=== PATIENT | male | born 1970 | race Caucasian/White ===

== ENCOUNTER 2016-11-03 18:52 | Inpatient (IN) | payer OTHER ==
[~2016-11-03] VITALS: Ht 172.7 cm; Wt 135.0 kg
[~2016-11-03 18:52] MED LIST: ALLO300T2 PO; ASPEC81 PO; COLC0.6T54 PO; FRS/40 PO; INSU1.2I SC; LCTX PO; LEVA1.255 NEB; MAGN400T6 PO; METO50TA16 PO; NRN600 PO; NVLGI/PEN SC; NYST100010 TOP; OXYC-164 PO; POTA20TA13 PO; PRT/40 PO; RRIPRATNEB NEB; WARF-246 PO
[2016-11-03 20:11] LABS: URINE APPEARANCE CLOUDY (CLEAR); URINE BILIRUBIN NEG (NEG); URINE COLOR YELLOW; URINE EPITHELIAL CELL AUTO 20-30 /lpf (0-5); URINE NITRITE NEG (NEG); URINE SPECIFIC GRAVITY 1.009 (1.000-1.030); UROBILINOGEN NEG (NEG); ZZUR CULT IF INDIC CLEAN CATCH YES
[2016-11-03 20:14] LABS: BASO % 0.4 %; BASO ABS # 0.04 K/uL (0-0.2); COMPLETE YES; EOS % 1.6 %; HEMATOCRIT 48.1 % (42-52); IG% 0.3 %; LYMPH ABS # 1.22 K/uL (1.2-3.4); MEAN CELL VOLUME 92.7 fL (80-100); MEAN CORPUSCULAR HEMOGLOBIN 31.8 pg (25-34); MEAN CORPUSCULAR HGB CONC 34.3 g/dl (32-36); MEAN PLATELET VOLUME 9.7 fL (7.4-10.4); MONO % 4.5 %; NEUT % 82.2 %; PLATELET COUNT 176 K/uL (130-400); RED BLOOD COUNT 5.19 M/uL (4.7-6.1)
[2016-11-03 20:16] LABS: MANUAL MICROSCOPIC REQUIRED? NO; REVIEW REQ? NO
[2016-11-03] MEDS ORDERED: METO25TA56 PO (20:58)
[2016-11-03 21:02] LABS: INR 1.9 (0.9-1.1); PARTIAL THROMBOPLASTIN RATIO 1.5; PROTHROMBIN TIME (PATIENT) 21.1 SECONDS (9.0-12.0)
--- NOTE | 2016-11-03 21:35 | EMERGENCY ROOM VISIT NOTE ---
ED Visit Note First contact with patient: 19:05 Patient was seen by our PA/HEAD OF [employer]. I was involved in the patient's care and did evaluate the patient myself. I was involved in the care throughout the ER stay. The patient presents with hematuria. He is on anticoagulants. A workup for hematuria has been ordered, the results are pending. Abdominal and pelvis CT is pending. The patient does not seem in distress, he is not febrile. If the patient's workup is benign, he will need to follow with urology for further testing, possibly a cystoscopy. If his workup is positive, admission may be required.
--- NOTE | 2016-11-03 21:38 | DIAGNOSTIC IMAGING REPORT ---
ABDOMEN AND PELVIS CT WITHOUT CONTRAST CT DOSE: 1994.92 mGy.cm HISTORY: Hematuria, right flank pain TECHNIQUE: Multiaxial CT images of the abdomen and pelvis were performed without the use of intravenous and oral contrast according to the standard department stone protocol. COMPARISON STUDY: Abdomen and pelvis CT 01/19/2016. FINDINGS: Bibasilar densities likely represent atelectasis. This remains unchanged. Poststernotomy changes. Multiple nondilated small bowel loops adherent to be anterior abdominal wall. Evidence for prior multiple midline incisions. Scarlike density within the right groin. Left-sided sacral decubitus ulcer with a fluid tract abutting the left posterior sacrum. There suggestive of a small focal erosion within the left posterior sacrum suggestive of osteomyelitis. Hepatic steatosis. The gallbladder is decompressed. The spleen, adrenal glands, and pancreas are unremarkable. Bilateral nephrolithiasis, unchanged. Mild fullness within the right renal collecting system and proximal right ureter without maddy hydronephrosis. There are no ureteral calculi identified. Bladder wall thickening, unchanged. Subtotal colectomy with the left lower quadrant colostomy containing the residual sigmoid colon. There is also a right lower quadrant ileostomy with a small parastomal hernia. No definite bowel wall thickening or obstruction. However, there are suboptimal evaluation for bowel pathology due to the lack of intravenous and oral contrast. IMPRESSION: 1. Bilateral nephrolithiasis. Mild fullness within the right renal collecting system without maddy hydronephrosis. No ureteral calculi identified. 2. Postoperative changes as described above. No definite bowel wall thickening or obstruction. 3. Left-sided sacral decubitus ulcer with a small fluid tract abutting the left posterior sacrum. There appears to be focal erosion of the left posterior sacrum suggestive of osteomyelitis. 4. Additional findings as described above. Electronically signed by: Ronnie Abad M.D. 11/03/2016 9:36 PM Dictated Date/Time: 11/03/2016 9:27 PM
[2016-11-03 21:50] LABS: BUN/CREATININE RATIO 21.3 (10-20); CALCIUM 9.1 mg/dl (8.5-10.1); CKMB/CK RATIO 3.2 (0-3.0); CREATININE 1.2 mg/dl (0.60-1.40)
[2016-11-03] MEDS ORDERED: PIPERACILLIN/TAZOBACTAM 4.5 GM/100ML D5W IV STA (23:02)
[2016-11-03] MEDS ORDERED: SODIUM CHLORIDE 0.9% 1000ML 1,000 ML IV STA (23:56)
[2016-11-04] VITALS (7 sets, daily range): BP systolic 120–146; BP diastolic 74–97; PULSE 81–94; TEMP 36.7–36.8; O2SAT 93–96; Ht 172.7 cm; Wt 135.0 kg
[2016-11-04] MEDS ORDERED: NYSTATIN POWDER 15GM BTL EXT PRN (00:30)
[2016-11-04] MEDS ORDERED: MAGNESIUM HYDROXIDE SUSP 30 ML UDC PO PRN (00:45)
[2016-11-04] MEDS ORDERED: POLYETHYLENE (MIRALAX) 17 GM PACK PO PRN (00:45)
[2016-11-04] MEDS ORDERED: ALUMINUM/MAGNESIUM/SIMETH (MAALOX MAX) 30 ML UDC PO PRN (00:45)
[2016-11-04] MEDS ORDERED: ONDANSETRON INJ 2 MG/ML 2 ML VIAL IV PRN (00:45)
[2016-11-04] MEDS ORDERED: ACETAMINOPHEN 325 MG TAB PO PRN (00:45)
--- NOTE | 2016-11-04 00:50 | History and Physical ---
History & Physical Date & Time of Service: Nov 04, 2016 at 00:37 Chief Complaint: Blood In Urine Primary Care Physician: Demarcus Nicholson D.O. 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 Pt presents with a chief complaint of hematuria. He has not had fevers or rigors but states that when he develops UTIs he may quickly become septic and requires IV antibiotics. He has been life-flighted to [place] on [address] of the abdomen and pelvis was obtained in the ER possibly owing to his hematuria. This revealed B/L nephrolithiasis and mild renal fullness without evidence of obstruction. Additionally and incidentally there may be osteomyelitis associated with a sacral decub which clinically did not appear significant. The pt does not appear toxic but will be admitted for IV antibiotics pending culture results due to his histroy. 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 3) CVA - R weakness and paraplegia 4) Morbid obesity 5) Hep C 6) Gout 7) Severe pulmonary hypertension 8) PE 9) R sided CHF 10) DM 2 Surgical Problems: (1) H/O brain surgery Status: Resolved (2) Hx of CABG Status: Resolved (3) S/P cardiac cath Status: Chronic (4) S/P colostomy Status: Chronic 5) Mitral valve repair - 06/20/16 Family History Cancer Diabetes mellitus Gallbladder disease Heart disease Hypertension Kidney disease Lung disease Social History Smoking Status: Never Smoker Drug Use: other Marital Status: Housing status: lives with family Occupational Status: disabled Immunizations History of Influenza Vaccine: No History of Tetanus Vaccine?: Yes Tetanus Immunization Date: Jun 01, 2007 History of Pneumococcal: No History of Hepatitis B Vaccine: Unknown Multi-Drug Resistant Organisms History of MDRO: Yes Type of MDRO: MRSA Allergies Coded Allergies: No Known Allergies (Verified , 11/03/16) Home Medications Scheduled Allopurinol (Zyloprim), 300 MG PO DAILY Aspirin (Aspirin EC Low Dose), 81 MG PO QAM Colchicine (Colchicine), 0.6 MG PO DAILY Furosemide (Lasix), 40 MG PO DAILY Gabapentin (Gabapentin), 600 MG PO TID Insulin Aspart (Novolog Flexpen), 40 UNITS SC DAILY Insulin Glargine (Toujeo Solostar), 100 UNITS SC BID Ipratropium Florence (Ipratropium Florence), 0.5 MG NEB Q6HWA Lactobacillus Acidophilus (Lactinex), 1 TAB PO DAILY Magnesium Oxide (Mag-Ox), 400 MG PO DAILY Metoprolol Tartrate (Lopressor) (Lopressor), 25 MG PO DAILY Pantoprazole (Pantoprazole Sodium), 40 MG PO DAILY Potassium Chloride Microencaps (Potassium Chloride Er), 20 MEQ PO DAILY Warfarin Sodium (Warfarin Sodium), 5 MG PO DAILY Scheduled PRN Ipratropium [place] (Ipratropium Florence), 2.5 MG NEB Q2-4HRS PRN for SOB/ Wheezing Levalbuterol Hcl (Levalbuterol), 1.25 MG NEB Q6HWA PRN Levalbuterol Hcl (Levalbuterol), 1.25 MG NEB Q2-4HRS PRN for SOB/Wheezing Nystatin (Topical) (Nystop), 1 APPLN TOP BID PRN for Affected Skin Folds Oxycodone Hcl (Oxycodone Hcl), 10 MG PO 5XD PRN for Pain Review of Systems Constitutional: No chills, No fever, No sweats Eyes: No eye pain, No worsening of vision ENT: No hearing loss, No nasal symptoms, No unusual epistaxis Respiratory: No cough, No sputum, No wheezing Cardiovascular: No PND, No chest pain, No orthopnea Abdomen: No nausea, No pain, No vomiting Musculoskeletal: No joint pain, No muscle pain Genitourinary - Male: + dysuria, + hematuria, No urinary frequency, No urinary urgency Neurologic: + paralysis (chronic LE paralysis), No memory loss Psychiatric: No anhedonism, No depression symptoms Endocrine: No fatigue Hematologic / Lymphatic: + abnormal bleeding/bruising Integumentary: No rash Allergic / Immunologic: No environmental allergies Physical Exam Vital Signs Date Time Temp Pulse Resp B/P Pulse Ox O2 Delivery O2 Flow Rate FiO2 11/03/16 23:21 86 18 98/60 92 Room Air 11/03/16 21:13 87 18 119/70 93 Room Air 11/03/16 18:59 37.1 89 18 136/89 95 Room Air General Appearance: WD/WN, no apparent distress, + pertinent finding (Morbidly obese young make in no distress) Head: normocephalic, atraumatic Eyes: normal inspection, PERRL, EOMI ENT: normal ENT inspection, hearing grossly normal, TMs normal, pharynx normal Neck: supple, no adenopathy, thyroid normal Respiratory/Chest: chest non-tender, lungs clear Cardiovascular: regular rate, rhythm, no murmur, normal peripheral pulses Abdomen/GI: normal bowel sounds, non tender, soft Back: normal inspection, no CVA tenderness Extremities/Musculoskelatal: no calf tenderness, normal capillary refill, + pedal edema 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, oriented x 3, + pertinent finding ( Chronic R weakness and LE paralysis) Skin: normal color, warm/dry, no rash (Stage 1 decub ulcer - no cratering or excoriation - surface) Diagnostics Laboratory Results Results Past 24 Hours Test 11/03/16 19:45 Range/Units White Blood Count 11.10 4.8-10.8 K/uL Red Blood Count 5.19 4.7-6.1 M/uL Hemoglobin 16.5 14.0-18.0 g/dL Hematocrit 48.1 42-52 % Mean Corpuscular Volume 92.7 80-100 fL Mean Corpuscular Hemoglobin 31.8 25-34 pg Mean Corpuscular Hemoglobin Concent 34.3 32-36 g/dl Platelet Count 176 130-400 K/uL Mean Platelet Volume 9.7 7.4-10.4 fL Neutrophils (%) (Auto) 82.2 % Lymphocytes (%) (Auto) 11.0 % Monocytes (%) (Auto) 4.5 % Eosinophils (%) (Auto) 1.6 % Basophils (%) (Auto) 0.4 % Neutrophils # (Auto) 9.13 1.4-6.5 K/uL Lymphocytes # (Auto) 1.22 1.2-3.4 K/uL Monocytes # (Auto) 0.50 0.11-0.59 K/uL Eosinophils # (Auto) 0.18 0-0.5 K/uL Basophils # (Auto) 0.04 0-0.2 K/uL RDW Standard Deviation 55.2 36.4-46.3 fL RDW Coefficient of Variation 16.3 11.5-14.5 % Immature Granulocyte % (Auto) 0.3 % Immature Granulocyte # (Auto) 0.03 0.00-0.02 K/uL Prothrombin Time 21.1 9.0-12.0 SECONDS Prothromb Time International Ratio 1.9 0.9-1.1 Activated Partial Thromboplast Time 37.7 21.0-31.0 SECONDS Partial Thromboplastin Ratio 1.5 Urine Color YELLOW Urine Appearance CLOUDY CLEAR Urine pH 5.0 4.5-7.5 Urine Specific Economy 1.009 1.000-1.030 Urine Protein 2+ NEG Urine Glucose (UA) NEG NEG Urine Ketones NEG NEG Urine Occult Blood 3+ NEG Urine Nitrite NEG NEG Urine Bilirubin NEG NEG Urine Urobilinogen NEG NEG Urine Leukocyte Esterase MODERATE NEG Urine WBC (Auto) >30 0-5 /hpf Urine RBC (Auto) 10-30 0-4 /hpf Urine Hyaline Casts (Auto) 1-5 0-5 /lpf Urine Epithelial Cells (Auto) 20-30 0-5 /lpf Urine Bacteria (Auto) NEG NEG Sodium Level 138 136-145 mmol/L Potassium Level 4.0 3.5-5.1 mmol/L Chloride Level 104 98-107 mmol/L Carbon Dioxide Level 22 21-32 mmol/L Anion Gap 12.0 3-11 mmol/L Blood Urea Nitrogen 26 7-18 mg/dl Creatinine 1.20 0.60-1.40 mg/dl Est Creatinine Clear Calc Drug Dose 105.6 ml/min Estimated GFR () 84.7 Estimated GFR (Non- 73.1 BUN/Creatinine Ratio 21.3 10-20 Random Glucose 168 70-99 mg/dl Calcium Level 9.1 8.5-10.1 mg/dl Total Creatine Kinase 126 39-308 U/L Creatine Kinase MB 4.0 0.5-3.6 ng/ml Creatine Kinase MB Ratio 3.2 0-3.0 Microbiology Results 11/03/16 Urine Culture, Received Pending Diagnostic Radiology CT abdomen/pelvis 1. Bilateral nephrolithiasis. Mild fullness within the right renal collecting system without maddy hydronephrosis. No ureteral calculi identified. 2. Postoperative changes as described above. No definite bowel wall thickening or obstruction. 3. Left-sided sacral decubitus ulcer with a small fluid tract abutting the left posterior sacrum. There appears to be focal erosion of the left posterior sacrum suggestive of osteomyelitis. 4. Additional findings as described above. 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 Pt presents with a chief complaint of hematuria. He has not had fevers or rigors but states that when he develops UTIs he may quickly become septic and requires IV antibiotics. A CT of the abdomen and pelvis was obtained in the ER possibly owing to his hematuria. This revealed B/L nephrolithiasis and mild renal fullness without evidence of obstruction. Additionally and incidentally there may be osteomyelitis associated with a sacral decub which clinically did not appear significant. 1) UTI, hematuria - Will treat with Zosyn pending culture results - there is no evidence of obstruction however if his hematuria does not clear Urology should be consulted. We may need to hold COumadin although his INR is not particularly high. 2) Sacral decub - evidence of osteomyelitis on CT - surgery consulted - he does have a history of a decub which he states he developed in [place] during a prolonged admission. This is more likely chronic although it may need treatment regardless. 3) Chronic respiratory failure - cont 02, CPAP, breathing treatments as needed. 4) CHF - 2/2 pulmonary HTN - Cont diuretics 5) History of PE - INR therapeutic - cont Coumadin Full code - Coumadin anticoagulation Total time for this admit including review of labs, records, imaging, meds - discussion with pts and ER attending - 40 min Level of Care Med/Surg Resuscitation Status FULL RESUSCITATION VTE Prophylaxis Given or contraindicated: Warfarin (Coumadin)
--- NOTE | 2016-11-04 00:59 | EMERGENCY ROOM VISIT NOTE ---
History First contact with patient: 19:05 Chief Complaint: URINARY SYMPTOMS Stated Complaint: BLOOD IN URINE Nursing Triage Summary: Pt reports his urine was discolored and he went to urgent care. Told he had blood and WBCS in urine. Per familys urging pt came to ED for further testing. History of Present Illness The patient is a 46 year old male who presents to the Emergency Room via private vehicle with complaints of "blood in urine". The patient states that he was at the acute care in [place] as he had noticed blood in his urine today around 12:30 PM. He states that he did have testing done there but was informed that it would take some time to have the results therefore decided to come to the emergency department for more definitive management. He is on Coumadin. He states that the urine has been dark, with a lot of blood in it since that time. He feels that there've been also consult blood in the urine sample. He does state that he has had a lot of urinary tract infections in the past. He does have a history of endocarditis. He believes there is a small amount of pain overlying the right posterior kidney region. At this time he denies any penile pain, abdominal pain, chest pain, shortness of breath, fevers , chills, testicular pain, penile discharge. Review of Systems A complete 10-point Review of Systems was discussed with the patient, with pertinent positives and negatives listed in the History of Present Illness. All remaining Review of Systems questions can be considered negative unless otherwise specified. Past Medical/Surgical History Medical Problems: (1) Bilateral lower leg cellulitis (2) CHF (congestive heart failure) (3) Coagulopathy (4) Diabetic nephropathy (5) DM type 2 (diabetes mellitus, type 2) (6) E coli infection (7) Edema of right lower extremity (8) Endocarditis (9) Gout (10) Gout (11) Hematuria (12) Hepatitis C (13) Leg pain, bilateral (14) Nocturnal hypoxemia (15) Paraplegia (16) Pneumonia (17) Pneumonia (18) Pulmonary emboli (19) Shortness of breath (20) Stroke (21) Supratherapeutic INR (22) UTI (urinary tract infection) Surgical Problems: (1) H/O brain surgery (2) Hx of CABG (3) S/P cardiac cath (4) S/P colostomy Family History Cancer Diabetes mellitus Gallbladder disease Heart disease Hypertension Kidney disease Lung disease Social History Smoking Status: Never Smoker Alcohol Use: none Drug Use: other Marital Status: Housing Status: lives with family Occupation Status: disabled Current/Historical Medications Scheduled Allopurinol (Zyloprim), 300 MG PO DAILY Aspirin (Aspirin EC Low Dose), 81 MG PO QAM Colchicine (Colchicine), 0.6 MG PO DAILY Furosemide (Lasix), 40 MG PO DAILY Gabapentin (Gabapentin), 600 MG PO TID Insulin Aspart (Novolog Flexpen), 40 UNITS SC DAILY Insulin Glargine (Toujeo Solostar), 100 UNITS SC BID Ipratropium Warthen (Ipratropium Warthen), 0.5 MG NEB Q6HWA Lactobacillus Acidophilus (Lactinex), 1 TAB PO DAILY Magnesium Oxide (Mag-Ox), 400 MG PO DAILY Metoprolol Tartrate (Lopressor) (Lopressor), 25 MG PO DAILY Pantoprazole (Pantoprazole Sodium), 40 MG PO DAILY Potassium Chloride Microencaps (Potassium Chloride Er), 20 MEQ PO DAILY Warfarin Sodium (Warfarin Sodium), 5 MG PO DAILY Scheduled PRN Ipratropium [place]arthen (Ipratropium [place]), 2.5 MG NEB Q2-4HRS PRN for SOB/ Wheezing Levalbuterol Hcl (Levalbuterol), 1.25 MG NEB Q6HWA PRN Levalbuterol Hcl (Levalbuterol), 1.25 MG NEB Q2-4HRS PRN for SOB/Wheezing Nystatin (Topical) (Nystop), 1 APPLN TOP BID PRN for Affected Skin Folds Oxycodone Hcl (Oxycodone Hcl), 10 MG PO 5XD PRN for Pain Allergies Coded Allergies: No Known Allergies (Verified , 11/03/16) Physical Exam Vital Signs Date Time Temp Pulse Resp B/P Pulse Ox O2 Delivery O2 Flow Rate FiO2 11/03/16 23:21 86 18 98/60 92 Room Air 11/03/16 21:13 87 18 119/70 93 Room Air 11/03/16 18:59 37.1 89 18 136/89 95 Room Air Physical Exam VITAL SIGNS - Vital signs and nursing notes were reviewed. Patient is afebrile , normotensive, non-tachycardic and is saturating well on room air at 95%. GENERAL -46-year-old male appearing his stated age who is in no acute distress. Communicates well with provider and answers questions appropriately. SKIN - Without rashes. No petechial rashes. The buttocks region does reveal a left medial healing ulcer. There is slight erythema without evidence of drainage. HEAD - NC/AT. EYES - Sclera anicteric. Palpebral conjunctiva pink and moist with no injection noted. EARS - No deformities of external structures noted on gross examination bilaterally. NOSE - Midline and without cyanosis. No epistaxis or purulent drainage noted. MOUTH/OROPHARYNX - Without perioral cyanosis. LUNGS - Chest wall symmetric without accessory muscle use, intercostals retractions, or central cyanosis. Normal vesicular breath sounds CTA B/L. No wheezes, rales, or rhonchi appreciated. CARDIAC - RRR with S1/S2. No murmur, rubs, or gallops appreciated. ABDOMEN - Abdominal contour without pulsations or visible masses. BS normoactive all four quadrants. No tenderness, palpable masses, hepatosplenomegaly, or ascites noted. EXTREMITIES - No clubbing or peripheral cyanosis. No pretibial edema present. Medical Decision & Procedures ER Provider Diagnostic Interpretation: ABDOMEN AND PELVIS CT WITHOUT CONTRAST CT DOSE: 1994.92 mGy.cm HISTORY: Hematuria, right flank pain TECHNIQUE: Multiaxial CT images of the abdomen and pelvis were performed without the use of intravenous and oral contrast according to the standard department stone protocol. COMPARISON STUDY: Abdomen and pelvis CT 01/19/2016. FINDINGS: Bibasilar densities likely represent atelectasis. This remains unchanged. Poststernotomy changes. Multiple nondilated small bowel loops adherent to be anterior abdominal wall. Evidence for prior multiple midline incisions. Scarlike density within the right groin. Left-sided sacral decubitus ulcer with a fluid tract abutting the left posterior sacrum. There suggestive of a small focal erosion within the left posterior sacrum suggestive of osteomyelitis. Hepatic steatosis. The gallbladder is decompressed. The spleen, adrenal glands, and pancreas are unremarkable. Bilateral nephrolithiasis, unchanged. Mild fullness within the right renal collecting system and proximal right ureter without maddy hydronephrosis. There are no ureteral calculi identified. Bladder wall thickening, unchanged. Subtotal colectomy with the left lower quadrant colostomy containing the residual sigmoid colon. There is also a right lower quadrant ileostomy with a small parastomal hernia. No definite bowel wall thickening or obstruction. However, there are suboptimal evaluation for bowel pathology due to the lack of intravenous and oral contrast. IMPRESSION: 1. Bilateral nephrolithiasis. Mild fullness within the right renal collecting system without maddy hydronephrosis. No ureteral calculi identified. 2. Postoperative changes as described above. No definite bowel wall thickening or obstruction. 3. Left-sided sacral decubitus ulcer with a small fluid tract abutting the left posterior sacrum. There appears to be focal erosion of the left posterior sacrum suggestive of osteomyelitis. 4. Additional findings as described above. Electronically signed by: Ronnie Abad M.D. 11/03/2016 9:36 PM Dictated Date/Time: 11/03/2016 9:27 PM Laboratory Results 11/03/16 19:45 Red Blood Count 5.19, Mean Corpuscular Volume 92.7, Mean Corpuscular Hemoglobin 31.8, Mean Corpuscular Hemoglobin Concent 34.3, Mean Platelet Volume 9.7, Neutrophils (%) (Auto) 82.2, Lymphocytes (%) (Auto) 11.0, Monocytes (%) (Auto) 4.5, Eosinophils (%) (Auto) 1.6, Basophils (%) (Auto) 0.4, Neutrophils # (Auto) 9.13, Lymphocytes # (Auto) 1.22, Monocytes # (Auto) 0.50, Eosinophils # (Auto) 0.18, Basophils # (Auto) 0.04 11/03/16 19:45 Test 11/03/16 19:45 White Blood Count 11.10 K/uL (4.8-10.8) Red Blood Count 5.19 M/uL (4.7-6.1) Hemoglobin 16.5 g/dL (14.0-18.0) Hematocrit 48.1 % (42-52) Mean Corpuscular Volume 92.7 fL (80-100) Mean Corpuscular Hemoglobin 31.8 pg (25-34) Mean Corpuscular Hemoglobin Concent 34.3 g/dl (32-36) Platelet Count 176 K/uL (130-400) Mean Platelet Volume 9.7 fL (7.4-10.4) Neutrophils (%) (Auto) 82.2 % Lymphocytes (%) (Auto) 11.0 % Monocytes (%) (Auto) 4.5 % Eosinophils (%) (Auto) 1.6 % Basophils (%) (Auto) 0.4 % Neutrophils # (Auto) 9.13 K/uL (1.4-6.5) Lymphocytes # (Auto) 1.22 K/uL (1.2-3.4) Monocytes # (Auto) 0.50 K/uL (0.11-0.59) Eosinophils # (Auto) 0.18 K/uL (0-0.5) Basophils # (Auto) 0.04 K/uL (0-0.2) RDW Standard Deviation 55.2 fL (36.4-46.3) RDW Coefficient of Variation 16.3 % (11.5-14.5) Immature Granulocyte % (Auto) 0.3 % Immature Granulocyte # (Auto) 0.03 K/uL (0.00-0.02) Prothrombin Time 21.1 SECONDS (9.0-12.0) Prothromb Time International Ratio 1.9 (0.9-1.1) Activated Partial Thromboplast Time 37.7 SECONDS (21.0-31.0) Partial Thromboplastin Ratio 1.5 Urine Color YELLOW Urine Appearance CLOUDY (CLEAR) Urine pH 5.0 (4.5-7.5) Urine Specific [place] 1.009 (1.000-1.030) Urine Protein 2+ (NEG) Urine Glucose (UA) NEG (NEG) Urine Ketones NEG (NEG) Urine Occult Blood 3+ (NEG) Urine Nitrite NEG (NEG) Urine Bilirubin NEG (NEG) Urine Urobilinogen NEG (NEG) Urine Leukocyte Esterase MODERATE (NEG) Urine WBC (Auto) >30 /hpf (0-5) Urine RBC (Auto) 10-30 /hpf (0-4) Urine Hyaline Casts (Auto) 1-5 /lpf (0-5) Urine Epithelial Cells (Auto) 20-30 /lpf (0-5) Urine Bacteria (Auto) NEG (NEG) Anion Gap 12.0 mmol/L (3-11) Est Creatinine Clear Calc Drug Dose 105.6 ml/min Estimated GFR () 84.7 Estimated GFR (Non- 73.1 BUN/Creatinine Ratio 21.3 (10-20) Calcium Level 9.1 mg/dl (8.5-10.1) Total Creatine Kinase 126 U/L (39-308) Creatine Kinase MB 4.0 ng/ml (0.5-3.6) Creatine Kinase MB Ratio 3.2 (0-3.0) Medications Administered Medications (Trade) Dose Ordered Sig/Alvaro Route Start Time Stop Time Status Last Admin Dose Admin Piperacillin Sod/ Tazobactam Sod 4.5 gm 4.5 gm NOW STAT IV 11/03/16 23:02 11/03/16 23:08 DC 11/03/16 23:21 4.5 GM Sodium Chloride (Nss 1000ml) 1,000 ml @ 200 mls/hr Q5H STAT IV 11/03/16 23:56 11/04/16 04:55 11/04/16 00:25 200 MLS/HR Medical Decision Patient was seen and evaluated as above. After obtaining a thorough history and physical examination, IV access was initiated and the above workup was performed. The patient presents with painless hematuria, extensive history of UTI as well as being on Coumadin. Laboratory results reveal leukocytosis at 11.1, no significant anemia. INR is subtherapeutic at 1.9. PRP reveals elevated BUN at 26, random glucose at 168, and CK-MB elevated at 4.0. Patient denies chest pain. Urine does reveal 3+ occult blood, moderate leukocyte esterase, greater than 30 white blood cells, 10-20 red blood cells, with evidence of epithelial cells. Patient's abdomen and pelvis CT reveals Bilateral nephrolithiasis. Mild fullness within the right renal collecting system without maddy hydronephrosis. No ureteral calculi identified and Left- sided sacral decubitus ulcer with a small fluid tract abutting the left posterior sacrum. There appears to be focal erosion of the left posterior sacrum suggestive of osteomyelitis. The case was also discussed with my attending. Because of the potential osteomyelitis, concern for early pyelonephritis with urinary tract infection, subtherapeutic INR and painless hematuria given the patient's chronic comorbidities as well as past history of rapid progression to sepsis I do believe that inpatient admission is warranted. 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 He was provided with the option, but ultimately decided to stay for further evaluation and management. I do believe this is reasonable. He was given 4.5 grams of Zosyn for his suspected osteomyelitis from. Treatment, as well as potential kidney infection. I did discuss the case with the admitting team, specifically Dr. Perez, who personally evaluated the patient and agreed to admit the patient. Please refer further evaluation and management regarding his stay. I did elect to order 1 L of normal saline at 200 mL's per hour to help hydrate the patient. In the evaluation treatment this patient the following differential diagnoses were entertained: UTI, pyelonephritis, hemorrhagic cystitis, bladder mass, renal calculi, supratherapeutic INR, sepsis, decubitus ulcer, osteomyelitis, among others. Impression Primary Impression: Urinary tract infection Additional Impressions: Hematuria Subtherapeutic anticoagulation Decubitus skin ulcer osteomyelitis suggested on CT scan Departure Information Dispostion Admitted as an inpatient Condition FAIR Referrals Demarcus Nicholson D.O. (PCP) Patient Instructions My [facility] Problem Qualifiers
[2016-11-04] MEDS ORDERED: LEVALBUTEROL 1.25MG/0.5ML NEB INH PRN (01:30)
[2016-11-04] MEDS ORDERED: PIPERACILL/TAZOBAC CONSULT ACTIVE PRN (02:45)
[2016-11-04] MEDS ORDERED: NURSING VERBAL MED ORDER ONE (03:45)
[2016-11-04] MEDS: DAPTOmycin IV 550 MG in SODIUM CHLORIDE 0.9% 50ML 50 ML IV SCH (03:45)
[2016-11-04] MEDS ORDERED: WARFARIN SOD 5 MG TAB PO ONE (04:00)
[2016-11-04] MEDS ORDERED: INSULIN ASPART 100 UNITS/ML 3 ML PEN SC SCH (04:45)
[2016-11-04] MEDS ORDERED: PHARMACY GLYCEMIC MGMT CONSULT PRN (04:45)
--- NOTE | 2016-11-04 04:46 | Pharmacy Progress Note ---
Glycemic Control Intl Consult Date of Service Nov 04, 2016. Scope Glycemic Pharmacist consulted by Dr Whiting on 11/04/16 for glycemic control and to write orders per [facility] inpatient glycemic control protocol Objective Weight (Kilograms): 135.000 Accuchecks BSG (last 24hrs): Test 11/03/16 19:45 Random Glucose 168 mg/dl (70-99) Laboratory Data (last 24hrs) Test 11/03/16 19:45 Anion Gap 12.0 mmol/L BUN/Creatinine Ratio 21.3 Blood Urea Nitrogen 26 mg/dl Creatinine 1.20 mg/dl Potassium Level 4.0 mmol/L Sodium Level 138 mmol/L White Blood Count 11.10 K/uL Red Blood Count 5.19 M/uL Hemoglobin 16.5 g/dL Hematocrit 48.1 % Mean Corpuscular Volume 92.7 fL Mean Corpuscular Hemoglobin 31.8 pg Mean Corpuscular Hemoglobin Concent 34.3 g/dl Platelet Count 176 K/uL Mean Platelet Volume 9.7 fL Neutrophils (%) (Auto) 82.2 % Lymphocytes (%) (Auto) 11.0 % Monocytes (%) (Auto) 4.5 % Eosinophils (%) (Auto) 1.6 % Basophils (%) (Auto) 0.4 % Neutrophils # (Auto) 9.13 K/uL Lymphocytes # (Auto) 1.22 K/uL Monocytes # (Auto) 0.50 K/uL Eosinophils # (Auto) 0.18 K/uL Basophils # (Auto) 0.04 K/uL Recent Pertinent Medications Outpatient Anti-diabetic Regimen: * Toujeo (insulin glargine U-300) 100 units SQ BID * NovoLog (insulin aspart U-100) 40 units SQ with meals The patient is currently receiving: * Basal insulin: * Toujeo 100 units SQ BID (non-formulary) * Correctional Insulin: * NovoLog Correction per scale AC/HS - Goal Range: Low 120 mg/dL - High 160 mg/dL - Correction Factor: 40 mg/dL/unit * Prandial insulin: - Per carb ratio of 1 unit per -- grams CHO consumed Risk Factors for Insulin Resistance: * Infection: UTI/pyelonephritis, r/o osteomyelitis - current ABX include Zosyn and Cubicin * Diet: T2DM/AHA * Large doses of insulin as an outpatient Risk Factors for Insulin Sensitivity: Assessment & Plan ASSESSMENT: * ADA & AACE recommend a goal blood sugar range 140-180 mg/dl for the majority of critically ill & non-critically ill patients. However, more stringent targets may be selected in individual cases. Lower goal range will be utilzied for a non-elderly patient with infection (to aide wound healing). 11/04/16 * 46 y/o type II diabetic known to the glycemic service from prior admissions - the most recent in March 2016 * Large doses of basal/bolus insulins used as an outpatient (>300u/day) with unknown control (A1c >3 months old) * BSG on admission reasonable at 168mg/dL on PRP * Toujeo taken 11/03 (unsure what time) * Current inpatient regimen may not provide enough insulin for Mr. Grajeda * Tighten NovoLog parameters * Toujeo non-formulary * transition to Lantus while hospitalized * A1c - outdated * order with AM labs PLAN FOR INPATIENT GLYCEMIC CONTROL: * Discontinue Toujeo at this time * Begin Lantus SQ BID * if BSG is below 120mg/dL - give 50 units of Lantus * if BSG is 120mg/dL or above - give 75 units of Lantus - Lantus doses based on home dose of 300u/day as well as historical admission * Continue NovoLog SQ AC and HS * add Accu-check today at 0445 * Tighten correction factor to 7mg/dL/unit * ADD carb ratio of 1 unit per 3 g of CHO consumed - CF/CR based on prior admission data * Goal range 110-140mg/dL (per above) * A1c - ordered with AM labs * add to discharge instructions RECOMMENDATIONS FOR DISCHARGE: * awaiting disposition * Please note that the plan above was derived based on current level of insulin resistance and hospital stress. These recommendations are appropriate for inpatient admission only. Plan of care upon discharge will need to be reassessed to avoid potential outpatient hypo/hyperglycemia. Thank you.
[2016-11-04] MEDS: PIPERACILL/TAZOBAC IV 4.5 GM in DEXTROSE 5% 100ML 100 ML IV SCH ×3 (04:47→21:17)
[2016-11-04] MEDS ORDERED: PNEUMOCOCCAL POLYSACCHARIDES 25 MCG/0.5 ML VIAL/SYR IM. ONE (05:00)
[2016-11-04] MEDS ORDERED: PNEUMOCOCCAL ADMINISTRATION CHARGE ONE (05:00)
[2016-11-04] MEDS ORDERED: TNR25 PO (05:18)
[2016-11-04] MEDS: IPRATROPIUM BROMIDE NEB SOLN 0.02% 2.5 ML VIAL INH SCH ×3 (07:45→23:32)
[2016-11-04] MEDS ORDERED: INSULIN GLARGINE 100 UNIT SC SCH (08:00)
[2016-11-04] MEDS: GABAPENTIN 600 MG TAB PO SCH ×3 (08:38→21:24)
[2016-11-04] MEDS: MAGNESIUM OXIDE 400 MG TAB PO SCH (08:38)
[2016-11-04] MEDS: PANTOprazole SOD 40 MG TAB PO SCH (08:39)
[2016-11-04] MEDS: COLCHICINE 0.6 MG TAB PO SCH (08:39)
[2016-11-04] MEDS: POTASSIUM CHLORIDE 20 MEQ TABCR PO SCH (08:39)
[2016-11-04] MEDS: ALLOPURINOL 300 MG TAB PO SCH (08:39)
[2016-11-04] MEDS: FUROSEMIDE 40 MG TAB PO SCH (08:40)
[2016-11-04] MEDS: ASPIRIN 81 MG ECTAB PO SCH (08:40)
[2016-11-04] MEDS: INSULIN ASPART 100 UNITS/ML 3 ML PEN SC SCH ×4 (09:14→21:33)
[2016-11-04] MEDS: INSULIN GLARGINE SC SCH ×2 (09:15→21:32)
[2016-11-04] MEDS: OXYCODONE HCL IR 5 MG TAB (IMMEDIATE RELEASE) PO PRN ×2 (10:44→17:42)
--- NOTE | 2016-11-04 10:48 | Progress Note ---
Progress Note Date of Service Nov 04, 2016. Progress Note ID consult dictated #[id number] A/P: 1. Asymptomatic bacteruria 2. Sacral wound - chronic -no evidence of uti, can stop abx -follows with wound center in [place], he agreeable to follow with them post d/c -Would suggest outpt follow up with wound center to eval for further debridement , he would like to be d/c home -thank you
[2016-11-04 11:01] LABS: BASO % 0.5 %; BASO ABS # 0.03 K/uL (0-0.2); COMPLETE YES; EOS % 2.5 %; HEMATOCRIT 44.8 % (42-52); IG% 0.2 %; LYMPH % 10.4 %; LYMPH ABS # 0.66 K/uL (1.2-3.4); MEAN CELL VOLUME 90.7 fL (80-100); MEAN CORPUSCULAR HEMOGLOBIN 30.4 pg (25-34); MEAN CORPUSCULAR HGB CONC 33.5 g/dl (32-36); MEAN PLATELET VOLUME 9.8 fL (7.4-10.4); MONO % 5.2 %; NEUT % 81.2 %; PLATELET COUNT 174 K/uL (130-400); RED BLOOD COUNT 4.94 M/uL (4.7-6.1); WHITE BLOOD COUNT 6.37 K/uL (4.8-10.8)
--- NOTE | 2016-11-04 11:02 | Urology Consultation ---
History General Date of Service: Nov 04, 2016. Primary Care Physician: Demarcus Nicholson D.O. Pt seen a urologist before?: Yes (Last seen in 2013 at [facility]. Also seen by Dr. Starr and Dr. Jarrett in remote past. ) History of Present Illness 46 year old male admitted with hematuria. He has a complex medical history including paraplegia, endocarditis, MV replacement, brain abscess, CHF, PE, HTN, Urosepsis, sacral decubitus, obesity. He noted visible blood in his urine yesterday. Reports in the past he has needed life flighted to [facility] d/t urosepsis. He has been afebrile, VSS. Denies pain. Currently being treated with IV Zosyn. Urine culture is pending. UA shows moderate leuks, nitrite neg, note whites and reds however has > 20 epithelials as well. Yellow and clear. CT abd/pelvis images personally reviewed- note he has bilateral intrarenal stones L>R without obstruction. Small amount of bilateral renal fullness. No hydronephroureter appreciated. Also of note he has a sacral decubitus with possible osteomyelitis. Infectious disease has also been consulted. Reviewed many of his transferred records from [facility] in his [employer] chart- he had similar stones according to a CT report in 2013. Baseline pt has no bothersome urinary symptoms and he is able to void on his own. Reports his bladder scans have been 0 ml in the past. He has seen Dr.'s Starr and Luiza over 10 years ago. Never passed a stone or underwent stone surgery in the past. Feels he is able to empty well usually and denies any frequency, urgency, dysuria, hesitancy or incontinence. Imaging Imaging: CT Laboratory Last 24 Hours Test 11/03/16 19:45 11/04/16 04:44 11/04/16 04:54 11/04/16 07:43 White Blood Count 11.10 K/uL Red Blood Count 5.19 M/uL Hemoglobin 16.5 g/dL Hematocrit 48.1 % Mean Corpuscular Volume 92.7 fL Mean Corpuscular Hemoglobin 31.8 pg Mean Corpuscular Hemoglobin Concent 34.3 g/dl Platelet Count 176 K/uL Mean Platelet Volume 9.7 fL Neutrophils (%) (Auto) 82.2 % Lymphocytes (%) (Auto) 11.0 % Monocytes (%) (Auto) 4.5 % Eosinophils (%) (Auto) 1.6 % Basophils (%) (Auto) 0.4 % Neutrophils # (Auto) 9.13 K/uL Lymphocytes # (Auto) 1.22 K/uL Monocytes # (Auto) 0.50 K/uL Eosinophils # (Auto) 0.18 K/uL Basophils # (Auto) 0.04 K/uL RDW Standard Deviation 55.2 fL RDW Coefficient of Variation 16.3 % Immature Granulocyte % (Auto) 0.3 % Immature Granulocyte # (Auto) 0.03 K/uL Prothrombin Time 21.1 SECONDS Prothromb Time International Ratio 1.9 Activated Partial Thromboplast Time 37.7 SECONDS Partial Thromboplastin Ratio 1.5 Urine Color YELLOW Urine Appearance CLOUDY Urine pH 5.0 Urine Specific [place] 1.009 Urine Protein 2+ Urine Glucose (UA) NEG Urine Ketones NEG Urine Occult Blood 3+ Urine Nitrite NEG Urine Bilirubin NEG Urine Urobilinogen NEG Urine Leukocyte Esterase MODERATE Urine WBC (Auto) >30 /hpf Urine RBC (Auto) 10-30 /hpf Urine Hyaline Casts (Auto) 1-5 /lpf Urine Epithelial Cells (Auto) 20-30 /lpf Urine Bacteria (Auto) NEG Sodium Level 138 mmol/L Potassium Level 4.0 mmol/L Chloride Level 104 mmol/L Carbon Dioxide Level 22 mmol/L Anion Gap 12.0 mmol/L Blood Urea Nitrogen 26 mg/dl Creatinine 1.20 mg/dl Est Creatinine Clear Calc Drug Dose 105.6 ml/min Estimated GFR () 84.7 Estimated GFR (Non- 73.1 BUN/Creatinine Ratio 21.3 Random Glucose 168 mg/dl Calcium Level 9.1 mg/dl Total Creatine Kinase 126 U/L Creatine Kinase MB 4.0 ng/ml Creatine Kinase MB Ratio 3.2 Bedside Glucose 174 mg/dl 171 mg/dl Test 11/04/16 08:06 Current Inpatient Medications Medications (Trade) Dose Ordered Sig/Alvaro Route Start Time Stop Time Status Last Admin Dose Admin Allopurinol (Zyloprim Tab) 300 mg DAILY PO 11/04/16 08:00 12/04/16 08:59 11/04/16 08:39 300 MG Aspirin (Ecotrin Tab) 81 mg QAM PO 11/04/16 08:00 12/04/16 08:59 11/04/16 08:40 81 MG Colchicine (Colchicine Tab) 0.6 mg DAILY PO 11/04/16 08:00 12/04/16 08:59 11/04/16 08:39 0.6 MG Furosemide (Lasix Tab) 40 mg DAILY PO 11/04/16 08:00 12/04/16 08:59 11/04/16 08:40 40 MG Gabapentin (Neurontin Tab) 600 mg TID PO 11/04/16 08:00 12/04/16 08:59 11/04/16 08:38 600 MG Magnesium Oxide (Mag-Ox Tab) 400 mg DAILY PO 11/04/16 08:00 12/04/16 08:59 11/04/16 08:38 400 MG Atenolol (Tenormin Tab) 25 mg DAILY PO 11/04/16 08:00 12/04/16 08:59 11/04/16 08:38 25 MG Nystatin (Mycostatin Powder) 1 appln BID PRN EXT 11/04/16 00:30 12/04/16 00:29 Pantoprazole Sodium (Protonix Tab) 40 mg DAILY PO 11/04/16 08:00 12/04/16 08:59 11/04/16 08:39 40 MG Potassium Chloride (Klor-Con Tab) 20 meq DAILY PO 11/04/16 08:00 12/04/16 08:59 11/04/16 08:39 20 MEQ Warfarin Sodium (Coumadin Tab) 5 mg DAILY@1600 PO 11/04/16 16:00 12/04/16 07:59 Oxycodone HCl 10 mg 10 mg 5XDQ4H PRN PO 11/04/16 00:30 11/18/16 00:29 Piperacillin Sod/ Tazobactam Sod 4.5 gm/Dextrose 120 ml @ 30 mls/hr Q8H IV 11/04/16 04:00 11/14/16 03:59 11/04/16 04:47 30 MLS/HR Daptomycin/Sodium Chloride (Cubicin IV/Nss 50ml) 61 ml @ 100 mls/hr Q24H IV 11/04/16 03:30 11/14/16 00:59 11/04/16 03:45 100 MLS/HR Insulin Aspart (novoLOG ASPART) SLIDING SCALE G... ACHS SC 11/04/16 06:30 12/04/16 06:59 11/04/16 09:14 42 UNITS Acetaminophen (Tylenol Tab) 650 mg Q4H PRN PO 11/04/16 00:45 12/04/16 00:44 Al Hydrox/Mg Hydrox/Simethicone (Maalox Max Susp) 15 ml Q4H PRN PO 11/04/16 00:45 12/04/16 00:44 Magnesium Hydroxide (Milk Of Magnesia Susp) 30 ml Q6H PRN PO 11/04/16 00:45 12/04/16 00:44 Polyethylene (Miralax Powder Packet) 17 gm DAILY PRN PO 11/04/16 00:45 12/04/16 00:44 Ondansetron HCl (Zofran Inj) 4 mg Q6H PRN IV 11/04/16 00:45 12/04/16 00:44 Levalbuterol (Xopenex 1.25MG/ 0.5ML Neb) 1.25 mg Q4H PRN INH 11/04/16 01:30 12/04/16 01:29 Ipratropium Blount (Atrovent 0.02% 0.5MG/2.5ML Neb) 0.5 mg Q8R INH 11/04/16 08:00 12/04/16 07:59 11/04/16 07:45 0.5 MG Piperacillin Sod/ Tazobactam Sod (Consult) 1 ea UD PRN N/A 11/04/16 02:45 12/04/16 02:44 Miscellaneous Information (Consult Glycemic Management Pharmacy) 1 UD PRN N/A 11/04/16 04:45 12/04/16 04:44 Insulin Glargine (Lantus Vial) SEE PROTOCOL BID SC 11/04/16 08:00 12/04/16 07:59 11/04/16 09:15 75 UNIT Labs were reviewed and are within normal limits unless listed below. Labs are available in the chart and at [facility] Problem List Medical Problems: (1) Acute kidney injury Status: Acute (2) Bilateral pneumonia Status: Acute (3) Cellulitis Status: Acute (4) Cellulitis in diabetic foot Status: Acute (5) Cellulitis of both lower extremities Status: Acute (6) Chest pain Status: Acute (7) CHF (congestive heart failure) Status: Acute (8) Decubitus skin ulcer Status: Acute (9) Decubitus ulcer of right buttock Status: Acute (10) Diabetes Status: Acute (11) Drug (multiple) resistant infection Status: Acute (12) Elevated liver function tests Status: Acute (13) Failure of outpatient treatment Status: Acute (14) GI bleed Status: Acute (15) Hyperglycemia Status: Acute (16) Hyperglycemia Status: Acute (17) Hypomagnesemia Status: Acute (18) Hypoxia Status: Acute (19) Hypoxia Status: Acute (20) Left leg cellulitis Status: Acute (21) Localized swelling of both lower legs Status: Acute (22) Lower extremity edema Status: Acute (23) Peripheral edema Status: Acute (24) Precordial chest pain Status: Acute (25) Subtherapeutic anticoagulation Status: Acute (26) Subtherapeutic international normalized ratio (INR) Status: Acute (27) Subtherapeutic international normalized ratio (INR) Status: Acute (28) Transaminitis Status: Acute (29) Urinary tract infection Status: Acute (30) Urinary tract infection Status: Acute (31) UTI (urinary tract infection) Status: Acute (32) UTI (urinary tract infection) Status: Acute Past History congestive heart failure, CVA/TIA/stroke, drug addiction, heart disease ( endocarditis), hypertension, kidney stones, pulmonary embolism, other (sacral decubitus) Pt had a problem w anesthesia?: No Past Surgical History: other (MVR) Family History Cancer Diabetes mellitus Gallbladder disease Heart disease Hypertension Kidney disease Lung disease Social History Hx Tobacco Use In Past Year?: No Marital status: Housing status: lives with family Occupation status: disabled Immunizations History of Influenza Vaccine: No History of Tetanus Vaccine?: Yes Tetanus Immunization Date: Jun 01, 2007 History of Pneumococcal: No History of Hepatitis B Vaccine: Unknown History of MDRO Yes Type of MDRO: MRSA Allergies Coded Allergies: No Known Allergies (Verified , 11/03/16) Medications Home Medications: Home Meds and Scripts Medications Dose Route/Sig Max Daily Dose Days Date Category Dose Instructions Atenolol 25 Mg Tab 25 Mg PO DAILY 11/04/16 Reported Ipratropium Blount 0.5 Mg/2.5 Ml Nebu 2.5 Mg NEB Q2-4HRS PRN 04/15/16 Reported Ipratropium Blount 0.5 Mg/2.5 Ml Nebu 0.5 Mg NEB Q6HWA 04/15/16 Reported Levalbuterol (Levalbuterol Hcl) 1.25 Mg/0.5 Ml Neb 1.25 Mg NEB Q2-4HRS PRN 04/15/16 Reported Levalbuterol (Levalbuterol Hcl) 1.25 Mg/0.5 Ml Neb 1.25 Mg NEB Q6HWA PRN 04/15/16 Reported Mag-Ox (Magnesium Oxide) 400 Mg Tab 400 Mg PO DAILY 04/15/16 Reported Lactinex (Lactobacillus Acidophilus) Tab 1 Tab PO DAILY 04/15/16 Reported Toujeo Solostar (Insulin Glargine) 300 Unit/Ml Inj 100 Units SC BID 04/15/16 Reported Novolog Flexpen (Insulin Aspart) 100 Units/Ml Inj 40 Units SC DAILY 04/15/16 Reported before meals Aspirin EC Low Dose (Aspirin) 81 Mg Ectab 81 Mg PO QAM 04/15/16 Reported Potassium Chloride Er (Potassium Chloride Microencaps) 20 Meq Tab 20 Meq PO DAILY 04/15/16 Reported Zyloprim (Allopurinol) 300 Mg Tab 300 Mg PO DAILY 04/15/16 Reported Lasix (Furosemide) 40 Mg Tab 40 Mg PO DAILY 04/15/16 Reported Pantoprazole Sodium (Pantoprazole) 40 Mg Tab 40 Mg PO DAILY 04/15/16 Reported Oxycodone Hcl 10 Mg Tab 10 Mg PO 5XD PRN 04/15/16 Reported Colchicine 0.6 Mg Tab 0.6 Mg PO DAILY 04/15/16 Reported Gabapentin 600 Mg Tab 600 Mg PO TID 04/15/16 Reported Warfarin Sodium 5 Mg Tab 5 Mg PO DAILY 04/15/16 Reported MONDAY AND MONDAY TAKE 2.5MG. TAKE 5MG EVERY OTHER DAY OF THE WEEK Nystop (Nystatin (Topical)) 100,000 Unit/Gm Pow 1 Appln TOP BID PRN 03/15/16 Reported Inpatient Medications: Current Inpatient Medications Medications (Trade) Dose Ordered Sig/Alvaro Route Start Time Stop Time Status Last Admin Dose Admin Allopurinol (Zyloprim Tab) 300 mg DAILY PO 11/04/16 08:00 12/04/16 08:59 11/04/16 08:39 300 MG Aspirin (Ecotrin Tab) 81 mg QAM PO 11/04/16 08:00 12/04/16 08:59 11/04/16 08:40 81 MG Colchicine (Colchicine Tab) 0.6 mg DAILY PO 11/04/16 08:00 12/04/16 08:59 11/04/16 08:39 0.6 MG Furosemide (Lasix Tab) 40 mg DAILY PO 11/04/16 08:00 12/04/16 08:59 11/04/16 08:40 40 MG Gabapentin (Neurontin Tab) 600 mg TID PO 11/04/16 08:00 12/04/16 08:59 11/04/16 08:38 600 MG Magnesium Oxide (Mag-Ox Tab) 400 mg DAILY PO 11/04/16 08:00 12/04/16 08:59 11/04/16 08:38 400 MG Atenolol (Tenormin Tab) 25 mg DAILY PO 11/04/16 08:00 12/04/16 08:59 11/04/16 08:38 25 MG Nystatin (Mycostatin Powder) 1 appln BID PRN EXT 11/04/16 00:30 12/04/16 00:29 Pantoprazole Sodium (Protonix Tab) 40 mg DAILY PO 11/04/16 08:00 12/04/16 08:59 11/04/16 08:39 40 MG Potassium Chloride (Klor-Con Tab) 20 meq DAILY PO 11/04/16 08:00 12/04/16 08:59 11/04/16 08:39 20 MEQ Warfarin Sodium (Coumadin Tab) 5 mg DAILY@1600 PO 11/04/16 16:00 12/04/16 07:59 Oxycodone HCl 10 mg 10 mg 5XDQ4H PRN PO 11/04/16 00:30 11/18/16 00:29 Piperacillin Sod/ Tazobactam Sod 4.5 gm/Dextrose 120 ml @ 30 mls/hr Q8H IV 11/04/16 04:00 11/14/16 03:59 11/04/16 04:47 30 MLS/HR Daptomycin/Sodium Chloride (Cubicin IV/Nss 50ml) 61 ml @ 100 mls/hr Q24H IV 11/04/16 03:30 11/14/16 00:59 11/04/16 03:45 100 MLS/HR Insulin Aspart (novoLOG ASPART) SLIDING SCALE G... ACHS SC 11/04/16 06:30 12/04/16 06:59 11/04/16 09:14 42 UNITS Acetaminophen (Tylenol Tab) 650 mg Q4H PRN PO 11/04/16 00:45 12/04/16 00:44 Al Hydrox/Mg Hydrox/Simethicone (Maalox Max Susp) 15 ml Q4H PRN PO 11/04/16 00:45 12/04/16 00:44 Magnesium Hydroxide (Milk Of Magnesia Susp) 30 ml Q6H PRN PO 11/04/16 00:45 12/04/16 00:44 Polyethylene (Miralax Powder Packet) 17 gm DAILY PRN PO 11/04/16 00:45 12/04/16 00:44 Ondansetron HCl (Zofran Inj) 4 mg Q6H PRN IV 11/04/16 00:45 12/04/16 00:44 Levalbuterol (Xopenex 1.25MG/ 0.5ML Neb) 1.25 mg Q4H PRN INH 11/04/16 01:30 12/04/16 01:29 Ipratropium Blount (Atrovent 0.02% 0.5MG/2.5ML Neb) 0.5 mg Q8R INH 11/04/16 08:00 12/04/16 07:59 11/04/16 07:45 0.5 MG Piperacillin Sod/ Tazobactam Sod (Consult) 1 UD PRN N/A 11/04/16 02:45 12/04/16 02:44 Miscellaneous Information (Consult Glycemic Management Pharmacy) 1 UD PRN N/A 11/04/16 04:45 12/04/16 04:44 Insulin Glargine (Lantus Vial) SEE PROTOCOL BID SC 11/04/16 08:00 12/04/16 07:59 11/04/16 09:15 75 UNIT Review of Systems Review of Systems Constitutional: No chills, No fever Eyes: No blurred vision Neurological: + numbness/tingling (baseline in his BLE), No dizzy Gastrointestinal: No abdominal pain, No nausea Cardiovascular: No chest pain Respiratory: No shortness of breath Skin: No rash Male : + see HPI Physical Exam Vital Signs: Vital Signs Past 12 Hours Date Time Temp Pulse Resp B/P Pulse Ox O2 Delivery O2 Flow Rate FiO2 11/04/16 08:15 Room Air 11/04/16 07:45 81 16 94 Room Air 11/04/16 07:07 36.7 82 20 120/74 95 Room Air 11/04/16 02:34 36.8 84 20 141/90 94 Room Air 11/04/16 02:20 82 96 2.0 11/04/16 01:25 81 20 135/73 94 Room Air 11/03/16 23:21 86 18 98/60 92 Room Air Physical Exam: General Appearance: WD/WN, no apparent distress ENT: hearing grossly normal Respiratory/Chest: no respiratory distress, no accessory muscle use Gastrointestinal: Abdomen: normal abdomen Neurologic/Psychiatric: alert, normal mood/affect, oriented x 3, + abnormal gait (wheel chair bound/ paraplegia), + motor weakness, + sensory deficit Skin: normal color, warm/dry, no rash Assessment & Plan Assessment & Plan Imaging: CT Hematuria Hx of urosepsis and UTI. Unsure of cause- could be related to his stones. No hx of urinary retention. Urine culture pending. Currently treated with IV Zosyn and ID has been consulted. Also possible osteomyelitis. CT shows bilateral nonobstructing stones-. No ureteral or bladder stones. Some renal fullness, no hydro. Stones could be cause of his hematuria. Denies pain. No evidence on CT of recently passed stone. No perinephric stranding. He has most likely had these same stones since 2013 (noted on CT from transferred [facility] records) He is afebrile with stable vital signs therefore no surgical intervention needed at this time. Will plan for outpt follow up to discuss stone management. Will continue to monitor for urosepsis- develop fever, tachycardia, flank pain with + urine culture Thanks for the consult. Will continue to monitor along with primary service.
[2016-11-04 11:08] LABS: INR 1.7 (0.9-1.1); PROTHROMBIN TIME (PATIENT) 18.5 SECONDS (9.0-12.0)
[2016-11-04 11:34] LABS: BUN/CREATININE RATIO 18.7 (10-20); CALCIUM 8.9 mg/dl (8.5-10.1); CREATININE 1.3 mg/dl (0.60-1.40); MAGNESIUM 1.8 mg/dl (1.8-2.4); POTASSIUM 3.3 mmol/L (3.5-5.1)
--- NOTE | 2016-11-04 11:59 | INFECT. DISEASE CONSULTATION ---
DATE OF CONSULTATION: 11/04/2016 REQUESTING PHYSICIAN: Dr. Perez. HISTORY OF PRESENT ILLNESS: This is a 46-year-old gentleman who has underlying paraplegia from stroke, history of endocarditis and brain abscess secondary to IV drug abuse, who was admitted yesterday after he noticed hematuria at home. He has had no fevers or chills at home. He states this was an isolated episode of hematuria and he has not had any additional hematuria since admission to the hospital. He does have a history of urinary tract infection and has had multiple cultures here, all with contaminated specimen. He denies any dysuria, abdominal pain, frequency or urgency. He states he urinates without difficulty at home. He also has a history of sacral ulceration which he has had for many years. He did follow previously at a wound care clinic in [place] but has been discharged secondary to the wound healing. He did have a CAT scan here yesterday which showed some fluid and questionable sacral osteomyelitis. He states that the wound is closed, it is not bleeding or draining, and he has no pain in the area. He did not have any evidence of obstruction on CAT scan done yesterday. The patient was admitted for intravenous antibiotics. Infectious diseases was asked to see this patient in consultation for daptomycin use. He currently is without fevers or chills. He denies any cough, chest pain, nausea, vomiting, diarrhea or abdominal pain. He is eating well. He has no urinary complaints. All remaining review of systems are reviewed and are negative. 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 He has also been followed by urology here. PAST MEDICAL HISTORY: Significant for hypoxic respiratory failure requiring BiPAP, history of IV drug abuse resulting in endocarditis and brain abscess, CVA with right-sided weakness and paraplegia, morbid obesity, history of hepatitis C, gout, pulmonary hypertension, history of PE, CHF and type 2 diabetes. PAST SURGICAL HISTORY: Significant for brain surgery, CABG, cardiac catheterization, colostomy, and mitral valve repair in 2016. FAMILY HISTORY: Noncontributory. SOCIAL HISTORY: Negative for tobacco use or alcohol use. He is currently disabled secondary to above. He is and lives with his family. He denies any recent sick contacts. ALLERGIES: He has no known drug allergies. CURRENT MEDICATIONS: Include Coumadin, allopurinol, colchicine, Lasix, Neurontin, magnesium, atenolol, Protonix, potassium, Atrovent, Lantus insulin, Zosyn, dapto, Xopenex, Tylenol, Maalox, milk of magnesia, MiraLax, and Roxicodone. PHYSICAL EXAMINATION: VITAL SIGNS: He is afebrile and has been since admission to the hospital, pulse is 81, respiratory rate is 16, blood pressure is 120/74, oxygen saturation is 94% on room air. GENERAL: He is awake, alert and oriented x3. He is in no acute distress. HEENT: Mucous membranes are moist. Extraocular muscles are intact. HEART: Regular. LUNGS: Clear. ABDOMEN: Soft and nontender. There is no edema. SKIN: Without rash. LABORATORY STUDIES: CBC yesterday revealed a white blood cell count of 11.1, hemoglobin 16.5, platelets were 176. Chemistry panel in the ER revealed a sodium of 138, potassium 4.0, chloride 104, bicarbonate 22, BUN 26, creatinine 1.2, glucose was 168. Urinalysis had greater than 30 WBCs but no bacteria. Urine culture is pending. CAT scan of the abdomen and pelvis showed bilateral nephrolithiasis with some fullness in the right renal collecting system; however, there was no hydronephrosis or obstruction noted. Postoperative changes in the colon were noted. Left-sided sacral decubitus with some focal erosion suggesting osteomyelitis. ASSESSMENT AND PLAN: Asymptomatic bacteriuria. I do not see any evidence of a urinary tract infection. He did have significant white blood cells on urinalysis, but no bacteria were found. He is asymptomatic and afebrile. I would favor following off antibiotics. He states that his sacral wound is healed and he does have connections with the wound care center in [place]. My recommendation would be to continue outpatient followup with both home care which he states he is receiving and also wound care followup with his clinic in [place]. I did not see any indication for intravenous antibiotics at this time, but he should continue to follow with wound care clinic. If he is otherwise stable, he would be cleared for discharge from an infectious diseases standpoint. Thank you for this consultation. PRECIOUS
[2016-11-04 12:06] LABS: ESTIMATED AVERAGE GLUCOSE 140 mg/dl; HA1C FLAG Normal (Normal)
--- NOTE | 2016-11-04 12:17 | SURGICAL CONSULTATION ---
DATE OF CONSULTATION: 11/04/2016 DATE OF CONSULTATION: 11/04/2016. Seen in consultation at the request of Dr. Philip Perez for sacral decubiti. SUMMARY: This is a 46-year-old gentleman who has a complex medical history and all of this was reviewed in the chart, but in summary, the most significant thing was that approximately 4 years ago had a CVA and according to the patient, never was told what the etiology was found. He had developed a sacral decubiti, grade 4, that has been treated with a wound VAC and was treated until it was completely healed. The gentleman lives at home. He is able to weight bear. He has not had a routine physical therapy schedule except the most recent past at 2-3 times a week. The patient's right upper extremity is weak. His day is pretty much as one that he sits in a chair or resides in bed. PAST MEDICAL HISTORY: Quite significant for COPD, history of brain abscess and endocarditis, CVA, morbidly obese, hepatitis C, gout, severe pulmonary hypertension, PE, right-sided congestive failure, diabetes mellitus. MEDICATIONS: His home medicines were all reviewed including the Coumadin. PHYSICAL EXAMINATION: GENERAL: As I see him today Hema is resting comfortable. His BMI is 45. He is alert, coherent, speaks with a [place]uvian accent. He is originally from [place] and [facility] he was approximately 16. VITAL SIGNS: His last vitals showed a temperature of 36.7, pulse 82, respirations 20, blood pressure 120/74, O2 sats 95 on room air. Focus on my exam after helping him rotate to the right side was the sacral area which showed evidence of chronic ulcerations, but at this time there is no tenderness. There is no fluctuance. There is no draining sinuses and the patient is able to feel the area and has no pain. LABORATORY DATA: Showed a white count this morning of 6.37 without a left shift. His chemistries slightly elevated liver function tests and alkaline phosphatase. His albumin is 3.0. In summary, the CT scan that was done today I reviewed with the radiologist and compared to a year ago. There is no change. He certainly could have underlying osteo but very much unlikely since there is no draining sinuses and on clinical basis and as stated by the CT scan report not of any clinical significance. IMPRESSION: At this point, there is nothing surgical to be done. I discussed this with the patient. I would strongly encourage the patient to follow up on his routine physical therapy to the point that he may be able to stand and walk with some help and relieve pressure on sacral area. He stated in the past that he was able to take about 10 steps but for unknown reasons the physical therapy that he was recently getting was stopped for about a year. We will be glad to see the patient any time if any new issues develop. MAVISD
[2016-11-04] MEDS ORDERED: WARFARIN SOD 5 MG TAB PO SCH (16:00)
--- NOTE | 2016-11-04 21:30 | Progress Note ---
Progress Note Date of Service Nov 04, 2016. Progress Note Pt admitted after midnight. Pt seen and examined and chart reviewed extensively. He has a long and complex history. Pt had one episode on the day [employer] of gross hematuria with clots which has since resolved. UA here abnormal but with moderate amount of epis in it. CT with stones in kidneys but no obstruction in ureters. Urology saw and thought hematuria could be from stones, consider f/u with Urol as outpt. After ID saw him, we discussed the case and decided to keep him on IV abx overnight until Ur cx results back. I would consider gross hematuria to be a symptoms of UTI and would indeed treat UTI if Ur cs has significant growth. Due to his extensive history and previous episodes of UTI with severe sepsis, I favored a closer observation overnight rather than discharge to home today. Sacral decub is completely closed over and despite appearance of OM on CT, ID, Surgery, and I are all in agreement that this is not a likely source of infection as he is afebrile and not ill-appearing. Vitals reviewed Morbidly obese RRR no mgr CTAB no wcr Abd soft, NT, ileostomy in place with liquid light brown stool, large scar midline Ext 2+ edema legs bilat to thighs SKin: sacrum without any open wounds, has some mild purple discoloration of skin at site of previous wound 46 yo male with extensive history, here with gross hematuria, on coumadin. Likely from UTI vs stones. -follow Ur cx, continue ZOsyn and Dapto -if Ur cx no growth tomorrow, can dc home off abx -increased dose of coumadin to 5mg last night and 5mg tonight from usual home dose of 2.5mg 5x/week and 5mg 2days/week, follow INR -continue all other home meds -consult PT/OT for severe deconditioning and paraplegia, hemiparesis s/o CVA
[2016-11-05] MEDS: OXYCODONE HCL IR 5 MG TAB (IMMEDIATE RELEASE) PO PRN (02:01)
[2016-11-05] MEDS: DAPTOmycin IV 550 MG in SODIUM CHLORIDE 0.9% 50ML 50 ML IV SCH (03:33)
[2016-11-05] MEDS: PIPERACILL/TAZOBAC IV 4.5 GM in DEXTROSE 5% 100ML 100 ML IV SCH (03:51)
[2016-11-05 04:02] VITALS: PULSE 82; O2SAT 98
[2016-11-05 06:53] LABS: BASO % 0.4 %; BASO ABS # 0.03 K/uL (0-0.2); COMPLETE YES; EOS % 4.6 %; HEMATOCRIT 44.2 % (42-52); IG% 0.1 %; LYMPH % 22.8 %; LYMPH ABS # 1.65 K/uL (1.2-3.4); MEAN CELL VOLUME 92.9 fL (80-100); MEAN CORPUSCULAR HEMOGLOBIN 31.5 pg (25-34); MEAN CORPUSCULAR HGB CONC 33.9 g/dl (32-36); MEAN PLATELET VOLUME 9.7 fL (7.4-10.4); MONO % 5.9 %; NEUT % 66.2 %; PLATELET COUNT 159 K/uL (130-400); RED BLOOD COUNT 4.76 M/uL (4.7-6.1); WHITE BLOOD COUNT 7.23 K/uL (4.8-10.8)
[2016-11-05 07:03] LABS: INR 2.2 (0.9-1.1)
[2016-11-05 07:27] VITALS: BP 146/91; PULSE 76; TEMP 36.7; O2SAT 95
[2016-11-05 07:27] LABS: CALCIUM 8.6 mg/dl (8.5-10.1); CREATININE 1.5 mg/dl (0.60-1.40); POTASSIUM 3.4 mmol/L (3.5-5.1)
[2016-11-05] MEDS: IPRATROPIUM BROMIDE NEB SOLN 0.02% 2.5 ML VIAL INH SCH (08:00)
[2016-11-05] MEDS: ASPIRIN 81 MG ECTAB PO SCH (08:00)
[2016-11-05] MEDS: GABAPENTIN 600 MG TAB PO SCH (08:19)
[2016-11-05] MEDS: FUROSEMIDE 40 MG TAB PO SCH (08:20)
[2016-11-05] MEDS: COLCHICINE 0.6 MG TAB PO SCH (08:20)
[2016-11-05] MEDS: MAGNESIUM OXIDE 400 MG TAB PO SCH (08:20)
[2016-11-05] MEDS: PANTOprazole SOD 40 MG TAB PO SCH (08:20)
[2016-11-05] MEDS: POTASSIUM CHLORIDE 20 MEQ TABCR PO SCH (08:21)
[2016-11-05] MEDS: ALLOPURINOL 300 MG TAB PO SCH (08:21)
[2016-11-05] MEDS: INSULIN ASPART 100 UNITS/ML 3 ML PEN SC SCH (08:28)
[2016-11-05] MEDS: INSULIN GLARGINE SC SCH (08:29)
--- NOTE | 2016-11-05 10:33 | Discharge Instructions ---
Discharge Instructions Date of Service Nov 05, 2016. Admission Reason for Admission: Hematuria, Uti, Possible Osteomyelitis Discharge Discharge Diagnosis / Problem: Hematuria Discharge Goals Goal(s): Improve disease control, Diagnostic testing, Therapeutic intervention Activity Recommendations Activity Limitations: resume your previous activity Shower/Bathe: no limitations . Instructions / Follow-Up Instructions / Follow-Up You were admitted for hematuria (blood in the urine) and a urinary tract infection was ruled out. You were placed on antibiotics in case of an infection but these will be stopped now on discharge as your urine culture did not show an infection. You were found to have kidney stones on a CT scan and should follow up with Urology for this and the hematuria as an outpatient. Please schedule with Dr. Cadet within 2 weeks. Your kidney function was slightly decreased and you should have blood work repeated within 1 week to recheck this. A prescription has been given to you to take to the lab. The CT scan also showed possible osteomyelitis (bone infection) at the site of your previous sacral wound, however the wound is completely closed on the outside and both the Infectious Disease specialist and the General Surgeon that saw you did not feel you have an infection, and certainly do not need any surgical procedures or further antibiotics. Your INR (coumadin level) was 2.2 on the day of discharge. Continue your coumadin as you have had no further blood in the urine, and recheck your INR within 1 week. Please follow up with your PCP within 1 week for follow up from this hospitalization. Current Hospital Diet Patient's current hospital diet: AHA Diet (Heart Healthy), Diabetes Type 2 Diet Discharge Diet Recommended Diet: AHA Diet (Heart Healthy), Diabetes Type 2 Diet Procedures Procedures Performed: CT abdomen/pelvis Pending Studies Studies pending at discharge: no Laboratory Results Hemoglobin A1c Test 11/04/16 10:27 Range/Units Estimated Average Glucose 140 mg/dl Hemoglobin A1c 6.5 H 4.5-5.6 % Medical Emergencies . Who to Call and When: Medical Emergencies: If at any time you feel your situation is an emergency, please call 911 immediately. . Non-Emergent Contact Non-Emergency issues call your: Primary Care Provider Call Non-Emergent contact if: you have a fever, you have any medication questions or if you have return of your blood in the urine . . "Provider Documentation" section prepared by Aby Reed. VTE Core Measure Inpt VTE Proph given/why not?: Warfarin (Coumadin)
[2016-11-05 11:10] VITALS: BP 146/91; PULSE 76; TEMP 36.7; O2SAT 95
[2016-11-05] MEDS ORDERED: INSULIN GLARGINE SC SCH (20:00)
--- NOTE | 2016-11-05 20:24 | Discharge Summary ---
Discharge Summary Date of Service Nov 05, 2016. 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 pulmonary HTN History of DVT and subsequent PE ragman anticoagulation Morbid obesity Gout HTN GERD Asthma ANIBAL on BiPAP Chronic hepatitis C Elevated liver transaminases Immunizations: Have You Had Influenza Vaccine: No History of Tetanus Vaccine?: Yes Tetanus Immunization Date: Jun 01, 2007 History of Pneumococcal: No History of Hepatitis B Vaccine: Unknown Procedures: ABDOMEN AND PELVIS CT WITHOUT CONTRAST CT DOSE: 1994.92 mGy.cm HISTORY: Hematuria, right flank pain TECHNIQUE: Multiaxial CT images of the abdomen and pelvis were performed without the use of intravenous and oral contrast according to the standard department stone protocol. COMPARISON STUDY: Abdomen and pelvis CT 01/19/2016. FINDINGS: Bibasilar densities likely represent atelectasis. This remains unchanged. Poststernotomy changes. Multiple nondilated small bowel loops adherent to be anterior abdominal wall. Evidence for prior multiple midline incisions. Scarlike density within the right groin. Left-sided sacral decubitus ulcer with a fluid tract abutting the left posterior sacrum. There suggestive of a small focal erosion within the left posterior sacrum suggestive of osteomyelitis. Hepatic steatosis. The gallbladder is decompressed. The spleen, adrenal glands, and pancreas are unremarkable. Bilateral nephrolithiasis, unchanged. Mild fullness within the right renal collecting system and proximal right ureter without maddy hydronephrosis. There are no ureteral calculi identified. Bladder wall thickening, unchanged. Subtotal colectomy with the left lower quadrant colostomy containing the residual sigmoid colon. There is also a right lower quadrant ileostomy with a small parastomal hernia. No definite bowel wall thickening or obstruction. However, there are suboptimal evaluation for bowel pathology due to the lack of intravenous and oral contrast. IMPRESSION: 1. Bilateral nephrolithiasis. Mild fullness within the right renal collecting system without maddy hydronephrosis. No ureteral calculi identified. 2. Postoperative changes as described above. No definite bowel wall thickening or obstruction. 3. Left-sided sacral decubitus ulcer with a small fluid tract abutting the left posterior sacrum. There appears to be focal erosion of the left posterior sacrum suggestive of osteomyelitis. 4. Additional findings as described above. Consultations: Infectious Disease Urology General Surgery Medication Reconciliation Continued Medications: Allopurinol (Zyloprim) 300 Mg Tab 300 MG PO DAILY, TAB Aspirin (Aspirin EC Low Dose) 81 Mg Ectab 81 MG PO QAM Atenolol (Atenolol) 25 Mg Tab 25 MG PO DAILY Colchicine (Colchicine) 0.6 Mg Tab 0.6 MG PO DAILY Furosemide (Lasix) 40 Mg Tab 40 MG PO DAILY, TAB Gabapentin (Gabapentin) 600 Mg Tab 600 MG PO TID Insulin Aspart (Novolog Flexpen) 100 Units/Ml Inj 40 UNITS SC DAILY before meals Insulin Glargine (Toujeo Solostar) 300 Unit/Ml Inj 100 UNITS SC BID Ipratropium Woodford (Ipratropium Woodford) 0.5 Mg/2.5 Ml Nebu 0.5 MG NEB Q6HWA Ipratropium Woodford (Ipratropium Woodford) 0.5 Mg/2.5 Ml Nebu 2.5 MG NEB Q2-4HRS PRN for SOB/Wheezing Lactobacillus Acidophilus (Lactinex) Tab 1 TAB PO DAILY, TAB Levalbuterol Hcl (Levalbuterol) 1.25 Mg/0.5 Ml Neb 1.25 MG NEB Q6HWA PRN Levalbuterol Hcl (Levalbuterol) 1.25 Mg/0.5 Ml Neb 1.25 MG NEB Q2-4HRS PRN for SOB/Wheezing Magnesium Oxide (Mag-Ox) 400 Mg Tab 400 MG PO DAILY, TAB Nystatin (Topical) (Nystop) 100,000 Unit/Gm Pow 1 APPLN TOP BID PRN for Affected Skin Folds Oxycodone Hcl (Oxycodone Hcl) 10 Mg Tab 10 MG PO 5XD PRN for Pain Pantoprazole (Pantoprazole Sodium) 40 Mg Tab 40 MG PO DAILY Potassium Chloride Microencaps (Potassium Chloride Er) 20 Meq Tab 20 MEQ PO DAILY Warfarin Sodium (Warfarin Sodium) 5 Mg Tab 5 MG PO DAILY MONDAY AND MONDAY TAKE 2.5MG. TAKE 5MG EVERY OTHER DAY OF THE WEEK Referrals At Discharge Follow up Referrals: Infectious Disease - Within a Month with Jennifer. Saeed D.O. Physician Referral - Within 1 Week with Demarcus Nicholson D.O. Urologist Referral - Within 2 Weeks with Jeronimo Cadet M.D. Discharge Exam No more hematuria since admission. Afebrile, feeling well, no chest pain or abd pain, no SOB PHYSICAL EXAM: Vitals reviewed Morbidly obese RRR no mgr CTAB no wcr Abd soft, NT, ileostomy in place with liquid light brown stool, large scar midline Ext 2+ edema legs bilat to thighs SKin: sacrum without any open wounds, has some mild purple discoloration of skin at site of previous wound Review of Systems: Constitutional: No chills, No fever Eyes: No problem reported ENT: No problem reported Respiratory: No shortness of breath Cardiovascular: No chest pain Abdomen: No GI bleeding, No constipation, No diarrhea, No nausea, No pain, No vomiting Musculoskeletal: No problem reported Genitourinary - Male: No problem reported Neurologic: + paralysis, + weakness Psychiatric: No problem reported Endocrine: No problem reported Hematologic / Lymphatic: No problem reported Integumentary: No problem reported Hospital Course 46 y/o M w/complex medical history including paraplegia from a CVA, history of endocarditis and brain abscess due to IVDU, DM, chronic respiratory failure, R sided CHF due to severe pulmonary HTN, PE on Coumadin, morbid obesity. Pt presents with a chief complaint of hematuria. Pt had one episode on the day [employer] of gross hematuria with clots which has since resolved. UA here abnormal but with moderate amount of epis in it. He has not had fevers or rigors but states that when he develops UTIs he may quickly become septic and requires IV antibiotics. A CT of the abdomen and pelvis was obtained in the ER possibly owing to his hematuria. This revealed B/L nephrolithiasis and mild renal fullness without evidence of obstruction. Additionally and incidentally there may be osteomyelitis associated with a sacral decub which clinically did not appear significant. Urology saw him and thought hematuria could be from stones, consider f/u with Urol as outpt. After ID saw him, we discussed the case and decided to keep him on IV abx overnight until Ur cx results back. Due to his extensive history and previous episodes of UTI with severe sepsis, I favored a closer observation overnight. His urine culture grew out mixed organisms and so true infection ruled out. Sacral decub is completely closed over and despite appearance of OM on CT, ID, Surgery, and I are all in agreement that this is not a likely source of infection as he is afebrile and not ill-appearing. UTI, hematuria - treated with Zosyn and Dapto for 36 hrs until Urine culture negative -stop all antibiotics and discharge to home -f/u with Urology for gross hematuria, will need cystoscopy and possible treatment of his stones Chronic respiratory failure - cont 02, CPAP, breathing treatments as needed. No issues this admission CHF -secondary to pulmonary HTN - Cont diuretics, no issues, stable History of PE - INR therapeutic at time of discharge although was 1.7 the day after admission. He was not bridged due to the hematuria - cont Coumadin at usual home dose and check INR in 1 week Acute renal insufficiency-certified pediatric nurse practitioner bumped slightly up to 1.5 on day of discharge --repeat BMP in 1 week, f/u with PCP, not overly concerning Chronic Hep C with elevated LFTs -recommend referral to ID here locally for treatment Full code - Coumadin anticoagulation Dispo-to home Total Time Spent: Greater than 30 minutes This includes examination of the patient, discharge planning, medication reconciliation, and communication with other providers. Discharge Instructions Please refer to the electronic Patient Visit Report (Discharge Instructions) for additional information. Follow-Up PCP wthin 1 week ID for HCV tx in 1 month Urology in 2 weeks Additional Copies To Demarcus Nicholson D.O.; Jennifer. Saeed D.O.; Jeronimo Cadet M.D.
== END 2016-11-05 12:15 | disposition home or self-care (01) | DRG 696 ==
LOC: ENRESERVDT → ENRESERVTM → C.EDB 18:53 → C.4E 11-04 00:53
PROVIDERS: ADMIT Internal Medicine; ATTEND Family Medicine
DX: R31.0 Gross hematuria (principal); J96.10 Chronic respiratory failure, unspecified whether with hypoxia or hypercapnia; Z68.42 Body mass index [BMI] 45.0-49.9, adult; I69.351 Hemiplegia and hemiparesis following cerebral infarction affecting right dominant side; M46.28 Osteomyelitis of vertebra, sacral and sacrococcygeal region; N20.0 Calculus of kidney; I25.10 Atherosclerotic heart disease of native coronary artery without angina pectoris; E66.01 Morbid (severe) obesity due to excess calories; M10.9 Gout, unspecified; I10 Essential (primary) hypertension; K21.9 Gastro-esophageal reflux disease without esophagitis; J45.909 Unspecified asthma, uncomplicated; G47.33 Obstructive sleep apnea (adult) (pediatric); B18.2 Chronic viral hepatitis C; R74.0 Nonspecific elevation of levels of transaminase and lactic acid dehydrogenase [LDH]; L89.159 Pressure ulcer of sacral region, unspecified stage; I27.2 Other secondary pulmonary hypertension; I50.9 Heart failure, unspecified; Z86.718 Personal history of other venous thrombosis and embolism; N17.9 Acute kidney failure, unspecified; E11.9 Type 2 diabetes mellitus without complications; Z79.01 Long term (current) use of anticoagulants; N39.0 Urinary tract infection, site not specified; Z95.1 Presence of aortocoronary bypass graft; J44.9 Chronic obstructive pulmonary disease, unspecified; Z93.3 Colostomy status

== ENCOUNTER → 2016-11-24 | Outpatient (CLI) | payer OTHER ==
[~2016-11-24] MED LIST changes: -METO50TA16 PO; +PANT40TA2 PO; -PRT/40 PO; +TNR25 PO
[2016-11-24 13:17] LABS: BASO % 0.2 %; BASO ABS # 0.02 K/uL (0-0.2); COMPLETE YES; EOS % 2.2 %; HEMATOCRIT 47.2 % (42-52); IG% 0.3 %; LYMPH % 14.4 %; LYMPH ABS # 1.24 K/uL (1.2-3.4); MEAN CELL VOLUME 92.4 fL (80-100); MEAN CORPUSCULAR HEMOGLOBIN 32.1 pg (25-34); MEAN CORPUSCULAR HGB CONC 34.7 g/dl (32-36); MEAN PLATELET VOLUME 9.7 fL (7.4-10.4); MONO % 4.1 %; NEUT % 78.8 %; PLATELET COUNT 166 K/uL (130-400); RED BLOOD COUNT 5.11 M/uL (4.7-6.1); WHITE BLOOD COUNT 8.59 K/uL (4.8-10.8)
[2016-11-24 13:53] LABS: BENZODIAZEPINE, URINE NEG (NEG); COCAINE,URINE NEG (NEG); PHENCYCLIDINE, URINE NEG (NEG)
[2016-11-24 13:59] LABS: ALT/SGPT 243 U/L (12-78); BLOOD UREA NITROGEN 25 mg/dl (7-18); BUN/CREATININE RATIO 20.8 (10-20); CALCIUM 9.2 mg/dl (8.5-10.1); CARBON DIOXIDE 26 mmol/L (21-32); CHLORIDE 102 mmol/L (98-107); GLUCOSE 110 mg/dl (70-99); POTASSIUM 3.4 mmol/L (3.5-5.1); SODIUM 137 mmol/L (136-145)
[2016-11-24 14:01] LABS: ALB/GLOB RATIO 0.6 (0.9-2); ALKALINE PHOSPHATASE 277 U/L (45-117); AST/SGOT 162 U/L (15-37)
[2016-11-28 16:27] LABS: HEPATITIS C RNA TMA QUAL Detected
--- NOTE | 2016-11-29 12:01 | CODING QUERY MEDICAL NECESSITY ---
SUPPORTING DIAGNOSIS NEEDED Dr. Saeed, A supporting diagnosis is required for the test/procedure performed on this patient in order for us to be reimbursed by the patient's insurance. Please provide a supporting diagnosis for the following test/procedure listed below next to the test name along with your signature. *If there is no additional diagnosis for this patient that would support the following test/procedure please document that below next to the test/procedure. Test(s)/Procedure(s) that require a supporting diagnosis: * ([id number]) CONTROLLED SUB DIAGNOSIS: DATE OF SERVICE: 11/24/16 Provider Signature: Date: Thank you Leobardo Mckay [facility] Information Management Once completed, please kindly fax back to [phone] For questions please call [phone]
[2016-11-29 18:18] LABS: HEPATITIS C VIRAL RNA BY PCR 473000 IU/ML (<15); HEPATITIS C VIRAL RNA(LOG) PCR 5.67 LOG IU/ML (<1.18); LIVER FIBR APOLIPOPROTEIN A-1 121 mg/dL (94-176); LIVER FIBROS ALPHA-2-MACROGLOB 160 mg/dL (106-279); LIVER FIBROSIS GGT 220 U/L (3-95); NECROINFLAMMATION ACT GRADE A3; NECROINFLAMMATION ACT SCORE 0.83
== END | disposition home or self-care (01) ==
LOC: C.LAB1850 11:43
PROVIDERS: ATTEND Internal Medicine Infectious Disease
DX: B19.20 Unspecified viral hepatitis C without hepatic coma (principal)

== ENCOUNTER → 2017-01-06 | Outpatient (CLI) | payer OTHER ==
[2017-01-06 18:23] LABS: BASO % 0.4 %; BASO ABS # 0.04 K/uL (0-0.2); COMPLETE YES; EOS % 2.7 %; HEMATOCRIT 47.7 % (42-52); IG% 0.2 %; LYMPH % 19.3 %; LYMPH ABS # 1.78 K/uL (1.2-3.4); MEAN CELL VOLUME 94.1 fL (80-100); MEAN CORPUSCULAR HEMOGLOBIN 31.4 pg (25-34); MEAN CORPUSCULAR HGB CONC 33.3 g/dl (32-36); MEAN PLATELET VOLUME 9.5 fL (7.4-10.4); MONO % 4.9 %; NEUT % 72.5 %; PLATELET COUNT 184 K/uL (130-400); RED BLOOD COUNT 5.07 M/uL (4.7-6.1); WHITE BLOOD COUNT 9.22 K/uL (4.8-10.8)
[2017-01-06 20:52] LABS: ALT/SGPT 75 U/L (12-78); AST/SGOT 68 U/L (15-37); BLOOD UREA NITROGEN 26 mg/dl (7-18); BUN/CREATININE RATIO 18.4 (10-20); CALCIUM 9.1 mg/dl (8.5-10.1); CARBON DIOXIDE 25 mmol/L (21-32); CHLORIDE 106 mmol/L (98-107); GLUCOSE 91 mg/dl (70-99); POTASSIUM 3.6 mmol/L (3.5-5.1); SODIUM 142 mmol/L (136-145)
[2017-01-06 20:54] LABS: ALB/GLOB RATIO 0.6 (0.9-2); ALKALINE PHOSPHATASE 183 U/L (45-117)
[2017-01-09 10:08] LABS: HEPATITIS C VIRAL RNA BY PCR <15 NOT DETECTED IU/ML (<15); HEPATITIS C VIRAL RNA(LOG) PCR <1.18 NOT DETECTED LOG IU/ML (<1.18)
== END | disposition home or self-care (01) ==
LOC: C.LAB 17:34
PROVIDERS: ATTEND Internal Medicine Infectious Disease
DX: B19.20 Unspecified viral hepatitis C without hepatic coma (principal)

== ENCOUNTER → 2017-02-09 | Outpatient (CLI) | payer OTHER ==
[2017-02-09 17:47] LABS: BASO % 0.5 %; BASO ABS # 0.04 K/uL (0-0.2); COMPLETE YES; EOS % 3.3 %; HEMATOCRIT 45.7 % (42-52); IG% 0.2 %; LYMPH ABS # 1.68 K/uL (1.2-3.4); MEAN CELL VOLUME 95.8 fL (80-100); MEAN CORPUSCULAR HEMOGLOBIN 32.3 pg (25-34); MEAN CORPUSCULAR HGB CONC 33.7 g/dl (32-36); MEAN PLATELET VOLUME 9.7 fL (7.4-10.4); MONO % 4.8 %; NEUT % 72.2 %; PLATELET COUNT 176 K/uL (130-400); RED BLOOD COUNT 4.77 M/uL (4.7-6.1); WHITE BLOOD COUNT 8.82 K/uL (4.8-10.8)
[2017-02-09 18:14] LABS: ALB/GLOB RATIO 0.6 (0.9-2); ALKALINE PHOSPHATASE 191 U/L (45-117); ALT/SGPT 60 U/L (12-78); AST/SGOT 52 U/L (15-37); BLOOD UREA NITROGEN 21 mg/dl (7-18); BUN/CREATININE RATIO 13.1 (10-20); CALCIUM 9.1 mg/dl (8.5-10.1); CARBON DIOXIDE 24 mmol/L (21-32); CHLORIDE 108 mmol/L (98-107); GLUCOSE 135 mg/dl (70-99); POTASSIUM 3.7 mmol/L (3.5-5.1); SODIUM 140 mmol/L (136-145)
[2017-02-13 10:13] LABS: HEPATITIS C VIRAL RNA BY PCR <15 NOT DETECTED IU/ML (<15); HEPATITIS C VIRAL RNA(LOG) PCR <1.18 NOT DETECTED LOG IU/ML (<1.18)
== END | disposition home or self-care (01) ==
LOC: C.LABPBG 14:30
PROVIDERS: ATTEND Family Medicine
DX: B19.20 Unspecified viral hepatitis C without hepatic coma (principal)

== ENCOUNTER → 2017-07-28 | Outpatient (CLI) | payer OTHER ==
[2017-07-28 16:30] LABS: BASO % 0.5 %; BASO ABS # 0.04 K/uL (0-0.2); COMPLETE YES; EOS % 2.8 %; HEMATOCRIT 46.1 % (42-52); IG% 0.3 %; LYMPH % 13.4 %; LYMPH ABS # 1.17 K/uL (1.2-3.4); MEAN CORPUSCULAR HEMOGLOBIN 34.1 pg (25-34); MEAN CORPUSCULAR HGB CONC 34.1 g/dl (32-36); MEAN PLATELET VOLUME 9.8 fL (7.4-10.4); MONO % 4.6 %; NEUT % 78.4 %; PLATELET COUNT 169 K/uL (130-400); RED BLOOD COUNT 4.61 M/uL (4.7-6.1)
[2017-07-28 17:01] LABS: ALT/SGPT 82 U/L (12-78); AST/SGOT 95 U/L (15-37); BLOOD UREA NITROGEN 22 mg/dl (7-18); BUN/CREATININE RATIO 13.9 (10-20); CALCIUM 8.8 mg/dl (8.5-10.1); CARBON DIOXIDE 28 mmol/L (21-32); CHLORIDE 99 mmol/L (98-107); CREATININE 1.55 mg/dl (0.60-1.40); GLUCOSE 268 mg/dl (70-99); POTASSIUM 3.9 mmol/L (3.5-5.1); SODIUM 133 mmol/L (136-145)
[2017-07-28 17:04] LABS: ALB/GLOB RATIO 0.6 (0.9-2); ALKALINE PHOSPHATASE 217 U/L (45-117)
[2017-08-01 01:57] LABS: HEPATITIS C VIRAL RNA BY PCR <15 NOT DETECTED IU/ML (<15); HEPATITIS C VIRAL RNA(LOG) PCR <1.18 NOT DETECTED LOG IU/ML (<1.18)
== END | disposition home or self-care (01) ==
LOC: C.LAB 15:20
PROVIDERS: ATTEND Internal Medicine Infectious Disease
DX: B19.20 Unspecified viral hepatitis C without hepatic coma (principal)

== ENCOUNTER 2017-08-18 18:22 | Emergency (ER) | payer OTHER ==
[~2017-08-18] VITALS: Ht 172.7 cm; Wt 115.0 kg
[~2017-08-18 18:22] MED LIST changes: -ALLO300T2 PO; -ASPEC81 PO; -INSU1.2I SC; -NRN600 PO; -NVLGI/PEN SC; -NYST100010 TOP; -OXYC-164 PO; -PANT40TA2 PO; -POTA20TA13 PO; -TNR25 PO
[2017-08-18 18:23] VITALS: TEMP 37.3; Ht 172.7 cm; Wt 115.0 kg
[2017-08-18] MEDS ORDERED: ALLO300T2 PO (19:21)
[2017-08-18 19:24] LABS: BASO % 0.3 %; BASO ABS # 0.03 K/uL (0-0.2); EOS % 1.1 %; EOS ABS # 0.13 K/uL (0-0.5); HEMATOCRIT 44.5 % (42-52); HEMOGLOBIN 15.6 g/dL (14.0-18.0); IG# 0.04 K/uL (0.00-0.02); LYMPH % 9.9 %; LYMPH ABS # 1.13 K/uL (1.2-3.4); MEAN CELL VOLUME 98.9 fL (80-100); MEAN CORPUSCULAR HEMOGLOBIN 34.7 pg (25-34); MEAN CORPUSCULAR HGB CONC 35.1 g/dl (32-36); MEAN PLATELET VOLUME 9.6 fL (7.4-10.4); MONO ABS # 0.57 K/uL (0.11-0.59); NEUT % 83.3 %; NEUT ABS # 9.46 K/uL (1.4-6.5); PLATELET COUNT 174 K/uL (130-400); RED CELL DISTRIBUTION WIDTH CV 14.3 % (11.5-14.5); RED CELL DISTRIBUTION WIDTH SD 51.7 fL (36.4-46.3); WHITE BLOOD COUNT 11.36 K/uL (4.8-10.8)
[2017-08-18 19:42] LABS: CREATININE 1.71 mg/dl (0.60-1.40)
[2017-08-18 19:46] LABS: TOTAL PROTEIN 8.4 gm/dl (6.4-8.2)
[2017-08-18 20:13] LABS: INR 1.7 (0.9-1.1); PTT PATIENT 35.2 SECONDS (21.0-31.0)
--- NOTE | 2017-08-18 20:15 | DIAGNOSTIC IMAGING REPORT ---
ABD/PELVIS WITHOUT FOR STONE CT DOSE: 1850.48 mGy.cm HISTORY: Pain rlq pain TECHNIQUE: Multiaxial CT images of the abdomen and pelvis were performed without the use of intravenous and oral contrast according to the standard department stone protocol. A dose lowering technique was utilized adhering to the principles of ALARA. COMPARISON STUDY: 11/03/2016 FINDINGS: Chronic left and to a lesser extent right basilar atelectatic, chronic fibrotic change. Mild hepatomegaly with fatty infiltration. Mild splenomegaly. Partial fatty replacement of the pancreas. Left kidney demonstrates a partial staghorn calculus at its upper pole unchanged. Slight chronic fullness right renal pelvis and collecting system unchanged in the prior study. Nonobstructing calcification mid pole right kidney posteriorly. There are findings of a subtotal colectomy with a right sided ostomy. Operative bowel changes are similar. There are no obstructive characteristics. Chronic and postoperative presacral changes are stable. There is a chronic subcutaneous linear ulceration extending to the left lateral margin of the cecum unchanged in the prior study. It is not appear to be progression of erosive changes of the left posterior sacrum. This component of the study remain stable. IMPRESSION: 1. Chronic postoperative changes as discussed. 2. No evidence for bowel obstructive change. 3. Chronic fullness right renal pelvis and collecting system with several nonobstructing renal calcifications unchanged in the prior study. 4. Chronic left and to a lesser extent basilar fibrotic/atelectatic change. 5. Chronic linear soft tissue ulceration left posterior sacral region considered stable compared to the prior study. 6. Overall, stable exam with no acute process compared to the prior study. The above report was generated using voice recognition software. It may contain grammatical, syntax or spelling errors. Electronically signed by: Teddy Wen M.D. 08/18/2017 8:14 PM Dictated Date/Time: 08/18/2017 8:06 PM
[2017-08-18] MEDS ORDERED: CEFTRIAXONE SOD INJ 1 GM ADDVIAL IV STA (20:23)
[2017-08-18] MEDS ORDERED: CEPH500C PO (20:30)
--- NOTE | 2017-08-18 20:30 | EMERGENCY ROOM VISIT NOTE ---
History Report prepared by Jarocho: Angeles Montemayor Under the Supervision of: Dr. Steve Conner D.O. First contact with patient: 18:28 Chief Complaint: ABDOMINAL PAIN Stated Complaint: STOMACH PAIN,100.2 TEMP, CLOUDY URINE Nursing Triage Summary: pt to the ED with c/o cloudy urine and concern for uti pt has right sided abd pain near one of his scars pt is wheelchair bound History of Present Illness The patient is a 47 year old male who presents to the Emergency Room with complaints of worsening RLQ abdominal pain starting this morning. The pain worsens when he is jostled. He notes that riding over a bump with his wheelchair worsened his pain. The patient has also had cloudy urine and a fever of 100.2. His heart rate has been increased. He notes hearing loss in his left ear for a month now. He has a colostomy in place which is functioning normally. He has a history of endocarditis. He still has his appendix. Source of History: patient Onset: this morning Position: abdomen (RLQ) Quality: other (pain) Timing: worsening Modifying Factors (Worsening): other (being jostled) Associated Symptoms: + fevers, + urinary symptoms Note: Pt reports tachycardia. Review of Systems See HPI for pertinent positives & negatives. A total of 10 systems reviewed and were otherwise negative. Past Medical & Surgical Medical Problems: (1) Bilateral lower leg cellulitis (2) CHF (congestive heart failure) (3) Coagulopathy (4) Diabetic nephropathy (5) DM type 2 (diabetes mellitus, type 2) (6) E coli infection (7) Edema of right lower extremity (8) Endocarditis (9) Gout (10) Gout (11) Hematuria (12) Hepatitis C (13) Leg pain, bilateral (14) Nephrolithiasis (15) Nocturnal hypoxemia (16) Paraplegia (17) Pneumonia (18) Pneumonia (19) Pulmonary emboli (20) Shortness of breath (21) Stroke (22) Supratherapeutic INR (23) UTI (urinary tract infection) Surgical Problems: (1) H/O brain surgery (2) Hx of CABG (3) S/P cardiac cath (4) S/P colostomy Family History Cancer Diabetes mellitus Gallbladder disease Heart disease Hypertension Kidney disease Lung disease Social History Smoking Status: Former Smoker Alcohol Use: none Marital Status: Housing Status: lives with family Occupation Status: disabled Current/Historical Medications Scheduled Allopurinol (Zyloprim), 300 MG PO DAILY Aspirin (Aspirin EC Low Dose), 81 MG PO QAM Atenolol (Atenolol), 25 MG PO DAILY Cephalexin Monohydrate (Keflex), 500 MG PO QID Colchicine (Colchicine), 0.6 MG PO DAILY Furosemide (Furosemide), 40 MG PO DAILY Gabapentin (Gabapentin), 600 MG PO TID Insulin Aspart (Novolog Flexpen), 1 DOSE SC BID Insulin Glargine (Toujeo Solostar), 100 UNITS SC BID Magnesium Oxide (Mag-Ox), 400 MG PO DAILY Pantoprazole (Pantoprazole Sodium), 40 MG PO DAILY Potassium Chloride Microencaps (Potassium Chloride Er), 20 MEQ PO DAILY Warfarin Sodium (Warfarin Sodium), 2.5 MG PO 2XWK Warfarin Sodium (Warfarin Sodium), 5 MG PO 5XWK Scheduled PRN Miconazole Nitrate (Desenex Shake Powder), 1 APPLN TOP QID PRN for Affected Area (s) Nystatin (Topical) (Nystop), 1 APPLN TOP BID PRN for Affected Skin Folds Oxycodone Hcl (Oxycodone Hcl), 10 MG PO 5XD PRN for Pain Allergies Coded Allergies: No Known Allergies (Verified , 11/03/16) Physical Exam Vital Signs Date Time Temp Pulse Resp B/P (MAP) Pulse Ox O2 Delivery O2 Flow Rate FiO2 08/18/17 21:10 81 18 127/81 96 08/18/17 18:23 37.3 97 20 132/83 94 Room Air Physical Exam CONSTITUTIONAL/VITAL SIGNS: Reviewed / noted above. GENERAL: Non-toxic in appearance. INTEGUMENTARY: Warm, dry, and [place]. HEAD: Normocephalic. EYES: without scleral icterus or trauma. ENT/OROPHARYNX: clear and moist. LYMPHADENOPATHY/NECK: Is supple without lymphadenopathy or meningismus. RESPIRATORY: Lungs clear and equal. CARDIOVASCULAR: Regular rate and rhythm. GI/ABDOMEN: RLQ colostomy. There is tenderness to palpation above the colostomy site in the right lower abdomen. EXTREMITIES: Warm and well perfused. BACK: No CVA tenderness. NEUROLOGICAL: Chronic paraplegia. PSYCHIATRIC: normal affect. MUSCULOSKELETAL: Normally developed with good muscle tone. Medical Decision & Procedures ER Provider Diagnostic Interpretation: Radiology results as stated below per my review and radiologist interpretation: ABD/PELVIS WITHOUT FOR STONE CT DOSE: 1850.48 mGy.cm HISTORY: Pain rlq pain TECHNIQUE: Multiaxial CT images of the abdomen and pelvis were performed without the use of intravenous and oral contrast according to the standard department stone protocol. A dose lowering technique was utilized adhering to the principles of ALARA. COMPARISON STUDY: 11/03/2016 FINDINGS: Chronic left and to a lesser extent right basilar atelectatic, chronic fibrotic change. Mild hepatomegaly with fatty infiltration. Mild splenomegaly. Partial fatty replacement of the pancreas. Left kidney demonstrates a partial staghorn calculus at its upper pole unchanged. Slight chronic fullness right renal pelvis and collecting system unchanged in the prior study. Nonobstructing calcification mid pole right kidney posteriorly. There are findings of a subtotal colectomy with a right sided ostomy. Operative bowel changes are similar. There are no obstructive characteristics. Chronic and postoperative presacral changes are stable. There is a chronic subcutaneous linear ulceration extending to the left lateral margin of the cecum unchanged in the prior study. It is not appear to be progression of erosive changes of the left posterior sacrum. This component of the study remain stable. IMPRESSION: 1. Chronic postoperative changes as discussed. 2. No evidence for bowel obstructive change. 3. Chronic fullness right renal pelvis and collecting system with several nonobstructing renal calcifications unchanged in the prior study. 4. Chronic left and to a lesser extent basilar fibrotic/atelectatic change. 5. Chronic linear soft tissue ulceration left posterior sacral region considered stable compared to the prior study. 6. Overall, stable exam with no acute process compared to the prior study. The above report was generated using voice recognition software. It may contain grammatical, syntax or spelling errors. Electronically signed by: Teddy Wen M.D. 08/18/2017 8:14 PM Dictated Date/Time: 08/18/2017 8:06 PM Laboratory Results 08/18/17 19:14 Red Blood Count 4.50, Mean Corpuscular Volume 98.9, Mean Corpuscular Hemoglobin 34.7, Mean Corpuscular Hemoglobin Concent 35.1, Mean Platelet Volume 9.6, Neutrophils (%) (Auto) 83.3, Lymphocytes (%) (Auto) 9.9, Monocytes (%) (Auto) 5.0, Eosinophils (%) (Auto) 1.1, Basophils (%) (Auto) 0.3, Neutrophils # (Auto) 9.46, Lymphocytes # (Auto) 1.13, Monocytes # (Auto) 0.57, Eosinophils # (Auto) 0.13, Basophils # (Auto) 0.03 08/18/17 19:14 Test 08/18/17 19:14 08/18/17 19:16 08/18/17 19:45 White Blood Count 11.36 K/uL (4.8-10.8) Red Blood Count 4.50 M/uL (4.7-6.1) Hemoglobin 15.6 g/dL (14.0-18.0) Hematocrit 44.5 % (42-52) Mean Corpuscular Volume 98.9 fL (80-100) Mean Corpuscular Hemoglobin 34.7 pg (25-34) Mean Corpuscular Hemoglobin Concent 35.1 g/dl (32-36) Platelet Count 174 K/uL (130-400) Mean Platelet Volume 9.6 fL (7.4-10.4) Neutrophils (%) (Auto) 83.3 % Lymphocytes (%) (Auto) 9.9 % Monocytes (%) (Auto) 5.0 % Eosinophils (%) (Auto) 1.1 % Basophils (%) (Auto) 0.3 % Neutrophils # (Auto) 9.46 K/uL (1.4-6.5) Lymphocytes # (Auto) 1.13 K/uL (1.2-3.4) Monocytes # (Auto) 0.57 K/uL (0.11-0.59) Eosinophils # (Auto) 0.13 K/uL (0-0.5) Basophils # (Auto) 0.03 K/uL (0-0.2) RDW Standard Deviation 51.7 fL (36.4-46.3) RDW Coefficient of Variation 14.3 % (11.5-14.5) Immature Granulocyte % (Auto) 0.4 % Immature Granulocyte # (Auto) 0.04 K/uL (0.00-0.02) Anion Gap 10.0 mmol/L (3-11) Est Creatinine Clear Calc Drug Dose 67.2 ml/min Estimated GFR () 54.8 Estimated GFR (Non- 47.3 BUN/Creatinine Ratio 11.8 (10-20) Calcium Level 9.0 mg/dl (8.5-10.1) Total Bilirubin 1.3 mg/dl (0.2-1) Direct Bilirubin 0.3 mg/dl (0-0.2) Aspartate Amino Transf (AST/SGOT) 129 U/L (15-37) Alanine Aminotransferase (ALT/SGPT) 82 U/L (12-78) Alkaline Phosphatase 175 U/L (45-117) Total Protein 8.4 gm/dl (6.4-8.2) Albumin 3.0 gm/dl (3.4-5.0) Lipase 217 U/L (73-393) Beta-Hydroxybutyric Acid 1.66 mg/dL (0.2-2.81) Urine Color YELLOW Urine Appearance CLEAR (CLEAR) Urine pH 7.0 (4.5-7.5) Urine Specific [place] 1.015 (1.000-1.030) Urine Protein 2+ (NEG) Urine Glucose (UA) TRACE (NEG) Urine Ketones NEG (NEG) Urine Occult Blood 1+ (NEG) Urine Nitrite POS (NEG) Urine Bilirubin NEG (NEG) Urine Urobilinogen NEG (NEG) Urine Leukocyte Esterase SMALL (NEG) Urine WBC (Auto) 5-10 /hpf (0-5) Urine RBC (Auto) 0-4 /hpf (0-4) Urine Hyaline Casts (Auto) 1-5 /lpf (0-5) Urine Epithelial Cells (Auto) >30 /lpf (0-5) Urine Bacteria (Auto) 4+ (NEG) Urine Renal Epithelial Cells 0-5 /lpf (0-5) Prothrombin Time 17.5 SECONDS (9.0-12.0) Prothromb Time International Ratio 1.7 (0.9-1.1) Activated Partial Thromboplast Time 35.2 SECONDS (21.0-31.0) Partial Thromboplastin Ratio 1.4 Laboratory results as stated above per my review. Medications Administered Medications (Trade) Dose Ordered Sig/Alvaro Route Start Time Stop Time Status Last Admin Dose Admin Ceftriaxone Sodium (Rocephin Inj) 1 gm NOW STAT IV 08/18/17 20:23 08/18/17 20:26 DC 08/18/17 20:38 1 GM ED Course 1838: Previous medical records were reviewed. The patient was evaluated in room A3. A complete history and physical examination was performed. 2022: Rocephin Inj 1 gm IV. 2029: On reevaluation, the patient is resting comfortably. I discussed the results and findings with the patient. He verbalized agreement of the treatment plan. He was discharged home. Medical Decision Differential considered: pancreatitis, hepatitis, or acute cholecystitis, AAA, UTI, pyelonephritis, kidney stones, appendicitis, diverticulitis, shingles, bowel obstruction mesenteric ischemia, intussusception,hernia, testicular torsion. This is a 47-year-old male who presents to the ED with a chief complaint of right-sided abdominal pain and possibly urinary symptoms. The patient has chronic history of paraplegia related to stroke due to endocarditis from IV drug abuse in the past. He became paraplegic in 2013. The patient has a colostomy on the right side. He reported having a fever of 100.2 at 5 PM today. His right lower quadrant abdominal pain is been going on for about the past 20-24 hours. The patient's physical exam revealed some tenderness just above the colostomy on the right. Exam was otherwise unremarkable. He does have chronic paraplegia. CT scan of the abdomen and pelvis did not show any acute process. INR is 1.7. He is on Coumadin chronically. Creatinine is 1.7. Glucose was 336. Bilirubin, AST, ALT and alkaline phosphatase are elevated. These have been chronically elevated in the past. Lipase was negative. Urine suggest infection. The patient was treated with IV Rocephin. He was discharged on Keflex. Medication Reconcilliation Current Medication List: was personally reviewed by me Blood Pressure Screening Patient's blood pressure: Normal blood pressure Blood pressure disposition: Did not require urgent referral Impression Primary Impression: UTI (urinary tract infection) Scribe Attestation The scribe's documentation has been prepared under my direction and personally reviewed by me in its entirety. I confirm that the note above accurately reflects all work, treatment, procedures, and medical decision making performed by me. Departure Information Dispostion Home / Self-Care Prescriptions Cephalexin Monohydrate (Keflex) 500 Mg Cap 500 MG PO QID, #20 CAP Prov: Steve Conner D.O. 08/18/17 Referrals Demarcus Nicholson D.O. (PCP) Patient Instructions My [facility] Additional Instructions Keflex as prescribed for UTI. Follow-up with your doctor for further care and evaluation in 1-2 days. Return to the emergency department for worsening or new symptoms or any concerns. You have been examined and treated today on an emergency basis only. This is not a substitute for, or an effort to provide, complete comprehensive medical care. It is impossible to recognize and treat all injuries or illnesses in a single emergency department visit. It is therefore important that you follow up closely with your doctor. Call as soon as possible for an appointment.
[2017-08-18 21:10] VITALS: BP 127/81; PULSE 81; O2SAT 96
[2017-10-02] MEDS ORDERED: TNR25 PO (05:18)
[2017-10-02] MEDS ORDERED: NYST100010 TOP (18:21)
[2017-10-02] MEDS ORDERED: ASPI-320 PO (19:21)
[2018-02-04] MEDS ORDERED: CEPH-571 PO (08:09)
[2018-02-06] MEDS ORDERED: CIPR-255 PO (12:15)
== END 2017-08-18 21:24 | disposition home or self-care (01) ==
LOC: C.EDB 18:22 → C.EDA 21:24
DX: N39.0 Urinary tract infection, site not specified (principal); E11.21 Type 2 diabetes mellitus with diabetic nephropathy; M10.9 Gout, unspecified; I50.9 Heart failure, unspecified; I69.369 Other paralytic syndrome following cerebral infarction affecting unspecified side; G82.20 Paraplegia, unspecified; Z86.711 Personal history of pulmonary embolism; Z87.01 Personal history of pneumonia (recurrent); Z87.440 Personal history of urinary (tract) infections; Z87.891 Personal history of nicotine dependence; Z95.1 Presence of aortocoronary bypass graft; Z93.3 Colostomy status; Z98.890 Other specified postprocedural states; Z83.3 Family history of diabetes mellitus; Z82.49 Family history of ischemic heart disease and other diseases of the circulatory system; Z79.01 Long term (current) use of anticoagulants; Z79.2 Long term (current) use of antibiotics; Z79.4 Long term (current) use of insulin; Z79.899 Other long term (current) drug therapy

== ENCOUNTER 2017-10-02 19:03 | Emergency (ER) | payer OTHER ==
[~2017-10-02] VITALS: Ht 172.7 cm; Wt 146.8 kg
[~2017-10-02 19:03] MED LIST changes: +ALLO300T2 PO; +CEPH500C PO; -COLC0.6T54 PO; -FRS/40 PO; -LCTX PO; -LEVA1.255 NEB; -MAGN400T6 PO; +NYST100010 TOP; -RRIPRATNEB NEB; +TNR25 PO; -WARF-246 PO
[2017-10-02] MEDS ORDERED: NRN600 PO (19:18)
[2017-10-02] MEDS ORDERED: OXYC-164 PO (19:18)
[2017-10-02] MEDS ORDERED: PANT40TA2 PO (19:18)
[2017-10-02] MEDS ORDERED: ASPEC81 PO (19:21)
[2017-10-02] MEDS ORDERED: POTA20TA13 PO (19:21)
[2017-10-02] MEDS ORDERED: INSU1.2I SC (19:24)
[2017-10-02] MEDS ORDERED: NVLGI/PEN SC (19:24)
[2017-10-02] MEDS ORDERED: MCTP TOP (19:31)
[2017-10-02] MEDS ORDERED: LSX40 PO (19:31)
[2017-10-02] MEDS ORDERED: COLC1TAB25 PO (19:31)
[2017-10-02] MEDS ORDERED: MAGN400T5 PO (19:31)
[2017-10-02] MEDS ORDERED: WARF-246 PO ×2 (19:35)
[2017-10-02 19:39] VITALS: Ht 172.7 cm; Wt 146.8 kg
--- NOTE | 2017-10-02 20:09 | EMERGENCY ROOM VISIT NOTE ---
History Report prepared by Jarocho: Roque Arenas Under the Supervision of: Dr. Steve Pérez M.D. First contact with patient: 20:03 Chief Complaint: TESTICULAR PAIN Stated Complaint: PAIN IN RIGHT TESTICLE Nursing Triage Summary: pt c/o right testicular pain, began yesterday and worse tonight. olvin injury. History of Present Illness The patient is a 47 year old male who presents to the Emergency Room with complaints of worsening right testicle pain that started yesterday. He states that it worsened prior to arrival tonight. The patient notes no recent trauma to the testicle. The patient says that he has a colostomy, and his bowels have been coming out fine. Source of History: patient Onset: Yesterday Position: other (testicle - right) Symptom Intensity: getting bad prior to arrival tonight Quality: other (report no injury or trauma) Timing: worsening Note: No other associated symptoms noted. Review of Systems See HPI for pertinent positives & negatives. A total of 10 systems reviewed and were otherwise negative. Past Medical & Surgical Medical Problems: (1) Bilateral lower leg cellulitis (2) CHF (congestive heart failure) (3) Coagulopathy (4) Diabetic nephropathy (5) DM type 2 (diabetes mellitus, type 2) (6) E coli infection (7) Edema of right lower extremity (8) Endocarditis (9) Gout (10) Gout (11) Hematuria (12) Hepatitis C (13) Leg pain, bilateral (14) Nephrolithiasis (15) Nocturnal hypoxemia (16) Paraplegia (17) Pneumonia (18) Pneumonia (19) Pulmonary emboli (20) Shortness of breath (21) Stroke (22) Supratherapeutic INR (23) UTI (urinary tract infection) Surgical Problems: (1) H/O brain surgery (2) Hx of CABG (3) S/P cardiac cath (4) S/P colostomy Family History Cancer Diabetes mellitus Gallbladder disease Heart disease Hypertension Kidney disease Lung disease Social History Smoking Status: Never Smoker Alcohol Use: none Marital Status: Housing Status: lives with family Occupation Status: disabled Current/Historical Medications Scheduled Aspirin (Aspirin EC Low Dose), 81 MG PO QAM Atenolol (Atenolol), 25 MG PO DAILY Ciprofloxacin Hcl (Cipro), 1 TAB PO BID Colchicine (Colchicine), 0.6 MG PO DAILY Febuxostat (Uloric), 80 MG PO DAILY Furosemide (Furosemide), 40 MG PO DAILY Gabapentin (Gabapentin), 600 MG PO TID Insulin Aspart (Novolog Flexpen), 1 DOSE SC BID Insulin Glargine (Toujeo Solostar), 100 UNITS SC BID Magnesium Oxide (Mag-Ox), 400 MG PO DAILY Pantoprazole (Pantoprazole Sodium), 40 MG PO DAILY Potassium Chloride Microencaps (Potassium Chloride Er), 20 MEQ PO DAILY Warfarin Sodium (Warfarin Sodium), 2.5 MG PO 4XWK Warfarin Sodium (Warfarin Sodium), 5 MG PO 3XWK Scheduled PRN Miconazole Nitrate (Desenex Shake Powder), 1 APPLN TOP QID PRN for Affected Area (s) Nystatin (Topical) (Nystop), 1 APPLN TOP BID PRN for Affected Skin Folds Oxycodone Hcl (Oxycodone Hcl), 10 MG PO 5XD PRN for Pain Allergies Coded Allergies: No Known Allergies (Verified , 11/03/16) Physical Exam Vital Signs Date Time Temp Pulse Resp B/P (MAP) Pulse Ox O2 Delivery O2 Flow Rate FiO2 10/02/17 21:11 36.8 82 18 150/97 96 Room Air 10/02/17 19:39 36.6 82 18 135/86 96 Room Air Physical Exam GENERAL: Patient is a healthy-appearing well-nourished 47 year old male. HEAD: Normocephalic atraumatic EYES: Ocular movements intact pupils equal and react to light OROPHARYNX mucous membranes are moist no exudates present no erythema or edema present NECK: Supple no nuchal rigidity CHEST: Good equal expansion LUNGS: Clear and equal to auscultation CARDIAC: Normal S1 and S2 ABDOMEN: Soft nontender no guarding BACK: No CVA tenderness : Significantly tender right testicle, cremasteric reflexes in place. EXTREMITIES: No pain upon palpation normal muscle strength in all groups no clubbing cyanosis or edema NEURO: Patient is following commands and answering questions appropriately. Alert and oriented x3 Cranial Nerves 2-12 grossly intact Medical Decision & Procedures ER Provider Diagnostic Interpretation: US results as stated below per my review and radiologist interpretation: (TESTICULAR) SCROTUM-CONT CLINICAL HISTORY: 47 years-old Male with Pt c/o Rt testicular pain . Acute right-sided testicular pain COMPARISON STUDY: CT abdomen and pelvis 08/18/2017 TECHNIQUE: Real-time, grayscale, and color Doppler sonography of the testes and scrotum is performed. Images are reviewed in the transverse and longitudinal planes. FINDINGS: RIGHT HEMISCROTUM: The right testis measures 2.5 x 3.3 x 2.6 cm and the parenchyma appears unremarkable. No intratesticular mass is seen. Normal-appearing arterial inflow is present within the right testicle. There is mild heterogeneity and hypervascularity of the right epididymal tail. No varicocele or hydrocele is identified. LEFT HEMISCROTUM: The left testis measures 3.3 x 4.3 x 2.5 cm and the parenchyma appears unremarkable. No intratesticular mass is seen. Normal-appearing arterial inflow is present within the left testicle. The left epididymal head appears normal. No varicocele or hydrocele is identified. IMPRESSION: 1. Mild heterogeneity and hypervascularity of the right epididymal tail is suspicious for epididymitis. 2. The right testicle is slightly smaller than the left, of unknown clinical significance. No acute abnormality of the testicles identified. 3. No evidence of testicular torsion. The above report was generated using voice recognition software. It may contain grammatical, syntax or spelling errors. Electronically signed by: Will Conroy M.D. 10/02/2017 9:12 PM Dictated Date/Time: 10/02/2017 9:08 PM Laboratory Results Test 10/02/17 20:33 Urine Color YELLOW Urine Appearance CLOUDY (CLEAR) Urine pH 5.0 (4.5-7.5) Urine Specific [place] 1.012 (1.000-1.030) Urine Protein 2+ (NEG) Urine Glucose (UA) NEG (NEG) Urine Ketones NEG (NEG) Urine Occult Blood 1+ (NEG) Urine Nitrite NEG (NEG) Urine Bilirubin NEG (NEG) Urine Urobilinogen NEG (NEG) Urine Leukocyte Esterase LARGE (NEG) Urine WBC (Auto) >30 /hpf (0-5) Urine RBC (Auto) 5-10 /hpf (0-4) Urine Hyaline Casts (Auto) 0 /lpf (0-5) Urine Epithelial Cells (Auto) 20-30 /lpf (0-5) Urine Bacteria (Auto) NEG (NEG) Date/Time Source Procedure Growth Status 10/02/17 20:33 Urine , Clean Catch Urine Culture - Final GREATER THAN THREE TYPES OF ORGANISMS... Complete Labs reviewed by ED physician. Medications Administered Medications (Trade) Dose Ordered Sig/Alvaro Route Start Time Stop Time Status Last Admin Dose Admin Ibuprofen (Motrin Tab) 600 mg NOW STAT PO 10/02/17 20:22 10/02/17 20:23 DC 10/02/17 20:28 600 MG Oxycodone/ Acetaminophen (Percocet 5-325mg Tab) 2 tab NOW STAT PO 10/02/17 20:22 10/02/17 20:23 DC 10/02/17 20:28 2 TAB Azithromycin (Zithromax Tab) 1,000 mg NOW STAT PO 10/02/17 21:18 10/02/17 21:20 DC 10/02/17 21:35 1,000 MG Ceftriaxone Sodium (Rocephin Im) 250 mg NOW STAT IM 10/02/17 21:18 10/02/17 21:20 DC 10/02/17 21:36 250 MG Ciprofloxacin (Ciprofloxacin Tab) 500 mg NOW STAT PO 10/02/17 21:18 10/02/17 21:20 DC 10/02/17 21:36 500 MG ED Course 2005: Past medical records reviewed. The patient was evaluated in room C6. A complete history and physical examination was performed. 2021: Ordered Percocet 5-325mg Tab 2 tab PO, Motrin Tab 600 mg PO. 2117: Ordered Ciprofloxacin Tab 500 mg PO, Rocephin IM 250 mg IM, Zithromax Tab 1000 mg PO. 2120: Upon reexamination the patient is resting. I discussed results and treatment plan with the patient. He verbalizes agreement and understanding. The patient is ready for discharge. Medical Decision Differential diagnosis: Etiologies such as torsion, mass, infection, hernia, hydrocele, epididymitis, trauma, intra-abdominal process, as well as others were entertained. This is a 47-year-old male who presents emergency department complaining of right testicular pain. Patient was sent for an ultrasound of the testicle. This is concerning for epididymitis. He was also sent for a urinalysis. The patient was given ibuprofen for the pain. Repeat examination revealed improvement patient's symptoms. I recommended the patient follow-up with urology. He was started on Rocephin azithromycin and Cipro in the emergency department. He was told were tight fitting underwear. Patient was in agreement with the treatment plan. Medication Reconcilliation Current Medication List: was personally reviewed by me Blood Pressure Screening Patient's blood pressure: Elevated blood pressure Blood pressure disposition: Elevated BP felt to be situational Impression Primary Impression: Acute epididymitis Scribe Attestation The scribe's documentation has been prepared under my direction and personally reviewed by me in its entirety. I confirm that the note above accurately reflects all work, treatment, procedures, and medical decision making performed by me. Departure Information Dispostion Home / Self-Care Prescriptions Ciprofloxacin Hcl (CIPRO) 500 Mg Tab 1 TAB PO BID for 10 Days, #20 TAB Prov: Steve Pérez MD 10/02/17 Referrals Demarcus Nicholson D.O. (PCP) Patient Instructions Epididymitis Orchitis, Epididymitis Orchitis Tx, My [facility]
[2017-10-02] MEDS ORDERED: IBUPROFEN 600 MG TAB PO STA (20:22)
[2017-10-02] MEDS ORDERED: OXYCODONE/ACETAMINOPHEN 5-325 TAB PO STA (20:22)
[2017-10-02 21:11] VITALS: BP 150/97; PULSE 82; TEMP 36.8; O2SAT 96
--- NOTE | 2017-10-02 21:13 | DIAGNOSTIC IMAGING REPORT ---
(TESTICULAR) SCROTUM-CONT CLINICAL HISTORY: 47 years-old Male with Pt c/o Rt testicular pain . Acute right-sided testicular pain COMPARISON STUDY: CT abdomen and pelvis 08/18/2017 TECHNIQUE: Real-time, grayscale, and color Doppler sonography of the testes and scrotum is performed. Images are reviewed in the transverse and longitudinal planes. FINDINGS: RIGHT HEMISCROTUM: The right testis measures 2.5 x 3.3 x 2.6 cm and the parenchyma appears unremarkable. No intratesticular mass is seen. Normal-appearing arterial inflow is present within the right testicle. There is mild heterogeneity and hypervascularity of the right epididymal tail. No varicocele or hydrocele is identified. LEFT HEMISCROTUM: The left testis measures 3.3 x 4.3 x 2.5 cm and the parenchyma appears unremarkable. No intratesticular mass is seen. Normal-appearing arterial inflow is present within the left testicle. The left epididymal head appears normal. No varicocele or hydrocele is identified. IMPRESSION: 1. Mild heterogeneity and hypervascularity of the right epididymal tail is suspicious for epididymitis. 2. The right testicle is slightly smaller than the left, of unknown clinical significance. No acute abnormality of the testicles identified. 3. No evidence of testicular torsion. The above report was generated using voice recognition software. It may contain grammatical, syntax or spelling errors. Electronically signed by: Will Conroy M.D. 10/02/2017 9:12 PM Dictated Date/Time: 10/02/2017 9:08 PM
[2017-10-02] MEDS ORDERED: AZITHROMYCIN 250 MG TAB PO STA (21:18)
[2017-10-02] MEDS ORDERED: CIPROFLOXACIN 250 MG TAB PO STA (21:18)
[2017-10-02] MEDS ORDERED: CEFTRIAXONE SOD 350MG/ML 1 GM VIAL IM STA (21:18)
[2017-10-02] MEDS ORDERED: CIPR-255 PO (21:26)
[2017-10-02] MEDS ORDERED: FEBU80TA PO (21:42)
== END 2017-10-02 21:53 | disposition home or self-care (01) ==
LOC: C.EDB 19:04 → C.EDC 21:53
DX: N45.1 Epididymitis (principal); E11.21 Type 2 diabetes mellitus with diabetic nephropathy; G82.20 Paraplegia, unspecified; B19.20 Unspecified viral hepatitis C without hepatic coma; Z93.3 Colostomy status; Z79.82 Long term (current) use of aspirin; Z79.899 Other long term (current) drug therapy; Z79.4 Long term (current) use of insulin; Z98.890 Other specified postprocedural states; Z83.3 Family history of diabetes mellitus; Z82.49 Family history of ischemic heart disease and other diseases of the circulatory system

== ENCOUNTER → 2017-10-18 | Outpatient (CLI) | payer OTHER ==
[~2017-10-18] MED LIST changes: -ALLO300T2 PO; +ASPEC81 PO; -CEPH500C PO; +CIPR-255 PO; +COLC1TAB25 PO; +FEBU80TA PO; +INSU1.2I SC; +LSX40 PO; +MAGN400T5 PO; +MCTP TOP; +NRN600 PO; +NVLGI/PEN SC; +OXYC-164 PO; +PANT40TA2 PO; +POTA20TA13 PO; +WARF-246 PO
--- NOTE | 2017-10-18 13:13 | DIAGNOSTIC IMAGING REPORT ---
KUB HISTORY: Follow-up study in a patient with nephrolithiasis. NEPHROLITHIASIS COMPARISON: None. FINDINGS: The bowel gas pattern is non-obstructive. There is no organomegaly. Renal shadows are partially obscured by bowel gas. Bilateral nephrolithiasis is better seen on comparison CT. Calculus of the superior pole left kidney is again seen, 7 mm. No ureteral calculi identified. Right-sided colostomy. Sternotomy wires are seen. No pneumoperitoneum or pneumatosis. No fracture. Degenerative changes of the bilateral hips. IMPRESSION: 1. 7 mm calculus of the superior pole left kidney redemonstrated. Additional previously noted bilateral nephrolithiasis are not visualized on this study. No ureteral calculi identified. 2. Nonobstructive bowel gas pattern. Electronically signed by: Will Conroy M.D. 10/18/2017 1:11 PM Dictated Date/Time: 10/18/2017 1:00 PM
== END | disposition home or self-care (01) ==
LOC: C.RAD 12:27
PROVIDERS: ATTEND Urology
DX: N20.0 Calculus of kidney (principal)

== ENCOUNTER → 2017-12-08 | Outpatient (CLI) | payer OTHER ==
[~2017-12-08] MED LIST changes: -ASPEC81 PO; +ASPI-320 PO
[2017-12-08 13:05] LABS: BASO % 0.4 %; BASO ABS # 0.03 K/uL (0-0.2); EOS % 2.3 %; EOS ABS # 0.16 K/uL (0-0.5); HEMATOCRIT 46.4 % (42-52); HEMOGLOBIN 15.8 g/dL (14.0-18.0); IG# 0.02 K/uL (0.00-0.02); LYMPH % 17.5 %; MEAN CELL VOLUME 96.5 fL (80-100); MEAN CORPUSCULAR HEMOGLOBIN 32.8 pg (25-34); MEAN CORPUSCULAR HGB CONC 34.1 g/dl (32-36); MEAN PLATELET VOLUME 9.8 fL (7.4-10.4); MONO % 4.1 %; MONO ABS # 0.28 K/uL (0.11-0.59); NEUT % 75.4 %; NEUT ABS # 5.17 K/uL (1.4-6.5); PLATELET COUNT 178 K/uL (130-400); RED CELL DISTRIBUTION WIDTH CV 14.8 % (11.5-14.5); RED CELL DISTRIBUTION WIDTH SD 52.5 fL (36.4-46.3); WHITE BLOOD COUNT 6.86 K/uL (4.8-10.8)
[2017-12-08 14:00] LABS: ALBUMIN 3.1 gm/dl (3.4-5.0); ALT/SGPT 78 U/L (12-78); AST/SGOT 75 U/L (15-37); BLOOD UREA NITROGEN 26 mg/dl (7-18); CALCIUM 9.2 mg/dl (8.5-10.1); CARBON DIOXIDE 27 mmol/L (21-32); CREATININE 1.66 mg/dl (0.60-1.40); GLUCOSE 238 mg/dl (70-99); POTASSIUM 3.3 mmol/L (3.5-5.1); SODIUM 133 mmol/L (136-145)
[2017-12-08 14:09] LABS: ALKALINE PHOSPHATASE 180 U/L (45-117); CHOLESTEROL 180 mg/dl (0-200); TOTAL PROTEIN 8.2 gm/dl (6.4-8.2)
== END | disposition home or self-care (01) ==
LOC: C.LABPBG 10:34
PROVIDERS: ATTEND Internal Medicine Interventional Cardiology
DX: I50.9 Heart failure, unspecified (principal)

== ENCOUNTER 2018-03-23 21:22 | Inpatient (IN) | payer OTHER ==
[~2018-03-23] VITALS: Ht 172.7 cm; Wt 136.0 kg
[2018-03-23] MEDS ORDERED: SODIUM CHLORIDE 0.9% 1000ML 1,000 ML IV STA (21:42)
--- NOTE | 2018-03-23 21:56 | EMERGENCY ROOM VISIT NOTE ---
History Report prepared by Jarocho: Rickey Li Under the Supervision of: Dr. Fish Goodwin D.O. First contact with patient: 21:37 Chief Complaint: GI ASSESSMENT Stated Complaint: GI BLEED History of Present Illness The patient is a 47 year old male who presents to the Emergency Room with blood draining in his colostomy bag that he first noticed about 2 hours ago. He has changed the bag once already and it was full of blood at that time. The bag has been filling with blood constantly. The patent denies any abdominal pain. He notes that he had a bowel resection secondary to a history of Hirschsprung's Disease. He is on Coumadin and his INR level was 1.9 on his last check. Source of History: patient Onset: 2 hours ago Position: abdomen (RLQ Ostomy Bag) Quality: other (GI Bleed) Timing: constant Associated Symptoms: No abdominal pain Review of Systems See HPI for pertinent positives & negatives. A total of 10 systems reviewed and were otherwise negative. Past Medical & Surgical Medical Problems: (1) Bilateral lower leg cellulitis (2) CHF (congestive heart failure) (3) Coagulopathy (4) Diabetic nephropathy (5) DM type 2 (diabetes mellitus, type 2) (6) E coli infection (7) Edema of right lower extremity (8) Endocarditis (9) Gout (10) Gout (11) Hematuria (12) Hepatitis C (13) Leg pain, bilateral (14) Nephrolithiasis (15) Nocturnal hypoxemia (16) Paraplegia (17) Pneumonia (18) Pneumonia (19) Pulmonary emboli (20) Severe sepsis (21) Shortness of breath (22) Stroke (23) Supratherapeutic INR (24) UTI (urinary tract infection) Surgical Problems: (1) H/O brain surgery (2) Hx of CABG (3) S/P cardiac cath (4) S/P colostomy Family History Cancer Diabetes mellitus Gallbladder disease Heart disease Hypertension Kidney disease Lung disease Social History Smoking Status: Former Smoker Alcohol Use: none Drug Use: none Marital Status: Housing Status: lives with family Occupation Status: disabled Current/Historical Medications Scheduled Aspirin (Aspirin EC Low Dose), 81 MG PO QAM Atenolol (Atenolol), 25 MG PO DAILY Ciprofloxacin Hcl (Cipro), 1 TAB PO BID Colchicine (Colchicine), 0.6 MG PO DAILY Febuxostat (Uloric), 80 MG PO DAILY Furosemide (Furosemide), 40 MG PO DAILY Gabapentin (Gabapentin), 600 MG PO TID Insulin Aspart (Novolog Flexpen), 1 DOSE SC QID Insulin Glargine (Toujeo Solostar), 120 UNITS SC BID Magnesium Oxide (Mag-Ox), 400 MG PO DAILY Pantoprazole (Pantoprazole Sodium), 40 MG PO DAILY Potassium Chloride Microencaps (Potassium Chloride Er), 20 MEQ PO DAILY Warfarin Sodium (Warfarin Sodium), 2.5 MG PO 4XWK Warfarin Sodium (Warfarin Sodium), 5 MG PO 3XWK Scheduled PRN Miconazole Nitrate (Desenex Shake Powder), 1 APPLN TOP QID PRN for Affected Area (s) Nystatin (Topical) (Nystop), 1 APPLN TOP BID PRN for Affected Skin Folds Oxycodone Hcl (Oxycodone Hcl), 10 MG PO 5XD PRN for Pain Allergies Coded Allergies: No Known Allergies (Verified , 11/03/16) Physical Exam Vital Signs Date Time Temp Pulse Resp B/P (MAP) Pulse Ox O2 Delivery O2 Flow Rate FiO2 03/23/18 23:27 97 18 133/86 93 Room Air 03/23/18 22:06 98 18 133/85 94 Room Air 03/23/18 21:35 91 03/23/18 21:23 36.8 94 18 138/89 94 Room Air Physical Exam GENERAL: Patient is awake, alert, and in no acute distress. Patient is resting comfortably and showing no signs of anxiety EYES: The conjunctivae are clear. The pupils are round and reactive. EARS, NOSE, MOUTH AND THROAT: The nose is without any evidence of any deformity. Mucous membranes are moist. Tongue is midline NECK: The neck is nontender and supple. RESPIRATORY: Normal respiratory effort is noted. There is no evidence of wheezing rhonchi or rales to auscultation. CARDIOVASCULAR: Regular rate and rhythm noted. There no murmurs rubs or gallops normal S1 normal S2 GASTROINTESTINAL: The abdomen is mildly distended, but soft. Bowel sounds are present in all quadrants. Abdomen is nontender. There is an ostomy present in the right side of the abdomen. Dark blood is noted in the ostomy bag. No clots were noted at this time. MUSCULOSKELETAL/EXTREMITIES: There is no evidence of gross deformity. Full range of motion is noted in the hips and shoulders. SKIN: There is no obvious evidence of any rash. There is pedal edema noted bilaterally, with venous changes bilaterally. There are no petechiae, pallor or cyanosis noted. NEUROLOGIC: Patient is awake alert and oriented x3. Medical Decision & Procedures ER Provider Diagnostic Interpretation: Radiology results as stated below per my review and radiologist interpretation: CHEST ONE VIEW PORTABLE CLINICAL HISTORY: EVALUATE ALTERED MENTAL STATUS/WEAKNESS dyspnea COMPARISON STUDY: 02/04/2018 FINDINGS: No acute process. Prior median sternotomy. Chronic interstitial prominence left base. IMPRESSION: No acute process. The above report was generated using voice recognition software. It may contain grammatical, syntax or spelling errors. Electronically signed by: Teddy Wen M.D. 03/23/2018 10:07 PM Dictated Date/Time: 03/23/2018 10:07 PM Laboratory Results 03/23/18 21:15 Red Blood Count 4.24, Mean Corpuscular Volume 99.8, Mean Corpuscular Hemoglobin 33.5, Mean Corpuscular Hemoglobin Concent 33.6, Mean Platelet Volume 10.3, Neutrophils (%) (Auto) 78.5, Lymphocytes (%) (Auto) 14.1, Monocytes (%) (Auto) 4.6, Eosinophils (%) (Auto) 2.2, Basophils (%) (Auto) 0.4, Neutrophils # (Auto) 6.51, Lymphocytes # (Auto) 1.17, Monocytes # (Auto) 0.38, Eosinophils # (Auto) 0.18, Basophils # (Auto) 0.03 03/23/18 21:15 Test 03/23/18 21:15 03/23/18 22:08 03/23/18 23:49 White Blood Count 8.29 K/uL (4.8-10.8) Red Blood Count 4.24 M/uL (4.7-6.1) Hemoglobin 14.2 g/dL (14.0-18.0) Hematocrit 42.3 % (42-52) Mean Corpuscular Volume 99.8 fL (80-100) Mean Corpuscular Hemoglobin 33.5 pg (25-34) Mean Corpuscular Hemoglobin Concent 33.6 g/dl (32-36) Platelet Count 184 K/uL (130-400) Mean Platelet Volume 10.3 fL (7.4-10.4) Neutrophils (%) (Auto) 78.5 % Lymphocytes (%) (Auto) 14.1 % Monocytes (%) (Auto) 4.6 % Eosinophils (%) (Auto) 2.2 % Basophils (%) (Auto) 0.4 % Neutrophils # (Auto) 6.51 K/uL (1.4-6.5) Lymphocytes # (Auto) 1.17 K/uL (1.2-3.4) Monocytes # (Auto) 0.38 K/uL (0.11-0.59) Eosinophils # (Auto) 0.18 K/uL (0-0.5) Basophils # (Auto) 0.03 K/uL (0-0.2) RDW Standard Deviation 54.0 fL (36.4-46.3) RDW Coefficient of Variation 15.0 % (11.5-14.5) Immature Granulocyte % (Auto) 0.2 % Immature Granulocyte # (Auto) 0.02 K/uL (0.00-0.02) Anion Gap 11.0 mmol/L (3-11) Estimated GFR () 56.4 Estimated GFR (Non- 48.7 BUN/Creatinine Ratio 14.5 (10-20) Calcium Level 8.7 mg/dl (8.5-10.1) Magnesium Level 1.8 mg/dl (1.8-2.4) Total Bilirubin 0.8 mg/dl (0.2-1) Direct Bilirubin 0.3 mg/dl (0-0.2) Aspartate Amino Transf (AST/SGOT) 109 U/L (15-37) Alanine Aminotransferase (ALT/SGPT) 85 U/L (12-78) Alkaline Phosphatase 236 U/L (45-117) Troponin I < 0.015 ng/ml (0-0.045) Total Protein 8.3 gm/dl (6.4-8.2) Albumin 2.9 gm/dl (3.4-5.0) Beta-Hydroxybutyric Acid 1.84 mg/dL (0.2-2.81) Thyroid Stimulating Hormone (TSH) 1.590 uIu/ml (0.300-4.500) Urine Color YELLOW Urine Appearance CLOUDY (CLEAR) Urine pH 5.5 (4.5-7.5) Urine Specific [place] 1.018 (1.000-1.030) Urine Protein 3+ (NEG) Urine Glucose (UA) 1+ (NEG) Urine Ketones NEG (NEG) Urine Occult Blood 1+ (NEG) Urine Nitrite NEG (NEG) Urine Bilirubin NEG (NEG) Urine Urobilinogen NEG (NEG) Urine Leukocyte Esterase MODERATE (NEG) Urine WBC (Auto) >30 /hpf (0-5) Urine RBC (Auto) 0-4 /hpf (0-4) Urine Hyaline Casts (Auto) 0 /lpf (0-5) Urine Epithelial Cells (Auto) 20-30 /lpf (0-5) Urine Bacteria (Auto) 1+ (NEG) Urine Crystals TALC (NONE PRSENT) Urine Yeast (Auto) BUDDING (NONE PRSENT) Prothrombin Time 19.4 SECONDS (9.0-12.0) Prothromb Time International Ratio 1.9 (0.9-1.1) Activated Partial Thromboplast Time 35.2 SECONDS (21.0-31.0) Partial Thromboplastin Ratio 1.4 Laboratory results per my review. Medications Administered Medications (Trade) Dose Ordered Sig/Alvaro Route Start Time Stop Time Status Last Admin Dose Admin Sodium Chloride 1,000 ml @ 999 mls/hr Q1H1M STAT IV 03/23/18 21:42 03/23/18 22:42 DC 03/23/18 22:06 999 MLS/HR ECG Per My Interpretation Indication: other (GI Bleed) Rate (beats per minute): 97 Findings: no acute ischemic change, no ectopy, other (No THEO, no PVCs) ED Course 2136: The patient was evaluated in room B2. A complete history and physical examination were performed. 2141: Ordered Sodium Chloride 1000 mL @ 999 mL/hr IV. 2351: I discussed the case with Dr. Chris Cabrera [facility] Hospitalist. He will evaluate the patient for further treatment. Medical Decision Prior records/ancillary studies reviewed. Triage Nursing notes reviewed. Differential diagnosis: Etiologies such as diverticulosis, AVM, coagulopathy, colitis, inflammatory bowel disease, malignancy, Sarah-Smith tear, esophagitis, peptic ulcer disease , variceal bleed, gastritis, epistaxis, fissure, hemorrhoids, as well as others were entertained. The patient is a 47-year-old male who presented to the emergency permit for an evaluation of GI bleeding. The patient has a history of colostomy secondary to surgery for Hirschsprung's at a very young age. He also has a history of stroke as well as venous thromboembolic disease. For this reason the patient is currently taking Coumadin. The bleeding was initially significant with clots however this is slow down and appears to be dark blood at this time. I discussed patient's laboratory and radiographic studies with him. Given the fact that he does take Coumadin and he has had previous bowel surgery I discussed his case with the on-call [facility] hospitalist group. They have agreed to evaluate the patient in the emergency department for further management and disposition. Medication Reconcilliation Current Medication List: was personally reviewed by me Blood Pressure Screening Patient's blood pressure: Normal blood pressure Consults Time Called: [phone] Consulting Physician: Dr. Chris VIZCAINO Hospitalist Returned Call: [phone] I discussed the case with Dr. Chris VIZCAINO [facility]. He will evaluate the patient for further treatment. Impression Primary Impression: GI bleed Additional Impression: Anticoagulated on Coumadin Scribe Attestation The scribe's documentation has been prepared under my direction and personally reviewed by me in its entirety. I confirm that the note above accurately reflects all work, treatment, procedures, and medical decision making performed by me. Departure Information Dispostion Being Evaluated By Hospitalist Referrals Demarcus Nicholson D.O. (PCP) Patient Instructions My [facility] Health Problem Qualifiers Primary Impression: GI bleed GI bleed type/associated pathology: unspecified gastrointestinal hemorrhage type Qualified Codes: K92.2 - Gastrointestinal hemorrhage, unspecified
--- NOTE | 2018-03-23 22:09 | DIAGNOSTIC IMAGING REPORT ---
CHEST ONE VIEW PORTABLE CLINICAL HISTORY: EVALUATE ALTERED MENTAL STATUS/WEAKNESS dyspnea COMPARISON STUDY: 02/04/2018 FINDINGS: No acute process. Prior median sternotomy. Chronic interstitial prominence left base. IMPRESSION: No acute process. The above report was generated using voice recognition software. It may contain grammatical, syntax or spelling errors. Electronically signed by: Teddy Wen M.D. 03/23/2018 10:07 PM Dictated Date/Time: 03/23/2018 10:07 PM
[2018-03-23 22:52] LABS: BASO % 0.4 %; BASO ABS # 0.03 K/uL (0-0.2); EOS % 2.2 %; EOS ABS # 0.18 K/uL (0-0.5); HEMATOCRIT 42.3 % (42-52); HEMOGLOBIN 14.2 g/dL (14.0-18.0); IG# 0.02 K/uL (0.00-0.02); LYMPH % 14.1 %; LYMPH ABS # 1.17 K/uL (1.2-3.4); MEAN CELL VOLUME 99.8 fL (80-100); MEAN CORPUSCULAR HEMOGLOBIN 33.5 pg (25-34); MEAN CORPUSCULAR HGB CONC 33.6 g/dl (32-36); MEAN PLATELET VOLUME 10.3 fL (7.4-10.4); MONO % 4.6 %; MONO ABS # 0.38 K/uL (0.11-0.59); NEUT % 78.5 %; NEUT ABS # 6.51 K/uL (1.4-6.5); PLATELET COUNT 184 K/uL (130-400); WHITE BLOOD COUNT 8.29 K/uL (4.8-10.8)
[2018-03-23 23:14] LABS: ALBUMIN 2.9 gm/dl (3.4-5.0); ALKALINE PHOSPHATASE 236 U/L (45-117); ALT/SGPT 85 U/L (12-78); BLOOD UREA NITROGEN 24 mg/dl (7-18); CALCIUM 8.7 mg/dl (8.5-10.1); CARBON DIOXIDE 26 mmol/L (21-32); CREATININE 1.67 mg/dl (0.60-1.40); GLUCOSE 325 mg/dl (70-99); SODIUM 136 mmol/L (136-145); TOTAL PROTEIN 8.3 gm/dl (6.4-8.2)
[2018-03-23 23:53] LABS: AST/SGOT 109 U/L (15-37); POTASSIUM 4.4 mmol/L (3.5-5.1)
[2018-03-24 00:22] LABS: INR 1.9 (0.9-1.1); PTT PATIENT 35.2 SECONDS (21.0-31.0)
[2018-03-24] MEDS ORDERED: OXYC-90 PO (01:22)
[2018-03-24] MEDS ORDERED: OXYCODONE HCL IR 5 MG TAB (IMMEDIATE RELEASE) PO PRN (01:30)
[2018-03-24] MEDS ORDERED: ZOLPIDEM TARTRATE 5 MG TAB PO PRN (01:30)
[2018-03-24] MEDS ORDERED: MAGNESIUM HYDROXIDE SUSP 30 ML UDC PO PRN (01:30)
[2018-03-24] MEDS ORDERED: POLYETHYLENE (MIRALAX) 17 GM PACK PO PRN (01:30)
[2018-03-24] MEDS ORDERED: ONDANSETRON INJ 2 MG/ML 2 ML VIAL IV PRN (01:30)
[2018-03-24] MEDS ORDERED: ACETAMINOPHEN 325 MG TAB PO PRN (01:30)
[2018-03-24] MEDS ORDERED: ALUMINUM/MAGNESIUM/SIMETH (MAALOX MAX) 30 ML UDC PO PRN (01:30)
--- NOTE | 2018-03-24 02:22 | History and Physical ---
History & Physical Date & Time of Service: Mar 24, 2018 at 01:39 Chief Complaint: Gi Bleed Primary Care Physician: Demarcus Nicholson D.O. History of Present Illness Source: patient, hospital records, other 47 y/o M with complex medical history including endocarditis, mitral valve repair, diastolic CHF, pulmonary HTN, DM II, CAD, PE on Coumadin, CVA with residual R weakness, Hirschsprung's disease leading to colostomy placement. The pt presents due to gross blood in his colostomy bag. He denies abdominal pain, nausea, vomiting or fevers. 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 He perforated the anterior leaflet of his mitral valve in 2015 and required additional repair - the valve was not replaced 4) CAD - during mitral repair surgery he had a cath and then an LAD bypass 5) Intraoperative CVA 2003 leading to R hemiplegia 6) DVT/PE 7) Hirschsprung's disease 8) HTN 9) DM II 10) Morbid obesity 11) Hep C - cured with Harvoni Surgical Problems: 1) LAD CABG 2) Cath with stents to RCA and LAD 3) Colostomy 2013 4) Mitral valve repair x 2 - 2003, 2015 Family History Cancer Diabetes mellitus Gallbladder disease Heart disease Hypertension Kidney disease Lung disease Social History History of IVDU - not for several years - rare ETOH - does not smoke Smoking Status: Never Smoker Drug Use: none Marital Status: Housing status: lives with family Occupational Status: disabled Immunizations History of Influenza Vaccine: No History of Tetanus Vaccine?: Yes Tetanus Immunization Date: Jun 01, 2007 History of Pneumococcal: No History of Hepatitis B Vaccine: Unknown Allergies Coded Allergies: No Known Allergies (Verified , 11/03/16) Home Medications Scheduled Atenolol (Atenolol), 25 MG PO DAILY Colchicine (Colchicine), 0.6 MG PO DAILY Febuxostat (Uloric), 80 MG PO DAILY Furosemide (Furosemide), 40 MG PO DAILY Gabapentin (Gabapentin), 600 MG PO TID Insulin Aspart (Novolog Flexpen), 1 DOSE SC QID Insulin Glargine (Toujeo Solostar), 120 UNITS SC BID Magnesium Oxide (Mag-Ox), 400 MG PO DAILY Pantoprazole (Pantoprazole Sodium), 40 MG PO DAILY Potassium Chloride Microencaps (Potassium Chloride Er), 20 MEQ PO DAILY Warfarin Sodium (Warfarin Sodium), 2.5 MG PO 4XWK Warfarin Sodium (Warfarin Sodium), 5 MG PO 3XWK Scheduled PRN Miconazole Nitrate (Desenex Shake Powder), 1 APPLN TOP QID PRN for Affected Area (s) Nystatin (Topical) (Nystop), 1 APPLN TOP BID PRN for Affected Skin Folds Oxycodone Hcl (Oxycodone Hcl), 10 MG PO 5XD PRN for Pain Oxycodone Ir (Roxicodone Ir), 15 MG PO 5XD PRN for Pain Review of Systems Constitutional: No fever, No chills, No sweats Eyes: No worsening of vision, No eye pain ENT: No hearing loss, No unusual epistaxis Respiratory: No cough, No sputum, No wheezing Cardiovascular: No chest pain, No orthopnea, No PND Abdomen: + GI bleeding, No pain, No nausea, No vomiting Musculoskeletal: No joint pain Genitourinary - Male: No hematuria, No dysuria Neurologic: + problem reported (chronic R weakness), No memory loss, No paralysis, No weakness, No vertigo Hematologic / Lymphatic: + abnormal bleeding/bruising Integumentary: No rash Allergic / Immunologic: No environmental allergies Physical Exam Vital Signs Date Time Temp Pulse Resp B/P (MAP) Pulse Ox O2 Delivery O2 Flow Rate FiO2 03/24/18 01:13 96 18 141/90 96 Room Air 03/24/18 01:06 97 03/23/18 23:27 97 18 133/86 93 Room Air 03/23/18 22:06 98 18 133/85 94 Room Air 03/23/18 21:35 91 03/23/18 21:23 36.8 94 18 138/89 94 Room Air General Appearance: WD/WN, no apparent distress Head: normocephalic Eyes: normal inspection ENT: normal ENT inspection, pharynx normal Neck: supple, no JVD Respiratory/Chest: chest non-tender, lungs clear, normal breath sounds Cardiovascular: regular rate, rhythm, no edema, no gallop Abdomen/GI: + pertinent finding (The abdomen is soft - there is gross blood in the colosotomy bag) Back: normal inspection, no CVA tenderness Extremities/Musculoskelatal: normal inspection, no calf tenderness, + pedal edema Neurologic/Psych: billet worker II-XII nml as tested, no motor/sensory deficits, alert, oriented x 3 Skin: normal color, warm/dry Diagnostics Laboratory Results Results Past 24 Hours Test 03/23/18 21:15 03/23/18 22:08 03/23/18 23:49 Range/Units White Blood Count 8.29 4.8-10.8 K/uL Red Blood Count 4.24 4.7-6.1 M/uL Hemoglobin 14.2 14.0-18.0 g/dL Hematocrit 42.3 42-52 % Mean Corpuscular Volume 99.8 80-100 fL Mean Corpuscular Hemoglobin 33.5 25-34 pg Mean Corpuscular Hemoglobin Concent 33.6 32-36 g/dl Platelet Count 184 130-400 K/uL Mean Platelet Volume 10.3 7.4-10.4 fL Neutrophils (%) (Auto) 78.5 % Lymphocytes (%) (Auto) 14.1 % Monocytes (%) (Auto) 4.6 % Eosinophils (%) (Auto) 2.2 % Basophils (%) (Auto) 0.4 % Neutrophils # (Auto) 6.51 1.4-6.5 K/uL Lymphocytes # (Auto) 1.17 1.2-3.4 K/uL Monocytes # (Auto) 0.38 0.11-0.59 K/uL Eosinophils # (Auto) 0.18 0-0.5 K/uL Basophils # (Auto) 0.03 0-0.2 K/uL RDW Standard Deviation 54.0 36.4-46.3 fL RDW Coefficient of Variation 15.0 11.5-14.5 % Immature Granulocyte % (Auto) 0.2 % Immature Granulocyte # (Auto) 0.02 0.00-0.02 K/uL Sodium Level 136 136-145 mmol/L Potassium Level 4.4 3.5-5.1 mmol/L Chloride Level 99 98-107 mmol/L Carbon Dioxide Level 26 21-32 mmol/L Anion Gap 11.0 3-11 mmol/L Blood Urea Nitrogen 24 7-18 mg/dl Creatinine 1.67 0.60-1.40 mg/dl Estimated GFR () 56.4 Estimated GFR (Non- 48.7 BUN/Creatinine Ratio 14.5 10-20 Random Glucose 325 70-99 mg/dl Calcium Level 8.7 8.5-10.1 mg/dl Magnesium Level 1.8 1.8-2.4 mg/dl Total Bilirubin 0.8 0.2-1 mg/dl Direct Bilirubin 0.3 0-0.2 mg/dl Aspartate Amino Transf (AST/SGOT) 109 15-37 U/L Alanine Aminotransferase (ALT/SGPT) 85 12-78 U/L Alkaline Phosphatase 236 45-117 U/L Troponin I < 0.015 0-0.045 ng/ml Total Protein 8.3 6.4-8.2 gm/dl Albumin 2.9 3.4-5.0 gm/dl Beta-Hydroxybutyric Acid 1.84 0.2-2.81 mg/dL Thyroid Stimulating Hormone (TSH) 1.590 0.300-4.500 uIu/ml Urine Color YELLOW Urine Appearance CLOUDY CLEAR Urine pH 5.5 4.5-7.5 Urine Specific [place] 1.018 1.000-1.030 Urine Protein 3+ NEG Urine Glucose (UA) 1+ NEG Urine Ketones NEG NEG Urine Occult Blood 1+ NEG Urine Nitrite NEG NEG Urine Bilirubin NEG NEG Urine Urobilinogen NEG NEG Urine Leukocyte Esterase MODERATE NEG Urine WBC (Auto) >30 0-5 /hpf Urine RBC (Auto) 0-4 0-4 /hpf Urine Hyaline Casts (Auto) 0 0-5 /lpf Urine Epithelial Cells (Auto) 20-30 0-5 /lpf Urine Bacteria (Auto) 1+ NEG Urine Crystals TALC NONE PRSENT Urine Yeast (Auto) BUDDING NONE PRSENT Prothrombin Time 19.4 9.0-12.0 SECONDS Prothromb Time International Ratio 1.9 0.9-1.1 Activated Partial Thromboplast Time 35.2 21.0-31.0 SECONDS Partial Thromboplastin Ratio 1.4 Microbiology Results 03/24/18 Urine Culture, Katja Batch Pending Impression Assessment and Plan 47 y/o M with complex medical history including endocarditis, mitral valve repair, diastolic CHF, pulmonary HTN, DM II, CAD, PE on Coumadin, CVA with residual R weakness, Hirschsprung's disease leading to colostomy placement. The pt presents due to gross blood in his colostomy bag. He denies abdominal pain, nausea, vomiting or fevers. 1) GI bleed - there is gross blood in the colostomy bag, although the bleeding appears to have slowed. The pt will be monitored overnight with serial hemoglobins. A GI consult is requested. His Coumadin and ASA have been held. Protonix was provided as there is a possibility of an upper origin in light of his colostomy 2) CHF - difficult to assess volume status due to habitus - we will continue Lasix and Atenolol as he is placed on a clear diet 3) DM II - placed on a SS - Lantus provided at 50% of home dose 4) History of PE - will need to resume Coumadin at earliest possible time 5) CAD - no evidence of ACS - resume ASA when possible - cont B armen - presumably he is statin-intolerant Full code - Heparin prophylaxis Total time for this admit including review of extensive records, labs, meds - discussion with pt and ER attending - 40 min Resuscitation Status VTE Prophylaxis Will order VTE Prophylaxis: Yes
[2018-03-24 03:00] VITALS: BP 135/86; PULSE 88; TEMP 36.7; O2SAT 90; Ht 172.7 cm; Wt 136.0 kg
[2018-03-24] MEDS ORDERED: GLUCOSE 10 TABS/TUBE PO PRN (03:30)
[2018-03-24] MEDS ORDERED: GLUCOSE 40% GEL 15 GM TUBE PO PRN (03:30)
[2018-03-24] MEDS ORDERED: GLUCAGON FOR INJ 1 MG VIAL IM PRN (03:30)
[2018-03-24] MEDS ORDERED: CARBOHYDRATES FOR HYPOGLYCEMIA PO PRN (03:30)
[2018-03-24] MEDS ORDERED: DEXTROSE 50% 50 ML SYR IV PRN (03:30)
[2018-03-24] MEDS ORDERED: CEFTRIAXONE SOD INJ 1 GM in DEXTROSE 5% ADD-VANTAGE 50ML 50 ML IV SCH (04:00)
[2018-03-24] MEDS ORDERED: INSULIN ASPART 100 UNITS/ML 3 ML PEN SC SCH ×4 (06:00→12:00)
[2018-03-24 06:22] VITALS: O2SAT 95
[2018-03-24 07:35] VITALS: BP 120/82; PULSE 101; TEMP 36.6; O2SAT 95
[2018-03-24] MEDS ORDERED: NURSING VERBAL MED ORDER ONE (08:00)
--- NOTE | 2018-03-24 08:43 | Gastrointestinal Consultation ---
Gastrointestinal Consultation Date of Consultation: Mar 24, 2018 Attending Physician: Milagros Banks DO Consulting Physician: Dr. 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 He presented to the ER last evening with complaints of blood in his ostomy bag. He tells me that he has not had anything like this since 2016 when he presented with the same symptoms. EGD and scope through the ostomy were normal and the bleeding at that time resolved on own and was thought to be from stomal irritation. He has not had any change in his ostomy output. He notes that the stool itself coming out of his stoma has not had any blood in it. It seems to be oozing from around the stoma. He denies any abdominal pain, nausea or vomiting. His only complaint this AM is hunger. INR on admission 1.9. Hgb is 12.6 this AM (down from 14). BUN and creatinine are at baseline. Past Medical/Surgical History Medical Problems: (1) Abdominal pain Status: Acute (2) Acute epididymitis Status: Acute (3) Acute kidney injury Status: Acute (4) [id number] kidney injury Status: Acute (5) Anticoagulated on Coumadin Status: Acute (6) Anticoagulated on Coumadin Status: Acute (7) Bilateral pneumonia Status: Acute (8) Cellulitis Status: Acute (9) Cellulitis in diabetic foot Status: Acute (10) Cellulitis of both lower extremities Status: Acute (11) Chest pain Status: Acute (12) CHF (congestive heart failure) Status: Acute (13) Decubitus skin ulcer Status: Acute (14) Decubitus ulcer of right buttock Status: Acute (15) Diabetes Status: Acute (16) Drug (multiple) resistant infection Status: Acute (17) Elevated LFTs Status: Acute (18) Elevated liver function tests Status: Acute (19) Failure of outpatient treatment Status: Acute (20) GI bleed Status: Acute (21) GI bleed Status: Acute (22) Hyperglycemia Status: Acute (23) Hyperglycemia Status: Acute (24) Hypomagnesemia Status: Acute (25) Hypoxia Status: Acute (26) Hypoxia Status: Acute (27) Left leg cellulitis Status: Acute (28) Localized swelling of both lower legs Status: Acute (29) Lower extremity edema Status: Acute (30) Obesity Status: Acute (31) Peripheral edema Status: Acute (32) Precordial chest pain Status: Acute (33) Subtherapeutic anticoagulation Status: Acute (34) Subtherapeutic international normalized ratio (INR) Status: Acute (35) Subtherapeutic international normalized ratio (INR) Status: Acute (36) Transaminitis Status: Acute (37) Urinary tract infection Status: Acute (38) Urinary tract infection Status: Acute (39) UTI (urinary tract infection) Status: Acute (40) UTI (urinary tract infection) Status: Acute Past Medical History: as noted in HPI Past Surgical History: as noted in HPI Family History Cancer Diabetes mellitus Gallbladder disease Heart disease Hypertension Kidney disease Lung disease non-contributory Social History Smoking Status: Former Smoker Alcohol Use: none Drug Use: none Marital Status: Housing Status: lives with family Occupation Status: disabled Allergies Coded Allergies: No Known Allergies (Verified , 11/03/16) Current Medications Home Meds and Scripts Medications Dose Route/Sig Max Daily Dose Days Date Category Dose Instructions Roxicodone Ir (Oxycodone HCl) 5 Mg Tab 15 Mg PO 5XD PRN 03/24/18 Reported Uloric (Febuxostat) 80 Mg Tab 80 Mg PO DAILY 10/02/17 Reported Warfarin Sodium 5 Mg Tab 5 Mg PO 3XWK 08/18/17 Reported TAKE 5 MG EVERY MONDAY,MONDAY AND MONDAY OR OTHERWISE DIRECTED TO TAKE BY ANTICOAGULATION CLINIC/MD Warfarin Sodium 5 Mg Tab 2.5 Mg PO 4XWK 08/18/17 Reported TAKE HALF A TABLET (2.5 MG) EVERY MONDAY,MONDAY, MONDAY AND MONDAY OR OTHERWISE DIRECTED TO TAKE BY ANTICOAGULATION CLINIC/MD Furosemide 40 Mg Tab 40 Mg PO DAILY 08/18/17 Reported Colchicine 0.6 Mg Tab 0.6 Mg PO DAILY 08/18/17 Reported Desenex Shake Powder (Miconazole Nitrate) 43 Appln/43 Gm Powd 1 Appln TOP QID PRN 08/18/17 Reported Mag-Ox (Magnesium Oxide) 400 Mg Tab 400 Mg PO DAILY 08/18/17 Reported Atenolol 25 Mg Tab 25 Mg PO DAILY 11/04/16 Reported Toujeo Solostar (Insulin Glargine) 300 Unit/Ml Inj 120 Units SC BID 04/15/16 Reported Novolog Flexpen (Insulin Aspart) 100 Units/Ml Inj 1 Dose SC QID 04/15/16 Reported DOSE DIRECTED BY SLIDING SCALE Potassium Chloride Er (Potassium Chloride Microencaps) 20 Meq Tab 20 Meq PO DAILY 04/15/16 Reported Pantoprazole Sodium (Pantoprazole) 40 Mg Tab 40 Mg PO DAILY 04/15/16 Reported Oxycodone Hcl 10 Mg Tab 10 Mg PO 5XD PRN 04/15/16 Reported Gabapentin 600 Mg Tab 600 Mg PO TID 04/15/16 Reported Nystop (Nystatin (Topical)) 100,000 Unit/Gm Pow 1 Appln TOP BID PRN 03/15/16 Reported Review of Systems 12 systems reviewed and negative except as noted in HPI Physical Exam Date Time Temp Pulse Resp B/P (MAP) Pulse Ox O2 Delivery O2 Flow Rate FiO2 03/24/18 07:35 36.6 101 16 120/82 (95) 95 Room Air 03/24/18 06:22 95 Room Air 03/24/18 03:00 36.7 88 16 135/86 (102) 90 Room Air 03/24/18 03:00 90 Room Air 03/24/18 03:00 36.7 88 16 135/86 90 Room Air 03/24/18 02:43 96 18 127/86 93 03/24/18 01:13 96 18 141/90 96 Room Air 03/24/18 01:06 97 03/23/18 23:27 97 18 133/86 93 Room Air 03/23/18 22:06 98 18 133/85 94 Room Air 03/23/18 21:35 91 03/23/18 21:23 36.8 94 18 138/89 94 Room Air General Appearance: WD/WN, no apparent distress Eyes: normal inspection, PERRL, EOMI ENT: normal ENT inspection, hearing grossly normal, pharynx normal Neck: supple, no JVD Respiratory/Chest: chest non-tender, no respiratory distress, + decreased breath sounds Cardiovascular: regular rate, rhythm, + systolic murmur Abdomen: normal bowel sounds, non tender, soft, + pertinent finding (ostomy site with orange/brown stool (no blood) coming out of the stoma, oozing appears to be from around the stoma and not from within the intestine itself) Extremities: normal range of motion, non-tender, + pedal edema Neurologic/Psych: edi developer II-XII nml as tested, + pertinent finding (right sided weakness) Skin: normal color, no jaundice, + pertinent finding (see note in abd exam regarding ostomy and stoma) Laboratory Results Last 24 Hours Test 03/23/18 21:15 03/23/18 22:08 03/23/18 23:49 03/24/18 03:58 White Blood Count 8.29 K/uL Red Blood Count 4.24 M/uL Hemoglobin 14.2 g/dL 13.1 g/dL Hematocrit 42.3 % Mean Corpuscular Volume 99.8 fL Mean Corpuscular Hemoglobin 33.5 pg Mean Corpuscular Hemoglobin Concent 33.6 g/dl Platelet Count 184 K/uL Mean Platelet Volume 10.3 fL Neutrophils (%) (Auto) 78.5 % Lymphocytes (%) (Auto) 14.1 % Monocytes (%) (Auto) 4.6 % Eosinophils (%) (Auto) 2.2 % Basophils (%) (Auto) 0.4 % Neutrophils # (Auto) 6.51 K/uL Lymphocytes # (Auto) 1.17 K/uL Monocytes # (Auto) 0.38 K/uL Eosinophils # (Auto) 0.18 K/uL Basophils # (Auto) 0.03 K/uL RDW Standard Deviation 54.0 fL RDW Coefficient of Variation 15.0 % Immature Granulocyte % (Auto) 0.2 % Immature Granulocyte # (Auto) 0.02 K/uL Sodium Level 136 mmol/L Potassium Level 4.4 mmol/L Chloride Level 99 mmol/L Carbon Dioxide Level 26 mmol/L Anion Gap 11.0 mmol/L Blood Urea Nitrogen 24 mg/dl Creatinine 1.67 mg/dl Estimated GFR () 56.4 Estimated GFR (Non- 48.7 BUN/Creatinine Ratio 14.5 Random Glucose 325 mg/dl Calcium Level 8.7 mg/dl Magnesium Level 1.8 mg/dl Total Bilirubin 0.8 mg/dl Direct Bilirubin 0.3 mg/dl Aspartate Amino Transf (AST/SGOT) 109 U/L Alanine Aminotransferase (ALT/SGPT) 85 U/L Alkaline Phosphatase 236 U/L Troponin I < 0.015 ng/ml Total Protein 8.3 gm/dl Albumin 2.9 gm/dl Beta-Hydroxybutyric Acid 1.84 mg/dL Thyroid Stimulating Hormone (TSH) 1.590 uIu/ml Urine Color YELLOW Urine Appearance CLOUDY Urine pH 5.5 Urine Specific [place] 1.018 Urine Protein 3+ Urine Glucose (UA) 1+ Urine Ketones NEG Urine Occult Blood 1+ Urine Nitrite NEG Urine Bilirubin NEG Urine Urobilinogen NEG Urine Leukocyte Esterase MODERATE Urine WBC (Auto) >30 /hpf Urine RBC (Auto) 0-4 /hpf Urine Hyaline Casts (Auto) 0 /lpf Urine Epithelial Cells (Auto) 20-30 /lpf Urine Bacteria (Auto) 1+ Urine Crystals TALC Urine Yeast (Auto) BUDDING Prothrombin Time 19.4 SECONDS Prothromb Time International Ratio 1.9 Activated Partial Thromboplast Time 35.2 SECONDS Partial Thromboplastin Ratio 1.4 Test 03/24/18 06:18 03/24/18 07:57 03/24/18 08:09 Bedside Glucose 244 mg/dl 276 mg/dl Hemoglobin 12.6 g/dL Impression Patient is a 47 year old male with multiple medical problems on chronic ASA and Coumadin and a history of Hirschprung's s/p colectomy now with oozing of blood around the stoma. the stool coming out the intestine itself is orange/brown and not bloody. Plan - Would ask surgery to look at the actual stoma. ?if there is a vessel that needs to be cauterized (?silver nitrate,etc) - I do not think a scope through the ostomy is necessary.
[2018-03-24] MEDS ORDERED: PANTOprazole SOD 40 MG TAB PO SCH (09:00)
[2018-03-24] MEDS ORDERED: FUROSEMIDE 40 MG TAB PO SCH (09:00)
[2018-03-24] MEDS ORDERED: INSULIN GLARGINE SC SCH ×2 (09:00→21:00)
[2018-03-24] MEDS ORDERED: MAGNESIUM OXIDE 400 MG TAB PO SCH (09:00)
[2018-03-24] MEDS ORDERED: GABAPENTIN 600 MG TAB PO SCH (09:00)
[2018-03-24] MEDS ORDERED: POTASSIUM CHLORIDE 20 MEQ TABCR PO SCH (09:00)
[2018-03-24] MEDS ORDERED: PANTOprazole INJ 40 MG in SYRINGE 0 ML IV SCH (09:00)
[2018-03-24] MEDS ORDERED: COLCHICINE 0.6 MG TAB PO SCH (09:00)
[2018-03-24] MEDS ORDERED: FEBUXOSTAT 40 MG TAB PO SCH (09:00)
[2018-03-24] MEDS ORDERED: SILVER NITR/POTASSIUM NITRATE APPLICATOR ONE (11:17)
--- NOTE | 2018-03-24 12:01 | Medical Consult ---
Consultation Date of Consultation: Mar 24, 2018. Attending Physician: Philip Perez M.D. Reason for Consultation: Blood in ostomy bag x 1 day History of Present Illness Mr. Grajeda is a 47-year-old male with multiple medical problems- history of Hirschsprung's s/p colectomy (2-14), on chronic anticoagulation due to history of blood clots in lower extremities (per patient)- presents to [facility] ED for evaluation of 1 day history of blood draining into ostomy bag. States that he had something like this happen back in 2016- no intervention was required, bleeding stopped on its own. Patient states that output has not changed- no blood noticed in actual stool. INR on admission 1.9 Most recent Hgb 12.6 Past Medical/Surgical History Medical Problems: (1) Abdominal pain Status: Acute (2) Acute epididymitis Status: Acute (3) Acute kidney injury Status: Acute (4) [id number] kidney injury Status: Acute (5) Anticoagulated on Coumadin Status: Acute (6) Anticoagulated on Coumadin Status: Acute (7) Bilateral pneumonia Status: Acute (8) Cellulitis Status: Acute (9) Cellulitis in diabetic foot Status: Acute (10) Cellulitis of both lower extremities Status: Acute (11) Chest pain Status: Acute (12) CHF (congestive heart failure) Status: Acute (13) Decubitus skin ulcer Status: Acute (14) Decubitus ulcer of right buttock Status: Acute (15) Diabetes Status: Acute (16) Drug (multiple) resistant infection Status: Acute (17) Elevated LFTs Status: Acute (18) Elevated liver function tests Status: Acute (19) Failure of outpatient treatment Status: Acute (20) GI bleed Status: Acute (21) GI bleed Status: Acute (22) Hyperglycemia Status: Acute (23) Hyperglycemia Status: Acute (24) Hypomagnesemia Status: Acute (25) Hypoxia Status: Acute (26) Hypoxia Status: Acute (27) Left leg cellulitis Status: Acute (28) Localized swelling of both lower legs Status: Acute (29) Lower extremity edema Status: Acute (30) Obesity Status: Acute (31) Peripheral edema Status: Acute (32) Precordial chest pain Status: Acute (33) Subtherapeutic anticoagulation Status: Acute (34) Subtherapeutic international normalized ratio (INR) Status: Acute (35) Subtherapeutic international normalized ratio (INR) Status: Acute (36) Transaminitis Status: Acute (37) Urinary tract infection Status: Acute (38) Urinary tract infection Status: Acute (39) UTI (urinary tract infection) Status: Acute (40) UTI (urinary tract infection) Status: Acute Family History Cancer Diabetes mellitus Gallbladder disease Heart disease Hypertension Kidney disease Lung disease Social History Smoking Status: Former Smoker Drug Use: none Marital Status: Housing Status: lives with family Occupation Status: disabled Allergies Coded Allergies: No Known Allergies (Verified , 11/03/16) Current Inpatient Medications Current Inpatient Medications Medications (Trade) Dose Ordered Sig/Alvaro Route Start Time Stop Time Status Last Admin Dose Admin Atenolol (Tenormin Tab) 25 mg DAILY PO 03/24/18 09:00 04/23/18 08:59 03/24/18 09:16 25 MG Colchicine (Colchicine Tab) 0.6 mg DAILY PO 03/24/18 09:00 04/23/18 08:59 03/24/18 09:13 0.6 MG Furosemide (Lasix Tab) 40 mg DAILY PO 03/24/18 09:00 04/23/18 08:59 03/24/18 09:14 40 MG Gabapentin (Neurontin Tab) 600 mg TID PO 03/24/18 09:00 04/23/18 08:59 03/24/18 09:15 600 MG Magnesium Oxide (Mag-Ox Tab) 400 mg DAILY PO 03/24/18 09:00 04/23/18 08:59 03/24/18 09:15 400 MG Potassium Chloride (Klor-Con Tab) 20 meq DAILY PO 03/24/18 09:00 04/23/18 08:59 03/24/18 09:14 20 MEQ Febuxostat (Uloric) 80 mg DAILY PO 03/24/18 09:00 04/23/18 08:59 03/24/18 09:16 80 MG Insulin Glargine (Lantus Vial) 60 units BID SC 03/24/18 21:00 04/23/18 20:59 Oxycodone HCl (Roxicodone Immediate Rel Tab) 10 mg [id number] PRN PO 03/24/18 01:30 04/07/18 01:29 Ceftriaxone Sodium 1 gm/ Dextrose 50 ml @ 100 mls/hr Q24H IV 03/24/18 04:00 03/29/18 03:59 03/24/18 04:11 100 MLS/HR Acetaminophen (Tylenol Tab) 650 mg Q4H PRN PO 03/24/18 01:30 04/23/18 01:29 Al Hydrox/Mg Hydrox/Simethicone (Maalox Max Susp) 15 ml Q4H PRN PO 03/24/18 01:30 04/23/18 01:29 Magnesium Hydroxide (Milk Of Magnesia Susp) 30 ml Q6H PRN PO 03/24/18 01:30 04/23/18 01:29 Polyethylene (Miralax Powder Packet) 17 gm DAILY PRN PO 03/24/18 01:30 04/23/18 01:29 Zolpidem Tartrate (Ambien Tab) 5 mg HSZ PRN PO 03/24/18 01:30 04/23/18 01:29 Ondansetron HCl (Zofran Inj) 4 mg Q6H PRN IV 03/24/18 01:30 04/23/18 01:29 Pantoprazole Sodium 40 mg/ Syringe 10 ml @ 5 mls/min DAILY@09,21 IV 03/24/18 09:00 04/23/18 08:59 03/24/18 09:47 5 MLS/MIN Glucose (Glucose 40% Gel) 15-30 GRAMS 15 GRAMS... UD PRN PO 03/24/18 03:30 04/23/18 03:29 Glucose (Glucose Chew Tab) 4-8 Tablets 4 Tabl... UD PRN PO 03/24/18 03:30 04/23/18 03:29 Dextrose (Dextrose 50% 50ML Syringe) 25-50ML 25ML FOR ... UD PRN IV 03/24/18 03:30 04/23/18 03:29 Glucagon (Glucagon Inj) 1 mg UD PRN IM 03/24/18 03:30 04/23/18 03:29 Carbohydrates (Carbohydrates For Hypoglycemia) 15-30 GRAMS 15 grams if BSG 54-69... UD PRN PO 03/24/18 03:30 04/23/18 03:29 Insulin Aspart (novoLOG ASPART) SLIDING SCALE G... ACHS SC 03/24/18 12:00 04/23/18 11:59 Review of Systems Abdomen: No pain, No nausea, No vomiting Physical Exam Date Time Temp Pulse Resp B/P (MAP) Pulse Ox O2 Delivery O2 Flow Rate FiO2 03/24/18 07:35 36.6 101 16 120/82 (95) 95 Room Air 03/24/18 07:30 Room Air 03/24/18 06:22 95 Room Air 03/24/18 03:00 36.7 88 16 135/86 (102) 90 Room Air 03/24/18 03:00 90 Room Air 03/24/18 03:00 36.7 88 16 135/86 90 Room Air 03/24/18 02:43 96 18 127/86 93 03/24/18 01:13 96 18 141/90 96 Room Air 03/24/18 01:06 97 03/23/18 23:27 97 18 133/86 93 Room Air 03/23/18 22:06 98 18 133/85 94 Room Air 03/23/18 21:35 91 03/23/18 21:23 36.8 94 18 138/89 94 Room Air General Appearance: WD/WN, no apparent distress Abdomen/GI: non tender, soft, + pertinent finding (ostomy- output, stoma functioning- no blood in actual output- bloody drainage noted in bag. ) Laboratory Results Last 24 Hours Test 03/23/18 21:15 03/23/18 22:08 03/23/18 23:49 03/24/18 03:58 White Blood Count 8.29 K/uL Red Blood Count 4.24 M/uL Hemoglobin 14.2 g/dL 13.1 g/dL Hematocrit 42.3 % Mean Corpuscular Volume 99.8 fL Mean Corpuscular Hemoglobin 33.5 pg Mean Corpuscular Hemoglobin Concent 33.6 g/dl Platelet Count 184 K/uL Mean Platelet Volume 10.3 fL Neutrophils (%) (Auto) 78.5 % Lymphocytes (%) (Auto) 14.1 % Monocytes (%) (Auto) 4.6 % Eosinophils (%) (Auto) 2.2 % Basophils (%) (Auto) 0.4 % Neutrophils # (Auto) 6.51 K/uL Lymphocytes # (Auto) 1.17 K/uL Monocytes # (Auto) 0.38 K/uL Eosinophils # (Auto) 0.18 K/uL Basophils # (Auto) 0.03 K/uL RDW Standard Deviation 54.0 fL RDW Coefficient of Variation 15.0 % Immature Granulocyte % (Auto) 0.2 % Immature Granulocyte # (Auto) 0.02 K/uL Sodium Level 136 mmol/L Potassium Level 4.4 mmol/L Chloride Level 99 mmol/L Carbon Dioxide Level 26 mmol/L Anion Gap 11.0 mmol/L Blood Urea Nitrogen 24 mg/dl Creatinine 1.67 mg/dl Estimated GFR () 56.4 Estimated GFR (Non- 48.7 BUN/Creatinine Ratio 14.5 Random Glucose 325 mg/dl Calcium Level 8.7 mg/dl Magnesium Level 1.8 mg/dl Total Bilirubin 0.8 mg/dl Direct Bilirubin 0.3 mg/dl Aspartate Amino Transf (AST/SGOT) 109 U/L Alanine Aminotransferase (ALT/SGPT) 85 U/L Alkaline Phosphatase 236 U/L Troponin I < 0.015 ng/ml Total Protein 8.3 gm/dl Albumin 2.9 gm/dl Beta-Hydroxybutyric Acid 1.84 mg/dL Thyroid Stimulating Hormone (TSH) 1.590 uIu/ml Urine Color YELLOW Urine Appearance CLOUDY Urine pH 5.5 Urine Specific [place] 1.018 Urine Protein 3+ Urine Glucose (UA) 1+ Urine Ketones NEG Urine Occult Blood 1+ Urine Nitrite NEG Urine Bilirubin NEG Urine Urobilinogen NEG Urine Leukocyte Esterase MODERATE Urine WBC (Auto) >30 /hpf Urine RBC (Auto) 0-4 /hpf Urine Hyaline Casts (Auto) 0 /lpf Urine Epithelial Cells (Auto) 20-30 /lpf Urine Bacteria (Auto) 1+ Urine Crystals TALC Urine Yeast (Auto) BUDDING Prothrombin Time 19.4 SECONDS Prothromb Time International Ratio 1.9 Activated Partial Thromboplast Time 35.2 SECONDS Partial Thromboplastin Ratio 1.4 Test 03/24/18 06:18 03/24/18 07:57 03/24/18 08:09 Bedside Glucose 244 mg/dl 276 mg/dl Hemoglobin 12.6 g/dL Assessment & Plan Patient seen and examined with Dr. Morales. Appliance removed and further inspection reveals no blood in stool- no evidence of bleeding vessel to cauterize at this time. Recommend that patient remain in hospital for observation. No surgical intervention required. Silver nitrate left in room in case it is needed. Dr. Morales personally spoke with Dr. Goncalves.
--- NOTE | 2018-04-01 23:07 | Discharge Summary ---
Discharge Summary Date of Service Mar 24, 2018. 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 I explained to the patient that this is dangerous as he is actively bleeding. And I explained to him that his labs are true as he has not been receiving IV fluids which woud hemodilute his bloodwork. Patient understands the risk and is able to repeat the risks and explain in his own words what could hapen if he leaves against medical advice. Patient reports that he will be back after the wedding. I explained to him that he shouldn't be driving. This was all explained to patient in front of his nurse. Patient was not in acute distress when he signed out against medical advice. I spent more than 30 minutes on this discharge as I tried to convince patient to stay in the hospital.
== END 2018-03-24 13:00 | disposition left against medical advice (07) | DRG 378 ==
LOC: EDBD 21:22 → C.EDB 21:24 → C.MSN 03-24 01:34 → ENRESERV 03-24 02:06
PROVIDERS: ADMIT Internal Medicine; ATTEND Internal Medicine
DX: K92.2 Gastrointestinal hemorrhage, unspecified (principal); I50.30 Unspecified diastolic (congestive) heart failure; Z68.42 Body mass index [BMI] 45.0-49.9, adult; Q43.1 Hirschsprung's disease; E11.21 Type 2 diabetes mellitus with diabetic nephropathy; M10.9 Gout, unspecified; Z86.19 Personal history of other infectious and parasitic diseases; Z83.3 Family history of diabetes mellitus; Z82.49 Family history of ischemic heart disease and other diseases of the circulatory system; Z93.3 Colostomy status; Z87.891 Personal history of nicotine dependence; Z79.4 Long term (current) use of insulin; Z79.01 Long term (current) use of anticoagulants; I25.10 Atherosclerotic heart disease of native coronary artery without angina pectoris; Z86.718 Personal history of other venous thrombosis and embolism; Z86.711 Personal history of pulmonary embolism; I11.0 Hypertensive heart disease with heart failure; E66.01 Morbid (severe) obesity due to excess calories; Z79.82 Long term (current) use of aspirin

== ENCOUNTER 2018-03-25 00:27 | Inpatient (IN) | payer OTHER ==
[~2018-03-25] VITALS: Ht 172.7 cm; Wt 160.3 kg
[2018-03-25] VITALS (22 sets, daily range): BP systolic 107–136; BP diastolic 65–88; PULSE 77–100; TEMP 36.6–37; O2SAT 93–99; Ht 172.7 cm; Wt 160.3 kg
[~2018-03-25 00:27] MED LIST changes: +OXYC-90 PO
--- NOTE | 2018-03-25 01:07 | EMERGENCY ROOM VISIT NOTE ---
History Report prepared by Jarocho: Roque Garcia Under the Supervision of: Dr. Fish Goodwin D.O. First contact with patient: 00:43 Chief Complaint: GI ASSESSMENT Stated Complaint: ABDOMINAL BLEED COLOSTOMY 3 BAG IN 3 HRS History of Present Illness The patient is a 47 year old male who presents to the Emergency Room with complaints of blood in his colostomy bag. Nursing staff reports that his ostomy bag filled with blood twice in the past hour. The family states that earlier tonight they saw a mass in his ostomy bag, and after that, the bleeding became worse. The patient denies shortness of breath or abdominal pain. He states that he was admitted the previous day and stayed until 1 AM. He states that he did not get blood work done, and notes he saw a GI surgeon. Source of History: patient, family, nursing staff Onset: today Position: other (ostomy bag) Symptom Intensity: filled twice with blood in the past hour Quality: other (blood in ostomy bag) Associated Symptoms: No SOB, No abdominal pain Review of Systems See HPI for pertinent positives & negatives. A total of 10 systems reviewed and were otherwise negative. Past Medical & Surgical Medical Problems: (1) Bilateral lower leg cellulitis (2) Bleeding from colostomy (3) Bleeding from colostomy (4) CHF (congestive heart failure) (5) Coagulopathy (6) Diabetic nephropathy (7) DM type 2 (diabetes mellitus, type 2) (8) E coli infection (9) Edema of right lower extremity (10) Endocarditis (11) Gout (12) Gout (13) Hematuria (14) Hepatitis C (15) Leg pain, bilateral (16) Nephrolithiasis (17) Nocturnal hypoxemia (18) Paraplegia (19) Pneumonia (20) Pneumonia (21) Pulmonary emboli (22) Severe sepsis (23) Shortness of breath (24) Stroke (25) Supratherapeutic INR (26) UTI (urinary tract infection) Surgical Problems: (1) H/O brain surgery (2) Hx of CABG (3) S/P cardiac cath (4) S/P colostomy Family History Cancer Diabetes mellitus Gallbladder disease Heart disease Hypertension Kidney disease Lung disease Social History Smoking Status: Former Smoker Alcohol Use: none Drug Use: none Marital Status: Housing Status: lives with family Occupation Status: disabled Current/Historical Medications Scheduled Atenolol (Atenolol), 25 MG PO DAILY Colchicine (Colchicine), 0.6 MG PO DAILY Febuxostat (Uloric), 80 MG PO DAILY Furosemide (Furosemide), 40 MG PO DAILY Gabapentin (Gabapentin), 600 MG PO TID Insulin Aspart (Novolog Flexpen), 1 DOSE SC QID Insulin Glargine (Toujeo Solostar), 120 UNITS SC BID Magnesium Oxide (Mag-Ox), 400 MG PO DAILY Pantoprazole (Pantoprazole Sodium), 40 MG PO DAILY Potassium Chloride Microencaps (Potassium Chloride Er), 20 MEQ PO DAILY Warfarin Sodium (Warfarin Sodium), 2.5 MG PO 4XWK Warfarin Sodium (Warfarin Sodium), 5 MG PO 3XWK Scheduled PRN Miconazole Nitrate (Desenex Shake Powder), 1 APPLN TOP QID PRN for Affected Area (s) Nystatin (Topical) (Nystop), 1 APPLN TOP BID PRN for Affected Skin Folds Oxycodone Hcl (Oxycodone Hcl), 10 MG PO 5XD PRN for Pain Oxycodone Ir (Roxicodone Ir), 15 MG PO 5XD PRN for Pain Allergies Coded Allergies: No Known Allergies (Verified , 11/03/16) Physical Exam Vital Signs Date Time Temp Pulse Resp B/P (MAP) Pulse Ox O2 Delivery O2 Flow Rate FiO2 03/25/18 03:35 98 20 97/65 97 Room Air 03/25/18 02:37 104 18 96 Room Air 03/25/18 02:34 115/74 03/25/18 02:32 104 18 03/25/18 02:31 125/79 03/25/18 02:27 103 17 03/25/18 02:26 132/86 03/25/18 02:22 103 15 03/25/18 02:21 119/76 03/25/18 02:17 102 21 03/25/18 02:16 122/76 03/25/18 02:12 102 17 122/66 03/25/18 02:07 102 23 03/25/18 02:06 122/78 03/25/18 02:02 100 20 03/25/18 02:01 119/73 03/25/18 01:57 101 16 03/25/18 01:56 119/75 03/25/18 01:52 99 20 03/25/18 01:51 116/73 03/25/18 01:47 99 22 111/86 03/25/18 01:42 100 23 03/25/18 01:41 110/64 03/25/18 01:37 102 111/71 97 03/25/18 01:32 101 20 95 03/25/18 01:31 84/66 03/25/18 01:27 101 17 96 Room Air 03/25/18 01:26 83/55 03/25/18 01:23 100/61 03/25/18 01:22 101 13 03/25/18 01:21 97/60 03/25/18 01:20 90/53 03/25/18 01:17 99 18 81/62 03/25/18 01:12 103 25 03/25/18 01:07 104 03/25/18 01:02 105 03/25/18 00:58 104 03/25/18 00:57 104 21 03/25/18 00:54 144/95 03/25/18 00:29 36.9 105 18 127/83 98 Room Air Physical Exam GENERAL: Patient is awake, alert, and somewhat anxious appearing. EYES: The conjunctivae are clear. The pupils are round and reactive. EARS, NOSE, MOUTH AND THROAT: The nose is without any evidence of any deformity. Mucous membranes are moist. Tongue is midline NECK: The neck is nontender and supple. RESPIRATORY: Normal respiratory effort is noted. There is no evidence of wheezing or rhonchi to auscultation. Diminished breath sounds and rales at both bases. CARDIOVASCULAR: Tachycardic rate and regular rhythm noted. No definite murmurs rubs or gallops normal S1 normal S2 GASTROINTESTINAL: The abdomen is markedly distended. Bowel sounds are present in all quadrants. Abdomen is nontender. Ostomy in right abdomen with fresh blood noted. MUSCULOSKELETAL/EXTREMITIES: There is no evidence of gross deformity. Full range of motion is noted in the hips and shoulders. SKIN: There is no obvious evidence of any rash. There are no petechiae, pallor or cyanosis noted. Bilateral lower extremity edema and venous stasis changes noted. NEUROLOGIC: Patient is awake alert and oriented x3. Medical Decision & Procedures Laboratory Results 03/25/18 01:12 Red Blood Count 3.52, Mean Corpuscular Volume 99.4, Mean Corpuscular Hemoglobin 33.5, Mean Corpuscular Hemoglobin Concent 33.7, Mean Platelet Volume 9.7, Neutrophils (%) (Auto) 74.5, Lymphocytes (%) (Auto) 17.8, Monocytes (%) (Auto) 4.8, Eosinophils (%) (Auto) 2.2, Basophils (%) (Auto) 0.3, Neutrophils # (Auto) 6.81, Lymphocytes # (Auto) 1.63, Monocytes # (Auto) 0.44, Eosinophils # (Auto) 0.20, Basophils # (Auto) 0.03 03/25/18 01:12 Test 03/25/18 01:12 White Blood Count 9.15 K/uL (4.8-10.8) Red Blood Count 3.52 M/uL (4.7-6.1) Hemoglobin 11.8 g/dL (14.0-18.0) Hematocrit 35.0 % (42-52) Mean Corpuscular Volume 99.4 fL (80-100) Mean Corpuscular Hemoglobin 33.5 pg (25-34) Mean Corpuscular Hemoglobin Concent 33.7 g/dl (32-36) Platelet Count 184 K/uL (130-400) Mean Platelet Volume 9.7 fL (7.4-10.4) Neutrophils (%) (Auto) 74.5 % Lymphocytes (%) (Auto) 17.8 % Monocytes (%) (Auto) 4.8 % Eosinophils (%) (Auto) 2.2 % Basophils (%) (Auto) 0.3 % Neutrophils # (Auto) 6.81 K/uL (1.4-6.5) Lymphocytes # (Auto) 1.63 K/uL (1.2-3.4) Monocytes # (Auto) 0.44 K/uL (0.11-0.59) Eosinophils # (Auto) 0.20 K/uL (0-0.5) Basophils # (Auto) 0.03 K/uL (0-0.2) RDW Standard Deviation 53.1 fL (36.4-46.3) RDW Coefficient of Variation 14.9 % (11.5-14.5) Immature Granulocyte % (Auto) 0.4 % Immature Granulocyte # (Auto) 0.04 K/uL (0.00-0.02) Prothrombin Time 22.2 SECONDS (9.0-12.0) Prothromb Time International Ratio 2.1 (0.9-1.1) Activated Partial Thromboplast Time 33.5 SECONDS (21.0-31.0) Partial Thromboplastin Ratio 1.3 Anion Gap 8.0 mmol/L (3-11) Estimated GFR () 49.5 Estimated GFR (Non- 42.7 BUN/Creatinine Ratio 12.8 (10-20) Calcium Level 8.5 mg/dl (8.5-10.1) Magnesium Level 1.8 mg/dl (1.8-2.4) Total Bilirubin 0.8 mg/dl (0.2-1) Direct Bilirubin mg/dl (0-0.2) Aspartate Amino Transf (AST/SGOT) 113 U/L (15-37) Alanine Aminotransferase (ALT/SGPT) 78 U/L (12-78) Alkaline Phosphatase 166 U/L (45-117) Total Protein 7.5 gm/dl (6.4-8.2) Albumin 2.8 gm/dl (3.4-5.0) Beta-Hydroxybutyric Acid mg/dL (0.2-2.81) Chemistry Specimen Hemolysis Laboratory results per my review. Medications Administered Medications (Trade) Dose Ordered Sig/Alvaro Route Start Time Stop Time Status Last Admin Dose Admin Miscellaneous Information (Nursing Verbal Med Order) 1 ea ONE ONCE N/A 03/25/18 02:15 03/25/18 02:16 DC 03/25/18 01:30 1 EA ED Course 0051: The patient was evaluated in room B7. A complete history and physical examination were performed. 0150: I talked to Dr. Perez - [facility] Hospitalist. He states he will later evaluate the patient. 0245: I spoke to Dr. Perez. He will reevaluate the patient for hospitalization. Medical Decision Differential diagnosis: Etiologies such as diverticulosis, AVM, coagulopathy, colitis, inflammatory bowel disease, malignancy, Sarah-Smith tear, esophagitis, peptic ulcer disease , variceal bleed, gastritis, epistaxis, fissure, hemorrhoids, as well as others were entertained. Nursing notes reviewed. The patient is a 47-year-old male who presented to the emergency department for an evaluation of bleeding in his ostomy. The patient has a history of colon resection when he was young but also takes blood thinners because of cardiac and central nervous system problems. The patient was seen by myself yesterday and admitted to the hospital for GI bleeding but he signed out AGAINST MEDICAL ADVICE earlier today. I discussed patient's laboratory studies with him. He was typed and screened and blood was ordered but the patient ultimately had improvement of his blood pressure with a small fluid bolus. I discussed this case with the on-call [facility] hospitalist. They have agreed to evaluate the patient in the [facility] department for further management and disposition. Medication Reconcilliation Current Medication List: was personally reviewed by me Blood Pressure Screening Patient's blood pressure: Normal blood pressure Blood pressure disposition: Did not require urgent referral Consults Time Called: 0148 Consulting Physician: Dr. Chris Cabrera [facility] Hospitalist Returned Call: [address] Chris Cabrera [facility]. He states he will later evaluate the patient. Additional Consults: Time Called: 0243 Consulted Physician: Dr. Chris Cabrera [facility] Hospitalist Returned Call: 0245 Additional Comments: I spoke to Dr. Perez. He will reevaluate the patient for hospitalization. Impression Primary Impression: GI bleeding Additional Impressions: Anemia Hypotension Scribe Attestation The scribe's documentation has been prepared under my direction and personally reviewed by me in its entirety. I confirm that the note above accurately reflects all work, treatment, procedures, and medical decision making performed by me. Departure Information Dispostion Being Evaluated By Hospitalist Referrals Demarcus Nicholson D.O. (PCP) Patient Instructions [facility] Problem Qualifiers Primary Impression: GI bleeding GI bleed type/associated pathology: unspecified gastrointestinal hemorrhage type Qualified Codes: K92.2 - Gastrointestinal hemorrhage, unspecified Additional Impressions: Anemia Anemia type: unspecified type Qualified Codes: D64.9 - Anemia, unspecified Hypotension Hypotension type: unspecified hypotension type Qualified Codes: I95.9 - Hypotension, unspecified
[2018-03-25 01:28] LABS: BASO % 0.3 %; BASO ABS # 0.03 K/uL (0-0.2); EOS % 2.2 %; HEMOGLOBIN 11.8 g/dL (14.0-18.0); IG# 0.04 K/uL (0.00-0.02); LYMPH % 17.8 %; LYMPH ABS # 1.63 K/uL (1.2-3.4); MEAN CELL VOLUME 99.4 fL (80-100); MEAN CORPUSCULAR HEMOGLOBIN 33.5 pg (25-34); MEAN CORPUSCULAR HGB CONC 33.7 g/dl (32-36); MEAN PLATELET VOLUME 9.7 fL (7.4-10.4); MONO % 4.8 %; MONO ABS # 0.44 K/uL (0.11-0.59); NEUT % 74.5 %; NEUT ABS # 6.81 K/uL (1.4-6.5); PLATELET COUNT 184 K/uL (130-400); RED CELL DISTRIBUTION WIDTH CV 14.9 % (11.5-14.5); RED CELL DISTRIBUTION WIDTH SD 53.1 fL (36.4-46.3); WHITE BLOOD COUNT 9.15 K/uL (4.8-10.8)
[2018-03-25 02:06] LABS: ALBUMIN 2.8 gm/dl (3.4-5.0); ALKALINE PHOSPHATASE 166 U/L (45-117); ALT/SGPT 78 U/L (12-78); AST/SGOT 113 U/L (15-37); BLOOD UREA NITROGEN 24 mg/dl (7-18); CALCIUM 8.5 mg/dl (8.5-10.1); CARBON DIOXIDE 26 mmol/L (21-32); CREATININE 1.86 mg/dl (0.60-1.40); GLUCOSE 365 mg/dl (70-99); POTASSIUM 4.1 mmol/L (3.5-5.1); SODIUM 131 mmol/L (136-145); TOTAL PROTEIN 7.5 gm/dl (6.4-8.2)
[2018-03-25 02:07] LABS: INR 2.1 (0.9-1.1); PTT PATIENT 33.5 SECONDS (21.0-31.0)
[2018-03-25] MEDS ORDERED: NURSING VERBAL MED ORDER ONE (02:15)
[2018-03-25] MEDS ORDERED: OXYCODONE HCL IR 5 MG TAB (IMMEDIATE RELEASE) PO PRN (03:45)
--- NOTE | 2018-03-25 03:47 | History and Physical ---
History & Physical Date & Time of Service: Mar 25, 2018 at 03:41 Chief Complaint: Abdominal Bleed Colostomy 3 Bag In 3 Hrs Primary Care Physician: Demarcus Nicholson D.O. History of Present Illness Source: patient, hospital records, other 47 y/o M with complex medical history including endocarditis, mitral valve repair, diastolic CHF, pulmonary HTN, DM II, CAD, PE on Coumadin, CVA with residual R weakness, Hirschsprung's disease leading to colostomy placement. The pt presented one day prior due to gross blood in his colostomy bag. He was evaluated AM by the GI service who determined that the source of the bleed was parastomal and that there was no blood coming from the intestine. It was recommended that he be evaluated by surgery for this, however, he signed out against medical advice. He returns this evening with additional bleeding. He exhibited pallor and mild hypotension on arrival to the ER, although he responded well to a fluid bolus. Initial INR is 2.1. An Hb is 11.8 down from 14.3 the prior day. 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 6) DVT/PE 7) Hirschsprung's disease 8) HTN 9) DM II 10) Morbid obesity 11) Hep C - cured with Harvoni Surgical Problems: 1) LAD CABG 2) Cath with stents to RCA and LAD 3) Colostomy 2013 4) Mitral valve repair x 2 - 2003, 2015 Family History Cancer Diabetes mellitus Gallbladder disease Heart disease Hypertension Kidney disease Lung disease Social History Does not smoke - rarely drinks - distant history of IVDU Smoking Status: Former Smoker Drug Use: none Marital Status: Housing status: lives with family Occupational Status: disabled Immunizations History of Influenza Vaccine: No History of Tetanus Vaccine?: Yes Tetanus Immunization Date: Jun 01, 2007 History of Pneumococcal: No History of Hepatitis B Vaccine: Unknown Allergies Coded Allergies: No Known Allergies (Verified , 11/03/16) Home Medications Scheduled Atenolol (Atenolol), 25 MG PO DAILY Colchicine (Colchicine), 0.6 MG PO DAILY Febuxostat (Uloric), 80 MG PO DAILY Furosemide (Furosemide), 40 MG PO DAILY Gabapentin (Gabapentin), 600 MG PO TID Insulin Aspart (Novolog Flexpen), 1 DOSE SC QID Insulin Glargine (Toujeo Solostar), 120 UNITS SC BID Magnesium Oxide (Mag-Ox), 400 MG PO DAILY Pantoprazole (Pantoprazole Sodium), 40 MG PO DAILY Potassium Chloride Microencaps (Potassium Chloride Er), 20 MEQ PO DAILY Warfarin Sodium (Warfarin Sodium), 2.5 MG PO 4XWK Warfarin Sodium (Warfarin Sodium), 5 MG PO 3XWK Scheduled PRN Miconazole Nitrate (Desenex Shake Powder), 1 APPLN TOP QID PRN for Affected Area (s) Nystatin (Topical) (Nystop), 1 APPLN TOP BID PRN for Affected Skin Folds Oxycodone Hcl (Oxycodone Hcl), 10 MG PO 5XD PRN for Pain Oxycodone Ir (Roxicodone Ir), 15 MG PO 5XD PRN for Pain Review of Systems Constitutional: + weakness, No fever, No chills, No sweats Eyes: No worsening of vision ENT: No hearing loss, No unusual epistaxis, No nasal symptoms Respiratory: No cough, No sputum, No wheezing Cardiovascular: No chest pain, No orthopnea, No PND Abdomen: + problem reported (Blood in colostomy bag), No pain, No nausea, No vomiting Musculoskeletal: No joint pain Genitourinary - Male: No hematuria, No dysuria, No urinary frequency Neurologic: + weakness, No memory loss Psychiatric: No depression symptoms Endocrine: No fatigue Hematologic / Lymphatic: + abnormal bleeding/bruising Integumentary: No rash Allergic / Immunologic: No environmental allergies Physical Exam Vital Signs Date Time Temp Pulse Resp B/P (MAP) Pulse Ox O2 Delivery O2 Flow Rate FiO2 03/25/18 03:35 98 20 97/65 97 Room Air 03/25/18 02:37 104 18 96 Room Air 03/25/18 02:34 115/74 03/25/18 02:32 104 18 03/25/18 02:31 125/79 03/25/18 02:27 103 17 03/25/18 02:26 132/86 03/25/18 02:22 103 15 03/25/18 02:21 119/76 8 02:17 102 21 8 02:16 122/76 8 02:12 102 17 122/66 03/25/18 02:07 102 23 03/25/18 02:06 122/78 03/25/18 02:02 100 20 03/25/18 02:01 119/73 8 01:57 101 16 03/25/18 01:56 119/75 03/25/18 01:52 99 20 03/25/18 01:51 116/73 03/25/18 01:47 99 22 111/86 03/25/18 01:42 100 23 03/25/18 01:41 110/64 03/25/18 01:37 102 111/71 97 03/25/18 01:32 101 20 95 03/25/18 01:31 84/66 03/25/18 01:27 101 17 96 Room Air 03/25/18 01:26 83/55 03/25/18 01:23 100/61 03/25/18 01:22 101 13 03/25/18 01:21 97/60 03/25/18 01:20 90/53 03/25/18 01:17 99 18 81/62 03/25/18 01:12 103 25 03/25/18 01:07 104 03/25/18 01:02 105 03/25/18 00:58 104 03/25/18 00:57 104 21 03/25/18 00:54 144/95 03/25/18 00:29 36.9 105 18 127/83 98 Room Air General Appearance: WD/WN, no apparent distress Head: normocephalic Eyes: normal inspection ENT: normal ENT inspection, pharynx normal Neck: supple, no adenopathy Respiratory/Chest: chest non-tender, lungs clear, normal breath sounds Cardiovascular: regular rate, rhythm, no edema, no gallop, + systolic murmur Abdomen/GI: normal bowel sounds, non tender, soft, + pertinent finding (Blood in colostomy bag) Back: normal inspection, no CVA tenderness Extremities/Musculoskelatal: + pedal edema Neurologic/Psych: wall attendant II-XII nml as tested, no motor/sensory deficits, alert, oriented x 3 Skin: + pallor, + pertinent finding (Erthema of lower extremities ) Diagnostics Laboratory Results Results Past 24 Hours Test 03/25/18 01:12 Range/Units White Blood Count 9.15 4.8-10.8 K/uL Red Blood Count 3.52 4.7-6.1 M/uL Hemoglobin 11.8 14.0-18.0 g/dL Hematocrit 35.0 42-52 % Mean Corpuscular Volume 99.4 80-100 fL Mean Corpuscular Hemoglobin 33.5 25-34 pg Mean Corpuscular Hemoglobin Concent 33.7 32-36 g/dl Platelet Count 184 130-400 K/uL Mean Platelet Volume 9.7 7.4-10.4 fL Neutrophils (%) (Auto) 74.5 % Lymphocytes (%) (Auto) 17.8 % Monocytes (%) (Auto) 4.8 % Eosinophils (%) (Auto) 2.2 % Basophils (%) (Auto) 0.3 % Neutrophils # (Auto) 6.81 1.4-6.5 K/uL Lymphocytes # (Auto) 1.63 1.2-3.4 K/uL Monocytes # (Auto) 0.44 0.11-0.59 K/uL Eosinophils # (Auto) 0.20 0-0.5 K/uL Basophils # (Auto) 0.03 0-0.2 K/uL RDW Standard Deviation 53.1 36.4-46.3 fL RDW Coefficient of Variation 14.9 11.5-14.5 % Immature Granulocyte % (Auto) 0.4 % Immature Granulocyte # (Auto) 0.04 0.00-0.02 K/uL Prothrombin Time 22.2 9.0-12.0 SECONDS Prothromb Time International Ratio 2.1 0.9-1.1 Activated Partial Thromboplast Time 33.5 21.0-31.0 SECONDS Partial Thromboplastin Ratio 1.3 Sodium Level 131 136-145 mmol/L Potassium Level 4.1 3.5-5.1 mmol/L Chloride Level 97 98-107 mmol/L Carbon Dioxide Level 26 21-32 mmol/L Anion Gap 8.0 3-11 mmol/L Blood Urea Nitrogen 24 7-18 mg/dl Creatinine 1.86 0.60-1.40 mg/dl Estimated GFR () 49.5 Estimated GFR (Non- 42.7 BUN/Creatinine Ratio 12.8 10-20 Random Glucose 365 70-99 mg/dl Calcium Level 8.5 8.5-10.1 mg/dl Magnesium Level 1.8 1.8-2.4 mg/dl Total Bilirubin 0.8 0.2-1 mg/dl Direct Bilirubin 0-0.2 mg/dl Aspartate Amino Transf (AST/SGOT) 113 15-37 U/L Alanine Aminotransferase (ALT/SGPT) 78 12-78 U/L Alkaline Phosphatase 166 45-117 U/L Total Protein 7.5 6.4-8.2 gm/dl Albumin 2.8 3.4-5.0 gm/dl Beta-Hydroxybutyric Acid 0.2-2.81 mg/dL Chemistry Specimen Hemolysis Impression Assessment and Plan 47 y/o M with complex medical history including endocarditis, mitral valve repair, diastolic CHF, pulmonary HTN, DM II, CAD, PE on Coumadin, CVA with residual R weakness, Hirschsprung's disease leading to colostomy placement. The pt presented one day prior due to gross blood in his colostomy bag. He was evaluated AM by the GI service who determined that the source of the bleed was parastomal and that there was no blood coming from the intestine. It was recommended that he be evaluated by surgery for this, however, he signed out against medical advice. He returns this evening with additional bleeding. He exhibited pallor and mild hypotension on arrival to the ER, although he responded well to a fluid bolus. Initial INR is 2.1. An Hb is 11.8 down from 14.3 the prior day. 1) Parastomal bleeding - surgery is consulted. He will be transfused 2 units due to hypotension and ongoing blood loss. Coumadin and ASA are held. 2) CHF - difficult to assess volume status due to habitus - we will continue Lasix and Atenolol as he is placed on a clear diet 3) DM II - placed on a SS - Lantus provided at 50% of home dose 4) History of PE - will need to resume Coumadin at earliest possible time 5) CAD - no evidence of ACS - resume ASA when possible - cont B armen - presumably he is statin-intolerant 6) UA one day prior was (+) - he was started on Ceftriaxone which we will continue Full code - SCDs Total time for this admit including review of labs, meds imaging, records - discussion with pt and ER attending 35 min Resuscitation Status VTE Prophylaxis Will order VTE Prophylaxis: Yes
[2018-03-25] MEDS ORDERED: GLUCAGON FOR INJ 1 MG VIAL IM PRN (04:00)
[2018-03-25] MEDS ORDERED: CARBOHYDRATES FOR HYPOGLYCEMIA PO PRN (04:00)
[2018-03-25] MEDS ORDERED: GLUCOSE 40% GEL 15 GM TUBE PO PRN (04:00)
[2018-03-25] MEDS ORDERED: DEXTROSE 50% 50 ML SYR IV PRN (04:00)
[2018-03-25] MEDS ORDERED: ONDANSETRON INJ 2 MG/ML 2 ML VIAL IV PRN (04:00)
[2018-03-25] MEDS ORDERED: MAGNESIUM HYDROXIDE SUSP 30 ML UDC PO PRN (04:00)
[2018-03-25] MEDS ORDERED: ALUMINUM/MAGNESIUM/SIMETH (MAALOX MAX) 30 ML UDC PO PRN (04:00)
[2018-03-25] MEDS ORDERED: GLUCOSE 10 TABS/TUBE PO PRN (04:00)
[2018-03-25] MEDS ORDERED: IV FLUIDS COMPLETED PRN (04:15)
[2018-03-25] MEDS ORDERED: PHYTONADIONE INJ 5 MG in SODIUM CHLORIDE 0.9% 50ML 50 ML IV ONE (05:15)
--- NOTE | 2018-03-25 05:52 | Surgery Consultation ---
Consultation Date of Consultation: Mar 25, 2018. Attending Physician: Philip Watson M.D. Reason for Consultation: Blood in colostomy bag History of Present Illness Mr. Grajeda is a 47-year-old male with multiple medical problems- history of Hirschsprung's s/p colectomy (2-14), on chronic anticoagulation due to history of blood clots in lower extremities (per patient)- presented to the ED last night due to blood draining into ostomy bag. He was seen by GI and Dr. Morales at this time - bleeding seemed to have stopped on its own and it was felt that bleeding was more than likely parastomal in nature at this time. 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 Reports since he left there was not much output into his bag until approximately [id number] while he was at the wedding where he noticed his bag was full of blood. He emptied it and says it filled up with blood again within 30 minutes after. Denies abdominal pain, nausea, vomiting. He returned to the ED and was found to be hypotensive however he responded well to fluid bolus. He was typed and crossed at this time and is in the process of being transfused with PRBC and FFP. At this time his vitals are stable except for his HR fluctuating around 98-104. Reports he has not taken his coumadin since Monday. H&H 11.8 and 35 in ED tonight INR 2.1 Past Medical/Surgical History Medical Problems: (1) Abdominal pain Status: Acute (2) Acute epididymitis Status: Acute (3) Acute kidney injury Status: Acute (4) [id number] kidney injury Status: Acute (5) Anemia Status: Acute (6) Anticoagulated on Coumadin Status: Acute (7) Anticoagulated on Coumadin Status: Acute (8) Bilateral pneumonia Status: Acute (9) Cellulitis Status: Acute (10) Cellulitis in diabetic foot Status: Acute (11) Cellulitis of both lower extremities Status: Acute (12) Chest pain Status: Acute (13) CHF (congestive heart failure) Status: Acute (14) Decubitus skin ulcer Status: Acute (15) Decubitus ulcer of right buttock Status: Acute (16) Diabetes Status: Acute (17) Drug (multiple) resistant infection Status: Acute (18) Elevated LFTs Status: Acute (19) Elevated liver function tests Status: Acute (20) Failure of outpatient treatment Status: Acute (21) GI bleed Status: Acute (22) GI bleed Status: Acute (23) GI bleeding Status: Acute (24) Hyperglycemia Status: Acute (25) Hyperglycemia Status: Acute (26) Hypomagnesemia Status: Acute (27) Hypotension Status: Acute (28) Hypoxia Status: Acute (29) Hypoxia Status: Acute (30) Left leg cellulitis Status: Acute (31) Localized swelling of both lower legs Status: Acute (32) Lower extremity edema Status: Acute (33) Obesity Status: Acute (34) Peripheral edema Status: Acute (35) Precordial chest pain Status: Acute (36) Subtherapeutic anticoagulation Status: Acute (37) Subtherapeutic international normalized ratio (INR) Status: Acute (38) Subtherapeutic international normalized ratio (INR) Status: Acute (39) Transaminitis Status: Acute (40) Urinary tract infection Status: Acute (41) Urinary tract infection Status: Acute (42) UTI (urinary tract infection) Status: Acute (43) UTI (urinary tract infection) Status: Acute Family History Cancer Diabetes mellitus Gallbladder disease Heart disease Hypertension Kidney disease Lung disease Social History Smoking Status: Former Smoker Drug Use: none Marital Status: Housing Status: lives with family Occupation Status: disabled Allergies Coded Allergies: No Known Allergies (Verified , 11/03/16) Home Medications Scheduled Atenolol (Atenolol), 25 MG PO DAILY Colchicine (Colchicine), 0.6 MG PO DAILY Febuxostat (Uloric), 80 MG PO DAILY Furosemide (Furosemide), 40 MG PO DAILY Gabapentin (Gabapentin), 600 MG PO TID Insulin Aspart (Novolog Flexpen), 1 DOSE SC QID Insulin Glargine (Toujeo Solostar), 120 UNITS SC BID Magnesium Oxide (Mag-Ox), 400 MG PO DAILY Pantoprazole (Pantoprazole Sodium), 40 MG PO DAILY Potassium Chloride Microencaps (Potassium Chloride Er), 20 MEQ PO DAILY Warfarin Sodium (Warfarin Sodium), 2.5 MG PO 4XWK Warfarin Sodium (Warfarin Sodium), 5 MG PO 3XWK Scheduled PRN Miconazole Nitrate (Desenex Shake Powder), 1 APPLN TOP QID PRN for Affected Area (s) Nystatin (Topical) (Nystop), 1 APPLN TOP BID PRN for Affected Skin Folds Oxycodone Hcl (Oxycodone Hcl), 10 MG PO 5XD PRN for Pain Oxycodone Ir (Roxicodone Ir), 15 MG PO 5XD PRN for Pain Current Inpatient Medications Current Inpatient Medications Medications (Trade) Dose Ordered Sig/Alvaro Route Start Time Stop Time Status Last Admin Dose Admin Atenolol (Tenormin Tab) 25 mg DAILY PO 03/25/18 09:00 04/24/18 08:59 Colchicine (Colchicine Tab) 0.6 mg DAILY PO 03/25/18 09:00 04/24/18 08:59 Furosemide (Lasix Tab) 40 mg DAILY PO 03/25/18 09:00 04/24/18 08:59 Gabapentin (Neurontin Tab) 600 mg TID PO 03/25/18 09:00 04/24/18 08:59 Magnesium Oxide (Mag-Ox Tab) 400 mg DAILY PO 03/25/18 09:00 04/24/18 08:59 Oxycodone HCl (Roxicodone Immediate Rel Tab) 15 mg Q8H PRN PO 03/25/18 03:45 04/08/18 03:44 Pantoprazole Sodium (Protonix Tab) 40 mg DAILY PO 03/25/18 09:00 04/24/18 08:59 Potassium Chloride (Klor-Con Tab) 20 meq DAILY PO 03/25/18 09:00 04/24/18 08:59 Febuxostat (Uloric) 80 mg DAILY PO 03/25/18 09:00 04/24/18 08:59 Insulin Glargine (Lantus Vial) 60 units BID SC 03/25/18 21:00 04/24/18 20:59 Insulin Aspart (novoLOG ASPART) SLIDING SCALE G... ACHS SC 03/25/18 07:00 04/24/18 06:59 Glucose (Glucose 40% Gel) 15-30 GRAMS 15 GRAMS... UD PRN PO 03/25/18 04:00 04/24/18 03:59 Glucose (Glucose Chew Tab) 4-8 Tablets 4 Tabl... UD PRN PO 03/25/18 04:00 04/24/18 03:59 Dextrose (Dextrose 50% 50ML Syringe) 25-50ML 25ML FOR ... UD PRN IV 03/25/18 04:00 04/24/18 03:59 Glucagon (Glucagon Inj) 1 mg UD PRN IM 03/25/18 04:00 04/24/18 03:59 Carbohydrates (Carbohydrates For Hypoglycemia) 15-30 GRAMS 15 grams if BSG 54-69... UD PRN PO 03/25/18 04:00 04/24/18 03:59 Al Hydrox/Mg Hydrox/Simethicone (Maalox Max Susp) 15 ml Q4H PRN PO 03/25/18 04:00 04/24/18 03:59 Magnesium Hydroxide (Milk Of Magnesia Susp) 30 ml Q12H PRN PO 03/25/18 04:00 04/24/18 03:59 Ondansetron HCl (Zofran Inj) 4 mg Q6H PRN IV 03/25/18 04:00 04/24/18 03:59 Phytonadione 5 mg/ Sodium Chloride 50.5 ml @ 101 mls/hr ONE ONCE IV 03/25/18 05:15 03/25/18 05:44 Miscellaneous (Iv Fluids Completed) 1 ea PRN PRN N/A 03/25/18 04:15 03/25/19 04:14 Review of Systems Constitutional: No fever, No chills Respiratory: No shortness of breath Cardiovascular: No chest pain Genitourinary - Male: No hematuria, No dysuria Integumentary: No new/changing skin lesions, No color change Physical Exam Date Time Temp Pulse Resp B/P (MAP) Pulse Ox O2 Delivery O2 Flow Rate FiO2 03/25/18 04:30 36.7 98 18 122/76 98 03/25/18 04:15 36.7 99 20 126/82 97 03/25/18 03:35 98 20 97/65 97 Room Air 03/25/18 02:37 104 18 96 Room Air 03/25/18 02:34 115/74 03/25/18 02:32 104 18 03/25/18 02:31 125/79 03/25/18 02:27 103 17 03/25/18 02:26 132/86 03/25/18 02:22 103 15 03/25/18 02:21 119/76 03/25/18 02:17 102 21 03/25/18 02:16 122/76 03/25/18 02:12 102 17 122/66 03/25/18 02:07 102 23 03/25/18 02:06 122/78 03/25/18 02:02 100 20 03/25/18 02:01 119/73 03/25/18 01:57 101 16 03/25/18 01:56 119/75 03/25/18 01:52 99 20 03/25/18 01:51 116/73 03/25/18 01:47 99 22 111/86 03/25/18 01:42 100 23 03/25/18 01:41 110/64 03/25/18 01:37 102 111/71 97 03/25/18 01:32 101 20 95 03/25/18 01:31 84/66 03/25/18 01:27 101 17 96 Room Air 03/25/18 01:26 83/55 03/25/18 01:23 100/61 03/25/18 01:22 101 13 03/25/18 01:21 97/60 03/25/18 01:20 90/53 03/25/18 01:17 99 18 81/62 03/25/18 01:12 103 25 03/25/18 01:07 104 03/25/18 01:02 105 03/25/18 00:58 104 03/25/18 00:57 104 21 03/25/18 00:54 144/95 03/25/18 00:29 36.9 105 18 127/83 98 Room Air General Appearance: no apparent distress, + obese Head: normocephalic, atraumatic ENT: hearing grossly normal Respiratory/Chest: no respiratory distress Abdomen/GI: non tender, soft, no organomegaly, no pulsatile mass, + pertinent finding (colostomy present with some dark brown fluid in bag, small amount of loose stool in bag adjacent to stoma, no active bleeding from stoma appreciated at this time) Neurologic/Psych: alert, normal mood/affect, oriented x 3 Skin: normal color, warm/dry Laboratory Results Last 24 Hours Test 03/25/18 01:12 White Blood Count 9.15 K/uL Red Blood Count 3.52 M/uL Hemoglobin 11.8 g/dL Hematocrit 35.0 % Mean Corpuscular Volume 99.4 fL Mean Corpuscular Hemoglobin 33.5 pg Mean Corpuscular Hemoglobin Concent 33.7 g/dl Platelet Count 184 K/uL Mean Platelet Volume 9.7 fL Neutrophils (%) (Auto) 74.5 % Lymphocytes (%) (Auto) 17.8 % Monocytes (%) (Auto) 4.8 % Eosinophils (%) (Auto) 2.2 % Basophils (%) (Auto) 0.3 % Neutrophils # (Auto) 6.81 K/uL Lymphocytes # (Auto) 1.63 K/uL Monocytes # (Auto) 0.44 K/uL Eosinophils # (Auto) 0.20 K/uL Basophils # (Auto) 0.03 K/uL RDW Standard Deviation 53.1 fL RDW Coefficient of Variation 14.9 % Immature Granulocyte % (Auto) 0.4 % Immature Granulocyte # (Auto) 0.04 K/uL Prothrombin Time 22.2 SECONDS Prothromb Time International Ratio 2.1 Activated Partial Thromboplast Time 33.5 SECONDS Partial Thromboplastin Ratio 1.3 Sodium Level 131 mmol/L Potassium Level 4.1 mmol/L Chloride Level 97 mmol/L Carbon Dioxide Level 26 mmol/L Anion Gap 8.0 mmol/L Blood Urea Nitrogen 24 mg/dl Creatinine 1.86 mg/dl Estimated GFR () 49.5 Estimated GFR (Non- 42.7 BUN/Creatinine Ratio 12.8 Random Glucose 365 mg/dl Calcium Level 8.5 mg/dl Magnesium Level 1.8 mg/dl Total Bilirubin 0.8 mg/dl Direct Bilirubin mg/dl Aspartate Amino Transf (AST/SGOT) 113 U/L Alanine Aminotransferase (ALT/SGPT) 78 U/L Alkaline Phosphatase 166 U/L Total Protein 7.5 gm/dl Albumin 2.8 gm/dl Beta-Hydroxybutyric Acid mg/dL Chemistry Specimen Hemolysis Assessment & Plan Bleeding into colostomy bag Findings discussed with Dr. watson and Dr. Morales. Abdomen soft, non-distended, non-tender. afebrile. INR 2.1. Pulse 96, remaining vitals stable at this time. No active bleeding appreciated from stoma at this time. Recommend tertiary center at this time for further evaluation, possible angiogram to determine source of bleed and further intervention. Would keep NPO for now and continue to hold Coumadin. Please contact with questions or concerns.
[2018-03-25] MEDS: MAGNESIUM OXIDE 400 MG TAB PO SCH (07:42)
[2018-03-25] MEDS: FUROSEMIDE 40 MG TAB PO SCH (07:42)
[2018-03-25] MEDS: POTASSIUM CHLORIDE 20 MEQ TABCR PO SCH (07:42)
[2018-03-25] MEDS: COLCHICINE 0.6 MG TAB PO SCH (07:43)
[2018-03-25] MEDS: FEBUXOSTAT 40 MG TAB PO SCH (07:43)
[2018-03-25] MEDS: GABAPENTIN 600 MG TAB PO SCH ×3 (07:43→20:52)
[2018-03-25] MEDS: PANTOprazole SOD 40 MG TAB PO SCH (07:44)
[2018-03-25] MEDS: INSULIN ASPART 100 UNITS/ML 3 ML PEN SC SCH ×4 (07:48→20:51)
--- NOTE | 2018-03-25 10:24 | Progress Note ---
Progress Note Date of Service Mar 25, 2018. Progress Note Patient is receiving FFP. Will monitor his hemoglobin. Patient received one unit of PRBC. D/W gastro team, plan is to monitor his hemoglobin. Currently hemoglobin is above 10. Will hold off second unit of PRBC. If hemoglobin continues to decrease may consider a formal GI consult. I examined patient, patient did not appear to be in distress. Patient is not tachypnic. Heart: RRR, L S1 S2, Lung: clear; Abd: soft, ostomy shows dark fluid Spent over 40 minutes on management of case, through multiple visits and discussing case with consultants.
[2018-03-25 16:08] LABS: HEMATOCRIT 30.4 % (42-52); HEMOGLOBIN 10.1 g/dL (14.0-18.0)
[2018-03-25 19:49] LABS: HEMOGLOBIN 9.6 g/dL (14.0-18.0)
[2018-03-25 20:45] LABS: INR 1.4 (0.9-1.1)
[2018-03-25] MEDS: INSULIN GLARGINE SC SCH (22:10)
[2018-03-26] VITALS (16 sets, daily range): BP systolic 97–140; BP diastolic 66–91; PULSE 87–109; TEMP 36.6–37; O2SAT 92–98
[2018-03-26 01:59] LABS: HEMATOCRIT 27.3 % (42-52); HEMOGLOBIN 9.2 g/dL (14.0-18.0)
[2018-03-26] MEDS: PANTOprazole SOD 40 MG TAB PO SCH (08:18)
[2018-03-26] MEDS: COLCHICINE 0.6 MG TAB PO SCH (08:18)
[2018-03-26] MEDS: GABAPENTIN 600 MG TAB PO SCH ×3 (08:18→21:19)
[2018-03-26] MEDS: FUROSEMIDE 40 MG TAB PO SCH (08:19)
[2018-03-26] MEDS: POTASSIUM CHLORIDE 20 MEQ TABCR PO SCH (08:19)
[2018-03-26] MEDS: FEBUXOSTAT 40 MG TAB PO SCH (08:19)
[2018-03-26] MEDS: MAGNESIUM OXIDE 400 MG TAB PO SCH (08:23)
[2018-03-26] MEDS: INSULIN ASPART 100 UNITS/ML 3 ML PEN SC SCH ×4 (08:31→21:24)
[2018-03-26] MEDS: INSULIN GLARGINE SC SCH ×2 (08:31→21:23)
[2018-03-26 09:24] LABS: MEAN CELL VOLUME 95.7 fL (80-100); MEAN CORPUSCULAR HEMOGLOBIN 31.9 pg (25-34); MEAN CORPUSCULAR HGB CONC 33.3 g/dl (32-36); MEAN PLATELET VOLUME 9.6 fL (7.4-10.4); PLATELET COUNT 153 K/uL (130-400); RED CELL DISTRIBUTION WIDTH CV 17.3 % (11.5-14.5); RED CELL DISTRIBUTION WIDTH SD 60.5 fL (36.4-46.3); WHITE BLOOD COUNT 7.99 K/uL (4.8-10.8)
[2018-03-26 09:56] LABS: CALCIUM 7.8 mg/dl (8.5-10.1); CREATININE 1.4 mg/dl (0.60-1.40); POTASSIUM 3.8 mmol/L (3.5-5.1)
--- NOTE | 2018-03-26 10:35 | Gastrointestinal Consultation ---
Gastrointestinal Consultation Date of Consultation: Mar 26, 2018 Attending Physician: Dr. Goncalves Consulting Physician: Archana Ayoub PA-C Reason for Consultation: GI bleeding History of Present Illness Patient is a 47 year old male with a history of Hirschsprung's disease s/p colostomy in 2013, endocarditis, mitral valve repair, diastoic CHF, pulmonary HTN, DM2, CAD, PE on Coumadin, CVA with residual R weakness, Hepatitis C & recurrent PE & DVT for which he is on chronic anticoagulation. He was evaluated over the weekend by Ramy CALDWELL and the source of the bleed was determined to be parastomal. He was asked to have a surgery eval, but he signed out AMA. He returned to the hospital with additional bleeding. He reports to me that his colostomy bag was just changed an hour prior to my visit. There appears to be bleeding around the stoma. His Hemoglobin was 14.3 several days ago and now is 9.0. He denies abdominal pain, nausea, fever, or chills. His Coumadin is presently held. Surgery has evaluated and recommended evaluation at a tertiary center. Past Medical/Surgical History Medical Problems: (1) Abdominal pain Status: Acute (2) Acute epididymitis Status: Acute (3) Acute kidney injury Status: Acute (4) [id number] kidney injury Status: Acute (5) Anemia Status: Acute (6) Anticoagulated on Coumadin Status: Acute (7) Anticoagulated on Coumadin Status: Acute (8) Bilateral pneumonia Status: Acute (9) Cellulitis Status: Acute (10) Cellulitis in diabetic foot Status: Acute (11) Cellulitis of both lower extremities Status: Acute (12) Chest pain Status: Acute (13) CHF (congestive heart failure) Status: Acute (14) Decubitus skin ulcer Status: Acute (15) Decubitus ulcer of right buttock Status: Acute (16) Diabetes Status: Acute (17) Drug (multiple) resistant infection Status: Acute (18) Elevated LFTs Status: Acute (19) Elevated liver function tests Status: Acute (20) Failure of outpatient treatment Status: Acute (21) GI bleed Status: Acute (22) GI bleed Status: Acute (23) GI bleeding Status: Acute (24) Hyperglycemia Status: Acute (25) Hyperglycemia Status: Acute (26) Hypomagnesemia Status: Acute (27) Hypotension Status: Acute (28) Hypoxia Status: Acute (29) Hypoxia Status: Acute (30) Left leg cellulitis Status: Acute (31) Localized swelling of both lower legs Status: Acute (32) Lower extremity edema Status: Acute (33) Obesity Status: Acute (34) Peripheral edema Status: Acute (35) Precordial chest pain Status: Acute (36) Subtherapeutic anticoagulation Status: Acute (37) Subtherapeutic international normalized ratio (INR) Status: Acute (38) Subtherapeutic international normalized ratio (INR) Status: Acute (39) Transaminitis Status: Acute (40) Urinary tract infection Status: Acute (41) Urinary tract infection Status: Acute (42) UTI (urinary tract infection) Status: Acute (43) UTI (urinary tract infection) Status: Acute Past Medical History: Diastolic CHF, Pulmonary HTN, MV repair, CAD, CVA, DVT/PE, hep C, Hirschsprung's , HTN, DM2, morbid obesity Past Surgical History: LAD CABG Cath with stents to RCA & LAD Colostomy 2014 Mitral valve repair x 2, 2003, 2015 Family History Cancer Diabetes mellitus Gallbladder disease Heart disease Hypertension Kidney disease Lung disease Social History Smoking Status: Former Smoker Alcohol Use: none Drug Use: none Marital Status: Housing Status: lives with family Occupation Status: disabled Allergies Coded Allergies: No Known Allergies (Verified , 11/03/16) Current Medications Home Meds and Scripts Medications Dose Route/Sig Max Daily Dose Days Date Category Dose Instructions Roxicodone Ir (Oxycodone HCl) 5 Mg Tab 15 Mg PO 5XD PRN 03/24/18 Reported Uloric (Febuxostat) 80 Mg Tab 80 Mg PO DAILY 10/02/17 Reported Warfarin Sodium 5 Mg Tab 5 Mg PO 3XWK 08/18/17 Reported TAKE 5 MG EVERY MONDAY,MONDAY AND MONDAY OR OTHERWISE DIRECTED TO TAKE BY ANTICOAGULATION CLINIC/MD Warfarin Sodium 5 Mg Tab 2.5 Mg PO 4XWK 08/18/17 Reported TAKE HALF A TABLET (2.5 MG) EVERY MONDAY,MONDAY, MONDAY AND MONDAY OR OTHERWISE DIRECTED TO TAKE BY ANTICOAGULATION CLINIC/MD Furosemide 40 Mg Tab 40 Mg PO DAILY 08/18/17 Reported Colchicine 0.6 Mg Tab 0.6 Mg PO DAILY 08/18/17 Reported Desenex Shake Powder (Miconazole Nitrate) 43 Appln/43 Gm Powd 1 Appln TOP QID PRN 08/18/17 Reported Mag-Ox (Magnesium Oxide) 400 Mg Tab 400 Mg PO DAILY 08/18/17 Reported Atenolol 25 Mg Tab 25 Mg PO DAILY 11/04/16 Reported Toujeo Solostar (Insulin Glargine) 300 Unit/Ml Inj 120 Units SC BID 04/15/16 Reported Novolog Flexpen (Insulin Aspart) 100 Units/Ml Inj 1 Dose SC QID 04/15/16 Reported DOSE DIRECTED BY SLIDING SCALE Potassium Chloride Er (Potassium Chloride Microencaps) 20 Meq Tab 20 Meq PO DAILY 04/15/16 Reported Pantoprazole Sodium (Pantoprazole) 40 Mg Tab 40 Mg PO DAILY 04/15/16 Reported Oxycodone Hcl 10 Mg Tab 10 Mg PO 5XD PRN 04/15/16 Reported Gabapentin 600 Mg Tab 600 Mg PO TID 04/15/16 Reported Nystop (Nystatin (Topical)) 100,000 Unit/Gm Pow 1 Appln TOP BID PRN 03/15/16 Reported Review of Systems Constitutional: No fever, No chills, No weakness Eyes: No problem reported ENT: No problem reported Respiratory: No cough, No shortness of breath Cardiac: No chest pain Abdomen: + GI bleeding, No pain, No nausea, No vomiting Musculoskeletal: No joint pain Neuro: + weakness Psych: No problem reported Heme: + abnormal bleeding/bruising Endo: No fatigue Skin: No problem reported Physical Exam Date Time Temp Pulse Resp B/P (MAP) Pulse Ox O2 Delivery O2 Flow Rate FiO2 03/26/18 08:20 Room Air 03/26/18 06:21 36.7 104 18 121/78 97 03/26/18 06:01 36.7 102 16 140/91 98 03/26/18 05:53 36.6 104 16 132/91 97 03/26/18 05:42 36.6 109 18 132/88 98 03/26/18 05:26 36.7 109 18 123/70 98 03/26/18 03:47 36.8 94 18 120/77 (91) 97 Room Air 03/25/18 23:33 36.7 89 20 123/82 (96) 98 Room Air 03/25/18 20:00 36.8 88 18 123/65 (84) 94 Room Air 03/25/18 20:00 Room Air 03/25/18 15:34 36.6 90 20 111/68 (82) 97 Room Air 03/25/18 10:34 36.6 85 16 107/72 (84) 93 Room Air 03/25/18 10:25 87 120/83 (95) 97 Room Air General Appearance: WD/WN, no apparent distress Eyes: normal inspection, PERRL ENT: hearing grossly normal Respiratory/Chest: lungs clear (though evaluated limited due to body habitus) Cardiovascular: regular rate, rhythm (auscultation difficult due to body habitus) Abdomen: non tender, soft (difficult to auscultate due to body habitus) Extremities: normal range of motion Neurologic/Psych: alert, oriented x 3 Skin: normal color Laboratory Results Last 24 Hours Test 03/25/18 11:07 03/25/18 12:00 03/25/18 15:50 03/25/18 16:25 Bedside Glucose 212 mg/dl 256 mg/dl Hemoglobin 10.5 g/dL 10.1 g/dL Hematocrit 30.4 % Test 03/25/18 19:32 03/25/18 20:09 03/25/18 20:20 03/26/18 01:44 Hemoglobin 9.6 g/dL 9.2 g/dL Hematocrit 29.0 % 27.3 % Bedside Glucose 296 mg/dl Prothrombin Time 14.4 SECONDS Prothromb Time International Ratio 1.4 Test 03/26/18 07:10 03/26/18 09:17 Bedside Glucose 172 mg/dl White Blood Count 7.99 K/uL Red Blood Count 2.82 M/uL Hemoglobin 9.0 g/dL Hematocrit 27.0 % Mean Corpuscular Volume 95.7 fL Mean Corpuscular Hemoglobin 31.9 pg Mean Corpuscular Hemoglobin Concent 33.3 g/dl RDW Standard Deviation 60.5 fL RDW Coefficient of Variation 17.3 % Platelet Count 153 K/uL Mean Platelet Volume 9.6 fL Sodium Level 133 mmol/L Potassium Level 3.8 mmol/L Chloride Level 99 mmol/L Carbon Dioxide Level 28 mmol/L Anion Gap 6.0 mmol/L Blood Urea Nitrogen 20 mg/dl Creatinine 1.40 mg/dl Est Creatinine Clear Calc Drug Dose 99.1 ml/min Estimated GFR () 69.8 Estimated GFR (Non- 60.3 BUN/Creatinine Ratio 14.0 Random Glucose 278 mg/dl Calcium Level 7.8 mg/dl Impression Patient is a 47 year old male with Hirschsprung's Disease s/p colostomy in 2013. He presents to the hospital with blood in his ostomy bag. His H/H is 9.0/ 27.0. Plan Patient has been evaluated by surgery at this time. They have recommended transfer to a tertiary center for further evaluation. Due to his extensive medical comorbidities, I would agree with this recommendation. In the interim, would continue to monitor H/H and monitor for further bleeding. Would consider transfusing if he continues to bleed, however would use caution given his history of CHF. Would recommend Protonix 40 mg BID. Thank you for allowing us to participate in the care of this patient. If you should have any further questions or concerns, do not hesitate to contact us. Agree with REYNOLD Yung as above Abd: Soft, NT, Obese, Ostomy with liquid stool Transfer [place] [facility] [place] Continue supportive care
--- NOTE | 2018-03-26 10:50 | Surgery Progress Note ---
Surgery Progress Note Date of Service Mar 26, 2018. Subjective Patient feeling ok- sitting up in bed, eating. States that he feels fine, no dizziness or lightheadedness. Objective Vital Signs: Date Time Temp Pulse Resp B/P (MAP) Pulse Ox O2 Delivery O2 Flow Rate FiO2 03/26/18 08:20 Room Air 03/26/18 06:21 36.7 104 18 121/78 97 03/26/18 06:01 36.7 102 16 140/91 98 03/26/18 05:53 36.6 104 16 132/91 97 03/26/18 05:42 36.6 109 18 132/88 98 03/26/18 05:26 36.7 109 18 123/70 98 03/26/18 03:47 36.8 94 18 120/77 (91) 97 Room Air 03/25/18 23:33 36.7 89 20 123/82 (96) 98 Room Air 03/25/18 20:00 36.8 88 18 123/65 (84) 94 Room Air 03/25/18 20:00 Room Air 03/25/18 15:34 36.6 90 20 111/68 (82) 97 Room Air Abdomen: non tender, soft, + pertinent finding (continues to have bleeding into colostomy bag. ) Laboratory Results: Results Past 24 Hours Test 03/25/18 11:07 03/25/18 12:00 03/25/18 15:50 03/25/18 16:25 Range/Units Bedside Glucose 212 256 70-99 mg/dl Hemoglobin 10.5 10.1 14.0-18.0 g/dL Hematocrit 30.4 42-52 % Test 03/25/18 19:32 03/25/18 20:09 03/25/18 20:20 03/26/18 01:44 Range/Units Hemoglobin 9.6 9.2 14.0-18.0 g/dL Hematocrit 29.0 27.3 42-52 % Bedside Glucose 296 70-99 mg/dl Prothrombin Time 14.4 9.0-12.0 SECONDS Prothromb Time International Ratio 1.4 0.9-1.1 Test 03/26/18 07:10 03/26/18 09:17 Range/Units Bedside Glucose 172 70-99 mg/dl White Blood Count 7.99 4.8-10.8 K/uL Red Blood Count 2.82 4.7-6.1 M/uL Hemoglobin 9.0 14.0-18.0 g/dL Hematocrit 27.0 42-52 % Mean Corpuscular Volume 95.7 80-100 fL Mean Corpuscular Hemoglobin 31.9 25-34 pg Mean Corpuscular Hemoglobin Concent 33.3 32-36 g/dl RDW Standard Deviation 60.5 36.4-46.3 fL RDW Coefficient of Variation 17.3 11.5-14.5 % Platelet Count 153 130-400 K/uL Mean Platelet Volume 9.6 7.4-10.4 fL Sodium Level 133 136-145 mmol/L Potassium Level 3.8 3.5-5.1 mmol/L Chloride Level 99 98-107 mmol/L Carbon Dioxide Level 28 21-32 mmol/L Anion Gap 6.0 3-11 mmol/L Blood Urea Nitrogen 20 7-18 mg/dl Creatinine 1.40 0.60-1.40 mg/dl Est Creatinine Clear Calc Drug Dose 99.1 ml/min Estimated GFR () 69.8 Estimated GFR (Non- 60.3 BUN/Creatinine Ratio 14.0 10-20 Random Glucose 278 70-99 mg/dl Calcium Level 7.8 8.5-10.1 mg/dl Assessment & Plan Patient seen and examined this AM. Hgb 9.0 this AM. Patient continues to have bleeding into colostomy bag. Transfusion. With patient's multiple health issues and current bleeding into colostomy, General Surgery recommends that patient be transferred to tertiary facility for further evaluation and possible intervention. General Surgery will sign off at this time. Please call with any questions or concerns.
[2018-03-26 16:10] LABS: HEMATOCRIT 26.4 % (42-52); HEMOGLOBIN 8.6 g/dL (14.0-18.0)
[2018-03-26] MEDS ORDERED: PANTOprazole SOD 40 MG TAB PO SCH (21:00)
--- NOTE | 2018-04-01 23:14 | Discharge Summary ---
Discharge Summary Date of Service Mar 26, 2018. Discharge Summary Admission Date: Mar 25, 2018 at 23:33 Discharge Date: Mar 26, 2018 Discharge Disposition: Acute care facility Principal Diagnosis: Bleeding from ostomy Immunizations: Have You Had Influenza Vaccine: No History of Tetanus Vaccine?: Yes Tetanus Immunization Date: Jun 01, 2007 History of Pneumococcal: No History of Hepatitis B Vaccine: Unknown Discharge Exam Review of systems Constitutional: + weakness, No fever, No chills, No sweats Eyes: No worsening of vision ENT: No hearing loss, No unusual epistaxis, No nasal symptoms Respiratory: No cough, No sputum, No wheezing Cardiovascular: No chest pain, No orthopnea, No PND Abdomen: + problem reported (Blood in colostomy bag), No pain, No nausea, No vomiting Musculoskeletal: No joint pain Genitourinary - Male: No hematuria, No dysuria, No urinary frequency Neurologic: + weakness, No memory loss Psychiatric: No depression symptoms Endocrine: No fatigue Hematologic / Lymphatic: + abnormal bleeding/bruising Integumentary: No rash Allergic / Immunologic: No environmental allergies Physical Exam General Appearance: WD/WN, no apparent distress Head: normocephalic Eyes: normal inspection ENT: normal ENT inspection, pharynx normal Neck: supple, no adenopathy Respiratory/Chest: chest non-tender, lungs clear, normal breath sounds Cardiovascular: regular rate, rhythm, no edema, no gallop, + systolic murmur Abdomen/GI: normal bowel sounds, non tender, soft, + pertinent finding (Blood in colostomy bag) Back: normal inspection, no CVA tenderness Extremities/Musculoskelatal: + pedal edema Neurologic/Psych: marketing representative II-XII nml as tested, no motor/sensory deficits, alert, oriented x 3 Skin: + pallor, + pertinent finding (Erthema of lower extremities ) Hospital Course 47 y/o M with complex medical history including endocarditis, mitral valve repair, diastolic CHF, pulmonary HTN, DM II, CAD, PE on Coumadin, CVA with residual R weakness, Hirschsprung's disease leading to colostomy placement. The pt presented one day prior due to gross blood in his colostomy bag. He was evaluated AM by the GI service who determined that the source of the bleed was parastomal and that there was no blood coming from the intestine. It was recommended that he be evaluated by surgery for this, however, he signed out against medical advice. He returns this evening with additional bleeding. He exhibited pallor and mild hypotension on arrival to the ER, although he responded well to a fluid bolus. Initial INR is 2.1. An Hb is 11.8 down from 14.3 the prior day. 1) Parastomal bleeding - surgery/GI consulted. - Recommended tertiary center. -this was discussed over phone and patient was accepted TO [facility] -Patient received 2 units of PRBC during hospital stay.. -ASA and coumadin were held. . 2) CHF - difficult to assess volume status due to habitus - we will continue Lasix and Atenolol as he is placed on a clear diet 3) DM II - placed on a SS - Lantus provided at 50% of home dose 4) History of PE - will need to resume Coumadin at earliest possible time 5) CAD - no evidence of ACS - resume ASA when possible - cont B armen - presumably he is statin-intolerant 6) UA one day prior was (+) - he was started on Ceftriaxone which we will continue Full code - SCDs Total Time Spent: Greater than 30 minutes This includes examination of the patient, discharge planning, medication reconciliation, and communication with other providers. Discharge Instructions Please refer to the electronic Patient Visit Report (Discharge Instructions) for additional information. Follow-Up Transfer to tertiary center Please refer to paper chart for discharge transfer meds. Additional Copies To Demarcus Nicholson D.O.
== END 2018-03-26 22:00 | disposition short-term general hospital (02) | DRG 394 ==
LOC: C.EDB 00:29 → C.2T 03:56 → ENRESERV 04:14 → OBSVTOIN 23:33
PROVIDERS: ADMIT Internal Medicine; ATTEND Internal Medicine Sports Medicine
DX: K94.01 Colostomy hemorrhage (principal); I50.30 Unspecified diastolic (congestive) heart failure; Q43.1 Hirschsprung's disease; I69.351 Hemiplegia and hemiparesis following cerebral infarction affecting right dominant side; E11.21 Type 2 diabetes mellitus with diabetic nephropathy; M10.9 Gout, unspecified; Z95.1 Presence of aortocoronary bypass graft; Z87.891 Personal history of nicotine dependence; Z79.4 Long term (current) use of insulin; Z79.01 Long term (current) use of anticoagulants; D64.9 Anemia, unspecified; I27.20 Pulmonary hypertension, unspecified; I11.0 Hypertensive heart disease with heart failure; I25.10 Atherosclerotic heart disease of native coronary artery without angina pectoris; Z86.718 Personal history of other venous thrombosis and embolism; Z86.711 Personal history of pulmonary embolism; E66.01 Morbid (severe) obesity due to excess calories; Z86.19 Personal history of other infectious and parasitic diseases; Z83.3 Family history of diabetes mellitus; Z82.49 Family history of ischemic heart disease and other diseases of the circulatory system

== ENCOUNTER 2018-08-18 13:54 | Inpatient (IN) ==
[2018-08-18 15:06] LABS: Basophils # (auto) 0.03 K/uL (0-0.2); Basophils % (auto) 0.4 %; Eosinophils # (auto) 0.18 K/uL (0-0.5); Eosinophils % (auto) 2.4 %; Hematocrit (blood only) 47.1 % (42-52); Hemoglobin 15.5 g/dL (14.0-18.0); Immature Granulocytes # (auto) 0.01 K/uL (0.00-0.02); Immature Granulocytes % (auto) 0.1 %; Lymphocytes # (auto) 1.22 K/uL (1.2-3.4); Lymphocytes % (auto) 16.5 %; Mean Corpuscular Hgb Conc 32.9 g/dL (32-36); Mean Corpuscular Volume 95.7 fL (80-100); Mean Platelet Volume 10.2 fL (7.4-10.4); Monocytes # (auto) 0.34 K/uL (0.11-0.59); Monocytes % (auto) 4.6 %; Platelet Count 156 K/uL (130-400); RDW Coefficient of Variation 17.1 % (11.5-14.5); RDW Standard Deviation 59.2 fL (36.4-46.3); Red Blood Count 4.92 M/uL (4.7-6.1); White Blood Count 7.38 K/uL (4.8-10.8)
[2018-08-18 15:22] LABS: Albumin Level 3.1 gm/dl (3.4-5.0); BUN Creatinine Ratio 14.3 (10-20); Est GFR (African American) 59.5; Est GFR (Non-African American) 51.3; Potassium 4.2 mmol/L (3.5-5.1)
[2018-08-18 15:25] LABS: Albumin Globulin Ratio 0.6 (0.9-2); Globulin 5.6 gm/dl (2.5-4.0); Total Protein 8.7 gm/dl (6.4-8.2)
--- NOTE | 2018-08-18 15:37 | Emergency Department Note ---
History of Present Illness General Chief complaint: Referred by Doctor Stated complaint: BACTERIAL INFECTION AT ILEOSTOMY BAG, ABX IV NEEDE Source: patient Mode of arrival: ambulatory Limitations: no limitations History of Present Illness Maximum Pain Intensity: 5 This patient is a 48-year-old male who presents to the emergency department complaining of an infection on his abdomen. The patient reports that when he had his ileostomy several years ago, he also developed a wound on the left side of his abdomen. He reports that for the last 1 month, it has been leaking some fluid. For the past 10 days, there has been increased drainage from the area. He saw his primary care provider about 1 week ago and they performed a culture. They called him with the results today and told him that he would need IV antibiotics and he should go to the ER. He denies any pain in the area or fevers. He has no other complaints at this time. 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 Home Medications Home Medications Medication Instructions Recorded Confirmed Type atenolol 25 mg PO DAILY 08/18/18 08/18/18 History colchicine 0.6 mg PO DAILY 08/18/18 08/18/18 History febuxostat 80 mg PO DAILY 08/18/18 08/18/18 History furosemide 40 mg PO DAILY 08/18/18 08/18/18 History gabapentin 600 mg PO TID 08/18/18 08/18/18 History insulin asp prt-insulin aspart 115 unit SUBCUT TID 08/18/18 08/18/18 History [Novolog Mix 70-30FlexPen U-100] insulin glargine 136 unit SUBCUT BID 08/18/18 08/18/18 History magnesium oxide 400 mg PO DAILY 08/18/18 08/18/18 History miconazole nitrate 1 applic TOPICAL QID 08/18/18 08/18/18 History nystatin [Nystop] 1 applic TOPICAL BID PRN 08/18/18 08/18/18 History oxycodone 30 mg PO TID 08/18/18 08/18/18 History pantoprazole 40 mg PO DAILY 08/18/18 08/18/18 History potassium chloride 20 meq PO DAILY 08/18/18 08/18/18 History warfarin 2.5 mg PO 4XWK 08/18/18 08/18/18 History warfarin 5 mg PO 3XWK 08/18/18 08/18/18 History Allergies Allergy/AdvReac Type Severity Reaction Status Date / Time No Known Allergies Allergy Verified 08/18/18 14:27 Past Med/Surg History Medical History DM type 2 (diabetes mellitus, type 2) (Chronic) Hepatitis C (Chronic) Diabetic nephropathy (Chronic) Paraplegia (Chronic) Brain abscess CAD (coronary atherosclerotic disease) Cerebrovascular accident (CVA) Diastolic congestive heart failure Endocarditis Hirschsprung's disease History of intravenous drug abuse Pulmonary embolism Pulmonary hypertension Surgical History Hx of CABG (Resolved) S/P cardiac cath (Chronic) S/P colostomy (Chronic) H/O mitral valve repair Family History Other Family history non-contributory Social History Current Living Situation: Parent Other Information That Helps Us Care for You: No Feels Safe at Home: Yes Safety Concerns: Feels Safe At This Time Hx Alcohol Use: No Hx Substance Use: Yes substance use type: former substance user Preferred Language: Citizen Of [place] Communication Ability: Effective Loan Review Analyst Required: No Review of Systems A total of 10 systems reviewed and were otherwise negative Physical Exam Vital Signs Vital Signs - 24 hr 08/18/18 13:58 08/18/18 15:56 08/18/18 18:00 Temperature 36.9 C Temperature Source Oral Sepsis Recent Fever Within 48 Hours No Sepsis Action Taken by Nursing No Action Required Pulse Rate 94 H Pulse Rate [Radial] 80 80 Pulse Rhythm [Radial] Regular Regular Respiratory Rate 18 20 20 Respiratory Effort / Characteristics Non-Labored Non-Labored Respiratory Depth Normal Normal Normal Respiratory Pattern Blood Pressure 144/77 H Blood Pressure [Left Arm] 109/68 132/71 Blood Pressure Mean 99 Blood Pressure Mean [Left Arm] 81 91 Blood Pressure Position Sitting Blood Pressure Position [Left Arm] Pulse Oximetry 95 94 92 Oxygen Delivery Method Room Air Room Air Room Air 08/18/18 19:12 08/18/18 20:13 Temperature 37.4 C Temperature Source Oral Sepsis Recent Fever Within 48 Hours Sepsis Action Taken by Nursing Pulse Rate 82 Pulse Rate [Radial] 80 Pulse Rhythm [Radial] Respiratory Rate 20 16 Respiratory Effort / Characteristics Non-Labored Spontaneous Respiratory Depth Normal Respiratory Pattern Regular Blood Pressure 117/59 L Blood Pressure [Left Arm] 134/83 Blood Pressure Mean Blood Pressure Mean [Left Arm] 100 Blood Pressure Position Blood Pressure Position [Left Arm] Sitting Pulse Oximetry 93 95 Oxygen Delivery Method Room Air Room Air VITALS: Vitals are noted on the nurse's note and reviewed by myself. Vital signs stable. GENERAL: This is a 48-year-old male, in no acute distress, nondiaphoretic, well- developed well-nourished. SKIN: There is a chronic appearing wound to the left lower abdomen measuring approximately 2 cm in diameter with foul-smelling drainage present. EARS: External auditory canals clear, tympanic membranes pearly young without erythema or effusion bilaterally. EYES: Pupils equal round and reactive to light and accommodation. MOUTH: Mucous membranes moist. HEART: Regular rate and rhythm without murmurs gallops or rubs. LUNGS: Clear to auscultation bilaterally without wheezes, rales or rhonchi. ABDOMEN: Positive bowel sounds x 4. Soft, nontender to palpation. NEURO: Patient was alert and oriented to person place and time. Course Consultations Consultation #1: Dr. Castano [facility] hospitalist Medical Decision Making Differential Diagnosis Differential diagnosis includes wound infection, cellulitis, sepsis, among others. Medical Records Attestation: I reviewed the patient's medical records. Home Medications Current Medication List: was personally reviewed by me Laboratory Data Attestation: I reviewed the patient's lab results. Result diagrams: 08/18/18 14:42 08/18/18 14:42 Lab Results 08/18/18 08/18/18 08/18/18 Range/Units 14:42 14:42 21:47 WBC 7.38 (4.8-10.8) K/uL RBC 4.92 (4.7-6.1) M/uL Hgb 15.5 (14.0-18.0) g/dL Hct 47.1 (42-52) % MCV 95.7 (80-100) fL MCH 31.5 (25-34) pg MCHC 32.9 (32-36) g/dL RDW Std Deviation 59.2 H (36.4-46.3) fL RDW Coeff of Lorenzo 17.1 H (11.5-14.5) % Plt Count 156 (130-400) K/uL MPV 10.2 (7.4-10.4) fL Immature Gran % (Auto) 0.1 % Neut % (Auto) 76.0 % Lymph % (Auto) 16.5 % [place] % (Auto) 4.6 % Eos % (Auto) 2.4 % Baso % (Auto) 0.4 % Immature Gran # (Auto) 0.01 (0.00-0.02) K/uL Neut # (Auto) 5.60 (1.4-6.5) K/uL Lymph # (Auto) 1.22 (1.2-3.4) K/uL [place] # (Auto) 0.34 (0.11-0.59) K/uL Eos # (Auto) 0.18 (0-0.5) K/uL Baso # (Auto) 0.03 (0-0.2) K/uL Sodium 137 (136-145) mmol/L Potassium 4.2 (3.5-5.1) mmol/L Chloride 100 (98-107) mmol/L Carbon Dioxide 29 (21-32) mmol/L Anion Gap 8.0 (3-11) BUN 23 H (7-18) mg/dl Creatinine 1.59 H (0.6-1.4) mg/dl Est Cr Clr Drug Dosing 82.0 ml/min Est GFR ( Amer) 59.5 Est GFR (Non-Af Amer) 51.3 BUN/Creatinine Ratio 14.3 (10-20) Glucose 193 H (70-99) mg/dl POC Glucose 195 H (70-99) Calcium 9.0 (8.5-10.1) mg/dl Total Bilirubin 1.0 (0.1-1) mg/dl AST 81 H (15-37) U/L ALT 79 H (12-78) U/L Alkaline Phosphatase 134 H (45-117) U/L Total Protein 8.7 H (6.4-8.2) gm/dl Albumin 3.1 L (3.4-5.0) gm/dl Globulin 5.6 H (2.5-4.0) gm/dl Albumin/Globulin Ratio 0.6 L (0.9-2) Blood Pressure Blood Pressure Findings: Normal blood pressure Blood Pressure Disposition: did not require urgent referral MDM Narrative The patient is a 48-year-old male who presents today complaining of a wound infection. Patient has had drainage from an abdominal wound/fistula worsening over the past 10 days. He presents stating that he has a bacteria resistant to antibiotics. He is well-appearing and certainly does not appear to be septic. Labs revealed no leukocytosis, anemia or concerning electrolyte abnormalities. Creatinine is elevated at baseline for the patient. It was able to obtain the culture results from [facility]. This shows that the patient grew out E. coli and Morganella, both resistant to all oral antibiotics and sensitive only to amikacin, cefoxitin, gentamicin and tobramycin. The patient will need to be treated with IV antibiotics. The [facility] hospitalist was consulted and will evaluate the patient for admission/observation. The patient was independently evaluated by Dr. Pérez, who agreed with my assessment and treatment plan. Impression & Plan Wound infection Discharge Plan Visit Data *Final* Discharge Date/Time: 08/18/18 19:12 Chief Complaint: Referred by Doctor Stated Complaint: BACTERIAL INFECTION AT ILEOSTOMY BAG, ABX IV NEEDE ED Provider: Steve Pérez ED Midlevel Provider: Serena Pedroza Discharge Problem: Wound infection Patient Disposition: Admitted As Inpatient Condition: Good Discharge Instructions Interventions: ED Discharge Assessment Last Done: 08/18/18 19:12
--- NOTE | 2018-08-18 17:47 | History & Physical Report ---
Date of Service August 18, 2018 Assessment & Plan (1) Abdominal infection: - Pt had a previous ostomy site in the LLQ and reports this is chronically open; reports drainage x 1 month that is purulent and this has increased over the past 10 days; Cx at his PCP reveals MDR E. coli and Morganella morganii that is susceptible to Amikacin, Cefoxitin, Gentamycin, and Tobramycin - he denies fever/chills or erythema at site - He notes his caregiver cleans this area with hydrogen peroxide and there is some granulation tissue at the inferior border of this previous ostomy site - CT Abd/Pelvis with oral contrast to assess for fistulous tracts as well as maybe any signs of tissue edema however no overt findings to suggest cellulitis - Cefoxitin 1 g IV Q8H - Consult ID - appreciate recommendations Disposition: Patient is a former IVDU and denies active use. Will likely need PICC line for Abx use and home set-up. 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 Discussed that the likelihood of getting all this arranged by then would be unlikely due to the weekend and the holiday. He reports he will need to leave Monday but would come back after to finish treatment Present on Admission?: Yes (2) Hirschsprung's disease: - H/O Subtotal Colectomy with current RLQ ostomy - reports no complications at this time - H/O GI bleed resulting in transfer to [facility] earlier in the year - denies any complications with bleeding at this time and currently back on Warfarin therapy - Hgb stable and will monitor Present on Admission?: Yes (3) DM type 2 (diabetes mellitus, type 2): - He reports he takes Lantus 136 units BID and Novolog 115 mg TID with meals and reports good control - Given the reduction in food intake in the hospital and the inability to truly confirm this dose will conservatively approach this and monitor and adjust as needed - Lantus 40 units SC BID and SSI Present on Admission?: Yes (4) CKD (chronic kidney disease) stage 3, GFR 30-59 ml/min: - Baseline appears to be around 1.4-1.8 and will monitor closely Present on Admission?: Yes (5) Chronic diastolic (congestive) heart failure: - H/O CAD S/P CABG; Pulmonary HTN; R Sided Failure - Does not appear to be in an acute exacerbation at this time and will monitor - Lasix 40 mg daily; Atenolol 25 mg daily Present on Admission?: Yes (6) Pulmonary emboli: - H/O DVT/PE on chronic AC - Continue Coumadin and monitor INR and adjust as necessary Present on Admission?: Yes (7) Transaminitis: - Chronic elevations with H/O Hep C treated with Harvoni in the past Present on Admission?: Yes (8) Cerebrovascular accident (CVA): H/O CVA with paraplegia and R hemiparesis noted - not on antiplatelet therapy Present on Admission?: Yes (9) Endocarditis: - 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 Present on Admission?: No History of Present Illness Chief Complaint: Abdominal Drainage Primary Care Provider: Demarcus Nicholson DO Mr. Grajeda is a 48 y/o male with PMHx of Hirschsprungs Disease S/P RLQ Colostomy , DVT/PE on Coumadin, Pulmonary HTN, CAD, Diastolic CHF, Endocarditis S/P MV Repair, Brain Abscess S/P Resection, H/O Previous IVDU, CVA with R Residual Deficits, CKD Stage III, chronic transaminitis, and Hep C (Cured) who presents to the ED as a referral due to MDR abdominal infection. Patient reports feeling well overall. He reports he has had a previous ostomy in his LLQ which was since removed. He has noted drainage from this site for approx. 1 month. However , over the past 10 days this drainage has increased. Reports it is purulent in nature. He denies pain or significant erythema at this site. He saw his PCP approx. 1 week ago and got the results of his culture. He is growing MDR E. coli and Morganella morganii that is only sensitive to Amikacin, Cefoxitin, Gentamicin, and Tobramycin. He reports he has his caregivers cleaning this site but states they use hydrogen peroxide and does not follow with a food safety field specialist or was given directions by a provider for cleaning this site. There is an oblong shaped area inferior to ostomy site that is beefy red granulation tissue and he is not sure how long that has been there due to body habitus and his caregiver manages this for him. He reports feeling his normal self overall. No fever/chills or erythema of the skin. Allergies Allergy/AdvReac Type Severity Reaction Status Date / Time No Known Allergies Allergy Verified 08/18/18 14:27 Home Medications Home Medications Medication Instructions Recorded Confirmed Type atenolol 25 mg PO DAILY 08/18/18 08/18/18 History colchicine 0.6 mg PO DAILY 08/18/18 08/18/18 History febuxostat 80 mg PO DAILY 08/18/18 08/18/18 History furosemide 40 mg PO DAILY 08/18/18 08/18/18 History gabapentin 600 mg PO TID 08/18/18 08/18/18 History insulin asp prt-insulin aspart 115 unit SUBCUT TID 08/18/18 08/18/18 History [Novolog Mix 70-30FlexPen U-100] insulin glargine 136 unit SUBCUT BID 08/18/18 08/18/18 History magnesium oxide 400 mg PO DAILY 08/18/18 08/18/18 History miconazole nitrate 1 applic TOPICAL QID 08/18/18 08/18/18 History nystatin [Nystop] 1 applic TOPICAL BID PRN 08/18/18 08/18/18 History oxycodone 30 mg PO TID 08/18/18 08/18/18 History pantoprazole 40 mg PO DAILY 08/18/18 08/18/18 History potassium chloride 20 meq PO DAILY 08/18/18 08/18/18 History warfarin 2.5 mg PO 4XWK 08/18/18 08/18/18 History warfarin 5 mg PO 3XWK 08/18/18 08/18/18 History Past Med/Surg History Medical History DM type 2 (diabetes mellitus, type 2) (Chronic) Hepatitis C (Chronic) Diabetic nephropathy (Chronic) Paraplegia (Chronic) Brain abscess CAD (coronary atherosclerotic disease) Cerebrovascular accident (CVA) Diastolic congestive heart failure Endocarditis Hirschsprung's disease History of intravenous drug abuse Pulmonary embolism Pulmonary hypertension Surgical History Hx of CABG (Resolved) S/P cardiac cath (Chronic) S/P colostomy (Chronic) H/O mitral valve repair Family History Other Family history non-contributory Social History Current Living Situation: Parent Other Information That Helps Us Care for You: No Feels Safe at Home: Yes Safety Concerns: Feels Safe At This Time Hx Alcohol Use: No Hx Substance Use: Yes substance use type: former substance user Preferred Language: Hungarian Communication Ability: Effective Fundraising Officer Required: No Review of Systems Constitutional: no fever, no chills and no body aches Eyes: no worsening vision Ear, Nose, Mouth, Throat: no sore throat and no dysphagia Respiratory: no cough and no dyspnea Cardiovascular: no chest pain and no palpitations Gastrointestinal: no abdominal pain, no nausea, no vomiting, no constipation, no diarrhea/loose stools, no blood in stools and no melena Genitourinary (Male): no dysuria Integumentary: + lesions (drainage at site of previous ostomy) Neurologic: + paralysis Physical Exam 2 Vital Signs (Past 24 Hours): Last Vital Signs Temp 36.9 C 08/18/18 13:58 Pulse 80 08/18/18 15:56 Resp 20 08/18/18 15:56 BP 109/68 08/18/18 15:56 Pulse Ox 94 08/18/18 15:56 Constitutional: well developed, well nourished and + obese Eyes: + anicteric sclerae Neck: trachea midline Respiratory: normal respiratory effort, lungs clear to auscultation Cardiovascular: Rate/Rhythm: regular rate and regular rhythm Gastrointestinal (Abdomen): Inspection/Auscultation: normal bowel sounds Percussion/Palpation: abdomen soft; abdomen nontender presence of RLQ ostomy with brown stool present; LLQ site of previous ostomy with purulent drainage and oblong shaped area of granulation tissue that is beefy red Musculoskeletal: Head/Neck/Chest: normocephalic, head atraumatic and neck supple Skin: no rashes, warm and dry (other than mentioned in abdominal section) Neurologic: + focal motor deficit (chronic R residual weakness deficits; paraplegia) Speech / Cognition: + abnormal speech (chronic due to previous CVA/brain abscess) Psychiatric: A+Ox3, euthymic affect Code Status & VTE Plan Code Status FULL RESUSCITATION VTE Prophylaxis Plan VTE Prophylaxis will be ordered: Yes Supervising Physician Co-Signing Physician Notes PA Physician Supervision Note: I interviewed and examined the patient. Discussed with Mony FLAHERTY and agree with findings and plan as documented in the note. Any exceptions or clarifications are listed here: None Patient was independently seen and examined the emergency department. His biggest complaint was a draining mucous fistulous tract on his left lower abdomen. This was cultured as an outpatient by his primary care provider showing ESBL E. coli and Morganella. These both organisms are only sensitive to intravenous antibiotics. The patient however is not had any significant systemic illness. Patient has noted increased drainage from the site. He has had no chest pain pressure shortness of breath nausea vomiting change in bowel habits change in urinary habits. Vital signs are noted his heart is regular his lungs are clear his abdomen is obese bowel sounds are heard there is a 2-3 cm open area which was like a mucous fistula with some clear to yellow drainage and some beefy granulation tissue in it. Patient states he has been cleaning this twice a day with peroxide. Concern for a intracutaneous fistula with multidrug-resistant organisms. The patient be placed on cefoxitin based on sensitivities from an outside hospital and infectious disease consultation be undertaken Documented By: Jesse Castano
[2018-08-18] MEDS ORDERED: ALUMINUM/MAGNESIUM SUSP 30 ML UDC PO PRN (19:49)
[2018-08-18] MEDS ORDERED: POLYETHYLENE (MIRALAX) 17 GM PACK PO PRN (19:49)
[2018-08-18] MEDS ORDERED: CARBOHYDRATES FOR HYPOGLYCEMIA PO PRN (19:49)
[2018-08-18] MEDS ORDERED: MAGNESIUM HYDROXIDE SUSP 30 ML UDC PO PRN (19:49)
[2018-08-18] MEDS ORDERED: ACETAMINOPHEN 325 MG TAB PO PRN (19:49)
[2018-08-18] MEDS ORDERED: DEXTROSE 50% 50 ML SYRINGE IV PRN (19:49)
[2018-08-18] MEDS ORDERED: GLUCAGON FOR INJ 1 MG VIAL SQ PRN (19:49)
[2018-08-18] MEDS ORDERED: GLUCOSE 40% GEL 15 GM TUBE PO PRN (19:49)
[2018-08-18] MEDS ORDERED: ONDANSETRON INJ 2 MG/ML 2 ML VIAL IV PRN (19:49)
[2018-08-18] MEDS ORDERED: NYSTATIN POWDER 15GM BTL EXT PRN (19:49)
[2018-08-18] MEDS ORDERED: GLUCOSE 10 TABS/TUBE PO PRN (19:49)
[2018-08-18] MEDS ORDERED: OXYCODONE HCL IR 30 MG TAB (IMMEDIATE RELEASE) PO SCH (21:00)
[2018-08-18] MEDS: MICONAZOLE NITRATE POWDER 43 GM TOP SCH (21:49)
[2018-08-18] MEDS: GABAPENTIN 600 MG TAB PO SCH (21:49)
[2018-08-18] MEDS: INSULIN ASPART 100 UNITS/ML 3 ML PEN SC SCH (21:52)
[2018-08-18] MEDS: INSULIN GLARGINE SOLOSTAR 100 UNITS/ML 3 ML PEN SC SCH (21:52)
[2018-08-19] MEDS: [UNRECOGNIZED DRUG - OTHER] SCH ×2 (00:34→08:34)
--- NOTE | 2018-08-19 06:59 | Infectious Disease Consult ---
Date of Consultation August 19, 2018 Assessment & Plan (1) Wound infection: can continue IV abx for now, upon d/c can change to omnicef 300mg po bid x 14 days local wound care. History of Present Illness Attending Physician: Jesse Castano MD pt admitted from pcp office with infected abd wound - per h&p cultures grew E. coli and Morganella, sensitive to cefoxitin, placed on IV cefoxitin - tolerating well. Anxious for d/c due to work. denies pain, no f/c. no n/v/d/abd pain. no cp, sob, cough. wound and blood cultures pending, had ct abd overnight , results pending. wbc nml. no draiange from wound on my exam. no surroudning warmth or erythema. Allergies Allergy/AdvReac Type Severity Reaction Status Date / Time No Known Allergies Allergy Verified 08/18/18 14:27 Home Medications Home Medications Medication Instructions Recorded Confirmed Type atenolol 25 mg PO DAILY 08/18/18 08/18/18 History colchicine 0.6 mg PO DAILY 08/18/18 08/18/18 History febuxostat 80 mg PO DAILY 08/18/18 08/18/18 History furosemide 40 mg PO DAILY 08/18/18 08/18/18 History gabapentin 600 mg PO TID 08/18/18 08/18/18 History insulin asp prt-insulin aspart 115 unit SUBCUT TID 08/18/18 08/18/18 History [Novolog Mix 70-30FlexPen U-100] insulin glargine 136 unit SUBCUT BID 08/18/18 08/18/18 History magnesium oxide 400 mg PO DAILY 08/18/18 08/18/18 History miconazole nitrate 1 applic TOPICAL QID 08/18/18 08/18/18 History nystatin [Nystop] 1 applic TOPICAL BID PRN 08/18/18 08/18/18 History oxycodone 30 mg PO TID 08/18/18 08/18/18 History pantoprazole 40 mg PO DAILY 08/18/18 08/18/18 History potassium chloride 20 meq PO DAILY 08/18/18 08/18/18 History warfarin 2.5 mg PO 4XWK 08/18/18 08/18/18 History warfarin 5 mg PO 3XWK 08/18/18 08/18/18 History Patient History Medical History DM type 2 (diabetes mellitus, type 2) (Chronic) Hepatitis C (Chronic) Diabetic nephropathy (Chronic) Paraplegia (Chronic) Brain abscess CAD (coronary atherosclerotic disease) Cerebrovascular accident (CVA) Diastolic congestive heart failure Endocarditis Hirschsprung's disease History of intravenous drug abuse Pulmonary embolism Pulmonary hypertension Surgical History Hx of CABG (Resolved) S/P cardiac cath (Chronic) S/P colostomy (Chronic) H/O mitral valve repair Family History Other Family history non-contributory Social History Current Living Situation: Parent Other Information That Helps Us Care for You: No Feels Safe at Home: Yes Safety Concerns: Feels Safe At This Time Hx Alcohol Use: No Hx Substance Use: Yes substance use type: former substance user Preferred Language: Icelandic Communication Ability: Effective Passenger Brakeman Required: No Review of Systems all remaining ros reviewed and are negative Physical Exam 2 Vital Signs (Past 24 Hours): Last Vital Signs Temp 36.6 C 08/19/18 00:00 Pulse 72 08/19/18 00:00 Resp 18 08/19/18 00:00 BP 104/67 08/19/18 00:00 Pulse Ox 92 08/19/18 00:00 Constitutional: WD/WN, vitals as above Eyes: PERRL, conjunctivae normal, anicteric sclerae ENMT: external ear and nose normal, oropharynx normal Neck: normal visual inspection Respiratory: normal respiratory effort, lungs clear to auscultation Cardiovascular: RRR, no murmur, no edema Gastrointestinal (Abdomen): normal bowel sounds, soft, nontender, no hepatosplenomegaly Musculoskeletal: Head/Neck/Chest: normocephalic and head atraumatic Skin: no rashes, warm and dry llq open wound, unable to express purulent drainage, no bleeding, no warmth, erythema, edema, tenderness Psychiatric: A+Ox3, euthymic affect
--- NOTE | 2018-08-19 07:22 | CT Scan Report ---
ABDOMEN AND PELVIS CT WITH ORAL CONTRAST CT DOSE: 2200.51 mGy.cm HISTORY: Acute generalized abdominal pain . History of prior subtotal colectomy with right lower quad rant ileostomy and left lower quadrant colostomy. fistula tract? - abdominal infection TECHNIQUE: Multiaxial CT images of the abdomen and pelvis were performed following the use of oral co ntrast. A dose lowering technique was utilized adhering to the principles of ALARA. COMPARISON STUDY: CT abdomen and pelvis 02/04/2018. FINDINGS: trace left pleural effusion. Subpleural left greater than right bibasilar opacities appear unchanged suggesting scarring/atelectasis. No pneumatosis or pneumoperitoneum identified. Imaged inferior cardi ac chambers are unremarkable. Prior median sternotomy. Hepatomegaly with hepatic steatosis. Liver otherwise appears unremarkable. Contracted gallbladder. Mi ld splenomegaly. Mild generalized pancreatic atrophy. Adrenal glands are unremarkable. Mild nonspecific bilateral perinephric stranding. There are proximally 2 nonobstructing renal calculi on the right measuring up to 4 mm. 2 nonobstructing calculi are seen on the left measuring up to 1.3 cm. No ureteral calculi. There is unchanged mild dilation noted about the right ureter. Mild wall th ickening with partial distention of the urinary bladder. Aorta and IVC are unremarkable. Mildly enlar ged right femoral lymph node, 1.1 cm, unchanged and likely reactive. No small bowel obstruction. Postoperative changes from prior subtotal colectomy with right lower quad rant ileostomy and left lower quadrant colostomy. Small parastomal hernia about the left lower quadra nt abdomen with a nonobstructed contrast opacified loop of small bowel partially extending into the h ernia. No bowel wall thickening, ascites or mesenteric inflammatory changes. Diastases recti. Bones a ppear intact. Multilevel posterior disc osteophyte complex formation throughout the lumbar spine. Deg enerative changes of the hips with heterotopic ossifications noted about the bilateral femoral acetab ular joints. Mild dextroscoliosis of the lumbar spine. IMPRESSION: 1. No acute intra-abdominal or intrapelvic abnormality identified. 2. Bilateral nephrolithiasis without renal calculi identified. Chronic mild dilation of the right ure ter without obstructing calculus or lesion identified. 3. Hepatosplenomegaly with hepatic steatosis. 4. Prior subtotal colectomy with right lower quadrant ileostomy. No bowel obstruction. 5. Additional findings as above. Electronically signed by: Will Conroy M.D. 08/19/2018 7:21 AM
[2018-08-19 07:34] LABS: Hematocrit (blood only) 46.4 % (42-52); Hemoglobin 15.1 g/dL (14.0-18.0); Mean Corpuscular Hgb Conc 32.5 g/dL (32-36); Mean Corpuscular Volume 96.3 fL (80-100); Mean Platelet Volume 9.8 fL (7.4-10.4); Platelet Count 136 K/uL (130-400); RDW Coefficient of Variation 17.1 % (11.5-14.5); RDW Standard Deviation 60.1 fL (36.4-46.3); Red Blood Count 4.82 M/uL (4.7-6.1); White Blood Count 6.92 K/uL (4.8-10.8)
[2018-08-19 07:39] LABS: Prothrombin Time 19.4 Seconds (9.0-12.0)
[2018-08-19 08:14] LABS: Albumin Level 2.8 gm/dl (3.4-5.0); BUN Creatinine Ratio 15.6 (10-20); Calcium 9.1 mg/dl (8.5-10.1); Creatinine Clr Calc Pharmacy 86.9 ml/min; Est GFR (African American) 63.8; Potassium 3.4 mmol/L (3.5-5.1)
[2018-08-19 08:18] LABS: Albumin Globulin Ratio 0.5 (0.9-2); Bilirubin,Total 1.1 mg/dl (0.1-1); Globulin 5.3 gm/dl (2.5-4.0); Total Protein 8.1 gm/dl (6.4-8.2)
[2018-08-19] MEDS: GABAPENTIN 600 MG TAB PO SCH ×2 (08:38→13:31)
[2018-08-19] MEDS: MICONAZOLE NITRATE POWDER 43 GM TOP SCH ×2 (08:39→12:26)
[2018-08-19] MEDS: OXYCODONE HCL IR 5 MG TAB (IMMEDIATE RELEASE) PO SCH ×2 (08:45→14:13)
[2018-08-19] MEDS: INSULIN GLARGINE SOLOSTAR 100 UNITS/ML 3 ML PEN SC SCH (08:49)
[2018-08-19] MEDS: INSULIN ASPART 100 UNITS/ML 3 ML PEN SC SCH ×2 (08:53→12:24)
[2018-08-19] MEDS ORDERED: MAGNESIUM OXIDE 400 MG TAB PO SCH (09:00)
[2018-08-19] MEDS ORDERED: COLCHICINE 0.6 MG TAB PO SCH (09:00)
[2018-08-19] MEDS ORDERED: POTASSIUM CHLORIDE 20 MEQ TABCR PO SCH (09:00)
[2018-08-19] MEDS ORDERED: FUROSEMIDE 40 MG TAB PO SCH (09:00)
[2018-08-19] MEDS ORDERED: ATENOLOL 25 MG TABLET PO SCH (09:00)
[2018-08-19] MEDS ORDERED: PANTOprazole 40 MG TAB PO SCH (09:00)
--- NOTE | 2018-08-19 15:58 | Discharge Summary ---
Date of Service August 19, 2018 Admission HPI Per Admitting Provider Mr. Grajeda is a 48 y/o male with PMHx of Hirschsprungs Disease S/P RLQ Colostomy , DVT/PE on Coumadin, Pulmonary HTN, CAD, Diastolic CHF, Endocarditis S/P MV Repair, Brain Abscess S/P Resection, H/O Previous IVDU, CVA with R Residual Deficits, CKD Stage III, chronic transaminitis, and Hep C (Cured) who presents to the ED as a referral due to MDR abdominal infection. Patient reports feeling well overall. He reports he has had a previous ostomy in his LLQ which was since removed. He has noted drainage from this site for approx. 1 month. However , over the past 10 days this drainage has increased. Reports it is purulent in nature. He denies pain or significant erythema at this site. He saw his PCP approx. 1 week ago and got the results of his culture. He is growing MDR E. coli and Morganella morganii that is only sensitive to Amikacin, Cefoxitin, Gentamicin, and Tobramycin. He reports he has his caregivers cleaning this site but states they use hydrogen peroxide and does not follow with a allergy and immunology specialist or was given directions by a provider for cleaning this site. There is an oblong shaped area inferior to ostomy site that is beefy red granulation tissue and he is not sure how long that has been there due to body habitus and his caregiver manages this for him. He reports feeling his normal self overall. No fever/chills or erythema of the skin. Principal Diagnosis Abdominal Wound Drainage/Infection Discharge Exam Constitutional well developed, well nourished and + obese Eyes + anicteric sclerae Neck trachea midline Respiratory normal respiratory effort, lungs clear to auscultation Cardiovascular Rate/Rhythm: regular rate and regular rhythm Gastrointestinal (Abdomen) Inspection/Auscultation: normal bowel sounds Percussion/Palpation: abdomen soft; abdomen nontender No evidence of draining at LLQ old ostomy site with red granulated tissue inferior to ostomy site Musculoskeletal Head/Neck/Chest: normocephalic, head atraumatic and neck supple Skin no rashes, warm and dry (other than mentioned in abdominal section) Neurologic + focal motor deficit (chronic R residual weakness deficits; paraplegia) Speech / Cognition: + abnormal speech (chronic due to previous CVA/brain abscess ) Psychiatric A+Ox3, euthymic affect Discharge Data Allergies Allergy/AdvReac Type Severity Reaction Status Date / Time No Known Allergies Allergy Verified 08/18/18 14:27 Consultations 08/18/18 19:49 Consult Infectious Diseases Routine Ordered Studies ABDOMEN AND PELVIS CT WITH ORAL CONTRAST FINDINGS: trace left pleural effusion. Subpleural left greater than right bibasilar opacities appear unchanged suggesting scarring/atelectasis. No pneumatosis or pneumoperitoneum identified. Imaged inferior cardiac chambers are unremarkable. Prior median sternotomy. Hepatomegaly with hepatic steatosis. Liver otherwise appears unremarkable. Contracted gallbladder. Mild splenomegaly. Mild generalized pancreatic atrophy. Adrenal glands are unremarkable. Mild nonspecific bilateral perinephric stranding. There are proximally 2 nonobstructing renal calculi on the right measuring up to 4 mm. 2 nonobstructing calculi are seen on the left measuring up to 1.3 cm. No ureteral calculi. There is unchanged mild dilation noted about the right ureter. Mild wall thickening with partial distention of the urinary bladder. Aorta and IVC are unremarkable. Mildly enlarged right femoral lymph node, 1.1 cm, unchanged and likely reactive. No small bowel obstruction. Postoperative changes from prior subtotal colectomy with right lower quadrant ileostomy and left lower quadrant colostomy. Small parastomal hernia about the left lower quadrant abdomen with a nonobstructed contrast opacified loop of small bowel partially extending into the hernia. No bowel wall thickening, ascites or mesenteric inflammatory changes. Diastases recti. Bones appear intact. Multilevel posterior disc osteophyte complex formation throughout the lumbar spine. Degenerative changes of the hips with heterotopic ossifications noted about the bilateral femoral acetabular joints. Mild dextroscoliosis of the lumbar spine. IMPRESSION: 1. No acute intra-abdominal or intrapelvic abnormality identified. 2. Bilateral nephrolithiasis without renal calculi identified. Chronic mild dilation of the right ureter without obstructing calculus or lesion identified. 3. Hepatosplenomegaly with hepatic steatosis. 4. Prior subtotal colectomy with right lower quadrant ileostomy. No bowel obstruction. 5. Additional findings as above Hospital Course (1) Abdominal infection: - Pt had a previous ostomy site in the LLQ as a child and reports this is chronically open and has small amounts of drainage "for years"; reports increasing drainage x 1 month that is purulent and this has increased even further over the past 10 days; Cx at his PCP reveals MDR E. coli and Morganella morganii that is susceptible to Amikacin, Cefoxitin, Gentamycin, and Tobramycin - he denies fever/chills, pain, or erythema at site - He notes his caregiver cleans this area with hydrogen peroxide and there is some granulation tissue at the inferior border of this previous ostomy site - advised to not use peroxide and to just cleanse gently with warm water and a mild soap (if needed) - may use absorbant dressing intermittently as well - CT Abd/Pelvis with oral contrast to assess for any obvious fistulous tract which could not be seen - patient reports he had enemas instilled to assess for connection with this LLQ area but the enema did not leak through - this could still easily be a fistula as the CT does support a small hernia with contrast filled bowel which may have limited view of a tract - however this may need further evaluated by he GI doctors/or Gen Surg referral likely at a tertiary care facility given the extent of his GI history - Initially treated with Cefoxitin and consulted Infectious Disease who recommends Omnicef 300 mg BID x 14 days for localized infection as he does not exhibit systemic findings currently (2) Hirschsprung's disease: - H/O Subtotal Colectomy with current RLQ ostomy - reports no complications at this time - H/O GI bleed resulting in transfer to [facility] earlier in the year - denies any complications with bleeding at this time and currently back on Warfarin therapy - Hgb stable (3) DM type 2 (diabetes mellitus, type 2): - He reports he takes Lantus 136 units BID and Novolog 115 mg TID with meals and reports good control - Will continue his home dosing - did reduce cover inhospital due to limited caloric intake with meals supplied to prevent hypoglycemia given these significant doses (4) CKD (chronic kidney disease) stage 3, GFR 30-59 ml/min: - Baseline appears to be around 1.4-1.8 - stable (5) Chronic diastolic (congestive) heart failure: - H/O CAD S/P CABG; Pulmonary HTN; R Sided Failure - Does not appear to be in an acute exacerbation at this time - Lasix 40 mg daily; Atenolol 25 mg daily (6) Pulmonary emboli: - H/O DVT/PE on chronic AC - Continue Coumadin - current INR 2.0 (7) Transaminitis: - Chronic elevations with H/O Hep C treated with Harvoni in the past (8) Cerebrovascular accident (CVA): H/O CVA with paraplegia and R hemiparesis noted - not on antiplatelet therapy (9) Endocarditis: - 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 Total Time Total Time Spent Total Time Spent (In Minutes): Greater than 30 minutes Discharge Plan Discharge Items Patient Disposition: Home - Self-Care Reason For Visit: ABDOMINAL INFECTION Discharge Diagnosis: Abdominal Infection Condition: Good Discharge Goals: Decrease discomfort, Improve disease control and Prevent disease Activity: Resume your previous activity Non-emergency contact: Primary Care Provider Call non-emergency contact if: you have any medication questions, your symptoms worsen and you have a fever Diet: Carb Consistent or DM2 Addtl Provider Instructions: Abdominal Infection: - This area in the left lower part of your abdomen is growing an organism called e. coli and morganella morganii that is only sensitive to certain antibiotics. - We did a CAT scan to see if this area is some how connected to your bowel as these bacteria can be in the GI tract. We did not see the contrast moving from outside the bowel towards this area. However there is a small hernia around this area that had contrast in it so maybe this prevented us from seeing this area completely. As well, I know you had testing down by inserting an enema to check this area for connection and it wasn't found. You may need to talk with your GI doctors or maybe have a referral to a surgeon to further evaluate this area. - For now, the infectious disease doctors are recommending to use Cefdinir 300 mg twice a day for a total of 14 days -- You had antibiotics this morning so you will just need to take one pill of the Cefdinir tonight on 08/19 then resume this twice a day on 08/20 until you complete all of the antibiotics - Recommend to stop using hydrogen peroxide on this area as this is actually not recommended to use on wounds, even though people have used this for years. Hydrogen peroxide can actually worsen skin irritation - Recommend to just cleanse gently with warm water and may use some mild soap ( recommend things like Dove that is gentle and unscented). You may use an absorbant dressing to absorb some of the drainage but can leave this area open to air as you want. Diabetes: - Continue your insulin regimen as previously prescribed by your doctor. We did not make any adjustments to this History of Blood Clots: - Continue your warfarin/coumadin as previously prescribed. Your INR (Coumadin) level is 2 and recommend to continue to have this checked as you normally do Prescriptions: New cefdinir 300 mg capsule 300 mg PO BID Qty: 27 RF: 0 Continue furosemide 40 mg Tablet 40 mg PO DAILY RF: 0 gabapentin 600 mg Tablet 600 mg PO TID RF: 0 insulin glargine 100 unit/mL Solution 136 unit SUBCUT BID RF: 0 miconazole nitrate 2 % Powder 1 applic TOPICAL QID RF: 0 atenolol 25 mg Tablet 25 mg PO DAILY RF: 0 pantoprazole 40 mg Tablet,Delayed Release (Dr/Ec) 40 mg PO DAILY RF: 0 warfarin 5 mg Tablet 2.5 mg PO 4XWK RF: 0 warfarin 5 mg Tablet 5 mg PO 3XWK RF: 0 oxycodone 30 mg Tablet 30 mg PO TID RF: 0 nystatin [Nystop] 100,000 unit/gram Powder 1 applic TOPICAL BID PRN (Reason: Itching) RF: 0 colchicine 0.6 mg Tablet 0.6 mg PO DAILY RF: 0 insulin asp prt-insulin aspart [Novolog Mix 70-30FlexPen U-100] 100 unit/mL ( 70-30) Insulin Pen 115 unit SUBCUT TID RF: 0 febuxostat 80 mg Tablet 80 mg PO DAILY RF: 0 magnesium oxide 400 mg Capsule 400 mg PO DAILY RF: 0 potassium chloride 20 mEq Tablet Extended Release 20 meq PO DAILY RF: 0 Visit Report Forms: My [facility] Stand-Alone Forms: [facility] Discharge Orders: Discharge Order (Routine); Ordered 08/19/18 Ordered By: Mony Ventura Admission Data Admit Date/Time: 08/18/18 17:41 Attending Provider: Adeel Molina Admit Provider: Jesse Castano Primary Care Provider: Demarcus Nicholson Other Providers: Deirdre Saeed Service: Medical Other Interventions: Discharge Summary Assessment (RN) Last Done: 08/19/18 13:23 Pending Studies at Discharge: Yes DC Date/Time DO NOT enter until pt leaves facility: 08/19/18 15:54
[2018-08-19] MEDS ORDERED: WARFARIN SOD 5 MG TAB PO SCH (16:00)
[2018-08-20] MEDS ORDERED: WARFARIN SOD 2.5 MG TAB PO SCH (16:00)
== END 2018-08-19 15:54 | disposition home or self-care (01) | DRG 863 ==
LOC: ED 13:54 → 4E 17:41 → SUATTDRO 17:41 → 4E 19:12

== ENCOUNTER 2018-12-18 02:12 | Inpatient (IN) ==
--- OUTSIDE RECORDS SUMMARY | 2018-12-18 02:16 | External Medical Summary | Continuity of Care Document ---
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) Valvular stenosis (424.90) (I38) Gram positive bacterial infection (041.89) (A49.9) Hepatitis C (070.70) (B19.20) Arthritis (716.90) (M19.90) Gross hematuria (599.71) (R31.0) H/O blood clots (V12.51) (Z86.718) Type 2 diabetes mellitus, uncontrolled (250.02) (E11.65) Congestive heart failure (428.0) (I50.9) Epididymitis (604.90) (N45.1) Heart trouble (429.9) (I51.9) Elevated pulse rate (785.0) (R00.0) Arteriosclerosis of coronary artery (414.00) (I25.10) Benign essential hypertension (401.1) (I10) Hyperlipidemia (272.4) (E78.5) Morbid obesity (278.01) (E66.01) H/O aortic root repair (V15.1) (Z98.890) H/O mitral valve repair (V15.1) (Z98.890) Urinary tract infection (599.0) (N39.0) Nephrolithiasis (592.0) (N20.0) Allergies and Adverse Reactions No Known Drug Allergies (Allergy) Medications Gabapentin 600 MG Oral Tablet; TAKE 1 TABLET 3 TIMES DAILY. Refills: 0 Toujeo SoloStar 300 UNIT/ML Subcutaneous Solution Pen-injector; INJECT 90 UNIT Twice daily Refills: 0 Colcrys 0.6 MG Oral Tablet; TAKE 1 TABLET DAILY DIRECTED. Refills: 0 Klor-Con M20 20 MEQ Oral Tablet Extended Release; TAKE 1 TAB LET DAILY. Refills: 0 Multiple Vitamin TABS; TAKE 1 TABLET DAILY. Refills: 0 Lasix 40 MG Oral Tablet; TAKE 1 TABLET DAILY. Refills: 0 Atenolol 25 MG Oral Tablet; TAKE 1 TABLET DAILY. Refills: 0 Magnesium Oxide 420 MG TABS; TAKE 1 TABLET DAILY. Refills: 0 Ascorbic Acid 500 MG Oral Tablet; TAKE 1 TABLET DAILY. Refills: 0 NovoLOG 100 UNIT/ML Subcutaneous Solution; INJECT SUBCUTANEO USLY DIRECTED. Refills: 0 oxyCODONE HCl - 15 MG Oral Tablet; TAKE 1 TO 2 TABLETS EVERY 6 HOURS NEEDED FOR PAIN. Refills: 0 Warfarin Sodium 5 MG Oral Tablet; TAKE DIRECTED. Refills: 0 Procedures X-ray 1 view Abdomen (KUB) Date: 18-Oct-2018 History of CABG Status: Completed History of Partial Colectomy Status: Com pleted History of Mitral Valve Replacement Stat us: Completed History of Knee Surgery Status: Complete d Immunizations Immunizations not documented Family History Father Family history of cardiac disorder (V17.49) (Z82.49) Status: Active Family history of diabetes mellitus (V18.0) (Z83.3) Status: Active Family history of prostate cancer (V16.42) (Z80.42) Status: Active Mother Family history of skin cancer (V16.8) (Z80.8) Status: Active Family history of hypertension (V17.49) (Z82.49) Status: Act omero Social History - Smoking Status Never smoker Plan of Treatment Planned Encounters Appointment; Jeronimo Cadet M.D. Start: 18-Apr-2019 14:00 Request Planned Observations Planned Goals not documented Results No Known Results Results not documented Vital Signs 09-Oct-2018 16:44 other 1.36 Comments: CREATININE other 1143 Comments: B12 commen t Encounters Appointment; Jeronimo Cadet M.D. 18-Oct-2018 14:00 Encounter Diagnosis: Problem not documented Appointment; Deirdre Saeed DO 18-Sep-2018 11:30 Encounter Diagnosis: Problem not documented Appointment; Xiomara Tanner PA-C 25-Apr-2018 16:00 Encounter Diagnosis: Problem not documented Appointment; Jeronimo Cadet M.D. 12-Apr-2018 14:00 Encounter Diagnosis: Problem not documented Appointment; Jeronimo Moore M.D. 05-Dec-2017 14:00 Encounter Diagnosis: Problem not documented Appointment; Echo/Stress, Echo/Stress 05-Dec-2017 13:00 Encounter Diagnosis: Problem not documented Appointment; Jeronimo Cadet M.D. 18-Oct-2017 14:10 Encounter Diagnosis: Problem not documented Appointment; Jeronimo Moore M.D. 22-May-2017 12:30 Encounter Diagnosis: Problem not documented Appointment; Jeronimo Cadet M.D. 09-Jan-2017 11:30 Encounter Diagnosis: Problem not documented Appointment; Urology, Room 7 09-Jan-2017 11:20 Encounter Diagnosis: Problem not documented Appointment; Jeronimo Cadet M.D. 18-Apr-2019 14:00 Encounter Diagnosis: Problem not documented
[2018-12-18] MEDS ORDERED: SODIUM CHLORIDE 0.9% 1000ML 1,000 ML IV SCH (02:45)
[2018-12-18 03:02] LABS: Basophils # (auto) 0.03 K/uL (0-0.2); Basophils % (auto) 0.2 %; Eosinophils # (auto) 0.06 K/uL (0-0.5); Eosinophils % (auto) 0.4 %; Hematocrit (blood only) 45.6 % (42-52); Hemoglobin 16.6 g/dL (14.0-18.0); Immature Granulocytes # (auto) 0.06 K/uL (0.00-0.02); Immature Granulocytes % (auto) 0.4 %; Lymphocytes # (auto) 0.59 K/uL (1.2-3.4); Lymphocytes % (auto) 3.5 %; Mean Corpuscular Hgb Conc 36.4 g/dL (32-36); Mean Corpuscular Volume 100.2 fL (80-100); Mean Platelet Volume 9.7 fL (7.4-10.4); Monocytes # (auto) 0.59 K/uL (0.11-0.59); Monocytes % (auto) 3.5 %; Neutrophils # (auto) 15.77 K/uL (1.4-6.5); Platelet Count 155 K/uL (130-400); RDW Coefficient of Variation 14.8 % (11.5-14.5); RDW Standard Deviation 53.6 fL (36.4-46.3); Red Blood Count 4.55 M/uL (4.7-6.1)
[2018-12-18] MEDS ORDERED: PIPERACILL/TAZOBAC CONSULT ACTIVE PRN ×2 (03:08→06:20)
[2018-12-18] MEDS ORDERED: VANCOMYCIN HCL 2,750 MG in SODIUM CHLORIDE 0.9% 500 ML IV ONE (03:08)
[2018-12-18] MEDS ORDERED: VANCOMYCIN CONSULT ACTIVE PRN ×2 (03:08→06:20)
[2018-12-18] MEDS ORDERED: PIPERACILLIN/TAZOBACTAM 4.5 GM/120 ML BAG IV ONE (03:08)
[2018-12-18] MEDS ORDERED: SODIUM CHLORIDE 0.9% 1000ML 1,000 ML IV ONE (03:08)
[2018-12-18 03:12] LABS: INR 3.3 (0.9-1.1); Partial Thromboplastin Ratio 1.6; Partial Thromboplastin Time 42.5 Seconds (21.0-31.0); Prothrombin Time 31.1 Seconds (9.0-12.0)
[2018-12-18 03:22] LABS: Appearance Urine Slightly Cloudy (Clear); Bilirubin Urine Negative (Negative); Blood Urine 2+ (Negative); Color Urine Yellow; Glucose Urine UA Negative (Negative); Ketones Urine Trace (Negative); Leukocyte Esterase Urine 1+ (Negative); Nitrite Urine Negative (Negative); Protein Urine 3+ (Negative); Urobilinogen Urine Negative (Negative)
[2018-12-18 03:24] LABS: Alanine Aminotransferase 95 U/L (12-78); Aspartate Aminotransferase 104 U/L (15-37); BUN Creatinine Ratio 13.7 (10-20); Blood Urea Nitrogen 22 mg/dl (7-18); Calcium 9.7 mg/dl (8.5-10.1); Carbon Dioxide 31 mmol/L (21-32); Chloride 101 mmol/L (98-107); Creatinine Clr Calc Pharmacy 84.2 ml/min; Est GFR (African American) 57.7; Est GFR (Non-African American) 49.8; Glucose 164 mg/dl (70-99); Magnesium 1.7 mg/dl (1.8-2.4); Potassium 3.8 mmol/L (3.5-5.1); Sodium 136 mmol/L (136-145)
[2018-12-18 03:29] LABS: Amorphous Sediment Urine Present (None Prsent); Bacteria Urine Negative (Negative); WBC Urine >30 /hpf (0-5)
[2018-12-18 03:29] LABS: Albumin Globulin Ratio 0.5 (0.9-2); Alkaline Phosphatase 188 U/L (45-117); Bilirubin,Total 1.6 mg/dl (0.2-1); Globulin 5.7 gm/dl (2.5-4.0); NT Pro B Type Natriuretic Pept 208 pg/ml (0-450); Total Protein 8.7 gm/dl (6.4-8.2); Troponin I < 0.015 ng/ml (0-0.045)
--- NOTE | 2018-12-18 04:34 | History & Physical Report ---
Date of Service December 18, 2018 Assessment & Plan (1) Cerebrovascular accident (CVA): (2) Transaminitis: (3) CKD (chronic kidney disease) stage 3, GFR 30-59 ml/min: (4) Chronic diastolic (congestive) heart failure: (5) Hirschsprung's disease: (6) DM type 2 (diabetes mellitus, type 2): (7) UTI (urinary tract infection): (8) S/P colostomy: (9) Supratherapeutic INR: (10) Hx of CABG: (11) Bilateral lower leg cellulitis: 48y/o M with complex medical history including endocarditis, mitral valve repair, diastolic CHF, pulmonary HTN, DM II, CAD, PE on Coumadin, CVA with residual R weakness, Hirschsprung's disease leading to colostomy placement, paraplegia, and Hep C presented with concern of fever, chills, elevated HR and hypoxia tonight. Found to have worsening erythema of bilateral lower extremities concerning for sepsis in the setting of cellulitis in the ED and possible UTI. Sepsis in the setting of bilateral LE cellulitis vs. UTI -febrile to 38.9, tachycardic to 110s, hypertensive -WBC 17.1, lactate elevated to 2.8 -Procal 1.3 with normal CXR -BCx2 pending -UA positive and UCx pending -Received 2L IVF NS in the ED, vanc and zosyn x1 -Continued vanc and zosyn -IVFs 125cc/hr -Cooling blanket for hyperthermia JUAREZ in the setting of CKD -BUN/Cr 22/1.6 - Baseline Cr around 1.4 -Received 2L NS bolus and on IVFs NS at 125cc/hr -Continue to monitor BMP Acute worsening of existing LFT abnormalities in the setting of Hep C -TB 1.6, AST 104, ALT 95, alk phos 188 -Ammonia 34 -Continue home lactulose Hx of DVT/PE -Supratherapeutic INR 3.3 -Hold warfarin today -Resume when INR in therapeutic range Diastolic CHF/CAD/Pulm HTN/Hx of endocaritis with MV repair -ECHO 2016: EF 60-65% -Due to body habitus difficult to assess volume status -Continue home atenolol and lasix DM II -Started on SSI -Continue home lantus Neuropathy/chronic pain -Continue home gabapentin and oxycodone Hx of Gout -Continue home Uloric and colchicine Hypomagnesemia -Mag 1.7 -Repleted with 1g Mag DVT prop: len Guerrero held as INR supratherapeutic - resume when improves Code: Full Dispo: PCU (12) Paraplegia: (13) Gout: (14) Diabetic nephropathy: (15) Hepatitis C: (16) Pulmonary emboli: History of Present Illness Chief Complaint: Fever and chills Primary Care Provider: Demarcus Nicholson, DO 48y/o M with complex medical history including endocarditis, mitral valve repair, diastolic CHF, pulmonary HTN, DM II, CAD, PE on Coumadin, CVA with residual R weakness, Hirschsprung's disease leading to colostomy placement, paraplegia, and Hep C presented with concern of fever, chills, elevated HR and hypoxia tonight. Reports this evening around 9pm starting shivering and developed a fever of 103.5. HR was 138 and he was hypoxic to 88% so he came here. Initially had some sob which has now resolved. Pt has chronic diarrhea as on lactulose. For the past 3 months he reports increased urinary freq, hesitancy and end stream dysuria. Denies any headache, dizziness, cp, abdominal pain, n/v, constipation, hematuria. Found to have worsening erythema of bilateral lower extremities concerning for sepsis in the setting of cellulitis in the ED. Pt febrile to 38.9, tachycardic to 110s. Lactate elevated to 2.8. WBC 17.1. Procal 1.3 with normal CXR. BCx2 pending. Labs also concerning for JUAREZ in the setting of CKD and acute worsening of existing LFT abnormalities in the setting of Hep C. INR elevated to 3.3. UA positive. UCx pending. 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 He perforated the anterior leaflet of his mitral valve in 2015 and required additional repair - the valve was not replaced 4) CAD - during mitral repair surgery he had a cath and then an LAD bypass 5) Intraoperative CVA 2003 leading to R hemiplegia 6) DVT/PE 7) Hirschsprung's disease 8) HTN 9) DM II 10) Morbid obesity 11) Hep C - cured with Harvoni 12)Paraplegia Surgical Hx: 1) LAD CABG 2) Cath with stents to RCA and LAD 3) Colostomy 2013 4) Mitral valve repair x 2 - 2003, 2015 Allergies Allergy/AdvReac Type Severity Reaction Status Date / Time No Known Allergies Allergy Verified 10/08/18 14:47 Home Medications Home Medications Medication Instructions Recorded Confirmed Type atenolol 25 mg PO DAILY 08/18/18 12/18/18 History colchicine 0.6 mg PO DAILY 08/18/18 12/18/18 History furosemide 40 mg PO DAILY 08/18/18 12/18/18 History gabapentin 600 mg PO TID 08/18/18 12/18/18 History magnesium oxide 400 mg PO DAILY 08/18/18 12/18/18 History oxycodone 30 mg PO TID 08/18/18 12/18/18 History pantoprazole 40 mg PO DAILY 08/18/18 12/18/18 History potassium chloride 20 meq PO DAILY 08/18/18 12/18/18 History ferrous sulfate 325 mg PO BID 09/12/18 12/18/18 History insulin aspart U-100 [Novolog 120 units SUBCUT QAM 09/12/18 12/18/18 History Flexpen U-100 Insulin] insulin glargine U-300 conc 138 units SUBCUT BID 09/12/18 12/18/18 History [Toujeo SoloStar U-300 Insulin] insulin aspart U-100 [Novolog 122 unit SUBCUT QDL 10/08/18 12/18/18 History Flexpen U-100 Insulin] insulin aspart U-100 [Novolog 124 unit SUBCUT QPM 10/08/18 12/18/18 History Flexpen U-100 Insulin] insulin aspart U-100 [Novolog 1 sliding scale dose SUBCUT UD 10/08/18 12/18/18 History U-100 Insulin aspart] clotrimazole 1 applic TOPICAL BID 12/18/18 12/18/18 History clotrimazole-betamethasone 1 applic TOPICAL BID 12/18/18 12/18/18 History febuxostat [Uloric] 80 mg PO DAILY 12/18/18 12/18/18 History ketoconazole 1 applic TOPICAL BID 12/18/18 12/18/18 History lactulose 30 ml PO BID 12/18/18 12/18/18 History warfarin 5 mg PO DAILY 12/18/18 12/18/18 History Past Med/Surg History Medical History DM type 2 (diabetes mellitus, type 2) (Chronic) Hepatitis C (Chronic) Diabetic nephropathy (Chronic) Paraplegia (Chronic) Brain abscess CAD (coronary atherosclerotic disease) Cerebrovascular accident (CVA) Diastolic congestive heart failure Endocarditis Hirschsprung's disease History of intravenous drug abuse Pulmonary embolism Pulmonary hypertension Surgical History Hx of CABG (Resolved) S/P cardiac cath (Chronic) S/P colostomy (Chronic) H/O mitral valve repair Family History Other Family history non-contributory Social History Preferred Language: Macedonian Communication Ability: Effective 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 Beliefs That Will Affect Care: None marital status: Current Living Situation: Parent Other Information That Helps Us Care for You: No Feels Safe at Home: Yes Safety Concerns: Feels Safe At This Time Smoking Status: Former smoker Do You Dip or Chew Tobacco: No Smoking End Date: 2001 Second Hand Exposure: No Tobacco Cessation Education Requested by Patient: No Hx Alcohol Use: No Hx Substance Use: Yes substance use type: former substance user Review of Systems Review of Systems: As per HPI Physical Exam Physical Exam: General: Pt appears flushed, obese Neuro: Alert and oriented x 4 CV: RRR, no m/r/g PULM: CTAB, equal breath sounds bilaterally ABDOMEN: +BS, obese abdomen, non-tender to palpation in all quadrants, colostomy bag with moderate formed drainage, multiple surgical scars noted LE: bilateral LE edema, bright red erythema and warmth extending to knees, no TTP Results & Data Vital Signs (Past 12 Hours) Vital Signs Temp Pulse Resp BP Pulse Ox 12/18/18 03:00 117 H 12 129/50 L 97 12/18/18 02:31 38.4 C H 128 H 24 137/74 88 L Laboratory Results Abnormal lab results 12/18/18 12/18/18 12/18/18 Range/Units 02:38 02:38 02:38 WBC 17.10 H (4.8-10.8) K/uL RBC 4.55 L (4.7-6.1) M/uL MCV 100.2 H (80-100) fL MCH 36.5 H (25-34) pg MCHC 36.4 H (32-36) g/dL RDW Std Deviation 53.6 H (36.4-46.3) fL RDW Coeff of Lorenzo 14.8 H (11.5-14.5) % Immature Gran # (Auto) 0.06 H (0.00-0.02) K/uL Neut # (Auto) 15.77 H (1.4-6.5) K/uL Lymph # (Auto) 0.59 L (1.2-3.4) K/uL PT (9.0-12.0) Seconds INR (0.9-1.1) APTT (21.0-31.0) Seconds BUN 22 H (7-18) mg/dl Creatinine 1.63 H (0.6-1.4) mg/dl Glucose 164 H (70-99) mg/dl Lactate (0.4-2.0) mmol/L Magnesium 1.7 L (1.8-2.4) mg/dl Total Bilirubin 1.6 H (0.2-1) mg/dl AST 104 H (15-37) U/L ALT 95 H (12-78) U/L Alkaline Phosphatase 188 H (45-117) U/L Ammonia 34.0 H (11-32) umol/L Total Protein 8.7 H (6.4-8.2) gm/dl Albumin 3.0 L (3.4-5.0) gm/dl Globulin 5.7 H (2.5-4.0) gm/dl Albumin/Globulin Ratio 0.5 L (0.9-2) Procalcitonin (0-0.5) ng/ml Urine Protein (Negative) Urine Ketones (Negative) Urine Blood (Negative) Ur Leukocyte Esterase (Negative) Urine RBC (0-4) /hpf Urine WBC (0-5) /hpf Ur Epithelial Cells (0-5) /lpf Amorphous Sediment (None Prsent) Urine Yeast (None Prsent) 12/18/18 12/18/18 12/18/18 Range/Units 02:38 02:38 02:54 WBC (4.8-10.8) K/uL RBC (4.7-6.1) M/uL MCV (80-100) fL MCH (25-34) pg MCHC (32-36) g/dL RDW Std Deviation (36.4-46.3) fL RDW Coeff of Lorenzo (11.5-14.5) % Immature Gran # (Auto) (0.00-0.02) K/uL Neut # (Auto) (1.4-6.5) K/uL Lymph # (Auto) (1.2-3.4) K/uL PT 31.1 H (9.0-12.0) Seconds INR 3.3 H (0.9-1.1) APTT 42.5 H (21.0-31.0) Seconds BUN (7-18) mg/dl Creatinine (0.6-1.4) mg/dl Glucose (70-99) mg/dl Lactate 2.8 H* (0.4-2.0) mmol/L Magnesium (1.8-2.4) mg/dl Total Bilirubin (0.2-1) mg/dl AST (15-37) U/L ALT (12-78) U/L Alkaline Phosphatase (45-117) U/L Ammonia (11-32) umol/L Total Protein (6.4-8.2) gm/dl Albumin (3.4-5.0) gm/dl Globulin (2.5-4.0) gm/dl Albumin/Globulin Ratio (0.9-2) Procalcitonin 1.32 H (0-0.5) ng/ml Urine Protein (Negative) Urine Ketones (Negative) Urine Blood (Negative) Ur Leukocyte Esterase (Negative) Urine RBC (0-4) /hpf Urine WBC (0-5) /hpf Ur Epithelial Cells (0-5) /lpf Amorphous Sediment (None Prsent) Urine Yeast (None Prsent) 12/18/18 Range/Units 02:54 WBC (4.8-10.8) K/uL RBC (4.7-6.1) M/uL MCV (80-100) fL MCH (25-34) pg MCHC (32-36) g/dL RDW Std Deviation (36.4-46.3) fL RDW Coeff of Lorenzo (11.5-14.5) % Immature Gran # (Auto) (0.00-0.02) K/uL Neut # (Auto) (1.4-6.5) K/uL Lymph # (Auto) (1.2-3.4) K/uL PT (9.0-12.0) Seconds INR (0.9-1.1) APTT (21.0-31.0) Seconds BUN (7-18) mg/dl Creatinine (0.6-1.4) mg/dl Glucose (70-99) mg/dl Lactate (0.4-2.0) mmol/L Magnesium (1.8-2.4) mg/dl Total Bilirubin (0.2-1) mg/dl AST (15-37) U/L ALT (12-78) U/L Alkaline Phosphatase (45-117) U/L Ammonia (11-32) umol/L Total Protein (6.4-8.2) gm/dl Albumin (3.4-5.0) gm/dl Globulin (2.5-4.0) gm/dl Albumin/Globulin Ratio (0.9-2) Procalcitonin (0-0.5) ng/ml Urine Protein 3+ H (Negative) Urine Ketones Trace H (Negative) Urine Blood 2+ H (Negative) Ur Leukocyte Esterase 1+ H (Negative) Urine RBC 5-10 H (0-4) /hpf Urine WBC >30 H (0-5) /hpf Ur Epithelial Cells 10-20 H (0-5) /lpf Amorphous Sediment Present H (None Prsent) Urine Yeast Budding w/ Hyphae H (None Prsent) Code Status & VTE Plan Code Status Full VTE Prophylaxis Plan VTE Prophylaxis will be ordered: Yes Supervising Physician Co-Signing Physician Notes Attending addendum: I have physically seen this patient, have supervised the medical residents activities, and agree with the H&P unless as otherwise noted. Assessment and Plan: Bilateral lower extremity cellulitis/sepsis- Empiric vancomycin IV and Zosyn IV. Follow blood cultures. Suspect the patient will need a prolonged course of antibiotics, not uncommonly 7 to 10 days of IV treatment. Consult infectious disease. Patient has been seen by Dr. Saeed in the past. Consult wound care. Order comfort care mattress. Follow serial CBC with differential, BMP and magnesium level. NSS 125 mL's per hour. Remainder of orders and notations as noted. Resident Activity Tracking Resident Involvement: Resident Care Provided Care Provided: Adult Hospital Medicine
[2018-12-18] MEDS ORDERED: VANCOMYCIN HCL 1,000 MG in SODIUM CHLORIDE 0.9% 250 ML IV SCH (06:20)
[2018-12-18] MEDS ORDERED: ACETAMINOPHEN 325 MG TAB PO PRN (06:20)
--- NOTE | 2018-12-18 06:48 | XRay Report ---
XR chest 1V portable HISTORY: 48 years-old Male Sob. Fever. Acute shortness breath with fever COMPARISON: Chest radiograph 10/27/2018 TECHNIQUE: Portable AP view the chest FINDINGS: Cardiac silhouette is enlarged, unchanged. The patient is slightly rotated to the right. Prior median sternotomy. Mild pulmonary vascular congestion without pneumothorax, pleural effusion or focal airsp symone consolidation. Minimal left basilar opacities appear unchanged suggestive of probable atelectasis . Bones of the chest appear grossly intact. IMPRESSION: 1. Cardiomegaly with mild pulmonary vascular congestion. 2. Minimal left infrahilar and left basilar opacities redemonstrated suggestive of probable atelectas is. The above report was generated using voice recognition software. It may contain grammatical, syntax o r spelling errors. Electronically signed by: Will Conroy M.D. 12/18/2018 6:46 AM
[2018-12-18] MEDS ORDERED: MAGNESIUM SULFATE / D5W 1 GM/100 ML BAG IV ONE (07:00)
[2018-12-18] MEDS: INSULIN ASPART 100 UNITS/ML 3 ML PEN SC SCH ×4 (08:06→21:18)
[2018-12-18] MEDS: LACTULOSE SYRUP 30 GM/45 ML UDP PO SCH ×2 (08:09→21:10)
[2018-12-18] MEDS: FEBUXOSTAT 40 MG TABLET PO SCH (08:10)
[2018-12-18] MEDS: ATENOLOL 25 MG TABLET PO SCH (08:10)
[2018-12-18] MEDS: GABAPENTIN 600 MG TAB PO SCH ×3 (08:10→21:11)
[2018-12-18] MEDS: MAGNESIUM OXIDE 400 MG TAB PO SCH (08:10)
[2018-12-18] MEDS: FERROUS SULFATE 325 MG TAB PO SCH ×2 (08:10→21:11)
[2018-12-18] MEDS: PANTOprazole 40 MG TAB PO SCH (08:10)
[2018-12-18] MEDS: COLCHICINE 0.6 MG TAB PO SCH (08:11)
[2018-12-18] MEDS: POTASSIUM CHLORIDE 20 MEQ TABCR PO SCH (08:11)
[2018-12-18] MEDS: KETOCONAZOLE 2% CR 15 GM TUBE EXT SCH ×2 (08:16→21:11)
[2018-12-18] MEDS: CLOTRIMAZOLE/BETAMETHASONE CR 15 GM TUBE EXT SCH ×2 (08:17→21:19)
[2018-12-18] MEDS: CLOTRIMAZOLE 1% CR 15 GM TUBE TOP SCH ×2 (08:19→21:11)
[2018-12-18] MEDS: SODIUM CHLORIDE 0.9% 1000ML 1,000 ML IV SCH ×2 (08:19→17:07)
--- NOTE | 2018-12-18 08:58 | Pharmacy Report ---
Pharmacy Abx Dose Short Note - Date of Service December 18, 2018 - Assessment & Plan Assessment * 48 year old M admitted for sepsis, bilateral lower ext cellulitis, possible UTI * Patient has a h/o IVDA, endocarditis, CVA, brain abscess, paraplegia, hep C and diastolic HF * He does have multiple risk factors for drug resistant organism (abx use in last 90 days, recent hospitalization, DM, hepatitis) * e has had morganella and e coli cultured from abd wound in the past, it is also reported he has a h/o MRSA and MDR proteus mirabilis. * Baseline SCr 1.4-1.5; current SCr mildly elevated 1.63 Plan Vancomycin * Pharmacy has dosed vanco for this patient in the past, however last time we obtained levels was 02/2016. Upon review of that admission, it appears that this patient's vancomycin dosing was excessive based upon population p'kinetic estimates likely due to his body habitus. A Vancomycin dose of 1900mg IV Q 10 hrs that admission led to a trough level in the mid-30's and renal fxn may have been slightly better that admission. * Load: 2750mg (~18mg/kg) IV x 1 given in the ED * Maint dose: 1500mg (~9.5mg/kg) IV Q 12 hrs (based upon previous admission data) * Goal trough level for sepsis : 15 to 20 mcg/mL; may reduce goal to 10-20mcg/mL once stabilized and source of infxn SSTI * Trough level ordered for: 12/19/18; with the 3rd maint dose (drawn somewhat early to ensure we are not exceeding our targets) Zosyn * eCrCl > 20cc/min; BMI 52.4; 4.5gm IV Q 8 hrs indicated Pharmacy will continue to follow and will adjust dose/frequency as necessary. Thank you.
[2018-12-18] MEDS ORDERED: INSULIN GLARGINE 100 UNIT/ML VIAL SQ SCH ×3 (09:00→21:00)
[2018-12-18] MEDS ORDERED: FUROSEMIDE 40 MG TAB PO SCH (09:00)
[2018-12-18] MEDS: PIPERACILLIN/TAZOBACTAM 4.5 GM in DEXTROSE 5% 100 ML IV SCH ×2 (09:25→17:07)
[2018-12-18] MEDS: OXYCODONE HCL IR 30 MG TAB (IMMEDIATE RELEASE) PO SCH ×3 (10:32→21:10)
--- NOTE | 2018-12-18 10:44 | Infectious Disease Consult ---
Date of Consultation December 18, 2018 Assessment & Plan (1) Sepsis: 48-year-old male with complicated medical history with diabetes, heart failure, chronic kidney disease, now presents with sepsis with bilateral lower extremity cellulitis. Current treatment with vancomycin and Zosyn appropriate pending further culture results. Length of IV antibiotics will be determined by culture results and clinical response. Will follow. (2) Bilateral lower leg cellulitis: History of Present Illness Reason for Consultation: Cellulitis Attending Physician: Adeel Molina DO History of Present Illness 48-year-old male with complicated medical history including coronary artery disease, type 2 diabetes mellitus, stage III chronic kidney disease, prior CVA with right-sided hemiparesis, hepatitis C, mitral valve repair, endocarditis, who came to the emergency department with 1 day history of fever of 103.6 associated with chills along with increasing redness and swelling of both lower extremities. He was found to have evidence of sepsis with cellulitis, and has been started empirically on vancomycin and Zosyn. Cultures are all pending. Allergies Allergy/AdvReac Type Severity Reaction Status Date / Time No Known Allergies Allergy Verified 10/08/18 14:47 Home Medications Home Medications Medication Instructions Recorded Confirmed Type atenolol 25 mg PO DAILY 08/18/18 12/18/18 History colchicine 0.6 mg PO DAILY 08/18/18 12/18/18 History furosemide 40 mg PO DAILY 08/18/18 12/18/18 History gabapentin 600 mg PO TID 08/18/18 12/18/18 History magnesium oxide 400 mg PO DAILY 08/18/18 12/18/18 History oxycodone 30 mg PO TID 08/18/18 12/18/18 History pantoprazole 40 mg PO DAILY 08/18/18 12/18/18 History potassium chloride 20 meq PO DAILY 08/18/18 12/18/18 History ferrous sulfate 325 mg PO BID 09/12/18 12/18/18 History insulin aspart U-100 [Novolog 120 units SUBCUT QAM 09/12/18 12/18/18 History Flexpen U-100 Insulin] insulin glargine U-300 conc 138 units SUBCUT BID 09/12/18 12/18/18 History [Toujeo SoloStar U-300 Insulin] insulin aspart U-100 [Novolog 122 unit SUBCUT QDL 10/08/18 12/18/18 History Flexpen U-100 Insulin] insulin aspart U-100 [Novolog 124 unit SUBCUT QPM 10/08/18 12/18/18 History Flexpen U-100 Insulin] insulin aspart U-100 [Novolog 1 sliding scale dose SUBCUT UD 10/08/18 12/18/18 History U-100 Insulin aspart] clotrimazole 1 applic TOPICAL BID 12/18/18 12/18/18 History clotrimazole-betamethasone 1 applic TOPICAL BID 12/18/18 12/18/18 History febuxostat [Uloric] 80 mg PO DAILY 12/18/18 12/18/18 History ketoconazole 1 applic TOPICAL BID 12/18/18 12/18/18 History lactulose 30 ml PO BID 12/18/18 12/18/18 History warfarin 5 mg PO DAILY 12/18/18 12/18/18 History Patient History Medical History DM type 2 (diabetes mellitus, type 2) (Chronic) Hepatitis C (Chronic) Diabetic nephropathy (Chronic) Paraplegia (Chronic) Brain abscess CAD (coronary atherosclerotic disease) Cerebrovascular accident (CVA) Diastolic congestive heart failure Endocarditis Hirschsprung's disease History of intravenous drug abuse Pulmonary embolism Pulmonary hypertension Surgical History Hx of CABG (Resolved) S/P cardiac cath (Chronic) S/P colostomy (Chronic) H/O mitral valve repair Family History Other Family history non-contributory Social History Preferred Language: Czech Communication Ability: Effective 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 Beliefs That Will Affect Care: None marital status: Current Living Situation: Parent Other Information That Helps Us Care for You: No Feels Safe at Home: Yes Safety Concerns: Feels Safe At This Time Smoking Status: Former smoker Do You Dip or Chew Tobacco: No Smoking End Date: 2001 Second Hand Exposure: No Tobacco Cessation Education Requested by Patient: No Hx Alcohol Use: No Hx Substance Use: Yes substance use type: former substance user Review of Systems Review of Systems: All systems reviewed & are unremarkable except as noted in HPI & below Physical Exam Constitutional: WD/WN, vitals as above + obese and comfortable; no acute distress Eyes: PERRL, conjunctivae normal, anicteric sclerae ENMT: external ear and nose normal, oropharynx normal Neck: trachea midline, no thyromegaly neck nontender Respiratory: normal respiratory effort, lungs clear to auscultation normal percussion; does not use accessory muscles Cardiovascular: Rate/Rhythm: regular rate and regular rhythm Heart Sounds: normal S1 and normal S2; no gallop, no murmur and no cardiac rub Vessels: normal peripheral pulses; no JVD Gastrointestinal (Abdomen): normal bowel sounds, soft, nontender, no hepatosplenomegaly Musculoskeletal: Head/Neck/Chest: normocephalic, head atraumatic and neck supple Spine: thoracic spine normal to inspection and lumbar spine normal to inspection; no cervical spinal tenderness Skin: normal turgor and + erythema (Both lower extremities below knees); no rashes Neurologic: moves all extremities and awake Psychiatric: A+Ox3, euthymic affect Orientation: cooperative Lymphatic: no cervical or axillary lymphadenopathy no inguinal lymphadenopathy Results & Data Vital Signs (Past 12 Hours) Vital Signs Temp Pulse Pulse Pulse Resp BP BP 12/18/18 07:06 37.7 C H 107 H 27 H 12/18/18 06:46 38.6 C H 115 H 26 H 137/89 12/18/18 04:53 38.9 C H 12/18/18 04:30 115 H 25 H 146/95 H 12/18/18 04:00 117 H 29 H 138/70 12/18/18 03:30 122 H 31 H 129/76 12/18/18 03:00 117 H 12 129/50 L 12/18/18 02:31 38.4 C H 128 H 24 137/74 BP Pulse Ox 12/18/18 07:06 140/74 97 12/18/18 06:46 12/18/18 04:53 12/18/18 04:30 97 12/18/18 04:00 96 12/18/18 03:30 94 12/18/18 03:00 97 12/18/18 02:31 88 L Laboratory Results Short CBC 12/18/18 Range/Units 02:38 WBC 17.10 H (4.8-10.8) K/uL Hgb 16.6 (14.0-18.0) g/dL Hct 45.6 (42-52) % Plt Count 155 (130-400) K/uL BMP 12/18/18 02:38 Sodium 136 Potassium 3.8 Chloride 101 Carbon Dioxide 31 BUN 22 H Creatinine 1.63 H Glucose 164 H Calcium 9.7 Cardiac Enzymes 12/18/18 Range/Units 02:38 Troponin I < 0.015 (0-0.045) ng/ml Liver Function 12/18/18 Range/Units 02:38 Total Bilirubin 1.6 H (0.2-1) mg/dl AST 104 H (15-37) U/L ALT 95 H (12-78) U/L Alkaline Phosphatase 188 H (45-117) U/L Albumin 3.0 L (3.4-5.0) gm/dl Urine 12/18/18 Range/Units 02:54 Urine Color Yellow Urine Appearance Slightly Cloudy (Clear) Urine pH 6.0 (4.5-7.5) Ur Specific [place] 1.020 (1.000-1.030) Urine Protein 3+ H (Negative) Urine Glucose (UA) Negative (Negative) cc: ~ XR chest 1V portable HISTORY: 48 years-old Male Sob. Fever. Acute shortness breath with fever COMPARISON: Chest radiograph 10/27/2018 TECHNIQUE: Portable AP view the chest FINDINGS: Cardiac silhouette is enlarged, unchanged. The patient is slightly rotated to the right. Prior median sternotomy. Mild pulmonary vascular congestion without pneumothorax, pleural effusion or focal airspace consolidation. Minimal left basilar opacities appear unchanged suggestive of probable atelectasis. Bones of the chest appear grossly intact. IMPRESSION: 1. Cardiomegaly with mild pulmonary vascular congestion. 2. Minimal left infrahilar and left basilar opacities redemonstrated suggestive of probable atelectasis. The above report was generated using voice recognition software. It may contain grammatical, syntax or spelling errors. Electronically signed by: Will Conroy M.D. 12/18/2018 6:46 AM
[2018-12-18] MEDS ORDERED: VANCOMYCIN HCL 1,750 MG in SODIUM CHLORIDE 0.9% 500 ML IV SCH (14:00)
[2018-12-18] MEDS: VANCOMYCIN HCL 1,500 MG in SODIUM CHLORIDE 0.9% 500 ML IV SCH (14:28)
[2018-12-18 14:52] LABS: Basophils # (auto) 0.01 K/uL (0-0.2); Basophils % (auto) 0.1 %; Eosinophils # (auto) 0.01 K/uL (0-0.5); Eosinophils % (auto) 0.1 %; Hematocrit (blood only) 45.8 % (42-52); Hemoglobin 15.5 g/dL (14.0-18.0); Immature Granulocytes # (auto) 0.03 K/uL (0.00-0.02); Immature Granulocytes % (auto) 0.3 %; Lymphocytes # (auto) 0.69 K/uL (1.2-3.4); Lymphocytes % (auto) 5.8 %; Mean Corpuscular Hgb Conc 33.8 g/dL (32-36); Mean Corpuscular Volume 102.2 fL (80-100); Mean Platelet Volume 9.5 fL (7.4-10.4); Monocytes % (auto) 3.4 %; Neutrophils # (auto) 10.78 K/uL (1.4-6.5); Neutrophils % (auto) 90.3 %; Platelet Count 123 K/uL (130-400); RDW Coefficient of Variation 15.2 % (11.5-14.5); RDW Standard Deviation 56.8 fL (36.4-46.3); Red Blood Count 4.48 M/uL (4.7-6.1); White Blood Count 11.92 K/uL (4.8-10.8)
[2018-12-18 15:32] LABS: Albumin Globulin Ratio 0.5 (0.9-2); Albumin Level 2.6 gm/dl (3.4-5.0); BUN Creatinine Ratio 12.6 (10-20); Bilirubin,Total 2.9 mg/dl (0.2-1); Calcium 8.9 mg/dl (8.5-10.1); Creatinine Clr Calc Pharmacy 73.9 ml/min; Est GFR (African American) 50.2; Est GFR (Non-African American) 43.3; Globulin 5.1 gm/dl (2.5-4.0); Total Protein 7.7 gm/dl (6.4-8.2)
[2018-12-18 15:33] LABS: Potassium 4.4 mmol/L (3.5-5.1)
[2018-12-18] MEDS: INSULIN GLARGINE 100 UNIT/ML VIAL SQ SCH (21:13)
[2018-12-19] MEDS: PIPERACILLIN/TAZOBACTAM 4.5 GM in DEXTROSE 5% 100 ML IV SCH ×3 (01:31→17:16)
[2018-12-19] MEDS: SODIUM CHLORIDE 0.9% 1000ML 1,000 ML IV SCH ×4 (01:31→21:15)
[2018-12-19] MEDS: VANCOMYCIN HCL 1,500 MG in SODIUM CHLORIDE 0.9% 500 ML IV SCH (01:31)
--- NOTE | 2018-12-19 01:41 | Emergency Department Note ---
History of Present Illness General Chief complaint: Illness Stated complaint: FEVER/NAUSEA/CHILLS Time Seen by Provider: 12/18/18 02:24 History of Present Illness Maximum Pain Intensity: 5 This is a 48-year-old male presenting to the emergency department for evaluation of fever and chills over the past 1 to 2 days. Patient has an extensive and complex past medical history including heart disease, kidney disease, hepatitis C, diabetes, colostomy placement, CABG, and sepsis. The patient was feeling unwell this evening and used his at home pulse ox at home, which revealed an elevated pulse rate and oxygen saturation of 88%. The patient checked his temperature and states it was 103 F. The patient now presents to the emergency department via ambulance for evaluation. He does feel slightly short of breath. He has not taken anything [id number] for his symptoms. He rates his discomfort a 5/10. Home Medications Home Medications Medication Instructions Recorded Confirmed Type atenolol 25 mg PO DAILY 08/18/18 12/18/18 History colchicine 0.6 mg PO DAILY 08/18/18 12/18/18 History furosemide 40 mg PO DAILY 08/18/18 12/18/18 History gabapentin 600 mg PO TID 08/18/18 12/18/18 History magnesium oxide 400 mg PO DAILY 08/18/18 12/18/18 History oxycodone 30 mg PO TID 08/18/18 12/18/18 History pantoprazole 40 mg PO DAILY 08/18/18 12/18/18 History potassium chloride 20 meq PO DAILY 08/18/18 12/18/18 History ferrous sulfate 325 mg PO BID 09/12/18 12/18/18 History insulin aspart U-100 [Novolog 120 units SUBCUT QAM 09/12/18 12/18/18 History Flexpen U-100 Insulin] insulin glargine U-300 conc 138 units SUBCUT BID 09/12/18 12/18/18 History [Toujeo SoloStar U-300 Insulin] insulin aspart U-100 [Novolog 122 unit SUBCUT QDL 10/08/18 12/18/18 History Flexpen U-100 Insulin] insulin aspart U-100 [Novolog 124 unit SUBCUT QPM 10/08/18 12/18/18 History Flexpen U-100 Insulin] insulin aspart U-100 [Novolog 1 sliding scale dose SUBCUT UD 10/08/18 12/18/18 History U-100 Insulin aspart] clotrimazole 1 applic TOPICAL BID 12/18/18 12/18/18 History clotrimazole-betamethasone 1 applic TOPICAL BID 12/18/18 12/18/18 History febuxostat [Uloric] 80 mg PO DAILY 12/18/18 12/18/18 History ketoconazole 1 applic TOPICAL BID 12/18/18 12/18/18 History lactulose 30 ml PO BID 12/18/18 12/18/18 History warfarin 5 mg PO DAILY 12/18/18 12/18/18 History Allergies Allergy/AdvReac Type Severity Reaction Status Date / Time No Known Allergies Allergy Verified 10/08/18 14:47 Past Med/Surg History Medical History DM type 2 (diabetes mellitus, type 2) (Chronic) Hepatitis C (Chronic) Diabetic nephropathy (Chronic) Paraplegia (Chronic) Brain abscess CAD (coronary atherosclerotic disease) Cerebrovascular accident (CVA) Diastolic congestive heart failure Endocarditis Hirschsprung's disease History of intravenous drug abuse Pulmonary embolism Pulmonary hypertension Surgical History Hx of CABG (Resolved) S/P cardiac cath (Chronic) S/P colostomy (Chronic) H/O mitral valve repair Family History Other Family history non-contributory Social History Preferred Language: [place] Communication Ability: Effective Technician Telecommunication Systems Required: No Beliefs That Will Affect Care: None marital status: Current Living Situation: Parent Other Information That Helps Us Care for You: No Feels Safe at Home: Yes Safety Concerns: Feels Safe At This Time Smoking Status: Former smoker Do You Dip or Chew Tobacco: No Smoking End Date: 2001 Second Hand Exposure: No Tobacco Cessation Education Requested by Patient: No Hx Alcohol Use: No Hx Substance Use: Yes substance use type: former substance user Review of Systems A total of 10 systems reviewed and were otherwise negative Physical Exam Vital Signs Vital Signs - 24 hr 12/18/18 02:31 12/18/18 03:00 12/18/18 03:30 Temperature 38.4 C H Temperature Source Oral Sepsis Recent Fever Within 48 Hours Yes Sepsis New/Unexplained Change in Mental Status No Sepsis Action Taken by Nursing Adv Provider Notified Pulse Rate 128 H 117 H 122 H Pulse Rate [Left Apical] Pulse Rate [Left Finger] Pulse Rate from SpO2 Sensor 117 H 122 H Pulse Rhythm Regular Pulse Rhythm [Left Apical] Pulse Strength Normal Pulse Strength [Left Apical] Respiratory Rate 24 12 31 H Respiratory Effort / Characteristics Non-Labored Respiratory Depth Normal Respiratory Pattern Regular Blood Pressure 137/74 129/50 L 129/76 Blood Pressure [Left Arm] Blood Pressure [Right Arm] Blood Pressure Mean 95 76 93 Blood Pressure Mean [Left Arm] Blood Pressure Mean [Right Arm] Blood Pressure Position Lying Blood Pressure Position [Right Arm] Pulse Oximetry 88 L 97 94 Oxygen Delivery Method Room Air Nasal Cannula Oxygen Flow Rate 2 Fraction of Inspired Oxygen 12/18/18 04:00 12/18/18 04:30 12/18/18 04:53 Temperature 38.9 C H Temperature Source Oral Sepsis Recent Fever Within 48 Hours Sepsis New/Unexplained Change in Mental Status Sepsis Action Taken by Nursing Pulse Rate 117 H 115 H Pulse Rate [Left Apical] Pulse Rate [Left Finger] Pulse Rate from SpO2 Sensor 117 H 115 H Pulse Rhythm Pulse Rhythm [Left Apical] Pulse Strength Pulse Strength [Left Apical] Respiratory Rate 29 H 25 H Respiratory Effort / Characteristics Respiratory Depth Respiratory Pattern Blood Pressure 138/70 146/95 H Blood Pressure [Left Arm] Blood Pressure [Right Arm] Blood Pressure Mean 92 112 Blood Pressure Mean [Left Arm] Blood Pressure Mean [Right Arm] Blood Pressure Position Blood Pressure Position [Right Arm] Pulse Oximetry 96 97 Oxygen Delivery Method Nasal Cannula Nasal Cannula Oxygen Flow Rate 2 2 Fraction of Inspired Oxygen 12/18/18 06:00 12/18/18 06:46 12/18/18 07:06 Temperature 38.6 C H 37.7 C H Temperature Source Rectal Oral Sepsis Recent Fever Within 48 Hours Sepsis New/Unexplained Change in Mental Status Sepsis Action Taken by Nursing Pulse Rate Pulse Rate [Left Apical] 115 H Pulse Rate [Left Finger] 107 H Pulse Rate from SpO2 Sensor Pulse Rhythm Pulse Rhythm [Left Apical] Regular Pulse Strength Pulse Strength [Left Apical] Normal Respiratory Rate 26 H 27 H Respiratory Effort / Characteristics Labored Spontaneous SOB on Exertion Respiratory Depth Normal Normal Respiratory Pattern Regular Regular Tachypnea Blood Pressure Blood Pressure [Left Arm] 137/89 Blood Pressure [Right Arm] 140/74 Blood Pressure Mean Blood Pressure Mean [Left Arm] 105 Blood Pressure Mean [Right Arm] 96 Blood Pressure Position Blood Pressure Position [Right Arm] Lying Pulse Oximetry 97 Oxygen Delivery Method Nasal Cannula Nasal Cannula Oxygen Flow Rate 2 2 Fraction of Inspired Oxygen 12/18/18 08:00 12/18/18 11:47 12/18/18 16:19 Temperature 37.1 C 37.7 C H Temperature Source Oral Oral Sepsis Recent Fever Within 48 Hours Sepsis New/Unexplained Change in Mental Status Sepsis Action Taken by Nursing Pulse Rate Pulse Rate [Left Apical] Pulse Rate [Left Finger] 88 83 Pulse Rate from SpO2 Sensor Pulse Rhythm Pulse Rhythm [Left Apical] Pulse Strength Pulse Strength [Left Apical] Respiratory Rate 22 18 Respiratory Effort / Characteristics Non-Labored Spontaneous Respiratory Depth Normal Respiratory Pattern Blood Pressure Blood Pressure [Left Arm] Blood Pressure [Right Arm] 142/73 H 158/90 H Blood Pressure Mean Blood Pressure Mean [Left Arm] Blood Pressure Mean [Right Arm] 96 112 Blood Pressure Position Blood Pressure Position [Right Arm] Lying Lying Pulse Oximetry 97 94 Oxygen Delivery Method Nasal Cannula Nasal Cannula Room Air Oxygen Flow Rate 2 1 Fraction of Inspired Oxygen 12/18/18 19:15 12/19/18 00:13 12/19/18 00:33 Temperature 37.1 C 37.8 C H Temperature Source Oral Oral Sepsis Recent Fever Within 48 Hours Sepsis New/Unexplained Change in Mental Status Sepsis Action Taken by Nursing Pulse Rate 82 Pulse Rate [Left Apical] Pulse Rate [Left Finger] 84 94 H Pulse Rate from SpO2 Sensor Pulse Rhythm Pulse Rhythm [Left Apical] Pulse Strength Pulse Strength [Left Apical] Respiratory Rate 19 22 18 Respiratory Effort / Characteristics Non-Labored Respiratory Depth Normal Normal Respiratory Pattern Blood Pressure Blood Pressure [Left Arm] Blood Pressure [Right Arm] 173/103 H 118/67 Blood Pressure Mean Blood Pressure Mean [Left Arm] Blood Pressure Mean [Right Arm] 126 84 Blood Pressure Position Blood Pressure Position [Right Arm] Semi-fowlers Lying Pulse Oximetry 94 93 96 Oxygen Delivery Method Room Air Room Air Oxygen Flow Rate Fraction of Inspired Oxygen 21 VITALS: Vitals are noted on the nurse's note and reviewed by myself. Vital signs with fever and tachycardia GENERAL: Chronically ill-appearing male who is cooperative with examination HEART: Regular rate and rhythm without murmurs gallops or rubs. LUNGS: Clear to auscultation bilaterally without wheezes, rales or rhonchi. No retractions or accessory muscle use. ABDOMEN: Positive normal bowel sounds x 4. Soft, nontender, without masses or organomegaly. There is an open wound appreciated on the left lower abdomen that appears chronic and slowly healing. No drainage from this area. Colostomy bag in place. Multiple old scars noted. MUSCULOSKELETAL: Bilateral lower extremity erythema is noted concern for bilateral cellulitis. NEURO: Patient was alert and oriented to person place and time. SKIN: The skin was without rashes, erythema, edema, or bruising. Course Administered Medications Atenolol (Tenormin) 25 mg PO DAILY CLAUDIA Stop: 01/17/19 08:59 Last Admin: 12/18/18 08:10 Dose: 25 mg Documented by: [id number] Betamethasone/Clotrimazole (Lotrisone 1/0.5%) 1 appln EXT BID CLAUDIA Stop: 01/17/19 08:59 Last Admin: 12/18/18 21:19 Dose: 1 appln Documented by: [id number] Admin: 12/18/18 08:17 Dose: 1 appln Documented by: [id number] Clotrimazole (Lotrimin 1%) 1 appln TOP BID CLAUDIA Stop: 01/17/19 08:59 Last Admin: 12/18/18 21:11 Dose: 1 appln Documented by: [id number] Admin: 12/18/18 08:19 Dose: 1 appln Documented by: [id number] Colchicine (Colcrys) 0.6 mg PO DAILY CLAUDIA Stop: 01/17/19 08:59 Last Admin: 12/18/18 08:11 Dose: 0.6 mg Documented by: [id number] Febuxostat (Uloric) 80 mg PO DAILY CLAUDIA Stop: 01/17/19 08:59 Last Admin: 12/18/18 08:10 Dose: 80 mg Documented by: [id number] Ferrous Sulfate (Feosol) 325 mg PO BID CLAUDIA Stop: 01/17/19 08:59 Last Admin: 12/18/18 21:11 Dose: 325 mg Documented by: [id number] Admin: 12/18/18 08:10 Dose: 325 mg Documented by: [id number] Furosemide (Lasix) 40 mg PO DAILY CLAUDIA Stop: 01/17/19 08:59 Last Admin: 12/18/18 08:09 Dose: 40 mg Documented by: [id number] Gabapentin (Neurontin) 600 mg PO TID CLAUDIA Stop: 01/17/19 08:59 Last Admin: 12/18/18 21:11 Dose: 600 mg Documented by: [id number] Admin: 12/18/18 14:28 Dose: 600 mg Documented by: [id number] Admin: 12/18/18 08:10 Dose: 600 mg Documented by: [id number] Sodium Chloride (Nss 1000ml) 1,000 mls @ 125 mls/hr IV .Q8H CLAUDIA Stop: 01/17/19 06:19 Last Admin: 12/19/18 01:31 Dose: 125 mls/hr Documented by: [id number] Infusion: 12/19/18 01:07 Dose: 125 mls/hr Documented by: [id number] Admin: 12/18/18 17:07 Dose: 125 mls/hr Documented by: [id number] Infusion: 12/18/18 16:19 Dose: 125 mls/hr Documented by: [id number] Admin: 12/18/18 08:19 Dose: 125 mls/hr Documented by: [id number] Piperacillin Sod/Tazobactam (Sod 4.5 gm/ Dextrose) 120 mls @ 30 mls/hr IV Q8H CLAUDIA; Protocol Stop: 12/28/18 09:59 Last Admin: 12/19/18 01:31 Dose: 30 mls/hr Documented by: [id number] Infusion: 12/18/18 21:07 Dose: 30 mls/hr Documented by: [id number] Admin: 12/18/18 17:07 Dose: 30 mls/hr Documented by: [id number] Infusion: 12/18/18 13:25 Dose: 0 mls/hr Documented by: [id number] Admin: 12/18/18 09:25 Dose: 30 mls/hr Documented by: [id number] Vancomycin HCl 1,500 mg/ (Sodium Chloride) 530 mls @ 200 mls/hr IV Q12H CLAUDIA Stop: 12/28/18 13:59 Last Admin: 12/19/18 01:31 Dose: 200 mls/hr Documented by: [id number] Infusion: 12/18/18 17:08 Dose: 0 mls/hr Documented by: [id number] Admin: 12/18/18 14:28 Dose: 200 mls/hr Documented by: [id number] Insulin Aspart (Novolog Flexpen) 0 units SC ACHS CLAUDIA Stop: 01/17/19 07:29 Last Admin: 12/18/18 21:18 Dose: 5 units Documented by: [id number] Cosigned by: [id number] Admin: 12/18/18 17:03 Dose: 3 units Documented by: [id number] Cosigned by: [id number] Admin: 12/18/18 12:29 Dose: 4 units Documented by: [id number] Cosigned by: [id number] Admin: 12/18/18 08:06 Dose: 7 units Documented by: [id number] Cosigned by: [id number] Insulin Glargine (Lantus) 138 units SQ BID CLAUDIA Stop: 01/17/19 20:59 Last Admin: 12/18/18 21:13 Dose: 138 units Documented by: [id number] Cosigned by: [id number] Ketoconazole (Nizoral 2%) 1 appln EXT BID CLAUDIA Stop: 12/28/18 08:59 Last Admin: 12/18/18 21:11 Dose: 1 appln Documented by: [id number] Admin: 12/18/18 08:16 Dose: 1 appln Documented by: [id number] Lactulose (Chronulac) 30 gm PO BID CLAUDIA Stop: 01/17/19 08:59 Last Admin: 12/18/18 21:10 Dose: 30 gm Documented by: [id number] Admin: 12/18/18 08:09 Dose: 30 gm Documented by: [id number] Magnesium Oxide (Mag-Ox) 400 mg PO DAILY CLAUDIA Stop: 01/17/19 08:59 Last Admin: 12/18/18 08:10 Dose: 400 mg Documented by: [id number] Oxycodone HCl (Roxicodone Immediate Rel) 30 mg PO TID CLAUDIA Stop: 01/01/19 08:59 Last Admin: 12/18/18 21:10 Dose: 30 mg Documented by: [id number] Admin: 12/18/18 14:32 Dose: 30 mg Documented by: [id number] Admin: 12/18/18 10:32 Dose: Not Given Documented by: [id number] Pantoprazole Sodium (Protonix) 40 mg PO DAILY CLAUDIA Stop: 01/17/19 08:59 Last Admin: 12/18/18 08:10 Dose: 40 mg Documented by: [id number] Potassium Chloride (Klor-Con M20) 20 meq PO DAILY CLAUDIA Stop: 01/17/19 08:59 Last Admin: 12/18/18 08:11 Dose: 20 meq Documented by: [id number] Discontinued Medications Sodium Chloride (Nss 1000ml) 1,000 mls @ 999 mls/hr IV .Q1H1M CLAUDIA Stop: 12/18/18 03:45 Last Infusion: 12/18/18 04:50 Dose: 0 mls/hr Documented by: [id number] Admin: 12/18/18 03:29 Dose: 999 mls/hr Documented by: [id number] Piperacillin Sod/Tazobactam Sod (Zosyn) 4.5 gm in 120 mls @ 240 mls/hr IV NOW ONE Stop: 12/18/18 03:37 Last Infusion: 12/18/18 03:58 Dose: 0 mls/hr Documented by: [id number] Admin: 12/18/18 03:28 Dose: 240 mls/hr Documented by: [id number] Sodium Chloride (Nss 1000ml) 1,000 mls @ 999 mls/hr IV .Q1H1M ONE Stop: 12/18/18 04:08 Last Infusion: 12/18/18 04:50 Dose: 0 mls/hr Documented by: [id number] Admin: 12/18/18 03:28 Dose: 999 mls/hr Documented by: [id number] Vancomycin HCl 2,750 mg/ (Sodium Chloride) 555 mls @ 200 mls/hr IV NOW ONE Stop: 12/18/18 05:54 Last Infusion: 12/18/18 07:00 Dose: 0 mls/hr Documented by: [id number] Admin: 12/18/18 03:43 Dose: 200 mls/hr Documented by: [id number] Magnesium Sulfate/Dextrose (Magnesium Sulfate / D5w) 1 gm in 100 mls @ 100 mls/hr IV ONE ONE Stop: 12/18/18 07:59 Last Infusion: 12/18/18 09:05 Dose: 0 mls/hr Documented by: [id number] Admin: 12/18/18 08:04 Dose: 100 mls/hr Documented by: [id number] Insulin Glargine (Lantus) 110 units SQ TODAY@0900 [facility] Stop: 12/18/18 09:01 Last Admin: 12/18/18 09:26 Dose: 110 units Documented by: [id number] Cosigned by: [id number] Medical Decision Making Differential Diagnosis Differential diagnosis: Etiologies such as viral syndrome, otitis, pharyngitis, pneumonia, influenza, meningitis, urinary tract infection, septic arthritis, soft tissue infectious process, intra-abdominal process, sepsis, bacteremia, as well as others were entertained. Laboratory Data Result diagrams: 12/18/18 14:31 12/18/18 14:31 Lab Results 12/18/18 12/18/18 12/18/18 Range/Units 02:38 02:38 02:38 WBC 17.10 H (4.8-10.8) K/uL RBC 4.55 L (4.7-6.1) M/uL Hgb 16.6 (14.0-18.0) g/dL Hct 45.6 (42-52) % MCV 100.2 H (80-100) fL MCH 36.5 H (25-34) pg MCHC 36.4 H (32-36) g/dL RDW Std Deviation 53.6 H (36.4-46.3) fL RDW Coeff of Lorenzo 14.8 H (11.5-14.5) % Plt Count 155 (130-400) K/uL MPV 9.7 (7.4-10.4) fL Immature Gran % (Auto) 0.4 % Neut % (Auto) 92.0 % Lymph % (Auto) 3.5 % Angelina % (Auto) 3.5 % Eos % (Auto) 0.4 % Baso % (Auto) 0.2 % Immature Gran # (Auto) 0.06 H (0.00-0.02) K/uL Neut # (Auto) 15.77 H (1.4-6.5) K/uL Lymph # (Auto) 0.59 L (1.2-3.4) K/uL Angelina # (Auto) 0.59 (0.11-0.59) K/uL Eos # (Auto) 0.06 (0-0.5) K/uL Baso # (Auto) 0.03 (0-0.2) K/uL PT (9.0-12.0) Seconds INR (0.9-1.1) APTT (21.0-31.0) Seconds PTT Ratio Sodium 136 (136-145) mmol/L Potassium 3.8 (3.5-5.1) mmol/L Chloride 101 (98-107) mmol/L Carbon Dioxide 31 (21-32) mmol/L Anion Gap 4.0 (3-11) BUN 22 H (7-18) mg/dl Creatinine 1.63 H (0.6-1.4) mg/dl Est Cr Clr Drug Dosing 84.2 ml/min Est GFR ( Amer) 57.7 Est GFR (Non-Af Amer) 49.8 BUN/Creatinine Ratio 13.7 (10-20) Glucose 164 H (70-99) mg/dl POC Glucose (70-99) Lactate (0.4-2.0) mmol/L Calcium 9.7 (8.5-10.1) mg/dl Magnesium 1.7 L (1.8-2.4) mg/dl Total Bilirubin 1.6 H (0.2-1) mg/dl AST 104 H (15-37) U/L ALT 95 H (12-78) U/L Alkaline Phosphatase 188 H (45-117) U/L Ammonia 34.0 H (11-32) umol/L Troponin I < 0.015 (0-0.045) ng/ml NT-Pro-B Natriuret Pep 208 (0-450) pg/ml Total Protein 8.7 H (6.4-8.2) gm/dl Albumin 3.0 L (3.4-5.0) gm/dl Globulin 5.7 H (2.5-4.0) gm/dl Albumin/Globulin Ratio 0.5 L (0.9-2) Procalcitonin (0-0.5) ng/ml Urine Color Urine Appearance (Clear) Urine pH (4.5-7.5) Ur Specific Mounds (1.000-1.030) Urine Protein (Negative) Urine Glucose (UA) (Negative) Urine Ketones (Negative) Urine Blood (Negative) Urine Nitrite (Negative) Urine Bilirubin (Negative) Urine Urobilinogen (Negative) Ur Leukocyte Esterase (Negative) Urine RBC (0-4) /hpf Urine WBC (0-5) /hpf Ur Epithelial Cells (0-5) /lpf Amorphous Sediment (None Prsent) Urine Bacteria (Negative) Urine Yeast (None Prsent) Influenza Type A Ag (Neg) Influenza Type B Ag (Neg) 12/18/18 12/18/18 12/18/18 Range/Units 02:38 02:38 02:54 WBC (4.8-10.8) K/uL RBC (4.7-6.1) M/uL Hgb (14.0-18.0) g/dL Hct (42-52) % MCV (80-100) fL MCH (25-34) pg MCHC (32-36) g/dL RDW Std Deviation (36.4-46.3) fL RDW Coeff of Lorenzo (11.5-14.5) % Plt Count (130-400) K/uL MPV (7.4-10.4) fL Immature Gran % (Auto) % Neut % (Auto) % Lymph % (Auto) % Angelina % (Auto) % Eos % (Auto) % Baso % (Auto) % Immature Gran # (Auto) (0.00-0.02) K/uL Neut # (Auto) (1.4-6.5) K/uL Lymph # (Auto) (1.2-3.4) K/uL Angelina # (Auto) (0.11-0.59) K/uL Eos # (Auto) (0-0.5) K/uL Baso # (Auto) (0-0.2) K/uL PT 31.1 H (9.0-12.0) Seconds INR 3.3 H (0.9-1.1) APTT 42.5 H (21.0-31.0) Seconds PTT Ratio 1.6 Sodium (136-145) mmol/L Potassium (3.5-5.1) mmol/L Chloride (98-107) mmol/L Carbon Dioxide (21-32) mmol/L Anion Gap (3-11) BUN (7-18) mg/dl Creatinine (0.6-1.4) mg/dl Est Cr Clr Drug Dosing ml/min Est GFR ( Amer) Est GFR (Non-Af Amer) BUN/Creatinine Ratio (10-20) Glucose (70-99) mg/dl POC Glucose (70-99) Lactate 2.8 H* (0.4-2.0) mmol/L Calcium (8.5-10.1) mg/dl Magnesium (1.8-2.4) mg/dl Total Bilirubin (0.2-1) mg/dl AST (15-37) U/L ALT (12-78) U/L Alkaline Phosphatase (45-117) U/L Ammonia (11-32) umol/L Troponin I (0-0.045) ng/ml NT-Pro-B Natriuret Pep (0-450) pg/ml Total Protein (6.4-8.2) gm/dl Albumin (3.4-5.0) gm/dl Globulin (2.5-4.0) gm/dl Albumin/Globulin Ratio (0.9-2) Procalcitonin 1.32 H (0-0.5) ng/ml Urine Color Urine Appearance (Clear) Urine pH (4.5-7.5) Ur Specific Mounds (1.000-1.030) Urine Protein (Negative) Urine Glucose (UA) (Negative) Urine Ketones (Negative) Urine Blood (Negative) Urine Nitrite (Negative) Urine Bilirubin (Negative) Urine Urobilinogen (Negative) Ur Leukocyte Esterase (Negative) Urine RBC (0-4) /hpf Urine WBC (0-5) /hpf Ur Epithelial Cells (0-5) /lpf Amorphous Sediment (None Prsent) Urine Bacteria (Negative) Urine Yeast (None Prsent) Influenza Type A Ag (Neg) Influenza Type B Ag (Neg) 12/18/18 12/18/18 12/18/18 Range/Units 02:54 02:54 07:36 WBC (4.8-10.8) K/uL RBC (4.7-6.1) M/uL Hgb (14.0-18.0) g/dL Hct (42-52) % MCV (80-100) fL MCH (25-34) pg MCHC (32-36) g/dL RDW Std Deviation (36.4-46.3) fL RDW Coeff of Lorenzo (11.5-14.5) % Plt Count (130-400) K/uL MPV (7.4-10.4) fL Immature Gran % (Auto) % Neut % (Auto) % Lymph % (Auto) % Angelina % (Auto) % Eos % (Auto) % Baso % (Auto) % Immature Gran # (Auto) (0.00-0.02) K/uL Neut # (Auto) (1.4-6.5) K/uL Lymph # (Auto) (1.2-3.4) K/uL Angelina # (Auto) (0.11-0.59) K/uL Eos # (Auto) (0-0.5) K/uL Baso # (Auto) (0-0.2) K/uL PT (9.0-12.0) Seconds INR (0.9-1.1) APTT (21.0-31.0) Seconds PTT Ratio Sodium (136-145) mmol/L Potassium (3.5-5.1) mmol/L Chloride (98-107) mmol/L Carbon Dioxide (21-32) mmol/L Anion Gap (3-11) BUN (7-18) mg/dl Creatinine (0.6-1.4) mg/dl Est Cr Clr Drug Dosing ml/min Est GFR ( Amer) Est GFR (Non-Af Amer) BUN/Creatinine Ratio (10-20) Glucose (70-99) mg/dl POC Glucose 152 H (70-99) Lactate (0.4-2.0) mmol/L Calcium (8.5-10.1) mg/dl Magnesium (1.8-2.4) mg/dl Total Bilirubin (0.2-1) mg/dl AST (15-37) U/L ALT (12-78) U/L Alkaline Phosphatase (45-117) U/L Ammonia (11-32) umol/L Troponin I (0-0.045) ng/ml NT-Pro-B Natriuret Pep (0-450) pg/ml Total Protein (6.4-8.2) gm/dl Albumin (3.4-5.0) gm/dl Globulin (2.5-4.0) gm/dl Albumin/Globulin Ratio (0.9-2) Procalcitonin (0-0.5) ng/ml Urine Color Yellow Urine Appearance Slightly Cloudy (Clear) Urine pH 6.0 (4.5-7.5) Ur Specific [place] 1.020 (1.000-1.030) Urine Protein 3+ H (Negative) Urine Glucose (UA) Negative (Negative) Urine Ketones Trace H (Negative) Urine Blood 2+ H (Negative) Urine Nitrite Negative (Negative) Urine Bilirubin Negative (Negative) Urine Urobilinogen Negative (Negative) Ur Leukocyte Esterase 1+ H (Negative) Urine RBC 5-10 H (0-4) /hpf Urine WBC >30 H (0-5) /hpf Ur Epithelial Cells 10-20 H (0-5) /lpf Amorphous Sediment Present H (None Prsent) Urine Bacteria Negative (Negative) Urine Yeast Budding w/ Hyphae H (None Prsent) Influenza Type A Ag Neg for Influ A (Neg) Influenza Type B Ag Neg for Influ B (Neg) 12/18/18 12/18/18 12/18/18 Range/Units 11:15 14:31 14:31 WBC 11.92 H (4.8-10.8) K/uL RBC 4.48 L (4.7-6.1) M/uL Hgb 15.5 (14.0-18.0) g/dL Hct 45.8 (42-52) % MCV 102.2 H (80-100) fL MCH 34.6 H (25-34) pg MCHC 33.8 (32-36) g/dL RDW Std Deviation 56.8 H (36.4-46.3) fL RDW Coeff of Lorenzo 15.2 H (11.5-14.5) % Plt Count 123 L (130-400) K/uL MPV 9.5 (7.4-10.4) fL Immature Gran % (Auto) 0.3 % Neut % (Auto) 90.3 % Lymph % (Auto) 5.8 % Angelina % (Auto) 3.4 % Eos % (Auto) 0.1 % Baso % (Auto) 0.1 % Immature Gran # (Auto) 0.03 H (0.00-0.02) K/uL Neut # (Auto) 10.78 H (1.4-6.5) K/uL Lymph # (Auto) 0.69 L (1.2-3.4) K/uL Angelina # (Auto) 0.40 (0.11-0.59) K/uL Eos # (Auto) 0.01 (0-0.5) K/uL Baso # (Auto) 0.01 (0-0.2) K/uL PT (9.0-12.0) Seconds INR (0.9-1.1) APTT (21.0-31.0) Seconds PTT Ratio Sodium 136 (136-145) mmol/L Potassium 4.4 D (3.5-5.1) mmol/L Chloride 102 (98-107) mmol/L Carbon Dioxide 29 (21-32) mmol/L Anion Gap 5.0 (3-11) BUN 23 H (7-18) mg/dl Creatinine 1.83 H (0.6-1.4) mg/dl Est Cr Clr Drug Dosing 73.9 ml/min Est GFR ( Amer) 50.2 Est GFR (Non-Af Amer) 43.3 BUN/Creatinine Ratio 12.6 (10-20) Glucose 249 H (70-99) mg/dl POC Glucose 229 H (70-99) Lactate (0.4-2.0) mmol/L Calcium 8.9 (8.5-10.1) mg/dl Magnesium 2.0 (1.8-2.4) mg/dl Total Bilirubin 2.9 H D (0.2-1) mg/dl AST 87 H (15-37) U/L ALT 80 H (12-78) U/L Alkaline Phosphatase 145 H (45-117) U/L Ammonia (11-32) umol/L Troponin I (0-0.045) ng/ml NT-Pro-B Natriuret Pep (0-450) pg/ml Total Protein 7.7 (6.4-8.2) gm/dl Albumin 2.6 L (3.4-5.0) gm/dl Globulin 5.1 H (2.5-4.0) gm/dl Albumin/Globulin Ratio 0.5 L (0.9-2) Procalcitonin (0-0.5) ng/ml Urine Color Urine Appearance (Clear) Urine pH (4.5-7.5) Ur Specific [place] (1.000-1.030) Urine Protein (Negative) Urine Glucose (UA) (Negative) Urine Ketones (Negative) Urine Blood (Negative) Urine Nitrite (Negative) Urine Bilirubin (Negative) Urine Urobilinogen (Negative) Ur Leukocyte Esterase (Negative) Urine RBC (0-4) /hpf Urine WBC (0-5) /hpf Ur Epithelial Cells (0-5) /lpf Amorphous Sediment (None Prsent) Urine Bacteria (Negative) Urine Yeast (None Prsent) Influenza Type A Ag (Neg) Influenza Type B Ag (Neg) 12/18/18 12/18/18 12/18/18 Range/Units 14:31 16:17 20:39 WBC (4.8-10.8) K/uL RBC (4.7-6.1) M/uL Hgb (14.0-18.0) g/dL Hct (42-52) % MCV (80-100) fL MCH (25-34) pg MCHC (32-36) g/dL RDW Std Deviation (36.4-46.3) fL RDW Coeff of Lorenzo (11.5-14.5) % Plt Count (130-400) K/uL MPV (7.4-10.4) fL Immature Gran % (Auto) % Neut % (Auto) % Lymph % (Auto) % Angelina % (Auto) % Eos % (Auto) % Baso % (Auto) % Immature Gran # (Auto) (0.00-0.02) K/uL Neut # (Auto) (1.4-6.5) K/uL Lymph # (Auto) (1.2-3.4) K/uL Angelina # (Auto) (0.11-0.59) K/uL Eos # (Auto) (0-0.5) K/uL Baso # (Auto) (0-0.2) K/uL PT (9.0-12.0) Seconds INR (0.9-1.1) APTT (21.0-31.0) Seconds PTT Ratio Sodium (136-145) mmol/L Potassium (3.5-5.1) mmol/L Chloride (98-107) mmol/L Carbon Dioxide (21-32) mmol/L Anion Gap (3-11) BUN (7-18) mg/dl Creatinine (0.6-1.4) mg/dl Est Cr Clr Drug Dosing ml/min Est GFR ( Amer) Est GFR (Non-Af Amer) BUN/Creatinine Ratio (10-20) Glucose (70-99) mg/dl POC Glucose 212 H 207 H (70-99) Lactate 2.1 H* (0.4-2.0) mmol/L Calcium (8.5-10.1) mg/dl Magnesium (1.8-2.4) mg/dl Total Bilirubin (0.2-1) mg/dl AST (15-37) U/L ALT (12-78) U/L Alkaline Phosphatase (45-117) U/L Ammonia (11-32) umol/L Troponin I (0-0.045) ng/ml NT-Pro-B Natriuret Pep (0-450) pg/ml Total Protein (6.4-8.2) gm/dl Albumin (3.4-5.0) gm/dl Globulin (2.5-4.0) gm/dl Albumin/Globulin Ratio (0.9-2) Procalcitonin (0-0.5) ng/ml Urine Color Urine Appearance (Clear) Urine pH (4.5-7.5) Ur Specific [place] (1.000-1.030) Urine Protein (Negative) Urine Glucose (UA) (Negative) Urine Ketones (Negative) Urine Blood (Negative) Urine Nitrite (Negative) Urine Bilirubin (Negative) Urine Urobilinogen (Negative) Ur Leukocyte Esterase (Negative) Urine RBC (0-4) /hpf Urine WBC (0-5) /hpf Ur Epithelial Cells (0-5) /lpf Amorphous Sediment (None Prsent) Urine Bacteria (Negative) Urine Yeast (None Prsent) Influenza Type A Ag (Neg) Influenza Type B Ag (Neg) Imaging Data Radiologist's Impression: XR chest 1V portable HISTORY: 48 years-old Male Sob. Fever. Acute shortness breath with fever COMPARISON: Chest radiograph 10/27/2018 TECHNIQUE: Portable AP view the chest FINDINGS: Cardiac silhouette is enlarged, unchanged. The patient is slightly rotated to the right. Prior median sternotomy. Mild pulmonary vascular congestion without pneumothorax, pleural effusion or focal airspace consolidation. Minimal left basilar opacities appear unchanged suggestive of probable atelectasis. Bones of the chest appear grossly intact. IMPRESSION: 1. Cardiomegaly with mild pulmonary vascular congestion. 2. Minimal left infrahilar and left basilar opacities redemonstrated suggestive of probable atelectasis. MDM Narrative Physical exam and history were performed. Nursing notes, EMR, and Medication List were personally reviewed. Patient appears to have an extensive past medical history with acute onset fever, tachycardia, and shortness of breath. On examination the patient appears chronically ill but is pleasant. IV access was established and labs were obtained. Chest x-ray performed. Blood cultures were gathered. The case was discussed with my attending physician who remained closely involved in care and decision-making. The patient's blood work is as above and was reviewed. He does have an elevated white blood cell count of 17,000. His lactic acid is 2.8. X-ray was reviewed by myself and radiology showing no acute process. Velazquez catheter was placed, and urine may suggest infection. Overall the patient does not appear well for discharge home. He appears to be septic, however the exact source is unknown at this time. This certainly could be related to a cellulitis of his legs or possible UTI. The patient was started on vancomycin and Zosyn. The case was discussed with the on-call hospitalist. Please see their dictation for further patient course, plan, and disposition. The chart was completed utilizing [employer] Speech Voice Recognition Software. Grammatical errors, random word insertions, pronoun errors, and incomplete sentences are an occasional consequence of this system due to software limitations, ambient noise, and hardware issues. Any formal questions or concerns about the content, text, or information contained within the body of this dictation should be directly addressed to the provider for clarification. . Impression & Plan Sepsis Discharge Plan Visit Data *Final* Discharge Date/Time: 12/18/18 06:06 Chief Complaint: Illness Stated Complaint: FEVER/NAUSEA/CHILLS ED Provider: Demarcus Razo ED Midlevel Provider: Jason Manuel Discharge Problem: Sepsis Patient Disposition: Admitted As Inpatient Condition: Fair Discharge Instructions Interventions: ED Discharge Assessment Last Done: 12/18/18 06:06
[2018-12-19 06:22] LABS: Basophils # (auto) 0.03 K/uL (0-0.2); Basophils % (auto) 0.4 %; Eosinophils # (auto) 0.07 K/uL (0-0.5); Hematocrit (blood only) 40.7 % (42-52); Hemoglobin 14.5 g/dL (14.0-18.0); Immature Granulocytes # (auto) 0.02 K/uL (0.00-0.02); Immature Granulocytes % (auto) 0.3 %; Lymphocytes # (auto) 1.13 K/uL (1.2-3.4); Mean Corpuscular Hgb Conc 35.6 g/dL (32-36); Mean Platelet Volume 9.1 fL (7.4-10.4); Monocytes # (auto) 0.46 K/uL (0.11-0.59); Monocytes % (auto) 6.5 %; Neutrophils # (auto) 5.37 K/uL (1.4-6.5); Neutrophils % (auto) 75.8 %; Platelet Count 113 K/uL (130-400); RDW Coefficient of Variation 15.3 % (11.5-14.5); RDW Standard Deviation 55.7 fL (36.4-46.3); Red Blood Count 4.07 M/uL (4.7-6.1); White Blood Count 7.08 K/uL (4.8-10.8)
[2018-12-19 06:30] LABS: INR 2.6 (0.9-1.1); Prothrombin Time 24.8 Seconds (9.0-12.0)
[2018-12-19 07:01] LABS: Albumin Globulin Ratio 0.5 (0.9-2); Albumin Level 2.2 gm/dl (3.4-5.0); BUN Creatinine Ratio 12.9 (10-20); Bilirubin,Total 1.8 mg/dl (0.2-1); Calcium 8.2 mg/dl (8.5-10.1); Creatinine Clr Calc Pharmacy 67.8 ml/min; Est GFR (African American) 45.1; Est GFR (Non-African American) 38.9; Globulin 4.5 gm/dl (2.5-4.0); Potassium 3.5 mmol/L (3.5-5.1); Total Protein 6.7 gm/dl (6.4-8.2)
[2018-12-19] MEDS: INSULIN ASPART 100 UNITS/ML 3 ML PEN SC SCH ×4 (08:11→21:16)
[2018-12-19] MEDS: LACTULOSE SYRUP 30 GM/45 ML UDP PO SCH ×2 (08:12→21:14)
[2018-12-19] MEDS: POTASSIUM CHLORIDE 20 MEQ TABCR PO SCH (08:13)
[2018-12-19] MEDS: FEBUXOSTAT 40 MG TABLET PO SCH (08:13)
[2018-12-19] MEDS: GABAPENTIN 600 MG TAB PO SCH ×3 (08:13→21:15)
[2018-12-19] MEDS: COLCHICINE 0.6 MG TAB PO SCH (08:13)
[2018-12-19] MEDS: ATENOLOL 25 MG TABLET PO SCH (08:14)
[2018-12-19] MEDS: KETOCONAZOLE 2% CR 15 GM TUBE EXT SCH ×2 (08:14→21:13)
[2018-12-19] MEDS: PANTOprazole 40 MG TAB PO SCH (08:14)
[2018-12-19] MEDS: MAGNESIUM OXIDE 400 MG TAB PO SCH (08:14)
[2018-12-19] MEDS: FERROUS SULFATE 325 MG TAB PO SCH ×2 (08:14→21:14)
[2018-12-19] MEDS: CLOTRIMAZOLE/BETAMETHASONE CR 15 GM TUBE EXT SCH ×2 (08:15→21:13)
[2018-12-19] MEDS: INSULIN GLARGINE 100 UNIT/ML VIAL SQ SCH ×2 (08:15→21:15)
[2018-12-19] MEDS: OXYCODONE HCL IR 30 MG TAB (IMMEDIATE RELEASE) PO SCH ×3 (08:19→21:12)
[2018-12-19] MEDS: CLOTRIMAZOLE 1% CR 15 GM TUBE TOP SCH ×2 (08:20→21:13)
[2018-12-19] MEDS ORDERED: PHYTONADIONE 5 MG in SODIUM CHLORIDE 0.9% 50 ML IV ONE (12:10)
[2018-12-19] MEDS ORDERED: VANCOMYCIN TROUGH ONE (13:30)
--- NOTE | 2018-12-19 13:54 | Surgery Consultation ---
Date of Consultation December 19, 2018 Assessment & Plan (1) Surgically created abdominal mucous fistula: Appears superficial and is now hemostatic. Can continue coumadin. If re- bleeds could try suturing the area. Please call prn. History of Present Illness Attending Physician: Adeel Molina DO History of Present Illness 48 y/o male with Hirschsprung's disease and colostomy in 2013, diabetes, anticoagulated for h/o PE/CVA admitted yesterday for bilat LE cellulitis/sepsis. He had some bleeding from his mucus fistula today, INR was 2.6 and he was given vit K. The apparent bleeding area was treated with silver nitrate. He has occasional bleeding from this area at home if it rubs on his clothes or scabs over. [place] [facility] [place] including colonoscopy and capsule x2. Has not had any recent bleeding from colostomy. INR is checked every 4-6 weeks. Allergies Allergy/AdvReac Type Severity Reaction Status Date / Time No Known Allergies Allergy Verified 10/08/18 14:47 Home Medications Home Medications Medication Instructions Recorded Confirmed Type atenolol 25 mg PO DAILY 08/18/18 12/18/18 History colchicine 0.6 mg PO DAILY 08/18/18 12/18/18 History furosemide 40 mg PO DAILY 08/18/18 12/18/18 History gabapentin 600 mg PO TID 08/18/18 12/18/18 History magnesium oxide 400 mg PO DAILY 08/18/18 12/18/18 History oxycodone 30 mg PO TID 08/18/18 12/18/18 History pantoprazole 40 mg PO DAILY 08/18/18 12/18/18 History potassium chloride 20 meq PO DAILY 08/18/18 12/18/18 History ferrous sulfate 325 mg PO BID 09/12/18 12/18/18 History insulin aspart U-100 [Novolog 120 units SUBCUT QAM 09/12/18 12/18/18 History Flexpen U-100 Insulin] insulin glargine U-300 conc 138 units SUBCUT BID 09/12/18 12/18/18 History [Toujeo SoloStar U-300 Insulin] insulin aspart U-100 [Novolog 122 unit SUBCUT QDL 10/08/18 12/18/18 History Flexpen U-100 Insulin] insulin aspart U-100 [Novolog 124 unit SUBCUT QPM 10/08/18 12/18/18 History Flexpen U-100 Insulin] insulin aspart U-100 [Novolog 1 sliding scale dose SUBCUT UD 10/08/18 12/18/18 History U-100 Insulin aspart] clotrimazole 1 applic TOPICAL BID 12/18/18 12/18/18 History clotrimazole-betamethasone 1 applic TOPICAL BID 12/18/18 12/18/18 History febuxostat [Uloric] 80 mg PO DAILY 12/18/18 12/18/18 History ketoconazole 1 applic TOPICAL BID 12/18/18 12/18/18 History lactulose 30 ml PO BID 12/18/18 12/18/18 History warfarin 5 mg PO DAILY 12/18/18 12/18/18 History Patient History Medical History DM type 2 (diabetes mellitus, type 2) (Chronic) Hepatitis C (Chronic) Diabetic nephropathy (Chronic) Paraplegia (Chronic) Brain abscess CAD (coronary atherosclerotic disease) Cerebrovascular accident (CVA) Diastolic congestive heart failure Endocarditis Hirschsprung's disease History of intravenous drug abuse Pulmonary embolism Pulmonary hypertension Surgical History Hx of CABG (Resolved) S/P cardiac cath (Chronic) S/P colostomy (Chronic) H/O mitral valve repair Family History Other Family history non-contributory Social History Preferred Language: Austrian Communication Ability: Effective 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 Beliefs That Will Affect Care: None marital status: Current Living Situation: Parent Other Information That Helps Us Care for You: No Feels Safe at Home: Yes Safety Concerns: Feels Safe At This Time Smoking Status: Former smoker Do You Dip or Chew Tobacco: No Smoking End Date: 2001 Second Hand Exposure: No Tobacco Cessation Education Requested by Patient: No Hx Alcohol Use: No Hx Substance Use: Yes substance use type: former substance user Review of Systems Gastrointestinal: no change in bowel habits, no blood in stools and no melena Physical Exam Constitutional: no acute distress Gastrointestinal (Abdomen): Percussion/Palpation: abdomen soft; abdomen nontender mucus fistula treated with silver nitrate from 2-5 o'clock, no active bleeding Skin: bilat LE cellulitis Results & Data Vital Signs (Past 12 Hours) Vital Signs Temp Pulse Resp BP Pulse Ox 12/19/18 11:03 36.8 C 76 18 112/69 91 12/19/18 07:18 37.0 C 75 21 108/58 L 92 12/19/18 04:00 37.0 C 74 24 97/60 L 93
--- NOTE | 2018-12-19 14:12 | Surgery Consultation ---
Date of Consultation December 19, 2018 Assessment & Plan (1) Bleeding from wound: We will monitor the wound for bleeding if it were to persist we would usually suture ligate the site. Have discussed this with the patient. History of Present Illness Attending Physician: Adeel Molina DO History of Present Illness Asked to see patient for bleeding mucous fistula on the left side of his abdomen. By the time I assisted German Forman was able to see the patient, wound care nurses had used silver nitrate to alleviate the bleeding. The patient does have a history of pulmonary emboli and stroke and is on Coumadin. Allergies Allergy/AdvReac Type Severity Reaction Status Date / Time No Known Allergies Allergy Verified 10/08/18 14:47 Home Medications Home Medications Medication Instructions Recorded Confirmed Type atenolol 25 mg PO DAILY 08/18/18 12/18/18 History colchicine 0.6 mg PO DAILY 08/18/18 12/18/18 History furosemide 40 mg PO DAILY 08/18/18 12/18/18 History gabapentin 600 mg PO TID 08/18/18 12/18/18 History magnesium oxide 400 mg PO DAILY 08/18/18 12/18/18 History oxycodone 30 mg PO TID 08/18/18 12/18/18 History pantoprazole 40 mg PO DAILY 08/18/18 12/18/18 History potassium chloride 20 meq PO DAILY 08/18/18 12/18/18 History ferrous sulfate 325 mg PO BID 09/12/18 12/18/18 History insulin aspart U-100 [Novolog 120 units SUBCUT QAM 09/12/18 12/18/18 History Flexpen U-100 Insulin] insulin glargine U-300 conc 138 units SUBCUT BID 09/12/18 12/18/18 History [Toujeo SoloStar U-300 Insulin] insulin aspart U-100 [Novolog 122 unit SUBCUT QDL 10/08/18 12/18/18 History Flexpen U-100 Insulin] insulin aspart U-100 [Novolog 124 unit SUBCUT QPM 10/08/18 12/18/18 History Flexpen U-100 Insulin] insulin aspart U-100 [Novolog 1 sliding scale dose SUBCUT UD 10/08/18 12/18/18 History U-100 Insulin aspart] clotrimazole 1 applic TOPICAL BID 12/18/18 12/18/18 History clotrimazole-betamethasone 1 applic TOPICAL BID 12/18/18 12/18/18 History febuxostat [Uloric] 80 mg PO DAILY 12/18/18 12/18/18 History ketoconazole 1 applic TOPICAL BID 12/18/18 12/18/18 History lactulose 30 ml PO BID 12/18/18 12/18/18 History warfarin 5 mg PO DAILY 12/18/18 12/18/18 History Patient History Medical History DM type 2 (diabetes mellitus, type 2) (Chronic) Hepatitis C (Chronic) Diabetic nephropathy (Chronic) Paraplegia (Chronic) Brain abscess CAD (coronary atherosclerotic disease) Cerebrovascular accident (CVA) Diastolic congestive heart failure Endocarditis Hirschsprung's disease History of intravenous drug abuse Pulmonary embolism Pulmonary hypertension Surgical History Hx of CABG (Resolved) S/P cardiac cath (Chronic) S/P colostomy (Chronic) H/O mitral valve repair Family History Other Family history non-contributory Social History Preferred Language: Estonian Communication Ability: Effective 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 Examination of his left abdominal mucous fistula shows the site of silver nitrate application with no bleeding. He is otherwise awake and alert stable. Results & Data Vital Signs (Past 12 Hours) Vital Signs Temp Pulse Resp BP Pulse Ox 12/19/18 11:03 36.8 C 76 18 112/69 91 12/19/18 07:18 37.0 C 75 21 108/58 L 92 12/19/18 04:00 37.0 C 74 24 97/60 L 93
--- NOTE | 2018-12-19 15:11 | Pharmacy Report ---
Pharmacy Abx Dose Short Note - Date of Service December 19, 2018 - Assessment & Plan Assessment * 48 year old M admitted for sepsis, bilateral lower ext cellulitis, possible UTI * Patient has a h/o IVDA, endocarditis, CVA, brain abscess, paraplegia, hep C and diastolic HF * He does have multiple risk factors for drug resistant organism (abx use in last 90 days, recent hospitalization, DM, hepatitis) * h/o morganella and e coli cultured from abd wound in the past, it is also reported he has a h/o MRSA and MDR proteus mirabilis. * Baseline SCr 1.4-1.5; SCr climbing (SCr 1.63 -->2.0) and U.O. decreasing (< 0.5mL/kg/hr) Plan Vancomycin * Vancomycin 1500mg (~9.5mg/kg) IV Q 12 hrs initiated yesterday following loading dose in the ER * Trough measured this afternoon after only 2 maint doses * Trough supratherapeutic at 26.5mcg/mL. Level was drawn at the appropriate time and prior doses hung according to schedule. This level will likely continue to rise w/ repeat dosing as we have not yet achieved steady-state. * My current estimates of half-life are ~18+ hours. Given changing renal fxn will refrain for ordering a new maint dose. Rather will check random level w/ AM labs to confirm level is dropping at the appropriate rate for Q 18 hr dosing regimen. I estimate level to be ~13 at [id number]. Will redose at that time if level 15-20. Zosyn * continue 4.5gm ext-infusion Q 8 hrs for time being, BMI > 35, eCrCl may or may not be > 20cc/min Pharmacy will continue to follow and will adjust dose/frequency as necessary. Thank you.
--- NOTE | 2018-12-19 16:11 | Hospitalist Progress Note ---
Date of Service December 19, 2018 Assessment & Plan (1) Sepsis: initially with fever and leukocytosis improved with Vanco and Zosyn and IV fluids sepsis resolved no organ failure, no shock (2) Bilateral lower leg cellulitis: marked improvement in the past 24 hours skin was warm and hot yesterday, it is cool to touch today less redness continue current regimen, ID following (3) Bleeding from wound: significant bleeding earlier today will reverse INR for now general surgery will follow, if it continues to bleed will throw in sutures (4) CKD (chronic kidney disease) stage 3, GFR 30-59 ml/min: Cr up to 2.0, over past few weeks it has been rising slowly will repeat tomorrow making adequate urine (5) Supratherapeutic INR: was > 3 on admission, down to 2.6 today will reverse with Vitamin K due to bleeding (6) Transaminitis: improvement in the first 24 hours likely due to acute illness, has h/o hepatitis C will repeat tomorrow (7) Cerebrovascular accident (CVA): permanent weakness on right side cannot ambulate, uses wheelchair (8) Chronic diastolic (congestive) heart failure: patient is euvolemic, no signs of exacerbation (9) Hirschsprung's disease: (10) DM type 2 (diabetes mellitus, type 2): (11) Diabetic nephropathy: Subjective patient feeling better today as far as cellulitis no warmth, no fever or chills, eating better reviewed labs, WBC down to normal Cr did rise slightly to 2.0 called to room by RN, had a lot of bleeding from mucous fistula site he said that he bleeds periodically at home, can soak sheets with blood there was significant oozing from the site, could not see where bleeding was coming from on visual inspection had RN pack wound consulted general surgery for their recommendation, possible suturing INR 2.6, will reverse with Vit K Review of Systems Review of Systems: All systems reviewed & are unremarkable except as noted in HPI & below Constitutional: no fever, no chills, no sweats, no fatigue and no weakness Respiratory: no cough and no dyspnea Cardiovascular: no chest pain, no dyspnea and no palpitations Integumentary: + wounds (left lower quadrant fistula site with bleeding) Physical Exam Constitutional: WD/WN, vitals as above + obese Eyes: PERRL, conjunctivae normal, anicteric sclerae ENMT: external ear and nose normal, oropharynx normal Neck: trachea midline, no thyromegaly Respiratory: normal respiratory effort, lungs clear to auscultation Cardiovascular: RRR, no murmur, no edema Gastrointestinal (Abdomen): normal bowel sounds, soft, nontender, no hepatosplenomegaly Musculoskeletal: Head/Neck/Chest: normocephalic and head atraumatic Extremities: + abnormal strength (right leg and right arm weakness from prior stroke); no cyanosis, no clubbing and no petechiae Gait: + abnormal gait (cannot ambulate) Skin: + rash (bilateral lower leg erythema improved, cool to touch) and + wound (left mucous fistula site, has bleeding, dark blood) Neurologic: patellar DTR's 2+ bilat, sensation intact and PERRL, EOMI, accommodation nl, no face palsy, no dysarthria Psychiatric: A+Ox3, euthymic affect Lymphatic: no cervical or axillary lymphadenopathy Results & Data Vital Signs (Past 12 Hours) Vital Signs Temp Pulse Resp BP Pulse Ox 12/19/18 15:33 36.8 C 75 22 133/66 92 12/19/18 11:03 36.8 C 76 18 112/69 91 12/19/18 07:18 37.0 C 75 21 108/58 L 92 Laboratory Results Laboratory Results - last 24 hr 12/18/18 12/18/18 12/19/18 16:17 20:39 06:09 WBC 7.08 RBC 4.07 L Hgb 14.5 Hct 40.7 L MCV 100.0 MCH 35.6 H MCHC 35.6 RDW Std Deviation 55.7 H RDW Coeff of Lorenzo 15.3 H Plt Count 113 L MPV 9.1 Immature Gran % (Auto) 0.3 Neut % (Auto) 75.8 Lymph % (Auto) 16.0 [place] % (Auto) 6.5 Eos % (Auto) 1.0 Baso % (Auto) 0.4 Immature Gran # (Auto) 0.02 Neut # (Auto) 5.37 Lymph # (Auto) 1.13 L [place] # (Auto) 0.46 Eos # (Auto) 0.07 Baso # (Auto) 0.03 PT INR Sodium Potassium Chloride Carbon Dioxide Anion Gap BUN Creatinine Est Cr Clr Drug Dosing Est GFR ( Amer) Est GFR (Non-Af Amer) BUN/Creatinine Ratio Glucose POC Glucose 212 H 207 H Calcium Total Bilirubin AST ALT Alkaline Phosphatase Total Protein Albumin Globulin Albumin/Globulin Ratio Vancomycin Trough 12/19/18 12/19/18 12/19/18 06:09 06:09 07:19 WBC RBC Hgb Hct MCV MCH MCHC RDW Std Deviation RDW Coeff of Lorenzo Plt Count MPV Immature Gran % (Auto) Neut % (Auto) Lymph % (Auto) [place] % (Auto) Eos % (Auto) Baso % (Auto) Immature Gran # (Auto) Neut # (Auto) Lymph # (Auto) [place] # (Auto) Eos # (Auto) Baso # (Auto) PT 24.8 H INR 2.6 H Sodium 137 Potassium 3.5 D Chloride 105 Carbon Dioxide 26 Anion Gap 6.0 BUN 26 H Creatinine 2.00 H Est Cr Clr Drug Dosing 67.8 Est GFR ( Amer) 45.1 Est GFR (Non-Af Amer) 38.9 BUN/Creatinine Ratio 12.9 Glucose 103 H POC Glucose 106 H Calcium 8.2 L Total Bilirubin 1.8 H AST 70 H ALT 64 Alkaline Phosphatase 107 Total Protein 6.7 Albumin 2.2 L Globulin 4.5 H Albumin/Globulin Ratio 0.5 L Vancomycin Trough 12/19/18 12/19/18 11:01 13:44 WBC RBC Hgb Hct MCV MCH MCHC RDW Std Deviation RDW Coeff of Lorenzo Plt Count MPV Immature Gran % (Auto) Neut % (Auto) Lymph % (Auto) [place] % (Auto) Eos % (Auto) Baso % (Auto) Immature Gran # (Auto) Neut # (Auto) Lymph # (Auto) [place] # (Auto) Eos # (Auto) Baso # (Auto) PT INR Sodium Potassium Chloride Carbon Dioxide Anion Gap BUN Creatinine Est Cr Clr Drug Dosing Est GFR ( Amer) Est GFR (Non-Af Amer) BUN/Creatinine Ratio Glucose POC Glucose 151 H Calcium Total Bilirubin AST ALT Alkaline Phosphatase Total Protein Albumin Globulin Albumin/Globulin Ratio Vancomycin Trough 26.5 Medications Administered Current Inpatient Medications Acetaminophen (Tylenol) 650 mg PO Q4H PRN PRN Reason: Pain or Fever Stop: 01/17/19 06:19 Atenolol (Tenormin) 25 mg PO DAILY CLAUDIA Stop: 01/17/19 08:59 Last Admin: 12/19/18 08:14 Dose: 25 mg Documented by: Betamethasone/Clotrimazole (Lotrisone 1/0.5%) 1 appln EXT BID CLAUDIA Stop: 01/17/19 08:59 Last Admin: 12/19/18 08:15 Dose: 1 appln Documented by: Clotrimazole (Lotrimin 1%) 1 appln TOP BID CLAUDIA Stop: 01/17/19 08:59 Last Admin: 12/19/18 08:20 Dose: 1 appln Documented by: Colchicine (Colcrys) 0.6 mg PO DAILY CLAUDIA Stop: 01/17/19 08:59 Last Admin: 12/19/18 08:13 Dose: 0.6 mg Documented by: Febuxostat (Uloric) 80 mg PO DAILY CLAUDIA Stop: 01/17/19 08:59 Last Admin: 12/19/18 08:13 Dose: 80 mg Documented by: Ferrous Sulfate (Feosol) 325 mg PO BID CLAUDIA Stop: 01/17/19 08:59 Last Admin: 12/19/18 08:14 Dose: 325 mg Documented by: Furosemide (Lasix) 40 mg PO DAILY CLAUDIA Stop: 01/17/19 08:59 Last Admin: 12/18/18 08:09 Dose: 40 mg Documented by: Gabapentin (Neurontin) 600 mg PO TID CLAUDIA Stop: 01/17/19 08:59 Last Admin: 12/19/18 14:55 Dose: 600 mg Documented by: Sodium Chloride (Nss 1000ml) 1,000 mls @ 125 mls/hr IV .Q8H [facility] Stop: 01/17/19 06:19 Last Admin: 12/19/18 14:57 Dose: 125 mls/hr Documented by: Piperacillin Sod/Tazobactam (Sod 4.5 gm/ Dextrose) 120 mls @ 30 mls/hr IV Q8H [facility]; Protocol Stop: 12/28/18 09:59 Last Admin: 12/19/18 12:28 Dose: 28 mls/hr Documented by: Insulin Aspart (Novolog Flexpen) 0 units SC ACHS CLAUDIA Stop: 01/17/19 07:29 Last Admin: 12/19/18 12:43 Dose: 9 units Documented by: Insulin Glargine (Lantus) 138 units SQ BID [facility] Stop: 01/17/19 20:59 Last Admin: 12/19/18 08:15 Dose: 138 units Documented by: Ketoconazole (Nizoral 2%) 1 appln EXT BID CLAUDIA Stop: 12/28/18 08:59 Last Admin: 12/19/18 08:14 Dose: 1 appln Documented by: Lactulose (Chronulac) 30 gm PO BID CLAUDIA Stop: 01/17/19 08:59 Last Admin: 12/19/18 08:12 Dose: 30 gm Documented by: Magnesium Oxide (Mag-Ox) 400 mg PO DAILY CLAUDIA Stop: 01/17/19 08:59 Last Admin: 12/19/18 08:14 Dose: 400 mg Documented by: Miscellaneous Information (Consult) 1 ea N/A UD PRN PRN Reason: Consult Stop: 01/17/19 06:19 Miscellaneous Information (Consult) 1 ea N/A UD PRN PRN Reason: Consult Stop: 01/17/19 06:19 Oxycodone HCl (Roxicodone Immediate Rel) 30 mg PO TID CLAUDIA Stop: 01/01/19 08:59 Last Admin: 12/19/18 14:56 Dose: 30 mg Documented by: Pantoprazole Sodium (Protonix) 40 mg PO DAILY CLAUDIA Stop: 01/17/19 08:59 Last Admin: 12/19/18 08:14 Dose: 40 mg Documented by: Potassium Chloride (Klor-Con M20) 20 meq PO DAILY CLAUDIA Stop: 01/17/19 08:59 Last Admin: 12/19/18 08:13 Dose: 20 meq Documented by:
[2018-12-20] MEDS: PIPERACILLIN/TAZOBACTAM 4.5 GM in DEXTROSE 5% 100 ML IV SCH ×3 (02:38→17:51)
[2018-12-20] MEDS: SODIUM CHLORIDE 0.9% 1000ML 1,000 ML IV SCH (05:28)
[2018-12-20 07:51] LABS: Basophils # (auto) 0.05 K/uL (0-0.2); Basophils % (auto) 0.7 %; Eosinophils # (auto) 0.36 K/uL (0-0.5); Eosinophils % (auto) 4.9 %; Hematocrit (blood only) 42.1 % (42-52); Hemoglobin 14.6 g/dL (14.0-18.0); Immature Granulocytes # (auto) 0.03 K/uL (0.00-0.02); Immature Granulocytes % (auto) 0.4 %; Lymphocytes # (auto) 1.42 K/uL (1.2-3.4); Lymphocytes % (auto) 19.5 %; Mean Corpuscular Hgb Conc 34.7 g/dL (32-36); Mean Corpuscular Volume 101.4 fL (80-100); Mean Platelet Volume 9.5 fL (7.4-10.4); Monocytes % (auto) 6.9 %; Neutrophils # (auto) 4.93 K/uL (1.4-6.5); Neutrophils % (auto) 67.6 %; Platelet Count 132 K/uL (130-400); RDW Coefficient of Variation 15.5 % (11.5-14.5); RDW Standard Deviation 58.2 fL (36.4-46.3); Red Blood Count 4.15 M/uL (4.7-6.1); White Blood Count 7.29 K/uL (4.8-10.8)
[2018-12-20 08:02] LABS: INR 1.6 (0.9-1.1); Prothrombin Time 15.5 Seconds (9.0-12.0)
[2018-12-20 08:24] LABS: Albumin Level 2.6 gm/dl (3.4-5.0); BUN Creatinine Ratio 10.9 (10-20); Calcium 8.5 mg/dl (8.5-10.1); Creatinine Clr Calc Pharmacy 52.9 ml/min; Est GFR (African American) 33.1; Est GFR (Non-African American) 28.6
[2018-12-20 08:27] LABS: Bilirubin,Total 2.1 mg/dl (0.2-1)
[2018-12-20 08:28] LABS: Total Protein 7.5 gm/dl (6.4-8.2)
[2018-12-20] MEDS: INSULIN ASPART 100 UNITS/ML 3 ML PEN SC SCH ×4 (08:40→20:57)
[2018-12-20] MEDS: GABAPENTIN 600 MG TAB PO SCH ×3 (08:41→20:56)
[2018-12-20] MEDS: FERROUS SULFATE 325 MG TAB PO SCH ×2 (08:41→20:58)
[2018-12-20] MEDS: ATENOLOL 25 MG TABLET PO SCH (08:41)
[2018-12-20] MEDS: PANTOprazole 40 MG TAB PO SCH (08:41)
[2018-12-20] MEDS: LACTULOSE SYRUP 30 GM/45 ML UDP PO SCH ×2 (08:41→20:52)
[2018-12-20] MEDS: MAGNESIUM OXIDE 400 MG TAB PO SCH (08:42)
[2018-12-20] MEDS: KETOCONAZOLE 2% CR 15 GM TUBE EXT SCH (08:42)
[2018-12-20] MEDS: CLOTRIMAZOLE 1% CR 15 GM TUBE TOP SCH ×2 (08:42→20:58)
[2018-12-20] MEDS: COLCHICINE 0.6 MG TAB PO SCH (08:43)
[2018-12-20] MEDS: FEBUXOSTAT 40 MG TABLET PO SCH (08:43)
[2018-12-20] MEDS: POTASSIUM CHLORIDE 20 MEQ TABCR PO SCH (08:43)
[2018-12-20] MEDS: INSULIN GLARGINE 100 UNIT/ML VIAL SQ SCH ×2 (08:43→21:28)
[2018-12-20] MEDS: CLOTRIMAZOLE/BETAMETHASONE CR 15 GM TUBE EXT SCH ×2 (08:44→20:58)
[2018-12-20] MEDS: OXYCODONE HCL IR 30 MG TAB (IMMEDIATE RELEASE) PO SCH ×2 (08:46→15:42)
--- NOTE | 2018-12-20 11:06 | Pharmacy Report ---
Pharmacy Abx Dose Short Note - Date of Service December 20, 2018 - Assessment & Plan Assessment * 48 year old M admitted for sepsis, bilateral lower ext cellulitis, possible UTI * Patient has a h/o IVDA, endocarditis, CVA, brain abscess, paraplegia, hep C and diastolic HF * He does have multiple risk factors for drug resistant organism (abx use in last 90 days, recent hospitalization, DM, hepatitis) * h/o morganella and e coli cultured from abd wound in the past, it is also reported he has a h/o MRSA and MDR proteus mirabilis. * BLCX's no growth thus far, Urine cx growing Grp B Strep * Currently afebrile and VSS; cellulitis improving per provider's assessment * Baseline SCr 1.4-1.5; SCr continues to climb (SCr 1.63 -->2.0-->2.58); U.O. 2450mL yesterday, and thus far 0.33mL/kg/hr today Plan Vancomycin * Vancomycin was placed on hold yesterday when trough returned at 26.5 following two maint doses of 1500mg (~9.5mg/kg) Q 12 hrs * Random vancomycin level this AM = 18.1 * Level is therapeutic, and redosing may be performed today * Goal trough for SSTI: 10-20mcg/mL now that sepsis resolved * Given the rise in SCr over the last 48 hrs, will not prescribe a set maint dose, rather will give single doses and check random levels to guide redosing * 1500mg IV x 1 will be given this afternoon. Will recheck level w/ AM labs the subsequent day (12/22) as I anticipate a redosing frequency of 36+ hrs Zosyn * 4.5gm IV Q 8 hrs ext-infusion is reasonable to continue at this time, truly difficult to determine accurate eCrCl however risks vs benefits favor continuing more aggressive dose given body habitus and infxn w/ systemic symptoms Pharmacy will continue to follow and will adjust dose/frequency as necessary. Thank you.
--- NOTE | 2018-12-20 11:29 | Nephrology Consultation ---
Date of Consultation December 20, 2018 Assessment & Plan (1) Acute kidney injury: Hema admitted to the hospital with wound infection sepsis. Has baseline stage III CKD, baseline creatinine 1.5-1.7. Developed acute kidney injury over last 2 days, creatinine increased from 1.6 on admission to 2.6 this morning. Has proteinuria and hematuria. Chronic kidney disease most likely secondary to microvascular disease. Acute kidney injury in the setting of sepsis and hypertension, most likely prer enal versus ATN. Volume status is difficult to assess considering patient's body habitus, has significant lower extremity edema. Was on IV fluids before which is currently discontinued and blood pressure has been stable over without any hypotensive episode overnight. Cannot exclude possibility for postrenal obstruction with history of bilateral nephrolithiasis however seems to be less likely, has Velazquez catheter with some urine in Velazquez bag. Can't exclude possibility for glomerular diseases include proteinuria and hematuria and prior history of hepatitis and IV drug abuse. --as blood pressure has been stable, monitor renal function closely, hopefully renal function will stabilize and start to improve, considering patient's body habitus renal ultrasound would not be helpful anyway. --If function continues to worsen rapidly, may need further workup including serology --decrease gabapentin to 200 mg t.i.d. and may need to decrease his foot that to Maximum 300 mg daily if renal function continues to worsen -- monitor renal function and urine output closely --avoid nephrotoxic medications --would hold diuretics for now --monitor Vanco trough level Will follow Thank you for allowing me to participate in your patient's care. It was a pleasure to see Hema (2) CKD (chronic kidney disease) stage 3, GFR 30-59 ml/min: (3) Sepsis: (4) Wound infection: (5) Nephrolithiasis: History of Present Illness Reason for Consultation: Acute kidney injury with history of chronic kidney disease. Attending Physician: Adeel Molina DO History of Present Illness Hema Grajeda is a 48-year-old gentlemen with complex past medical history including stage 3 chronic kidney disease, coronary artery disease s/p CABG, h/o hepatitis-C admitted to the hospital with sepsis. Nephrology consult was requested to manage acute kidney injury. Electronic medical records including labs and imaging reviewed during patient's visit Hema presented to the hospital with 3 days history of overall not feeling well, fever and bleeding from abdominal wall wound. Admitted with sepsis possibly secondary to lower extremity cellulitis and fungal UTI. Has complex past medical history including history of CABG at young age, hep atitis C with history of IV drug abuse before. Has morbid obesity. History of colon resection status post colostomy. prior history of DVT and PE, on warfarin. Has history of hypertension, gout, on atenolol. Has DM on insulin. Has stage 3 chronic kidney disease, baseline creatinine has been 1.5-1.7. On admission creatinine was 1.6 which rapidly worsened to 2.6 the over last 2 days. Urinalysis positive for proteinuria and hematuria. Prior imaging in August with CT abdomen pelvis showed bilateral nonobstructing renal calculi. He has been non oliguric. Electrolyte remain acceptable. He was significantly hypotensive yesterday, systolic blood pressure was in 90s repeatedly however blood pressure improved today and patient received IV normal saline which now stopped. Has not been taking NSAID. Was not on LANEY-inhibitor/ARB. Has been on Lasix 40 mg p.o. daily. Allergies Allergy/AdvReac Type Severity Reaction Status Date / Time No Known Allergies Allergy Verified 10/08/18 14:47 Home Medications Home Medications Medication Instructions Recorded Confirmed Type atenolol 25 mg PO DAILY 08/18/18 12/18/18 History colchicine 0.6 mg PO DAILY 08/18/18 12/18/18 History furosemide 40 mg PO DAILY 08/18/18 12/18/18 History gabapentin 600 mg PO TID 08/18/18 12/18/18 History magnesium oxide 400 mg PO DAILY 08/18/18 12/18/18 History oxycodone 30 mg PO TID 08/18/18 12/18/18 History pantoprazole 40 mg PO DAILY 08/18/18 12/18/18 History potassium chloride 20 meq PO DAILY 08/18/18 12/18/18 History ferrous sulfate 325 mg PO BID 09/12/18 12/18/18 History insulin aspart U-100 [Novolog 120 units SUBCUT QAM 09/12/18 12/18/18 History Flexpen U-100 Insulin] insulin glargine U-300 conc 138 units SUBCUT BID 09/12/18 12/18/18 History [Toujeo SoloStar U-300 Insulin] insulin aspart U-100 [Novolog 122 unit SUBCUT QDL 10/08/18 12/18/18 History Flexpen U-100 Insulin] insulin aspart U-100 [Novolog 124 unit SUBCUT QPM 10/08/18 12/18/18 History Flexpen U-100 Insulin] insulin aspart U-100 [Novolog 1 sliding scale dose SUBCUT UD 10/08/18 12/18/18 History U-100 Insulin aspart] clotrimazole 1 applic TOPICAL BID 12/18/18 12/18/18 History clotrimazole-betamethasone 1 applic TOPICAL BID 12/18/18 12/18/18 History febuxostat [Uloric] 80 mg PO DAILY 12/18/18 12/18/18 History ketoconazole 1 applic TOPICAL BID 12/18/18 12/18/18 History lactulose 30 ml PO BID 12/18/18 12/18/18 History warfarin 5 mg PO DAILY 12/18/18 12/18/18 History Patient History Medical History DM type 2 (diabetes mellitus, type 2) (Chronic) Hepatitis C (Chronic) Diabetic nephropathy (Chronic) Paraplegia (Chronic) Brain abscess CAD (coronary atherosclerotic disease) Cerebrovascular accident (CVA) Diastolic congestive heart failure Endocarditis Hirschsprung's disease History of intravenous drug abuse Pulmonary embolism Pulmonary hypertension Surgical History Hx of CABG (Resolved) S/P cardiac cath (Chronic) S/P colostomy (Chronic) H/O mitral valve repair Family History Other Family history non-contributory Social History Preferred Language: Qatari Communication Ability: Effective [employer]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 Beliefs That Will Affect Care: None marital status: Current Living Situation: Parent Other Information That Helps Us Care for You: No Feels Safe at Home: Yes Safety Concerns: Feels Safe At This Time Smoking Status: Former smoker Do You Dip or Chew Tobacco: No Smoking End Date: 2001 Second Hand Exposure: No Tobacco Cessation Education Requested by Patient: No Hx Alcohol Use: No Hx Substance Use: Yes substance use type: former substance user Physical Exam Physical Exam: GENERAL: Middle-aged male, awake and alert, answers question appropriately however reports feeling disoriented since this morning. Morbidly obese. HEENT: Atraumatic, normocephalic. NECK: Supple, no JVD, no carotid bruit appreciated. ENT: No sinus tenderness MOUTH and THROAT: Moist oral mucosa, RESPIRATORY: Normal breathing efforts, clear to auscultation bilaterally, no wheezes or rales. CARDIOVASCULAR: S1, S2 normal, rate rhythm regular. ABDOMEN: Soft, positive bowel sound. Has colostomy, open wound with bleeding in the left lower quadrant MUSCULOSKELETAL: New. Normal range of motion. SKIN: No skin rash EXTREMITY: Bilateral 1 to 2+ lower extremity edema, HIS EPI Emend tenderness NEURO: No gross focal neurological deficit, speech fluent. PSYCHIATRY: Normal mood and judgment Results & Data Vital Signs (Past 12 Hours) Vital Signs Temp Pulse Pulse Resp BP Pulse Ox 12/20/18 08:17 36.7 C 78 16 136/78 96 12/20/18 03:14 37.0 C 78 19 138/85 90 12/20/18 00:01 78 12/19/18 23:27 36.6 C 80 19 117/72 92
[2018-12-20 11:49] LABS: Basophils # (auto) 0.03 K/uL (0-0.2); Basophils % (auto) 0.4 %; Eosinophils # (auto) 0.17 K/uL (0-0.5); Eosinophils % (auto) 2.2 %; Hematocrit (blood only) 42.5 % (42-52); Hemoglobin 14.6 g/dL (14.0-18.0); Immature Granulocytes # (auto) 0.03 K/uL (0.00-0.02); Immature Granulocytes % (auto) 0.4 %; Lymphocytes # (auto) 0.95 K/uL (1.2-3.4); Lymphocytes % (auto) 12.1 %; Mean Corpuscular Volume 101.4 fL (80-100); Mean Platelet Volume 9.5 fL (7.4-10.4); Monocytes # (auto) 0.41 K/uL (0.11-0.59); Monocytes % (auto) 5.2 %; Neutrophils # (auto) 6.24 K/uL (1.4-6.5); Neutrophils % (auto) 79.7 %; Platelet Count 120 K/uL (130-400); RDW Coefficient of Variation 15.5 % (11.5-14.5); Red Blood Count 4.19 M/uL (4.7-6.1); White Blood Count 7.83 K/uL (4.8-10.8)
[2018-12-20 11:57] LABS: Mean Corpuscular Hgb Conc 34.4 g/dL (32-36)
[2018-12-20 12:11] LABS: Alanine Aminotransferase 78 U/L (12-78); Albumin Level 2.6 gm/dl (3.4-5.0); Aspartate Aminotransferase 104 U/L (15-37); BUN Creatinine Ratio 11.7 (10-20); Blood Urea Nitrogen 31 mg/dl (7-18); Calcium 8.5 mg/dl (8.5-10.1); Carbon Dioxide 24 mmol/L (21-32); Chloride 108 mmol/L (98-107); Creatinine Clr Calc Pharmacy 50.7 ml/min; Est GFR (African American) 31.5; Est GFR (Non-African American) 27.2; Glucose 107 mg/dl (70-99); Potassium 4.5 mmol/L (3.5-5.1); Sodium 138 mmol/L (136-145)
[2018-12-20 12:16] LABS: Albumin Globulin Ratio 0.5 (0.9-2); Alkaline Phosphatase 115 U/L (45-117); Bilirubin,Total 2.3 mg/dl (0.2-1); Globulin 5.1 gm/dl (2.5-4.0); Total Protein 7.7 gm/dl (6.4-8.2); Troponin I < 0.015 ng/ml (0-0.045)
[2018-12-20 13:08] LABS: HCO3 ABG 25 mmol/L (19-24); Oxygen Saturation ABG 85.9 % (90-95); PCO2 ABG 56 mmHg (35-46); PO2 ABG 51 mm/Hg (80-95); pH ABG 7.27 (7.35-7.45)
[2018-12-20 13:17] LABS: Allen Test Pos (Pos)
--- NOTE | 2018-12-20 13:42 | Hospitalist Progress Note ---
Date of Service December 20, 2018 Assessment & Plan (1) Sepsis: initially with fever and leukocytosis improved with Vanco and Zosyn and IV fluids sepsis resolved no organ failure, no shock (2) Acute kidney injury: Cr up to 2.69 later in the morning hold nephrotoxins fluids stopped as he had been on 125cc/hr since admission and Cr increasing gave Lasix 60mg IV x 1 due to hypoxia and pulmonary edema repeat BMP in the morning nephrology consulted (3) Bilateral lower leg cellulitis: marked improvement in the past 48 hours skin was red and hot on admission, it is cool to touch now, less red continue current regimen of Zosyn and Vanco, ID following anticipate PO antibiotics tomorrow (4) Bleeding from wound: bleeding started on 12/19 and then subsided INR reversed more bleeding today asked RN to page general surgery as they could possibly place some sutures in the wound (5) CKD (chronic kidney disease) stage 3, GFR 30-59 ml/min: Cr up to 2.6 today, now with JUAREZ, see above will repeat tomorrow making adequate urine (6) Supratherapeutic INR: was > 3 on admission, down to 1.6 today after Vitamin K (7) Transaminitis: improvement in the first 24 hours likely due to acute illness, has h/o hepatitis C resolved (8) Cerebrovascular accident (CVA): permanent weakness on right side cannot ambulate, uses wheelchair (9) Hypoventilation: RR < 10 at times and developed hypoxia ABG showed both hypoxia and hypercapnia reversed with Narcan 0.4mg IV, patient woke up, RR back into 16-22 ranger (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: takes Oxycodone 30mg TID likely his levels built up due to JUAREZ and less urine output hold Oxycodone reversed with Narcan with success may require further doses of Narcan (11) Chronic diastolic (congestive) heart failure: mild acute heart failure, due to volume overload with fluids at 125cc/hr and JUAREZ making less urine CXR on 12/20 with pulmonary edema and patient with hypoxia gave Lasix 60mg IV x 1 dose, follow for response (12) Hirschsprung's disease: (13) DM type 2 (diabetes mellitus, type 2): (14) Diabetic nephropathy: Subjective patient more lethargic and confused today having a difficult time eating and difficult time dialing his phone he said he slept okay with his BIPAP normally he says he feels energized in the morning but has more lethargy checked stat labs, CBC unremarkable, BMP shows Cr up to 2.69, ammonia only 37 lactic acid 0.8, troponin < 0.015 ABG showed respiratory acidosis with pH 7.27 and pCO2 56, hypoxic with paO2 51 EKG with normal sinus rhythm, no ischemic changes CXR showed pulmonary edema ordered dose of Narcan 0.4mg IV, patient became more alert and no longer needed the BIPAP this was hypoventilation due to the Oxycodone, reversed with the Narcan Review of Systems Review of Systems: All systems reviewed & are unremarkable except as noted in HPI & below Constitutional: + fatigue, + weakness and + daytime sleepiness; no fever, no chills, no sweats, no body aches and no malaise Respiratory: no cough and no dyspnea Cardiovascular: no chest pain, no chest pain at rest, no palpitations, no syncope and no edema Gastrointestinal: no abdominal pain, no nausea, no vomiting, no constipation and no diarrhea/loose stools Integumentary: + wounds (more bleedin in the afternoon) Neurologic: + confusion Physical Exam Constitutional: WD/WN, vitals as above + obese and + lethargic; no acute distress Eyes: PERRL, conjunctivae normal, anicteric sclerae ENMT: external ear and nose normal, oropharynx normal Neck: trachea midline, no thyromegaly Respiratory: normal respiratory effort, lungs clear to auscultation (slow RR, reversed with Narcan) Cardiovascular: RRR, no murmur, no edema Gastrointestinal (Abdomen): normal bowel sounds, soft, nontender, no hepatosplenomegaly Musculoskeletal: Head/Neck/Chest: normocephalic and head atraumatic Extremities: + abnormal strength (right leg and right arm weakness from prior stroke); no cyanosis, no clubbing and no petechiae Gait: + abnormal gait (cannot ambulate) Skin: + rash (bilateral lower leg erythema improved, cool to touch) and + wound (left mucous fistula site, has bleeding, dark blood) Neurologic: patellar DTR's 2+ bilat, sensation intact and PERRL, EOMI, accommodation nl, no face palsy, no dysarthria Psychiatric: A+Ox3, euthymic affect Lymphatic: no cervical or axillary lymphadenopathy Results & Data Vital Signs (Past 12 Hours) Vital Signs Temp Pulse Pulse Resp BP Pulse Ox 12/20/18 13:21 92 H 12 91 12/20/18 12:48 36.3 C L 80 17 129/82 90 12/20/18 08:17 36.7 C 78 16 136/78 96 12/20/18 03:14 37.0 C 78 19 138/85 90 Laboratory Results Laboratory Results - last 24 hr 12/19/18 12/19/18 12/19/18 13:44 16:27 21:11 WBC RBC Hgb Hct MCV MCH MCHC RDW Std Deviation RDW Coeff of Lorenzo Plt Count MPV Immature Gran % (Auto) Neut % (Auto) Lymph % (Auto) Rawlins % (Auto) Eos % (Auto) Baso % (Auto) Immature Gran # (Auto) Neut # (Auto) Lymph # (Auto) Rawlins # (Auto) Eos # (Auto) Baso # (Auto) PT INR ABG pH ABG pCO2 ABG pO2 ABG HCO3 ABG O2 Saturation ABG Base Excess Kota Test Barometric Pressure Oxygen Given Sodium Potassium Chloride Carbon Dioxide Anion Gap BUN Creatinine Est Cr Clr Drug Dosing Est GFR ( Amer) Est GFR (Non-Af Amer) BUN/Creatinine Ratio Glucose POC Glucose 214 H 252 H Lactate Calcium Total Bilirubin Direct Bilirubin AST ALT Alkaline Phosphatase Ammonia Troponin I Total Protein Albumin Globulin Albumin/Globulin Ratio Vancomycin Trough 26.5 Random Vancomycin 12/20/18 12/20/18 12/20/18 07:05 07:05 07:05 WBC 7.29 RBC 4.15 L Hgb 14.6 Hct 42.1 MCV 101.4 H MCH 35.2 H MCHC 34.7 RDW Std Deviation 58.2 H RDW Coeff of Lorenzo 15.5 H Plt Count 132 MPV 9.5 Immature Gran % (Auto) 0.4 Neut % (Auto) 67.6 Lymph % (Auto) 19.5 Rawlins % (Auto) 6.9 Eos % (Auto) 4.9 Baso % (Auto) 0.7 Immature Gran # (Auto) 0.03 H Neut # (Auto) 4.93 Lymph # (Auto) 1.42 Rawlins # (Auto) 0.50 Eos # (Auto) 0.36 Baso # (Auto) 0.05 PT 15.5 H INR 1.6 H ABG pH ABG pCO2 ABG pO2 ABG HCO3 ABG O2 Saturation ABG Base Excess Kota Test Barometric Pressure Oxygen Given Sodium 138 Potassium 4.0 Chloride 106 Carbon Dioxide 26 Anion Gap 6.0 BUN 28 H Creatinine 2.58 H D Est Cr Clr Drug Dosing 52.9 Est GFR ( Amer) 33.1 Est GFR (Non-Af Amer) 28.6 BUN/Creatinine Ratio 10.9 Glucose 115 H POC Glucose Lactate Calcium 8.5 Total Bilirubin 2.1 H Direct Bilirubin 1.0 H AST 88 H ALT 72 Alkaline Phosphatase 124 H Ammonia Troponin I Total Protein 7.5 Albumin 2.6 L Globulin Albumin/Globulin Ratio Vancomycin Trough Random Vancomycin 12/20/18 12/20/18 12/20/18 07:05 07:17 11:09 WBC RBC Hgb Hct MCV MCH MCHC RDW Std Deviation RDW Coeff of Lorenzo Plt Count MPV Immature Gran % (Auto) Neut % (Auto) Lymph % (Auto) Raw[place]ins % (Auto) Eos % (Auto) Baso % (Auto) Immature Gran # (Auto) Neut # (Auto) Lymph # (Auto) Raw[place]ins # (Auto) Eos # (Auto) Baso # (Auto) PT INR ABG pH ABG pCO2 ABG pO2 ABG HCO3 ABG O2 Saturation ABG Base Excess Kota Test Barometric Pressure Oxygen Given Sodium Potassium Chloride Carbon Dioxide Anion Gap BUN Creatinine Est Cr Clr Drug Dosing Est GFR ( Amer) Est GFR (Non-Af Amer) BUN/Creatinine Ratio Glucose POC Glucose 116 H 96 Lactate Calcium Total Bilirubin Direct Bilirubin AST ALT Alkaline Phosphatase Ammonia Troponin I Total Protein Albumin Globulin Albumin/Globulin Ratio Vancomycin Trough Random Vancomycin 18.1 12/20/18 12/20/18 12/20/18 11:39 11:39 11:39 WBC 7.83 RBC 4.19 L Hgb 14.6 Hct 42.5 MCV 101.4 H MCH 34.8 H MCHC 34.4 RDW Std Deviation 57.0 H RDW Coeff of Lorenzo 15.5 H Plt Count 120 L MPV 9.5 Immature Gran % (Auto) 0.4 Neut % (Auto) 79.7 Lymph % (Auto) 12.1 Rawlins % (Auto) 5.2 Eos % (Auto) 2.2 Baso % (Auto) 0.4 Immature Gran # (Auto) 0.03 H Neut # (Auto) 6.24 Lymph # (Auto) 0.95 L Rawlins # (Auto) 0.41 Eos # (Auto) 0.17 Baso # (Auto) 0.03 PT INR ABG pH ABG pCO2 ABG pO2 ABG HCO3 ABG O2 Saturation ABG Base Excess Kota Test Barometric Pressure Oxygen Given Sodium 138 Potassium 4.5 Chloride 108 H Carbon Dioxide 24 Anion Gap 6.0 BUN 31 H Creatinine 2.69 H Est Cr Clr Drug Dosing 50.7 Est GFR ( Amer) 31.5 Est GFR (Non-Af Amer) 27.2 BUN/Creatinine Ratio 11.7 Glucose 107 H POC Glucose Lactate Calcium 8.5 Total Bilirubin 2.3 H Direct Bilirubin AST 104 H ALT 78 Alkaline Phosphatase 115 Ammonia 37.0 H Troponin I < 0.015 Total Protein 7.7 Albumin 2.6 L Globulin 5.1 H Albumin/Globulin Ratio 0.5 L Vancomycin Trough Random Vancomycin 12/20/18 12/20/18 11:39 12:50 WBC RBC Hgb Hct MCV MCH MCHC RDW Std Deviation RDW Coeff of Lorenzo Plt Count MPV Immature Gran % (Auto) Neut % (Auto) Lymph % (Auto) Rawlins % (Auto) Eos % (Auto) Baso % (Auto) Immature Gran # (Auto) Neut # (Auto) Lymph # (Auto) Raw[place]ins # (Auto) Eos # (Auto) Baso # (Auto) PT INR ABG pH 7.27 L ABG pCO2 56 H ABG pO2 51 L ABG HCO3 25 H ABG O2 Saturation 85.9 L ABG Base Excess -2.8 Kota Test Pos Barometric Pressure 734.8 Oxygen Given BI-PAP Sodium Potassium Chloride Carbon Dioxide Anion Gap BUN Creatinine Est Cr Clr Drug Dosing Est GFR ( Amer) Est GFR (Non-Af Amer) BUN/Creatinine Ratio Glucose POC Glucose Lactate 0.8 Calcium Total Bilirubin Direct Bilirubin AST ALT Alkaline Phosphatase Ammonia Troponin I Total Protein Albumin Globulin Albumin/Globulin Ratio Vancomycin Trough Random Vancomycin Diagnostic Findings EKG: normal sinus rhythm, no ischemic changes CXR: pulmonary edema Medications Administered Current Inpatient Medications Acetaminophen (Tylenol) 650 mg PO Q4H PRN PRN Reason: Pain or Fever Stop: 01/17/19 06:19 Atenolol (Tenormin) 25 mg PO DAILY CLAUDIA Stop: 01/17/19 08:59 Last Admin: 12/20/18 08:41 Dose: 25 mg Documented by: Betamethasone/Clotrimazole (Lotrisone 1/0.5%) 1 appln EXT BID CLAUDIA Stop: 01/17/19 08:59 Last Admin: 12/20/18 08:44 Dose: 1 appln Documented by: Clotrimazole (Lotrimin 1%) 1 appln TOP BID CLAUDIA Stop: 01/17/19 08:59 Last Admin: 12/20/18 08:42 Dose: 1 appln Documented by: Colchicine (Colcrys) 0.6 mg PO DAILY CLAUDIA Stop: 01/17/19 08:59 Last Admin: 12/20/18 08:43 Dose: 0.6 mg Documented by: Febuxostat (Uloric) 80 mg PO DAILY CLAUDIA Stop: 01/17/19 08:59 Last Admin: 12/20/18 08:43 Dose: 80 mg Documented by: Ferrous Sulfate (Feosol) 325 mg PO BID CLAUDIA Stop: 01/17/19 08:59 Last Admin: 12/20/18 08:41 Dose: 325 mg Documented by: Furosemide (Lasix) 40 mg PO DAILY CLAUDIA Stop: 01/17/19 08:59 Last Admin: 12/18/18 08:09 Dose: 40 mg Documented by: Gabapentin (Neurontin) 600 mg PO TID [facility] Stop: 01/17/19 08:59 Last Admin: 12/20/18 08:41 Dose: 600 mg Documented by: Piperacillin Sod/Tazobactam (Sod 4.5 gm/ Dextrose) 120 mls @ 30 mls/hr IV Q8H [facility]; Protocol Stop: 12/28/18 09:59 Last Admin: 12/20/18 12:32 Dose: 28 mls/hr Documented by: Vancomycin HCl 1,500 mg/ (Sodium Chloride) 530 mls @ 200 mls/hr IV TODAY@1400 [facility] Stop: 12/20/18 16:38 Insulin Aspart (Novolog Flexpen) 0 units SC ACHS CLAUDIA Stop: 01/17/19 07:29 Last Admin: 12/20/18 12:33 Dose: Not Given Documented by: Insulin Glargine (Lantus) 138 units SQ BID [facility] Stop: 01/17/19 20:59 Last Admin: 12/20/18 08:43 Dose: 138 units Documented by: Ketoconazole (Nizoral 2%) 1 appln EXT BID CLAUDIA Stop: 12/28/18 08:59 Last Admin: 12/20/18 08:42 Dose: 1 appln Documented by: Lactulose (Chronulac) 30 gm PO BID CLAUDIA Stop: 01/17/19 08:59 Last Admin: 12/20/18 08:41 Dose: 30 gm Documented by: Magnesium Oxide (Mag-Ox) 400 mg PO DAILY CLAUDIA Stop: 01/17/19 08:59 Last Admin: 12/20/18 08:42 Dose: 400 mg Documented by: Miscellaneous Information (Consult) 1 ea N/A UD PRN PRN Reason: Consult Stop: 01/17/19 06:19 Miscellaneous Information (Consult) 1 ea N/A UD PRN PRN Reason: Consult Stop: 01/17/19 06:19 Oxycodone HCl (Roxicodone Immediate Rel) 30 mg PO TID CLAUDIA Stop: 01/01/19 08:59 Last Admin: 12/20/18 08:46 Dose: 30 mg Documented by: Pantoprazole Sodium (Protonix) 40 mg PO DAILY CLAUDIA Stop: 01/17/19 08:59 Last Admin: 12/20/18 08:41 Dose: 40 mg Documented by: Potassium Chloride (Klor-Con M20) 20 meq PO DAILY CLAUDIA Stop: 01/17/19 08:59 Last Admin: 12/20/18 08:43 Dose: 20 meq Documented by:
--- NOTE | 2018-12-20 13:55 | XRay Report ---
SINGLE VIEW CHEST CLINICAL HISTORY: Hypoxia. FINDINGS: An AP, portable, upright chest radiograph is compared to study dated 12/18/2018. The examina tion is degraded by portable technique and patient rotation. The heart is enlarged and there is athe rosclerotic calcification of the thoracic ureter. There is pulmonary vascular congestion. Bibasilar a irspace opacities are noted. No large pleural effusion or pneumothorax is seen. The skeletal structur es appear osteopenic. The bony thorax is grossly intact. IMPRESSION: 1. Cardiomegaly with pulmonary vascular congestion. 2. Bibasilar airspace opacities likely represent atelectasis. Clinical correlation will be required. 3. No large pleural effusion is identified. Electronically signed by: Paul Zamarripa M.D. 12/20/2018 1:53 PM
[2018-12-20] MEDS ORDERED: VANCOMYCIN HCL 1,500 MG in SODIUM CHLORIDE 0.9% 500 ML IV SCH (14:00)
[2018-12-20] MEDS ORDERED: NALOXONE HCL 0.4 MG/1 ML VIAL/CARP IV STA (14:10)
[2018-12-20] MEDS ORDERED: FUROSEMIDE 60 MG in SYRINGE 0 ML IV ONE (14:15)
--- NOTE | 2018-12-20 14:22 | Infectious Disease Progress Nt ---
Date of Service December 20, 2018 Assessment & Plan (1) Sepsis: 48-year-old male with complicated medical history with diabetes, heart failure, chronic kidney disease, now presents with sepsis with bilateral lower extremity cellulitis. Current treatment with vancomycin and Zosyn appropriate pending further culture results. Length of IV antibiotics will be determined by culture results and clinical response. Will follow. (2) Bilateral lower leg cellulitis: Subjective Patient seen in follow-up for bilateral lower extremity cellulitis. Provement on vancomycin and Zosyn. Having bleeding from mucous fistula with elevated INR. Surgery following. No fever. Review of Systems Review of Systems: All systems reviewed & are unremarkable except as noted in HPI & below Physical Exam Constitutional: WD/WN, vitals as above + obese and comfortable; no acute distress Eyes: PERRL, conjunctivae normal, anicteric sclerae ENMT: external ear and nose normal, oropharynx normal Neck: trachea midline, no thyromegaly neck nontender Respiratory: normal respiratory effort, lungs clear to auscultation normal percussion; does not use accessory muscles Cardiovascular: Rate/Rhythm: regular rate and regular rhythm Heart Sounds: normal S1 and normal S2; no gallop, no murmur and no cardiac rub Vessels: normal peripheral pulses; no JVD Gastrointestinal (Abdomen): normal bowel sounds, soft, nontender, no hepatosplenomegaly Musculoskeletal: Head/Neck/Chest: normocephalic, head atraumatic and neck supple Spine: thoracic spine normal to inspection and lumbar spine normal to inspection; no cervical spinal tenderness Skin: normal turgor and + erythema (Both lower extremities below knees); no rashes Neurologic: moves all extremities and awake Psychiatric: A+Ox3, euthymic affect Orientation: cooperative Lymphatic: no cervical or axillary lymphadenopathy no inguinal lymphadenopathy Results & Data Vital Signs (Past 12 Hours) Vital Signs Temp Pulse Pulse Resp BP Pulse Ox 12/20/18 13:21 92 H 12 91 12/20/18 12:48 36.3 C L 80 17 129/82 90 12/20/18 08:17 36.7 C 78 16 136/78 96 12/20/18 03:14 37.0 C 78 19 138/85 90 Laboratory Results Short CBC 12/20/18 12/20/18 Range/Units 07:05 11:39 WBC 7.29 7.83 (4.8-10.8) K/uL Hgb 14.6 14.6 (14.0-18.0) g/dL Hct 42.1 42.5 (42-52) % Plt Count 132 120 L (130-400) K/uL BMP 12/20/18 12/20/18 07:05 11:39 Sodium 138 138 Potassium 4.0 4.5 Chloride 106 108 H Carbon Dioxide 26 24 BUN 28 H 31 H Creatinine 2.58 H D 2.69 H Glucose 115 H 107 H Calcium 8.5 8.5 Cardiac Enzymes 12/20/18 Range/Units 11:39 Troponin I < 0.015 (0-0.045) ng/ml Liver Function 12/20/18 12/20/18 Range/Units 07:05 11:39 Total Bilirubin 2.1 H 2.3 H (0.2-1) mg/dl Direct Bilirubin 1.0 H (0-0.2) mg/dl AST 88 H 104 H (15-37) U/L ALT 72 78 (12-78) U/L Alkaline Phosphatase 124 H 115 (45-117) U/L Albumin 2.6 L 2.6 L (3.4-5.0) gm/dl Diagnostic Findings Microbiology 12/18/18 02:54 Urine,Clean Catch Urine Culture - Final Group B Beta Strep 12/18/18 02:54 Blood Blood Culture - Preliminary No growth to date. 12/18/18 02:38 Blood Blood Culture - Preliminary No growth to date.
[2018-12-20] MEDS ORDERED: SILVER NITR/POTASSIUM NITRATE APPLICATOR ONE (17:18)
[2018-12-21] MEDS: KETOCONAZOLE 2% CR 15 GM TUBE EXT SCH ×3 (00:08→21:30)
[2018-12-21] MEDS: PIPERACILLIN/TAZOBACTAM 4.5 GM in DEXTROSE 5% 100 ML IV SCH ×2 (02:52→10:26)
[2018-12-21 06:07] LABS: INR 1.4 (0.9-1.1); Prothrombin Time 14.3 Seconds (9.0-12.0)
[2018-12-21 06:29] LABS: Albumin Level 2.3 gm/dl (3.4-5.0); BUN Creatinine Ratio 11.5 (10-20); Calcium 8.5 mg/dl (8.5-10.1); Creatinine Clr Calc Pharmacy 51.2 ml/min; Est GFR (African American) 32.1; Est GFR (Non-African American) 27.7; Phosphorus 4.5 mg/dl (2.5-4.9); Potassium 3.9 mmol/L (3.5-5.1)
--- NOTE | 2018-12-21 07:40 | Nephrology Progress Note ---
Date of Service December 21, 2018 Assessment & Plan (1) Acute kidney injury: Hema admitted to the hospital with wound infection sepsis. Has baseline stage III CKD, baseline creatinine 1.5-1.7. Developed acute kidney injury over last 2 days, creatinine increased from 1.6 on admission to 2.6 this morning. Has proteinuria and hematuria. Chronic kidney disease most likely secondary to microvascular disease. Acute kidney injury in the setting of sepsis and hypertension, most likely prerenal versus ATN. Volume status is difficult to assess considering patient's body habitus, has significant lower extremity edema. Was on IV fluids before which is currently discontinued and blood pressure has been stable over without any hypotensive episode overnight. Cannot exclude possibility for postrenal obstruction with history of bilateral nephrolithiasis however seems to be less likely, has Velazquez catheter with some urine in Velazquez bag. Can't exclude possibility for glomerular diseases include proteinuria and hematuria and prior history of hepatitis and IV drug abuse. Renal function stable, no improvement, great UO, net negative >1 L --monitor renal function urine output, if continues to have significant urine output and risk for volume depletion would consider IV fluid. Continue to hold diuretics for now -- monitor renal function and urine output closely --avoid nephrotoxic medications --would hold diuretics for now --monitor Vanco trough level Will follow Thank you for allowing me to participate in your patient's care. It was a pleasure to see Hema (2) CKD (chronic kidney disease) stage 3, GFR 30-59 ml/min: (3) Sepsis: (4) Wound infection: (5) Nephrolithiasis: Subjective Justice was seen examined in his room this morning. Overall clinically stable. Blood pressure well controlled. Has been having significant urine output without to being on diuretics, negative almost 3 liters. Renal function relatively stable without much improvement. Electrolyte Physical Exam Constitutional: + morbidly obese and cooperative; not in distress and not lethargic Respiratory: normal respiratory effort, lungs clear to auscultation Cardiovascular: Rate/Rhythm: regular rate and regular rhythm Heart Sounds: normal S1 and normal S2 Neurologic: patellar DTR's 2+ bilat, sensation intact Psychiatric: A+Ox3, euthymic affect Results & Data Vital Signs (Past 12 Hours) Vital Signs Temp Pulse Pulse Resp BP Pulse Ox 12/21/18 07:09 36.5 C 71 18 135/76 95 12/21/18 06:02 81 05/03/19 04:00 36.8 C 75 20 131/80 93 12/21/18 00:00 37.5 C 78 19 111/85 93 12/20/18 21:38 98 H 12 97 12/20/18 20:00 36.9 C 74 12 126/85 98
[2018-12-21] MEDS: INSULIN ASPART 100 UNITS/ML 3 ML PEN SC SCH ×4 (07:58→21:22)
[2018-12-21] MEDS: INSULIN GLARGINE 100 UNIT/ML VIAL SQ SCH ×2 (10:19→21:25)
[2018-12-21] MEDS: LACTULOSE SYRUP 30 GM/45 ML UDP PO SCH ×2 (10:35→21:15)
[2018-12-21] MEDS: COLCHICINE 0.6 MG TAB PO SCH (10:36)
[2018-12-21] MEDS: FEBUXOSTAT 40 MG TABLET PO SCH (10:37)
[2018-12-21] MEDS: PANTOprazole 40 MG TAB PO SCH (10:38)
[2018-12-21] MEDS: ATENOLOL 25 MG TABLET PO SCH (10:38)
[2018-12-21] MEDS: GABAPENTIN 600 MG TAB PO SCH ×2 (10:38→13:09)
[2018-12-21] MEDS: MAGNESIUM OXIDE 400 MG TAB PO SCH (10:39)
[2018-12-21] MEDS: FERROUS SULFATE 325 MG TAB PO SCH ×2 (10:39→21:14)
[2018-12-21] MEDS: POTASSIUM CHLORIDE 20 MEQ TABCR PO SCH (10:39)
[2018-12-21] MEDS: CLOTRIMAZOLE/BETAMETHASONE CR 15 GM TUBE EXT SCH ×2 (10:44→21:30)
[2018-12-21] MEDS: CLOTRIMAZOLE 1% CR 15 GM TUBE TOP SCH ×3 (10:44→23:55)
[2018-12-21] MEDS ORDERED: GLUCOSE 40% GEL 15 GM TUBE PO PRN (14:00)
[2018-12-21] MEDS ORDERED: CARBOHYDRATES FOR HYPOGLYCEMIA PO PRN (14:00)
[2018-12-21] MEDS ORDERED: GLUCOSE 10 TABS/TUBE PO PRN (14:00)
[2018-12-21] MEDS ORDERED: DEXTROSE 50% 50 ML SYRINGE IV PRN (14:00)
[2018-12-21] MEDS ORDERED: GLUCAGON FOR INJ 1 MG VIAL IM PRN (14:00)
[2018-12-21 15:12] LABS: BUN Creatinine Ratio 11.5 (10-20); Calcium 8.6 mg/dl (8.5-10.1); Creatinine Clr Calc Pharmacy 53.6 ml/min; Est GFR (African American) 33.9; Est GFR (Non-African American) 29.3; Potassium 4.6 mmol/L (3.5-5.1)
--- NOTE | 2018-12-21 15:23 | Hospitalist Progress Note ---
Date of Service December 21, 2018 Assessment & Plan (1) Sepsis: initially with fever and leukocytosis improved with Vanco and Zosyn and IV fluids sepsis resolved no organ failure, no shock change abx to Doxycycline and Keflex x 10 more days transfer to medical floor (2) Acute kidney injury: Cr trending down slightly to 2.5 this afternoon hold nephrotoxins fluids stopped as he had been on 125cc/hr since admission and Cr increasing no further diuretics planned, received Lasix 60mg IV x 1 on 12/20 for pulmonary edema repeat BMP in the morning nephrology consulted (3) Bilateral lower leg cellulitis: marked improvement in the first 48 hours skin was red and hot on admission, it is cool to touch now, redness gone change to Doxy and Keflex x 10 more days (4) Bleeding from wound: bleeding started on 12/19 and then subsided INR reversed, 1.3 today small bleeding today no intervention planned at this time Hb stable, bleeding not significant (5) CKD (chronic kidney disease) stage 3, GFR 30-59 ml/min: Cr down to 2.5 today, JUAREZ slightly improving will repeat tomorrow making adequate urine (6) Supratherapeutic INR: was > 3 on admission, down to 1.3 today after Vitamin K (7) Transaminitis: improvement in the first 24 hours likely due to acute illness, has h/o hepatitis C resolved (8) Cerebrovascular accident (CVA): permanent weakness on right side cannot ambulate, uses wheelchair (9) Hypoventilation: RR < 10 at times and developed hypoxia on 12/20 ABG showed both hypoxia and hypercapnia reversed with Narcan 0.4mg IV, patient woke up, RR back into 16-22 range holding Oxycodone, breathing stable, alert (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: takes Oxycodone 30mg TID likely his levels built up due to JUAREZ and less urine output hold Oxycodone for now reversed with Narcan with success alert today (11) Chronic diastolic (congestive) heart failure: mild acute heart failure on 12/20, due to volume overload with fluids at 125cc/hr and JUAREZ CXR on 12/20 with pulmonary edema and patient with hypoxia acute component resolved with Lasix 60mg IV, no further doses needed (12) Hirschsprung's disease: (13) DM type 2 (diabetes mellitus, type 2): sugars running on the low side for now cut Lantus dose in half to 70 units BID Novolog SS (14) Diabetic nephropathy: Subjective patient much more alert today, completely off the narcotics pain is controlled eating well, breathing stable had another episode of bleeding from his mucous fistula, resolved with pressure reviewed labs, Cr down to 2.6 and then down a little further in the afternoon to 2.[address] Belcher, appreciate her recommendations discussed with Dr. Brennan, will switch to Doxycycline and Keflex for the cellulitis, 10 more days will transfer to medical floor, discussed with patient that he is not stable for discharge due to renal function Review of Systems Review of Systems: All systems reviewed & are unremarkable except as noted in HPI & below Constitutional: + fatigue and + weakness; no fever, no chills and no sweats Respiratory: no cough and no dyspnea Cardiovascular: no chest pain Gastrointestinal: + problem reported (bleeding from wound) Physical Exam Constitutional: WD/WN, vitals as above + obese; no acute distress Eyes: PERRL, conjunctivae normal, anicteric sclerae ENMT: external ear and nose normal, oropharynx normal Neck: trachea midline, no thyromegaly Respiratory: normal respiratory effort, lungs clear to auscultation (slow RR, reversed with Narcan) Cardiovascular: RRR, no murmur, no edema Gastrointestinal (Abdomen): normal bowel sounds, soft, nontender, no hepatosplenomegaly Musculoskeletal: Head/Neck/Chest: normocephalic and head atraumatic Extremities: + abnormal strength (right leg and right arm weakness from prior stroke); no cyanosis, no clubbing and no petechiae Gait: + abnormal gait (cannot ambulate) Skin: + rash (bilateral lower leg erythema improved, cool to touch) and + wound (left mucous fistula site, has bleeding, dark blood) Neurologic: patellar DTR's 2+ bilat, sensation intact and PERRL, EOMI, accommodation nl, no face palsy, no dysarthria Psychiatric: A+Ox3, euthymic affect Lymphatic: no cervical or axillary lymphadenopathy Results & Data Vital Signs (Past 12 Hours) Vital Signs Temp Pulse Pulse Resp BP Pulse Ox 12/21/18 12:56 36.6 C 73 20 144/75 H 92 12/21/18 08:00 70 05/03/19 07:09 36.5 C 71 18 135/76 95 12/21/18 06:02 81 12/21/18 04:00 36.8 C 75 20 131/80 93 Laboratory Results Laboratory Results - last 24 hr 12/20/18 12/20/18 12/21/18 16:33 20:21 02:02 PT INR Sodium Potassium Chloride Carbon Dioxide Anion Gap BUN Creatinine Est Cr Clr Drug Dosing Est GFR ( Amer) Est GFR (Non-Af Amer) BUN/Creatinine Ratio Glucose POC Glucose 105 H 73 162 H Calcium Phosphorus Albumin 12/21/18 12/21/18 12/21/18 05:31 05:31 07:31 PT 14.3 H INR 1.4 H Sodium 139 Potassium 3.9 Chloride 108 H Carbon Dioxide 27 Anion Gap 4.0 BUN 31 H Creatinine 2.65 H Est Cr Clr Drug Dosing 51.2 Est GFR ( Amer) 32.1 Est GFR (Non-Af Amer) 27.7 BUN/Creatinine Ratio 11.5 Glucose 108 H POC Glucose 89 Calcium 8.5 Phosphorus 4.5 Albumin 2.3 L 12/21/18 12/21/18 11:22 14:22 PT INR Sodium 138 Potassium 4.6 D Chloride 106 Carbon Dioxide 22 Anion Gap 10.0 BUN 29 H Creatinine 2.53 H Est Cr Clr Drug Dosing 53.6 Est GFR ( Amer) 33.9 Est GFR (Non-Af Amer) 29.3 BUN/Creatinine Ratio 11.5 Glucose 223 H POC Glucose 208 H Calcium 8.6 Phosphorus Albumin Medications Administered Current Inpatient Medications Acetaminophen (Tylenol) 650 mg PO Q4H PRN PRN Reason: Pain or Fever Stop: 01/17/19 06:19 Atenolol (Tenormin) 25 mg PO DAILY [facility] Stop: 01/17/19 08:59 Last Admin: 12/21/18 10:38 Dose: 25 mg Documented by: Betamethasone/Clotrimazole (Lotrisone 1/0.5%) 1 appln EXT BID [facility] Stop: 01/17/19 08:59 Last Admin: 12/21/18 10:44 Dose: Not Given Documented by: Cephalexin HCl (Keflex) 500 mg PO BID [facility]; Protocol Stop: 12/31/18 20:59 Clotrimazole (Lotrimin 1%) 1 appln TOP BID [facility] Stop: 01/17/19 08:59 Last Admin: 12/21/18 10:46 Dose: Not Given Documented by: Colchicine (Colcrys) 0.6 mg PO DAILY [facility] Stop: 01/17/19 08:59 Last Admin: 12/21/18 10:36 Dose: 0.6 mg Documented by: Dextrose (Dextrose 50%) 25 - 50 ml IV UD PRN; Protocol PRN Reason: Hypoglycemia Protocol Stop: 01/20/19 13:59 Doxycycline Hyclate (Vibramycin) 100 mg PO BID@0600,1800 [facility] Stop: 12/31/18 17:59 Febuxostat (Uloric) 80 mg PO DAILY [facility] Stop: 01/17/19 08:59 Last Admin: 12/21/18 10:37 Dose: 80 mg Documented by: Ferrous Sulfate (Feosol) 325 mg PO BID [facility] Stop: 01/17/19 08:59 Last Admin: 12/21/18 10:39 Dose: 325 mg Documented by: Gabapentin (Neurontin) 600 mg PO TID [facility] Stop: 01/17/19 08:59 Last Admin: 12/21/18 13:09 Dose: Not Given Documented by: Glucagon (Glucagen) 1 mg IM UD PRN; Protocol PRN Reason: Hypoglycemia Protocol Stop: 01/20/19 13:59 Glucose (Glucose 40%) 15 - 30 gm PO UD PRN; Protocol PRN Reason: Hypoglycemia Protocol Stop: 01/20/19 13:59 Glucose (Dex4 Glucose) 4 - 8 tabs PO UD PRN; Protocol PRN Reason: Hypoglycemia Protocol Stop: 01/20/19 13:59 Insulin Aspart (Novolog Flexpen) 0 units SC ACHS [facility] Stop: 01/17/19 07:29 Last Admin: 12/21/18 12:08 Dose: 8 units Documented by: Insulin Glargine (Lantus) 70 units SQ BID [facility] Stop: 01/20/19 20:59 Ketoconazole (Nizoral 2%) 1 appln EXT BID [facility] Stop: 12/28/18 08:59 Last Admin: 12/21/18 10:42 Dose: Not Given Documented by: Lactulose (Chronulac) 30 gm PO BID [facility] Stop: 01/17/19 08:59 Last Admin: 12/21/18 10:35 Dose: 30 gm Documented by: Magnesium Oxide (Mag-Ox) 400 mg PO DAILY [facility] Stop: 01/17/19 08:59 Last Admin: 12/21/18 10:39 Dose: 400 mg Documented by: Miscellaneous (Carbohydrates For Hypoglycemia) 15 - 30 gm PO UD PRN PRN Reason: Hypoglycemia Treatment Stop: 01/20/19 13:59 Pantoprazole Sodium (Protonix) 40 mg PO DAILY [facility] Stop: 01/17/19 08:59 Last Admin: 12/21/18 10:38 Dose: 40 mg Documented by: Potassium Chloride (Klor-Con M20) 20 meq PO DAILY [facility] Stop: 01/17/19 08:59 Last Admin: 12/21/18 10:39 Dose: 20 meq Documented by:
--- NOTE | 2018-12-21 15:45 | Infectious Disease Progress Nt ---
Date of Service December 21, 2018 Assessment & Plan (1) Sepsis: 48-year-old male with complicated medical history with diabetes, heart failure, chronic kidney disease, with sepsis with bilateral lower extremity cellulitis. Has responded well to IV antibiotics, to transition to oral antibiotics today with doxycycline and cephalexin. (2) Bilateral lower leg cellulitis: Subjective Patient seen in follow-up for lower extremity cellulitis. Continues to improve, offers no new complaints today. Remains afebrile. Review of Systems Review of Systems: All systems reviewed & are unremarkable except as noted in HPI & below Physical Exam Constitutional: WD/WN, vitals as above + obese and comfortable; no acute distress Eyes: PERRL, conjunctivae normal, anicteric sclerae ENMT: external ear and nose normal, oropharynx normal Neck: trachea midline, no thyromegaly neck nontender Respiratory: normal respiratory effort, lungs clear to auscultation normal percussion; does not use accessory muscles Cardiovascular: Rate/Rhythm: regular rate and regular rhythm Heart Sounds: normal S1 and normal S2; no gallop, no murmur and no cardiac rub Vessels: normal peripheral pulses; no JVD Gastrointestinal (Abdomen): normal bowel sounds, soft, nontender, no hepatosplenomegaly Musculoskeletal: Head/Neck/Chest: normocephalic, head atraumatic and neck supple Spine: thoracic spine normal to inspection and lumbar spine normal to inspection; no cervical spinal tenderness Skin: normal turgor and + erythema (Both lower extremities below knees); no rashes Neurologic: moves all extremities and awake Psychiatric: A+Ox3, euthymic affect Orientation: cooperative Lymphatic: no cervical or axillary lymphadenopathy no inguinal lymphadenopathy Results & Data Vital Signs (Past 12 Hours) Vital Signs Temp Pulse Pulse Resp BP Pulse Ox 12/21/18 15:33 36.6 C 72 20 135/77 90 12/21/18 12:56 36.6 C 73 20 144/75 H 92 12/21/18 08:00 70 12/21/18 07:09 36.5 C 71 18 135/76 95 12/21/18 06:02 81 12/21/18 04:00 36.8 C 75 20 131/80 93 Laboratory Results [facility] 12/21/18 12/21/18 05:31 14:22 Sodium 139 138 Potassium 3.9 4.6 D Chloride 108 H 106 Carbon Dioxide 27 22 BUN 31 H 29 H Creatinine 2.65 H 2.53 H Glucose 108 H 223 H Calcium 8.5 8.6 Liver Function 12/21/18 Range/Units 05:31 Albumin 2.3 L (3.4-5.0) gm/dl Diagnostic Findings Microbiology 12/18/18 02:54 Urine,Clean Catch Urine Culture - Final Group B Beta Strep 12/18/18 02:54 Blood Blood Culture - Preliminary No growth to date. 12/18/18 02:38 Blood Blood Culture - Preliminary No growth to date.
[2018-12-21] MEDS: DOXYCYCLINE HYCLATE 100 MG CAP PO SCH (18:31)
[2018-12-21] MEDS ORDERED: cephALEXin 250 MG CAP PO SCH (21:00)
[2018-12-21] MEDS: cephALEXin 500 MG CAP PO SCH (21:16)
[2018-12-22] MEDS: CLOTRIMAZOLE 1% CR 15 GM TUBE TOP SCH ×2 (04:00→08:45)
[2018-12-22 06:06] LABS: Basophils # (auto) 0.04 K/uL (0-0.2); Basophils % (auto) 0.7 %; Eosinophils # (auto) 0.22 K/uL (0-0.5); Eosinophils % (auto) 3.9 %; Hematocrit (blood only) 41.6 % (42-52); Hemoglobin 14.8 g/dL (14.0-18.0); Immature Granulocytes # (auto) 0.03 K/uL (0.00-0.02); Immature Granulocytes % (auto) 0.5 %; Lymphocytes # (auto) 1.33 K/uL (1.2-3.4); Lymphocytes % (auto) 23.6 %; Mean Corpuscular Hgb Conc 35.6 g/dL (32-36); Mean Corpuscular Volume 100.7 fL (80-100); Mean Platelet Volume 9.4 fL (7.4-10.4); Monocytes # (auto) 0.27 K/uL (0.11-0.59); Monocytes % (auto) 4.8 %; Neutrophils # (auto) 3.74 K/uL (1.4-6.5); Neutrophils % (auto) 66.5 %; Platelet Count 138 K/uL (130-400); RDW Coefficient of Variation 14.7 % (11.5-14.5); RDW Standard Deviation 53.7 fL (36.4-46.3); Red Blood Count 4.13 M/uL (4.7-6.1); White Blood Count 5.63 K/uL (4.8-10.8)
[2018-12-22 06:42] LABS: Albumin Level 2.4 gm/dl (3.4-5.0); BUN Creatinine Ratio 12.4 (10-20); Calcium 8.7 mg/dl (8.5-10.1); Creatinine Clr Calc Pharmacy 62.8 ml/min; Est GFR (Non-African American) 35.4; Potassium 3.7 mmol/L (3.5-5.1)
[2018-12-22] MEDS: DOXYCYCLINE HYCLATE 100 MG CAP PO SCH (06:51)
[2018-12-22] MEDS: GABAPENTIN 600 MG TAB PO SCH (07:01)
[2018-12-22] MEDS: PANTOprazole 40 MG TAB PO SCH (08:41)
[2018-12-22] MEDS: GABAPENTIN 300 MG CAP PO SCH ×2 (08:41→12:32)
[2018-12-22] MEDS: FERROUS SULFATE 325 MG TAB PO SCH (08:42)
[2018-12-22] MEDS: LACTULOSE SYRUP 30 GM/45 ML UDP PO SCH (08:42)
[2018-12-22] MEDS: POTASSIUM CHLORIDE 20 MEQ TABCR PO SCH (08:42)
[2018-12-22] MEDS: COLCHICINE 0.6 MG TAB PO SCH (08:43)
[2018-12-22] MEDS: ATENOLOL 25 MG TABLET PO SCH (08:43)
[2018-12-22] MEDS: MAGNESIUM OXIDE 400 MG TAB PO SCH (08:44)
[2018-12-22] MEDS: cephALEXin 500 MG CAP PO SCH (08:44)
[2018-12-22] MEDS: FEBUXOSTAT 40 MG TABLET PO SCH (08:44)
[2018-12-22] MEDS: KETOCONAZOLE 2% CR 15 GM TUBE EXT SCH (08:45)
[2018-12-22] MEDS: CLOTRIMAZOLE/BETAMETHASONE CR 15 GM TUBE EXT SCH (08:45)
[2018-12-22] MEDS: INSULIN GLARGINE 100 UNIT/ML VIAL SQ SCH (08:46)
[2018-12-22] MEDS: INSULIN ASPART 100 UNITS/ML 3 ML PEN SC SCH ×2 (08:53→12:33)
[2018-12-22] MEDS ORDERED: ONDANSETRON INJ 2 MG/ML 2 ML VIAL IV PRN (09:58)
--- NOTE | 2018-12-22 12:11 | Nephrology Progress Note ---
Date of Service December 22, 2018 Assessment & Plan (1) Acute kidney injury: Hema admitted to the hospital with wound infection sepsis. Has baseline stage III CKD, baseline creatinine 1.5-1.7. Developed acute kidney injury over last 2 days, creatinine increased from 1.6 on admission to 2.6 this morning. Has proteinuria and hematuria. Chronic kidney disease most likely secondary to microvascular disease. Acute kidney injury in the setting of sepsis and hypertension, most likely prerenal versus ATN. Volume status is difficult to assess considering patient's body habitus, has significant lower extremity edema. Was on IV fluids before which is currently discontinued and blood pressure has been stable over without any hypotensive episode overnight. Cannot exclude possibility for postrenal obstruction with history of bilateral nephrolithiasis however seems to be less likely, has Velazquez catheter with some urine in Velazquez bag. Can't exclude possibility for glomerular diseases include proteinuria and hematuria and prior history of hepatitis and IV drug abuse. Renal function stable, creatinine slightly improved although not at baseline. great UO, net negative >1 L --okay to be discharged with close outpatient monitoring, suggest lab early next week and then weekly until kidney function back to baseline --avoid nephrotoxic medications Will follow (2) CKD (chronic kidney disease) stage 3, GFR 30-59 ml/min: (3) Sepsis: (4) Wound infection: (5) Nephrolithiasis: Subjective Hema Was seen examined in his room this morning. Overall he is feeling better. Blood pressure well controlled. Renal function slightly improved and stable. Electrolyte acceptable. Remain non-oliguric. Physical Exam Constitutional: + morbidly obese and cooperative; not in distress and not lethargic Respiratory: normal respiratory effort, lungs clear to auscultation Cardiovascular: Rate/Rhythm: regular rate and regular rhythm Heart Sounds: normal S1 and normal S2 Neurologic: patellar DTR's 2+ bilat, sensation intact Psychiatric: A+Ox3, euthymic affect Results & Data Vital Signs (Past 12 Hours) Vital Signs Temp Pulse Resp BP BP Pulse Ox 12/22/18 08:40 68 130/73 12/22/18 07:36 36.3 C L 68 16 145/78 H 97
[2018-12-22 12:24] VITALS: BP 156/83; PULSE 74; TEMP 97.7; O2SAT 92
--- NOTE | 2018-12-22 16:21 | Discharge Summary ---
Date of Service December 22, 2018 Admission HPI Per Admitting Provider 48y/o M with complex medical history including endocarditis, mitral valve repair, diastolic CHF, pulmonary HTN, DM II, CAD, PE on Coumadin, CVA with residual R weakness, Hirschsprung's disease leading to colostomy placement, paraplegia, and Hep C presented with concern of fever, chills, elevated HR and hypoxia tonight. Reports this evening around 9pm starting shivering and developed a fever of 103.5. HR was 138 and he was hypoxic to 88% so he came here. Initially had some sob which has now resolved. Pt has chronic diarrhea as on lactulose. For the past 3 months he reports increased urinary freq, hesitancy and end stream dysuria. Denies any headache, dizziness, cp, abdominal pain, n/v, constipation, hematuria. Found to have worsening erythema of bilateral lower extremities concerning for sepsis in the setting of cellulitis in the ED. Pt febrile to 38.9, tachycardic to 110s. Lactate elevated to 2.8. WBC 17.1. Procal 1.3 with normal CXR. BCx2 pending. Labs also concerning for JUAREZ in the setting of CKD and acute worsening of existing LFT abnormalities in the setting of Hep C. INR elevated to 3.3. UA positive. UCx pending. 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 6) DVT/PE 7) Hirschsprung's disease 8) HTN 9) DM II 10) Morbid obesity 11) Hep C - cured with Harvoni 12)Paraplegia Surgical Hx: 1) LAD CABG 2) Cath with stents to RCA and LAD 3) Colostomy 2013 4) Mitral valve repair x 2 - 2003, 2016 Admission Exam Per Admitting Provider General: Pt appears flushed, obese Neuro: Alert and oriented x 4 CV: RRR, no m/r/g PULM: CTAB, equal breath sounds bilaterally ABDOMEN: +BS, obese abdomen, non-tender to palpation in all quadrants, colostomy bag with moderate formed drainage, multiple surgical scars noted LE: bilateral LE edema, bright red erythema and warmth extending to knees, no TTP Principal Diagnosis Sepsis due to bilateral lower extremity cellulitis Discharge Exam Constitutional WD/WN, vitals as above + obese; no acute distress Eyes PERRL, conjunctivae normal, anicteric sclerae ENMT external ear and nose normal, oropharynx normal Neck trachea midline, no thyromegaly Respiratory normal respiratory effort, lungs clear to auscultation Cardiovascular RRR, no murmur, no edema Gastrointestinal (Abdomen) normal bowel sounds, soft, nontender, no hepatosplenomegaly Musculoskeletal Head/Neck/Chest: normocephalic and head atraumatic Extremities: + abnormal strength (right leg and right arm weakness from prior stroke); no cyanosis, no clubbing and no petechiae Gait: + abnormal gait (cannot ambulate) Skin + rash (bilateral lower leg erythema improved, cool to touch) and + wound (left mucous fistula site, has bleeding, dark blood) Neurologic patellar DTR's 2+ bilat, sensation intact and PERRL, EOMI, accommodation nl, no face palsy, no dysarthria Psychiatric A+Ox3, euthymic affect Lymphatic no cervical or axillary lymphadenopathy Discharge Data Allergies Allergy/AdvReac Type Severity Reaction Status Date / Time No Known Allergies Allergy Verified 10/08/18 14:47 Consultations 12/18/18 03:39 ED Decision to Admit Stat 12/18/18 06:20 Consult Case Management - Discharge Planning Routine Consult Infectious Diseases Routine 12/19/18 12:07 Consult General Surgery Routine 12/20/18 11:05 Consult Nephrology Routine Hospital Course (1) Sepsis: initially with fever and leukocytosis improved with Vanco and Zosyn and IV fluids sepsis resolved no organ failure, no shock change abx to Doxycycline and Keflex x 10 more days follow up with PCP (2) Acute kidney injury: Cr trending down slightly to 2.1 morning of discharge hold nephrotoxins fluids stopped as he had been on 125cc/hr since admission and Cr increasing no further diuretics planned, received Lasix 60mg IV x 1 on 12/[address] Belcher requests outpatient BMP early this week, results to PCP expect Cr to continue to improve making adequate urine (3) Bilateral lower leg cellulitis: marked improvement in the first 48 hours skin was red and hot on admission, it is cool to touch now, redness gone change to Doxy and Keflex x 10 more days (4) Bleeding from wound: bleeding started on 12/19 and then subsided INR reversed, 1.3 on 12/21 small bleeding on 12/21 no intervention planned at this time Hb stable per patient, this happens from time to time at home recommend that if it continues to be a problem he could be referred to surgery or GI as outpatient (5) CKD (chronic kidney disease) stage 3, GFR 30-59 ml/min: Cr down to 2.5 today, JUAREZ slightly improving will repeat tomorrow making adequate urine (6) Supratherapeutic INR: was > 3 on admission, down to 1.3 after Vitamin K will resume Coumadin on discharge (7) Transaminitis: improvement in the first 24 hours likely due to acute illness, has h/o hepatitis C resolved (8) Cerebrovascular accident (CVA): permanent weakness on right side cannot ambulate, uses wheelchair (9) Hypoventilation: RR < 10 at times and developed hypoxia on 12/20 ABG showed both hypoxia and hypercapnia reversed with Narcan 0.4mg IV, patient woke up, RR back into 16-22 range holding Oxycodone, breathing stable, alert (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: takes Oxycodone 30mg TID likely his levels built up due to JUAREZ and less urine output hold Oxycodone for now reversed with Narcan with success alert today (11) Chronic diastolic (congestive) heart failure: mild acute heart failure on 12/20, due to volume overload with fluids at 125cc/hr and JUAREZ CXR on 12/20 with pulmonary edema and patient with hypoxia acute component resolved with Lasix 60mg IV, no further doses needed (12) Hirschsprung's disease: (13) DM type 2 (diabetes mellitus, type 2): sugars running on the low side for now cut Lantus dose in half to 70 units BID Novolog SS (14) Diabetic nephropathy: Total Time Total Time Spent Total Time Spent (In Minutes): 40 minutes Total Time Includes: Examination of the Patient, Discharge Planning and Medication Reconciliation Discharge Plan Discharge Items Patient Disposition: Home - Home Health Services Reason For Visit: FEVER/CHILLS, CELLULITIS Discharge Diagnosis: Sepsis due to cellulitis Acute kidney injury, improving Condition: Fair Discharge Goals: Improve disease control and Improve function Activity: Resume your previous activity Non-emergency contact: Primary Care Provider Call non-emergency contact if: you have any medication questions Follow-up/Referrals: Demarcus Nicholson DO [Primary Care Provider] - Diet: Carb Consistent or DM2 and Heart Healthy Other Ambulatory Orders: Basic Metabolic Panel (Routine) Timeframe: 2 Days Location: Determined by Patient Ordered By: Adeel Garber Provider Instructions: Medications: - DOXYCYCLINE: 100mg twice a day - KEFLEX: 500mg twice a day - GABAPENTIN: dose reduced to 300mg three times a day, continue to discuss with PCP about titrating down dose - OXYCODONE: stopped for two days, no pain, will lower dose to 10mg, take only as needed every 8 hours - LASIX: this has been on hold for several days due to acute renal impairment, continue to hold this weekend, resume on Monday (12/24) in the morning Bilateral lower leg cellulitis rapidly improved with Vancomycin and Zosyn IV, no fever, WBC normal legs now cool to touch and no redness Dr. Brennan, infectious disease, recommends 10 more days of treatment with Doxycycline and Keflex, take until completed follow up with family doctor next week Acute kidney injury on Chronic kidney disease stage III your baseline kidney function is always a little high due to long standing diabetes, Cr is normally 1.5-1.8 range your Cr dominick as high as 2.6 while here, likely due to infection and some antibiotics improving over the past three days, down to 2.1 today, making adequate urine and electrolytes stable continue to hold Lasix today and tomorrow, can resume on Sunday 12/24 please get lab work on Monday with results to your family doctor and Dr. Belcher Bleeding from left sided mucous fistula several episodes of bleeding but your hemoglobin has remained stable held Coumadin for two days, can resume today on discharge would recommend a referral to geology teacher or surgeon as outpatient from your PCP to see if something can be done to stop bleeding Prescriptions: New cephalexin 500 mg Capsule 500 mg PO BID 10 Days Qty: 20 RF: 0 doxycycline hyclate 100 mg Capsule 100 mg PO BID@0600,1800 10 Days Qty: 20 RF: 0 gabapentin 300 mg Capsule 300 mg PO TID 30 Days Qty: 90 RF: 0 oxycodone 10 mg tablet 10 mg PO Q8H PRN (Reason: pain) Qty: 30 RF: 0 Continued furosemide 40 mg Tablet 40 mg PO DAILY RF: 0 atenolol 25 mg Tablet 25 mg PO DAILY RF: 0 pantoprazole 40 mg Tablet,Delayed Release (Dr/Ec) 40 mg PO DAILY RF: 0 colchicine 0.6 mg Tablet 0.6 mg PO DAILY RF: 0 magnesium oxide 400 mg Capsule 400 mg PO DAILY RF: 0 potassium chloride 20 mEq Tablet Extended Release 20 meq PO DAILY RF: 0 ferrous sulfate 325 mg (65 mg iron) tablet 325 mg PO BID RF: 0 insulin aspart U-100 100 unit/mL insulin pen 120 units subcut QAM RF: 0 insulin glargine U-300 conc 300 unit/mL (1.5 mL) insulin pen 138 units subcut BID RF: 0 Novolog U-100 Insulin aspart 100 unit/mL Solution 1 sliding scale dose SUBCUT UD RF: 0 Novolog Flexpen U-100 Insulin 100 unit/mL Insulin Pen 122 unit SUBCUT QDL RF: 0 Novolog Flexpen U-100 Insulin 100 unit/mL Insulin Pen 124 unit SUBCUT QPM RF: 0 clotrimazole 1 % cream 1 applic topical BID RF: 0 lactulose 10 gram/15 mL solution 30 ml PO BID RF: 0 Uloric 80 mg tablet 80 mg PO DAILY RF: 0 clotrimazole-betamethasone 1-0.05 % cream 1 applic topical BID RF: 0 ketoconazole 2 % cream 1 applic topical BID RF: 0 warfarin 5 mg tablet 5 mg PO DAILY RF: 0 Discontinued gabapentin 600 mg Tablet 600 mg PO TID RF: 0 oxycodone 30 mg Tablet 30 mg PO TID RF: 0 Stand-Alone Forms: [facility] Discharge Orders: Discharge Order (Routine); Ordered 12/22/18 Ordered By: Adeel Molina Admission Data Admit Date/Time: 12/18/18 05:07 Attending Provider: Adeel Molina Admit Provider: Brant Jack Primary Care Provider: Demarcus Nicholson Other Providers: Brant Jack ; Serge Brennan ; Roque Carey ; Elizabeth Belcher Service: Medical Other Interventions: Discharge Summary Assessment (RN) Last Done: 12/22/18 12:28 DC Date/Time DO NOT enter until pt leaves facility: 12/22/18 14:05
== END 2018-12-22 14:05 | disposition home or self-care (01) | DRG 871 ==
LOC: ED 02:12 → 2E 05:07 → SUATTDRO 05:07 → 2E 06:06 → 4E 12-21 12:51

== ENCOUNTER 2020-05-01 14:51 | Inpatient (IN) ==
--- NOTE | 2020-05-01 16:53 | XRay Report ---
XR chest 1V portable CLINICAL HISTORY: SEPSIS COMPARISON STUDY: Chest radiograph February 08, 2019. FINDINGS: There are median sternotomy wires. Mild cardiomegaly is unchanged. There is no evidence for pulmonary edema. There is mild elevation of the left hemidiaphragm. Minimal left basilar opacity is noted. No pneumothorax or pleural effusion is noted. IMPRESSION: 1. Mild elevation of the left hemidiaphragm. Minimal left basilar opacity which favors atelectasis. 2. Mild cardiomegaly without evidence for pulmonary edema. ACT 112: Negative or not required by law. Electronically signed by: Jaime Arias M.D. 05/01/2020 4:52 PM
[2020-05-01 17:45] LABS: Basophils # (auto) 0.03 K/uL (0-0.2); Basophils % (auto) 0.2 %; Eosinophils # (auto) 0.34 K/uL (0-0.5); Hematocrit (blood only) 44.3 % (42-52); Hemoglobin 14.7 g/dL (14.0-18.0); Immature Granulocytes # (auto) 0.05 K/uL (0.00-0.02); Immature Granulocytes % (auto) 0.3 %; Lymphocytes # (auto) 1.63 K/uL (1.2-3.4); Lymphocytes % (auto) 9.5 %; Mean Corpuscular Hemoglobin 32.2 pg (25-34); Mean Corpuscular Hgb Conc 33.2 g/dL (32-36); Mean Corpuscular Volume 96.9 fL (80-100); Monocytes % (auto) 3.5 %; Neutrophils # (auto) 14.58 K/uL (1.4-6.5); Neutrophils % (auto) 84.5 %; Platelet Count 236 K/uL (130-400); RDW Coefficient of Variation 16.7 % (11.5-14.5); RDW Standard Deviation 59.1 fL (36.4-46.3); Red Blood Count 4.57 M/uL (4.7-6.1); White Blood Count 17.23 K/uL (4.8-10.8)
[2020-05-01 18:01] LABS: Appearance Urine Clear (Clear); Bacteria Urine Automated Negative (Negative); Bilirubin Urine Negative (Negative); Blood Urine Negative (Negative); Color Urine Yellow; Epithelial Cell Urine Auto >30 /lpf (0-5); Glucose Urine UA Negative (Negative); Ketones Urine Negative (Negative); Leukocyte Esterase Urine 1+ (Negative); Nitrite Urine Negative (Negative); Protein Urine Trace (Negative); RBC Urine Automated 0-4 /hpf (0-4); Specific Gravity Urine 1.014 (1.000-1.030); Urobilinogen Urine Negative (Negative)
[2020-05-01 18:18] LABS: Albumin Globulin Ratio 0.6 (0.9-2); BUN Creatinine Ratio 24.1 (10-20); Bilirubin,Total 0.8 mg/dl (0.2-1); Calcium 8.6 mg/dl (8.5-10.1); Creatinine Clr Calc Pharmacy 67.6 ml/min; Est GFR (African American) 54.8; Est GFR (Non-African American) 47.3; Globulin 5.2 gm/dl (2.5-4.0); Total Protein 8.2 gm/dl (6.4-8.2)
--- NOTE | 2020-05-01 18:25 | CT Scan Report ---
CT OF THE ABDOMEN AND PELVIS WITHOUT CONTRAST CLINICAL HISTORY: Abdominal pain. COMPARISON STUDY: CT of the abdomen and pelvis August 07, 2019. KUB August 08, 2019. TECHNIQUE: Axial images of the abdomen and pelvis were obtained without IV contrast. Images were revi ewed in the axial, sagittal, and coronal planes. Automated exposure control was utilized for the inez dy. A dose lowering technique was utilized adhering to the principles of ALARA. FINDINGS: A trace left pleural effusion with left pleural thickening and subpleural opacities similar to prior exam. This may be chronic. Mild splenomegaly is unchanged. Evaluation of the abdomen and pe lvis is suboptimal on this unenhanced examination. The liver, adrenal glands and pancreas are unremar kable. Note is made of a 4 mm right renal calculus. Several left renal calculi are noted, including a 1.3 cm calculus within the upper pole. There are no ureteral calculi. There is no hydronephrosis. No te is made of mild bladder wall thickening. This may be chronic. Subtotal colectomy is noted with rig ht lower quadrant ostomy. There is no evidence for a bowel obstruction. 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 No lymphadenopathy is present. There is no ascites. A 1.1 cm lesi on within the midpole the left kidney measures above water attenuation. This is suboptimally assessed on this unenhanced examination. No suspicious osseous lesions are noted. No bowel wall thickening is identified on this unenhanced examination. There is no biliary or pancreatic ductal dilatation. The gallbladder is contracted. IMPRESSION: 1. Bilateral nephrolithiasis. No ureteral calculi or hydronephrosis. Mild bladder wall thickening whi ch can be correlated with urinalysis. 2. Status post subtotal colectomy with right lower quadrant ileostomy and parastomal hernia. No bowel obstruction. 3. 1.1 cm left renal lesion. This could reflect a hyperdense cyst or small solid renal lesion. Noneme rgent renal ultrasound is recommended. ACT 112: Negative or not required by law. Electronically signed by: Jaime Arias M.D. 05/01/2020 6:23 PM
[2020-05-01] MEDS ORDERED: cefTRIAXone SODIUM 1,000 MG/50 ML BAG IV STA (18:42)
--- NOTE | 2020-05-01 20:03 | History & Physical Report ---
Date of Service May 01, 2020 Assessment & Plan (1) Acute UTI: 49yo C male with history of paraplegia presenting with dysuria, 2-3 days of feeling ill with nausea/vomiting/chills and fatigue. Patient with prior history of ESBL UTI. Presently afebrile, BP slightly low at 93/63, non-toxic in appearance. He does have and elevated WBC count at 17.23 with neutrophil predominance. -Admit to medical floor -Follow cultures -Ertapenem for empiric coverage -Tylenol as needed for pain/fever Present on Admission?: Yes (2) Coronary artery disease: Chronic. Stable. Patient with multiple stents in the past, s/p CABG x 1V LAD. Patient had severe mitral regurgitation in setting of mitral valve leaflet perforation and had mitral valve repair in 2016. -Continue Atenolol 25mg po qAM. Consider switching to a more cardio-selective BB -Continue Lisinopril 2.5mg po daily -Patient currently not on a statin or ASA at this time Present on Admission?: Yes (3) History of CVA (cerebrovascular accident): Patient suffered a CVA in setting of cardiac surgery in 2013, ?due to septic emboli in setting of infectious endocarditis. Patient paraplegic -Air mattress requested Present on Admission?: Yes (4) HTN (hypertension): Blood pressure adequate at present -Continue Tenormin, Lisinopril -Continue to monitor -Hold medications for SBP < 90 Present on Admission?: Yes (5) CKD (chronic kidney disease) stage 3, GFR 30-59 ml/min: BUN and Cr near baseline -Avoid nephrotoxic agents -Renal dosing where needed -Monitor BUN, Cr, electrolytes Present on Admission?: Yes (6) DM type 2 (diabetes mellitus, type 2): Blood sugar 105. -Check Hgb AIC with AM labs -Continue home medication, Lantus 50u BID with ISS -Continue Neurontin 300mg po BID Present on Admission?: Yes (7) Gout: Chronic. No acute flare at this time -Continue Allopurinol 300 mg po daily Present on Admission?: Yes (8) Chronic pain of right lower extremity: Patient with trauma to RLE, currently in boot -Oxycodone 15mg po TID - patient is written for 30mg po TID but states that he typically splits his pills in half (9) DVT (deep venous thrombosis): Remote history -Continue Coumadin -Monitor INR F/E/N - NSS at 80mL/hr x 2 liters, monitor electrolytes and replete as needed, AHA/CC diet as tolerated Ppx - Coumadin as above for h/o DVT Code - Full per discussion with patient Dispo - Admit to medical floor History of Present Illness Chief Complaint: dysuria Primary Care Provider: Demarcus Nicholson DO Hema Grajeda is a 49yo C male with history of paraplegia, CAD, CKD, DM, CHF presenting with dysuria. Patient recently completed a course of antibiotics for UTI, he believes it was Ciprofloxacin. He has been feeling ill, nausea with vomiting x 1 episode, fatigue, chills and poor appetite for the last 2-3 days. He has also been experiencing dysuria. Patient banged his right foot on the door recently - is currently in a walking boot. Reports some discomfort. No additional complaints at this time. Has history of ESBL UTI with Proteus. Denies fever, flank pain, chest pain, SOB, cough, diarrhea. No Covid-19 concerns. ER Course: Ceftriaxone Allergies Allergy/AdvReac Type Severity Reaction Status Date / Time No Known Drug Allergies Allergy Unknown Verified 05/01/20 19:48 Home Medications Home Medications Medication Instructions Recorded Confirmed Type atenolol 25 mg PO QAM 08/18/18 05/01/20 History insulin aspart U-100 [Novolog 0 unit SUBCUT TIDM 10/08/18 05/01/20 History Flexpen U-100 Insulin] Toujeo SoloStar U-300 Insulin 50 unit SUBCUT BID 01/14/19 05/01/20 History gabapentin 300 mg PO AMPM 01/14/19 05/01/20 History ascorbic acid (vitamin C) [Vitamin 500 mg PO DAILY 02/08/19 05/01/20 History C] Desenex 1 applic TOPICAL BID 05/27/19 05/01/20 History famotidine [Pepcid] 40 mg PO DAILY 05/27/19 05/01/20 History warfarin [Coumadin] 2.5 mg PO DAILY #0 tab 08/09/19 05/01/20 Rx allopurinol 300 mg tablet 300 mg PO DAILY 01/23/20 05/01/20 History cholecalciferol (vitamin D3) 25 25 mcg PO DAILY 01/23/20 05/01/20 History mcg (1,000 unit) capsule clotrimazole-betamethasone 1 applic TOPICAL BID 05/01/20 05/01/20 History lisinopril 2.5 mg PO DAILY 05/01/20 05/01/20 History oxycodone [Roxicodone] 30 mg PO TID 05/01/20 05/01/20 History Past Med/Surg History Medical History Abdominal infection Acute dehydration Acute kidney injury Acute UTI JUAREZ (acute kidney injury) Bilateral lower leg cellulitis Bleeding from colostomy Bleeding from wound Brain abscess CAD (coronary atherosclerotic disease) Cerebrovascular accident (CVA) Cerebrovascular accident (CVA) CKD (chronic kidney disease) stage 3, GFR 30-59 ml/min Coagulopathy Diabetic nephropathy Diastolic congestive heart failure DM type 2 (diabetes mellitus, type 2) E coli infection Edema of right lower extremity Elevated INR Endocarditis Endocarditis Gout Hematuria Hepatitis C Hirschsprung's disease Hirschsprung's disease History of CVA (cerebrovascular accident) History of intravenous drug abuse Hypoventilation Leg pain, bilateral Narcotic poisoning Nephrolithiasis Nocturnal hypoxemia Paraplegia Pneumonia Pulmonary emboli Pulmonary embolism Pulmonary hypertension Sepsis Severe sepsis Shortness of breath Stroke Supratherapeutic INR Transaminitis UTI (urinary tract infection) Wound infection Surgical History H/O mitral valve repair Hx of CABG S/P cardiac cath S/P colostomy Surgically created abdominal mucous fistula Family History Father Cardiac disorder Hypertension Prostate cancer Diabetes Mother Hypertension Skin cancer Other Family history non-contributory Social History Smoking Status: Never smoker Second Hand Exposure: No; Hx Alcohol Use: No Hx Substance Use: Yes Preferred Language: Slovenian Communication Ability: Effective 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 Beliefs That Will Affect Care: None marital status: Current Living Situation: Parent Feels Safe at Home: Yes Review of Systems Review of Systems: All systems reviewed & are unremarkable except as noted in HPI & below Physical Exam Physical Exam: General: patient resting comfortably, NAD, non-toxic in appearance, AA&O x 4 Skin: warm, dry, no rashes HEENT: NC/AT, PERRL, EOMI, anicteric sclera, conjunctiva without injection, external ear normal to inspection and nontender, nares patent, moist mucus membranes, dentition intact, no oropharyngeal lesions, neck supple, trachea midline, no LAD, no thyromegaly, no JVD Heart: +S1/S2, regular, no m/r/g Lungs: equal air entry bilaterally, no rales/rhonchi/wheezes Abd: +BS, soft, NT/ND, no masses/organomegaly/ascites, colostomy bag RLQ with normal output, stoma pink/healthy appearing, mucus fistula present LLQ, no drainage Ext: warm, 2+ pulses in UE/LE bilaterally, no clubbing/cyanosis or edema, RLE in walking boot Neuro:paraplegic in wheelchair, AA&O, speech clear Results & Data Results & Data ([facility]) Vital Signs (Past 12 Hours) Vital Signs Temp Pulse Pulse Resp BP BP Pulse Ox 05/01/20 17:39 70 18 100/58 L 100 05/01/20 14:54 36.7 C 71 18 116/85 100 Laboratory Results Lab Results 05/01/20 05/01/20 05/01/20 Range/Units 17:34 17:34 17:34 WBC 17.23 H (4.8-10.8) K/uL RBC 4.57 L (4.7-6.1) M/uL Hgb 14.7 (14.0-18.0) g/dL Hct 44.3 (42-52) % MCV 96.9 (80-100) fL MCH 32.2 (25-34) pg MCHC 33.2 (32-36) g/dL RDW Std Deviation 59.1 H (36.4-46.3) fL RDW Coeff of Lorenzo 16.7 H (11.5-14.5) % Plt Count 236 (130-400) K/uL MPV 10.0 (7.4-10.4) fL Immature Gran % (Auto) 0.3 % Neut % (Auto) 84.5 % Lymph % (Auto) 9.5 % [place] % (Auto) 3.5 % Eos % (Auto) 2.0 % Baso % (Auto) 0.2 % Neut # (Auto) 14.58 H (1.4-6.5) K/uL Lymph # (Auto) 1.63 (1.2-3.4) K/uL [place] # (Auto) 0.60 H (0.11-0.59) K/uL Eos # (Auto) 0.34 (0-0.5) K/uL Baso # (Auto) 0.03 (0-0.2) K/uL Immature Gran # (Auto) 0.05 H (0.00-0.02) K/uL PT Cancelled INR Cancelled APTT Cancelled PTT Ratio Cancelled Sodium 136 (136-145) mmol/L Potassium (3.5-5.1) mmol/L Chloride 107 (98-107) mmol/L Carbon Dioxide 22 (21-32) mmol/L Anion Gap 7.0 (3-11) BUN 41 H (7-18) mg/dl Creatinine 1.69 H (0.6-1.4) mg/dl Est Cr Clr Drug Dosing 67.6 ml/min Est GFR ( Amer) 54.8 Est GFR (Non-Af Amer) 47.3 BUN/Creatinine Ratio 24.1 H (10-20) Glucose 105 H (70-99) mg/dl Lactate Calcium 8.6 (8.5-10.1) mg/dl Magnesium (1.8-2.4) mg/dl Total Bilirubin 0.8 (0.2-1) mg/dl AST (15-37) U/L ALT 24 (12-78) U/L Alkaline Phosphatase 185 H (45-117) U/L Total Protein 8.2 (6.4-8.2) gm/dl Albumin 3.0 L (3.4-5.0) gm/dl Globulin 5.2 H (2.5-4.0) gm/dl Albumin/Globulin Ratio 0.6 L (0.9-2) Lipase 153 (73-393) U/L Specimen Hemolysis Urine Color Urine Appearance (Clear) Urine pH (4.5-7.5) Ur Specific [place] (1.000-1.030) Urine Protein (Negative) Urine Glucose (UA) (Negative) Urine Ketones (Negative) Urine Blood (Negative) Urine Nitrite (Negative) Urine Bilirubin (Negative) Urine Urobilinogen (Negative) Ur Leukocyte Esterase (Negative) Urine WBC (Auto) (0-5) /hpf Urine RBC (Auto) (0-4) /hpf U Hyaline Cast (Auto) (0-5) /lpf U Epithel Cells (Auto) (0-5) /lpf Urine Bacteria (Auto) (Negative) 05/01/20 05/01/20 05/01/20 Range/Units 17:34 17:34 22:34 WBC (4.8-10.8) K/uL RBC (4.7-6.1) M/uL Hgb (14.0-18.0) g/dL Hct (42-52) % MCV (80-100) fL MCH (25-34) pg MCHC (32-36) g/dL RDW Std Deviation (36.4-46.3) fL RDW Coeff of Lorenzo (11.5-14.5) % Plt Count (130-400) K/uL MPV (7.4-10.4) fL Immature Gran % (Auto) % Neut % (Auto) % Lymph % (Auto) % [place] % (Auto) % Eos % (Auto) % Baso % (Auto) % Neut # (Auto) (1.4-6.5) K/uL Lymph # (Auto) (1.2-3.4) K/uL [place] # (Auto) (0.11-0.59) K/uL Eos # (Auto) (0-0.5) K/uL Baso # (Auto) (0-0.2) K/uL Immature Gran # (Auto) (0.00-0.02) K/uL PT INR APTT PTT Ratio Sodium (136-145) mmol/L Potassium (3.5-5.1) mmol/L Chloride (98-107) mmol/L Carbon Dioxide (21-32) mmol/L Anion Gap (3-11) BUN (7-18) mg/dl Creatinine (0.6-1.4) mg/dl Est Cr Clr Drug Dosing ml/min Est GFR ( Amer) Est GFR (Non-Af Amer) BUN/Creatinine Ratio (10-20) Glucose (70-99) mg/dl Lactate Cancelled 0.9 Calcium (8.5-10.1) mg/dl Magnesium (1.8-2.4) mg/dl Total Bilirubin (0.2-1) mg/dl AST (15-37) U/L ALT (12-78) U/L Alkaline Phosphatase (45-117) U/L Total Protein (6.4-8.2) gm/dl Albumin (3.4-5.0) gm/dl Globulin (2.5-4.0) gm/dl Albumin/Globulin Ratio (0.9-2) Lipase (73-393) U/L Specimen Hemolysis Urine Color Yellow Urine Appearance Clear (Clear) Urine pH 5.0 (4.5-7.5) Ur Specific [place] 1.014 (1.000-1.030) Urine Protein Trace H (Negative) Urine Glucose (UA) Negative (Negative) Urine Ketones Negative (Negative) Urine Blood Negative (Negative) Urine Nitrite Negative (Negative) Urine Bilirubin Negative (Negative) Urine Urobilinogen Negative (Negative) Ur Leukocyte Esterase 1+ H (Negative) Urine WBC (Auto) 10-30 H (0-5) /hpf Urine RBC (Auto) 0-4 (0-4) /hpf U Hyaline Cast (Auto) 1-5 (0-5) /lpf U Epithel Cells (Auto) >30 H (0-5) /lpf Urine Bacteria (Auto) Negative (Negative) 05/01/20 05/01/20 Range/Units 22:34 22:34 WBC (4.8-10.8) K/uL RBC (4.7-6.1) M/uL Hgb (14.0-18.0) g/dL Hct (42-52) % MCV (80-100) fL MCH (25-34) pg MCHC (32-36) g/dL RDW Std Deviation (36.4-46.3) fL RDW Coeff of Lorenzo (11.5-14.5) % Plt Count (130-400) K/uL MPV (7.4-10.4) fL Immature Gran % (Auto) % Neut % (Auto) % Lymph % (Auto) % [place] % (Auto) % Eos % (Auto) % Baso % (Auto) % Neut # (Auto) (1.4-6.5) K/uL Lymph # (Auto) (1.2-3.4) K/uL [place] # (Auto) (0.11-0.59) K/uL Eos # (Auto) (0-0.5) K/uL Baso # (Auto) (0-0.2) K/uL Immature Gran # (Auto) (0.00-0.02) K/uL PT 13.5 H INR 1.3 H APTT 34.2 H PTT Ratio 1.2 Sodium (136-145) mmol/L Potassium 4.5 (3.5-5.1) mmol/L Chloride (98-107) mmol/L Carbon Dioxide (21-32) mmol/L Anion Gap (3-11) BUN (7-18) mg/dl Creatinine (0.6-1.4) mg/dl Est Cr Clr Drug Dosing ml/min Est GFR ( Amer) Est GFR (Non-Af Amer) BUN/Creatinine Ratio (10-20) Glucose (70-99) mg/dl Lactate Calcium (8.5-10.1) mg/dl Magnesium 1.8 (1.8-2.4) mg/dl Total Bilirubin (0.2-1) mg/dl AST 21 (15-37) U/L ALT (12-78) U/L Alkaline Phosphatase (45-117) U/L Total Protein (6.4-8.2) gm/dl Albumin (3.4-5.0) gm/dl Globulin (2.5-4.0) gm/dl Albumin/Globulin Ratio (0.9-2) Lipase (73-393) U/L Specimen Hemolysis Urine Color Urine Appearance (Clear) Urine pH (4.5-7.5) Ur Specific [place] (1.000-1.030) Urine Protein (Negative) Urine Glucose (UA) (Negative) Urine Ketones (Negative) Urine Blood (Negative) Urine Nitrite (Negative) Urine Bilirubin (Negative) Urine Urobilinogen (Negative) Ur Leukocyte Esterase (Negative) Urine WBC (Auto) (0-5) /hpf Urine RBC (Auto) (0-4) /hpf U Hyaline Cast (Auto) (0-5) /lpf U Epithel Cells (Auto) (0-5) /lpf Urine Bacteria (Auto) (Negative) Diagnostic Findings XR chest 1V portable CLINICAL HISTORY: SEPSIS COMPARISON STUDY: Chest radiograph February 08, 2019. FINDINGS: There are median sternotomy wires. Mild cardiomegaly is unchanged. There is no evidence for pulmonary edema. There is mild elevation of the left hemidiaphragm. Minimal left basilar opacity is noted. No pneumothorax or pleural effusion is noted. IMPRESSION: 1. Mild elevation of the left hemidiaphragm. Minimal left basilar opacity which favors atelectasis. 2. Mild cardiomegaly without evidence for pulmonary edema. ACT 112: Negative or not required by law. Electronically signed by: Jaime Arias M.D. 05/01/2020 4:52 PM Dictated: 05/01/201650 Transcribed: 05/01/201650 CT OF THE ABDOMEN AND PELVIS WITHOUT CONTRAST CLINICAL HISTORY: Abdominal pain. COMPARISON STUDY: CT of the abdomen and pelvis August 07, 2019. KUB August 08, 2019. TECHNIQUE: Axial images of the abdomen and pelvis were obtained without IV contrast. Images were reviewed in the axial, sagittal, and coronal planes. Automated exposure control was utilized for the study. A dose lowering technique was utilized adhering to the principles of ALARA. FINDINGS: A trace left pleural effusion with left pleural thickening and subpleural opacities similar to prior exam. This may be chronic. Mild splenomegaly is unchanged. Evaluation of the abdomen and pelvis is suboptimal on this unenhanced examination. The liver, adrenal glands and pancreas are unremarkable. Note is made of a 4 mm right renal calculus. Several left renal calculi are noted, including a 1.3 cm calculus within the upper pole. There are no ureteral calculi. There is no hydronephrosis. Note is made of mild bladder wall thickening. This may be chronic. Subtotal colectomy is noted with right lower quadrant ostomy. There is no evidence for a bowel obstruction. 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 No lymphadenopathy is present. There is no ascites. A 1.1 cm lesion within the midpole the left kidney measures above water attenuation. This is suboptimally assessed on this unenhanced examination. No suspicious osseous lesions are noted. No bowel wall thickening is identified on this unenhanced examination. There is no biliary or pancreatic ductal dilatation. The gallbladder is contracted. IMPRESSION: 1. Bilateral nephrolithiasis. No ureteral calculi or hydronephrosis. Mild bladder wall thickening which can be correlated with urinalysis. 2. Status post subtotal colectomy with right lower quadrant ileostomy and parastomal hernia. No bowel obstruction. 3. 1.1 cm left renal lesion. This could reflect a hyperdense cyst or small solid renal lesion. Nonemergent renal ultrasound is recommended. ACT 112: Negative or not required by law. Electronically signed by: Jaime Arias M.D. 05/01/2020 6:23 PM Dictated: 05/01/201810 Transcribed: 05/01/201815 ECG Additional Comments: SR at 72 with first degree AV block, GF=590, DVJ=661, DYx=901, no acute ischemic changes Code Status & VTE Plan Code Status FULL VTE Prophylaxis Plan VTE Prophylaxis will be ordered: Yes PG Care Time/CCT Total # of Minutes Spent Total Time Spent with Patient: Total time spent is greater than 50% in coordination of care (as documented) at patient's floor/unit and/or counseling patient: Coding Level of Care Code 15726 Initial Inpt Care Lvl 3 Diagnoses Acute UTI N39.0 Coronary artery disease I25.10 Coronary Disease-Associated Artery/Lesion type: [place] artery [place] vs. 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
[2020-05-01] MEDS ORDERED: MoRPHine SULFATE 4 MG/ML 1 ML CARP\\VIAL IV STA (20:55)
[2020-05-01] MEDS ORDERED: MoRPHine SULFATE 2 MG/ML CARP ONE (20:57)
[2020-05-01] MEDS ORDERED: oxyCODONE HCL IR 5 MG TAB (IMMEDIATE RELEASE) ONE (21:09)
[2020-05-01 22:53] LABS: INR 1.3 (0.9-1.1); Partial Thromboplastin Ratio 1.2; Partial Thromboplastin Time 34.2 Seconds (21.0-31.0); Prothrombin Time 13.5 Seconds (9.0-12.0)
[2020-05-01 22:59] LABS: Magnesium 1.8 mg/dl (1.8-2.4); Potassium 4.5 mmol/L (3.5-5.1)
[2020-05-01] MEDS ORDERED: ACETAMINOPHEN 325 MG TAB PO PRN (23:16)
[2020-05-01] MEDS ORDERED: GLUCAGON FOR INJ 1 MG VIAL SQ PRN (23:16)
[2020-05-01] MEDS ORDERED: GLUCOSE 10 TABS/TUBE PO PRN (23:16)
[2020-05-01] MEDS ORDERED: DEXTROSE 50% 50 ML SYRINGE IV PRN (23:16)
[2020-05-01] MEDS ORDERED: GLUCOSE 40% GEL 15 GM TUBE PO PRN (23:16)
[2020-05-01] MEDS ORDERED: CARBOHYDRATES FOR HYPOGLYCEMIA PO PRN (23:16)
[2020-05-01] MEDS ORDERED: ONDANSETRON INJ 2 MG/ML 2 ML VIAL IV PRN (23:16)
--- NOTE | 2020-05-01 23:20 | Emergency Department Note ---
History of Present Illness General Chief complaint: Nausea Stated complaint: NAUSEA,VOMITING Time Seen by Provider: 05/01/20 16:21 History of Present Illness Provider complaint: Nausea vomiting Onset (ago): day(s) 2 Location: abdomen Severity: moderate Maximum Pain Intensity: 6 Relieved By: + none Exacerbated By: + none Associated symptoms: + malaise and + nausea/vomiting; no chest pain, no cough, no fever/chills, no headaches, no rash and no shortness of breath 49-year-old male presents emergency department for nausea vomiting. He reports feeling nauseous for last 2 days. He reports vomiting over the last 2 days. She denies any hematemesis, coffee-ground emesis, or bilious vomiting. Patient is a paraplegic. He states he is able to urinate on his own. He does not self cath. Patient states he was recently treated for UTI with Cipro. He states he is still having dysuria. Home Medications Home Medications Medication Instructions Recorded Confirmed Type atenolol 25 mg PO QAM 08/18/18 05/01/20 History insulin aspart U-100 [Novolog 0 unit SUBCUT TIDM 10/08/18 05/01/20 History Flexpen U-100 Insulin] Toujeo SoloStar U-300 Insulin 50 unit SUBCUT BID 01/14/19 05/01/20 History gabapentin 300 mg PO AMPM 01/14/19 05/01/20 History ascorbic acid (vitamin C) [Vitamin 500 mg PO DAILY 02/08/19 05/01/20 History C] Desenex 1 applic TOPICAL BID 05/27/19 05/01/20 History famotidine [Pepcid] 40 mg PO DAILY 05/27/19 05/01/20 History warfarin [Coumadin] 2.5 mg PO DAILY #0 tab 08/09/19 05/01/20 Rx allopurinol 300 mg tablet 300 mg PO DAILY 01/23/20 05/01/20 History cholecalciferol (vitamin D3) 25 25 mcg PO DAILY 01/23/20 05/01/20 History mcg (1,000 unit) capsule clotrimazole-betamethasone 1 applic TOPICAL BID 05/01/20 05/01/20 History lisinopril 2.5 mg PO DAILY 05/01/20 05/01/20 History oxycodone [Roxicodone] 30 mg PO TID 05/01/20 05/01/20 History Allergies Allergy/AdvReac Type Severity Reaction Status Date / Time No Known Drug Allergies Allergy Unknown Verified 05/01/20 19:48 Past Med/Surg History Medical History Abdominal infection Acute dehydration Acute kidney injury Acute UTI JUAREZ (acute kidney injury) Bilateral lower leg cellulitis Bleeding from colostomy Bleeding from wound Brain abscess CAD (coronary atherosclerotic disease) Cerebrovascular accident (CVA) Cerebrovascular accident (CVA) CKD (chronic kidney disease) stage 3, GFR 30-59 ml/min Coagulopathy Diabetic nephropathy Diastolic congestive heart failure DM type 2 (diabetes mellitus, type 2) E coli infection Edema of right lower extremity Elevated INR Endocarditis Endocarditis Gout Hematuria Hepatitis C Hirschsprung's disease Hirschsprung's disease History of CVA (cerebrovascular accident) History of intravenous drug abuse Hypoventilation Leg pain, bilateral Narcotic poisoning Nephrolithiasis Nocturnal hypoxemia Paraplegia Pneumonia Pulmonary emboli Pulmonary embolism Pulmonary hypertension Sepsis Severe sepsis Shortness of breath Stroke Supratherapeutic INR Transaminitis UTI (urinary tract infection) Wound infection Surgical History H/O mitral valve repair Hx of CABG S/P cardiac cath S/P colostomy Surgically created abdominal mucous fistula Family History Father Cardiac disorder Hypertension Prostate cancer Diabetes Mother Hypertension Skin cancer Other Family history non-contributory Social History Smoking Status: Never smoker Second Hand Exposure: No; Hx Alcohol Use: No Hx Substance Use: Yes Preferred Language: Armenian Communication Ability: Effective 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 Beliefs That Will Affect Care: None marital status: Current Living Situation: Parent Feels Safe at Home: Yes Review of Systems A total of 10 systems reviewed and were otherwise negative Physical Exam Vital Signs Vital Signs - 24 hr 05/01/20 14:54 05/01/20 17:39 05/01/20 19:00 Temperature 36.7 C Temperature Source Oral Pulse Rate 71 70 Pulse Rate [Left Finger] 70 Respiratory Rate 18 18 14 Respiratory Effort / Characteristics Non-Labored Respiratory Depth Normal Blood Pressure 116/85 122/69 Blood Pressure [Left Arm] 100/58 L Blood Pressure Mean 95 81 Blood Pressure Mean [Left Arm] 72 Pulse Oximetry 100 100 Oxygen Delivery Method Room Air Room Air Sepsis Recent Fever Within 48 Hours No Sepsis New/Unexplained Change in Mental Status No Sepsis Action Taken by Nursing No Action Required 05/01/20 20:00 Temperature Temperature Source Pulse Rate 72 Pulse Rate [Left Finger] Respiratory Rate 21 Respiratory Effort / Characteristics Respiratory Depth Blood Pressure 110/82 Blood Pressure [Left Arm] Blood Pressure Mean 90 Blood Pressure Mean [Left Arm] Pulse Oximetry 95 Oxygen Delivery Method Room Air Sepsis Recent Fever Within 48 Hours Sepsis New/Unexplained Change in Mental Status Sepsis Action Taken by Nursing Physical Exam GENERAL: Patient is paraplegic in wheelchair. HENT: Exam performed. - Head: Normocephalic and atraumatic. - Right Ear: External ear normal. No mastoid tenderness. - Left Ear: External ear normal. No mastoid tenderness. - Mouth/Throat: The oropharynx is clear and moist. No trismus in the jaw. No dental abscesses or uvula swelling. No oropharyngeal exudate or tonsillar abscesses. EYES: Conjunctivae and EOM are normal. Pupils are equal, round, and reactive to light. Right eye exhibits no discharge. Left eye exhibits no discharge. No scleral icterus. NECK: Normal range of motion. Neck supple. No JVD present. No spinous process tenderness present. No carotid bruit present. No rigidity. No tracheal deviation and normal range of motion present. No Brudzinski's sign and no Kernig's sign noted. CV: Normal rate, regular rhythm, normal heart sounds and intact distal pulses. There is no peripheral edema. Palpable radial pulses bue. PULM/CHEST: Effort normal and breath sounds normal. No respiratory distress. No stridor. He has no wheezes. He has no rales. - Chest Wall: He exhibits no tenderness. ABD: The abdomen is soft. Ostomy bag present. Bowel sounds are normal. He has no distension. No mass is present. There is tenderness to palpation of the suprapubic area. There is no rebound, no guarding, no Nichols's sign and no tenderness at McBurney's point. Rovsig negative. PSYCH: He has a normal mood and affect. Behavior is normal. Judgment and thought content normal. Course Course 1621: The patient was evaluated in room C9. A complete history and physical exam was performed. 1843: Vital signs stable. Labs show leukocytosis of 17. Creatinine is at baseline. Lactic acid is within normal limits. Urinalysis does appear infected. CT of the abdomen shows cystitis. Patient failed outpatient treatment with Cipro. Patient will be admitted for IV antibiotics. Discussed the case with Dr. Goncalves [facility] hospitalist who agreed to evaluate the patient. Administered Medications Discontinued Medications Ceftriaxone Sodium (Rocephin) 1,000 mg in 50 mls @ 100 mls/hr IV NOW STA Stop: 05/01/20 19:11 Last Infusion: 05/01/20 21:45 Dose: 0 mls/hr Documented by: [id number] Admin: 05/01/20 21:12 Dose: 100 mls/hr Documented by: [id number] Morphine Sulfate (Morphine Sulfate 4 Mg/Ml 1 Ml Carp\Vial) 2 mg IV NOW STA Stop: 05/01/20 20:56 Last Admin: 05/01/20 21:15 Dose: Not Given Documented by: [id number] Morphine Sulfate (Morphine Sulfate 2 Mg/Ml Carp) Confirm Administered Dose 2 mg .ROUTE .STK-MED ONE Stop: 05/01/20 20:58 Last Admin: 05/01/20 21:15 Dose: Not Given Documented by: [id number] Oxycodone HCl (Oxycodone Hcl Ir 5 Mg Tab (Immediate Release)) Confirm Administered Dose 15 mg .ROUTE .STK-MED ONE Stop: 05/01/20 21:10 Last Admin: 05/01/20 21:11 Dose: 15 mg Documented by: [id number] Medical Decision Making Laboratory Data Result diagrams: 05/01/20 17:34 05/01/20 22:34 Lab Results 05/01/20 05/01/20 05/01/20 Range/Units 17:34 17:34 17:34 WBC 17.23 H (4.8-10.8) K/uL RBC 4.57 L (4.7-6.1) M/uL Hgb 14.7 (14.0-18.0) g/dL Hct 44.3 (42-52) % MCV 96.9 (80-100) fL MCH 32.2 (25-34) pg MCHC 33.2 (32-36) g/dL RDW Std Deviation 59.1 H (36.4-46.3) fL RDW Coeff of Lorenzo 16.7 H (11.5-14.5) % Plt Count 236 (130-400) K/uL MPV 10.0 (7.4-10.4) fL Immature Gran % (Auto) 0.3 % Neut % (Auto) 84.5 % Lymph % (Auto) 9.5 % Prow[place] % (Auto) 3.5 % Eos % (Auto) 2.0 % Baso % (Auto) 0.2 % Neut # (Auto) 14.58 H (1.4-6.5) K/uL Lymph # (Auto) 1.63 (1.2-3.4) K/uL [place] # (Auto) 0.60 H (0.11-0.59) K/uL Eos # (Auto) 0.34 (0-0.5) K/uL Baso # (Auto) 0.03 (0-0.2) K/uL Immature Gran # (Auto) 0.05 H (0.00-0.02) K/uL PT Cancelled INR Cancelled APTT Cancelled PTT Ratio Cancelled Sodium 136 (136-145) mmol/L Potassium (3.5-5.1) mmol/L Chloride 107 (98-107) mmol/L Carbon Dioxide 22 (21-32) mmol/L Anion Gap 7.0 (3-11) BUN 41 H (7-18) mg/dl Creatinine 1.69 H (0.6-1.4) mg/dl Est Cr Clr Drug Dosing 67.6 ml/min Est GFR ( Amer) 54.8 Est GFR (Non-Af Amer) 47.3 BUN/Creatinine Ratio 24.1 H (10-20) Glucose 105 H (70-99) mg/dl Lactate Calcium 8.6 (8.5-10.1) mg/dl Magnesium (1.8-2.4) mg/dl Total Bilirubin 0.8 (0.2-1) mg/dl AST (15-37) U/L ALT 24 (12-78) U/L Alkaline Phosphatase 185 H (45-117) U/L Total Protein 8.2 (6.4-8.2) gm/dl Albumin 3.0 L (3.4-5.0) gm/dl Globulin 5.2 H (2.5-4.0) gm/dl Albumin/Globulin Ratio 0.6 L (0.9-2) Lipase 153 (73-393) U/L Urine Color Urine Appearance (Clear) Urine pH (4.5-7.5) Ur Specific Florence (1.000-1.030) Urine Protein (Negative) Urine Glucose (UA) (Negative) Urine Ketones (Negative) Urine Blood (Negative) Urine Nitrite (Negative) Urine Bilirubin (Negative) Urine Urobilinogen (Negative) Ur Leukocyte Esterase (Negative) Urine WBC (Auto) (0-5) /hpf Urine RBC (Auto) (0-4) /hpf U Hyaline Cast (Auto) (0-5) /lpf U Epithel Cells (Auto) (0-5) /lpf Urine Bacteria (Auto) (Negative) 05/01/20 05/01/20 Range/Units 17:34 17:34 WBC (4.8-10.8) K/uL RBC (4.7-6.1) M/uL Hgb (14.0-18.0) g/dL Hct (42-52) % MCV (80-100) fL MCH (25-34) pg MCHC (32-36) g/dL RDW Std Deviation (36.4-46.3) fL RDW Coeff of Lorenzo (11.5-14.5) % Plt Count (130-400) K/uL MPV (7.4-10.4) fL Immature Gran % (Auto) % Neut % (Auto) % Lymph % (Auto) % Prow[place] % (Auto) % Eos % (Auto) % Baso % (Auto) % Neut # (Auto) (1.4-6.5) K/uL Lymph # (Auto) (1.2-3.4) K/uL P[place] # (Auto) (0.11-0.59) K/uL Eos # (Auto) (0-0.5) K/uL Baso # (Auto) (0-0.2) K/uL Immature Gran # (Auto) (0.00-0.02) K/uL PT INR APTT PTT Ratio Sodium (136-145) mmol/L Potassium (3.5-5.1) mmol/L Chloride (98-107) mmol/L Carbon Dioxide (21-32) mmol/L Anion Gap (3-11) BUN (7-18) mg/dl Creatinine (0.6-1.4) mg/dl Est Cr Clr Drug Dosing ml/min Est GFR ( Amer) Est GFR (Non-Af Amer) BUN/Creatinine Ratio (10-20) Glucose (70-99) mg/dl Lactate Cancelled Calcium (8.5-10.1) mg/dl Magnesium (1.8-2.4) mg/dl Total Bilirubin (0.2-1) mg/dl AST (15-37) U/L ALT (12-78) U/L Alkaline Phosphatase (45-117) U/L Total Protein (6.4-8.2) gm/dl Albumin (3.4-5.0) gm/dl Globulin (2.5-4.0) gm/dl Albumin/Globulin Ratio (0.9-2) Lipase (73-393) U/L Urine Color Yellow Urine Appearance Clear (Clear) Urine pH 5.0 (4.5-7.5) Ur Specific Florence 1.014 (1.000-1.030) Urine Protein Trace H (Negative) Urine Glucose (UA) Negative (Negative) Urine Ketones Negative (Negative) Urine Blood Negative (Negative) Urine Nitrite Negative (Negative) Urine Bilirubin Negative (Negative) Urine Urobilinogen Negative (Negative) Ur Leukocyte Esterase 1+ H (Negative) Urine WBC (Auto) 10-30 H (0-5) /hpf Urine RBC (Auto) 0-4 (0-4) /hpf U Hyaline Cast (Auto) 1-5 (0-5) /lpf U Epithel Cells (Auto) >30 H (0-5) /lpf Urine Bacteria (Auto) Negative (Negative) Imaging Data Radiologist's Impression: XR chest 1V portable CLINICAL HISTORY: SEPSIS COMPARISON STUDY: Chest radiograph February 08, 2019. FINDINGS: There are median sternotomy wires. Mild cardiomegaly is unchanged. There is no evidence for pulmonary edema. There is mild elevation of the left hemidiaphragm. Minimal left basilar opacity is noted. No pneumothorax or pleural effusion is noted. IMPRESSION: 1. Mild elevation of the left hemidiaphragm. Minimal left basilar opacity which favors atelectasis. 2. Mild cardiomegaly without evidence for pulmonary edema. ACT 112: Negative or not required by law. Electronically signed by: Jaime Arias M.D. 05/01/2020 4:52 PM Dictated: 05/01/20 1651 Transcribed: 05/01/201650 CT OF THE ABDOMEN AND PELVIS WITHOUT CONTRAST CLINICAL HISTORY: Abdominal pain. COMPARISON STUDY: CT of the abdomen and pelvis August 07, 2019. KUB August 08, 2019. TECHNIQUE: Axial images of the abdomen and pelvis were obtained without IV contrast. Images were reviewed in the axial, sagittal, and coronal planes. Au tomated exposure control was utilized for the study. A dose lowering technique was utilized adhering to the principles of ALARA. FINDINGS: A trace left pleural effusion with left pleural thickening and subpleural opacities similar to prior exam. This may be chronic. Mild splenomegaly is unchanged. Evaluation of the abdomen and pelvis is suboptimal on this unenhanced examination. The liver, adrenal glands and pancreas are unremarkable. Note is made of a 4 mm right renal calculus. Several left renal calculi are noted, including a 1.3 cm calculus within the upper pole. There are no ureteral calculi. There is no hydronephrosis. Note is made of mild bladder wall thickening. This may be chronic. Subtotal colectomy is noted with right lower quadrant ostomy. There is no evidence for a bowel obstruction. 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 No lymphadenopathy is present. There is no ascites. A 1.1 cm lesion within the midpole the left kidney measures above water attenuation. This is suboptimally assessed on this unenhanced examination. No suspicious osseous lesions are noted. No bowel wall thickening is identified on this unenhanced examination. There is no biliary or pancreatic ductal dilatation. The gallbladder is contracted. IMPRESSION: 1. Bilateral nephrolithiasis. No ureteral calculi or hydronephrosis. Mild bladder wall thickening which can be correlated with urinalysis. 2. Status post subtotal colectomy with right lower quadrant ileostomy and parastomal hernia. No bowel obstruction. 3. 1.1 cm left renal lesion. This could reflect a hyperdense cyst or small solid renal lesion. Nonemergent renal ultrasound is recommended. ACT 112: Negative or not required by law. Electronically signed by: Jaime Arias M.D. 05/01/2020 6:23 PM Dictated: 05/01/201810 Transcribed: 05/01/201815 ECG Data Indication: + abdominal pain Rate (beats per minute): 72 ECG Intervals/blocks: + First degree AV block, + Normal QRS and + Normal QT-c ECG ST segments: + Normal ST segments MDM Narrative Vital signs stable. Labs show leukocytosis of 17. Creatinine is at baseline. Lactic acid is within normal limits. Urinalysis does appear infected. CT of the abdomen shows cystitis. Patient failed outpatient treatment with Cipro. Patient will be admitted for IV antibiotics. Discussed the case with Dr. Goncalves [facility] hospitalist who agreed to evaluate the patient. Impression & Plan Acute UTI Discharge Plan Visit Data Chief Complaint: Nausea Stated Complaint: NAUSEA,VOMITING ED Provider: Cristopher Howell Discharge Problem: Acute UTI Patient Disposition: Being Evaluated by Hospitalist Discharge Instructions Interventions: ED Discharge Assessment Last Done: 05/01/20 22:22
[2020-05-02] MEDS ORDERED: INSULIN GLARGINE SOLOSTAR 100 UNITS/ML 3 ML PEN SQ ONE (00:15)
[2020-05-02] MEDS: CLOTRIMAZOLE/BETAMETHASONE CR 15 GM TUBE EXT SCH ×3 (00:55→22:07)
[2020-05-02] MEDS: MICONAZOLE NITRATE POWDER 43 GM TOP SCH ×3 (00:55→22:07)
[2020-05-02] MEDS: GABAPENTIN 300 MG CAP PO SCH ×3 (00:55→22:07)
[2020-05-02] MEDS: SODIUM CHLORIDE 0.9% 1000ML 1,000 ML IV SCH ×2 (00:56→18:21)
[2020-05-02] MEDS: ERTAPENEM SODIUM 1,000 MG in SODIUM CHLORIDE 0.9% 50 ML IV SCH ×2 (00:56→23:41)
[2020-05-02] MEDS: INSULIN ASPART 100 UNITS/ML 3 ML PEN SC SCH ×5 (01:31→22:09)
[2020-05-02] MEDS: oxyCODONE HCL IR 5 MG TAB (IMMEDIATE RELEASE) PO SCH ×4 (01:45→22:15)
[2020-05-02 07:17] LABS: Basophils # (auto) 0.03 K/uL (0-0.2); Basophils % (auto) 0.2 %; Eosinophils % (auto) 2.3 %; Immature Granulocytes # (auto) 0.03 K/uL (0.00-0.02); Immature Granulocytes % (auto) 0.2 %; Lymphocytes # (auto) 1.65 K/uL (1.2-3.4); Lymphocytes % (auto) 12.9 %; Mean Corpuscular Hemoglobin 31.8 pg (25-34); Mean Corpuscular Hgb Conc 32.6 g/dL (32-36); Mean Corpuscular Volume 97.7 fL (80-100); Mean Platelet Volume 9.8 fL (7.4-10.4); Monocytes # (auto) 0.37 K/uL (0.11-0.59); Monocytes % (auto) 2.9 %; Neutrophils # (auto) 10.46 K/uL (1.4-6.5); Neutrophils % (auto) 81.5 %; Platelet Count 185 K/uL (130-400); RDW Coefficient of Variation 16.4 % (11.5-14.5); RDW Standard Deviation 58.8 fL (36.4-46.3); White Blood Count 12.84 K/uL (4.8-10.8)
[2020-05-02 07:26] LABS: INR 1.3 (0.9-1.1)
[2020-05-02 07:43] LABS: BUN Creatinine Ratio 23.8 (10-20); Calcium 9.4 mg/dl (8.5-10.1); Creatinine Clr Calc Pharmacy 80.1 ml/min; Est GFR (African American) 67.1; Est GFR (Non-African American) 57.9; Potassium 4.3 mmol/L (3.5-5.1)
[2020-05-02 09:12] LABS: Estimated Average Glucose 140 mg/dl; Hemoglobin A1C 6.5 % (4.5-5.6)
[2020-05-02] MEDS: INSULIN GLARGINE SOLOSTAR 100 UNITS/ML 3 ML PEN SQ SCH ×2 (09:26→22:08)
--- NOTE | 2020-05-02 09:29 | Hospitalist Progress Note ---
Date of Service May 02, 2020 Assessment & Plan (1) Acute UTI: 49yo C male with history of paraplegia presenting with dysuria, 2-3 days of feeling ill with nausea/vomiting/chills and fatigue. Patient with prior history of ESBL UTI. Presently afebrile, BP slightly low at 93/63, non-toxic in appearance. He had a white blood count of 17.3 on admission to the emergency department with a neutrophil predominance. Cultures were obtained and he was started on ertapenem for empiric coverage and admitted to the general medical floors. His white blood cell trended down to 12.8 overnight, he reported feeling better. Cultures are pending plan to narrow antibiotics pending sensitivities. -Ertapenem for empiric coverage -Narrow pending speciation and sensitivities -Tylenol as needed for pain/fever (2) Coronary artery disease: Chronic. Stable. Patient with multiple stents in the past, s/p CABG x 1V LAD. 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 -Continue Atenolol 25mg po qAM. will defer to outpatient PCP for assembler caterpillar spider to consider selecting to more cardioselective beta-armen -Continue Lisinopril 2.5mg po daily -PCP to consider risks versus benefits of statin therapy (3) History of CVA (cerebrovascular accident): Patient suffered a CVA in setting of cardiac surgery in 2013, ?due to septic emboli in setting of infectious endocarditis. Patient paraplegic -Air mattress requested (4) HTN (hypertension): Blood pressure adequate at present -Continue Tenormin, Lisinopril -Continue to monitor -Hold medications for SBP < 90 (5) CKD (chronic kidney disease) stage 3, GFR 30-59 ml/min: BUN and Cr near baseline -Avoid nephrotoxic agents -Renal dosing where needed -Monitor BUN, Cr, electrolytes (6) DM type 2 (diabetes mellitus, type 2): Blood sugar 105. -A1c 6.5 -Continue home medication, Lantus 50u BID with ISS -Continue Neurontin 300mg po BID (7) Gout: Chronic. No acute flare at this time -Continue Allopurinol 300 mg po daily (8) Chronic pain of right lower extremity: Patient with trauma to RLE, currently in boot -Oxycodone 15mg po TID - patient is written for 30mg po TID but states that he typically splits his pills in half (9) DVT (deep venous thrombosis): Remote history, INR subtherapeutic on admission,1.3. Patient reports recent history of noncompliance with his medication, will transition to therapeutic Lovenox to bridge and provide his usual Coumadin doseuntil INR normalizes. -Warfarin 2.5 mg daily at 4:00 Lovenox 30 mg daily F/E/N - NSS at 80mL/hr x 2 liters, monitor electrolytes and replete as needed, AHA/CC diet as tolerated Ppx - Coumadin as above for h/o DVT Code - Full per discussion with patient Dispo - Admit to medical floor Admission and Anticipated Discharge Date Admission Date: May 01, 2020 Subjective Patient lying in bed in no acute distress. Patient reports no acute events overnight, his only complaint is related to the bed reporting that it is uncomfortable. Patient relate a history to me that it was similar to that and history and physical with no significant exceptions. Patient was confused how UTI could cause him to feel so sick. I explained to him that the significant UTI can affect the entire body. Patient also reports not taking his Coumadin properly, has missed a few doses over the past few days otherwise patient is tolerating his diet, voiding, output in ostomy, did not sleep well. Acute concerns related to hospital course otherwise all questions answered. Review of Systems Review of Systems: All systems reviewed & are unremarkable except as noted in HPI & below Physical Exam Physical Exam: General: In no acute distress, lying in bed HEENT: Normocephalic atraumatic Neck: Normal to visual inspection Cardiac: Palpated pulses bilaterally, symmetric, did not appreciate any signific ant rhythm or rate abnormalities Respiratory: Symmetric chest expansion bilaterally nonlabored breathing GI: Soft, nontender, nondistended, ostomy in place MSK: Paraplegic Skin: Cool, dry, intact Neuro: Alert and oriented Psych: Calm and cooperative Results & Data Results & Data ([facility]) Vital Signs (Past 12 Hours) Vital Signs Temp Pulse Pulse Resp BP BP Pulse Ox 05/02/20 08:09 36.5 C 70 16 129/68 92 05/01/20 22:53 36.7 C 70 20 93/63 L 92 05/01/20 22:00 75 12 124/79 95 09/11/20 21:30 75 20 132/93 Laboratory Results 05/02/20 05/02/20 05/02/20 Range/Units 08:24 06:44 06:44 WBC (4.8-10.8) K/uL RBC (4.7-6.1) M/uL Hgb (14.0-18.0) g/dL Hct (42-52) % MCV (80-100) fL MCH (25-34) pg MCHC (32-36) g/dL RDW Std Deviation (36.4-46.3) fL RDW Coeff of Lorenzo (11.5-14.5) % Plt Count (130-400) K/uL MPV (7.4-10.4) fL Immature Gran % (Auto) % Neut % (Auto) % Lymph % (Auto) % [place] % (Auto) % Eos % (Auto) % Baso % (Auto) % Neut # (Auto) (1.4-6.5) K/uL Lymph # (Auto) (1.2-3.4) K/uL [place] # (Auto) (0.11-0.59) K/uL Eos # (Auto) (0-0.5) K/uL Baso # (Auto) (0-0.2) K/uL Immature Gran # (Auto) (0.00-0.02) K/uL PT INR APTT PTT Ratio Sodium 138 (136-145) mmol/L Potassium 4.3 (3.5-5.1) mmol/L Chloride 111 H (98-107) mmol/L Carbon Dioxide 21 (21-32) mmol/L Anion Gap 7.0 (3-11) BUN 34 H (7-18) mg/dl Creatinine 1.43 H (0.6-1.4) mg/dl Est Cr Clr Drug Dosing 80.1 ml/min Est GFR ( Amer) 67.1 Est GFR (Non-Af Amer) 57.9 BUN/Creatinine Ratio 23.8 H (10-20) Glucose 109 H (70-99) mg/dl POC Glucose 98 (70-99) mg/dl Estimat Average Glucose 140 mg/dl Hemoglobin A1c 6.5 H (4.5-5.6) % Lactate Calcium 9.4 (8.5-10.1) mg/dl Magnesium (1.8-2.4) mg/dl Total Bilirubin (0.2-1) mg/dl AST (15-37) U/L ALT (12-78) U/L Alkaline Phosphatase (45-117) U/L Total Protein (6.4-8.2) gm/dl Albumin (3.4-5.0) gm/dl Globulin (2.5-4.0) gm/dl Albumin/Globulin Ratio (0.9-2) Lipase (73-393) U/L Specimen Hemolysis Urine Color Urine Appearance (Clear) Urine pH (4.5-7.5) Ur Specific [place] (1.000-1.030) Urine Protein (Negative) Urine Glucose (UA) (Negative) Urine Ketones (Negative) Urine Blood (Negative) Urine Nitrite (Negative) Urine Bilirubin (Negative) Urine Urobilinogen (Negative) Ur Leukocyte Esterase (Negative) Urine WBC (Auto) (0-5) /hpf Urine RBC (Auto) (0-4) /hpf U Hyaline Cast (Auto) (0-5) /lpf U Epithel Cells (Auto) (0-5) /lpf Urine Bacteria (Auto) (Negative) 05/02/20 05/02/20 05/02/20 Range/Units 06:44 06:44 00:48 WBC 12.84 H (4.8-10.8) K/uL RBC 4.40 L (4.7-6.1) M/uL Hgb 14.0 (14.0-18.0) g/dL Hct 43.0 (42-52) % MCV 97.7 (80-100) fL MCH 31.8 (25-34) pg MCHC 32.6 (32-36) g/dL RDW Std Deviation 58.8 H (36.4-46.3) fL RDW Coeff of Lorenzo 16.4 H (11.5-14.5) % Plt Count 185 (130-400) K/uL MPV 9.8 (7.4-10.4) fL Immature Gran % (Auto) 0.2 % Neut % (Auto) 81.5 % Lymph % (Auto) 12.9 % [place] % (Auto) 2.9 % Eos % (Auto) 2.3 % Baso % (Auto) 0.2 % Neut # (Auto) 10.46 H (1.4-6.5) K/uL Lymph # (Auto) 1.65 (1.2-3.4) K/uL [place] # (Auto) 0.37 (0.11-0.59) K/uL Eos # (Auto) 0.30 (0-0.5) K/uL Baso # (Auto) 0.03 (0-0.2) K/uL Immature Gran # (Auto) 0.03 H (0.00-0.02) K/uL PT 14.0 H INR 1.3 H APTT PTT Ratio Sodium (136-145) mmol/L Potassium (3.5-5.1) mmol/L Chloride (98-107) mmol/L Carbon Dioxide (21-32) mmol/L Anion Gap (3-11) BUN (7-18) mg/dl Creatinine (0.6-1.4) mg/dl Est Cr Clr Drug Dosing ml/min Est GFR ( Amer) Est GFR (Non-Af Amer) BUN/Creatinine Ratio (10-20) Glucose (70-99) mg/dl POC Glucose 86 (70-99) mg/dl Estimat Average Glucose mg/dl Hemoglobin A1c (4.5-5.6) % Lactate Calcium (8.5-10.1) mg/dl Magnesium (1.8-2.4) mg/dl Total Bilirubin (0.2-1) mg/dl AST (15-37) U/L ALT (12-78) U/L Alkaline Phosphatase (45-117) U/L Total Protein (6.4-8.2) gm/dl Albumin (3.4-5.0) gm/dl Globulin (2.5-4.0) gm/dl Albumin/Globulin Ratio (0.9-2) Lipase (73-393) U/L Specimen Hemolysis Urine Color Urine Appearance (Clear) Urine pH (4.5-7.5) Ur Specific [place] (1.000-1.030) Urine Protein (Negative) Urine Glucose (UA) (Negative) Urine Ketones (Negative) Urine Blood (Negative) Urine Nitrite (Negative) Urine Bilirubin (Negative) Urine Urobilinogen (Negative) Ur Leukocyte Esterase (Negative) Urine WBC (Auto) (0-5) /hpf Urine RBC (Auto) (0-4) /hpf U Hyaline Cast (Auto) (0-5) /lpf U Epithel Cells (Auto) (0-5) /lpf Urine Bacteria (Auto) (Negative) 05/01/20 05/01/20 05/01/20 Range/Units 22:34 22:34 22:34 WBC (4.8-10.8) K/uL RBC (4.7-6.1) M/uL Hgb (14.0-18.0) g/dL Hct (42-52) % MCV (80-100) fL MCH (25-34) pg MCHC (32-36) g/dL RDW Std Deviation (36.4-46.3) fL RDW Coeff of Lorenzo (11.5-14.5) % Plt Count (130-400) K/uL MPV (7.4-10.4) fL Immature Gran % (Auto) % Neut % (Auto) % Lymph % (Auto) % [place] % (Auto) % Eos % (Auto) % Baso % (Auto) % Neut # (Auto) (1.4-6.5) K/uL Lymph # (Auto) (1.2-3.4) K/uL [place] # (Auto) (0.11-0.59) K/uL Eos # (Auto) (0-0.5) K/uL Baso # (Auto) (0-0.2) K/uL Immature Gran # (Auto) (0.00-0.02) K/uL PT 13.5 H INR 1.3 H APTT 34.2 H PTT Ratio 1.2 Sodium (136-145) mmol/L Potassium 4.5 (3.5-5.1) mmol/L Chloride (98-107) mmol/L Carbon Dioxide (21-32) mmol/L Anion Gap (3-11) BUN (7-18) mg/dl Creatinine (0.6-1.4) mg/dl Est Cr Clr Drug Dosing ml/min Est GFR ( Amer) Est GFR (Non-Af Amer) BUN/Creatinine Ratio (10-20) Glucose (70-99) mg/dl POC Glucose (70-99) mg/dl Estimat Average Glucose mg/dl Hemoglobin A1c (4.5-5.6) % Lactate 0.9 Calcium (8.5-10.1) mg/dl Magnesium 1.8 (1.8-2.4) mg/dl Total Bilirubin (0.2-1) mg/dl AST 21 (15-37) U/L ALT (12-78) U/L Alkaline Phosphatase (45-117) U/L Total Protein (6.4-8.2) gm/dl Albumin (3.4-5.0) gm/dl Globulin (2.5-4.0) gm/dl Albumin/Globulin Ratio (0.9-2) Lipase (73-393) U/L Specimen Hemolysis Urine Color Urine Appearance (Clear) Urine pH (4.5-7.5) Ur Specific [place] (1.000-1.030) Urine Protein (Negative) Urine Glucose (UA) (Negative) Urine Ketones (Negative) Urine Blood (Negative) Urine Nitrite (Negative) Urine Bilirubin (Negative) Urine Urobilinogen (Negative) Ur Leukocyte Esterase (Negative) Urine WBC (Auto) (0-5) /hpf Urine RBC (Auto) (0-4) /hpf U Hyaline Cast (Auto) (0-5) /lpf U Epithel Cells (Auto) (0-5) /lpf Urine Bacteria (Auto) (Negative) 05/01/20 05/01/20 05/01/20 Range/Units 17:34 17:34 17:34 WBC (4.8-10.8) K/uL RBC (4.7-6.1) M/uL Hgb (14.0-18.0) g/dL Hct (42-52) % MCV (80-100) fL MCH (25-34) pg MCHC (32-36) g/dL RDW Std Deviation (36.4-46.3) fL RDW Coeff of Lorenzo (11.5-14.5) % Plt Count (130-400) K/uL MPV (7.4-10.4) fL Immature Gran % (Auto) % Neut % (Auto) % Lymph % (Auto) % [place] % (Auto) % Eos % (Auto) % Baso % (Auto) % Neut # (Auto) (1.4-6.5) K/uL Lymph # (Auto) (1.2-3.4) K/uL [place] # (Auto) (0.11-0.59) K/uL Eos # (Auto) (0-0.5) K/uL Baso # (Auto) (0-0.2) K/uL Immature Gran # (Auto) (0.00-0.02) K/uL PT INR APTT PTT Ratio Sodium 136 (136-145) mmol/L Potassium (3.5-5.1) mmol/L Chloride 107 (98-107) mmol/L Carbon Dioxide 22 (21-32) mmol/L Anion Gap 7.0 (3-11) BUN 41 H (7-18) mg/dl Creatinine 1.69 H (0.6-1.4) mg/dl Est Cr Clr Drug Dosing 67.6 ml/min Est GFR ( Amer) 54.8 Est GFR (Non-Af Amer) 47.3 BUN/Creatinine Ratio 24.1 H (10-20) Glucose 105 H (70-99) mg/dl POC Glucose (70-99) mg/dl Estimat Average Glucose mg/dl Hemoglobin A1c (4.5-5.6) % Lactate Cancelled Calcium 8.6 (8.5-10.1) mg/dl Magnesium (1.8-2.4) mg/dl Total Bilirubin 0.8 (0.2-1) mg/dl AST (15-37) U/L ALT 24 (12-78) U/L Alkaline Phosphatase 185 H (45-117) U/L Total Protein 8.2 (6.4-8.2) gm/dl Albumin 3.0 L (3.4-5.0) gm/dl Globulin 5.2 H (2.5-4.0) gm/dl Albumin/Globulin Ratio 0.6 L (0.9-2) Lipase 153 (73-393) U/L Specimen Hemolysis Urine Color Yellow Urine Appearance Clear (Clear) Urine pH 5.0 (4.5-7.5) Ur Specific [place] 1.014 (1.000-1.030) Urine Protein Trace H (Negative) Urine Glucose (UA) Negative (Negative) Urine Ketones Negative (Negative) Urine Blood Negative (Negative) Urine Nitrite Negative (Negative) Urine Bilirubin Negative (Negative) Urine Urobilinogen Negative (Negative) Ur Leukocyte Esterase 1+ H (Negative) Urine WBC (Auto) 10-30 H (0-5) /hpf Urine RBC (Auto) 0-4 (0-4) /hpf U Hyaline Cast (Auto) 1-5 (0-5) /lpf U Epithel Cells (Auto) >30 H (0-5) /lpf Urine Bacteria (Auto) Negative (Negative) 05/01/20 05/01/20 Range/Units 17:34 17:34 WBC 17.23 H (4.8-10.8) K/uL RBC 4.57 L (4.7-6.1) M/uL Hgb 14.7 (14.0-18.0) g/dL Hct 44.3 (42-52) % MCV 96.9 (80-100) fL MCH 32.2 (25-34) pg MCHC 33.2 (32-36) g/dL RDW Std Deviation 59.1 H (36.4-46.3) fL RDW Coeff of Lorenzo 16.7 H (11.5-14.5) % Plt Count 236 (130-400) K/uL MPV 10.0 (7.4-10.4) fL Immature Gran % (Auto) 0.3 % Neut % (Auto) 84.5 % Lymph % (Auto) 9.5 % [place] % (Auto) 3.5 % Eos % (Auto) 2.0 % Baso % (Auto) 0.2 % Neut # (Auto) 14.58 H (1.4-6.5) K/uL Lymph # (Auto) 1.63 (1.2-3.4) K/uL [place] # (Auto) 0.60 H (0.11-0.59) K/uL Eos # (Auto) 0.34 (0-0.5) K/uL Baso # (Auto) 0.03 (0-0.2) K/uL Immature Gran # (Auto) 0.05 H (0.00-0.02) K/uL PT Cancelled INR Cancelled APTT Cancelled PTT Ratio Cancelled Sodium (136-145) mmol/L Potassium (3.5-5.1) mmol/L Chloride (98-107) mmol/L Carbon Dioxide (21-32) mmol/L Anion Gap (3-11) BUN (7-18) mg/dl Creatinine (0.6-1.4) mg/dl Est Cr Clr Drug Dosing ml/min Est GFR ( Amer) Est GFR (Non-Af Amer) BUN/Creatinine Ratio (10-20) Glucose (70-99) mg/dl POC Glucose (70-99) mg/dl Estimat Average Glucose mg/dl Hemoglobin A1c (4.5-5.6) % Lactate Calcium (8.5-10.1) mg/dl Magnesium (1.8-2.4) mg/dl Total Bilirubin (0.2-1) mg/dl AST (15-37) U/L ALT (12-78) U/L Alkaline Phosphatase (45-117) U/L Total Protein (6.4-8.2) gm/dl Albumin (3.4-5.0) gm/dl Globulin (2.5-4.0) gm/dl Albumin/Globulin Ratio (0.9-2) Lipase (73-393) U/L Specimen Hemolysis Urine Color Urine Appearance (Clear) Urine pH (4.5-7.5) Ur Specific [place] (1.000-1.030) Urine Protein (Negative) Urine Glucose (UA) (Negative) Urine Ketones (Negative) Urine Blood (Negative) Urine Nitrite (Negative) Urine Bilirubin (Negative) Urine Urobilinogen (Negative) Ur Leukocyte Esterase (Negative) Urine WBC (Auto) (0-5) /hpf Urine RBC (Auto) (0-4) /hpf U Hyaline Cast (Auto) (0-5) /lpf U Epithel Cells (Auto) (0-5) /lpf Urine Bacteria (Auto) (Negative) Medications Administered Current Inpatient Medications Acetaminophen (Acetaminophen 325 Mg Tab) 650 mg PO Q4H PRN PRN Reason: pain/fever Stop: 05/31/20 23:15 Allopurinol (Allopurinol 300 Mg Tab) 300 mg PO DAILY CLAUDIA Stop: 06/01/20 08:59 Ascorbic Acid (Ascorbic Acid 500 Mg Tab) 500 mg PO DAILY CLAUDIA Stop: 06/01/20 08:59 Atenolol (Atenolol 25 Mg Tablet) 25 mg PO QAM CLAUDIA Stop: 06/01/20 08:59 Betamethasone/Clotrimazole (Clotrimazole/Betamethasone Cr 15 Gm Tube) 1 appln EXT BID CLAUDIA Stop: 05/31/20 23:15 Last Admin: 05/02/20 00:55 Dose: 1 appln Documented by: Dextrose (Dextrose 50% 50 Ml Syringe) 25 - 50 ml IV UD PRN; Protocol PRN Reason: Hypoglycemia Protocol Stop: 05/31/20 23:15 Famotidine (Famotidine 40 Mg Tablet) 40 mg PO DAILY CLAUDIA Stop: 06/01/20 08:59 Gabapentin (Gabapentin 300 Mg Cap) 300 mg PO BID CLAUDIA Stop: 05/31/20 23:15 Last Admin: 05/02/20 00:55 Dose: 300 mg Documented by: Glucagon (Glucagon For Inj 1 Mg Vial) 1 mg SQ UD PRN; Protocol PRN Reason: Hypoglycemia Protocol Stop: 05/31/20 23:15 Glucose (Glucose 10 Tabs/Tube) 4 - 8 tabs PO UD PRN; Protocol PRN Reason: Hypoglycemia Protocol Stop: 05/31/20 23:15 Glucose (Glucose 40% Gel 15 Gm Tube) 15 - 30 gm PO UD PRN; Protocol PRN Reason: Hypoglycemia Protocol Stop: 05/31/20 23:15 Ertapenem 1,000 mg/ Sodium (Chloride) 60 mls @ 100 mls/hr IV Q24H CLAUDIA Stop: 05/12/20 00:00 Last Infusion: 05/02/20 04:56 Dose: Infused Documented by: Sodium Chloride (Nss 1000ml) 1,000 mls @ 80 mls/hr IV .[id number] CLAUDIA Stop: 05/03/20 00:15 Last Admin: 05/02/20 00:56 Dose: 80 mls/hr Documented by: Insulin Aspart (Insulin Aspart 100 Units/Ml 3 Ml Pen) 0 units SC ACHS CLAUDIA Stop: 06/01/20 00:00 Last Admin: 05/02/20 01:31 Dose: Not Given Documented by: Insulin Glargine (Insulin Glargine Solostar 100 Units/Ml 3 Ml Pen) 50 units SQ BID CLAUDIA Stop: 06/01/20 08:59 Lisinopril (Lisinopril 2.5 Mg Tab) 2.5 mg PO DAILY CLAUDIA Stop: 06/01/20 08:59 Miconazole Nitrate (Miconazole Nitrate Powder 43 Gm) 1 appln TOP BID CLAUDIA Stop: 05/31/20 23:15 Last Admin: 05/02/20 00:55 Dose: 1 appln Documented by: Miscellaneous (Carbohydrates For Hypoglycemia ) 15 - 30 gm PO UD PRN PRN Reason: Hypoglycemia Protocol Stop: 05/31/20 23:15 Ondansetron HCl (Ondansetron Inj 2 Mg/Ml 2 Ml Vial) 4 mg IV Q6H PRN PRN Reason: Nausea Stop: 05/31/20 23:15 Oxycodone HCl (Oxycodone Hcl Ir 5 Mg Tab (Immediate Release)) 15 mg PO TID CLAUDIA Stop: 05/15/20 23:15 Last Admin: 05/02/20 01:45 Dose: Not Given Documented by: Warfarin Sodium (Warfarin Sod 2.5 Mg Tab) 2.5 mg PO DAILY@1600 [facility] Stop: 06/01/20 15:59 Resident Activity Tracking Resident Involvement: Resident Care Provided Care Provided: Adult [facility] (1) Gout Chronicity: unspecified Gout etiology: unspecified cause Gout site: unspecified site Qualified Code(s): M10.9 - Gout, unspecified (2) DM type 2 (diabetes mellitus, type 2) Diabetes mellitus complication status: with other specified complication Diabetes mellitus snf insulin use: with snf use Qualified Code(s): E11.69 - Type 2 diabetes mellitus with other specified complication; Z79.4 - longterm (current) use of insulin (3) Coronary artery disease Associated angina: without angina Coronary Disease-Associated Artery/Lesion type: [place] artery [place] vs. transplanted heart: [place] heart Qualified Code(s): I25.10 - Atherosclerotic heart disease of [place] coronary artery without angina pectoris (4) HTN (hypertension) Hypertension type: essential hypertension Qualified Code(s): I10 - Essential (primary) hypertension
[2020-05-02] MEDS: FAMOTIDINE 40 MG TABLET PO SCH (09:32)
[2020-05-02] MEDS: ATENOLOL 25 MG TABLET PO SCH (09:33)
[2020-05-02] MEDS: ASCORBIC ACID 500 MG TAB PO SCH (09:33)
[2020-05-02] MEDS: allopurinoL 300 MG TAB PO SCH (09:33)
[2020-05-02] MEDS: lisinopril 2.5 MG TAB PO SCH (09:33)
--- NOTE | 2020-05-02 09:39 | Electrocardiogram Report ---
Test Reason : Blood Pressure : / mmHG Vent. Rate : 072 BPM Atrial Rate : 072 BPM P-R Int : 212 ms QRS Dur : 100 ms QT Int : 404 ms P-R-T Axes : 006 027 045 degrees QTc Int : 442 ms Sinus rhythm with 1st degree A-V block Otherwise normal ECG When compared with ECG of 08-FEB-2019 22:31, No significant change was found Confirmed by Andrey Mckeon ([id number]) on 05/02/2020 9:38:53 AM Referred By: Demarcus Nicholson Confirmed By:Andrey Mckeon
[2020-05-02] MEDS ORDERED: POTASSIUM PHOS 3 MMOL/1 ML INFUSION IV SCH (10:00)
[2020-05-02] MEDS ORDERED: POTASSIUM PHOSPHATE 21 MMOL in SODIUM CHLORIDE 0.9% 500 ML IV ONE (10:30)
[2020-05-02] MEDS: ENOXAPARIN INJ 30 MG/0.3 ML SYR SQ SCH ×2 (12:18→22:07)
[2020-05-02] MEDS: WARFARIN SOD 2.5 MG TAB PO SCH (18:19)
[2020-05-03 06:13] LABS: Basophils # (auto) 0.03 K/uL (0-0.2); Basophils % (auto) 0.3 %; Eosinophils # (auto) 0.28 K/uL (0-0.5); Eosinophils % (auto) 2.4 %; Hematocrit (blood only) 40.7 % (42-52); Hemoglobin 12.9 g/dL (14.0-18.0); Immature Granulocytes # (auto) 0.01 K/uL (0.00-0.02); Immature Granulocytes % (auto) 0.1 %; Lymphocytes # (auto) 1.98 K/uL (1.2-3.4); Lymphocytes % (auto) 16.9 %; Mean Corpuscular Hemoglobin 31.2 pg (25-34); Mean Corpuscular Hgb Conc 31.7 g/dL (32-36); Mean Corpuscular Volume 98.5 fL (80-100); Monocytes # (auto) 0.72 K/uL (0.11-0.59); Monocytes % (auto) 6.1 %; Neutrophils % (auto) 74.2 %; Platelet Count 196 K/uL (130-400); RDW Coefficient of Variation 16.3 % (11.5-14.5); RDW Standard Deviation 58.7 fL (36.4-46.3); Red Blood Count 4.13 M/uL (4.7-6.1); White Blood Count 11.72 K/uL (4.8-10.8)
[2020-05-03 06:23] LABS: INR 1.4 (0.9-1.1); Prothrombin Time 14.6 Seconds (9.0-12.0)
[2020-05-03 06:33] LABS: BUN Creatinine Ratio 20.5 (10-20); Calcium 9.7 mg/dl (8.5-10.1); Creatinine Clr Calc Pharmacy 86.1 ml/min; Est GFR (African American) 73.3; Est GFR (Non-African American) 63.2; Potassium 3.9 mmol/L (3.5-5.1)
[2020-05-03] MEDS: GABAPENTIN 300 MG CAP PO SCH ×2 (09:26→21:35)
[2020-05-03] MEDS: FAMOTIDINE 40 MG TABLET PO SCH (09:26)
[2020-05-03] MEDS: allopurinoL 300 MG TAB PO SCH (09:26)
[2020-05-03] MEDS: lisinopril 2.5 MG TAB PO SCH (09:26)
[2020-05-03] MEDS: ASCORBIC ACID 500 MG TAB PO SCH (09:26)
[2020-05-03] MEDS: ENOXAPARIN INJ 30 MG/0.3 ML SYR SQ SCH ×2 (09:26→21:37)
[2020-05-03] MEDS: ATENOLOL 25 MG TABLET PO SCH (09:26)
[2020-05-03] MEDS: INSULIN GLARGINE SOLOSTAR 100 UNITS/ML 3 ML PEN SQ SCH ×2 (09:27→21:54)
[2020-05-03] MEDS: MICONAZOLE NITRATE POWDER 43 GM TOP SCH ×2 (09:27→21:36)
[2020-05-03] MEDS: CLOTRIMAZOLE/BETAMETHASONE CR 15 GM TUBE EXT SCH ×2 (09:27→21:35)
[2020-05-03] MEDS: INSULIN ASPART 100 UNITS/ML 3 ML PEN SC SCH ×4 (09:31→21:57)
[2020-05-03] MEDS: oxyCODONE HCL IR 5 MG TAB (IMMEDIATE RELEASE) PO SCH ×3 (09:42→21:45)
[2020-05-03] MEDS ORDERED: PHARMACY GLYCEMIC MGMT CONSULT PRN (10:03)
--- NOTE | 2020-05-03 10:13 | Pharmacy Report ---
Pharmacy Glycemic Short Note 2 - Date of Service May 03, 2020 - Glycemic Short BSG Results (Last 24 hours): 05/02/20 05/02/20 05/02/20 12:07 16:54 20:32 Glucose POC Glucose 137 H 142 H 165 H 05/03/20 05/03/20 05:50 08:20 Glucose 67 L POC Glucose 94 OUTPATIENT ANTIDIABETIC REGIMEN: * A1c = 6.5% (05/02/20) * Toujeo 50 units BID * Aspart TID with meals per scale ASSESSMENT: * Hema is a 49 yo T2DM with excellent outpatient glycemic control on basal + bolus insulin * Adequate glycemic control over the past 24 hours. Provider indicated that patient is not eating reliably. He had an episode of emesis last evening. * Fasting BSG of 94 mg/dL is at goal. I will change Lantus to dose per scale (40-50 units) so that patient received smaller dose if BSGs start to trend downward. * I will slightly tighten Novolog CF/CR since BSG trends up throughout the day. PLAN FOR INPATIENT GLYCEMIC CONTROL: * Basal insulin * Lantus 40-50 units SQ BID (40 units for BSG < 120 mg/dL) * Bolus insulin * NovoLog per scale ACHS or Q6hrs while NPO * Goal Range: Low 100 mg/dL - High 140 mg/dL * Correction Factor: 15 mg/dL/unit * Nutritional / Prandial insulin per carb ratio of 1 unit per 6 grams CHO consumed PLAN FOR DISCHARGE: * A1c of 6.5% indicates excellent control * Can likely continue home regimen on discharge
--- NOTE | 2020-05-03 11:46 | Hospitalist Progress Note ---
Date of Service May 03, 2020 Assessment & Plan (1) Acute UTI: 49yo C male with history of paraplegia presenting with dysuria, 2-3 days of feeling ill with nausea/vomiting/chills and fatigue. Patient with prior history of ESBL UTI. Presently afebrile, BP slightly low at 93/63, non-toxic in appearance. He had a white blood count of 17.3 on admission to the emergency department with a neutrophil predominance. Cultures were obtained and he was started on ertapenem for empiric coverage and admitted to the general medical floors. His white blood cell trended down to 12.8 overnight, he reported feeling better. Cultures are pending plan to narrow antibiotics pending sensitivities. -Ertapenem for empiric coverage -Narrow pending speciation and sensitivities -Blood cultures negative urine cultures demonstrate pinpoint growth currently being reincubated. -Tylenol as needed for pain/fever -Patient is grossly asymptomatic (2) Coronary artery disease: Chronic. Stable. Patient with multiple stents in the past, s/p CABG x 1V LAD. Patient had severe mitral regurgitation in setting of mitral valve leaflet perforation and had mitral valve repair in 2016. -Continue Atenolol 25mg po qAM. 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 Patient paraplegic -Air mattress requested regular mattress and doing well. (4) HTN (hypertension): Blood pressure adequate at present -Continue Tenormin, Lisinopril -Continue to monitor -Hold medications for SBP < 90 (5) CKD (chronic kidney disease) stage 3, GFR 30-59 ml/min: BUN and Cr near baseline -Avoid nephrotoxic agents -Renal dosing where needed -Monitor BUN, Cr, electrolytes (6) DM type 2 (diabetes mellitus, type 2): Blood sugar 105. -A1c 6.5 -Continue home medication, Lantus 50u BID with ISS -Continue Neurontin 300mg po BID (7) Gout: Chronic. No acute flare at this time -Continue Allopurinol 300 mg po daily (8) Chronic pain of right lower extremity: Patient with trauma to RLE, currently in boot -Oxycodone 15mg po TID - patient is written for 30mg po TID but states that he typically splits his pills in half (9) DVT (deep venous thrombosis): Remote history, INR subtherapeutic on admission,1.3. Patient reports recent history of noncompliance with his medication, will transition to therapeutic Lovenox to bridge and provide his usual Coumadin doseuntil INR normalizes. -Warfarin 2.5 mg daily at 4:00 Lovenox 30 mg daily -INR:1.3->1.3->1.4 -trending in the correct direction, F/E/N - NSS at 80mL/hr x 2 liters, monitor electrolytes and replete as needed, AHA/CC diet as tolerated Ppx - Coumadin as above for h/o DVT Code - Full per discussion with patient Dispo -pending speciation, and appropriate antibiotic selection and INR normalization. Admission and Anticipated Discharge Date Admission Date: May 01, 2020 Subjective Patient lying in bed this morning in no acute distress, reported sleeping well overnight, reported doing better after the change his diet. Patient denies fevers, chills, nausea, vomiting, other constitutional symptoms. Patient reports that he is feeling significantly better than when he presented. I explained to the patient that his symptoms are likely a result of the urinary tract infection and given his history of resistant ESBL, it is imperative that we obtain speciation and culture of his urine. Urine culture this morning demonstrated pinpoint growth and is currently being reincubated. results pending. Otherwise patient is producing output via his ostomy, voiding, rhianna ating his diet, slept well overnight. Acute concerns are related to discharge, all questions were answered. Review of Systems Review of Systems: All systems reviewed & are unremarkable except as noted in HPI & below Physical Exam Physical Exam: General: In no acute distress, lying in bed HEENT: Normocephalic atraumatic Neck: Normal to visual inspection Cardiac: Palpated pulses bilaterally, symmetric, did not appreciate any significant rhythm or rate abnormalities Respiratory: Symmetric chest expansion bilaterally nonlabored breathing GI: Soft, nontender, nondistended, ostomy in place MSK: Paraplegic Skin: Cool, dry, intact Neuro: Alert and oriented Psych: Calm and cooperative Results & Data Results & Data ([facility]) Vital Signs (Past 12 Hours) Vital Signs Temp Pulse Resp BP Pulse Ox 05/03/20 07:08 36.6 C 63 18 102/69 96 05/02/20 23:57 37.0 C 80 16 101/65 95 Resident Activity Tracking Resident Involvement: Resident Care Provided Care Provided: Adult [facility] Medicine (1) Gout Chronicity: unspecified Gout etiology: unspecified cause Gout site: [facility] ecified site Qualified Code(s): M10.9 - Gout, unspecified (2) DM type 2 (diabetes mellitus, type 2) Diabetes mellitus complication status: with other specified complication Diabetes mellitus fpc insulin use: with fpc use Qualified Code(s): E11.69 - Type 2 diabetes mellitus with other specified complication; Z79.4 - USP (current) use of insulin (3) Coronary artery disease Associated angina: without angina Coronary Disease-Associated Artery/Lesion type: [place] artery [place] vs. transplanted heart: [place] heart Qualified Code(s): I25.10 - Atherosclerotic heart disease of [place] coronary artery without angina pectoris (4) HTN (hypertension) Hypertension type: essential hypertension Qualified Code(s): I10 - Essential (primary) hypertension
[2020-05-03] MEDS: WARFARIN SOD 2.5 MG TAB PO SCH (15:43)
[2020-05-03] MEDS: ERTAPENEM SODIUM 1,000 MG in SODIUM CHLORIDE 0.9% 50 ML IV SCH (23:13)
[2020-05-04 06:13] LABS: Basophils # (auto) 0.02 K/uL (0-0.2); Basophils % (auto) 0.2 %; Eosinophils % (auto) 2.6 %; Hematocrit (blood only) 41.7 % (42-52); Hemoglobin 13.3 g/dL (14.0-18.0); Immature Granulocytes # (auto) 0.03 K/uL (0.00-0.02); Immature Granulocytes % (auto) 0.3 %; Lymphocytes # (auto) 1.76 K/uL (1.2-3.4); Lymphocytes % (auto) 15.5 %; Mean Corpuscular Hemoglobin 31.4 pg (25-34); Mean Corpuscular Hgb Conc 31.9 g/dL (32-36); Mean Corpuscular Volume 98.6 fL (80-100); Mean Platelet Volume 10.1 fL (7.4-10.4); Monocytes # (auto) 0.46 K/uL (0.11-0.59); Neutrophils # (auto) 8.81 K/uL (1.4-6.5); Neutrophils % (auto) 77.4 %; Platelet Count 195 K/uL (130-400); RDW Coefficient of Variation 16.1 % (11.5-14.5); RDW Standard Deviation 58.4 fL (36.4-46.3); Red Blood Count 4.23 M/uL (4.7-6.1); White Blood Count 11.38 K/uL (4.8-10.8)
[2020-05-04 06:26] LABS: INR 1.4 (0.9-1.1); Prothrombin Time 14.5 Seconds (9.0-12.0)
[2020-05-04 06:53] LABS: BUN Creatinine Ratio 21.6 (10-20); Calcium 8.8 mg/dl (8.5-10.1); Creatinine Clr Calc Pharmacy 80.7 ml/min; Est GFR (African American) 67.7; Est GFR (Non-African American) 58.4; Potassium 4.6 mmol/L (3.5-5.1)
[2020-05-04] MEDS: MICONAZOLE NITRATE POWDER 43 GM TOP SCH (09:02)
[2020-05-04] MEDS: ASCORBIC ACID 500 MG TAB PO SCH (09:03)
[2020-05-04] MEDS: allopurinoL 300 MG TAB PO SCH (09:03)
[2020-05-04] MEDS: FAMOTIDINE 40 MG TABLET PO SCH (09:03)
[2020-05-04] MEDS: GABAPENTIN 300 MG CAP PO SCH (09:04)
[2020-05-04] MEDS: CLOTRIMAZOLE/BETAMETHASONE CR 15 GM TUBE EXT SCH (09:05)
[2020-05-04] MEDS: ATENOLOL 25 MG TABLET PO SCH (09:06)
[2020-05-04] MEDS: lisinopril 2.5 MG TAB PO SCH (09:06)
[2020-05-04] MEDS: oxyCODONE HCL IR 5 MG TAB (IMMEDIATE RELEASE) PO SCH ×2 (09:08→13:49)
[2020-05-04] MEDS: INSULIN ASPART 100 UNITS/ML 3 ML PEN SC SCH ×2 (09:11→12:47)
[2020-05-04] MEDS: INSULIN GLARGINE SOLOSTAR 100 UNITS/ML 3 ML PEN SQ SCH (09:12)
[2020-05-04] MEDS: ENOXAPARIN INJ 30 MG/0.3 ML SYR SQ SCH (09:17)
--- NOTE | 2020-05-04 10:15 | Pharmacy Report ---
Pharmacy Glycemic Short Note 2 - Date of Service May 04, 2020 - Glycemic Short BSG Results (Last 24 hours): 05/03/20 05/03/20 05/03/20 12:03 17:15 20:50 Glucose POC Glucose 119 H 131 H 168 H 05/04/20 05/04/20 05:15 08:06 Glucose 101 H POC Glucose 93 OUTPATIENT ANTIDIABETIC REGIMEN: * A1c = 6.5% (05/02/20) * Toujeo 50 units BID * Aspart TID with meals per scale ASSESSMENT: 05/04 * Patient received total of 112 units of insulin yesterday, of which 100 were basal insulin * Fasting BSG 93 mg/dL - per scale he will receive 40 units this AM which is ~10% decrease in basal. Plan to utilize scale for HS Lantus in case BSGs remain on lower end of range * Continue same CF/CR 05/03 * Hema is a 49 yo T2DM with excellent outpatient glycemic control on basal + bolus insulin * Adequate glycemic control over the past 24 hours. Provider indicated that patient is not eating reliably. He had an episode of emesis last evening. * Fasting BSG of 94 mg/dL is at goal. I will change Lantus to dose per scale (40-50 units) so that patient received smaller dose if BSGs start to trend downward. * I will slightly tighten Novolog CF/CR since BSG trends up throughout the day. PLAN FOR INPATIENT GLYCEMIC CONTROL: * Basal insulin * Lantus 40-50 units SQ BID (40 units for BSG < 160 mg/dL) * Bolus insulin * NovoLog per scale ACHS or Q6hrs while NPO * Goal Range: Low 100 mg/dL - High 140 mg/dL * Correction Factor: 15 mg/dL/unit * Nutritional / Prandial insulin per carb ratio of 1 unit per 6 grams CHO consumed PLAN FOR DISCHARGE: * A1c of 6.5% indicates excellent control * Can likely continue home regimen on discharge
--- NOTE | 2020-05-04 10:25 | Hospitalist Progress Note ---
Date of Service May 04, 2020 Assessment & Plan Admission and Anticipated Discharge Date Admission Date: May 01, 2020 Subjective Doing well today, he was anxious to go home today if possible. He was not having any urinary symptoms this morning and felt improved from one day prior. Review of Systems Review of Systems: Constitutional: denies fever, admits chills Cardiac: denies chest pain, palpitations GI: denies N/V Pulm: denies cough, shortness of breath : Denies frequency, urgency, paini Physical Exam Constitutional: well developed and well nourished; no acute distress Results & Data Results & Data ([facility]) Vital Signs (Past 12 Hours) Vital Signs Temp Pulse Pulse Resp BP Pulse Ox 05/04/20 09:05 69 124/80 05/04/20 07:17 36.6 C 62 20 118/74 97 05/03/20 23:06 36.9 C 72 14 105/63 95 CBC Results Results Complete Blood Count Results: RBC 4.23 M/uL (4.7-6.1) L 05/04/20 WBC 11.38 K/uL (4.8-10.8) H 05/04/20 Hgb 13.3 g/dL (14.0-18.0) L 05/04/20 Hct 41.7 % (42-52) L 05/04/20 Plt Count 195 K/uL (130-400) 05/04/20 Chemistry ([facility]) Results [facility] Results: Sodium 137 mmol/L (136-145) 05/04/20 Potassium 4.6 mmol/L (3.5-5.1) 05/04/20 Chloride 107 mmol/L (98-107) 05/04/20 BUN 31 mg/dl (7-18) H 05/04/20 Creatinine 1.42 mg/dl (0.6-1.4) H 05/04/20 Glucose 101 mg/dl (70-99) H 05/04/20
--- NOTE | 2020-05-04 19:40 | Discharge Summary ---
Date of Service May 04, 2020 Admission HPI Per Admitting Provider Hema Grajeda is a 49yo C male with history of paraplegia, CAD, CKD, DM, CHF presenting with dysuria. Patient recently completed a course of antibiotics for UTI, he believes it was Ciprofloxacin. He has been feeling ill, nausea with vomiting x 1 episode, fatigue, chills and poor appetite for the last 2-3 days. He has also been experiencing dysuria. Patient banged his right foot on the door recently - is currently in a walking boot. Reports some discomfort. No additional complaints at this time. Has history of ESBL UTI with Proteus. Denies fever, flank pain, chest pain, SOB, cough, diarrhea. No Covid-19 concerns. ER Course: Ceftriaxone Principal Diagnosis complicated UTI Discharge Exam gen aaox3 pleasant nad heent nc at mmm breathing unlabored no accessory msucles good effort skin no rashes no pallor or icterus. Discharge Data Allergies Allergy/AdvReac Type Severity Reaction Status Date / Time No Known Drug Allergies Allergy Unknown Verified 05/01/20 19:48 Consultations 05/01/20 18:43 ED Decision to Admit Stat Ordered Studies 05/01/20 16:27 CT abd pelvis wo con Stat Hospital Course (1) Acute UTI: 49yo C male with history of paraplegia presenting with dysuria, 2-3 days of feeling ill with nausea/vomiting/chills and fatigue. Patient with prior history of ESBL UTI. -was on empiric ertapenem - culture just grew skin tosin - but suspect either skin tosin became dominant and outgrew pathogenic bug, or prehospital abx may have sterilized culture. got better nicely on ertapenem, prior cultures showed sensitivity to all cephalosporins - therefore will dc home on cefdinir to complete 7 days of abx treatment (2) Coronary artery disease: Chronic. Stable. Patient with multiple stents in the past, s/p CABG x 1V LAD. Patient had severe mitral regurgitation in setting of mitral valve leaflet perforation and had mitral valve repair in 2016. -Continue Atenolol 25mg po qAM. Consider switching to a more cardio-selective BB as outpt -Continue Lisinopril 2.5mg po daily -Patient currently not on a statin or ASA at this time - again will defer to outpt in this regard (3) History of CVA (cerebrovascular accident): Patient suffered a CVA in setting of cardiac surgery in 2013, ?due to septic emboli in setting of infectious endocarditis. Patient paraplegic (4) HTN (hypertension): Blood pressure adequate at present -Continue Tenormin, Lisinopril -outpt f/u (5) CKD (chronic kidney disease) stage 3, GFR 30-59 ml/min: BUN and Cr near baseline -Avoid nephrotoxic agents (6) DM type 2 (diabetes mellitus, type 2): A1c 6.5% (7) Gout: Chronic. No acute flare at this time -Continue Allopurinol 300 mg po daily (8) Chronic pain of right lower extremity: Patient with trauma to RLE, currently in boot -Oxycodone 15mg po TID - patient is written for 30mg po TID but states that he typically splits his pills in half (9) DVT (deep venous thrombosis): Remote history -Continue Coumadin -INR low - but with remote hx does not need ongoing bridging just close f/u and titration of coumadin back to therapeutic INR (10) Family history of prostate cancer: dad at around age 60. pt inquires about screening for himself. 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 Total Time Total Time Spent Total Time Spent (In Minutes): <30 Discharge Plan Discharge Items Patient Disposition: Home - Self-Care Reason For Visit: DYSURIA Discharge Diagnosis: UTI Activity: Per Instructions section Non-emergency contact: Primary Care Provider Call non-emergency contact if: you have a fever Follow-up/Referrals: Demarcus Nicholson DO [Primary Care Provider] - Diet: Carb Consistent or DM2 Addtl Attending Provider Instructions: Urinary tract infection (UTI) You have a history of UTI's and you came in with pain with urination consistent with this. You were given antibiotics prior to coming in to the hospital from your primary doctor. You were given an IV antibiotic initially when you came into the hospital. Your urine cultures did not grow anything, likely since you were on an antibiotic prior to coming to the hospital. We have prior urine culture results that we used to choose your antibiotics to go home with. You will have a total of 7 days of antibiotics total. You will have 4 days when you go home of antibiotics starting tomorrow 05/05. You should follow up with your primary doctor this week to discuss your hospitalization. If you develop fevers, chills, and/or nausea then call or come in to get evaluated. Prostate cancer screening As we discussed you should have a discussion with your primary doctor on the risks and benefits of screening for prostate cancer given your family history of prostate cancer in your father. You can make a decision with your primary doctor and from there you could potentially have a blood test or referral to urology. Warfarin You were noted to have a low INR which will need to be followed up with your primary doctor on this also. Pending Studies at Discharge: Yes Studies:: blood cultures Stand-Alone Forms: My [facility], Smoking Cessation Medications and DC Order Prescriptions: New cefdinir 300 mg capsule 300 mg PO BID 4 Days Qty: 8 RF: 0 Continued allopurinol 300 mg tablet 300 mg PO DAILY RF: 0 cholecalciferol (vitamin D3) 25 mcg (1,000 unit) capsule 25 mcg PO DAILY RF: 0 atenolol 25 mg Tablet 25 mg PO QAM RF: 0 Toujeo SoloStar U-300 Insulin 300 unit/mL (1.5 mL) insulin pen 50 unit subcut BID RF: 0 gabapentin 300 mg capsule 300 mg PO AMPM RF: 0 ascorbic acid (vitamin C) [Vitamin C] 1,000 mg Tablet 500 mg PO DAILY RF: 0 Desenex 2 % powder 1 applic topical BID RF: 0 famotidine [Pepcid] 40 mg tablet 40 mg PO DAILY RF: 0 warfarin [Coumadin] 2.5 mg Tablet 2.5 mg PO DAILY Qty: 0 RF: 0 insulin aspart U-100 [Novolog Flexpen U-100 Insulin] 100 unit/mL Insulin Pen 0 unit SUBCUT TIDM RF: 0 clotrimazole-betamethasone 1-0.05 % cream 1 applic TOPICAL BID RF: 0 oxycodone [Roxicodone] 30 mg tablet 30 mg PO TID RF: 0 lisinopril 2.5 mg tablet 2.5 mg PO DAILY RF: 0 Discharge Orders: Discharge Order (Routine); Ordered 05/04/20 Ordered By: Santi Flynn/Other Patient Handouts: Managing Type 2 Diabetes Admission Data Admit Date/Time: 05/01/20 20:02 Attending Provider: Junior Hilario Admit Provider: Mey Smith Primary Care Provider: Demarcus Nicholson Other Providers: Dk Goncalves Christophe R Other Interventions: Discharge Summary Assessment (RN) Last Done: 05/04/20 15:06 Coding Level of Care Code D/C Day Management <30 mins Diagnoses Acute UTI N39.0 Coronary artery disease I25.10 Coronary Disease-Associated Artery/Lesion type: [place] artery [place] vs. transplanted heart: [place] heart Associated angina: without angina History of CVA (cerebrovascular accident) Z86.73 HTN (hypertension) I10 Hypertension type: essential hypertension CKD (chronic kidney disease) stage 3, GFR 30-59 ml/min N18.3 DM type 2 (diabetes mellitus, type 2) E11.69; Z79.4 Diabetes mellitus alf insulin use: with internet security specialist use Diabetes mellitus complication status: with other specified complication Gout M10.9 Gout site: unspecified site Gout etiology: unspecified cause Chronicity: unspecified Chronic pain of right lower extremity M79.604; G89.29 DVT (deep venous thrombosis) I82.409 Family history of prostate cancer Z80.42
== END 2020-05-04 15:33 | disposition home or self-care (01) | DRG 690 ==
LOC: ED 14:51 → SUATTDRO 20:02 → 3W 20:02

== ENCOUNTER 2021-01-27 12:08 | Inpatient (IN) ==
--- NOTE | 2021-01-27 13:01 | Emergency Department Note ---
History of Present Illness General Chief complaint: Lethargic Time Seen by Provider: 01/27/21 12:43 Source: patient and family Limitations: altered mental status History of Present Illness Provider complaint: Confused Onset (ago): day(s) 2 Location: head Severity: moderate Pain Consistency: + constant Quality: + other (Confusion) Relieved By: + none Associated symptoms: + confusion and + fever/chills; no chest pain, no headaches, no nausea/vomiting and no shortness of breath This is a 50-year-old male who comes in by ambulance for evaluation of change in mental status. I did obtain history initially from the patient and his father but the patient is confused. I did obtain additional history from Lucía who is his caregiver. She states that he has not had good blood pressures about 2 days ago. He was down to 76/40. She told him to call his doctor but he never called him. Yesterday his blood pressure was normal and this morning was at his ba seline at 105. This morning and he noticed that he seemed very confused. He had a little bit of confusion last night at 5 PM but much more noticeable this morning. He also had a temperature of 100.1 and recently has not been eating very much. He does have a history of UTIs. She did note that his urine looked darker recently. He has not had any known falls out of his wheelchair. He has not vomited. The patient denies having any headache, chest pain, shortness of breath, abdominal pain, vomiting or diarrhea. He has not had any cough or cold symptoms. Home Medications Medication Instructions Recorded Confirmed Type atenolol 25 mg PO QAM 08/18/18 01/27/21 History insulin aspart U-100 [Novolog 0 unit SUBCUT TIDM 10/08/18 01/27/21 History Flexpen U-100 Insulin] Toujeo SoloStar U-300 Insulin 0 unit SUBCUT BID 01/14/19 01/27/21 History gabapentin 300 mg PO BID 01/14/19 01/27/21 History famotidine [Pepcid] 40 mg PO DAILY 05/27/19 01/27/21 History allopurinol 300 mg tablet 300 mg PO DAILY 01/23/20 01/27/21 History cholecalciferol (vitamin D3) 25 25 mcg PO DAILY 01/23/20 01/27/21 History mcg (1,000 unit) capsule clotrimazole-betamethasone 1 applic TOPICAL BID 05/01/20 01/27/21 History oxycodone [Roxicodone] 15 - 30 mg PO TID PRN 05/01/20 01/27/21 History warfarin [Coumadin] 0 mg PO UD 07/26/20 01/27/21 History lisinopril 5 mg PO DAILY 10/11/20 01/27/21 History Allergies Allergy/AdvReac Type Severity Reaction Status Date / Time No Known Drug Allergies Allergy Unknown Verified 01/27/21 15:14 Past Med/Surg History Medical History (Updated 01/27/21 @ 19:29 by Jesse Yeung MD) Abdominal infection Acute dehydration Acute kidney injury Acute UTI JUAREZ (acute kidney injury) Arteriosclerosis of coronary artery Arthritis Benign essential hypertension Bilateral lower leg cellulitis Bleeding from colostomy Bleeding from wound Brain abscess CAD (coronary atherosclerotic disease) Cerebrovascular accident (CVA) Cirrhosis CKD (chronic kidney disease) stage 3, GFR 30-59 ml/min Coagulopathy Diabetic nephropathy Diastolic congestive heart failure DM type 2 (diabetes mellitus, type 2) E coli infection Edema of right lower extremity Elevated INR Elevated pulse rate Endocarditis Epididymitis Gout Gram positive bacterial infection H/O blood clots Heart trouble Hematuria Hematuria, gross Hepatitis C Hirschsprung's disease History of CVA (cerebrovascular accident) History of intravenous drug abuse Hyperlipidemia Hypoventilation Leg pain, bilateral Morbid obesity Narcotic poisoning Nephrolithiasis Nephrolithiasis, uric acid Nocturnal hypoxemia Paraplegia Pneumonia Pulmonary emboli Pulmonary hypertension Sepsis Severe sepsis Shortness of breath Sleep apnea, organic Stroke Supratherapeutic INR Transaminitis Type 2 diabetes mellitus, uncontrolled UTI (urinary tract infection) Valvular stenosis Wound infection Surgical History H/O aortic root repair H/O mitral valve repair Hx of CABG S/P cardiac cath S/P colostomy Surgically created abdominal mucous fistula Family History Father Cardiac disorder Hypertension Prostate cancer Diabetes Mother Hypertension Skin cancer Other Family history non-contributory Social History Smoking Status: Former smoker Tobacco Type: Cigarettes Second Hand Exposure: No; Hx Alcohol Use: No Hx Substance Use: No Preferred Language: Irish Communication Ability: Effective Product Merchandiser Required: No Beliefs That Will Affect Care: None marital status: Current Living Situation: Parent Current Living Situation Comment: home with parents and 18/hr /day caregivers current occupational status: unemployed 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 and A total of 10 systems reviewed and were otherwise negative Physical Exam Vital Signs Vital Signs - 24 hr 01/27/21 12:13 01/27/21 12:16 01/27/21 12:19 Temperature 36.3 C L Temperature Source Oral Pulse Rate 90 90 90 Pulse Rate [Apical] Pulse Rate from SpO2 Sensor 90 Respiratory Rate 18 14 17 Respiratory Effort / Characteristics Respiratory Depth Blood Pressure 113/42 L 113/42 L Blood Pressure [Left Arm] Blood Pressure Mean 65 65 Blood Pressure Mean [Left Arm] Pulse Oximetry 99 96 Oxygen Delivery Method Room Air Sepsis Recent Fever Within 48 Hours No Sepsis New/Unexplained Change in Mental Status No Sepsis Action Taken by Nursing No Action Required 01/27/21 12:20 01/27/21 12:30 01/27/21 12:40 Temperature Temperature Source Pulse Rate 90 90 Pulse Rate [Apical] Pulse Rate from SpO2 Sensor 93 H 89 Respiratory Rate 18 20 23 Respiratory Effort / Characteristics Respiratory Depth Blood Pressure Blood Pressure [Left Arm] Blood Pressure Mean Blood Pressure Mean [Left Arm] Pulse Oximetry 97 99 Oxygen Delivery Method Sepsis Recent Fever Within 48 Hours Sepsis New/Unexplained Change in Mental Status Sepsis Action Taken by Nursing 01/27/21 12:50 01/27/21 13:00 01/27/21 13:01 Temperature Temperature Source Pulse Rate Pulse Rate [Apical] Pulse Rate from SpO2 Sensor Respiratory Rate 23 18 21 Respiratory Effort / Characteristics Respiratory Depth Blood Pressure 64/43 L Blood Pressure [Left Arm] Blood Pressure Mean 50 Blood Pressure Mean [Left Arm] Pulse Oximetry Oxygen Delivery Method Sepsis Recent Fever Within 48 Hours Sepsis New/Unexplained Change in Mental Status Sepsis Action Taken by Nursing 01/27/21 13:04 01/27/21 13:10 01/27/21 13:20 Temperature Temperature Source Pulse Rate Pulse Rate [Apical] Pulse Rate from SpO2 Sensor 86 Respiratory Rate 24 21 18 Respiratory Effort / Characteristics Respiratory Depth Blood Pressure 82/66 L Blood Pressure [Left Arm] Blood Pressure Mean 71 Blood Pressure Mean [Left Arm] Pulse Oximetry 100 Oxygen Delivery Method Sepsis Recent Fever Within 48 Hours Sepsis New/Unexplained Change in Mental Status Sepsis Action Taken by Nursing 01/27/21 13:25 01/27/21 13:27 01/27/21 13:30 Temperature Temperature Source Pulse Rate 86 86 Pulse Rate [Apical] 85 Pulse Rate from SpO2 Sensor 85 Respiratory Rate 23 18 19 Respiratory Effort / Characteristics Non-Labored Respiratory Depth Normal Blood Pressure 103/61 Blood Pressure [Left Arm] 103/61 Blood Pressure Mean 75 Blood Pressure Mean [Left Arm] 75 Pulse Oximetry 86 L Oxygen Delivery Method Sepsis Recent Fever Within 48 Hours Sepsis New/Unexplained Change in Mental Status Sepsis Action Taken by Nursing 01/27/21 13:40 01/27/21 13:50 01/27/21 13:52 Temperature Temperature Source Pulse Rate 86 85 86 Pulse Rate [Apical] Pulse Rate from SpO2 Sensor Respiratory Rate 19 20 17 Respiratory Effort / Characteristics Respiratory Depth Blood Pressure 110/73 Blood Pressure [Left Arm] Blood Pressure Mean 85 Blood Pressure Mean [Left Arm] Pulse Oximetry Oxygen Delivery Method Sepsis Recent Fever Within 48 Hours Sepsis New/Unexplained Change in Mental Status Sepsis Action Taken by Nursing 01/27/21 14:00 01/27/21 14:01 01/27/21 14:10 Temperature Temperature Source Pulse Rate 78 88 85 Pulse Rate [Apical] Pulse Rate from SpO2 Sensor 88 Respiratory Rate 17 20 16 Respiratory Effort / Characteristics Respiratory Depth Blood Pressure 104/70 Blood Pressure [Left Arm] Blood Pressure Mean 81 Blood Pressure Mean [Left Arm] Pulse Oximetry 99 Oxygen Delivery Method Sepsis Recent Fever Within 48 Hours Sepsis New/Unexplained Change in Mental Status Sepsis Action Taken by Nursing 01/27/21 14:20 01/27/21 14:25 01/27/21 14:30 Temperature Temperature Source Pulse Rate 84 85 Pulse Rate [Apical] 86 Pulse Rate from SpO2 Sensor Respiratory Rate 14 18 15 Respiratory Effort / Characteristics Respiratory Depth Blood Pressure 125/63 Blood Pressure [Left Arm] 125/63 Blood Pressure Mean 83 Blood Pressure Mean [Left Arm] 83 Pulse Oximetry 95 Oxygen Delivery Method Sepsis Recent Fever Within 48 Hours Sepsis New/Unexplained Change in Mental Status Sepsis Action Taken by Nursing 01/27/21 14:31 01/27/21 14:40 01/27/21 14:50 Temperature Temperature Source Pulse Rate 84 84 84 Pulse Rate [Apical] Pulse Rate from SpO2 Sensor Respiratory Rate 15 18 17 Respiratory Effort / Characteristics Respiratory Depth Blood Pressure Blood Pressure [Left Arm] Blood Pressure Mean Blood Pressure Mean [Left Arm] Pulse Oximetry Oxygen Delivery Method Sepsis Recent Fever Within 48 Hours Sepsis New/Unexplained Change in Mental Status Sepsis Action Taken by Nursing 01/27/21 15:00 01/27/21 15:07 01/27/21 15:10 Temperature Temperature Source Pulse Rate 85 86 83 Pulse Rate [Apical] Pulse Rate from SpO2 Sensor 86 85 Respiratory Rate 16 18 22 Respiratory Effort / Characteristics Respiratory Depth Blood Pressure 130/74 Blood Pressure [Left Arm] Blood Pressure Mean 92 Blood Pressure Mean [Left Arm] Pulse Oximetry 95 97 100 Oxygen Delivery Method Room Air Sepsis Recent Fever Within 48 Hours Sepsis New/Unexplained Change in Mental Status Sepsis Action Taken by Nursing 01/27/21 15:15 01/27/21 15:20 01/27/21 15:30 Temperature Temperature Source Pulse Rate 91 H 91 H 90 Pulse Rate [Apical] Pulse Rate from SpO2 Sensor 92 H 91 H Respiratory Rate 25 H 17 20 Respiratory Effort / Characteristics Respiratory Depth Blood Pressure 100/65 Blood Pressure [Left Arm] Blood Pressure Mean 76 Blood Pressure Mean [Left Arm] Pulse Oximetry 100 100 74 L Oxygen Delivery Method Sepsis Recent Fever Within 48 Hours Sepsis New/Unexplained Change in Mental Status Sepsis Action Taken by Nursing 01/27/21 15:34 01/27/21 15:40 01/27/21 15:50 Temperature Temperature Source Pulse Rate 93 H 94 H 94 H Pulse Rate [Apical] Pulse Rate from SpO2 Sensor 93 H 94 H 92 H Respiratory Rate 14 19 19 Respiratory Effort / Characteristics Respiratory Depth Blood Pressure 128/72 Blood Pressure [Left Arm] Blood Pressure Mean 90 Blood Pressure Mean [Left Arm] Pulse Oximetry 100 94 93 Oxygen Delivery Method Sepsis Recent Fever Within 48 Hours Sepsis New/Unexplained Change in Mental Status Sepsis Action Taken by Nursing Constitutional: Vital signs reviewed. Eyes: Pupils are equal round reactive to light. Conjunctiva are noninjected. ENT: Pharynx is clear without erythema or exudate. Mucous membranes are dry. Neck supple without meningeal signs. Respiratory: Clear to auscultation bilaterally. Breath sounds are equal bilaterally. Cardiovascular: Regular rate and rhythm. No rubs or gallops. GI: Soft, nondistended and nontender. Bowel sounds are present. Colostomy right lower abdomen. Musculoskeletal: No peripheral edema. No lower extremity tenderness. Integumentary: No cyanosis. or jaundice. Neurologic: The patient is awake and alert. He is oriented x2 and has very tangential speech. Cranial nerves II-XII are intact. Motor is 5 out of 5 in the left upper extremity. He has 4-5 strength in the right arm. He has 2 out of 5 strength in the lower extremities. Sensation is intact to light touch all extremities. Sometimes difficult to understand speech but this may be to his Mari brogue. Right pronator drift. Psychiatric: Normal affect. Course Administered Medications Sodium Bicarbonate 75 meq/ (Sodium Chloride) 1,075 mls @ 100 mls/hr IV .[id number] CLAUDIA Stop: 02/26/21 15:14 Last Admin: 01/27/21 15:37 Dose: 100 mls/hr Documented by: [id number] Insulin Human Regular 250 (units/ Sodium Chloride) 250 mls @ 4.6 mls/hr IV .Q24H CLAUDIA; Protocol Stop: 02/26/21 17:14 Last Admin: 01/27/21 18:39 Dose: 4.6 units/hr, 4.6 mls/hr Documented by: [id number] Cosigned by: [id number] Vancomycin HCl 2,250 mg/ (Sodium Chloride) 545 mls @ 200 mls/hr IV NOW ONE Stop: 01/27/21 19:57 Last Admin: 01/27/21 18:10 Dose: 200 mls/hr Documented by: [id number] Cefepime HCl 2,000 mg/ Syringe 20 mls @ 5 mls/min IV DAILY@1800 CLAUDIA; Protocol Stop: 01/29/21 17:59 Last Admin: 01/27/21 18:21 Dose: 5 mls/min Documented by: [id number] Discontinued Medications Albuterol (Albuterol 0.083% Nebu Soln 3 Ml Vial) 2.5 mg NEB NOW STA Stop: 01/27/21 14:53 Last Admin: 01/27/21 15:04 Dose: 2.5 mg Documented by: [id number] Dextrose (Dextrose 50% 50 Ml Syringe) 50 ml IV NOW STA Stop: 01/27/21 14:53 Last Admin: 01/27/21 15:03 Dose: 50 ml Documented by: [id number] Calcium Gluconate () 1,000 mg in 60 mls @ 240 mls/hr IV NOW STA Stop: 01/27/21 15:06 Last Infusion: 01/27/21 16:04 Dose: 240 mls/hr Documented by: [id number] Admin: 01/27/21 15:04 Dose: 240 mls/hr Documented by: [id number] Insulin Human Regular (Novolin-R Insulin Per Unit Charge) 10 units IV NOW STA Stop: 01/27/21 14:53 Last Admin: 01/27/21 15:04 Dose: 10 units Documented by: [id number] Cosigned by: [id number] Insulin Human Regular (Novolin-R Bolus From Bag) 4.5 units IV NOW STA Stop: 01/27/21 18:27 Last Admin: 01/27/21 18:39 Dose: 4.5 units Documented by: [id number] Cosigned by: [id number] Miscellaneous (Stat Iv) 1 ea N/A NOW STA Stop: 01/27/21 15:05 Last Admin: 01/27/21 15:38 Dose: 1 ea Documented by: [id number] Sodium Bicarbonate (Sodium Bicarb 8.4% Inj 50 Meq/50 Ml Syr) 50 meq IV NOW STA Stop: 01/27/21 14:53 Last Admin: 01/27/21 15:04 Dose: 50 meq Documented by: [id number] Critical Care Time Critical Care Time: Yes Total Critical Care Time: 50 I have personally spent approximately 50 minutes of critical care time in the direct management of this patient. This includes bedside care, interpretation of diagnostic studies, and testing, discussion with consultants, patient, and family members, and other required patient management activities. These minutes are in excess of all separately billable procedures. Medical Decision Making Differential Diagnosis Sepsis, encephalopathy, UTI, pneumonia, intracranial hemorrhage, CVA Medical Records Attestation: I reviewed the patient's medical records. I did perform a limited focused review of portions of the patient's old chart on the electronic medical record. The patient was seen here in October for abdominal pain and was found to have a small bowel obstruction and acute kidney injury. He was transferred to [facility]. Home Medications Current Medication List: was personally reviewed by me Laboratory Data Attestation: I reviewed the patient's lab results. Result diagrams: 01/27/21 13:44 01/27/21 13:44 Lab Results 01/27/21 01/27/21 01/27/21 Range/Units 13:44 13:44 13:44 WBC 17.37 H (4.8-10.8) K/uL RBC 5.08 (4.7-6.1) M/uL Hgb 14.7 (14.0-18.0) g/dL Hct 45.1 (42-52) % MCV 88.8 (80-100) fL MCH 28.9 (25-34) pg MCHC 32.6 (32-36) g/dL RDW Std Deviation 53.9 H (36.4-46.3) fL RDW Coeff of Lorenzo 16.5 H (11.5-14.5) % Plt Count 239 (130-400) K/uL MPV 9.7 (7.4-10.4) fL Immature Gran % (Auto) 0.7 % Neut % (Auto) 86.4 % Lymph % (Auto) 8.0 % [place] % (Auto) 4.0 % Eos % (Auto) 0.7 % Baso % (Auto) 0.2 % Neut # (Auto) 15.02 H (1.4-6.5) K/uL Lymph # (Auto) 1.39 (1.2-3.4) K/uL [place] # (Auto) 0.69 H (0.11-0.59) K/uL Eos # (Auto) 0.12 (0-0.5) K/uL Baso # (Auto) 0.03 (0-0.2) K/uL Immature Gran # (Auto) 0.12 H (0.00-0.02) K/uL PT 36.4 H (9.0-12.0) Seconds INR 4.0 H (0.9-1.1) APTT 59.8 H* (21.0-31.0) Seconds PTT Ratio 2.3 Sodium 131 L (136-145) mmol/L Potassium 7.9 H* (3.5-5.1) mmol/L Chloride 110 H (98-107) mmol/L Carbon Dioxide 8 L* (21-32) mmol/L Anion Gap 12.0 H (3-11) BUN 146 H (7-18) mg/dl Creatinine 5.95 H* (0.6-1.4) mg/dl Est Cr Clr Drug Dosing 19.9 ml/min Est GFR ( Amer) 11.9 ml/min Est GFR (Non-Af Amer) 10.3 ml/min BUN/Creatinine Ratio 24.6 H (10-20) Glucose 152 H (70-99) mg/dl POC Glucose (70-99) mg/dl Lactate (0.4-2.0) mmol/L Calcium 8.8 (8.5-10.1) mg/dl Magnesium 2.6 H (1.8-2.4) mg/dl Total Bilirubin 0.3 (0.2-1) mg/dl AST 12 L (15-37) U/L ALT 22 (12-78) U/L Alkaline Phosphatase 200 H (45-117) U/L Ammonia (11-32) umol/L Total Protein 9.1 H (6.4-8.2) gm/dl Albumin 3.4 (3.4-5.0) gm/dl Globulin 5.7 H (2.5-4.0) gm/dl Albumin/Globulin Ratio 0.6 L (0.9-2) Urine Color Urine Appearance (Clear) Urine pH (4.5-7.5) Ur Specific [place] (1.000-1.030) Urine Protein (Negative) Urine Glucose (UA) (Negative) Urine Ketones (Negative) Urine Blood (Negative) Urine Nitrite (Negative) Urine Bilirubin (Negative) Urine Urobilinogen (Negative) Ur Leukocyte Esterase (Negative) Urine WBC (Auto) (0-5) /hpf Urine RBC (Auto) (0-4) /hpf U Hyaline Cast (Auto) (0-5) /lpf U Epithel Cells (Auto) (0-5) /lpf Urine Bacteria (Auto) (Negative) Urine Yeast COVID-19 Eval Order SARS-CoV-2 (PCR) (Negative) 01/27/21 01/27/21 01/27/21 Range/Units 13:44 13:44 13:50 WBC (4.8-10.8) K/uL RBC (4.7-6.1) M/uL Hgb (14.0-18.0) g/dL Hct (42-52) % MCV (80-100) fL MCH (25-34) pg MCHC (32-36) g/dL RDW Std Deviation (36.4-46.3) fL RDW Coeff of Lorenzo (11.5-14.5) % Plt Count (130-400) K/uL MPV (7.4-10.4) fL Immature Gran % (Auto) % Neut % (Auto) % Lymph % (Auto) % [place] % (Auto) % Eos % (Auto) % Baso % (Auto) % Neut # (Auto) (1.4-6.5) K/uL Lymph # (Auto) (1.2-3.4) K/uL [place] # (Auto) (0.11-0.59) K/uL Eos # (Auto) (0-0.5) K/uL Baso # (Auto) (0-0.2) K/uL Immature Gran # (Auto) (0.00-0.02) K/uL PT (9.0-12.0) Seconds INR (0.9-1.1) APTT (21.0-31.0) Seconds PTT Ratio Sodium (136-145) mmol/L Potassium (3.5-5.1) mmol/L Chloride (98-107) mmol/L Carbon Dioxide (21-32) mmol/L Anion Gap (3-11) BUN (7-18) mg/dl Creatinine (0.6-1.4) mg/dl Est Cr Clr Drug Dosing ml/min Est GFR ( Amer) ml/min Est GFR (Non-Af Amer) ml/min BUN/Creatinine Ratio (10-20) Glucose (70-99) mg/dl POC Glucose (70-99) mg/dl Lactate 1.0 (0.4-2.0) mmol/L Calcium (8.5-10.1) mg/dl Magnesium (1.8-2.4) mg/dl Total Bilirubin (0.2-1) mg/dl AST (15-37) U/L ALT (12-78) U/L Alkaline Phosphatase (45-117) U/L Ammonia 15.5 (11-32) umol/L Total Protein (6.4-8.2) gm/dl Albumin (3.4-5.0) gm/dl Globulin (2.5-4.0) gm/dl Albumin/Globulin Ratio (0.9-2) Urine Color Urine Appearance (Clear) Urine pH (4.5-7.5) Ur Specific [place] (1.000-1.030) Urine Protein (Negative) Urine Glucose (UA) (Negative) Urine Ketones (Negative) Urine Blood (Negative) Urine Nitrite (Negative) Urine Bilirubin (Negative) Urine Urobilinogen (Negative) Ur Leukocyte Esterase (Negative) Urine WBC (Auto) (0-5) /hpf Urine RBC (Auto) (0-4) /hpf U Hyaline Cast (Auto) (0-5) /lpf U Epithel Cells (Auto) (0-5) /lpf Urine Bacteria (Auto) (Negative) Urine Yeast COVID-19 Eval Order Covid19 at [facility] SARS-CoV-2 (PCR) (Negative) 01/27/21 01/27/21 01/27/21 Range/Units 13:50 15:33 15:44 WBC (4.8-10.8) K/uL RBC (4.7-6.1) M/uL Hgb (14.0-18.0) g/dL Hct (42-52) % MCV (80-100) fL MCH (25-34) pg MCHC (32-36) g/dL RDW Std Deviation (36.4-46.3) fL RDW Coeff of Lorenzo (11.5-14.5) % Plt Count (130-400) K/uL MPV (7.4-10.4) fL Immature Gran % (Auto) % Neut % (Auto) % Lymph % (Auto) % [place] % (Auto) % Eos % (Auto) % Baso % (Auto) % Neut # (Auto) (1.4-6.5) K/uL Lymph # (Auto) (1.2-3.4) K/uL [place] # (Auto) (0.11-0.59) K/uL Eos # (Auto) (0-0.5) K/uL Baso # (Auto) (0-0.2) K/uL Immature Gran # (Auto) (0.00-0.02) K/uL PT (9.0-12.0) Seconds INR (0.9-1.1) APTT (21.0-31.0) Seconds PTT Ratio Sodium (136-145) mmol/L Potassium (3.5-5.1) mmol/L Chloride (98-107) mmol/L Carbon Dioxide (21-32) mmol/L Anion Gap (3-11) BUN (7-18) mg/dl Creatinine (0.6-1.4) mg/dl Est Cr Clr Drug Dosing ml/min Est GFR ( Amer) ml/min Est GFR (Non-Af Amer) ml/min BUN/Creatinine Ratio (10-20) Glucose (70-99) mg/dl POC Glucose 239 H (70-99) mg/dl Lactate (0.4-2.0) mmol/L Calcium (8.5-10.1) mg/dl Magnesium (1.8-2.4) mg/dl Total Bilirubin (0.2-1) mg/dl AST (15-37) U/L ALT (12-78) U/L Alkaline Phosphatase (45-117) U/L Ammonia (11-32) umol/L Total Protein (6.4-8.2) gm/dl Albumin (3.4-5.0) gm/dl Globulin (2.5-4.0) gm/dl Albumin/Globulin Ratio (0.9-2) Urine Color Yellow Urine Appearance Cloudy A (Clear) Urine pH 5.0 (4.5-7.5) Ur Specific [place] 1.015 (1.000-1.030) Urine Protein 2+ H (Negative) Urine Glucose (UA) Negative (Negative) Urine Ketones Trace H (Negative) Urine Blood 2+ H (Negative) Urine Nitrite Negative (Negative) Urine Bilirubin Negative (Negative) Urine Urobilinogen Negative (Negative) Ur Leukocyte Esterase 2+ H (Negative) Urine WBC (Auto) >30 H (0-5) /hpf Urine RBC (Auto) 0-4 (0-4) /hpf U Hyaline Cast (Auto) 1-5 (0-5) /lpf U Epithel Cells (Auto) 5-10 H (0-5) /lpf Urine Bacteria (Auto) 1+ H (Negative) Urine Yeast Not Reportable COVID-19 Eval Order SARS-CoV-2 (PCR) NEGATIVE (Negative) Imaging Data Radiologist's Impression: Chest X-Ray 01/27/21 12:54 XR chest 1V portable CLINICAL HISTORY: SEPSIS COMPARISON STUDY: 11/01/2020 FINDINGS: The heart is mildly enlarged. There are postsurgical changes of a midline sternotomy. There is no failure. There is no focal pulmonary consolidation. There are no pleural effusions. There is stable mild elevation left hemidiaphragm.[ IMPRESSION: Stable findings. No active disease in the chest. ACT 112: Negative or not required by law. Electronically signed by: Reggie Moreno M.D. 01/27/2021 1:[address] 01/27/21 12:54 CT head/brain wo con CLINICAL HISTORY: 50 years-old Male with AMS eval for bleed. Acutely altered mental status TECHNIQUE: Multiple axial CT images of the head were obtained without contrast. A dose lowering technique was utilized adhering to the principles of ALARA. CT DOSE: 998.18 mGy.cm COMPARISON: Head CT 02/08/2019 FINDINGS: No acute intracranial hemorrhage, midline shift, intracranial mass, hydrocephalus, territorial ischemia or abnormal extra-axial collection. Encephalomalacia secondary to chronic infarct of the left parietal lobe redemonstrated. Large area of encephalomalacia involving the right cerebellar, superior and middle cerebellar peduncles with calvarial defect of the occiput is unchanged. The study is motion degraded. The calvarium is intact. Developmental incomplete bony fusion involves the posterior arch of C1. Mastoid air cells are clear. Partially imaged polypoid mucosal thickening of the right maxillary sinus. IMPRESSION: 1. Motion degraded exam. No acute intracranial abnormality. 2. Chronic findings as above. ACT 112: Negative or not required by law. The above report was generated using voice recognition software. It may contain grammatical, syntax or spelling errors. Electronically signed by: Reilly Conroy M.D. 01/27/2021 5:20 PM ECG Data Attestation: I personally reviewed and interpreted this ECG as follows: Indication: + altered mental status Rate (beats per minute): 86 Rhythm: + normal sinus ECG Intervals/blocks: + First degree AV block and + Normal QRS ECG Findings: no PVCs MDM Narrative I did evaluate the patient as noted above. The patient is presenting with change in mental status today with a low-grade temperature and decreased p.o. intake. 2 days ago he had a low blood pressure but it is back to its baseline today. On exam he is fairly confused and only oriented to person and place.I did obtain history from the patient as well as his father and his collections analyst and over the telephone. IV access was established. I did place an order for continuous cardiac monitoring. The monitor showed normal sinus rhythm at a rate of 87 bpm. I did order and personally review the patient's 12-lead EKG as described above. He has no evidence of acute ischemia. He does not have peaked T waves or widening of the QRS. I did order and personally reviewed the images of the patient's chest x-ray as described above. There is no evidence of pneumonia. I did order a urine analysis. He does appear to have evidence of UTI as well as yeast in his urine.I did order and review the patient's blood work as noted in the electronic medical record. His white blood cell count is elevated at 17.3. Hemoglobin and platelet count are within normal limits. His INR is elevated at 4. He is on Coumadin for history of DVT. He denies PE or artificial heart valve. Electrolytes show significant derangement including a potassium of 7.9 and a CO2 of 8. His creatinine is elevated at 5.95. I did immediately treat the patient with IV bicarbonate and started bicarbonate drip. He was also given IV insulin and dextrose and IV calcium. He was given an albuterol nebulizer as well. I did speak to Dr. Perez of nephrology who will arrange for the patient to get immediate hemodialysis. I did speak to Dr. Pedraza who will place the dialysis catheter and accepted him to the ICU. He did not wish for me to reverse the patient's INR. I did order a CT of the head. I did review the images myself as well as the radiology report as described above. I did discuss case with the hospitalist and case specialist. I did discuss his test results with the patient and his father. He was transferred to the ICU in critical condition for emergent dialysis. Impression & Plan JUAREZ (acute kidney injury), Sepsis, Acute UTI, Acute hyperkalemia, Acute alteration in mental status, Supratherapeutic INR Discharge Plan Visit Data Chief Complaint: Lethargic ED Provider: Jesse Yeung Discharge Problem: JUAREZ (acute kidney injury), Sepsis, Acute UTI, Acute hyperkalemia, Acute alteration in mental status, Supratherapeutic INR Patient Disposition: Admitted As Inpatient Discharge Instructions Interventions: ED Discharge Assessment Last Done: 01/27/21 16:05
--- NOTE | 2021-01-27 13:29 | XRay Report ---
XR chest 1V portable CLINICAL HISTORY: SEPSIS COMPARISON STUDY: 11/01/2020 FINDINGS: The heart is mildly enlarged. There are postsurgical changes of a midline sternotomy. There is no failure. There is no focal pulmonary consolidation. There are no pleural effusions. There is s table mild elevation left hemidiaphragm.[ IMPRESSION: Stable findings. No active disease in the chest. ACT 112: Negative or not required by law. Electronically signed by: Reggie Moreno M.D. 01/27/2021 1:27 PM
[2021-01-27 13:57] LABS: Basophils # (auto) 0.03 K/uL (0-0.2); Basophils % (auto) 0.2 %; Eosinophils # (auto) 0.12 K/uL (0-0.5); Eosinophils % (auto) 0.7 %; Hematocrit (blood only) 45.1 % (42-52); Hemoglobin 14.7 g/dL (14.0-18.0); Immature Granulocytes # (auto) 0.12 K/uL (0.00-0.02); Immature Granulocytes % (auto) 0.7 %; Lymphocytes # (auto) 1.39 K/uL (1.2-3.4); Mean Corpuscular Hemoglobin 28.9 pg (25-34); Mean Corpuscular Hgb Conc 32.6 g/dL (32-36); Mean Corpuscular Volume 88.8 fL (80-100); Mean Platelet Volume 9.7 fL (7.4-10.4); Monocytes # (auto) 0.69 K/uL (0.11-0.59); Neutrophils # (auto) 15.02 K/uL (1.4-6.5); Neutrophils % (auto) 86.4 %; Platelet Count 239 K/uL (130-400); RDW Coefficient of Variation 16.5 % (11.5-14.5); RDW Standard Deviation 53.9 fL (36.4-46.3); Red Blood Count 5.08 M/uL (4.7-6.1); White Blood Count 17.37 K/uL (4.8-10.8)
[2021-01-27 14:31] LABS: Albumin Globulin Ratio 0.6 (0.9-2); Albumin Level 3.4 gm/dl (3.4-5.0); BUN Creatinine Ratio 24.6 (10-20); Bilirubin,Total 0.3 mg/dl (0.2-1); Calcium 8.8 mg/dl (8.5-10.1); Creatinine Clr Calc Pharmacy 19.9 ml/min; Est GFR (African American) 11.9 ml/min; Est GFR (Non-African American) 10.3 ml/min; Globulin 5.7 gm/dl (2.5-4.0); Magnesium 2.6 mg/dl (1.8-2.4); Potassium 7.9 mmol/L (3.5-5.1); Total Protein 9.1 gm/dl (6.4-8.2)
[2021-01-27 14:32] LABS: Partial Thromboplastin Ratio 2.3; Prothrombin Time 36.4 Seconds (9.0-12.0)
[2021-01-27 14:50] LABS: Partial Thromboplastin Time 59.8 Seconds (21.0-31.0)
[2021-01-27] MEDS ORDERED: NovoLIN-R INSULIN PER UNIT CHARGE IV STA (14:52)
[2021-01-27] MEDS ORDERED: SODIUM BICARB 8.4% INJ 50 MEQ/50 ML SYR IV STA (14:52)
[2021-01-27] MEDS ORDERED: DEXTROSE 50% 50 ML SYRINGE IV STA (14:52)
[2021-01-27] MEDS ORDERED: ALBUTEROL 0.083% NEBU SOLN 3 ML VIAL NEB STA (14:52)
[2021-01-27] MEDS ORDERED: CALCIUM GLUCONATE 1,000 MG/60 ML BAG IV STA (14:52)
[2021-01-27] MEDS ORDERED: STAT IV STA (15:04)
[2021-01-27] MEDS ORDERED: SODIUM BICARBONATE 8.4% 75 MEQ in SODIUM CHLORIDE 0.45 % 1,000 ML IV SCH (15:15)
--- NOTE | 2021-01-27 15:27 | Critical Care Consultation ---
Date of Consultation January 27, 2021 Assessment & Plan (1) Sepsis: Reason Critically Ill: 50-year-old male with hyperkalemia and sepsis PLAN: Neuro: Acute encephalopathy: Waxing and waning -CT scan of head pending Resp: Probable obstructive sleep apnea History tracheostomy -Continue pulse oximetry CV: History endocarditis Hypotension -Responded to fluid administration in the emergency department Fluids/Renal: Acute kidney injury Hyperkalemia -Hemodialysis catheter placed ID: Sepsis unclear source at this time -Blood cultures ordered, urine culture ordered -Vancomycin and Zosyn GI/Nutrition: LFTs within normal limits alkaline phosphatase mildly elevated at 200 history of being previously elevated Hyperlipidemia -Ammonia within normal limits Heme: Leukocytosis Systemic anticoagulation secondary to venous thromboembolism -Supratherapeutic INR DVT prophylaxis: Chemical prophylaxis contraindicated mechanical prophylaxis contraindicated given elevated INR Endocrine: ICU hyperglycemia protocol Empiric insulin drip while awaiting dialysis Vascular access: Peripheral IV, hemodialysis catheter with central venous access Code Status: Full code Disposition: ICU (2) Surgically created abdominal mucous fistula: (3) Acute kidney injury: (4) Elevated INR: (5) Supratherapeutic INR: Supervising Physician Co-Signing Physician Notes I have personally spent 50 minutes of critical care time in the direct management of this patient. This is a life/limb threatening event. This includes time spent evaluating patient, direct bedside care, chart review, placing orders, interpretation of diagnostic studies, discussion with consultants, patient, and/or family members regarding treatment decisions, as well as other required patient management activities. This time is exclusive of all separately billable procedures, and teaching time and separate from and in addition to any other critical care service time. History of Present Illness Reason for Consultation: Hyperkalemia Requesting Physician: Jesse Yeung Attending Physician: Yadiel Rodriguez History of Present Illness Patient is a 50-year-old male who has a past medical history for 6 paraplegia status post CVA, coronary artery disease, morbid obesity, bowel resection, chronic kidney disease who presented with confusion and change in his mental status. Per report from the ED provider that patient had a temp greater than 100 F and was found to have an acute kidney injury with significant hyperkalemia necessitating emergent dialysis. He was transferred to the I see you urgently for placement of a hemodialysis catheter (temporary) and he is also noted to be on systemic anticoagulation has a supratherapeutic INR. Allergies Allergy/AdvReac Type Severity Reaction Status Date / Time No Known Drug Allergies Allergy Unknown Verified 01/27/21 15:14 Home Medications Medication Instructions Recorded Confirmed Type atenolol 25 mg PO QAM 08/18/18 01/27/21 History insulin aspart U-100 [Novolog 0 unit SUBCUT TIDM 10/08/18 01/27/21 History Flexpen U-100 Insulin] Toujeo SoloStar U-300 Insulin 0 unit SUBCUT BID 01/14/19 01/27/21 History gabapentin 300 mg PO BID 01/14/19 01/27/21 History famotidine [Pepcid] 40 mg PO DAILY 05/27/19 01/27/21 History allopurinol 300 mg tablet 300 mg PO DAILY 01/23/20 01/27/21 History cholecalciferol (vitamin D3) 25 25 mcg PO DAILY 01/23/20 01/27/21 History mcg (1,000 unit) capsule clotrimazole-betamethasone 1 applic TOPICAL BID 05/01/20 01/27/21 History oxycodone [Roxicodone] 15 - 30 mg PO TID PRN 05/01/20 01/27/21 History warfarin [Coumadin] 0 mg PO UD 07/26/20 01/27/21 History lisinopril 5 mg PO DAILY 10/11/20 01/27/21 History Patient History Medical History Abdominal infection Acute dehydration Acute kidney injury Acute UTI JUAREZ (acute kidney injury) Arteriosclerosis of coronary artery Arthritis Benign essential hypertension Bilateral lower leg cellulitis Bleeding from colostomy Bleeding from wound Brain abscess CAD (coronary atherosclerotic disease) Cerebrovascular accident (CVA) Cirrhosis CKD (chronic kidney disease) stage 3, GFR 30-59 ml/min Coagulopathy Diabetic nephropathy Diastolic congestive heart failure DM type 2 (diabetes mellitus, type 2) E coli infection Edema of right lower extremity Elevated INR Elevated pulse rate Endocarditis Epididymitis Gout Gram positive bacterial infection H/O blood clots Heart trouble Hematuria Hematuria, gross Hepatitis C Hirschsprung's disease History of CVA (cerebrovascular accident) History of intravenous drug abuse Hyperlipidemia Hypoventilation Leg pain, bilateral Morbid obesity Narcotic poisoning Nephrolithiasis Nephrolithiasis, uric acid Nocturnal hypoxemia Paraplegia Pneumonia Pulmonary emboli Pulmonary hypertension Sepsis Severe sepsis Shortness of breath Sleep apnea, organic Stroke Supratherapeutic INR Transaminitis Type 2 diabetes mellitus, uncontrolled UTI (urinary tract infection) Valvular stenosis Wound infection Surgical History H/O aortic root repair H/O mitral valve repair Hx of CABG S/P cardiac cath S/P colostomy Surgically created abdominal mucous fistula Family History Father Cardiac disorder Hypertension Prostate cancer Diabetes Mother Hypertension Skin cancer Other Family history non-contributory Social History Smoking Status: Former smoker Tobacco Type: Cigarettes Second Hand Exposure: No; Hx Alcohol Use: No Hx Substance Use: No Preferred Language: Lebanese Communication Ability: Effective Medicaid Collection Specialist Required: No Beliefs That Will Affect Care: None marital status: Current Living Situation: Parent and Other Current Living Situation Comment: home with parents and 18/hr /day caregivers current occupational status: unemployed 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 Falls asleep rather easily. Skin: Warm, dry, Head: Atraumatic Ears, nose, mouth and throat: airway patent Cardiovascular: Normal peripheral perfusion Respiratory: no respiratory distress Gastrointestinal: Non distended, recent surgical scar with still healing area that had been packed with gauze Musculoskeletal: Contractures of right upper extremity Results & Data Results & Data ([facility]) Vital Signs (Past 12 Hours) Vital Signs Temp Pulse Pulse Resp BP BP Pulse Ox 01/27/21 15:00 95 01/27/21 14:25 86 18 125/63 95 01/27/21 13:27 85 18 103/61 01/27/21 12:16 36.3 C L 90 14 113/42 L 96 Laboratory Results 01/27/21 01/27/21 01/27/21 Range/Units 16:25 15:54 15:44 WBC (4.8-10.8) K/uL RBC (4.7-6.1) M/uL Hgb (14.0-18.0) g/dL Hct (42-52) % MCV (80-100) fL MCH (25-34) pg MCHC (32-36) g/dL RDW Std Deviation (36.4-46.3) fL RDW Coeff of Lorenzo (11.5-14.5) % Plt Count (130-400) K/uL MPV (7.4-10.4) fL Immature Gran % (Auto) % Neut % (Auto) % Lymph % (Auto) % [place] % (Auto) % Eos % (Auto) % Baso % (Auto) % Neut # (Auto) (1.4-6.5) K/uL Lymph # (Auto) (1.2-3.4) K/uL [place] # (Auto) (0.11-0.59) K/uL Eos # (Auto) (0-0.5) K/uL Baso # (Auto) (0-0.2) K/uL Immature Gran # (Auto) (0.00-0.02) K/uL PT (9.0-12.0) Seconds INR (0.9-1.1) APTT (21.0-31.0) Seconds PTT Ratio Sodium (136-145) mmol/L Potassium (3.5-5.1) mmol/L Chloride (98-107) mmol/L Carbon Dioxide (21-32) mmol/L Anion Gap (3-11) BUN (7-18) mg/dl Creatinine (0.6-1.4) mg/dl Est Cr Clr Drug Dosing ml/min Est GFR ( Amer) ml/min Est GFR (Non-Af Amer) ml/min BUN/Creatinine Ratio (10-20) Glucose (70-99) mg/dl POC Glucose 225 H 239 H (70-99) mg/dl Lactate (0.4-2.0) mmol/L Calcium (8.5-10.1) mg/dl Magnesium (1.8-2.4) mg/dl Total Bilirubin (0.2-1) mg/dl AST (15-37) U/L ALT (12-78) U/L Alkaline Phosphatase (45-117) U/L Ammonia (11-32) umol/L Total Protein (6.4-8.2) gm/dl Albumin (3.4-5.0) gm/dl Globulin (2.5-4.0) gm/dl Albumin/Globulin Ratio (0.9-2) Urine Color Urine Appearance (Clear) Urine pH (4.5-7.5) Ur Specific [place] (1.000-1.030) Urine Protein (Negative) Urine Glucose (UA) (Negative) Urine Ketones (Negative) Urine Blood (Negative) Urine Nitrite (Negative) Urine Bilirubin (Negative) Urine Urobilinogen (Negative) Ur Leukocyte Esterase (Negative) Urine WBC (Auto) (0-5) /hpf Urine RBC (Auto) (0-4) /hpf U Hyaline Cast (Auto) (0-5) /lpf U Epithel Cells (Auto) (0-5) /lpf Urine Bacteria (Auto) (Negative) Urine Yeast COVID-19 Eval Order SARS-CoV-2 (PCR) (Negative) Blood Type Pending Antibody Screen Pending 01/27/21 01/27/21 01/27/21 Range/Units 15:33 13:50 13:50 WBC (4.8-10.8) K/uL RBC (4.7-6.1) M/uL Hgb (14.0-18.0) g/dL Hct (42-52) % MCV (80-100) fL MCH (25-34) pg MCHC (32-36) g/dL RDW Std Deviation (36.4-46.3) fL RDW Coeff of Lorenzo (11.5-14.5) % Plt Count (130-400) K/uL MPV (7.4-10.4) fL Immature Gran % (Auto) % Neut % (Auto) % Lymph % (Auto) % [place] % (Auto) % Eos % (Auto) % Baso % (Auto) % Neut # (Auto) (1.4-6.5) K/uL Lymph # (Auto) (1.2-3.4) K/uL [place] # (Auto) (0.11-0.59) K/uL Eos # (Auto) (0-0.5) K/uL Baso # (Auto) (0-0.2) K/uL Immature Gran # (Auto) (0.00-0.02) K/uL PT (9.0-12.0) Seconds INR (0.9-1.1) APTT (21.0-31.0) Seconds PTT Ratio Sodium (136-145) mmol/L Potassium (3.5-5.1) mmol/L Chloride (98-107) mmol/L Carbon Dioxide (21-32) mmol/L Anion Gap (3-11) BUN (7-18) mg/dl Creatinine (0.6-1.4) mg/dl Est Cr Clr Drug Dosing ml/min Est GFR ( Amer) ml/min Est GFR (Non-Af Amer) ml/min BUN/Creatinine Ratio (10-20) Glucose (70-99) mg/dl POC Glucose (70-99) mg/dl Lactate (0.4-2.0) mmol/L Calcium (8.5-10.1) mg/dl Magnesium (1.8-2.4) mg/dl Total Bilirubin (0.2-1) mg/dl AST (15-37) U/L ALT (12-78) U/L Alkaline Phosphatase (45-117) U/L Ammonia (11-32) umol/L Total Protein (6.4-8.2) gm/dl Albumin (3.4-5.0) gm/dl Globulin (2.5-4.0) gm/dl Albumin/Globulin Ratio (0.9-2) Urine Color Yellow Urine Appearance Cloudy A (Clear) Urine pH 5.0 (4.5-7.5) Ur Specific [place] 1.015 (1.000-1.030) Urine Protein 2+ H (Negative) Urine Glucose (UA) Negative (Negative) Urine Ketones Trace H (Negative) Urine Blood 2+ H (Negative) Urine Nitrite Negative (Negative) Urine Bilirubin Negative (Negative) Urine Urobilinogen Negative (Negative) Ur Leukocyte Esterase 2+ H (Negative) Urine WBC (Auto) >30 H (0-5) /hpf Urine RBC (Auto) 0-4 (0-4) /hpf U Hyaline Cast (Auto) 1-5 (0-5) /lpf U Epithel Cells (Auto) 5-10 H (0-5) /lpf Urine Bacteria (Auto) 1+ H (Negative) Urine Yeast Not Reportable COVID-19 Eval Order Covid19 at [facility] SARS-CoV-2 (PCR) NEGATIVE (Negative) Blood Type Antibody Screen 01/27/21 01/27/21 01/27/21 Range/Units 13:44 13:44 13:44 WBC (4.8-10.8) K/uL RBC (4.7-6.1) M/uL Hgb (14.0-18.0) g/dL Hct (42-52) % MCV (80-100) fL MCH (25-34) pg MCHC (32-36) g/dL RDW Std Deviation (36.4-46.3) fL RDW Coeff of Lorenzo (11.5-14.5) % Plt Count (130-400) K/uL MPV (7.4-10.4) fL Immature Gran % (Auto) % Neut % (Auto) % Lymph % (Auto) % [place] % (Auto) % Eos % (Auto) % Baso % (Auto) % Neut # (Auto) (1.4-6.5) K/uL Lymph # (Auto) (1.2-3.4) K/uL [place] # (Auto) (0.11-0.59) K/uL Eos # (Auto) (0-0.5) K/uL Baso # (Auto) (0-0.2) K/uL Immature Gran # (Auto) (0.00-0.02) K/uL PT (9.0-12.0) Seconds INR (0.9-1.1) APTT (21.0-31.0) Seconds PTT Ratio Sodium 131 L (136-145) mmol/L Potassium 7.9 H* (3.5-5.1) mmol/L Chloride 110 H (98-107) mmol/L Carbon Dioxide 8 L* (21-32) mmol/L Anion Gap 12.0 H (3-11) BUN 146 H (7-18) mg/dl Creatinine 5.95 H* (0.6-1.4) mg/dl Est Cr Clr Drug Dosing 19.9 ml/min Est GFR ( Amer) 11.9 ml/min Est GFR (Non-Af Amer) 10.3 ml/min BUN/Creatinine Ratio 24.6 H (10-20) Glucose 152 H (70-99) mg/dl POC Glucose (70-99) mg/dl Lactate 1.0 (0.4-2.0) mmol/L Calcium 8.8 (8.5-10.1) mg/dl Magnesium 2.6 H (1.8-2.4) mg/dl Total Bilirubin 0.3 (0.2-1) mg/dl AST 12 L (15-37) U/L ALT 22 (12-78) U/L Alkaline Phosphatase 200 H (45-117) U/L Ammonia 15.5 (11-32) umol/L Total Protein 9.1 H (6.4-8.2) gm/dl Albumin 3.4 (3.4-5.0) gm/dl Globulin 5.7 H (2.5-4.0) gm/dl Albumin/Globulin Ratio 0.6 L (0.9-2) Urine Color Urine Appearance (Clear) Urine pH (4.5-7.5) Ur Specific [place] (1.000-1.030) Urine Protein (Negative) Urine Glucose (UA) (Negative) Urine Ketones (Negative) Urine Blood (Negative) Urine Nitrite (Negative) Urine Bilirubin (Negative) Urine Urobilinogen (Negative) Ur Leukocyte Esterase (Negative) Urine WBC (Auto) (0-5) /hpf Urine RBC (Auto) (0-4) /hpf U Hyaline Cast (Auto) (0-5) /lpf U Epithel Cells (Auto) (0-5) /lpf Urine Bacteria (Auto) (Negative) Urine Yeast COVID-19 Eval Order SARS-CoV-2 (PCR) (Negative) Blood Type Antibody Screen 01/27/21 01/27/21 Range/Units 13:44 13:44 WBC 17.37 H (4.8-10.8) K/uL RBC 5.08 (4.7-6.1) M/uL Hgb 14.7 (14.0-18.0) g/dL Hct 45.1 (42-52) % MCV 88.8 (80-100) fL MCH 28.9 (25-34) pg MCHC 32.6 (32-36) g/dL RDW Std Deviation 53.9 H (36.4-46.3) fL RDW Coeff of Lorenzo 16.5 H (11.5-14.5) % Plt Count 239 (130-400) K/uL MPV 9.7 (7.4-10.4) fL Immature Gran % (Auto) 0.7 % Neut % (Auto) 86.4 % Lymph % (Auto) 8.0 % [place] % (Auto) 4.0 % Eos % (Auto) 0.7 % Baso % (Auto) 0.2 % Neut # (Auto) 15.02 H (1.4-6.5) K/uL Lymph # (Auto) 1.39 (1.2-3.4) K/uL [place] # (Auto) 0.69 H (0.11-0.59) K/uL Eos # (Auto) 0.12 (0-0.5) K/uL Baso # (Auto) 0.03 (0-0.2) K/uL Immature Gran # (Auto) 0.12 H (0.00-0.02) K/uL PT 36.4 H (9.0-12.0) Seconds INR 4.0 H (0.9-1.1) APTT 59.8 H* (21.0-31.0) Seconds PTT Ratio 2.3 Sodium (136-145) mmol/L Potassium (3.5-5.1) mmol/L Chloride (98-107) mmol/L Carbon Dioxide (21-32) mmol/L Anion Gap (3-11) BUN (7-18) mg/dl Creatinine (0.6-1.4) mg/dl Est Cr Clr Drug Dosing ml/min Est GFR ( Amer) ml/min Est GFR (Non-Af Amer) ml/min BUN/Creatinine Ratio (10-20) Glucose (70-99) mg/dl POC Glucose (70-99) mg/dl Lactate (0.4-2.0) mmol/L Calcium (8.5-10.1) mg/dl Magnesium (1.8-2.4) mg/dl Total Bilirubin (0.2-1) mg/dl AST (15-37) U/L ALT (12-78) U/L Alkaline Phosphatase (45-117) U/L Ammonia (11-32) umol/L Total Protein (6.4-8.2) gm/dl Albumin (3.4-5.0) gm/dl Globulin (2.5-4.0) gm/dl Albumin/Globulin Ratio (0.9-2) Urine Color Urine Appearance (Clear) Urine pH (4.5-7.5) Ur Specific [place] (1.000-1.030) Urine Protein (Negative) Urine Glucose (UA) (Negative) Urine Ketones (Negative) Urine Blood (Negative) Urine Nitrite (Negative) Urine Bilirubin (Negative) Urine Urobilinogen (Negative) Ur Leukocyte Esterase (Negative) Urine WBC (Auto) (0-5) /hpf Urine RBC (Auto) (0-4) /hpf U Hyaline Cast (Auto) (0-5) /lpf U Epithel Cells (Auto) (0-5) /lpf Urine Bacteria (Auto) (Negative) Urine Yeast COVID-19 Eval Order SARS-CoV-2 (PCR) (Negative) Blood Type Antibody Screen Coding Level of Care Code Critical Care 1st 30-74 mins Diagnoses Sepsis A41.9; R65.20; N17.9 Sepsis type: sepsis due to unspecified organism Sepsis acute organ dysfunction status: with acute organ dysfunction Severe sepsis acute organ dysfunction type: acute renal failure Acute renal failure type: unspecified Severe sepsis shock status: without septic shock Surgically created abdominal mucous fistula Z93.4 Acute kidney injury N17.9 Elevated INR R79.1 Supratherapeutic INR R79.1 (1) Sepsis Sepsis type: sepsis due to unspecified organism Sepsis acute organ dysfunction status: with acute organ dysfunction Severe sepsis acute organ dysfunction type: acute renal failure Acute renal failure type: unspecified Severe sepsis shock status: without septic shock Qualified Code(s): A41.9 - Sepsis, unspecified organism; R65.20 - Severe sepsis without septic shock; N17.9 - Acute kidney failure, unspecified
[2021-01-27 15:55] LABS: Appearance Urine Cloudy (Clear); Bacteria Urine Automated 1+ (Negative); Bilirubin Urine Negative (Negative); Blood Urine 2+ (Negative); Color Urine Yellow; Glucose Urine UA Negative (Negative); Ketones Urine Trace (Negative); Leukocyte Esterase Urine 2+ (Negative); Nitrite Urine Negative (Negative); Protein Urine 2+ (Negative); RBC Urine Automated 0-4 /hpf (0-4); Specific Gravity Urine 1.015 (1.000-1.030); Urobilinogen Urine Negative (Negative); WBC Urine Automated >30 /hpf (0-5)
--- NOTE | 2021-01-27 16:01 | Procedure Note ---
Procedure Note Date of Service January 27, 2021 Procedure date: Noted above Procedure: Temporary hemodialysis catheter Pre-procedure indication: Hyperkalemia need for hemodialysis Post-procedure Diagnosis: same as above Prior to Procedure: Informed Consent: The risks, benefits, indications, potential complications, and alternatives were verbally explained to the patient and informed consent obtained. Attending Staff: Christiano Arias DO Resident/APC: Not applicable Skin Prep: Chlorhexidine Anesthesia: 4 mL 1% lidocaine without epinephrine The identity of the patient was confirmed and a bedside time out was performed. Description of Procedure: After sterile prep and sterile drape utilizing standard sterile technique the superficial skin of the right internal jugular area was anesthetized. The target vessel was identified and entered with an 18- gauge needle. Dark venous blood return was noted. A guidewire was inserted through the needle and into the vessel. The needle was withdrawn and a skin jairo was made. A tissue dilator was advanced via Seldinger technique and removed. A double lumen catheter was inserted via Seldinger technique and the guidewire removed. All ports carlos and flushed easily. A Biopatch was placed, and the catheter was secured via nylon suture. A sterile dressing was then applied. Complications: None Estimated blood loss: Trace Patient tolerated the procedure well. Procedure Date: Noted Above Procedure: Procedural Ultrasound Indication: Central venous access Attending: Christiano Arias DO Resident/Physician Kicking Machine Operator: Not applicable Artery visualized: Yes Vein visualized: Yes Compressible Vein: Yes Vein patent: Yes Guidewire or Short Catheter seen in vein prior to dilation: Yes Line confirmed in Vein with ultrasound: Yes Lung Sliding on side of attempt (if applicable): NA If no lung sliding or not obtained has CXR been ordered: Yes Impression: Successful central venous access placement Images obtained are saved for permanent record Coding CPT Codes Tubes, Drains, and Vasc Access - Tubes, Drains, and Vasc Access: [id number] Insertion of cannula for hemodialysis ([id number]) Tubes, Drains, and Vasc Access - Tubes, Drains, and Vasc Access: [id number] Insertion Of Non-tunneled Catheter Age 7 Yrs> ([id number]) [facility] Procedure Codes (Charges) Tubes, Drains, and Vasc Access Procedure 1: Tubes, Drains, and Vasc Access: [id number] Insertion of cannula for hemodialysis Procedure 2: Tubes, Drains, and Vasc Access: [id number] Insertion Of Non-tunneled Catheter Age 7 Yrs>
--- NOTE | 2021-01-27 16:34 | Nephrology Consultation ---
Date of Consultation January 27, 2021 Assessment & Plan (1) Acute kidney injury: * Stop Lisinopril and Gabapentin * Agree w/ IV NaHCO3 gtt and medical management of hyperkalemia as provide by ED physician * Orders for HD have been placed in EMR. I have called HD RN and reviewed plan of care with her. Will plan for 3 hrs, 2K 2.5 Ca, HCO3 34, no UF * Velazquez catheter, will order urinalysis w/ microscopy * Will order renal US * Repeat CBC, PRP in am (2) CKD (chronic kidney disease) stage 3, GFR 30-59 ml/min: * Baseline Cr 1.3 History of Present Illness Reason for Consultation: JUAREZ/hyperkalemia Attending Physician: Dave Rodriguez, DO History of Present Illness Mr. Grajeda is a 50 year white male who is seen at the request of Dr. Yeung to provide emergency HD. Medical records in the EMR were reviewed and plan of care was discussed w/ ICU team. Mr. Grajeda is unable to provide any medical history. Details of his history have been obtained from the EMR and are as follows: stage III CKD. Baseline Cr 1.3 09/10. Mr. Grajeda lives in [place], [place] near [place]. His primary sand plant attendant has been Dr. Aggarwal of [facility]. Mr. Grajeda's CKD has been attributed to DKD. His medical history is also significant for kidney stones, AODM, HTN, IV drug use, hepatitis C+ cured w/ Harvoni, CVA w/ R hemiparesis, gout, obesity, ANIBAL. He has been on Lisinopril, Gabapentin and Warfarin as an outpatient. Mr. Grajeda was last hospitalized 11/08 due to SBO w/ JUAREZ. He required transfer to [facility] at that time. [facility] ED visit note today indicates that Mr. Grajeda was brought in by EMR for evaluation of weakness and mental status changes. Family reported that he has suffered from low BP and was found this morning to be confused. ED evaluation revealed WBC 17, Hgb 14, K 7.9, HCO3 8, Cr 5.9, INR 4.0. ECG revealed 1st degree AVB but no peaked T-waves or QRS widening. Medical management of hyperkalemia was initiated in ED (Ca, insulin, dextrose). Mr. Grajeda will be admitted to the ICU for correction of INR, insertion of temporary dialysis catheter and emergency dialysis. Allergies Allergy/AdvReac Type Severity Reaction Status Date / Time No Known Drug Allergies Allergy Unknown Verified 01/27/21 15:14 Home Medications Medication Instructions Recorded Confirmed Type atenolol 25 mg PO QAM 08/18/18 01/27/21 History insulin aspart U-100 [Novolog 0 unit SUBCUT TIDM 10/08/18 01/27/21 History Flexpen U-100 Insulin] Toujeo SoloStar U-300 Insulin 0 unit SUBCUT BID 01/14/19 01/27/21 History gabapentin 300 mg PO BID 01/14/19 01/27/21 History famotidine [Pepcid] 40 mg PO DAILY 05/27/19 01/27/21 History allopurinol 300 mg tablet 300 mg PO DAILY 01/23/20 01/27/21 History cholecalciferol (vitamin D3) 25 25 mcg PO DAILY 01/23/20 01/27/21 History mcg (1,000 unit) capsule clotrimazole-betamethasone 1 applic TOPICAL BID 05/01/20 01/27/21 History oxycodone [Roxicodone] 15 - 30 mg PO TID PRN 05/01/20 01/27/21 History warfarin [Coumadin] 0 mg PO UD 07/26/20 01/27/21 History lisinopril 5 mg PO DAILY 10/11/20 01/27/21 History Patient History Medical History Abdominal infection Acute dehydration Acute kidney injury Acute UTI JUAREZ (acute kidney injury) Arteriosclerosis of coronary artery Arthritis Benign essential hypertension Bilateral lower leg cellulitis Bleeding from colostomy Bleeding from wound Brain abscess CAD (coronary atherosclerotic disease) Cerebrovascular accident (CVA) Cirrhosis CKD (chronic kidney disease) stage 3, GFR 30-59 ml/min Coagulopathy Diabetic nephropathy Diastolic congestive heart failure DM type 2 (diabetes mellitus, type 2) E coli infection Edema of right lower extremity Elevated INR Elevated pulse rate Endocarditis Epididymitis Gout Gram positive bacterial infection H/O blood clots Heart trouble Hematuria Hematuria, gross Hepatitis C Hirschsprung's disease History of CVA (cerebrovascular accident) History of intravenous drug abuse Hyperlipidemia Hypoventilation Leg pain, bilateral Morbid obesity Narcotic poisoning Nephrolithiasis Nephrolithiasis, uric acid Nocturnal hypoxemia Paraplegia Pneumonia Pulmonary emboli Pulmonary hypertension Sepsis Severe sepsis Shortness of breath Sleep apnea, organic Stroke Supratherapeutic INR Transaminitis Type 2 diabetes mellitus, uncontrolled UTI (urinary tract infection) Valvular stenosis Wound infection Surgical History H/O aortic root repair H/O mitral valve repair Hx of CABG S/P cardiac cath S/P colostomy Surgically created abdominal mucous fistula Family History Father Cardiac disorder Hypertension Prostate cancer Diabetes Mother Hypertension Skin cancer Other Family history non-contributory Social History Smoking Status: Former smoker Tobacco Type: Cigarettes Second Hand Exposure: No; Hx Alcohol Use: No Hx Substance Use: No Preferred Language: Korean Communication Ability: Effective Tobacco Wrapping Machine Tender Required: No Beliefs That Will Affect Care: None marital status: Current Living Situation: Parent and Other Current Living Situation Comment: home with parents and 18/hr /day caregivers current occupational status: unemployed 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 Feels Safe at Home: Yes Assistive Devices: Mechanical Lift Review of Systems Review of Systems: Unobtainable due to reduced consciousness Physical Exam Constitutional: + ill appearing Eyes: PERRL, conjunctivae normal, anicteric sclerae ENMT: external ear and nose normal, oropharynx normal Neck: trachea midline, no thyromegaly Respiratory: normal respiratory effort, lungs clear to auscultation Cardiovascular: Rate/Rhythm: regular rate and regular rhythm Extremities: + edema (trace LE edema) Gastrointestinal (Abdomen): normal bowel sounds, soft, nontender, no hepatosplenomegaly Musculoskeletal: Extremities: no cyanosis Skin: no rashes, warm and dry Neurologic: awake; not confused Results & Data ([facility]) Vital Signs (Past 12 Hours) Vital Signs Temp Pulse Pulse Resp BP BP Pulse Ox 01/27/21 15:50 94 H 19 93 01/27/21 15:40 94 H 19 94 01/27/21 15:34 93 H 14 128/72 100 01/27/21 15:30 90 20 74 L 01/27/21 15:20 91 H 17 100 01/27/21 15:15 91 H 25 H 100/65 100 01/27/21 15:10 83 22 100 01/27/21 15:07 86 18 130/74 97 01/27/21 15:00 85 16 95 01/27/21 14:50 84 17 01/27/21 14:40 84 18 01/27/21 14:31 84 15 01/27/21 14:30 85 15 125/63 01/27/21 14:25 86 18 125/63 95 01/27/21 14:20 84 14 01/27/21 14:10 85 16 01/27/21 14:01 88 20 104/70 99 01/27/21 14:00 78 17 01/27/21 13:52 86 17 110/73 01/27/21 13:50 85 20 01/27/21 13:40 86 19 01/27/21 13:30 86 19 86 L 01/27/21 13:27 85 18 103/61 01/27/21 13:25 86 23 103/61 01/27/21 13:20 18 100 01/27/21 13:10 21 01/27/21 13:04 24 82/66 L 01/27/21 13:01 21 64/43 L 01/27/21 13:00 18 01/27/21 12:50 23 01/27/21 12:40 23 99 01/27/21 12:30 90 20 97 01/27/21 12:20 90 18 01/27/21 12:19 90 17 01/27/21 12:16 36.3 C L 90 14 113/42 L 96 01/27/21 12:13 90 18 113/42 L 99 Laboratory Results - last 24 hr 01/27/21 01/27/21 01/27/21 13:44 13:44 13:44 WBC 17.37 H RBC 5.08 Hgb 14.7 Hct 45.1 MCV 88.8 MCH 28.9 MCHC 32.6 RDW Std Deviation 53.9 H RDW Coeff of Lorenzo 16.5 H Plt Count 239 MPV 9.7 Immature Gran % (Auto) 0.7 Neut % (Auto) 86.4 Lymph % (Auto) 8.0 [place] % (Auto) 4.0 Eos % (Auto) 0.7 Baso % (Auto) 0.2 Neut # (Auto) 15.02 H Lymph # (Auto) 1.39 [place] # (Auto) 0.69 H Eos # (Auto) 0.12 Baso # (Auto) 0.03 Immature Gran # (Auto) 0.12 H PT 36.4 H INR 4.0 H APTT 59.8 H* PTT Ratio 2.3 Sodium 131 L Potassium 7.9 H* Chloride 110 H Carbon Dioxide 8 L* Anion Gap 12.0 H BUN 146 H Creatinine 5.95 H* Est Cr Clr Drug Dosing 19.9 Est GFR ( Amer) 11.9 Est GFR (Non-Af Amer) 10.3 BUN/Creatinine Ratio 24.6 H Glucose 152 H POC Glucose Lactate Calcium 8.8 Magnesium 2.6 H Total Bilirubin 0.3 AST 12 L ALT 22 Alkaline Phosphatase 200 H Ammonia Total Protein 9.1 H Albumin 3.4 Globulin 5.7 H Albumin/Globulin Ratio 0.6 L Urine Color Urine Appearance Urine pH Ur Specific [place] Urine Protein Urine Glucose (UA) Urine Ketones Urine Blood Urine Nitrite Urine Bilirubin Urine Urobilinogen Ur Leukocyte Esterase Urine WBC (Auto) Urine RBC (Auto) U Hyaline Cast (Auto) U Epithel Cells (Auto) Urine Bacteria (Auto) Urine Yeast COVID-19 Eval Order SARS-CoV-2 (PCR) Blood Type Antibody Screen 01/27/21 01/27/21 01/27/21 13:44 13:44 13:50 WBC RBC Hgb Hct MCV MCH MCHC RDW Std Deviation RDW Coeff of Lorenzo Plt Count MPV Immature Gran % (Auto) Neut % (Auto) Lymph % (Auto) [place] % (Auto) Eos % (Auto) Baso % (Auto) Neut # (Auto) Lymph # (Auto) [place] # (Auto) Eos # (Auto) Baso # (Auto) Immature Gran # (Auto) PT INR APTT PTT Ratio Sodium Potassium Chloride Carbon Dioxide Anion Gap BUN Creatinine Est Cr Clr Drug Dosing Est GFR ( Amer) Est GFR (Non-Af Amer) BUN/Creatinine Ratio Glucose POC Glucose Lactate 1.0 Calcium Magnesium Total Bilirubin AST ALT Alkaline Phosphatase Ammonia 15.5 Total Protein Albumin Globulin Albumin/Globulin Ratio Urine Color Urine Appearance Urine pH Ur Specific [place] Urine Protein Urine Glucose (UA) Urine Ketones Urine Blood Urine Nitrite Urine Bilirubin Urine Urobilinogen Ur Leukocyte Esterase Urine WBC (Auto) Urine RBC (Auto) U Hyaline Cast (Auto) U Epithel Cells (Auto) Urine Bacteria (Auto) Urine Yeast COVID-19 Eval Order Covid19 at [facility] SARS-CoV-2 (PCR) Blood Type Antibody Screen 01/27/21 01/27/21 01/27/21 13:50 15:33 15:44 WBC RBC Hgb Hct MCV MCH MCHC RDW Std Deviation RDW Coeff of Lorenzo Plt Count MPV Immature Gran % (Auto) Neut % (Auto) Lymph % (Auto) [place] % (Auto) Eos % (Auto) Baso % (Auto) Neut # (Auto) Lymph # (Auto) [place] # (Auto) Eos # (Auto) Baso # (Auto) Immature Gran # (Auto) PT INR APTT PTT Ratio Sodium Potassium Chloride Carbon Dioxide Anion Gap BUN Creatinine Est Cr Clr Drug Dosing Est GFR ( Amer) Est GFR (Non-Af Amer) BUN/Creatinine Ratio Glucose POC Glucose 239 H Lactate Calcium Magnesium Total Bilirubin AST ALT Alkaline Phosphatase Ammonia Total Protein Albumin Globulin Albumin/Globulin Ratio Urine Color Yellow Urine Appearance Cloudy A Urine pH 5.0 Ur Specific [place] 1.015 Urine Protein 2+ H Urine Glucose (UA) Negative Urine Ketones Trace H Urine Blood 2+ H Urine Nitrite Negative Urine Bilirubin Negative Urine Urobilinogen Negative Ur Leukocyte Esterase 2+ H Urine WBC (Auto) >30 H Urine RBC (Auto) 0-4 U Hyaline Cast (Auto) 1-5 U Epithel Cells (Auto) 5-10 H Urine Bacteria (Auto) 1+ H Urine Yeast Not Reportable COVID-19 Eval Order SARS-CoV-2 (PCR) NEGATIVE Blood Type Antibody Screen 01/27/21 01/27/21 15:54 16:25 WBC RBC Hgb Hct MCV MCH MCHC RDW Std Deviation RDW Coeff of Lorenzo Plt Count MPV Immature Gran % (Auto) Neut % (Auto) Lymph % (Auto) [place] % (Auto) Eos % (Auto) Baso % (Auto) Neut # (Auto) Lymph # (Auto) [place] # (Auto) Eos # (Auto) Baso # (Auto) Immature Gran # (Auto) PT INR APTT PTT Ratio Sodium Potassium Chloride Carbon Dioxide Anion Gap BUN Creatinine Est Cr Clr Drug Dosing Est GFR ( Amer) Est GFR (Non-Af Amer) BUN/Creatinine Ratio Glucose POC Glucose 225 H Lactate Calcium Magnesium Total Bilirubin AST ALT Alkaline Phosphatase Ammonia Total Protein Albumin Globulin Albumin/Globulin Ratio Urine Color Urine Appearance Urine pH Ur Specific [place] Urine Protein Urine Glucose (UA) Urine Ketones Urine Blood Urine Nitrite Urine Bilirubin Urine Urobilinogen Ur Leukocyte Esterase Urine WBC (Auto) Urine RBC (Auto) U Hyaline Cast (Auto) U Epithel Cells (Auto) Urine Bacteria (Auto) Urine Yeast COVID-19 Eval Order SARS-CoV-2 (PCR) Blood Type Pending Antibody Screen Pending PG Care Time/CCT Total # of Minutes Spent Total Time Spent with Patient: Total time spent is greater than 50% in coordination of care (as documented) at patient's floor/unit and/or counseling patient: Coding Level of Care Code 06679 Inpt Consult Level 5 Diagnoses Acute kidney injury N17.9 CKD (chronic kidney disease) stage 3, GFR 30-59 ml/min N18.3
--- NOTE | 2021-01-27 16:50 | History & Physical Report ---
Date of Service January 27, 2021 Assessment & Plan (1) Sepsis: Patient to be admitted to the ICU Consideration to urinary tract infection, patient has had a history of this in the past Await blood, urine cultures Empiric antibiotics with Vanco and Zosyn ordered by shop assistant (2) JUAREZ (acute kidney injury): Patient does have chronic renal sufficiency with acute component, creatinine is now 5.9 Patient also has dangerously elevated potassium at 9.5 Nephrology is aware of the patient and the plan for emergent hemodialysis tonight Bicarb drip ordered by shop assistant (3) Supratherapeutic INR: Patient is on Coumadin, sepsis and dehydration may also be playing a role in coagulopathy with INR 4 Will defer to shop assistant, continue to monitor. No anemia or evidence of active bleeding at this time No further chemical DVT prophylaxis necessary in this patient (4) DM type 2 (diabetes mellitus, type 2): Hyperglycemic, and insulin drip ordered by shop assistant Admission and Anticipated Discharge Date Admission Date: January 27, 2021 History of Present Illness Chief Complaint: Change in mental status Primary Care Provider: Demarcus Nicholson DO This is a 50-year-old male with complicated past medical history including paraplegia status post CVA, coronary artery disease, morbid obesity, recent bowel resection, CKD that presents with confusion and change in mental status. Patient is a somewhat limited historian, father is at bedside who is able to provide some history. Patient is apparently been having some lung problems over the past few days. He was having some intermittent hypotension with blood pressures as low as 76/40. This apparently was self-limited and improved. Patient is also having some low- grade temps to 100.1 and diminished appetite. He did not contact his physician until earlier today when he became much more confused. Patient was brought to the emergency room and was found to be in significant JUAREZ. He was also found to be very hyperkalemic. In addition, the patient is on Coumadin and was found to have significantly supratherapeutic INR. Patient is now to be admitted to the ICU with a consult to critical care. Nephrology is aware of his severe renal dysfunction and there are plans for emergent hemodialysis this evening. Allergies Allergy/AdvReac Type Severity Reaction Status Date / Time No Known Drug Allergies Allergy Unknown Verified 01/27/21 15:14 Home Medications Medication Instructions Recorded Confirmed Type atenolol 25 mg PO QAM 08/18/18 01/27/21 History insulin aspart U-100 [Novolog 0 unit SUBCUT TIDM 10/08/18 01/27/21 History Flexpen U-100 Insulin] Toubrie SoloStar U-300 Insulin 0 unit SUBCUT BID 01/14/19 01/27/21 History gabapentin 300 mg PO BID 01/14/19 01/27/21 History famotidine [Pepcid] 40 mg PO DAILY 05/27/19 01/27/21 History allopurinol 300 mg tablet 300 mg PO DAILY 01/23/20 01/27/21 History cholecalciferol (vitamin D3) 25 25 mcg PO DAILY 01/23/20 01/27/21 History mcg (1,000 unit) capsule clotrimazole-betamethasone 1 applic TOPICAL BID 05/01/20 01/27/21 History oxycodone [Roxicodone] 15 - 30 mg PO TID PRN 05/01/20 01/27/21 History warfarin [Coumadin] 0 mg PO UD 07/26/20 01/27/21 History lisinopril 5 mg PO DAILY 10/11/20 01/27/21 History Past Med/Surg History Medical History (Updated 01/27/21 @ 18:42 by Dave Rodriguez DO) Abdominal infection Acute dehydration Acute kidney injury Acute UTI JUAREZ (acute kidney injury) Arteriosclerosis of coronary artery Arthritis Benign essential hypertension Bilateral lower leg cellulitis Bleeding from colostomy Bleeding from wound Brain abscess CAD (coronary atherosclerotic disease) Cerebrovascular accident (CVA) Cirrhosis CKD (chronic kidney disease) stage 3, GFR 30-59 ml/min Coagulopathy Diabetic nephropathy Diastolic congestive heart failure DM type 2 (diabetes mellitus, type 2) E coli infection Edema of right lower extremity Elevated INR Elevated pulse rate Endocarditis Epididymitis Gout Gram positive bacterial infection H/O blood clots Heart trouble Hematuria Hematuria, gross Hepatitis C Hirschsprung's disease History of CVA (cerebrovascular accident) History of intravenous drug abuse Hyperlipidemia Hypoventilation Leg pain, bilateral Morbid obesity Narcotic poisoning Nephrolithiasis Nephrolithiasis, uric acid Nocturnal hypoxemia Paraplegia Pneumonia Pulmonary emboli Pulmonary hypertension Sepsis Severe sepsis Shortness of breath Sleep apnea, organic Stroke Supratherapeutic INR Transaminitis Type 2 diabetes mellitus, uncontrolled UTI (urinary tract infection) Valvular stenosis Wound infection Surgical History H/O aortic root repair H/O mitral valve repair Hx of CABG S/P cardiac cath S/P colostomy Surgically created abdominal mucous fistula Family History Father Cardiac disorder Hypertension Prostate cancer Diabetes Mother Hypertension Skin cancer Other Family history non-contributory Social History Smoking Status: Former smoker Tobacco Type: Cigarettes Second Hand Exposure: No; Hx Alcohol Use: No Hx Substance Use: No Preferred Language: Iranian Communication Ability: Effective Leather Grader Required: No Beliefs That Will Affect Care: None marital status: Current Living Situation: Parent Current Living Situation Comment: home with parents and 18/hr /day caregivers current occupational status: unemployed 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 Feels Safe at Home: Yes Safety Concerns: Feels Safe At This Time Assistive Devices: CPAP Review of Systems Review of Systems: Unobtainable due to cognitive status Physical Exam Constitutional: + morbidly obese and comfortable; no acute distress Neck: trachea midline, no thyromegaly Respiratory: normal respiratory effort Auscultation: + diminished lung sounds (Very limited secondary to body habitus); no crackles, no rales, no rhonchi and no wheezes Cardiovascular: Rate/Rhythm: regular rate and regular rhythm Heart Sounds: normal S1 and normal S2; no murmur Gastrointestinal (Abdomen): Inspection/Auscultation: abdomen normal to inspection Percussion/Palpation: abdomen soft; abdomen nontender, no guarding, abdomen not rigid and no hepatosplenomegaly Skin: no rashes, warm and dry Psychiatric: Awake, answer some questions appropriately but is somewhat confused Results & Data Results & Data ([facility]) Vital Signs (Past 12 Hours) Vital Signs Temp Pulse Pulse Resp BP BP Pulse Ox 01/27/21 15:50 94 H 19 93 01/27/21 15:40 94 H 19 94 01/27/21 15:34 93 H 14 128/72 100 01/27/21 15:30 90 20 74 L 01/27/21 15:20 91 H 17 100 01/27/21 15:15 91 H 25 H 100/65 100 01/27/21 15:10 83 22 100 01/27/21 15:07 86 18 130/74 97 01/27/21 15:00 85 16 95 01/27/21 14:50 84 17 01/27/21 14:40 84 18 01/27/21 14:31 84 15 01/27/21 14:30 85 15 125/63 01/27/21 14:25 86 18 125/63 95 01/27/21 14:20 84 14 01/27/21 14:10 85 16 01/27/21 14:01 88 20 104/70 99 01/27/21 14:00 78 17 01/27/21 13:52 86 17 110/73 01/27/21 13:50 85 20 01/27/21 13:40 86 19 01/27/21 13:30 86 19 86 L 01/27/21 13:27 85 18 103/61 01/27/21 13:25 86 23 103/61 01/27/21 13:20 18 100 01/27/21 13:10 21 01/27/21 13:04 24 82/66 L 01/27/21 13:01 21 64/43 L 01/27/21 13:00 18 01/27/21 12:50 23 01/27/21 12:40 23 99 01/27/21 12:30 90 20 97 01/27/21 12:20 90 18 01/27/21 12:19 90 17 01/27/21 12:16 36.3 C L 90 14 113/42 L 96 01/27/21 12:13 90 18 113/42 L 99 Code Status & VTE Plan VTE Prophylaxis Plan VTE Prophylaxis will be ordered: Yes PG Care Time/CCT Total # of Minutes Spent Total Time Spent with Patient: Total time spent is greater than 50% in coordination of care (as documented) at patient's floor/unit and/or counseling patient: Coding Level of Care Code 63252 Initial Inpt Care Lvl 3 Diagnoses Sepsis A41.9 JUAREZ (acute kidney injury) N17.9 Supratherapeutic INR R79.1 DM type 2 (diabetes mellitus, type 2) E11.69; Z79.4 Diabetes mellitus [facility] insulin use: with computer builder use Diabetes mellitus complication status: with other specified complication (1) DM type 2 (diabetes mellitus, type 2) Diabetes mellitus computer builder insulin use: with [facility] use Diabetes mellitus complication status: with other specified complication Qualified Code(s): E11.69 - Type 2 diabetes mellitus with other specified complication; Z79.4 - pharmacy helper (current) use of insulin
[2021-01-27] MEDS ORDERED: GLUCAGON FOR INJ 1 MG VIAL SQ PRN (16:51)
[2021-01-27] MEDS ORDERED: CARBOHYDRATES FOR HYPOGLYCEMIA PO PRN (16:51)
[2021-01-27] MEDS ORDERED: ICU PROTOCOL FOR HYPERGLYCEMIA PRN (16:51)
[2021-01-27] MEDS ORDERED: DEXTROSE 50% 50 ML SYRINGE IV PRN (16:51)
[2021-01-27] MEDS ORDERED: GLUCOSE 10 TABS/TUBE PO PRN (16:51)
[2021-01-27] MEDS ORDERED: GLUCOSE 40% GEL 15 GM TUBE PO PRN (16:51)
[2021-01-27] MEDS ORDERED: PHARMACY GLYCEMIC MGMT CONSULT PRN (16:58)
[2021-01-27] MEDS ORDERED: SEVERE STRESS LEVEL SCH (17:11)
[2021-01-27] MEDS ORDERED: INSULIN PROTOCOL GOAL RANGE SCH (17:11)
[2021-01-27] MEDS ORDERED: VANCOMYCIN CONSULT ACTIVE PRN ×2 (17:14)
[2021-01-27] MEDS ORDERED: VANCOMYCIN HCL 2,250 MG in SODIUM CHLORIDE 0.9% 500 ML IV ONE (17:14)
[2021-01-27] MEDS ORDERED: PIPERACILL/TAZOBAC CONSULT ACTIVE PRN (17:14)
[2021-01-27] MEDS ORDERED: INSULIN ASPART 100 UNITS/ML 3 ML PEN SC SCH ×2 (17:15→21:00)
[2021-01-27] MEDS ORDERED: PIPERACILLIN/TAZOBACTAM 4.5 GM in DEXTROSE 5% 100 ML IV SCH (17:15)
[2021-01-27] MEDS ORDERED: INSULIN REGULAR 250 UNITS in SODIUM CHLORIDE 0.9% 247.5 ML IV SCH (17:15)
--- NOTE | 2021-01-27 17:21 | XRay Report ---
XR chest 1V portable HISTORY: Evaluate central line placement. COMPARISON: Chest 01/27/2021. FINDINGS: There are low lung volumes. No pneumothorax. No pleural effusions. The heart remains mildly enlarged. There are poststernotomy changes. No new focal lung consolidations to suggest pneumonia. S light prominence of interstitial markings which may be technical. No evidence for pulmonary edema. Th ere is a right jugular central venous catheter. This terminates at the level of the clavicular head a nd could be within the right brachiocephalic vein. This does not extend to the SVC. IMPRESSION: There is a right jugular central venous catheter. This terminates at the level of the clavicular head and could be within the right brachiocephalic vein. This does not extend to the SVC. No pneumothorax . ACT 112: Negative or not required by law. Electronically signed by: Ronnie Abad M.D. 01/27/2021 5:20 PM
--- NOTE | 2021-01-27 17:21 | CT Scan Report ---
CT head/brain wo con CLINICAL HISTORY: 50 years-old Male with AMS eval for bleed. Acutely altered mental status TECHNIQUE: Multiple axial CT images of the head were obtained without contrast. A dose lowering tech nique was utilized adhering to the principles of ALARA. CT DOSE: 998.18 mGy.cm COMPARISON: Head CT 02/08/2019 FINDINGS: No acute intracranial hemorrhage, midline shift, intracranial mass, hydrocephalus, territorial ischem ia or abnormal extra-axial collection. Encephalomalacia secondary to chronic infarct of the left piyush etal lobe redemonstrated. Large area of encephalomalacia involving the right cerebellar, superior and middle cerebellar peduncles with calvarial defect of the occiput is unchanged. The study is motion d egraded. The calvarium is intact. Developmental incomplete bony fusion involves the posterior arch of C1. Mast oid air cells are clear. Partially imaged polypoid mucosal thickening of the right maxillary sinus. IMPRESSION: 1. Motion degraded exam. No acute intracranial abnormality. 2. Chronic findings as above. ACT 112: Negative or not required by law. The above report was generated using voice recognition software. It may contain grammatical, syntax o r spelling errors. Electronically signed by: Reilly Conroy M.D. 01/27/2021 5:20 PM
[2021-01-27 17:47] LABS: Appearance Urine Cloudy (Clear); Bacteria Urine Automated Negative (Negative); Bilirubin Urine Negative (Negative); Blood Urine 2+ (Negative); Color Urine Yellow; Epithelial Cell Urine Auto 20-30 /lpf (0-5); Glucose Urine UA Negative (Negative); Ketones Urine Negative (Negative); Leukocyte Esterase Urine 3+ (Negative); Nitrite Urine Negative (Negative); Protein Urine 1+ (Negative); RBC Urine Automated 0-4 /hpf (0-4); Specific Gravity Urine 1.015 (1.000-1.030); Urobilinogen Urine Negative (Negative); WBC Urine Automated >30 /hpf (0-5)
[2021-01-27] MEDS ORDERED: CEFEPIME CONSULT ACTIVE PRN (17:59)
[2021-01-27] MEDS ORDERED: CEFEPIME 2,000 MG in SYRINGE 0 ML IV SCH (18:00)
[2021-01-27] MEDS ORDERED: NovoLIN-R BOLUS FROM BAG IV STA (18:26)
--- NOTE | 2021-01-27 18:27 | Ultrasound Report ---
US renal/blad retro comp HISTORY: 50 years-old Male JUAREZ acute kidney injury COMPARISON: CT abdomen and pelvis 11/01/2020 TECHNIQUE: Multiple real-time sonographic images of the kidneys and urinary bladder were obtained ass essing grayscale appearance and color flow FINDINGS: Limited study secondary to patient body habitus. The right kidney measures 11.2 x 6.2 x 7.0 cm. Mild hydronephrosis. 6 mm calculus of the upper pole r ight kidney. Cortical medullary differentiation is preserved. No suspicious right-sided renal mass le sions. Left kidney measures 10.7 x 5.5 x 7.7 cm demonstrates mild hydronephrosis. The previously noted large calculus of the superior pole left kidney is not definitively seen. Decompressed urinary bladder with Velazquez catheter. IMPRESSION: 1. Mild bilateral hydronephrosis. 2. Right nephrolithiasis. 3. Decompressed urinary bladder with Velazquez catheter. ACT 112: Negative or not required by law. The above report was generated using voice recognition software. It may contain grammatical, syntax o r spelling errors. Electronically signed by: Reilly Conroy M.D. 01/27/2021 6:25 PM
[2021-01-27] MEDS ORDERED: DEXTROSE 10% 1,000 ML IV SCH (18:30)
[2021-01-27 19:24] LABS: Hepatitis B Surface Ab Quant < 3.10 mIU/mL (>or=10mIU/mL Immune); Hepatitis B Surface Antibody Non-Immune
[2021-01-27] MEDS ORDERED: NOREPINEPHRINE/D5W 8 MG/508 ML IV ONE (19:39)
[2021-01-27] MEDS ORDERED: STAT IV Infusion **Titration per Protocol STA (19:39)
[2021-01-27] MEDS ORDERED: INSULIN GLARGINE SOLOSTAR 100 UNITS/ML 3 ML PEN SC SCH (21:00)
[2021-01-27] MEDS: NOREPINEPHRINE/D5W 8 MG/508 ML BAG IV SCH (21:35)
[2021-01-27] MEDS: CLOTRIMAZOLE/BETAMETHASONE CR 15 GM TUBE EXT SCH (21:39)
[2021-01-27] MEDS: INSULIN ASPART 100 UNITS/ML 3 ML PEN SC SCH (21:44)
[2021-01-27] MEDS: INSULIN GLARGINE SOLOSTAR 100 UNITS/ML 3 ML PEN SC SCH (21:46)
[2021-01-27 23:51] LABS: BUN Creatinine Ratio 28.1 (10-20); Calcium 8.5 mg/dl (8.5-10.1); Creatinine Clr Calc Pharmacy 27.5 ml/min; Est GFR (African American) 18.2 ml/min; Est GFR (Non-African American) 15.7 ml/min; Potassium 5.1 mmol/L (3.5-5.1)
[2021-01-28] MEDS ORDERED: STAT IV STA (00:55)
[2021-01-28] MEDS: INSULIN ASPART 100 UNITS/ML 3 ML PEN SC SCH ×6 (01:16→20:30)
[2021-01-28] MEDS: SODIUM BICARBONATE 8.4% 75 MEQ in SODIUM CHLORIDE 0.45 % 1,000 ML IV SCH ×2 (01:22→11:38)
[2021-01-28 05:19] LABS: Basophils # (auto) 0.02 K/uL (0-0.2); Basophils % (auto) 0.2 %; Eosinophils # (auto) 0.47 K/uL (0-0.5); Hemoglobin 12.7 g/dL (14.0-18.0); Immature Granulocytes # (auto) 0.04 K/uL (0.00-0.02); Immature Granulocytes % (auto) 0.3 %; Lymphocytes # (auto) 1.02 K/uL (1.2-3.4); Lymphocytes % (auto) 8.6 %; Mean Corpuscular Hemoglobin 28.3 pg (25-34); Mean Corpuscular Hgb Conc 32.6 g/dL (32-36); Mean Corpuscular Volume 87.1 fL (80-100); Mean Platelet Volume 9.7 fL (7.4-10.4); Monocytes # (auto) 0.53 K/uL (0.11-0.59); Monocytes % (auto) 4.5 %; Neutrophils # (auto) 9.72 K/uL (1.4-6.5); Neutrophils % (auto) 82.4 %; Platelet Count 175 K/uL (130-400); RDW Coefficient of Variation 16.6 % (11.5-14.5); RDW Standard Deviation 52.7 fL (36.4-46.3); Red Blood Count 4.48 M/uL (4.7-6.1)
[2021-01-28 05:40] LABS: INR 4.9 (0.9-1.1); Partial Thromboplastin Ratio 2.5; Prothrombin Time 43.4 Seconds (9.0-12.0)
[2021-01-28 05:50] LABS: Partial Thromboplastin Time 64.9 Seconds (21.0-31.0)
[2021-01-28 05:58] LABS: Albumin Level 2.9 gm/dl (3.4-5.0); BUN Creatinine Ratio 25.8 (10-20); Bilirubin Direct 0.1 mg/dl (0-0.2); Calcium 8.1 mg/dl (8.5-10.1); Creatinine Clr Calc Pharmacy 28.3 ml/min; Est GFR (African American) 18.9 ml/min; Est GFR (Non-African American) 16.3 ml/min; Magnesium 2.3 mg/dl (1.8-2.4); Potassium 5.2 mmol/L (3.5-5.1)
[2021-01-28 06:00] LABS: Bilirubin,Total 0.5 mg/dl (0.2-1); Phosphorus 6.5 mg/dl (2.5-4.9); Total Protein 7.9 gm/dl (6.4-8.2)
[2021-01-28 07:14] LABS: Estimated Average Glucose 186 mg/dl; Hemoglobin A1C 8.1 % (4.5-5.6)
[2021-01-28] MEDS: INSULIN GLARGINE SOLOSTAR 100 UNITS/ML 3 ML PEN SC SCH ×2 (08:58→20:31)
[2021-01-28] MEDS: CLOTRIMAZOLE/BETAMETHASONE CR 15 GM TUBE EXT SCH ×2 (08:58→20:32)
[2021-01-28] MEDS ORDERED: FAMOTIDINE 40 MG TABLET PO SCH (09:00)
[2021-01-28] MEDS ORDERED: SODIUM CHLORIDE 0.9% 1000ML 1,000 ML IV PRN (09:10)
--- NOTE | 2021-01-28 09:14 | Critical Care Progress Note ---
Date of Service January 28, 2021 Assessment & Plan (1) Sepsis: Reason Critically Ill: 50-year-old male with hyperkalemia and sepsis PLAN: Neuro: Acute encephalopathy: Improving -CT scan of head reviewed Resp: Probable obstructive sleep apnea History tracheostomy -Continue pulse oximetry CV: History endocarditis Hypotension -Responded to fluid administration in the emergency department Fluids/Renal: Acute kidney injury: Improved Hyperkalemia: Improved -Hemodialysis catheter placed -Anticipate second round of dialysis today ID: Sepsis unclear source at this time -Blood cultures ordered, urine culture ordered -Vancomycin and Zosyn GI/Nutrition: LFTs within normal limits alkaline phosphatase mildly elevated at 200 history of being previously elevated Hyperlipidemia -Ammonia within normal limits Heme: Leukocytosis Systemic anticoagulation secondary to venous thromboembolism -Supratherapeutic INR -2.5 mill milligrams oral vitamin K DVT prophylaxis: Chemical prophylaxis contraindicated mechanical prophylaxis contraindicated given elevated INR Endocrine: ICU hyperglycemia protocol -Insulin drip had been discontinued after dialysis Vascular access: Peripheral IV, hemodialysis catheter with central venous access Code Status: Full code Disposition: ICU (2) Surgically created abdominal mucous fistula: (3) Acute kidney injury: (4) Supratherapeutic INR: Admission and Anticipated Discharge Date Admission Date: January 27, 2021 Supervising Physician Co-Signing Physician Notes Patient was discussed on multidisciplinary rounds I have personally spent 35 minutes of critical care time in the direct man agement of this patient. This is a life/limb threatening event. This includes time spent evaluating patient, direct bedside care, chart review, placing orders, interpretation of diagnostic studies, discussion with consultants, patient, and/or family members regarding treatment decisions, as well as other required patient management activities. This time is exclusive of all separately billable procedures, and teaching time and separate from and in addition to any other critical care service time. Subjective Tolerated dialysis overnight Physical Exam Physical Exam: General: Alert, nontoxic. Skin: Warm, dry, Head: Atraumatic Ears, nose, mouth and throat: airway patent Cardiovascular: Normal peripheral perfusion Respiratory: no respiratory distress Gastrointestinal: Non distended, recent surgical scar with still healing area that had been packed with gauze Musculoskeletal: Contractures of right upper extremity Results & Data Results & Data ([facility]) Vital Signs (Past 12 Hours) Vital Signs Temp Pulse Pulse Resp BP BP Pulse Ox 01/28/21 06:31 85 16 81/41 L 97 01/28/21 06:01 82 22 104/49 L 98 01/28/21 05:31 82 18 91/59 L 97 01/28/21 05:01 82 17 100/57 L 96 01/28/21 04:00 88 23 122/92 94 01/28/21 03:01 82 22 96/64 L 01/28/21 02:01 89 19 95/62 L 95 01/28/21 01:31 87 18 115/74 97 01/28/21 01:00 88 17 105/61 97 01/28/21 00:31 81 21 86/68 L 96 01/28/21 00:15 90 01/28/21 00:01 94 H 20 118/65 97 01/28/21 00:00 90 01/27/21 23:31 90 21 116/76 97 01/27/21 22:56 84 17 119/73 98 01/27/21 22:46 37.2 C 81 83 17 127/65 142/76 H 99 01/27/21 22:31 83 20 107/78 96 01/27/21 22:15 89 24 112/93 99 01/27/21 22:00 83 119/68 01/27/21 21:56 90 25 H 142/75 H 99 01/27/21 21:46 80 19 116/78 99 01/27/21 21:45 83 129/69 01/27/21 21:30 79 137/76 01/27/21 21:26 81 20 137/76 99 01/27/21 21:15 80 17 120/71 97 Laboratory Results 01/28/21 01/28/21 01/28/21 Range/Units 08:55 05:38 04:46 WBC (4.8-10.8) K/uL RBC (4.7-6.1) M/uL Hgb (14.0-18.0) g/dL Hct (42-52) % MCV (80-100) fL MCH (25-34) pg MCHC (32-36) g/dL RDW Std Deviation (36.4-46.3) fL RDW Coeff of Lorenzo (11.5-14.5) % Plt Count (130-400) K/uL MPV (7.4-10.4) fL Immature Gran % (Auto) % Neut % (Auto) % Lymph % (Auto) % [place] % (Auto) % Eos % (Auto) % Baso % (Auto) % Neut # (Auto) (1.4-6.5) K/uL Lymph # (Auto) (1.2-3.4) K/uL [place] # (Auto) (0.11-0.59) K/uL Eos # (Auto) (0-0.5) K/uL Baso # (Auto) (0-0.2) K/uL Immature Gran # (Auto) (0.00-0.02) K/uL PT (9.0-12.0) Seconds INR (0.9-1.1) APTT (21.0-31.0) Seconds PTT Ratio Sodium (136-145) mmol/L Potassium (3.5-5.1) mmol/L Chloride (98-107) mmol/L Carbon Dioxide (21-32) mmol/L Anion Gap (3-11) BUN (7-18) mg/dl Creatinine (0.6-1.4) mg/dl Est Cr Clr Drug Dosing ml/min Est GFR ( Amer) ml/min Est GFR (Non-Af Amer) ml/min BUN/Creatinine Ratio (10-20) Glucose (70-99) mg/dl POC Glucose 136 H 142 H (70-99) mg/dl Estimat Average Glucose mg/dl Hemoglobin A1c (4.5-5.6) % Lactate (0.4-2.0) mmol/L Calcium (8.5-10.1) mg/dl Phosphorus (2.5-4.9) mg/dl Magnesium (1.8-2.4) mg/dl Total Bilirubin (0.2-1) mg/dl Direct Bilirubin (0-0.2) mg/dl AST (15-37) U/L ALT (12-78) U/L Alkaline Phosphatase (45-117) U/L Ammonia (11-32) umol/L Total Protein (6.4-8.2) gm/dl Albumin (3.4-5.0) gm/dl Globulin (2.5-4.0) gm/dl Albumin/Globulin Ratio (0.9-2) Urine Color Urine Appearance (Clear) Urine pH (4.5-7.5) Ur Specific [place] (1.000-1.030) Urine Protein (Negative) Urine Glucose (UA) (Negative) Urine Ketones (Negative) Urine Blood (Negative) Urine Nitrite (Negative) Urine Bilirubin (Negative) Urine Urobilinogen (Negative) Ur Leukocyte Esterase (Negative) Urine WBC (Auto) (0-5) /hpf Urine RBC (Auto) (0-4) /hpf U Hyaline Cast (Auto) (0-5) /lpf U Epithel Cells (Auto) (0-5) /lpf Urine Bacteria (Auto) (Negative) Urine Yeast Nasal Screen MRSA (PCR) (Negative) Random Vancomycin 22.0 mcg/ml COVID-19 Eval Order SARS-CoV-2 (PCR) (Negative) Hep Bs Antigen (Neg) Hep Bs Antibody Hep Bs Antibody, Quant (>or=10mIU/mL Immune) mIU/mL Blood Type Antibody Screen Antibody Identification Antibody ID Comment 01/28/21 01/28/21 01/28/21 Range/Units 04:46 04:46 04:46 WBC (4.8-10.8) K/uL RBC (4.7-6.1) M/uL Hgb (14.0-18.0) g/dL Hct (42-52) % MCV (80-100) fL MCH (25-34) pg MCHC (32-36) g/dL RDW Std Deviation (36.4-46.3) fL RDW Coeff of Lorenzo (11.5-14.5) % Plt Count (130-400) K/uL MPV (7.4-10.4) fL Immature Gran % (Auto) % Neut % (Auto) % Lymph % (Auto) % [place] % (Auto) % Eos % (Auto) % Baso % (Auto) % Neut # (Auto) (1.4-6.5) K/uL Lymph # (Auto) (1.2-3.4) K/uL [place] # (Auto) (0.11-0.59) K/uL Eos # (Auto) (0-0.5) K/uL Baso # (Auto) (0-0.2) K/uL Immature Gran # (Auto) (0.00-0.02) K/uL PT 43.4 H (9.0-12.0) Seconds INR 4.9 H (0.9-1.1) APTT 64.9 H* (21.0-31.0) Seconds PTT Ratio 2.5 Sodium 138 (136-145) mmol/L Potassium 5.2 H (3.5-5.1) mmol/L Chloride 114 H (98-107) mmol/L Carbon Dioxide 16 L (21-32) mmol/L Anion Gap 8.0 (3-11) BUN 105 H (7-18) mg/dl Creatinine 4.06 H (0.6-1.4) mg/dl Est Cr Clr Drug Dosing 28.3 ml/min Est GFR ( Amer) 18.9 ml/min Est GFR (Non-Af Amer) 16.3 ml/min BUN/Creatinine Ratio 25.8 H (10-20) Glucose 153 H (70-99) mg/dl POC Glucose (70-99) mg/dl Estimat Average Glucose 186 mg/dl Hemoglobin A1c 8.1 H (4.5-5.6) % Lactate (0.4-2.0) mmol/L Calcium 8.1 L (8.5-10.1) mg/dl Phosphorus 6.5 H (2.5-4.9) mg/dl Magnesium 2.3 (1.8-2.4) mg/dl Total Bilirubin 0.5 (0.2-1) mg/dl Direct Bilirubin 0.1 (0-0.2) mg/dl AST 12 L (15-37) U/L ALT 16 (12-78) U/L Alkaline Phosphatase 157 H (45-117) U/L Ammonia (11-32) umol/L Total Protein 7.9 (6.4-8.2) gm/dl Albumin 2.9 L (3.4-5.0) gm/dl Globulin (2.5-4.0) gm/dl Albumin/Globulin Ratio (0.9-2) Urine Color Urine Appearance (Clear) Urine pH (4.5-7.5) Ur Specific [place] (1.000-1.030) Urine Protein (Negative) Urine Glucose (UA) (Negative) Urine Ketones (Negative) Urine Blood (Negative) Urine Nitrite (Negative) Urine Bilirubin (Negative) Urine Urobilinogen (Negative) Ur Leukocyte Esterase (Negative) Urine WBC (Auto) (0-5) /hpf Urine RBC (Auto) (0-4) /hpf U Hyaline Cast (Auto) (0-5) /lpf U Epithel Cells (Auto) (0-5) /lpf Urine Bacteria (Auto) (Negative) Urine Yeast Nasal Screen MRSA (PCR) (Negative) Random Vancomycin mcg/ml COVID-19 Eval Order SARS-CoV-2 (PCR) (Negative) Hep Bs Antigen (Neg) Hep Bs Antibody Hep Bs Antibody, Quant (>or=10mIU/mL Immune) mIU/mL Blood Type Antibody Screen Antibody Identification Antibody ID Comment 01/28/21 01/28/21 01/27/21 Range/Units 04:46 01:13 23:11 WBC 11.80 H (4.8-10.8) K/uL RBC 4.48 L (4.7-6.1) M/uL Hgb 12.7 L (14.0-18.0) g/dL Hct 39.0 L (42-52) % MCV 87.1 (80-100) fL MCH 28.3 (25-34) pg MCHC 32.6 (32-36) g/dL RDW Std Deviation 52.7 H (36.4-46.3) fL RDW Coeff of Lorenzo 16.6 H (11.5-14.5) % Plt Count 175 (130-400) K/uL MPV 9.7 (7.4-10.4) fL Immature Gran % (Auto) 0.3 % Neut % (Auto) 82.4 % Lymph % (Auto) 8.6 % [place] % (Auto) 4.5 % Eos % (Auto) 4.0 % Baso % (Auto) 0.2 % Neut # (Auto) 9.72 H (1.4-6.5) K/uL Lymph # (Auto) 1.02 L (1.2-3.4) K/uL [place] # (Auto) 0.53 (0.11-0.59) K/uL Eos # (Auto) 0.47 (0-0.5) K/uL Baso # (Auto) 0.02 (0-0.2) K/uL Immature Gran # (Auto) 0.04 H (0.00-0.02) K/uL PT (9.0-12.0) Seconds INR (0.9-1.1) APTT (21.0-31.0) Seconds PTT Ratio Sodium 136 (136-145) mmol/L Potassium 5.1 D (3.5-5.1) mmol/L Chloride 111 H (98-107) mmol/L Carbon Dioxide 13 L (21-32) mmol/L Anion Gap 12.0 H (3-11) BUN 118 H (7-18) mg/dl Creatinine 4.18 H D (0.6-1.4) mg/dl Est Cr Clr Drug Dosing 27.5 ml/min Est GFR ( Amer) 18.2 ml/min Est GFR (Non-Af Amer) 15.7 ml/min BUN/Creatinine Ratio 28.1 H (10-20) Glucose 153 H (70-99) mg/dl POC Glucose 157 H (70-99) mg/dl Estimat Average Glucose mg/dl Hemoglobin A1c (4.5-5.6) % Lactate (0.4-2.0) mmol/L Calcium 8.5 (8.5-10.1) mg/dl Phosphorus (2.5-4.9) mg/dl Magnesium (1.8-2.4) mg/dl Total Bilirubin (0.2-1) mg/dl Direct Bilirubin (0-0.2) mg/dl AST (15-37) U/L ALT (12-78) U/L Alkaline Phosphatase (45-117) U/L Ammonia (11-32) umol/L Total Protein (6.4-8.2) gm/dl Albumin (3.4-5.0) gm/dl Globulin (2.5-4.0) gm/dl Albumin/Globulin Ratio (0.9-2) Urine Color Urine Appearance (Clear) Urine pH (4.5-7.5) Ur Specific [place] (1.000-1.030) Urine Protein (Negative) Urine Glucose (UA) (Negative) Urine Ketones (Negative) Urine Blood (Negative) Urine Nitrite (Negative) Urine Bilirubin (Negative) Urine Urobilinogen (Negative) Ur Leukocyte Esterase (Negative) Urine WBC (Auto) (0-5) /hpf Urine RBC (Auto) (0-4) /hpf U Hyaline Cast (Auto) (0-5) /lpf U Epithel Cells (Auto) (0-5) /lpf Urine Bacteria (Auto) (Negative) Urine Yeast Nasal Screen MRSA (PCR) (Negative) Random Vancomycin mcg/ml COVID-19 Eval Order SARS-CoV-2 (PCR) (Negative) Hep Bs Antigen (Neg) Hep Bs Antibody Hep Bs Antibody, Quant (>or=10mIU/mL Immune) mIU/mL Blood Type Antibody Screen Antibody Identification Antibody ID Comment 01/27/21 01/27/21 01/27/21 Range/Units 21:41 18:12 17:30 WBC (4.8-10.8) K/uL RBC (4.7-6.1) M/uL Hgb (14.0-18.0) g/dL Hct (42-52) % MCV (80-100) fL MCH (25-34) pg MCHC (32-36) g/dL RDW Std Deviation (36.4-46.3) fL RDW Coeff of Lorenzo (11.5-14.5) % Plt Count (130-400) K/uL MPV (7.4-10.4) fL Immature Gran % (Auto) % Neut % (Auto) % Lymph % (Auto) % [place] % (Auto) % Eos % (Auto) % Baso % (Auto) % Neut # (Auto) (1.4-6.5) K/uL Lymph # (Auto) (1.2-3.4) K/uL [place] # (Auto) (0.11-0.59) K/uL Eos # (Auto) (0-0.5) K/uL Baso # (Auto) (0-0.2) K/uL Immature Gran # (Auto) (0.00-0.02) K/uL PT (9.0-12.0) Seconds INR (0.9-1.1) APTT (21.0-31.0) Seconds PTT Ratio Sodium (136-145) mmol/L Potassium (3.5-5.1) mmol/L Chloride (98-107) mmol/L Carbon Dioxide (21-32) mmol/L Anion Gap (3-11) BUN (7-18) mg/dl Creatinine (0.6-1.4) mg/dl Est Cr Clr Drug Dosing ml/min Est GFR ( Amer) ml/min Est GFR (Non-Af Amer) ml/min BUN/Creatinine Ratio (10-20) Glucose (70-99) mg/dl POC Glucose 140 H 163 H (70-99) mg/dl Estimat Average Glucose mg/dl Hemoglobin A1c (4.5-5.6) % Lactate (0.4-2.0) mmol/L Calcium (8.5-10.1) mg/dl Phosphorus (2.5-4.9) mg/dl Magnesium (1.8-2.4) mg/dl Total Bilirubin (0.2-1) mg/dl Direct Bilirubin (0-0.2) mg/dl AST (15-37) U/L ALT (12-78) U/L Alkaline Phosphatase (45-117) U/L Ammonia (11-32) umol/L Total Protein (6.4-8.2) gm/dl Albumin (3.4-5.0) gm/dl Globulin (2.5-4.0) gm/dl Albumin/Globulin Ratio (0.9-2) Urine Color Yellow Urine Appearance Cloudy A (Clear) Urine pH 5.0 (4.5-7.5) Ur Specific [place] 1.015 (1.000-1.030) Urine Protein 1+ H (Negative) Urine Glucose (UA) Negative (Negative) Urine Ketones Negative (Negative) Urine Blood 2+ H (Negative) Urine Nitrite Negative (Negative) Urine Bilirubin Negative (Negative) Urine Urobilinogen Negative (Negative) Ur Leukocyte Esterase 3+ H (Negative) Urine WBC (Auto) >30 H (0-5) /hpf Urine RBC (Auto) 0-4 (0-4) /hpf U Hyaline Cast (Auto) 1-5 (0-5) /lpf U Epithel Cells (Auto) 20-30 H (0-5) /lpf Urine Bacteria (Auto) Negative (Negative) Urine Yeast Budding A Nasal Screen MRSA (PCR) (Negative) Random Vancomycin mcg/ml COVID-19 Eval Order SARS-CoV-2 (PCR) (Negative) Hep Bs Antigen (Neg) Hep Bs Antibody Hep Bs Antibody, Quant (>or=10mIU/mL Immune) mIU/mL Blood Type Antibody Screen Antibody Identification Antibody ID Comment 01/27/21 01/27/21 01/27/21 Range/Units 17:30 16:25 15:54 WBC (4.8-10.8) K/uL RBC (4.7-6.1) M/uL Hgb (14.0-18.0) g/dL Hct (42-52) % MCV (80-100) fL MCH (25-34) pg MCHC (32-36) g/dL RDW Std Deviation (36.4-46.3) fL RDW Coeff of Lorenzo (11.5-14.5) % Plt Count (130-400) K/uL MPV (7.4-10.4) fL Immature Gran % (Auto) % Neut % (Auto) % Lymph % (Auto) % [place] % (Auto) % Eos % (Auto) % Baso % (Auto) % Neut # (Auto) (1.4-6.5) K/uL Lymph # (Auto) (1.2-3.4) K/uL [place] # (Auto) (0.11-0.59) K/uL Eos # (Auto) (0-0.5) K/uL Baso # (Auto) (0-0.2) K/uL Immature Gran # (Auto) (0.00-0.02) K/uL PT (9.0-12.0) Seconds INR (0.9-1.1) APTT (21.0-31.0) Seconds PTT Ratio Sodium (136-145) mmol/L Potassium (3.5-5.1) mmol/L Chloride (98-107) mmol/L Carbon Dioxide (21-32) mmol/L Anion Gap (3-11) BUN (7-18) mg/dl Creatinine (0.6-1.4) mg/dl Est Cr Clr Drug Dosing ml/min Est GFR ( Amer) ml/min Est GFR (Non-Af Amer) ml/min BUN/Creatinine Ratio (10-20) Glucose (70-99) mg/dl POC Glucose 225 H (70-99) mg/dl Estimat Average Glucose mg/dl Hemoglobin A1c (4.5-5.6) % Lactate (0.4-2.0) mmol/L Calcium (8.5-10.1) mg/dl Phosphorus (2.5-4.9) mg/dl Magnesium (1.8-2.4) mg/dl Total Bilirubin (0.2-1) mg/dl Direct Bilirubin (0-0.2) mg/dl AST (15-37) U/L ALT (12-78) U/L Alkaline Phosphatase (45-117) U/L Ammonia (11-32) umol/L Total Protein (6.4-8.2) gm/dl Albumin (3.4-5.0) gm/dl Globulin (2.5-4.0) gm/dl Albumin/Globulin Ratio (0.9-2) Urine Color Urine Appearance (Clear) Urine pH (4.5-7.5) Ur Specific [place] (1.000-1.030) Urine Protein (Negative) Urine Glucose (UA) (Negative) Urine Ketones (Negative) Urine Blood (Negative) Urine Nitrite (Negative) Urine Bilirubin (Negative) Urine Urobilinogen (Negative) Ur Leukocyte Esterase (Negative) Urine WBC (Auto) (0-5) /hpf Urine RBC (Auto) (0-4) /hpf U Hyaline Cast (Auto) (0-5) /lpf U Epithel Cells (Auto) (0-5) /lpf Urine Bacteria (Auto) (Negative) Urine Yeast Nasal Screen MRSA (PCR) Negative (Negative) Random Vancomycin mcg/ml COVID-19 Eval Order SARS-CoV-2 (PCR) (Negative) Hep Bs Antigen (Neg) Hep Bs Antibody Hep Bs Antibody, Quant (>or=10mIU/mL Immune) mIU/mL Blood Type O Positive Antibody Screen POSITIVE A Antibody Identification Anti-E Antibody ID Comment Pending 01/27/21 01/27/21 01/27/21 Range/Units 15:44 15:33 13:50 WBC (4.8-10.8) K/uL RBC (4.7-6.1) M/uL Hgb (14.0-18.0) g/dL Hct (42-52) % MCV (80-100) fL MCH (25-34) pg MCHC (32-36) g/dL RDW Std Deviation (36.4-46.3) fL RDW Coeff of Lorenzo (11.5-14.5) % Plt Count (130-400) K/uL MPV (7.4-10.4) fL Immature Gran % (Auto) % Neut % (Auto) % Lymph % (Auto) % [place] % (Auto) % Eos % (Auto) % Baso % (Auto) % Neut # (Auto) (1.4-6.5) K/uL Lymph # (Auto) (1.2-3.4) K/uL [place] # (Auto) (0.11-0.59) K/uL Eos # (Auto) (0-0.5) K/uL Baso # (Auto) (0-0.2) K/uL Immature Gran # (Auto) (0.00-0.02) K/uL PT (9.0-12.0) Seconds INR (0.9-1.1) APTT (21.0-31.0) Seconds PTT Ratio Sodium (136-145) mmol/L Potassium (3.5-5.1) mmol/L Chloride (98-107) mmol/L Carbon Dioxide (21-32) mmol/L Anion Gap (3-11) BUN (7-18) mg/dl Creatinine (0.6-1.4) mg/dl Est Cr Clr Drug Dosing ml/min Est GFR ( Amer) ml/min Est GFR (Non-Af Amer) ml/min BUN/Creatinine Ratio (10-20) Glucose (70-99) mg/dl POC Glucose 239 H (70-99) mg/dl Estimat Average Glucose mg/dl Hemoglobin A1c (4.5-5.6) % Lactate (0.4-2.0) mmol/L Calcium (8.5-10.1) mg/dl Phosphorus (2.5-4.9) mg/dl Magnesium (1.8-2.4) mg/dl Total Bilirubin (0.2-1) mg/dl Direct Bilirubin (0-0.2) mg/dl AST (15-37) U/L ALT (12-78) U/L Alkaline Phosphatase (45-117) U/L Ammonia (11-32) umol/L Total Protein (6.4-8.2) gm/dl Albumin (3.4-5.0) gm/dl Globulin (2.5-4.0) gm/dl Albumin/Globulin Ratio (0.9-2) Urine Color Yellow Urine Appearance Cloudy A (Clear) Urine pH 5.0 (4.5-7.5) Ur Specific [place] 1.015 (1.000-1.030) Urine Protein 2+ H (Negative) Urine Glucose (UA) Negative (Negative) Urine Ketones Trace H (Negative) Urine Blood 2+ H (Negative) Urine Nitrite Negative (Negative) Urine Bilirubin Negative (Negative) Urine Urobilinogen Negative (Negative) Ur Leukocyte Esterase 2+ H (Negative) Urine WBC (Auto) >30 H (0-5) /hpf Urine RBC (Auto) 0-4 (0-4) /hpf U Hyaline Cast (Auto) 1-5 (0-5) /lpf U Epithel Cells (Auto) 5-10 H (0-5) /lpf Urine Bacteria (Auto) 1+ H (Negative) Urine Yeast Not Reportable Nasal Screen MRSA (PCR) (Negative) Random Vancomycin mcg/ml COVID-19 Eval Order SARS-CoV-2 (PCR) NEGATIVE (Negative) Hep Bs Antigen (Neg) Hep Bs Antibody Hep Bs Antibody, Quant (>or=10mIU/mL Immune) mIU/mL Blood Type Antibody Screen Antibody Identification Antibody ID Comment 01/27/21 01/27/21 01/27/21 Range/Units 13:50 13:47 13:47 WBC (4.8-10.8) K/uL RBC (4.7-6.1) M/uL Hgb (14.0-18.0) g/dL Hct (42-52) % MCV (80-100) fL MCH (25-34) pg MCHC (32-36) g/dL RDW Std Deviation (36.4-46.3) fL RDW Coeff of [place] (11.5-14.5) % Plt Count (130-400) K/uL MPV (7.4-10.4) fL Immature Gran % (Auto) % Neut % (Auto) % Lymph % (Auto) % [place] % (Auto) % Eos % (Auto) % Baso % (Auto) % Neut # (Auto) (1.4-6.5) K/uL Lymph # (Auto) (1.2-3.4) K/uL [place] # (Auto) (0.11-0.59) K/uL Eos # (Auto) (0-0.5) K/uL Baso # (Auto) (0-0.2) K/uL Immature Gran # (Auto) (0.00-0.02) K/uL PT (9.0-12.0) Seconds INR (0.9-1.1) APTT (21.0-31.0) Seconds PTT Ratio Sodium (136-145) mmol/L Potassium (3.5-5.1) mmol/L Chloride (98-107) mmol/L Carbon Dioxide (21-32) mmol/L Anion Gap (3-11) BUN (7-18) mg/dl Creatinine (0.6-1.4) mg/dl Est Cr Clr Drug Dosing ml/min Est GFR ( Amer) ml/min Est GFR (Non-Af Amer) ml/min BUN/Creatinine Ratio (10-20) Glucose (70-99) mg/dl POC Glucose (70-99) mg/dl Estimat Average Glucose mg/dl Hemoglobin A1c (4.5-5.6) % Lactate (0.4-2.0) mmol/L Calcium (8.5-10.1) mg/dl Phosphorus (2.5-4.9) mg/dl Magnesium (1.8-2.4) mg/dl Total Bilirubin (0.2-1) mg/dl Direct Bilirubin (0-0.2) mg/dl AST (15-37) U/L ALT (12-78) U/L Alkaline Phosphatase (45-117) U/L Ammonia (11-32) umol/L Total Protein (6.4-8.2) gm/dl Albumin (3.4-5.0) gm/dl Globulin (2.5-4.0) gm/dl Albumin/Globulin Ratio (0.9-2) Urine Color Urine Appearance (Clear) Urine pH (4.5-7.5) Ur Specific [place] (1.000-1.030) Urine Protein (Negative) Urine Glucose (UA) (Negative) Urine Ketones (Negative) Urine Blood (Negative) Urine Nitrite (Negative) Urine Bilirubin (Negative) Urine Urobilinogen (Negative) Ur Leukocyte Esterase (Negative) Urine WBC (Auto) (0-5) /hpf Urine RBC (Auto) (0-4) /hpf U Hyaline Cast (Auto) (0-5) /lpf U Epithel Cells (Auto) (0-5) /lpf Urine Bacteria (Auto) (Negative) Urine Yeast Nasal Screen MRSA (PCR) (Negative) Random Vancomycin mcg/ml COVID-19 Eval Order Covid19 at [facility] SARS-CoV-2 (PCR) (Negative) Hep Bs Antigen Neg Pending (Neg) Hep Bs Antibody Hep Bs Antibody, Quant (>or=10mIU/mL Immune) mIU/mL Blood Type Antibody Screen Antibody Identification Antibody ID Comment 01/27/21 01/27/21 01/27/21 Range/Units 13:47 13:44 13:44 WBC (4.8-10.8) K/uL RBC (4.7-6.1) M/uL Hgb (14.0-18.0) g/dL Hct (42-52) % MCV (80-100) fL MCH (25-34) pg MCHC (32-36) g/dL RDW Std Deviation (36.4-46.3) fL RDW Coeff of Lorenzo (11.5-14.5) % Plt Count (130-400) K/uL MPV (7.4-10.4) fL Immature Gran % (Auto) % Neut % (Auto) % Lymph % (Auto) % [place] % (Auto) % Eos % (Auto) % Baso % (Auto) % Neut # (Auto) (1.4-6.5) K/uL Lymph # (Auto) (1.2-3.4) K/uL [place] # (Auto) (0.11-0.59) K/uL Eos # (Auto) (0-0.5) K/uL Baso # (Auto) (0-0.2) K/uL Immature Gran # (Auto) (0.00-0.02) K/uL PT (9.0-12.0) Seconds INR (0.9-1.1) APTT (21.0-31.0) Seconds PTT Ratio Sodium (136-145) mmol/L Potassium (3.5-5.1) mmol/L Chloride (98-107) mmol/L Carbon Dioxide (21-32) mmol/L Anion Gap (3-11) BUN (7-18) mg/dl Creatinine (0.6-1.4) mg/dl Est Cr Clr Drug Dosing ml/min Est GFR ( Amer) ml/min Est GFR (Non-Af Amer) ml/min BUN/Creatinine Ratio (10-20) Glucose (70-99) mg/dl POC Glucose (70-99) mg/dl Estimat Average Glucose mg/dl Hemoglobin A1c (4.5-5.6) % Lactate 1.0 (0.4-2.0) mmol/L Calcium (8.5-10.1) mg/dl Phosphorus (2.5-4.9) mg/dl Magnesium (1.8-2.4) mg/dl Total Bilirubin (0.2-1) mg/dl Direct Bilirubin (0-0.2) mg/dl AST (15-37) U/L ALT (12-78) U/L Alkaline Phosphatase (45-117) U/L Ammonia 15.5 (11-32) umol/L Total Protein (6.4-8.2) gm/dl Albumin (3.4-5.0) gm/dl Globulin (2.5-4.0) gm/dl Albumin/Globulin Ratio (0.9-2) Urine Color Urine Appearance (Clear) Urine pH (4.5-7.5) Ur Specific [place] (1.000-1.030) Urine Protein (Negative) Urine Glucose (UA) (Negative) Urine Ketones (Negative) Urine Blood (Negative) Urine Nitrite (Negative) Urine Bilirubin (Negative) Urine Urobilinogen (Negative) Ur Leukocyte Esterase (Negative) Urine WBC (Auto) (0-5) /hpf Urine RBC (Auto) (0-4) /hpf U Hyaline Cast (Auto) (0-5) /lpf U Epithel Cells (Auto) (0-5) /lpf Urine Bacteria (Auto) (Negative) Urine Yeast Nasal Screen MRSA (PCR) (Negative) Random Vancomycin mcg/ml COVID-19 Eval Order SARS-CoV-2 (PCR) (Negative) Hep Bs Antigen (Neg) Hep Bs Antibody Non-Immune Hep Bs Antibody, Quant < 3.10 L (>or=10mIU/mL Immune) mIU/mL Blood Type Antibody Screen Antibody Identification Antibody ID Comment 01/27/21 01/27/21 01/27/21 Range/Units 13:44 13:44 13:44 WBC 17.37 H (4.8-10.8) K/uL RBC 5.08 (4.7-6.1) M/uL Hgb 14.7 (14.0-18.0) g/dL Hct 45.1 (42-52) % MCV 88.8 (80-100) fL MCH 28.9 (25-34) pg MCHC 32.6 (32-36) g/dL RDW Std Deviation 53.9 H (36.4-46.3) fL RDW Coeff of Lorenzo 16.5 H (11.5-14.5) % Plt Count 239 (130-400) K/uL MPV 9.7 (7.4-10.4) fL Immature Gran % (Auto) 0.7 % Neut % (Auto) 86.4 % Lymph % (Auto) 8.0 % [place] % (Auto) 4.0 % Eos % (Auto) 0.7 % Baso % (Auto) 0.2 % Neut # (Auto) 15.02 H (1.4-6.5) K/uL Lymph # (Auto) 1.39 (1.2-3.4) K/uL [place] # (Auto) 0.69 H (0.11-0.59) K/uL Eos # (Auto) 0.12 (0-0.5) K/uL Baso # (Auto) 0.03 (0-0.2) K/uL Immature Gran # (Auto) 0.12 H (0.00-0.02) K/uL PT 36.4 H (9.0-12.0) Seconds INR 4.0 H (0.9-1.1) APTT 59.8 H* (21.0-31.0) Seconds PTT Ratio 2.3 Sodium 131 L (136-145) mmol/L Potassium 7.9 H* (3.5-5.1) mmol/L Chloride 110 H (98-107) mmol/L Carbon Dioxide 8 L* (21-32) mmol/L Anion Gap 12.0 H (3-11) BUN 146 H (7-18) mg/dl Creatinine 5.95 H* (0.6-1.4) mg/dl Est Cr Clr Drug Dosing 19.9 ml/min Est GFR ( Amer) 11.9 ml/min Est GFR (Non-Af Amer) 10.3 ml/min BUN/Creatinine Ratio 24.6 H (10-20) Glucose 152 H (70-99) mg/dl POC Glucose (70-99) mg/dl Estimat Average Glucose mg/dl Hemoglobin A1c (4.5-5.6) % Lactate (0.4-2.0) mmol/L Calcium 8.8 (8.5-10.1) mg/dl Phosphorus (2.5-4.9) mg/dl Magnesium 2.6 H (1.8-2.4) mg/dl Total Bilirubin 0.3 (0.2-1) mg/dl Direct Bilirubin (0-0.2) mg/dl AST 12 L (15-37) U/L ALT 22 (12-78) U/L Alkaline Phosphatase 200 H (45-117) U/L Ammonia (11-32) umol/L Total Protein 9.1 H (6.4-8.2) gm/dl Albumin 3.4 (3.4-5.0) gm/dl Globulin 5.7 H (2.5-4.0) gm/dl Albumin/Globulin Ratio 0.6 L (0.9-2) Urine Color Urine Appearance (Clear) Urine pH (4.5-7.5) Ur Specific [place] (1.000-1.030) Urine Protein (Negative) Urine Glucose (UA) (Negative) Urine Ketones (Negative) Urine Blood (Negative) Urine Nitrite (Negative) Urine Bilirubin (Negative) Urine Urobilinogen (Negative) Ur Leukocyte Esterase (Negative) Urine WBC (Auto) (0-5) /hpf Urine RBC (Auto) (0-4) /hpf U Hyaline Cast (Auto) (0-5) /lpf U Epithel Cells (Auto) (0-5) /lpf Urine Bacteria (Auto) (Negative) Urine Yeast Nasal Screen MRSA (PCR) (Negative) Random Vancomycin mcg/ml COVID-19 Eval Order SARS-CoV-2 (PCR) (Negative) Hep Bs Antigen (Neg) Hep Bs Antibody Hep Bs Antibody, Quant (>or=10mIU/mL Immune) mIU/mL Blood Type Antibody Screen Antibody Identification Antibody ID Comment Coding Level of Care Code Critical Care 1st 30-74 mins Diagnoses Sepsis A41.9; R65.20; N17.9 Acute renal failure type: unspecified Sepsis acute organ dysfunction status: with acute organ dysfunction Sepsis type: sepsis due to unspecified organism Severe sepsis acute organ dysfunction type: acute renal failure Severe sepsis shock status: without septic shock Surgically created abdominal mucous fistula Z93.4 Acute kidney injury N17.9 Supratherapeutic INR R79.1 (1) Sepsis Acute renal failure type: unspecified Sepsis acute organ dysfunction status: with acute organ dysfunction Sepsis type: sepsis due to unspecified organism Severe sepsis acute organ dysfunction type: acute renal failure Severe sepsis shock status: without septic shock Qualified Code(s): A41.9 - Sepsis, unspecified organism; R65.20 - Severe sepsis without septic shock; N17.9 - Acute kidney failure, unspecified
--- NOTE | 2021-01-28 09:26 | Nephrology Progress Note ---
Date of Service January 28, 2021 Assessment & Plan (1) Acute kidney injury: * Lisinopril and Gabapentin have been stopped * Stop NaHCO3 gtt following HD this afternoon * Orders for HD have been placed in EMR. I have called HD RN and reviewed plan of care with her. Will plan for 4 hrs, 2K 2.5 Ca, HCO3 36, no UF * Urinalysis negative for casts * Blood and urine cultures are pending. Patient is on empiric Cefepime therapy * Asymptomatic funguria. Await urine culture results. Repeat urine microscopy in am to see if this has cleared following Velazquez placement * Renal US reveals mild bilateral hydronephrosis. Suspect KEY. May need Tamsulosin once BP stabilizes. Will ask Urology to assess for KEY * Repeat CBC, PRP in am (2) CKD (chronic kidney disease) stage 3, GFR 30-59 ml/min: * Baseline Cr 1.3 Admission and Anticipated Discharge Date Admission Date: January 27, 2021 Subjective Mr. Grajeda was seen & examined in the ICU this morning. He was dialyzed yesterday with no UF. Post dialysis he required Levophed support for a brief period of time. Mr. Grajeda awakens to voice. He is oriented to self/place and month. He denies fever, angina, dyspnea. Velazquez catheter remains in place draining clear yellow urine. Review of Systems Constitutional: no fever Eyes: no problem reported Ear, Nose, Mouth, Throat: no problem reported Respiratory: no dyspnea Cardiovascular: no chest pain Gastrointestinal: no abdominal pain, no nausea and no diarrhea/loose stools Integumentary: no rash Neurologic: no confusion Physical Exam Constitutional: not in distress Eyes: PERRL, conjunctivae normal, anicteric sclerae ENMT: external ear and nose normal, oropharynx normal Neck: trachea midline, no thyromegaly Respiratory: normal respiratory effort, lungs clear to auscultation Cardiovascular: Rate/Rhythm: regular rate and regular rhythm Extremities: + edema (trace LE edema) Gastrointestinal (Abdomen): normal bowel sounds, soft, nontender, no hepatosplenomegaly Musculoskeletal: Extremities: no cyanosis Skin: no rashes, warm and dry Neurologic: awake; not confused Results & Data ([facility]) Vital Signs (Past 12 Hours) Vital Signs Temp Pulse Pulse Resp BP BP Pulse Ox 01/28/21 06:31 85 16 81/41 L 97 01/28/21 06:01 82 22 104/49 L 98 01/28/21 05:31 82 18 91/59 L 97 01/28/21 05:01 82 17 100/57 L 96 01/28/21 04:00 88 23 122/92 94 01/28/21 03:01 82 22 96/64 L 01/28/21 02:01 89 19 95/62 L 95 01/28/21 01:31 87 18 115/74 97 01/28/21 01:00 88 17 105/61 97 01/28/21 00:31 81 21 86/68 L 96 01/28/21 00:15 90 01/28/21 00:01 94 H 20 118/65 97 01/28/21 00:00 90 01/27/21 23:31 90 21 116/76 97 01/27/21 22:56 84 17 119/73 98 01/27/21 22:46 37.2 C 81 83 17 127/65 142/76 H 99 01/27/21 22:31 83 20 107/78 96 01/27/21 22:15 89 24 112/93 99 01/27/21 22:00 83 119/68 01/27/21 21:56 90 25 H 142/75 H 99 01/27/21 21:46 80 19 116/78 99 01/27/21 21:45 83 129/69 01/27/21 21:30 79 137/76 01/27/21 21:26 81 20 137/76 99 Laboratory Tests 01/27/21 01/27/21 01/28/21 13:44 17:30 04:46 WBC 11.80 H Hgb 12.7 L Hct 39.0 L Plt Count 175 Sodium Potassium Chloride Carbon Dioxide BUN Creatinine Glucose Calcium Phosphorus Magnesium AST ALT Alkaline Phosphatase Ammonia 15.5 Urine Color Yellow Urine Appearance Cloudy A Urine pH 5.0 Ur Specific [place] 1.015 Urine Protein 1+ H Urine Glucose (UA) Negative Urine Blood 2+ H Urine Nitrite Negative Ur Leukocyte Esterase 3+ H Urine RBC (Auto) 0-4 Urine Bacteria (Auto) Negative Urine Yeast Budding A 01/28/21 04:46 WBC Hgb Hct Plt Count Sodium 138 Potassium 5.2 H Chloride 114 H Carbon Dioxide 16 L BUN 105 H Creatinine 4.06 H Glucose 153 H Calcium 8.1 L Phosphorus 6.5 H Magnesium 2.3 AST 12 L ALT 16 Alkaline Phosphatase 157 H Ammonia Urine Color Urine Appearance Urine pH Ur Specific [place] Urine Protein Urine Glucose (UA) Urine Blood Urine Nitrite Ur Leukocyte Esterase Urine RBC (Auto) Urine Bacteria (Auto) Urine Yeast PG Care Time/CCT Total # of Minutes Spent Total Time Spent with Patient: Total time spent is greater than 50% in coordination of care (as documented) at patient's floor/unit and/or counseling patient: Coding Level of Care Code 62178 Subseq Hosp Care Lvl 3 Diagnoses Acute kidney injury N17.9 CKD (chronic kidney disease) stage 3, GFR 30-59 ml/min N18.3
[2021-01-28] MEDS ORDERED: PHYTONADIONE 5 MG TAB PO ONE (10:00)
[2021-01-28] MEDS: CHOLECALCIFEROL 1,000 UNITS 25 MCG TAB PO SCH (10:29)
--- NOTE | 2021-01-28 10:30 | Pharmacy Report ---
Pharmacy Abx Dose Short Note - Date of Service January 28, 2021 - Assessment & Plan Assessment 50 year old M with PMH including paraplegia, CVA, CAD, obesity, bowel resection, chronic kidney disease admitted with change in mental status/confusion. Febrile with acute kidney injury and significant hyperkalemia. Patient underwent emergent dialysis. Started on empiric antibiotics Vancomycin and zosyn. Zosyn was switched to cefepime to avoid further kidney injury. Leukocytosis improving today. Plan for another HD session today. Blood and urine cultures pending. Patient does have remote history of ESBL proteus, antibiotics may need adjusted if worsening. Plan Vancomycin * Patient received 2250 mg Loading Dose yesterday, * Random level this morning 22 mcg/mL, estimate level will be ~15 after 4 hours of HD today * Will redose with 1000 mg x 1 today and get random level in AM to assist with further dosing (uncertain if patient will need dialysis again tomorrow) * Goal trough level 15-20 mcg/mL Pharmacy will continue to follow and will adjust dose/frequency as necessary. Thank you.
--- NOTE | 2021-01-28 10:53 | Urology Consultation ---
Date of Consultation January 28, 2021 Assessment & Plan (1) Bilateral hydronephrosis: (2) JUAREZ (acute kidney injury): 50 year-old male patient, with multiple comorbidities, admitted with presumed sepsis and JUAREZ. -Patient with history of urinary retention and JUAREZ occurring after recent colon surgery. -Plan of care reviewed with Dr. Mejia. -Patient afebrile. -Labs reviewed - white count and creatinine elevated. Undergoing inpatient hemodialysis. -Urine and blood cultures pending. -Imaging reviewed - BRAYDEN notable for right-sided nephrolithiasis and mild bilateral hydronephrosis. -Recommend maintaining pike catheter to allow bladder rest and decompression. -Continue with supportive care and antibiotic therapy. -No acute intervention indicated at this time. -Will continue to monitor while inpatient. History of Present Illness Reason for Consultation: Hydronephrosis Attending Physician: Sanjiv Sykes MD History of Present Illness 50-year-old male, with complicated past medical history including paraplegia status post CVA, history of urinary retention with UTIs, coronary artery disease, morbid obesity, recent bowel resection, and CKD that presented to the emergency room yesterday with changes in mental status. At home, he was noted to be hypotensive with low grade fevers. In the ER, he was found to be in significant JUAREZ, hyperkalemic, and also with supratherapeutic INR. Pike catheter was placed in the emergency room. Urology consulted for bilateral hydronephrosis. He is known to [facility], follows routinely with Dr. Cadet. Chart review: Afebrile. Wbc 11.80 (previously 17.37) Hgb 12.7 Creatinine today 4.06 (5.95 on admission) Urinalysis on admission +3 leukocytes, >30 wbc, 0-4 rbc, +1 bacteria, second u/a positive for yeast. Urine culture pending. Blood cultures pending. Patient currently on IV Cefepime and IV Vancomycin. Imaging - renal ultrasound IMPRESSION: 1. Mild bilateral hydronephrosis. 2. Right nephrolithiasis. 3. Decompressed urinary bladder with Pike catheter. Patient examined at bedside. He is very drowsy, however responds to verbal st imuli. He is alert to person, able to recall year of 2020. States he is in [place]. Prior to admission, he denies any dysuria or hematuria. Denies symptoms of retention prior to admission. Pike catheter intact and patent. He is tolerating pike well. He denies fevers or chills. Denies nausea or vomiting. Denies abdominal or flank pain. Being followed by nephrology, undergoing dialysis. Denies additional urologic concerns today. Allergies Allergy/AdvReac Type Severity Reaction Status Date / Time No Known Drug Allergies Allergy Unknown Verified 01/27/21 15:14 Home Medications Medication Instructions Recorded Confirmed Type atenolol 25 mg PO QAM 08/18/18 01/27/21 History insulin aspart U-100 [Novolog 0 unit SUBCUT TIDM 10/08/18 01/27/21 History Flexpen U-100 Insulin] Toujeo SoloStar U-300 Insulin 0 unit SUBCUT BID 01/14/19 01/27/21 History gabapentin 300 mg PO BID 01/14/19 01/27/21 History famotidine [Pepcid] 40 mg PO DAILY 05/27/19 01/27/21 History allopurinol 300 mg tablet 300 mg PO DAILY 01/23/20 01/27/21 History cholecalciferol (vitamin D3) 25 25 mcg PO DAILY 01/23/20 01/27/21 History mcg (1,000 unit) capsule clotrimazole-betamethasone 1 applic TOPICAL BID 05/01/20 01/27/21 History oxycodone [Roxicodone] 15 - 30 mg PO TID PRN 05/01/20 01/27/21 History warfarin [Coumadin] 0 mg PO UD 07/26/20 01/27/21 History lisinopril 5 mg PO DAILY 10/11/20 01/27/21 History Patient History Medical History Abdominal infection Acute dehydration Acute kidney injury Acute UTI JUAREZ (acute kidney injury) Arteriosclerosis of coronary artery Arthritis Benign essential hypertension Bilateral lower leg cellulitis Bleeding from colostomy Bleeding from wound Brain abscess CAD (coronary atherosclerotic disease) Cerebrovascular accident (CVA) Cirrhosis CKD (chronic kidney disease) stage 3, GFR 30-59 ml/min Coagulopathy Diabetic nephropathy Diastolic congestive heart failure DM type 2 (diabetes mellitus, type 2) E coli infection Edema of right lower extremity Elevated INR Elevated pulse rate Endocarditis Epididymitis Gout Gram positive bacterial infection H/O blood clots Heart trouble Hematuria Hematuria, gross Hepatitis C Hirschsprung's disease History of CVA (cerebrovascular accident) History of intravenous drug abuse Hyperlipidemia Hypoventilation Leg pain, bilateral Morbid obesity Narcotic poisoning Nephrolithiasis Nephrolithiasis, uric acid Nocturnal hypoxemia Paraplegia Pneumonia Pulmonary emboli Pulmonary hypertension Sepsis Severe sepsis Shortness of breath Sleep apnea, organic Stroke Supratherapeutic INR Transaminitis Type 2 diabetes mellitus, uncontrolled UTI (urinary tract infection) Valvular stenosis Wound infection Surgical History H/O aortic root repair H/O mitral valve repair Hx of CABG S/P cardiac cath S/P colostomy Surgically created abdominal mucous fistula Family History Father Cardiac disorder Hypertension Prostate cancer Diabetes Mother Hypertension Skin cancer Other Family history non-contributory Social History Smoking Status: Former smoker Tobacco Type: Cigarettes Second Hand Exposure: No; Hx Alcohol Use: No Hx Substance Use: No Preferred Language: French Communication Ability: Impaired Knuckler Required: No Beliefs That Will Affect Care: None marital status: Current Living Situation: Parent Current Living Situation Comment: home with parents and 18/hr /day caregivers current occupational status: unemployed 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 Feels Safe at Home: Yes Safety Concerns: Feels Safe At This Time Assistive Devices: Wheelchair Review of Systems Constitutional: as per Subjective / HPI; no fever and no chills Eyes: no problem reported Ear, Nose, Mouth, Throat: no problem reported Respiratory: no cough and no dyspnea Cardiovascular: no problem reported Gastrointestinal: as per Subjective / HPI Genitourinary: + as per Subjective / HPI Musculoskeletal: as per Subjective / HPI Neurologic: as per Subjective / HPI Psychiatric: as per Subjective / HPI Endocrine: + fatigue Physical Exam Constitutional: well developed; no acute distress Drowsy and chronically ill appearing. ENMT: Ears: no external ear abnormality Nose: no external nose abnormality Neck: normal visual inspection and trachea midline Respiratory: normal respiratory effort; no respiratory distress, no cough and no audible wheezes Cardiovascular: Extremities: + edema (Trace pitting edema to b/l lower extremities ); no calf tenderness Gastrointestinal (Abdomen): Inspection/Auscultation: abdomen normal to inspection; abdomen not distended Percussion/Palpation: abdomen soft; abdomen nontender and no guarding Ostomy to RLQ intact and functioning. Skin: No visible rashes, lesions, or wounds noted. Psychiatric: Orientation: oriented to place, oriented to time and cooperative Appears drowsy, responds to verbal stimuli. Alert to person, time, and knows he is in [place]. Genitourinary: no CVA tenderness Pike catheter intact and patent draining clear yellow urine. Results & Data ([facility]) Vital Signs (Past 12 Hours) Vital Signs Temp Pulse Resp BP Pulse Ox 01/28/21 10:31 87 19 95/59 L 98 01/28/21 10:02 77 13 80/42 L 97 01/28/21 09:37 80 16 70/49 L 96 01/28/21 09:00 77 15 87/52 L 98 01/28/21 08:45 82 16 102/59 L 97 01/28/21 08:31 86 15 74/48 L 97 01/28/21 08:01 78 14 99/52 L 99 01/28/21 08:00 36.6 C 01/28/21 07:30 79 15 91/49 L 98 01/28/21 07:03 83 15 78/40 L 96 01/28/21 07:01 79 17 74/30 L 95 01/28/21 06:31 85 16 81/41 L 97 01/28/21 06:01 82 22 104/49 L 98 01/28/21 05:31 82 18 91/59 L 97 01/28/21 05:01 82 17 100/57 L 96 01/28/21 04:00 88 23 122/92 94 01/28/21 03:01 82 22 96/64 L 01/28/21 02:01 89 19 95/62 L 95 01/28/21 01:31 87 18 115/74 97 01/28/21 01:00 88 17 105/61 97 01/28/21 00:31 81 21 86/68 L 96 01/28/21 00:15 90 01/28/21 00:01 94 H 20 118/65 97 01/28/21 00:00 90 01/27/21 23:31 90 21 116/76 97 01/27/21 22:56 84 17 119/73 98 PG Care Time/CCT Total # of Minutes Spent Total Time Spent with Patient: Total time spent is greater than 50% in coordination of care (as documented) at patient's floor/unit and/or counseling patient: Coding Level of Care Code 09441 Inpt Consult Level 4 Diagnoses Bilateral hydronephrosis N13.30 JUAREZ (acute kidney injury) N17.9
[2021-01-28] MEDS: ATENOLOL 25 MG TABLET PO SCH (10:54)
--- NOTE | 2021-01-28 11:44 | Hospitalist Progress Note ---
Date of Service January 28, 2021 Assessment & Plan (1) Sepsis: Septic shock - required Levophed intially and during dialysis today Suspected source UTI - appreciate urology evaluation and no intervention required at this time Await blood, urine cultures Empiric antibiotics with Vanco and Cefepime ordered by prototype fabricator (2) JUAREZ (acute kidney injury): Patient does have chronic renal sufficiency with acute component, creatinine is now 5.9 Potassium 7.9 on admission down to 5.2 this morning Appreciate nephrology/ICU management of dialysis and Bicarb drip (3) Supratherapeutic INR: Patient is on Coumadin, sepsis and dehydration may also be playing a role in coagulopathy with INR 4 -> 4.9 Will defer to prototype fabricator, continue to monitor. No anemia or evidence of active bleeding at this time No further chemical DVT prophylaxis necessary in this patient (4) DM type 2 (diabetes mellitus, type 2): Hyperglycemic, and insulin drip ordered by prototype fabricator HbA1C 8.1 shows uncontrolled at home Admission and Anticipated Discharge Date Admission Date: January 27, 2021 Subjective Awake and alert. Undergoing dialysis. He reports colostomy is working at the current time. He reports no urinary symptoms. No fevers or chills. Review of Systems Review of Systems: All systems reviewed & are unremarkable except as noted in HPI & below Physical Exam Constitutional: + morbidly obese and comfortable; no acute distress Neck: trachea midline, no thyromegaly Respiratory: normal respiratory effort Auscultation: + diminished lung sounds (Very limited secondary to body habitus); no crackles, no rales, no rhonchi and no wheezes Cardiovascular: Rate/Rhythm: regular rate and regular rhythm Heart Sounds: normal S1 and normal S2; no murmur Gastrointestinal (Abdomen): Percussion/Palpation: abdomen soft; abdomen nontender, no guarding, abdomen not rigid and no hepatosplenomegaly Colostomy bag with brown stool present. Skin: no rashes, warm and dry (No areas of cellulitis seen) Mild breakdown of skin of anterior laparotomy scar with no surrounding cellulitis. Neurologic: moves all extremities and awake; not confused Psychiatric: A+Ox3, euthymic affect Results & Data Results & Data ([facility]) Vital Signs (Past 12 Hours) Vital Signs Temp Pulse Resp BP Pulse Ox 01/28/21 10:31 87 19 95/59 L 98 01/28/21 10:02 77 13 80/42 L 97 01/28/21 09:37 80 16 70/49 L 96 01/28/21 09:00 77 15 87/52 L 98 01/28/21 08:45 82 16 102/59 L 97 01/28/21 08:31 86 15 74/48 L 97 01/28/21 08:01 78 14 99/52 L 99 01/28/21 08:00 36.6 C 01/28/21 07:30 79 15 91/49 L 98 01/28/21 07:03 83 15 78/40 L 96 01/28/21 07:01 79 17 74/30 L 95 01/28/21 06:31 85 16 81/41 L 97 01/28/21 06:01 82 22 104/49 L 98 01/28/21 05:31 82 18 91/59 L 97 01/28/21 05:01 82 17 100/57 L 96 01/28/21 04:00 88 23 122/92 94 01/28/21 03:01 82 22 96/64 L 01/28/21 02:01 89 19 95/62 L 95 01/28/21 01:31 87 18 115/74 97 01/28/21 01:00 88 17 105/61 97 01/28/21 00:31 81 21 86/68 L 96 01/28/21 00:15 90 01/28/21 00:01 94 H 20 118/65 97 01/28/21 00:00 90 PG Care Time/CCT Total # of Minutes Spent Total Time Spent with Patient: Total time spent is greater than 50% in coordination of care (as documented) at patient's floor/unit and/or counseling patient: Coding Level of Care Code 63042 Subseq Hosp Care Lvl 3 Diagnoses Sepsis A41.9 JUAREZ (acute kidney injury) N17.9 Supratherapeutic INR R79.1 DM type 2 (diabetes mellitus, type 2) E11.69; Z79.4 Diabetes mellitus complication status: with other specified complication Diabetes mellitus shelter insulin use: with intermediate teacher use (1) DM type 2 (diabetes mellitus, type 2) Diabetes mellitus complication status: with other specified complication Diabetes mellitus intermediate teacher insulin use: with shelter use Qualified Code(s): E11.69 - Type 2 diabetes mellitus with other specified complication; Z79.4 - [facility] (current) use of insulin
[2021-01-28] MEDS: NOREPINEPHRINE/D5W 8 MG/508 ML BAG IV SCH (12:33)
--- NOTE | 2021-01-28 13:37 | Pharmacy Report ---
Pharmacy Glycemic Short Note 2 - Date of Service January 28, 2021 - Glycemic Short BSG Results (Last 24 hours): 01/27/21 01/27/21 01/27/21 13:44 15:44 16:25 Glucose 152 H POC Glucose 239 H 225 H 01/27/21 01/27/21 01/27/21 18:12 21:41 23:11 Glucose 153 H POC Glucose 163 H 140 H 01/28/21 01/28/21 01/28/21 01:13 04:46 05:38 Glucose 153 H POC Glucose 157 H 142 H 01/28/21 01/28/21 08:55 11:36 Glucose POC Glucose 136 H 127 H OUTPATIENT ANTIDIABETIC REGIMEN: * Toujeo + Novolog; patient unable to report dosing at this time, Per [facility] list Toujeo 50 units BID (reported as taking 120 BID) and Novolog 120 units TID prior to meals- unable to verify * A1c 8.1% 01/28/21- patient with emergent dialysis yesterday ASSESSMENT: * Mr. Grajeda is a 50 yo male with PMH including paraplegia, CVA, CAD, obesity, bowel resection, CKD admitted with mental status change/confusion found to have an acute kidney injury and underwent emergent dialysis. * Patient briefly on insulin infusion for hyperkalemia prior to HD, BSG was aslo elevated at that time at 225 mg/dL. Insulin infusion was discontinued with start of dialysis and patient was transitioned to basal/bolus regimen. Patient is currently NPO and will also be receiving dialysis today. Lantus will be dosed per scale with ~30-60% reduction from 50 units. Patient had required 50 units BID on previous administrations. * Novolog will aslo be dosed similar to previous admission, correction factor weight based stress fo 3 and carb ratio weight based stress of 2 for now. Reassess with BSG trend and new diet orders PLAN FOR INPATIENT GLYCEMIC CONTROL: * Hold outpatient oral diabetes medications * Basal insulin * Lantus 20/35 units SQ BID * Bolus insulin * NovoLog per scale ACHS or Q6hrs while NPO * Goal Range: Low 110 mg/dL - High 140 mg/dL * Correction Factor: 15 mg/dL/unit * Nutritional / Prandial insulin per carb ratio of 1 unit per 6 grams CHO consumed
[2021-01-28 15:08] LABS: Appearance Urine Turbid (Clear); Bilirubin Urine Negative (Negative); Blood Urine 3+ (Negative); Color Urine Yellow; Glucose Urine UA Negative (Negative); Ketones Urine Negative (Negative); Leukocyte Esterase Urine 3+ (Negative); Nitrite Urine Negative (Negative); Protein Urine 2+ (Negative); Specific Gravity Urine 1.014 (1.000-1.030); Urobilinogen Urine Negative (Negative); WBC Urine Automated >30 /hpf (0-5)
[2021-01-28 15:34] LABS: Bacteria Urine Automated 1+ (Negative)
[2021-01-28] MEDS ORDERED: VANCOMYCIN HCL 1,000 MG in SODIUM CHLORIDE 0.9% 250 ML IV ONE (16:00)
[2021-01-28] MEDS ORDERED: CEFEPIME 1,000 MG in SYRINGE 0 ML IV SCH (18:00)
[2021-01-29] MEDS: INSULIN ASPART 100 UNITS/ML 3 ML PEN SC SCH ×6 (00:19→21:51)
[2021-01-29 05:46] LABS: Basophils # (auto) 0.03 K/uL (0-0.2); Basophils % (auto) 0.3 %; Eosinophils # (auto) 0.41 K/uL (0-0.5); Eosinophils % (auto) 4.6 %; Hematocrit (blood only) 37.1 % (42-52); Hemoglobin 12.3 g/dL (14.0-18.0); Immature Granulocytes # (auto) 0.03 K/uL (0.00-0.02); Immature Granulocytes % (auto) 0.3 %; Lymphocytes # (auto) 0.79 K/uL (1.2-3.4); Lymphocytes % (auto) 8.9 %; Mean Corpuscular Hemoglobin 28.9 pg (25-34); Mean Corpuscular Hgb Conc 33.2 g/dL (32-36); Mean Corpuscular Volume 87.1 fL (80-100); Mean Platelet Volume 10.1 fL (7.4-10.4); Monocytes # (auto) 0.55 K/uL (0.11-0.59); Monocytes % (auto) 6.2 %; Neutrophils # (auto) 7.11 K/uL (1.4-6.5); Neutrophils % (auto) 79.7 %; Platelet Count 136 K/uL (130-400); RDW Coefficient of Variation 16.2 % (11.5-14.5); RDW Standard Deviation 51.8 fL (36.4-46.3); Red Blood Count 4.26 M/uL (4.7-6.1); White Blood Count 8.92 K/uL (4.8-10.8)
[2021-01-29 06:09] LABS: INR 2.7 (0.9-1.1); Partial Thromboplastin Ratio 1.9; Prothrombin Time 25.4 Seconds (9.0-12.0)
--- NOTE | 2021-01-29 06:10 | Electrocardiogram Report ---
Test Reason : Blood Pressure : / mmHG Vent. Rate : 086 BPM Atrial Rate : 086 BPM P-R Int : 298 ms QRS Dur : 092 ms QT Int : 370 ms P-R-T Axes : 049 026 071 degrees QTc Int : 442 ms Poor data quality, interpretation may be adversely affected Sinus rhythm with 1st degree A-V block Otherwise normal ECG When compared with ECG of 01-NOV-2020 15:40, No significant change was found Confirmed by Hugo Hanson ([id number]) on 01/29/2021 6:10:09 AM Referred By: REFERRED SELF Confirmed By:Hugo Hanson
[2021-01-29 06:40] LABS: Partial Thromboplastin Time 49.8 Seconds (21.0-31.0)
[2021-01-29 06:48] LABS: Calcium 8.3 mg/dl (8.5-10.1); Creatinine Clr Calc Pharmacy 53.7 ml/min; Est GFR (African American) 39.6 ml/min; Est GFR (Non-African American) 34.2 ml/min; Magnesium 2.2 mg/dl (1.8-2.4); Phosphorus 4.5 mg/dl (2.5-4.9); Potassium 3.9 mmol/L (3.5-5.1)
[2021-01-29] MEDS: NOREPINEPHRINE/D5W 8 MG/508 ML BAG IV SCH (09:21)
--- NOTE | 2021-01-29 09:24 | Urology Progress Note ---
Date of Service January 29, 2021 Assessment & Plan (1) Bilateral hydronephrosis: (2) JUAREZ (acute kidney injury): 50 year-old male patient, with multiple comorbidities, admitted with presumed sepsis and JUAREZ. -Urology consulted for mild bilateral hydronephrosis. -Patient afebrile. -Labs reviewed - white count and creatinine improving. Undergoing inpatient hemodialysis. -Preliminary blood cultures negative after 24 hours. -Urine culture with pinpoint growth, re-incubating, await final. -Imaging reviewed - BRAYDEN notable for right-sided nephrolithiasis and mild bilateral hydronephrosis. -Recommend maintaining pike catheter to allow bladder rest and decompression. -Recommend repeat BRAYDEN in 1-2 weeks to assess for resolution of hydronephrosis. -Continue with supportive care and antibiotic therapy. -No acute intervention indicated at this time. -Will arrange outpatient follow-up with urology service for continued care. Thank you for allowing us to participate in the acute care of Mr. Grajeda. Please reconsult us with additional questions, concerns or changes in patient status. Admission and Anticipated Discharge Date Admission Date: January 27, 2021 Subjective Patient examined at bedside, he is more alert and awake today. Currently denies flank or abdominal pain. Tolerating pike catheter, patent and draining clear yellow urine. Denies dysuria or hematuria. Denies fevers or chills. Reports he is thirsty, remains NPO. Did undergo hemodialysis yesterday. Chart review: Afebrile Wbc 8.92 Hgb 12.3 Creatinine 2.20 (previously 4.06) Preliminary blood cultures no growth after 24 hours. Preliminary urine culture with pin-point growth, re-incubating. Patient currently on IV Cefepime. Denies additional urologic concerns today. Review of Systems Constitutional: as per Subjective / HPI; no fever and no chills Gastrointestinal: as per Subjective / HPI; no nausea and no vomiting Genitourinary: + as per Subjective / HPI Physical Exam Constitutional: well developed, well nourished and comfortable; no acute distress Respiratory: normal respiratory effort and able to speak in complete sentences; no respiratory distress and no audible wheezes Cardiovascular: Extremities: + edema (Trace pitting edema to bilateral lower extremities) Gastrointestinal (Abdomen): Inspection/Auscultation: abdomen normal to inspection; abdomen not distended Percussion/Palpation: abdomen soft; abdomen nontender and no guarding Colostomy to RLQ intact. Psychiatric: Orientation: alert, oriented to person, oriented to place and cooperative Affect: euthymic affect Genitourinary: no CVA tenderness Pike catheter intact, draining clear yellow urine. Results & Data ([facility]) Vital Signs (Past 12 Hours) Vital Signs Temp Pulse Resp BP Pulse Ox 01/29/21 06:00 85 14 109/65 96 01/29/21 05:01 86 15 91/51 L 93 01/29/21 04:01 36.8 C 75 16 93/57 L 95 01/29/21 03:31 88 16 98/53 L 91 01/29/21 02:30 93 H 16 112/64 93 01/29/21 02:00 97 H 15 90/52 L 94 01/29/21 01:01 91 H 16 94/56 L 96 01/29/21 00:30 37.3 C 81 17 106/73 91 01/28/21 23:30 88 15 83/57 L 96 01/28/21 23:01 86 15 82/62 L 97 01/28/21 22:00 82 15 110/63 99 PG Care Time/CCT Total # of Minutes Spent Total Time Spent with Patient: Total time spent is greater than 50% in coordination of care (as documented) at patient's floor/unit and/or counseling patient: Coding Level of Care Code 61849 Subseq Hosp Care Lvl 2 Diagnoses Bilateral hydronephrosis N13.30 JUAREZ (acute kidney injury) N17.9
--- NOTE | 2021-01-29 10:05 | Nephrology Progress Note ---
Date of Service January 29, 2021 Assessment & Plan (1) Acute kidney injury: * Renal US revealed mild bilateral hydronephrosis. Suspect KEY. Creatinine trending down following HD. Patient was dialyzed 01/26, 01/27, and 01/28. He has a pike catheter in place and remains nonoliguric. * Lisinopril and Gabapentin have been stopped * Blood and urine cultures are NGTD. Consider stopping Cefepime * Asymptomatic funguria. Will change pike catheter * No acute indication for HD this morning. Repeat CBC, PRP in am, monitor UO (2) CKD (chronic kidney disease) stage 3, GFR 30-59 ml/min: * Baseline Cr 1.3 Admission and Anticipated Discharge Date Admission Date: January 27, 2021 Subjective Mr. Grajeda was seen & examined in the ICU this morning. He was dialyzed yesterday with no UF. He is oriented to self/place and month this morning. He denies fever, angina, dyspnea. Pike catheter remains in place draining clear yellow urine. Review of Systems Constitutional: no fever Eyes: no problem reported Ear, Nose, Mouth, Throat: no problem reported Respiratory: no dyspnea Cardiovascular: no chest pain Gastrointestinal: no abdominal pain, no nausea and no diarrhea/loose stools Integumentary: no rash Neurologic: no confusion Physical Exam Constitutional: not in distress Eyes: PERRL, conjunctivae normal, anicteric sclerae ENMT: external ear and nose normal, oropharynx normal Neck: trachea midline, no thyromegaly Respiratory: normal respiratory effort, lungs clear to auscultation Cardiovascular: Rate/Rhythm: regular rate and regular rhythm Extremities: + edema (trace LE edema) Gastrointestinal (Abdomen): normal bowel sounds, soft, nontender, no hepatosplenomegaly Musculoskeletal: Extremities: no cyanosis Skin: no rashes, warm and dry Neurologic: awake; not confused Results & Data ([facility]) Vital Signs (Past 12 Hours) Vital Signs Temp Pulse Resp BP Pulse Ox 01/29/21 06:00 85 14 109/65 96 01/29/21 05:01 86 15 91/51 L 93 01/29/21 04:01 36.8 C 75 16 93/57 L 95 01/29/21 03:31 88 16 98/53 L 91 01/29/21 02:30 93 H 16 112/64 93 01/29/21 02:00 97 H 15 90/52 L 94 01/29/21 01:01 91 H 16 94/56 L 96 01/29/21 00:30 37.3 C 81 17 106/73 91 01/28/21 23:30 88 15 83/57 L 96 01/28/21 23:01 86 15 82/62 L 97 01/28/21 22:00 82 15 110/63 99 Laboratory Tests 01/27/21 01/28/21 01/29/21 13:44 04:46 05:21 WBC 8.92 Hgb 12.3 L Hct 37.1 L Plt Count 136 Sodium Potassium Chloride Carbon Dioxide BUN Creatinine Calcium Phosphorus Magnesium Ammonia 15.5 Albumin 2.9 L 01/29/21 05:21 WBC Hgb Hct Plt Count Sodium 140 Potassium 3.9 D Chloride 112 H Carbon Dioxide 21 BUN 68 H Creatinine 2.20 H D Calcium 8.3 L Phosphorus 4.5 D Magnesium 2.2 Ammonia Albumin PG Care Time/CCT Total # of Minutes Spent Total Time Spent with Patient: Total time spent is greater than 50% in coordination of care (as documented) at patient's floor/unit and/or counseling patient: Coding Level of Care Code 99268 Subseq Hosp Care Lvl 3 Diagnoses Acute kidney injury N17.9 CKD (chronic kidney disease) stage 3, GFR 30-59 ml/min N18.3
--- NOTE | 2021-01-29 10:36 | Hospitalist Progress Note ---
Date of Service January 29, 2021 Assessment & Plan (1) JUAREZ (acute kidney injury): Secondary to bladder outlet obstruction with mild bilateral hydronephrosis. Patient dialyzed 01/27 and 01/28. No plans for dialysis today. Lisinopril and gabapentin discontinued. Appreciate nephrology and urology management - Repeat Renal US in 1-2 weeks to assess for resolution of hydronephrosis. (2) Sepsis: Sepsis ruled out with negative blood and urine cultures. Discontinued vancomycin and cefepime. (3) Supratherapeutic INR: INR 2.7 (4) DM type 2 (diabetes mellitus, type 2): HbA1C 8.1 shows uncontrolled at home Appreciate pharmacy glycemic control. (5) Coronary artery disease: Chronic. Stable. Patient with multiple stents in the past, s/p CABG x 1V LAD. 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 -Holding atenolol and lisinopril due to JUAREZ and hypotension -Unknown why patient is not on statin. (6) Gout: Chronic. No acute flap. Holding allopurinol while in JUAREZ. (7) HTN (hypertension): Blood pressure adequate at present. Off Levophed, atenolol and lisinopril. (8) History of CVA (cerebrovascular accident): Patient suffered a CVA in setting of cardiac surgery in 2013, ?due to septic emboli in setting of infectious endocarditis. Patient paraplegic. (9) DVT prophylaxis: History of DVT. Continue warfarin 2.5 mg p.o. daily. INR daily. (10) Paraplegia: Admission and Anticipated Discharge Date Admission Date: January 27, 2021 Subjective Patient alert and orientated. Velazquez cath in place. No nausea, vomiting, abdominal pain, chest pain, shortness of breath. Colostomy working. Patient previously on tamsulosin but stopped this as he felt to increase his incontinence. Velazquez catheter placed for urine retention after bowel surgery with JUAREZ but subsequently passed voiding trial. Review of Systems Review of Systems: All systems reviewed & are unremarkable except as noted in HPI & below Physical Exam Constitutional: + morbidly obese and comfortable; no acute distress Eyes: + anicteric sclerae; normal pupil size Respiratory: normal respiratory effort Auscultation: + diminished lung sounds (throughout); no crackles, no rales, no rhonchi and no wheezes Cardiovascular: Rate/Rhythm: regular rate and regular rhythm Heart Sounds: normal S1 and normal S2; no murmur Extremities: normal capillary refill and + pedal edema; no calf tenderness Gastrointestinal (Abdomen): Inspection/Auscultation: normal bowel sounds; + abdomen abnormal to inspection (obese) Percussion/Palpation: abdomen soft; abdomen nontender, no guarding and abdomen not rigid Colostomy present with brown stool Skin: no rashes, warm and dry (No areas of cellulitis seen) Neurologic: awake; not confused Psychiatric: A+Ox3, euthymic affect Results & Data Results & Data ([facility]) Vital Signs (Past 12 Hours) Vital Signs Temp Pulse Resp BP Pulse Ox 01/29/21 06:00 85 14 109/65 96 01/29/21 05:01 86 15 91/51 L 93 01/29/21 04:01 36.8 C 75 16 93/57 L 95 01/29/21 03:31 88 16 98/53 L 91 01/29/21 02:30 93 H 16 112/64 93 01/29/21 02:00 97 H 15 90/52 L 94 01/29/21 01:01 91 H 16 94/56 L 96 01/29/21 00:30 37.3 C 81 17 106/73 91 01/28/21 23:30 88 15 83/57 L 96 01/28/21 23:01 86 15 82/62 L 97 PG Care Time/CCT Total # of Minutes Spent Total Time Spent with Patient: Total time spent is greater than 50% in coordination of care (as documented) at patient's floor/unit and/or counseling patient: Coding Level of Care Code 62197 Subseq Hosp Care Lvl 2 Diagnoses JUAREZ (acute kidney injury) N17.9 Sepsis A41.9 Supratherapeutic INR R79.1 DM type 2 (diabetes mellitus, type 2) E11.69; Z79.4 Diabetes mellitus complication status: with other specified complication Diabetes mellitus vermin exterminator insulin use: with vermin exterminator use Coronary artery disease I25.10 Coronary Disease-Associated Artery/Lesion type: [place] artery [place] vs. transplanted heart: [place] heart Associated angina: without angina Gout M10.9 Gout site: unspecified site Gout etiology: unspecified cause Chronicity: unspecified HTN (hypertension) I10 Hypertension type: essential hypertension History of CVA (cerebrovascular accident) Z86.73 DVT prophylaxis Z29.9 Paraplegia G82.20 (1) DM type 2 (diabetes mellitus, type 2) Diabetes mellitus complication status: with other specified complication Diabetes mellitus vermin exterminator insulin use: with nursing home use Qualified Code(s): E11.69 - Type 2 diabetes mellitus with other specified complication; Z79.4 - [facility] (current) use of insulin (2) Coronary artery disease Coronary Disease-Associated Artery/Lesion type: [place] artery [place] vs. transplanted heart: [place] heart Associated angina: without angina Qualified Code(s): I25.10 - Atherosclerotic heart disease of [place] coronary artery without angina pectoris (3) Gout Gout site: unspecified site Gout etiology: unspecified cause Chronicity: unspecified Qualified Code(s): M10.9 - Gout, unspecified (4) HTN (hypertension) Hypertension type: essential hypertension Qualified Code(s): I10 - Essential (primary) hypertension
--- NOTE | 2021-01-29 11:36 | Critical Care Progress Note ---
Date of Service January 29, 2021 Assessment & Plan (1) Sepsis: Reason Critically Ill: 50-year-old male with hyperkalemia and sepsis PLAN: Neuro: Acute encephalopathy: Improving -CT scan of head reviewed Resp: Probable obstructive sleep apnea History tracheostomy -Continue pulse oximetry CV: History endocarditis Hypotension -Responded to fluid administration in the emergency department Fluids/Renal: Acute kidney injury: Improved Hyperkalemia: Improved -Hemodialysis catheter placed -Anticipate second round of dialysis today ID: Sepsis unclear source at this time -Blood cultures ordered, urine culture ordered -Vancomycin and Zosyn GI/Nutrition: LFTs within normal limits alkaline phosphatase mildly elevated at 200 history of being previously elevated Hyperlipidemia -Ammonia within normal limits Heme: Leukocytosis Systemic anticoagulation secondary to venous thromboembolism -Supratherapeutic INR -2.5 mill milligrams oral vitamin K DVT prophylaxis: Chemical prophylaxis contraindicated mechanical prophylaxis contraindicated given elevated INR Endocrine: ICU hyperglycemia protocol -Insulin drip had been discontinued after dialysis Vascular access: Peripheral IV, hemodialysis catheter with central venous access Code Status: Full code Disposition: ICU (2) Surgically created abdominal mucous fistula: (3) Acute kidney injury: (4) Supratherapeutic INR: Admission and Anticipated Discharge Date Admission Date: January 27, 2021 Supervising Physician Co-Signing Physician Notes Patient was discussed on multidisciplinary rounds I have personally spent 35 minutes of critical care time in the direct man agement of this patient. This is a life/limb threatening event. This includes time spent evaluating patient, direct bedside care, chart review, placing orders, interpretation of diagnostic studies, discussion with consultants, patient, and/or family members regarding treatment decisions, as well as other required patient management activities. This time is exclusive of all separately billable procedures, and teaching time and separate from and in addition to any other critical care service time. Physical Exam Physical Exam: General: Alert, nontoxic. Skin: Warm, dry, Head: Atraumatic Ears, nose, mouth and throat: airway patent Cardiovascular: Normal peripheral perfusion Respiratory: no respiratory distress Gastrointestinal: Non distended, recent surgical scar with still healing area that had been packed with gauze Musculoskeletal: Contractures of right upper extremity Results & Data Results & Data ([facility]) Vital Signs (Past 12 Hours) Vital Signs Temp Pulse Resp BP Pulse Ox 01/29/21 06:00 85 14 109/65 96 01/29/21 05:01 86 15 91/51 L 93 01/29/21 04:01 36.8 C 75 16 93/57 L 95 01/29/21 03:31 88 16 98/53 L 91 01/29/21 02:30 93 H 16 112/64 93 01/29/21 02:00 97 H 15 90/52 L 94 01/29/21 01:01 91 H 16 94/56 L 96 01/29/21 00:30 37.3 C 81 17 106/73 91 Coding Diagnoses Sepsis A41.9; R65.20; N17.9 Sepsis type: sepsis due to unspecified organism Sepsis acute organ dysfunction status: with acute organ dysfunction Severe sepsis acute organ dysfunction type: acute renal failure Acute renal failure type: unspecified Severe sepsis shock status: without septic shock Surgically created abdominal mucous fistula Z93.4 Acute kidney injury N17.9 Supratherapeutic INR R79.1 (1) Sepsis Sepsis type: sepsis due to unspecified organism Sepsis acute organ dysfunction status: with acute organ dysfunction Severe sepsis acute organ dysfunction type: acute renal failure Acute renal failure type: unspecified Severe sepsis shock status: without septic shock Qualified Code(s): A41.9 - Sepsis, unspecified organism; R65.20 - Severe sepsis without septic shock; N17.9 - Acute kidney failure, unspecified
--- NOTE | 2021-01-29 11:57 | Pharmacy Report ---
Pharmacy Glycemic Short Note 2 - Date of Service January 29, 2021 - Glycemic Short BSG Results (Last 24 hours): 01/28/21 01/28/21 01/29/21 16:33 20:26 00:14 Glucose POC Glucose 108 H 104 H 148 H 01/29/21 01/29/21 01/29/21 03:37 05:21 08:52 Glucose 92 POC Glucose 101 H 70 01/29/21 01/29/21 08:53 11:38 Glucose POC Glucose 77 79 OUTPATIENT ANTIDIABETIC REGIMEN: * Toujeo + Novolog; patient unable to report dosing at this time, Per [employer] list Toujeo 50 units BID (reported as taking 120 BID) and Novolog 120 units TID prior to meals- unable to verify * A1c 8.1% 01/28/21- patient with emergent dialysis yesterday ASSESSMENT: 01/29 * BSGs trended down over the course of the day yesterday * 42 units SQ administered over the last 24 hrs while NPO * Fasting BSG 70's this AM - will hold AM dose of basal, will begin scaled dosing of insulin this evening. Suspect basal needs will increase greatly with improved diet based upon prior admit data. * Diet has been advanced at this time * ABX will d/c this afternoon, discussed with Hospitalist * Norepi titrated off. Patient to be downgraded from ICU level of care 01/28 * Mr. Grajeda is a 50 yo male with PMH including paraplegia, CVA, CAD, obesity, bowel resection, CKD admitted with mental status change/confusion found to have an acute kidney injury and underwent emergent dialysis. * Patient briefly on insulin infusion for hyperkalemia prior to HD, BSG was aslo elevated at that time at 225 mg/dL. Insulin infusion was discontinued with start of dialysis and patient was transitioned to basal/bolus regimen. Patient is currently NPO and will also be receiving dialysis today. Lantus will be dosed per scale with ~30-60% reduction from 50 units. Patient had required 50 units BID on previous administrations. * Novolog will aslo be dosed similar to previous admission, correction factor weight based stress fo 3 and carb ratio weight based stress of 2 for now. Reassess with BSG trend and new diet orders PLAN FOR INPATIENT GLYCEMIC CONTROL: * Basal insulin * Lantus: hold AM dose today, resume BID dosing this evening. 0 units if BSG less than 110, 20 units if BSG 110-200, 30 units if BSG above 200 * Bolus insulin * NovoLog per scale ACHS or Q6hrs while NPO * Goal Range: Low 110 mg/dL - High 140 mg/dL * Correction Factor: 15 mg/dL/unit * Nutritional / Prandial insulin per carb ratio of 1 unit per 6 grams CHO consumed
[2021-01-29] MEDS: ATENOLOL 25 MG TABLET PO SCH (12:21)
[2021-01-29] MEDS: CHOLECALCIFEROL 1,000 UNITS 25 MCG TAB PO SCH (12:24)
[2021-01-29] MEDS: FAMOTIDINE 20 MG TAB PO SCH (12:40)
[2021-01-29] MEDS: CLOTRIMAZOLE/BETAMETHASONE CR 15 GM TUBE EXT SCH ×2 (12:45→21:52)
[2021-01-29 16:58] LABS: Appearance Urine Turbid (Clear); Bacteria Urine Automated Negative (Negative); Bilirubin Urine Negative (Negative); Blood Urine 3+ (Negative); Color Urine Yellow; Glucose Urine UA Negative (Negative); Ketones Urine Trace (Negative); Leukocyte Esterase Urine 3+ (Negative); Nitrite Urine Negative (Negative); Protein Urine 1+ (Negative); Specific Gravity Urine 1.014 (1.000-1.030); Urobilinogen Urine Negative (Negative); WBC Urine Automated >30 /hpf (0-5)
[2021-01-29] MEDS ORDERED: WARFARIN SOD 2.5 MG TAB PO SCH (19:20)
[2021-01-29] MEDS: INSULIN GLARGINE SOLOSTAR 100 UNITS/ML 3 ML PEN SC SCH (21:53)
[2021-01-30] MEDS: INSULIN ASPART 100 UNITS/ML 3 ML PEN SC SCH ×5 (04:48→17:05)
[2021-01-30 06:35] LABS: Basophils # (auto) 0.04 K/uL (0-0.2); Basophils % (auto) 0.4 %; Eosinophils # (auto) 0.39 K/uL (0-0.5); Eosinophils % (auto) 3.9 %; Hematocrit (blood only) 36.5 % (42-52); Immature Granulocytes # (auto) 0.02 K/uL (0.00-0.02); Immature Granulocytes % (auto) 0.2 %; Lymphocytes # (auto) 1.18 K/uL (1.2-3.4); Lymphocytes % (auto) 11.9 %; Mean Corpuscular Hemoglobin 28.7 pg (25-34); Mean Corpuscular Hgb Conc 32.9 g/dL (32-36); Mean Corpuscular Volume 87.3 fL (80-100); Mean Platelet Volume 9.4 fL (7.4-10.4); Monocytes # (auto) 0.66 K/uL (0.11-0.59); Monocytes % (auto) 6.6 %; Neutrophils # (auto) 7.64 K/uL (1.4-6.5); Platelet Count 133 K/uL (130-400); RDW Coefficient of Variation 16.1 % (11.5-14.5); RDW Standard Deviation 51.5 fL (36.4-46.3); Red Blood Count 4.18 M/uL (4.7-6.1); White Blood Count 9.93 K/uL (4.8-10.8)
[2021-01-30 06:53] LABS: INR 2.1 (0.9-1.1); Partial Thromboplastin Ratio 1.6; Partial Thromboplastin Time 42.6 Seconds (21.0-31.0); Prothrombin Time 20.3 Seconds (9.0-12.0)
[2021-01-30 07:02] LABS: BUN Creatinine Ratio 32.1 (10-20); Calcium 8.8 mg/dl (8.5-10.1); Creatinine Clr Calc Pharmacy 67.6 ml/min; Est GFR (African American) 52.2 ml/min; Magnesium 1.9 mg/dl (1.8-2.4); Potassium 3.9 mmol/L (3.5-5.1)
[2021-01-30 07:11] LABS: Phosphorus 3.6 mg/dl (2.5-4.9)
[2021-01-30] MEDS: FAMOTIDINE 20 MG TAB PO SCH (08:31)
[2021-01-30] MEDS: CHOLECALCIFEROL 1,000 UNITS 25 MCG TAB PO SCH (08:31)
[2021-01-30] MEDS: INSULIN GLARGINE SOLOSTAR 100 UNITS/ML 3 ML PEN SC SCH (08:33)
[2021-01-30] MEDS: CLOTRIMAZOLE/BETAMETHASONE CR 15 GM TUBE EXT SCH (08:34)
[2021-01-30] MEDS ORDERED: allopurinoL 300 MG TAB PO SCH (10:30)
[2021-01-30] MEDS ORDERED: TAMSULOSIN HCL 0.4 MG CAP PO SCH (10:30)
[2021-01-30] MEDS ORDERED: ATENOLOL 25 MG TABLET PO SCH (10:30)
--- NOTE | 2021-01-30 10:37 | Nephrology Progress Note ---
Date of Service January 30, 2021 Assessment & Plan (1) JUAREZ (acute kidney injury): 50-year-old male with PHM of stage 3a CKD, b/l cr 1.3 2/2 DM, paraplegia status post CVA, CAD,morbid obesity, bowel resection admitted with acute mental status changes, confusion, AK I and hyperkalemia with potassium 7.9 this is eating emergent dialysis via temporary dialysis catheter. Last dialysis was on 01/28/2021. Renal function has been improving creatinine down to 1.8 off of dialysis for 2 days, has been having decent urine output. Has Pike catheter in place as recommendation from Urology for bilateral hydronephrosis probably secondary to bladder outlet obstruction. Overall feeling better. --no need for HD anymore, renal function improving, will remove dialysis catheter. --Keep pike in as per urology. --continue to monitor renal function while in patient Will follow (2) Acute hyperkalemia: (3) Bilateral hydronephrosis: (4) HTN (hypertension): (5) Chronic kidney disease, stage 3a: Admission and Anticipated Discharge Date Admission Date: January 27, 2021 Jefferson Garrido was seen and evaluated in his room this morning. Spoke with his father over telephone and gave of date. Overall he has been feeling better, denies shortness of breath or chest pain. Has been having decent urine output. Renal function continues to improve creatinine down to 1.8. Volume status acceptable, blood pressure mildly elevated. Review of Systems Review of Systems: All systems reviewed & are unremarkable except as noted in Subjective Physical Exam Constitutional: + morbidly obese; no acute distress Respiratory: normal respiratory effort, lungs clear to auscultation Cardiovascular: RRR, no murmur, no edema Neurologic: + focal motor deficit and awake; not confused Paraplegic Psychiatric: A+Ox3, euthymic affect Results & Data ([facility]) Vital Signs (Past 12 Hours) Vital Signs Temp Pulse Pulse Resp BP Pulse Ox 01/30/21 07:16 36.6 C 90 22 159/89 H 96 01/30/21 04:49 36.8 C 86 18 141/83 H 94 01/30/21 00:00 94 H 01/29/21 23:13 36.9 C 93 H 18 142/90 H 96 PG Care Time/CCT Total # of Minutes Spent Total Time Spent with Patient: Total time spent is greater than 50% in coordination of care (as documented) at patient's floor/unit and/or counseling patient: Coding Level of Care Code 94040 Subseq Hosp Care Lvl 3 Diagnoses JUAREZ (acute kidney injury) N17.9 Acute hyperkalemia E87.5 Bilateral hydronephrosis N13.30 HTN (hypertension) I10 Hypertension type: essential hypertension Chronic kidney disease, stage 3a N18.31 (1) HTN (hypertension) Hypertension type: essential hypertension Qualified Code(s): I10 - Essential (primary) hypertension
--- NOTE | 2021-01-30 11:35 | Pharmacy Report ---
Pharmacy Glycemic Short Note 2 - Date of Service January 30, 2021 - Glycemic Short BSG Results (Last 24 hours): 01/29/21 01/29/21 01/29/21 11:38 16:22 20:09 Glucose POC Glucose 79 146 H 179 H 01/30/21 01/30/21 01/30/21 00:10 06:21 07:17 Glucose 111 H POC Glucose 129 H 108 H 01/30/21 11:26 Glucose POC Glucose 141 H OUTPATIENT ANTIDIABETIC REGIMEN: * Toujeo + Novolog; patient unable to report dosing at this time, Per [employer] list Toujeo 50 units BID (reported as taking 120 BID) and Novolog 120 units TID prior to meals- unable to verify * A1c 8.1% 01/28/21- patient with emergent dialysis yesterday ASSESSMENT: 01/30 * Pt has received 26 units of insulin over the past 24hrs * 20 units of basal with Lantus * 6 units of bolus with NovoLog * BSGs [phone] mg/dl * NPO yesterday therefore bolus insulin dosing was low * AM basal insulin held yesterday morning for below goal range BSG and NPO status. Concern for rebound hyperglycemia this afternoon with basal deficiency. Likely basal needs ~ 30 units/day 01/29 * BSGs trended down over the course of the day yesterday * 42 units SQ administered over the last 24 hrs while NPO * Fasting BSG 70's this AM - will hold AM dose of basal, will begin scaled dosing of insulin this evening. Suspect basal needs will increase greatly with improved diet based upon prior admit data. * Diet has been advanced at this time * ABX will d/c this afternoon, discussed with Hospitalist * Norepi titrated off. Patient to be downgraded from ICU level of care 01/28 * Mr. Grajeda is a 50 yo male with PMH including paraplegia, CVA, CAD, obesity, bowel resection, CKD admitted with mental status change/confusion found to have an acute kidney injury and underwent emergent dialysis. * Patient briefly on insulin infusion for hyperkalemia prior to HD, BSG was aslo elevated at that time at 225 mg/dL. Insulin infusion was discontinued with start of dialysis and patient was transitioned to basal/bolus regimen. Patient is currently NPO and will also be receiving dialysis today. Lantus will be dosed per scale with ~30-60% reduction from 50 units. Patient had required 50 units BID on previous administrations. * Novolog will aslo be dosed similar to previous admission, correction factor weight based stress fo 3 and carb ratio weight based stress of 2 for now. Reassess with BSG trend and new diet orders PLAN FOR INPATIENT GLYCEMIC CONTROL: * Basal insulin * Lantus: 15 units SQ BID * Bolus insulin * NovoLog per scale ACHS or Q6hrs while NPO * Goal Range: Low 110 mg/dL - High 140 mg/dL * Correction Factor: 15 mg/dL/unit * Nutritional / Prandial insulin per carb ratio of 1 unit per 6 grams CHO consumed
[2021-01-30] MEDS ORDERED: WARFARIN SOD 0.5 MG TAB PO SCH (16:00)
[2021-01-30] MEDS ORDERED: WARFARIN SOD 1 MG TAB PO SCH ×2 (16:00→21:00)
--- NOTE | 2021-01-30 16:48 | Discharge Summary ---
Date of Service January 30, 2021 Admission HPI Per Admitting Provider This is a 50-year-old male with complicated past medical history including paraplegia status post CVA, coronary artery disease, morbid obesity, recent bowel resection, CKD that presents with confusion and change in mental status. Patient is a somewhat limited historian, father is at bedside who is able to provide some history. Patient is apparently been having some lung problems over the past few days. He was having some intermittent hypotension with blood pressures as low as 76/40. This apparently was self-limited and improved. Patient is also having some low- grade temps to 100.1 and diminished appetite. He did not contact his physician until earlier today when he became much more confused. Patient was brought to the emergency room and was found to be in significant JUAREZ. He was also found to be very hyperkalemic. In addition, the patient is on Coumadin and was found to have significantly supratherapeutic INR. Patient is now to be admitted to the ICU with a consult to critical care. Nephrology is aware of his severe renal dysfunction and there are plans for emergent hemodialysis this evening. Admission Exam Per Admitting Provider Constitutional: + morbidly obese and comfortable; no acute distress Neck: trachea midline, no thyromegaly Respiratory: normal respiratory effort Auscultation: + diminished lung sounds (Very limited secondary to body habitus); no crackles, no rales, no rhonchi and no wheezes Cardiovascular: Rate/Rhythm: regular rate and regular rhythm Heart Sounds: normal S1 and normal S2; no murmur Gastrointestinal (Abdomen): Inspection/Auscultation: abdomen normal to inspection Percussion/Palpation: abdomen soft; abdomen nontender, no guarding, abdomen not rigid and no hepatosplenomegaly Skin: no rashes, warm and dry Psychiatric: Awake, answer some questions appropriately but is somewhat confused Principal Diagnosis Acute kidney injury Bladder outlet obstruction Discharge Exam Constitutional + morbidly obese and comfortable; no acute distress Eyes + anicteric sclerae; normal pupil size Neck trachea midline, no thyromegaly Respiratory normal respiratory effort Auscultation: + diminished lung sounds (throughout); no crackles, no rales, no rhonchi and no wheezes Cardiovascular Rate/Rhythm: regular rate and regular rhythm Heart Sounds: normal S1 and normal S2; no murmur Extremities: normal capillary refill and + pedal edema; no calf tenderness Gastrointestinal (Abdomen) Inspection/Auscultation: normal bowel sounds; + abdomen abnormal to inspection (obese) Percussion/Palpation: abdomen soft; abdomen nontender, no guarding and abdomen not rigid Skin no rashes, warm and dry (No areas of cellulitis seen) Neurologic awake; not confused Psychiatric A+Ox3, euthymic affect Discharge Data Allergies Allergy/AdvReac Type Severity Reaction Status Date / Time No Known Drug Allergies Allergy Unknown Verified 01/27/21 15:14 Consultations 01/27/21 16:23 ED Decision to Admit Stat 01/27/21 16:51 Consult Neurology Routine 01/28/21 09:09 Consult Urology Routine Ordered Studies 01/27/21 12:54 CT head/brain wo con Stat IMPRESSION: 1. Motion degraded exam. No acute intracranial abnormality. 2. Chronic findings as above. 01/27/21 15:35 US point of care ultrasound Routine 01/27/21 16:48 US renal/blad retro comp Routine IMPRESSION: 1. Mild bilateral hydronephrosis. 2. Right nephrolithiasis. 3. Decompressed urinary bladder with Pike catheter. Hospital Course (1) JUAREZ (acute kidney injury): Hema Grajeda is a 50 year old male admitted to [facility] from January 26-2020 due to hypotension and urinary retention. Initial concern for sepsis however urine and blood cultures came back negative at 48 hours. He was diagnosed with acute kidney failure with Cr 5.95 from 3.47 with hyperkalemia requiring emergent hemodialysis. He required vasopressors due to hypotension (suspect somewhat due to his atenolol in the setting of JUAREZ) therefore was initially admitted to the ICU. Acute kidney injury secondary to bladder outlet obstruction causing urine retention treated with pike catheter insertion. Tamsulosin started to help with eventual trial without catheter. He will follow up with urology in clinic - appointment to be arranged. Repeat renal ultrasound has been ordered. Given current renal function recommend discontinuation of lisinopril until follow up with his bung sewer in 1-2 weeks. Atenolol switched for carvedilol as more cardio-selective and less effected by renal clearance and less likely to cause hypotension if this was to occur again. INR elevated at 4.0 on admission. INR 2.1 on discharge. Recommend he continues 1mg PO daily until further advice from his PCP. T2DM - No changes were made to his insulin regimen however during his hospitalization he has only required 26-34 units/day. Compared to his outptient regimen > 100 units therefore recommend continually trying to help with diet optimization. (2) Supratherapeutic INR: (3) DM type 2 (diabetes mellitus, type 2): (4) Coronary artery disease: (5) Gout: (6) HTN (hypertension): (7) History of CVA (cerebrovascular accident): (8) DVT prophylaxis: (9) Paraplegia: Total Time Total Time Spent Total Time Spent (In Minutes): 40 Total Time Includes: Examination of the Patient, Discharge Planning and Medication Reconciliation Discharge Plan Discharge Items Patient Disposition: Home - Self-Care Reason For Visit: ALOC Discharge Diagnosis: Acute kidney injury Bladder outlet obstruction Activity: Resume your previous activity Non-emergency contact: Primary Care Provider Call non-emergency contact if: you have any medication questions and your symptoms worsen Follow-up/Referrals: Monserrat Lewis CRNP [Nurse Practitioner] - (1-2 weeks follow up with renal US) Demarcus Nicholson DO [Primary Care Provider] - Diet: Carb Consistent or DM2 and Low Potassium (2gm) Ambulatory Orders: Basic Metabolic Panel (Routine) Timeframe: 20210203 Location: Determined by Patient Ordered By: Sanjiv LYONS renal/blad retro comp (Routine) Timeframe: 1 Week Location: Determined by Patient Ordered By: Sanjiv Sykes Add Attending Provider Instructions: You were admitted to [facility] from January 26-2020 due to lo w blood pressure and urinary retention. You were diagnosed with acute kidney injury requiring dialysis due to high potassium levels. Urine retention suspected secondary to bladder outlet obstruction and was treated with pike catheter insertion. Tamsulosin started to help with eventual discontinuation of the pike catheter. Please continue with pike catheter until follow up with urology. No infection was found on blood or urine cultures. Given current renal function recommend discontinuation of lisinopril until follow up with your bung sewer in 1-2 weeks. We will switch your atenolol to a similar medication called carvedilol which is more cardio-selective and less renally excreted. Please call your bung sewer on Monday for a follow up appointment. INR 2.1 on discharge. Please continue with warfarin 1mg PO daily given INR was elevated on admission. Please follow up with your outpatient anticoagulation clinic regarding this. Diabetes - Please continue your usual insulin outpatient regimen. HbA1C 8.1 suggests possibly you are not taking enough insulin but would recommend you follow up with your primary care physician regarding adjusting your insulin dosing. Insulin requirement as inpatient has consisted of a total of 26-34 units insulin a day. Pending Studies at Discharge: No Stand-Alone Forms: My [facility], Smoking Cessation Medications and DC Order Prescriptions: New warfarin [Jantoven] 1 mg Tablet 1 mg PO HS Qty: 30 RF: 0 tamsulosin 0.4 mg Capsule 0.4 mg PO QAM Qty: 30 RF: 0 carvedilol 3.125 mg tablet 3.125 mg PO BID Qty: 60 RF: 0 Continued allopurinol 300 mg tablet 300 mg PO DAILY RF: 0 cholecalciferol (vitamin D3) 25 mcg (1,000 unit) capsule 25 mcg PO DAILY RF: 0 Toujeo SoloStar U-300 Insulin 300 unit/mL (1.5 mL) insulin pen 0 unit subcut BID RF: 0 gabapentin 300 mg capsule 300 mg PO BID RF: 0 famotidine [Pepcid] 40 mg tablet 40 mg PO DAILY RF: 0 insulin aspart U-100 [Novolog Flexpen U-100 Insulin] 100 unit/mL Insulin Pen 0 unit SUBCUT TIDM RF: 0 clotrimazole-betamethasone 1-0.05 % cream 1 applic TOPICAL BID RF: 0 oxycodone [Roxicodone] 30 mg tablet 15 - 30 mg PO TID PRN (Reason: Pain) RF: 0 Discontinued atenolol 25 mg Tablet 25 mg PO QAM RF: 0 warfarin [Coumadin] 2.5 mg Tablet 0 mg PO UD RF: 0 lisinopril 5 mg tablet 5 mg PO DAILY RF: 0 Discharge Orders: Discharge Order (Routine); Ordered 01/30/21 Ordered By: Sanjiv Flynn/Other Patient Handouts: Managing Type 2 Diabetes, A1C Admission Data Admit Date/Time: 01/27/21 15:59 Attending Provider: Sanjiv Sykes Admit Provider: Josh Arias Primary Care Provider: Demarcus Nicholson Other Providers: Dave Rodriguez ; Juan Enamorado ; Judd Alonso ; Gurvinder Jackson ; Elias Cadet ; Arielle Carey ; Juan Mejia ; Xiomara Schroeder ; Monserrat Leiws ; Deirdre Ramirez ; Jesse Fan ; Deborah Tsang ; Ramandeep Ramirez Other Interventions: Discharge Summary Assessment (RN) Last Done: 01/30/21 18:04 Coding Level of Care Code D/C Day Management >30 mins Diagnoses JUAREZ (acute kidney injury) N17.9 Supratherapeutic INR R79.1 DM type 2 (diabetes mellitus, type 2) E11.69; Z79.4 Diabetes mellitus complication status: with other specified complication Diabetes mellitus lobsterman insulin use: with lobsterman use Coronary artery disease I25.10 Associated angina: without angina Coronary Disease-Associated Artery/Lesion type: [place] artery [place] vs. transplanted heart: [place] heart Gout M10.9 Chronicity: unspecified Gout etiology: unspecified cause Gout site: unspecified site HTN (hypertension) I10 Hypertension type: essential hypertension History of CVA (cerebrovascular accident) Z86.73 DVT prophylaxis Z29.9 Paraplegia G82.20
[2021-01-30] MEDS ORDERED: INSULIN GLARGINE SOLOSTAR 100 UNITS/ML 3 ML PEN SC SCH (21:00)
== END 2021-01-30 19:30 | disposition home or self-care (01) | DRG 683 ==
LOC: ED 12:08 → SUATTDRO 15:59 → 1E 16:05 → 2E 01-29 14:46

== ENCOUNTER 2022-04-20 12:13 | Inpatient (IN) ==
--- NOTE | 2022-04-20 14:05 | Emergency Department Note ---
Impression & Plan Bilateral cellulitis of lower leg, Supratherapeutic INR, Acute UTI, Weakness ED Provider Note NAME: AV LIVINGSTON AGE: 51 SEX: M : 1970 ARRIVES VIA: Ambulance INFORMANT: [Patient][, ] ED PROVIDER(S): [Leonardo Vela MD] Chief Complaint: Worsening weakness HPI: Patient presents due to concern for worsening weakness which is been ongoing for approximately 4 once but he does believe that it is progressively worse in nature. The patient denies any recent falls or trauma. The patient has been a paraplegic for 10 years. Patient states that he typically was using a urinal but was so weak that he was unable to do so and had a catheter placed recently. Patient denies any chest pains or shortness of breath. The patient has had occasional nonproductive cough. No smoking history the patient denies any known sick contacts or recent travel. Patient states that he is so weak that he has difficulty just with holding things in his hands in order to feed himself or give himself anything to drink. Patient does live on his own and does use a power chair. Patient denies any headache or neck pain. Patient states that he does not have any sensory deficits but he does not have any movement of his bilateral lower extremities ROS: See HPI for pertinent positives and negatives. A total of 10 systems were reviewed and otherwise negative. Past medical history: See below Surgical history: See below Social history: See below Physical Exam: GENERAL: NAD, [wearing a mask,] non-toxic. EYE EXAM: Normal conjunctiva. PERRL, no anisocoria and EOM's grossly intact w/o pain. NECK: Supple, no nuchal rigidity, no adenopathy, non-tender. No signs of meningismus. FROM of the neck with good chin to chest and neck extension. No stridor. LUNGS: Clear to auscultation. Normal chest wall mechanics. HEART: NSR, no MRG. ABDOMEN: Abdomen soft, non-tender, normo-active bowel sounds, no masses, no rebound or guarding. BACK: No CVA TTP. SKIN: No rashes and no bruising. UPPER EXTREMITIES: Upper extremities are grossly normal. LOWER EXTREMITIES: Bilateral blanching redness over to the bilateral lower extremities with associated small whitish pustules. NEURO EXAM: A&O x3, cranial nerves II-XII grossly intact, normal speech, moves all 4 extremities. Differential diagnoses: Cellulitis, abscess, MRSA infection, DVT, necrotizing fasciitis, dermatitis, drug eruption, allergic reaction, as well as other patho logies. Course: Patient was seen and evaluated the bedside. Full history physical exam was performed. EKG interpreted by me Normal sinus rhythm, rate of 86, normal intervals, normal axis, no ST e levations. No significant change for comparison completed February 24, 2022. Imaging Studies: See Below Cardiac monitoring: An order was placed for continuous cardiac monitoring. The monitor shows a rate of 92 with sinus rhythm. MDM: Patient did present due to concern for weakness. Blood work was obtained and the patient was given IV fluids and Rocephin. Patient was also given doxycycline. Patient's blood counts show a normal white count H&H and platelet count. The patient's kidney function does show a creatinine 1.5. This is slightly higher from comparison of 1.3. The patient did have an elevated INR at 4.3 and is supratherapeutic. Mild hypomagnesemia noted. Urinalysis does show concern for possible infection as he does have bacteria leukocytes and whites. Patient has had prior pansensitive Klebsiella. Given the patient's weakness paraplegia UTI and concomitant bilateral lower extremity cellulitis I did speak the on-call hospitalist Dr. Avendano and the patient was admitted to the medicine service. Past Med/Surg History Medical History Celiac disease Chronic kidney disease, stage 3a follows with [facility] Coronary artery disease CABG x 1 2012-VG to LAD, multiple stents, follows with [facility] Diastolic congestive heart failure EF 55-59% Difficult airway for intubation 01/18/22 Patient unable to be intubated with Glidescope 4 - good view but unable to pass ETT, Igel #5 easily placed and worked well DM type 2 (diabetes mellitus, type 2) IDDM GI bleed 2018 requiring 3 blood transfusions, transferred to [facility] with work-up not revealing clear cause per records Gout Hepatitis C TREATED Hirschsprung's disease History of blood transfusion 2018 in setting of GI bleed History of COVID-19 05/2021- no symptoms- no hospitalization History of CVA (cerebrovascular accident) 2012-admitted [facility] History of endocarditis TREATED AT [facility]-2012 History of intravenous drug abuse Hyperlipidemia Morbid obesity Paraplegia Pulmonary emboli 05/2010-unknown cause- admitted and treated at [facility] Pulmonary hypertension Sleep apnea, organic NO DEVICE AT THIS TIME, HIS MACHINE WAS INVOLVED IN RECALL Surgical History H/O aortic root repair 05/2016- [facility] H/O mitral valve repair UNSURE-EITHER [facility] OR [facility] Hx of CABG 2012 [facility]- DUE TO ENDOCARDITIS, single vessel per records S/P brain surgery 2013- [facility] S/P cardiac cath S/P colostomy FOLLOWS W/ [facility] Family History Father Cardiac disorder Hypertension Prostate cancer Diabetes Coronary heart disease COPD (chronic obstructive pulmonary disease) Pacemaker Mother Hypertension Skin cancer Dementia Social History Smoking Status: Former smoker Tobacco Type: Cigarettes Second Hand Exposure: No; Do You Dip or Chew Tobacco: No; Tobacco Cessation Education Requested by Patient: No Hx Alcohol Use: No Hx Substance Use: Yes Last Used Substance: Hours (ago) Last Used Substance Other:: LAST NIGHT Preferred Language: Vincentian Communication Ability: Effective Care Trainer Required: No Beliefs That Will Affect Care: None marital status: Current Living Situation: Parent Current Living Situation Comment: PT HAS CAREGIVER AND LIVES W/ PARENTS ([place]) current occupational status: employed 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 How many Children do You have: 2 Other Information That Helps Us Care for You: No Feels Safe at Home: Yes Safety Concerns: Feels Safe At This Time Assistive Devices: Denture - Upper, Lift Chair and Wheelchair Allergies Allergies Allergy/AdvReac Type Severity Reaction Status Date / Time sulfamethoxazole AdvReac Unknown "Levels Verified 02/17/22 00:49 [From Bactrim] were up"-per [facility] trimethoprim [From Bactrim] AdvReac Unknown "Levels Verified 02/17/22 00:49 were up"-per [facility] Home Meds Home Medications Medication Instructions Recorded Confirmed insulin aspart U-100 100 unit/mL 0 unit subcut TIDM per sliding 10/08/18 02/24/22 (3 mL) subcutaneous pen (Novolog scale Flexpen U-100 Insulin aspart) gabapentin 300 mg capsule See Rx Instructions .Route .COMPLEX 01/14/19 02/24/22 famotidine 40 mg tablet (Pepcid) 40 mg PO QAM 05/27/19 02/24/22 allopurinol 300 mg tablet 300 mg PO QAM 01/23/20 02/24/22 cholecalciferol (vitamin D3) 25 25 mcg PO DAILY 01/23/20 02/24/22 mcg (1,000 unit) capsule insulin glargine U-300 conc 300 50 unit subcut BID 08/10/21 02/24/22 unit/mL (1.5 mL) subcutaneous pen (Toujeo SoloStar U-300 Insulin) warfarin 2.5 mg tablet 2.5 mg PO DAILY 08/13/21 02/24/22 finerenone 10 mg tablet (Kerendia) 10 mg PO DAILY 12/29/21 02/24/22 amoxicillin 875 mg-potassium 1 tab PO BID 02/24/22 02/24/22 clavulanate 125 mg tablet clotrimazole-betamethasone 1 1 applic topical BID PRN affected 02/24/22 02/24/22 %-0.05 % topical cream area nystatin 100,000 unit/gram topical 1 applic topical BID 02/24/22 02/24/22 powder oxycodone 30 mg tablet 30 mg PO TID 02/24/22 02/24/22 Previous Rx's Medication Instructions Recorded carvedilol 6.25 mg tablet 6.25 mg PO BID #60 tabs 09/30/21 cyclobenzaprine 10 mg tablet 10 mg PO BID PRN muscle spasm #20 02/17/22 tabs ciprofloxacin HCl 500 mg tablet 500 mg PO BID #10 tabs 04/02/22 (Cipro) Results & Data (ED) Vital Signs Vital Signs - 24 hr 04/20/22 12:35 04/20/22 15:21 04/20/22 14:21 Temperature 37.1 C Temperature Source Oral Pulse Rate 94 H 87 Pulse Rhythm Regular Regular Pulse Strength Normal Respiratory Rate 20 21 Respiratory Effort / Characteristics Non-Labored Spontaneous Non-Labored Respiratory Depth Normal Respiratory Pattern Regular Blood Pressure 153/82 H Blood Pressure Mean 105 Pulse Oximetry 95 96 96 Oxygen Delivery Method Room Air Room Air Room Air Sepsis Recent Fever Within 48 Hours No Sepsis New/Unexplained Change in Mental Status N/A Sepsis Action Taken by Nursing No Action Required 04/20/22 16:00 04/20/22 16:30 04/20/22 17:00 Temperature Temperature Source Pulse Rate Pulse Rhythm Pulse Strength Respiratory Rate Respiratory Effort / Characteristics Non-Labored Spontaneous Non-Labored Spontaneous Non-Labored Spontaneous Respiratory Depth Respiratory Pattern Blood Pressure Blood Pressure Mean Pulse Oximetry 93 96 97 Oxygen Delivery Method Room Air Room Air Sepsis Recent Fever Within 48 Hours Sepsis New/Unexplained Change in Mental Status Sepsis Action Taken by Longterm Medications Current Medication List: was personally reviewed by me Laboratory Data Attestation: I reviewed the patient's lab results. Result diagrams: 04/20/22 15:08 04/20/22 15:08 Lab Results 04/20/22 04/20/22 04/20/22 Range/Units 15:08 15:08 15:08 WBC 8.88 (4.8-10.8) K/ul RBC 4.96 (4.63-6.08) M/uL Hgb 14.6 (14.0-18.0) g/dl Hct 45.3 (40.1-51.0) % MCV 91.3 (80.0-100.0) fL MCH 29.4 (25.0-34.0) pg MCHC 32.2 (32.0-36.0) g/dL RDW Std Deviation 54.0 H (36.4-46.3) fL RDW Coeff of Lorenzo 16.2 H (11.5-14.5) % Plt Count 177 (130-400) K/uL MPV 9.9 (9.4-12.4) fL Immature Gran % (Auto) 1.2 % Neut % (Auto) 84.3 % Lymph % (Auto) 9.7 % Crawford % (Auto) 3.4 % Eos % (Auto) 1.1 % Baso % (Auto) 0.3 % Neut # (Auto) 7.48 H (1.4-6.5) K/uL Lymph # (Auto) 0.86 L (1.2-3.4) K/uL Crawford # (Auto) 0.30 (0.24-0.82) K/uL Eos # (Auto) 0.10 (0-0.50) K/uL Baso # (Auto) 0.03 (0-0.2) K/uL Immature Gran # (Auto) 0.11 H (0.00-0.02) K/uL PT 42.3 H (9.0-12.0) Seconds INR 4.3 H (0.9-1.1) APTT 54.2 H* (21.0-31.0) Seconds PTT Ratio 2.0 Sodium 135 L (136-145) mmol/L Potassium 3.9 (3.5-5.1) mmol/L Chloride 104 (98-107) mmol/L Carbon Dioxide 25 (21-32) mmol/L Anion Gap 6 (3-11) BUN 38 H (6-23) mg/dl Creatinine 1.56 H (0.6-1.4) mg/dl Est Cr Clr Drug Dosing 80.1 ml/min Est GFR ( Amer) 59.6 ml/min Est GFR (Non-Af Amer) 51.4 ml/min BUN/Creatinine Ratio 24.4 H (10-20) Glucose 228 H (70-99(Fasting)) mg/dl Calcium 8.9 (8.5-10.1) mg/dl Magnesium 1.6 L (1.7-2.4) mg/dl Total Bilirubin 1.0 (0.2-1.0) mg/dl AST 15 (13-39) U/L ALT 26 (7-52) U/L Alkaline Phosphatase 170 H (34-104) U/L Troponin I High Sens 8.2 (0-20) pg/ml Total Protein 6.3 (6.0-8.3) gm/dl Albumin 2.8 L (3.4-5.0) gm/dl Globulin 3.5 (2.5-4.0) gm/dl Albumin/Globulin Ratio 0.8 L (0.9-2) Procalcitonin (0-0.5) ng/ml 04/20/22 Range/Units 15:08 WBC (4.8-10.8) K/ul RBC (4.63-6.08) M/uL Hgb (14.0-18.0) g/dl Hct (40.1-51.0) % MCV (80.0-100.0) fL MCH (25.0-34.0) pg MCHC (32.0-36.0) g/dL RDW Std Deviation (36.4-46.3) fL RDW Coeff of Lorenzo (11.5-14.5) % Plt Count (130-400) K/uL MPV (9.4-12.4) fL Immature Gran % (Auto) % Neut % (Auto) % Lymph % (Auto) % Crawford % (Auto) % Eos % (Auto) % Baso % (Auto) % Neut # (Auto) (1.4-6.5) K/uL Lymph # (Auto) (1.2-3.4) K/uL Crawford # (Auto) (0.24-0.82) K/uL Eos # (Auto) (0-0.50) K/uL Baso # (Auto) (0-0.2) K/uL Immature Gran # (Auto) (0.00-0.02) K/uL PT (9.0-12.0) Seconds INR (0.9-1.1) APTT (21.0-31.0) Seconds PTT Ratio Sodium (136-145) mmol/L Potassium (3.5-5.1) mmol/L Chloride (98-107) mmol/L Carbon Dioxide (21-32) mmol/L Anion Gap (3-11) BUN (6-23) mg/dl Creatinine (0.6-1.4) mg/dl Est Cr Clr Drug Dosing ml/min Est GFR ( Amer) ml/min Est GFR (Non-Af Amer) ml/min BUN/Creatinine Ratio (10-20) Glucose (70-99(Fasting)) mg/dl Calcium (8.5-10.1) mg/dl Magnesium (1.7-2.4) mg/dl Total Bilirubin (0.2-1.0) mg/dl AST (13-39) U/L ALT (7-52) U/L Alkaline Phosphatase (34-104) U/L Troponin I High Sens (0-20) pg/ml Total Protein (6.0-8.3) gm/dl Albumin (3.4-5.0) gm/dl Globulin (2.5-4.0) gm/dl Albumin/Globulin Ratio (0.9-2) Procalcitonin 0.25 (0-0.5) ng/ml Administered Medications Carvedilol (Carvedilol 6.25 Mg Tab) 6.25 mg PO BID CLAUDIA Stop: 05/20/22 20:59 Last Admin: 04/20/22 20:52 Dose: 6.25 mg Documented By: NENITA Gabapentin (Gabapentin 300 Mg Cap) 300 mg PO HS CLAUDIA Stop: 05/20/22 20:59 Last Admin: 04/20/22 20:52 Dose: 300 mg Documented By: NMS Vancomycin HCl 2,750 mg/ (Sodium Chloride) 555 mls @ 180 mls/hr IV ONE ONE Stop: 04/20/22 22:34 Last Admin: 04/20/22 20:38 Dose: 180 mls/hr Documented By: NENITA Insulin Aspart (Insulin Aspart Per Unit) 0 units SC ACHS CLAUDIA Stop: 05/20/22 20:59 Last Admin: 04/20/22 20:48 Dose: 13 units Documented By: NENITA Co-signed By: CHRIS Insulin Glargine (Lantus Per Unit Charge) 40 units SQ [facility] Stop: 04/20/22 23:59 Last Admin: 04/20/22 20:50 Dose: 40 units Documented By: NENITA Co-signed By: CHRIS Nystatin (Nystatin Powder 15gm Btl) 1 appln EXT TID [facility] Stop: 05/20/22 20:59 Last Admin: 04/20/22 20:53 Dose: 1 appln Documented By: NENITA Oxycodone HCl (Oxycodone Hcl Ir 30 Mg Tab (Immediate Release)) 30 mg PO TID CLAUDIA Stop: 05/04/22 20:59 Last Admin: 04/20/22 21:03 Dose: 30 mg Documented By: NENITA Discontinued Medications Doxycycline Hyclate (Doxycycline Hyclate 100 Mg Cap) 100 mg PO NOW STA Stop: 04/20/22 14:31 Last Admin: 04/20/22 15:20 Dose: 100 mg Documented By: JOY Sodium Chloride (Nss 1000ml) 1,000 mls @ 999 mls/hr IV .Q1H1M CLAUDIA Stop: 04/20/22 15:30 Last Infusion: 04/20/22 17:32 Dose: 0 mls/hr Documented By: Admin: 04/20/22 15:21 Dose: 999 mls/hr Documented By: JOY Ceftriaxone Sodium (Rocephin) 2,000 mg in 70 mls @ 140 mls/hr IV NOW STA Stop: 04/20/22 14:50 Last Infusion: 04/20/22 16:12 Dose: 0 mls/hr Documented By: Admin: 04/20/22 15:20 Dose: 140 mls/hr Documented By: JOY Magnesium Sulfate/Dextrose (Magnesium Sulfate / D5w) 1 gm in 100 mls @ 100 mls/hr IV Q1H CLAUDIA Stop: 04/20/22 20:05 Last Admin: 04/20/22 20:50 Dose: 100 mls/hr Documented By: Infusion: 04/20/22 20:49 Dose: 100 mls/hr Documented By: Admin: 04/20/22 19:49 Dose: 100 mls/hr Documented By: NENITA Imaging Data Radiologist's Impression: Chest X-Ray 04/20/22 14:21 XR chest 1V portable CLINICAL HISTORY: SEPSIS TECHNIQUE: Single frontal radiograph of the chest was obtained. Comparison: Comparison is made to chest radiograph 02/17/2022 FINDINGS: Median sternotomy wires are unchanged. Cardiomegaly is noted. Exam is limited by underpenetration. There is an ill-defined faint airspace opacity in the left lower lung. No evidence of pleural effusion or pneumothorax. IMPRESSION: Left lower lung appearing airspace opacity may represent overlying soft tissue versus atelectasis, pneumonia, and/or aspiration. ACT 112: Negative or not required by law. Electronically signed by: Adeel Guthrie M.D. 04/20/2022 2:42 PM Discharge Plan Visit Data Chief Complaint: Pain (Generalized) ED Provider: Leonardo Vela Discharge Problem: Bilateral cellulitis of lower leg, Supratherapeutic INR, Acute UTI, Weakness Patient Disposition: Admitted As Inpatient Discharge Instructions Interventions: ED Discharge Assessment Last Done: 04/20/22 17:47
[2022-04-20] MEDS ORDERED: cefTRIAXone SODIUM 2,000 MG/70 ML BAG IV STA (14:21)
[2022-04-20] MEDS ORDERED: DOXYCYCLINE HYCLATE 100 MG CAP PO STA (14:30)
[2022-04-20] MEDS ORDERED: SODIUM CHLORIDE 0.9% 1000ML 1,000 ML IV SCH (14:30)
--- NOTE | 2022-04-20 14:43 | XRay Report ---
XR chest 1V portable CLINICAL HISTORY: SEPSIS TECHNIQUE: Single frontal radiograph of the chest was obtained. Comparison: Comparison is made to chest radiograph 02/17/2022 FINDINGS: Median sternotomy wires are unchanged. Cardiomegaly is noted. Exam is limited by underpenetration. Th ere is an ill-defined faint airspace opacity in the left lower lung. No evidence of pleural effusion or pneumothorax. IMPRESSION: Left lower lung appearing airspace opacity may represent overlying soft tissue versus atelectasis, pn eumonia, and/or aspiration. ACT 112: Negative or not required by law. Electronically signed by: Adeel Guthrie M.D. 04/20/2022 2:42 PM
[2022-04-20 15:30] LABS: Basophils # (auto) 0.03 K/uL (0-0.2); Basophils % (auto) 0.3 %; Eosinophils % (auto) 1.1 %; Hematocrit (blood only) 45.3 % (40.1-51.0); Hemoglobin 14.6 g/dl (14.0-18.0); Immature Granulocytes # (auto) 0.11 K/uL (0.00-0.02); Immature Granulocytes % (auto) 1.2 %; Lymphocytes # (auto) 0.86 K/uL (1.2-3.4); Lymphocytes % (auto) 9.7 %; Mean Corpuscular Hemoglobin 29.4 pg (25.0-34.0); Mean Corpuscular Hgb Conc 32.2 g/dL (32.0-36.0); Mean Corpuscular Volume 91.3 fL (80.0-100.0); Mean Platelet Volume 9.9 fL (9.4-12.4); Monocytes % (auto) 3.4 %; Neutrophils # (auto) 7.48 K/uL (1.4-6.5); Neutrophils % (auto) 84.3 %; Platelet Count 177 K/uL (130-400); RDW Coefficient of Variation 16.2 % (11.5-14.5); Red Blood Count 4.96 M/uL (4.63-6.08); White Blood Count 8.88 K/ul (4.8-10.8)
[2022-04-20 15:49] LABS: Appearance Urine Turbid (Clear); Bacteria Urine Automated 4+ (Negative); Bilirubin Urine Negative (Negative); Blood Urine 3+ (Negative); Color Urine Yellow; Epithelial Cell Urine Auto >30 /lpf (0-5); Glucose Urine UA Negative (Negative); Ketones Urine Negative (Negative); Leukocyte Esterase Urine 3+ (Negative); Nitrite Urine Negative (Negative); Specific Gravity Urine 1.015 (1.000-1.030); Urobilinogen Urine Negative (Negative); WBC Urine Automated >30 /hpf (0-5)
[2022-04-20 15:50] LABS: Protein Urine 3+ (Negative)
[2022-04-20 15:53] LABS: Albumin Globulin Ratio 0.8 (0.9-2); Albumin Level 2.8 gm/dl (3.4-5.0); BUN Creatinine Ratio 24.4 (10-20); Calcium 8.9 mg/dl (8.5-10.1); Creatinine Clr Calc Pharmacy 80.1 ml/min; Est GFR (African American) 59.6 ml/min; Est GFR (Non-African American) 51.4 ml/min; Globulin 3.5 gm/dl (2.5-4.0); Magnesium 1.6 mg/dl (1.7-2.4); Potassium 3.9 mmol/L (3.5-5.1); Total Protein 6.3 gm/dl (6.0-8.3)
[2022-04-20 15:55] LABS: Troponin I High Sensitivity 8.2 pg/ml (0-20)
[2022-04-20 15:59] LABS: INR 4.3 (0.9-1.1); Prothrombin Time 42.3 Seconds (9.0-12.0)
[2022-04-20 16:01] LABS: RBC Urine Automated >30 /hpf (0-4)
[2022-04-20 16:23] LABS: Partial Thromboplastin Time 54.2 Seconds (21.0-31.0)
--- NOTE | 2022-04-20 17:11 | History & Physical Report ---
Date of Service April 20, 2022 Assessment & Plan (1) Bilateral arm weakness: Plan: Progressive, distal more so than proximal muscles, left hand > right hand. Seen by neurology in [place] recently. EMG study (no report available) with C5 disease?? MRI head/neck were planned. Given his progressive symptoms will obtain MRI brain and MRI cervical spine w/ and w/o contrast here. Records show he was placed on vitamin B12 shots rcently, - thus, B12 deficiency could contribute but unlikely to be the primary culprit. Check TSH and FT4. (2) Epididymitis: Plan: Recent diagnosis earlier this month. s/p cipro x 14+ days since the diagnosis. Clinically improved. WBC count has normalized. u/a dirty today, however. Urine culture pending. Rocephin/vanco for now. Does have yeast on microscopy - has had edith glabrata in the past - defer on antifungals until final culture is back, however. (3) Bilateral cellulitis of lower leg: Plan: Rocephin/vancomycin IV. Serial exams. (4) Acute UTI: Plan: Catheter-associated UTI. Had pike placed early February, then replaced late March. Follow culture. Rocephin/vanco as above for now. (5) Supratherapeutic INR: Plan: Likely due to recent cipro usage. Hold coumadin. INR in am. (6) Celiac disease: Plan: Recent diagnosis by his PCP. Via antibody testing?? Place on gluten free diet. (7) Morbid obesity: Plan: BMI 46 (8) CAD (coronary atherosclerotic disease): Plan: No ischemic symptoms at this time. Continue coreg 6.25mg BID. Not on a statin agent or aspirin. (9) HTN (hypertension): Plan: Controlled. Cont coreg. (10) Calcium nephrolithiasis: Plan: CT abd/pelvis (see HPI) at [facility] within the last week. Is scheduled for intervention of his stones later in April. (11) Sleep apnea, organic: Plan: Does not use any device. (12) H/O mitral valve repair: Plan: noted (13) H/O aortic root repair: Plan: noted (14) History of CVA (cerebrovascular accident): Plan: noted with resulting paraplegia? (15) Hirschsprung's disease: Plan: s/p subtotal colectomy with ileostomy formation. (16) Pulmonary emboli: Plan: history of. INR >4 - hold coumadin, INR am. (17) DM type 2 (diabetes mellitus, type 2): Plan: a1c 8.1% in 2020. repeat tomorrow. cont lantus BID. cont novolog - correction 12, carb ratio 1:4. (18) Paraplegia: Plan: acquired, 2nd to stroke (19) Hypomagnesemia: Plan: replete IV repeat mag level am (20) Chronic pain syndrome: Plan: on oxycodone 30mg TID History of Present Illness Chief Complaint: b/l hand/arm weakness, L>R; recent epididymitis Primary Care Provider: Demarcus Nicholson DO Mr Grajeda is a complicated 51yo male with history of acquired paraplegia, prior endocarditis, chronic coumadin use, h/o PE, T2DM, morbid obesity, CAD, CVA, CKD stage 3, kidney stones, recurrent UTIs, h/o mitral valve repair, h/o aortic root repair, Hirschsprung's disease s/p ileostomy creation, and prior Hepatitis C. Over this summer he has had difficulties with a left-sided kidney stone, b/l epididymitis, and urinary retention requiring pike catheter placement on 02/18/22 (and replacement on 04/15/22). In addition he has had 3-4 months of progressive bilateral upper extremity weakness, L>R, especially of the left hand. He is right handed, but has favored his left hand in use of his powerchair, driving a car, and other ADLs. It is now difficult to feed himself, use his powerchair, etc. He saw his primary neurologist, Dr Andrey Zaragoza, in [place] earlier this month. EMGs were obtained and, to his knowledge, may have shown C5 disease? He is scheduled to have MRI brain and MRI cervical spine in April due to the progressive upper extremity weakness. He also mentions his PCP has done considerable blood work and other tests this summer to determine if there are other conditions present contributing to the b/l arm/hand weakness. He was told by his PCP that he had celiac disease (new diagnosis for him) and was told to start a gluten-free diet. He has followed such for about 2 months. When asked what brought him to the hospital today he clearly stated it was out of concern for his worsening b/l upper extremity weakness. With respect to the recent diagnosis of epididymitis and UTI - seen initially at [facility] in early March. Prescribed cipro x 10 days on 04/01/22. Culture results not available. Then seen in our ER on 04/02/22 due to scrotal pain on the left side. Diagnosed with b/l epididymitis. Told to continue the cipro. His scrotal/testicular pain improved with cipro and on 04/12/22 his PCP reordered an additional 14 day course of cipro. The scrotal swelling is "much better" per the patient. On 04/12/22 he was placed on a course of prednisone 20mg BID for his upper body weakness. He states his BSGs were very high with such and it did not provide any improvement in his weakness thus he stopped the prednisone after a few days. Finally, on 04/13/22, he was seen in the [facility] clinic in [place] for his left-sided kidney stone. CT a/p was obtained during that visit showing - CT ABD/PELVIS WO IV/ORAL CONTRAST 02/10/2019 9:44 AM FINDINGS: Tubes, catheters and devices: Pike catheter appears to be in place but the balloon appears to be inflated the in the urethra. Small amount of gas in the bladder likely associated with presence of Pkie catheter. Lungs: There is left basilar consolidation. Pleural spaces: Trace pleural effusions seen, left greater than right. Liver: Normal. No mass. Gallbladder and bile ducts: Multiple calcified gallstones are present. Pancreas: Normal. No ductal dilation. Spleen: Normal. No splenomegaly. Adrenal glands: Normal. No mass. Kidneys and ureters: Left renal nonobstructing calculus is similar to previous in size. New calculus in the lower pole of left kidney measures approximately 6 mm. Pinpoint right renal calculi are nonobstructive. No definite ureteral calculi identified. Interval development of exophytic lesion posterolaterally off the left kidney, measuring 1.8 cm in diameter. It is not definitively characterized but appears to be solid. Stomach and bowel: There is a right anterior abdominal ostomy site. Appendix: No evidence of appendicitis. Intraperitoneal space: Unremarkable. No free air. No significant fluid collection. Vasculature: Unremarkable. No abdominal aortic aneurysm. Lymph nodes: Unremarkable. No enlarged lymph nodes. Urinary bladder: There is moderate bladder wall thickening consistent with incom plete distension, chronic outflow obstruction, or cystitis. Reproductive: Unremarkable as visualized. Bones/joints: There are moderate degenerative changes present. Soft tissues: There appears to be a bowel containing periumbilical hernia. IMPRESSION: 1. New exophytic lesion, which appear appears to be solid, extending of the left kidney. Primary neoplasm such as are renal cell carcinoma not excluded. Recommend follow-up with dedicated CT IV study with renal protocol versus ultrasound if patient cannot tolerate IV contrast. 2. Bilateral renal calculi are nonobstructive 3. Pike catheter balloon appears to be dilated in the urethra. Small amount of gas in the bladder likely secondary Pike catheter . 4. There appears to be a bowel containing periumbilical hernia. (again, on 04/15, he came back to our ER to have his pike removed and have a new pike placed - since the exchange he has had no issues) Allergies Allergy/AdvReac Type Severity Reaction Status Date / Time sulfamethoxazole AdvReac Unknown "Levels Verified 02/17/22 00:49 [From Bactrim] were up"-[facility] trimethoprim [From Bactrim] AdvReac Unknown "Levels Verified 02/17/22 00:49 were up[facility] Medication Instructions Recorded Confirmed Type insulin aspart U-100 100 unit/mL 0 unit subcut TIDM per sliding 10/08/18 02/24/22 History (3 mL) subcutaneous pen (Novolog scale Flexpen U-100 Insulin aspart) gabapentin 300 mg capsule See Rx Instructions .Route .COMPLEX 01/14/19 02/24/22 History famotidine 40 mg tablet (Pepcid) 40 mg PO QAM 05/27/19 02/24/22 History allopurinol 300 mg tablet 300 mg PO QAM 01/23/20 02/24/22 History cholecalciferol (vitamin D3) 25 25 mcg PO DAILY 01/23/20 02/24/22 History mcg (1,000 unit) capsule insulin glargine U-300 conc 300 50 unit subcut BID 08/10/21 02/24/22 History unit/mL (1.5 mL) subcutaneous pen (Toujeo SoloStar U-300 Insulin) warfarin 2.5 mg tablet 2.5 mg PO DAILY 08/13/21 02/24/22 History carvedilol 6.25 mg tablet 6.25 mg PO BID #60 tabs 09/30/21 02/24/22 Rx finerenone 10 mg tablet (Kerendia) 10 mg PO DAILY 12/29/21 02/24/22 History cyclobenzaprine 10 mg tablet 10 mg PO BID PRN muscle spasm #20 02/17/22 02/24/22 Rx tabs amoxicillin 875 mg-potassium 1 tab PO BID 02/24/22 02/24/22 History clavulanate 125 mg tablet clotrimazole-betamethasone 1 1 applic topical BID PRN affected 02/24/22 02/24/22 History %-0.05 % topical cream area nystatin 100,000 unit/gram topical 1 applic topical BID 02/24/22 02/24/22 History powder oxycodone 30 mg tablet 30 mg PO TID 02/24/22 02/24/22 History ciprofloxacin HCl 500 mg tablet 500 mg PO BID #10 tabs 04/02/22 Rx (Cipro) Past Med/Surg History Medical History (Updated 04/20/22 @ 22:15 by Sanjiv Avendano) Celiac disease Chronic kidney disease, stage 3a follows with [facility] Coronary artery disease CABG x 1 2012-VG to LAD, multiple stents, follows with [facility] Diastolic congestive heart failure EF 55-59% Difficult airway for intubation 01/18/22 Patient unable to be intubated with Glidescope 4 - good view but unable to pass ETT, Igel #5 easily placed and worked well DM type 2 (diabetes mellitus, type 2) IDDM GI bleed 2018 requiring 3 blood transfusions, transferred to [facility] with work-up not revealing clear cause per records Gout Hepatitis C TREATED Hirschsprung's disease History of blood transfusion 2018 in setting of GI bleed History of COVID-19 05/2021- no symptoms- no hospitalization History of CVA (cerebrovascular accident) 2012-admitted [facility] History of endocarditis TREATED AT [facility] PRESBY-2012 History of intravenous drug abuse Hyperlipidemia Morbid obesity Paraplegia Pulmonary emboli 05/2010-unknown cause- admitted and treated at [facility] Pulmonary hypertension Sleep apnea, organic NO DEVICE AT THIS TIME, HIS MACHINE WAS INVOLVED IN RECALL Surgical History H/O aortic root repair 05/2016- [facility] Hx of CABG 2012 [facility] PRES- DUE TO ENDOCARDITIS, single vessel per records S/P brain surgery 2013- [facility] S/P cardiac cath S/P colostomy FOLLOWS W/ [facility] Family History (Updated 04/20/22 @ 21:49 by Sanjiv Avendano) Father Cardiac disorder Hypertension Prostate cancer Diabetes Coronary heart disease COPD (chronic obstructive pulmonary disease) Pacemaker Mother Hypertension Skin cancer Dementia Social History (Updated 04/20/22 @ 21:50 by Sanjiv Avendano) Smoking Status: Former smoker Tobacco Type: Cigarettes Second Hand Exposure: No; Do You Dip or Chew Tobacco: No; Tobacco Cessation Education Requested by Patient: No Hx Alcohol Use: No Hx Substance Use: Yes Last Used Substance: Hours (ago) Last Used Substance Other:: LAST NIGHT Preferred Language: Lao Communication Ability: Effective Shim Plug Cutter Required: No Beliefs That Will Affect Care: None marital status: Current Living Situation: Parent Current Living Situation Comment: PT HAS CAREGIVER AND LIVES W/ PARENTS ([place]) current occupational status: employed 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 How many Children do You have: 2 Other Information That Helps Us Care for You: No Feels Safe at Home: Yes Safety Concerns: Feels Safe At This Time Assistive Devices: Denture - Upper, Lift Chair and Wheelchair Review of Systems Review of Systems: gen - no fevers or chills; eating well eyes - no visual changes HENT - no dysphagia, no runny nose/congestion neck - chronic pain, getting worse over time CV - no chest pain pulm - no cough or dyspnea GI - mild fullness but no pain; ileostomy with brown stool and normal output - testicular pain/swelling L>R but improved from 2 weeks ago musculo - swelling of legs - worse in comparison to earlier this summer psych - no anxiety skin - redness of legs endo - diabetes has been under good control (<200 except for recent prednisone use) neuro - no headache Physical Exam Physical Exam: gen - morbidly obese, NAD, awake/alert eyes - PERRL HENT - MMM, no lesions neck - mild tenderness to palpation over c-spine, no JVD, no masses heart - RRR, s1 s2, 1/6 CATARINA LSB lungs - decreased BS b/l bases; no wheezes or rales abd - distended, BS+, multiple scars present, Dexcom device present abd wall; ileostomy with brown stool right lower abdomen, NT ext - 3+ edema b/l, pulses 2+ b/l neuro - brisk reflexes upper extremities b/l, ankle clonus b/l, paraplegia; contractures of b/l hands; handgrip on right 4-5/5, left 3-4/5; biceps 4-5/5 b/l; triceps 4-5/5; shoulder abduction 4-5/5 b/l skin - erythema of b/l shins - warm redness present; occasional papules/pustules on shins; intertrigo lower abdomen (candidal) psych - a/o x 3 - left testicle swollen and tender; erythema of scrotum; right testicle mildly swollen Results & Data Results & Data ([facility]) Vital Signs (Past 12 Hours) Vital Signs Temp Pulse Resp BP Pulse Ox O2 Del Method 04/20/22 17:00 97 Room Air 04/20/22 16:30 96 04/20/22 16:00 93 Room Air 04/20/22 14:21 87 21 96 Room Air 04/20/22 15:21 96 Room Air 04/20/22 12:35 37.1 C 94 H 20 153/82 H 95 Room Air Laboratory Results Laboratory Results - last 24 hr 04/20/22 04/20/22 04/20/22 15:08 15:08 15:08 WBC 8.88 RBC 4.96 Hgb 14.6 Hct 45.3 MCV 91.3 MCH 29.4 MCHC 32.2 RDW Std Deviation 54.0 H RDW Coeff of Lorenzo 16.2 H Plt Count 177 MPV 9.9 Immature Gran % (Auto) 1.2 Neut % (Auto) 84.3 Lymph % (Auto) 9.7 [place] % (Auto) 3.4 Eos % (Auto) 1.1 Baso % (Auto) 0.3 Neut # (Auto) 7.48 H Lymph # (Auto) 0.86 L [place] # (Auto) 0.30 Eos # (Auto) 0.10 Baso # (Auto) 0.03 Immature Gran # (Auto) 0.11 H PT 42.3 H INR 4.3 H APTT 54.2 H* PTT Ratio 2.0 Sodium 135 L Potassium 3.9 Chloride 104 Carbon Dioxide 25 Anion Gap 6 BUN 38 H Creatinine 1.56 H Est Cr Clr Drug Dosing 80.1 Est GFR ( Amer) 59.6 Est GFR (Non-Af Amer) 51.4 BUN/Creatinine Ratio 24.4 H Glucose 228 H POC Glucose Lactate Calcium 8.9 Magnesium 1.6 L Total Bilirubin 1.0 AST 15 ALT 26 Alkaline Phosphatase 170 H Troponin I High Sens 8.2 Total Protein 6.3 Albumin 2.8 L Globulin 3.5 Albumin/Globulin Ratio 0.8 L Procalcitonin Urine Color Urine Appearance Urine pH Ur Specific Granger Urine Protein Urine Glucose (UA) Urine Ketones Urine Blood Urine Nitrite Urine Bilirubin Urine Urobilinogen Ur Leukocyte Esterase Urine WBC (Auto) Urine RBC (Auto) U Hyaline Cast (Auto) U Epithel Cells (Auto) Urine Bacteria (Auto) Ur Renal Epithelial Cell Urine Yeast SARS-CoV-2, RNA, NAAT 04/20/22 04/20/22 04/20/22 15:08 19:16 19:35 WBC RBC Hgb Hct MCV MCH MCHC RDW Std Deviation RDW Coeff of Lorenzo Plt Count MPV Immature Gran % (Auto) Neut % (Auto) Lymph % (Auto) [place] % (Auto) Eos % (Auto) Baso % (Auto) Neut # (Auto) Lymph # (Auto) [place] # (Auto) Eos # (Auto) Baso # (Auto) Immature Gran # (Auto) PT INR APTT PTT Ratio Sodium Potassium Chloride Carbon Dioxide Anion Gap BUN Creatinine Est Cr Clr Drug Dosing Est GFR ( Amer) Est GFR (Non-Af Amer) BUN/Creatinine Ratio Glucose POC Glucose 227 H Lactate 0.9 Calcium Magnesium Total Bilirubin AST ALT Alkaline Phosphatase Troponin I High Sens Total Protein Albumin Globulin Albumin/Globulin Ratio Procalcitonin 0.25 Urine Color Urine Appearance Urine pH Ur Specific Granger Urine Protein Urine Glucose (UA) Urine Ketones Urine Blood Urine Nitrite Urine Bilirubin Urine Urobilinogen Ur Leukocyte Esterase Urine WBC (Auto) Urine RBC (Auto) U Hyaline Cast (Auto) U Epithel Cells (Auto) Urine Bacteria (Auto) Ur Renal Epithelial Cell Urine Yeast SARS-CoV-2, RNA, NAAT 04/20/22 04/20/22 Unknown Unknown WBC RBC Hgb Hct MCV MCH MCHC RDW Std Deviation RDW Coeff of Lorenzo Plt Count MPV Immature Gran % (Auto) Neut % (Auto) Lymph % (Auto) [place] % (Auto) Eos % (Auto) Baso % (Auto) Neut # (Auto) Lymph # (Auto) [place] # (Auto) Eos # (Auto) Baso # (Auto) Immature Gran # (Auto) PT INR APTT PTT Ratio Sodium Potassium Chloride Carbon Dioxide Anion Gap BUN Creatinine Est Cr Clr Drug Dosing Est GFR ( Amer) Est GFR (Non-Af Amer) BUN/Creatinine Ratio Glucose POC Glucose Lactate Calcium Magnesium Total Bilirubin AST ALT Alkaline Phosphatase Troponin I High Sens Total Protein Albumin Globulin Albumin/Globulin Ratio Procalcitonin Urine Color Yellow Urine Appearance Turbid A Urine pH 8.0 H Ur Specific Granger 1.015 Urine Protein 3+ H Urine Glucose (UA) Negative Urine Ketones Negative Urine Blood 3+ H Urine Nitrite Negative Urine Bilirubin Negative Urine Urobilinogen Negative Ur Leukocyte Esterase 3+ H Urine WBC (Auto) >30 H Urine RBC (Auto) >30 H U Hyaline Cast (Auto) 1-5 U Epithel Cells (Auto) >30 H Urine Bacteria (Auto) 4+ H Ur Renal Epithelial Cell Not Reportable Urine Yeast Present A SARS-CoV-2, RNA, NAAT NEGATIVE Diagnostic Findings Chest X-Ray 04/20/22 14:21 XR chest 1V portable CLINICAL HISTORY: SEPSIS TECHNIQUE: Single frontal radiograph of the chest was obtained. Comparison: Comparison is made to chest radiograph 02/17/2022 FINDINGS: Median sternotomy wires are unchanged. Cardiomegaly is noted. Exam is limited by underpenetration. There is an ill-defined faint airspace opacity in the left lower lung. No evidence of pleural effusion or pneumothorax. IMPRESSION: Left lower lung appearing airspace opacity may represent overlying soft tissue versus atelectasis, pneumonia, and/or aspiration. ACT 112: Negative or not required by law. Electronically signed by: Adeel Guthrie M.D. 04/20/2022 2:42 PM EKG - my reading - NSR, artifact, NS ST changes inferior leads, anterior leads Code Status & VTE Plan Code Status full code PG Care Time/CCT Total # of Minutes Spent Total Time Spent with Patient: Total time spent is greater than 50% in coordination of care (as documented) at patient's floor/unit and/or counseling patient: Coding Level of Care Code 80291 Initial Inpt Care Lvl 3 Diagnoses Bilateral arm weakness R29.898 Epididymitis N45.1 Bilateral cellulitis of lower leg L03.116; L03.115 Acute UTI N39.0 Supratherapeutic INR R79.1 Celiac disease K90.0 Morbid obesity E66.01 CAD (coronary atherosclerotic disease) I25.10 HTN (hypertension) I10 Hypertension type: essential hypertension Calcium nephrolithiasis N20.0 Sleep apnea, organic G47.30 H/O mitral valve repair Z98.890 H/O aortic root repair Z98.890 History of CVA (cerebrovascular accident) Z86.73 Hirschsprung's disease Q43.1 Pulmonary emboli I26.99 DM type 2 (diabetes mellitus, type 2) E11.69; Z79.4 Diabetes mellitus assisted insulin use: with local intermodal 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
[2022-04-20] MEDS ORDERED: ACETAMINOPHEN 325 MG TAB PO PRN (18:57)
[2022-04-20] MEDS ORDERED: ONDANSETRON INJ 2 MG/ML 2 ML VIAL IV PRN (18:57)
[2022-04-20] MEDS ORDERED: VANCOMYCIN CONSULT ACTIVE PRN (18:57)
[2022-04-20] MEDS ORDERED: VANCOMYCIN HCL 2,750 MG in SODIUM CHLORIDE 0.9% 500 ML IV ONE (19:30)
[2022-04-20] MEDS ORDERED: DEXTROSE 50% 50 ML SYRINGE IV PRN (19:45)
[2022-04-20] MEDS ORDERED: GLUCOSE 40% GEL 15 GM TUBE PO PRN (19:45)
[2022-04-20] MEDS ORDERED: GLUCAGON FOR INJ 1 MG VIAL IM PRN (19:45)
[2022-04-20] MEDS ORDERED: GLUCOSE 10 TAB/TUBE PO PRN (19:45)
[2022-04-20] MEDS ORDERED: CARBOHYDRATES FOR HYPOGLYCEMIA PO PRN (19:45)
[2022-04-20] MEDS: MAGNESIUM SULFATE / D5W 1 GM/100 ML BAG IV SCH ×2 (19:49→20:50)
--- NOTE | 2022-04-20 20:20 | Pharmacy Report ---
Pharmacy [facility] Short Note - Date of Service April 20, 2022 - Assessment & Plan Assessment 51 year old M started on vancomycin and ceftriaxone for b/l LE cellulitis. PMHx significant for paraplegia, prior endocarditis, T2DM, morbid obesity, CKD III, hx recurrent UTIs. Plan Vancomycin: * Patient received loading dose of vancomycin 2750 mg x 1 (~20 mg/kg/dose) * Patient with paraplegia, therefore adjusted CrCl likely closer to ~64 mg/dL, estimated t1/2~12 hours * Plan to order a random vancomycin level tomorrow morning to better assess clearance before ordering ongoing doses * Estimated level tomorrow AM still >15 mcg/ml Pharmacy will continue to follow and will adjust dose/frequency as necessary. Thank you.
[2022-04-20] MEDS: INSULIN ASPART PER UNIT SC SCH (20:48)
[2022-04-20] MEDS: carvediloL 6.25 MG TAB PO SCH (20:52)
[2022-04-20] MEDS: GABAPENTIN 300 MG CAP PO SCH (20:52)
[2022-04-20] MEDS: NYSTATIN POWDER 15GM BTL EXT SCH (20:53)
[2022-04-20] MEDS ORDERED: LANTUS PER UNIT CHARGE SQ SCH (21:00)
[2022-04-20] MEDS: oxyCODONE HCL IR 30 MG TAB (IMMEDIATE RELEASE) PO SCH (21:03)
[2022-04-21] MEDS ORDERED: GADOBUTROL 65ML VIAL IV ONE (01:03)
[2022-04-21 04:54] LABS: A calco-baum cmplx NotReported Not Detected (NotDetected); Bact fragilis Not Reported Not Detected (NotDetected); C auris Not Reported Not Detected (NotDetected); CTX-M Resistant Gene Not Detected (NotDetected); Calbicans Not Reported Not Detected (NotDetected); Candida glabrata Not Reported Not Detected (NotDetected); Candida krusei Not Reported Not Detected (NotDetected); Cneoformans/gatti Not Reported Not Detected (NotDetected); Cparapsilosis Not Reported Not Detected (NotDetected); Ctropicalis Not Reported Not Detected (NotDetected); E cloacae compx Not Reported Not Detected (NotDetected); Efaecalis Not Reported Not Detected (NotDetected); Efaecium Not Reported Not Detected (NotDetected); Enterobacterales DETECTED (NotDetected); Enterobacterales Not Reported DETECTED (NotDetected); Escherichia coli Not Reported DETECTED (NotDetected); H influenzae Not Reported Not Detected (NotDetected); IMP Resistant Gene Not Detected (NotDetected); K aerogenes Not Reported Not Detected (NotDetected); KPC Resistant Gene Not Detected (NotDetected); Koxytoca Not Reported Not Detected (NotDetected); Kpneumoniae grp Not Reported Not Detected (NotDetected); Lmonocyt Not Reported Not Detected (NotDetected); N meningitidis Not Reported Not Detected (NotDetected); NDM Resistant Gene Not Detected (NotDetected); OXA 48 Like Resistant Gene Not Detected (NotDetected); P aeruginosa Not Reported Not Detected (NotDetected); Proteus spp Not Reported Not Detected (NotDetected); Salmonella spp Not Reported Not Detected (NotDetected); Smarcescens Not Reported Not Detected (NotDetected); Staph lugdunensis Not Reported Not Detected (NotDetected); Staph spp. Not Reported Not Detected (NotDetected); Staphaureus Not Reported Not Detected (NotDetected); Staphepi Not Reported Not Detected (NotDetected); Stenmaltophilia Not Reported Not Detected (NotDetected); Strep agal(GrpB) Not Reported Not Detected (NotDetected); Strep pneum Not Reported Not Detected (NotDetected); Strep pyog (GrpA) Not Reported Not Detected (NotDetected); Strep spp Not Reported Not Detected (NotDetected); VIM Resistant Gene Not Detected (NotDetected); mcr-1 Colistin Resistant Gene Not Detected (NotDetected)
--- NOTE | 2022-04-21 05:50 | Electrocardiogram Report ---
Test Reason : Blood Pressure : / mmHG Vent. Rate : 086 BPM Atrial Rate : 086 BPM P-R Int : 186 ms QRS Dur : 084 ms QT Int : 376 ms P-R-T Axes : 012 021 015 degrees QTc Int : 449 ms Poor data quality, interpretation may be adversely affected Normal sinus rhythm Nonspecific T wave abnormality Abnormal ECG When compared with ECG of 24-FEB-2022 17:16, No significant change was found Confirmed by Hugo Hanson ([id number]) on 04/21/2022 5:49:59 AM Referred By: REFERRED SELF Confirmed By:Hugo Hanson
--- NOTE | 2022-04-21 07:17 | Magnetic Resonance Report ---
MRI OF THE BRAIN COMBO CLINICAL HISTORY: Progressive bilateral upper extremity weakness. COMPARISON STUDY: CT of the brain dated 02/24/2022. TECHNIQUE: MRI of the brain was performed utilizing various T1 and T2-weighted sequences in the axial , sagittal, and coronal planes. Contrast-enhanced sequences were acquired following the administratio n of 13 cc of Gadavist. FINDINGS: Brain parenchyma: Involutional change is advanced for age. Right cerebellar encephalomalacia is uncha nged and consistent with a remote insult. There are also small foci of encephalomalacia involving the high posterior parietal lobe cortex bilaterally, left greater than right. There is extensive T2 sign al abnormality seen throughout the subcortical and periventricular white matter. There is no hemorrha ge or mass effect. There is no restricted diffusion to suggest acute ischemia. No enhancing mass lesi on is identified on the postcontrast images. Leahy-white matter differentiation is preserved. No extra -axial fluid collection is seen. The cerebellar tonsils are normal in configuration. Ventricles, sulci, and cisterns: Prominent secondary to involutional change. Pituitary and sella: Partially empty sella is incidentally noted. Intracranial vasculature: Normal flow voids are maintained at the skull base. Orbits: The bony orbits are grossly intact. Orbital contents are normal in appearance. Sinuses and mastoids: There are trace mastoid effusions. The paranasal sinuses are clear. Calvarium: There is a right occipital rachelle hole. Calvarial marrow signal intensity is heterogeneous. Cervical cord: Partially visualized cervical spinal cord is normal in morphology and signal intensity . IMPRESSION: 1. No acute intracranial abnormality is identified. 2. Chronic and postsurgical changes as above. Correlate with the patient's neurological history. ACT 112: Negative or not required by law. Electronically signed by: Paul Zamarripa M.D. 04/21/2022 7:15 AM
[2022-04-21] MEDS: INSULIN ASPART PER UNIT SC SCH ×4 (08:01→20:29)
[2022-04-21] MEDS: allopurinoL 300 MG TAB PO SCH (08:02)
[2022-04-21] MEDS: FAMOTIDINE 40 MG TABLET PO SCH (08:03)
[2022-04-21] MEDS: carvediloL 6.25 MG TAB PO SCH ×2 (08:03→20:27)
[2022-04-21] MEDS: CHOLECALCIFEROL 1,000 UNITS 25 MCG TAB PO SCH (08:03)
[2022-04-21] MEDS: LANTUS PER UNIT CHARGE SQ SCH ×2 (08:04→20:38)
[2022-04-21] MEDS: GABAPENTIN 300 MG CAP PO SCH ×2 (08:04→20:27)
[2022-04-21] MEDS: NYSTATIN POWDER 15GM BTL EXT SCH ×3 (08:04→20:28)
[2022-04-21] MEDS: cefTRIAXone SODIUM 2,000 MG in DEXTROSE 5% 50 ML IV SCH (08:14)
[2022-04-21] MEDS: oxyCODONE HCL IR 30 MG TAB (IMMEDIATE RELEASE) PO SCH ×3 (08:31→21:46)
--- NOTE | 2022-04-21 09:37 | Pharmacy Report ---
Pharmacy PK ABX Note - Date of Service April 21, 2022 - Assessment and Plan Assessment 51 year old M receiving vancomycin and ceftriaxone for treatment of b/l LE cellulitis, possible CAUTI, and gram negative bacteremia. PMHx significant for paraplegia, prior endocarditis, T2DM, morbid obesity, CKD III, hx recurrent UTIs. Pertinent microbiologic data includes: GNB in 2/4 BC (BCID2 indicates E.coli, no resistance genes identified) and GNB in urine Plan Vancomycin * Patient received a one time dose of Vanc 2750 mg IV 04/20 @ 2029 * Random level obtained 04/21/22 resulted as [] mcg/mL. This is predicted to achieve target AUC/JULIO of 400-600 mg/L.hr * Predicted AUC at steady state: [] mg/L.hr * [Continue] [Change] to [] mg IV every [] hours * Repeat [trough] [random] level ordered for: []/[]/[] OR Will repeat level in the next 48-72 hours if therapy is continued and/or change in patient clinical status Pharmacy will continue to follow and will adjust dose/frequency as necessary. Thank you. Pharmacy has transitioned to AUC monitoring for vancomycin. AUC/JULIO is the preferred PK/PD target and is associated with decreased risk of nephrotoxicity compared to traditional trough targets.
--- NOTE | 2022-04-21 11:37 | Magnetic Resonance Report ---
CLINICAL HISTORY: progressive b/l upper ext weakness TECHNIQUE: MRI of the cervical spine is performed utilizing various T1 and T2 sequences in the axial and sagittal planes. IV contrast was administered for this examination. Comparison: Comparison is made to CT cervical spine 02/24/2022 FINDINGS: The alignment is anatomical. Disks are normal in height and signal. C2-C3: Unremarkable. C3-C4: There is mild bilateral neural foraminal stenosis due to a broad base posterior disc bulge. C4-C5: Large posterior disc bulge is seen with severe canal stenosis, measuring 3 mm in AP diameter. There is moderate bilateral neuroforaminal stenosis at this level. C5-C6: There is a broad-based posterior disc bulge with moderate canal stenosis, AP diameter 7 mm. Fa cet arthropathy results in mild right and severe left neural foraminal stenosis. C6-C7: There is a broad-based posterior disc bulge with moderate canal stenosis, AP diameter 7 mm. Th ere is moderate right and severe left neural foraminal stenosis. C7-T1: Unremarkable. The spinal ligaments are intact, without evidence of disruption or abnormal signal intensity. T2 hype rintensity is noted in the spinal cord most prominent at the level of C4-C5. There is no evidence of an extradural, intradural, extramedullary or intramedullary lesion. Visualized soft tissues are lexie l. Visualized brain parenchyma is normal. IMPRESSION: Multilevel degenerative changes with up to severe canal stenosis with AP diameter of 3 mm, with assoc iated cord edema. No acute cortical infarct is seen. There is up to moderate right and severe left ne ural foraminal stenosis. ACT 112: Negative or not required by law. Electronically signed by: Adeel Guthrie M.D. 04/21/2022 11:36 AM
[2022-04-21] MEDS: LINEZOLID 600 MG/300 ML BAG IV SCH (12:33)
[2022-04-21 12:40] LABS: Hematocrit (blood only) 43.2 % (40.1-51.0); Hemoglobin 13.7 g/dl (14.0-18.0); Mean Corpuscular Hemoglobin 29.1 pg (25.0-34.0); Mean Corpuscular Hgb Conc 31.7 g/dL (32.0-36.0); Mean Corpuscular Volume 91.9 fL (80.0-100.0); Mean Platelet Volume 9.3 fL (9.4-12.4); Platelet Count 152 K/uL (130-400); RDW Standard Deviation 53.9 fL (36.4-46.3); White Blood Count 6.71 K/ul (4.8-10.8)
[2022-04-21 12:43] LABS: Base Excess VBG -1.8 mEq/L; HCO3 VBG 26 mmol/L; Oxygen Saturation VBG 76.9 %; PCO2 VBG 55 mmHg (38-50); PO2 VBG 43 mmHg; pH VBG 7.28 (7.36-7.41)
[2022-04-21 12:56] LABS: BUN Creatinine Ratio 23.8 (10-20); Calcium 8.4 mg/dl (8.5-10.1); Creatinine Clr Calc Pharmacy 122.5 ml/min; Est GFR (African American) 100.8 ml/min; Est GFR (Non-African American) 86.9 ml/min; Magnesium 1.6 mg/dl (1.7-2.4); Potassium 3.6 mmol/L (3.5-5.1)
[2022-04-21 12:59] LABS: Prothrombin Time 39.6 Seconds (9.0-12.0)
--- NOTE | 2022-04-21 21:42 | Hospitalist Progress Note ---
Date of Service April 21, 2022 Assessment & Plan (1) Bilateral arm weakness: Plan: 2nd to severe cervical spine stenosis - culprit likely C4-C5 disease with large herniation present there with cord edema. Accounts for recent EMG showing C5 disease on left. This explains the arm issues. Ideally he would have can surgery for this but with bacteremia, ongoing UTIs, ongoing epididymitis, kidney stone, etc we simply can't operate. [id number] will have Dr Garcia see in consult to go over options. He likely will need tertiary care for this issue - very high risk surgical candidate. (2) Cervical spinal stenosis: Plan: see above discussion (3) Bacteremia: Plan: 2nd GNR - E coli await sensitivities source - urine; could be skin but less likely cont rocephin repeat blood cultures in am kidney stone likely infect as well (4) Epididymitis: Plan: Recent diagnosis earlier this month. s/p cipro x 14+ days since the diagnosis. Had clinically improved and wbc normalized but clearly he did not resolve the issue with +blood cultures and +urine cx again. Cont rocephin. Changing vanco to zyvox to cover cellulitis of legs. No funguria at this time fortunately (has had c glabrata in the past). (5) Bilateral cellulitis of lower leg: Plan: Improving Cont Rocephin Change vancomycin IV to zyvox. (6) Acute UTI: Plan: Catheter-associated UTI. 2nd to GNR. Had pike placed early February, then replaced late March. Follow culture. Rocephin for now. Kidney stone is likely acting as the nidus for recurrent UTIs. (7) Supratherapeutic INR: Plan: Likely due to recent cipro usage. Cont to Hold coumadin. INR in am. (8) Celiac disease: Plan: Recent diagnosis by his PCP. Via antibody testing?? Place on gluten free diet. (9) Morbid obesity: Plan: BMI 46 (10) CAD (coronary atherosclerotic disease): Plan: No ischemic symptoms at this time. Continue coreg 6.25mg BID. Not on a statin agent or aspirin. (11) HTN (hypertension): Plan: Controlled. Cont coreg. (12) Calcium nephrolithiasis: Plan: CT abd/pelvis (see HPI) at [facility] within the last week. Is scheduled for intervention of his stones later in April. now with UTI again. (13) Sleep apnea, organic: Plan: Does not use any device. Having mild resp acidosis - counseled patient he must use BIPAP at HS for this problem. (14) H/O mitral valve repair: Plan: noted (15) H/O aortic root repair: Plan: noted (16) History of CVA (cerebrovascular accident): Plan: noted see MRI brain from this admission (shows his old CVAs) with resulting paraplegia (17) Hirschsprung's disease: Plan: s/p subtotal colectomy with ileostomy formation. (18) Pulmonary emboli: Plan: history of. INR >4 - hold coumadin, INR am. (19) DM type 2 (diabetes mellitus, type 2): Plan: a1c 8.1% in 2020. cont lantus BID. cont novolog - correction 12, carb ratio 1:4. (20) Paraplegia: Plan: acquired, 2nd to stroke (21) Hypomagnesemia: Plan: repleted repeat mag level am (22) Chronic pain syndrome: Plan: on oxycodone 30mg TID has been on narcotics for several years in light of ANIBAL and resp acidosis he must use BIPAP to this will be ongoing issue (23) Acute respiratory acidosis: Plan: BIPAP as above Plan updated pt's brother Mamadou ([phone]) this evening extensive update given Admission and Anticipated Discharge Date Admission Date: April 20, 2022 Subjective patient drowsy today VBG checked - resp acidosis - BIPAP ordered; only wore for a few minutes then pulled mask off used to be on BIPAP at home - unit got recalled, never got a new unit patient anxious about everything going on but we talked about his c-spine MRI and he is somewhat relieved now that we know that the neck is the cause of b/l arm weakness eating ok drinking ok has chronic neck pain but unchanged arm weakness b/l unchanged reports he has had a "band" like discomfort across his lower abdomen recently Review of Systems Review of Systems: gen - no fevers pulm - no dyspnea GI - see HPI psych - anxious neuro - no headache Physical Exam Physical Exam: gen - morbidly obese, NAD, awake/alert; heavy Hines accent and slightly slurry (probably due to high CO2 level) HENT - MMM, no lesions neck - no JVD heart - RRR, s1 s2, 1/6 [place] LSB lungs - decreased BS b/l bases; no wheezes or rales abd - distended, BS+, multiple scars present,ileostomy with brown stool right lower abdomen, NT ext - 3+ edema b/l, pulses 2+ b/l skin - erythema of b/l shins - improved today; occasional papules/pustules on shins; intertrigo lower abdomen (candidal) psych - a/o x 3 but groggy Results & Data Results & Data ([facility]) Vital Signs (Past 12 Hours) Vital Signs Temp Pulse Pulse Resp BP Pulse Ox O2 Del Method 04/21/22 20:40 36.7 C 87 22 163/93 H 94 Room Air 04/21/22 16:00 74 04/21/22 15:39 36.4 C L 74 18 124/82 94 Room Air 04/21/22 13:44 78 17 97 04/21/22 12:16 87 04/21/22 12:16 Room Air 04/21/22 11:04 36.7 C 83 18 124/80 94 Room Air FiO2 04/21/22 20:40 04/21/22 16:00 04/21/22 15:39 04/21/22 13:44 21 04/21/22 12:16 04/21/22 12:16 04/21/22 11:04 Laboratory Results Laboratory Results - last 24 hr 04/20/22 04/21/22 04/21/22 15:08 07:23 11:26 WBC RBC Hgb Hct MCV MCH MCHC RDW Std Deviation RDW Coeff of Lorenzo Plt Count MPV PT INR VBG pH VBG pCO2 VBG pO2 VBG HCO3 VBG O2 Saturation VBG Base Excess Sodium Potassium Chloride Carbon Dioxide Anion Gap BUN Creatinine Est Cr Clr Drug Dosing Est GFR ( Amer) Est GFR (Non-Af Amer) BUN/Creatinine Ratio Glucose POC Glucose 116 H 113 H Calcium Magnesium Ammonia TSH Enterobacterales (PCR) DETECTED A E. coli (PCR) DETECTED A mcr-1 Colistin Res Gene PCR Not Detected blaIMP Car res Gene PCR Not Detected KPC-Carbap Res Gene PCR Not Detected blaNDM Car Res Gene PCR Not Detected OXA-48 Carbapenem Resis Gene (PCR) Not Detected blaVIM Car Res Gene PCR Not Detected CTX-M Gene Resistance (PCR) Not Detected Bld Cult ID Panel PCR See PCR Comment 04/21/22 04/21/22 04/21/22 12:06 12:06 12:06 WBC 6.71 RBC 4.70 Hgb 13.7 L Hct 43.2 MCV 91.9 MCH 29.1 MCHC 31.7 L RDW Std Deviation 53.9 H RDW Coeff of Lorenzo 16.0 H Plt Count 152 MPV 9.3 L PT 39.6 H INR 4.0 H VBG pH VBG pCO2 VBG pO2 VBG HCO3 VBG O2 Saturation VBG Base Excess Sodium 136 Potassium 3.6 Chloride 106 Carbon Dioxide 25 Anion Gap 5 BUN 24 H Creatinine 1.01 D Est Cr Clr Drug Dosing 122.5 Est GFR ( Amer) 100.8 Est GFR (Non-Af Amer) 86.9 BUN/Creatinine Ratio 23.8 H Glucose 123 H POC Glucose Calcium 8.4 L Magnesium 1.6 L Ammonia TSH Enterobacterales (PCR) E. coli (PCR) mcr-1 Colistin Res Gene PCR blaIMP Car res Gene PCR KPC-Carbap Res Gene PCR blaNDM Car Res Gene PCR OXA-48 Carbapenem Resis Gene (PCR) blaVIM Car Res Gene PCR CTX-M Gene Resistance (PCR) Bld Cult ID Panel PCR 04/21/22 04/21/22 04/21/22 12:06 12:31 12:31 WBC RBC Hgb Hct MCV MCH MCHC RDW Std Deviation RDW Coeff of Lorenzo Plt Count MPV PT INR VBG pH 7.28 L VBG pCO2 55 H VBG pO2 43 VBG HCO3 26 VBG O2 Saturation 76.9 VBG Base Excess -1.8 Sodium Potassium Chloride Carbon Dioxide Anion Gap BUN Creatinine Est Cr Clr Drug Dosing Est GFR ( Amer) Est GFR (Non-Af Amer) BUN/Creatinine Ratio Glucose POC Glucose Calcium Magnesium Ammonia 29.0 TSH 1.827 Enterobacterales (PCR) E. coli (PCR) mcr-1 Colistin Res Gene PCR blaIMP Car res Gene PCR KPC-Carbap Res Gene PCR blaNDM Car Res Gene PCR OXA-48 Carbapenem Resis Gene (PCR) blaVIM Car Res Gene PCR CTX-M Gene Resistance (PCR) Bld Cult ID Panel PCR 04/21/22 04/21/22 16:01 20:19 WBC RBC Hgb Hct MCV MCH MCHC RDW Std Deviation RDW Coeff of Lorenzo Plt Count MPV PT INR VBG pH VBG pCO2 VBG pO2 VBG HCO3 VBG O2 Saturation VBG Base Excess Sodium Potassium Chloride Carbon Dioxide Anion Gap BUN Creatinine Est Cr Clr Drug Dosing Est GFR ( Amer) Est GFR (Non-Af Amer) BUN/Creatinine Ratio Glucose POC Glucose 145 H 171 H Calcium Magnesium Ammonia TSH Enterobacterales (PCR) E. coli (PCR) mcr-1 Colistin Res Gene PCR blaIMP Car res Gene PCR KPC-Carbap Res Gene PCR blaNDM Car Res Gene PCR OXA-48 Carbapenem Resis Gene (PCR) blaVIM Car Res Gene PCR CTX-M Gene Resistance (PCR) Bld Cult ID Panel PCR Diagnostic Findings blood cx's - GNR urine cx - GNR PG Care Time/CCT Total # of Minutes Spent Total Time Spent with Patient: Total time spent is greater than 50% in coordination of care (as documented) at patient's floor/unit and/or counseling patient: Coding Level of Care Code 00921 Subseq Hosp Care Lvl 3 Diagnoses Bilateral arm weakness R29.898 Cervical spinal stenosis M48.02 Bacteremia R78.81 Epididymitis N45.1 Bilateral cellulitis of lower leg L03.116; L03.115 Acute UTI N39.0 Supratherapeutic INR R79.1 Celiac disease K90.0 Morbid obesity E66.01 CAD (coronary atherosclerotic disease) I25.10 HTN (hypertension) I10 Hypertension type: essential hypertension Calcium nephrolithiasis N20.0 Sleep apnea, organic G47.30 H/O mitral valve repair Z98.890 H/O aortic root repair Z98.890 History of CVA (cerebrovascular accident) Z86.73 Hirschsprung's disease Q43.1 Pulmonary emboli I26.99 DM type 2 (diabetes mellitus, type 2) E11.69; Z79.4 Diabetes mellitus complication status: with other specified complication Diabetes mellitus medical terminologist insulin use: with medical terminologist use Paraplegia G82.20 Hypomagnesemia E83.42 Chronic pain syndrome G89.4 Acute respiratory acidosis E87.2 (1) DM type 2 (diabetes mellitus, type 2) Diabetes mellitus complication status: with other specified complication Diabetes mellitus [facility] insulin use: with [facility] use Qualified Code(s): E11.69 - Type 2 diabetes mellitus with other specified complication; 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
[2022-04-22] MEDS: LINEZOLID 600 MG/300 ML BAG IV SCH ×3 (00:54→23:45)
[2022-04-22 07:19] LABS: INR 3.8 (0.9-1.1); Prothrombin Time 38.1 Seconds (9.0-12.0)
[2022-04-22 07:21] LABS: BUN Creatinine Ratio 17.9 (10-20); Calcium 8.4 mg/dl (8.5-10.1); Creatinine Clr Calc Pharmacy 116.2 ml/min; Magnesium 1.4 mg/dl (1.7-2.4); Potassium 3.4 mmol/L (3.5-5.1)
[2022-04-22] MEDS: cefTRIAXone SODIUM 2,000 MG in DEXTROSE 5% 50 ML IV SCH (08:35)
[2022-04-22] MEDS: NYSTATIN POWDER 15GM BTL EXT SCH ×3 (08:37→22:31)
[2022-04-22] MEDS: LANTUS PER UNIT CHARGE SQ SCH ×2 (08:41→20:50)
[2022-04-22] MEDS: INSULIN ASPART PER UNIT SC SCH ×4 (08:41→20:49)
[2022-04-22] MEDS: GABAPENTIN 300 MG CAP PO SCH ×2 (09:37→20:32)
[2022-04-22] MEDS: carvediloL 6.25 MG TAB PO SCH ×2 (09:37→20:32)
[2022-04-22] MEDS: CHOLECALCIFEROL 1,000 UNITS 25 MCG TAB PO SCH (09:37)
[2022-04-22] MEDS: oxyCODONE HCL IR 30 MG TAB (IMMEDIATE RELEASE) PO SCH ×3 (09:37→20:33)
[2022-04-22] MEDS: allopurinoL 300 MG TAB PO SCH (09:37)
[2022-04-22] MEDS: FAMOTIDINE 40 MG TABLET PO SCH (09:37)
[2022-04-22] MEDS ORDERED: POTASSIUM CHLORIDE CRTAB 20 MEQ TABCR PO STA (09:52)
[2022-04-22] MEDS: MAGNESIUM SULFATE / D5W 1 GM/100 ML BAG IV SCH ×3 (10:12→14:01)
--- NOTE | 2022-04-22 10:27 | Orthopedic Consultation ---
Date of Consultation April 22, 2022 Assessment & Plan (1) Myelopathy concurrent with and due to spinal stenosis of cervical region: Assessment strenuous pulposis C4-C5 with severe spinal stenosis and myelopathy. Plan at this time at length discussion today with the patient reviewing his cervical spine MRI results. I am recommending that he undergo an urgent cervical decompression once he is cleared of his bacteremia. He understands agrees. He understands results will most likely require a tertiary care center in light of his multiple multiple health issues. History of Present Illness Reason for Consultation: Left arm weakness Attending Physician: Sanjiv Avendano History of Present Illness This is a 51-year-old male with significant medical history. His concern most recently is increased weakness to the left upper extremity particularly his hand. He has a history of embolic stroke with significant deficit involving the right upper extremity. He is up paraplegic as well. But with the current disuse of his left upper extremity is no longer able to manipulate his wheelchair or vehicle. He describes significant numbness in the hand but no radicular pain. Allergies Allergy/AdvReac Type Severity Reaction Status Date / Time sulfamethoxazole AdvReac Unknown "Levels Verified 02/17/22 00:49 [From Bactrim] were up"-per [facility] trimethoprim [From Bactrim] AdvReac Unknown "Levels Verified 02/17/22 00:49 were up"-per [facility] Home Medications Medication Instructions Recorded Confirmed Type insulin aspart U-100 100 unit/mL 0 unit subcut TIDM per sliding 10/08/18 02/24/22 History (3 mL) subcutaneous pen (Novolog scale Flexpen U-100 Insulin aspart) gabapentin 300 mg capsule See Rx Instructions .Route .COMPLEX 01/14/19 02/24/22 History famotidine 40 mg tablet (Pepcid) 40 mg PO QAM 05/27/19 02/24/22 History allopurinol 300 mg tablet 300 mg PO QAM 01/23/20 02/24/22 History cholecalciferol (vitamin D3) 25 25 mcg PO DAILY 01/23/20 02/24/22 History mcg (1,000 unit) capsule insulin glargine U-300 conc 300 50 unit subcut BID 08/10/21 02/24/22 History unit/mL (1.5 mL) subcutaneous pen (Toujeo SoloStar U-300 Insulin) warfarin 2.5 mg tablet 2.5 mg PO DAILY 08/13/21 02/24/22 History carvedilol 6.25 mg tablet 6.25 mg PO BID #60 tabs 09/30/21 02/24/22 Rx finerenone 10 mg tablet (Kerendia) 10 mg PO DAILY 12/29/21 02/24/22 History cyclobenzaprine 10 mg tablet 10 mg PO BID PRN muscle spasm #20 02/17/22 02/24/22 Rx tabs amoxicillin 875 mg-potassium 1 tab PO BID 02/24/22 02/24/22 History clavulanate 125 mg tablet clotrimazole-betamethasone 1 1 applic topical BID PRN affected 02/24/22 02/24/22 History %-0.05 % topical cream area nystatin 100,000 unit/gram topical 1 applic topical BID 02/24/22 02/24/22 History powder oxycodone 30 mg tablet 30 mg PO TID 02/24/22 02/24/22 History ciprofloxacin HCl 500 mg tablet 500 mg PO BID #10 tabs 04/02/22 Rx (Cipro) Patient History Medical History Celiac disease Chronic kidney disease, stage 3a follows with [facility] Coronary artery disease CABG x 1 2012-VG to LAD, multiple stents, follows with [facility] Diastolic congestive heart failure EF 55-59% Difficult airway for intubation 01/18/22 Patient unable to be intubated with Glidescope 4 - good view but unable to pass ETT, Igel #5 easily placed and worked well DM type 2 (diabetes mellitus, type 2) IDDM GI bleed 2018 requiring 3 blood transfusions, transferred to [facility] with work-up not revealing clear cause per records Gout Hepatitis C TREATED Hirschsprung's disease History of blood transfusion 2018 in setting of GI bleed History of COVID-19 05/2021- no symptoms- no hospitalization History of CVA (cerebrovascular accident) 2012-admitted [facility] History of endocarditis TREATED AT [facility] PRES[facility]-2012 History of intravenous drug abuse Hyperlipidemia Morbid obesity Paraplegia Pulmonary emboli 05/2010-unknown cause- admitted and treated at [facility] Pulmonary hypertension Sleep apnea, organic NO DEVICE AT THIS TIME, HIS MACHINE WAS INVOLVED IN RECALL Surgical History H/O aortic root repair 05/2016- [facility] H/O mitral valve repair UNSURE-[facility] Hx of CABG 2012 [facility] PRES- DUE TO ENDOCARDITIS, single vessel per records S/P brain surgery 2013- [facility] S/P cardiac cath S/P colostomy FOLLOWS W/ [facility] Family History Father Cardiac disorder Hypertension Prostate cancer Diabetes Coronary heart disease COPD (chronic obstructive pulmonary disease) Pacemaker Mother Hypertension Skin cancer Dementia Social History Smoking Status: Former smoker Tobacco Type: Cigarettes Second Hand Exposure: No; Do You Dip or Chew Tobacco: No; Tobacco Cessation Education Requested by Patient: No Hx Alcohol Use: No Hx Substance Use: Yes Last Used Substance: Hours (ago) Last Used Substance Other:: LAST NIGHT Preferred Language: Montserratian Communication Ability: Effective Tapper Hand Required: No Beliefs That Will Affect Care: None marital status: Current Living Situation: Parent Current Living Situation Comment: PT HAS CAREGIVER AND LIVES W/ PARENTS ([place]) current occupational status: employed 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 He has no intrinsic function. Sensory is diminished. He has a markedly positive Kalpesh sign. Results & Data ([facility]) Vital Signs (Past 12 Hours) Vital Signs Temp Pulse Pulse Resp BP BP Pulse Ox 04/22/22 08:44 80 04/22/22 07:34 37.0 C 73 18 130/82 95 04/22/22 04:03 36.5 C 82 17 126/80 94 04/21/22 23:59 88 04/21/22 23:19 36.7 C 88 12 151/87 H 92 04/21/22 22:41 O2 Del Method 04/22/22 08:44 04/22/22 07:34 Room Air 04/22/22 04:03 Room Air 04/21/22 23:59 04/21/22 23:19 Room Air 04/21/22 22:41 Room Air
--- NOTE | 2022-04-22 19:59 | Hospitalist Progress Note ---
Date of Service April 22, 2022 Assessment & Plan (1) Bilateral arm weakness: Plan: 2nd to severe cervical spine stenosis - culprit likely C4-C5 disease with large herniation present there with cord edema. Accounts for recent EMG showing C5 disease on left. Ideally he would have can surgery for this but with bacteremia, ongoing UTIs, ongoing epididymitis, kidney stone, etc we simply can't operate. Appreciate Dr Garcia's consultation - he agrees urgent surgery at a tertiary care center would be ideal given the progressive weakness & myelopathy. Needs tertiary care for this issue - very high risk surgical candidate, h/o difficult intubation, etc. (2) Cervical spinal stenosis: Plan: see above discussion (3) Bacteremia: Plan: 2nd E coli source - urine cont rocephin repeat blood cultures sent and are pending kidney stone likely infected as well (4) Epididymitis: Plan: Recent diagnosis earlier this month. s/p cipro x 14+ days since the diagnosis. Had clinically improved and wbc normalized but clearly he did not resolve the issue with +blood cultures and +urine cx again. the e.coli is resistant to cipro hence why he did not sterilize the urinary tract. Cont rocephin. No funguria at this time fortunately (has had c glabrata in the past). (5) Bilateral cellulitis of lower leg: Plan: Improving Cont Rocephin Cont zyvox. (6) Acute UTI: Plan: Catheter-associated UTI. 2nd to e.coli. Had pike placed early February, then replaced late March. Cont Rocephin. Kidney stone is likely acting as the nidus for recurrent UTIs. This was scheduled to be intervened on late in April by Dr An, Urology, at [facility] - but ideally intervention is much sooner given the ongoing infection & now bacteremia. (7) Supratherapeutic INR: Plan: Likely due to recent cipro usage. Cont to Hold coumadin. INR still >3. INR in am. (8) Celiac disease: Plan: Recent diagnosis by his PCP. Via antibody testing?? Cont gluten free diet. (9) Morbid obesity: Plan: BMI 45-50 (10) CAD (coronary atherosclerotic disease): Plan: No ischemic symptoms at this time. Continue coreg 6.25mg BID. Not on a statin agent or aspirin. (11) HTN (hypertension): Plan: Controlled. Cont coreg. (12) Calcium nephrolithiasis: Plan: CT abd/pelvis (see HPI) at [facility] within the last week. Large left sided stone. Is scheduled for intervention of his stones later in April. now with UTI again. earlier intervention on the stone needed - likely to keep having more UTI. (13) Sleep apnea, organic: Plan: Does not use any device. Having mild resp acidosis - counseled patient he must use BIPAP at HS for this problem. he promises to use the BIPAP tonight. (14) H/O mitral valve repair: Plan: noted (15) H/O aortic root repair: Plan: noted (16) History of CVA (cerebrovascular accident): Plan: noted see MRI brain from this admission (shows his old CVAs) with resulting paraplegia (17) Hirschsprung's disease: Plan: s/p subtotal colectomy with ileostomy formation. no issues with ostomy (18) Pulmonary emboli: Plan: history of. INR >3 - hold coumadin, INR am. (19) DM type 2 (diabetes mellitus, type 2): Plan: a1c 8.1% in 2020. cont lantus BID. cont novolog - correction 12, carb ratio 1:4. (20) Paraplegia: Plan: acquired, 2nd to stroke (21) Hypomagnesemia: Plan: repleted but still low give additional mag sulfate IV today repeat mag level am (22) Chronic pain syndrome: Plan: on oxycodone 30mg TID has been on narcotics for several years in light of ANIBAL and resp acidosis he must use BIPAP to this will be ongoing issue (23) Acute respiratory acidosis: Plan: BIPAP as above Plan updated pt's brother Mamadou ([phone]) this evening as well as yesterday evening extensive update given in light of refractory/recurrent UTI and now bacteremia ALONG WITH severe C4-C5 spinal stenosis causing myelopathy and progressive arm/hand weakness he really needs transfer to [facility] for urgent intervention of stones, sterilization of his urine and blood, and then intervention of his cervical spine he depends on his left hand for nearly all ADLS and loss of this would lead to quadriplegia (was driving up until a few months ago, fed himself independently, etc) will call [facility] first thing in am Admission and Anticipated Discharge Date Admission Date: April 20, 2022 Subjective no new issues overnight eating ok - needing assistance to feed due to b/l arm and hand weakness did not use the BIPAP overnight but promises to use it tonight Dr Garcia saw in consult - agrees that C4-C5 has severe stenosis - needs urgent decompression but cannot due so due bacteremia etc tertiary care referral for surgery advised tele overnight wnl Review of Systems Review of Systems: gen - no fevers or chills cv - no pain pulm - no cough, no dyspnea GI - no vomiting - pike draining clear yellow urine neuro - weakness of arms/hands about the same Physical Exam Physical Exam: gen - morbidly obese, NAD, awake/alert; heavy [place] accent and slightly slurry speech but unchanged from prior exam HENT - MMM, no lesions neck - no JVD heart - RRR, s1 s2, 1/6 [place] LSB lungs - decreased BS b/l bases; no wheezes or rales abd - distended but unchanged; BS+, multiple scars present, ileostomy with brown stool right lower abdomen, NT ext - 2-3+ edema b/l, pulses 2+ b/l skin - erythema of b/l shins - again improved today; occasional papules/pustules on shins; intertrigo lower abdomen (candidal) unchanged - left testicular and epididymis swollen but not as erythematous on the scrotum, less swelling than previous psych - a/o x 3 today Results & Data Results & Data ([facility]) Vital Signs (Past 12 Hours) Vital Signs Temp Pulse Pulse Resp BP Pulse Ox O2 Del Method 04/22/22 19:00 36.9 C 92 H 16 143/84 H 90 Room Air 04/22/22 16:30 81 04/22/22 15:40 36.6 C 79 20 144/82 H 93 04/22/22 12:52 36.7 C 82 21 142/76 H 93 04/22/22 08:44 80 Laboratory Results Laboratory Results - last 24 hr 04/21/22 04/22/22 04/22/22 20:19 06:09 06:09 PT 38.1 H INR 3.8 H Sodium 133 L Potassium 3.4 L Chloride 103 Carbon Dioxide 25 Anion Gap 5 BUN 19 Creatinine 1.06 Est Cr Clr Drug Dosing 116.2 Est GFR ( Amer) 95.0 Est GFR (Non-Af Amer) 82.0 BUN/Creatinine Ratio 17.9 Glucose 135 H POC Glucose 171 H Calcium 8.4 L Magnesium 1.4 L 04/22/22 04/22/22 04/22/22 07:24 11:13 16:11 PT INR Sodium Potassium Chloride Carbon Dioxide Anion Gap BUN Creatinine Est Cr Clr Drug Dosing Est GFR ( Amer) Est GFR (Non-Af Amer) BUN/Creatinine Ratio Glucose POC Glucose 118 H 110 H 148 H Calcium Magnesium Diagnostic Findings blood cx's - e.coli, sens to rocephin/ertapenem urine cx - e.coli, sens to rocephin/ertapenem PG Care Time/CCT Total # of Minutes Spent Total Time Spent with Patient: Total time spent is greater than 50% in coordination of care (as documented) at patient's floor/unit and/or counseling patient: Coding Level of Care Code 73078 Subseq Hosp Care Lvl 3 Diagnoses Bilateral arm weakness R29.898 Cervical spinal stenosis M48.02 Bacteremia R78.81 Epididymitis N45.1 Bilateral cellulitis of lower leg L03.116; L03.115 Acute UTI N39.0 Supratherapeutic INR R79.1 Celiac disease K90.0 Morbid obesity E66.01 CAD (coronary atherosclerotic disease) I25.10 HTN (hypertension) I10 Hypertension type: essential hypertension Calcium nephrolithiasis N20.0 Sleep apnea, organic G47.30 H/O mitral valve repair Z98.890 H/O aortic root repair Z98.890 History of CVA (cerebrovascular accident) Z86.73 Hirschsprung's disease Q43.1 Pulmonary emboli I26.99 DM type 2 (diabetes mellitus, type 2) E11.69; Z79.4 Diabetes mellitus complication status: with other specified complication Diabetes mellitus intermediate designer insulin use: with alf use Paraplegia G82.20 Hypomagnesemia E83.42 Chronic pain syndrome G89.4 Acute respiratory acidosis E87.2 (1) DM type 2 (diabetes mellitus, type 2) Diabetes mellitus complication status: with other specified complication Diabetes mellitus intermediate designer insulin use: with alf use Qualified Code(s): E11.69 - Type 2 diabetes mellitus with other specified complication; Z79.4 - nursing home (current) use of insulin (2) HTN (hypertension) Hypertension type: essential hypertension Qualified Code(s): I10 - Essential (primary) hypertension
[2022-04-23 07:37] LABS: BUN Creatinine Ratio 13.1 (10-20); Calcium 8.4 mg/dl (8.5-10.1); Creatinine Clr Calc Pharmacy 116.6 ml/min; Est GFR (Non-African American) 81.1 ml/min; Magnesium 1.6 mg/dl (1.7-2.4); Potassium 3.5 mmol/L (3.5-5.1)
[2022-04-23 07:54] LABS: INR 2.6 (0.9-1.1); Prothrombin Time 26.5 Seconds (9.0-12.0)
[2022-04-23] MEDS: FAMOTIDINE 40 MG TABLET PO SCH (08:27)
[2022-04-23] MEDS: GABAPENTIN 300 MG CAP PO SCH ×2 (08:27→22:22)
[2022-04-23] MEDS: allopurinoL 300 MG TAB PO SCH (08:28)
[2022-04-23] MEDS: CHOLECALCIFEROL 1,000 UNITS 25 MCG TAB PO SCH (08:28)
[2022-04-23] MEDS: NYSTATIN POWDER 15GM BTL EXT SCH ×3 (08:28→22:23)
[2022-04-23] MEDS: carvediloL 6.25 MG TAB PO SCH ×2 (08:28→22:23)
[2022-04-23] MEDS: INSULIN ASPART PER UNIT SC SCH ×4 (08:42→20:21)
[2022-04-23] MEDS: cefTRIAXone SODIUM 2,000 MG in DEXTROSE 5% 50 ML IV SCH (08:42)
[2022-04-23] MEDS: LANTUS PER UNIT CHARGE SQ SCH ×2 (08:42→20:21)
[2022-04-23] MEDS: oxyCODONE HCL IR 30 MG TAB (IMMEDIATE RELEASE) PO SCH ×4 (08:45→22:22)
[2022-04-23] MEDS: ERTAPENEM SODIUM 1,000 MG in SYRINGE 0 ML IV SCH (09:55)
[2022-04-23] MEDS: LINEZOLID 600 MG/300 ML BAG IV SCH (12:20)
--- NOTE | 2022-04-23 20:15 | Hospitalist Progress Note ---
Date of Service April 23, 2022 Assessment & Plan (1) Bacteremia: Plan: 2nd E coli source - urine improved change rocephin to once-daily IV ertapenem today as urine culture also grew ESBL Klebsiella (in addition to e.coli) the IV ertapenem will easily cover the e.coli repeat blood cultures from 04/22 thus far negative left-sided kidney stone likely infected and acting as a nidus for ongoing recurrent UTIs (2) Catheter-associated urinary tract infection: Plan: 2nd to e.coli AND ESBL klebsiella Had pike placed early February, then replaced late March. stop rocephin change to IV ertapenem - it will cover both pathogens Kidney stone is likely acting as the nidus for recurrent UTIs. This was scheduled to be intervened on late in April by Dr An, Urology, at [facility] - but ideally intervention is much sooner given the ongoing infection & now bacteremia. I called [facility] today and patient was accepted in transfer -- won't be for a few days, however. (3) Bilateral arm weakness: Plan: 2nd to severe cervical spine stenosis - culprit likely C4-C5 disease with large herniation present there with cord edema. Accounts for recent EMG showing C5 disease on left. Ideally he would have can surgery for this but with bacteremia, ongoing UTIs, ongoing epididymitis, kidney stone, etc we simply can't operate right now. Appreciate Dr Garcia's consultation - he agrees urgent surgery at a tertiary care center would be ideal given the progressive weakness & myelopathy. Needs tertiary care for this issue - very high risk surgical candidate, h/o difficult intubation, etc. Called and spoke with [facility] today - accepted in transfer - MRI brain & c-spine pushed via PACS to [facility]. (4) Cervical spinal stenosis: Plan: see above discussion consider adding 3rd dose of gabapentin mid-afternoon in addition to AM and PM doses (5) Epididymitis: Plan: Recent diagnosis earlier this month. s/p cipro x 14+ days since the diagnosis. Had clinically improved and wbc normalized but clearly he did not resolve the issue with +blood cultures and +urine cx again. the e.coli is resistant to cipro hence why he did not sterilize the urinary tract. Change rocephin to ertapenem IV as above No funguria at this time fortunately (has had c glabrata in the past). (6) Bilateral cellulitis of lower leg: Plan: Improving Previously on IV vanco --> now IV zyvox Day #4 of IV therapy for cellulitis Could potentially change to PO zyvox tomorrow for 3 more days (Plan 7 days in total) Ertapenem as above for urine/blood will also provider gram neg coverage if cellulitis is gram neg in etiology (7) Supratherapeutic INR: Plan: Likely due to recent cipro usage. Cont to Hold coumadin. Would not resume coumadin since we are aiming for transfer to [facility] and he will need surgery for stone and/or c-spine. Once INR is <2 would start heparin drip in jone of coumadin. (8) Celiac disease: Plan: Recent diagnosis by his PCP. Via antibody testing?? Cont gluten free diet. (9) Morbid obesity: Plan: BMI 45-50 (10) CAD (coronary atherosclerotic disease): Plan: No ischemic symptoms at this time. Continue coreg 6.25mg BID. Not on a statin agent or aspirin. (11) HTN (hypertension): Plan: Controlled. Cont coreg. (12) Calcium nephrolithiasis: Plan: CT abd/pelvis (see HPI) at [facility] within the last week. Large left sided stone. Is scheduled for intervention of his stones later in April. now with UTI again. earlier intervention on the stone needed - likely to keep having more UTI. see above discussions. (13) Sleep apnea, organic: Plan: Does not use any device at home. Having mild resp acidosis - counseled patient he must use BIPAP at HS for this problem. He is being more compliant now with BIPAP over last few days. (14) H/O mitral valve repair: Plan: noted (15) H/O aortic root repair: Plan: noted (16) History of CVA (cerebrovascular accident): Plan: noted see MRI brain from this admission (shows his old CVAs) with resulting paraplegia (17) Hirschsprung's disease: Plan: s/p subtotal colectomy with ileostomy formation. no issues with ostomy (18) Pulmonary emboli: Plan: history of. holding coumadin. once INR is <2 start heparin drip. (19) DM type 2 (diabetes mellitus, type 2): Plan: a1c 8.1% in 2020. cont lantus BID. cont novolog - correction 12, carb ratio 1:4. controlled. (20) Paraplegia: Plan: acquired, 2nd to stroke now with b/l arm weakness 2nd c-spine spinal stenosis as above (21) Hypomagnesemia: Plan: repleted but still low give additional mag sulfate IV today repeat mag level am (22) Chronic pain syndrome: Plan: on oxycodone 30mg TID has been on narcotics for several years in light of ANIBAL and resp acidosis he must use BIPAP to this will be ongoing issue (23) Acute respiratory acidosis: Plan: BIPAP Plan updated pt's brother Mamadou ([phone]) several times this week left message for his brother on voicemail this evening in light of refractory/recurrent UTI and now bacteremia ALONG WITH severe C4-C5 spinal stenosis causing myelopathy and progressive arm/hand weakness he needs transfer to [facility] for urgent intervention of stones, sterilization of his urine and blood, and then intervention of his cervical spine he depends on his left hand for nearly all ADLS and loss of this would lead to quadriplegia (was driving up until a few months ago, fed himself independently, etc) patient accepted at [facility] today no bed for minimum 2-3 days AND needs insurance auth social work made aware - they have requested expedited insurance approval with his [facility] insurance patient aware total time today with complex care coordination 65 minutes including about 30 minutes of phone calls with [facility] Admission and Anticipated Discharge Date Admission Date: April 20, 2022 Subjective no new complaints or issues he DID use BIPAP overnight for ANIBAL I called and spoke with Dr Andrey Paz, oncall triage officer at [facility], to request transfer of Mr Grajeda for intervention on his L kidney stone (was scheduled to have operation on this as outpatient at [facility] in late April) as well as ortho/neurosurg consultation for his severe C4-C5 spinal stenosis w/ myelopathy Dr Paz accepted Mr Grajeda in transfer several hours later I received a call back from [facility] no beds for at least 2-3 days further, he will need insurance auth as he has [facility] insurance during rounds I discussed all of the above with Mr Grajeda late in the day I also left a message for his brother, Mamadou, with an update re: the potential transfer in a few days Mr Grajeda today complained of ongoing neck pain and b/l arm pain, much worse on left arm; pain in left arm travels down most of the arm weakness in arms is unchanged no dyspnea ostomy output about baseline eating with assistance Review of Systems Review of Systems: gen - no fevers cv - no pain pulm - no cough GI - no vomiting Physical Exam Physical Exam: gen - morbidly obese, NAD, awake/alert; heavy [place] accent; looks good today HENT - MMM, no lesions neck - no JVD heart - RRR, s1 s2, 1/6 [place] LSB lungs - decreased BS b/l bases; no wheezes or rales abd - distended (baseline); BS+, multiple scars present, ileostomy with brown stool right lower abdomen, NT ext - 2-3+ edema b/l, pulses 2+ b/l skin - erythema of b/l shins - again improved today; occasional papules/pustules on shins; no warmth to touch of either garcias despite mild erythema; intertrigo lower abdomen improved psych - a/o x 3 Results & Data Results & Data ([facility]) Vital Signs (Past 12 Hours) Vital Signs Temp Pulse Resp BP Pulse Ox O2 Del Method 04/23/22 19:00 36.7 C 90 20 123/85 96 Room Air 04/23/22 15:10 36.4 C L 83 21 131/84 93 04/23/22 11:10 36.7 C 80 20 124/83 96 Room Air Laboratory Results Laboratory Results - last 24 hr 04/23/22 04/23/22 04/23/22 06:27 06:27 06:59 PT 26.5 H INR 2.6 H Sodium 136 Potassium 3.5 Chloride 103 Carbon Dioxide 29 Anion Gap 4 BUN 14 Creatinine 1.07 Est Cr Clr Drug Dosing 116.6 Est GFR ( Amer) 94.0 Est GFR (Non-Af Amer) 81.1 BUN/Creatinine Ratio 13.1 Glucose 100 H POC Glucose 99 Calcium 8.4 L Magnesium 1.6 L 04/23/22 04/23/22 04/23/22 11:09 16:16 20:04 PT INR Sodium Potassium Chloride Carbon Dioxide Anion Gap BUN Creatinine Est Cr Clr Drug Dosing Est GFR ( Amer) Est GFR (Non-Af Amer) BUN/Creatinine Ratio Glucose POC Glucose 148 H 124 H 117 H Calcium Magnesium PG Care Time/CCT Total # of Minutes Spent Total Time Spent with Patient: Total time spent is greater than 50% in coordination of care (as documented) at patient's floor/unit and/or counseling patient: Prolonged Care Time Prolonged Care Time: Yes Total Prolonged Care Time: 65 Coding Level of Care Code 83987 Subseq Hosp Care Lvl 3 (25 - SIGNIFICANT, SEPARATELY IDENTIFIABLE ) Diagnoses Bacteremia R78.81 Catheter-associated urinary tract infection T83.511A; N39.0 Bilateral arm weakness R29.898 Cervical spinal stenosis M48.02 Epididymitis N45.1 Bilateral cellulitis of lower leg L03.116; L03.115 Supratherapeutic INR R79.1 Celiac disease K90.0 Morbid obesity E66.01 CAD (coronary atherosclerotic disease) I25.10 HTN (hypertension) I10 Hypertension type: essential hypertension Calcium nephrolithiasis N20.0 Sleep apnea, organic G47.30 H/O mitral valve repair Z98.890 H/O aortic root repair Z98.890 History of CVA (cerebrovascular accident) Z86.73 Hirschsprung's disease Q43.1 Pulmonary emboli I26.99 DM type 2 (diabetes mellitus, type 2) E11.69; Z79.4 Diabetes mellitus complication status: with other specified complication Diabetes mellitus snf insulin use: with snf use Paraplegia G82.20 Hypomagnesemia E83.42 Chronic pain syndrome G89.4 Acute respiratory acidosis E87.2 Additional Codes Prolonged Care Time - Prolonged Care Time: Yes ([id number]) Time Spent (min) 65 (1) DM type 2 (diabetes mellitus, type 2) Diabetes mellitus complication status: with other specified complication Diabetes mellitus snf insulin use: with snf use Qualified Code(s): E11.69 - Type 2 diabetes mellitus with other specified complication; Z79.4 - sergeant of corrections (current) use of insulin (2) HTN (hypertension) Hypertension type: essential hypertension Qualified Code(s): I10 - Essential (primary) hypertension
[2022-04-24] MEDS: LINEZOLID 600 MG/300 ML BAG IV SCH (01:25)
[2022-04-24 06:36] LABS: INR 2.2 (0.9-1.1); Prothrombin Time 22.4 Seconds (9.0-12.0)
[2022-04-24 06:48] LABS: BUN Creatinine Ratio 11.4 (10-20); Calcium 8.5 mg/dl (8.5-10.1); Creatinine Clr Calc Pharmacy 109.1 ml/min; Est GFR (Non-African American) 75.1 ml/min; Magnesium 1.4 mg/dl (1.7-2.4); Potassium 3.6 mmol/L (3.5-5.1)
[2022-04-24] MEDS: LANTUS PER UNIT CHARGE SQ SCH ×2 (07:53→21:08)
[2022-04-24] MEDS: INSULIN ASPART PER UNIT SC SCH ×4 (07:53→21:07)
[2022-04-24] MEDS: GABAPENTIN 300 MG CAP PO SCH ×3 (07:56→22:17)
[2022-04-24] MEDS: allopurinoL 300 MG TAB PO SCH (07:56)
[2022-04-24] MEDS: LINEZOLID 600 MG TAB PO SCH ×2 (07:56→22:17)
[2022-04-24] MEDS: carvediloL 6.25 MG TAB PO SCH ×2 (07:57→22:16)
[2022-04-24] MEDS: NYSTATIN POWDER 15GM BTL EXT SCH ×3 (07:57→22:17)
[2022-04-24] MEDS: FAMOTIDINE 40 MG TABLET PO SCH (07:57)
[2022-04-24] MEDS: CHOLECALCIFEROL 1,000 UNITS 25 MCG TAB PO SCH (07:57)
[2022-04-24] MEDS: ERTAPENEM SODIUM 1,000 MG in SYRINGE 0 ML IV SCH (08:42)
[2022-04-24] MEDS: oxyCODONE HCL IR 30 MG TAB (IMMEDIATE RELEASE) PO SCH ×3 (08:42→22:17)
[2022-04-24] MEDS: MAGNESIUM SULFATE / D5W 1 GM/100 ML BAG IV SCH ×3 (08:43→12:21)
[2022-04-24] MEDS: aMILoride HCL 5 MG TAB PO SCH (09:10)
--- NOTE | 2022-04-24 20:59 | Hospitalist Progress Note ---
Date of Service April 24, 2022 Assessment & Plan (1) Bacteremia: Plan: 2nd E coli source - urine improved/resolving repeat blood cx's 04/22 negative initially treated with IV rocephin - first dose was 04/20/22 changed rocephin to once-daily IV ertapenem 04/23/22 (urine culture also grew ESBL Klebsiella in addition to e.coli) left-sided kidney stone likely infected and acting as a nidus for ongoing recurrent UTIs will need 14 days of Rx from date of first negative culture (04/22/22) (2) Catheter-associated urinary tract infection: Plan: 2nd to e.coli AND ESBL klebsiella Had pike placed early February, then replaced late March. initial Rx - rocephin; changed to IV ertapenem 04/23/22 Kidney stone is likely acting as the nidus for recurrent UTIs. Kidney stone was scheduled to be intervened on late in April by Dr An, Urology, at [facility] - but ideally intervention is much sooner given the ongoing infection & now bacteremia. (3) Bilateral arm weakness: Plan: 2nd to severe cervical spine stenosis - culprit likely C4-C5 disease with large herniation present there with cord edema. Accounts for recent EMG showing C5 disease on left. Ideally he would have can surgery for this but with bacteremia, ongoing UTIs, ongoing epididymitis, kidney stone, etc we simply can't operate right now. Appreciate Dr Garcia's consultation - he agrees urgent surgery at a tertiary care center would be ideal given the progressive weakness & myelopathy. Needs tertiary care for this issue - very high risk surgical candidate, h/o difficult intubation, etc. Called and spoke with [facility] 04/23/22 - accepted in transfer - MRI brain & c-spine pushed via PACS to [facility]. No bed available for [facility] until 04/26 or later. Patient also needs insurance auth to approve transfer. (4) Cervical spinal stenosis: Plan: see above discussion he is having severe radicular pain of the left arm currently receiving gabapentin BID will add mid-afternoon dose of 300mg @ 1400 (5) Epididymitis: Plan: Recent diagnosis earlier this month. s/p cipro x 14+ days since the diagnosis. Had clinically improved and wbc normalized but clearly he did not resolve the issue with +blood cultures and +urine cx again. the e.coli is resistant to cipro hence why he did not sterilize the urinary tract. Changed rocephin to ertapenem IV on 04/23/22 as urine culture grew both e.coli and ESBL klebsiella. No funguria at this time fortunately (has had c glabrata in the past). (6) Bilateral cellulitis of lower leg: Plan: Improving/resolving Previously on IV vanco --> now IV zyvox Changed to PO zyvox today which is day #5 of therapy for cellulitis Plan 7 days in total Ertapenem as above for urine/blood will also provide gram neg coverage if cellul itis is gram neg in etiology (7) Supratherapeutic INR: Plan: Likely due to recent cipro usage. INR today 2.2. Cont to Hold coumadin. Would not resume coumadin since we are aiming for transfer to [facility] and he will need surgery for stone and/or c-spine. Once INR is <2 would start heparin drip in jone of coumadin. (8) Celiac disease: Plan: Recent diagnosis by his PCP. Via antibody testing?? Cont gluten free diet. (9) Morbid obesity: Plan: BMI 45-50 (10) CAD (coronary atherosclerotic disease): Plan: No ischemic symptoms at this time. Continue coreg 6.25mg BID. Not on a statin agent or aspirin. (11) HTN (hypertension): Plan: Controlled. Cont coreg. (12) Calcium nephrolithiasis: Plan: CT abd/pelvis (see HPI) at [facility] within the last week. Large left sided stone. Is scheduled for intervention of his stones later in April. now with UTI again. earlier intervention on the stone needed - likely to keep having more UTI. see above discussions. (13) Sleep apnea, organic: Plan: Does not use any device at home. Having mild resp acidosis - counseled patient he must use BIPAP at HS for this problem. He is being more compliant now with BIPAP over last few days. (14) H/O mitral valve repair: Plan: noted (15) H/O aortic root repair: Plan: noted (16) History of CVA (cerebrovascular accident): Plan: noted see MRI brain from this admission (shows his old CVAs) with resulting paraplegia (17) Hirschsprung's disease: Plan: s/p subtotal colectomy with ileostomy formation. no issues with ostomy (18) Pulmonary emboli: Plan: history of. holding coumadin. once INR is <2 start heparin drip. (19) DM type 2 (diabetes mellitus, type 2): Plan: a1c 8.1% in 2020. controlled at this time. cont lantus BID. cont novolog - correction 12, carb ratio 1:4. (20) Paraplegia: Plan: acquired, 2nd to stroke now with b/l arm weakness 2nd c-spine spinal stenosis as above (21) Hypomagnesemia: Plan: continues to be low; refractory to replacement give additional mag sulfate IV today repeat mag level am will add amiloride 5mg daily to help prevent renal wasting (22) Chronic pain syndrome: Plan: on oxycodone 30mg TID has been on narcotics for several years in light of ANIBAL and resp acidosis he must use BIPAP on nightly basis (23) Acute respiratory acidosis: Plan: acute/chronic resp acidosis HS BIPAP BIPAP for naps as well Plan updated pt's brother Mamadou ([phone]) several times this week left message for his brother on voicemail yesterday evening in light of refractory/recurrent UTI and now bacteremia ALONG WITH severe C4-C5 spinal stenosis causing myelopathy and progressive arm/hand weakness he needs transfer to [facility] for urgent intervention of stones, sterilization of his urine and blood, and then intervention of his cervical spine he depends on his left hand for nearly all ADLS and loss of this would lead to quadriplegia (was driving up until a few months ago, fed himself independently, etc) patient accepted at [facility] 04/23/22 no bed for minimum 2-3 days AND needs insurance auth social work made aware - they have requested expedited insurance approval with his [facility] insurance Admission and Anticipated Discharge Date Admission Date: April 20, 2022 Subjective patient without any new complaints left arm is painful from the shoulder down to the hand; right arm also painful but mild relative to the left side denies dyspnea denies cough appetite only fair today he used BIPAP through the night last night but continues to feel tired tele overnight wnl Review of Systems Review of Systems: gen - fatigue, but no fever; appetite fair/poor today cv - no chest pain pulm - no dyspnea; no cough GI - no vomiting but has had some mild nausea today Physical Exam Physical Exam: gen - morbidly obese, NAD, tired-appearing but answers all questions; slurry speech/heavy [place] accent (baseline) HENT - MMM, no lesions neck - no JVD heart - RRR, s1 s2, 1/6 [place] LSB lungs - decreased BS b/l bases; no wheezes or rales abd - distended (baseline); BS+, multiple scars present, ileostomy with brown stool and air - right lower abdomen, NT ext - 2+ edema b/l, pulses 2+ b/l skin - erythema of b/l shins - mild only; warmth resolved; occasional papules/pustules on left garcias psych - a/o x 3 Results & Data Results & Data ([facility]) Vital Signs (Past 12 Hours) Vital Signs Temp Pulse Pulse Resp BP Pulse Ox O2 Del Method 04/24/22 19:29 36.9 C 91 H 18 151/80 H 95 04/24/22 16:25 87 04/24/22 15:18 36.8 C 88 16 141/92 H 93 Room Air 04/24/22 11:10 36.9 C 85 20 150/83 H 95 Room Air 04/24/22 09:31 93 H 04/24/22 09:31 Room Air, BiPAP Laboratory Results Laboratory Results - last 24 hr 04/24/22 04/24/22 04/24/22 06:00 06:00 06:57 PT 22.4 H INR 2.2 H Sodium 136 Potassium 3.6 Chloride 102 Carbon Dioxide 28 Anion Gap 6 BUN 13 Creatinine 1.14 Est Cr Clr Drug Dosing 109.1 Est GFR ( Amer) 87.0 Est GFR (Non-Af Amer) 75.1 BUN/Creatinine Ratio 11.4 Glucose 172 H POC Glucose 179 H Calcium 8.5 Magnesium 1.4 L 04/24/22 04/24/22 04/24/22 11:09 16:07 20:18 PT INR Sodium Potassium Chloride Carbon Dioxide Anion Gap BUN Creatinine Est Cr Clr Drug Dosing Est GFR ( Amer) Est GFR (Non-Af Amer) BUN/Creatinine Ratio Glucose POC Glucose 170 H 103 H 111 H Calcium Magnesium PG Care Time/CCT Total # of Minutes Spent Total Time Spent with Patient: Total time spent is greater than 50% in coordination of care (as documented) at patient's floor/unit and/or counseling patient: Coding Level of Care Code 30626 Subseq Hosp Care Lvl 3 Diagnoses Bacteremia R78.81 Catheter-associated urinary tract infection T83.511A; N39.0 Bilateral arm weakness R29.898 Cervical spinal stenosis M48.02 Epididymitis N45.1 Bilateral cellulitis of lower leg L03.116; L03.115 Supratherapeutic INR R79.1 Celiac disease K90.0 Morbid obesity E66.01 CAD (coronary atherosclerotic disease) I25.10 HTN (hypertension) I10 Hypertension type: essential hypertension Calcium nephrolithiasis N20.0 Sleep apnea, organic G47.30 H/O mitral valve repair Z98.890 H/O aortic root repair Z98.890 History of CVA (cerebrovascular accident) Z86.73 Hirschsprung's disease Q43.1 Pulmonary emboli I26.99 DM type 2 (diabetes mellitus, type 2) E11.69; Z79.4 Diabetes mellitus complication status: with other specified complication Diabetes mellitus long chain quiller tender insulin use: with long chain quiller tender use Paraplegia G82.20 Hypomagnesemia E83.42 Chronic pain syndrome G89.4 Acute respiratory acidosis E87.2 (1) DM type 2 (diabetes mellitus, type 2) Diabetes mellitus complication status: with other specified complication Diabetes mellitus longterm insulin use: with long chain quiller tender use Qualified Code(s): E11.69 - Type 2 diabetes mellitus with other specified complication; Z79.4 - group home (current) use of insulin (2) HTN (hypertension) Hypertension type: essential hypertension Qualified Code(s): I10 - Essential (primary) hypertension
[2022-04-24 21:12] LABS: Base Excess VBG 2.8 mEq/L; HCO3 VBG 31 mmol/L; Oxygen Saturation VBG < 60.0 %; PCO2 VBG 63 mmHg (38-50); PO2 VBG 29 mmHg
[2022-04-25 07:04] LABS: Base Excess VBG 3.2 mEq/L; Basophils # (auto) 0.03 K/uL (0-0.2); Basophils % (auto) 0.4 %; Eosinophils # (auto) 0.14 K/uL (0-0.50); Eosinophils % (auto) 1.8 %; HCO3 VBG 31 mmol/L; Hematocrit (blood only) 43.2 % (40.1-51.0); Hemoglobin 13.6 g/dl (14.0-18.0); Immature Granulocytes # (auto) 0.05 K/uL (0.00-0.02); Immature Granulocytes % (auto) 0.6 %; Lymphocytes # (auto) 1.28 K/uL (1.2-3.4); Lymphocytes % (auto) 16.1 %; Mean Corpuscular Hgb Conc 31.5 g/dL (32.0-36.0); Mean Corpuscular Volume 92.1 fL (80.0-100.0); Mean Platelet Volume 9.5 fL (9.4-12.4); Monocytes # (auto) 0.55 K/uL (0.24-0.82); Monocytes % (auto) 6.9 %; Neutrophils % (auto) 74.2 %; Oxygen Saturation VBG < 60.0 %; PCO2 VBG 60 mmHg (38-50); PO2 VBG 32 mmHg; Platelet Count 172 K/uL (130-400); RDW Standard Deviation 53.2 fL (36.4-46.3); Red Blood Count 4.69 M/uL (4.63-6.08); White Blood Count 7.95 K/ul (4.8-10.8); pH VBG 7.32 (7.36-7.41)
[2022-04-25 07:25] LABS: INR 1.8 (0.9-1.1); Prothrombin Time 18.5 Seconds (9.0-12.0)
[2022-04-25 07:28] LABS: BUN Creatinine Ratio 10.9 (10-20); Calcium 8.8 mg/dl (8.5-10.1); Creatinine Clr Calc Pharmacy 104.3 ml/min; Est GFR (African American) 82.6 ml/min; Est GFR (Non-African American) 71.3 ml/min; Magnesium 1.7 mg/dl (1.7-2.4); Potassium 3.9 mmol/L (3.5-5.1)
[2022-04-25] MEDS: INSULIN ASPART PER UNIT SC SCH ×4 (08:21→20:32)
[2022-04-25] MEDS: aMILoride HCL 5 MG TAB PO SCH (08:49)
[2022-04-25] MEDS: ERTAPENEM SODIUM 1,000 MG in SYRINGE 0 ML IV SCH (08:49)
[2022-04-25] MEDS: GABAPENTIN 300 MG CAP PO SCH ×3 (08:49→20:00)
[2022-04-25] MEDS: LINEZOLID 600 MG TAB PO SCH ×2 (08:49→19:59)
[2022-04-25] MEDS: FAMOTIDINE 40 MG TABLET PO SCH (08:49)
[2022-04-25] MEDS: allopurinoL 300 MG TAB PO SCH (08:49)
[2022-04-25] MEDS: CHOLECALCIFEROL 1,000 UNITS 25 MCG TAB PO SCH (08:49)
[2022-04-25] MEDS: NYSTATIN POWDER 15GM BTL EXT SCH ×4 (08:50→20:00)
[2022-04-25] MEDS: oxyCODONE HCL IR 30 MG TAB (IMMEDIATE RELEASE) PO SCH (08:57)
[2022-04-25] MEDS: LANTUS PER UNIT CHARGE SQ SCH ×2 (09:15→20:33)
[2022-04-25] MEDS: HEPARIN SODIUM/DEXTROSE 25,000 UNITS/500 ML BAG IV SCH ×2 (10:03→23:50)
[2022-04-25] MEDS: carvediloL 6.25 MG TAB PO SCH ×2 (10:03→19:59)
[2022-04-25] MEDS: Heparin IV Adult Wt-Based Standard *NO* Bolus Protocol IV SCH (10:05)
[2022-04-25] MEDS: oxyCODONE HCL IR 5 MG TAB (IMMEDIATE RELEASE) PO PRN (13:25)
[2022-04-25 17:40] LABS: Partial Thromboplastin Ratio 2.1
[2022-04-25 17:54] LABS: Partial Thromboplastin Time 57.4 Seconds (21.0-31.0)
--- NOTE | 2022-04-25 21:08 | Hospitalist Progress Note ---
Date of Service April 25, 2022 Assessment & Plan (1) Bacteremia: Plan: 2nd E coli source - UTI, left-sided kidney stone improved/resolving repeat blood cx's 04/22/22 negative initially treated with IV rocephin - first dose was 04/20/22 changed rocephin to once-daily IV ertapenem 04/23/22 as urine culture also grew ESBL Klebsiella in addition to e.coli left-sided kidney stone likely infected and acting as a nidus for ongoing recurrent UTIs will need 14 days of Rx from date of first negative culture (04/22/22) (2) Catheter-associated urinary tract infection: Plan: 2nd to e.coli AND ESBL klebsiella Had pike placed early February, then replaced 04/15/22 in the [facility] ER. Likely should change the pike again in the near-future. initial Rx - rocephin; changed to IV ertapenem 04/23/22. Kidney stone is likely acting as the nidus for recurrent UTIs. Kidney stone was scheduled to be intervened on late in April by Dr An, Urology, at [facility] - but ideally intervention is much sooner given the ongoing infection & now bacteremia. (3) Bilateral arm weakness: Plan: 2nd to severe cervical spine stenosis - culprit likely C4-C5 disease with large herniation present there with cord edema. Accounts for recent EMG showing C5 disease on left (EMG ordered by his primary neurologist, Dr Andrey Zaragoza, out of [place]). Ideally he would have can surgery for this but with bacteremia, ongoing UTIs, ongoing epididymitis, kidney stone, etc we simply can't operate right now. Appreciate Dr Garcia's consultation - he agrees urgent surgery at a tertiary care center would be ideal given the progressive weakness & myelopathy. Needs tertiary care for this issue - very high risk surgical candidate, h/o difficult intubation, etc. Called and spoke with [facility] 04/23/22 - accepted in transfer - MRI brain & c-spine pushed via PACS to [facility]. No bed available for [facility] until 04/26 or later. Patient also needs insurance auth to approve transfer. (4) Cervical spinal stenosis: Plan: see above discussion regarding need for cervical spine surgery he is having severe radicular pain of the left arm gabapentin increased to TID dosing on 04/24/22 (5) Epididymitis: Plan: Recent diagnosis in March. s/p cipro x 14+ days in March. Had clinically improved with less scrotal swelling and improved leukocytosis but never fully resolved the issue likely due to resistant pathogens as seen on urine culture this admission. Changed rocephin to ertapenem IV on 04/23/22 as urine culture grew both e.coli and ESBL klebsiella. No funguria at this time fortunately (has had c glabrata in the past). His scrotal erythema & swelling are MUCH improved since time of admission. His testicular swelling on the left is also improved. (6) Bilateral cellulitis of lower leg: Plan: Nearly resolved. Previously on IV vanco --> then IV zyvox --> now PO zyvox. Day #6 of therapy. Can stop the zyvox after his doses on 04/26/22. (7) Supratherapeutic INR: Plan: Likely due to recent cipro usage. Resolved. Coumadin on hold since admission. INR today 1.8. Plan - since we are awaiting transfer to [place] for anticipated intervention of his L sided kidney stone and cervical spine surgery will continue to Hold coumadin. start heparin drip in jone of coumadin today as INR is now <2. (8) Celiac disease: Plan: Recent diagnosis by his PCP. Via antibody testing?? Cont gluten free diet. (9) Morbid obesity: Plan: BMI 45-50 (10) CAD (coronary atherosclerotic disease): Plan: No ischemic symptoms at this time. Continue coreg 6.25mg BID. Not on a statin agent or aspirin chronically. (11) HTN (hypertension): Plan: Controlled. Cont coreg. (12) Calcium nephrolithiasis: Plan: CT abd/pelvis done at [facility] in late March during an outpatient urology visit. CT was done in preparation for surgery for a Large left sided kidney stone scheduled for late April in [place]. Dr Cadet had initiated the referral to [facility] earlier this summer as Dr Cadet had attempted stone treatment without success. The stone is felt to be the reason for his recurrent UTIs. Neurogenic bladder as a result of his c-spine myelopathy could also be contributing to his recurrent UTIs. earlier intervention on the stone needed - likely to keep having more UTI if stone is left alone. see above discussions. (13) Sleep apnea, organic: Plan: Does not use any device at home - his prior BIPAP machine was recalled but he never got a replacement unit. Sleep study was done years ago in [place]. Continues to have mild resp acidosis despite compliance with BIPAP during this hospitalization. Respiratory aware - they are increasing his pressures on the BIPAP. Repeat a VBG tomorrow am. Plan is for BIPAP 16/5 moving forward. Patient counseled that his use of PO oxycodone makes him sleepy and the need for BIPAP compliance is especially important. 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 no issues with ostomy. (18) Pulmonary emboli: Plan: history of. holding coumadin. INR today is <2 thus starting heparin drip. (19) DM type 2 (diabetes mellitus, type 2): Plan: a1c 8.1% in 2020. controlled at this time. cont lantus BID. cont novolog - correction 12, carb ratio 1:4. (20) Paraplegia: Plan: acquired, 2nd to strokes in the past now with b/l arm weakness 2nd c-spine spinal stenosis as above (21) Hypomagnesemia: Plan: improved s/p IV replacement and implementation of 5mg of daily amiloride level wnl today (22) Chronic pain syndrome: Plan: previously on oxycodone 30mg TID has been on narcotics for several years per PDMP in light of ANIBAL and resp acidosis he must use BIPAP on nightly basis oxy dose decreased to 15mg TID PRN (30mg dose is very sedating for him despite long-term use of this dose based on records) (23) Acute respiratory acidosis: Plan: acute/chronic resp acidosis HS BIPAP BIPAP for naps as well pressures increased to 16/5 repeat VBG am Plan updated pt's brother Mamadou ([phone]) several times this week left message for his brother on voicemail 04/24 as well updated pt's father at bedside today in light of refractory/recurrent UTI and now bacteremia ALONG WITH severe C4-C5 spinal stenosis causing myelopathy and progressive arm/hand weakness he needs transfer to [facility] for urgent intervention of kidney stones, sterilization of his urine and blood, and then intervention of his cervical spine he depends on his left hand for nearly all ADLS and loss of this would lead to quadriplegia (was driving up until a few months ago, fed himself independently, etc) patient accepted at [facility] 04/23/22 but awaiting transfer ---> no bed for minimum 2- 3 days AND needs insurance auth social work made aware - they have requested expedited insurance approval with his [facility] insurance Admission and Anticipated Discharge Date Admission Date: April 20, 2022 Subjective faithfully used BIPAP overnight VBG last pm and this am still with ongoing mild resp acidosis I spoke with respiratory and we will increase the settings on his BIPAP patient very awake/alert today - the most he has been since hospital admission his father was at bedside Hema's only complaint is that of ongoing left arm pain extending from shoulder to hand denies headache denies dyspnea denies pains in other locations tele overnight wnl Review of Systems Review of Systems: gen - no fevers; energy today is best it has been in several days cv - no chest pains pulm - minimal cough; no dyspnea GI - no further nausea Physical Exam Physical Exam: gen - morbidly obese, NAD, very awake/alert today HENT - MMM, no lesions neck - no JVD heart - RRR, s1 s2, 1/6 [place]AR[place] LSB lungs - decreased BS b/l bases; no wheezes or rales abd - distended (baseline); BS+, multiple scars present, ileostomy with brown stool right lower abdomen, NT ext - 2+ edema b/l, pulses 2+ b/l - left testicular swelling MUCH better; scrotal erythema & edema IMPROVED skin - cellulitis b/l legs much improved; likely 75+% resolved; mild erythema present but no warmth psych - a/o x 3 Results & Data Results & Data ([facility]) Vital Signs (Past 12 Hours) Vital Signs Temp Pulse Pulse Resp BP Pulse Ox O2 Del Method 04/25/22 19:07 36.8 C 94 H 20 139/86 93 Room Air 04/25/22 16:16 92 H 04/25/22 15:02 36.9 C 91 H 20 142/86 H 92 Room Air 04/25/22 13:48 90 13 94 04/25/22 11:30 36.6 C 88 18 135/80 93 Room Air 04/25/22 10:12 87 04/25/22 10:12 Room Air FiO2 04/25/22 19:07 04/25/22 16:16 04/25/22 15:02 04/25/22 13:48 21 04/25/22 11:30 04/25/22 10:12 04/25/22 10:12 Laboratory Results Laboratory Results - last 24 hr 04/24/22 04/25/22 04/25/22 21:02 06:43 06:43 WBC RBC Hgb Hct MCV MCH MCHC RDW Std Deviation RDW Coeff of Lorenzo Plt Count MPV Immature Gran % (Auto) Neut % (Auto) Lymph % (Auto) Mitchell % (Auto) Eos % (Auto) Baso % (Auto) Neut # (Auto) Lymph # (Auto) Mitchell # (Auto) Eos # (Auto) Baso # (Auto) Immature Gran # (Auto) PT 18.5 H INR 1.8 H APTT PTT Ratio VBG pH 7.30 L 7.32 L VBG pCO2 63 H 60 H VBG pO2 29 32 VBG HCO3 31 31 VBG O2 Saturation < 60.0 < 60.0 VBG Base Excess 2.8 3.2 Sodium Potassium Chloride Carbon Dioxide Anion Gap BUN Creatinine Est Cr Clr Drug Dosing Est GFR ( Amer) Est GFR (Non-Af Amer) BUN/Creatinine Ratio Glucose POC Glucose Calcium Magnesium 04/25/22 04/25/22 04/25/22 06:43 06:43 07:27 WBC 7.95 RBC 4.69 Hgb 13.6 L Hct 43.2 MCV 92.1 MCH 29.0 MCHC 31.5 L RDW Std Deviation 53.2 H RDW Coeff of Lorenzo 16.0 H Plt Count 172 MPV 9.5 Immature Gran % (Auto) 0.6 Neut % (Auto) 74.2 Lymph % (Auto) 16.1 Mitchell % (Auto) 6.9 Eos % (Auto) 1.8 Baso % (Auto) 0.4 Neut # (Auto) 5.90 Lymph # (Auto) 1.28 Mitchell # (Auto) 0.55 Eos # (Auto) 0.14 Baso # (Auto) 0.03 Immature Gran # (Auto) 0.05 H PT INR APTT PTT Ratio VBG pH VBG pCO2 VBG pO2 VBG HCO3 VBG O2 Saturation VBG Base Excess Sodium 134 L Potassium 3.9 Chloride 101 Carbon Dioxide 28 Anion Gap 5 BUN 13 Creatinine 1.19 Est Cr Clr Drug Dosing 104.3 Est GFR ( Amer) 82.6 Est GFR (Non-Af Amer) 71.3 BUN/Creatinine Ratio 10.9 Glucose 120 H POC Glucose 110 H Calcium 8.8 Magnesium 1.7 04/25/22 04/25/22 04/25/22 11:29 16:12 16:50 WBC RBC Hgb Hct MCV MCH MCHC RDW Std Deviation RDW Coeff of Lorenzo Plt Count MPV Immature Gran % (Auto) Neut % (Auto) Lymph % (Auto) Mitchell % (Auto) Eos % (Auto) Baso % (Auto) Neut # (Auto) Lymph # (Auto) Mitchell # (Auto) Eos # (Auto) Baso # (Auto) Immature Gran # (Auto) PT INR APTT 57.4 H* PTT Ratio 2.1 VBG pH VBG pCO2 VBG pO2 VBG HCO3 VBG O2 Saturation VBG Base Excess Sodium Potassium Chloride Carbon Dioxide Anion Gap BUN Creatinine Est Cr Clr Drug Dosing Est GFR ( Amer) Est GFR (Non-Af Amer) BUN/Creatinine Ratio Glucose POC Glucose 130 H 201 H Calcium Magnesium 04/25/22 20:03 WBC RBC Hgb Hct MCV MCH MCHC RDW Std Deviation RDW Coeff of Lorenzo Plt Count MPV Immature Gran % (Auto) Neut % (Auto) Lymph % (Auto) Mitchell % (Auto) Eos % (Auto) Baso % (Auto) Neut # (Auto) Lymph # (Auto) Mitchell # (Auto) Eos # (Auto) Baso # (Auto) Immature Gran # (Auto) PT INR APTT PTT Ratio VBG pH VBG pCO2 VBG pO2 VBG HCO3 VBG O2 Saturation VBG Base Excess Sodium Potassium Chloride Carbon Dioxide Anion Gap BUN Creatinine Est Cr Clr Drug Dosing Est GFR ( Amer) Est GFR (Non-Af Amer) BUN/Creatinine Ratio Glucose POC Glucose 127 H Calcium Magnesium Diagnostic Findings blood cultures (repeat) negative to date PG Care Time/CCT Total # of Minutes Spent Total Time Spent with Patient: Total time spent is greater than 50% in coordination of care (as documented) at patient's floor/unit and/or counseling patient: Coding Level of Care Code 90740 Subseq Hosp Care Lvl 3 Diagnoses Bacteremia R78.81 Catheter-associated urinary tract infection T83.511A; N39.0 Bilateral arm weakness R29.898 Cervical spinal stenosis M48.02 Epididymitis N45.1 Bilateral cellulitis of lower leg L03.116; L03.115 Supratherapeutic INR R79.1 Celiac disease K90.0 Morbid obesity E66.01 CAD (coronary atherosclerotic disease) I25.10 HTN (hypertension) I10 Hypertension type: essential hypertension Calcium nephrolithiasis N20.0 Sleep apnea, organic G47.30 H/O mitral valve repair Z98.890 H/O aortic root repair Z98.890 History of CVA (cerebrovascular accident) Z86.73 Hirschsprung's disease Q43.1 Pulmonary emboli I26.99 DM type 2 (diabetes mellitus, type 2) E11.69; Z79.4 Diabetes mellitus complication status: with other specified complication Diabetes mellitus termite control service representative insulin use: with fpc use Paraplegia G82.20 Hypomagnesemia E83.42 Chronic pain syndrome G89.4 Acute respiratory acidosis E87.2 (1) DM type 2 (diabetes mellitus, type 2) Diabetes mellitus complication status: with other specified complication Diabetes mellitus termite control service representative insulin use: with termite control service representative use Qualified Code(s): E11.69 - Type 2 diabetes mellitus with other specified complication; Z79.4 - terminologist (current) use of insulin (2) HTN (hypertension) Hypertension type: essential hypertension Qualified Code(s): I10 - Essential (primary) hypertension
[2022-04-26] MEDS: oxyCODONE HCL IR 5 MG TAB (IMMEDIATE RELEASE) PO PRN (06:37)
[2022-04-26 07:32] LABS: Base Excess VBG 2.8 mEq/L; HCO3 VBG 29 mmol/L; Oxygen Saturation VBG 72.8 %; PCO2 VBG 52 mmHg (38-50); PO2 VBG 37 mmHg; pH VBG 7.36 (7.36-7.41)
[2022-04-26 07:59] LABS: BUN Creatinine Ratio 13.4 (10-20); Calcium 8.3 mg/dl (8.5-10.1); Creatinine Clr Calc Pharmacy 110.9 ml/min; Est GFR (African American) 88.9 ml/min; Est GFR (Non-African American) 76.7 ml/min; Potassium 4.1 mmol/L (3.5-5.1)
[2022-04-26] MEDS: INSULIN ASPART PER UNIT SC SCH ×4 (08:04→20:52)
[2022-04-26] MEDS: LANTUS PER UNIT CHARGE SQ SCH ×2 (08:05→20:52)
[2022-04-26] MEDS: GABAPENTIN 300 MG CAP PO SCH ×3 (08:08→21:23)
[2022-04-26] MEDS: FAMOTIDINE 40 MG TABLET PO SCH (08:09)
[2022-04-26] MEDS: CHOLECALCIFEROL 1,000 UNITS 25 MCG TAB PO SCH (08:09)
[2022-04-26] MEDS: carvediloL 6.25 MG TAB PO SCH ×2 (08:09→21:23)
[2022-04-26] MEDS: NYSTATIN POWDER 15GM BTL EXT SCH ×3 (08:09→21:24)
[2022-04-26] MEDS: aMILoride HCL 5 MG TAB PO SCH (08:09)
[2022-04-26] MEDS: LINEZOLID 600 MG TAB PO SCH ×2 (08:09→21:23)
[2022-04-26] MEDS: allopurinoL 300 MG TAB PO SCH (08:09)
[2022-04-26 09:08] LABS: Partial Thromboplastin Ratio 2.6
[2022-04-26 09:12] LABS: Partial Thromboplastin Time 72.7 Seconds (21.0-31.0)
[2022-04-26] MEDS: ERTAPENEM SODIUM 1,000 MG in SYRINGE 0 ML IV SCH (09:14)
[2022-04-26] MEDS: HEPARIN SODIUM/DEXTROSE 25,000 UNITS/500 ML BAG IV SCH (13:09)
--- NOTE | 2022-04-26 14:38 | Discharge Summary ---
Date of Service April 26, 2022 Admission HPI Per Admitting Provider Mr Grajeda is a complicated 51yo male with history of acquired paraplegia, prior endocarditis, chronic coumadin use, h/o PE, T2DM, morbid obesity, CAD, CVA, CKD stage 3, kidney stones, recurrent UTIs, h/o mitral valve repair, h/o aortic root repair, Hirschsprung's disease s/p ileostomy creation, and prior Hepatitis C. Over this summer he has had difficulties with a left-sided kidney stone, b/l epididymitis, and urinary retention requiring pike catheter placement on 02/18/22 (and replacement on 04/15/22). In addition he has had 3-4 months of progressive bilateral upper extremity weakness, L>R, especially of the left hand. He is right handed, but has favored his left hand in use of his powerchair, driving a car, and other ADLs. It is now difficult to feed himself, use his powerchair, etc. He saw his primary neurologist, Dr Andrey Zaragoza, in [place] earlier this month. EMGs were obtained and, to his knowledge, may have shown C5 disease? He is scheduled to have MRI brain and MRI cervical spine in April due to the progressive upper extremity weakness. He also mentions his PCP has done considerable blood work and other tests this summer to determine if there are other conditions present contributing to the b/l arm/hand weakness. He was told by his PCP that he had celiac disease (new diagnosis for him) and was told to start a gluten-free diet. He has followed such for about 2 months. When asked what brought him to the hospital today he clearly stated it was out of concern for his worsening b/l upper extremity weakness. With respect to the recent diagnosis of epididymitis and UTI - seen initially at [facility] in early March. Prescribed cipro x 10 days on 04/01/22. Culture results not available. Then seen in our ER on 04/02/22 due to scrotal pain on the left side. Diagnosed with b/l epididymitis. Told to continue the cipro. His scrotal/testicular pain improved with cipro and on 04/12/22 his PCP reordered an additional 14 day course of cipro. The scrotal swelling is "much better" per the patient. On 04/12/22 he was placed on a course of prednisone 20mg BID for his upper body weakness. He states his BSGs were very high with such and it did not provide any impro vement in his weakness thus he stopped the prednisone after a few days. Finally, on 04/13/22, he was seen in the [facility] clinic in [place] for his left-sided kidney stone. CT a/p was obtained during that visit showing - CT ABD/PELVIS WO IV/ORAL CONTRAST 02/10/2019 9:44 AM FINDINGS: Tubes, catheters and devices: Pike catheter appears to be in place but the balloon appears to be inflated the in the urethra. Small amount of gas in the bladder likely associated with presence of Pike catheter. Lungs: There is left basilar consolidation. Pleural spaces: Trace pleural effusions seen, left greater than right. Liver: Normal. No mass. Gallbladder and bile ducts: Multiple calcified gallstones are present. Pancreas: Normal. No ductal dilation. Spleen: Normal. No splenomegaly. Adrenal glands: Normal. No mass. Kidneys and ureters: Left renal nonobstructing calculus is similar to previous in size. New calculus in the lower pole of left kidney measures approximately 6 mm. Pinpoint right renal calculi are nonobstructive. No definite ureteral calculi identified. Interval development of exophytic lesion posterolaterally off the left kidney, measuring 1.8 cm in diameter. It is not definitively characterized but appears to be solid. Stomach and bowel: There is a right anterior abdominal ostomy site. Appendix: No evidence of appendicitis. Intraperitoneal space: Unremarkable. No free air. No significant fluid collection. Vasculature: Unremarkable. No abdominal aortic aneurysm. Lymph nodes: Unremarkable. No enlarged lymph nodes. Urinary bladder: There is moderate bladder wall thickening consistent with incomplete distension, chronic outflow obstruction, or cystitis. Reproductive: Unremarkable as visualized. Bones/joints: There are moderate degenerative changes present. Soft tissues: There appears to be a bowel containing periumbilical hernia. IMPRESSION: 1. New exophytic lesion, which appear appears to be solid, extending of the left kidney. Primary neoplasm such as are renal cell carcinoma not excluded. Recommend follow-up with dedicated CT IV study with renal protocol versus ultrasound if patient cannot tolerate IV contrast. 2. Bilateral renal calculi are nonobstructive 3. Pike catheter balloon appears to be dilated in the urethra. Small amount of gas in the bladder likely secondary Pike catheter . 4. There appears to be a bowel containing periumbilical hernia. (again, on 04/15, he came back to our ER to have his pike removed and have a new pike placed - since the exchange he has had no issues) Principal Diagnosis E. 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 Discharge Exam gen - morbidly obese, NAD, very awake/alert today HENT - MMM, no lesions neck - no JVD heart - RRR, s1 s2, 1/6 CATARINA LSB lungs - decreased BS b/l bases; no wheezes or rales abd - distended (baseline); BS+, multiple scars present, ileostomy with brown stool right lower abdomen, NT ext - 2+ edema b/l, pulses 2+ b/l skin - cellulitis b/l legs much improved; likely 75+% resolved; mild erythema present but no warmth psych - a/o x 3 Discharge Data Allergies Allergy/AdvReac Type Severity Reaction Status Date / Time sulfamethoxazole AdvReac Unknown "Levels Verified 02/17/22 00:49 [From Bactrim] were up"-per [facility] trimethoprim [From Bactrim] AdvReac Unknown "Levels Verified 02/17/22 00:49 were up"-per [facility] Consultations 04/20/22 17:08 ED Decision to Admit Stat Ordered Studies 04/20/22 18:18 MR brain wo/w con Routine MR cervical spine wo/w con Routine Hospital Course (1) Bacteremia: 2nd E coli source - UTI, left-sided kidney stone improved/resolving repeat blood cx's 04/22/22 negative initially treated with IV rocephin - first dose was 04/20/22 changed rocephin to once-daily IV ertapenem 04/23/22 as urine culture also grew ESBL Klebsiella in addition to e.coli left-sided kidney stone likely infected and acting as a nidus for ongoing recurrent UTIs will need 14 days of Rx from date of first negative culture (04/22/22) (2) Catheter-associated urinary tract infection: 2nd to e.coli AND ESBL klebsiella Had pike placed early February, then replaced 04/15/22 in the [facility] ER. Likely should change the pike again in the near-future. initial Rx - rocephin; changed to IV ertapenem 04/23/22. Kidney stone is likely acting as the nidus for recurrent UTIs. Kidney stone was scheduled to be intervened on late in April by Dr An, Urology, at [facility] - but ideally intervention is much sooner given the ongoing infection & now bacteremia. (3) Bilateral arm weakness: 2nd to severe cervical spine stenosis - culprit likely C4-C5 disease with large herniation present there with cord edema. Accounts for recent EMG showing C5 disease on left (EMG ordered by his primary neurologist, Dr Andrey Zaragoza, out of [place]). Ideally he would have can surgery for this but with bacteremia, ongoing UTIs, ongoing epididymitis, kidney stone, etc we simply can't operate right now. Appreciate Dr Garcia's consultation - he agrees urgent surgery at a tertiary care center would be ideal given the progressive weakness & myelopathy. Needs tertiary care for this issue - very high risk surgical candidate, h/o difficult intubation, etc. Called and spoke with [facility] 04/23/22 - accepted in transfer - MRI brain & c-spine pushed via PACS to [facility]. (4) Cervical spinal stenosis: see above discussion regarding need for cervical spine surgery he is having severe radicular pain of the left arm gabapentin increased to TID dosing on 04/24/22 (5) Epididymitis: Recent diagnosis in March. s/p cipro x 14+ days in March. Had clinically improved with less scrotal swelling and improved leukocytosis but never fully resolved the issue likely due to resistant pathogens as seen on urine culture this admission. Changed rocephin to ertapenem IV on 04/23/22 as urine culture grew both e.coli and ESBL klebsiella. No funguria at this time fortunately (has had c glabrata in the past). His scrotal erythema & swelling are MUCH improved since time of admission. His testicular swelling on the left is also improved. (6) Bilateral cellulitis of lower leg: Nearly resolved. Previously on IV vanco --> then IV zyvox --> now PO zyvox. Day #7 of therapy. Can consider stopping the zyvox after his doses on 04/26/22. (7) Supratherapeutic INR: Likely due to recent cipro usage. Resolved. Coumadin on hold since admission. INRdown to 1.8 on 04/25 and was started on heparin gtt for bridging Plan - since we are awaiting transfer to [place] for anticipated intervention of his L sided kidney stone and cervical spine surgery will continue to Hold coumadin. (8) Celiac disease: Recent diagnosis by his PCP. Via antibody testing?? Cont gluten free diet. (9) Morbid obesity: BMI 45-50 (10) CAD (coronary atherosclerotic disease): No ischemic symptoms at this time. Continue coreg 6.25mg BID. Not on a statin agent or aspirin chronically. (11) HTN (hypertension): Controlled. Cont coreg. (12) Calcium nephrolithiasis: CT abd/pelvis done at [facility] in late March during an outpatient urology visit. CT was done in preparation for surgery for a Large left sided kidney stone scheduled for late April in [place]. Dr Cadet had initiated the referral to [facility] earlier this summer as Dr Cadet had attempted stone treatment without success. The stone is felt to be the reason for his recurrent UTIs. Neurogenic bladder as a result of his c-spine myelopathy could also be contributing to his recurrent UTIs. earlier intervention on the stone needed - likely to keep having more UTI if stone is left alone. see above discussions. (13) Sleep apnea, organic: Does not use any device at home - his prior BIPAP machine was recalled but he never got a replacement unit. Sleep study was done years ago in [place]. Continues to have mild resp acidosis despite compliance with BIPAP during this hospitalization. Respiratory aware - they are increasing his pressures on the BIPA and repeat VBG on day of discharge much improved, less CO retention. Plan is for BIPAP 03/01 moving forward. Patient counseled that his use of PO oxycodone makes him sleepy and the need for BIPAP compliance is especially important. 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 no issues with ostomy. (18) Pulmonary emboli: history of. holding coumadin. - heparin drip. (19) DM type 2 (diabetes mellitus, type 2): a1c 8.1% in 2020. controlled at this time. cont lantus BID. cont novolog - correction 12, carb ratio 1:4. (20) Paraplegia: acquired, 2nd to strokes in the past now with b/l arm weakness 2nd c-spine spinal stenosis as above (21) Hypomagnesemia: improved s/p IV replacement and implementation of 5mg of daily amiloride at home is on finerenone and this can be continued (22) Chronic pain syndrome: previously on oxycodone 30mg TID has been on narcotics for several years per PDMP in light of ANIBAL and resp acidosis he must use BIPAP on nightly basis oxy dose decreased to 15mg TID PRN (30mg dose is very sedating for him despite long-term use of this dose based on records) (23) Acute respiratory acidosis: acute/chronic resp acidosis HS BIPAP BIPAP for naps as well pressures increased to 16/5 Plan updated pt's brother Mamadou ([phone]) several times this week in light of refractory/recurrent UTI and now bacteremia ALONG WITH severe C4-C5 spinal stenosis causing myelopathy and progressive arm/hand weakness he needs transfer to [facility] for urgent intervention of kidney stones, sterilization of his urine and blood, and then intervention of his cervical spine he depends on his left hand for nearly all ADLS and loss of this would lead to quadriplegia (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 coli bacteremia, Severe cervical spine stenosis,myelomalacia Condition on Discharge: Serious Activity: As commented below Lifting: None Exercise/Sports: Rest today Non-emergency contact: Primary Care Provider and Surgeon Call non-emergency contact if: you have any medication questions and your symptoms worsen Follow-up/Referrals: Demarcus Nicholson DO [Primary Care Provider] - Diet: Nothing by Mouth Addtl Attending Provider Instructions: Transferred to [facility] Pending Studies at Discharge: Yes Studies:: Final repeat Blood cultures-no growth to date Stand-Alone Forms: My [facility] Skilled Items Patient informed of condition?: Yes DNR: No Discharge Level of Care: Other Communicable Disease: No Discharge Prognosis: Stable Lines: Peripheral IV Urinary Catheter: Yes Medications and DC Order Prescriptions: New ertapenem 1 gram recon soln 1 g IV DAILY Qty: 14 0RF gabapentin 300 mg Capsule 300 mg PO DAILY@14 Qty: 30 0RF Continued allopurinol 300 mg tablet 300 mg PO QAM cholecalciferol (vitamin D3) 25 mcg (1,000 unit) capsule 25 mcg PO DAILY carvedilol 6.25 mg tablet 6.25 mg PO BID Qty: 60 6RF Rx Instructions: must administer with a meal/food Kerendia 10 mg tablet 10 mg PO DAILY gabapentin 300 mg capsule See Rx Instructions .ROUTE .COMPLEX Rx Instructions: take 2 capsules in the morning and 1 in the evening Toujeo SoloStar U-300 Insulin 300 unit/mL (1.5 mL) insulin pen 50 unit subcut BID famotidine [Pepcid] 40 mg tablet 40 mg PO QAM insulin aspart U-100 [Novolog Flexpen U-100 Insulin] 100 unit/mL Insulin Pen 0 unit SUBCUT TIDM warfarin 2.5 mg tablet 2.5 mg PO DAILY Rx Instructions: may adjust clotrimazole-betamethasone 1-0.05 % cream 1 applic TOPICAL BID PRN (Reason: affected area) nystatin 100,000 unit/gram powder 1 applic TOPICAL BID Changed oxycodone 30 mg tablet 15 mg PO TID Qty: 20 0RF Discontinued cyclobenzaprine 10 mg tablet 10 mg PO BID PRN (Reason: muscle spasm) Qty: 20 0RF amoxicillin-pot clavulanate 875-125 mg tablet 1 tab PO BID Rx Instructions: ordered 02/23/22 take for 7 days ciprofloxacin HCl [Cipro] 500 mg tablet 500 mg PO BID Qty: 10 0RF Discharge Orders: Discharge Order (Routine); Ordered 04/26/22 Ordered By: Aby Reed Admission Data Admit Date/Time: 04/20/22 17:14 Attending Provider: Aby Reed Admit Provider: Sanjiv Avendano Primary Care Provider: Demarcus Nicholson Other Providers: Sanjiv Avendano Coding Level of Care Code D/C DAY MANAGEMENT >30 MINS Diagnoses Bacteremia R78.81 Catheter-associated urinary tract infection T83.511A; N39.0 Bilateral arm weakness R29.898 Cervical spinal stenosis M48.02 Epididymitis N45.1 Bilateral cellulitis of lower leg L03.116; L03.115 Supratherapeutic INR R79.1 Celiac disease K90.0 Morbid obesity E66.01 CAD (coronary atherosclerotic disease) I25.10 HTN (hypertension) I10 Hypertension type: essential hypertension Calcium nephrolithiasis N20.0 Sleep apnea, organic G47.30 H/O mitral valve repair Z98.890 H/O aortic root repair Z98.890 History of CVA (cerebrovascular accident) Z86.73 Hirschsprung's disease Q43.1 Pulmonary emboli I26.99 DM type 2 (diabetes mellitus, type 2) E11.69; Z79.4 Diabetes mellitus shelter insulin use: with shelter use Diabetes mellitus complication status: with other specified complication Paraplegia G82.20 Hypomagnesemia E83.42 Chronic pain syndrome G89.4 Acute respiratory acidosis E87.2
[2022-04-26 16:36] LABS: Partial Thromboplastin Time 56.1 Seconds (21.0-31.0)
[2022-04-27] MEDS: HEPARIN SODIUM/DEXTROSE 25,000 UNITS/500 ML BAG IV SCH ×2 (04:32→19:42)
[2022-04-27 07:57] LABS: Partial Thromboplastin Ratio 1.9
[2022-04-27] MEDS: carvediloL 6.25 MG TAB PO SCH ×2 (09:02→20:02)
[2022-04-27] MEDS: NYSTATIN POWDER 15GM BTL EXT SCH ×3 (09:02→20:02)
[2022-04-27] MEDS: ERTAPENEM SODIUM 1,000 MG in SYRINGE 0 ML IV SCH (09:04)
[2022-04-27] MEDS: LANTUS PER UNIT CHARGE SQ SCH ×2 (09:15→21:16)
[2022-04-27] MEDS: INSULIN ASPART PER UNIT SC SCH ×4 (09:15→21:15)
[2022-04-27] MEDS: aMILoride HCL 5 MG TAB PO SCH (10:18)
[2022-04-27] MEDS: GABAPENTIN 300 MG CAP PO SCH ×3 (10:18→20:03)
[2022-04-27] MEDS: allopurinoL 300 MG TAB PO SCH (10:18)
[2022-04-27] MEDS: FAMOTIDINE 40 MG TABLET PO SCH (10:18)
[2022-04-27] MEDS: CHOLECALCIFEROL 1,000 UNITS 25 MCG TAB PO SCH (10:18)
[2022-04-27] MEDS: oxyCODONE HCL IR 5 MG TAB (IMMEDIATE RELEASE) PO PRN ×2 (10:52→20:08)
--- NOTE | 2022-04-27 12:24 | Hospitalist Progress Note ---
Date of Service Late entry for DOS April 26, 2022 Assessment & Plan (1) Bacteremia: Plan: 2nd E coli source - UTI, left-sided kidney stone improved/resolving repeat blood cx's 04/22/22 negative initially treated with IV rocephin - first dose was 04/20/22 changed rocephin to once-daily IV ertapenem 04/23/22 as urine culture also grew ESBL Klebsiella in addition to e.coli left-sided kidney stone likely infected and acting as a nidus for ongoing recurrent UTIs will need 14 days of Rx from date of first negative culture (04/22/22) (2) Catheter-associated urinary tract infection: Plan: 2nd to e.coli AND ESBL klebsiella Had pike placed early February, then replaced 04/15/22 in the [facility] ER. Likely should change the pike again in the near-future. initial Rx - rocephin; changed to IV ertapenem 04/23/22. Kidney stone is likely acting as the nidus for recurrent UTIs. Kidney stone was scheduled to be intervened on late in April by Dr An, Urology, at [facility] - but ideally intervention is much sooner given the ongoing infection & now bacteremia. (3) Bilateral arm weakness: Plan: 2nd to severe cervical spine stenosis - culprit likely C4-C5 disease with large herniation present there with cord edema. Accounts for recent EMG showing C5 disease on left (EMG ordered by his primary neurologist, Dr Andrey Zaragoza, out of [place]). Ideally he would have can surgery for this but with bacteremia, ongoing UTIs, ongoing epididymitis, kidney stone, etc we simply can't operate right now. Appreciate Dr Garcia's consultation - he agrees urgent surgery at a tertiary care center would be ideal given the progressive weakness & myelopathy. Needs tertiary care for this issue - very high risk surgical candidate, h/o difficult intubation, etc. Called and spoke with [facility] 04/23/22 - accepted in transfer - MRI brain & c-spine pushed via PACS to [facility]. (4) Cervical spinal stenosis: Plan: see above discussion regarding need for cervical spine surgery he is having severe radicular pain of the left arm gabapentin increased to TID dosing on 04/24/22 (5) Epididymitis: Plan: Recent diagnosis in March. s/p cipro x 14+ days in March. Had clinically improved with less scrotal swelling and improved leukocytosis but never fully resolved the issue likely due to resistant pathogens as seen on urine culture this admission. Changed rocephin to ertapenem IV on 04/23/22 as urine culture grew both e.coli and ESBL klebsiella. No funguria at this time fortunately (has had c glabrata in the past). His scrotal erythema & swelling are MUCH improved since time of admission. His testicular swelling on the left is also improved. (6) Bilateral cellulitis of lower leg: Plan: Nearly resolved. Previously on IV vanco --> then IV zyvox --> now PO zyvox. Day #7 of therapy. Can consider stopping the zyvox after his doses on 04/26/22. (7) Supratherapeutic INR: Plan: Likely due to recent cipro usage. Resolved. Coumadin on hold since admission. INRdown to 1.8 on 04/25 and was started on heparin gtt for bridging Plan - since we are awaiting transfer to [place] for anticipated intervention of his L sided kidney stone and cervical spine surgery will continue to Hold coumadin. (8) Celiac disease: Plan: Recent diagnosis by his PCP. Via antibody testing?? Cont gluten free diet. (9) Morbid obesity: Plan: BMI 45-50 (10) CAD (coronary atherosclerotic disease): Plan: No ischemic symptoms at this time. Continue coreg 6.25mg BID. Not on a statin agent or aspirin chronically. (11) HTN (hypertension): Plan: Controlled. Cont coreg. (12) Calcium nephrolithiasis: Plan: CT abd/pelvis done at [facility] in late March during an outpatient urology visit. CT was done in preparation for surgery for a Large left sided kidney stone scheduled for late April in [place]. Dr Cadet had initiated the referral to [facility] earlier this summer as Dr Cadet had attempted stone treatment without success. The stone is felt to be the reason for his recurrent UTIs. Neurogenic bladder as a result of his c-spine myelopathy could also be contributing to his recurrent UTIs. earlier intervention on the stone needed - likely to keep having more UTI if stone is left alone. see above discussions. (13) Sleep apnea, organic: Plan: Does not use any device at home - his prior BIPAP machine was recalled but he never got a replacement unit. Sleep study was done years ago in [place]. Continues to have mild resp acidosis despite compliance with BIPAP during this hospitalization. Respiratory aware - they are increasing his pressures on the BIPA and repeat VBG on day of discharge much improved, less CO retention. Plan is for BIPAP 16/5 moving forward. Patient counseled that his use of PO oxycodone makes him sleepy and the need for BIPAP compliance is especially important. 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 no issues with ostomy. (18) Pulmonary emboli: Plan: history of. holding coumadin. - heparin drip. (19) DM type 2 (diabetes mellitus, type 2): Plan: a1c 8.1% in 2020. controlled at this time. cont lantus BID. cont novolog - correction 12, carb ratio 1:4. (20) Paraplegia: Plan: acquired, 2nd to strokes in the past now with b/l arm weakness 2nd c-spine spinal stenosis as above (21) Hypomagnesemia: Plan: improved s/p IV replacement and implementation of 5mg of daily amiloride at home is on finerenone and this can be continued (22) Chronic pain syndrome: Plan: previously on oxycodone 30mg TID has been on narcotics for several years per PDMP in light of ANIBAL and resp acidosis he must use BIPAP on nightly basis oxy dose decreased to 15mg TID PRN (30mg dose is very sedating for him despite long-term use of this dose based on records) (23) Acute respiratory acidosis: Plan: acute/chronic resp acidosis HS BIPAP BIPAP for naps as well pressures increased to 16/5 Plan updated pt's brother Mamadou ([phone]) several times this week in light of refractory/recurrent UTI and now bacteremia ALONG WITH severe C4-C5 spinal stenosis causing myelopathy and progressive arm/hand weakness he needs transfer to [facility] for urgent intervention of kidney stones, sterilization of his urine and blood, and then intervention of his cervical spine he depends on his left hand for nearly all ADLS and loss of this would lead to quadriplegia (was driving up until a few months ago, fed himself independently, etc) patient accepted at [facility] Admission and Anticipated Discharge Date Admission Date: April 20, 2022 Subjective Pt feeling fine except LUE pain. Using BiPAP and tolerating. Review of Systems Review of Systems: All systems reviewed & are unremarkable except as noted in HPI & below Physical Exam Physical Exam: gen - morbidly obese, NAD, very awake/alert HENT - MMM, no lesions neck - no JVD heart - RRR, s1 s2, 1/6 CATARINA LSB lungs - decreased BS b/l bases; no wheezes or rales abd - distended (baseline); BS+, multiple scars present, ileostomy with brown stool right lower abdomen, NT ext - 2+ edema b/l, pulses 2+ b/l skin - cellulitis b/l legs much improved; likely 75+% resolved; mild erythema present but no warmth psych - a/o x 3 Results & Data Results & Data ([facility]) Vital Signs (Past 12 Hours) Vital Signs Temp Pulse Pulse Resp BP Pulse Ox O2 Del Method 04/27/22 11:16 36.8 C 90 18 152/83 H 90 04/27/22 08:00 88 04/27/22 08:00 Room Air 04/27/22 08:18 36.6 C 86 18 116/73 92 04/27/22 07:30 36.7 C 96 H 18 107/63 97 04/27/22 03:30 90 18 91 04/27/22 03:20 37.2 C 87 18 112/74 95 BiPAP FiO2 04/27/22 11:16 04/27/22 08:00 04/27/22 08:00 04/27/22 08:18 04/27/22 07:30 04/27/22 03:30 21 04/27/22 03:20 PG Care Time/CCT Total # of Minutes Spent Total Time Spent with Patient: Total time spent is greater than 50% in coordination of care (as documented) at patient's floor/unit and/or counseling patient: Coding Level of Care Code 06298 Subseq Hosp Care Lvl 2 Diagnoses Bacteremia R78.81 Catheter-associated urinary tract infection T83.511A; N39.0 Bilateral arm weakness R29.898 Cervical spinal stenosis M48.02 Epididymitis N45.1 Bilateral cellulitis of lower leg L03.116; L03.115 Supratherapeutic INR R79.1 Celiac disease K90.0 Morbid obesity E66.01 CAD (coronary atherosclerotic disease) I25.10 HTN (hypertension) I10 Hypertension type: essential hypertension Calcium nephrolithiasis N20.0 Sleep apnea, organic G47.30 H/O mitral valve repair Z98.890 H/O aortic root repair Z98.890 History of CVA (cerebrovascular accident) Z86.73 Hirschsprung's disease Q43.1 Pulmonary emboli I26.99 DM type 2 (diabetes mellitus, type 2) E11.69; Z79.4 Diabetes mellitus terminal gauger insulin use: with terminal gauger use Diabetes mellitus complication status: with other specified complication Paraplegia G82.20 Hypomagnesemia E83.42 Chronic pain syndrome G89.4 Acute respiratory acidosis E87.2 (1) HTN (hypertension) Hypertension type: essential hypertension Qualified Code(s): I10 - Essential (primary) hypertension (2) DM type 2 (diabetes mellitus, type 2) Diabetes mellitus terminal gauger insulin use: with terminal gauger use Diabetes mellitus complication status: with other specified complication Qualified Code(s): E11.69 - Type 2 diabetes mellitus with other specified complication; Z79.4 - terminal gauger (current) use of insulin
--- NOTE | 2022-04-27 12:31 | Hospitalist Progress Note ---
Date of Service April 27, 2022 Assessment & Plan (1) Bacteremia: Plan: 2nd E coli source - UTI, left-sided kidney stone improved/resolving repeat blood cx's 04/22/22 negative initially treated with IV rocephin - first dose was 04/20/22 changed rocephin to once-daily IV ertapenem 04/23/22 as urine culture also grew ESBL Klebsiella in addition to e.coli left-sided kidney stone likely infected and acting as a nidus for ongoing recurrent UTIs will plan to keep on IV ertapenem until time of his now outpatient stone treatment at [facility] on 05/18/22 Needs home IV abx as no longer being transferred to [facility] (2) Catheter-associated urinary tract infection: Plan: 2nd to e.coli AND ESBL klebsiella Had pike placed early February, then replaced 04/15/22 in the [facility] ER. Likely should change the pike again in the near-future. initial Rx - rocephin; changed to IV ertapenem 04/23/22. Kidney stone is likely acting as the nidus for recurrent UTIs. Kidney stone was scheduled to be intervened on late in April by Dr An, Urology, at [facility] - but ideally intervention is much sooner given the ongoing infection & now bacteremia. However, after discussions with [facility] again on 04/27 with triage officer Sr. Cunha who discussed case with Urology and SPine SUrgery--> plan now is patient does NOT need transfer and can keep his regularly scheduled appointments with Urology in Apr (3) Bilateral arm weakness: Plan: 2nd to severe cervical spine stenosis - culprit likely C4-C5 disease with large herniation present there with cord edema. Accounts for recent EMG showing C5 disease on left (EMG ordered by his primary neurologist, Dr Andrey Zaragoza, out of [place]). Ideally he would have can surgery for this but with bacteremia, ongoing UTIs, ongoing epididymitis, kidney stone, etc we simply can't operate right now. Appreciate Dr Garcia's consultation - he agrees urgent surgery at a tertiary care center would be ideal given the progressive weakness & myelopathy. Needs tertiary care for this issue - very high risk surgical candidate, h/o difficult intubation, etc. Called and spoke with [facility] 04[place] - accepted in transfer initially - MRI brain & c-spine pushed via PACS to [facility]. Now after review of images, SPine SUrgeon Dr. Feldman now no 04/27 says patient can have expedited outpatient surgery and will see pt in office 05/02 at 1410 (4) Cervical spinal stenosis: Plan: see above discussion regarding need for cervical spine surgery he is having severe radicular pain of the left arm gabapentin increased to TID dosing on 04/24/22 (5) Epididymitis: Plan: Recent diagnosis in March. s/p cipro x 14+ days in March. Had clinically improved with less scrotal swelling and improved leukocytosis but never fully resolved the issue likely due to resistant pathogens as seen on urine culture this admission. Changed rocephin to ertapenem IV on 04/23/22 as urine culture grew both e.coli and ESBL klebsiella. No funguria at this time fortunately (has had c glabrata in the past). His scrotal erythema & swelling are MUCH improved since time of admission. His testicular swelling on the left is also improved. (6) Bilateral cellulitis of lower leg: Plan: Nearly resolved. Previously on IV vanco --> then IV zyvox -->then PO zyvox. completed 7 days of therapy. (7) Supratherapeutic INR: Plan: Likely due to recent cipro usage. Resolved. Coumadin on hold since admission. INR down to 1.8 on 04/25 and was started on heparin gtt for bridging Now that he won't be having surgery in near future, can restart coumadin (8) Celiac disease: Plan: Recent diagnosis by his PCP. Via antibody testing?? Cont gluten free diet. (9) Morbid obesity: Plan: BMI 45-50 (10) CAD (coronary atherosclerotic disease): Plan: No ischemic symptoms at this time. Continue coreg 6.25mg BID. Not on a statin agent or aspirin chronically. (11) HTN (hypertension): Plan: Controlled. Cont coreg. (12) Calcium nephrolithiasis: Plan: [place] abd[place]pelvis [place] [facility] [place] late March during an outpatient urology visit. CT was done in preparation for surgery for a Large left sided kidney stone scheduled for late April in [place]. Dr Cadet had initiated the referral to [facility] earlier this summer as Dr Cadet had attempted stone treatment without success. The stone is felt to be the reason for his recurrent UTIs. Neurogenic bladder as a result of his c-spine myelopathy could also be contributing to his recurrent UTIs. -intervention on the stone needed - likely to keep having more UTI if stone is left alone. see above discussions.Plan to keep abx on through time of Urology procedure- needs percutaneous stone extraction (13) Sleep apnea, organic: Plan: Does not use any device at home - his prior BIPAP machine was recalled but he never got a replacement unit. Sleep study was done years ago in [place]. Continues to have mild resp acidosis despite compliance with BIPAP during this hospitalization. Respiratory aware - they are increasing his pressures on the BIPA and repeat VBG on day of discharge much improved, less CO retention. Plan is for BIPAP 16/5 moving forward.Order given to CM to arrange for home use Patient counseled that his use of PO oxycodone makes him sleepy and the need for BIPAP compliance is especially important. 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 no issues with ostomy. (18) Pulmonary emboli: Plan: history of. holding coumadin but restarting today - heparin drip. to continue until therapeutic and can bridge with Lovenox at home after discharge (19) DM type 2 (diabetes mellitus, type 2): Plan: a1c 8.1% in 2020. controlled at this time. cont lantus BID. cont novolog - correction 12, carb ratio 1:4. (20) Paraplegia: Plan: acquired, 2nd to strokes in the past now with b/l arm weakness 2nd c-spine spinal stenosis as above (21) Hypomagnesemia: Plan: improved s/p IV replacement and implementation of 5mg of daily amiloride at home is on finerenone and this can be continued (22) Chronic pain syndrome: Plan: previously on oxycodone 30mg TID has been on narcotics for several years per PDMP in light of ANIBAL and resp acidosis he must use BIPAP on nightly basis oxy dose decreased to 15mg TID PRN (30mg dose is very sedating for him despite long-term use of this dose based on records) (23) Acute respiratory acidosis: Plan: acute/chronic resp acidosis HS BIPAP BIPAP for naps as well pressures increased to 16/5 Plan pt's brother Mamadou ([phone]) No longer accepted at [facility], plan now for home IV abx and close outpt f/u with [facility] and [facility] Admission and Anticipated Discharge Date Admission Date: April 20, 2022 Subjective Pt feeling fine except LUE pain. Using BiPAP and tolerating. Moving bowels. Disappointed [facility] has now rejected him and wants him to do everything outpatient Tele with NSR normal rates Review of Systems Review of Systems: All systems reviewed & are unremarkable except as noted in HPI & below Physical Exam Physical Exam: gen - morbidly obese, NAD, very awake/alert HENT - MMM, no lesions neck - no JVD heart - RRR, s1 s2, 1/6 CATARINA LSB lungs - decreased BS b/l bases; no wheezes or rales abd - distended (baseline); BS+, multiple scars present, ileostomy with brown stool right lower abdomen, NT ext - 2+ edema b/l, pulses 2+ b/l skin - cellulitis b/l legs much improved; likely 75+% resolved; mild erythema present but no warmth psych - a/o x 3 Results & Data Results & Data ([facility]) Vital Signs (Past 12 Hours) Vital Signs Temp Pulse Pulse Resp BP Pulse Ox O2 Del Method 04/27/22 11:16 36.8 C 90 18 152/83 H 90 04/27/22 08:00 88 04/27/22 08:00 Room Air 04/27/22 08:18 36.6 C 86 18 116/73 92 04/27/22 07:30 36.7 C 96 H 18 107/63 97 04/27/22 03:30 90 18 91 04/27/22 03:20 37.2 C 87 18 112/74 95 BiPAP FiO2 04/27/22 11:16 04/27/22 08:00 04/27/22 08:00 04/27/22 08:18 04/27/22 07:30 04/27/22 03:30 21 04/27/22 03:20 PG Care Time/CCT Total # of Minutes Spent Total Time Spent with Patient: Total time spent is greater than 50% in coordination of care (as documented) at patient's floor/unit and/or counseling patient: Coding Level of Care Code 06693 Subseq Hosp Care Lvl 3 Diagnoses Bacteremia R78.81 Catheter-associated urinary tract infection T83.511A; N39.0 Bilateral arm weakness R29.898 Cervical spinal stenosis M48.02 Epididymitis N45.1 Bilateral cellulitis of lower leg L03.116; L03.115 Supratherapeutic INR R79.1 Celiac disease K90.0 Morbid obesity E66.01 CAD (coronary atherosclerotic disease) I25.10 HTN (hypertension) I10 Hypertension type: essential hypertension Calcium nephrolithiasis N20.0 Sleep apnea, organic G47.30 H/O mitral valve repair Z98.890 H/O aortic root repair Z98.890 History of CVA (cerebrovascular accident) Z86.73 Hirschsprung's disease Q43.1 Pulmonary emboli I26.99 DM type 2 (diabetes mellitus, type 2) E11.69; Z79.4 Diabetes mellitus mcc insulin use: with emt intermediate use Diabetes mellitus complication status: with other specified complication Paraplegia G82.20 Hypomagnesemia E83.42 Chronic pain syndrome G89.4 Acute respiratory acidosis E87.2 (1) HTN (hypertension) Hypertension type: essential hypertension Qualified Code(s): I10 - Essential (primary) hypertension (2) DM type 2 (diabetes mellitus, type 2) Diabetes mellitus mcc insulin use: with emt intermediate use Diabetes mellitus complication status: with other specified complication Qualified Code(s): E11.69 - Type 2 diabetes mellitus with other specified complication; Z79.4 - emt intermediate (current) use of insulin
[2022-04-27] MEDS ORDERED: WARFARIN SOD 2.5 MG TAB PO SCH (16:00)
[2022-04-28 07:20] LABS: Basophils # (auto) 0.04 K/uL (0-0.2); Basophils % (auto) 0.5 %; Eosinophils # (auto) 0.16 K/uL (0-0.50); Hematocrit (blood only) 37.7 % (40.1-51.0); Hemoglobin 12.2 g/dl (14.0-18.0); Immature Granulocytes # (auto) 0.06 K/uL (0.00-0.02); Immature Granulocytes % (auto) 0.8 %; Lymphocytes # (auto) 1.41 K/uL (1.2-3.4); Lymphocytes % (auto) 17.8 %; Mean Corpuscular Hemoglobin 29.8 pg (25.0-34.0); Mean Corpuscular Hgb Conc 32.4 g/dL (32.0-36.0); Mean Corpuscular Volume 92.2 fL (80.0-100.0); Mean Platelet Volume 8.6 fL (9.4-12.4); Monocytes # (auto) 0.31 K/uL (0.24-0.82); Monocytes % (auto) 3.9 %; Neutrophils # (auto) 5.92 K/uL (1.4-6.5); Platelet Count 144 K/uL (130-400); RDW Standard Deviation 52.5 fL (36.4-46.3); Red Blood Count 4.09 M/uL (4.63-6.08)
[2022-04-28] MEDS: CHOLECALCIFEROL 1,000 UNITS 25 MCG TAB PO SCH (07:38)
[2022-04-28] MEDS: allopurinoL 300 MG TAB PO SCH (07:38)
[2022-04-28] MEDS: FAMOTIDINE 40 MG TABLET PO SCH (07:38)
[2022-04-28] MEDS: aMILoride HCL 5 MG TAB PO SCH (07:38)
[2022-04-28] MEDS: GABAPENTIN 300 MG CAP PO SCH (07:38)
[2022-04-28] MEDS: carvediloL 6.25 MG TAB PO SCH (07:38)
[2022-04-28] MEDS: LANTUS PER UNIT CHARGE SQ SCH (07:38)
[2022-04-28] MEDS: NYSTATIN POWDER 15GM BTL EXT SCH (07:39)
[2022-04-28] MEDS: INSULIN ASPART PER UNIT SC SCH (07:44)
[2022-04-28] MEDS: ERTAPENEM SODIUM 1,000 MG in SYRINGE 0 ML IV SCH (07:44)
[2022-04-28 07:54] LABS: BUN Creatinine Ratio 14.3 (10-20); Calcium 8.5 mg/dl (8.5-10.1); Creatinine Clr Calc Pharmacy 109.7 ml/min; Est GFR (African American) 88.9 ml/min; Est GFR (Non-African American) 76.7 ml/min; Potassium 4.1 mmol/L (3.5-5.1)
--- NOTE | 2022-04-28 07:56 | Discharge Summary ---
Date of Service April 28, 2022 Admission HPI Per Admitting Provider Mr Grajeda is a complicated 51yo male with history of acquired paraplegia, prior endocarditis, chronic coumadin use, h/o PE, T2DM, morbid obesity, CAD, CVA, CKD stage 3, kidney stones, recurrent UTIs, h/o mitral valve repair, h/o aortic root repair, Hirschsprung's disease s/p ileostomy creation, and prior Hepatitis C. Over this summer he has had difficulties with a left-sided kidney stone, b/l epididymitis, and urinary retention requiring pike catheter placement on 02/18/22 (and replacement on 04/15/22). In addition he has had 3-4 months of progressive bilateral upper extremity weakness, L>R, especially of the left hand. He is right handed, but has favored his left hand in use of his powerchair, driving a car, and other ADLs. It is now difficult to feed himself, use his powerchair, etc. He saw his primary neurologist, Dr Andrey Zaragoza, in [place] earlier this month. EMGs were obtained and, to his knowledge, may have shown C5 disease? He is scheduled to have MRI brain and MRI cervical spine in April due to the progressive upper extremity weakness. He also mentions his PCP has done considerable blood work and other tests this summer to determine if there are other conditions present contributing to the b/l arm/hand weakness. He was told by his PCP that he had celiac disease (new diagnosis for him) and was told to start a gluten-free diet. He has followed such for about 2 months. When asked what brought him to the hospital today he clearly stated it was out of concern for his worsening b/l upper extremity weakness. With respect to the recent diagnosis of epididymitis and UTI - seen initially at [facility] in early March. Prescribed cipro x 10 days on 04/01/22. Culture results not available. Then seen in our ER on 04/02/22 due to scrotal pain on the left side. Diagnosed with b/l epididymitis. Told to continue the cipro. His scrotal/testicular pain improved with cipro and on 04/12/22 his PCP reordered an additional 14 day course of cipro. The scrotal swelling is "much better" per the patient. On 04/12/22 he was placed on a course of prednisone 20mg BID for his upper body weakness. He states his BSGs were very high with such and it did not provide any impro vement in his weakness thus he stopped the prednisone after a few days. Finally, on 04/13/22, he was seen in the [facility] clinic in [place] for his left-sided kidney stone. CT a/p was obtained during that visit showing - CT ABD/PELVIS WO IV/ORAL CONTRAST 02/10/2019 9:44 AM FINDINGS: Tubes, catheters and devices: Pike catheter appears to be in place but the balloon appears to be inflated the in the urethra. Small amount of gas in the bladder likely associated with presence of Pike catheter. Lungs: There is left basilar consolidation. Pleural spaces: Trace pleural effusions seen, left greater than right. Liver: Normal. No mass. Gallbladder and bile ducts: Multiple calcified gallstones are present. Pancreas: Normal. No ductal dilation. Spleen: Normal. No splenomegaly. Adrenal glands: Normal. No mass. Kidneys and ureters: Left renal nonobstructing calculus is similar to previous in size. New calculus in the lower pole of left kidney measures approximately 6 mm. Pinpoint right renal calculi are nonobstructive. No definite ureteral calculi identified. Interval development of exophytic lesion posterolaterally off the left kidney, measuring 1.8 cm in diameter. It is not definitively characterized but appears to be solid. Stomach and bowel: There is a right anterior abdominal ostomy site. Appendix: No evidence of appendicitis. Intraperitoneal space: Unremarkable. No free air. No significant fluid collection. Vasculature: Unremarkable. No abdominal aortic aneurysm. Lymph nodes: Unremarkable. No enlarged lymph nodes. Urinary bladder: There is moderate bladder wall thickening consistent with incomplete distension, chronic outflow obstruction, or cystitis. Reproductive: Unremarkable as visualized. Bones/joints: There are moderate degenerative changes present. Soft tissues: There appears to be a bowel containing periumbilical hernia. IMPRESSION: 1. New exophytic lesion, which appear appears to be solid, extending of the left kidney. Primary neoplasm such as are renal cell carcinoma not excluded. Recommend follow-up with dedicated CT IV study with renal protocol versus ultrasound if patient cannot tolerate IV contrast. 2. Bilateral renal calculi are nonobstructive 3. Pike catheter balloon appears to be dilated in the urethra. Small amount of gas in the bladder likely secondary Pike catheter . 4. There appears to be a bowel containing periumbilical hernia. (again, on 04/15, he came back to our ER to have his pike removed and have a new pike placed - since the exchange he has had no issues) Principal Diagnosis Catheter-associated UTI, E. coli bacteremia, Cervical spine stenosis with myelopathy Discharge Exam gen - morbidly obese, NAD, very awake/alert HENT - MMM, anicteric sclerae heart - RRR, s1 s2, 1/6 CATARINA LSB lungs - decreased BS b/l bases; no wheezes or rales abd - distended (baseline); BS+, multiple scars present, ileostomy with brown stool right lower abdomen, NT ext - 2+ edema b/l skin - cellulitis b/l legs much improved psych - a/o x 3 Discharge Data Allergies Allergy/AdvReac Type Severity Reaction Status Date / Time sulfamethoxazole AdvReac Unknown "Levels Verified 02/17/22 00:49 [From Bactrim] were up"-per [facility] trimethoprim [From Bactrim] AdvReac Unknown "Levels Verified 02/17/22 00:49 were up"-per [facility] Consultations 04/20/22 17:08 ED Decision to Admit Stat Ordered Studies 04/20/22 18:18 MR brain wo/w con Routine MR cervical spine wo/w con Routine Hospital Course (1) Bacteremia: 2nd E coli source - UTI, left-sided kidney stone resolved repeat blood cx's 04/22/22 negative initially treated with IV rocephin - first dose was 04/20/22 changed rocephin to once-daily IV ertapenem 04/23/22 as urine culture also grew ESBL Klebsiella in addition to e.coli left-sided kidney stone likely infected and acting as a nidus for ongoing recurrent UTIs will plan to keep on IV ertapenem until time of his now outpatient stone treatment at [facility] on 05/18/22 Needs home IV abx as no longer being transferred to [facility] Has US-guided PIV left arm placed 04/21/22 (2) Catheter-associated urinary tract infection: 2nd to e.coli AND ESBL klebsiella Had pike placed early February, then replaced 04/15/22 in the [facility] ER. Likely should change the pike again in the [id number] do this with home health initial Rx - rocephin; changed to IV ertapenem 04/23/22. Kidney stone is likely acting as the nidus for recurrent UTIs. Kidney stone was scheduled to be intervened on late in April by Dr An, Urology, at [facility] - but ideally intervention is much sooner given the ongoing infection & now bacteremia. However, after discussions with [facility] again on 04/27 with triage officer Sr. Cunha who discussed case with Urology and SPine SUrgery--> plan now is patient does NOT need transfer and can keep his regularly scheduled appointments with Urology in Apr (3) Bilateral arm weakness: 2nd to severe cervical spine stenosis - culprit likely C4-C5 disease with large herniation present there with cord edema. Accounts for recent EMG showing C5 disease on left (EMG ordered by his primary neurologist, Dr Andrey Zaragoza, out of [place]). Ideally he would have can surgery for this but with bacteremia, ongoing UTIs, ongoing epididymitis, kidney stone, etc we simply can't operate right now. Appreciate Dr Garcia's consultation - he agrees urgent surgery at a tertiary care center would be ideal given the progressive weakness & myelopathy. Needs tertiary care for this issue - very high risk surgical candidate, h/o diff icult intubation, etc. Called and spoke with [facility] 04/23/22 - accepted in transfer initially - MRI brain & c-spine pushed via PACS to [facility]. Now after review of images, SPine SUrgeon Dr. Feldman now no 04/27 says patient can have expedited outpatient surgery and will see pt in office 05/02 at 1410 (4) Cervical spinal stenosis: see above discussion regarding need for cervical spine surgery he is having severe radicular pain of the left arm gabapentin increased to TID dosing on 04/24/22 (5) Epididymitis: Recent diagnosis in March. s/p cipro x 14+ days in March. Had clinically improved with less scrotal swelling and improved leukocytosis but never fully resolved the issue likely due to resistant pathogens as seen on u rine culture this admission. Changed rocephin to ertapenem IV on 04/23/22 as urine culture grew both e.coli and ESBL klebsiella. No funguria at this time fortunately (has had c glabrata in the past). His scrotal erythema & swelling are MUCH improved since time of admission. His testicular swelling on the left is also improved. (6) Bilateral cellulitis of lower leg: resolved. Previously on IV vanco --> then IV zyvox -->then PO zyvox. completed 7 days of therapy (7) Supratherapeutic INR: Likely due to recent cipro usage. Resolved. Coumadin was on hold since admission. INR down to 1.8 on 04/25 and was started on heparin gtt for bridging Now that he won't be having surgery in near future, restarted coumadin 04/27 continue coumadin at usual doses, check INR at home in 3 days. He will see Urology for preop on 05/10 and they can advise on when to HOLD coumadin again (8) Celiac disease: Recent diagnosis by his PCP. Via antibody testing?? Cont gluten free diet. (9) Morbid obesity: BMI 45-50 (10) CAD (coronary atherosclerotic disease): No ischemic symptoms at this time. Continue coreg 6.25mg BID. Not on a statin agent or aspirin chronically. (11) HTN (hypertension): Controlled. Cont coreg. (12) Calcium nephrolithiasis: CT abd/pelvis done at [facility] in late March during an outpatient urology visit. CT was done in preparation for surgery for a Large left sided kidney stone scheduled for late April in [place]. Dr Cadet had initiated the referral to [facility] earlier this summer as Dr Cadet had attempted stone treatment without success. The stone is felt to be the reason for his recurrent UTIs. Neurogenic bladder as a result of his c-spine myelopathy could also be contributing to his recurrent UTIs. -intervention on the stone needed - likely to keep having more UTI if stone is left alone. see above discussions.Plan to keep abx on through time of Urology procedure- needs percutaneous stone extraction (13) Sleep apnea, organic: Does not use any device at home - his prior BIPAP machine was recalled but he never got a replacement unit. Sleep study was done years ago in [place]. Continued to have mild resp acidosis despite compliance with BIPAP during this hospitalization. Plan is for BIPAP 03/01 moving forward except his [facility] does not have any machines available when the patient and I called together on the phone. So unfortunately, he will continue to not have BiPAP at home Patient counseled that his use of PO oxycodone makes him sleepy-recommended going down to 15mg tid prn but he is concerned about doing this dose at home due to severe pain in neck and left shoulder. 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 no issues with ostomy. (18) Pulmonary emboli: history of. continue coumadin (19) DM type 2 (diabetes mellitus, type 2): a1c 8.1% in 2020. controlled at this time. continue home insulin dosing (20) Paraplegia: acquired, 2nd to strokes in the past now with b/l arm weakness 2nd c-spine spinal stenosis as above (21) Hypomagnesemia: improved s/p IV replacement and implementation of 5mg of daily amiloride at home is on finerenone and this can be continued (22) Chronic pain syndrome: previously on oxycodone 30mg TID has been on narcotics for several years per PDMP oxy dose decreased to 15mg TID PRN (30mg dose is very sedating for him despite long-term use of this dose based on records) but as above, he is resistant to using the lower dose at home-encouraged to use 15mg dose and only taking 30mg when really needed (23) Acute respiratory acidosis: acute/chronic resp acidosis improved on BiPAP but as above, no BiPAP needed Plan Dispo-dc to home with home health and IV abx No longer accepted at [facility], plan now for home IV abx and close outpt f/u with [facility] Spine SUrgery and Urology Home Health Attestation I certify that this patient is under my care and that I, or a physicians personal assistant working with me, had a face to-face encounter that meets the home health [id number] encounter requirements with this patient. The encounter with the patient was in whole, or in part, for the following medical condition, which is the primary reason for home health care (list medical condition): UTI I certify that, based on my findings, the following services are medically necessary home health services: My clinical findings support the need for the above services because: Skilled Nsg Assessment Skilled Nsg Instruction New Medications S/S to Report to Provider Weekly Labs Further, I certify that my clinical findings support that this patient is homebound (i.e. absences from home require considerable and taxing effort and are for medical reasons or druze services or infrequently or of short duration when for other reasons) because: Chair Bound; Requires Transfer Assist Supportive Aid - Wheelchair Transportation Assistance/Unable to Leave Home Unassisted Certification for Home Health Services: Based on the above findings, I certify that this patient is confined to the home and needs intermittent jail care, physical therapy and/or speech therapy or continues to need occupational therapy. The patient is under my care, and I have initiated the establishment of the plan of care. This patient will be followed by a physician who will periodically review the plan of care. Total Time Total Time Spent Total Time Spent (In Minutes): 45 min Discharge Plan Discharge Items Patient Disposition: Home - Home Health Services Reason For Visit: CATHETER-ASSOCIATED UTI Discharge Diagnosis: E. coli bacteremia and catheter-associated UTI, Severe cervical spine stenosis,myelopathy Condition on Discharge: Fair Activity: As commented below Lifting: None Bathing: No limitations Exercise/Sports: Rest today Non-emergency contact: Primary Care Provider, Surgeon and Statue Maker Call non-emergency contact if: you have any medication questions, your symptoms worsen, your pain is not controlled and your pain is worsening Follow-up/Referrals: Demarcus Nicholson DO [Primary Care Provider] - (Follow up within 1-2 weeks) Diet: Carb Consistent or DM2 and Gluten Free Addtl Attending Provider Instructions: You were admitted with an infection in your urine that spread to your blood stream. This is likely due to the large kidney stone you have (bacteria stick to it). You should remain on your IV antibiotics through the time you have the kidney stone operated on to prevent recurrent infection. Please keep your appointments with Urology as planned. You were also found to have severe cervical spine stenosis with impingement on your cervical spine. This is causing your weakness in the upper arms. You need surgery for this and an appointment has been made for you through [employer] [facility] for 05/02/22 with the Surgeon. Your gabapentin dose was increased to add an extra dose at 2:00 PM each day. This will also help with your pain. Please continue on your coumadin until the Surgeon tells you to stop it and have your INR checked in 3 days. Your coumadin was held for many days and restarted on 04/27. You need to get a BiPAP from [facility] as soon as possible. Unfortunately, you did not qualify for this based on your current blood carbon dioxide here. Please discuss this with your PCP about getting a formal sleep study. It is suggested that you take a lower dose of oxycodone to prevent you from getting too drowsy without BiPAP support. Addtl Syruper Provider Instructions: Your appointments are with: Dr. Feldman of Spine Surgery at [facility] on 05/02/22 at 2:10 PM Internal Medicine for preoperative medical clearance on 05/10/22 at 3:10 PM Urology PA at [facility] on 05/10/22 at 4:00 PM Urology Surgery at [facility] on 05/18/22-time TBD Pending Studies at Discharge: No Stand-Alone Forms: My [facility] [employer], Smoking Cessation Medications and DC Order Prescriptions: New ertapenem 1 gram recon soln 1 g IV DAILY Qty: 14 0RF gabapentin 300 mg Capsule 300 mg PO DAILY@14 Qty: 30 0RF Continued allopurinol 300 mg tablet 300 mg PO QAM cholecalciferol (vitamin D3) 25 mcg (1,000 unit) capsule 25 mcg PO DAILY carvedilol 6.25 mg tablet 6.25 mg PO BID Qty: 60 6RF Rx Instructions: must administer with a meal/food Kerendia 10 mg tablet 10 mg PO DAILY gabapentin 300 mg capsule See Rx Instructions .ROUTE .COMPLEX Rx Instructions: take 2 capsules in the morning and 1 in the evening Toujeo SoloStar U-300 Insulin 300 unit/mL (1.5 mL) insulin pen 50 unit subcut BID famotidine [Pepcid] 40 mg tablet 40 mg PO QAM insulin aspart U-100 [Novolog Flexpen U-100 Insulin] 100 unit/mL Insulin Pen 0 unit SUBCUT TIDM warfarin 2.5 mg tablet 2.5 mg PO DAILY Rx Instructions: may adjust clotrimazole-betamethasone 1-0.05 % cream 1 applic TOPICAL BID PRN (Reason: affected area) nystatin 100,000 unit/gram powder 1 applic TOPICAL BID Changed oxycodone 30 mg tablet 15 - 30 mg PO TID PRN (Reason: pain) Qty: 20 0RF Discontinued cyclobenzaprine 10 mg tablet 10 mg PO BID PRN (Reason: muscle spasm) Qty: 20 0RF amoxicillin-pot clavulanate 875-125 mg tablet 1 tab PO BID Rx Instructions: ordered 02/23/22 take for 7 days ciprofloxacin HCl [Cipro] 500 mg tablet 500 mg PO BID Qty: 10 0RF Discharge Orders: Discharge Order (Routine); Ordered 04/28/22 Ordered By: Aby Reed Admission Data Admit Date/Time: 04/20/22 17:14 Attending Provider: Aby Reed Admit Provider: Sanjiv Avendano Primary Care Provider: Demarcus Nicholson Other Providers: Sanjiv Avendano Coding Level of Care Code D/C DAY MANAGEMENT >30 MINS Diagnoses Bacteremia R78.81 Catheter-associated urinary tract infection T83.511A; N39.0 Bilateral arm weakness R29.898 Cervical spinal stenosis M48.02 Epididymitis N45.1 Bilateral cellulitis of lower leg L03.116; L03.115 Supratherapeutic INR R79.1 Celiac disease K90.0 Morbid obesity E66.01 CAD (coronary atherosclerotic disease) I25.10 HTN (hypertension) I10 Hypertension type: essential hypertension Calcium nephrolithiasis N20.0 Sleep apnea, organic G47.30 H/O mitral valve repair Z98.890 H/O aortic root repair Z98.890 History of CVA (cerebrovascular accident) Z86.73 Hirschsprung's disease Q43.1 Pulmonary emboli I26.99 DM type 2 (diabetes mellitus, type 2) E11.69; Z79.4 Diabetes mellitus group home insulin use: with group home use Diabetes mellitus complication status: with other specified complication Paraplegia G82.20 Hypomagnesemia E83.42 Chronic pain syndrome G89.4 Acute respiratory acidosis E87.2
[2022-04-28 08:02] LABS: INR 1.3 (0.9-1.1); Partial Thromboplastin Ratio 2.4; Prothrombin Time 13.5 Seconds (9.0-12.0)
[2022-04-28 08:22] LABS: Partial Thromboplastin Time 65.3 Seconds (21.0-31.0)
== END 2022-04-28 09:53 | disposition home health service (06) | DRG 699 ==
LOC: ED 12:13 → SUATTDRO 17:14 → 2S 17:14

== ENCOUNTER 2022-05-20 16:37 | Inpatient (IN) ==
[2022-05-20] MEDS ORDERED: dexAMETHasone**PF** 10 MG/ML VIAL IV ONE (16:52)
[2022-05-20] MEDS ORDERED: SODIUM CHLORIDE 0.9% 500 ML IV SCH (17:00)
--- NOTE | 2022-05-20 17:18 | Emergency Department Note ---
Impression & Plan Cervical radiculopathy, Cervical spinal stenosis ED Provider Note NAME: AV LIVINGSTON AGE: 52 SEX: M : 1970 ARRIVES VIA: Ambulance INFORMANT: Patient, ED PROVIDER(S): Fish Goodwin DO CHIEF COMPLAINT: Weakness HPI: The patient is a 52-year-old male who has a history of myopathy. The patient is a chronic indwelling Velazquez. He also has a history of a CVA in the past. He normally requires care at home. He has multiple caregivers and lives with his parents. The patient started having worsening weakness in his upper extremities. He had a work-up for this over the course of March and was found to have cervical spine canal stenosis which was moderate to severe. He was felt to be a good candidate for surgical management. He has been unable to obtain surgical management because of his insurance. He started having worsening symptoms over the last few days. He called 911 and was brought to the emergency department for further evaluation. There is been no fever. He is being treated for urinary tract infection with IV antibiotic. He denies having any recent trauma. He states mostly he notices weakness in his upper extremities. He normally has no good strength in his lower extremities. ROS: See above HPI for pertinent positives & negatives. A total of 10 systems reviewed and were otherwise negative. PAST MEDICAL HISTORY: See Below PAST SURGICAL HISTORY: See Below FAMILY HISTORY: See Below SOCIAL HISTORY: See Below HOME MEDICATIONS: See Below ALLERGIES: See Below VITALS: See Below PHYSICAL EXAMINATION: GENERAL: Patient is awake alert in no acute distress patient is resting comfortably and showing no signs of anxiety EYES: The conjunctivae are clear. The pupils are round and reactive. The EARS, NOSE, MOUTH AND THROAT: The nose is without any evidence of any deformity. NECK: The neck is nontender and supple. RESPIRATORY: Normal respiratory effort is noted there is no evidence of wheezing rhonchi or rales CARDIOVASCULAR: Regular rate and rhythm noted there no murmurs rubs or gallops normal S1 normal S2. GASTROINTESTINAL: The abdomen is soft. Abdomen is nontender. MUSCULOSKELETAL/EXTREMITIES: There is no evidence of gross deformity full range of motion is noted in the hips and shoulders. SKIN: Skin is warm and dry. Pedal edema was noted bilaterally. NEUROLOGIC: Patient is awake alert and oriented x3. The patient is unable to raise either leg off the bed. 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 MEDICAL DECISION MAKING: The patient is a 52-year-old male who presented to the emergency department for an evaluation of weakness. The patient has a history of cervical spinal stenos is and canal stenosis. He was treated with IV steroids in the emergency department. I discussed the patient's laboratory and radiographic studies with him. He does have a chronic indwelling Velazquez. Urinalysis likely represents chronic infection. Will await culture prior to starting patient on any antibiotics. The patient was feeling somewhat improved on reevaluation. I discussed his case with the on-call [facility] hospitalist. Triage Nursing notes reviewed. Prior medical records reviewed Vital Signs: reviewed and remarkable for no significant abnormalities Differential diagnosis: Infection, dehydration, metabolic abnormality, hypo/hyperglycemia, electrolyte disturbance, anemia, hypoxia, cardiac sources, intracerebral event, toxicologic, neurologic, as well as other pathologies. ER treatment provided: See below Diagnostics interpreted by me: ECG: EKG was obtained in the emergency department. My interpretation is normal sinus rhythm at 87 bpm. First-degree AV block was noted. There is no ectopy. There is no acute ST segment abnormalities noted. This was compared to a tracing from April 20, 2022. No changes were noted. Cardiac Monitoring: An order was placed for continuous cardiac monitoring. The monitor shows a rate of 80 bpm with sinus rhythm. Laboratory studies: As stated above and show below. Imaging studies: See below Consultation(s): I discussed this case with Dr. Jack [facility]. Past Med/Surg History Medical History (Updated 05/20/22 @ 20:39 by Fish Goodwin DO) Celiac disease Chronic indwelling Velazquez catheter Chronic kidney disease, stage 3a follows with [facility] Coronary artery disease CABG x 1 2012-VG to LAD, multiple stents, follows with [facility] cardio Diastolic congestive heart failure EF 55-59% Difficult airway for intubation 01/18/22 Patient unable to be intubated with Glidescope 4 - good view but darci ble to pass ETT, Igel #5 easily placed and worked well DM type 2 (diabetes mellitus, type 2) IDDM GI bleed 2018 requiring 3 blood transfusions, transferred to [facility] with work-up not revealing clear cause per records Gout Hepatitis C TREATED Hirschsprung's disease History of blood transfusion 2018 in setting of GI bleed History of COVID-19 05/2021- no symptoms- no hospitalization History of CVA (cerebrovascular accident) 2012-admitted [facility] History of endocarditis TREATED AT [facility]-2012 History of GI bleed History of intravenous drug abuse Hx of pulmonary embolus Hyperlipidemia Morbid obesity Paraplegia Pulmonary emboli 05/2010-unknown cause- admitted and treated at [facility] Pulmonary hypertension Sleep apnea, organic NO DEVICE AT THIS TIME, HIS MACHINE WAS INVOLVED IN RECALL Surgical History H/O aortic root repair 05/2016- [facility] H/O mitral valve repair UNSURE-[facility]ER [facility] OR [facility] Hx of CABG 2012 [facility]- DUE TO ENDOCARDITIS, single vessel per records S/P brain surgery 2013- [facility] S/P cardiac cath S/P colostomy FOLLOWS W/ [facility] Family History Father Cardiac disorder Hypertension Prostate cancer Diabetes Coronary heart disease COPD (chronic obstructive pulmonary disease) Pacemaker Mother Hypertension Skin cancer Dementia Social History Smoking Status: Never smoker Tobacco Type: Cigarettes Second Hand Exposure: No; Hx Alcohol Use: No Hx Substance Use: Yes Last Used Substance: Hours (ago) Last Used Substance Other:: LAST NIGHT Preferred Language: Vincentian Communication Ability: Effective Clinical Laboratory Medical Director Required: No Beliefs That Will Affect Care: None marital status: Current Living Situation: Parent Current Living Situation Comment: PT HAS CAREGIVER AND LIVES W/ PARENTS ([place]) current occupational status: employed 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 How many Children do You have: 2 Feels Safe at Home: Yes Assistive Devices: Hospital Bed, Mechanical Lift and Wheelchair Allergies Allergies Allergy/AdvReac Type Severity Reaction Status Date / Time sulfamethoxazole AdvReac Unknown "Levels Verified 02/17/22 00:49 [From Bactrim] were up"-per [facility] trimethoprim [From Bactrim] AdvReac Unknown "Levels Verified 02/17/22 00:49 were up"-per [facility] Home Meds Home Medications Medication Instructions Recorded Confirmed insulin aspart U-100 100 unit/mL 0 unit subcut TIDM per sliding 10/08/18 02/24/22 (3 mL) subcutaneous pen (Novolog scale Flexpen U-100 Insulin aspart) gabapentin 300 mg capsule See Rx Instructions .Route .COMPLEX 01/14/19 02/24/22 famotidine 40 mg tablet (Pepcid) 40 mg PO QAM 05/27/19 02/24/22 allopurinol 300 mg tablet 300 mg PO QAM 01/23/20 02/24/22 cholecalciferol (vitamin D3) 25 25 mcg PO DAILY 01/23/20 02/24/22 mcg (1,000 unit) capsule insulin glargine U-300 conc 300 50 unit subcut BID 08/10/21 02/24/22 unit/mL (1.5 mL) subcutaneous pen (Toujeo SoloStar U-300 Insulin) warfarin 2.5 mg tablet 2.5 mg PO DAILY 08/13/21 02/24/22 finerenone 10 mg tablet (Kerendia) 10 mg PO DAILY 12/29/21 02/24/22 clotrimazole-betamethasone 1 1 applic topical BID PRN affected 02/24/22 02/24/22 %-0.05 % topical cream area nystatin 100,000 unit/gram topical 1 applic topical BID 02/24/22 02/24/22 powder Previous Rx's Medication Instructions Recorded carvedilol 6.25 mg tablet 6.25 mg PO BID #60 tabs 09/30/21 ertapenem 1 gram solution for 1 g IV DAILY #14 ea 04/26/22 injection gabapentin 300 mg capsule 300 mg PO DAILY@14 #30 caps 04/26/22 oxycodone 30 mg tablet 15 - 30 mg PO TID PRN pain #20 tabs 04/28/22 Results & Data (ED) Vital Signs Vital Signs - 24 hr 05/20/22 17:01 05/20/22 17:01 05/20/22 16:58 Temperature 36.9 C Temperature Source Oral Pulse Rate 88 Pulse Rate [Apical] Pulse Rhythm Regular Pulse Rhythm [Apical] Pulse Strength Normal Pulse Strength [Apical] Respiratory Rate 16 Respiratory Effort / Characteristics Non-Labored Respiratory Depth Normal Respiratory Pattern Regular Blood Pressure 124/87 Blood Pressure [Right Arm] Blood Pressure Mean 99 Blood Pressure Mean [Right Arm] Blood Pressure Position Sitting Blood Pressure Position [Right Arm] Pulse Oximetry 99 99 Oxygen Delivery Method Room Air Room Air Room Air Sepsis Recent Fever Within 48 Hours No Sepsis New/Unexplained Change in Mental Status No Sepsis Action Taken by Nursing No Action Required 05/20/22 16:58 05/20/22 18:58 Temperature 36.9 C Temperature Source Oral Pulse Rate Pulse Rate [Apical] 87 88 Pulse Rhythm Pulse Rhythm [Apical] Regular Regular Pulse Strength Pulse Strength [Apical] Normal Normal Respiratory Rate 16 20 Respiratory Effort / Characteristics Non-Labored Non-Labored Respiratory Depth Normal Normal Respiratory Pattern Regular Regular Blood Pressure Blood Pressure [Right Arm] 124/87 132/75 Blood Pressure Mean Blood Pressure Mean [Right Arm] 99 94 Blood Pressure Position Blood Pressure Position [Right Arm] Sitting Sitting Pulse Oximetry 99 98 Oxygen Delivery Method Room Air Room Air Sepsis Recent Fever Within 48 Hours Sepsis New/Unexplained Change in Mental Status Sepsis Action Taken by Retirement Medications Current Medication List: was personally reviewed by me Laboratory Data Attestation: I reviewed the patient's lab results. Result diagrams: 05/20/22 17:16 05/20/22 17:16 Lab Results 05/20/22 05/20/22 05/20/22 Range/Units 17:01 17:06 17:16 WBC (4.8-10.8) K/ul RBC (4.63-6.08) M/uL Hgb (14.0-18.0) g/dl Hct (40.1-51.0) % MCV (80.0-100.0) fL MCH (25.0-34.0) pg MCHC (32.0-36.0) g/dL RDW Std Deviation (36.4-46.3) fL RDW Coeff of Lorenzo (11.5-14.5) % Plt Count (130-400) K/uL MPV (9.4-12.4) fL Immature Gran % (Auto) % Neut % (Auto) % Lymph % (Auto) % [place] % (Auto) % Eos % (Auto) % Baso % (Auto) % Neut # (Auto) (1.4-6.5) K/uL Lymph # (Auto) (1.2-3.4) K/uL [place] # (Auto) (0.24-0.82) K/uL Eos # (Auto) (0-0.50) K/uL Baso # (Auto) (0-0.2) K/uL Immature Gran # (Auto) (0.00-0.02) K/uL PT 10.9 (9.0-12.0) Seconds INR 1.0 (0.9-1.1) APTT 39.5 H (21.0-31.0) Seconds PTT Ratio 1.4 Sodium (136-145) mmol/L Potassium (3.5-5.1) mmol/L Chloride (98-107) mmol/L Carbon Dioxide (21-32) mmol/L Anion Gap (3-11) BUN (6-23) mg/dl Creatinine (0.6-1.4) mg/dl Est Cr Clr Drug Dosing ml/min Est GFR ( Amer) ml/min Est GFR (Non-Af Amer) ml/min BUN/Creatinine Ratio (10-20) Glucose (70-99(Fasting)) mg/dl Calcium (8.5-10.1) mg/dl Magnesium (1.7-2.4) mg/dl Total Bilirubin (0.2-1.0) mg/dl AST (13-39) U/L ALT (7-52) U/L Alkaline Phosphatase (34-104) U/L Total Creatine Kinase (30-223) U/L Troponin I High Sens (0-20) pg/ml Total Protein (6.0-8.3) gm/dl Albumin (3.4-5.0) gm/dl Globulin (2.5-4.0) gm/dl Albumin/Globulin Ratio (0.9-2) TSH (0.300-4.500) uIu/ml Urine Color Yellow Urine Appearance Turbid A (Clear) Urine pH 5.5 (4.5-7.5) Ur Specific [place] 1.015 (1.000-1.030) Urine Protein 3+ H (Negative) Urine Glucose (UA) Negative (Negative) Urine Ketones Negative (Negative) Urine Blood 3+ H (Negative) Urine Nitrite Negative (Negative) Urine Bilirubin Negative (Negative) Urine Urobilinogen Negative (Negative) Ur Leukocyte Esterase 3+ H (Negative) Urine WBC (Auto) >30 H (0-5) /hpf Urine RBC (Auto) >30 H (0-4) /hpf U Hyaline Cast (Auto) 0 (0-5) /lpf U Epithel Cells (Auto) >30 H (0-5) /lpf Urine Bacteria (Auto) Negative (Negative) Urine Yeast Budding w/ Hyphae A (None Prsent) SARS-CoV-2, RNA, NAAT NEGATIVE (NEGATIVE) 05/20/22 05/20/22 05/20/22 Range/Units 17:16 17:16 17:16 WBC 10.13 (4.8-10.8) K/ul RBC 3.83 L (4.63-6.08) M/uL Hgb 12.0 L (14.0-18.0) g/dl Hct 36.8 L (40.1-51.0) % MCV 96.1 (80.0-100.0) fL MCH 31.3 (25.0-34.0) pg MCHC 32.6 (32.0-36.0) g/dL RDW Std Deviation 62.2 H (36.4-46.3) fL RDW Coeff of Lorenzo 17.7 H (11.5-14.5) % Plt Count 165 (130-400) K/uL MPV 10.1 (9.4-12.4) fL Immature Gran % (Auto) 0.9 % Neut % (Auto) 79.1 % Lymph % (Auto) 13.3 % [place] % (Auto) 4.0 % Eos % (Auto) 2.2 % Baso % (Auto) 0.5 % Neut # (Auto) 8.01 H (1.4-6.5) K/uL Lymph # (Auto) 1.35 (1.2-3.4) K/uL [place] # (Auto) 0.41 (0.24-0.82) K/uL Eos # (Auto) 0.22 (0-0.50) K/uL Baso # (Auto) 0.05 (0-0.2) K/uL Immature Gran # (Auto) 0.09 H (0.00-0.02) K/uL PT (9.0-12.0) Seconds INR (0.9-1.1) APTT (21.0-31.0) Seconds PTT Ratio Sodium 132 L (136-145) mmol/L Potassium 4.4 (3.5-5.1) mmol/L Chloride 103 (98-107) mmol/L Carbon Dioxide 23 (21-32) mmol/L Anion Gap 6 (3-11) BUN 18 (6-23) mg/dl Creatinine 1.24 (0.6-1.4) mg/dl Est Cr Clr Drug Dosing 100.2 ml/min Est GFR ( Amer) 78.1 ml/min Est GFR (Non-Af Amer) 67.4 ml/min BUN/Creatinine Ratio 14.5 (10-20) Glucose 275 H (70-99(Fasting)) mg/dl Calcium 8.5 (8.5-10.1) mg/dl Magnesium 1.4 L (1.7-2.4) mg/dl Total Bilirubin 0.7 (0.2-1.0) mg/dl AST 15 (13-39) U/L ALT 10 (7-52) U/L Alkaline Phosphatase 118 H (34-104) U/L Total Creatine Kinase 33 (30-223) U/L Troponin I High Sens 6.1 (0-20) pg/ml Total Protein 7.3 (6.0-8.3) gm/dl Albumin 3.0 L (3.4-5.0) gm/dl Globulin 4.3 H (2.5-4.0) gm/dl Albumin/Globulin Ratio 0.7 L (0.9-2) TSH 1.405 (0.300-4.500) uIu/ml Urine Color Urine Appearance (Clear) Urine pH (4.5-7.5) Ur Specific [place] (1.000-1.030) Urine Protein (Negative) Urine Glucose (UA) (Negative) Urine Ketones (Negative) Urine Blood (Negative) Urine Nitrite (Negative) Urine Bilirubin (Negative) Urine Urobilinogen (Negative) Ur Leukocyte Esterase (Negative) Urine WBC (Auto) (0-5) /hpf Urine RBC (Auto) (0-4) /hpf U Hyaline Cast (Auto) (0-5) /lpf U Epithel Cells (Auto) (0-5) /lpf Urine Bacteria (Auto) (Negative) Urine Yeast (None Prsent) SARS-CoV-2, RNA, NAAT (NEGATIVE) Administered Medications Discontinued Medications Dexamethasone Sodium Phosphate (DexamethasonePf 10 Mg/Ml Vial) 10 mg IV NOW ONE Stop: 05/20/22 16:53 Last Admin: 05/20/22 17:49 Dose: 10 mg Documented By: AMY Sodium Chloride (Nss) 500 mls @ 999 mls/hr IV .Q31M CLAUDIA Stop: 05/20/22 17:30 Last Infusion: 05/20/22 18:08 Dose: 0 mls/hr Documented By: RSTala Admin: 05/20/22 17:26 Dose: 999 mls/hr Documented By: RSTala Sodium Chloride (Nss 1000ml) 1,000 mls @ 999 mls/hr IV .Q1H1M ONE Stop: 05/20/22 20:03 Last Infusion: 05/20/22 20:42 Dose: 0 mls/hr Documented By: RSTala Admin: 05/20/22 19:44 Dose: 999 mls/hr Documented By: RSTala Imaging Data Radiologist's Impression: Chest X-Ray 05/20/22 16:53 XR chest 1V portable CLINICAL HISTORY: weakness TECHNIQUE: Single frontal radiograph of the chest was obtained. Comparison: Comparison is made to chest radiograph 04/20/2022 FINDINGS: Median sternotomy wires are unchanged. Cardiomegaly is noted. There is elevation of the left hemidiaphragm with associated atelectasis. No evidence of pleural effusion or pneumothorax. IMPRESSION: Left atelectasis without evidence of airspace opacity. ACT 112: Negative or not required by law. Electronically signed by: Adeel Guthrie M.D. 05/20/2022 5:14 PM Discharge Plan Visit Data Chief Complaint: Weakness Stated Complaint: WEAKNESS ED Provider: Fish Goodwin Discharge Problem: Cervical radiculopathy, Cervical spinal stenosis Patient Disposition: Being Evaluated by Hospitalist Forms Stand Alone Forms: My [facility] Prescriptions Prescriptions: No Action allopurinol 300 mg tablet 300 mg PO QAM cholecalciferol (vitamin D3) 25 mcg (1,000 unit) capsule 25 mcg PO DAILY carvedilol 6.25 mg tablet 6.25 mg PO BID Qty: 60 6RF Rx Instructions: must administer with a meal/food Kerendia 10 mg tablet 10 mg PO DAILY gabapentin 300 mg capsule See Rx Instructions .ROUTE .COMPLEX Rx Instructions: take 2 capsules in the morning and 1 in the evening Toubrie SoloStar U-300 Insulin 300 unit/mL (1.5 mL) insulin pen 50 unit subcut BID famotidine [Pepcid] 40 mg tablet 40 mg PO QAM insulin aspart U-100 [Novolog Flexpen U-100 Insulin] 100 unit/mL Insulin Pen 0 unit SUBCUT TIDM warfarin 2.5 mg tablet 2.5 mg PO DAILY Rx Instructions: may adjust clotrimazole-betamethasone 1-0.05 % cream 1 applic TOPICAL BID PRN (Reason: affected area) nystatin 100,000 unit/gram powder 1 applic TOPICAL BID ertapenem 1 gram recon soln 1 g IV DAILY Qty: 14 0RF gabapentin 300 mg Capsule 300 mg PO DAILY@14 Qty: 30 0RF oxycodone 30 mg tablet 15 - 30 mg PO TID PRN (Reason: pain) Qty: 20 0RF Referrals Referrals: Demarcus Nicholson DO [Primary Care Provider] -
[2022-05-20 17:46] LABS: Basophils # (auto) 0.05 K/uL (0-0.2); Basophils % (auto) 0.5 %; Eosinophils # (auto) 0.22 K/uL (0-0.50); Eosinophils % (auto) 2.2 %; Hematocrit (blood only) 36.8 % (40.1-51.0); Immature Granulocytes # (auto) 0.09 K/uL (0.00-0.02); Immature Granulocytes % (auto) 0.9 %; Lymphocytes # (auto) 1.35 K/uL (1.2-3.4); Lymphocytes % (auto) 13.3 %; Mean Corpuscular Hemoglobin 31.3 pg (25.0-34.0); Mean Corpuscular Hgb Conc 32.6 g/dL (32.0-36.0); Mean Corpuscular Volume 96.1 fL (80.0-100.0); Mean Platelet Volume 10.1 fL (9.4-12.4); Monocytes # (auto) 0.41 K/uL (0.24-0.82); Neutrophils # (auto) 8.01 K/uL (1.4-6.5); Neutrophils % (auto) 79.1 %; Platelet Count 165 K/uL (130-400); RDW Coefficient of Variation 17.7 % (11.5-14.5); RDW Standard Deviation 62.2 fL (36.4-46.3); Red Blood Count 3.83 M/uL (4.63-6.08); White Blood Count 10.13 K/ul (4.8-10.8)
[2022-05-20 18:09] LABS: Albumin Globulin Ratio 0.7 (0.9-2); BUN Creatinine Ratio 14.5 (10-20); Bilirubin,Total 0.7 mg/dl (0.2-1.0); Calcium 8.5 mg/dl (8.5-10.1); Creatinine Clr Calc Pharmacy 100.2 ml/min; Est GFR (African American) 78.1 ml/min; Est GFR (Non-African American) 67.4 ml/min; Globulin 4.3 gm/dl (2.5-4.0); Magnesium 1.4 mg/dl (1.7-2.4); Potassium 4.4 mmol/L (3.5-5.1); Total Protein 7.3 gm/dl (6.0-8.3)
[2022-05-20 18:12] LABS: Partial Thromboplastin Ratio 1.4; Partial Thromboplastin Time 39.5 Seconds (21.0-31.0); Prothrombin Time 10.9 Seconds (9.0-12.0)
[2022-05-20 18:14] LABS: Troponin I High Sensitivity 6.1 pg/ml (0-20)
[2022-05-20 18:15] LABS: Appearance Urine Turbid (Clear); Bacteria Urine Automated Negative (Negative); Bilirubin Urine Negative (Negative); Blood Urine 3+ (Negative); Color Urine Yellow; Epithelial Cell Urine Auto >30 /lpf (0-5); Glucose Urine UA Negative (Negative); Ketones Urine Negative (Negative); Leukocyte Esterase Urine 3+ (Negative); Nitrite Urine Negative (Negative); Protein Urine 3+ (Negative); Specific Gravity Urine 1.015 (1.000-1.030); Urobilinogen Urine Negative (Negative); WBC Urine Automated >30 /hpf (0-5); pH Urine 5.5 (4.5-7.5)
[2022-05-20 18:57] LABS: RBC Urine Automated >30 /hpf (0-4)
[2022-05-20 18:59] LABS: Cast Urine Automated 0 /lpf (0-5)
[2022-05-20] MEDS ORDERED: SODIUM CHLORIDE 0.9% 1000ML 1,000 ML IV ONE (19:03)
--- NOTE | 2022-05-20 20:23 | History & Physical Report ---
Date of Service May 20, 2022 Assessment & Plan (1) Myelopathy concurrent with and due to spinal stenosis of cervical region: Plan: 52 year old male w/ PMHx of myelopathy, chronic pike, hx of CVA, and moderate- severe cervical spinal stenosis, and impacted kidney stone who presents with worsening bilateral upper extremity weakness (worse on left) for several weeks (original onset December 2021), no recent trauma. - subacute, pain appears to be new from last admission - per 04/22/22 ortho spine consult note, urgent surgical intervention after resolution of bacteremia at the time was recommended. During the 04/20/22-04/28/22 [facility] admission, [facility] had accepted transfer, but subsequent plans changed to expedited outpatient surgery eval and surgery at [facility]. Patient was evaluated but could not proceed due to insurance change. His new insurance starts 05/21/22 - s/p IV Decadron. Will continue IV Decadron - repeat MRI c spine. pending result, will reassess if transfer to tertiary center. will also order MRI of lumbar spine to elucidate lower extremity paraplegia given inconsistencies in patient history (see below) - 04/20/22 brain MRI w/o acute changes - order cervical collar to limit neck extension - consult Dr. Garcia (ortho spine) 04/22/22 MRI cervical spine The alignment is anatomical. Disks are normal in height and signal. C2-C3: Unremarkable. C3-C4: There is mild bilateral neural foraminal stenosis due to a broad base posterior disc bulge. C4-C5: Large posterior disc bulge is seen with severe canal stenosis, measuring 3 mm in AP diameter. There is moderate bilateral neuroforaminal stenosis at this level. C5-C6: There is a broad-based posterior disc bulge with moderate canal stenosis, AP diameter 7 mm. Facet arthropathy results in mild right and severe left neural foraminal stenosis. C6-C7: There is a broad-based posterior disc bulge with moderate canal stenosis, AP diameter 7 mm. There is moderate right and severe left neural foraminal stenosis. C7-T1: Unremarkable. The spinal ligaments are intact, without evidence of disruption or abnormal signal intensity. T2 hyperintensity is noted in the spinal cord most prominent at the level of C4-C5. There is no evidence of an extradural, intradural, extramedullary or intramedullary lesion. Visualized soft tissues are normal. Visualized brain parenchyma is normal. IMPRESSION: Multilevel degenerative changes with up to severe canal stenosis with AP diameter of 3 mm, with associated cord edema. No acute cortical infarct is seen. There is up to moderate right and severe left neural foraminal stenosis. (2) Paraplegia: Plan: - per chart hx. patient (poor historian) paints slightly different picture. states resideual RLE after stroke in 2012 and LLE weakness followed. States no bowel issues and pike is new since 02/2022 secondary to severe upper extremity weakness and inability to use wheelchair and commode (3) Chronic indwelling Pike catheter: Plan: - see above. will need to further explore whether the relatively new need for this (several months) is related to spinal stenosis issues - treated for esbl ecoli UTI and resultant bacteremia at last admission w/ ertapenem. per patient, transitioned to PO antibiotics and still taking. will be discontinuing abx at this time. - per previous admission dc summary, had considered addressing likely impacted kidney stone in inpatient setting because possibly contributing to recurrent UTIs - per patient, being worked up by urology as outpatient and missed recent appointment. pending dispo plans (e.g. transfer) consider urology consult and obtaining imaging records from [facility] (4) CKD (chronic kidney disease) stage 3, GFR 30-59 ml/min: Plan: - at / slightly better than baseline. follow bmp (5) Type 2 diabetes mellitus, uncontrolled: Plan: - check A1c in AM - pharmacy glycemic consult. SSI + Lantus (6) Narcotic dependence: Plan: - chart hx has chronic pain syndrome - per PDMP, 135 MME/day (oxycodone 30mg TID) for past 1.5 year+. will be providing reduced dose oxycodone 10mg q8h prn for severe 7-10 pain. recommend outpatient re-examining of regimen. per patient, the severe arm pain was only in past 2 weeks. - in past, patient reportedly was told not to take tylenol because of his liver. removed scheduled tylenol order (7) Diastolic congestive heart failure: Plan: - noted. use IV fluids cautiously (8) History of CVA (cerebrovascular accident): Plan: -noted (9) Hx of CABG: Plan: - CAD hx noted (10) Hx of pulmonary embolus: Plan: - continue therapeutic anticoagulation. on warfarin normally, but is temporarily on therapeutic Lovenox (started in outpatient setting) in anticipation of spinal surgery (11) History of GI bleed: Plan: - noted. on therapeutic anticoagulation. avoid nsaids (12) Sleep apnea, organic: Plan: - qhs bipap (13) S/P ileostomy: Plan: - routine care Plan FEN/GI: DM2 low Na gluten free diet. No IV fluids anticoag: therapeutic Lovenox 1mg/kg BID code: full dispo: med tele. neurovasc checks History of Present Illness Chief Complaint: bilateral upper extremity weakness Primary Care Provider: Demarcus Nicholson DO 52 year old male w/ PMHx of myelopathy, chronic pike, hx of CVA (2012), and moderate-severe cervical spinal stenosis, and impacted kidney stone who presents with worsening bilateral upper extremity weakness (worse on left) for several weeks (original onset December 2021), no recent trauma. He was admitted to [facility] 04/20/22-04/28/22 for these symptoms and bacteremia secondary to UTI. The initial plan was inpatient transfer to [facility] for spine surgery, but this plan was alter revised to outpatient with expedited scheduling. The current presentation of symptoms involves worsened weakness and notably worsened pain (/10->6-10/10). Patient does describe the pain as radiclar this visit. He has paresthesias at his hands. 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 He has difficulty eating with spoon and turning in bed. Has frequent home aides. + left neck pain. no headache, blurry vision, or fever. Denies urinary symptoms. Chronic pike x ~2 months; states is because of upper extremity weakness. Uses marijuana. Hx of IVDU (oxycodone injection). Has been on Lovenox 135 BID since 05/07/22 because was scheduled for outpatient spine surgery with [facility]; appointment cancelled because was in process of switching insurance (starts tomorrow). Patient is still taking oral antibiotics for UTI; states he was switched to this after finishing the course of Ertapenem (discharged w/ outpatient infusion of this at last admission). ED course: IV dexamethasone 10mg x1. wbc 10.13. Hb 12.2, stable from 04/28/22. Baseline 13s+. INR 1.0. Na 132, ~chronic. Cr 1.24, baseline. bsg 275. Mg 1.4. alk phos 118. UA w/ 3+ blood, 3+ LE, >30 wbc, rbc. epithelial cells, yeast. Allergies Allergy/AdvReac Type Severity Reaction Status Date / Time sulfamethoxazole AdvReac Unknown "Levels Verified 02/17/22 00:49 [From Bactrim] were up"-per [facility] trimethoprim [From Bactrim] AdvReac Unknown "Levels Verified 02/17/22 00:49 were up"-per [facility] Home Medications Medication Instructions Recorded Confirmed Type insulin aspart U-100 100 unit/mL 0 unit subcut TIDM per sliding 10/08/18 02/24/22 History (3 mL) subcutaneous pen (Novolog scale Flexpen U-100 Insulin aspart) gabapentin 300 mg capsule See Rx Instructions .Route .COMPLEX 01/14/19 02/24/22 History famotidine 40 mg tablet (Pepcid) 40 mg PO QAM 05/27/19 02/24/22 History allopurinol 300 mg tablet 300 mg PO QAM 01/23/20 02/24/22 History cholecalciferol (vitamin D3) 25 25 mcg PO DAILY 01/23/20 02/24/22 History mcg (1,000 unit) capsule insulin glargine U-300 conc 300 50 unit subcut BID 08/10/21 02/24/22 History unit/mL (1.5 mL) subcutaneous pen (Toujeo SoloStar U-300 Insulin) warfarin 2.5 mg tablet 2.5 mg PO DAILY 08/13/21 02/24/22 History carvedilol 6.25 mg tablet 6.25 mg PO BID #60 tabs 09/30/21 02/24/22 Rx finerenone 10 mg tablet (Kerendia) 10 mg PO DAILY 12/29/21 02/24/22 History clotrimazole-betamethasone 1 1 applic topical BID PRN affected 02/24/22 02/24/22 History %-0.05 % topical cream area nystatin 100,000 unit/gram topical 1 applic topical BID 02/24/22 02/24/22 History powder ertapenem 1 gram solution for 1 g IV DAILY #14 ea 04/26/22 Rx injection gabapentin 300 mg capsule 300 mg PO DAILY@14 #30 caps 04/26/22 Rx oxycodone 30 mg tablet 15 - 30 mg PO TID PRN pain #20 tabs 04/28/22 02/24/22 Rx Past Med/Surg History Medical History (Updated 05/21/22 @ 02:57 by Adaam Fisher MD) Celiac disease Chronic indwelling Pike catheter Chronic kidney disease, stage 3a follows with [facility] Coronary artery disease CABG x 1 2012-VG to LAD, multiple stents, follows with [facility] Diastolic congestive heart failure EF 55-59% Difficult airway for intubation 01/18/22 Patient unable to be intubated with Glidescope 4 - good view but unable to pass ETT, Igel #5 easily placed and worked well DM type 2 (diabetes mellitus, type 2) IDDM GI bleed 2018 requiring 3 blood transfusions, transferred to [facility] with work-up not revealing clear cause per records Gout Hepatitis C TREATED Hirschsprung's disease History of blood transfusion 2018 in setting of GI bleed History of COVID-19 05/2021- no symptoms- no hospitalization History of CVA (cerebrovascular accident) 2012-admitted [facility] History of endocarditis TREATED AT [facility]-2012 History of GI bleed History of intravenous drug abuse Hx of pulmonary embolus Hyperlipidemia Morbid obesity Paraplegia Pulmonary emboli 05/2010-unknown cause- admitted and treated at [facility] Pulmonary hypertension Sleep apnea, organic NO DEVICE AT THIS TIME, HIS MACHINE WAS INVOLVED IN RECALL Surgical History (Updated 05/21/22 @ 05:03 by Adama Fisher MD) H/O aortic root repair 05/2016- [facility] H/O mitral valve repair UNSURE-EITHER [facility] OR [facility] Hx of CABG 2012 [facility]- DUE TO ENDOCARDITIS, single vessel per records S/P brain surgery 2013- [facility] S/P cardiac cath S/P colostomy FOLLOWS W/ [facility] S/P ileostomy Family History Father Cardiac disorder Hypertension Prostate cancer Diabetes Coronary heart disease COPD (chronic obstructive pulmonary disease) Pacemaker Mother Hypertension Skin cancer Dementia Social History Smoking Status: Never smoker Tobacco Type: Cigarettes Second Hand Exposure: No; Hx Alcohol Use: No Hx Substance Use: Yes Preferred Language: Arabic Communication Ability: Effective 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 Beliefs That Will Affect Care: None marital status: Single Current Living Situation: Parent Current Living Situation Comment: Lives with parents and has caregivers to come and help with ADLs current occupational status: employed 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 NAD. Cooperative. HEENT: Atraumatic, normocephalic. EOMI Pulm: CTAB anteriorly, laterally and posterior upper. posterior lower deferred. slightly diminished diffusely. -wheezes, -rales, -rhonchi. No respiratory distress. Cardiac: RRR, -mrg. Radial pulses intact and symmetrical. Abdominal: Nontender, nondistended, soft. Neuro: neg spurlings sensation decreased past elbow compared to upper arms. symmetric bilaterally 4/5 BUE strength. 3/5 bilat toll line mechanic strength 1/5 BLE strength Msk: mild ttp left trapezius muscle area Results & Data Results & Data ([facility]) Vital Signs (Past 12 Hours) Vital Signs Temp Pulse Pulse Resp BP BP Pulse Ox 05/20/22 16:58 36.9 C 87 16 124/87 99 05/20/22 16:58 05/20/22 17:01 99 05/20/22 17:01 36.9 C 88 16 124/87 99 O2 Del Method 05/20/22 16:58 Room Air 05/20/22 16:58 Room Air 05/20/22 17:01 Room Air 05/20/22 17:01 Room Air Laboratory Results Cardiac Enzymes 05/20/22 Range/Units 17:16 AST 15 (13-39) U/L Troponin I High Sens 6.1 (0-20) pg/ml Coagulation 05/20/22 Range/Units 17:16 PT 10.9 (9.0-12.0) Seconds APTT 39.5 H (21.0-31.0) Seconds CBC 05/20/22 Range/Units 17:16 WBC 10.13 (4.8-10.8) K/ul RBC 3.83 L (4.63-6.08) M/uL Hgb 12.0 L (14.0-18.0) g/dl Hct 36.8 L (40.1-51.0) % Plt Count 165 (130-400) K/uL Neut # (Auto) 8.01 H (1.4-6.5) K/uL Lymph # (Auto) 1.35 (1.2-3.4) K/uL [place] # (Auto) 0.41 (0.24-0.82) K/uL Eos # (Auto) 0.22 (0-0.50) K/uL Baso # (Auto) 0.05 (0-0.2) K/uL Comprehensive Metabolic Panel 05/20/22 Range/Units 17:16 Sodium 132 L (136-145) mmol/L Potassium 4.4 (3.5-5.1) mmol/L Chloride 103 (98-107) mmol/L Carbon Dioxide 23 (21-32) mmol/L BUN 18 (6-23) mg/dl Creatinine 1.24 (0.6-1.4) mg/dl Glucose 275 H (70-99(Fasting)) mg/dl Calcium 8.5 (8.5-10.1) mg/dl AST 15 (13-39) U/L ALT 10 (7-52) U/L Alkaline Phosphatase 118 H (34-104) U/L Total Protein 7.3 (6.0-8.3) gm/dl Albumin 3.0 L (3.4-5.0) gm/dl Intake and Output 05/20/22 05/20/22 05/20/22 06:59 14:59 22:59 Intake Total 500 / 500 Balance 500 / 500 Intake: IV 500 / 500 Sodium Chloride 0.9% 500 ml @ 500 / 500 999 mls/hr IV .Q31M [facility] Rx#: [id number] Other: Weight 146 kg Weight Measurement Method Built in [facility] Patient Weight 05/21/22 06:59 Weight 146 kg Diagnostic Findings Chest X-Ray 05/20/22 16:53 XR chest 1V portable CLINICAL HISTORY: weakness TECHNIQUE: Single frontal radiograph of the chest was obtained. Comparison: Comparison is made to chest radiograph 04/20/2022 FINDINGS: Median sternotomy wires are unchanged. Cardiomegaly is noted. There is elevation of the left hemidiaphragm with associated atelectasis. No evidence of pleural effusion or pneumothorax. IMPRESSION: Left atelectasis without evidence of airspace opacity. ACT 112: Negative or not required by law. Electronically signed by: Adeel Guthrie M.D. 05/20/2022 5:14 PM ECG Additional Comments: sinus 87 w/ 1st deg AV block. Nonspecific st-t changes. Normal axis. Slightly prolonged qtc 462. Code Status & VTE Plan Code Status full VTE Prophylaxis Plan VTE Prophylaxis will be ordered: Yes Supervising Physician Co-Signing Physician Notes Attending addendum: I have physically seen this patient, have supervised the medical residents activities, and agree with the H&P unless as otherwise noted. Assessment and Plan: Cervical spine stenosis with myelopathy- Status post dexamethasone 10 mg IV from the ED Continue dexamethasone 4 mg IV every 8 hours Consult orthopedic spine surgery Dr. Garcia Chronic pain syndrome- Narcotic dependence Outpatient on oxycodone 30 mg p.o. 3 times daily Paraplegia/chronic indwelling Pike catheter/ESBL E. coli UTI history Question of impacted kidney stone contributing to recurrences Followed by urology as outpatient From urine culture and sensitivity Consider urology consult Diabetes mellitus- Placed on Accu-Cheks before meals and at bedtime with NovoLog coverage per scale Continue Lantus Check hemoglobin A1c Follow sugars closely while on IV steroids Remaining orders and notations as noted Resident Activity Tracking Resident Involvement: Resident Care Provided Care Provided: Adult Hospital Medicine
[2022-05-20] MEDS ORDERED: ENOXAPARIN 150 MG/ML SYR SC STA (22:28)
[2022-05-21] MEDS ORDERED: PHARMACY GLYCEMIC MGMT CONSULT PRN (01:02)
[2022-05-21] MEDS ORDERED: ONDANSETRON INJ 2 MG/ML 2 ML VIAL IV PRN (01:12)
[2022-05-21] MEDS ORDERED: GLUCOSE 40% GEL 15 GM TUBE PO PRN (01:45)
[2022-05-21] MEDS ORDERED: LANTUS PER UNIT CHARGE SQ ONE ×4 (01:45→21:00)
[2022-05-21] MEDS ORDERED: GLUCOSE 10 TAB/TUBE PO PRN (01:45)
[2022-05-21] MEDS ORDERED: CARBOHYDRATES FOR HYPOGLYCEMIA PO PRN (01:45)
[2022-05-21] MEDS ORDERED: GLUCAGON FOR INJ 1 MG VIAL SQ PRN (01:45)
[2022-05-21] MEDS ORDERED: DEXTROSE 50% 50 ML SYRINGE IV PRN (01:45)
[2022-05-21] MEDS: INSULIN ASPART PER UNIT SC SCH ×5 (01:58→22:40)
[2022-05-21] MEDS ORDERED: ACETAMINOPHEN 500 MG TAB PO SCH (03:00)
[2022-05-21] MEDS: oxyCODONE HCL IR 5 MG TAB (IMMEDIATE RELEASE) PO PRN ×2 (03:16→18:44)
[2022-05-21] MEDS: ENOXAPARIN 150 MG/ML SYR SC SCH ×2 (03:27→17:03)
[2022-05-21] MEDS: MAGNESIUM SULFATE / D5W 1 GM/100 ML BAG IV SCH ×3 (06:34→10:13)
--- NOTE | 2022-05-21 07:13 | Electrocardiogram Report ---
Test Reason : Blood Pressure : / mmHG Vent. Rate : 087 BPM Atrial Rate : 087 BPM P-R Int : 216 ms QRS Dur : 086 ms QT Int : 384 ms P-R-T Axes : 006 025 041 degrees QTc Int : 462 ms Sinus rhythm with 1st degree A-V block Nonspecific T wave abnormality Prolonged QT Abnormal ECG When compared with ECG of 20-APR-2022 15:27, LA interval has increased Nonspecific T wave abnormality no longer evident in Inferior leads Confirmed by Jeronimo Kovacs ([id number]) on 05/21/2022 7:13:31 AM Referred By: REFERRED SELF Confirmed By:Bryan Kovacs
[2022-05-21 07:31] LABS: Hematocrit (blood only) 35.4 % (40.1-51.0); Hemoglobin 11.9 g/dl (14.0-18.0); Mean Corpuscular Hemoglobin 31.3 pg (25.0-34.0); Mean Corpuscular Hgb Conc 33.6 g/dL (32.0-36.0); Mean Corpuscular Volume 93.2 fL (80.0-100.0); Mean Platelet Volume 10.1 fL (9.4-12.4); Platelet Count 155 K/uL (130-400); RDW Coefficient of Variation 16.7 % (11.5-14.5); RDW Standard Deviation 57.1 fL (36.4-46.3); White Blood Count 11.42 K/ul (4.8-10.8)
[2022-05-21 07:43] LABS: Estimated Average Glucose 174 mg/dl; Hemoglobin A1C 7.7 % (4.5-5.6)
[2022-05-21 07:52] LABS: Basophils # (auto) 0.02 K/uL (0-0.2); Basophils % (auto) 0.2 %; Immature Granulocytes # (auto) 0.16 K/uL (0.00-0.02); Immature Granulocytes % (auto) 1.4 %; Lymphocytes # (auto) 0.71 K/uL (1.2-3.4); Lymphocytes % (auto) 6.2 %; Monocytes # (auto) 0.09 K/uL (0.24-0.82); Monocytes % (auto) 0.8 %; Neutrophils # (auto) 10.44 K/uL (1.4-6.5); Neutrophils % (auto) 91.4 %
[2022-05-21 08:55] LABS: Albumin Globulin Ratio 0.7 (0.9-2); Albumin Level 2.7 gm/dl (3.4-5.0); BUN Creatinine Ratio 16.7 (10-20); Bilirubin,Total 0.8 mg/dl (0.2-1.0); Calcium 8.4 mg/dl (8.5-10.1); Creatinine Clr Calc Pharmacy 105.7 ml/min; Est GFR (African American) 86.4 ml/min; Est GFR (Non-African American) 74.6 ml/min; Total Protein 6.7 gm/dl (6.0-8.3)
[2022-05-21] MEDS: dexAMETHasone 4 MG in SYRINGE 0 ML IV SCH ×2 (09:14→14:28)
[2022-05-21] MEDS ORDERED: INSULIN HUMAN REGULAR IV BOLUS 5 UNITS in SYRINGE 0 ML IV ONE (09:15)
[2022-05-21] MEDS ORDERED: INSULIN REGULAR 250 UNITS in SODIUM CHLORIDE 0.9% 247.5 ML IV SCH (09:15)
--- NOTE | 2022-05-21 16:38 | Hospitalist Progress Note ---
Date of Service May 21, 2022 Assessment & Plan (1) Myelopathy concurrent with and due to spinal stenosis of cervical region: Plan: 52 year old male w/ PMHx of myelopathy, chronic pike, hx of CVA, and moderate- severe cervical spinal stenosis, and impacted kidney stone who presents with worsening bilateral upper extremity weakness (worse on left) for several weeks (original onset December 2021), no recent trauma. - subacute, pain appears to be new from last admission - per 04/22/22 ortho spine consult note, urgent surgical intervention after resolution of bacteremia at the time was recommended. During the 04/20/22-04/28/22 [facility] admission, [facility] [place] had accepted transfer, but subsequent plans changed to expedited outpatient surgery eval and surgery at [facility]. Patient was evaluated but could not proceed due to insurance change. His new insurance starts 05/21/22 - s/p IV Decadron. Will continue IV Decadron - repeat MRI c spine. pending result, will reassess if transfer to tertiary center. will also order MRI of lumbar spine to elucidate lower extremity pa raplegia given inconsistencies in patient history (see below) - 04/20/22 brain MRI w/o acute changes - order cervical collar to limit neck extension - consult Dr. Garcia (ortho spine) * Attempted transfer to [facility]. However, they requested new cervical spine MRIs. Radiology currently impeded by patient's poor glucose control. Will attempt to coordinate transfer once MRI images are obtained, likely tomorrow. 04/22/22 MRI cervical spine The alignment is anatomical. Disks are normal in height and signal. C2-C3: Unremarkable. C3-C4: There is mild bilateral neural foraminal stenosis due to a broad base posterior disc bulge. C4-C5: Large posterior disc bulge is seen with severe canal stenosis, measuring 3 mm in AP diameter. There is moderate bilateral neuroforaminal stenosis at this level. C5-C6: There is a broad-based posterior disc bulge with moderate canal stenosis, AP diameter 7 mm. Facet arthropathy results in mild right and severe left neural foraminal stenosis. C6-C7: There is a broad-based posterior disc bulge with moderate canal stenosis, AP diameter 7 mm. There is moderate right and severe left neural foraminal stenosis. C7-T1: Unremarkable. The spinal ligaments are intact, without evidence of disruption or abnormal signal intensity. T2 hyperintensity is noted in the spinal cord most prominent at the level of C4-C5. There is no evidence of an extradural, intradural, e xtramedullary or intramedullary lesion. Visualized soft tissues are normal. Visualized brain parenchyma is normal. IMPRESSION: Multilevel degenerative changes with up to severe canal stenosis with AP diameter of 3 mm, with associated cord edema. No acute cortical infarct is seen. There is up to moderate right and severe left neural foraminal stenosis. (2) Paraplegia: Plan: - per chart hx. patient (poor historian) paints slightly different picture. states resideual RLE after stroke in 2012 and LLE weakness followed. States no bowel issues and pike is new since 02/2022 secondary to severe upper extremity weakness and inability to use wheelchair and commode (3) Chronic indwelling Pike catheter: Plan: - see above. will need to further explore whether the relatively new need for this (several months) is related to spinal stenosis issues - treated for esbl ecoli UTI and resultant bacteremia at last admission w/ ertapenem. per patient, transitioned to PO antibiotics and still taking. will be discontinuing abx at this time. - per previous admission dc summary, had considered addressing likely impacted kidney stone in inpatient setting because possibly contributing to recurrent UTIs - per patient, being worked up by urology as outpatient and missed recent appointment. pending dispo plans (e.g. transfer) consider urology consult and obtaining imaging records from [facility] (4) CKD (chronic kidney disease) stage 3, GFR 30-59 ml/min: Plan: - at / slightly better than baseline. follow bmp (5) Type 2 diabetes mellitus, uncontrolled: Plan: - check A1c in AM - pharmacy glycemic consult. SSI + Lantus -Started on insulin drip due to [id number]-363 despite SSI, Lantus. Recheck in the morning. (6) Narcotic dependence: Plan: - chart hx has chronic pain syndrome - per PDMP, 135 MME/day (oxycodone 30mg TID) for past 1.5 year+. will be providing reduced dose oxycodone 10mg q8h prn for severe 7-10 pain. recommend outpatient re-examining of regimen. per patient, the severe arm pain was only in past 2 weeks. - in past, patient reportedly was told not to take tylenol because of his liver. removed scheduled tylenol order (7) Diastolic congestive heart failure: Plan: - noted. use IV fluids cautiously (8) History of CVA (cerebrovascular accident): Plan: -noted (9) Hx of CABG: Plan: - CAD hx noted (10) Hx of pulmonary embolus: Plan: - continue therapeutic anticoagulation. on warfarin normally, but is temporarily on therapeutic Lovenox (started in outpatient setting) in anticipation of spinal surgery (11) History of GI bleed: Plan: - noted. on therapeutic anticoagulation. avoid nsaids (12) Sleep apnea, organic: Plan: - qhs bipap (13) S/P ileostomy: Plan: - routine care Plan FEN/GI: DM2 low Na gluten free diet. No IV fluids anticoag: therapeutic Lovenox 1mg/kg BID code: full dispo: [employer]. neurovasc checks Admission and Anticipated Discharge Date Admission Date: May 20, 2022 Supervising Physician Co-Signing Physician Notes I personally examined the patient and verified all schwab points of history and exam, discussed case, and agree with decision making with Dr Moffett Feeling about the same. Discussed plans to try to transfer to [facility] if we canhe is greatly appreciative of thisand would like to proceed in that direction as quickly as can be facilitated. Worried about losing control and motor of his left hand, given that that is really all he has left. Vitals noted, in general he is awake and alert pleasant no distress. HEENT normocephalic atraumatic mucous membranes moist. Breathing unlabored no accessory muscle use good effort. Skin shows no rashes no pallor or icterus. Able to move left hand Weakness, paralysistrying to facilitate transfer to [facility] last admission it appeared the plan would be to do decompressive spinal surgery as soon as the infection cleared, as an outpatient unfortunately insurance/bureaucratic issues precluded this from having been done already. Patient notes he now has a [facility] insurance card. Resident physician discussed with [facility] with goal of transfer, they preferred an updated MRI first which has been ordered/is pending completion. Continue to follow closely, work on transfer as soon as can be facilitated. Subjective Patient awake and alert upon arrival this morning. He corroborated admission HPI, reporting worsened book illustrator strength in both hands. Per nursing, he had to be fed breakfast as he was unable to maneuver cutlery. He also reports bilateral garcias pain. Review of Systems Review of Systems: All systems reviewed & are unremarkable except as noted in HPI & below Physical Exam Physical Exam: General: Morbidly obese man who appears older than stated age who is alert, interactive, and in mild distress. Neck: Supple. No lymphadenopathy. Normal ROM. CV: Regular rate and rhythm. Normal S1 and S2. No murmurs gallops or rubs. Respiratory: Normal respiratory effort. Lungs clear to auscultation bilaterally. Abdomen: Soft, protuberant abdomen. No bruits heard on auscultation. No tenderness to deep palpation. Extremities: Bilateral LE weakness at the hand, wrist, and elbow joints. Clear focal weakness at the aforementioned joints on the left. Unable to book illustrator with left hand. No focal sensory deficits appreciated. Neuro: Alert and oriented x3. Skin: Clean, dry, and intact. Some erythema noted at the distal LE bilaterally, just proximal to the ankles. Results & Data Results & Data ([facility]) Vital Signs (Past 12 Hours) Vital Signs Temp Pulse Pulse Pulse Resp BP Pulse Ox 05/21/22 14:27 97 H 05/21/22 15:08 36.9 C 94 H 16 122/71 95 05/21/22 06:07 82 05/21/22 11:50 05/21/22 10:55 36.7 C 88 16 138/66 91 05/21/22 08:25 36.6 C 72 16 142/64 H 94 05/21/22 05:53 36.5 C 85 20 125/72 96 O2 Del Method 05/21/22 14:27 05/21/22 15:08 Room Air 05/21/22 06:07 05/21/22 11:50 Room Air, CPAP 05/21/22 10:55 Room Air 05/21/22 08:25 Room Air 05/21/22 05:53 Room Air Resident Activity Tracking Resident Involvement: Resident Care Provided Care Provided: Adult Hospital Medicine
--- NOTE | 2022-05-21 17:50 | Billing Data ---
Date of Service May 21, 2022 Coding Level of Care Code 91036 Subseq Hosp Care Lvl 3
--- NOTE | 2022-05-21 19:12 | Billing Data ---
Date of Service May 21, 2022 Coding Level of Care Code 01988 Initial Inpt Care Lvl 3
[2022-05-21] MEDS: INSULIN REGULAR 250 UNITS in SODIUM CHLORIDE 0.9% 247.5 ML IV SCH (21:08)
--- NOTE | 2022-05-21 21:53 | XRay Report ---
SINGLE VIEW CHEST CLINICAL HISTORY: PICC placement. FINDINGS: An AP, portable, upright chest radiograph is compared to study dated 05/20/2022. The examina tion is degraded by portable technique, large body habitus, and patient rotation. A left PICC line h as been placed. The tip of the catheter projects over the left innominate vein in the midline. The he art is enlarged and there is atherosclerotic calcification of the thoracic aorta. There is mild pulmo nary vascular congestion. There are increasing bibasilar airspace opacities. Small pleural effusions are suspected. No pneumothorax is seen. The skeletal structures appear osteopenic. The bony thorax is grossly intact. IMPRESSION: 1. A left PICC line has been placed as above. 2. Cardiomegaly with mild pulmonary vascular congestion. 3. There are increasing bibasilar airspace opacities. Clinical correlation will be required. 4. Suspect small pleural effusion. Electronically signed by: Paul Zamarripa M.D. 05/21/2022 9:51 PM
[2022-05-22] MEDS ORDERED: oxyCODONE HCL IR 30 MG TAB (IMMEDIATE RELEASE) PO ONE (02:37)
[2022-05-22] MEDS: ENOXAPARIN 150 MG/ML SYR SC SCH ×2 (05:49→17:07)
[2022-05-22] MEDS ORDERED: STAT IV Infusion **Titration per Protocol STA (07:12)
[2022-05-22 07:13] LABS: Albumin Globulin Ratio 0.7 (0.9-2); Albumin Level 2.9 gm/dl (3.4-5.0); BUN Creatinine Ratio 18.5 (10-20); Bilirubin,Total 0.5 mg/dl (0.2-1.0); Calcium 8.6 mg/dl (8.5-10.1); Creatinine Clr Calc Pharmacy 111.1 ml/min; Est GFR (African American) 92.3 ml/min; Est GFR (Non-African American) 79.6 ml/min; Magnesium 1.7 mg/dl (1.7-2.4); Potassium 3.7 mmol/L (3.5-5.1); Total Protein 6.9 gm/dl (6.0-8.3)
[2022-05-22] MEDS ORDERED: LANTUS PER UNIT CHARGE SQ ONE ×2 (08:45→21:00)
[2022-05-22] MEDS ORDERED: dexAMETHasone 4 MG in SYRINGE 0 ML IV ONE (08:45)
[2022-05-22] MEDS: INSULIN ASPART PER UNIT SC SCH ×4 (08:58→21:37)
[2022-05-22] MEDS ORDERED: GADOBUTROL 65ML VIAL IV ONE ×2 (12:49→23:49)
[2022-05-22] MEDS: INSULIN REGULAR 250 UNITS in SODIUM CHLORIDE 0.9% 247.5 ML IV SCH (13:25)
--- NOTE | 2022-05-22 14:46 | Pharmacy Report ---
Pharmacy Glycemic Short Note 2 - Date of Service May 22, 2022 - Glycemic Short BSG Results (Last 24 hours): 05/21/22 05/21/22 05/21/22 14:40 15:45 15:50 Glucose POC Glucose 412 H* 416 H* 401 H* 05/21/22 05/21/22 05/21/22 16:33 16:34 17:39 Glucose POC Glucose 398 H* 391 H* 368 H* 05/21/22 05/21/22 05/21/22 18:37 19:47 20:44 Glucose POC Glucose 348 H* 349 H* 298 H 05/21/22 05/21/22 05/22/22 22:30 23:48 00:50 Glucose POC Glucose 294 H 255 H 237 H 05/22/22 05/22/22 05/22/22 01:45 02:44 03:33 Glucose POC Glucose 251 H 245 H 199 H 05/22/22 05/22/22 05/22/22 04:28 05:39 06:31 Glucose 199 H POC Glucose 185 H 172 H 05/22/22 05/22/22 05/22/22 08:21 10:23 13:24 Glucose POC Glucose 156 H 173 H 113 H 05/22/22 14:28 Glucose POC Glucose 120 H OUTPATIENT ANTIDIABETIC REGIMEN: * Toujeo 50 units SC BID * Novolog SC TIDM * HbA1c 7.7% on 05/21/22 ASSESSMENT: * 52 yo M admitted with myelopathy concurrent with and due to spinal stenosis of cervical region. Steroids initiated and severe hyperglycemia noted 10/ AM. Insulin drip was initiated at that time for hyperglycemia. * However, despite titrating up to over 40 units/hr of insulin over the course of the day yesterday, BSG's remained >300 mg/dL. Dexamethasone was held. Insulin drip was re-made, a separate IV site was utilized and drip was resumed at 10 units/hr with the new bag last night. Drip rates have since stayed elevated but much more stable at rates no longer exceeding 14 units/hr, and BSG's have come down nicely and are now in goal range. Dexamethasone resumed this AM at prior dose of 4 mg IV q8h. Anion gap and CO2 have remained in normal range. * Unlikely to be able to titrate off insulin drip while on steroids, unless needs decrease. Hesitant to increase Lantus too much in case steroids are stopped, as previous admissions indicate that basal needs off of steroids are significantly less than outpatient reported regimen. Will provide a maximum of 160 units of Lantus per day for now. * Will fix CHO ratio at tight amount, as insulin drip calculator will not go below 5 g CHO/unit PLAN FOR INPATIENT GLYCEMIC CONTROL: * Continue insulin drip, currently running at 11.5 units/hr. Goal 140-180 mg/dL * Basal insulin * Lantus 80 units SQ x1 then 20-80 units tonight, depending on drip rate * Bolus insulin * Nutritional / Prandial insulin per carb ratio of 1 unit per 2.5 grams CHO consumed
--- NOTE | 2022-05-22 17:03 | Magnetic Resonance Report ---
MR cervical spine wo/w con HISTORY: 52 years-old Male severe stenosis. worsened symptoms, acute neck pain without reported trau ma. COMPARISON: MRI 04/21/2022, CT cervical spine 11/21/2021. TECHNIQUE: Multiplanar multisequence MRI of the cervical spine was obtained both with and without the use of 13.6 cc Gadavist. FINDINGS: Motion degraded exam. No abnormal enhancement identified. Straightening of the normal cervical lordos is. No acute fracture, subluxation, endplate erosion, destructive bone lesion, significant bone marro w or soft tissue edema. Normal signal of the brainstem, and imaged thoracic spinal cord. Mild edema o f the central cervical spinal cord at the level of C4-C5 redemonstrated. Asymmetric atrophy of the ri ght cerebellar hemisphere again noted. Multilevel degenerative changes as described below. C2-C3: Moderate intervertebral disc space narrowing with posterior disc osteophyte complex and mild t o moderate facet arthrosis. Unchanged mild bilateral neural foraminal stenosis. The central canal is patent. C3-C4: Mild intervertebral disc space narrowing with minimal uncovertebral hypertrophy and mild facet arthrosis. No central canal stenosis. Moderate right with mild to moderate left neural foraminal baljit rowing, unchanged. C4-C5: Moderate intervertebral disc space narrowing with uncovertebral hypertrophy and mild to modera te facet arthrosis. There is a large central/left paracentral disc extrusion which measures 1.4 x 0.5 cm in transverse and AP dimension and 1.4 cm in craniocaudal dimension. Again, this causes severe ce ntral canal stenosis with AP dimension of the thecal sac measuring 3 mm. Severe left with moderate to severe right neural foraminal narrowing is unchanged. C5-C6: Severe intervertebral disc space narrowing with degenerative partial bony fusion and uncoverte bral hypertrophy with mild to moderate facet arthrosis. AP dimension of the thecal sac measures appro ximately 7.5 mm. There is mild central canal stenosis. Severe left with mild to moderate right neural foraminal narrowing is unchanged. C6-C7: Moderate intervertebral disc space narrowing with uncovertebral hypertrophy and small circumfe rential disc osteophyte complex with mild to moderate facet arthrosis. Mild central canal stenosis, A P dimension of the thecal sac measuring 7.6 mm. Unchanged severe bilateral neural foraminal narrowing . C7-T1: Mild intervertebral disc space narrowing with tiny posterior disc osteophyte complex and moder ate facet arthrosis. No central canal or neural foraminal narrowing. IMPRESSION: 1. Motion degraded exam. Findings appear unchanged from the study obtained 04/21/2022. Mild myelomalaci a of the central cervical spinal cord at the level of C4-C5 appears unchanged. 2. Large disc extrusion at C4-C5 causes severe central canal stenosis. 3. Discogenic degeneration with facet arthrosis and intervertebral disc space narrowing as above resu lting in multilevel neural foraminal stenosis. 4. Mild central canal narrowing at C5-C6 and C6-C7. 5. No abnormal enhancement. ACT 112: Negative or not required by law. The above report was generated using voice recognition software. It may contain grammatical, syntax o r spelling errors. Dictated: 05/22/2022 1:24 PM Transcribed: 05/22/2022 2:00 PM Jocy [id number] [email or web address] Electronically signed by: Reilly Conroy M.D. 05/22/2022 5:01 PM
[2022-05-22] MEDS: oxyCODONE HCL IR 30 MG TAB (IMMEDIATE RELEASE) PO PRN (18:27)
--- NOTE | 2022-05-22 19:11 | Hospitalist Progress Note ---
Date of Service May 22, 2022 Assessment & Plan (1) Myelopathy concurrent with and due to spinal stenosis of cervical region: Plan: 52 year old male w/ PMHx of myelopathy, chronic pike, hx of CVA, and moderate- severe cervical spinal stenosis, and impacted kidney stone who presents with worsening bilateral upper extremity weakness (worse on left) for several weeks (original onset December 2021), no recent trauma. - subacute, pain appears to be new from last admission - per 04/22/22 ortho spine consult note, urgent surgical intervention after resolution of bacteremia at the time was recommended. During the 04/20/22-04/28/22 [facility] admission, [facility] [place] had accepted transfer, but subsequent plans changed to expedited outpatient surgery eval and surgery at [facility]. Patient was evaluated but could not proceed due to insurance change. His new insurance starts 05/21/22 - s/p IV Decadron. Will continue IV Decadron - repeat MRI c spine. pending result, will reassess if transfer to tertiary center. will also order MRI of lumbar spine to elucidate lower extremity par aplegia given inconsistencies in patient history (see below) - 04/20/22 brain MRI w/o acute changes - order cervical collar to limit neck extension - consult Dr. Garcia (ortho spine) 04/22/22 MRI cervical spine The alignment is anatomical. Disks are normal in height and signal. C2-C3: Unremarkable. C3-C4: There is mild bilateral neural foraminal stenosis due to a broad base posterior disc bulge. C4-C5: Large posterior disc bulge is seen with severe canal stenosis, measuring 3 mm in AP diameter. There is moderate bilateral neuroforaminal stenosis at this level. C5-C6: There is a broad-based posterior disc bulge with moderate canal stenosis, AP diameter 7 mm. Facet arthropathy results in mild right and severe left neural foraminal stenosis. C6-C7: There is a broad-based posterior disc bulge with moderate canal stenosis, AP diameter 7 mm. There is moderate right and severe left neural foraminal stenosis. C7-T1: Unremarkable. The spinal ligaments are intact, without evidence of disruption or abnormal signal intensity. T2 hyperintensity is noted in the spinal cord most prominent at the level of C4-C5. There is no evidence of an extradural, intradural, extramedullary or intramedullary lesion. Visualized soft tissues are normal. Visualized brain parenchyma is normal. IMPRESSION: Multilevel degenerative changes with up to severe canal stenosis with AP diameter of 3 mm, with associated cord edema. No acute cortical infarct is seen. There is up to moderate right and severe left neural foraminal stenosis. Today repeat MRI obtainedfilms sent to [facility], radiology locally read as severe disease, but fortunately unchanged from prior. Awaiting call from [facility] anticipate need to transfer for decompressive surgery. (2) Paraplegia: Plan: - per chart hx. patient (poor historian) paints slightly different picture. states resideual RLE after stroke in 2012 and LLE weakness followed. States no bowel issues and pike is new since 02/2022 secondary to severe upper extremity weakness and inability to use wheelchair and commode (3) Chronic indwelling Pike catheter: Plan: - see above. will need to further explore whether the relatively new need for this (several months) is related to spinal stenosis issues - treated for esbl ecoli UTI and resultant bacteremia at last admission w/ ertapenem. per patient, transitioned to PO antibiotics and still taking. will be discontinuing abx at this time. - per previous admission dc summary, had considered addressing likely impacted kidney stone in inpatient setting because possibly contributing to recurrent UTIs - per patient, being worked up by urology as outpatient and missed recent appoi ntment. pending dispo plans (e.g. transfer) consider urology consult and obtaining imaging records from [facility] (4) CKD (chronic kidney disease) stage 3, GFR 30-59 ml/min: Plan: - at / slightly better than baseline. follow bmp (5) Type 2 diabetes mellitus, uncontrolled: Plan: - Glucoses somewhat erratic due to steroids input appreciated - pharmacy glycemic consult. SSI + Lantus (6) Narcotic dependence: Plan: - chart hx has chronic pain syndrome - per PDMP, 135 MME/day (oxycodone 30mg TID) for past 1.5 year+. will be providing reduced dose oxycodone 10mg q8h prn for severe 7-10 pain. recommend outpatient re-examining of regimen. per patient, the severe arm pain was only in past 2 weeks. - in past, patient reportedly was told not to take tylenol because of his liver. (7) Diastolic congestive heart failure: Plan: - noted. use IV fluids cautiously (8) History of CVA (cerebrovascular accident): Plan: -noted (9) Hx of CABG: Plan: - CAD hx noted (10) Hx of pulmonary embolus: Plan: - continue therapeutic anticoagulation. on warfarin normally, but is temporarily on therapeutic Lovenox (started in outpatient setting) in anticipation of spinal surgery (11) History of GI bleed: Plan: - noted. on therapeutic anticoagulation. avoid nsaids (12) Sleep apnea, organic: Plan: - qhs bipap (13) S/P ileostomy: Plan: - routine care Plan anticipate transfer to [facility] for surgery once they accept. Admission and Anticipated Discharge Date Admission Date: May 20, 2022 Subjective Resident physician has obtained MRI and sent films to [facility], discussed with spine surgical team on-call, who apparently also discussed with the patient's actual spine surgeon. Reportedly they are reviewing films and we are waiting for them to get back to us. Patient and his brother appreciate efforts to get him from here to [place]. Arm weakness about the same from yesterday. Review of Systems Review of Systems: All systems reviewed & are unremarkable except as noted in HPI & below Physical Exam Physical Exam: In general he is awake and alert pleasant no distress. HEENT normocephalic atraumatic mucous membranes moist. Breathing unlabored no accessory muscle use good effort. Skin shows no rashes no pallor or icterus. Diffuse motor weakness with left arm and hand being really his only major focus of control left. Results & Data Results & Data ([facility]) Vital Signs (Past 12 Hours) Vital Signs Temp Pulse Pulse Resp BP Pulse Ox O2 Del Method 05/22/22 15:47 98.4 F 82 20 155/87 H 95 Room Air 05/22/22 15:21 83 05/22/22 10:10 Room Air 05/22/22 07:44 97.5 F L 74 20 132/71 95 Room Air 05/22/22 07:12 76 PG Care Time/CCT Total # of Minutes Spent Total Time Spent with Patient: Total time spent is greater than 50% in coordination of care (as documented) at patient's floor/unit and/or counseling patient: Coding Level of Care Code 13956 Subseq Hosp Care Lvl 3 Diagnoses Myelopathy concurrent with and due to spinal stenosis of cervical region M48.02; G99.2 Paraplegia G82.20 Chronic indwelling Pike catheter Z97.8 CKD (chronic kidney disease) stage 3, GFR 30-59 ml/min N18.3 Type 2 diabetes mellitus, uncontrolled E11.65 Narcotic dependence F11.20 Diastolic congestive heart failure I50.30 History of CVA (cerebrovascular accident) Z86.73 Hx of CABG Z95.1 Hx of pulmonary embolus Z86.711 History of GI bleed Z87.19 Sleep apnea, organic G47.30 S/P ileostomy Z93.2
[2022-05-22] MEDS: dexAMETHasone 4 MG in SYRINGE 0 ML IV SCH (21:25)
[2022-05-23] MEDS: ENOXAPARIN 150 MG/ML SYR SC SCH ×2 (05:38→17:28)
[2022-05-23] MEDS: dexAMETHasone 4 MG in SYRINGE 0 ML IV SCH ×3 (06:08→21:37)
--- NOTE | 2022-05-23 06:59 | Magnetic Resonance Report ---
MRI OF THE LUMBAR SPINE WITH AND WITHOUT CONTRAST CLINICAL HISTORY: r/o stenosis. subacute urinary retention. paraplegia. COMPARISON STUDY: CT of the abdomen and pelvis February 17, 2022. TECHNIQUE: Utilizing a 1.5 Irais magnet and dedicated coil, multiplanar, multiecho imaging of the kevin mbar spine was performed before and after uneventful IV administration of 13.5 mL of Gadavist. FINDINGS: For purposes of numbering on this exam, the L5-S1 disc space is assigned to axial image 23 of 25. Ali gnment of the lumbar spine is anatomic. Vertebral body heights are maintained. There is no marrow nellie ma or marrow replacement. There are multiple small Schmorl's nodes. Note is made of a hemangioma with in the L4 vertebral body. There is also made of muscular atrophy and chronic deformity of the sacrum, as shown on prior CT of the abdomen and pelvis. No intracanalicular mass or fluid collection. Conus terminates at the upper L1 level. Paravertebral soft tissues are unremarkable. There is no abnormal e nhancement within the canal. L1-2: The central canal and neural foramen are patent. There is mild facet arthrosis. L2-3: There is a tiny left paracentral annular tear. There is moderate facet arthrosis. There is mild ligamentous hypertrophy. Central canal and neural foramen are patent. L3-4: Mild disc space narrowing is noted with facet arthrosis and ligamentous hypertrophy. There is n o significant central canal stenosis. There is no neural foraminal stenosis. L4-5: There is mild disc space narrowing with central disc protrusion. There is facet arthrosis with ligamentous hypertrophy. There is no narrowing of the central canal. There is no significant neural f oraminal stenosis. L5-S1: Moderate facet arthrosis is noted. There is a central annular tear. Central canal and neural f oramen are patent. IMPRESSION: 1. No acute process within the lumbar spine by MRI. 2. Mild multilevel degenerative disc disease and facet arthrosis. No severe central canal stenosis. M ild central canal stenosis at L4-L5. 3. No significant neural foraminal stenosis. ACT 112: Negative or not required by law. Electronically signed by: Jaime Arias M.D. 05/23/2022 6:56 AM
[2022-05-23 07:04] LABS: Albumin Globulin Ratio 0.8 (0.9-2); Albumin Level 2.9 gm/dl (3.4-5.0); BUN Creatinine Ratio 18.5 (10-20); Bilirubin,Total 0.4 mg/dl (0.2-1.0); Calcium 8.4 mg/dl (8.5-10.1); Creatinine Clr Calc Pharmacy 101.4 ml/min; Est GFR (African American) 82.1 ml/min; Est GFR (Non-African American) 70.8 ml/min; Globulin 3.8 gm/dl (2.5-4.0); Potassium 3.8 mmol/L (3.5-5.1); Total Protein 6.7 gm/dl (6.0-8.3)
[2022-05-23] MEDS: INSULIN ASPART PER UNIT SC SCH ×5 (07:38→21:51)
[2022-05-23] MEDS: INSULIN REGULAR 250 UNITS in SODIUM CHLORIDE 0.9% 247.5 ML IV SCH (07:39)
[2022-05-23] MEDS ORDERED: LANTUS PER UNIT CHARGE SQ ONE (09:00)
--- NOTE | 2022-05-23 09:06 | Orthopedic Consultation ---
Date of Consultation May 23, 2022 Assessment & Plan (1) Myelopathy concurrent with and due to spinal stenosis of cervical region: Cervical discrimination with myeloradiculopathy. Plan at this time a lengthy discussion with this patient regarding his clinical risk presentation and treatment plan. He has surgery arranged at [facility]. This would be the preferred location in light of his health history. Patient stands agrees. Transfer is being arranged. History of Present Illness Reason for Consultation: Cervical disc herniation with myelopathy Attending Physician: Fish Jiménez, DO History of Present Illness This a very pleasant 52-year-old male known to me from his last visit to the hospital. He is noting worsening function of the upper extremities. Allergies Allergy/AdvReac Type Severity Reaction Status Date / Time sulfamethoxazole AdvReac Unknown "Levels Verified 02/17/22 00:49 [From Bactrim] were up"-per [facility] trimethoprim [From Bactrim] AdvReac Unknown "Levels Verified 02/17/22 00:49 were up"-per [facility] Home Medications Medication Instructions Recorded Confirmed Type insulin aspart U-100 100 unit/mL 0 unit subcut TIDM per sliding 10/08/18 02/24/22 History (3 mL) subcutaneous pen (Novolog scale Flexpen U-100 Insulin aspart) gabapentin 300 mg capsule See Rx Instructions .Route .COMPLEX 01/14/19 02/24/22 History famotidine 40 mg tablet (Pepcid) 40 mg PO QAM 05/27/19 02/24/22 History allopurinol 300 mg tablet 300 mg PO QAM 01/23/20 02/24/22 History cholecalciferol (vitamin D3) 25 25 mcg PO DAILY 01/23/20 02/24/22 History mcg (1,000 unit) capsule insulin glargine U-300 conc 300 50 unit subcut BID 08/10/21 02/24/22 History unit/mL (1.5 mL) subcutaneous pen (Toujeo SoloStar U-300 Insulin) warfarin 2.5 mg tablet 2.5 mg PO DAILY 08/13/21 02/24/22 History carvedilol 6.25 mg tablet 6.25 mg PO BID #60 tabs 09/30/21 02/24/22 Rx finerenone 10 mg tablet (Kerendia) 10 mg PO DAILY 12/29/21 02/24/22 History clotrimazole-betamethasone 1 1 applic topical BID PRN affected 02/24/22 02/24/22 History %-0.05 % topical cream area nystatin 100,000 unit/gram topical 1 applic topical BID 02/24/22 02/24/22 History powder ertapenem 1 gram solution for 1 g IV DAILY #14 ea 04/26/22 Rx injection gabapentin 300 mg capsule 300 mg PO DAILY@14 #30 caps 04/26/22 Rx oxycodone 30 mg tablet 15 - 30 mg PO TID PRN pain #20 tabs 04/28/22 02/24/22 Rx Patient History Medical History (Updated 05/23/22 @ 00:05 by Mikal Guerrero) Celiac disease Chronic indwelling Velazquez catheter Chronic kidney disease, stage 3a follows with [facility] Coronary artery disease CABG x 1 2012-VG to LAD, multiple stents, follows with [facility] Diastolic congestive heart failure EF 55-59% Difficult airway for intubation 01/18/22 Patient unable to be intubated with Glidescope 4 - good view but unable to pass ETT, Igel #5 easily placed and worked well DM type 2 (diabetes mellitus, type 2) IDDM GI bleed 2018 requiring 3 blood transfusions, transferred to [facility] with work-up not revealing clear cause per records Gout Hepatitis C TREATED Hirschsprung's disease History of blood transfusion 2018 in setting of GI bleed History of COVID-19 05/2021- no symptoms- no hospitalization History of CVA (cerebrovascular accident) 2012-admitted [facility] History of endocarditis TREATED AT [facility]-2012 History of GI bleed History of intravenous drug abuse Hx of pulmonary embolus Hyperlipidemia Morbid obesity Paraplegia Pulmonary emboli 05/2010-unknown cause- admitted and treated at [facility] Pulmonary hypertension Sleep apnea, organic NO DEVICE AT THIS TIME, HIS MACHINE WAS INVOLVED IN RECALL Surgical History (Updated 05/21/22 @ 05:03 by Adama Fisher MD) H/O aortic root repair 05/2016- [facility] H/O [facility] Hx of CABG 2012 [facility]- DUE TO ENDOCARDITIS, single vessel per records S/P brain surgery 2013- [facility] S/P cardiac cath S/P colostomy FOLLOWS W/ [facility] S/P ileostomy Family History Father Cardiac disorder Hypertension Prostate cancer Diabetes Coronary heart disease COPD (chronic obstructive pulmonary disease) Pacemaker Mother Hypertension Skin cancer Dementia Social History Smoking Status: Never smoker Tobacco Type: Cigarettes Second Hand Exposure: No; Hx Alcohol Use: No Hx Substance Use: Yes Preferred Language: Canadian Communication Ability: Effective 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: No Beliefs That Will Affect Care: None marital status: Single Current Living Situation: Parent Current Living Situation Comment: Lives with parents and has caregivers to come and help with ADLs current occupational status: employed 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 How many Children do You have: 2 Other Information That Helps Us Care for You: No Feels Safe at Home: Yes Safety Concerns: Feels Safe At This Time Assistive Devices: Hospital Bed, Mechanical Lift and Wheelchair Results & Data ([facility]) Vital Signs (Past 12 Hours) Vital Signs Temp Pulse Pulse Resp BP Pulse Ox O2 Del Method 05/23/22 07:33 36.9 C 58 L 18 160/82 H 99 Room Air 05/23/22 06:57 70 05/23/22 03:01 36.5 C 72 18 122/79 95 BiPAP 05/23/22 01:57 78 18 96 05/23/22 02:07 Room Air 05/22/22 22:35 95 H 05/22/22 23:09 36.7 C 92 H 18 142/77 H 95 Room Air O2 Flow Rate FiO2 05/23/22 07:33 05/23/22 06:57 05/23/22 03:01 05/23/22 01:57 0 21 05/23/22 02:07 05/22/22 22:35 05/22/22 23:09
--- NOTE | 2022-05-23 13:45 | Pharmacy Report ---
Pharmacy Glycemic Short Note 2 - Date of Service May 23, 2022 - Glycemic Short BSG Results (Last 24 hours): 05/22/22 05/22/22 05/22/22 14:28 15:28 16:28 Glucose POC Glucose 120 H 126 H 155 H 05/22/22 05/22/22 05/22/22 18:29 19:27 21:32 Glucose POC Glucose 136 H 141 H 138 H 05/22/22 05/23/22 05/23/22 22:32 00:35 01:46 Glucose POC Glucose 146 H 194 H 218 H 05/23/22 05/23/22 05/23/22 03:32 04:31 05:37 Glucose POC Glucose 174 H 156 H 144 H 05/23/22 05/23/22 05/23/22 06:15 07:27 11:39 Glucose 162 H POC Glucose 140 H 201 H OUTPATIENT ANTIDIABETIC REGIMEN: * Toujeo 50 units SC BID * Novolog SC TIDM * HbA1c 7.7% on 05/21/22 ASSESSMENT: * Patient continued on insulin infusion yesterday with rates of 7.4-14.4 units/hr. * This morning, fasting was 140 mg/dL with a drip rate of 8.9 units/hr. * Patient had received 140 units of basal yesterday plus 30 units of bolus for mealtime coverage. * Stop insulin infusion and continue Lantus 70 units daily. * Extremely tight Novolog coverage since patient continues on dexamethasone 4 mg IV q8. BACKGROUND * 52 yo M admitted with myelopathy concurrent with and due to spinal stenosis of cervical region. Steroids initiated and severe hyperglycemia noted 10 AM. Insulin drip was initiated at that time for hyperglycemia. * However, despite titrating up to over 40 units/hr of insulin over the course of the day yesterday, BSG's remained >300 mg/dL. Dexamethasone was held. Insulin drip was re-made, a separate IV site was utilized and drip was resumed at 10 units/hr with the new bag last night. Drip rates have since stayed elevated but much more stable at rates no longer exceeding 14 units/hr, and BSG's have come down nicely and are now in goal range. Dexamethasone resumed this AM at prior dose of 4 mg IV q8h. Anion gap and CO2 have remained in normal range. * Unlikely to be able to titrate off insulin drip while on steroids, unless needs decrease. Hesitant to increase Lantus too much in case steroids are stopped, as previous admissions indicate that basal needs off of steroids are significantly less than outpatient reported regimen. Will provide a maximum of 160 units of Lantus per day for now. * Will fix CHO ratio at tight amount, as insulin drip calculator will not go below 5 g CHO/unit PLAN FOR INPATIENT GLYCEMIC CONTROL: * Basal insulin * Lantus 70 units SQ BID * Bolus insulin * NovoLog per scale ACHS or Q6hrs while NPO * Goal Range: Low 110 mg/dL - High 140 mg/dL * Correction Factor: 6 mg/dL/unit * Nutritional / Prandial insulin per carb ratio of 1 unit per 1.5 grams CHO consumed
--- NOTE | 2022-05-23 18:06 | Hospitalist Progress Note ---
Date of Service May 23, 2022 Assessment & Plan (1) Myelopathy concurrent with and due to spinal stenosis of cervical region: Plan: 52 year old male w/ PMHx of myelopathy, chronic pike, hx of CVA, and moderate- severe cervical spinal stenosis, and impacted kidney stone who presents with worsening bilateral upper extremity weakness (worse on left) for several weeks (original onset December 2021), no recent trauma. - subacute, pain appears to be new from last admission - per 04/22/22 ortho spine consult note, urgent surgical intervention after resolution of bacteremia at the time was recommended. During the 04/20/22-04/28/22 [facility] admission, [facility] had accepted transfer, but subsequent plans changed to expedited outpatient surgery eval and surgery at [facility]. Patient was evaluated but could not proceed due to insurance change. His new insurance starts 05/21/22 - s/p IV Decadron. Will continue IV Decadron - repeat MRI c spine. pending result, will reassess if transfer to tertiary center. will also order MRI of lumbar spine to elucidate lower extremity pa raplegia given inconsistencies in patient history (see below) - 04/20/22 brain MRI w/o acute changes - order cervical collar to limit neck extension - consult Dr. Garcia (ortho spine) * Recommended transfer to [facility]. Obtained new MRI C-spine, L-spine at request of on-call spine surgeon showing no acute changes. However, given patient's acutely worse course, recommended transfer in the event patient's course acutely decompensates. Awaiting to hear from [facility] regarding bed placement. 04/22/22 MRI cervical spine The alignment is anatomical. Disks are normal in height and signal. C2-C3: Unremarkable. C3-C4: There is mild bilateral neural foraminal stenosis due to a broad base posterior disc bulge. C4-C5: Large posterior disc bulge is seen with severe canal stenosis, measuring 3 mm in AP diameter. There is moderate bilateral neuroforaminal stenosis at this level. C5-C6: There is a broad-based posterior disc bulge with moderate canal stenosis, AP diameter 7 mm. Facet arthropathy results in mild right and severe left neural foraminal stenosis. C6-C7: There is a broad-based posterior disc bulge with moderate canal stenosis, AP diameter 7 mm. There is moderate right and severe left neural foraminal stenosis. C7-T1: Unremarkable. The spinal ligaments are intact, without evidence of disruption or abnormal signal intensity. T2 hyperintensity is noted in the spinal cord most prominent at the level of C4-C5. There is no evidence of an extradural, intradural, extramedullary or intramedullary lesion. Visualized soft tissues are normal. Visualized brain parenchyma is normal. IMPRESSION: Multilevel degenerative changes with up to severe canal stenosis with AP diameter of 3 mm, with associated cord edema. No acute cortical infarct is seen. There is up to moderate right and severe left neural foraminal stenosis. (2) Paraplegia: Plan: - per chart hx. patient (poor historian) paints slightly different picture. states resideual RLE after stroke in 2012 and LLE weakness followed. States no bowel issues and pike is new since 02/2022 secondary to severe upper extremity weakness and inability to use wheelchair and commode (3) Chronic indwelling Pike catheter: Plan: - see above. will need to further explore whether the relatively new need for this (several months) is related to spinal stenosis issues - treated for esbl ecoli UTI and resultant bacteremia at last admission w/ ertapenem. per patient, transitioned to PO antibiotics and still taking. will be discontinuing abx at this time. - per previous admission dc summary, had considered addressing likely impacted kidney stone in inpatient setting because possibly contributing to recurrent UTIs - per patient, being worked up by urology as outpatient and missed recent appointment. pending dispo plans (e.g. transfer) consider urology consult and obtaining imaging records from [facility] (4) CKD (chronic kidney disease) stage 3, GFR 30-59 ml/min: Plan: - at / slightly better than baseline. follow bmp (5) Type 2 diabetes mellitus, uncontrolled: Plan: - check A1c in AM - pharmacy glycemic consult. SSI + Lantus -Started on insulin drip due to BSG-363 despite SSI, Lantus. Recheck in the morning. (6) Narcotic dependence: Plan: - chart hx has chronic pain syndrome - per PDMP, 135 MME/day (oxycodone 30mg TID) for past 1.5 year+. will be providing reduced dose oxycodone 10mg q8h prn for severe 7-10 pain. recommend outpatient re-examining of regimen. per patient, the severe arm pain was only in past 2 weeks. - in past, patient reportedly was told not to take tylenol because of his liver. removed scheduled tylenol order (7) Diastolic congestive heart failure: Plan: - noted. use IV fluids cautiously (8) History of CVA (cerebrovascular accident): Plan: -noted (9) Hx of CABG: Plan: - CAD hx noted (10) Hx of pulmonary embolus: Plan: - continue therapeutic anticoagulation. on warfarin normally, but is temporarily on therapeutic Lovenox (started in outpatient setting) in anticipation of spinal surgery (11) History of GI bleed: Plan: - noted. on therapeutic anticoagulation. avoid nsaids (12) Sleep apnea, organic: Plan: - qhs bipap (13) S/P ileostomy: Plan: - routine care Plan FEN/GI: DM2 low Na gluten free diet. No IV fluids anticoag: therapeutic Lovenox 1mg/kg BID code: full dispo: Rouxbe. neurovasc checks Admission and Anticipated Discharge Date Admission Date: May 20, 2022 Supervising Physician Co-Signing Physician Notes I have physically seen this patient, have supervised the medical residents activities, and agree with Dr. Moffett's note. Pt is currently stable in terms of pain management and has no constipation or acute abdominal findings. Await transfer to [facility] for Surgical management of C4/C5 disc bulge. Unchanged neuro exam at this time. Subjective No acute events overnight. Patient's glucose remains well controlled. Drip discontinued. Now on SQ insulin with tighter control, as dexamethasone has been restarted. Patient continues to report diminished bilateral timber deadener strength, L >R, bilateral wrist weakness. Tolerating diet well. Review of Systems Review of Systems: All systems reviewed & are unremarkable except as noted in HPI & below Physical Exam Physical Exam: General: Morbidly obese man who appears older than stated age who is alert, interactive, and in mild distress. Neck: Supple. No lymphadenopathy. Normal ROM. CV: Regular rate and rhythm. Normal S1 and S2. No murmurs gallops or rubs. Respiratory: Normal respiratory effort. Lungs clear to auscultation bilaterally. Abdomen: Soft, protuberant abdomen. No bruits heard on auscultation. No tenderness to deep palpation. Extremities: Bilateral LE weakness at the hand, wrist, and elbow joints. Clear focal weakness on the left, despite bilateral weakness of the upper extremities. Mild tenderness to palpation of UE. Otherwise, no focal sensory deficits appreciated. Neuro: Alert and oriented x3. Skin: Clean, dry, and intact. Some erythema noted at the distal LE bilaterally, proximal to the ankles. Results & Data Results & Data ([facility]) Vital Signs (Past 12 Hours) Vital Signs Temp Pulse Pulse Resp BP Pulse Ox O2 Del Method 05/23/22 17:09 36.8 C 89 18 152/90 H 94 Room Air 05/23/22 17:00 89 05/23/22 11:34 36.6 C 78 19 134/75 97 Room Air 05/23/22 08:40 Room Air 05/23/22 07:33 36.9 C 58 L 18 160/82 H 99 Room Air 05/23/22 06:57 70 Resident Activity Tracking Resident Involvement: Resident Care Provided Care Provided: Adult Hospital Medicine
[2022-05-23] MEDS ORDERED: LANTUS PER UNIT CHARGE SQ SCH (21:00)
[2022-05-23] MEDS: oxyCODONE HCL IR 30 MG TAB (IMMEDIATE RELEASE) PO PRN (21:35)
[2022-05-23] MEDS: GABAPENTIN 300 MG CAP PO SCH (21:38)
[2022-05-24] MEDS: INSULIN ASPART PER UNIT SC SCH ×6 (01:11→21:40)
[2022-05-24] MEDS: ENOXAPARIN 150 MG/ML SYR SC SCH ×2 (05:07→17:01)
[2022-05-24] MEDS: dexAMETHasone 4 MG in SYRINGE 0 ML IV SCH ×3 (05:08→21:39)
[2022-05-24 08:38] LABS: Hematocrit (blood only) 39.8 % (40.1-51.0); Hemoglobin 13.3 g/dl (14.0-18.0); Mean Corpuscular Hemoglobin 30.9 pg (25.0-34.0); Mean Corpuscular Hgb Conc 33.4 g/dL (32.0-36.0); Mean Corpuscular Volume 92.6 fL (80.0-100.0); Mean Platelet Volume 9.3 fL (9.4-12.4); Platelet Count 181 K/uL (130-400); RDW Coefficient of Variation 16.6 % (11.5-14.5); RDW Standard Deviation 55.8 fL (36.4-46.3); White Blood Count 12.38 K/ul (4.8-10.8)
[2022-05-24] MEDS: oxyCODONE HCL IR 30 MG TAB (IMMEDIATE RELEASE) PO PRN ×2 (08:39→17:59)
[2022-05-24] MEDS: GABAPENTIN 600 MG TAB PO SCH (08:41)
[2022-05-24] MEDS: LANTUS PER UNIT CHARGE SQ SCH ×2 (08:43→21:40)
[2022-05-24] MEDS: MICONAZOLE NITRATE POWDER 43 GM EXT PRN (08:43)
[2022-05-24 10:37] LABS: Albumin Level 3.1 gm/dl (3.4-5.0); BUN Creatinine Ratio 25.5 (10-20); Bilirubin,Total 0.5 mg/dl (0.2-1.0); Calcium 8.5 mg/dl (8.5-10.1); Creatinine Clr Calc Pharmacy 115.8 ml/min; Est GFR (African American) 98.9 ml/min; Est GFR (Non-African American) 85.3 ml/min; Globulin 3.2 gm/dl (2.5-4.0); Total Protein 6.3 gm/dl (6.0-8.3)
--- NOTE | 2022-05-24 13:46 | Pharmacy Report ---
Pharmacy Glycemic Short Note 2 - Date of Service May 24, 2022 - Glycemic Short BSG Results (Last 24 hours): 05/23/22 05/23/22 05/24/22 16:36 20:21 01:06 Glucose POC Glucose 263 H 294 H 219 H 05/24/22 05/24/22 05/24/22 04:13 07:25 08:15 Glucose 189 H POC Glucose 168 H 169 H 05/24/22 05/24/22 09:59 11:48 Glucose POC Glucose 253 H 206 H OUTPATIENT ANTIDIABETIC REGIMEN: * Toujeo 50 units SC BID * Novolog SC TIDM * HbA1c 7.7% on 05/21/22 ASSESSMENT: * Patient's BSGs yesterday were 098-106-145-294 mg/dL and overnight were 219-168 mg/dL. Fasting today is 169 mg/dL. * Patient received 120 units of basal and 121 units of bolus (total of 241 units of insulin). He received 19 units overnight. * Increase basal to Lantus 80 units BID. * Tighten Novolog as blood sugars trend upwards throughout the day. 05/23/22 * Patient continued on insulin infusion yesterday with rates of 7.4-14.4 units/hr. * This morning, fasting was 140 mg/dL with a drip rate of 8.9 units/hr. * Patient had received 140 units of basal yesterday plus 30 units of bolus for mealtime coverage. * Stop insulin infusion and continue Lantus 70 units daily. * Extremely tight Novolog coverage since patient continues on dexamethasone 4 mg IV q8. BACKGROUND * 52 yo M admitted with myelopathy concurrent with and due to spinal stenosis of cervical region. Steroids initiated and severe hyperglycemia noted 10 AM. Insulin drip was initiated at that time for hyperglycemia. * However, despite titrating up to over 40 units/hr of insulin over the course of the day yesterday, BSG's remained >300 mg/dL. Dexamethasone was held. Insulin drip was re-made, a separate IV site was utilized and drip was resumed at 10 units/hr with the new bag last night. Drip rates have since stayed elevated but much more stable at rates no longer exceeding 14 units/hr, and BSG's have come down nicely and are now in goal range. Dexamethasone resumed this AM at prior dose of 4 mg IV q8h. Anion gap and CO2 have remained in normal range. * Unlikely to be able to titrate off insulin drip while on steroids, unless needs decrease. Hesitant to increase Lantus too much in case steroids are stopped, as previous admissions indicate that basal needs off of steroids are significantly less than outpatient reported regimen. Will provide a maximum of 160 units of Lantus per day for now. * Will fix CHO ratio at tight amount, as insulin drip calculator will not go below 5 g CHO/unit PLAN FOR INPATIENT GLYCEMIC CONTROL: * Basal insulin * Lantus 80 units SQ BID * Bolus insulin * NovoLog per scale ACHS or Q6hrs while NPO * Goal Range: Low 110 mg/dL - High 140 mg/dL * Correction Factor: 5 mg/dL/unit * Nutritional / Prandial insulin per carb ratio of 1 unit per 1 grams CHO co nsumed
--- NOTE | 2022-05-24 18:53 | Hospitalist Progress Note ---
Date of Service May 24, 2022 Assessment & Plan (1) Myelopathy concurrent with and due to spinal stenosis of cervical region: Plan: 52 year old male w/ PMHx of myelopathy, chronic Pike, hx of CVA, and moderate- severe cervical spinal stenosis, and impacted kidney stone who presents with worsening bilateral upper extremity weakness (worse on left) for several weeks (original onset December 2021), no recent trauma. - subacute, pain appears to be new from last admission - per 04/22/22 ortho spine consult note, urgent surgical intervention after resolution of bacteremia at the time was recommended. During the 04/20/22-04/28/22 [facility] admission, [facility] had accepted transfer, but subsequent plans changed to expedited outpatient surgery evaluation and surgery at [facility]. Patient was evaluated but could not proceed due to insurance change. His new insurance starts 05/21/22 - s/p IV Decadron. Will continue IV Decadron - repeat MRI c spine. pending result, will reassess if transfer to tertiary center. will also order MRI of lumbar spine to elucidate lower extremity paraplegia given inconsistencies in patient history (see below) - 04/20/22 brain MRI w/o acute changes - order cervical collar to limit neck extension - consult Dr. Garcia (ortho spine) * Recommended transfer to [facility]. Obtained new MRI C-spine, L-spine at request of on-call spine surgeon showing no acute changes. However, given patient's acutely worse course, recommended transfer in the event patient's course acutely decompensates. Awaiting to hear from [facility] regarding bed placement. * [facility] spine surgeon plans to schedule him on an outpatient basis. Patient aware, wants to go home as he apparently has aides at home. Will confirm with case management tomorrow before initiating discharge process. Patient unable to care for himself at home without assistance. 04/22/22 MRI cervical spine The alignment is anatomical. Disks are normal in height and signal. C2-C3: Unremarkable. C3-C4: There is mild bilateral neural foraminal stenosis due to a broad base posterior disc bulge. C4-C5: Large posterior disc bulge is seen with severe canal stenosis, measuring 3 mm in AP diameter. There is moderate bilateral neuroforaminal stenosis at this level. C5-C6: There is a broad-based posterior disc bulge with moderate canal stenosis, AP diameter 7 mm. Facet arthropathy results in mild right and severe left neural foraminal stenosis. C6-C7: There is a broad-based posterior disc bulge with moderate canal stenosis, AP diameter 7 mm. There is moderate right and severe left neural foraminal stenosis. C7-T1: Unremarkable. The spinal ligaments are intact, without evidence of disruption or abnormal signal intensity. T2 hyperintensity is noted in the spinal cord most prominent at the level of C4-C5. There is no evidence of an extradural, intradural, extramedullary or intramedullary lesion. Visualized soft tissues are normal. Visualized brain parenchyma is normal. IMPRESSION: Multilevel degenerative changes with up to severe canal stenosis with AP diameter of 3 mm, with associated cord edema. No acute cortical infarct is seen. There is up to moderate right and severe left neural foraminal stenosis. (2) Paraplegia: Plan: - per chart hx. patient (poor historian) paints slightly different picture. states resideual RLE after stroke in 2012 and LLE weakness followed. States no bowel issues and pike is new since 02/2022 secondary to severe upper extremity weakness and inability to use wheelchair and commode (3) Chronic indwelling Pike catheter: Plan: - see above. will need to further explore whether the relatively new need for this (several months) is related to spinal stenosis issues - treated for esbl ecoli UTI and resultant bacteremia at last admission w/ ertapenem. per patient, transitioned to PO antibiotics and still taking. will be discontinuing abx at this time. - per previous admission dc summary, had considered addressing likely impacted kidney stone in inpatient setting because possibly contributing to recurrent UTIs - per patient, being worked up by urology as outpatient and missed recent appointment. pending dispo plans (e.g. transfer) consider urology consult and [facility] (4) CKD (chronic kidney disease) stage 3, GFR 30-59 ml/min: Plan: - at / slightly better than baseline. follow bmp (5) Type 2 diabetes mellitus, uncontrolled: Plan: - check A1c in AM - pharmacy glycemic consult. SSI + Lantus -Started on insulin drip due to BSG-363 despite SSI, Lantus. Recheck in the morning. (6) Narcotic dependence: Plan: - chart hx has chronic pain syndrome - per PDMP, 135 MME/day (oxycodone 30mg TID) for past 1.5 year+. will be providing reduced dose oxycodone 10mg q8h prn for severe 7-10 pain. recommend outpatient re-examining of regimen. per patient, the severe arm pain was only in past 2 weeks. - in past, patient reportedly was told not to take tylenol because of his liver. removed scheduled tylenol order (7) Diastolic congestive heart failure: Plan: - noted. use IV fluids cautiously (8) History of CVA (cerebrovascular accident): Plan: -noted (9) Hx of CABG: Plan: - CAD hx noted (10) Hx of pulmonary embolus: Plan: - continue therapeutic anticoagulation. on warfarin normally, but is temporarily on therapeutic Lovenox (started in outpatient setting) in anticipation of spinal surgery (11) History of GI bleed: Plan: - noted. on therapeutic anticoagulation. avoid nsaids (12) Sleep apnea, organic: Plan: - qhs bipap (13) S/P ileostomy: Plan: - routine care Plan FEN/GI: DM2 low Na gluten free diet. No IV fluids anticoag: therapeutic Lovenox 1mg/kg BID code: full dispo: [email or web address]. neurovasc checks Admission and Anticipated Discharge Date Admission Date: May 20, 2022 Supervising Physician Co-Signing Physician Notes I saw patient and performed an exam as well as discussed care with Dr. Moffett. At this time, [facility] would like to have patient receive the surgery in the outpatient setting. Thus, we are working on an appropriate discharge plan for him. We will need to appropriately transition him off of prednisone and keep control of his blood sugars. He does have aides at home and this will need to be confirmed with social work as well as his family to ensure that he has appropriate care for activities of daily living such as feeding given his myopathy and appropriate care in terms of checking his blood sugars Subjective Patient is awake, watching television on arrival. He has no acute complaints. Patient had a conversation with his spine surgeon at [facility] Dr. Feldman, who informed him that he would be scheduling his procedure on outpatient basis. As the patient is unable to feed himself or complete his ADLs independently at this time, he understands that he might have to stay here until his procedure. However, he would like to go home because he has aides at home that can help him. This was previously established. Plan to speak to case management regarding living situation. Review of Systems Review of Systems: All systems reviewed & are unremarkable except as noted in HPI & below Physical Exam Physical Exam: General: Morbidly obese man who is otherwise alert, interactive, and in mild distress. Neck: Supple. No lymphadenopathy. Normal ROM. CV: Regular rate and rhythm. Normal S1 and S2. No murmurs gallops or rubs. Respiratory: Normal respiratory effort. Lungs clear to auscultation bilaterally. Abdomen: Soft, protuberant abdomen. No bruits heard on auscultation. No tenderness to deep palpation. Extremities: Bilateral LE weakness at the hand, wrist, and elbow joints. Clear focal weakness on the left, despite bilateral weakness of the upper extremities. Mild tenderness to palpation of UE. Otherwise, no focal sensory deficits appreciated. Neuro: Alert and oriented x3. Skin: Clean, dry, and intact. Some erythema noted at the distal LE bilaterally, proximal to the ankles. Results & Data Results & Data ([facility]) Vital Signs (Past 12 Hours) Vital Signs Temp Pulse Pulse Resp BP Pulse Ox O2 Del Method 05/24/22 15:00 94 H 05/24/22 14:55 36.9 C 94 H 18 145/84 H 94 Room Air 05/24/22 07:50 Room Air 05/24/22 11:13 36.8 C 86 18 161/89 H 92 Room Air 05/24/22 07:48 36.5 C 66 18 141/78 H 97 Room Air 05/24/22 07:36 71 Resident Activity Tracking Resident Involvement: Resident Care Provided Care Provided: Adult Hospital Medicine
[2022-05-24] MEDS: GABAPENTIN 300 MG CAP PO SCH (21:39)
[2022-05-25] MEDS ORDERED: MELATONIN 3 MG TAB PO ONE (00:06)
[2022-05-25] MEDS ORDERED: ACETAMINOPHEN 500 MG TAB PO ONE (00:06)
[2022-05-25] MEDS: ENOXAPARIN 150 MG/ML SYR SC SCH (05:01)
[2022-05-25] MEDS: dexAMETHasone 4 MG in SYRINGE 0 ML IV SCH ×2 (05:01→13:44)
[2022-05-25] MEDS: oxyCODONE HCL IR 30 MG TAB (IMMEDIATE RELEASE) PO PRN (08:46)
[2022-05-25] MEDS: INSULIN ASPART PER UNIT SC SCH ×2 (08:46→12:07)
[2022-05-25] MEDS: GABAPENTIN 600 MG TAB PO SCH (08:46)
[2022-05-25] MEDS: MICONAZOLE NITRATE POWDER 43 GM EXT PRN (08:46)
[2022-05-25] MEDS ORDERED: LANTUS PER UNIT CHARGE SQ SCH (09:00)
--- NOTE | 2022-05-25 13:37 | Pharmacy Report ---
Pharmacy Glycemic Short Note 2 - Date of Service May 25, 2022 - Glycemic Short BSG Results (Last 24 hours): 05/24/22 05/24/22 05/25/22 16:37 20:15 07:53 POC Glucose 178 H 212 H 213 H 05/25/22 11:46 POC Glucose 217 H OUTPATIENT ANTIDIABETIC REGIMEN: * Toujeo 50 units SC BID * Novolog SC TIDM * HbA1c 7.7% on 05/21/22 ASSESSMENT: * Patient's BSGs yesterday were [phone] mg/dL and fasting today was 213 mg/dL. * Patient received 330 units of insulin (160 units of basal and 170 units of bolus). This represents a 20% increase compared to 05/23. * Fasting is trending upwards so increase to 90 units BID (10% increase). * BSGs trend up throughout the day so tighten CR. * Per discussion with resident, dexamethasone should be continued for 7 days. 05/24/22 * Patient's BSGs yesterday were [phone] mg/dL and overnight were 219-168 mg/dL. Fasting today is 169 mg/dL. * Patient received 120 units of basal and 121 units of bolus (total of 241 units of insulin). He received 19 units overnight. * Increase basal to Lantus 80 units BID. * Tighten Novolog as blood sugars trend upwards throughout the day. 05/23/22 * Patient continued on insulin infusion yesterday with rates of 7.4-14.4 u nits/hr. * This morning, fasting was 140 mg/dL with a drip rate of 8.9 units/hr. * Patient had received 140 units of basal yesterday plus 30 units of bolus for mealtime coverage. * Stop insulin infusion and continue Lantus 70 units daily. * Extremely tight Novolog coverage since patient continues on dexamethasone 4 mg IV q8. BACKGROUND * 52 yo M admitted with myelopathy concurrent with and due to spinal stenosis of cervical region. Steroids initiated and severe hyperglycemia noted 10/1 AM. Insulin drip was initiated at that time for hyperglycemia. * However, despite titrating up to over 40 units/hr of insulin over the course of the day yesterday, BSG's remained >300 mg/dL. Dexamethasone was held. Insulin drip was re-made, a separate IV site was utilized and drip was resumed at 10 units/hr with the new bag last night. Drip rates have since stayed elevated but much more stable at rates no longer exceeding 14 units/hr, and BSG's have come down nicely and are now in goal range. Dexamethasone resumed this AM at prior dose of 4 mg IV q8h. Anion gap and CO2 have remained in normal range. * Unlikely to be able to titrate off insulin drip while on steroids, unless needs decrease. Hesitant to increase Lantus too much in case steroids are stopped, as previous admissions indicate that basal needs off of steroids are significantly less than outpatient reported regimen. Will provide a maximum of 160 units of Lantus per day for now. * Will fix CHO ratio at tight amount, as insulin drip calculator will not go below 5 g CHO/unit PLAN FOR INPATIENT GLYCEMIC CONTROL: * Basal insulin * Lantus 90 units SQ BID * Bolus insulin * NovoLog per scale ACHS or Q6hrs while NPO * Goal Range: Low 110 mg/dL - High 140 mg/dL * Correction Factor: 5 mg/dL/unit * Nutritional / Prandial insulin per carb ratio of 1 unit per 0.75 grams CHO consumed
--- NOTE | 2022-05-25 20:30 | Discharge Summary ---
Date of Service May 25, 2022 Admission HPI Per Admitting Provider 52 year old male w/ PMHx of myelopathy, chronic pike, hx of CVA (2012), and moderate-severe cervical spinal stenosis, and impacted kidney stone who presents with worsening bilateral upper extremity weakness (worse on left) for several weeks (original onset December 2021), no recent trauma. He was admitted to [facility] 04/20/22-04/28/22 for these symptoms and bacteremia secondary to UTI. The initial plan was inpatient transfer to [facility] for spine surgery, but this plan was alter revised to outpatient with expedited scheduling. The current presentation of symptoms involves worsened weakness and notably worsened pain (4/ 0->6-10/10). Patient does describe the pain as radiclar this visit. He has paresthesias at his hands. 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 He has difficulty eating with spoon and turning in bed. Has frequent home aides. + left neck pain. no headache, blurry vision, or fever. Denies urinary symptoms. Chronic pike x ~2 months; states is because of upper extremity weakness. Uses marijuana. Hx of IVDU (oxycodone injection). Has been on Lovenox 135 BID since 05/07/22 because was scheduled for outpatient spine surgery with [facility]; appointment cancelled because was in process of switching insurance (starts tomorrow). Patient is still taking oral antibiotics for UTI; states he was switched to this after finishing the course of Ertapenem (discharged w/ outpatient infusion of this at last admission). ED course: IV dexamethasone 10mg x1. wbc 10.13. Hb 12.2, stable from 04/28/22. Baseline 13s+. INR 1.0. Na 132, ~chronic. Cr 1.24, baseline. bsg 275. Mg 1.4. alk phos 118. UA w/ 3+ blood, 3+ LE, >30 wbc, rbc. epithelial cells, yeast. Principal Diagnosis Severe myelopathy concurrent with and due to severe spinal stenosis Discharge Data Allergies Allergy/AdvReac Type Severity Reaction Status Date / Time sulfamethoxazole AdvReac Unknown "Levels Verified 02/17/22 00:49 [From Bactrim] were up"-per [facility] trimethoprim [From Bactrim] AdvReac Unknown "Levels Verified 02/17/22 00:49 were up"-per [facility] Consultations 05/20/22 20:37 ED Decision to Admit Stat 05/20/22 22:27 Consult Orthopedic Surgery Routine Ordered Studies 05/22/22 06:00 MR cervical spine wo/w con Routine MR lumbar spine wo/w con Routine Hospital Course (1) Myelopathy concurrent with and due to spinal stenosis of cervical region: 52 year old male w/ PMHx of myelopathy, chronic Pike, hx of CVA, and moderate- severe cervical spinal stenosis, and impacted kidney stone who presents with worsening bilateral upper extremity weakness (worse on left) for several weeks (original onset December 2021), no recent trauma. - subacute, pain appears to be new from last admission - per 04/22/22 ortho spine consult note, urgent surgical intervention after resolution of bacteremia at the time was recommended. During the 04/20/22-04/28/22 [facility] admission, [facility] had accepted transfer, but subsequent plans changed to expedited outpatient surgery evaluation and surgery at [facility]. Patient was evaluated but could not proceed due to insurance change. His new insurance starts 05/21/22 - s/p IV Decadron. Will continue IV Decadron - repeat MRI c spine. pending result, will reassess if transfer to tertiary center. will also order MRI of lumbar spine to elucidate lower extremity paraplegia given inconsistencies in patient history (see below) - 04/20/22 brain MRI w/o acute changes - order cervical collar to limit neck extension - consult Dr. Garcia (ortho spine) * Recommended transfer to [facility]. Obtained new MRI C-spine, L-spine at request of on-call spine surgeon showing no acute changes. However, given patient's acutely worse course, recommended transfer in the event patient's course acutely decompensates. Awaiting to hear from [facility] regarding bed placement. * [facility] spine surgeon plans to schedule him on an outpatient basis. Patient aware, wants to go home as he apparently has aides at home. Will confirm with case management tomorrow before initiating discharge process. Patient unable to care for himself at home without assistance. * Initiated discharge after confirming that patient has adequate support at home via home health aides. Patient is to be scheduled for spinal decompression surgery on an outpatient basis at [facility]. 04/22/22 MRI cervical spine The alignment is anatomical. Disks are normal in height and signal. C2-C3: Unremarkable. C3-C4: There is mild bilateral neural foraminal stenosis due to a broad base po sterior disc bulge. C4-C5: Large posterior disc bulge is seen with severe canal stenosis, measuring 3 mm in AP diameter. There is moderate bilateral neuroforaminal stenosis at this level. C5-C6: There is a broad-based posterior disc bulge with moderate canal stenosis, AP diameter 7 mm. Facet arthropathy results in mild right and severe left neural foraminal stenosis. C6-C7: There is a broad-based posterior disc bulge with moderate canal stenosis, AP diameter 7 mm. There is moderate right and severe left neural foraminal stenosis. C7-T1: Unremarkable. The spinal ligaments are intact, without evidence of disruption or abnormal signal intensity. T2 hyperintensity is noted in the spinal cord most prominent at the level of C4-C5. There is no evidence of an extradural, intradural, extramedullary or intramedullary lesion. Visualized soft tissues are normal. Visualized brain parenchyma is normal. IMPRESSION: Multilevel degenerative changes with up to severe canal stenosis with AP diameter of 3 mm, with associated cord edema. No acute cortical infarct is seen. There is up to moderate right and severe left neural foraminal stenosis. (2) Paraplegia: - per chart hx. patient (poor historian) paints slightly different picture. states resideual RLE after stroke in 2012 and LLE weakness followed. States no bowel issues and pike is new since 02/2022 secondary to severe upper extremity weakness and inability to use wheelchair and commode (3) Chronic indwelling Pike catheter: - see above. will need to further explore whether the relatively new need for this (several months) is related to spinal stenosis issues - treated for esbl ecoli UTI and resultant bacteremia at last admission w/ ertapenem. per patient, transitioned to PO antibiotics and still taking. will be discontinuing abx at this time. - per previous admission dc summary, had considered addressing likely impacted kidney stone in inpatient setting because possibly contributing to recurrent UTIs - per patient, being worked up by urology as outpatient and missed recent appointment. pending dispo plans (e.g. transfer) consider urology consult and obtaining imaging records from [facility] (4) CKD (chronic kidney disease) stage 3, GFR 30-59 ml/min: - at / slightly better than baseline. follow bmp (5) Type 2 diabetes mellitus, uncontrolled: - check A1c in AM - pharmacy glycemic consult. SSI + Lantus -Started on insulin drip due to [id number] despite SSI, Lantus. Recheck in the morning. (6) Narcotic dependence: - chart hx has chronic pain syndrome - per PDMP, 135 MME/day (oxycodone 30mg TID) for past 1.5 year+. will be providing reduced dose oxycodone 10mg q8h prn for severe 7-10 pain. recommend outpatient re-examining of regimen. per patient, the severe arm pain was only in past 2 weeks. - in past, patient reportedly was told not to take tylenol because of his liver. removed scheduled tylenol order (7) Diastolic congestive heart failure: - noted. use IV fluids cautiously (8) History of CVA (cerebrovascular accident): -noted (9) Hx of CABG: - CAD hx noted (10) Hx of pulmonary embolus: - continue therapeutic anticoagulation. on warfarin normally, but is temporarily on therapeutic Lovenox (started in outpatient setting) in anticipation of spinal surgery (11) History of GI bleed: - noted. on therapeutic anticoagulation. avoid nsaids (12) Sleep apnea, organic: - qhs bipap (13) S/P ileostomy: - routine care Plan FEN/GI: DM2 low Na gluten free diet. No IV fluids anticoag: therapeutic Lovenox 1mg/kg BID code: full dispo: Tinychat. neurovasc checks Total Time Total Time Spent Total Time Spent (In Minutes): 60 Discharge Plan Discharge Items Patient Disposition: Home - Home Health Services Reason For Visit: WORSENING UPPER EXTREMITY WEAKNESS AND PAIN Discharge Diagnosis: Severe cervical spinal stenosis Activity: Per Instructions section Non-emergency contact: Primary Care Provider and Surgeon Call non-emergency contact if: you have any medication questions, your symptoms worsen and your pain is worsening Follow-up/Referrals: Demarcus Nicholson DO [Primary Care Provider] - Diet: Regular Addtl Attending Provider Instructions: You were admitted to the hospital for worsening pain and weakness of your arms and hands. You were treated with IV steroids. While you were here, you were found to have a higher normal blood glucose, so we adjusted your insulin until it was back in normal range. We contacted your spine surgeon in [place] and he decided to schedule you for surgery on an outpatient basis. Therefore, we feel that you are ready to be safely discharged home. A discharge summary will be sent to your primary care physician to ensure continuity of care. Please bring this discharge summary with you to your next office appointment so that your provider can review it at that time. Follow-up appointments: * Make a follow-up appointment with your PCP within the next week. It is very important that you follow up with them shortly after discharge from the hospital. * Keep all your follow-up appointments as already scheduled. If you cannot make an appointment, notify your provider. Medications: Your medication list has been reviewed and reconciled upon discharge to ensure accuracy and continuity of care. An updated list of all your medications is included with your hospital discharge paperwork. Please review this list closely, and make note of any changes. * We are stopping your warfarin. Please do not continue to take at home unless otherwise instructed by your primary care physician. * For anticoagulation, we are sending you a medication called Lovenox to your pharmacy. Take Lovenox 1 mL twice daily via syringe. Take your medications as instructed; do not skip a dose of your medicines. Make sure all of your doctors know every medicine you are taking (including [id number] medicines, vitamins, and supplements). Call your primary care provider before taking any new medicines (including jetp-[id number] medicines, vitamins, and supplements), because some of these may interact with your current medications, or may make your symptoms worse. Tell your primary care provider if you cannot afford your medications. CONTACT YOUR PRIMARY CARE PROVIDER if you experience any of the following: * Sudden, worsening pain or weakness in your arms and/or hands. * Difficulty following your treatment plan, or difficulty taking medications CALL 911 OR GO TO THE EMERGENCY DEPARTMENT if you experience any of the following: * Sudden, severe abdominal pain or nausea/vomiting * Severe chest pain, or chest pain that radiates (moves) to your jaw or arm * Sudden, severe shortness of breath or difficulty breathing Thank you for allowing us to participate in your care. Pending Studies at Discharge: No Stand-Alone Forms: My [facility] LayerGloss, Smoking Cessation Medications and DC Order Prescriptions: New enoxaparin [Lovenox] 150 mg/mL Syringe 141 mg SC Q12@0600,1800 28 Days Qty: 60 0RF Continued allopurinol 300 mg tablet 300 mg PO QAM cholecalciferol (vitamin D3) 25 mcg (1,000 unit) capsule 25 mcg PO DAILY carvedilol 6.25 mg tablet 6.25 mg PO BID Qty: 60 6RF Rx Instructions: must administer with a meal/food Kerendia 10 mg tablet 10 mg PO DAILY gabapentin 300 mg capsule See Rx Instructions .ROUTE .COMPLEX Rx Instructions: take 2 capsules in the morning and 1 in the evening Toujeo SoloStar U-300 Insulin 300 unit/mL (1.5 mL) insulin pen 50 unit subcut BID famotidine [Pepcid] 40 mg tablet 40 mg PO QAM insulin aspart U-100 [Novolog Flexpen U-100 Insulin] 100 unit/mL Insulin Pen 0 unit SUBCUT TIDM clotrimazole-betamethasone 1-0.05 % cream 1 applic TOPICAL BID PRN (Reason: affected area) nystatin 100,000 unit/gram powder 1 applic TOPICAL BID ertapenem 1 gram recon soln 1 g IV DAILY Qty: 14 0RF gabapentin 300 mg Capsule 300 mg PO DAILY@14 Qty: 30 0RF oxycodone 30 mg tablet 15 - 30 mg PO TID PRN (Reason: pain) Qty: 20 0RF Discontinued warfarin 2.5 mg tablet 2.5 mg PO DAILY Rx Instructions: may adjust Discharge Orders: Discharge Order (Routine); Ordered 05/25/22 Ordered By: Greg Flynn/Other Patient Handouts: Managing Type 2 Diabetes, Low Back Leg Pain Causes, Back Basics: A Healthy Spine Admission Data Admit Date/Time: 05/20/22 22:27 Attending Provider: Fish Jiménez Admit Provider: Adama Fisher Primary Care Provider: Demarcus Nicholson Other Providers: Devyn Garcia ; Brant Jack Other Interventions: Discharge Summary Assessment (RN) Last Done: 05/25/22 15:28 Supervising Physician Co-Signing Physician Notes I saw patient and performed an exam as well as discussed care with Dr. Moffett. At this time, Ramy would like to have patient receive the surgery in the outpatient setting. Patient has been discharged home today where he has home health aides that can help him with activities of daily living and also help him keep track of his blood sugars. He will not be discharged with any corticosteroids but to continue with his current pain regimen. All patient's questions were satisfactorily answered. Time spent counseling patient, interviewing patient, performing physical examination, and communicating all aspects of care as well as doing chart review was 35 minutes. Resident Activity Tracking Resident Involvement: Resident Care Provided Care Provided: Adult Hospital Medicine
== END 2022-05-25 16:20 | disposition home health service (06) | DRG 552 ==
LOC: ED 16:37 → SUATTDRO 22:27 → 2W 22:27
DX: Z87.442 Personal history of urinary calculi; I69.341 Monoplegia of lower limb following cerebral infarction affecting right dominant side; Z79.01 Long term (current) use of anticoagulants; E11.22 Type 2 diabetes mellitus with diabetic chronic kidney disease; R53.1 Weakness; Z93.2 Ileostomy status; M48.02 Spinal stenosis, cervical region; E78.5 Hyperlipidemia, unspecified; G95.9 Disease of spinal cord, unspecified; F11.20 Opioid dependence, uncomplicated; G89.4 Chronic pain syndrome; Z95.1 Presence of aortocoronary bypass graft; N18.30 Chronic kidney disease, stage 3 unspecified; Z88.2 Allergy status to sulfonamides; I50.30 Unspecified diastolic (congestive) heart failure; M54.12 Radiculopathy, cervical region; Z79.4 Long term (current) use of insulin

== ENCOUNTER 2022-09-24 02:04 | Inpatient (IN) ==
[2022-09-24 03:28] LABS: Basophils # (auto) 0.06 K/uL (0-0.2); Basophils % (auto) 0.4 %; Eosinophils # (auto) 0.21 K/uL (0-0.50); Eosinophils % (auto) 1.3 %; Hematocrit (blood only) 39.2 % (42.0-52.0); Hemoglobin 12.7 g/dl (14.0-18.0); Immature Granulocytes % (auto) 0.6 %; Lymphocytes # (auto) 1.37 K/uL (1.2-3.4); Lymphocytes % (auto) 8.5 %; Mean Corpuscular Hemoglobin 29.1 pg (25.0-34.0); Mean Corpuscular Hgb Conc 32.4 g/dL (32.0-36.0); Mean Corpuscular Volume 89.7 fL (80.0-100.0); Mean Platelet Volume 8.9 fL (9.4-12.4); Monocytes # (auto) 0.54 K/uL (0.11-0.59); Monocytes % (auto) 3.3 %; Neutrophils # (auto) 13.91 K/uL (1.40-6.50); Neutrophils % (auto) 85.9 %; Platelet Count 264 K/uL (130-400); RDW Coefficient of Variation 16.5 % (11.5-14.5); RDW Standard Deviation 53.8 fL (36.4-46.3); Red Blood Count 4.37 M/uL (4.70-6.10); White Blood Count 16.19 K/ul (4.8-10.8)
[2022-09-24 03:42] LABS: Appearance Urine Turbid (Clear); Bacteria Urine Automated Negative (Negative); Bilirubin Urine Negative (Negative); Blood Urine 2+ (Negative); Color Urine Yellow; Epithelial Cell Urine Auto >30 /lpf (0-5); Glucose Urine UA Negative (Negative); Ketones Urine Negative (Negative); Leukocyte Esterase Urine 2+ (Negative); Nitrite Urine Negative (Negative); Protein Urine 4+ (Negative); Specific Gravity Urine 1.018 (1.000-1.030); Urobilinogen Urine Negative (Negative); WBC Urine Automated >30 /hpf (0-5); pH Urine 5.5 (4.5-7.5)
[2022-09-24 03:49] LABS: Albumin Globulin Ratio 0.8 (0.9-2); Albumin Level 3.3 gm/dl (3.4-5.0); BUN Creatinine Ratio 23.8 (10-20); Bilirubin,Total 0.6 mg/dl (0.2-1.0); Calcium 9.8 mg/dl (8.5-10.1); Creatinine Clr Calc Pharmacy 72.7 ml/min; Est GFR (African American) 57.4 ml/min; Est GFR (Non-African American) 49.5 ml/min; Globulin 4.4 gm/dl (2.5-4.0); Potassium 4.3 mmol/L (3.5-5.1); Total Protein 7.7 gm/dl (6.0-8.3)
[2022-09-24] MEDS ORDERED: SODIUM CHLORIDE 0.9% 1000ML 1,000 ML IV ONE (03:52)
[2022-09-24 04:23] LABS: Cast Urine Automated 0 /lpf (0-5)
[2022-09-24] MEDS ORDERED: OPTIRAY 350 100ml IV ONE (04:44)
[2022-09-24] MEDS ORDERED: VANCOMYCIN HCL 2,500 MG in SODIUM CHLORIDE 0.9% 500 ML IV ONE (06:37)
[2022-09-24] MEDS ORDERED: VANCOMYCIN CONSULT ACTIVE PRN (06:37)
[2022-09-24] MEDS ORDERED: PIPERACILLIN/TAZOBACTAM 3.375 GM in DEXTROSE 5% 100 ML/100 ML BAG IV STA (06:37)
--- NOTE | 2022-09-24 07:38 | Emergency Department Note ---
History of Present Illness General Chief complaint: Testicular Pain Stated complaint: L TESTICAL PAIN Time Seen by Provider: 09/24/22 02:25 Source: patient Mode of arrival: ambulatory Limitations: no limitations History of Present Illness Maximum Pain Intensity: 9 This patient is a 52-year-old male with past medical history of CVA and paraplegia, type 2 diabetes, and recurrent epididymitis/orchitis who presents to the emergency department for evaluation of scrotal swelling. Patient states that this started a few weeks ago, he was initially started on ciprofloxacin by his PCP. He was seen by urology at [facility] in [place] 4 days ago for a ureteral stent removal and was evaluated for this scrotal swelling at that time. They stopped the ciprofloxacin and did a culture and then changed him to Omnicef. He states that the swelling and redness has been getting worse and he has pain in the scrotum rated 9/10. He has not noticed any fevers. Home Medications Medication Instructions Recorded Confirmed Type insulin aspart U-100 100 unit/mL 0 sliding scale dose subcut TIDM 10/08/18 09/24/22 History (3 mL) subcutaneous pen (Novolog per sliding scale FlexPen U-100 Insulin aspart) famotidine 40 mg tablet (Pepcid) 40 mg PO QAM 05/27/19 09/24/22 History allopurinol 300 mg tablet 300 mg PO QAM 01/23/20 09/24/22 History insulin glargine U-300 conc 300 50 unit subcut BID 08/10/21 09/24/22 History unit/mL (1.5 mL) subcutaneous pen (Toujeo SoloStar U-300 Insulin) carvedilol 6.25 mg tablet 6.25 mg PO BID #60 tabs 09/30/21 09/24/22 Rx finerenone 10 mg tablet (Kerendia) 10 mg PO DAILY 12/29/21 09/24/22 History clotrimazole-betamethasone 1 1 applic topical BID PRN affected 02/24/22 09/24/22 History %-0.05 % topical cream area oxycodone 30 mg tablet 15 - 30 mg PO TID PRN pain #20 tabs 04/28/22 09/24/22 Rx ascorbic acid (vitamin C) 500 mg 500 mg PO DAILY 09/24/22 09/24/22 History tablet (Vitamin C) cefdinir 300 mg capsule 300 mg PO BID 09/24/22 09/24/22 History cholecalciferol (vitamin D3) 125 125 mcg PO DAILY 09/24/22 09/24/22 History mcg (5,000 unit) tablet (Vitamin D3) gabapentin 300 mg capsule 300 mg PO BID 09/24/22 09/24/22 History warfarin 2.5 mg tablet See Rx Instructions .Route .COMPLEX 09/24/22 09/24/22 History Allergies Allergy/AdvReac Type Severity Reaction Status Date / Time sulfamethoxazole AdvReac Unknown "Levels Verified 09/24/22 02:35 [From Bactrim] were up"-per [facility] trimethoprim [From Bactrim] AdvReac Unknown "Levels Verified 09/24/22 02:35 were up"-per [facility] Past Med/Surg History Medical History (Updated 09/25/22 @ 23:02 by Serena Pedroza PA-C) Celiac disease Chronic indwelling Velazquez catheter Chronic kidney disease, stage 3a follows with [facility] Coronary artery disease CABG x 1 2012-VG to LAD, multiple stents, follows with [facility] Diastolic congestive heart failure EF 55-59% Difficult airway for intubation 01/18/22 Patient unable to be intubated with Glidescope 4 - good view but unable to pass ETT, Igel #5 easily placed and worked well DM type 2 (diabetes mellitus, type 2) IDDM GI bleed 2018 requiring 3 blood transfusions, transferred to [facility] with work-up not revealing clear cause per records Gout Hepatitis C TREATED Hirschsprung's disease History of blood transfusion 2018 in setting of GI bleed History of COVID-19 05/2021- no symptoms- no hospitalization History of CVA (cerebrovascular accident) 2012-admitted [facility] History of endocarditis TREATED AT [facility]-2012 History of GI bleed History of intravenous drug abuse Hx of pulmonary embolus Hyperlipidemia Morbid obesity Paraplegia Pulmonary emboli 05/2010-unknown cause- admitted and treated at [facility] Pulmonary hypertension Sleep apnea, organic NO DEVICE AT THIS TIME, HIS MACHINE WAS INVOLVED IN RECALL Surgical History (Updated 09/24/22 @ 08:59 by Sanjiv Avendano) H/O aortic root repair 05/2016- [facility] H/O cervical spine surgery for severe stenosis w/ myelopathy; 05/2022 - [facility] H/O mitral valve repair [facility]NS[facility] Hx of CABG 2012 [facility]- DUE TO ENDOCARDITIS, single vessel per records S/P brain surgery 2013- [facility] S/P cardiac cath S/P colostomy FOLLOWS W/ [facility] S/P ileostomy S/P ureteral stent placement 08/2022 - [facility] Family History Father Cardiac disorder Hypertension Prostate cancer Diabetes Coronary heart disease COPD (chronic obstructive pulmonary disease) Pacemaker Mother Hypertension Skin cancer Dementia Social History (Updated 09/24/22 @ 09:00 by Sanjiv Avendano) Smoking Status: Never smoker Tobacco Type: Cigarettes Second Hand Exposure: No; Hx Alcohol Use: No Hx Substance Use: Yes Preferred Language: Lithuanian Communication Ability: Effective Orientation And Mobility Instructor Required: No Beliefs That Will Affect Care: None marital status: Single Current Living Situation: Parent Current Living Situation Comment: Lives with parents and has caregivers to come and help with ADLs current occupational status: employed 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 How many Children do You have: 2 Feels Safe at Home: Yes Assistive Devices: CPAP and Wheelchair Review of Systems A total of 10 systems reviewed and were otherwise negative Physical Exam Vital Signs Vital Signs - 24 hr 09/24/22 02:12 09/24/22 04:43 09/24/22 06:00 Temperature 37.4 C Temperature Source Temporal Artery Scan Pulse Rate 90 Pulse Rate [Finger] 81 81 Pulse Rhythm [Finger] Regular Pulse Strength [Finger] Normal Respiratory Rate 18 20 20 Respiratory Effort / Characteristics Non-Labored Spontaneous Non-Labored Respiratory Depth Normal Normal Respiratory Pattern Regular Blood Pressure 157/79 H Blood Pressure [Right Arm] 160/67 H 154/65 H Blood Pressure Mean 105 Blood Pressure Mean [Right Arm] 98 94 Blood Pressure Position Sitting Pulse Oximetry 94 95 97 Oxygen Delivery Method Room Air Room Air Room Air Sepsis Recent Fever Within 48 Hours No Sepsis New/Unexplained Change in Mental Status N/A Sepsis Action Taken by Nursing No Action Required VITALS: Vitals are noted on the nurse's note and reviewed by myself. GENERAL: This is a 52-year-old male, in no acute distress, sitting up in his wheelchair. MOUTH: Mucous membranes moist. HEART: Regular rate and rhythm without murmurs gallops or rubs. LUNGS: Clear to auscultation bilaterally without wheezes, rales or rhonchi. ABDOMEN: Positive bowel sounds x 4. Soft, nontender to palpation. : Buried penis. Bilateral scrotum are significantly edematous and indurated with areas of fluctuance. NEURO: Patient was alert and oriented to person place and time. Course Consultations Consultation #1: Dr. Manda Cabrera [facility] urology Dr. Holman felt that the patient could be treated at our facility and did not need to be transferred. Consultation #2: Oscar Philippe PA-C, urology Patient was evaluated by Oscar, who recommended admission to medicine. Urology will consult. Consultation #3: Dr. Avendano [facility] hospitalist Administered Medications Allopurinol (Allopurinol 300 Mg Tab) 300 mg PO QAM [facility] Stop: 10/24/22 11:20 Last Admin: 09/25/22 08:56 Dose: 300 mg Documented By: Admin: 09/24/22 12:32 Dose: 300 mg Documented By: IDRIS Ascorbic Acid (Ascorbic Acid 500 Mg Tab) 500 mg PO DAILY CLAUDIA Stop: 10/24/22 11:20 Last Admin: 09/25/22 08:58 Dose: 500 mg Documented By: Admin: 09/24/22 12:32 Dose: 500 mg Documented By: IDRIS Carvedilol (Carvedilol 6.25 Mg Tab) 6.25 mg PO BID CLAUDIA Stop: 10/24/22 11:20 Last Admin: 09/25/22 20:10 Dose: 6.25 mg Documented By: Admin: 09/25/22 08:56 Dose: 6.25 mg Documented By: Admin: 09/24/22 20:08 Dose: 6.25 mg Documented By: Admin: 09/24/22 12:33 Dose: 6.25 mg Documented By: IDRIS Famotidine (Famotidine 40 Mg Tablet) 40 mg PO QAM CLAUDIA Stop: 10/24/22 11:20 Last Admin: 09/25/22 08:57 Dose: 40 mg Documented By: Admin: 09/24/22 12:33 Dose: 40 mg Documented By: IDRIS Gabapentin (Gabapentin 300 Mg Cap) 300 mg PO BID [facility] Stop: 10/24/22 11:20 Last Admin: 09/25/22 20:10 Dose: 300 mg Documented By: Admin: 09/25/22 08:56 Dose: 300 mg Documented By: Admin: 09/24/22 20:08 Dose: 300 mg Documented By: Admin: 09/24/22 12:32 Dose: 300 mg Documented By: IDRIS Hydromorphone HCl (Hydromorphone Inj 0.5 Mg/0.5 Ml Syr) 0.5 mg IV Q6H PRN PRN Reason: Pain Stop: 10/08/22 11:20 Last Admin: 09/25/22 08:52 Dose: 0.5 mg Documented By: IDRIS Caspofungin 50 mg/ Sodium (Chloride) 260 mls @ 260 mls/hr IV DAILY CLAUDIA; Protocol Stop: 10/05/22 08:59 Last Infusion: 09/25/22 11:53 Dose: 0 mls/hr Documented By: Admin: 09/25/22 10:52 Dose: 260 mls/hr Documented By: IDRIS Sodium Chloride (Nss 1000ml) 1,000 mls @ 100 mls/hr IV .Q10H CLAUDIA Stop: 10/24/22 11:20 Last Admin: 09/25/22 16:35 Dose: 100 mls/hr Documented By: Infusion: 09/25/22 16:30 Dose: 100 mls/hr Documented By: Admin: 09/25/22 06:30 Dose: 100 mls/hr Documented By: Infusion: 09/25/22 06:30 Dose: 100 mls/hr Documented By: Admin: 09/24/22 21:51 Dose: 100 mls/hr Documented By: Infusion: 09/24/22 21:49 Dose: 100 mls/hr Documented By: Admin: 09/24/22 11:49 Dose: 100 mls/hr Documented By: IDRIS Piperacillin Sod/Tazobactam (Sod 4.5 gm/ Dextrose) 120 mls @ 30 mls/hr IV Q8H CLAUDIA; Protocol Stop: 10/04/22 13:59 Last Admin: 09/25/22 22:14 Dose: 30 mls/hr Documented By: Infusion: 09/25/22 17:54 Dose: 0 mls/hr Documented By: Admin: 09/25/22 13:51 Dose: 30 mls/hr Documented By: Infusion: 09/25/22 09:57 Dose: 0 mls/hr Documented By: Admin: 09/25/22 05:45 Dose: 30 mls/hr Documented By: Infusion: 09/25/22 01:52 Dose: 0 mls/hr Documented By: Admin: 09/24/22 21:51 Dose: 30 mls/hr Documented By: Infusion: 09/24/22 18:42 Dose: 0 mls/hr Documented By: Admin: 09/24/22 14:15 Dose: 30 mls/hr Documented By: IDRIS Daptomycin 550 mg/ Syringe 11 mls @ 5.5 mls/min IV Q24H CLAUDIA; Protocol Stop: 10/01/22 15:59 Last Admin: 09/25/22 16:35 Dose: 5.5 mls/min Documented By: Admin: 09/24/22 17:40 Dose: 5.5 mls/min Documented By: IDRIS Insulin Aspart (Insulin Aspart Per Unit) 0 units SC ACHS CLAUDIA Stop: 10/24/22 11:29 Last Admin: 09/25/22 20:22 Dose: 4 units Documented By: CIELO Co-signed By: VISHNU Admin: 09/25/22 17:46 Dose: 10 units Documented By: IDRIS Co-signed By: CIELO(2) Admin: 09/25/22 12:32 Dose: 9 units Documented By: IDRIS Co-signed By: CIELO(2) Admin: 09/25/22 09:01 Dose: 11 units Documented By: IDRIS Co-signed By: NOHEMI Admin: 09/24/22 20:12 Dose: 9 units Documented By: CIELO Co-signed By: ANKUR Admin: 09/24/22 17:34 Dose: 10 units Documented By: IDRIS Co-signed By: ALEXIS Admin: 09/24/22 12:42 Dose: 6 units Documented By: IDRIS Co-signed By: TARIQ Insulin Glargine (Lantus Per Unit Charge) 60 units SQ BID CLAUDIA; Protocol Stop: 10/25/22 08:59 Last Admin: 09/25/22 20:22 Dose: 60 units Documented By: CIELO Co-signed By: VISHNU Admin: 09/25/22 09:02 Dose: 60 units Documented By: IDRIS Co-signed By: NOHEMI Lactobacillus Acidophilus (Advanced Probiotic 1250 Mg Capsule) 2 cap PO DAILY CLAUDIA Stop: 10/24/22 11:20 Last Admin: 09/25/22 08:56 Dose: 2 cap Documented By: Admin: 09/24/22 12:33 Dose: 2 cap Documented By: IDRIS Ondansetron HCl (Ondansetron Inj 2 Mg/Ml 2 Ml Vial) 4 mg IV Q6H PRN PRN Reason: Nausea Stop: 10/24/22 11:20 Last Admin: 09/25/22 08:52 Dose: 4 mg Documented By: IDRIS Oxycodone HCl (Oxycodone Hcl Ir 5 Mg Tab (Immediate Release)) 15 mg PO Q6H PRN PRN Reason: Pain Stop: 10/08/22 18:59 Last Admin: 09/25/22 05:45 Dose: 15 mg Documented By: Admin: 09/24/22 20:07 Dose: 15 mg Documented By: CIELO Vitamin D (Cholecalciferol 5,000 Units 125 Mcg Tab) 5,000 units PO DAILY CLAUDIA Stop: 10/24/22 11:20 Last Admin: 09/25/22 08:58 Dose: 5,000 units Documented By: Admin: 09/24/22 12:32 Dose: 5,000 units Documented By: IDRIS Discontinued Medications Bupivacaine HCl (Bupivacaine 0.5 % 5 Mg/1 Ml Mpf 30ml Vial) Confirm Administered Dose 30 ml .ROUTE .STK-MED ONE Stop: 09/24/22 08:53 Last Admin: 09/24/22 10:03 Dose: 20 ml Documented By: [id number] Sodium Chloride (Nss 1000ml) 1,000 mls @ 999 mls/hr IV .Q1H1M ONE Stop: 09/24/22 04:52 Last Infusion: 09/24/22 05:37 Dose: 0 mls/hr Documented By: Admin: 09/24/22 04:34 Dose: 999 mls/hr Documented By: BRODY Vancomycin HCl 2,500 mg/ (Sodium Chloride) 550 mls @ 200 mls/hr IV NOW ONE Stop: 09/24/22 09:21 Last Admin: 09/24/22 08:39 Dose: 200 mls/hr Documented By: JOB Piperacillin Sod/Tazobactam (Sod 3.375 gm/ Dextrose) 100 ml in 115 mls @ 230 mls/hr IV NOW STA Stop: 09/24/22 07:06 Last Infusion: 09/24/22 08:38 Dose: 0 mls/hr Documented By: Admin: 09/24/22 07:44 Dose: 230 mls/hr Documented By: JOB Caspofungin 70 mg/ Sodium (Chloride) 260 mls @ 260 mls/hr IV TODAY@0800 ONE Stop: 09/24/22 08:59 Last Infusion: 09/24/22 13:18 Dose: 0 mls/hr Documented By: Admin: 09/24/22 11:49 Dose: 260 mls/hr Documented By: IDRIS Insulin Glargine (Lantus Per Unit Charge) 50 units SQ BID [facility]; Protocol Stop: 10/24/22 20:59 Last Admin: 09/24/22 20:12 Dose: 50 units Documented By: CIELO Co-signed By: ANKUR Insulin Glargine (Lantus Per Unit Charge) 40 units SQ ONE ONE Stop: 09/24/22 11:46 Last Admin: 09/24/22 12:35 Dose: 40 units Documented By: IDRIS Co-signed By: TARIQ Ioversol (Optiray 350 100ml) 85 ml IV ONCE ONE Stop: 09/24/22 04:45 Last Admin: 09/24/22 04:45 Dose: 85 ml Documented By: OLIVIA Medical Decision Making Differential Diagnosis Differential diagnosis includes abscess, cellulitis, Kaylie's gangrene, epididymitis, orchitis, among others. Home Medications Current Medication List: was personally reviewed by me Laboratory Data Attestation: I reviewed the patient's lab results. 09/24/22 03:15 09/24/22 03:15 Lab Results 09/24/22 09/24/22 09/24/22 Range/Units 03:15 03:15 03:15 WBC 16.19 H (4.8-10.8) K/ul RBC 4.37 L (4.70-6.10) M/uL Hgb 12.7 L (14.0-18.0) g/dl Hct 39.2 L (42.0-52.0) % MCV 89.7 (80.0-100.0) fL MCH 29.1 (25.0-34.0) pg MCHC 32.4 (32.0-36.0) g/dL RDW Std Deviation 53.8 H (36.4-46.3) fL RDW Coeff of Lorenzo 16.5 H (11.5-14.5) % Plt Count 264 (130-400) K/uL MPV 8.9 L (9.4-12.4) fL Immature Gran % (Auto) 0.6 % Neut % (Auto) 85.9 % Lymph % (Auto) 8.5 % [place] % (Auto) 3.3 % Eos % (Auto) 1.3 % Baso % (Auto) 0.4 % Neut # (Auto) 13.91 H (1.40-6.50) K/uL Lymph # (Auto) 1.37 (1.2-3.4) K/uL [place] # (Auto) 0.54 (0.11-0.59) K/uL Eos # (Auto) 0.21 (0-0.50) K/uL Baso # (Auto) 0.06 (0-0.2) K/uL Immature Gran # (Auto) 0.10 (0.01-0.20) K/uL PT (9.0-12.0) Seconds INR (0.9-1.1) Sodium 135 L (136-145) mmol/L Potassium 4.3 (3.5-5.1) mmol/L Chloride 106 (98-107) mmol/L Carbon Dioxide 22 (21-32) mmol/L Anion Gap 7 (3-11) BUN 38 H (6-23) mg/dl Creatinine 1.60 H (0.6-1.4) mg/dl Est Cr Clr Drug Dosing 72.7 ml/min Est GFR ( Amer) 57.4 ml/min Est GFR (Non-Af Amer) 49.5 ml/min BUN/Creatinine Ratio 23.8 H (10-20) Glucose 137 H (70-99(Fasting)) mg/dl Lactate 1.3 (0.4-2.0) mmol/L Calcium 9.8 (8.5-10.1) mg/dl Magnesium (1.7-2.4) mg/dl Total Bilirubin 0.6 (0.2-1.0) mg/dl AST 10 L (13-39) U/L ALT 9 (7-52) U/L Alkaline Phosphatase 130 H (34-104) U/L Total Protein 7.7 (6.0-8.3) gm/dl Albumin 3.3 L (3.4-5.0) gm/dl Globulin 4.4 H (2.5-4.0) gm/dl Albumin/Globulin Ratio 0.8 L (0.9-2) Urine Color Urine Appearance (Clear) Urine pH (4.5-7.5) Ur Specific Buf[place] (1.000-1.030) Urine Protein (Negative) Urine Glucose (UA) (Negative) Urine Ketones (Negative) Urine Blood (Negative) Urine Nitrite (Negative) Urine Bilirubin (Negative) Urine Urobilinogen (Negative) Ur Leukocyte Esterase (Negative) Urine WBC (Auto) (0-5) /hpf Urine RBC (Auto) (0-4) /hpf U Hyaline Cast (Auto) (0-5) /lpf U Epithel Cells (Auto) (0-5) /lpf Urine Bacteria (Auto) (Negative) Urine Yeast (None Prsent) SARS-CoV-2, RNA, NAAT (NEGATIVE) 09/24/22 09/24/22 09/24/22 Range/Units 03:15 03:15 03:25 WBC (4.8-10.8) K/ul RBC (4.70-6.10) M/uL Hgb (14.0-18.0) g/dl Hct (42.0-52.0) % MCV (80.0-100.0) fL MCH (25.0-34.0) pg MCHC (32.0-36.0) g/dL RDW Std Deviation (36.4-46.3) fL RDW Coeff of Lorenzo (11.5-14.5) % Plt Count (130-400) K/uL MPV (9.4-12.4) fL Immature Gran % (Auto) % Neut % (Auto) % Lymph % (Auto) % [place] % (Auto) % Eos % (Auto) % Baso % (Auto) % Neut # (Auto) (1.40-6.50) K/uL Lymph # (Auto) (1.2-3.4) K/uL [place] # (Auto) (0.11-0.59) K/uL Eos # (Auto) (0-0.50) K/uL Baso # (Auto) (0-0.2) K/uL Immature Gran # (Auto) (0.01-0.20) K/uL PT 33.5 H (9.0-12.0) Seconds INR 3.4 H (0.9-1.1) Sodium (136-145) mmol/L Potassium (3.5-5.1) mmol/L Chloride (98-107) mmol/L Carbon Dioxide (21-32) mmol/L Anion Gap (3-11) BUN (6-23) mg/dl Creatinine (0.6-1.4) mg/dl Est Cr Clr Drug Dosing ml/min Est GFR ( Amer) ml/min Est GFR (Non-Af Amer) ml/min BUN/Creatinine Ratio (10-20) Glucose (70-99(Fasting)) mg/dl Lactate (0.4-2.0) mmol/L Calcium (8.5-10.1) mg/dl Magnesium 1.7 (1.7-2.4) mg/dl Total Bilirubin (0.2-1.0) mg/dl AST (13-39) U/L ALT (7-52) U/L Alkaline Phosphatase (34-104) U/L Total Protein (6.0-8.3) gm/dl Albumin (3.4-5.0) gm/dl Globulin (2.5-4.0) gm/dl Albumin/Globulin Ratio (0.9-2) Urine Color Yellow Urine Appearance Turbid A (Clear) Urine pH 5.5 (4.5-7.5) Ur Specific [place] 1.018 (1.000-1.030) Urine Protein 4+ H (Negative) Urine Glucose (UA) Negative (Negative) Urine Ketones Negative (Negative) Urine Blood 2+ H (Negative) Urine Nitrite Negative (Negative) Urine Bilirubin Negative (Negative) Urine Urobilinogen Negative (Negative) Ur Leukocyte Esterase 2+ H (Negative) Urine WBC (Auto) >30 H (0-5) /hpf Urine RBC (Auto) 5-10 H (0-4) /hpf U Hyaline Cast (Auto) 0 (0-5) /lpf U Epithel Cells (Auto) >30 H (0-5) /lpf Urine Bacteria (Auto) Negative (Negative) Urine Yeast Budding A (None Prsent) SARS-CoV-2, RNA, NAAT (NEGATIVE) 09/24/22 Range/Units 07:49 WBC (4.8-10.8) K/ul RBC (4.70-6.10) M/uL Hgb (14.0-18.0) g/dl Hct (42.0-52.0) % MCV (80.0-100.0) fL MCH (25.0-34.0) pg MCHC (32.0-36.0) g/dL RDW Std Deviation (36.4-46.3) fL RDW Coeff of Lorenzo (11.5-14.5) % Plt Count (130-400) K/uL MPV (9.4-12.4) fL Immature Gran % (Auto) % Neut % (Auto) % Lymph % (Auto) % [place] % (Auto) % Eos % (Auto) % Baso % (Auto) % Neut # (Auto) (1.40-6.50) K/uL Lymph # (Auto) (1.2-3.4) K/uL [place] # (Auto) (0.11-0.59) K/uL Eos # (Auto) (0-0.50) K/uL Baso # (Auto) (0-0.2) K/uL Immature Gran # (Auto) (0.01-0.20) K/uL PT (9.0-12.0) Seconds INR (0.9-1.1) Sodium (136-145) mmol/L Potassium (3.5-5.1) mmol/L Chloride (98-107) mmol/L Carbon Dioxide (21-32) mmol/L Anion Gap (3-11) BUN (6-23) mg/dl Creatinine (0.6-1.4) mg/dl Est Cr Clr Drug Dosing ml/min Est GFR ( Amer) ml/min Est GFR (Non-Af Amer) ml/min BUN/Creatinine Ratio (10-20) Glucose (70-99(Fasting)) mg/dl Lactate (0.4-2.0) mmol/L Calcium (8.5-10.1) mg/dl Magnesium (1.7-2.4) mg/dl Total Bilirubin (0.2-1.0) mg/dl AST (13-39) U/L ALT (7-52) U/L Alkaline Phosphatase (34-104) U/L Total Protein (6.0-8.3) gm/dl Albumin (3.4-5.0) gm/dl Globulin (2.5-4.0) gm/dl Albumin/Globulin Ratio (0.9-2) Urine Color Urine Appearance (Clear) Urine pH (4.5-7.5) Ur Specific [place] (1.000-1.030) Urine Protein (Negative) Urine Glucose (UA) (Negative) Urine Ketones (Negative) Urine Blood (Negative) Urine Nitrite (Negative) Urine Bilirubin (Negative) Urine Urobilinogen (Negative) Ur Leukocyte Esterase (Negative) Urine WBC (Auto) (0-5) /hpf Urine RBC (Auto) (0-4) /hpf U Hyaline Cast (Auto) (0-5) /lpf U Epithel Cells (Auto) (0-5) /lpf Urine Bacteria (Auto) (Negative) Urine Yeast (None Prsent) SARS-CoV-2, RNA, NAAT NEGATIVE (NEGATIVE) Imaging Data Attestation: I personally reviewed and interpreted this imaging study as follows: Radiologist's Impression: Pelvis CT 09/24/22 02:46 CT pelvis w/IV con only HISTORY: 52 years-old Male scrotal swelling, redness acute pain and swelling of the scrotum COMPARISON: Scrotal ultrasound of same day, CT abdomen and pelvis 02/17/2021 TECHNIQUE: Multiple axial CT images of the pelvis were obtained following the intravenous administration of 85 mL Optiray. A dose lowering technique was used consistent with the principals of KELLI. FINDINGS: Nonobstructing calculus of the left kidney measure up to 4 mm. No ureteral calculi or hydronephrosis. Decompressed urinary bladder with wall thickening. Subtotal colectomy with right lower quadrant ileostomy. Small bowel and fat f illed parastomal hernia. Diastases recti with an additional small bowel containing ventral midline hernia on image 44 series 3. Soft tissue thickening with calcifications within the presacral/perirectal tissues again noted with decreased amount of soft tissue gas. Borderline enlarged inguinal chain lymph nodes measure up to 11 mm are likely reactive. Multilocular scrotal abscess measures up to approximately 6.4 cm. Possible associated intratesticular abscesses. Atrophy of the proximal thigh mu sculature with extensive atherosclerosis. No acute fracture or suspicious bone lesion. Degenerative changes of the pelvis and lumbar spine. IMPRESSION: 1. Multiloculated scrotal fluid collection suggestive of an abscess measuring up to 6.4 cm with possible intratesticular abscesses. Correlation with same-day scrotal ultrasound recommended. 2. Subtotal colectomy with right lower quadrant ileostomy. 3. Bowel containing parastomal and midline ventral abdominal wall hernias without obstruction. 4. Left nephrolithiasis. 5. Additional findings as above. ACT 112: Negative or not required by law. The above report was generated using voice recognition software. It may contain grammatical, syntax or spelling errors. Electronically signed by: Reilly Conroy M.D. 09/24/2022 9:16 AM Scrotum Ultrasound 09/24/22 06:33 US scrotum/testicle CLINICAL HISTORY: 52 years-old Male with scrotal abscess. Acute pain and swelling of the scrotum COMPARISON STUDY: CT of same day TECHNIQUE: Real-time, grayscale, and color Doppler sonography of the testes and scrotum is performed. Images are reviewed in the transverse and longitudinal planes. FINDINGS: RIGHT HEMISCROTUM: The right testis measures 4.1 x 2.5 x 3.4 cm. Heterogeneous irregular area of decreased echogenicity is noted either within or adjacent to the inferior right testicle measuring 2.1 x 2.1 x 2.2 cm with color flow. Normal-appearing arterial inflow is present within the right testicle. The right epididymal head appears normal. No varicocele or hydrocele is identified. LEFT HEMISCROTUM: The left testis measures 3.7 x 2.7 x 3.5 cm heterogeneous irregular decreased echogenicity is noted either within or adjacent to the inferior left testicle measuring 1.6 x 1.6 x 1.8 cm with color flow. Normal- appearing arterial inflow is present within the left testicle. The left epididymal head appears normal. No varicocele or hydrocele is identified. There is extensive subcutaneous edema with multiloculated complex fluid collection of the scrotum measuring up to approximately 6.4 x 5.0 x 3.3 cm demonstrating peripheral color flow. IMPRESSION: 1. Extensive scrotal wall edema with complex multiloculated scrotal fluid collection measuring up to 6.4 cm suggestive of abscess. 2. Heterogeneous foci either within or adjacent to the inferior testicles may also be on an infectious basis. One month follow-up testicular ultrasound recommended to exclude the less likely possibility of testicular malignancy. ACT 112: Negative or not required by law. The above report was generated using voice recognition software. It may contain grammatical, syntax or spelling errors. Electronically signed by: Reilly Conroy M.D. 09/24/2022 8:01 AM MDM Narrative This patient is a 52-year-old male who presents to the emergency department for evaluation of scrotal pain and swelling. Outside [facility] records were reviewe d - patient had a recent urology visit and this note states he has chronic/recurrent orchitis. Due to his worsening symptoms, the above workup was performed. Labs were reviewed and showed a leukocytosis of 16,000. CT was performed and showed a scrotal abscess with possible intratesticular abscess as well. Ultrasound was ordered. Patient given Zosyn and Vancomycin. Urology was consulted and will consult on the patient, [facility] Impression & Plan Abscess of scrotum Discharge Plan Visit Data Chief Complaint: Testicular Pain Stated Complaint: L TESTICAL PAIN ED Provider: Rhonda Leigh ED Midlevel Provider: Serena Pedroza Discharge Problem: Abscess of scrotum Patient Disposition: Admitted As Inpatient Discharge Instructions Interventions: ED Discharge Assessment Last Done: 09/24/22 08:48
--- NOTE | 2022-09-24 07:50 | History & Physical Report ---
Date of Service September 24, 2022 Assessment & Plan (1) Scrotal abscess: Plan: Appreciate [facility] consultation and assistance. To the OR with Dr Richardson for I/D. Was given zosyn with vancomycin in ER to cover the abscess as well as urinary tract. Continue these. Will add caspofungin as patient has prior h/o edith glabrata UTIs. Follow blood and urine cultures. IVF, pain control, scrotal support. (2) Catheter-associated urinary tract infection: Plan: Urine suggestive of UTI. Just had pike catheter earlier this week s/p cystoscopy with ureteral stent retrieval. Catheter then removed as outpatient this past Monday. Zosyn, vancomycin, and caspofungin while awaiting cultures. Narrow when able. Mr Grajeda was able to bring up his [facility] Patient Portal and earlier this w hopi following his cystoscopy he had an e.coli UTI - sensitivities not available. Await repeat culture here. (3) JUAREZ (acute kidney injury): Plan: 2nd to #1, #2. NS hydration; repeat BMP am. (4) Type 2 diabetes mellitus, uncontrolled: Plan: Toujeo will be converted to lantus. Novolog supplemental scale - correction factor 15, carb ratio 1:5. Adjust as needed. Repeat HbA1C in am. (5) Celiac disease: Plan: past history of such gluten-free diet (6) Diastolic congestive heart failure: Plan: history of such he is not on standing diuretics at home he appears volume contracted at this time - thus, continue IV fluids (7) Hirschsprung's disease: Plan: s/p subtotal colectomy with ileostomy creation (8) Pulmonary emboli: Plan: history of such; on chronic coumadin therapy. INR >3 today; hold coumadin. repeat INR am. 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 (10) Benign essential hypertension: Plan: cont coreg BID (11) Coronary artery disease: Plan: cont coreg uncertain why he is not on asa or statin therapy no ischemic symptoms at this time (12) History of stroke: Plan: continue chronic coumadin (13) Morbid obesity: Plan: BMI 42 (14) History of endocarditis: Plan: noted s/p mitral valve repair s/p aortic root repair follow blood cultures while here (15) S/P ileostomy: Plan: no issues at this time (16) Chronic pain syndrome: Plan: continue oxycodone prn PDMP shows every 30 day refills on oxycodone 30mg tablets Plan care d/w Dr Richardson History of Present Illness Chief Complaint: scrotal pain & swelling Primary Care Provider: Demarcus Nicholson, DO 52yo male - well known to the hospitalist service - with h/o Hirschsprung's disease with chronic ileostomy, T2DM, CAD s/p CABG and stents, past h/o Hepatitis C, acquired paraplegia, ANIBAL, chronic diastolic CHF, pulmonary emboli / DVT on chronic coumadin, CVA, HTN, endocarditis, recurrent UTIs, past h/o IV drug abuse, and cervical spine stenosis s/p c-spine surgery at [facility] in May 2018. Patient recently underwent surgery at [facility] about 2 weeks ago for left-sided kidney stones with ureteral stent placement. He went back to [facility] this past Monday, 09/19, for stent retrieval. Urine cx was sent from that visit and grew e.coli, sensitivities unknown, but he was called in a prescription for cefdinir on 09/21 for such. He states the scrotum was swollen on Monday at his [facility] visit but not to the degree it is now. Over the last few days the scrotal swelling has worsened and now it is very painful to touch. He has had no fevers, chills, or lack of appetite. He was sent home on Monday with a pike catheter, but it was removed on Thursday 09/21 by his home health nurse. He has been able to spontaneously void without difficulty and denies dysuria and denies foul-smelling urine. BSGs over the last few days have been very high with some readings 400+. He gave himself 80 units of novolog at home last pm for meal coverage and still his BSGs have been running high. In addition to the above, he reports he has a kidney cyst and is scheduled to have biopsy of such later this month in [place]. Dr Bernardo Richardson from [facility] saw patient in consult and will take Mr Grajeda to the OR today for I/D of the scrotal abscess that was confirmed on scrotal u/s. Patient reports compliance with his BIPAP and his son can bring it to the hospital for use here. Allergies Allergy/AdvReac Type Severity Reaction Status Date / Time sulfamethoxazole AdvReac Unknown "Levels Verified 09/24/22 02:35 [From Bactrim] were up"-per [facility] trimethoprim [From Bactrim] AdvReac Unknown "Levels Verified 09/24/22 02:35 were up"-per [facility] Home Medications Medication Instructions Recorded Confirmed Type insulin aspart U-100 100 unit/mL 0 sliding scale dose subcut TIDM 10/08/18 09/24/22 History (3 mL) subcutaneous pen (Novolog per sliding scale FlexPen U-100 Insulin aspart) famotidine 40 mg tablet (Pepcid) 40 mg PO QAM 05/27/19 09/24/22 History allopurinol 300 mg tablet 300 mg PO QAM 01/23/20 09/24/22 History insulin glargine U-300 conc 300 50 unit subcut BID 08/10/21 09/24/22 History unit/mL (1.5 mL) subcutaneous pen (Toujeo SoloStar U-300 Insulin) carvedilol 6.25 mg tablet 6.25 mg PO BID #60 tabs 09/30/21 09/24/22 Rx finerenone 10 mg tablet (Kerendia) 10 mg PO DAILY 12/29/21 09/24/22 History clotrimazole-betamethasone 1 1 applic topical BID PRN affected 02/24/22 09/24/22 History %-0.05 % topical cream area oxycodone 30 mg tablet 15 - 30 mg PO TID PRN pain #20 tabs 04/28/22 09/24/22 Rx ascorbic acid (vitamin C) 500 mg 500 mg PO DAILY 09/24/22 09/24/22 History tablet (Vitamin C) cefdinir 300 mg capsule 300 mg PO BID 09/24/22 09/24/22 History cholecalciferol (vitamin D3) 125 125 mcg PO DAILY 09/24/22 09/24/22 History mcg (5,000 unit) tablet (Vitamin D3) gabapentin 300 mg capsule 300 mg PO BID 09/24/22 09/24/22 History warfarin 2.5 mg tablet See Rx Instructions .Route .COMPLEX 09/24/22 09/24/22 History Past Med/Surg History Medical History (Updated 09/25/22 @ 01:09 by Sanjiv Avendano) Celiac disease Chronic indwelling Pike catheter Chronic kidney disease, stage 3a follows with [facility] Coronary artery disease CABG x 1 2012-VG to LAD, multiple stents, follows with [facility] Diastolic congestive heart failure EF 55-59% Difficult airway for intubation 01/18/22 Patient unable to be intubated with Glidescope 4 - good view but unable to pass ETT, Igel #5 easily placed and worked well DM type 2 (diabetes mellitus, type 2) IDDM GI bleed 2018 requiring 3 blood transfusions, transferred to [facility] with work-up not revealing clear cause per records Gout Hepatitis C TREATED Hirschsprung's disease History of blood transfusion 2018 in setting of GI bleed History of COVID-19 05/2021- no symptoms- no hospitalization History of CVA (cerebrovascular accident) 2012-admitted [facility] History of endocarditis TREATED AT [facility]-2012 History of GI bleed History of intravenous drug abuse Hx of pulmonary embolus Hyperlipidemia Morbid obesity Paraplegia Pulmonary emboli 05/2010-unknown cause- admitted and treated at [facility] Pulmonary hypertension Sleep apnea, organic NO DEVICE AT THIS TIME, HIS MACHINE WAS INVOLVED IN RECALL Surgical History (Updated 09/24/22 @ 08:59 by Sanjiv Avendano) H/O aortic root repair 05/2016- [facility] H/O cervical spine surgery for severe stenosis w/ myelopathy; 05/2022 - [facility] H/O mitral valve repair UNSURE-EITHER [facility] OR [facility] Hx of CABG 2012 [facility] PRES- DUE TO ENDOCARDITIS, single vessel per records S/P brain surgery 2013- [facility] S/P cardiac cath S/P colostomy FOLLOWS W/ [facility] S/P ileostomy S/P ureteral stent placement 08/2022 - [facility] Family History Father Cardiac disorder Hypertension Prostate cancer Diabetes Coronary heart disease COPD (chronic obstructive pulmonary disease) Pacemaker Mother Hypertension Skin cancer Dementia Social History (Updated 09/24/22 @ 09:00 by Sanjiv Avendano) Smoking Status: Never smoker Tobacco Type: Cigarettes Second Hand Exposure: No; Hx Alcohol Use: No Hx Substance Use: Yes Preferred Language: Tristanian Communication Ability: Effective 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 Required: No Beliefs That Will Affect Care: None marital status: Single Current Living Situation: Parent Current Living Situation Comment: Lives with parents and has caregivers to come and help with ADLs current occupational status: employed 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 How many Children do You have: 2 Feels Safe at Home: Yes Assistive Devices: CPAP and Wheelchair Review of Systems Review of Systems: gen - no fevers; appetite wnl eyes - no visual changes HENT - no sore throat, runny nose, or congestion CV - no chest pain pulm - no cough, no dyspnea GI - no nausea or emesis; ostomy with normal stool output; no blood per ostomy - severe scrotal pain & swelling, worse on left; mild dysuria since pike catheter removal musculo - denies joint pains; b/l arm weakness improved since his neck surgery earlier this fall skin - erythema scrotum; decubitus ulcer buttock region/perineal region? neuro - paraplegia; no headaches endo - uncontrolled blood sugars, 400-500 range at times this week Physical Exam Physical Exam: gen - obese, NAD, nontoxic eyes - PERRL HENT - b/l TMs not seen well due to cerumen; MMM; no lesions neck - no JVD heart - RRR, s1 s2, no murmur lungs - CTA b/l abd - distended but nontender, BS+, ostomy with liquid stool in bag - severe scrotal swelling L>R, erythema, tenderness extremities - <1+ edema b/l, pulses 2+ b/l neuro - paraplegia of legs, strength near-normal upper extremities skin - no generalized rash psych - a/o x 3 Results & Data Results & Data ([facility]) Vital Signs (Past 12 Hours) Vital Signs Temp Pulse Pulse Resp BP BP Pulse Ox 09/24/22 06:00 81 20 154/65 H 97 09/24/22 04:43 81 20 160/67 H 95 09/24/22 02:12 37.4 C 90 18 157/79 H 94 O2 Del Method 09/24/22 06:00 Room Air 09/24/22 04:43 Room Air 09/24/22 02:12 Room Air Laboratory Results Laboratory Results - last 24 hr 09/24/22 09/24/22 09/24/22 03:15 03:15 03:15 WBC 16.19 H RBC 4.37 L Hgb 12.7 L Hct 39.2 L MCV 89.7 MCH 29.1 MCHC 32.4 RDW Std Deviation 53.8 H RDW Coeff of Lorenzo 16.5 H Plt Count 264 MPV 8.9 L Immature Gran % (Auto) 0.6 Neut % (Auto) 85.9 Lymph % (Auto) 8.5 [place] % (Auto) 3.3 Eos % (Auto) 1.3 Baso % (Auto) 0.4 Neut # (Auto) 13.91 H Lymph # (Auto) 1.37 [place] # (Auto) 0.54 Eos # (Auto) 0.21 Baso # (Auto) 0.06 Immature Gran # (Auto) 0.10 PT INR Sodium 135 L Potassium 4.3 Chloride 106 Carbon Dioxide 22 Anion Gap 7 BUN 38 H Creatinine 1.60 H Est Cr Clr Drug Dosing 72.7 Est GFR ( Amer) 57.4 Est GFR (Non-Af Amer) 49.5 BUN/Creatinine Ratio 23.8 H Glucose 137 H POC Glucose Lactate 1.3 Calcium 9.8 Magnesium Total Bilirubin 0.6 AST 10 L ALT 9 Alkaline Phosphatase 130 H Total Protein 7.7 Albumin 3.3 L Globulin 4.4 H Albumin/Globulin Ratio 0.8 L Urine Color Urine Appearance Urine pH Ur Specific [place] Urine Protein Urine Glucose (UA) Urine Ketones Urine Blood Urine Nitrite Urine Bilirubin Urine Urobilinogen Ur Leukocyte Esterase Urine WBC (Auto) Urine RBC (Auto) U Hyaline Cast (Auto) U Epithel Cells (Auto) Urine Bacteria (Auto) Urine Yeast SARS-CoV-2, RNA, NAAT 09/24/22 09/24/22 09/24/22 03:15 03:15 03:25 WBC RBC Hgb Hct MCV MCH MCHC RDW Std Deviation RDW Coeff of Lorenzo Plt Count MPV Immature Gran % (Auto) Neut % (Auto) Lymph % (Auto) [place] % (Auto) Eos % (Auto) Baso % (Auto) Neut # (Auto) Lymph # (Auto) [place] # (Auto) Eos # (Auto) Baso # (Auto) Immature Gran # (Auto) PT 33.5 H INR 3.4 H Sodium Potassium Chloride Carbon Dioxide Anion Gap BUN Creatinine Est Cr Clr Drug Dosing Est GFR ( Amer) Est GFR (Non-Af Amer) BUN/Creatinine Ratio Glucose POC Glucose Lactate Calcium Magnesium 1.7 Total Bilirubin AST ALT Alkaline Phosphatase Total Protein Albumin Globulin Albumin/Globulin Ratio Urine Color Yellow Urine Appearance Turbid A Urine pH 5.5 Ur Specific [place] 1.018 Urine Protein 4+ H Urine Glucose (UA) Negative Urine Ketones Negative Urine Blood 2+ H Urine Nitrite Negative Urine Bilirubin Negative Urine Urobilinogen Negative Ur Leukocyte Esterase 2+ H Urine WBC (Auto) >30 H Urine RBC (Auto) 5-10 H U Hyaline Cast (Auto) 0 U Epithel Cells (Auto) >30 H Urine Bacteria (Auto) Negative Urine Yeast Budding A SARS-CoV-2, RNA, NAAT 09/24/22 09/24/22 09/24/22 07:49 10:50 11:21 WBC RBC Hgb Hct MCV MCH MCHC RDW Std Deviation RDW Coeff of Lorenzo Plt Count MPV Immature Gran % (Auto) Neut % (Auto) Lymph % (Auto) [place] % (Auto) Eos % (Auto) Baso % (Auto) Neut # (Auto) Lymph # (Auto) [place] # (Auto) Eos # (Auto) Baso # (Auto) Immature Gran # (Auto) PT INR Sodium Potassium Chloride Carbon Dioxide Anion Gap BUN Creatinine Est Cr Clr Drug Dosing Est GFR ( Amer) Est GFR (Non-Af Amer) BUN/Creatinine Ratio Glucose POC Glucose 217 H 238 H Lactate Calcium Magnesium Total Bilirubin AST ALT Alkaline Phosphatase Total Protein Albumin Globulin Albumin/Globulin Ratio Urine Color Urine Appearance Urine pH Ur Specific [place] Urine Protein Urine Glucose (UA) Urine Ketones Urine Blood Urine Nitrite Urine Bilirubin Urine Urobilinogen Ur Leukocyte Esterase Urine WBC (Auto) Urine RBC (Auto) U Hyaline Cast (Auto) U Epithel Cells (Auto) Urine Bacteria (Auto) Urine Yeast SARS-CoV-2, RNA, NAAT NEGATIVE 09/24/22 09/24/22 16:19 20:00 WBC RBC Hgb Hct MCV MCH MCHC RDW Std Deviation RDW Coeff of Lorenzo Plt Count MPV Immature Gran % (Auto) Neut % (Auto) Lymph % (Auto) [place] % (Auto) Eos % (Auto) Baso % (Auto) Neut # (Auto) Lymph # (Auto) [place] # (Auto) Eos # (Auto) Baso # (Auto) Immature Gran # (Auto) PT INR Sodium Potassium Chloride Carbon Dioxide Anion Gap BUN Creatinine Est Cr Clr Drug Dosing Est GFR ( Amer) Est GFR (Non-Af Amer) BUN/Creatinine Ratio Glucose POC Glucose 188 H 291 H Lactate Calcium Magnesium Total Bilirubin AST ALT Alkaline Phosphatase Total Protein Albumin Globulin Albumin/Globulin Ratio Urine Color Urine Appearance Urine pH Ur Specific [place] Urine Protein Urine Glucose (UA) Urine Ketones Urine Blood Urine Nitrite Urine Bilirubin Urine Urobilinogen Ur Leukocyte Esterase Urine WBC (Auto) Urine RBC (Auto) U Hyaline Cast (Auto) U Epithel Cells (Auto) Urine Bacteria (Auto) Urine Yeast SARS-CoV-2, RNA, NAAT Diagnostic Findings Pelvis CT 09/24/22 02:46 CT pelvis w/IV con only HISTORY: 52 years-old Male scrotal swelling, redness acute pain and swelling of the scrotum COMPARISON: Scrotal ultrasound of same day, CT abdomen and pelvis 02/17/2021 TECHNIQUE: Multiple axial CT images of the pelvis were obtained following the intravenous administration of 85 mL Optiray. A dose lowering technique was used consistent with the principals of KELLI. FINDINGS: Nonobstructing calculus of the left kidney measure up to 4 mm. No ureteral calculi or hydronephrosis. Decompressed urinary bladder with wall thickening. Subtotal colectomy with right lower quadrant ileostomy. Small bowel and fat filled parastomal hernia. Diastases recti with an additional small bowel containing ventral midline hernia on image 44 series 3. Soft tissue thickening with calcifications within the presacral/perirectal tissues again noted with decreased amount of soft tissue gas. Borderline enlarged inguinal chain lymph nodes measure up to 11 mm are likely reactive. Multilocular scrotal abscess measures up to approximately 6.4 cm. Possible associated intratesticular abscesses. Atrophy of the proximal thigh musculature with extensive atherosclerosis. No acute fracture or suspicious bone lesion. Degenerative changes of the pelvis and lumbar spine. IMPRESSION: 1. Multiloculated scrotal fluid collection suggestive of an abscess measuring up to 6.4 cm with possible intratesticular abscesses. Correlation with same-day scrotal ultrasound recommended. 2. Subtotal colectomy with right lower quadrant ileostomy. 3. Bowel containing parastomal and midline ventral abdominal wall hernias without obstruction. 4. Left nephrolithiasis. 5. Additional findings as above. ACT 112: Negative or not required by law. The above report was generated using voice recognition software. It may contain grammatical, syntax or spelling errors. Electronically signed by: Reilly Conroy M.D. 09/24/2022 9:16 AM Scrotum Ultrasound 09/24/22 06:33 US scrotum/testicle CLINICAL HISTORY: 52 years-old Male with scrotal abscess. Acute pain and swelling of the scrotum COMPARISON STUDY: CT of same day TECHNIQUE: Real-time, grayscale, and color Doppler sonography of the testes and scrotum is performed. Images are reviewed in the transverse and longitudinal planes. FINDINGS: RIGHT HEMISCROTUM: The right testis measures 4.1 x 2.5 x 3.4 cm. Heterogeneous irregular area of decreased echogenicity is noted either within or adjacent to the inferior right testicle measuring 2.1 x 2.1 x 2.2 cm with color flow. Normal-appearing arterial inflow is present within the right testicle. The right epididymal head appears normal. No varicocele or hydrocele is identified. LEFT HEMISCROTUM: The left testis measures 3.7 x 2.7 x 3.5 cm heterogeneous irregular decreased echogenicity is noted either within or adjacent to the inferior left testicle measuring 1.6 x 1.6 x 1.8 cm with color flow. Normal- appearing arterial inflow is present within the left testicle. The left epididymal head appears normal. No varicocele or hydrocele is identified. There is extensive subcutaneous edema with multiloculated complex fluid collection of the scrotum measuring up to approximately 6.4 x 5.0 x 3.3 cm demonstrating peripheral color flow. IMPRESSION: 1. Extensive scrotal wall edema with complex multiloculated scrotal fluid collection measuring up to 6.4 cm suggestive of abscess. 2. Heterogeneous foci either within or adjacent to the inferior testicles may also be on an infectious basis. One month follow-up testicular ultrasound recommended to exclude the less likely possibility of testicular malignancy. ACT 112: Negative or not required by law. The above report was generated using voice recognition software. It may contain grammatical, syntax or spelling errors. Electronically signed by: Reilly Conroy M.D. 09/24/2022 8:01 AM Code Status & VTE Plan Code Status full code PG Care Time/CCT Total # of Minutes Spent Total Time Spent with Patient: Total time spent is greater than 50% in coordination of care (as documented) at patient's floor/unit and/or counseling patient: Coding Level of Care Code 30583 INT INP/OBS CARE MIN Diagnoses Scrotal abscess N49.2 Catheter-associated urinary tract infection T83.511A; N39.0 JUAREZ (acute kidney injury) N17.9 Type 2 diabetes mellitus, uncontrolled E11.65 Celiac disease K90.0 Diastolic congestive heart failure I50.30 Hirschsprung's disease Q43.1 Pulmonary emboli I26.99 Paraplegia G82.20 Benign essential hypertension I10 Coronary artery disease I25.10 Associated angina: without angina Coronary Disease-Associated Artery/Lesion type: [place] artery [place] vs. transplanted heart: [place] heart History of stroke Z86.73 Morbid obesity E66.01 History of endocarditis Z86.79 S/P ileostomy Z93.2 Chronic pain syndrome G89.4 (1) Coronary artery disease Associated angina: without angina Coronary Disease-Associated Artery/Lesion type: [place] artery [place] vs. transplanted heart: [place] heart Qualified Code(s): I25.10 - Atherosclerotic heart disease of [place] coronary artery without angina pectoris
--- NOTE | 2022-09-24 07:52 | Urology Consultation ---
Date of Consultation September 24, 2022 Assessment & Plan (1) Scrotal abscess: I discussed with the treating emergency room clinician. They are having the patient admitted on the hospitalist service. We recommend proceeding as follows: Placed the patient on broad-spectrum antibiotics. They have thus far in itiated Zosyn and vancomycin. Blood and urine cultures have been obtained. These culture results to be followed and antibiotics can be tailored based on results. Recommended hydration measures with IV fluids be employed Follow serial labs The patient is noted to be diabetic and recommend obtaining tight glucose control to promote healing Follow-up on results of scrotal ultrasound I suspect the patient will require incision and drainage of his scrotal abscess. Dr. Richardson, urology attending will see and evaluate the patient and determine the best approach to perform this procedure. As noted in the HPI the patient has recently had oral intake in the form of a bag of potato chips which would preclude him going to the operating room immediately. Dr. Richardson will determine if a bedside incision and drainage can be accomplished. Supervising Physician Co-Signing Physician Notes Discussed patient with MICHELL. Agree with plan. Physical exam reveals fluctuant area on anterior scrotal surface. Patient needs incision and drainage. Patient ate his own bag chips several hours ago and is not safe from an anesthetic perspective so we will do this in the OR for positioning and equipment purposes under local anesthesia. Risks and benefits discussed. Consent obtained. History of Present Illness Reason for Consultation: Scrotal abscess History of Present Illness This is a 52-year-old male who presented to [facility] emergency department secondary to scrotal pain. The patient notes that this pain started a few weeks ago and he was initially started on ciprofloxacin by his primary care physician. Patient says that he does have established care with [facility] urology in [place], [place]. He says that he was seeing his urologist earlier this week approximately 4 days ago to address a ureteral stent that was in place. He alerted his urologist of this problem and a urine culture was obtained and patient's ciprofloxacin was discontinued and he was pl aced on Omnicef. Despite having his antibiotics changed patient notes that he has been having worsening erythema and pain of his scrotum. He denies any fevers, shakes, or chills. He denies any abdominal pain. He denies any nausea or vomiting. He denies any dysuria or inability to urinate. He does report that he has had epididymitis/orchitis in the past. The patient notes that he ate a bag of potato chips approximately 1/2-hour ago. Since arrival to the emergency department the patient has had labs and imaging which I independent reviewed. A CBC revealed white blood cell count was 16.1. Hemoglobin and hematocrit are 12.7 and 39.2. Platelet count was normal. Chemistry profile showed sodium was 135 with a normal potassium. His BUN and creatinine are 30 and 1.6. (Review of records show that this level of creatinine is elevated from his baseline which usually runs from 1.0-1.2) a urinalysis was performed that was negative for nitrites but positive for leukocyte Estrace. There is also greater than 30 white blood cells per high- power field. Budding yeast was noted and there is no bacteria on the study. The patient has had a CT scan of his pelvis that showed patient had a multiloculated abscess of the left scrotum which measured approximately 5.3 x 4.5 x 6.4 cm. There is noted to be a possible intratesticular abscess on the right side with some scrotal wall thickening. A scrotal ultrasound was ordered and is pending. At the time of my interview the patient was resting comfortably in bed he was in no distress. Allergies Allergy/AdvReac Type Severity Reaction Status Date / Time sulfamethoxazole AdvReac Unknown "Levels Verified 09/24/22 02:35 [From Bactrim] were up"-[facility] trimethoprim [From Bactrim] AdvReac Unknown "Levels Verified 09/24/22 02:35 were up"-per [facility] Home Medications Medication Instructions Recorded Confirmed Type insulin aspart U-100 100 unit/mL 0 sliding scale dose subcut TIDM 10/08/18 09/24/22 History (3 mL) subcutaneous pen (Novolog per sliding scale FlexPen U-100 Insulin aspart) famotidine 40 mg tablet (Pepcid) 40 mg PO QAM 05/27/19 09/24/22 History allopurinol 300 mg tablet 300 mg PO QAM 01/23/20 09/24/22 History insulin glargine U-300 conc 300 50 unit subcut BID 08/10/21 09/24/22 History unit/mL (1.5 mL) subcutaneous pen (Toujeo SoloStar U-300 Insulin) carvedilol 6.25 mg tablet 6.25 mg PO BID #60 tabs 09/30/21 09/24/22 Rx finerenone 10 mg tablet (Kerendia) 10 mg PO DAILY 12/29/21 09/24/22 History clotrimazole-betamethasone 1 1 applic topical BID PRN affected 02/24/22 09/24/22 History %-0.05 % topical cream area oxycodone 30 mg tablet 15 - 30 mg PO TID PRN pain #20 tabs 04/28/22 09/24/22 Rx ascorbic acid (vitamin C) 500 mg 500 mg PO DAILY 09/24/22 09/24/22 History tablet (Vitamin C) cefdinir 300 mg capsule 300 mg PO BID 09/24/22 09/24/22 History cholecalciferol (vitamin D3) 125 125 mcg PO DAILY 09/24/22 09/24/22 History mcg (5,000 unit) tablet (Vitamin D3) gabapentin 300 mg capsule 300 mg PO BID 09/24/22 09/24/22 History warfarin 2.5 mg tablet See Rx Instructions .Route .COMPLEX 09/24/22 09/24/22 History Patient History Medical History (Updated 09/24/22 @ 09:03 by Sanjiv Avenadno) Celiac disease Chronic indwelling Velazquez catheter Chronic kidney disease, stage 3a follows with [facility] Coronary artery disease CABG x 1 2012-VG to LAD, multiple stents, follows with [facility] Diastolic congestive heart failure EF 55-59% Difficult airway for intubation 01/18/22 Patient unable to be intubated with Glidescope 4 - good view but unable to pass ETT, Igel #5 easily placed and worked well DM type 2 (diabetes mellitus, type 2) IDDM GI bleed 2018 requiring 3 blood transfusions, transferred to [facility] with work-up not revealing clear cause per records Gout Hepatitis C TREATED Hirschsprung's disease History of blood transfusion 2018 in setting of GI bleed History of COVID-19 05/2021- no symptoms- no hospitalization History of CVA (cerebrovascular accident) 2012-admitted [facility] History of endocarditis TREATED AT [facility] PRESBY-2012 History of GI bleed History of intravenous drug abuse Hx of pulmonary embolus Hyperlipidemia Morbid obesity Paraplegia Pulmonary emboli 05/2010-unknown cause- admitted and treated at [facility] Pulmonary hypertension Sleep apnea, organic NO DEVICE AT THIS TIME, HIS MACHINE WAS INVOLVED IN RECALL Surgical History (Updated 09/24/22 @ 08:59 by Sanjiv Avendano) H/O aortic root repair 05/2016- [facility] H/O cervical spine surgery for severe stenosis w/ myelopathy; 05/2022 - [facility] H/O mitral valve repair UNSURE-EITHER [facility] OR [facility] Hx of CABG [address] [facility] PRES- DUE TO ENDOCARDITIS, single vessel per records S/P brain surgery 2013- [facility] S/P cardiac cath S/P colostomy FOLLOWS W/ [facility] S/P ileostomy S/P ureteral stent placement 08/2022 - [facility] Family History Father Cardiac disorder Hypertension Prostate cancer Diabetes Coronary heart disease COPD (chronic obstructive pulmonary disease) Pacemaker Mother Hypertension Skin cancer Dementia Social History (Updated 09/24/22 @ 09:00 by Sanjiv Avendano) Tobacco Type: Cigarettes Second Hand Exposure: No; Hx Alcohol Use: No Hx Substance Use: Yes Preferred Language: Citizen Of [place] Communication Ability: Effective Audit Practice Intern Required: No Beliefs That Will Affect Care: None marital status: Single Current Living Situation: Parent Current Living Situation Comment: Lives with parents and has caregivers to come and help with ADLs current occupational status: employed 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 How many Children do You have: 2 Feels Safe at Home: Yes Assistive Devices: Hospital Bed, Mechanical Lift and Wheelchair Review of Systems Constitutional: no fever and no chills Eyes: no eye pain Ear, Nose, Mouth, Throat: no ear pain Respiratory: no cough and no dyspnea Cardiovascular: no chest pain Gastrointestinal: no abdominal pain, no nausea and no vomiting Genitourinary: + as per Subjective / HPI Musculoskeletal: no back pain Integumentary: no rash Neurologic: no localized weakness Physical Exam Constitutional: WD/WN, vitals as above Eyes: no conjunctival abnormality ENMT: Ears: no hearing impairment Mouth: no oropharynx abnormality Neck: trachea midline Respiratory: normal respiratory effort; no respiratory distress and no labored breathing Gastrointestinal (Abdomen): Abdomen is soft, nonrigid, nondistended. The patient did have a ostomy noted on the right side of his abdomen. There is no pain with palpation. Musculoskeletal: No calf tenderness Skin: no rashes Neurologic: moves all extremities Psychiatric: A+Ox3, euthymic affect Genitourinary: The patient's genitals were examined. In the perineum there were no areas of erythema, eschar, crepitus, or drainage. The patient's scrotum is erythematous with the left being worse than the right. The left hemiscrotum appears to be more fluctuant than the right. There is a small abrasion on the left scrotum but there is no purulent drainage noted. The area is tender to palpation. Results & Data ([facility]) Vital Signs (Past 12 Hours) Vital Signs Temp Pulse Pulse Resp BP BP Pulse Ox 09/24/22 06:00 81 20 154/65 H 97 09/24/22 04:43 81 20 160/67 H 95 09/24/22 02:12 37.4 C 90 18 157/79 H 94 O2 Del Method 09/24/22 06:00 Room Air 09/24/22 04:43 Room Air 09/24/22 02:12 Room Air PG Care Time/CCT Total # of Minutes Spent Total Time Spent with Patient: Total time spent is greater than 50% in coordination of care (as documented) at patient's floor/unit and/or counseling patient: Coding Level of Care Code INP/OBS CONSULT LVL 5, 80 MIN Diagnoses Scrotal abscess N49.2
[2022-09-24] MEDS ORDERED: CASPOFUNGIN 70 MG in SODIUM CHLORIDE 0.9% 250 ML IV ONE (08:00)
--- NOTE | 2022-09-24 08:03 | Ultrasound Report ---
US scrotum/testicle CLINICAL HISTORY: 52 years-old Male with scrotal abscess. Acute pain and swelling of the scrotum COMPARISON STUDY: CT of same day TECHNIQUE: Real-time, grayscale, and color Doppler sonography of the testes and scrotum is performed. Images are reviewed in the transverse and longitudinal planes. FINDINGS: RIGHT HEMISCROTUM: The right testis measures 4.1 x 2.5 x 3.4 cm. Heterogeneous irregular area of decr eased echogenicity is noted either within or adjacent to the inferior right testicle measuring 2.1 x 2.1 x 2.2 cm with color flow. Normal-appearing arterial inflow is present within the right testicle. The right epididymal head appears normal. No varicocele or hydrocele is identified. LEFT HEMISCROTUM: The left testis measures 3.7 x 2.7 x 3.5 cm heterogeneous irregular decreased echog enicity is noted either within or adjacent to the inferior left testicle measuring 1.6 x 1.6 x 1.8 cm with color flow. Normal-appearing arterial inflow is present within the left testicle. The left epid idymal head appears normal. No varicocele or hydrocele is identified. There is extensive subcutaneous edema with multiloculated complex fluid collection of the scrotum bridegr suring up to approximately 6.4 x 5.0 x 3.3 cm demonstrating peripheral color flow. IMPRESSION: 1. Extensive scrotal wall edema with complex multiloculated scrotal fluid collection measuring up to 6.4 cm suggestive of abscess. 2. Heterogeneous foci either within or adjacent to the inferior testicles may also be on an infectiou s basis. One month follow-up testicular ultrasound recommended to exclude the less likely possibility of testicular malignancy. ACT 112: Negative or not required by law. The above report was generated using voice recognition software. It may contain grammatical, syntax o r spelling errors. Electronically signed by: Reilly Conroy M.D. 09/24/2022 8:01 AM
--- NOTE | 2022-09-24 08:28 | Anesthesiology Consultation ---
Date of Service September 24, 2022 Assessment & Plan (1) Encounter for pre-operative examination: Plan Patient ate an hour ago - history of difficulty with intubation even with glidescope - will bring to OR and give light sedation/analgesia for local I&D procedure Chart Review Chart Review: Acceptable Risk for Surgery History Surgery Operation Date: 09/24/22 09:30 Proposed Procedures p Scrotal Incision and Drainage - Bernardo Richardson MD Height/Weight Height: 5 ft 8 in Weight: 130 kg Allergies Allergy/AdvReac Type Severity Reaction Status Date / Time sulfamethoxazole AdvReac Unknown "Levels Verified 09/24/22 02:35 [From Bactrim] were up"-per [facility] trimethoprim [From Bactrim] AdvReac Unknown "Levels Verified 09/24/22 02:35 were up"-per [facility] Medications Home Medications Medication Instructions Recorded Confirmed Last Taken insulin aspart U-100 100 unit/mL 0 sliding scale dose subcut TIDM 10/08/18 09/24/22 02/24/22 (3 mL) subcutaneous pen (Novolog per sliding scale FlexPen U-100 Insulin aspart) famotidine 40 mg tablet (Pepcid) 40 mg PO QAM 05/27/19 09/24/22 09/23/22 allopurinol 300 mg tablet 300 mg PO QAM 01/23/20 09/24/22 09/23/22 insulin glargine U-300 conc 300 50 unit subcut BID 08/10/21 09/24/22 09/23/22 unit/mL (1.5 mL) subcutaneous pen (Toujeo SoloStar U-300 Insulin) carvedilol 6.25 mg tablet 6.25 mg PO BID #60 tabs 09/30/21 09/24/22 09/23/22 finerenone 10 mg tablet (Kerendia) 10 mg PO DAILY 12/29/21 09/24/22 02/24/22 clotrimazole-betamethasone 1 1 applic topical BID PRN affected 02/24/22 09/24/22 Unknown %-0.05 % topical cream area oxycodone 30 mg tablet 15 - 30 mg PO TID PRN pain #20 tabs 04/28/22 09/24/22 02/24/22 ascorbic acid (vitamin C) 500 mg 500 mg PO DAILY 09/24/22 09/24/22 09/23/22 tablet (Vitamin C) cefdinir 300 mg capsule 300 mg PO BID 09/24/22 09/24/22 09/23/22 cholecalciferol (vitamin D3) 125 125 mcg PO DAILY 09/24/22 09/24/22 09/23/22 mcg (5,000 unit) tablet (Vitamin D3) gabapentin 300 mg capsule 300 mg PO BID 09/24/22 09/24/22 09/23/22 warfarin 2.5 mg tablet See Rx Instructions .Route .COMPLEX 09/24/22 09/24/22 09/23/22 Past Medical History Medical History Celiac disease Chronic indwelling Velazquez catheter Chronic kidney disease, stage 3a follows with [facility] Coronary artery disease CABG x 1 2012-VG to LAD, multiple stents, follows with [facility] Diastolic congestive heart failure EF 55-59% Difficult airway for intubation 01/18/22 Patient unable to be intubated with Glidescope 4 - good view but unable to pass ETT, Igel #5 easily placed and worked well DM type 2 (diabetes mellitus, type 2) IDDM GI bleed 2018 requiring 3 blood transfusions, transferred to [facility] with work-up not revealing clear cause per records Gout Hepatitis C TREATED Hirschsprung's disease History of blood transfusion 2018 in setting of GI bleed History of COVID-19 05/2021- no symptoms- no hospitalization History of CVA (cerebrovascular accident) 2012-admitted [facility] History of endocarditis TREATED AT [facility] PRESBY-2012 History of GI bleed History of intravenous drug abuse Hx of pulmonary embolus Hyperlipidemia Morbid obesity Paraplegia Pulmonary emboli 05/2010-unknown cause- admitted and treated at [facility] Pulmonary hypertension Sleep apnea, organic NO DEVICE AT THIS TIME, HIS MACHINE WAS INVOLVED IN RECALL Past Family History Family History Father Cardiac disorder Hypertension Prostate cancer Diabetes Coronary heart disease COPD (chronic obstructive pulmonary disease) Pacemaker Mother Hypertension Skin cancer Dementia Past Surgical History Surgical History H/O aortic root repair 05/2016- [facility] H/O mitral valve repair [facility]NS[facility] PRES[facility] Hx of CABG 2012 [facility] PRES- DUE TO ENDOCARDITIS, single vessel per records S/P brain surgery 2013- [facility] PRESBY S/P cardiac cath S/P colostomy FOLLOWS W/ [facility] GI S/P ileostomy Social History Smoking Status: Never smoker Hx Alcohol Use: No alcohol intake frequency: holidays/special occasions only Hx Substance Use: Yes substance use type: marijuana Physical Exam Vital Signs Last Vital Signs Temp 37.4 C 09/24/22 02:12 Pulse 81 09/24/22 06:00 Resp 20 09/24/22 06:00 BP 154/65 H 09/24/22 06:00 Pulse Ox 97 09/24/22 06:00 O2 Del Method 09/24/22 06:00 Testing Laboratory Results 09/24/22 03:15 09/24/22 03:15 Urine Color Yellow 09/24/22 03:25 Urine Appearance Turbid (Clear) A 09/24/22 03:25 Urine pH 5.5 (4.5-7.5) 09/24/22 03:25 Ur Specific [place] 1.018 (1.000-1.030) 09/24/22 03:25 Urine Protein 4+ (Negative) H 09/24/22 03:25 Urine Glucose (UA) Negative (Negative) 09/24/22 03:25 Urine Ketones Negative (Negative) 09/24/22 03:25 Urine Nitrite Negative (Negative) 09/24/22 03:25 Ur Leukocyte Esterase 2+ (Negative) H 09/24/22 03:25 Urine WBC (Auto) >30 /hpf (0-5) H 09/24/22 03:25 Urine RBC (Auto) 5-10 /hpf (0-4) H 09/24/22 03:25 U Hyaline Cast (Auto) 0 /lpf (0-5) 09/24/22 03:25 U Epithel Cells (Auto) >30 /lpf (0-5) H 09/24/22 03:25 Urine Bacteria (Auto) Negative (Negative) 09/24/22 03:25 Electrocardiogram Date: 05/20/22 Findings: + NSR @ (87) and + NSST changes prolonged QT
[2022-09-24] MEDS ORDERED: fentaNYL citrate 100 MCG/2 ML VIAL ONE ×2 (08:38→09:49)
[2022-09-24] MEDS ORDERED: BUPIVACAINE 0.5 % 5 MG/1 ML MPF 30ML VIAL ONE (08:52)
[2022-09-24] MEDS ORDERED: PROPOFOL IV EMULSION 10 MG/ML 20 ML VIAL IV ONE (08:59)
[2022-09-24] MEDS ORDERED: MIDAZOLAM HCL 1 MG/ML 2ML VIAL ONE ×2 (09:00→09:29)
[2022-09-24] MEDS ORDERED: HYDROmorphone INJ 1 MG/ML SYRINGE IV PRN (09:12)
[2022-09-24] MEDS ORDERED: ONDANSETRON INJ 2 MG/ML 2 ML VIAL IV PRN ×2 (09:12→11:21)
[2022-09-24] MEDS ORDERED: ATROPINE SULFATE 0.1 MG/ML 10ML SYR IV PRN (09:12)
[2022-09-24] MEDS ORDERED: LABETALOL HCL IV 5 MG/ML 20ML IV PRN (09:12)
--- NOTE | 2022-09-24 09:18 | CT Scan Report ---
CT pelvis w/IV con only HISTORY: 52 years-old Male scrotal swelling, redness acute pain and swelling of the scrotum COMPARISON: Scrotal ultrasound of same day, CT abdomen and pelvis 02/17/2021 TECHNIQUE: Multiple axial CT images of the pelvis were obtained following the intravenous administrat ion of 85 mL Optiray. A dose lowering technique was used consistent with the principals of KELLI. FINDINGS: Nonobstructing calculus of the left kidney measure up to 4 mm. No ureteral calculi or hydronephrosis. Decompressed urinary bladder with wall thickening. Subtotal colectomy with right lower quadrant ileo stomy. Small bowel and fat filled parastomal hernia. Diastases recti with an additional small bowel c ontaining ventral midline hernia on image 44 series 3. Soft tissue thickening with calcifications wit hin the presacral/perirectal tissues again noted with decreased amount of soft tissue gas. Borderline enlarged inguinal chain lymph nodes measure up to 11 mm are likely reactive. Multilocular scrotal abscess measures up to approximately 6.4 cm. Possible associated intratesticular abscesses. A trophy of the proximal thigh musculature with extensive atherosclerosis. No acute fracture or suspici ous bone lesion. Degenerative changes of the pelvis and lumbar spine. IMPRESSION: 1. Multiloculated scrotal fluid collection suggestive of an abscess measuring up to 6.4 cm with possi ble intratesticular abscesses. Correlation with same-day scrotal ultrasound recommended. 2. Subtotal colectomy with right lower quadrant ileostomy. 3. Bowel containing parastomal and midline ventral abdominal wall hernias without obstruction. 4. Left nephrolithiasis. 5. Additional findings as above. ACT 112: Negative or not required by law. The above report was generated using voice recognition software. It may contain grammatical, syntax o r spelling errors. Electronically signed by: Reilly Conroy M.D. 09/24/2022 9:16 AM
[2022-09-24 09:24] LABS: INR 3.4 (0.9-1.1); Prothrombin Time 33.5 Seconds (9.0-12.0)
[2022-09-24] MEDS ORDERED: KETAMINE 50 MG/5 ML SYRINGE ONE (09:33)
[2022-09-24] MEDS ORDERED: ONDANSETRON INJ 2 MG/ML 2 ML VIAL ONE (09:47)
--- NOTE | 2022-09-24 10:08 | Post Operative Brief Note ---
PG Immediate Post Op with CF Date of Surgery September 24, 2022 Pre & Post Diagnosis Operation Date: 09/24/22 09:30 Pre-Op Diagnosis: Scrotal abscess Post-Op Diagnosis: Scrotal abscess I identified the patient and participated in the time-out.: Yes Procedure Operation Date: 09/24/22 09:30 Actual Procedures p Scrotal Incision and Drainage - Bernardo Richardson MD Surgeon Bernardo Richardson MD Dyehouse Worker None Estimated Blood Loss 30 Findings See Below 5 to 6 cm fluctuant anterior abscess overlying the left testicle. Incised and loculations broken up. Fluid sent for culture. Urethra and testicle uninvolved. Hemostasis appropriate. Packed with 2 inch Kerlix. Specimens Specimen Description: microbiology #1 Scrotal Abscess Routine culture and sentivity gram stain and anaerobic and aerobic Drains Velazquez Catheter Anesthesia Type MAC Complications none
--- NOTE | 2022-09-24 10:12 | Operative Report ---
PG Post Operative Report Pre & Post Diagnosis Operation Date: 09/24/22 09:30 Pre-Op Diagnosis: Scrotal abscess Post-Op Diagnosis: Scrotal abscess I identified the patient and participated in the time-out.: Yes Procedure Operation Date: 09/24/22 09:30 Actual Procedures p Scrotal Incision and Drainage - Bernardo Richardson MD Surgeon Bernardo Richardson MD Steel Construction Worker None Estimated Blood Loss 30 Findings See Below 5 to 6 cm fluctuant anterior abscess overlying the left testicle. Incised and loculations broken up. Fluid sent for culture. Urethra and testicle uninvolved. Hemostasis appropriate. Packed with 2 inch Kerlix. Specimens Abscess culture Drains 16 [place] Velazquez catheter with 10 cc in balloon Anesthesia Type MAC Complications none Indications 52-year-old paraplegic with a history of infections and recent kidney stone treatment at [facility]. He had a stent removed earlier this week at [facility] reportedly was having some scrotal pain and they gave him antibiotics. He presented to the hospital today with worsening pain. CT scan of the pelvis as well as scrotal ultrasound showed a 5 to 6 cm anterior scrotal abscess. Patient was given antibiotics. He unfortunately ate a bag of chips so we are not able to take him to the OR for general anesthesia. We opted to perform this under MAC with local anesthetic. Risks and benefits were discussed. Consent was obtained. Patient had previously been started on antibiotics. Description of Procedure After informed consent was obtained, the patient was transported to the operative suite. MAC anesthesia was induced. They were placed in dorsal lithotomy position and prepped and draped in sterile fashion. They received preoperative vancomycin and Zosyn. An appropriate surgical timeout was per formed. I placed a 16 [place] Velazquez catheter with return of urine and inflated the balloon with 10 cc of sterile water and set this to gravity drainage. I anesthetized the area with 10 cc of half percent Marcaine. Using 11 blade, I made a stab incision over the anterior left side of the scrotum overlying the fluctuant area. Immediate purulent drainage was noted. A culture was sent. I bluntly cleared out loculations in the left hemiscrotum with my finger. The incision opened up to roughly 3 cm. The wound was copiously irrigated. The wound was palpated and did not appear to involve either of the testicles. I was able to palpate the Velazquez catheter well away from the area of concern. I did irrigate the catheter and sure there was no communication and I did not see any fluid welling up in the scrotum. Hemostasis was achieved. An additional 10 cc of half percent Marcaine was injected for anesthetic purposes. The wound was packed with 2 inch Kerlix gauze soaked in saline. Careful examination of the rest of the scrotum and perineum revealed no crepitus or further fluid collections. This concluded the end of the case. All counts correct at the end of the case. I was present scrubbed and actively participated for the entirety of the procedure. I attest to the content of the Intraoperative Record and any orders documented therein. Any exceptions are noted below.
[2022-09-24] MEDS ORDERED: CLOTRIMAZOLE/BETAMETHASONE CR 15 GM TUBE EXT PRN (11:21)
[2022-09-24] MEDS ORDERED: HYDROmorphone INJ 0.5 MG/0.5 ML SYR IV PRN (11:21)
[2022-09-24] MEDS ORDERED: ACETAMINOPHEN 325 MG TAB PO PRN (11:21)
[2022-09-24] MEDS ORDERED: NITROGLYCERIN SL 0.4 MG/TAB TAB SL PRN (11:21)
[2022-09-24] MEDS ORDERED: DEXTROSE 50% 50 ML SYRINGE IV PRN (11:45)
[2022-09-24] MEDS ORDERED: CARBOHYDRATES FOR HYPOGLYCEMIA PO PRN (11:45)
[2022-09-24] MEDS ORDERED: GLUCAGON FOR INJ 1 MG VIAL IM PRN (11:45)
[2022-09-24] MEDS ORDERED: GLUCOSE 40% GEL 15 GM TUBE PO PRN (11:45)
[2022-09-24] MEDS ORDERED: GLUCOSE 10 TAB/TUBE PO PRN (11:45)
[2022-09-24] MEDS ORDERED: LANTUS PER UNIT CHARGE SQ ONE (11:45)
[2022-09-24] MEDS: SODIUM CHLORIDE 0.9% 1000ML 1,000 ML IV SCH ×2 (11:49→21:51)
[2022-09-24] MEDS: GABAPENTIN 300 MG CAP PO SCH ×2 (12:32→20:08)
[2022-09-24] MEDS: ASCORBIC ACID 500 MG TAB PO SCH (12:32)
[2022-09-24] MEDS: CHOLECALCIFEROL 5,000 UNITS 125 MCG TAB PO SCH (12:32)
[2022-09-24] MEDS: allopurinoL 300 MG TAB PO SCH (12:32)
[2022-09-24] MEDS: FAMOTIDINE 40 MG TABLET PO SCH (12:33)
[2022-09-24] MEDS: carvediloL 6.25 MG TAB PO SCH ×2 (12:33→20:08)
[2022-09-24] MEDS: ADVANCED PROBIOTIC 1250 MG CAPSULE PO SCH (12:33)
[2022-09-24] MEDS: INSULIN ASPART PER UNIT SC SCH ×3 (12:42→20:12)
--- NOTE | 2022-09-24 14:06 | Anesthesiology Progress Note ---
Date of Service September 24, 2022 Anesthesia Post Procedure Vital Signs Vital Signs: Temp Pulse Pulse Pulse Resp BP BP 09/24/22 11:42 36.4 C L 83 20 123/85 09/24/22 10:40 36.9 C 85 17 118/56 L 09/24/22 10:20 87 15 110/70 09/24/22 10:14 37.0 C 87 13 139/80 09/24/22 08:48 86 18 137/88 09/24/22 06:00 81 20 154/65 H 09/24/22 04:43 81 20 160/67 H 09/24/22 02:12 37.4 C 90 18 157/79 H Pulse Ox O2 Del Method O2 Flow Rate 09/24/22 11:42 96 Room Air 09/24/22 10:40 99 Nasal Cannula 2 09/24/22 10:20 95 Nasal Cannula 2 09/24/22 10:14 95 Nasal Cannula 2 09/24/22 08:48 98 Room Air 09/24/22 06:00 97 Room Air 09/24/22 04:43 95 Room Air 09/24/22 02:12 94 Room Air Pain Intensity Testicles: Pain Intensity: 0 Transfer of Care Handoff Completed per policy Notes Mental Status: alert / awake / arousable Patient Amnestic to Procedure: Yes Nausea / Vomiting: adequately controlled Pain: adequately controlled Airway Patency, RR, SpO2: stable & adequate BP & HR: stable & adequate Hydration State: stable & adequate Anesthetic Complications: no major complications apparent
[2022-09-24] MEDS: PIPERACILLIN/TAZOBACTAM 4.5 GM CI (over 4 hours) IV SCH ×2 (14:15→21:51)
[2022-09-24] MEDS ORDERED: PIPERACILLIN/TAZOBACTAM 3.375 GM in DEXTROSE 5% 100 ML IV SCH (16:00)
[2022-09-24] MEDS: DAPTOmycin 550 MG in SYRINGE 0 ML IV SCH (17:40)
[2022-09-24] MEDS: oxyCODONE HCL IR 5 MG TAB (IMMEDIATE RELEASE) PO PRN (20:07)
[2022-09-24] MEDS ORDERED: LANTUS PER UNIT CHARGE SQ SCH (21:00)
[2022-09-25] MEDS: PIPERACILLIN/TAZOBACTAM 4.5 GM CI (over 4 hours) IV SCH ×3 (05:45→22:14)
[2022-09-25] MEDS: oxyCODONE HCL IR 5 MG TAB (IMMEDIATE RELEASE) PO PRN ×2 (05:45→23:52)
[2022-09-25 06:17] LABS: Hematocrit (blood only) 34.5 % (42.0-52.0); Hemoglobin 10.9 g/dl (14.0-18.0); Mean Corpuscular Hemoglobin 29.2 pg (25.0-34.0); Mean Corpuscular Hgb Conc 31.6 g/dL (32.0-36.0); Mean Corpuscular Volume 92.5 fL (80.0-100.0); Mean Platelet Volume 9.4 fL (9.4-12.4); Platelet Count 222 K/uL (130-400); RDW Coefficient of Variation 16.5 % (11.5-14.5); RDW Standard Deviation 55.5 fL (36.4-46.3); Red Blood Count 3.73 M/uL (4.70-6.10); White Blood Count 9.04 K/ul (4.8-10.8)
[2022-09-25] MEDS: SODIUM CHLORIDE 0.9% 1000ML 1,000 ML IV SCH ×2 (06:30→16:35)
[2022-09-25 06:33] LABS: BUN Creatinine Ratio 16.9 (10-20); Calcium 8.8 mg/dl (8.5-10.1); Creatinine Clr Calc Pharmacy 65.7 ml/min; Est GFR (African American) 50.8 ml/min; Est GFR (Non-African American) 43.8 ml/min; Potassium 3.9 mmol/L (3.5-5.1)
[2022-09-25 06:40] LABS: INR 4.7 (0.9-1.1); Prothrombin Time 46.1 Seconds (9.0-12.0)
--- NOTE | 2022-09-25 08:41 | Urology Progress Note ---
Date of Service September 25, 2022 Assessment & Plan (1) Scrotal abscess: Plan 52-year-old wheelchair-bound male who is status post scrotal incision and drainage of abscess on 09/24/2022 Physical exam nonconcerning today. Packing was removed and replaced. Continue daily dressing changes, wet-to-dry Continue broad-spectrum antibiotics and follow-up cultures Maintain Velazquez catheter to avoid incontinence leaking into scrotal wound INR remains elevated, continue to hold Coumadin until INR gets into therapeutic range Urology to follow Admission and Anticipated Discharge Date Admission Date: September 24, 2022 Subjective Taken to the OR for scrotal I&D yesterday. Afebrile with stable vitals overnight. Leukocytosis downtrending from 16.1-9.04. Hemoglobin 10.9. INR is 4.7 this morning. Creatinine is 1.77, was previously 1.60. Velazquez draining yellow urine with sediment. Culture from OR prelim gram-negative bacilli. Patient is currently on caspofungin, Zosyn and daptomycin. 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 Testicles descended bilaterally. Anterior left-sided scrotal incision clean dry intact and packing removed. No areas of crepitus or concern for recurrence of abscess. Induration and erythema is consistent with abscess. No crepitus of remainder of scrotum or perineum. Extremities: Moves all 4 spontaneously Neuro: No gross deficits Skin: Warm, dry, no rashes noted Results & Data ([facility]) Vital Signs (Past 12 Hours) Vital Signs Temp Pulse Pulse Resp BP Pulse Ox O2 Del Method 09/25/22 08:05 36.5 C 85 18 141/75 H 91 Room Air 09/25/22 02:20 36.5 C 98 H 17 100/60 95 Room Air 09/24/22 23:00 88 09/24/22 22:32 36.7 C 86 18 111/61 92 Room Air PG Care Time/CCT Total # of Minutes Spent Total Time Spent with Patient: Total time spent is greater than 50% in coordination of care (as documented) at patient's floor/unit and/or counseling patient: Coding Level of Care Code 10321 SUB INP/OBS CARE 2/35MIN Diagnoses Scrotal abscess N49.2
[2022-09-25] MEDS: carvediloL 6.25 MG TAB PO SCH ×2 (08:56→20:10)
[2022-09-25] MEDS: GABAPENTIN 300 MG CAP PO SCH ×2 (08:56→20:10)
[2022-09-25] MEDS: ADVANCED PROBIOTIC 1250 MG CAPSULE PO SCH (08:56)
[2022-09-25] MEDS: allopurinoL 300 MG TAB PO SCH (08:56)
[2022-09-25] MEDS: FAMOTIDINE 40 MG TABLET PO SCH (08:57)
[2022-09-25] MEDS: ASCORBIC ACID 500 MG TAB PO SCH (08:58)
[2022-09-25] MEDS: CHOLECALCIFEROL 5,000 UNITS 125 MCG TAB PO SCH (08:58)
[2022-09-25] MEDS: INSULIN ASPART PER UNIT SC SCH ×4 (09:01→20:22)
[2022-09-25] MEDS: LANTUS PER UNIT CHARGE SQ SCH ×2 (09:02→20:22)
[2022-09-25] MEDS: CASPOFUNGIN 50 MG in SODIUM CHLORIDE 0.9% 250 ML IV SCH ×2 (09:57→10:52)
--- NOTE | 2022-09-25 10:53 | Hospitalist Progress Note ---
Date of Service September 25, 2022 Assessment & Plan (1) Scrotal abscess: Plan: POD #1 s/p I & D of abscess by [facility] Urology Dr Richardson. Appreciate his assistance. Culture growing GNR. Remains on zosyn/vanco/caspofungin (h/o edith glabrata UTIs, etc). Follow scrotal, blood and urine cultures. Cont IVF, pain control, scrotal support. (2) Catheter-associated urinary tract infection: Plan: Had visit to [facility] Urology clinic on 09/19/22. Had cystoscopy with ureteral stent removal during that time. Velazquez placed during that visit. Velazquez then removed on 09/21/22 at home. Urine cx from that visit grew e.coli sensitive to all abx except fluoroquinolones & amox/amox-clavulanate. Remains on Zosyn, vancomycin, and caspofungin while awaiting repeat urine & scrotal cultures. Narrow when able. Blood cx's thus far negative. (3) JUAREZ (acute kidney injury): Plan: 2nd to #1, #2. Can't rule out ATN but less likely. Presenting Cr 1.6. Today 1.7. Baseline about 1. Cont hydration; repeat BMP am. (4) Type 2 diabetes mellitus, uncontrolled: Plan: Toujeo converted to lantus. BSGs uncontrolled. Increase lantus to 60 units BID. Adjust Novolog correction factor to 10 and carb ratio to 1:3. Repeat HbA1C pending. (5) Celiac disease: Plan: past history of such gluten-free diet (6) Diastolic congestive heart failure: Plan: history of such he is not on standing diuretics at home he still appears volume contracted at this time - thus, continue IV fluids (7) Hirschsprung's disease: Plan: s/p subtotal colectomy with ileostomy creation (8) Pulmonary emboli: Plan: history of such; on chronic coumadin therapy. INR >4 today. cont to hold coumadin. repeat INR am. 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 (10) Benign essential hypertension: Plan: cont coreg BID (11) Coronary artery disease: Plan: cont coreg uncertain why he is not on asa or statin therapy no ischemic symptoms at this time (12) History of stroke: Plan: continue chronic coumadin (13) Morbid obesity: Plan: BMI 42 (14) History of endocarditis: Plan: noted s/p mitral valve repair s/p aortic root repair follow blood cultures while here but thus far negative (15) S/P ileostomy: Plan: no issues at this time 2nd to Hirschsprung's disease (16) Chronic pain syndrome: Plan: continue oxycodone prn PDMP shows every 30 day refills on oxycodone 30mg tablets on previous hospital stays the 30mg tabs often led to sedation thus, cut dose in 1/2 to 15mg prn Plan will update pt's family this evening Admission and Anticipated Discharge Date Admission Date: September 24, 2022 Subjective tele overnight wnl patient resting in bed comfortably scrotal pain is better eating well c/o feeling tired BIPAP was available to him last night but he wore it <1 hour family to bring in his home unit today no new complaints Review of Systems Review of Systems: gen - no fevers, no chills cv - no chest pain pulm - no dyspnea GI - no pain, ostomy functioning well Physical Exam Physical Exam: gen - obese, NAD, a little sleepy (staff report he just received dilaudid) mouth - MMM heart - RRR, s1 s2, no murmur lungs - CTA b/l, decreased BS bases abd - distended but nontender, BS+, ostomy with liquid stool in bag - scrotal swelling improved; less erythema; packing in place/dressings in place extremities - <1+ edema b/l, pulses 2+ b/l neuro - paraplegia of legs psych - a/o x 3 but a little sleepy Results & Data Results & Data ([facility]) Vital Signs (Past 12 Hours) Vital Signs Temp Pulse Pulse Resp BP Pulse Ox O2 Del Method 09/25/22 08:05 36.5 C 85 18 141/75 H 91 Room Air 09/25/22 02:20 36.5 C 98 H 17 100/60 95 Room Air 09/24/22 23:00 88 Laboratory Results Laboratory Results - last 24 hr 09/24/22 09/24/22 09/24/22 10:50 11:21 16:19 WBC RBC Hgb Hct MCV MCH MCHC RDW Std Deviation RDW Coeff of Lorenzo Plt Count MPV PT INR Sodium Potassium Chloride Carbon Dioxide Anion Gap BUN Creatinine Est Cr Clr Drug Dosing Est GFR ( Amer) Est GFR (Non-Af Amer) BUN/Creatinine Ratio Glucose POC Glucose 217 H 238 H 188 H Estimat Average Glucose Hemoglobin A1c Calcium 09/24/22 09/25/22 09/25/22 20:00 05:36 05:36 WBC 9.04 RBC 3.73 L Hgb 10.9 L Hct 34.5 L MCV 92.5 MCH 29.2 MCHC 31.6 L RDW Std Deviation 55.5 H RDW Coeff of Lorenzo 16.5 H Plt Count 222 MPV 9.4 PT 46.1 H INR 4.7 H Sodium Potassium Chloride Carbon Dioxide Anion Gap BUN Creatinine Est Cr Clr Drug Dosing Est GFR ( Amer) Est GFR (Non-Af Amer) BUN/Creatinine Ratio Glucose POC Glucose 291 H Estimat Average Glucose Hemoglobin A1c Calcium 09/25/22 09/25/22 09/25/22 05:36 05:36 07:38 WBC RBC Hgb Hct MCV MCH MCHC RDW Std Deviation RDW Coeff of Lorenzo Plt Count MPV PT INR Sodium 135 L Potassium 3.9 Chloride 108 H Carbon Dioxide 24 Anion Gap 3 BUN 30 H Creatinine 1.77 H Est Cr Clr Drug Dosing 65.7 Est GFR ( Amer) 50.8 Est GFR (Non-Af Amer) 43.8 BUN/Creatinine Ratio 16.9 Glucose 169 H POC Glucose 199 H Estimat Average Glucose Pending Hemoglobin A1c Pending Calcium 8.8 Diagnostic Findings scrotal wound cx- GNR urine cx- pending blood cx's - negative to date PG Care Time/CCT Total # of Minutes Spent Total Time Spent with Patient: Total time spent is greater than 50% in coordination of care (as documented) at patient's floor/unit and/or counseling patient: Coding Level of Care Code 14501 SUB INP/OBS CARE 3/50MIN Diagnoses Scrotal abscess N49.2 Catheter-associated urinary tract infection T83.511A; N39.0 JUAREZ (acute kidney injury) N17.9 Type 2 diabetes mellitus, uncontrolled E11.65 Celiac disease K90.0 Diastolic congestive heart failure I50.30 Hirschsprung's disease Q43.1 Pulmonary emboli I26.99 Paraplegia G82.20 Benign essential hypertension I10 Coronary artery disease I25.10 Associated angina: without angina Coronary Disease-Associated Artery/Lesion type: [place] artery [place] vs. transplanted heart: [place] heart History of stroke Z86.73 Morbid obesity E66.01 History of endocarditis Z86.79 S/P ileostomy Z93.2 Chronic pain syndrome G89.4 (1) Coronary artery disease Associated angina: without angina Coronary Disease-Associated Artery/Lesion type: [place] artery [place] vs. transplanted heart: [place] heart Qualified Code(s): I25.10 - Atherosclerotic heart disease of [place] coronary artery without angina pectoris
[2022-09-25] MEDS: DAPTOmycin 550 MG in SYRINGE 0 ML IV SCH (16:35)
[2022-09-26] MEDS: SODIUM CHLORIDE 0.9% 1000ML 1,000 ML IV SCH (02:44)
[2022-09-26] MEDS: PIPERACILLIN/TAZOBACTAM 4.5 GM CI (over 4 hours) IV SCH (05:54)
[2022-09-26 06:39] LABS: BUN Creatinine Ratio 13.1 (10-20); Calcium 8.4 mg/dl (8.5-10.1); Creatinine Clr Calc Pharmacy 69.1 ml/min; Est GFR (African American) 51.5 ml/min; Est GFR (Non-African American) 44.4 ml/min; Potassium 3.7 mmol/L (3.5-5.1)
[2022-09-26 06:45] LABS: INR 4.4 (0.9-1.1); Prothrombin Time 43.3 Seconds (9.0-12.0)
[2022-09-26 07:23] LABS: Estimated Average Glucose 226 mg/dl; Hemoglobin A1C 9.5 % (4.5-5.6)
[2022-09-26] MEDS: oxyCODONE HCL IR 5 MG TAB (IMMEDIATE RELEASE) PO PRN ×2 (07:37→14:52)
--- NOTE | 2022-09-26 07:59 | Urology Progress Note ---
Date of Service September 26, 2022 Assessment & Plan (1) Scrotal abscess: Plan 52-year-old wheelchair-bound male who is status post scrotal incision and drainage of abscess on 09/24/2022 Physical exam nonconcerning today. Packing was removed and replaced. Continue daily dressing changes, wet-to-dry. Agree with wound consult Scrotal abscess culture prelim E. coli, agree with caspofungin and ceftriaxone. Maintain Velazquez catheter to avoid incontinence leaking into scrotal wound. Can remove this just prior to discharge. INR remains elevated, continue to hold Coumadin until INR gets into therapeutic range Urology to follow Admission and Anticipated Discharge Date Admission Date: September 24, 2022 Subjective Afebrile with stable vitals overnight. Creatinine downtrending.Scrotal culture grew out E. coli. Currently on ceftriaxone and caspofungin. Reports feeling well today. 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 Testicles descended bilaterally. Anterior left-sided scrotal incision clean dry intact and packing removed. No areas of crepitus or concern for recurrence of abscess. Induration and erythema is consistent with abscess. No crepitus of remainder of scrotum or perineum. Extremities: Moves all 4 spontaneously Neuro: No gross deficits Skin: Warm, dry, no rashes noted Results & Data ([facility]) Vital Signs (Past 12 Hours) Vital Signs Temp Pulse Pulse Resp BP Pulse Ox O2 Del Method 09/26/22 07:13 80 09/26/22 03:10 75 16 93 09/26/22 02:45 36.6 C 77 18 130/70 97 CPAP 09/25/22 23:00 77 09/25/22 23:31 36.6 C 75 18 139/84 92 Room Air 09/25/22 22:11 74 18 96 09/25/22 20:00 Nasal Cannula 09/25/22 20:15 36.4 C L 78 18 131/94 98 Nasal Cannula O2 Flow Rate FiO2 09/26/22 07:13 09/26/22 03:10 21 09/26/22 02:45 09/25/22 23:00 09/25/22 23:31 09/25/22 22:11 21 09/25/22 20:00 2 09/25/22 20:15 2 PG Care Time/CCT Total # of Minutes Spent Total Time Spent with Patient: Total time spent is greater than 50% in coordination of care (as documented) at patient's floor/unit and/or counseling patient: Coding Level of Care Code 55142 SUB INP/OBS CARE 2/35MIN Diagnoses Scrotal abscess N49.2
[2022-09-26] MEDS: INSULIN ASPART PER UNIT SC SCH ×4 (08:32→20:40)
[2022-09-26] MEDS: LANTUS PER UNIT CHARGE SQ SCH ×2 (08:33→20:40)
[2022-09-26] MEDS: cefTRIAXone SODIUM 2,000 MG in DEXTROSE 5% 50 ML IV SCH (08:36)
[2022-09-26] MEDS: carvediloL 6.25 MG TAB PO SCH ×2 (08:37→20:44)
[2022-09-26] MEDS: allopurinoL 300 MG TAB PO SCH (08:37)
[2022-09-26] MEDS: ASCORBIC ACID 500 MG TAB PO SCH (08:37)
[2022-09-26] MEDS: FAMOTIDINE 40 MG TABLET PO SCH (08:38)
[2022-09-26] MEDS: GABAPENTIN 300 MG CAP PO SCH ×2 (08:38→20:44)
[2022-09-26] MEDS: ADVANCED PROBIOTIC 1250 MG CAPSULE PO SCH (08:38)
[2022-09-26] MEDS: CHOLECALCIFEROL 5,000 UNITS 125 MCG TAB PO SCH (08:38)
[2022-09-26] MEDS: CASPOFUNGIN 50 MG in SODIUM CHLORIDE 0.9% 250 ML IV SCH (09:37)
--- NOTE | 2022-09-26 17:19 | Hospitalist Progress Note ---
Date of Service September 26, 2022 Assessment & Plan (1) Scrotal abscess: Plan: POD #2 s/p I & D of abscess by [facility] Urology Dr Richardson. Appreciate his assistance. Culture grew e.coli - sensitive to rocephin amongst others stop zosyn stop vanco change to IV rocephin 2 gm IV daily blood cx's negative urine cx - see below stop IV fluids cont oxy prn no further IV dilaudid scrotal support will ask ID to consult tomorrow regarding choice of abx moving forward, length of Rx, etc. per Dr Richardson keep pike for now (2) Catheter-associated urinary tract infection: Plan: Had visit to [facility] Urology clinic on 09/19/22. Had cystoscopy with ureteral stent removal during that time. Pike placed during that visit. Piek then removed on 09/21/22 at his home. Urine cx from [facility] on 09/19/22 grew e.coli sensitive to all abx except fluoroquinolones & amox/amox-clavulanate. Urine cx here with small amount of GNR as well as non edith albicans yeast. He has had infections with edith glabrata in the past. Cont rocephin. Cont caspofungin. Will call microbiology and ask them to send out the urine culture for speciation and sensitivities of the edith. Blood cx's remain negative. (3) JUAREZ (acute kidney injury): Plan: 2nd to #1, #2. Can't rule out ATN but less likely. Presenting Cr 1.6. Today once again it remains at 1.7. Baseline about 1. He looks euvolemic today. IV fluids stopped today. repeat BMP am (4) Type 2 diabetes mellitus, uncontrolled: Plan: Toujeo converted to lantus. BSGs still remain uncontrolled. Increase lantus to 65 units BID. Adjust Novolog correction factor to 9 and carb ratio to 1:3. Goal range 120-150 HbA1C 9.5% will obtain DM education consult while here (5) Celiac disease: Plan: past history of such gluten-free diet (6) Diastolic congestive heart failure: Plan: history of such he is not on standing diuretics at home he was initially volume contracted upon presentation received IV fluids - those were stopped today cxr obtained due to NC O2 requirement (usually is not on NC O2 at home) ?pulmonary edema on cxr? check a BNP in am hold off on diuretics today due to JUAREZ (7) Hirschsprung's disease: Plan: s/p subtotal colectomy with ileostomy creation no issues (8) Pulmonary emboli: Plan: history of such; on chronic coumadin therapy. INR still >4 today. cont to hold coumadin. repeat INR am. 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 (10) Benign essential hypertension: Plan: cont coreg BID (11) Coronary artery disease: Plan: cont coreg uncertain why he is not on asa or statin therapy chronically no ischemic symptoms at this time (12) History of stroke: Plan: continue chronic coumadin (13) Morbid obesity: Plan: BMI 45 (14) History of endocarditis: Plan: noted s/p mitral valve repair s/p aortic root repair follow blood cultures while here but thus far negative (15) S/P ileostomy: Plan: no issues at this time 2nd to Hirschsprung's disease (16) Chronic pain syndrome: Plan: continue oxycodone prn PDMP shows every 30 day refills on oxycodone 30mg tablets on previous hospital stays the 30mg tabs often led to sedation thus, I cut dose in 1/2 to 15mg prn he still seems sleepy even with this no dose increase today (17) ANIBAL (obstructive sleep apnea): Plan: home CPAP (or BIPAP) unit is here I spoke with respiratory and they will set him up with this for tonight if home unit is not functional then use hospital-issued (18) Pulmonary hypertension: Plan: could contribute to [place] O2 requirement (19) Hypoxia: Plan: 2nd to pulm edema? 2nd to obesity-hypoventilation syndrome in setting of current narcotic usage? pulmonary HTN? combination of factors? cont NC O2 check BNP am follow o2 sats Plan pt's father updated by phone on 09/25/22 Admission and Anticipated Discharge Date Admission Date: September 24, 2022 Subjective telemetry stable overnight scrotal pain is improved despite NC O2 requirement he denies dyspnea used BIPAP last pm (hospital-issued); he did not use his home unit - father brought it last pm during my visit today I removed his NC O2 and his O2 sats promptly decreased to 88-90% in room air 2 L NC O2 re-applied; sats returned to 99% quickly eating well drinking well no other new complaints Review of Systems Review of Systems: gem - no fevers or chills cv - no chest pain pulm - no dyspnea; no cough GI - no abd pain or nausea; ostomy working well Physical Exam Physical Exam: gen - obese, NAD; speech slightly slurry at times; he was not sleepy or lethargic today; heavy accent mouth - MMM meck - no obvious JVD although assessment of such is quite challenging heart - RRR, s1 s2, no murmur lungs - CTA b/l, decreased BS bases, occasional rales bases abd - distended but nontender (baseline), BS+, ostomy with liquid stool in bag - scrotal swelling again improved; less erythema; packing in place/dressings in place; no foul odor extremities - <1+ edema b/l, pulses 2+ b/l skin - stasis changes b/l legs with pink erythema but no warmth neuro - paraplegia of legs psych - a/o x 3 Results & Data Results & Data ([facility]) Vital Signs (Past 12 Hours) Vital Signs Temp Pulse Pulse Resp BP Pulse Ox O2 Del Method 09/26/22 15:15 36.8 C 78 17 133/65 96 Nasal Cannula 09/26/22 15:09 83 09/26/22 09:00 Nasal Cannula 09/26/22 11:54 36.4 C L 79 16 124/64 98 Nasal Cannula 09/26/22 07:30 36.7 C 75 18 144/55 H 98 Nasal Cannula 09/26/22 07:13 80 O2 Flow Rate 09/26/22 15:15 2 09/26/22 15:09 09/26/22 09:00 2 09/26/22 11:54 2 09/26/22 07:30 2 09/26/22 07:13 Laboratory Results Laboratory Results - last 24 hr 09/25/22 09/25/22 09/26/22 05:36 20:18 05:34 PT 43.3 H INR 4.4 H Sodium Potassium Chloride Carbon Dioxide Anion Gap BUN Creatinine Est Cr Clr Drug Dosing Est GFR ( Amer) Est GFR (Non-Af Amer) BUN/Creatinine Ratio Glucose POC Glucose 190 H Estimat Average Glucose 226 Hemoglobin A1c 9.5 H Calcium 09/26/22 09/26/22 09/26/22 05:34 07:34 11:13 PT INR Sodium 137 Potassium 3.7 Chloride 109 H Carbon Dioxide 23 Anion Gap 5 BUN 23 Creatinine 1.75 H Est Cr Clr Drug Dosing 69.1 Est GFR ( Amer) 51.5 Est GFR (Non-Af Amer) 44.4 BUN/Creatinine Ratio 13.1 Glucose 170 H POC Glucose 158 H 162 H Estimat Average Glucose Hemoglobin A1c Calcium 8.4 L 09/26/22 16:26 PT INR Sodium Potassium Chloride Carbon Dioxide Anion Gap BUN Creatinine Est Cr Clr Drug Dosing Est GFR ( Amer) Est GFR (Non-Af Amer) BUN/Creatinine Ratio Glucose POC Glucose 170 H Estimat Average Glucose Hemoglobin A1c Calcium Diagnostic Findings blood cx's negative scrotal abscess culture - e.coli, sens to rocephin urine cx - non edith albicans species, >100,000 CFU; small amount of GNR urine cx from [facility] 09/19/22 - e.coli, same sensitivities as the e.coli tat grew from scrotum PG Care Time/CCT Total # of Minutes Spent Total Time Spent with Patient: Total time spent is greater than 50% in coordination of care (as documented) at patient's floor/unit and/or counseling patient: Coding Level of Care Code 59992 SUB INP/OBS CARE 3/50MIN Diagnoses Scrotal abscess N49.2 Catheter-associated urinary tract infection T83.511A; N39.0 JUAREZ (acute kidney injury) N17.9 Type 2 diabetes mellitus, uncontrolled E11.65 Celiac disease K90.0 Diastolic congestive heart failure I50.30 Hirschsprung's disease Q43.1 Pulmonary emboli I26.99 Paraplegia G82.20 Benign essential hypertension I10 Coronary artery disease I25.10 Associated angina: without angina Coronary Disease-Associated Artery/Lesion type: [place] artery [place] vs. transplanted heart: [place] heart History of stroke Z86.73 Morbid obesity E66.01 History of endocarditis Z86.79 S/P ileostomy Z93.2 Chronic pain syndrome G89.4 ANIBAL (obstructive sleep apnea) G47.33 Pulmonary hypertension I27.20 Hypoxia R09.02 (1) Coronary artery disease Associated angina: without angina Coronary Disease-Associated Artery/Lesion type: [place] artery [place] vs. transplanted heart: [place] heart Qualified Code(s): I25.10 - Atherosclerotic heart disease of [place] coronary artery without angina pectoris
--- NOTE | 2022-09-26 18:00 | XRay Report ---
SINGLE VIEW CHEST CLINICAL HISTORY: Hypoxia FINDINGS: An AP, portable, upright chest radiograph is compared to study dated 05/21/2022. The patient is status post midline sternotomy. The heart is enlarged. There is prominence of the pulmonary vascu lar. Scarring/atelectasis is noted at the lung bases. The lungs and pleural spaces are otherwise srinivas r. No large pleural effusion or pneumothorax is seen. The skeletal structures appear osteopenic. The bony thorax is grossly intact. IMPRESSION: 1. Cardiomegaly with prominence of the pulmonary vasculature. Correlate clinically for evidence of fl uid overload/mild congestive change. 2. No airspace consolidation or large pleural effusion is identified. ACT 112: Negative or not required by law. Electronically signed by: Paul Zamarripa M.D. 09/26/2022 5:58 PM
[2022-09-27] MEDS: oxyCODONE HCL IR 5 MG TAB (IMMEDIATE RELEASE) PO PRN ×3 (06:41→17:49)
[2022-09-27 06:57] LABS: Basophils # (auto) 0.05 K/uL (0-0.2); Basophils % (auto) 0.6 %; Eosinophils # (auto) 0.34 K/uL (0-0.50); Eosinophils % (auto) 3.9 %; Hematocrit (blood only) 35.5 % (42.0-52.0); Hemoglobin 10.9 g/dl (14.0-18.0); Immature Granulocytes # (auto) 0.05 K/uL (0.01-0.20); Immature Granulocytes % (auto) 0.6 %; Lymphocytes # (auto) 1.34 K/uL (1.2-3.4); Lymphocytes % (auto) 15.4 %; Mean Corpuscular Hemoglobin 28.8 pg (25.0-34.0); Mean Corpuscular Hgb Conc 30.7 g/dL (32.0-36.0); Mean Corpuscular Volume 93.9 fL (80.0-100.0); Mean Platelet Volume 9.6 fL (9.4-12.4); Monocytes # (auto) 0.36 K/uL (0.11-0.59); Monocytes % (auto) 4.1 %; Neutrophils # (auto) 6.58 K/uL (1.40-6.50); Neutrophils % (auto) 75.4 %; Platelet Count 214 K/uL (130-400); RDW Coefficient of Variation 16.1 % (11.5-14.5); RDW Standard Deviation 55.8 fL (36.4-46.3); Red Blood Count 3.78 M/uL (4.70-6.10); White Blood Count 8.72 K/ul (4.8-10.8)
[2022-09-27 07:15] LABS: INR 3.6 (0.9-1.1); Prothrombin Time 35.4 Seconds (9.0-12.0)
[2022-09-27 07:40] LABS: BUN Creatinine Ratio 13.2 (10-20); Creatinine Clr Calc Pharmacy 80.1 ml/min; Est GFR (African American) 61.5 ml/min; Est GFR (Non-African American) 53.1 ml/min; Potassium 3.8 mmol/L (3.5-5.1)
[2022-09-27] MEDS: carvediloL 6.25 MG TAB PO SCH ×2 (07:48→21:03)
[2022-09-27] MEDS: GABAPENTIN 300 MG CAP PO SCH ×2 (07:48→21:03)
[2022-09-27] MEDS: cefTRIAXone SODIUM 2,000 MG in DEXTROSE 5% 50 ML IV SCH (07:48)
[2022-09-27] MEDS: ASCORBIC ACID 500 MG TAB PO SCH (07:49)
[2022-09-27] MEDS: FAMOTIDINE 40 MG TABLET PO SCH (07:49)
[2022-09-27] MEDS: allopurinoL 300 MG TAB PO SCH (07:49)
[2022-09-27] MEDS: ADVANCED PROBIOTIC 1250 MG CAPSULE PO SCH (07:49)
[2022-09-27] MEDS: CHOLECALCIFEROL 5,000 UNITS 125 MCG TAB PO SCH (07:49)
[2022-09-27] MEDS: CASPOFUNGIN 50 MG in SODIUM CHLORIDE 0.9% 250 ML IV SCH (07:49)
--- NOTE | 2022-09-27 08:13 | Infectious Disease Consult ---
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 Infectious Diseases has been consulted for scrotal abscess. 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 He was initially treated with Ciprofloxacin by his PCP. He was then seen by Urology at [facility] for ureteral stent removal. He was changed from Ciprofloxacin to cefdinir. However swelling/redness worsened. On 09/24 admission, he was afebrile, BP stable. Initial labs showd WBC 16.19, CT showed non obstructing urine L kidney calculus 4mm. Bladder wall thickening. Multilocular scrotal abscess measures up to approximately 6.4 cm. Possible associated intratesticular abscesses. On 09/24 he underwent I+D with Dr. Richardson. OR notable for 5 to 6 cm fluctuant anterior abscess overlying the left testicle. Incised and loculations broken up. Fluid sent for culture. Urethra and testicle uninvolved. Notably no communication between catheter and abscess. MICRO 2/ UA 2+ blood 2+LE, >30 WBcs, budding yeast. Ucx growing Yeast not Taylor albicans/dub, >100K, GNB 7, 000 not identified. 2/ Blood cultures are NGTD 2/ Wound culture growing Ecoli S Amox/Clav, Cefepime, Ceftriaxone, Ertapenem, Piptazo, Bactrim. ABX Vancomycin 2/ Daptomycin 2/4 Zosyn 2/-2/6 Caspofungin 2/4 - Ceftriaxone 09/26- Discussion: 52 yo M with with scrotal abscess previously on Ciprofloxacin and cefdinir. He is now s/p I+D with OR culture growth of Ecoli. He is appropriately on Ceftriaxone. I would add Flagyl for anaerobe coverage. He is not bacteremic and now has source control Recommendations: -C/W Ceftriaxone 2G IV daily -Would add flagyl 500mg po TID to cover anaerobes -Given no yeast growth in wound culture, would dc Caspofungin as echinocandins have poor bladder update. -Given blood cultures are negative and source control achieved anticipate transition to po antibiotics when stable for discharge Thank you for this consultation, Infectious Diseases will follow with you. Will D/w Primary team Radha Cleaning MD Department of Infectious Diseases [facility], [facility] Consultation Information This patient recommendation is based on a telemedicine consult request which was completed asynchronously through chart review and information provided by the primary physician. The patient was not seen or examined today. The evaluation is consultative in nature and all patient care and treatment decisions can either be accepted or rejected by the patient's primary hospital-based treating physician using their own independent medical judgment for their patient. Internal Communications Writer contact information: Please call [facility] Call Center . (Phone Number For Physician Use Only) Time Spent Reviewing Chart: 31+ minutes History of Present Illness Reason for Consultation: scrotal abscess Requesting Physician: Aby Reed MD Attending Physician: Aby Reed MD History of Present Illness 52 yo M with h/o Hirschsprung's disease with ileostomy, T2DM, CAD s/p CABG and stents, past h/o Hepatitis C, h/o CVA with paraplegia and chronic pike, ANIBAL, dHF, PE / DVT on coumadin, CVA, HTN, endocarditis s/p aortic root repair and mitral valve repair, recurrent UTIs with nephrolithiasis, past h/o IV drug abuse, and cervical spine stenosis s/p c-spine surgery admitted to [facility] on 09/24 for scrotal swelling. Infectious Diseases has been consulted for scrotal abscess. 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 He was initially treated with Ciprofloxacin by his PCP. He was then seen by Urology at [facility] for ureteral stent removal. He was changed from Ciprofloxacin to cefdinir. However swelling/redness worsened. On 09/24 admission, he was afebrile, BP stable. Initial labs showd WBC 16.19, platelets 264, Creatinine 1.6, LFTs wnl except for mildly increased alk phos, UA 2+ blood 2+LE, >30 WBcs, budding yeast. Ucx growing Yeast not Taylor albicans/dub, >100K, GNB 7, 000 not identified. 09/24 Blood cultures are NGTD He was initiated on Vancomycin, Zosyn and Caspofungin CT showed non obstructing urine L kidney calculus 4mm. Bladder wall thickening. Multilocular scrotal abscess measures up to approximately 6.4 cm. Possible associated intratesticular abscesses. On 09/24 he underwent I+D with Dr. Richardson. OR notable for 5 to 6 cm fluctuant anterior abscess overlying the left testicle. Incised and loculations broken up. Fluid sent for culture. Urethra and testicle uninvolved. Notably no communication between catheter and abscess. 09/24 Wound culture growing Ecoli S Amox/Clav, Cefepime, Ceftriaxone, Ertapenem, Piptazo, Bactrim. Patient has been narrowed to ceftriaxone Allergies Allergy/AdvReac Type Severity Reaction Status Date / Time sulfamethoxazole AdvReac Unknown "Levels Verified 09/24/22 02:35 [From Bactrim] were up"-per [facility] trimethoprim [From Bactrim] AdvReac Unknown "Levels Verified 09/24/22 02:35 were up"-per [facility] Home Medications Medication Instructions Recorded Confirmed Type insulin aspart U-100 100 unit/mL 0 sliding scale dose subcut TIDM 10/08/18 09/24/22 History (3 mL) subcutaneous pen (Novolog per sliding scale FlexPen U-100 Insulin aspart) famotidine 40 mg tablet (Pepcid) 40 mg PO QAM 05/27/19 09/24/22 History allopurinol 300 mg tablet 300 mg PO QAM 01/23/20 09/24/22 History insulin glargine U-300 conc 300 50 unit subcut BID 08/10/21 09/24/22 History unit/mL (1.5 mL) subcutaneous pen (Toujeo SoloStar U-300 Insulin) carvedilol 6.25 mg tablet 6.25 mg PO BID #60 tabs 09/30/21 09/24/22 Rx finerenone 10 mg tablet (Kerendia) 10 mg PO DAILY 12/29/21 09/24/22 History clotrimazole-betamethasone 1 1 applic topical BID PRN affected 02/24/22 09/24/22 History %-0.05 % topical cream area oxycodone 30 mg tablet 15 - 30 mg PO TID PRN pain #20 tabs 04/28/22 09/24/22 Rx ascorbic acid (vitamin C) 500 mg 500 mg PO DAILY 09/24/22 09/24/22 History tablet (Vitamin C) cefdinir 300 mg capsule 300 mg PO BID 09/24/22 09/24/22 History cholecalciferol (vitamin D3) 125 125 mcg PO DAILY 09/24/22 09/24/22 History mcg (5,000 unit) tablet (Vitamin D3) gabapentin 300 mg capsule 300 mg PO BID 09/24/22 09/24/22 History warfarin 2.5 mg tablet See Rx Instructions .Route .COMPLEX 09/24/22 09/24/22 History Patient History Medical History (Updated 09/27/22 @ 05:30 by Sanjiv Avendano) Celiac disease Chronic indwelling Pike catheter Chronic kidney disease, stage 3a follows with [place] [facility] Coronary artery disease CABG x 1 2012-VG to LAD, multiple stents, follows with [facility] Diastolic congestive heart failure EF 55-59% Difficult airway for intubation 01/18/22 Patient unable to be intubated with Glidescope 4 - good view but unable to pass ETT, Igel #5 easily placed and worked well DM type 2 (diabetes mellitus, type 2) IDDM GI bleed 2018 requiring 3 blood transfusions, transferred to [facility] with work-up not revealing clear cause per records Gout Hepatitis C TREATED Hirschsprung's disease History of blood transfusion 2018 in setting of GI bleed History of COVID-19 05/2021- no symptoms- no hospitalization History of CVA (cerebrovascular accident) 2012-admitted [facility] History of endocarditis TREATED AT [facility]-2012 History of GI bleed History of intravenous drug abuse Hx of pulmonary embolus Hyperlipidemia Morbid obesity Paraplegia Pulmonary emboli 05/2010-unknown cause- admitted and treated at [facility] Pulmonary hypertension Sleep apnea, organic NO DEVICE AT THIS TIME, HIS MACHINE WAS INVOLVED IN RECALL Surgical History (Updated 09/24/22 @ 08:59 by Sanjiv Avendano) H/O aortic root repair 05/2016- [facility] H/O cervical spine surgery for severe stenosis w/ myelopathy; [facility] UNSURE-EITHER [facility] OR [facility] Hx of CABG 2012 [facility] PRES- DUE TO ENDOCARDITIS, single vessel per records S/P brain surgery 2013- [facility] S/P cardiac cath S/P colostomy [facility] ileostomy S/[facility] Family History Father Cardiac disorder Hypertension Prostate cancer Diabetes Coronary heart disease COPD (chronic obstructive pulmonary disease) Pacemaker Mother Hypertension Skin cancer Dementia Social History (Updated 09/24/22 @ 09:00 by Sanjiv Avendano) Smoking Status: Never smoker Tobacco Type: Cigarettes Second Hand Exposure: No; Hx Alcohol Use: No Hx Substance Use: Yes Preferred Language: Singaporean Communication Ability: Effective Psychiatric Orderly Required: No Beliefs That Will Affect Care: None marital status: Single Current Living Situation: Parent Current Living Situation Comment: Lives with parents and has caregivers to come and help with ADLs current occupational status: employed 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 How many Children do You have: 2 Feels Safe at Home: Yes Assistive Devices: Hospital Bed, Mechanical Lift and Scooter/Electric Scooter Results & Data ([facility]) Vital Signs (Past 12 Hours) Vital Signs Temp Pulse Pulse Pulse Resp BP Pulse Ox 09/27/22 07:03 36.7 C 71 12 138/83 95 09/27/22 03:10 36.8 C 75 18 165/75 H 98 09/27/22 00:40 77 09/26/22 22:32 36.6 C 81 18 126/64 95 O2 Del Method O2 Flow Rate 09/27/22 07:03 Room Air 09/27/22 03:10 Nasal Cannula 09/27/22 00:40 09/26/22 22:32 Nasal Cannula 2 Laboratory Results Laboratory Results - last 48 hr 09/25/22 09/25/22 09/25/22 05:36 11:13 16:16 WBC RBC Hgb Hct MCV MCH MCHC RDW Std Deviation RDW Coeff of Lorenzo Plt Count MPV Immature Gran % (Auto) Neut % (Auto) Lymph % (Auto) Bent % (Auto) Eos % (Auto) Baso % (Auto) Neut # (Auto) Lymph # (Auto) Bent # (Auto) Eos # (Auto) Baso # (Auto) Immature Gran # (Auto) PT INR Sodium Potassium Chloride Carbon Dioxide Anion Gap BUN Creatinine Est Cr Clr Drug Dosing Est GFR ( Amer) Est GFR (Non-Af Amer) BUN/Creatinine Ratio Glucose POC Glucose 195 H 184 H Estimat Average Glucose 226 Hemoglobin A1c 9.5 H Calcium B-Natriuretic Peptide 09/25/22 09/26/22 09/26/22 20:18 05:34 05:34 WBC RBC Hgb Hct MCV MCH MCHC RDW Std Deviation RDW Coeff of Lorenzo Plt Count MPV Immature Gran % (Auto) Neut % (Auto) Lymph % (Auto) Bent % (Auto) Eos % (Auto) Baso % (Auto) Neut # (Auto) Lymph # (Auto) Bent # (Auto) Eos # (Auto) Baso # (Auto) Immature Gran # (Auto) PT 43.3 H INR 4.4 H Sodium 137 Potassium 3.7 Chloride 109 H Carbon Dioxide 23 Anion Gap 5 BUN 23 Creatinine 1.75 H Est Cr Clr Drug Dosing 69.1 Est GFR ( Amer) 51.5 Est GFR (Non-Af Amer) 44.4 BUN/Creatinine Ratio 13.1 Glucose 170 H POC Glucose 190 H Estimat Average Glucose Hemoglobin A1c Calcium 8.4 L B-Natriuretic Peptide 09/26/22 09/26/22 09/26/22 07:34 11:13 16:26 WBC RBC Hgb Hct MCV MCH MCHC RDW Std Deviation RDW Coeff of Lorenzo Plt Count MPV Immature Gran % (Auto) Neut % (Auto) Lymph % (Auto) Bent % (Auto) Eos % (Auto) Baso % (Auto) Neut # (Auto) Lymph # (Auto) Bent # (Auto) Eos # (Auto) Baso # (Auto) Immature Gran # (Auto) PT INR Sodium Potassium Chloride Carbon Dioxide Anion Gap BUN Creatinine Est Cr Clr Drug Dosing Est GFR ( Amer) Est GFR (Non-Af Amer) BUN/Creatinine Ratio Glucose POC Glucose 158 H 162 H 170 H Estimat Average Glucose Hemoglobin A1c Calcium B-Natriuretic Peptide 09/26/22 09/27/22 09/27/22 20:11 06:39 06:39 WBC 8.72 RBC 3.78 L Hgb 10.9 L Hct 35.5 L MCV 93.9 MCH 28.8 MCHC 30.7 L RDW Std Deviation 55.8 H RDW Coeff of Lorenzo 16.1 H Plt Count 214 MPV 9.6 Immature Gran % (Auto) 0.6 Neut % (Auto) 75.4 Lymph % (Auto) 15.4 Bent % (Auto) 4.1 Eos % (Auto) 3.9 Baso % (Auto) 0.6 Neut # (Auto) 6.58 H Lymph # (Auto) 1.34 Bent # (Auto) 0.36 Eos # (Auto) 0.34 Baso # (Auto) 0.05 Immature Gran # (Auto) 0.05 PT 35.4 H INR 3.6 H Sodium Potassium Chloride Carbon Dioxide Anion Gap BUN Creatinine Est Cr Clr Drug Dosing Est GFR ( Amer) Est GFR (Non-Af Amer) BUN/Creatinine Ratio Glucose POC Glucose 205 H Estimat Average Glucose Hemoglobin A1c Calcium B-Natriuretic Peptide 09/27/22 09/27/22 09/27/22 06:39 06:39 07:03 WBC RBC Hgb Hct MCV MCH MCHC RDW Std Deviation RDW Coeff of Lorenzo Plt Count MPV Immature Gran % (Auto) Neut % (Auto) Lymph % (Auto) Bent % (Auto) Eos % (Auto) Baso % (Auto) Neut # (Auto) Lymph # (Auto) Bent # (Auto) Eos # (Auto) Baso # (Auto) Immature Gran # (Auto) PT INR Sodium 139 Potassium 3.8 Chloride 109 H Carbon Dioxide 26 Anion Gap 4 BUN 20 Creatinine 1.51 H Est Cr Clr Drug Dosing 80.1 Est GFR ( Amer) 61.5 Est GFR (Non-Af Amer) 53.1 BUN/Creatinine Ratio 13.2 Glucose 130 H POC Glucose 132 H Estimat Average Glucose Hemoglobin A1c Calcium 9.0 B-Natriuretic Peptide 223 H Microbiology 09/24/22 03:25 Urine,Clean Catch Urine Culture - Final Yeast not Taylor albicans/dub Gram negative bacilli 09/24/22 09:43 Scrotum Gram Stain - Final 09/24/22 09:43 Scrotum Aerobic and Anaerobic Culture - Preliminary Escherichia coli 09/24/22 03:15 Blood Aerobic Blood Culture - Preliminary No growth in Aerobic bottle after 48 hours. 09/24/22 03:15 Blood Anaerobic Blood Culture - Preliminary No growth in Anaerobic bottle after 48 hours. 09/24/22 03:36 Blood Aerobic Blood Culture - Preliminary No growth in Aerobic bottle after 48 hours. 09/24/22 03:36 Blood Anaerobic Blood Culture - Preliminary No growth in Anaerobic bottle after 48 hours. Diagnostic Findings Pelvis CT 09/24/22 02:46 CT pelvis w/IV con only HISTORY: 52 years-old Male scrotal swelling, redness acute pain and swelling of the scrotum COMPARISON: Scrotal ultrasound of same day, CT abdomen and pelvis 02/17/2021 TECHNIQUE: Multiple axial CT images of the pelvis were obtained following the intravenous administration of 85 mL Optiray. A dose lowering technique was used consistent with the principals of KELLI. FINDINGS: Nonobstructing calculus of the left kidney measure up to 4 mm. No ureteral calculi or hydronephrosis. Decompressed urinary bladder with wall thickening. Subtotal colectomy with right lower quadrant ileostomy. Small bowel and fat filled parastomal hernia. Diastases recti with an additional small bowel containing ventral midline hernia on image 44 series 3. Soft tissue thickening with calcifications within the presacral/perirectal tissues again noted with decreased amount of soft tissue gas. Borderline enlarged inguinal chain lymph nodes measure up to 11 mm are likely reactive. Multilocular scrotal abscess measures up to approximately 6.4 cm. Possible associated intratesticular abscesses. Atrophy of the proximal thigh musculature with extensive atherosclerosis. No acute fracture or suspicious bone lesion. Degenerative changes of the pelvis and lumbar spine. IMPRESSION: 1. Multiloculated scrotal fluid collection suggestive of an abscess measuring up to 6.4 cm with possible intratesticular abscesses. Correlation with same-day scrotal ultrasound recommended. 2. Subtotal colectomy with right lower quadrant ileostomy. 3. Bowel containing parastomal and midline ventral abdominal wall hernias without obstruction. 4. Left nephrolithiasis. 5. Additional findings as above. ACT 112: Negative or not required by law. The above report was generated using voice recognition software. It may contain grammatical, syntax or spelling errors. Electronically signed by: Reilly Conroy M.D. 09/24/2022 9:16 AM Chest X-Ray 09/26/22 17:12 SINGLE VIEW CHEST CLINICAL HISTORY: Hypoxia FINDINGS: An AP, portable, upright chest radiograph is compared to study dated 05/21/2022. The patient is status post midline sternotomy. The heart is enlarged. There is prominence of the pulmonary vascular. Scarring/atelectasis is noted at the lung bases. The lungs and pleural spaces are otherwise clear. No large pleural effusion or pneumothorax is seen. The skeletal structures appear osteopenic. The bony thorax is grossly intact. IMPRESSION: 1. Cardiomegaly with prominence of the pulmonary vasculature. Correlate clinically for evidence of fluid overload/mild congestive change. 2. No airspace consolidation or large pleural effusion is identified. ACT 112: Negative or not required by law. Electronically signed by: Paul Zamarripa M.D. 09/26/2022 5:58 PM Medications Administered Current Inpatient Medications Acetaminophen (Acetaminophen 325 Mg Tab) 650 mg PO Q4H PRN PRN Reason: Pain or Fever Stop: 10/24/22 11:20 Allopurinol (Allopurinol 300 Mg Tab) 300 mg PO QAM [facility] Stop: 10/24/22 11:20 Last Admin: 09/27/22 07:49 Dose: 300 mg Ascorbic Acid (Ascorbic Acid 500 Mg Tab) 500 mg PO DAILY [facility]UDIA Stop: 10/24/22 11:20 Last Admin: 09/27/22 07:49 Dose: 500 mg Betamethasone/Clotrimazole (Clotrimazole/Betamethasone Cr 15 Gm Tube) 1 appln EXT BID PRN PRN Reason: affected area Stop: 10/24/22 11:20 Carvedilol (Carvedilol 6.25 Mg Tab) 6.25 mg PO BID CLAUDIA Stop: 10/24/22 11:20 Last Admin: 09/27/22 07:48 Dose: 6.25 mg Dextrose (Dextrose 50% 50 Ml Syringe) 25 - 50 ml IV UD PRN; Protocol PRN Reason: Hypoglycemia Protocol Stop: 10/24/22 11:44 Famotidine (Famotidine 40 Mg Tablet) 40 mg PO QAM CLAUDIA Stop: 10/24/22 11:20 Last Admin: 09/27/22 07:49 Dose: 40 mg Gabapentin (Gabapentin 300 Mg Cap) 300 mg PO BID CLAUDIA Stop: 10/24/22 11:20 Last Admin: 09/27/22 07:48 Dose: 300 mg Glucagon (Glucagon For Inj 1 Mg Vial) 1 mg IM UD PRN; Protocol PRN Reason: Hypoglycemia Protocol Stop: 10/24/22 11:44 Glucose (Glucose 40% Gel 15 Gm Tube) 15 - 30 gm PO UD PRN; Protocol PRN Reason: Hypoglycemia Protocol Stop: 10/24/22 11:44 Glucose (Glucose 10 Tab/Tube) 4 - 8 tab PO UD PRN; Protocol PRN Reason: Hypoglycemia Protocol Stop: 10/24/22 11:44 Caspofungin 50 mg/ Sodium (Chloride) 260 mls @ 260 mls/hr IV DAILY CLAUDIA; Protocol Stop: 10/05/22 08:59 Last Admin: 09/27/22 07:49 Dose: 260 mls/hr Ceftriaxone Sodium 2,000 mg/ (Dextrose) 70 mls @ 100 mls/hr IV Q24H CLAUDIA; Protocol Stop: 10/06/22 07:59 Last Admin: 09/27/22 07:48 Dose: 100 mls/hr Insulin Aspart (Insulin Aspart Per Unit) 0 units SC ACHS CLAUDIA Stop: 10/24/22 11:29 Last Admin: 09/26/22 20:40 Dose: 7 units Insulin Glargine (Lantus Per Unit Charge) 65 units SQ BID CLAUDIA; Protocol Stop: 10/26/22 20:59 Last Admin: 09/26/22 20:40 Dose: 65 units Lactobacillus Acidophilus (Advanced Probiotic 1250 Mg Capsule) 2 cap PO DAILY CLAUDIA Stop: 10/24/22 11:20 Last Admin: 09/27/22 07:49 Dose: 2 cap Miscellaneous (Carbohydrates For Hypoglycemia ) 15 - 30 gm PO UD PRN PRN Reason: Hypoglycemia Treatment Stop: 10/24/22 11:44 Nitroglycerin (Nitroglycerin Sl 0.4 Mg/Tab Tab) 0.4 mg SL UD PRN PRN Reason: Chest Pain Stop: 10/24/22 11:20 Ondansetron HCl (Ondansetron Inj 2 Mg/Ml 2 Ml Vial) 4 mg IV Q6H PRN PRN Reason: Nausea Stop: 10/24/22 11:20 Last Admin: 09/25/22 08:52 Dose: 4 mg Oxycodone HCl (Oxycodone Hcl Ir 5 Mg Tab (Immediate Release)) 15 mg PO Q6H PRN PRN Reason: Pain Stop: 10/08/22 18:59 Last Admin: 09/27/22 06:41 Dose: 15 mg Vitamin D (Cholecalciferol 5,000 Units 125 Mcg Tab) 5,000 units PO DAILY CLAUDIA Stop: 10/24/22 11:20 Last Admin: 09/27/22 07:49 Dose: 5,000 units
--- NOTE | 2022-09-27 08:44 | Urology Progress Note ---
Date of Service September 27, 2022 Assessment & Plan (1) Abscess of scrotum: Plan 52-year-old wheelchair-bound male who is status post scrotal incision and drainage of abscess on 09/24/2022 Physical exam nonconcerning today. Packing was removed and replaced. Continue daily dressing changes, wet-to-dry. Agree with wound consult Scrotal abscess culture prelim E. coli, agree with caspofungin for urine and ceftriaxone. ID consult pending Maintain Velazquez catheter to avoid incontinence leaking into scrotal wound. Can remove this just prior to discharge. INR remains elevated, continue to hold Coumadin until INR gets into therapeutic range Urology to follow Admission and Anticipated Discharge Date Admission Date: September 24, 2022 Subjective No acute issues overnight. Afebrile with stable vitals. Labs stable, creatinine downtrending, INR downtrending. Scrotal culture grew out E. coli currently on ceftriaxone. Patient denies any issues. 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 Testicles descended bilater ally. Anterior le ft-sided scrotal i ncision clean dry intact and packing removed. No area s of crepitus or c oncern for recurre nce of abscess. I nduration and eryt aidan is consistent with abscess. No crepitus of remai nder of scrotum or perineum. Wound improving overall. Skin: Warm, dry, no rashes noted Results & Data ([facility]) Vital Signs (Past 12 Hours) Vital Signs Temp Pulse Pulse Pulse Resp BP Pulse Ox 09/27/22 07:03 36.7 C 71 12 138/83 95 09/27/22 03:10 36.8 C 75 18 165/75 H 98 09/27/22 00:40 77 09/26/22 22:32 36.6 C 81 18 126/64 95 O2 Del Method O2 Flow Rate 09/27/22 07:03 Room Air 09/27/22 03:10 Nasal Cannula 09/27/22 00:40 09/26/22 22:32 Nasal Cannula 2 PG Care Time/CCT Total # of Minutes Spent Total Time Spent with Patient: Total time spent is greater than 50% in coordination of care (as documented) at patient's floor/unit and/or counseling patient: Coding Level of Care Code 03359 SUB INP/OBS CARE 2/35MIN Diagnoses Abscess of scrotum N49.2
[2022-09-27] MEDS: INSULIN ASPART PER UNIT SC SCH ×4 (08:45→20:37)
[2022-09-27] MEDS: LANTUS PER UNIT CHARGE SQ SCH ×2 (08:46→20:58)
--- NOTE | 2022-09-27 17:45 | Hospitalist Progress Note ---
Date of Service September 27, 2022 Assessment & Plan (1) Scrotal abscess: Plan: Now s/p I & D of abscess by [facility] Urology Dr Richardson. Appreciate his assistance. Culture grew e.coli - sensitive to rocephin amongst others Also grew Yeast not Taylor from wound culture BCxs NGTD No fevers, no leukocytosis Appreciate Urology management Appreciate ID consult--> add on po Flagyl to IV ceftraiaxone and complete a 14 day course-last day of tx 10/07 -continue IV Caspofungin for Yeast-asked micro to send out sensitivities on Yeast -cont oxy prn -no further IV dilaudid due to confusion -continue scrotal support -per Dr Richardson keep pike for now, he is doing daily packing changes -needs f/u testicular US in 1 month to ensure no malignancy given abnormal findings on US here which could just be from infection (2) Catheter-associated urinary tract infection: Plan: Had visit to [facility] clinic on 09/19/22. Had cystoscopy with ureteral stent removal during that time. Pike placed during that visit. Pike then removed on 09/21/22 at his home. Urine cx from [facility] on 09/19/22 grew e.coli sensitive to all abx except fluoroquinolones & amox/amox-clavulanate. Urine cx here with small amount of GNR as well as non taylor albicans yeast. He has had infections with taylor glabrata in the past. Cont rocephin. caspofungin does not penetrate urine but this is likely a colonizer as per my d/w ID (3) JUAREZ (acute kidney injury): Plan: 2nd to UTI, scrotal infection Can't rule out ATN but less likely. Presenting Cr 1.6 and now improving to 1.5 Baseline about 1. IVFs now stopped repeat BMP am (4) Type 2 diabetes mellitus, uncontrolled: Plan: Toujeo converted to lantus. BSGs still remain uncontrolled. continue lantus to 65 units BID. cont Novolog correction factor to 9 and carb ratio to 1:3. Goal range 120-150 HbA1C 9.5% will obtain DM education consult while here (5) Celiac disease: Plan: gluten-free diet (6) Diastolic congestive heart failure: Plan: history of such he is not on standing diuretics at home he was initially volume contracted upon presentation received IV fluids cxr obtained due to NC O2 requirement (usually is not on NC O2 at home) ?pulmonary edema on cxr? BNP mildly elevated hold off on diuretics due to resolving JUAREZ (7) Hirschsprung's disease: Plan: s/p subtotal colectomy with ileostomy creation no issues (8) Pulmonary emboli: Plan: history of such; on chronic coumadin therapy. INR now down to 3.6 cont to hold coumadin. repeat INR am. 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 (10) Benign essential hypertension: Plan: cont coreg BID (11) Coronary artery disease: Plan: cont coreg uncertain why he is not on asa or statin therapy chronically no ischemic symptoms at this time (12) History of stroke: Plan: continue chronic coumadin (13) Morbid obesity: Plan: BMI 45 (14) History of endocarditis: Plan: noted s/p mitral valve repair s/p aortic root repair follow blood cultures while here but thus far negative (15) S/P ileostomy: Plan: no issues at this time 2nd to Hirschsprung's disease (16) Chronic pain syndrome: Plan: continue oxycodone prn PDMP shows every 30 day refills on oxycodone 30mg tablets on previous hospital stays the 30mg tabs often led to sedation thus, I cut dose in 1/2 to 15mg prn he still seems sleepy even with this no dose increase today (17) ANIBAL (obstructive sleep apnea): Plan: home CPAP (or BIPAP) unit is here I spoke with respiratory and they will set him up with this for tonight if home unit is not functional then use hospital-issued (18) Pulmonary hypertension: Plan: could contribute to NC O2 requirement (19) Hypoxia: Plan: 2nd to pulm edema? 2nd to obesity-hypoventilation syndrome in setting of current narcotic usage? pulmonary HTN? combination of factors? cont NC O2 follow o2 sats Plan Dispo-continued stay, plan for home with IV Rocephin and Caspofungin hopefully tomorrow. WIll need peripheral US-guided line Admission and Anticipated Discharge Date Admission Date: September 24, 2022 Subjective Pt having pain in scrotum. No other complaints. Review of Systems Review of Systems: All systems reviewed & are unremarkable except as noted in HPI & below Physical Exam Constitutional: WD/WN, vitals as above Eyes: + anicteric sclerae Respiratory: normal respiratory effort, lungs clear to auscultation Cardiovascular: Rate/Rhythm: regular rate and regular rhythm Gastrointestinal (Abdomen): Inspection/Auscultation: + abdomen abnormal to inspection (colostomy in place) Percussion/Palpation: abdomen soft; abdomen nontender Results & Data Results & Data ([facility]) Vital Signs (Past 12 Hours) Vital Signs Temp Pulse Pulse Resp BP Pulse Ox O2 Del Method 09/27/22 15:16 71 09/27/22 14:56 36.4 C L 71 18 148/82 H 94 Room Air 09/27/22 11:04 36.9 C 71 14 108/77 97 Room Air 09/27/22 09:32 71 09/27/22 07:03 36.7 C 71 12 138/83 95 Room Air Laboratory Results CBC, INR, and BMP all reviewed BCxs NGTD Wound cx E. coli and Yeast not Taylor PG Care Time/CCT Total # of Minutes Spent Total Time Spent with Patient: Total time spent is greater than 50% in coordination of care (as documented) at patient's floor/unit and/or counseling patient: Coding Level of Care Code 76373 SUB INP/OBS CARE 235MIN Diagnoses Scrotal abscess N49.2 Catheter-associated urinary tract infection T83.511A; N39.0 JUAREZ (acute kidney injury) N17.9 Type 2 diabetes mellitus, uncontrolled E11.65 Celiac disease K90.0 Diastolic congestive heart failure I50.30 Hirschsprung's disease Q43.1 Pulmonary emboli I26.99 Paraplegia G82.20 Benign essential hypertension I10 Coronary artery disease I25.10 Coronary Disease-Associated Artery/Lesion type: [place] artery [place] vs. transplanted heart: wrangell heart Associated angina: without angina History of stroke Z86.73 Morbid obesity E66.01 History of endocarditis Z86.79 S/P ileostomy Z93.2 Chronic pain syndrome G89.4 ANIBAL (obstructive sleep apnea) G47.33 Pulmonary hypertension I27.20 Hypoxia R09.02 (1) Coronary artery disease Coronary Disease-Associated Artery/Lesion type: [place] artery [place] vs. transplanted heart: wr[place]ell heart Associated angina: without angina Qualified Code(s): I25.10 - Atherosclerotic heart disease of wrangell coronary artery without angina pectoris
[2022-09-27] MEDS: metroNIDAZOLE 500 MG TAB PO SCH (21:02)
[2022-09-28] MEDS: oxyCODONE HCL IR 5 MG TAB (IMMEDIATE RELEASE) PO PRN ×2 (01:15→07:15)
[2022-09-28 06:39] LABS: Basophils # (auto) 0.05 K/uL (0-0.2); Basophils % (auto) 0.5 %; Eosinophils # (auto) 0.34 K/uL (0-0.50); Eosinophils % (auto) 3.2 %; Hematocrit (blood only) 36.5 % (42.0-52.0); Hemoglobin 11.5 g/dl (14.0-18.0); Immature Granulocytes # (auto) 0.05 K/uL (0.01-0.20); Immature Granulocytes % (auto) 0.5 %; Lymphocytes # (auto) 1.27 K/uL (1.2-3.4); Mean Corpuscular Hemoglobin 29.1 pg (25.0-34.0); Mean Corpuscular Hgb Conc 31.5 g/dL (32.0-36.0); Mean Corpuscular Volume 92.4 fL (80.0-100.0); Mean Platelet Volume 9.7 fL (9.4-12.4); Monocytes # (auto) 0.39 K/uL (0.11-0.59); Monocytes % (auto) 3.7 %; Neutrophils # (auto) 8.49 K/uL (1.40-6.50); Neutrophils % (auto) 80.1 %; Platelet Count 269 K/uL (130-400); RDW Standard Deviation 54.6 fL (36.4-46.3); Red Blood Count 3.95 M/uL (4.70-6.10); White Blood Count 10.59 K/ul (4.8-10.8)
[2022-09-28 07:06] LABS: BUN Creatinine Ratio 12.3 (10-20); Calcium 9.5 mg/dl (8.5-10.1); Est GFR (African American) 59.6 ml/min; Est GFR (Non-African American) 51.4 ml/min; Potassium 3.5 mmol/L (3.5-5.1)
[2022-09-28 07:17] LABS: INR 2.5 (0.9-1.1); Prothrombin Time 25.7 Seconds (9.0-12.0)
[2022-09-28] MEDS: GABAPENTIN 300 MG CAP PO SCH (08:34)
[2022-09-28] MEDS: metroNIDAZOLE 500 MG TAB PO SCH (08:34)
[2022-09-28] MEDS: allopurinoL 300 MG TAB PO SCH (08:34)
[2022-09-28] MEDS: CHOLECALCIFEROL 5,000 UNITS 125 MCG TAB PO SCH (08:34)
[2022-09-28] MEDS: FAMOTIDINE 40 MG TABLET PO SCH (08:34)
[2022-09-28] MEDS: ASCORBIC ACID 500 MG TAB PO SCH (08:34)
[2022-09-28] MEDS: ADVANCED PROBIOTIC 1250 MG CAPSULE PO SCH (08:34)
[2022-09-28] MEDS: carvediloL 6.25 MG TAB PO SCH (08:34)
[2022-09-28] MEDS: cefTRIAXone SODIUM 2,000 MG in DEXTROSE 5% 50 ML IV SCH (08:34)
[2022-09-28] MEDS: INSULIN ASPART PER UNIT SC SCH (08:46)
[2022-09-28] MEDS: LANTUS PER UNIT CHARGE SQ SCH (08:47)
[2022-09-28] MEDS ORDERED: CASPOFUNGIN 50 MG in SODIUM CHLORIDE 0.9% 250 ML IV SCH (09:00)
--- NOTE | 2022-09-28 10:29 | Infectious Disease Progress Nt ---
Date of Service September 28, 2022 Assessment & Plan (1) Scrotal abscess: (2) Catheter-associated urinary tract infection: (3) CKD (chronic kidney disease) stage 3, GFR 30-59 ml/min: Plan 52 yo M with h/o Hirschsprung's disease with ileostomy, T2DM, CAD s/p CABG and stents, past h/o Hepatitis C, h/o CVA with paraplegia and chronic pike, ANIBAL, dHF, PE / DVT on coumadin, CVA, HTN, endocarditis s/p aortic root repair and mitral valve repair, recurrent UTIs with nephrolithiasis, past h/o IV drug abuse, and cervical spine stenosis s/p c-spine surgery admitted to [facility] on 09/24 for scrotal swelling. Infectious Diseases has been consulted for scrotal abscess. Patients swelling started approximately a few weeks [employer]. He was initially treated with Ciprofloxacin by his PCP. He was then seen by Urology at [facility] for ureteral stent removal. He was changed from Ciprofloxacin to cefdinir. However swelling/redness worsened. On 09/24 admission, he was afebrile, BP stable. Initial labs showd WBC 16.19, CT showed non obstructing urine L kidney calculus 4mm. Bladder wall thickening. Multilocular scrotal abscess measures up to approximately 6.4 cm. Possible associated intratesticular abscesses. On 09/24 he underwent I+D with Dr. Richardson. OR notable for 5 to 6 cm fluctuant anterior abscess overlying the left testicle. Incised and loculations broken up. Fluid sent for culture. Urethra and testicle uninvolved. Notably no communication between catheter and abscess. MICRO 2/ UA 2+ blood 2+LE, >30 WBcs, budding yeast. Ucx growing Yeast not Taylor albicans/dub, >100K, GNB 7, 000 not identified. 2/ Blood cultures are NGTD 2/ Wound culture growing Ecoli S Amox/Clav, Cefepime, Ceftriaxone, Ertapenem, Piptazo, Bactrim. ABX Vancomycin 2/ Daptomycin 2/4 Zosyn 2/-2/6 Caspofungin 2/4 - Ceftriaxone 09/26- Discussion: 52 yo M with with scrotal abscess previously on Ciprofloxacin and cefdinir. He is now s/p I+D with OR culture growth of Ecoli. He is appropriately on Ceftriaxone. I would add Flagyl for anaerobe coverage. He is not bacteremic and now has source control Recommendations: -C/W Ceftriaxone 2G IV daily -Would add flagyl 500mg po TID to cover anaerobes -Given no yeast growth in wound culture, would dc Caspofungin as echinocandins have poor bladder update. -Given blood cultures are negative and source control achieved anticipate transition to po antibiotics when stable for discharge Thank you for this consultation, Infectious Diseases will follow with you. Will D/w Primary team Radha Cleaning MD Department of Infectious Diseases [facility] Admission and Anticipated Discharge Date Admission Date: September 24, 2022 Subjective Subsequent visit was provided via telemedicine using two-way real-time interactive telecommunication between the patient and the telemedicine provider. For the duration of the visit, the provider was performing the assessment from a different facility than the patient. This includesuse of bluetooth stethoscope forauscultationperformed by the telepresenter that the telemedicine provider can hear if described in the physical exam. Basket Weaver contact information: Please call [facility] . (Phone Number For Physician Use Only) After establishing a telemedicine visit, patient was: Patient was verified with two unique identifiers, Patient/authorized rep acknowledged consent and understanding and Gave permission to continue telehealth session Time Spent with Patient: Subsequent => 35 min Results & Data ([facility]) Vital Signs (Past 12 Hours) Vital Signs Temp Pulse Pulse Pulse Resp BP Pulse Ox 09/28/22 09:00 75 09/28/22 09:00 09/28/22 07:08 36.7 C 74 18 144/68 H 100 09/28/22 02:24 36.7 C 73 18 164/80 H 99 09/28/22 00:36 71 09/27/22 22:33 36.8 C 72 18 118/72 100 O2 Del Method O2 Flow Rate 09/28/22 09:00 09/28/22 09:00 Room Air 09/28/22 07:08 Nasal Cannula 3.0 09/28/22 02:24 Nasal Cannula 09/28/22 00:36 09/27/22 22:33 Nasal Cannula Laboratory Results Laboratory Results - last 48 hr 09/26/22 09/26/22 09/26/22 11:13 16:26 20:11 WBC RBC Hgb Hct MCV MCH MCHC RDW Std Deviation RDW Coeff of Lorenzo Plt Count MPV Immature Gran % (Auto) Neut % (Auto) Lymph % (Auto) Stanley % (Auto) Eos % (Auto) Baso % (Auto) Neut # (Auto) Lymph # (Auto) Stanley # (Auto) Eos # (Auto) Baso # (Auto) Immature Gran # (Auto) PT INR Sodium Potassium Chloride Carbon Dioxide Anion Gap BUN Creatinine Est Cr Clr Drug Dosing Est GFR ( Amer) Est GFR (Non-Af Amer) BUN/Creatinine Ratio Glucose POC Glucose 162 H 170 H 205 H Calcium B-Natriuretic Peptide 09/27/22 09/27/22 09/27/22 06:39 06:39 06:39 WBC 8.72 RBC 3.78 L Hgb 10.9 L Hct 35.5 L MCV 93.9 MCH 28.8 MCHC 30.7 L RDW Std Deviation 55.8 H RDW Coeff of Lorenzo 16.1 H Plt Count 214 MPV 9.6 Immature Gran % (Auto) 0.6 Neut % (Auto) 75.4 Lymph % (Auto) 15.4 Stanley % (Auto) 4.1 Eos % (Auto) 3.9 Baso % (Auto) 0.6 Neut # (Auto) 6.58 H Lymph # (Auto) 1.34 Stanley # (Auto) 0.36 Eos # (Auto) 0.34 Baso # (Auto) 0.05 Immature Gran # (Auto) 0.05 PT 35.4 H INR 3.6 H Sodium 139 Potassium 3.8 Chloride 109 H Carbon Dioxide 26 Anion Gap 4 BUN 20 Creatinine 1.51 H Est Cr Clr Drug Dosing 80.1 Est GFR ( Amer) 61.5 Est GFR (Non-Af Amer) 53.1 BUN/Creatinine Ratio 13.2 Glucose 130 H POC Glucose Calcium 9.0 B-Natriuretic Peptide 09/27/22 09/27/22 09/27/22 06:39 07:03 11:03 WBC RBC Hgb Hct MCV MCH MCHC RDW Std Deviation RDW Coeff of Lorenzo Plt Count MPV Immature Gran % (Auto) Neut % (Auto) Lymph % (Auto) Stanley % (Auto) Eos % (Auto) Baso % (Auto) Neut # (Auto) Lymph # (Auto) Stanley # (Auto) Eos # (Auto) Baso # (Auto) Immature Gran # (Auto) PT INR Sodium Potassium Chloride Carbon Dioxide Anion Gap BUN Creatinine Est Cr Clr Drug Dosing Est GFR ( Amer) Est GFR (Non-Af Amer) BUN/Creatinine Ratio Glucose POC Glucose 132 H 173 H Calcium B-Natriuretic Peptide 223 H 09/27/22 09/27/22 09/28/22 15:53 19:58 05:49 WBC RBC Hgb Hct MCV MCH MCHC RDW Std Deviation RDW Coeff of Lorenzo Plt Count MPV Immature Gran % (Auto) Neut % (Auto) Lymph % (Auto) Stanley % (Auto) Eos % (Auto) Baso % (Auto) Neut # (Auto) Lymph # (Auto) Stanley # (Auto) Eos # (Auto) Baso # (Auto) Immature Gran # (Auto) PT 25.7 H INR 2.5 H Sodium Potassium Chloride Carbon Dioxide Anion Gap BUN Creatinine Est Cr Clr Drug Dosing Est GFR ( Amer) Est GFR (Non-Af Amer) BUN/Creatinine Ratio Glucose POC Glucose 100 H 113 H Calcium B-Natriuretic Peptide 09/28/22 09/28/22 09/28/22 05:49 05:49 07:06 WBC 10.59 RBC 3.95 L Hgb 11.5 L Hct 36.5 L MCV 92.4 MCH 29.1 MCHC 31.5 L RDW Std Deviation 54.6 H RDW Coeff of Lorenzo 16.0 H Plt Count 269 MPV 9.7 Immature Gran % (Auto) 0.5 Neut % (Auto) 80.1 Lymph % (Auto) 12.0 Stanley % (Auto) 3.7 Eos % (Auto) 3.2 Baso % (Auto) 0.5 Neut # (Auto) 8.49 H Lymph # (Auto) 1.27 Stanley # (Auto) 0.39 Eos # (Auto) 0.34 Baso # (Auto) 0.05 Immature Gran # (Auto) 0.05 PT INR Sodium 138 Potassium 3.5 Chloride 108 H Carbon Dioxide 26 Anion Gap 4 BUN 19 Creatinine 1.55 H Est Cr Clr Drug Dosing 78.0 Est GFR ( Amer) 59.6 Est GFR (Non-Af Amer) 51.4 BUN/Creatinine Ratio 12.3 Glucose 89 POC Glucose 100 H Calcium 9.5 B-Natriuretic Peptide Microbiology 09/24/22 09:43 Scrotum Gram Stain - Final 09/24/22 09:43 Scrotum Aerobic and Anaerobic Culture - Preliminary Escherichia coli Yeast not Taylor albicans/dub 09/24/22 03:25 Urine,Clean Catch Urine Culture - Final Yeast not Taylor albicans/dub Gram negative bacilli 09/24/22 03:15 Blood Aerobic Blood Culture - Preliminary No growth in Aerobic bottle after 48 hours. 09/24/22 03:15 Blood Anaerobic Blood Culture - Preliminary No growth in Anaerobic bottle after 48 hours. 09/24/22 03:36 Blood Aerobic Blood Culture - Preliminary No growth in Aerobic bottle after 48 hours. 09/24/22 03:36 Blood Anaerobic Blood Culture - Preliminary No growth in Anaerobic bottle after 48 hours. Medications Administered Current Inpatient Medications Acetaminophen (Acetaminophen 325 Mg Tab) 650 mg PO Q4H PRN PRN Reason: Pain or Fever Stop: 10/24/22 11:20 Allopurinol (Allopurinol 300 Mg Tab) 300 mg PO QAM [facility] Stop: 10/24/22 11:20 Last Admin: 09/28/22 08:34 Dose: 300 mg Ascorbic Acid (Ascorbic Acid 500 Mg Tab) 500 mg PO DAILY [facility] Stop: 10/24/22 11:20 Last Admin: 09/28/22 08:34 Dose: 500 mg Betamethasone/Clotrimazole (Clotrimazole/Betamethasone Cr 15 Gm Tube) 1 appln EXT BID PRN PRN Reason: affected area Stop: 10/24/22 11:20 Carvedilol (Carvedilol 6.25 Mg Tab) 6.25 mg PO BID [facility]UDIA Stop: 10/24/22 11:20 Last Admin: 09/28/22 08:34 Dose: 6.25 mg Dextrose (Dextrose 50% 50 Ml Syringe) 25 - 50 ml IV UD PRN; Protocol PRN Reason: Hypoglycemia Protocol Stop: 10/24/22 11:44 Famotidine (Famotidine 40 Mg Tablet) 40 mg PO QAM [facility] Stop: 10/24/22 11:20 Last Admin: 09/28/22 08:34 Dose: 40 mg Gabapentin (Gabapentin 300 Mg Cap) 300 mg PO BID CLAUDIA Stop: 10/24/22 11:20 Last Admin: 09/28/22 08:34 Dose: 300 mg Glucagon (Glucagon For Inj 1 Mg Vial) 1 mg IM UD PRN; Protocol PRN Reason: Hypoglycemia Protocol Stop: 10/24/22 11:44 Glucose (Glucose 40% Gel 15 Gm Tube) 15 - 30 gm PO UD PRN; Protocol PRN Reason: Hypoglycemia Protocol Stop: 10/24/22 11:44 Glucose (Glucose 10 Tab/Tube) 4 - 8 tab PO UD PRN; Protocol PRN Reason: Hypoglycemia Protocol Stop: 10/24/22 11:44 Ceftriaxone Sodium 2,000 mg/ (Dextrose) 70 mls @ 100 mls/hr IV Q24H [facility]; Protocol Stop: 10/06/22 07:59 Last Infusion: 09/28/22 09:20 Dose: Infused Caspofungin 50 mg/ Sodium (Chloride) 260 mls @ 260 mls/hr IV QAM [facility]; Protocol Stop: 10/05/22 08:59 Last Infusion: 09/28/22 10:21 Dose: Infused Insulin Aspart (Insulin Aspart Per Unit) 0 units SC ACHS [facility] Stop: 10/24/22 11:29 Last Admin: 09/28/22 08:46 Dose: 14 units Insulin Glargine (Lantus Per Unit Charge) 65 units SQ BID [facility]; Protocol Stop: 10/26/22 20:59 Last Admin: 09/28/22 08:47 Dose: 65 units Lactobacillus Acidophilus (Advanced Probiotic 1250 Mg Capsule) 2 cap PO DAILY [facility] Stop: 10/24/22 11:20 Last Admin: 09/28/22 08:34 Dose: 2 cap Metronidazole (Metronidazole 500 Mg Tab) 500 mg PO TID [facility] Stop: 10/04/22 20:59 Last Admin: 09/28/22 08:34 Dose: 500 mg Miscellaneous (Carbohydrates For Hypoglycemia ) 15 - 30 gm PO UD PRN PRN Reason: Hypoglycemia Treatment Stop: 10/24/22 11:44 Nitroglycerin (Nitroglycerin Sl 0.4 Mg/Tab Tab) 0.4 mg SL UD PRN PRN Reason: Chest Pain Stop: 10/24/22 11:20 Ondansetron HCl (Ondansetron Inj 2 Mg/Ml 2 Ml Vial) 4 mg IV Q6H PRN PRN Reason: Nausea Stop: 10/24/22 11:20 Last Admin: 09/25/22 08:52 Dose: 4 mg Oxycodone HCl (Oxycodone Hcl Ir 5 Mg Tab (Immediate Release)) 15 mg PO Q6H PRN PRN Reason: Pain Stop: 10/08/22 18:59 Last Admin: 09/28/22 07:15 Dose: 15 mg Vitamin D (Cholecalciferol 5,000 Units 125 Mcg Tab) 5,000 units PO DAILY [facility] Stop: 10/24/22 11:20 Last Admin: 09/28/22 08:34 Dose: 5,000 units Warfarin Sodium (Warfarin Sod 2.5 Mg Tab) 0 mg PO [email or web address] [facility] Stop: 10/29/22 15:59 Warfarin Sodium (Warfarin Sod 5 Mg Tab) 5 mg PO [email or web address] [facility] Stop: 10/28/22 15:59
--- NOTE | 2022-09-28 11:33 | Discharge Summary ---
Date of Service September 28, 2022 Admission HPI Per Admitting Provider 52yo male - well known to the hospitalist service - with h/o Hirschsprung's disease with chronic ileostomy, T2DM, CAD s/p CABG and stents, past h/o Hepatitis C, acquired paraplegia, ANIBAL, chronic diastolic CHF, pulmonary emboli / DVT on chronic coumadin, CVA, HTN, endocarditis, recurrent UTIs, past h/o IV drug abuse, and cervical spine stenosis s/p c[place]spine [place] [facility] [place]. Patient recently underwent surgery at [facility] about 2 weeks ago for left-sided kidney stones with ureteral stent placement. He went back to [facility] this past Monday, 09/19, for stent retrieval. Urine cx was sent from that visit and grew e.coli, sensitivities unknown, but he was called in a prescription for cefdinir on 09/21 for such. He states the scrotum was swollen on Monday at his [facility] visit but not to the degree it is now. Over the last few days the scrotal swelling has worsened and now it is very painful to touch. He has had no fevers, chills, or lack of appetite. He was sent home on Monday with a pike catheter, but it was removed on Thursday 09/21 by his home health nurse. He has been able to spontaneously void without difficulty and denies dysuria and denies foul-smelling urine. BSGs over the last few days have been very high with some readings 400+. He gave himself 80 units of novolog at home last pm for meal coverage and still his BSGs have been running high. In addition to the above, he reports he has a kidney cyst and is scheduled to have biopsy of such later this month in [place]. Dr Bernardo Richardson from [facility] saw patient in consult and will take Mr Grajeda to the OR today for I/D of the scrotal abscess that was confirmed on scrotal u/s. Patient reports compliance with his BIPAP and his son can bring it to the hospital for use here. Principal Diagnosis Scrotal abscess Discharge Exam Constitutional WD/WN, vitals as above Eyes + anicteric sclerae Respiratory normal respiratory effort, lungs clear to auscultation Cardiovascular Rate/Rhythm: regular rate and regular rhythm Gastrointestinal (Abdomen) Inspection/Auscultation: + abdomen abnormal to inspection (colostomy in place) Percussion/Palpation: abdomen soft; abdomen nontender Discharge Data Allergies Allergy/AdvReac Type Severity Reaction Status Date / Time sulfamethoxazole AdvReac Unknown "Levels Verified 09/24/22 02:35 [From Bactrim] were up"-per [facility] trimethoprim [From Bactrim] AdvReac Unknown "Levels Verified 09/24/22 02:35 were up"-per [facility] Consultations 09/24/22 07:32 ED Decision to Admit Stat 09/24/22 11:21 Consult Urology Routine 09/26/22 17:12 Consult Infectious Diseases Routine Procedures Performed Operation Date: 09/24/22 09:30 Actual Procedures p Scrotal Incision and Drainage - Bernardo Richardson MD Ordered Studies 09/24/22 02:46 CT pelvis w/IV con only Urgent 09/24/22 06:33 US scrotum/testicle Stat Diabetes Follow up Diabetes Follow-up Needed for HgbA1c >9% Hospital Course (1) Scrotal abscess: Now s/p I & D of abscess by [facility] Dr Richardson. Appreciate his assistance. Culture grew e.coli - sensitive to rocephin amongst others Also grew Yeast not Edith from wound culture-sensitivities pending at time of discharge BCxs NGTD No fevers, no leukocytosis Appreciate Urology management Appreciate ID consult--> add on po Flagyl to IV ceftriaxone and complete 7 more days of treatment after discharge -last day of tx 10/05 -continue IV Caspofungin for Yeast-asked micro to send out sensitivities on Yeast -cont oxy prn -continue scrotal support - keep pike until seen by Urology in follow up in 1-2 weeks -continue doing daily packing changes -needs f/u testicular US in 1 month to ensure no malignancy given abnormal findings on US here which could just be from infection -check CBC, CMP in 5 days with home health (2) Catheter-associated urinary tract infection: Had visit to [facility] clinic on 09/19/22. Had cystoscopy with ureteral stent removal during that time. Pike placed during that visit. Pike then removed on 09/21/22 at his home. Urine cx from [facility] on 09/19/22 grew e.coli sensitive to all abx except fluoroquinolones & amox/amox-clavulanate. Urine cx here with small amount of GNR as well as non edith albicans yeast. He has had infections with edith glabrata in the past. Cont rocephin. caspofungin does not penetrate urine but this is likely a colonizer of the bladder as per my d/w ID (3) JUAREZ (acute kidney injury): 2nd to UTI, scrotal infection Can't rule out ATN but less likely. Presenting Cr 1.6 and now improving to 1.5 and stable from previous Baseline about 1. -follow BMP in 5 days as outpt (4) Type 2 diabetes mellitus, uncontrolled: continue Toujeo and Novolog at home Uncontrolled with hyperglycemia HbA1C 9.5% f/u with PCP (5) Celiac disease: gluten-free diet (6) Diastolic congestive heart failure: history of such he is not on standing diuretics at home he was initially volume contracted upon presentation received IV fluids cxr obtained due to NC O2 requirement (usually is not on NC O2 at home) ?pulmonary edema on cxr? BNP mildly elevated hold off on diuretics due to resolving JUAREZ (7) Hirschsprung's disease: s/p subtotal colectomy with ileostomy creation no issues (8) Pulmonary emboli: history of such; on chronic coumadin therapy. INR now therapeutic and can restart coumadin on day of discharge follow INR as outpt (9) Paraplegia: 2nd to previous spinal cord injury from septic emboli from endocarditis? (10) Benign essential hypertension: cont coreg BID (11) Coronary artery disease: cont coreg uncertain why he is not on asa or statin therapy chronically no ischemic symptoms at this time f/u with PCP (12) History of stroke: continue chronic coumadin (13) Morbid obesity: BMI 45 (14) History of endocarditis: noted s/p mitral valve repair s/p aortic root repair follow blood cultures while here but thus far negative (15) S/P ileostomy: no issues at this time 2nd to Hirschsprung's disease (16) Chronic pain syndrome: continue oxycodone prn PDMP shows every 30 day refills on oxycodone 30mg tablets on previous hospital stays the 30mg tabs often led to sedation thus, I cut dose in 1/2 to 15mg prn he still seems sleepy even with this no dose increase today -f/u with PCP (17) ANIBAL (obstructive sleep apnea): continue home CPAP (or BIPAP) (18) Pulmonary hypertension: could contribute to NC O2 requirement (19) Hypoxia: 2nd to pulm edema? 2nd to obesity-hypoventilation syndrome in setting of current narcotic usage? pulmonary HTN? combination of factors? now resolved Plan Dispo-dc to home with IV Rocephin and Caspofungin, po Flagyl today-had peripheral US-guided line placed on 09/28 which can remain inplace for 4 weeks if needed but likely can be discontinued after 1 week Home Health Attestation I certify that this patient is under my care and that I, or a physicians assistant in nursing working with me, had a face to-face encounter that meets the home health [id number] encounter requirements with this patient. The encounter with the patient was in whole, or in part, for the following medical condition, which is the primary reason for home health care (list medical condition): Resumption of care, IV antibiotics I certify that, based on my findings, the following services are medically necessary home health services: My clinical findings support the need for the above services because: Caregiver Instruct Med Mgmt, Safety, Disease Process, Signs to Report Medication Compliance and Monitoring Effective of New Medications S/S to Report to Provider Teach on Disease Management and Interventions Vital Signs Weekly Labs Further, I certify that my clinical findings support that this patient is homebound (i.e. absences from home require considerable and taxing effort and are for medical reasons or buddhist services or infrequently or of short duration when for other reasons) because: Chair Bound; Requires Transfer Assist Certification for Home Health Services: Based on the above findings, I certify that this patient is confined to the home and needs intermittent long-term care, physical therapy and/or speech therapy or continues to need occupational therapy. The patient is under my care, and I have initiated the establishment of the plan of care. This patient will be followed by a physician who will periodically review the plan of care. Total Time Total Time Spent Total Time Spent (In Minutes): 40 min Total Time Includes: Examination of the Patient, Discharge Planning, Medication Reconciliation and Communication With Other Providers (Urology) Discharge Plan Discharge Items Patient Disposition: Home - Home Health Services Reason For Visit: SCROTAL ABSCESS Discharge Diagnosis: Scrotal abscess Condition on Discharge: Fair Activity: Resume your previous activity Bathing Comment: Keep IV dry Exercise/Sports: As tolerated Non-emergency contact: Primary Care Provider and Urologist Call non-emergency contact if: you have any medication questions, your symptoms worsen and you have a fever Follow-up/Referrals: Demarcus Nicholson DO [Primary Care Provider] - 10/05/22 1:40 pm Bernardo Richardson MD [Physician] - (Follow up within 1-2 weeks.) Diet: Heart Healthy Addtl Attending Provider Instructions: Please continue on the IV ceftriaxone and IV Caspofungin as well as the oral metronidazole antibiotics for 7 more days. You should have a CBC and CMP drawn in 5 days through the home health with the results to be sent to your PCP. Please continue daily packing changes with home health. Follow up with the Urologist within 1-2 weeks. Please keep the Pike catheter in place until seen by Urology to trial a removal of the catheter. The final sensitivities on your wound Yeast culture were still pending at the time of discharge. Your PCP should follow up on these results when they become available. Pending Studies at Discharge: Yes (Final sensitivities on Yeast; Blood cultures- no growth to date) Stand-Alone Forms: My [facility] OpenCounter, Smoking Cessation Medications and DC Order Prescriptions: New metronidazole 500 mg Tablet 500 mg PO TID Qty: 21 0RF Continued allopurinol 300 mg tablet 300 mg PO QAM carvedilol 6.25 mg tablet 6.25 mg PO BID Qty: 60 6RF Rx Instructions: must administer with a meal/food Kerendia 10 mg tablet 10 mg PO DAILY Rx Instructions: ON HOLD PER PT Toujeo SoloStar U-300 Insulin 300 unit/mL (1.5 mL) insulin pen 50 unit subcut BID famotidine [Pepcid] 40 mg tablet 40 mg PO QAM insulin aspart U-100 [Novolog FlexPen U-100 Insulin] 100 unit/mL Insulin Pen 0 sliding scale dose SUBCUT TIDM clotrimazole-betamethasone 1-0.05 % cream 1 applic TOPICAL BID PRN (Reason: affected area) oxycodone 30 mg tablet 15 - 30 mg PO TID PRN (Reason: pain) Qty: 20 0RF warfarin 2.5 mg tablet See Rx Instructions .ROUTE .COMPLEX Rx Instructions: TAKES QPM. TAKES 2.5 MG ON , & TH., THEN 5 MG ON SUN, MON, WED, FRI, & SAT. ascorbic acid (vitamin C) [Vitamin C] 500 mg Tablet 500 mg PO DAILY cholecalciferol (vitamin D3) [Vitamin D3] 125 mcg (5,000 unit) Tablet 125 mcg PO DAILY gabapentin 300 mg capsule 300 mg PO BID Discontinued cefdinir 300 mg capsule 300 mg PO BID Rx Instructions: STARTED 09/21/22 FOR 10 DAYS. Discharge Orders: Discharge Order (Routine); Ordered 09/28/22 Ordered By: Aby Flynn/Other Patient Handouts: UTIs Understanding, Giving IV Antibiotics Dc Admission Data Admit Date/Time: 09/24/22 07:50 Attending Provider: Aby Reed Admit Provider: Sanjiv Avendano Primary Care Provider: Demarcus Nicholson Other Providers: Bernardo Richardson ; Sanjiv Avendano ; Janeth Bartlett ; James Burden ; Nataly Jiang ; Kirk Dawson ; Reanna Jacobs ; Radha Cleaning ; Tara Ayala ; Renea Ward ; Yarelis Vance Other Interventions: Discharge Summary Assessment (RN) Last Done: 09/28/22 11:16 Coding Level of Care Code HOSP INP/OBS DISCH >30 MIN Diagnoses Scrotal abscess N49.2 Catheter-associated urinary tract infection T83.511A; N39.0 JUAREZ (acute kidney injury) N17.9 Type 2 diabetes mellitus, uncontrolled E11.65 Celiac disease K90.0 Diastolic congestive heart failure I50.30 Hirschsprung's disease Q43.1 Pulmonary emboli I26.99 Paraplegia G82.20 Benign essential hypertension I10 Coronary artery disease I25.10 Coronary Disease-Associated Artery/Lesion type: [place] artery [place] vs. transplanted heart: [place] heart Associated angina: without angina History of stroke Z86.73 Morbid obesity E66.01 History of endocarditis Z86.79 S/P ileostomy Z93.2 Chronic pain syndrome G89.4 ANIBAL (obstructive sleep apnea) G47.33 Pulmonary hypertension I27.20 Hypoxia R09.02
--- NOTE | 2022-09-28 11:37 | Urology Progress Note ---
Date of Service September 28, 2022 Assessment & Plan (1) Abscess of scrotum: Plan 52-year-old wheelchair-bound male who is status post scrotal incision and drainage of abscess on 09/24/2022 He is afebrile with stable vital signs. Labs show no leukocytosis, creatinine 1.55 Scrotal packing was removed and replaced this morning at bedside. Pt tolerated well. Continue daily dressing changes, wet-to-dry. Scrotal abscess culture with E. coli and yeast not edith. ID consulted. Plan is for dc to home today with IV Rocephin and Caspofungin and PO Flagyl. Maintain Velazquez catheter to avoid incontinence leaking into scrotal wound. Will arrange outpatient follow-up with our service. Urology will sign-off. Please contact us any further questions, concerns, or changes in patient status. Admission and Anticipated Discharge Date Admission Date: September 24, 2022 Supervising Physician Co-Signing Physician Notes Discussed patient with MICHELL. Agree with plan. Subjective Patient examined at bedside this AM. Awake, resting in bed on arrival. No acute distress. Velazquez catheter intact draining clear yellow urine. Plan is for discharge home today. 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 Anterior left-sided scrotal incision clean dry intact and packing removed. No areas of crepitus or concern for recurrence of abscess. Induration and erythema is consistent with abscess. No crepitus of remainder of scrotum or perineum. Results & Data ([facility]) Vital Signs (Past 12 Hours) Vital Signs Temp Pulse Pulse Pulse Resp BP BP 09/28/22 11:16 36.7 C 74 73 18 144/68 H 119/78 09/28/22 09:00 75 09/28/22 09:00 09/28/22 07:08 36.7 C 74 18 144/68 H 09/28/22 02:24 36.7 C 73 18 164/80 H 02/08/23 00:36 71 Pulse Ox O2 Del Method O2 Flow Rate 09/28/22 11:16 100 09/28/22 09:00 09/28/22 09:00 Room Air 09/28/22 07:08 100 Nasal Cannula 3.0 09/28/22 02:24 99 Nasal Cannula 09/28/22 00:36 PG Care Time/CCT Total # of Minutes Spent Total Time Spent with Patient: Total time spent is greater than 50% in coordination of care (as documented) at patient's floor/unit and/or counseling patient: Coding Level of Care Code 57207 SUB INP/OBS CARE 2/35MIN Diagnoses Abscess of scrotum N49.2
[2022-09-28] MEDS ORDERED: WARFARIN SOD 5 MG TAB PO SCH (16:00)
[2022-09-28] MEDS ORDERED: WARFARIN SOD 2.5 MG TAB PO SCH (16:00)
[2022-09-29] MEDS ORDERED: WARFARIN SOD 2.5 MG TAB PO SCH (16:00)
== END 2022-09-28 12:38 | disposition home health service (06) | DRG 727 ==
LOC: ED 02:04 → SUATTDRO 07:50 → 2E 07:50

== ENCOUNTER 2022-12-02 15:12 | Observation (INO) ==
[2022-12-02] MEDS ORDERED: SODIUM CHLORIDE 0.9% 1000ML 1,000 ML IV ONE (15:30)
[2022-12-02] MEDS ORDERED: AZITHROMYCIN 500 MG in DEXTROSE 5% 250 ML IV STA (15:32)
[2022-12-02] MEDS ORDERED: cefTRIAXone SODIUM 2,000 MG/70 ML BAG IV STA (15:32)
--- NOTE | 2022-12-02 15:37 | Emergency Department Note ---
Impression & Plan COVID-19, Shortness of breath, Elevated troponin ED Provider Note NAME: AV LIVINGSTON AGE: 52 SEX: M : 1970 ARRIVES VIA: Ambulance INFORMANT: Patient ED PROVIDER(S): Junior Caba DO CHIEF COMPLAINT: fever and shortness of breath HPI: Patient is a 52-year-old male with a past medical history of previous IV drug abuse, bacteremia, endocarditis, pneumonia, severe sepsis, CAD, CKD, PE on Coumadin, CABG and paraplegia who presents to the ER for cough congestion and shortness of breath. Symptoms have been going on since Monday. Admits to fevers of 101-102. He notes his shortness of breath is gradually getting a little worse. He has been checking his pulse ox at home and has been running in the upper 80s intermittently. No chest pain. Denies any belly pain, nausea, vomiting, or diarrhea. No dysuria, urgency, or frequency. No new swelling of the legs. No other exacerbating or remitting factors. PAST MEDICAL HISTORY:See Below PAST SURGICAL HISTORY:See Below FAMILY HISTORY:See Below SOCIAL HISTORY:See Below HOME MEDICATIONS:See Below ALLERGIES:See Below VITALS:See Below PHYSICAL EXAMINATION: GENERAL: Sitting up in bed, alert, chronically ill-appearing with intermittent cough EYE EXAM: normal conjunctiva. OROPHARYNX: mucous membranes are moist LUNGS: Diminished bilaterally. Normal chest wall mechanics HEART: no murmurs, S1 normal and S2 normal ABDOMEN: abdomen soft, non-tender BACK: Back is symmetrical on inspection and there is no deformity, no midline tenderness, no CVA tenderness. UPPER EXTREMITIES: upper extremities are grossly normal. LOWER EXTREMITIES: Pitting edema in the lower extremities NEURO EXAM: Normal sensorium, cranial nerves II-XII grossly intact, normal speech, no gross weakness of arms. MEDICAL DECISION MAKING: Patient is a 52-year-old male who presents ER for the above-stated complaint. IV was established blood work was obtained. External records were reviewed. He was brought in as he notes he has been intermittently hypoxic at home and his upper respiratory symptoms. He has an extensive past medical history and consequently IV was established blood work was obtained. Labs show no significant leukocytosis and mild anemia 10.4 which is fairly consistent with the patient's baseline. INR was subtherapeutic at 1.4. BMP with creatinine 1.8 which appears to be fairly consistent with a new baseline. Troponin was elevated however at 41. Patient does have a previous history of normal baseline troponins. COVID was negative. He has no chest pain and he has a clear upper respiratory symptoms making this elevation in troponin not consistent with ACS but rather demand. Favor myocarditis is very unlikely. Patient was given initially upon arrival Rocephin and azithromycin for concern for possible bacterial pneumonia in the setting of fevers and upper respiratory symptoms with an extensive history of bacteremia. Patient was also given IV fluids. He was ordered Decadron after the result of the COVID testing. Again I do not think that this consistent with ACS but rather demand in the setting of a viral upper respiratory symptoms. Discussed with the hospitalist who felt initially that this patient does not need admission. After evaluation however patient was admitted. Triage Nursing notes reviewed. Limited review of prior medical records performed Vital Signs: reviewed and remarkable for HTN Differential diagnosis: Differential diagnoses includes but is not limited to pneumonia, bronchitis, COPD/Asthma exacerbation, pneumothorax, pulmonary embolism, congestive heart failure, acute coronary syndrome ER treatment provided: See below Diagnostics interpreted by me include EKG and cardiac monitoring as listed below: -Cardiac Monitoring: An order was placed for continuous cardiac monitoring. The monitor shows a rate of 80 with sinus rhythm. -ECG: Sinus rhythm rate of 89 Normal axis No PVCs QTc [address] wave changes in the inferior and lateral leads No significant change from EKG performed in September -Laboratory studies:Interpreted by me as stated above in MDM and shown below. Imaging studies: Xrays: As interpreted by me: Portable AP upright 1 view of the chest shows no pneumonia CTs show: none Consultation(s): As described in [facility] Procedures:none Critical Care: None Past Med/Surg History Medical History Celiac disease Chronic indwelling Velazquez catheter Chronic kidney disease, stage 3a follows with [facility] Coronary artery disease CABG x 1 2012-VG to LAD, multiple stents, follows with [facility] Diastolic congestive heart failure EF 55-59% Difficult airway for intubation 01/18/22 Patient unable to be intubated with Glidescope 4 - good view but unable to pass ETT, Igel #5 easily placed and worked well DM type 2 (diabetes mellitus, type 2) IDDM GI bleed 2017 requiring 3 blood transfusions, transferred to [facility] with work-up not revealing clear cause per records Gout Hepatitis C TREATED Hirschsprung's disease History of blood transfusion 2017 in setting of GI bleed History of COVID-19 05/2021- no symptoms- no hospitalization History of CVA (cerebrovascular accident) 2012-admitted [facility] History of endocarditis TREATED AT [facility]-2012 History of GI bleed History of intravenous drug abuse Hx of pulmonary embolus Hyperlipidemia Morbid obesity Paraplegia Pulmonary emboli 05/2010-unknown cause- admitted and treated at [facility] Pulmonary hypertension Sleep apnea, organic NO DEVICE AT THIS TIME, HIS MACHINE WAS INVOLVED IN RECALL Surgical History H/O aortic root repair 05/2016- [facility] H/O cervical spine surgery for severe stenosis w/ myelopathy; 05/2022 - [facility] H/O mitral valve repair UNSURE-EITHER [facility] OR [facility] Hx of CABG 2012 [facility]- DUE TO ENDOCARDITIS, single vessel per records S/P brain surgery 2013- [facility] S/P cardiac cath S/P colostomy FOLLOWS W/ [facility] S/P ileostomy S/P ureteral stent placement 08/2022 - [facility] Family History Father Cardiac disorder Hypertension Prostate cancer Diabetes Coronary heart disease COPD (chronic obstructive pulmonary disease) Pacemaker Mother Hypertension Skin cancer Dementia Social History Smoking Status: Never smoker Tobacco Type: Cigarettes Second Hand Exposure: No; Hx Alcohol Use: No Hx Substance Use: Yes Preferred Language: Mongolian Communication Ability: Effective Communication Ability Comment: NELDA SPEECH Cub Reporter Required: No Beliefs That Will Affect Care: None marital status: Single Current Living Situation: Parent Current Living Situation Comment: Lives with parents and has caregivers to come and help with ADLs current occupational status: employed 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 How many Children do You have: 2 Feels Safe at Home: Yes Assistive Devices: Hospital Bed, Mechanical Lift and Scooter/Electric Scooter Allergies Allergies Allergy/AdvReac Type Severity Reaction Status Date / Time sulfamethoxazole AdvReac Unknown "Levels Verified 10/15/22 14:57 [From Bactrim] were up"-per [facility] trimethoprim [From Bactrim] AdvReac Unknown "Levels Verified 10/15/22 14:57 were up"-per [facility] Home Meds Home Medications Medication Instructions Recorded Confirmed insulin aspart U-100 100 unit/mL 0 sliding scale dose subcut TIDM 10/08/18 12/02/22 (3 mL) subcutaneous pen (Novolog per sliding scale FlexPen U-100 Insulin aspart) famotidine 40 mg tablet (Pepcid) 40 mg PO QAM 05/27/19 12/02/22 allopurinol 300 mg tablet 300 mg PO QAM 01/23/20 12/02/22 finerenone 10 mg tablet (Kerendia) 10 mg PO DAILY 12/29/21 12/02/22 clotrimazole-betamethasone 1 1 applic topical BID PRN affected 02/24/22 12/02/22 %-0.05 % topical cream area ascorbic acid (vitamin C) 500 mg 500 mg PO DAILY 09/24/22 12/02/22 tablet (Vitamin C) cholecalciferol (vitamin D3) 125 125 mcg PO DAILY 09/24/22 12/02/22 mcg (5,000 unit) tablet (Vitamin D3) gabapentin 300 mg capsule 300 mg PO BID 09/24/22 12/02/22 warfarin 2.5 mg tablet See Rx Instructions .Route .COMPLEX 09/24/22 12/02/22 dulaglutide 0.75 mg/0.5 mL 0.75 mg subcut WK 10/15/22 12/02/22 subcutaneous pen injector (Trulicity) insulin detemir U-100 100 unit/mL 60 unit subcut BID 12/02/22 12/02/22 (3 mL) subcutaneous pen (Levemir FlexTouch U-100 Insulin) Previous Rx's Medication Instructions Recorded carvedilol 6.25 mg tablet 6.25 mg PO BID #60 tabs 09/30/21 oxycodone 30 mg tablet 15 - 30 mg PO TID PRN pain #20 tabs 04/28/22 Results & Data (ED) Vital Signs Vital Signs - 24 hr 12/02/22 15:27 12/02/22 15:41 12/02/22 15:43 Temperature 37.0 C Temperature Source Oral Pulse Rate 88 91 H Pulse Rate from SpO2 Sensor Respiratory Rate 18 Blood Pressure 151/89 H Blood Pressure Mean 109 Pulse Oximetry 94 92 Oxygen Delivery Method Room Air Room Air Oxygen Flow Rate Sepsis New/Unexplained Change in Mental Status No Sepsis Action Taken by Nursing No Action Required 12/02/22 15:23 12/02/22 15:30 12/02/22 16:00 Temperature Temperature Source Pulse Rate 88 89 Pulse Rate from SpO2 Sensor 88 93 H Respiratory Rate 25 H 21 Blood Pressure 160/86 H Blood Pressure Mean 110 Pulse Oximetry 92 Oxygen Delivery Method Room Air Oxygen Flow Rate Sepsis New/Unexplained Change in Mental Status Sepsis Action Taken by Nursing 12/02/22 16:00 12/02/22 16:30 12/02/22 17:00 Temperature Temperature Source Pulse Rate 89 88 85 Pulse Rate from SpO2 Sensor 88 88 88 Respiratory Rate 23 20 25 H Blood Pressure Blood Pressure Mean Pulse Oximetry 93 92 92 Oxygen Delivery Method Room Air Room Air Room Air Oxygen Flow Rate Sepsis New/Unexplained Change in Mental Status Sepsis Action Taken by Nursing 12/02/22 17:24 12/02/22 17:24 12/02/22 17:30 Temperature Temperature Source Pulse Rate 86 86 Pulse Rate from SpO2 Sensor 86 Respiratory Rate 22 17 Blood Pressure 122/70 Blood Pressure Mean 87 Pulse Oximetry 94 Oxygen Delivery Method Oxygen Flow Rate Sepsis New/Unexplained Change in Mental Status Sepsis Action Taken by Nursing 12/02/22 18:00 12/02/22 18:01 12/02/22 18:20 Temperature Temperature Source Pulse Rate 89 86 Pulse Rate from SpO2 Sensor 86 Respiratory Rate 12 Blood Pressure 131/85 Blood Pressure Mean 100 Pulse Oximetry 92 90 Oxygen Delivery Method Room Air Room Air Oxygen Flow Rate Sepsis New/Unexplained Change in Mental Status Sepsis Action Taken by Nursing 12/02/22 18:30 12/02/22 19:06 12/02/22 20:00 Temperature Temperature Source Pulse Rate 89 86 Pulse Rate from SpO2 Sensor 89 83 86 Respiratory Rate 19 18 Blood Pressure 104/63 129/64 Blood Pressure Mean 76 85 Pulse Oximetry 94 90 91 Oxygen Delivery Method Room Air Nasal Cannula Nasal Cannula Oxygen Flow Rate 2 2 Sepsis New/Unexplained Change in Mental Status Sepsis Action Taken by Nursing 12/02/22 20:30 Temperature Temperature Source Pulse Rate 83 Pulse Rate from SpO2 Sensor 82 Respiratory Rate 18 Blood Pressure Blood Pressure Mean Pulse Oximetry 88 L Oxygen Delivery Method Oxygen Flow Rate Sepsis New/Unexplained Change in Mental Status Sepsis Action Taken by Nursing Laboratory Data 12/02/22 16:10 12/02/22 16:10 Lab Results 12/02/22 12/02/22 12/02/22 Range/Units 15:53 16:10 16:10 WBC 6.20 (4.8-10.8) K/ul RBC 3.61 L (4.70-6.10) M/uL Hgb 10.4 L (14.0-18.0) g/dl Hct 33.1 L (42.0-52.0) % MCV 91.7 (80.0-100.0) fL MCH 28.8 (25.0-34.0) pg MCHC 31.4 L (32.0-36.0) g/dL RDW Std Deviation 55.9 H (36.4-46.3) fL RDW Coeff of Lorenzo 16.7 H (11.5-14.5) % Plt Count 223 (130-400) K/uL MPV 9.8 (9.4-12.4) fL Immature Gran % (Auto) 1.0 % Neut % (Auto) 75.1 % Lymph % (Auto) 16.3 % Cannon % (Auto) 6.1 % Eos % (Auto) 1.0 % Baso % (Auto) 0.5 % Neut # (Auto) 4.66 (1.40-6.50) K/uL Lymph # (Auto) 1.01 L (1.2-3.4) K/uL Cannon # (Auto) 0.38 (0.11-0.59) K/uL Eos # (Auto) 0.06 (0-0.50) K/uL Baso # (Auto) 0.03 (0-0.2) K/uL Immature Gran # (Auto) 0.06 (0.01-0.20) K/uL PT 14.3 H (9.0-12.0) Seconds INR 1.4 H (0.9-1.1) Sodium (136-145) mmol/L Potassium (3.5-5.1) mmol/L Chloride (98-107) mmol/L Carbon Dioxide (21-32) mmol/L Anion Gap (3-11) BUN (6-23) mg/dl Creatinine (0.6-1.4) mg/dl Est Cr Clr Drug Dosing ml/min Est GFR ( Amer) ml/min Est GFR (Non-Af Amer) ml/min BUN/Creatinine Ratio (10-20) Glucose (70-99(Fasting)) mg/dl Calcium (8.6-10.3) mg/dl Total Bilirubin (0.2-1.0) mg/dl AST (13-39) U/L ALT (7-52) U/L Alkaline Phosphatase (34-104) U/L Troponin I High Sens (0-20) pg/ml Total Protein (6.0-8.3) gm/dl Albumin (3.4-5.0) gm/dl Globulin (2.5-4.0) gm/dl Albumin/Globulin Ratio (0.9-2) Lipase (11-82) U/L SARS-CoV-2 (PCR) POSITIVE A* (Negative) Influenza Type A (PCR) Negative (Neg) Influenza Type B (PCR) Negative (Neg) RSV (RT-PCR) Negative (Neg) 12/02/22 12/02/22 Range/Units 16:10 17:49 WBC (4.8-10.8) K/ul RBC (4.70-6.10) M/uL Hgb (14.0-18.0) g/dl Hct (42.0-52.0) % MCV (80.0-100.0) fL MCH (25.0-34.0) pg MCHC (32.0-36.0) g/dL RDW Std Deviation (36.4-46.3) fL RDW Coeff of Lorenzo (11.5-14.5) % Plt Count (130-400) K/uL MPV (9.4-12.4) fL Immature Gran % (Auto) % Neut % (Auto) % Lymph % (Auto) % Cannon % (Auto) % Eos % (Auto) % Baso % (Auto) % Neut # (Auto) (1.40-6.50) K/uL Lymph # (Auto) (1.2-3.4) K/uL Cannon # (Auto) (0.11-0.59) K/uL Eos # (Auto) (0-0.50) K/uL Baso # (Auto) (0-0.2) K/uL Immature Gran # (Auto) (0.01-0.20) K/uL PT (9.0-12.0) Seconds INR (0.9-1.1) Sodium 133 L (136-145) mmol/L Potassium 3.9 (3.5-5.1) mmol/L Chloride 103 (98-107) mmol/L Carbon Dioxide 23 (21-32) mmol/L Anion Gap 7 (3-11) BUN 39 H (6-23) mg/dl Creatinine 1.86 H (0.6-1.4) mg/dl Est Cr Clr Drug Dosing 65.1 ml/min Est GFR ( Amer) 47.8 ml/min Est GFR (Non-Af Amer) 41.3 ml/min BUN/Creatinine Ratio 21.0 H (10-20) Glucose 189 H (70-99(Fasting)) mg/dl Calcium 9.1 (8.6-10.3) mg/dl Total Bilirubin 0.6 (0.2-1.0) mg/dl AST 28 (13-39) U/L ALT 20 (7-52) U/L Alkaline Phosphatase 157 H (34-104) U/L Troponin I High Sens 41.3 H 34.5 H (0-20) pg/ml Total Protein 7.6 (6.0-8.3) gm/dl Albumin 3.1 L (3.4-5.0) gm/dl Globulin 4.5 H (2.5-4.0) gm/dl Albumin/Globulin Ratio 0.7 L (0.9-2) Lipase 48 (11-82) U/L SARS-CoV-2 (PCR) (Negative) Influenza Type A (PCR) (Neg) Influenza Type B (PCR) (Neg) RSV (RT-PCR) (Neg) Administered Medications Discontinued Medications Albuterol (Albut/Ipratrop 3mg/0.5mg Neb 3 Ml Vial) 3 ml NEB NOW STA; Protocol Stop: 12/02/22 18:29 Last Admin: 12/02/22 18:33 Dose: 3 ml Documented By: SONJA Aspirin (Aspirin Chew 324 Mg) 324 mg PO NOW STA Stop: 12/02/22 17:56 Last Admin: 12/02/22 18:16 Dose: 324 mg Documented By: SONJA Dexamethasone Sodium Phosphate (DexamethasonePf 10 Mg/Ml Vial) 8 mg IV NOW ONE Stop: 12/02/22 17:36 Last Admin: 12/02/22 17:56 Dose: 8 mg Documented By: SONJA Sodium Chloride (Nss 1000ml) 1,000 mls @ 999 mls/hr IV .Q1H1M ONE Stop: 12/02/22 16:30 Last Infusion: 12/02/22 17:22 Dose: 0 mls/hr Documented By: Admin: 12/02/22 16:21 Dose: 999 mls/hr Documented By: SONJA Ceftriaxone Sodium (Rocephin) 2,000 mg in 70 mls @ 140 mls/hr IV NOW STA Stop: 12/02/22 16:01 Last Infusion: 12/02/22 16:54 Dose: 0 mls/hr Documented By: Admin: 12/02/22 16:24 Dose: 140 mls/hr Documented By: SONJA Azithromycin 500 mg/ Dextrose 255 mls @ 127.5 mls/hr IV NOW STA Stop: 12/02/22 17:31 Last Infusion: 12/02/22 19:28 Dose: 0 mls/hr Documented By: Admin: 12/02/22 17:21 Dose: 127.5 mls/hr Documented By: SONJA Warfarin Sodium (Warfarin Sod 10 Mg Tab) 10 mg PO NOW ONE Stop: 12/02/22 18:31 Last Admin: 12/02/22 18:48 Dose: 10 mg Documented By: SONJA Imaging Data Radiologist's Impression: Chest X-Ray 12/02/22 15:31 XR chest 1V portable HISTORY: Chest pain, nonspecific COMPARISON: Chest 09/26/2022. FINDINGS: There are low lung volumes. The cardiac silhouette remains borderline enlarged. There are poststernotomy changes. No new focal lung consolidations to suggest a pneumonia. No evidence for pulmonary edema. No pleural effusions. No pneumothorax. Cervical spinal fusion hardware is noted. IMPRESSION: No acute process. ACT 112: Negative or not required by law. Electronically signed by: Ronnie Abad M.D. 12/02/2022 4:06 PM Discharge Plan Visit Data Chief Complaint: Illness ED Provider: Junior Caba Discharge Problem: COVID-19, Shortness of breath, Elevated troponin Discharge Instructions Interventions: ED Discharge Assessment Last Done: 12/02/22 20:54 Forms Stand Alone Forms: My [facility] Prescriptions Prescriptions: No Action allopurinol 300 mg tablet 300 mg PO QAM carvedilol 6.25 mg tablet 6.25 mg PO BID Qty: 60 6RF Rx Instructions: must administer with a meal/food Kerendia 10 mg tablet 10 mg PO DAILY Rx Instructions: ON HOLD PER PT famotidine [Pepcid] 40 mg tablet 40 mg PO QAM insulin aspart U-100 [Novolog FlexPen U-100 Insulin] 100 unit/mL Insulin Pen 0 sliding scale dose SUBCUT TIDM clotrimazole-betamethasone 1-0.05 % cream 1 applic TOPICAL BID PRN (Reason: affected area) oxycodone 30 mg tablet 15 - 30 mg PO TID PRN (Reason: pain) Qty: 20 0RF warfarin 2.5 mg tablet See Rx Instructions .ROUTE .COMPLEX Rx Instructions: TAKES QPM Take 5 mg on mon, mon, and mon. Take 2.5 mg Monday, Monday, Monday, and . Recheck on Tuesdays. ascorbic acid (vitamin C) [Vitamin C] 500 mg Tablet 500 mg PO DAILY cholecalciferol (vitamin D3) [Vitamin D3] 125 mcg (5,000 unit) Tablet 125 mcg PO DAILY gabapentin 300 mg capsule 300 mg PO BID Trulicity 0.75 mg/0.5 mL pen injector 0.75 mg SUBCUT WK Rx Instructions: HAS NOT STARTED Levemir FlexTouch U-100 Insuln 100 unit/mL (3 mL) insulin pen 60 unit SUBCUT BID Referrals Referrals: Demarcus Nicholson DO [Primary Care Provider] -
--- NOTE | 2022-12-02 16:07 | XRay Report ---
XR chest 1V portable HISTORY: Chest pain, nonspecific COMPARISON: Chest 09/26/2022. FINDINGS: There are low lung volumes. The cardiac silhouette remains borderline enlarged. There are p oststernotomy changes. No new focal lung consolidations to suggest a pneumonia. No evidence for pulmo nary edema. No pleural effusions. No pneumothorax. Cervical spinal fusion hardware is noted. IMPRESSION: No acute process. ACT 112: Negative or not required by law. Electronically signed by: Ronnie Abad M.D. 12/02/2022 4:06 PM
[2022-12-02 16:33] LABS: Basophils # (auto) 0.03 K/uL (0-0.2); Basophils % (auto) 0.5 %; Eosinophils # (auto) 0.06 K/uL (0-0.50); Hematocrit (blood only) 33.1 % (42.0-52.0); Hemoglobin 10.4 g/dl (14.0-18.0); Immature Granulocytes # (auto) 0.06 K/uL (0.01-0.20); Lymphocytes # (auto) 1.01 K/uL (1.2-3.4); Lymphocytes % (auto) 16.3 %; Mean Corpuscular Hemoglobin 28.8 pg (25.0-34.0); Mean Corpuscular Hgb Conc 31.4 g/dL (32.0-36.0); Mean Corpuscular Volume 91.7 fL (80.0-100.0); Mean Platelet Volume 9.8 fL (9.4-12.4); Monocytes # (auto) 0.38 K/uL (0.11-0.59); Monocytes % (auto) 6.1 %; Neutrophils # (auto) 4.66 K/uL (1.40-6.50); Neutrophils % (auto) 75.1 %; Platelet Count 223 K/uL (130-400); RDW Coefficient of Variation 16.7 % (11.5-14.5); RDW Standard Deviation 55.9 fL (36.4-46.3); Red Blood Count 3.61 M/uL (4.70-6.10)
[2022-12-02 16:49] LABS: Albumin Globulin Ratio 0.7 (0.9-2); Albumin Level 3.1 gm/dl (3.4-5.0); Bilirubin,Total 0.6 mg/dl (0.2-1.0); Calcium 9.1 mg/dl (8.6-10.3); Creatinine Clr Calc Pharmacy 65.1 ml/min; Est GFR (African American) 47.8 ml/min; Est GFR (Non-African American) 41.3 ml/min; Globulin 4.5 gm/dl (2.5-4.0); Potassium 3.9 mmol/L (3.5-5.1); Total Protein 7.6 gm/dl (6.0-8.3)
[2022-12-02 16:52] LABS: Influenza A virus by PCR Negative (Neg); Influenza B virus by PCR Negative (Neg); RSV by PCR Negative (Neg)
[2022-12-02 16:55] LABS: Troponin I High Sensitivity 41.3 pg/ml (0-20)
[2022-12-02 17:10] LABS: INR 1.4 (0.9-1.1); Prothrombin Time 14.3 Seconds (9.0-12.0)
[2022-12-02 17:13] LABS: SARS CoV2 RNA(COVID-19) Ceph POSITIVE (Negative)
[2022-12-02] MEDS ORDERED: dexAMETHasone**PF** 10 MG/ML VIAL IV ONE (17:35)
[2022-12-02] MEDS ORDERED: ASPIRIN CHEW 324 MG PO STA (17:55)
[2022-12-02] MEDS ORDERED: ALBUT/IPRATROP 3MG/0.5MG NEB 3 ML VIAL NEB STA (18:28)
[2022-12-02] MEDS ORDERED: WARFARIN SOD 10 MG TAB PO ONE (18:30)
--- NOTE | 2022-12-02 18:43 | History & Physical Report ---
Date of Service December 02, 2022 Assessment & Plan (1) COVID-19: Plan: Acute/unstable - Observation to med/tele - Patient is a high risk for complications given his obesity, CAD, and DM although is vaccinated and boosted - Did not require intubation when he had prior COVID infection in 2020 - Reviewed CBC, no leukocytosis, afebrile - Currently NOT hypoxic, he is maintaining a pulse ox of 92-94% on room air - He is however having bronchospasms, so will continue utilizing Decadron 6mg IV daily - Do not feel strongly initiating Remdesivir for him - No need for antibiotic coverage in a viral illness - Duonebs QIDR and q2 prn, Mucinex 600mg BID - Incentive spirometer q4 wa - COVID isolation precautions (2) Elevated troponin: Plan: Acute/unstable - Reviewed trop, mild elevation of 41 - given a dose of ASA upon request by ED - Pt is chest pain free and w/o acute EKG changes - Elevated trop likely represents demand ischemia in the setting of COVID-19 - H/o CAD s/p CABG and stents, continue Coreg, daily ASA 81mg (3) CKD (chronic kidney disease) stage 3, GFR 30-59 ml/min: Plan: Unclear if he has an JUAREZ on CKD, baseline is unclear - Sep 2022 hospitalization indicates creatinine ranging 1.5-1.7 - Today's chemistry panel notes a creatinine of 1.86 - Continue Finerenone 10mg daily - Hydrated with 1L of NSS by ED physician, repeat BMP in AM (4) Supratherapeutic INR: Plan: H/o PE/DVT on Coumadin Acute/unstable - INR subtherapeutic at 1.4 today - Coumadin 10mg po x1 now, increase daily dose to 5mg daily - Check daily PT/INRs, could consider bridging tomorrow (5) Chronic pain syndrome: Plan: Chronic/stable - Continue OxyIR 15mg q4h prn pain (6) ANIBAL (obstructive sleep apnea): Plan: Chronic/unstable - Patient desaturates when he sleeps, this is not new - Per pt, currently not being treated, claims to be getting a new bipap device at some point - Can either set up bipap/cpap at HS per protocol or utilize O2 at HS while sleeping Plan AM labs have been ordered. Above plan of care d/w Dr. Perez who has also seen and evaluated this patient. Further orders will be implemented as warranted. History of Present Illness Chief Complaint: cough, congestion, fever Primary Care Provider: Demarcus Nicholson DO Hema Grajeda is a 52 yo obese M who is known to the hospitalist service from previous admissions and carries a h/o DMT2, CKD, GERD, Hirschsprung's disease with chronic ileostomy, h/o IV drug abuse complicated by endocarditis requiring mitral valve repair, ANIBAL, CAD s/p CABG and stenting, h/o hep C, DVT/PE on Coumadin, and paraplegia. He presented to the ER today c/o cough, congestion, fever and shortness of breath. He was recently hospitalized at [facility] 09/24/22 to 09/28/22 due to scrotal abscess which required I&D, antibiotics, and antifungals. Patient also had findings of a kidney "cyst" that was concerning for renal cell ca and subsequently was referred to [facility] for IR biopsy. This procedure was completed on on 10/11 and was complicated by a hemorrhage for which he sought evaluation in the ER for flank pain on 10/17. He was transferred [place] [facility] and reports that he was discharged around October 21. Approximately 2 weeks after he was discharged he notes he developed a cough. He states that his cough has been nonproductive. On Monday of this week, he began having congestion, worsening cou gh, and shortness of breath. He states that he has been intermittently checking his oxygen at home and it has been "low at times" particularly in bed at night when he lays down to go to sleep. Yesterday, he developed a fever. He presented to the ER today via EMS was reportedly hypoxic with a sat of 88% and placed on 2L of nasal cannula with improvement in his oxygen to 98%. He has a known h/o ANIBAL, previously had a bipap device that he was using at but device was recalled and he has not yet received a new one. In the ER, he has been afebrile with a normal pulse ox of 92-94% on room air. He tested positive for COVID-19, neg for RSV and flu A/B. He has a h/o of having COVID in fall and has been vaccinated and boosted. He was also found to have a mildly elevated troponin of 41 without c/o chest pain. EKG is nonacute. He did not receive any breathing treatments or Decadron at the time of hospitalist assessment and is breathing comfortably. He was medicated with a dose of Zithromax and Rocephin. He has been referred for admission for further treatment. Allergies Allergy/AdvReac Type Severity Reaction Status Date / Time sulfamethoxazole AdvReac Unknown "Levels Verified 10/15/22 14:57 [From Bactrim] were up"-per [facility] trimethoprim [From Bactrim] AdvReac Unknown "Levels Verified 10/15/22 14:57 were up"-per [facility] Home Medications Medication Instructions Recorded Confirmed Type insulin aspart U-100 100 unit/mL 0 sliding scale dose subcut TIDM 10/08/18 12/02/22 History (3 mL) subcutaneous pen (Novolog per sliding scale FlexPen U-100 Insulin aspart) famotidine 40 mg tablet (Pepcid) 40 mg PO QAM 05/27/19 12/02/22 History allopurinol 300 mg tablet 300 mg PO QAM 01/23/20 12/02/22 History carvedilol 6.25 mg tablet 6.25 mg PO BID #60 tabs 09/30/21 12/02/22 Rx finerenone 10 mg tablet (Kerendia) 10 mg PO DAILY 12/29/21 12/02/22 History clotrimazole-betamethasone 1 1 applic topical BID PRN affected 02/24/22 12/02/22 History %-0.05 % topical cream area oxycodone 30 mg tablet 15 - 30 mg PO TID PRN pain #20 tabs 04/28/22 12/02/22 Rx ascorbic acid (vitamin C) 500 mg 500 mg PO DAILY 09/24/22 12/02/22 History tablet (Vitamin C) cholecalciferol (vitamin D3) 125 125 mcg PO DAILY 09/24/22 12/02/22 History mcg (5,000 unit) tablet (Vitamin D3) gabapentin 300 mg capsule 300 mg PO BID 09/24/22 12/02/22 History warfarin 2.5 mg tablet See Rx Instructions .Route .COMPLEX 09/24/22 12/02/22 History dulaglutide 0.75 mg/0.5 mL 0.75 mg subcut WK 10/15/22 12/02/22 History subcutaneous pen injector (Trulicity) insulin detemir U-100 100 unit/mL 60 unit subcut BID 12/02/22 12/02/22 History (3 mL) subcutaneous pen (Levemir FlexTouch U-100 Insulin) Past Med/Surg History Medical History Celiac disease Chronic indwelling Velazquez catheter Chronic kidney disease, stage 3a follows with [facility] Coronary artery disease CABG x 1 2012-VG to LAD, multiple stents, follows with [facility] Diastolic congestive heart failure EF 55-59% Difficult airway for intubation 01/18/22 Patient unable to be intubated with Glidescope 4 - good view but unable to pass ETT, Igel #5 easily placed and worked well DM type 2 (diabetes mellitus, type 2) IDDM GI bleed 2018 requiring 3 blood transfusions, transferred to [facility] with work-up not revealing clear cause per records Gout Hepatitis C TREATED Hirschsprung's disease History of blood transfusion 2018 in setting of GI bleed History of COVID-19 05/2021- no symptoms- no hospitalization History of CVA (cerebrovascular accident) 2012-admitted [facility] History of endocarditis TREATED AT [facility]-2012 History of GI bleed History of intravenous drug abuse Hx of pulmonary embolus Hyperlipidemia Morbid obesity Paraplegia Pulmonary emboli 05/2010-unknown cause- admitted and treated at [facility] Pulmonary hypertension Sleep apnea, organic NO DEVICE AT THIS TIME, HIS MACHINE WAS INVOLVED IN RECALL Surgical History H/O aortic root repair 05/2016- [facility] H/O cervical spine surgery for severe stenosis w/ myelopathy; 05/2022 - [facility] H/O mitral valve repair UNSURE-EITHER [facility] OR [facility] Hx of CABG 2012 [facility]- DUE TO ENDOCARDITIS, single vessel per records S/P brain surgery 2013- [facility] S/P cardiac cath S/P colostomy FOLLOWS W/ [facility] GI S/P ileostomy S/P ureteral stent placement 08/2022 - [facility] Family History Father Cardiac disorder Hypertension Prostate cancer Diabetes Coronary heart disease COPD (chronic obstructive pulmonary disease) Pacemaker Mother Hypertension Skin cancer Dementia Social History Smoking Status: Never smoker Tobacco Type: Cigarettes Second Hand Exposure: No; Hx Alcohol Use: No Hx Substance Use: Yes Preferred Language: Macedonian Communication Ability: Effective Communication Ability Comment: GARBLED SPEECH Warper Creeler Required: No Beliefs That Will Affect Care: None marital status: Single Current Living Situation: Parent Current Living Situation Comment: Lives with parents and has caregivers to come and help with ADLs current occupational status: employed 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 NAD. LUNGS: Nonlabored, no conversational dyspnea. Scattered expiratory wheezes b/l. No rhonchi or rales. CARDIOVASCULAR: Regular rate and rhythm. No M/G/R. No JVD. ABDOMEN: Soft, non-tender and non-distended. No palpable masses. Bowel sounds normoactive x 4 quad. EXTREMITIES: No edema. Non-tender. Peripheral pulses +2/4. NEUROLOGIC: A&O x3. No focal neurological deficits. CN II-XII grossly intact. PSYCHIATRIC: Cooperative. Appropriate mood and affect. SKIN: Warm, dry, intact. No rashes or lesions. Results & Data Results & Data Vital Signs (Past 12 Hours) Vital Signs Temp Pulse Resp BP Pulse Ox O2 Del Method 12/02/22 18:01 131/85 12/02/22 18:00 89 92 Room Air 12/02/22 17:30 86 17 94 12/02/22 17:24 122/70 12/02/22 17:24 86 22 12/02/22 17:00 85 25 H 92 Room Air 12/02/22 16:30 88 20 92 Room Air 12/02/22 16:00 89 23 93 Room Air 12/02/22 16:00 160/86 H 12/02/22 15:30 89 21 12/02/22 15:23 88 25 H 92 Room Air 12/02/22 15:43 91 H 12/02/22 15:41 92 Room Air 12/02/22 15:27 37.0 C 88 18 151/89 H 94 Room Air Laboratory Results 12/02/22 16:10 12/02/22 16:10 Diagnostic Findings Chest X-Ray 12/02/22 15:31 XR chest 1V portable HISTORY: Chest pain, nonspecific COMPARISON: Chest 09/26/2022. FINDINGS: There are low lung volumes. The cardiac silhouette remains borderline enlarged. There are poststernotomy changes. No new focal lung consolidations to suggest a pneumonia. No evidence for pulmonary edema. No pleural effusions. No pneumothorax. Cervical spinal fusion hardware is noted. IMPRESSION: No acute process. ACT 112: Negative or not required by law. Electronically signed by: Ronnie Abad M.D. 12/02/2022 4:06 PM Code Status & VTE Plan VTE Prophylaxis Plan VTE Prophylaxis will be ordered: Yes Supervising Physician Co-Signing Physician Notes Patient seen and examined, chart reviewed, case discussed with Naye Ivan PA-C and I agree with the assessment and plan as above except as otherwise noted Labs and images reviewed Hema is a 52-year-old male with a past medical history of Hirschsprung's, ileostomy, past IV drug use, type II DM, GERD, DVT/PE on warfarin, paraplegia who presented with cough, congestion, and shortness of breath. On room assessment is 90-94% on room air, per ER report was hypoxic to 88% on room air. Significantly bronchospastic and wheezy, recommended for admission due to comorbidity and borderline hypoxia with troponin leak. Troponin trended, steroids and symptomatic COVID care as above. Patient feeling better at time bedside assessment, expiratory wheezes are present but significantly improved on reassessment with nebulizer. Heart rate is regular in the 80s. Agree with assessment above. PG Care Time/CCT Total # of Minutes Spent Total Time Spent with Patient: Total time spent is greater than 50% in coordination of care (as documented) at patient's floor/unit and/or counseling patient: Coding Level of Care Code 59223 INT INP/OBS CARE 3/75MIN Diagnoses COVID-19 U07.1 Elevated troponin R77.8 CKD (chronic kidney disease) stage 3, GFR 30-59 ml/min N18.3 Supratherapeutic INR R79.1 Chronic pain syndrome G89.4 ANIBAL (obstructive sleep apnea) G47.33
[2022-12-02] MEDS ORDERED: ALUMINUM/MAGNESIUM SUSP 30 ML UDC PO PRN (21:34)
[2022-12-02] MEDS ORDERED: CARBOHYDRATES FOR HYPOGLYCEMIA PO PRN (21:34)
[2022-12-02] MEDS ORDERED: GLUCOSE 40% GEL 15 GM TUBE PO PRN (21:34)
[2022-12-02] MEDS ORDERED: MAGNESIUM HYDROXIDE SUSP 30 ML UDC PO PRN (21:34)
[2022-12-02] MEDS ORDERED: GLUCOSE 10 TAB/TUBE PO PRN (21:34)
[2022-12-02] MEDS ORDERED: ONDANSETRON INJ 2 MG/ML 2 ML VIAL IV PRN (21:34)
[2022-12-02] MEDS ORDERED: ACETAMINOPHEN 325 MG TAB PO PRN (21:34)
[2022-12-02] MEDS ORDERED: PHARMACY GLYCEMIC MGMT CONSULT PRN (21:34)
[2022-12-02] MEDS ORDERED: oxyCODONE HCL IR 5 MG TAB (IMMEDIATE RELEASE) PO PRN (21:34)
[2022-12-02] MEDS ORDERED: GLUCAGON FOR INJ 1 MG VIAL SQ PRN (21:34)
[2022-12-02] MEDS ORDERED: DEXTROSE 50% 50 ML SYRINGE IV PRN (21:34)
[2022-12-02] MEDS ORDERED: INSULIN ASPART PER UNIT CHARGE SC SCH (21:34)
[2022-12-02] MEDS ORDERED: ALBUT/IPRATROP 3MG/0.5MG NEB 3 ML VIAL ONE (21:45)
[2022-12-02] MEDS: ALBUT/IPRATROP 3MG/0.5MG NEB 3 ML VIAL NEB SCH (21:51)
[2022-12-02] MEDS ORDERED: LANTUS PER UNIT CHARGE SC SCH (22:15)
[2022-12-02] MEDS ORDERED: INSULIN ASPART PER UNIT CHARGE SC ONE (22:30)
[2022-12-02] MEDS ORDERED: LANTUS PER UNIT CHARGE SC ONE (22:45)
[2022-12-02] MEDS: GABAPENTIN 300 MG CAP PO SCH (22:46)
[2022-12-02] MEDS: carvediloL 6.25 MG TAB PO SCH (22:46)
[2022-12-02] MEDS: guaiFENesin 600 MG TABCR PO SCH (22:47)
[2022-12-03] MEDS ORDERED: MICONAZOLE NITRATE POWDER 85 GM EXT PRN (00:54)
[2022-12-03] MEDS ORDERED: INSULIN ASPART PER UNIT CHARGE SC SCH ×2 (02:00)
--- NOTE | 2022-12-03 07:44 | Electrocardiogram Report ---
Test Reason : Blood Pressure : / mmHG Vent. Rate : 089 BPM Atrial Rate : 089 BPM P-R Int : 208 ms QRS Dur : 092 ms QT Int : 392 ms P-R-T Axes : 024 028 067 degrees QTc Int : 476 ms Normal sinus rhythm Nonspecific T wave abnormality Prolonged QT Abnormal ECG When compared with ECG of 15-OCT-2022 15:58, No significant change was found Confirmed by Jeronimo Kovacs ([id number]) on 12/03/2022 7:44:01 AM Referred By: REFERRED SELF Confirmed By:Bryan Kovacs
[2022-12-03 07:56] LABS: Basophils # (auto) 0.01 K/uL (0-0.2); Basophils % (auto) 0.2 %; Hematocrit (blood only) 34.7 % (42.0-52.0); Immature Granulocytes # (auto) 0.05 K/uL (0.01-0.20); Immature Granulocytes % (auto) 1.1 %; Lymphocytes # (auto) 0.42 K/uL (1.2-3.4); Lymphocytes % (auto) 9.1 %; Mean Corpuscular Hemoglobin 28.9 pg (25.0-34.0); Mean Corpuscular Hgb Conc 31.7 g/dL (32.0-36.0); Mean Corpuscular Volume 91.3 fL (80.0-100.0); Mean Platelet Volume 9.5 fL (9.4-12.4); Monocytes # (auto) 0.09 K/uL (0.11-0.59); Monocytes % (auto) 1.9 %; Neutrophils # (auto) 4.07 K/uL (1.40-6.50); Neutrophils % (auto) 87.7 %; Platelet Count 215 K/uL (130-400); RDW Coefficient of Variation 16.1 % (11.5-14.5); RDW Standard Deviation 53.7 fL (36.4-46.3); White Blood Count 4.64 K/ul (4.8-10.8)
[2022-12-03] MEDS: ALBUT/IPRATROP 3MG/0.5MG NEB 3 ML VIAL NEB SCH ×4 (08:09→19:23)
[2022-12-03 08:22] LABS: INR 1.4 (0.9-1.1)
[2022-12-03 08:24] LABS: BUN Creatinine Ratio 24.4 (10-20); Calcium 8.6 mg/dl (8.6-10.3); Creatinine Clr Calc Pharmacy 73.9 ml/min; Est GFR (African American) 55.7 ml/min; Magnesium 1.4 mg/dl (1.7-2.4); Potassium 4.4 mmol/L (3.5-5.1)
[2022-12-03] MEDS: INSULIN ASPART PER UNIT CHARGE SC SCH ×5 (08:40→23:37)
[2022-12-03] MEDS ORDERED: REMDESIVIR 200 MG in SODIUM CHLORIDE 0.9% 210 ML IV STA (09:22)
[2022-12-03] MEDS ORDERED: LANTUS PER UNIT CHARGE SC ONE (09:30)
[2022-12-03] MEDS: dexAMETHasone 6 MG in SYRINGE 0 ML IV SCH (10:09)
[2022-12-03] MEDS: MAGNESIUM SULFATE / D5W 1 GM/100 ML BAG IV SCH ×3 (10:14→13:41)
[2022-12-03] MEDS: carvediloL 6.25 MG TAB PO SCH ×2 (10:17→21:46)
[2022-12-03] MEDS: GABAPENTIN 300 MG CAP PO SCH ×2 (10:17→21:46)
[2022-12-03] MEDS: guaiFENesin 600 MG TABCR PO SCH ×2 (10:17→21:46)
[2022-12-03] MEDS: FAMOTIDINE 40 MG TABLET PO SCH (10:18)
[2022-12-03] MEDS: ASCORBIC ACID 500 MG TAB PO SCH (10:18)
[2022-12-03] MEDS: allopurinoL 300 MG TAB PO SCH (10:18)
[2022-12-03] MEDS: ASPIRIN 81 MG ECTAB PO SCH (10:18)
--- NOTE | 2022-12-03 11:23 | Pharmacy Report ---
Pharmacy Glycemic Short Note 2 - Date of Service December 03, 2022 - Glycemic Short BSG Results (Last 24 hours): 12/02/22 12/02/22 12/03/22 16:10 21:29 02:47 Glucose 189 H POC Glucose 245 H 375 H* 12/03/22 12/03/22 06:55 08:32 Glucose 358 H* POC Glucose 351 H* OUTPATIENT ANTIDIABETIC REGIMEN: * Levemir 60 units SQ BID * Novolog per sliding scale * Trulicity 0.75 mg SQ weekly * A1c = 9.5% (09/25/22) ASSESSMENT: * Hema is a 52 yo who presented with c/o cough, congestion, fever and shortness of breath. Positive for SARS-CoV-2. * He has been started on Remdesivir and dexamethasone IV. Severe hyperglycemia this am. * Patient was given a one time dose of Lantus 80 units last evening (home dose of 60 units + 20 additional units due to partial AM dose per med rec). * During past admission, patient required ~160 units of Lantus per day while on dexamethasone 4 mg IV q8h. Will start with 80 units this morning since BSG is > 300 mg/dL this AM and then dose per BSG scale moving forward. * Tighten Novolog parameters. PLAN FOR INPATIENT GLYCEMIC CONTROL: * Hold outpatient oral diabetes medications * Basal insulin * Lantus 80 units SQ this AM, then 60-80 units SQ q12 * Bolus insulin * NovoLog per scale ACHS or Q6hrs while NPO * Goal Range: Low 110 mg/dL - High 140 mg/dL * Correction Factor: 8 mg/dL/unit * Nutritional / Prandial insulin per carb ratio of 1 unit per 3 grams CHO consumed
[2022-12-03] MEDS ORDERED: INSULIN HUMAN REGULAR PER UNIT 5 UNITS in SYRINGE 4.95 ML IV ONE (13:00)
[2022-12-03] MEDS ORDERED: WARFARIN SOD 5 MG TAB PO SCH (16:00)
[2022-12-03] MEDS ORDERED: dexAMETHasone 6 MG in SYRINGE 0 ML IV SCH (17:30)
--- NOTE | 2022-12-03 20:02 | Hospitalist Progress Note ---
Date of Service December 03, 2022 Assessment & Plan (1) COVID-19: Plan: remains on dexamethasone 6mg IV daily, day #2 of such given high risk for further worsening, and borderline o2 sats at times, will add Remdesivir daily mild leukopenia on labs only stable Cr stable LFTs cont airborne isolation (2) Elevated troponin: Plan: likely represents myocardial demand ischemia in the setting of COVID-19 infection no symptoms/signs of ACS despite prior h/o CAD (3) CKD (chronic kidney disease) stage 3, GFR 30-59 ml/min: Plan: Cr stable today at 1.6 since early September his Cr has been about this level 2021 baseline was 1 perhaps this is his new baseline bmp in am (4) Chronic pain syndrome: Plan: Chronic/stable Continue OxyIR 15mg q4h prn pain (5) ANIBAL (obstructive sleep apnea): Plan: is supposed to be on NIPPV but his device was apparently part of the national recall and he has not secured a new device thus, not on formal treatment at this time could consider an overnight oximetry study to qualify him for nocturnal O2 or simply get him back to his tank calibrator to get him new device (6) History of stroke: (7) S/P ileostomy: Plan: s/p colectomy for Hirschsprung's disease ileostomy functioning well (8) Chronic indwelling Velazquez catheter: Plan: exchanged this past Monday via homehealth exchanged every 30 days (9) Hypomagnesemia: Plan: replace with 3 grams mag sulfate IV repeat level am (10) Morbid obesity: Plan: BMI 46 (11) CAD (coronary atherosclerotic disease): Plan: prior h/o CABG (12) Hirschsprung's disease: (13) Paraplegia: (14) History of DVT (deep vein thrombosis): Plan: on chronic coumadin INR at presentation was 1.4 given 10mg x 1 of coumadin on day of admission 5mg today (which is regular dose for him on a Monday) repeat INR am tomorrow typically would be a 5mg day (15) History of pulmonary embolus (PE): Plan: as above (16) Diabetes mellitus type 2, uncontrolled: Plan: a1c 9.5% in September currently high BSGs 2nd to steroids for #1 pharmacy glycemic team assisting and I appreciate their help (17) Renal hemorrhage, left: Plan: complication of recent procedure at [facility] in late September had treatment for a complex cyst and following that procedure had renal hemorrhage H/H are stable today Plan diet - gluten free, T2DM pt's father updated by phone this evening depending on his respiratory status and bsgs may be able to d/c home tomorrow he is about 7 days into his COVID illness by history Admission and Anticipated Discharge Date Admission Date: December 02, 2022 Subjective patient resting in bed comfortably feels better today cough improved wheezing improved o2 sats my entire visit with him - while in room air - were 96% or above appetite robust has been sick since about Monday of last weekend ostomy output - more runny than usual tele - stable overnight Review of Systems Review of Systems: gen - no fever, no chills musculo - denies myalgias cv - no cp pulm - no dyspnea at rest GI - no vomiting or nausea Physical Exam Physical Exam: gen - NAD, obese, nontoxic mouth - MMM neck - no JVD heart - RRR, s1 s2, no murmur lungs - CTA b/l abd - soft NT; mild distension; ostomy right side of abdomen with liquid stool; BS+; scars abdominal wall ext - 1+ edema b/l, pulses 2+ b/l neuro - paraplegia of legs Results & Data Results & Data Vital Signs (Past 12 Hours) Vital Signs Temp Pulse Pulse Resp BP Pulse Ox O2 Del Method 12/03/22 19:23 79 18 97 Nasal Cannula 12/03/22 17:08 36.9 C 77 20 123/79 95 Room Air 12/03/22 14:07 79 12/03/22 15:42 78 18 97 Nasal Cannula 12/03/22 12:28 36.9 C 72 18 128/75 97 Nasal Cannula 12/03/22 11:05 72 18 96 Nasal Cannula 12/03/22 10:53 Nasal Cannula 12/03/22 08:37 36.9 C 66 18 126/80 96 Nasal Cannula 12/03/22 08:09 66 16 95 Nasal Cannula O2 Flow Rate 12/03/22 19:23 2 12/03/22 17:08 12/03/22 14:07 12/03/22 15:42 1 12/03/22 12:28 2 12/03/22 11:05 1 12/03/22 10:53 1 12/03/22 08:37 2 12/03/22 08:09 1 Laboratory Results Laboratory Results - last 24 hr 12/02/22 12/03/22 12/03/22 21:29 02:47 06:55 WBC 4.64 L RBC 3.80 L Hgb 11.0 L Hct 34.7 L MCV 91.3 MCH 28.9 MCHC 31.7 L RDW Std Deviation 53.7 H RDW Coeff of Lorenzo 16.1 H Plt Count 215 MPV 9.5 Immature Gran % (Auto) 1.1 Neut % (Auto) 87.7 Lymph % (Auto) 9.1 [place] % (Auto) 1.9 Eos % (Auto) 0.0 Baso % (Auto) 0.2 Neut # (Auto) 4.07 Lymph # (Auto) 0.42 L [place] # (Auto) 0.09 L Eos # (Auto) 0.00 Baso # (Auto) 0.01 Immature Gran # (Auto) 0.05 PT INR Sodium Potassium Chloride Carbon Dioxide Anion Gap BUN Creatinine Est Cr Clr Drug Dosing Est GFR ( Amer) Est GFR (Non-Af Amer) BUN/Creatinine Ratio Glucose POC Glucose 245 H 375 H* Calcium Magnesium 12/03/22 12/03/22 12/03/22 06:55 06:55 08:32 WBC RBC Hgb Hct MCV MCH MCHC RDW Std Deviation RDW Coeff of Lorenzo Plt Count MPV Immature Gran % (Auto) Neut % (Auto) Lymph % (Auto) [place] % (Auto) Eos % (Auto) Baso % (Auto) Neut # (Auto) Lymph # (Auto) [place] # (Auto) Eos # (Auto) Baso # (Auto) Immature Gran # (Auto) PT 15.0 H INR 1.4 H Sodium 132 L Potassium 4.4 Chloride 102 Carbon Dioxide 19 L Anion Gap 11 BUN 40 H Creatinine 1.64 H Est Cr Clr Drug Dosing 73.9 Est GFR ( Amer) 55.7 Est GFR (Non-Af Amer) 48.0 BUN/Creatinine Ratio 24.4 H Glucose 358 H* POC Glucose 351 H* Calcium 8.6 Magnesium 1.4 L 12/03/22 12/03/22 12/03/22 12:26 15:20 17:06 WBC RBC Hgb Hct MCV MCH MCHC RDW Std Deviation RDW Coeff of Lorenzo Plt Count MPV Immature Gran % (Auto) Neut % (Auto) Lymph % (Auto) [place] % (Auto) Eos % (Auto) Baso % (Auto) Neut # (Auto) Lymph # (Auto) [place] # (Auto) Eos # (Auto) Baso # (Auto) Immature Gran # (Auto) PT INR Sodium Potassium Chloride Carbon Dioxide Anion Gap BUN Creatinine Est Cr Clr Drug Dosing Est GFR ( Amer) Est GFR (Non-Af Amer) BUN/Creatinine Ratio Glucose POC Glucose 381 H* 347 H* 312 H* Calcium Magnesium PG Care Time/CCT Total # of Minutes Spent Total Time Spent with Patient: Total time spent is greater than 50% in coordination of care (as documented) at patient's floor/unit and/or counseling patient: Coding Level of Care Code 38346 SUB INP/OBS CARE 2/35MIN Diagnoses COVID-19 U07.1 Elevated troponin R77.8 CKD (chronic kidney disease) stage 3, GFR 30-59 ml/min N18.3 Chronic pain syndrome G89.4 ANIBAL (obstructive sleep apnea) G47.33 History of stroke Z86.73 S/P ileostomy Z93.2 Chronic indwelling Velazquez catheter Z97.8 Hypomagnesemia E83.42 Morbid obesity E66.01 CAD (coronary atherosclerotic disease) I25.10 Hirschsprung's disease Q43.1 Paraplegia G82.20 History of DVT (deep vein thrombosis) Z86.718 History of pulmonary embolus (PE) Z86.711 Diabetes mellitus type 2, uncontrolled Renal hemorrhage, left N28.89
[2022-12-03] MEDS ORDERED: INSULIN HUMAN REGULAR PER UNIT 10 UNITS in SYRINGE 9.9 ML IV ONE (22:15)
[2022-12-03] MEDS: LANTUS PER UNIT CHARGE SC SCH (22:26)
[2022-12-04] MEDS: INSULIN ASPART PER UNIT CHARGE SC SCH ×3 (04:13→12:29)
[2022-12-04 06:45] LABS: Hemoglobin 10.3 g/dl (14.0-18.0); Mean Corpuscular Hemoglobin 28.7 pg (25.0-34.0); Mean Corpuscular Hgb Conc 32.2 g/dL (32.0-36.0); Mean Corpuscular Volume 89.1 fL (80.0-100.0); Mean Platelet Volume 9.2 fL (9.4-12.4); Platelet Count 235 K/uL (130-400); RDW Coefficient of Variation 15.9 % (11.5-14.5); RDW Standard Deviation 51.7 fL (36.4-46.3); Red Blood Count 3.59 M/uL (4.70-6.10); White Blood Count 5.94 K/ul (4.8-10.8)
[2022-12-04 07:07] LABS: Calcium 8.7 mg/dl (8.6-10.3); Creatinine Clr Calc Pharmacy 86.3 ml/min; Est GFR (African American) 67.4 ml/min; Est GFR (Non-African American) 58.2 ml/min; Potassium 3.8 mmol/L (3.5-5.1)
[2022-12-04] MEDS: ALBUT/IPRATROP 3MG/0.5MG NEB 3 ML VIAL NEB SCH ×3 (07:11→17:08)
[2022-12-04] MEDS: dexAMETHasone 6 MG in SYRINGE 0 ML IV SCH (08:32)
[2022-12-04] MEDS: carvediloL 6.25 MG TAB PO SCH (08:32)
[2022-12-04] MEDS: GABAPENTIN 300 MG CAP PO SCH (08:32)
[2022-12-04] MEDS: ASCORBIC ACID 500 MG TAB PO SCH (08:32)
[2022-12-04] MEDS: allopurinoL 300 MG TAB PO SCH (08:32)
[2022-12-04] MEDS: ASPIRIN 81 MG ECTAB PO SCH (08:32)
[2022-12-04] MEDS: guaiFENesin 600 MG TABCR PO SCH (08:32)
[2022-12-04] MEDS: FAMOTIDINE 40 MG TABLET PO SCH (08:32)
[2022-12-04] MEDS: LANTUS PER UNIT CHARGE SC SCH (08:43)
[2022-12-04] MEDS ORDERED: REMDESIVIR 100 MG in SODIUM CHLORIDE 0.9% 230 ML IV SCH (12:00)
--- NOTE | 2022-12-04 13:57 | Pharmacy Report ---
Pharmacy Glycemic Short Note 2 - Date of Service December 04, 2022 - Glycemic Short BSG Results (Last 24 hours): 12/03/22 12/03/22 12/03/22 15:20 17:06 20:38 Glucose POC Glucose 347 H* 312 H* 366 H* 12/03/22 12/04/22 12/04/22 23:15 03:56 06:16 Glucose 204 H POC Glucose 365 H* 240 H 12/04/22 12/04/22 07:52 11:56 Glucose POC Glucose 199 H 204 H OUTPATIENT ANTIDIABETIC REGIMEN: * Levemir 60 units SQ BID * Novolog per sliding scale * Trulicity 0.75 mg SQ weekly * A1c = 9.5% (09/25/22) ASSESSMENT: 12/04: * Hema received 365 units of SQ insulin yesterday plus two IV insulin boluses and was persistently hyperglycemia * 160 units basal + 205 units bolus * BSGs all > 300 mg/dL * Fasting BSG is elevated but drastically improved (351 -> 204 mg/dL). * Post prandial BSG elevation persists despite tightening novolog correction factor and carb ratio last evening. Will further tighten carb ratio today. * Patient remains on dexamethasone IV daily. 12/03: * Hema is a 52 yo who presented with c/o cough, congestion, fever and shortness of breath. Positive for SARS-CoV-2. * He has been started on Remdesivir and dexamethasone IV. Severe hyperglycemia this am. * Patient was given a one time dose of Lantus 80 units last evening (home dose of 60 units + 20 additional units due to partial AM dose per med rec). * During past admission, patient required ~160 units of Lantus per day while on dexamethasone 4 mg IV q8h. Will start with 80 units this morning since BSG is > 300 mg/dL this AM and then dose per BSG scale moving forward. * Tighten Novolog parameters. PLAN FOR INPATIENT GLYCEMIC CONTROL: * Hold outpatient oral diabetes medications * Basal insulin * Lantus 80 units SQ this AM, then 70-90 units SQ q12 * Bolus insulin * NovoLog per scale ACHS or Q6hrs while NPO * Goal Range: Low 110 mg/dL - High 140 mg/dL * Correction Factor: 5 mg/dL/unit * Nutritional / Prandial insulin per carb ratio of 1 unit per 1.5 grams CHO consumed
--- NOTE | 2022-12-04 17:03 | Discharge Summary ---
Date of Service December 04, 2022 Admission HPI Per Admitting Provider Hema Grajeda is a 52 yo obese M who is known to the hospitalist service from previous admissions and carries a h/o DMT2, CKD, GERD, Hirschsprung's disease with chronic ileostomy, h/o IV drug abuse complicated by endocarditis requiring mitral valve repair, ANIBAL, CAD s/p CABG and stenting, h/o hep C, DVT/PE on Coumadin, and paraplegia. He presented to the ER today c/o cough, congestion, fever and shortness of breath. He was recently hospitalized at [facility] 09/24/22 to 09/28/22 due to scrotal abscess which required I&D, antibiotics, and antifungals. Patient also had findings of a kidney "cyst" that was concerning for renal cell ca and subsequently was referred to [facility] for IR biopsy. This procedure was completed on on 10/11 and was complicated by a hemorrhage for which he sought evaluation in the ER for flank pain on 10/17. He was transferred to [facility] and reports that he was discharged around October 21. Approximately 2 weeks after he was discharged he notes he developed a cough. He states that his cough has been nonproductive. On Monday of this week, he began having congestion, worsening cough, and shortness of breath. He states that he has been intermittently checking his oxygen at home and it has been "low at times" particularly in bed at night when he lays down to go to sleep. Yesterday, he developed a fever. He presented to the ER today via EMS was reportedly hypoxic with a sat of 88% and placed on 2L of nasal cannula with improvement in his oxygen to 98%. He has a known h/o ANIBAL, previously had a bipap device that he was using at but device was recalled and he has not yet received a new one. In the ER, he has been afebrile with a normal pulse ox of 92-94% on room air. He tested positive for COVID-19, neg for RSV and flu A/B. He has a h/o of having COVID in fall and has been vaccinated and boosted. He was also found to have a mildly elevated troponin of 41 without c/o chest pain. EKG is nonacute. He did not receive any breathing treatments or Decadron at the time of hospitalist assessment and is breathing comfortably. He was medicated with a dose of Zithromax and Rocephin. He has been referred for admission for further treatment. Principal Diagnosis covid infection with hypoxia, no pneumonia seen on cxr elevated troponin from demand ischemia chronic pain syndrome ileostomy chronic pike Discharge Data Allergies Allergy/AdvReac Type Severity Reaction Status Date / Time sulfamethoxazole AdvReac Unknown "Levels Verified 10/15/22 14:57 [From Bactrim] were up"-per [facility] trimethoprim [From Bactrim] AdvReac Unknown "Levels Verified 10/15/22 14:57 were up"-per [facility] Consultations 12/02/22 17:35 ED Decision to Admit Stat Hospital Course (1) COVID-19: Patient is improved we will not continue dexamethasone will be on home isolation (2) Elevated troponin: likely represents myocardial demand ischemia in the setting of COVID-19 infection no symptoms/signs of ACS despite prior h/o CAD (3) CKD (chronic kidney disease) stage 3, GFR 30-59 ml/min: Cr stable chronic stable with recent instrumentation of kidney (4) Chronic pain syndrome: Chronic/stable Continue OxyIR 15mg q4h prn pain (5) ANIBAL (obstructive sleep apnea): is supposed to be on NIPPV but his device was apparently part of the national recall and he has not secured a new device thus, not on formal treatment at this time (6) History of stroke: (7) S/P ileostomy: s/p colectomy for Hirschsprung's disease ileostomy functioning well (8) Chronic indwelling Pike catheter: exchanged this past MondayNovember 29 via homehealth exchanged every 30 days (9) Hypomagnesemia: Replete (10) Morbid obesity: BMI 46 (11) CAD (coronary atherosclerotic disease): prior h/o CABG (12) Hirschsprung's disease: (13) Paraplegia: (14) History of DVT (deep vein thrombosis): on chronic coumadin, also for pulmonary embolism Follow home INR program (15) Diabetes mellitus type 2, uncontrolled: a1c 9.5% in September Return to home insulin basal bolus therapy (16) Renal hemorrhage, left: complication of recent procedure at [facility] in late September had treatment for a complex cyst and following that procedure had renal hemorrhage Total Time Total Time Spent Total Time Spent (In Minutes): It required greater than 30 minutes to prepare this patient for discharge Discharge Plan Discharge Items Patient Disposition: Home - Self-Care Reason For Visit: COVID, HYPOXIA, ELEVATED TROP Discharge Diagnosis: covid infection hypoxia resolved Activity: Per Instructions section Activity Comment: continue to rest and recover Non-emergency contact: Primary Care Provider Call non-emergency contact if: your symptoms worsen Follow-up/Referrals: Demarcus Nicholson DO [Primary Care Provider] - Diet: Carb Consistent or DM2 Addtl Attending Provider Instructions: You have been diagnosed with covid infection, it would be recommended that you quarantine yourself for 10 days from your first test or first symptoms, and if at the 10th day you have no symptoms the you can come off quarantine but use common sense precautions. Quarantine means attempting to stay away from people who have not had an active covid infection in the past, and if you have to be around others to wear a mask even if you are indoors, do not share a room to sleep in with others until you are out of quarantine. If you still have symptoms at the 10th day, continue to quarantine until you are symptom free for 48 hours Pending Studies at Discharge: No Stand-Alone Forms: My [facility] [place], Smoking Cessation Medications and DC Order Prescriptions: Continued allopurinol 300 mg tablet 300 mg PO QAM carvedilol 6.25 mg tablet 6.25 mg PO BID Qty: 60 6RF Rx Instructions: must administer with a meal/food Kerendia 10 mg tablet 10 mg PO DAILY Rx Instructions: ON HOLD PER PT famotidine [Pepcid] 40 mg tablet 40 mg PO QAM insulin aspart U-100 [Novolog FlexPen U-100 Insulin] 100 unit/mL Insulin Pen 0 sliding scale dose SUBCUT TIDM clotrimazole-betamethasone 1-0.05 % cream 1 applic TOPICAL BID PRN (Reason: affected area) oxycodone 30 mg tablet 15 - 30 mg PO TID PRN (Reason: pain) Qty: 20 0RF warfarin 2.5 mg tablet See Rx Instructions .ROUTE .COMPLEX Rx Instructions: TAKES QPM Take 5 mg on mon, mon, and sun. Take 2.5 mg Monday, Monday, Monday, and . Recheck on Tuesdays. ascorbic acid (vitamin C) [Vitamin C] 500 mg Tablet 500 mg PO DAILY cholecalciferol (vitamin D3) [Vitamin D3] 125 mcg (5,000 unit) Tablet 125 mcg PO DAILY gabapentin 300 mg capsule 300 mg PO BID Trulicity 0.75 mg/0.5 mL pen injector 0.75 mg SUBCUT WK Rx Instructions: HAS NOT STARTED Levemir FlexTouch U-100 Insuln 100 unit/mL (3 mL) insulin pen 60 unit SUBCUT BID Discharge Orders: Discharge Order (Routine); Ordered 12/04/22 Ordered By: Jesse Castano Admission Data Admit Date/Time: 12/02/22 18:19 Attending Provider: Jesse Castano Admit Provider: Bora Perez Primary Care Provider: Demarcus Nicholson Other Providers: Bora Perez Other Interventions: Discharge Summary Assessment (RN) Last Done: 12/04/22 14:18 Coding Level of Care Code 78480 INP/OBS DISCH >30 MIN Diagnoses COVID-19 U07.1 Elevated troponin R77.8 CKD (chronic kidney disease) stage 3, GFR 30-59 ml/min N18.3 Chronic pain syndrome G89.4 ANIBAL (obstructive sleep apnea) G47.33 History of stroke Z86.73 S/P ileostomy Z93.2 Chronic indwelling Pike catheter Z97.8 Hypomagnesemia E83.42 Morbid obesity E66.01 CAD (coronary atherosclerotic disease) I25.10 Hirschsprung's disease Q43.1 Paraplegia G82.20 History of DVT (deep vein thrombosis) Z86.718 Diabetes mellitus type 2, uncontrolled Renal hemorrhage, left N28.89
== END 2022-12-04 17:52 | disposition home or self-care (01) ==
LOC: 2N 15:12 → ED 15:12 → SUATTDRO 18:19 → 2N 20:54

== ENCOUNTER 2023-03-08 21:01 | Inpatient (IN) ==
[2023-03-08] MEDS ORDERED: SODIUM CHLORIDE 0.9% 1000ML 1,000 ML IV ONE (23:31)
--- NOTE | 2023-03-09 00:04 | Emergency Department Note ---
Impression & Plan Sepsis, Acute kidney injury, Supratherapeutic INR, Acute hyperkalemia ED Provider Note CHIEF COMPLAINT: Rash on the legs and groin x4 days HISTORY OF PRESENT ILLNESS: This 52-year-old male patient presents to the emergency department via ambulance complaining of a rash on the bilateral lower extremities and groin which started about 4 days ago. The patient states the rash is quickly spreading. The rash is much more painful now than it was initially. He states it is very warm and uncomfortable. He has not taken any medications for his symptoms. He denies any urinary symptoms, but notes he has a suprapubic catheter which was placed several weeks ago. He denies any complications with the catheter placement. The patient denies fever, chills, nausea, or loss of appetite. They deny any URI symptoms. The patient has tried steroid cream at the recommendation of his perfume maker earlier today, and states that the rash significantly worsened. The patient states the rash is itc hy and painful and rates the discomfort as 8/10. No change in food, soap, detergents, or other environmental factors. No new medications. No weakness or numbness. REVIEW OF SYSTEMS: A 6 system review of systems was completed with positives and pertinent negatives listed in the HPI. ALLERGIES: Bactrim PHYSICAL EXAM: Vital Signs: Reviewed Nurse's notes, vital signs stable. GENERAL: This is a 52-year-old male, in no acute distress, well-developed, well- nourished. SKIN: Patchy, erythematous, warm rash diffusely over the bilateral lower extremities, groin, and scrotum. The rash does not appear to extend to the perineum. There is no induration or fluctuance to palpation in this area. Capillary refill less than 2 seconds. HEART: Regular rate and rhythm without murmurs, Rubs. LUNGS: CTA Bilaterally without Wheezes, Rhonchi, Rales. LYMPH: No Lymphadenopathy. ABDOMEN: No tenderness to palpation. Active bowel sounds all 4 quadrants. EKG, per my interpretation: Sinus tachycardia with ventricular rate of [address] elevation or depression. No T wave inversion. When compared to EKG completed in November of this year, T waves are slightly more peaked. EMERGENCY DEPARTMENT COURSE: The patient was seen and evaluated as above. Patient has concerning symptoms and examination for cellulitis. The patient is tachycardic. He was an extremely difficult stick and there was a delay in initiating IV fluids and antibiotics due to this. There is approximately 3 to 4-hour delay in being able to obtain IV access and lab work. Once IV access was obtained by Dr. Howell, labs were drawn. The patient was hydrated with IV fluids, but gently hydrated due to history of cardiac disease and CKD. Labs were reviewed. There was a leukocytosis of 23,000. Inflammatory markers signif icantly elevated. INR 4.2. Potassium was elevated at 7.5. EKG performed reviewed by myself and Dr. Howell as above. I did discuss the case and work very closely with Dr. Howell. Creatinine was elevated at 3.08, consistent with JUAREZ. Procalcitonin 1.69. Lactic acid 1.7. Urinalysis concerning for 3+ bacteria and blood. Patient was started on daptomycin and Zosyn. He was given calcium gluconate, albuterol nebulizer, insulin due to the hyperkalemia. Dr. Howell did speak with Dr. Ferro, metal furniture panel coverer on-call. We did discuss the case with Dr. [facility]. He did agree to see and evaluate the patient. CT imaging was performed and reviewed by myself and radiologist as noted. The patient will be admitted to the [facility] service for the sepsis, bacteremia, JUAREZ, and urinary tract infection. Please see hospitalist dictation regarding ongoing management and care of this patient. I have personally spent greater than 35 minutes of critical care time in the direct management of this patient to assess and manage high likelihood of life- threatening sepsis. This includes bedside care, interpretation of diagnostic studies, and testing, discussion with consultants, patient, and family members, documentation time, and other required patient management activities. This 35 minutes is in excess of all separately billable procedures. Differential diagnosis includes contact dermatitis, viral exanthem, urticaria, allergic reaction, Bailey-Nolan syndrome, toxic epidermal necrolysis, erythema multiforme, cellulitis, scabies, HSV, varicella, zoster, eczema, staph scalded skin syndrome, fungal infection, as well as other pathologies. I attest that I have personally reviewed the patient's current medication list. Patient was found to have normal blood pressure on screening and does not require follow-up. The chart was completed utilizing Dragon Speech voice recognition software. Grammatical errors, random word insertions, pronoun errors, and incomplete sentences are an occasional consequence of this system due to software limitations, ambient noise, and hardware issues. Any formal questions or concerns about the content, text, or information contained within the body of this dictation should be directly addressed to the provider for clarification. Past Med/Surg History Medical History Celiac disease Chronic indwelling Velazquez catheter Chronic kidney disease, stage 3a follows with [facility] Coronary artery disease CABG x 1 2012-VG to LAD, multiple stents, follows with [facility] Diastolic congestive heart failure EF 55-59% Difficult airway for intubation 01/18/22 Patient unable to be intubated with Glidescope 4 - good view but unable to pass ETT, Igel #5 easily placed and worked well DM type 2 (diabetes mellitus, type 2) IDDM GI bleed 2018 requiring 3 blood transfusions, transferred to [facility] with work-up not revealing clear cause per records Gout Hepatitis C TREATED Hirschsprung's disease History of blood transfusion 2018 in setting of GI bleed History of COVID-19 05/2021- no symptoms- no hospitalization History of CVA (cerebrovascular accident) 2012-admitted [facility] History of endocarditis TREATED AT [facility]-2012 History of GI bleed History of intravenous drug abuse Hx of pulmonary embolus Hyperlipidemia Morbid obesity Paraplegia Pulmonary emboli 05/2010-unknown cause- admitted and treated at [facility] Pulmonary hypertension Sleep apnea, organic NO DEVICE AT THIS TIME, HIS MACHINE WAS INVOLVED IN RECALL Surgical History H/O aortic root repair 05/2016- [facility] H/O cervical spine surgery for severe stenosis w/ myelopathy; 05/2022 - [facility] H/O mitral valve repair UNSURE-EITHER [facility] OR [facility] Hx of CABG 2012 [facility]- DUE TO ENDOCARDITIS, single vessel per records S/P brain surgery 2013- [facility] S/P cardiac cath S/P colostomy FOLLOWS W/ [facility] GI S/P ileostomy S/P ureteral stent placement 08/2022 - [facility] Family History Father Cardiac disorder Hypertension Prostate cancer Diabetes Coronary heart disease COPD (chronic obstructive pulmonary disease) Pacemaker Mother Hypertension Skin cancer Dementia Social History Smoking Status: Current every day smoker Tobacco Type: E-cigarettes / Vaping Second Hand Exposure: No; Do You Dip or Chew Tobacco: No; Hx Alcohol Use: No Hx Substance Use: Yes Last Used Substance: Unknown Preferred Language: Spanish Communication Ability: Effective Communication Ability Comment: NELDA SPEECH [employer] Closer Required: No Beliefs That Will Affect Care: None marital status: Single Current Living Situation: Parent Current Living Situation Comment: Lives with parents and has caregivers to come and help with ADLs current occupational status: employed 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 How many Children do You have: 2 Feels Safe at Home: Yes Assistive Devices: Hospital Bed, Mechanical Lift, Scooter/Electric Scooter and Wheelchair Allergies Allergies Allergy/AdvReac Type Severity Reaction Status Date / Time sulfamethoxazole AdvReac Unknown "Levels Verified 01/02/23 10:10 [From Bactrim] were up"-per [facility] trimethoprim [From Bactrim] AdvReac Unknown "Levels Verified 01/02/23 10:10 were up"-per [facility] Home Meds Home Medications Medication Instructions Recorded Confirmed insulin aspart U-100 100 unit/mL 0 sliding scale dose subcut TIDM 10/08/18 03/09/23 (3 mL) subcutaneous pen (Novolog per sliding scale FlexPen U-100 Insulin aspart) famotidine 40 mg tablet (Pepcid) 40 mg PO QAM 05/27/19 03/09/23 allopurinol 300 mg tablet 300 mg PO QAM 01/23/20 03/09/23 clotrimazole-betamethasone 1 1 applic topical BID PRN affected 02/24/22 03/09/23 %-0.05 % topical cream area cholecalciferol (vitamin D3) 125 125 mcg PO QAM 09/24/22 03/09/23 mcg (5,000 unit) tablet (Vitamin D3) gabapentin 300 mg capsule 300 mg PO BID 09/24/22 03/09/23 warfarin 2.5 mg tablet 5 mg PO QPM 09/24/22 03/09/23 dulaglutide 1.5 mg/0.5 mL 1.5 mg subcut WK 03/09/23 03/09/23 subcutaneous pen injector (Trulicity) finerenone 20 mg tablet (Kerendia) 20 mg PO DAILY 03/09/23 03/09/23 insulin detemir U-100 100 unit/mL 62 unit subcut BID 03/09/23 03/09/23 (3 mL) subcutaneous pen (Levemir FlexPen) oxycodone 30 mg tablet 30 mg PO TID 03/09/23 03/09/23 triamcinolone acetonide 0.1 % 1 applic topical UD 03/09/23 03/09/23 topical cream valsartan 40 mg tablet 40 mg PO QPM 03/09/23 03/09/23 Previous Rx's Medication Instructions Recorded carvedilol 6.25 mg tablet 6.25 mg PO BID #60 tabs 09/30/21 Results & Data (ED) Vital Signs Vital Signs - 24 hr 03/08/23 21:18 03/08/23 21:18 03/08/23 23:00 Temperature 36.6 C Temperature Source Oral Pulse Rate 120 H Pulse Rate [Bilateral] 118 H 126 H Respiratory Rate 19 20 20 Respiratory Effort / Characteristics Respiratory Depth Normal Normal Blood Pressure Blood Pressure [Right Arm] 149/123 H 134/62 Blood Pressure Mean Blood Pressure Mean [Right Arm] 131 86 Pulse Oximetry 97 96 Oxygen Delivery Method Room Air Sepsis Recent Fever Within 48 Hours Yes Sepsis New/Unexplained Change in Mental Status No Sepsis Action Taken by Nursing No Action Required 03/09/23 03:03 03/08/23 23:36 03/09/23 00:00 Temperature Temperature Source Pulse Rate 125 H 125 H Pulse Rate [Bilateral] 127 H Respiratory Rate 26 H 31 H 31 H Respiratory Effort / Characteristics Respiratory Depth Blood Pressure 143/90 H Blood Pressure [Right Arm] 107/65 Blood Pressure Mean 107 Blood Pressure Mean [Right Arm] 79 Pulse Oximetry 94 Oxygen Delivery Method Room Air Sepsis Recent Fever Within 48 Hours Sepsis New/Unexplained Change in Mental Status Sepsis Action Taken by Nursing 03/09/23 01:09 03/09/23 02:10 03/09/23 02:39 Temperature Temperature Source Pulse Rate 128 H Pulse Rate [Bilateral] 118 H Respiratory Rate 32 H 18 Respiratory Effort / Characteristics Spontaneous Respiratory Depth Blood Pressure 134/86 Blood Pressure [Right Arm] Blood Pressure Mean 102 Blood Pressure Mean [Right Arm] Pulse Oximetry 97 97 Oxygen Delivery Method Room Air Room Air Sepsis Recent Fever Within 48 Hours Sepsis New/Unexplained Change in Mental Status Sepsis Action Taken by Nursing 03/09/23 03:03 03/09/23 03:03 03/09/23 05:00 Temperature Temperature Source Pulse Rate 127 H 112 H Pulse Rate [Bilateral] Respiratory Rate 17 27 H Respiratory Effort / Characteristics Respiratory Depth Blood Pressure 107/65 Blood Pressure [Right Arm] Blood Pressure Mean 76 Blood Pressure Mean [Right Arm] Pulse Oximetry Oxygen Delivery Method Sepsis Recent Fever Within 48 Hours Sepsis New/Unexplained Change in Mental Status Sepsis Action Taken by Nursing 03/09/23 05:24 03/09/23 05:24 Temperature Temperature Source Pulse Rate 114 H Pulse Rate [Bilateral] Respiratory Rate 22 Respiratory Effort / Characteristics Respiratory Depth Blood Pressure 110/57 L Blood Pressure [Right Arm] Blood Pressure Mean 81 Blood Pressure Mean [Right Arm] Pulse Oximetry 94 Oxygen Delivery Method Room Air Sepsis Recent Fever Within 48 Hours Sepsis New/Unexplained Change in Mental Status Sepsis Action Taken by Nursing Laboratory Data 03/09/23 00:55 03/09/23 04:23 Lab Results 03/09/23 03/09/23 03/09/23 Range/Units 00:55 00:55 00:55 WBC 23.18 H (4.8-10.8) K/ul RBC 4.68 L (4.70-6.10) M/uL Hgb 13.9 L (14.0-18.0) g/dl POC Hgb (14.0-18.0) g/dl Hct 43.6 (42.0-52.0) % POC Hct (42-52) % MCV 93.2 (80.0-100.0) fL MCH 29.7 (25.0-34.0) pg MCHC 31.9 L (32.0-36.0) g/dL RDW Std Deviation 59.9 H (36.4-46.3) fL RDW Coeff of Lorenzo 17.2 H (11.5-14.5) % Plt Count 209 (130-400) K/uL MPV 9.6 (9.4-12.4) fL Immature Gran % (Auto) 0.7 % Neut % (Auto) 95.6 % Lymph % (Auto) 1.4 % [place] % (Auto) 2.1 % Eos % (Auto) 0.0 % Baso % (Auto) 0.2 % Neut # (Auto) 22.17 H (1.40-6.50) K/uL Lymph # (Auto) 0.32 L (1.2-3.4) K/uL [place] # (Auto) 0.49 (0.11-0.59) K/uL Eos # (Auto) 0.00 (0-0.50) K/uL Baso # (Auto) 0.04 (0-0.2) K/uL Immature Gran # (Auto) 0.16 (0.01-0.20) K/uL RBC Morphology Unremarkable ESR 114 H (0-20) mm/hr PT (9.0-12.0) Seconds INR (0.9-1.1) APTT (21.0-31.0) Seconds PTT Ratio POC Sodium (135-144) mmol/L Sodium (136-145) mmol/L POC Potassium (3.3-5.0) mmol/L Potassium (3.5-5.1) mmol/L POC Chloride (101-112) mmol/L Chloride (98-107) mmol/L Carbon Dioxide (21-32) mmol/L POC Total CO2 (24-31) mmol/L Anion Gap (3-11) POC Anion Gap (16-25) mmol/L POC BUN (7-18) mg/dl BUN (6-23) mg/dl Creatinine (0.6-1.4) mg/dl POC Creatinine (0.6-1.3) mg/dl Est Cr Clr Drug Dosing ml/min Est GFR ( Amer) ml/min Est GFR (Non-Af Amer) ml/min BUN/Creatinine Ratio (10-20) Glucose (70-99(Fasting)) mg/dl POC Glucose (70-99) mg/dl POC Glucose (other) (70-99) mg/dl Lactate 1.7 (0.4-2.0) mmol/L Calcium (8.6-10.3) mg/dl POC Ioniz Calcium Samina (1.12-1.32) mmol/l Magnesium (1.7-2.4) mg/dl Total Bilirubin (0.2-1.0) mg/dl AST (13-39) U/L ALT (7-52) U/L Alkaline Phosphatase (34-104) U/L C-Reactive Protein (0-0.5) mg/dl Total Protein (6.0-8.3) gm/dl Albumin (3.4-5.0) gm/dl Globulin (2.5-4.0) gm/dl Albumin/Globulin Ratio (0.9-2) Procalcitonin (0-0.5) ng/ml Urine Color Urine Appearance (Clear) Urine pH (4.5-7.5) Ur Specific Elgin (1.000-1.030) Urine Protein (Negative) Urine Glucose (UA) (Negative) Urine Ketones (Negative) Urine Blood (Negative) Urine Nitrite (Negative) Urine Bilirubin (Negative) Urine Urobilinogen (Negative) Ur Leukocyte Esterase (Negative) Urine WBC (Auto) (0-5) /hpf Urine RBC (Auto) (0-4) /hpf U Hyaline Cast (Auto) (0-5) /lpf U Epithel Cells (Auto) (0-5) /lpf Urine Bacteria (Auto) (Negative) SARS-CoV-2, RNA, NAAT (NEGATIVE) 03/09/23 03/09/23 03/09/23 Range/Units 00:55 00:55 00:55 WBC (4.8-10.8) K/ul RBC (4.70-6.10) M/uL Hgb (14.0-18.0) g/dl POC Hgb (14.0-18.0) g/dl Hct (42.0-52.0) % POC Hct (42-52) % MCV (80.0-100.0) fL MCH (25.0-34.0) pg MCHC (32.0-36.0) g/dL RDW Std Deviation (36.4-46.3) fL RDW Coeff of Lorenzo (11.5-14.5) % Plt Count (130-400) K/uL MPV (9.4-12.4) fL Immature Gran % (Auto) % Neut % (Auto) % Lymph % (Auto) % [place] % (Auto) % Eos % (Auto) % Baso % (Auto) % Neut # (Auto) (1.40-6.50) K/uL Lymph # (Auto) (1.2-3.4) K/uL [place] # (Auto) (0.11-0.59) K/uL Eos # (Auto) (0-0.50) K/uL Baso # (Auto) (0-0.2) K/uL Immature Gran # (Auto) (0.01-0.20) K/uL RBC Morphology ESR (0-20) mm/hr PT 41.7 H (9.0-12.0) Seconds INR 4.2 H (0.9-1.1) APTT 48.4 H* (21.0-31.0) Seconds PTT Ratio 1.7 POC Sodium (135-144) mmol/L Sodium 131 L (136-145) mmol/L POC Potassium (3.3-5.0) mmol/L Potassium 7.5 H* (3.5-5.1) mmol/L POC Chloride (101-112) mmol/L Chloride 106 (98-107) mmol/L Carbon Dioxide 14 L (21-32) mmol/L POC Total CO2 (24-31) mmol/L Anion Gap 11 (3-11) POC Anion Gap (16-25) mmol/L POC BUN (7-18) mg/dl BUN 108 H (6-23) mg/dl Creatinine 3.05 H (0.6-1.4) mg/dl POC Creatinine (0.6-1.3) mg/dl Est Cr Clr Drug Dosing 37.3 ml/min Est GFR ( Amer) 26.3 ml/min Est GFR (Non-Af Amer) 22.7 ml/min BUN/Creatinine Ratio 35.4 H (10-20) Glucose 187 H (70-99(Fasting)) mg/dl POC Glucose (70-99) mg/dl POC Glucose (other) (70-99) mg/dl Lactate (0.4-2.0) mmol/L Calcium 9.7 (8.6-10.3) mg/dl POC Ioniz Calcium Samina (1.12-1.32) mmol/l Magnesium 1.6 L (1.7-2.4) mg/dl Total Bilirubin 0.6 (0.2-1.0) mg/dl AST 16 (13-39) U/L ALT 14 (7-52) U/L Alkaline Phosphatase 262 H (34-104) U/L C-Reactive Protein 21.88 H (0-0.5) mg/dl Total Protein 8.3 (6.0-8.3) gm/dl Albumin 3.4 (3.4-5.0) gm/dl Globulin 4.9 H (2.5-4.0) gm/dl Albumin/Globulin Ratio 0.7 L (0.9-2) Procalcitonin 1.69 H (0-0.5) ng/ml Urine Color Urine Appearance (Clear) Urine pH (4.5-7.5) Ur Specific Elgin (1.000-1.030) Urine Protein (Negative) Urine Glucose (UA) (Negative) Urine Ketones (Negative) Urine Blood (Negative) Urine Nitrite (Negative) Urine Bilirubin (Negative) Urine Urobilinogen (Negative) Ur Leukocyte Esterase (Negative) Urine WBC (Auto) (0-5) /hpf Urine RBC (Auto) (0-4) /hpf U Hyaline Cast (Auto) (0-5) /lpf U Epithel Cells (Auto) (0-5) /lpf Urine Bacteria (Auto) (Negative) SARS-CoV-2, RNA, NAAT (NEGATIVE) 03/09/23 03/09/23 03/09/23 Range/Units 01:13 01:16 02:04 WBC (4.8-10.8) K/ul RBC (4.70-6.10) M/uL Hgb (14.0-18.0) g/dl POC Hgb 15.0 (14.0-18.0) g/dl Hct (42.0-52.0) % POC Hct 44 (42-52) % MCV (80.0-100.0) fL MCH (25.0-34.0) pg MCHC (32.0-36.0) g/dL RDW Std Deviation (36.4-46.3) fL RDW Coeff of Lorenzo (11.5-14.5) % Plt Count (130-400) K/uL MPV (9.4-12.4) fL Immature Gran % (Auto) % Neut % (Auto) % Lymph % (Auto) % [place] % (Auto) % Eos % (Auto) % Baso % (Auto) % Neut # (Auto) (1.40-6.50) K/uL Lymph # (Auto) (1.2-3.4) K/uL [place] # (Auto) (0.11-0.59) K/uL Eos # (Auto) (0-0.50) K/uL Baso # (Auto) (0-0.2) K/uL Immature Gran # (Auto) (0.01-0.20) K/uL RBC Morphology ESR (0-20) mm/hr PT (9.0-12.0) Seconds INR (0.9-1.1) APTT (21.0-31.0) Seconds PTT Ratio POC Sodium 136 (135-144) mmol/L Sodium (136-145) mmol/L POC Potassium 6.9 H* (3.3-5.0) mmol/L Potassium (3.5-5.1) mmol/L POC Chloride 109 (101-112) mmol/L Chloride (98-107) mmol/L Carbon Dioxide (21-32) mmol/L POC Total CO2 17 L (24-31) mmol/L Anion Gap (3-11) POC Anion Gap 18.0 (16-25) mmol/L POC BUN 116 H* (7-18) mg/dl BUN (6-23) mg/dl Creatinine (0.6-1.4) mg/dl POC Creatinine 3.4 H (0.6-1.3) mg/dl Est Cr Clr Drug Dosing ml/min Est GFR ( Amer) ml/min Est GFR (Non-Af Amer) ml/min BUN/Creatinine Ratio (10-20) Glucose (70-99(Fasting)) mg/dl POC Glucose (70-99) mg/dl POC Glucose (other) 192 H (70-99) mg/dl Lactate (0.4-2.0) mmol/L Calcium (8.6-10.3) mg/dl POC Ioniz Calcium Samina 1.30 (1.12-1.32) mmol/l Magnesium (1.7-2.4) mg/dl Total Bilirubin (0.2-1.0) mg/dl AST (13-39) U/L ALT (7-52) U/L Alkaline Phosphatase (34-104) U/L C-Reactive Protein (0-0.5) mg/dl Total Protein (6.0-8.3) gm/dl Albumin (3.4-5.0) gm/dl Globulin (2.5-4.0) gm/dl Albumin/Globulin Ratio (0.9-2) Procalcitonin (0-0.5) ng/ml Urine Color Yellow Urine Appearance Cloudy A (Clear) Urine pH 8.0 H (4.5-7.5) Ur Specific [place] 1.013 (1.000-1.030) Urine Protein 2+ H (Negative) Urine Glucose (UA) Negative (Negative) Urine Ketones Trace H (Negative) Urine Blood 3+ H (Negative) Urine Nitrite Negative (Negative) Urine Bilirubin Negative (Negative) Urine Urobilinogen Negative (Negative) Ur Leukocyte Esterase 2+ H (Negative) Urine WBC (Auto) >30 H (0-5) /hpf Urine RBC (Auto) 0-4 (0-4) /hpf U Hyaline Cast (Auto) 1-5 (0-5) /lpf U Epithel Cells (Auto) 5-10 H (0-5) /lpf Urine Bacteria (Auto) 3+ H (Negative) SARS-CoV-2, RNA, NAAT NEGATIVE (NEGATIVE) 03/09/23 03/09/23 Range/Units 04:23 05:50 WBC (4.8-10.8) K/ul RBC (4.70-6.10) M/uL Hgb (14.0-18.0) g/dl POC Hgb (14.0-18.0) g/dl Hct (42.0-52.0) % POC Hct (42-52) % MCV (80.0-100.0) fL MCH (25.0-34.0) pg MCHC (32.0-36.0) g/dL RDW Std Deviation (36.4-46.3) fL RDW Coeff of Lorenzo (11.5-14.5) % Plt Count (130-400) K/uL MPV (9.4-12.4) fL Immature Gran % (Auto) % Neut % (Auto) % Lymph % (Auto) % [place] % (Auto) % Eos % (Auto) % Baso % (Auto) % Neut # (Auto) (1.40-6.50) K/uL Lymph # (Auto) (1.2-3.4) K/uL [place] # (Auto) (0.11-0.59) K/uL Eos # (Auto) (0-0.50) K/uL Baso # (Auto) (0-0.2) K/uL Immature Gran # (Auto) (0.01-0.20) K/uL RBC Morphology ESR (0-20) mm/hr PT (9.0-12.0) Seconds INR (0.9-1.1) APTT (21.0-31.0) Seconds PTT Ratio POC Sodium (135-144) mmol/L Sodium 131 L (136-145) mmol/L POC Potassium (3.3-5.0) mmol/L Potassium 6.7 H* (3.5-5.1) mmol/L POC Chloride (101-112) mmol/L Chloride 108 H (98-107) mmol/L Carbon Dioxide 11 L (21-32) mmol/L POC Total CO2 (24-31) mmol/L Anion Gap 12 H (3-11) POC Anion Gap (16-25) mmol/L POC BUN (7-18) mg/dl BUN 109 H (6-23) mg/dl Creatinine 3.08 H (0.6-1.4) mg/dl POC Creatinine (0.6-1.3) mg/dl Est Cr Clr Drug Dosing 37.0 ml/min Est GFR ( Amer) 26.0 ml/min Est GFR (Non-Af Amer) 22.4 ml/min BUN/Creatinine Ratio 35.4 H (10-20) Glucose 238 H (70-99(Fasting)) mg/dl POC Glucose 231 H (70-99) mg/dl POC Glucose (other) (70-99) mg/dl Lactate (0.4-2.0) mmol/L Calcium 9.3 (8.6-10.3) mg/dl POC Ioniz Calcium Samina (1.12-1.32) mmol/l Magnesium 1.6 L (1.7-2.4) mg/dl Total Bilirubin (0.2-1.0) mg/dl AST (13-39) U/L ALT (7-52) U/L Alkaline Phosphatase (34-104) U/L C-Reactive Protein (0-0.5) mg/dl Total Protein (6.0-8.3) gm/dl Albumin (3.4-5.0) gm/dl Globulin (2.5-4.0) gm/dl Albumin/Globulin Ratio (0.9-2) Procalcitonin (0-0.5) ng/ml Urine Color Urine Appearance (Clear) Urine pH (4.5-7.5) Ur Specific [place] (1.000-1.030) Urine Protein (Negative) Urine Glucose (UA) (Negative) Urine Ketones (Negative) Urine Blood (Negative) Urine Nitrite (Negative) Urine Bilirubin (Negative) Urine Urobilinogen (Negative) Ur Leukocyte Esterase (Negative) Urine WBC (Auto) (0-5) /hpf Urine RBC (Auto) (0-4) /hpf U Hyaline Cast (Auto) (0-5) /lpf U Epithel Cells (Auto) (0-5) /lpf Urine Bacteria (Auto) (Negative) SARS-CoV-2, RNA, NAAT (NEGATIVE) Administered Medications Daptomycin 550 mg/ Syringe 11 mls @ 5.5 mls/min IV Q24H [facility]; Protocol Stop: 03/11/23 01:29 Last Admin: 03/09/23 02:40 Dose: 5.5 mls/min Documented By: TRACIE Discontinued Medications Albuterol (Albuterol 0.5% Neb Soln 2.5 Mg/0.5 Ml Vial) 10 mg NEB NOW STA Stop: 03/09/23 01:43 Last Admin: 03/09/23 02:10 Dose: 10 mg Documented By: LISA Dextrose (Dextrose 50% 50 Ml Syringe) 50 ml IV NOW STA Stop: 03/09/23 01:43 Last Admin: 03/09/23 02:05 Dose: 50 ml Documented By: TRACIE Dextrose (Dextrose 50% 50 Ml Syringe) 50 ml IV NOW STA Stop: 03/09/23 05:55 Last Admin: 03/09/23 06:12 Dose: 50 ml Documented By: Hydromorphone HCl (Hydromorphone Inj 0.5 Mg/0.5 Ml Syr) 0.25 mg IV NOW STA Stop: 03/09/23 05:53 Last Admin: 03/09/23 06:05 Dose: 0.25 mg Documented By: Sodium Chloride (Nss 1000ml) 1,000 mls @ 999 mls/hr IV .Q1H1M ONE Stop: 03/09/23 00:31 Last Infusion: 03/09/23 02:38 Dose: 0 mls/hr Documented By: Admin: 03/09/23 01:07 Dose: 999 mls/hr Documented By: TRACIE Calcium Gluconate () 1,000 mg in 60 mls @ 240 mls/hr IV NOW STA Stop: 03/09/23 01:33 Last Infusion: 03/09/23 01:59 Dose: 0 mls/hr Documented By: Admin: 03/09/23 01:39 Dose: 240 mls/hr Documented By: TRACIE Insulin Human Regular 10 units (/ Syringe) 9.9 mls @ 3 mls/sec IV ONE STA Stop: 03/09/23 01:43 Last Admin: 03/09/23 02:12 Dose: 3 mls/sec Documented By: TRACIE Co-signed By: JUAN Piperacillin Sod/Tazobactam Sod (Zosyn) 4.5 gm in 120 mls @ 240 mls/hr IV NOW ONE Stop: 03/09/23 02:11 Last Infusion: 03/09/23 03:25 Dose: 0 mls/hr Documented By: Admin: 03/09/23 02:43 Dose: 240 mls/hr Documented By: TRACIE Insulin Human Regular 10 units (/ Syringe) 9.9 mls @ 3 mls/sec IV NOW STA Stop: 03/09/23 06:00 Last Admin: 03/09/23 06:13 Dose: 3 mls/sec Documented By: Co-signed By: DEREK Imaging Data Radiologist's Impression: Abdomen/Pelvis CT 03/09/23 01:47 Exam(s): CT ABDOMEN + PELVIS Without Contrast EXAM: CT Abdomen and Pelvis Without Intravenous Contrast CLINICAL HISTORY: Reason for exam: scrotal pain/swelling/redness, sepsis. TECHNIQUE: Axial computed tomography images of the abdomen and pelvis without intravenous contrast. CTDI is 38.51 mGy and DLP is 1946.14 mGy-cm. Automated exposure control was utilized for the study. A dose lowering technique was utilized adhering to the principles of ALARA. COMPARISON: No relevant prior studies available. FINDINGS: Lung bases: Left lower lobe atelectasis. ABDOMEN: Liver: Unremarkable. Gallbladder and bile ducts: Cholelithiasis. No ductal dilation. Pancreas: Unremarkable. No ductal dilation. Spleen: Splenomegaly. Adrenals: Unremarkable. No mass. Kidneys and ureters: Mild left guillermina-nephric inflammatory changes no hydroureteronephrosis. No obstructing renal, ureteral, bladder calculi. Stomach and bowel: Postoperative changes of the colon with right lower quadrant colostomy. No obstruction. No mucosal thickening. PELVIS: Appendix: No findings to suggest acute appendicitis. Bladder: Suprapubic catheter. No stones. Reproductive: Unremarkable as visualized. ABDOMEN and PELVIS: Intraperitoneal space: Unremarkable. No free air. No significant fluid collection. Bones/joints: No acute fracture. No dislocation. Soft tissues: Unremarkable. Vasculature: Unremarkable. No abdominal aortic aneurysm. Lymph nodes: Unremarkable. No enlarged lymph nodes. IMPRESSION: 1. Left perinephric inflammatory changes without hydroureteronephrosis. 2. Suprapubic Velazquez catheter 3. Right lower quadrant colostomy 4. Cholelithiasis without evidence of acute cholecystitis Electronically signed by: Junior Birch MD 03/09/23 04:58 AM Discharge Plan Visit Data Chief Complaint: Groin Pain Stated Complaint: GO TO TRIAGE ED Provider: Cristopher Howell ED Midlevel Provider: Suad Covarrubias Discharge Problem: Sepsis, Acute kidney injury, Supratherapeutic INR, Acute hyperkalemia Forms Stand Alone Forms: [facility] Onlnine Prescriptions Prescriptions: No Action allopurinol 300 mg tablet 300 mg PO QAM carvedilol 6.25 mg tablet 6.25 mg PO BID Qty: 60 6RF Rx Instructions: must administer with a meal/food famotidine [Pepcid] 40 mg tablet 40 mg PO QAM insulin aspart U-100 [Novolog FlexPen U-100 Insulin] 100 unit/mL Insulin Pen 0 sliding scale dose SUBCUT TIDM clotrimazole-betamethasone 1-0.05 % cream 1 applic TOPICAL BID PRN (Reason: affected area) warfarin 2.5 mg tablet 5 mg PO QPM cholecalciferol (vitamin D3) [Vitamin D3] 125 mcg (5,000 unit) Tablet 125 mcg PO QAM gabapentin 300 mg capsule 300 mg PO BID triamcinolone acetonide 0.1 % cream 1 applic TOPICAL UD Trulicity 1.5 mg/0.5 mL pen injector 1.5 mg SUBCUT WK Rx Instructions: valsartan 40 mg tablet 40 mg PO QPM Kerendia 20 mg tablet 20 mg PO DAILY Levemir FlexPen 100 unit/mL (3 mL) insulin pen 62 unit SUBCUT BID oxycodone 30 mg tablet 30 mg PO TID Referrals Referrals: Demarcus Nicholson DO [Primary Care Provider] -
[2023-03-09 01:16] LABS: Hematocrit (blood only) 43.6 % (42.0-52.0); Hemoglobin 13.9 g/dl (14.0-18.0); Mean Corpuscular Hemoglobin 29.7 pg (25.0-34.0); Mean Corpuscular Hgb Conc 31.9 g/dL (32.0-36.0); Mean Corpuscular Volume 93.2 fL (80.0-100.0); Mean Platelet Volume 9.6 fL (9.4-12.4); Platelet Count 209 K/uL (130-400); RDW Coefficient of Variation 17.2 % (11.5-14.5); RDW Standard Deviation 59.9 fL (36.4-46.3); Red Blood Count 4.68 M/uL (4.70-6.10); White Blood Count 23.18 K/ul (4.8-10.8)
[2023-03-09] MEDS ORDERED: CALCIUM GLUCONATE 1,000 MG/60 ML BAG IV STA (01:19)
[2023-03-09 01:25] LABS: Appearance Urine Cloudy (Clear); Bacteria Urine Automated 3+ (Negative); Bilirubin Urine Negative (Negative); Blood Urine 3+ (Negative); Color Urine Yellow; Glucose Urine UA Negative (Negative); Ketones Urine Trace (Negative); Leukocyte Esterase Urine 2+ (Negative); Nitrite Urine Negative (Negative); RBC Urine Automated 0-4 /hpf (0-4); Specific Gravity Urine 1.013 (1.000-1.030); Urobilinogen Urine Negative (Negative); WBC Urine Automated >30 /hpf (0-5)
[2023-03-09 01:30] LABS: Protein Urine 2+ (Negative)
[2023-03-09 01:30] LABS: iSTAT Creatinine 3.4 mg/dl (0.6-1.3); iSTAT Ionized Calcium 1.3 mmol/l (1.12-1.32); iSTAT Potassium 6.9 mmol/L (3.3-5.0)
[2023-03-09 01:32] LABS: Albumin Globulin Ratio 0.7 (0.9-2); Albumin Level 3.4 gm/dl (3.4-5.0); BUN Creatinine Ratio 35.4 (10-20); Bilirubin,Total 0.6 mg/dl (0.2-1.0); C Reactive Protein 21.88 mg/dl (0-0.5); Calcium 9.7 mg/dl (8.6-10.3); Creatinine Clr Calc Pharmacy 37.3 ml/min; Est GFR (African American) 26.3 ml/min; Est GFR (Non-African American) 22.7 ml/min; Globulin 4.9 gm/dl (2.5-4.0); Magnesium 1.6 mg/dl (1.7-2.4); Potassium 7.5 mmol/L (3.5-5.1); Total Protein 8.3 gm/dl (6.0-8.3)
[2023-03-09 01:40] LABS: Basophils # (auto) 0.04 K/uL (0-0.2); Basophils % (auto) 0.2 %; Immature Granulocytes # (auto) 0.16 K/uL (0.01-0.20); Immature Granulocytes % (auto) 0.7 %; Lymphocytes # (auto) 0.32 K/uL (1.2-3.4); Lymphocytes % (auto) 1.4 %; Monocytes # (auto) 0.49 K/uL (0.11-0.59); Monocytes % (auto) 2.1 %; Neutrophils # (auto) 22.17 K/uL (1.40-6.50); Neutrophils % (auto) 95.6 %; RBC Morphology Unremarkable
[2023-03-09] MEDS ORDERED: PIPERACILLIN/TAZOBACTAM 4.5 GM/120 ML BAG IV ONE (01:42)
[2023-03-09] MEDS ORDERED: DEXTROSE 50% 50 ML SYRINGE IV STA ×2 (01:42→05:54)
[2023-03-09] MEDS ORDERED: INSULIN HUMAN REGULAR PER UNIT 10 UNITS in SYRINGE 9.9 ML IV STA ×2 (01:42→05:59)
[2023-03-09] MEDS ORDERED: ALBUTEROL 0.5% NEB SOLN 2.5 MG/0.5 ML VIAL NEB STA (01:42)
[2023-03-09 01:52] LABS: INR 4.2 (0.9-1.1); Partial Thromboplastin Ratio 1.7; Prothrombin Time 41.7 Seconds (9.0-12.0)
[2023-03-09 02:03] LABS: Partial Thromboplastin Time 48.4 Seconds (21.0-31.0)
[2023-03-09] MEDS: DAPTOmycin 550 MG in SYRINGE 0 ML IV SCH (02:40)
--- NOTE | 2023-03-09 04:59 | CT Scan Report ---
Exam(s): CT ABDOMEN + PELVIS Without Contrast EXAM: CT Abdomen and Pelvis Without Intravenous Contrast CLINICAL HISTORY: Reason for exam: scrotal pain/swelling/redness, sepsis. TECHNIQUE: Axial computed tomography images of the abdomen and pelvis without intravenous contrast. CTDI is 38.51 mGy and DLP is 1946.14 mGy-cm. Automated exposure control was utilized for the study. A dose lowering technique was utilized adhering to the principles of ALARA. COMPARISON: No relevant prior studies available. FINDINGS: Lung bases: Left lower lobe atelectasis. ABDOMEN: Liver: Unremarkable. Gallbladder and bile ducts: Cholelithiasis. No ductal dilation. Pancreas: Unremarkable. No ductal dilation. Spleen: Splenomegaly. Adrenals: Unremarkable. No mass. Kidneys and ureters: Mild left guillermina-nephric inflammatory changes no hydroureteronephrosis. No obstructing renal, ureteral, bladder calculi. Stomach and bowel: Postoperative changes of the colon with right lower quadrant colostomy. No obstruction. No mucosal thickening. PELVIS: Appendix: No findings to suggest acute appendicitis. Bladder: Suprapubic catheter. No stones. Reproductive: Unremarkable as visualized. ABDOMEN and PELVIS: Intraperitoneal space: Unremarkable. No free air. No significant fluid collection. Bones/joints: No acute fracture. No dislocation. Soft tissues: Unremarkable. Vasculature: Unremarkable. No abdominal aortic aneurysm. Lymph nodes: Unremarkable. No enlarged lymph nodes. IMPRESSION: 1. Left perinephric inflammatory changes without hydroureteronephrosis. 2. Suprapubic Velazquez catheter 3. Right lower quadrant colostomy 4. Cholelithiasis without evidence of acute cholecystitis Electronically signed by: Junior Birch MD 03/09/23 04:58 AM
[2023-03-09 05:09] LABS: BUN Creatinine Ratio 35.4 (10-20); Calcium 9.3 mg/dl (8.6-10.3); Est GFR (Non-African American) 22.4 ml/min; Magnesium 1.6 mg/dl (1.7-2.4); Potassium 6.7 mmol/L (3.5-5.1)
[2023-03-09] MEDS ORDERED: HYDROmorphone INJ 0.5 MG/0.5 ML SYR IV STA (05:52)
--- NOTE | 2023-03-09 06:00 | History & Physical Report ---
Date of Service March 09, 2023 Assessment & Plan (1) Bilateral cellulitis of lower leg: Plan: Patient is a 52-year-old male with a past medical history of uncontrolled type 2 diabetes, history of DVT and PE, diastolic congestive heart failure, obstructive sleep apnea, chronic indwelling suprapubic catheter, celiac disease, morbid obesity, diabetic nephropathy, CAD, CKD 3, hypertension, and previous CVA with right-sided adriana-plegia who presents to the emergency room for the chief complaint of rash. Patient found to have a cellulitis and is septic in addition to being hyperkalemic. Patient is going to be admitted for antibiotic therapy in addition to treatment for hyperkalemia. Currently hemodynamically stable. -Admit to telemetry with the indication of hyperkalemia -Daptomycin and Zosyn on board for antibiotic coverage for skin tosin with risk for Pseudomonas -Patient is status post 1 L bolus normal saline, will hold off of additional boluses for now given history of diastolic heart failure -Bilateral cellulitis resulting in sepsis based on tachycardia, tachypnea, and elevated white blood cell count -Normal lactate on admission -Suspect sepsis resulted in JUAREZ resulting in hyperkalemia as below (2) Hyperkalemia: Plan: - Potassium of 7.5 on admission, discussed with on-call lead miner blasting, Dr. Walton who did not feel there was a need for urgent dialysis at this time -Status post 20 units of regular insulin (given in 2 separate 10 unit doses) given with 50 mL of 50% dextrose -Every hour blood sugars -Every 4 hours BMP -Daily Veltassa for potassium excretion (3) Supratherapeutic INR: Plan: - Patient on warfarin for DVT prophylaxis due to multiple DVTs in the past with PEs as well -INR of 4.1 on admission, goal of 2-3 -Hold 7/20 dose of Coumadin (4) CAD (coronary atherosclerotic disease): Plan: - Noted, patient should be on secondary prevention but not seen in his history (5) CKD (chronic kidney disease) stage 3, GFR 30-59 ml/min: Plan: - JUAREZ on CKD likely prerenal in the setting of sepsis -Fluid bolus as above, nephrology consulted, appreciate recommendations (6) S/P ileostomy: Plan: - Routine care (7) History of stroke: Plan: - Right-sided hemiplegia as a result -No secondary prevention medications and history -PT and OT consulted to work with patient while in house (8) Diabetes mellitus type 2, uncontrolled: Plan: - Convert all medications to basal bolus insulin -Start with 50 units of Lantus twice daily with sliding scale -Pharmacy glycemic consult added, appreciate recommendations (9) Acute kidney injury: Plan: As above (10) HTN (hypertension): Plan: - Hold antihypertensives in the setting of sepsis (11) Diastolic congestive heart failure: Plan: - Hold beta-armen in the setting of sepsis (12) DVT prophylaxis: Plan: - Use of warfarin as above Plan Disposition: Admit to telemetry for antibiotic therapy, hyperkalemia treatment, JUAREZ treatment DVT prophylaxis: Warfarin, currently supratherapeutic Diet: Carb consistent CODE STATUS: Full code History of Present Illness Chief Complaint: Rash Primary Care Provider: Demarcus Nicholson DO Patient is a 52-year-old male with a past medical history of uncontrolled type 2 diabetes, history of DVT and PE, diastolic congestive heart failure, obstructive sleep apnea, chronic indwelling suprapubic catheter, celiac disease, morbid obesity, diabetic nephropathy, CAD, CKD 3, hypertension, and previous CVA with right-sided adriana-plegia who presents to the emergency room for the chief complaint of rash. Patient reports that since Monday, he has had progressively worsening, painful rash developing on his leg that is erythematous and hot to the touch. He saw the [facility] billing analyst for this and they prescribed a topical steroid. Patient reports that after applying this, it progressively became worse to the point that he was so concerned about the size a fellow need to be urgently seen. Patient called EMS and was brought to the hospital for further evaluation. ED course: Patient evaluated by one of our providers. Lab work taken and is significant for a white count of 23.2, INR of 4.2, PTT of 48.4, sodium of 131, potassium 7.5, creatinine of 3.08, magnesium of 1.6, alk phos of 262, C-reactive protein of 21.9, procalcitonin of 1.7, and urinalysis with positive leukocyte esterase white blood cells and bacteria. CT of the abdomen and pelvis showing left perinephric inflammatory changes without hydroureteronephrosis, suprapubic Velazquez catheter, right lower quadrant colostomy, and cholelithiasis without acute cholecystitis. EKG taken in the ED did show mildly peaked T waves. Patient was given 10 units of insulin with dextrose, calcium gluconate, daptomycin, Zosyn, a bolus of 1 L of normal saline. The hospitalist service was consulted for admission to the hospital for further management. Allergies Allergy/AdvReac Type Severity Reaction Status Date / Time sulfamethoxazole AdvReac Unknown "Levels Verified 01/02/23 10:10 [From Bactrim] were up"-per [facility] trimethoprim [From Bactrim] AdvReac Unknown "Levels Verified 01/02/23 10:10 were up"-per [facility] Home Medications Medication Instructions Recorded Confirmed Type insulin aspart U-100 100 unit/mL 0 sliding scale dose subcut TIDM 10/08/18 03/09/23 History (3 mL) subcutaneous pen (Novolog per sliding scale FlexPen U-100 Insulin aspart) famotidine 40 mg tablet (Pepcid) 40 mg PO QAM 05/27/19 03/09/23 History allopurinol 300 mg tablet 300 mg PO QAM 01/23/20 03/09/23 History carvedilol 6.25 mg tablet 6.25 mg PO BID #60 tabs 09/30/21 03/09/23 Rx clotrimazole-betamethasone 1 1 applic topical BID PRN affected 02/24/22 03/09/23 History %-0.05 % topical cream area cholecalciferol (vitamin D3) 125 125 mcg PO QAM 09/24/22 03/09/23 History mcg (5,000 unit) tablet (Vitamin D3) gabapentin 300 mg capsule 300 mg PO BID 09/24/22 03/09/23 History warfarin 2.5 mg tablet 5 mg PO QPM 09/24/22 03/09/23 History dulaglutide 1.5 mg/0.5 mL 1.5 mg subcut WK 03/09/23 03/09/23 History subcutaneous pen injector (Trulicity) finerenone 20 mg tablet (Kerendia) 20 mg PO DAILY 03/09/23 03/09/23 History insulin detemir U-100 100 unit/mL 62 unit subcut BID 03/09/23 03/09/23 History (3 mL) subcutaneous pen (Levemir FlexPen) oxycodone 30 mg tablet 30 mg PO TID 03/09/23 03/09/23 History triamcinolone acetonide 0.1 % 1 applic topical UD 03/09/23 03/09/23 History topical cream valsartan 40 mg tablet 40 mg PO QPM 03/09/23 03/09/23 History Past Med/Surg History Medical History Celiac disease Chronic indwelling Velazquez catheter Chronic kidney disease, stage 3a follows with [facility] Coronary artery disease CABG x 1 2012-VG to LAD, multiple stents, follows with [facility] Diastolic congestive heart failure EF 55-59% Difficult airway for intubation 01/18/22 Patient unable to be intubated with Glidescope 4 - good view but unable to pass ETT, Igel #5 easily placed and worked well DM type 2 (diabetes mellitus, type 2) IDDM GI bleed 2018 requiring 3 blood transfusions, transferred to [facility] with work-up not revealing clear cause per records Gout Hepatitis C TREATED Hirschsprung's disease History of blood transfusion 2018 in setting of GI bleed History of COVID-19 05/2021- no symptoms- no hospitalization History of CVA (cerebrovascular accident) 2012-admitted [facility] History of endocarditis TREATED AT [facility]-2012 History of GI bleed History of intravenous drug abuse Hx of pulmonary embolus Hyperlipidemia Morbid obesity Paraplegia Pulmonary emboli 05/2010-unknown cause- admitted and treated at [facility] Pulmonary hypertension Sleep apnea, organic NO DEVICE AT THIS TIME, HIS MACHINE WAS INVOLVED IN RECALL Surgical History H/O aortic root repair 05/2016- [facility] H/O cervical spine surgery for severe stenosis w/ myelopathy; 05/2022 - [facility] H/O mitral valve repair UNSURE-EITHER [facility] OR [facility] Hx of CABG 2012 [facility]- DUE TO ENDOCARDITIS, single vessel per records S/P brain surgery 2013- [facility] S/P cardiac cath S/P colostomy FOLLOWS W/ [facility] S/P ileostomy S/P ureteral stent placement 08/2022 - [facility] Family History Father Cardiac disorder Hypertension Prostate cancer Diabetes Coronary heart disease COPD (chronic obstructive pulmonary disease) Pacemaker Mother Hypertension Skin cancer Dementia Social History Smoking Status: Current every day smoker Tobacco Type: E-cigarettes / Vaping Second Hand Exposure: No; Do You Dip or Chew Tobacco: No; Hx Alcohol Use: No Hx Substance Use: Yes Last Used Substance: Unknown Preferred Language: Kiswahili Communication Ability: Effective Communication Ability Comment: GARBLED SPEECH [employer] Business Manager Required: No Beliefs That Will Affect Care: None marital status: Single Current Living Situation: Parent Current Living Situation Comment: Lives with parents and has caregivers to come and help with ADLs current occupational status: employed 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 How many Children do You have: 2 Feels Safe at Home: Yes Assistive Devices: Hospital Bed, Mechanical Lift, Scooter/Electric Scooter and Wheelchair Review of Systems Review of Systems: All systems reviewed & are unremarkable except as noted in HPI & below Physical Exam Constitutional: + ill appearing, + morbidly obese, + language barrier (heavy accent) and cooperative Eyes: + anicteric sclerae Neck: trachea midline, no thyromegaly Respiratory: Distant lung sound Cardiovascular: Rate/Rhythm: regular rhythm and + tachycardic distant heart sounds Gastrointestinal (Abdomen): Inspection/Auscultation: abdomen normal to inspection Right-sided colostomy in place with output. Dexcom in left lower quadrant. Musculoskeletal: Head/Neck/Chest: normocephalic and head atraumatic Skin: + rash There is a well demarcated, erythematous, hot rash that is more evident on the right lower extremity that does extend into the left lower extremity. Rash blanches easily. Neurologic: Right-sided hemiplegia Psychiatric: A+Ox3, euthymic affect Results & Data Results & Data Vital Signs (Past 12 Hours) Vital Signs Temp Pulse Pulse Resp BP BP Pulse Ox 03/09/23 05:24 110/57 L 03/09/23 05:24 114 H 22 94 03/09/23 05:00 112 H 27 H 03/09/23 03:03 127 H 17 03/09/23 03:03 107/65 03/09/23 02:39 97 03/09/23 02:10 118 H 18 97 03/09/23 01:09 128 H 32 H 134/86 03/09/23 00:00 125 H 31 H 03/08/23 23:36 125 H 31 H 143/90 H 03/09/23 03:03 127 H 26 H 107/65 94 03/08/23 23:00 126 H 20 134/62 03/08/23 21:18 36.6 C 118 H 20 149/123 H 96 03/08/23 21:18 120 H 19 97 O2 Del Method 03/09/23 05:24 03/09/23 05:24 Room Air 03/09/23 05:00 03/09/23 03:03 03/09/23 03:03 03/09/23 02:39 Room Air 03/09/23 02:10 Room Air 03/09/23 01:09 03/09/23 00:00 03/08/23 23:36 03/09/23 03:03 Room Air 03/08/23 23:00 03/08/23 21:18 03/08/23 21:18 Room Air Supervising Physician Co-Signing Physician Notes Attending addendum: I have physically seen this patient, have supervised the medical residents activities, and agree with the H&P unless as otherwise noted. Assessment and Plan: Hyperkalemia/JUAREZ on CKD- Potassium 7.5 Creatinine 3.05 with base 1.40 D50 followed by 10 regular insulin IV, and repeated a second time Calcium chloride 1 g IV Having difficulty obtaining appropriate IV access for follow-up laboratories Veltassa daily BMP every 4 hours Follow urine culture and sensitivity Consult nephrology, Dr. Walton had been consulted by the ED earlier, and and reports no indication for dialysis at this time Bilateral lower extremity cellulitis- Daptomycin IV and Zosyn IV for empiric broad-spectrum antibiotic coverage Likely contributing cause to acute kidney injury above Supratherapeutic INR- INR 4.1 No need to reverse at this time, hold warfarin, and recheck in a.m. Diabetes mellitus- Reduce Lantus dosing as discussed Patient Accu-Cheks with NovoLog SSI Pharmacy glycemic consult Remaining orders and notations as noted (10) HTN (hypertension) Hypertension type: essential hypertension Qualified Code(s): I10 - Essential (primary) hypertension
[2023-03-09] MEDS ORDERED: DEXTROSE 50% 50 ML SYRINGE IV PRN (08:28)
[2023-03-09] MEDS ORDERED: PHARMACY GLYCEMIC MGMT CONSULT PRN (08:28)
[2023-03-09] MEDS ORDERED: GLUCOSE 10 TAB/TUBE PO PRN (08:28)
[2023-03-09] MEDS ORDERED: GLUCAGON FOR INJ 1 MG VIAL SQ PRN (08:28)
[2023-03-09] MEDS ORDERED: CARBOHYDRATES FOR HYPOGLYCEMIA PO PRN (08:28)
[2023-03-09] MEDS ORDERED: GLUCOSE 40% GEL 15 GM TUBE PO PRN (08:28)
[2023-03-09] MEDS ORDERED: ACETAMINOPHEN 325 MG TAB PO PRN (08:28)
[2023-03-09] MEDS ORDERED: ONDANSETRON INJ 2 MG/ML 2 ML VIAL IV PRN (08:28)
[2023-03-09] MEDS ORDERED: POLYETHYLENE (MIRALAX) 17 GM PACK PO PRN (08:28)
[2023-03-09] MEDS ORDERED: MAGNESIUM SULFATE / D5W 1 GM/100 ML BAG IV ONE ×2 (08:35→16:43)
[2023-03-09] MEDS ORDERED: GABAPENTIN 300 MG CAP PO SCH (09:00)
[2023-03-09] MEDS ORDERED: oxyCODONE HCL IR 5 MG TAB (IMMEDIATE RELEASE) PO ONE (09:00)
[2023-03-09] MEDS ORDERED: PIPERACILLIN/TAZOBACTAM 4.5 GM in DEXTROSE 5% 100 ML IV SCH (09:00)
[2023-03-09] MEDS ORDERED: LANTUS PER UNIT CHARGE SQ SCH ×2 (09:00→21:00)
[2023-03-09] MEDS ORDERED: PATIROMER CALCIUM SORBITEX 8.4 GM PACK PO STA (09:02)
[2023-03-09] MEDS ORDERED: CALCIUM GLUCONATE 10% 1,000 MG in DEXTROSE 5% 50 ML IV ONE ×3 (09:04→21:00)
[2023-03-09] MEDS ORDERED: STAT IV STA ×4 (09:04→20:50)
[2023-03-09] MEDS: INSULIN ASPART PER UNIT CHARGE SC SCH ×4 (09:32→20:45)
[2023-03-09] MEDS ORDERED: SODIUM BICARBONATE 8.4% 150 MEQ in WATER, STERILE 1,000 ML IV SCH (09:45)
[2023-03-09 09:56] LABS: BUN Creatinine Ratio 33.9 (10-20); Calcium 9.1 mg/dl (8.6-10.3); Creatinine Clr Calc Pharmacy 34.8 ml/min; Est GFR (African American) 24.2 ml/min; Est GFR (Non-African American) 20.9 ml/min; Potassium 7.1 mmol/L (3.5-5.1)
[2023-03-09] MEDS ORDERED: SODIUM CHLORIDE 0.9% 1000ML 500 ML IV ONE (10:12)
--- NOTE | 2023-03-09 10:23 | Nephrology Consultation ---
Date of Consultation March 09, 2023 Assessment & Plan (1) Acute kidney injury: Non-oliguric. CT demonstrating kidneys to be unobstructed. Urine with >30 WBC, no RBC's. Check CK. Document strict I/O's. IVF boluses PRN for hypotension, goal MAP >65. Start IV NaHCO3 gtt at 125 ml/hr. Hold AM gabapentin. Dose reduced to once daily. Hold valsartan and finerenone. Potential indications for HD reviewed. Repeat labs this afternoon, if there is no significant improvement in kidney function emergent HD will be coordinated. Plan of care discussed with hospitalist team. (2) CKD (chronic kidney disease): Baseline creatinine ~1.7 mg/dL. Follows with [facility]. (3) Metabolic acidosis: Start NaHCO3 gtt at 125 ml/hr. (4) Hyperkalemia: EKG was not located and will be updated. Remains on tele monitor. IVF to en courage urine output. Patiromer given this AM. Encourage IV insulin. Patient likely to benefit from admission to ICU for close monitoring and insulin gtt. IV NaHCO3 replacement ordered. Additional calcium gluconate ordered. Repeat labs ~noon. If no significant improvement with supportive care, emergent dialysis will be coordinated. History of Present Illness Reason for Consultation: hyperkalemia, JUAREZ Requesting Physician: Alin Andrews DO Attending Physician: Jesse Castano MD History of Present Illness Mr. Hema Grajeda is a 52 year-old male with CKD III A3 attributed to DKD. He presented to the ER for evaluation of rash and lower extremity pain. The patient was admitted with acute kidney injury and hyperkalemia. I reviewed the plan of care with the hospitalist and ICU team this morning. Hema was seen and evaluated in the ER. He was resting comfortably in bed at the time of my assessment. Hema has a complicated medical history. He has a remote history of IV drug abuse and hepatitis C. He completed treatment with Har[facility] in 2017. In 2013, he was hospitalized with infectious endocarditics complicated by cranial abscess requiring craniotomy and drainage. CT surgery completed at that time for drainage and valve repair. He underwent mitral valve repair with autologous pericardial patch in 2016. He is debilitated and functionally reportedly parap legia with chronic right hemiparesis from CVA. Hema struggles with associated morbid obesity and uncontrolled diabetes mellitus. He has significant history of coronary artery disease s/p VG to LAD bypass and multiple PCI with stents. He uses BIPAP for ANIBAL and is maintained on allopurinol for a history of gout. He is anticoagulated for a history of DVT. HE has Hirschsprung's disease with chronic ileostomy. He has a chronic indwelling suprapubic catheter and history of recurrent UTI. Hema has been opiate dependent for management of chronic pain. In September, he underwent percutaneous kidney biopsy and ablation of a renal mass which was complicated by post procedure hemorrhage with bleeding. Pathology was reassuring. Hema follows with [facility] for his CKD. 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 In January, finerenone was increased and valsartan restarted. 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 Hema reports recent liquid ostomy output which he has attributed to changes in his diet. On Monday, he noted increased rectal leakage of fluid. He experienced some mild nausea that evening and woke the next morning with incr easing pain in both legs and erythema below his knees. Allergies Allergy/AdvReac Type Severity Reaction Status Date / Time sulfamethoxazole AdvReac Unknown "Levels Verified 01/02/23 10:10 [From Bactrim] were up"-[facility] trimethoprim [From Bactrim] AdvReac Unknown "Levels Verified 01/02/23 10:10 were up"-[facility] Home Medications Medication Instructions Recorded Confirmed Type insulin aspart U-100 100 unit/mL 0 sliding scale dose subcut TIDM 10/08/18 03/09/23 History (3 mL) subcutaneous pen (Novolog per sliding scale FlexPen U-100 Insulin aspart) famotidine 40 mg tablet (Pepcid) 40 mg PO QAM 05/27/19 03/09/23 History allopurinol 300 mg tablet 300 mg PO QAM 01/23/20 03/09/23 History carvedilol 6.25 mg tablet 6.25 mg PO BID #60 tabs 09/30/21 03/09/23 Rx clotrimazole-betamethasone 1 1 applic topical BID PRN affected 02/24/22 03/09/23 History %-0.05 % topical cream area cholecalciferol (vitamin D3) 125 125 mcg PO QAM 09/24/22 03/09/23 History mcg (5,000 unit) tablet (Vitamin D3) gabapentin 300 mg capsule 300 mg PO BID 09/24/22 03/09/23 History warfarin 2.5 mg tablet 5 mg PO QPM 09/24/22 03/09/23 History dulaglutide 1.5 mg/0.5 mL 1.5 mg subcut WK 03/09/23 03/09/23 History subcutaneous pen injector (Trulicity) finerenone 20 mg tablet (Kerendia) 20 mg PO DAILY 03/09/23 03/09/23 History insulin detemir U-100 100 unit/mL 62 unit subcut BID 03/09/23 03/09/23 History (3 mL) subcutaneous pen (Levemir FlexPen) oxycodone 30 mg tablet 30 mg PO TID 03/09/23 03/09/23 History triamcinolone acetonide 0.1 % 1 applic topical UD 03/09/23 03/09/23 History topical cream valsartan 40 mg tablet 40 mg PO QPM 03/09/23 03/09/23 History Patient History Medical History Celiac disease Chronic indwelling Velazquez catheter Chronic kidney disease, stage 3a follows with [facility] Coronary artery disease CABG x 1 2012-VG to LAD, multiple stents, follows with [facility] Diastolic congestive heart failure EF 55-59% Difficult airway for intubation 01/18/22 Patient unable to be intubated with Glidescope 4 - good view but unable to pass ETT, Igel #5 easily placed and worked well DM type 2 (diabetes mellitus, type 2) IDDM GI bleed 2018 requiring 3 blood transfusions, transferred to [facility] with work-up not revealing clear cause per records Gout Hepatitis C TREATED Hirschsprung's disease History of blood transfusion 2018 in setting of GI bleed History of COVID-19 05/2021- no symptoms- no hospitalization History of CVA (cerebrovascular accident) 2012-admitted [facility] History of endocarditis TREATED AT [facility] PRES[facility]-2012 History of GI bleed History of intravenous drug abuse Hx of pulmonary embolus Hyperlipidemia Morbid obesity Paraplegia Pulmonary emboli 05/2010-unknown cause- admitted and treated at [facility] Pulmonary hypertension Sleep apnea, organic NO DEVICE AT THIS TIME, HIS MACHINE WAS INVOLVED IN RECALL Surgical History H/O aortic root repair 05/2016- [facility] H/O cervical spine surgery for severe stenosis w/ myelopathy; 05/2022 - [facility] H/O mitral valve repair UNSURE-EITHER [facility] OR [facility] Hx of CABG [address] [facility] PRES- DUE TO ENDOCARDITIS, single vessel per records S/P brain surgery 2013- [facility] S/P cardiac cath S/P colostomy FOLLOWS W/ [facility] S/P ileostomy S/P ureteral stent placement 08/2022 - [facility] Family History Father Cardiac disorder Hypertension Prostate cancer Diabetes Coronary heart disease COPD (chronic obstructive pulmonary disease) Pacemaker Mother Hypertension Skin cancer Dementia Social History Smoking Status: Current every day smoker Tobacco Type: E-cigarettes / Vaping Second Hand Exposure: No; Do You Dip or Chew Tobacco: No; Hx Alcohol Use: No Hx Substance Use: Yes Last Used Substance: Unknown Preferred Language: [place] Communication Ability: Effective Communication Ability Comment: GARBLED SPEECH Bingo Caller Required: No Beliefs That Will Affect Care: None marital status: Single Current Living Situation: Parent Current Living Situation Comment: Lives with parents and has caregivers to come and help with ADLs current occupational status: employed 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 How many Children do You have: 2 Feels Safe at Home: Yes Assistive Devices: Hospital Bed, Mechanical Lift, Scooter/Electric Scooter and Wheelchair Review of Systems Review of Systems: All systems reviewed & are unremarkable except as noted in HPI & below Constitutional: no fever and no chills Physical Exam Constitutional: well developed and + morbidly obese; no acute distress and not ill appearing Eyes: no scleral abnormality and no corneal abnormality ENMT: Mouth: no oral mucosal abnormality and oral mucous membranes not dry Neck: normal visual inspection and trachea midline Respiratory: normal respiratory effort Auscultation: lungs clear to auscultation bilaterally and + diminished lung sounds Cardiovascular: Rate/Rhythm: regular rate Heart Sounds: normal S1 and normal S2 Extremities: + calf tenderness and + edema Musculoskeletal: Extremities: no cyanosis and no clubbing Skin: normal turgor and + erythema; no jaundice Neurologic: Motor/Sensory: no tremor and no asterixis Psychiatric: Orientation: alert and oriented x 3 Results & Data Vital Signs (Past 12 Hours) Vital Signs Pulse Pulse Resp BP BP Pulse Ox O2 Del Method 03/09/23 08:46 108 H 15 81/47 L 96 Room Air 03/09/23 08:46 108 H 15 96 Room Air 03/09/23 07:07 111 H 16 103/58 L 95 Room Air 03/09/23 06:25 98/49 L 03/09/23 06:25 110 H 23 97 Room Air 03/09/23 05:24 110/57 L 03/09/23 05:24 114 H 22 94 Room Air 03/09/23 05:00 112 H 27 H 03/09/23 03:03 127 H 17 03/09/23 03:03 107/65 03/09/23 02:39 97 Room Air 03/09/23 02:10 118 H 18 97 Room Air 03/09/23 01:09 128 H 32 H 134/86 03/09/23 00:00 125 H 31 H 03/08/23 23:36 125 H 31 H 143/90 H 03/09/23 03:03 127 H 26 H 107/65 94 Room Air 03/08/23 23:00 126 H 20 134/62 Laboratory Results Laboratory Results - last 24 hr 03/09/23 03/09/23 03/09/23 00:55 00:55 00:55 WBC 23.18 H RBC 4.68 L Hgb 13.9 L POC Hgb Hct 43.6 POC Hct MCV 93.2 MCH 29.7 MCHC 31.9 L RDW Std Deviation 59.9 H RDW Coeff of Lorenzo 17.2 H Plt Count 209 MPV 9.6 Immature Gran % (Auto) 0.7 Neut % (Auto) 95.6 Lymph % (Auto) 1.4 [place] % (Auto) 2.1 Eos % (Auto) 0.0 Baso % (Auto) 0.2 Neut # (Auto) 22.17 H Lymph # (Auto) 0.32 L [place] # (Auto) 0.49 Eos # (Auto) 0.00 Baso # (Auto) 0.04 Immature Gran # (Auto) 0.16 RBC Morphology Unremarkable ESR 114 H PT INR APTT PTT Ratio ABG pH ABG pCO2 ABG pO2 ABG HCO3 ABG O2 Saturation ABG Base Excess Kota Test Barometric Pressure Oxygen Given POC Sodium Sodium POC Potassium Potassium POC Chloride Chloride Carbon Dioxide POC Total CO2 Anion Gap POC Anion Gap POC BUN BUN Creatinine POC Creatinine Est Cr Clr Drug Dosing Est GFR ( Amer) Est GFR (Non-Af Amer) BUN/Creatinine Ratio Glucose POC Glucose POC Glucose (other) Lactate 1.7 Calcium POC Ioniz Calcium Samina Magnesium Total Bilirubin AST ALT Alkaline Phosphatase C-Reactive Protein Total Protein Albumin Globulin Albumin/Globulin Ratio Procalcitonin Urine Color Urine Appearance Urine pH Ur Specific [place] Urine Protein Urine Glucose (UA) Urine Ketones Urine Blood Urine Nitrite Urine Bilirubin Urine Urobilinogen Ur Leukocyte Esterase Urine WBC (Auto) Urine RBC (Auto) U Hyaline Cast (Auto) U Epithel Cells (Auto) Urine Bacteria (Auto) SARS-CoV-2, RNA, NAAT 03/09/23 03/09/23 03/09/23 00:55 00:55 00:55 WBC RBC Hgb POC Hgb Hct POC Hct MCV MCH MCHC RDW Std Deviation RDW Coeff of Lorenzo Plt Count MPV Immature Gran % (Auto) Neut % (Auto) Lymph % (Auto) [place] % (Auto) Eos % (Auto) Baso % (Auto) Neut # (Auto) Lymph # (Auto) [place] # (Auto) Eos # (Auto) Baso # (Auto) Immature Gran # (Auto) RBC Morphology ESR PT 41.7 H INR 4.2 H APTT 48.4 H* PTT Ratio 1.7 ABG pH ABG pCO2 ABG pO2 ABG HCO3 ABG O2 Saturation ABG Base Excess Kota Test Barometric Pressure Oxygen Given POC Sodium Sodium 131 L POC Potassium Potassium 7.5 H* POC Chloride Chloride 106 Carbon Dioxide 14 L POC Total CO2 Anion Gap 11 POC Anion Gap POC BUN BUN 108 H Creatinine 3.05 H POC Creatinine Est Cr Clr Drug Dosing 37.3 Est GFR ( Amer) 26.3 Est GFR (Non-Af Amer) 22.7 BUN/Creatinine Ratio 35.4 H Glucose 187 H POC Glucose POC Glucose (other) Lactate Calcium 9.7 POC Ioniz Calcium Samina Magnesium 1.6 L Total Bilirubin 0.6 AST 16 ALT 14 Alkaline Phosphatase 262 H C-Reactive Protein 21.88 H Total Protein 8.3 Albumin 3.4 Globulin 4.9 H Albumin/Globulin Ratio 0.7 L Procalcitonin 1.69 H Urine Color Urine Appearance Urine pH Ur Specific [place] Urine Protein Urine Glucose (UA) Urine Ketones Urine Blood Urine Nitrite Urine Bilirubin Urine Urobilinogen Ur Leukocyte Esterase Urine WBC (Auto) Urine RBC (Auto) U Hyaline Cast (Auto) U Epithel Cells (Auto) Urine Bacteria (Auto) SARS-CoV-2, RNA, NAAT 03/09/23 03/09/23 03/09/23 01:13 01:16 02:04 WBC RBC Hgb POC Hgb 15.0 Hct POC Hct 44 MCV MCH MCHC RDW Std Deviation RDW Coeff of Lorenzo Plt Count MPV Immature Gran % (Auto) Neut % (Auto) Lymph % (Auto) [place] % (Auto) Eos % (Auto) Baso % (Auto) Neut # (Auto) Lymph # (Auto) [place] # (Auto) Eos # (Auto) Baso # (Auto) Immature Gran # (Auto) RBC Morphology ESR PT INR APTT PTT Ratio ABG pH ABG pCO2 ABG pO2 ABG HCO3 ABG O2 Saturation ABG Base Excess Kota Test Barometric Pressure Oxygen Given POC Sodium 136 Sodium POC Potassium 6.9 H* Potassium POC Chloride 109 Chloride Carbon Dioxide POC Total CO2 17 L Anion Gap POC Anion Gap 18.0 POC BUN 116 H* BUN Creatinine POC Creatinine 3.4 H Est Cr Clr Drug Dosing Est GFR ( Amer) Est GFR (Non-Af Amer) BUN/Creatinine Ratio Glucose POC Glucose POC Glucose (other) 192 H Lactate Calcium POC Ioniz Calcium Samina 1.30 Magnesium Total Bilirubin AST ALT Alkaline Phosphatase C-Reactive Protein Total Protein Albumin Globulin Albumin/Globulin Ratio Procalcitonin Urine Color Yellow Urine Appearance Cloudy A Urine pH 8.0 H Ur Specific [place] 1.013 Urine Protein 2+ H Urine Glucose (UA) Negative Urine Ketones Trace H Urine Blood 3+ H Urine Nitrite Negative Urine Bilirubin Negative Urine Urobilinogen Negative Ur Leukocyte Esterase 2+ H Urine WBC (Auto) >30 H Urine RBC (Auto) 0-4 U Hyaline Cast (Auto) 1-5 U Epithel Cells (Auto) 5-10 H Urine Bacteria (Auto) 3+ H SARS-CoV-2, RNA, NAAT NEGATIVE 03/09/23 03/09/23 03/09/23 04:23 05:50 08:58 WBC RBC Hgb POC Hgb Hct POC Hct MCV MCH MCHC RDW Std Deviation RDW Coeff of Lorenzo Plt Count MPV Immature Gran % (Auto) Neut % (Auto) Lymph % (Auto) [place] % (Auto) Eos % (Auto) Baso % (Auto) Neut # (Auto) Lymph # (Auto) [place] # (Auto) Eos # (Auto) Baso # (Auto) Immature Gran # (Auto) RBC Morphology ESR PT INR APTT PTT Ratio ABG pH ABG pCO2 ABG pO2 ABG HCO3 ABG O2 Saturation ABG Base Excess Kota Test Barometric Pressure Oxygen Given POC Sodium Sodium 131 L POC Potassium Potassium 6.7 H* POC Chloride Chloride 108 H Carbon Dioxide 11 L POC Total CO2 Anion Gap 12 H POC Anion Gap POC BUN BUN 109 H Creatinine 3.08 H POC Creatinine Est Cr Clr Drug Dosing 37.0 Est GFR ( Amer) 26.0 Est GFR (Non-Af Amer) 22.4 BUN/Creatinine Ratio 35.4 H Glucose 238 H POC Glucose 231 H 275 H POC Glucose (other) Lactate Calcium 9.3 POC Ioniz Calcium Samina Magnesium 1.6 L Total Bilirubin AST ALT Alkaline Phosphatase C-Reactive Protein Total Protein Albumin Globulin Albumin/Globulin Ratio Procalcitonin Urine Color Urine Appearance Urine pH Ur Specific [place] Urine Protein Urine Glucose (UA) Urine Ketones Urine Blood Urine Nitrite Urine Bilirubin Urine Urobilinogen Ur Leukocyte Esterase Urine WBC (Auto) Urine RBC (Auto) U Hyaline Cast (Auto) U Epithel Cells (Auto) Urine Bacteria (Auto) SARS-CoV-2, RNA, NAAT 03/09/23 03/09/23 09:12 09:12 WBC RBC Hgb POC Hgb Hct POC Hct MCV MCH MCHC RDW Std Deviation RDW Coeff of Lorenzo Plt Count MPV Immature Gran % (Auto) Neut % (Auto) Lymph % (Auto) [place] % (Auto) Eos % (Auto) Baso % (Auto) Neut # (Auto) Lymph # (Auto) [place] # (Auto) Eos # (Auto) Baso # (Auto) Immature Gran # (Auto) RBC Morphology ESR PT INR APTT PTT Ratio ABG pH Cancelled ABG pCO2 Cancelled ABG pO2 Cancelled ABG HCO3 Cancelled ABG O2 Saturation Cancelled ABG Base Excess Cancelled Kota Test Cancelled Barometric Pressure Cancelled Oxygen Given Cancelled POC Sodium Sodium 129 L POC Potassium Potassium 7.1 H* POC Chloride Chloride 108 H Carbon Dioxide 11 L POC Total CO2 Anion Gap 10 POC Anion Gap POC BUN BUN 111 H Creatinine 3.27 H POC Creatinine Est Cr Clr Drug Dosing 34.8 Est GFR ( Amer) 24.2 Est GFR (Non-Af Amer) 20.9 BUN/Creatinine Ratio 33.9 H Glucose 310 H* POC Glucose POC Glucose (other) Lactate Calcium 9.1 POC Ioniz Calcium Samina Magnesium Total Bilirubin AST ALT Alkaline Phosphatase C-Reactive Protein Total Protein Albumin Globulin Albumin/Globulin Ratio Procalcitonin Urine Color Urine Appearance Urine pH Ur Specific [place] Urine Protein Urine Glucose (UA) Urine Ketones Urine Blood Urine Nitrite Urine Bilirubin Urine Urobilinogen Ur Leukocyte Esterase Urine WBC (Auto) Urine RBC (Auto) U Hyaline Cast (Auto) U Epithel Cells (Auto) Urine Bacteria (Auto) SARS-CoV-2, RNA, NAAT Diagnostic Findings Exam(s): CT ABDOMEN + PELVIS Without Contrast FINDINGS: Lung bases: Left lower lobe atelectasis. ABDOMEN: Liver: Unremarkable. Gallbladder and bile ducts: Cholelithiasis. No ductal dilation. Pancreas: Unremarkable. No ductal dilation. Spleen: Splenomegaly. Adrenals: Unremarkable. No mass. Kidneys and ureters: Mild left guillermina-nephric inflammatory changes no hydroureteronephrosis. No obstructing renal, ureteral, bladder calculi. Stomach and bowel: Postoperative changes of the colon with right lower quadrant colostomy. No obstruction. No mucosal thickening. PELVIS: Appendix: No findings to suggest acute appendicitis. Bladder: Suprapubic catheter. No stones. Reproductive: Unremarkable as visualized. ABDOMEN and PELVIS: Intraperitoneal space: Unremarkable. No free air. No significant fluid collection. Bones/joints: No acute fracture. No dislocation. Soft tissues: Unremarkable. Vasculature: Unremarkable. No abdominal aortic aneurysm. Lymph nodes: Unremarkable. No enlarged lymph nodes. IMPRESSION: 1. Left perinephric inflammatory changes without hydroureteronephrosis. 2. Suprapubic Velazquez catheter 3. Right lower quadrant colostomy 4. Cholelithiasis without evidence of acute cholecystitis PG Care Time/CCT Total # of Minutes Spent Total Time Spent with Patient: Total time spent is greater than 50% in coordination of care (as documented) at patient's floor/unit and/or counseling patient: 60 Coding Level of Care Code 43127 IN/OBS CONSULT LVL 5,80M Diagnoses Acute kidney injury N17.9 CKD (chronic kidney disease) N18.9 Metabolic acidosis E87.20 Hyperkalemia E87.5 Time Spent (min) 60
[2023-03-09 10:39] LABS: HCO3 VBG 11 mmol/L; Oxygen Saturation VBG 77.6 %; PCO2 VBG 31 mmHg (38-50); PO2 VBG 48 mmHg; pH VBG 7.17 (7.36-7.41)
[2023-03-09] MEDS: FAMOTIDINE 40 MG TABLET PO SCH (10:47)
--- NOTE | 2023-03-09 11:20 | Hospitalist Progress Note ---
Date of Service March 09, 2023 Assessment & Plan (1) Metabolic acidosis: (2) Acute kidney injury superimposed on chronic kidney disease: (3) Bilateral cellulitis of lower leg: (4) Bilateral hydronephrosis: (5) CAD (coronary atherosclerotic disease): (6) Chronic indwelling Velazquez catheter: (7) Chronic pain syndrome: (8) Diabetes mellitus type 2, uncontrolled: (9) Diastolic congestive heart failure: (10) Hypomagnesemia: (11) Myelopathy concurrent with and due to spinal stenosis of cervical region: (12) Morbid obesity: (13) ANIBAL (obstructive sleep apnea): Plan Attending: Dr. Castano Reason Critically Ill: Sepsis secondary to Bilateral LE cellulitis Patient started on daptomycin and Zosyn in the emergency department. Afebrile Lactic acid is 1.7 on admission. Repeat lactate is 0.9 mmol/L Leukocytosis with a WBC of 23,000 Tmax of 37.1 C over the last 24 hours Continue fluid hydration Blood cultures are pending Neuro - [facility] ICU: Patient alert and oriented and able to give history Cardiac - Patient currently hypotensive but maintaining a mean arterial pressure of 63. Systolic pressure was in the low 80s and patient was given an IV bolus of 500 cc of normal saline. This combined with bicarb drip resulted in systolic pressure being maintained in the low to mid 90s. Patient reports that his typical blood pressure at home is in the low 100s. However, it should be noted the patient was just recently started on valsartan and Kerendia in January If patient has further drop in MAP, consider addition of Levophed Continue to monitor in the intensive care unit for now Respiratory - Currently patient is oxygenating well at 98% on room air. Patient currently anticoagulated for pulmonary emboli -supratherapeutic with INR of 4.2 Patient also has history of obstructive sleep apnea and is on BiPAP at home. Unknown settings at this time. Will start the patient on BiPAP at 18/10 and titrate per protocol. Patient can use on BiPAP if available GI - Continue with famotidine No nausea or vomiting no acute complaints. Patient denies diarrhea RENAL/LYTES - Patient with elevated potassium and low magnesium. Patiromer and sodium bicarb was ordered last evening and started this morning Repeat labs at 1300 show persistent elevation of potassium and worsening creatinine Discussed with nephrology. Appreciate Dr. Walton's input -would like to initiate dialysis today. He will discuss with the ICU team as patient is hypertherapeutic with an INR 4.2 Patient does have an indwelling Velazquez catheter. Continue strict I's and O's - Indwelling Velazquez catheter ENDO - Type II diabetic with hemoglobin A1c of 9.5 Sugars were over 300 this morning. They have improved slightly. Most recent [id number] glucose is 218. Glycemic control team Is managing HEME - Hemoglobin is stable at 13.9. No active bleeding No history of blood dyscrasias ID - Bilateral lower extremity cellulitis -continue IV antibiotics. Procalcitonin elevated at 1.69 LINES/IV ACCESS - Patient currently has 4 peripheral IVs. All 4 flushed but only 2 were able to draw Suspect the patient will need central line access. We will hold off for now pending determination with dialysis. If dialysis is needed, consider trialysis catheter DVT PROPHYLAXIS - Patient currently anticoagulated with a supratherapeutic INR 4.2 History of pulmonary embolus as well as deep vein thrombosis We will need to transition to alternative anticoagulant should the patient need invasive intervention CCT: 90 minutes independent of any procedures Thank you for including us in the care of this patient. Please refer to Dr. Castano's addendum for further recommendations. Admission and Anticipated Discharge Date Admission Date: March 09, 2023 Subjective Attending: Dr. Castano This is a 52-year-old male that originates from [place]. patient presented to the emergency department last night and was admitted for bilateral lower extremity cellulitis. Patient was noted to have hyperkalemia, hyponatremia, hypomagnesemia, acute on chronic kidney failure. ER physician contacted assistant financial accountant and got recommendations for treatment. These medications were not initiated last night. This morning the patient is hypotensive and continues to have elevated potassium. In addition, he was found to have a BSG of 310. Patient transferred to the intensive care unit for further management. Repeat labs are pending. Review of Systems Review of Systems: A total of 10 systems was reviewed and is negative other than as listed in the HPI Physical Exam Physical Exam: GENERAL : No acute distress EYES: No icterus, gaze conjugate. Pupils equal round and reactive to light NOSE: No evidence of epistaxis MOUTH: No lesions or candidiasis. Tongue is midline NECK: Supple LUNGS: CTA B/L, no wheezes, rales or rhonchi. Good inspirational effort HEART: Regular, rate controlled ABDOMEN: Soft, NT, ND, BS Present EXTREMITIES: bilateral LE edema, pedal pulses intact and equal bilaterally. Significant erythema to both lower extremities without weeping NEURO: A&OX3. However, patient seems somewhat lethargic Results & Data Results & Data Vital Signs (Past 12 Hours) Vital Signs Pulse Pulse Resp BP BP Pulse Ox O2 Del Method 03/09/23 11:03 101 H 18 70/35 L 96 Room Air 03/09/23 08:46 108 H 15 81/47 L 96 Room Air 03/09/23 08:46 108 H 15 96 Room Air 03/09/23 07:07 111 H 16 103/58 L 95 Room Air 03/09/23 06:25 98/49 L 03/09/23 06:25 110 H 23 97 Room Air 03/09/23 05:24 110/57 L 03/09/23 05:24 114 H 22 94 Room Air 03/09/23 05:00 112 H 27 H 03/09/23 03:03 127 H 17 03/09/23 03:03 107/65 03/09/23 02:39 97 Room Air 03/09/23 02:10 118 H 18 97 Room Air 03/09/23 01:09 128 H 32 H 134/86 03/09/23 00:00 125 H 31 H 03/08/23 23:36 125 H 31 H 143/90 H 03/09/23 03:03 127 H 26 H 107/65 94 Room Air Critical Care Results & Data Vital Signs (Past 12 Hours) Vital Signs Pulse Pulse Resp BP BP Pulse Ox O2 Del Method 03/09/23 11:03 101 H 18 70/35 L 96 Room Air 03/09/23 08:46 108 H 15 81/47 L 96 Room Air 03/09/23 08:46 108 H 15 96 Room Air 03/09/23 07:07 111 H 16 103/58 L 95 Room Air 03/09/23 06:25 98/49 L 03/09/23 06:25 110 H 23 97 Room Air 03/09/23 05:24 110/57 L 03/09/23 05:24 114 H 22 94 Room Air 03/09/23 05:00 112 H 27 H 03/09/23 03:03 127 H 17 03/09/23 03:03 107/65 07/20/23 02:39 97 Room Air 03/09/23 02:10 118 H 18 97 Room Air 03/09/23 01:09 128 H 32 H 134/86 03/09/23 00:00 125 H 31 H 03/08/23 23:36 125 H 31 H 143/90 H 03/09/23 03:03 127 H 26 H 107/65 94 Room Air Lab & Micro Results (Past 24 Hours) No Data to Display Na 135 mmol/L (136-145) L 03/11/23 K 3.9 mmol/L (3.5-5.1) 03/11/23 Cl 99 mmol/L (98-107) 03/11/23 CO2 32 mmol/L (21-32) 03/11/23 Anion Gap 4 (3-11) 03/11/23 BUN 74 mg/dl (6-23) H 03/11/23 Creatinine 2.45 mg/dl (0.6-1.4) H 03/11/23 Estimated GFR ( Amer) 34.3 ml/min 03/11/23 Estimated GFR (Non-Af Amer) 29.6 ml/min 03/11/23 BUN/Creatinine Ratio 30.2 (10-20) H 03/11/23 Glu 105 mg/dl (70-99(Fasting)) H 03/11/23 Ca 8.8 mg/dl (8.6-10.3) 03/11/23 Phosphorus Level 3.4 mg/dl (2.5-4.9) 03/11/23 Calcium Level 8.8 mg/dl (8.6-10.3) 03/11/23 04:24 Prothromb Time International Ratio 6.1 (0.9-1.1) H* 03/11/23 0 4:24 Venous Blood pH 7.38 (7.36-7.41) 03/10/23 23:04 Venous Blood Partial Pressure CO2 51 mmHg (38-50) H 03/10/23 23 :04 Venous Blood Partial Pressure O2 38 mmHg 03/10/23 23:04 Venous Blood HCO3 30 mmol/L 03/10/23 23:04 Venous Blood Base Excess 3.9 mEq/L 03/10/23 23:04 Venous Blood Oxygen Saturation 63.1 % 03/10/23 23:04 Diagnostic Findings (Past 24 Hours) Abdomen/Pelvis CT 03/09/23 01:47 Exam(s): CT ABDOMEN + PELVIS Without Contrast EXAM: CT Abdomen and Pelvis Without Intravenous Contrast CLINICAL HISTORY: Reason for exam: scrotal pain/swelling/redness, sepsis. TECHNIQUE: Axial computed tomography images of the abdomen and pelvis without intravenous contrast. CTDI is 38.51 mGy and DLP is 1946.14 mGy-cm. Automated exposure control was utilized for the study. A dose lowering technique was utilized adhering to the principles of ALARA. COMPARISON: No relevant prior studies available. FINDINGS: Lung bases: Left lower lobe atelectasis. ABDOMEN: Liver: Unremarkable. Gallbladder and bile ducts: Cholelithiasis. No ductal dilation. Pancreas: Unremarkable. No ductal dilation. Spleen: Splenomegaly. Adrenals: Unremarkable. No mass. Kidneys and ureters: Mild left guillermina-nephric inflammatory changes no hydroureteronephrosis. No obstructing renal, ureteral, bladder calculi. Stomach and bowel: Postoperative changes of the colon with right lower quadrant colostomy. No obstruction. No mucosal thickening. PELVIS: Appendix: No findings to suggest acute appendicitis. Bladder: Suprapubic catheter. No stones. Reproductive: Unremarkable as visualized. ABDOMEN and PELVIS: Intraperitoneal space: Unremarkable. No free air. No significant fluid collection. Bones/joints: No acute fracture. No dislocation. Soft tissues: Unremarkable. Vasculature: Unremarkable. No abdominal aortic aneurysm. Lymph nodes: Unremarkable. No enlarged lymph nodes. IMPRESSION: 1. Left perinephric inflammatory changes without hydroureteronephrosis. 2. Suprapubic Velazquez catheter 3. Right lower quadrant colostomy 4. Cholelithiasis without evidence of acute cholecystitis Electronically signed by: Junior Birch MD 03/09/23 04:58 AM I & O Totals 24 Hours 03/08/23 03/09/23 03/10/23 06:59 06:59 06:59 Intake Total 1180 / 1180 100 / 100 Output Total 800 / 800 Balance 380 / 380 100 / 100 Cumulative 03/08/23 20:47 thru 03/09/23 08:46 Intake Total 1280 Output Total 800 Balance 480 RT Ventilator Mngmt (Last Documented) Ventilator Ordered Settings Respiratory Rate 18 03/09/23 11:03 Ventilator - PT Measurements Respiratory Rate 18 PG Care Time/CCT Total # of Minutes Spent Total Time Spent with Patient: Total time spent is greater than 50% in coordination of care (as documented) at patient's floor/unit and/or counseling patient: Coding Level of Care Code 81899 SUB INP/OBS CARE 3/50MIN Medical Decision Making High Complexity Diagnoses Metabolic acidosis E87.20 Acute kidney injury superimposed on chronic kidney disease N17.9; N18.9 Bilateral cellulitis of lower leg L03.116; L03.115 Bilateral hydronephrosis N13.30 CAD (coronary atherosclerotic disease) I25.10 Chronic indwelling Velazquez catheter Z97.8 Chronic pain syndrome G89.4 Diabetes mellitus type 2, uncontrolled Diastolic congestive heart failure I50.30 Hypomagnesemia E83.42 Myelopathy concurrent with and due to spinal stenosis of cervical region M48.02; G99.2 Morbid obesity E66.01 ANIBAL (obstructive sleep apnea) G47.33 Time Spent (min) 90 Comment 90 minutes of critical care time
[2023-03-09] MEDS ORDERED: PATIROMER CALCIUM SORBITEX 8.4 GM PACK PO SCH (12:00)
[2023-03-09 13:13] LABS: BUN Creatinine Ratio 29.9 (10-20); Calcium 9.2 mg/dl (8.6-10.3); Creatinine Clr Calc Pharmacy 31.8 ml/min; Est GFR (African American) 21.7 ml/min; Est GFR (Non-African American) 18.7 ml/min; Potassium 6.2 mmol/L (3.5-5.1)
--- NOTE | 2023-03-09 13:56 | Pharmacy Report ---
Pharmacy Glycemic Short Note 2 - Date of Service March 09, 2023 - Glycemic Short BSG Results (Last 24 hours): 03/09/23 03/09/23 03/09/23 00:55 01:16 04:23 Glucose 187 H 238 H POC Glucose POC Glucose (other) 192 H 03/09/23 03/09/23 03/09/23 05:50 08:58 09:12 Glucose 310 H* POC Glucose 231 H 275 H POC Glucose (other) 03/09/23 03/09/23 11:51 12:30 Glucose 282 H POC Glucose 264 H POC Glucose (other) OUTPATIENT ANTIDIABETIC REGIMEN: * Levemir 62 units BID * Trulicity 1.5 mg SQ weekly * HbA1C pending ASSESSMENT: * Mr Grajeda is a 52 y/o M with a PMH of T2Dm who presents with cellulitis. Patient is currently admitted to the ICU. * Patient is currently on Zosyn + Daptomycin. He has an JUAREZ (currently creatinine is 3 and baseline is 1.4 mg/dL). * Admitting BSG was 187 mg/dL overnight but patient received two IV 10 unit insulin boluses + an amp of D50 for hyperkalemia. * On admission to ICU, BSWG was 264 mg/dL. * For Lantus, will start 30 units BID (alternate doses available for low and high blood sugars). Most previous data for patient is when he is on high dose steroids. * For Novolog, Will use weight-based stress of 2-3. PLAN FOR INPATIENT GLYCEMIC CONTROL: * Hold outpatient diabetes medications * Basal insulin * Lantus 30 units SQ BID (20 units if BSG < 120 mg/dL; 40 units if BSG > 180 mg/dL) * Bolus insulin * NovoLog per scale ACHS or Q6hrs while NPO * Goal Range: Low 110 mg/dL - High 140 mg/dL * Correction Factor: 15 mg/dL/unit * Nutritional / Prandial insulin per carb ratio of 1 unit per 5 grams CHO consumed
[2023-03-09] MEDS ORDERED: oxyCODONE HCL IR 30 MG TAB (IMMEDIATE RELEASE) PO SCH (14:00)
--- NOTE | 2023-03-09 14:15 | Critical Care Consultation ---
Date of Consultation March 09, 2023 Assessment & Plan (1) Hyperkalemia: (2) Acute kidney injury superimposed on chronic kidney disease: (3) Cellulitis of both lower extremities: Plan Reason Critically Ill: 52-year-old male with an extensive past medical history who presents to the ICU with acute renal failure with oliguria and hyperkalemia with concerns of sepsis for skin versus urinary source. NEURO - * CAM ICU: Currently positive * Somnolence: * Patient does arouse with noxious stimuli. Bedside glucose remained elevated at greater than 200. ABG obtained which demonstrates no worsening CO2 narcosis. * Review of chart shows the patient did receive a one-time dose of 30 mg of Oxy IR. He does typically take 30 mg 3 times daily, however this is in the setting of his baseline renal function and not in the setting of profound kidney injury. Certainly could be source of patient's somnolence. * Repeat labs to be obtained at this time as uremia could also be playing part in this as well. * Consider brain imaging if his mental status were to continue to decline. * Does not appear to have focal neurological deficits other than his described baseline deficits. * Chronic pain issues: * On oxycodone 30 mg 3 times daily. * Will hold sedative medications. * Paraplegia and history of CVA. CARDIAC/VASCULAR - * Borderline hypotension - * Responded to IV fluid resuscitation. * Will check cortisol level. * Vasopressors as needed. * Hold home antihypertensive medications for now. * EKG: Emergency department EKG demonstrates a sinus tachycardia at 126 bpm. Peak waves noted septal and anteriorly. QTc 486 ms. * Monitor on telemetry. RESPIRATORY - * No reported history of pulmonary disease that I am able to find from the patient's records. * Obstructive sleep apnea: * Patient significantly desaturates. Orders placed for home CPAP settings. GI/NUTRITION - * History of celiac disease and ileostomy. * DMII, renal diet. * Prophylaxis: remains on famotidine. RENAL/LYTES - * ARF: * Acute on chronic renal failure with questionable source. * Will add CPK in the setting of lower extremity findings. * Continue w/ HCO3 gtt per Nephro. * Boluses as tolerated. * Hyperkalemia: * Secondary to ARF. * Potassium slowly improving after initiation of HCO3 gtt, V[place], insulin, IVF, Ca2+ * Continue to monitor for improvement. * Defer to Nephro for decision for HD if needed. * Metabolic Acidosis: * Likely 2/2 ARF. * Will trend VBG. * Continue w/ HCO3 gtt for now. * IVF: 3 Amps of NaHCO3 in Sterile Water @ 125 mL/hr. - * Suprapubic catheter: * Awaiting uring cultures in the chronic indwelling catheter for ??sepsis source. * Strict I&Os. ENDO - * Hyperglycemia: * Initially received aggressive insulin boluses in the setting of hyperkalemia. Appears to be refractory with most recent blood sugars in the 200s. * Will place the patient on insulin drip which will help to control blood sugar and hopefully help drive down patient's potassium as well. HEME - * Supratherapeutic INR * If patient were to require invasive procedures, would recommend treating with IV vitamin K and FFP prior to intervention. ID - * Sepsis - * Likely from skin source of the bilateral lower extremities versus urine. * On review of patient's records, he has grown out resistant Serratia marcescens which has been resistant to Zosyn in the past. * Will place the patient on ertapenem and continue daptomycin. * Blood cultures pending * Will obtain images of the lower extremities to evaluate for air producing organisms in addition to the cellulitic findings. LINES/IV ACCESS - * PIVs x4 * Indwelling Velazquez catheter. DVT PROPHYLAXIS - * Currently supratherapeutic with an INR >4. * SCDs I have personally spent 45 minutes of critical care time in the direct management of this patient. This is a life/limb threatening event. This includes time spent evaluating patient, direct bedside care, chart review, placing orders, interpretation of diagnostic studies, discussion with consultants, patient, and family members, as well as other required patient management activities. This time is exclusive of all separately billable procedures, and teaching time and separate from and in addition to any other critical care service time. Thank you for allowing us to participate in the care of this patient. Please refer to my attending physician's documentation for any further recommendations. Supervising Physician Co-Signing Physician Notes Patient seen and examined. EMR reviewed. Discussed with MICHELL and agree with assessment plan as noted. Discussed extensively with machining engineer on several occasions today. The patient is admitted to the ICU for monitoring of acute renal failure and hyperkalemia. He has been treated with bicarb with improvement in his acid-base status. His hemodynamics are stable. He is on antibiotics for lower extremity cellulitis. We will proceed with imaging of the lower extremities to ensure no gas formation. Check CPK. Continue to follow kidney function and electrolytes. Hopefully the patient can avoid needing renal replacement therapy. High likelihood of sleep disordered breathing. We will have the patient bring his CPAP machine in from home when able. Otherwise we will use our machine while sleeping. Patient will be transferred out of the ICU once his electrolytes and acid-base status are improved. 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 Paraplegia related to endocarditis infection per conversation with pro vider. Unfortunately, the patient is somnolent on evaluation in the ICU and unable to contribute to HPI at this point. Unfortunately, the patient has been treated in the outpatient setting for bilateral lower extremity cellulitis which has worsened which prompted visit to the emergency department. During evaluation, the patient was noted to be significantly hyperkalemic with a potassium of 7.5. He was aggressively managed with insulin, dextrose, calcium, and fluids. Unfortunately, his potassium has been slow to improve. His urine output has dropped off as well. He is admitted to the ICU for concerning hyperkalemia in the setting of sepsis from possible urinary versus skin source. Allergies Allergy/AdvReac Type Severity Reaction Status Date / Time sulfamethoxazole AdvReac Unknown "Levels Verified 01/02/23 10:10 [From Bactrim] were up"-per [facility] trimethoprim [From Bactrim] AdvReac Unknown "Levels Verified 01/02/23 10:10 were up[facility] Medication Instructions Recorded Confirmed Type insulin aspart U-100 100 unit/mL 0 sliding scale dose subcut TIDM 10/08/18 03/09/23 History (3 mL) subcutaneous pen (Novolog per sliding scale FlexPen U-100 Insulin aspart) famotidine 40 mg tablet (Pepcid) 40 mg PO QAM 05/27/19 03/09/23 History allopurinol 300 mg tablet 300 mg PO QAM 01/23/20 03/09/23 History carvedilol 6.25 mg tablet 6.25 mg PO BID #60 tabs 09/30/21 03/09/23 Rx clotrimazole-betamethasone 1 1 applic topical BID PRN affected 02/24/22 03/09/23 History %-0.05 % topical cream area cholecalciferol (vitamin D3) 125 125 mcg PO QAM 09/24/22 03/09/23 History mcg (5,000 unit) tablet (Vitamin D3) gabapentin 300 mg capsule 300 mg PO BID 09/24/22 03/09/23 History warfarin 2.5 mg tablet 5 mg PO QPM 09/24/22 03/09/23 History dulaglutide 1.5 mg/0.5 mL 1.5 mg subcut WK 03/09/23 03/09/23 History subcutaneous pen injector (Trulicity) finerenone 20 mg tablet (Kerendia) 20 mg PO DAILY 03/09/23 03/09/23 History insulin detemir U-100 100 unit/mL 62 unit subcut BID 03/09/23 03/09/23 History (3 mL) subcutaneous pen (Levemir FlexPen) oxycodone 30 mg tablet 30 mg PO TID 03/09/23 03/09/23 History triamcinolone acetonide 0.1 % 1 applic topical UD 03/09/23 03/09/23 History topical cream valsartan 40 mg tablet 40 mg PO QPM 03/09/23 03/09/23 History Patient History Medical History Celiac disease Chronic indwelling Velazquez catheter Chronic kidney disease, stage 3a follows with [facility] Coronary artery disease CABG x 1 2012-VG to LAD, multiple stents, follows with [facility] Diastolic congestive heart failure EF 55-59% Difficult airway for intubation 01/18/22 Patient unable to be intubated with Glidescope 4 - good view but unable to pass ETT, Igel #5 easily placed and worked well DM type 2 (diabetes mellitus, type 2) IDDM GI bleed 2017 requiring 3 blood transfusions, transferred to [facility] with work-up not revealing clear cause per records Gout Hepatitis C TREATED Hirschsprung's disease History of blood transfusion 2018 in setting of GI bleed History of COVID-19 05/2021- no symptoms- no hospitalization History of CVA (cerebrovascular accident) 2012-admitted [facility] [place] History of endocarditis TREATED AT [facility]-2012 History of GI bleed History of intravenous drug abuse Hx of pulmonary embolus Hyperlipidemia Morbid obesity Paraplegia Pulmonary emboli 05/2010-unknown cause- admitted and treated at [facility] Pulmonary hypertension Sleep apnea, organic NO DEVICE AT THIS TIME, HIS MACHINE WAS INVOLVED IN RECALL Surgical History H/O aortic root repair 05/2016- [facility] H/O cervical spine surgery for severe stenosis w/ myelopathy; 05/2022 - [facility] H/O mitral valve repair UNSURE-[facility]ER [facility] OR [facility] Hx of CABG 2012 [facility]- DUE TO ENDOCARDITIS, single vessel per records S/P brain surgery 2013- [facility] S/P cardiac cath S/P colostomy FOLLOWS W/ [facility] GI S/P ileostomy S/P ureteral stent placement 08/2022 - [facility] Family History Father Cardiac disorder Hypertension Prostate cancer Diabetes Coronary heart disease COPD (chronic obstructive pulmonary disease) Pacemaker Mother Hypertension Skin cancer Dementia Social History Smoking Status: Current every day smoker Tobacco Type: E-cigarettes / Vaping Second Hand Exposure: No; Do You Dip or Chew Tobacco: No; Hx Alcohol Use: No Hx Substance Use: Yes Last Used Substance: Unknown Preferred Language: Kazakh Communication Ability: Effective Communication Ability Comment: NELDA SPEECH Direct Service Provider Required: No Beliefs That Will Affect Care: None marital status: Single Current Living Situation: Parent Current Living Situation Comment: Lives with parents and has caregivers to come and help with ADLs current occupational status: employed 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 Physical Exam Physical Exam: VITAL SIGNS - Vital signs and nursing notes were reviewed. GENERAL - 52-year-old male appearing his stated age who is in no acute distress. Somnolent but arouses to noxious stimuli. SKIN -beefy red rash noted to the shins anteriorly bilaterally with overlying patches of dry skin. Area is significantly tender to palpation. No bullae or lymphangitic streaking appreciated. HEAD - NC/AT. EYES -pupils equal and small bilaterally. NOSE - Midline and without cyanosis. MOUTH/OROPHARYNX - Without perioral cyanosis. NECK - Neck with FROM. Supple to palpation. LUNGS -clear breath sounds without wheezes, rales, or rhonchi. CARDIAC - RRR with S1/S2. No murmur, rubs, or gallops appreciated. ABDOMEN - Abdominal contour obese without pulsations or visible masses. Prior surgical scars noted throughout. RIGHT lower quadrant ostomy with liquid stool output, suprapubic catheter in place. EXTREMITIES -cellulitis to the bilateral lower extremities as described above. Range of motion of the LEFT upper extremity appreciated. NEUROLOGIC -unable to fully assess secondary to patient's somnolence. He does move his LEFT upper extremity fully and withdraws his LEFT lower extremity to pain. 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 No other focal findings on exam. Results & Data Results & Data Vital Signs (Past 12 Hours) Vital Signs Temp Pulse Pulse Resp BP BP Pulse Ox 03/09/23 11:55 37.1 C 03/09/23 11:55 03/09/23 11:55 95 H 03/09/23 13:12 93 H 16 98 03/09/23 12:35 03/09/23 11:45 97 H 14 95/46 L 93 03/09/23 11:03 101 H 18 70/35 L 96 03/09/23 08:46 108 H 15 81/47 L 96 03/09/23 08:46 108 H 15 96 03/09/23 07:07 111 H 16 103/58 L 95 03/09/23 06:25 98/49 L 03/09/23 06:25 110 H 23 97 03/09/23 05:24 110/57 L 03/09/23 05:24 114 H 22 94 03/09/23 05:00 112 H 27 H 03/09/23 03:03 127 H 17 03/09/23 03:03 107/65 03/09/23 02:39 97 03/09/23 03:03 127 H 26 H 107/65 94 Pulse Ox O2 Del Method O2 Del Method FiO2 03/09/23 11:55 03/09/23 11:55 98 Room Air 03/09/23 11:55 03/09/23 13:12 28 03/09/23 12:35 BiPAP 03/09/23 11:45 Room Air 03/09/23 11:03 Room Air 03/09/23 08:46 Room Air 03/09/23 08:46 Room Air 03/09/23 07:07 Room Air 03/09/23 06:25 03/09/23 06:25 Room Air 03/09/23 05:24 03/09/23 05:24 Room Air 03/09/23 05:00 03/09/23 03:03 03/09/23 03:03 03/09/23 02:39 Room Air 03/09/23 03:03 Room Air Coding Level of Care Code 10344 CRITICAL CARE 1ST 30-74M Diagnoses Hyperkalemia E87.5 Acute kidney injury superimposed on chronic kidney disease N17.9; N18.9 Cellulitis of both lower extremities L03.115; L03.116
[2023-03-09] MEDS ORDERED: SEVERE STRESS LEVEL ONE (14:28)
[2023-03-09] MEDS ORDERED: INSULIN PROTOCOL GOAL RANGE ONE (14:28)
--- NOTE | 2023-03-09 14:35 | Electrocardiogram Report ---
Test Reason : Blood Pressure : / mmHG Vent. Rate : 126 BPM Atrial Rate : 126 BPM P-R Int : 198 ms QRS Dur : 084 ms QT Int : 336 ms P-R-T Axes : 019 025 032 degrees QTc Int : 486 ms Sinus tachycardia with 1st degree AV block Possible Left atrial enlargement Borderline ECG When compared with ECG of 02-DEC-2022 15:21, Nonspecific T wave abnormality, improved in Anterolateral leads Confirmed by Jeronimo Kovacs ([id number]) on 03/09/2023 2:35:13 PM Referred By: REFERRED SELF Confirmed By:Bryan Kovacs
[2023-03-09] MEDS ORDERED: INSULIN REGULAR 250 UNITS in SODIUM CHLORIDE 0.9% 247.5 ML IV SCH (15:00)
[2023-03-09 15:18] LABS: iSTAT Allen Test Pass; iSTAT Art Bld Gas pCO2 Correct 36 mmHg (35-46); iSTAT Art Bld Gas pH Corrected 7.215 (7.35-7.45); iSTAT Arterial Blood Gas HCO3 15 meg/L (19-24); iSTAT Arterial Blood Gas pCO2 36 mmHg (35-46); iSTAT Arterial Blood Gas pH 7.22 (7.35-7.45); iSTAT Arterial Blood Gas pO2 < 32 mmHg (80-95); iSTAT Arterial Blood Gas pO2 C 24; iSTAT Carbon Dioxide 16 mmol/L (24-31); iSTAT FiO2 21 %; iSTAT Hematocrit 39 % (42-52); iSTAT Hemoglobin 13.3 g/dl (14.0-18.0); iSTAT Potassium 5.8 mmol/L (3.3-5.0); iSTAT Site R Radial; iSTAT Sodium 127 mmol/L (135-144)
[2023-03-09] MEDS: ERTAPENEM SODIUM 1,000 MG in SYRINGE 0 ML IV SCH (15:26)
[2023-03-09] MEDS ORDERED: WARFARIN SOD 5 MG TAB PO SCH (16:00)
[2023-03-09] MEDS ORDERED: MEROPENEM 500 MG in SYRINGE 0 ML IV SCH (16:00)
[2023-03-09 16:14] LABS: Base Excess VBG 15.9 mEq/L; HCO3 VBG 47 mmol/L; Oxygen Saturation VBG < 60.0 %; PCO2 VBG 96 mmHg (38-50); PO2 VBG 26 mmHg
[2023-03-09 16:39] LABS: Calcium 6.4 mg/dl (8.6-10.3); Creatinine Clr Calc Pharmacy 50.2 ml/min; Est GFR (African American) 37.6 ml/min; Est GFR (Non-African American) 32.4 ml/min; Magnesium 1.3 mg/dl (1.7-2.4); Potassium 4.3 mmol/L (3.5-5.1)
[2023-03-09] MEDS ORDERED: SODIUM CHLORIDE 0.9% 1000ML 1,000 ML IV SCH (16:45)
--- NOTE | 2023-03-09 17:15 | XRay Report ---
XR tibia fibula RT 2V CLINICAL HISTORY: overlying infection COMPARISON: Right knee radiographs August 17, 2015. FINDINGS: No fracture within the right tibia or fibula is identified. No bony erosion is identified. There is extensive vascular calcification. No soft tissue gas is identified by radiography. IMPRESSION: No significant osseous abnormality within the right tibia or fibula. No evidence for acut e osteomyelitis. ACT 112: Negative or not required by law. Electronically signed by: Jaime Arias M.D. 03/09/2023 5:13 PM
--- NOTE | 2023-03-09 17:17 | XRay Report ---
XR tibia fibula LT 2V CLINICAL HISTORY: overlying infection COMPARISON: Left ankle radiographs April 10, 2016. FINDINGS: There is no fracture within the left tibia or fibula. No bony erosions are identified. Ext ensive vascular calcification is incidentally noted. No radiographic evidence for soft tissue gas. IMPRESSION: No significant osseous abnormality of the left tibia or fibula. No radiographic evidence for acute osteomyelitis. ACT 112: Negative or not required by law. Electronically signed by: Jaime Arias M.D. 03/09/2023 5:15 PM
--- NOTE | 2023-03-09 18:03 | Ultrasound Report ---
BILATERAL LOWER EXTREMITY VENOUS DOPPLER CLINICAL HISTORY: B/L LE cellulitis COMPARISON STUDY: Right lower extremity venous Doppler ultrasound November 01, 2020. Bilateral lower ex tremity venous Doppler ultrasound March 15, 2022. TECHNIQUE: Sonography of the deep venous system of the bilateral lower extremities was performed. Co mpression and augmentation were evaluated. FINDINGS: The bilateral common femoral, superficial femoral and popliteal veins were compressible. A ugmentation was normal. Flow was shown within the deep calf vessels. IMPRESSION: No evidence of deep venous thrombus within the bilateral lower extremities. ACT 112: Negative or not required by law. Electronically signed by: Jaime Arias M.D. 03/09/2023 6:01 PM
[2023-03-09] MEDS: ICU ELECTROLYTE REPLACEMENT PROTOCOL SCH (18:44)
[2023-03-09] MEDS ORDERED: SODIUM CHLORIDE 0.9% 1000ML 1,000 ML IV ONE (19:31)
[2023-03-09 19:44] LABS: Calcium 9.7 mg/dl (8.6-10.3); Potassium 6.3 mmol/L (3.5-5.1)
[2023-03-09 19:49] LABS: BUN Creatinine Ratio 29.7 (10-20); Creatinine Clr Calc Pharmacy 30.4 ml/min; Est GFR (African American) 20.6 ml/min; Est GFR (Non-African American) 17.7 ml/min
[2023-03-09] MEDS ORDERED: SODIUM BICARB 8.4% INJ 50 MEQ/50 ML SYR IV STA (20:24)
[2023-03-09 20:28] LABS: iSTAT Allen Test Pass; iSTAT Art Bld Gas pCO2 Correct 38 mmHg (35-46); iSTAT Art Bld Gas pH Corrected 7.185 (7.35-7.45); iSTAT Arterial Blood Gas HCO3 14 meg/L (19-24); iSTAT Arterial Blood Gas pCO2 38 mmHg (35-46); iSTAT Arterial Blood Gas pH 7.19 (7.35-7.45); iSTAT Arterial Blood Gas pO2 35 mmHg (80-95); iSTAT Arterial Blood Gas pO2 C 35; iSTAT Carbon Dioxide 16 mmol/L (24-31); iSTAT FiO2 21 %; iSTAT Hematocrit 37 % (42-52); iSTAT Hemoglobin 12.6 g/dl (14.0-18.0); iSTAT Potassium 5.4 mmol/L (3.3-5.0); iSTAT Site L Radial; iSTAT Sodium 133 mmol/L (135-144)
[2023-03-09 20:28] LABS: iSTAT Allen Test Pass; iSTAT Art Bld Gas pCO2 Correct 44 mmHg (35-46); iSTAT Art Bld Gas pH Corrected 7.157 (7.35-7.45); iSTAT Arterial Blood Gas HCO3 16 meg/L (19-24); iSTAT Arterial Blood Gas pCO2 44 mmHg (35-46); iSTAT Arterial Blood Gas pH 7.16 (7.35-7.45); iSTAT Arterial Blood Gas pO2 86 mmHg (80-95); iSTAT Arterial Blood Gas pO2 C 87; iSTAT Carbon Dioxide 17 mmol/L (24-31); iSTAT FiO2 21 %; iSTAT Hematocrit 36 % (42-52); iSTAT Hemoglobin 12.2 g/dl (14.0-18.0); iSTAT Potassium 5.8 mmol/L (3.3-5.0); iSTAT Site R Radial; iSTAT Sodium 133 mmol/L (135-144)
[2023-03-09] MEDS: SODIUM BICARBONATE 8.4% 150 MEQ in WATER, STERILE 1,000 ML IV SCH (20:39)
[2023-03-09] MEDS ORDERED: LANTUS PER UNIT CHARGE SC ONE (21:00)
[2023-03-09] MEDS: PATIROMER CALCIUM SORBITEX 8.4 GM PACK PO SCH (22:00)
[2023-03-10 01:03] LABS: BUN Creatinine Ratio 29.3 (10-20); Calcium 9.6 mg/dl (8.6-10.3); Creatinine Clr Calc Pharmacy 31.2 ml/min; Est GFR (African American) 21.2 ml/min; Est GFR (Non-African American) 18.3 ml/min; Potassium 6.7 mmol/L (3.5-5.1)
[2023-03-10] MEDS ORDERED: DEXTROSE 50% 50 ML SYRINGE IV ONE (01:07)
[2023-03-10] MEDS ORDERED: STAT IV STA (01:07)
[2023-03-10] MEDS ORDERED: SODIUM BICARB 8.4% INJ 50 MEQ/50 ML SYR IV STA (01:07)
[2023-03-10] MEDS ORDERED: ALBUTEROL 0.083% NEBU SOLN 3 ML VIAL NEB STA (01:09)
[2023-03-10] MEDS ORDERED: CALCIUM GLUCONATE 10% 1,000 MG in DEXTROSE 5% 50 ML IV ONE (01:15)
[2023-03-10] MEDS ORDERED: INSULIN HUMAN REGULAR PER UNIT 10 UNITS in SYRINGE 9.9 ML IV STA (01:15)
[2023-03-10] MEDS: DAPTOmycin 550 MG in SYRINGE 0 ML IV SCH (03:35)
[2023-03-10] MEDS: SODIUM BICARBONATE 8.4% 150 MEQ in WATER, STERILE 1,000 ML IV SCH ×3 (04:41→18:18)
--- NOTE | 2023-03-10 04:45 | Billing Data ---
Date of Service March 10, 2023 Coding Level of Care Code 37077 INT INP/OBS CARE
[2023-03-10] MEDS: PATIROMER CALCIUM SORBITEX 8.4 GM PACK PO SCH ×3 (05:42→20:22)
[2023-03-10 06:28] LABS: Base Excess VBG -3.4 mEq/L; HCO3 VBG 25 mmol/L; Oxygen Saturation VBG < 60.0 %; PCO2 VBG 58 mmHg (38-50); PO2 VBG 28 mmHg; pH VBG 7.24 (7.36-7.41)
[2023-03-10 07:09] LABS: Prothrombin Time 49.2 Seconds (9.0-12.0)
[2023-03-10 07:10] LABS: BUN Creatinine Ratio 30.1 (10-20); Calcium 9.4 mg/dl (8.6-10.3); Creatinine Clr Calc Pharmacy 33.9 ml/min; Est GFR (African American) 23.4 ml/min; Est GFR (Non-African American) 20.2 ml/min; Magnesium 1.8 mg/dl (1.7-2.4); Phosphorus 4.9 mg/dl (2.5-4.9); Potassium 4.8 mmol/L (3.5-5.1)
[2023-03-10 07:40] LABS: Estimated Average Glucose 154 mg/dl
[2023-03-10] MEDS: MAGNESIUM SULFATE / D5W 1 GM/100 ML BAG IV SCH ×2 (07:40→09:36)
[2023-03-10 07:58] LABS: Hematocrit (blood only) 32.9 % (42.0-52.0); Hemoglobin 11.3 g/dl (14.0-18.0); Mean Corpuscular Hemoglobin 30.5 pg (25.0-34.0); Mean Corpuscular Hgb Conc 34.3 g/dL (32.0-36.0); Mean Corpuscular Volume 88.7 fL (80.0-100.0); Mean Platelet Volume 11.2 fL (9.4-12.4); Platelet Count 162 K/uL (130-400); RDW Coefficient of Variation 16.9 % (11.5-14.5); Red Blood Count 3.71 M/uL (4.70-6.10); White Blood Count 14.06 K/ul (4.8-10.8)
--- NOTE | 2023-03-10 08:09 | Critical Care Progress Note ---
Date of Service March 10, 2023 Assessment & Plan (1) Hyperkalemia: (2) Acute kidney injury superimposed on chronic kidney disease: (3) Cellulitis of both lower extremities: Plan Reason Critically Ill: 52-year-old male with an extensive past medical history who presents to the ICU with acute renal failure with oliguria and hyperkalemia with concerns of sepsis for skin versus urinary source. 24-hour events: Patient admitted to the ICU. He was initially on infusion. He has been maintained on bicarb infusions. He tolerated noninvasive positive pressure ventilation overnight. Numbers are slightly improved today. His urine output continues to be adequate. Recommendations: NEURO -delirium, likely multifactorial but suspect metabolic etiology. Patient uses very high-dose of narcotics at baseline for management of his pain. Given his kidney function, will restart at a lower dose and follow the. Patient has baseline paraplegia. CARDIAC/VASCULAR -blood pressures improved without need for pressor agents. Random cortisol was low however in the setting of normotension, do not think stress dose steroids are indicated. Holding his home antihypertensives. RESPIRATORY -transient oxygen desaturations when sleeping consistent with the patient's sleep disordered breathing. The patient uses a BiPAP at home. He states his current machine is in the process of being replaced. He is unaware of what his settings are. We will place him empirically on BiPAP 15/8 when sleeping and nightly. GI/NUTRITION -ostomy in place. Continue H2 armen RENAL/LYTES -acute renal failure. Appreciate nephrology consultation. His hyperkalemia is improving. Metabolic acidosis also slowly improving. Continue bicarb for now. CPK normal -suprapubic catheter. Cultures pending. ENDO - on insulin infusion to try and assist with management of his hyperkalemia. Will discuss with pharmacy today and potentially transition him to subcutaneous regiment. HEME - Supratherapeutic INR. Continue to follow. No evidence of bleeding. 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 Cultures negative to date. Follow-up for now. Lower extremity cellulitis looks better. CPK normal LINES/IV ACCESS - * PIVs x4 * Indwelling Velazquez catheter. DVT PROPHYLAXIS - * Currently supratherapeutic with an INR >4. * SCDs Discussed with nephrology today. Patient's critical care issues appear reasonably well controlled and I think the patient may be able to downgrade out of the intensive care unit. Will discuss with primary service as well as nephrology. He transfers the ICU, critical care will sign off. Feel free to contact us with questions or concerns. Admission and Anticipated Discharge Date Admission Date: March 09, 2023 Subjective Patient seen and examined. EMR reviewed. Discussed with bedside critical care nurse and on multidisciplinary rounds. Patient reports that he is doing better. He is slightly confused and believes he is in [facility] but he is oriented to person and year. He states the pain in his legs is better. He feels he is breathing okay. He is not having any chest pain or palpitations. No tremors. Review of Systems Review of Systems: All systems reviewed & are unremarkable except as noted in Subjective Physical Exam Physical Exam: VITAL SIGNS - Vital signs and nursing notes were reviewed. GENERAL - 52-year-old male appearing his stated age who is in no acute distress. Somnolent but arouses to noxious stimuli. SKIN -beefy red rash noted to the shins anteriorly bilaterally with overlying patches of dry skin. Area is significantly tender to palpation. No bullae or lymphangitic streaking appreciated. HEAD - NC/AT. EYES -pupils equal and small bilaterally. NOSE - Midline and without cyanosis. MOUTH/OROPHARYNX - Without perioral cyanosis. NECK - Neck with FROM. Supple to palpation. LUNGS -clear breath sounds without wheezes, rales, or rhonchi. CARDIAC - RRR with S1/S2. No murmur, rubs, or gallops appreciated. ABDOMEN - Abdominal contour obese without pulsations or visible masses. Prior surgical scars noted throughout. RIGHT lower quadrant ostomy with liquid stool output, suprapubic catheter in place. EXTREMITIES -cellulitis to the bilateral lower extremities as described above. Range of motion of the LEFT upper extremity appreciated. NEUROLOGIC -unable to fully assess secondary to patient's somnolence. He does move his LEFT upper extremity fully and withdraws his LEFT lower extremity to pain. 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 No other focal findings on exam. Results & Data Results & Data Vital Signs (Past 12 Hours) Vital Signs Temp Pulse Pulse Resp BP Pulse Ox O2 Del Method 03/10/23 06:24 120/94 03/10/23 06:24 85 22 95 03/10/23 06:07 85 17 95 07/21/23 06:07 126/107 H 03/10/23 06:00 86 12 96 03/10/23 05:52 145/74 H 03/10/23 05:52 93 H 20 96 03/10/23 05:37 128/73 03/10/23 05:37 87 25 H 98 03/10/23 05:30 83 20 98 03/10/23 05:22 100/53 L 03/10/23 05:22 78 14 98 03/10/23 05:07 94/54 L 03/10/23 05:07 79 15 97 03/10/23 05:00 80 20 96 03/10/23 04:52 93/49 L 03/10/23 04:52 80 18 98 03/10/23 04:37 84/46 L 03/10/23 04:37 78 15 98 03/10/23 04:30 80 13 95 03/10/23 04:22 79 19 98 03/10/23 04:22 91/52 L 03/10/23 04:07 90/46 L 03/10/23 04:07 80 15 97 03/10/23 04:00 80 21 97 03/10/23 03:52 102/70 03/10/23 03:52 80 18 97 03/10/23 03:00 36.3 C L 03/10/23 03:38 111/51 L 03/10/23 03:38 81 20 97 03/10/23 03:30 79 19 98 03/10/23 03:23 78 12 98 03/10/23 03:23 108/55 L 03/10/23 03:22 76 10 L 99 03/10/23 03:07 79 9 L 03/10/23 03:00 80 13 96 03/10/23 02:52 83 14 94 03/10/23 02:52 100/55 L 03/10/23 02:37 112/52 L 03/10/23 02:37 86 17 98 03/10/23 02:30 81 16 98 03/10/23 02:22 83 12 97 03/10/23 02:22 101/51 L 03/10/23 02:07 112/49 L 03/10/23 02:07 83 16 98 03/10/23 02:00 84 21 98 03/10/23 01:52 83 14 95 03/10/23 01:52 111/59 L 03/10/23 01:37 92 H 17 99 03/10/23 01:37 114/70 03/10/23 01:30 78 16 97 03/10/23 01:25 112/38 L 03/10/23 01:25 78 16 98 03/10/23 01:22 78 13 98 03/10/23 01:07 89/43 L 03/10/23 01:07 80 15 03/10/23 01:00 78 16 98 03/10/23 00:52 96/43 L 03/10/23 00:52 79 14 98 03/10/23 00:39 81 15 98 03/10/23 00:37 82 10 L 96 03/10/23 00:30 82 14 97 03/10/23 00:22 95/42 L 03/10/23 00:22 81 14 98 03/10/23 02:38 81 19 98 03/10/23 01:39 88 19 98 BiPAP 03/10/23 00:07 113/48 L 03/10/23 00:07 83 18 96 03/10/23 00:00 83 16 97 03/09/23 23:52 126/61 03/09/23 23:52 84 15 98 03/09/23 23:38 104/51 L 03/09/23 23:38 84 10 L 95 03/09/23 23:37 81 9 L 94 03/09/23 23:37 65/42 L 03/09/23 23:36 97/36 L 03/09/23 23:36 80 8 L 100 03/09/23 23:30 81 15 96 03/09/23 23:07 95/72 L 03/09/23 23:07 78 19 96 03/09/23 23:00 77 11 L 96 03/09/23 22:52 112/63 03/09/23 22:52 78 18 99 03/09/23 22:37 115/61 03/09/23 22:37 74 15 99 03/09/23 22:30 74 14 96 03/09/23 22:22 108/58 L 03/09/23 22:22 74 14 98 03/09/23 22:07 74 11 L 96 03/09/23 22:07 103/56 L 03/09/23 22:00 75 10 L 97 03/09/23 21:52 89/57 L 03/09/23 21:52 76 15 97 03/09/23 21:37 120/67 03/09/23 21:37 77 12 97 03/09/23 21:30 76 6 L 97 03/09/23 21:22 112/47 L 03/09/23 21:22 77 7 L 96 03/09/23 21:07 80 17 97 03/09/23 21:07 107/69 03/10/23 00:20 75 03/09/23 23:54 83 19 98 03/09/23 21:00 81 12 97 03/09/23 20:52 108/57 L 03/09/23 20:52 85 14 97 03/09/23 20:37 123/62 03/09/23 20:37 85 11 L 95 03/09/23 20:30 83 10 L 98 03/09/23 20:22 128/51 L 03/09/23 20:22 85 11 L 98 03/09/23 20:07 120/63 03/09/23 20:07 78 13 99 FiO2 03/10/23 06:24 03/10/23 06:24 03/10/23 06:07 03/10/23 06:07 03/10/23 06:00 03/10/23 05:52 03/10/23 05:52 03/10/23 05:37 03/10/23 05:37 03/10/23 05:30 03/10/23 05:22 03/10/23 05:22 03/10/23 05:07 03/10/23 05:07 03/10/23 05:00 03/10/23 04:52 03/10/23 04:52 03/10/23 04:37 03/10/23 04:37 03/10/23 04:30 03/10/23 04:22 03/10/23 04:22 03/10/23 04:07 03/10/23 04:07 03/10/23 04:00 03/10/23 03:52 03/10/23 03:52 03/10/23 03:00 03/10/23 03:38 03/10/23 03:38 03/10/23 03:30 03/10/23 03:23 03/10/23 03:23 03/10/23 03:22 03/10/23 03:07 03/10/23 03:00 03/10/23 02:52 03/10/23 02:52 03/10/23 02:37 03/10/23 02:37 03/10/23 02:30 03/10/23 02:22 03/10/23 02:22 03/10/23 02:07 03/10/23 02:07 03/10/23 02:00 03/10/23 01:52 03/10/23 01:52 03/10/23 01:37 03/10/23 01:37 03/10/23 01:30 03/10/23 01:25 03/10/23 01:25 03/10/23 01:22 03/10/23 01:07 03/10/23 01:07 03/10/23 01:00 03/10/23 00:52 03/10/23 00:52 03/10/23 00:39 03/10/23 00:37 03/10/23 00:30 03/10/23 00:22 03/10/23 00:22 03/10/23 02:38 21 03/10/23 01:39 21 03/10/23 00:07 03/10/23 00:07 03/10/23 00:00 03/09/23 23:52 03/09/23 23:52 03/09/23 23:38 03/09/23 23:38 03/09/23 23:37 03/09/23 23:37 03/09/23 23:36 03/09/23 23:36 03/09/23 23:30 03/09/23 23:07 03/09/23 23:07 03/09/23 23:00 03/09/23 22:52 03/09/23 22:52 03/09/23 22:37 03/09/23 22:37 03/09/23 22:30 03/09/23 22:22 03/09/23 22:22 03/09/23 22:07 03/09/23 22:07 03/09/23 22:00 03/09/23 21:52 03/09/23 21:52 03/09/23 21:37 03/09/23 21:37 03/09/23 21:30 03/09/23 21:22 03/09/23 21:22 03/09/23 21:07 03/09/23 21:07 03/10/23 00:20 03/09/23 23:54 21 03/09/23 21:00 03/09/23 20:52 03/09/23 20:52 03/09/23 20:37 03/09/23 20:37 03/09/23 20:30 03/09/23 20:22 03/09/23 20:22 03/09/23 20:07 03/09/23 20:07 Critical Care Results & Data Vital Signs (Past 12 Hours) Vital Signs Temp Pulse Pulse Resp BP Pulse Ox O2 Del Method 03/10/23 06:24 120/94 03/10/23 06:24 85 22 95 03/10/23 06:07 85 17 95 03/10/23 06:07 126/107 H 03/10/23 06:00 86 12 96 03/10/23 05:52 145/74 H 03/10/23 05:52 93 H 20 96 03/10/23 05:37 128/73 03/10/23 05:37 87 25 H 98 03/10/23 05:30 83 20 98 03/10/23 05:22 100/53 L 03/10/23 05:22 78 14 98 03/10/23 05:07 94/54 L 03/10/23 05:07 79 15 97 03/10/23 05:00 80 20 96 03/10/23 04:52 93/49 L 03/10/23 04:52 80 18 98 03/10/23 04:37 84/46 L 03/10/23 04:37 78 15 98 03/10/23 04:30 80 13 95 03/10/23 04:22 79 19 98 03/10/23 04:22 91/52 L 03/10/23 04:07 90/46 L 03/10/23 04:07 80 15 97 03/10/23 04:00 80 21 97 03/10/23 03:52 102/70 03/10/23 03:52 80 18 97 03/10/23 03:00 36.3 C L 03/10/23 03:38 111/51 L 03/10/23 03:38 81 20 97 03/10/23 03:30 79 19 98 03/10/23 03:23 78 12 98 03/10/23 03:23 108/55 L 03/10/23 03:22 76 10 L 99 03/10/23 03:07 79 9 L 03/10/23 03:00 80 13 96 03/10/23 02:52 83 14 94 03/10/23 02:52 100/55 L 03/10/23 02:37 112/52 L 03/10/23 02:37 86 17 98 03/10/23 02:30 81 16 98 03/10/23 02:22 83 12 97 03/10/23 02:22 101/51 L 03/10/23 02:07 112/49 L 03/10/23 02:07 83 16 98 03/10/23 02:00 84 21 98 03/10/23 01:52 83 14 95 03/10/23 01:52 111/59 L 03/10/23 01:37 92 H 17 99 03/10/23 01:37 114/70 03/10/23 01:30 78 16 97 03/10/23 01:25 112/38 L 03/10/23 01:25 78 16 98 03/10/23 01:22 78 13 98 03/10/23 01:07 89/43 L 03/10/23 01:07 80 15 03/10/23 01:00 78 16 98 03/10/23 00:52 96/43 L 03/10/23 00:52 79 14 98 03/10/23 00:39 81 15 98 03/10/23 00:37 82 10 L 96 03/10/23 00:30 82 14 97 03/10/23 00:22 95/42 L 03/10/23 00:22 81 14 98 03/10/23 02:38 81 19 98 03/10/23 01:39 88 19 98 BiPAP 03/10/23 00:07 113/48 L 03/10/23 00:07 83 18 96 03/10/23 00:00 83 16 97 03/09/23 23:52 126/61 03/09/23 23:52 84 15 98 03/09/23 23:38 104/51 L 03/09/23 23:38 84 10 L 95 03/09/23 23:37 81 9 L 94 03/09/23 23:37 65/42 L 03/09/23 23:36 97/36 L 03/09/23 23:36 80 8 L 100 03/09/23 23:30 81 15 96 03/09/23 23:07 95/72 L 03/09/23 23:07 78 19 96 03/09/23 23:00 77 11 L 96 03/09/23 22:52 112/63 03/09/23 22:52 78 18 99 03/09/23 22:37 115/61 03/09/23 22:37 74 15 99 03/09/23 22:30 74 14 96 03/09/23 22:22 108/58 L 03/09/23 22:22 74 14 98 03/09/23 22:07 74 11 L 96 03/09/23 22:07 103/56 L 03/09/23 22:00 75 10 L 97 03/09/23 21:52 89/57 L 03/09/23 21:52 76 15 97 03/09/23 21:37 120/67 03/09/23 21:37 77 12 97 03/09/23 21:30 76 6 L 97 03/09/23 21:22 112/47 L 03/09/23 21:22 77 7 L 96 03/09/23 21:07 80 17 97 03/09/23 21:07 107/69 03/10/23 00:20 75 03/09/23 23:54 83 19 98 03/09/23 21:00 81 12 97 03/09/23 20:52 108/57 L 03/09/23 20:52 85 14 97 03/09/23 20:37 123/62 03/09/23 20:37 85 11 L 95 03/09/23 20:30 83 10 L 98 03/09/23 20:22 128/51 L 03/09/23 20:22 85 11 L 98 03/09/23 20:07 120/63 03/09/23 20:07 78 13 99 FiO2 03/10/23 06:24 03/10/23 06:24 03/10/23 06:07 03/10/23 06:07 03/10/23 06:00 03/10/23 05:52 07/21/23 05:52 03/10/23 05:37 03/10/23 05:37 03/10/23 05:30 03/10/23 05:22 03/10/23 05:22 03/10/23 05:07 03/10/23 05:07 03/10/23 05:00 03/10/23 04:52 03/10/23 04:52 03/10/23 04:37 03/10/23 04:37 03/10/23 04:30 03/10/23 04:22 03/10/23 04:22 03/10/23 04:07 03/10/23 04:07 03/10/23 04:00 03/10/23 03:52 03/10/23 03:52 03/10/23 03:00 03/10/23 03:38 03/10/23 03:38 03/10/23 03:30 03/10/23 03:23 03/10/23 03:23 03/10/23 03:22 03/10/23 03:07 03/10/23 03:00 03/10/23 02:52 03/10/23 02:52 03/10/23 02:37 03/10/23 02:37 03/10/23 02:30 03/10/23 02:22 03/10/23 02:22 03/10/23 02:07 03/10/23 02:07 03/10/23 02:00 03/10/23 01:52 03/10/23 01:52 03/10/23 01:37 03/10/23 01:37 03/10/23 01:30 03/10/23 01:25 03/10/23 01:25 03/10/23 01:22 03/10/23 01:07 03/10/23 01:07 03/10/23 01:00 03/10/23 00:52 03/10/23 00:52 03/10/23 00:39 03/10/23 00:37 03/10/23 00:30 03/10/23 00:22 03/10/23 00:22 03/10/23 02:38 21 03/10/23 01:39 21 03/10/23 00:07 03/10/23 00:07 03/10/23 00:00 03/09/23 23:52 03/09/23 23:52 03/09/23 23:38 03/09/23 23:38 03/09/23 23:37 03/09/23 23:37 03/09/23 23:36 03/09/23 23:36 03/09/23 23:30 03/09/23 23:07 03/09/23 23:07 03/09/23 23:00 03/09/23 22:52 03/09/23 22:52 03/09/23 22:37 03/09/23 22:37 03/09/23 22:30 03/09/23 22:22 03/09/23 22:22 03/09/23 22:07 03/09/23 22:07 03/09/23 22:00 03/09/23 21:52 03/09/23 21:52 03/09/23 21:37 03/09/23 21:37 03/09/23 21:30 03/09/23 21:22 03/09/23 21:22 03/09/23 21:07 03/09/23 21:07 03/10/23 00:20 03/09/23 23:54 21 03/09/23 21:00 03/09/23 20:52 03/09/23 20:52 03/09/23 20:37 03/09/23 20:37 03/09/23 20:30 03/09/23 20:22 03/09/23 20:22 03/09/23 20:07 03/09/23 20:07 Lab & Micro Results (Past 24 Hours) RBC 3.71 M/uL (4.70-6.10) L 03/10/23 WBC 14.06 K/ul (4.8-10.8) H 03/10/23 Hgb 11.3 g/dl (14.0-18.0) L 03/10/23 Hct 32.9 % (42.0-52.0) L 03/10/23 MCV 88.7 fL (80.0-100.0) 03/10/23 MCH 30.5 pg (25.0-34.0) 03/10/23 MCHC 34.3 g/dL (32.0-36.0) 03/10/23 RDW Standard Deviation 55.0 fL (36.4-46.3) H 03/10/23 RDW Coefficient of Variation 16.9 % (11.5-14.5) H 03/10/23 Plt Count 162 K/uL (130-400) 03/10/23 MPV 11.2 fL (9.4-12.4) 03/10/23 Na 131 mmol/L (136-145) L 03/10/23 K 4.8 mmol/L (3.5-5.1) 03/10/23 Cl 101 mmol/L (98-107) 03/10/23 CO2 24 mmol/L (21-32) 03/10/23 Anion Gap 6 (3-11) 03/10/23 BUN 101 mg/dl (6-23) H 03/10/23 Creatinine 3.36 mg/dl (0.6-1.4) H 03/10/23 Estimated GFR ( Amer) 23.4 ml/min 03/10/23 Estimated GFR (Non-Af Amer) 20.2 ml/min 03/10/23 BUN/Creatinine Ratio 30.1 (10-20) H 03/10/23 Glu 126 mg/dl (70-99(Fasting)) H 03/10/23 Ca 9.4 mg/dl (8.6-10.3) 03/10/23 Phosphorus Level 4.9 mg/dl (2.5-4.9) 03/10/23 Mg 1.8 mg/dl (1.7-2.4) 03/10/23 06:22 Calcium Level 9.4 mg/dl (8.6-10.3) 03/10/23 06:22 Prothromb Time International Ratio 5.0 (0.9-1.1) H 03/10/23 06 :22 Venous Blood pH 7.24 (7.36-7.41) L 03/10/23 06:22 Venous Blood Partial Pressure CO2 58 mmHg (38-50) H 03/10/23 06 :22 Venous Blood Partial Pressure O2 28 mmHg 03/10/23 06:22 Venous Blood HCO3 25 mmol/L 03/10/23 06:22 Venous Blood Base Excess -3.4 mEq/L 07/21/23 06:22 Venous Blood Oxygen Saturation < 60.0 % 03/10/23 06:22 Kota Test Pass 03/09/23 20:13 Microbiology 03/09/23 01:13 Urine Culture - Final Urine,Clean Catch Three types of organisms present, all high counts. Repeat collection recommended. No further identifications or sensitivities to follow. 03/09/23 04:23 Aerobic Blood Culture - Preliminary Blood No growth in Aerobic bottle after 24 hours. 03/09/23 00:55 Aerobic Blood Culture - Preliminary Blood No growth in Aerobic bottle after 24 hours. Anaerobic Blood Culture - Preliminary No growth in Anaerobic bottle after 24 hours. Diagnostic Findings (Past 24 Hours) Venous Doppler Study 03/09/23 11:55 BILATERAL LOWER EXTREMITY VENOUS DOPPLER CLINICAL HISTORY: B/L LE cellulitis COMPARISON STUDY: Right lower extremity venous Doppler ultrasound November 01, 2020. Bilateral lower extremity venous Doppler ultrasound March 15, 2022. TECHNIQUE: Sonography of the deep venous system of the bilateral lower extremities was performed. Compression and augmentation were evaluated. FINDINGS: The bilateral common femoral, superficial femoral and popliteal veins were compressible. Augmentation was normal. Flow was shown within the deep calf vessels. IMPRESSION: No evidence of deep venous thrombus within the bilateral lower extremities. ACT 112: Negative or not required by law. Electronically signed by: Jaime Arias M.D. 03/09/2023 6:01 PM Tibia/Fibula X-Ray 03/09/23 15:20 XR tibia fibula LT 2V CLINICAL HISTORY: overlying infection COMPARISON: Left ankle radiographs April 10, 2016. FINDINGS: There is no fracture within the left tibia or fibula. No bony erosions are identified. Extensive vascular calcification is incidentally noted. No radiographic evidence for soft tissue gas. IMPRESSION: No significant osseous abnormality of the left tibia or fibula. No radiographic evidence for acute osteomyelitis. ACT 112: Negative or not required by law. Electronically signed by: Jaime Arias M.D. 03/09/2023 5:15 PM Tibia/Fibula X-Ray 03/09/23 15:20 XR tibia fibula RT 2V CLINICAL HISTORY: overlying infection COMPARISON: Right knee radiographs August 17, 2015. FINDINGS: No fracture within the right tibia or fibula is identified. No bony erosion is identified. There is extensive vascular calcification. No soft tissue gas is identified by radiography. IMPRESSION: No significant osseous abnormality within the right tibia or fibula. No evidence for acute osteomyelitis. ACT 112: Negative or not required by law. Electronically signed by: Jaime Arias M.D. 03/09/2023 5:13 PM I & O Totals 24 Hours 03/09/23 03/10/23 03/11/23 06:59 06:59 06:59 Intake Total 1180 / 1180 4445.058 / 4445.058 3.645 / 3.645 Output Total 800 / 800 995 / 995 Balance 380 / 380 3450.058 / 3450.058 3.645 / 3.645 Cumulative 03/08/23 20:47 thru 03/10/23 07:02 Intake Total 5628.703 Output Total 1795 Balance 3833.703 RT Ventilator Mngmt (Last Documented) Ventilator Ordered Settings Respiratory Rate 22 03/10/23 06:24 Fraction of Inspired Oxygen 03/10/23 02:38 Ventilator - PT Measurements Respiratory Rate 22 Coding Level of Care Code 42183 SUB INP/OBS CARE 3/50MIN Diagnoses Hyperkalemia E87.5 Acute kidney injury superimposed on chronic kidney disease N17.9; N18.9 Cellulitis of both lower extremities L03.115; L03.116
[2023-03-10] MEDS: FAMOTIDINE 40 MG TABLET PO SCH (08:41)
[2023-03-10] MEDS ORDERED: GABAPENTIN 300 MG CAP PO SCH (09:00)
[2023-03-10] MEDS: ICU ELECTROLYTE REPLACEMENT PROTOCOL SCH (09:06)
[2023-03-10] MEDS: INSULIN ASPART PER UNIT CHARGE SC SCH ×4 (09:07→20:14)
[2023-03-10] MEDS ORDERED: LANTUS PER UNIT CHARGE SC SCH (10:05)
[2023-03-10 10:11] LABS: HCO3 VBG 26 mmol/L; Oxygen Saturation VBG 82.1 %; PCO2 VBG 51 mmHg (38-50); PO2 VBG 49 mmHg; pH VBG 7.31 (7.36-7.41)
--- NOTE | 2023-03-10 10:14 | Nephrology Progress Note ---
Date of Service March 10, 2023 Assessment & Plan (1) Acute kidney injury: Plan: Non-oliguric. CT demonstrating kidneys to be unobstructed. Urine with >30 WBC, no RBC's. Culture with mixed tosin. CK not appreciably elevated. JUAREZ attributed to ATN in setting of volume depletion and sepsis with hypotension. Creatinine stable. No emergent indication for dialysis at this time. Electrolytes improving with medical management. Document strict I/O's. BP improved. Volume status replete. IV NaHCO3 gtt rate reduced from 200 ml/h to 100 ml/h this AM. Gabapentin dose reduced from 300 mg BID to once daily due to kidney dysfunction. Valsartan and finerenone have been held. Potential indications for HD reviewed. Repeat labs this afternoon. However, I do not anticipate need for HD at this time. Plan of care discussed with Dr. Brandon team. PICC placement requested for lab draws and medication administration. (2) CKD (chronic kidney disease): Plan: Baseline creatinine ~1.7 mg/dL. Follows with [facility]. 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 (3) Metabolic acidosis: Plan: Continue NaHCO3 gtt and monitor labs closely. (4) Hyperkalemia: Plan: IVF to encourage urine output. Patiromer ordered TID for now. Insulin gtt may be discontinued if acceptable with ICU team. Continued NaHCO3 replacement ordered. Repeat labs this afternoon. Admission and Anticipated Discharge Date Admission Date: March 09, 2023 Subjective No acute events overnight. Urine output improving. 250 ml emptied this AM. Hema states that he feels well this AM. He denies significant pain at this time. No fevers or chills. He is breathing comfortably. He reported a slight flutter in his heart early this morning but otherwise no chest pain or palpitations. Some waxing and waning confusion reported by his RN. Some mild nausea reported this AM. Hema does not have much of an appetite this morning. Notable difficulty with lab draws. Review of Systems Review of Systems: All systems reviewed & are unremarkable except as noted in HPI & below Physical Exam Constitutional: well developed and + morbidly obese; no acute distress Eyes: no scleral abnormality and no corneal abnormality ENMT: Mouth: no oral mucosal abnormality and oral mucous membranes not dry Neck: normal visual inspection and trachea midline Respiratory: normal respiratory effort Auscultation: lungs clear to auscultation bilaterally and + diminished lung sounds Cardiovascular: Rate/Rhythm: regular rate Heart Sounds: normal S1 and normal S2 Extremities: + calf tenderness and + edema Musculoskeletal: Extremities: no cyanosis and no clubbing Skin: normal turgor and + erythema (BL LE below the knees); no jaundice Neurologic: Motor/Sensory: no tremor and no asterixis Psychiatric: Orientation: alert and oriented x 3 Results & Data Vital Signs (Past 12 Hours) Vital Signs Temp Pulse Pulse Resp BP Pulse Ox O2 Del Method 03/10/23 08:10 Nasal Cannula 03/10/23 06:24 120/94 03/10/23 06:24 85 22 95 03/10/23 06:07 85 17 95 03/10/23 06:07 126/107 H 03/10/23 06:00 86 12 96 03/10/23 05:52 145/74 H 03/10/23 05:52 93 H 20 96 03/10/23 05:37 128/73 03/10/23 05:37 87 25 H 98 03/10/23 05:30 83 20 98 03/10/23 05:22 100/53 L 03/10/23 05:22 78 14 98 03/10/23 05:07 94/54 L 03/10/23 05:07 79 15 97 03/10/23 05:00 80 20 96 03/10/23 04:52 93/49 L 03/10/23 04:52 80 18 98 03/10/23 04:37 84/46 L 03/10/23 04:37 78 15 98 03/10/23 04:30 80 13 95 03/10/23 04:22 79 19 98 03/10/23 04:22 91/52 L 03/10/23 04:07 90/46 L 03/10/23 04:07 80 15 97 03/10/23 04:00 80 21 97 03/10/23 03:52 102/70 03/10/23 03:52 80 18 97 03/10/23 03:00 36.3 C L 03/10/23 03:38 111/51 L 03/10/23 03:38 81 20 97 03/10/23 03:30 79 19 98 03/10/23 03:23 78 12 98 03/10/23 03:23 108/55 L 03/10/23 03:22 76 10 L 99 03/10/23 03:07 79 9 L 03/10/23 03:00 80 13 96 03/10/23 02:52 83 14 94 03/10/23 02:52 100/55 L 03/10/23 02:37 112/52 L 03/10/23 02:37 86 17 98 03/10/23 02:30 81 16 98 03/10/23 02:22 83 12 97 03/10/23 02:22 101/51 L 03/10/23 02:07 112/49 L 03/10/23 02:07 83 16 98 03/10/23 02:00 84 21 98 03/10/23 01:52 83 14 95 03/10/23 01:52 111/59 L 03/10/23 01:37 92 H 17 99 03/10/23 01:37 114/70 03/10/23 01:30 78 16 97 03/10/23 01:25 112/38 L 03/10/23 01:25 78 16 98 03/10/23 01:22 78 13 98 03/10/23 01:07 89/43 L 03/10/23 01:07 80 15 03/10/23 01:00 78 16 98 03/10/23 00:52 96/43 L 03/10/23 00:52 79 14 98 03/10/23 00:39 81 15 98 03/10/23 00:37 82 10 L 96 03/10/23 00:30 82 14 97 03/10/23 00:22 95/42 L 03/10/23 00:22 81 14 98 03/10/23 02:38 81 19 98 03/10/23 01:39 88 19 98 BiPAP 03/10/23 00:07 113/48 L 03/10/23 00:07 83 18 96 03/10/23 00:00 83 16 97 03/09/23 23:52 126/61 03/09/23 23:52 84 15 98 03/09/23 23:38 104/51 L 03/09/23 23:38 84 10 L 95 03/09/23 23:37 81 9 L 94 03/09/23 23:37 65/42 L 03/09/23 23:36 97/36 L 03/09/23 23:36 80 8 L 100 03/09/23 23:30 81 15 96 03/09/23 23:07 95/72 L 03/09/23 23:07 78 19 96 03/09/23 23:00 77 11 L 96 03/09/23 22:52 112/63 03/09/23 22:52 78 18 99 03/09/23 22:37 115/61 03/09/23 22:37 74 15 99 03/09/23 22:30 74 14 96 03/09/23 22:22 108/58 L 03/09/23 22:22 74 14 98 03/10/23 00:20 75 03/09/23 23:54 83 19 98 O2 Flow Rate FiO2 03/10/23 08:10 2 03/10/23 06:24 03/10/23 06:24 03/10/23 06:07 03/10/23 06:07 03/10/23 06:00 03/10/23 05:52 03/10/23 05:52 03/10/23 05:37 03/10/23 05:37 03/10/23 05:30 03/10/23 05:22 03/10/23 05:22 03/10/23 05:07 03/10/23 05:07 03/10/23 05:00 03/10/23 04:52 03/10/23 04:52 03/10/23 04:37 03/10/23 04:37 03/10/23 04:30 03/10/23 04:22 03/10/23 04:22 03/10/23 04:07 03/10/23 04:07 03/10/23 04:00 03/10/23 03:52 03/10/23 03:52 03/10/23 03:00 03/10/23 03:38 03/10/23 03:38 03/10/23 03:30 03/10/23 03:23 03/10/23 03:23 03/10/23 03:22 03/10/23 03:07 03/10/23 03:00 03/10/23 02:52 03/10/23 02:52 03/10/23 02:37 03/10/23 02:37 03/10/23 02:30 03/10/23 02:22 03/10/23 02:22 03/10/23 02:07 03/10/23 02:07 03/10/23 02:00 03/10/23 01:52 03/10/23 01:52 03/10/23 01:37 03/10/23 01:37 03/10/23 01:30 03/10/23 01:25 03/10/23 01:25 03/10/23 01:22 03/10/23 01:07 03/10/23 01:07 03/10/23 01:00 03/10/23 00:52 03/10/23 00:52 03/10/23 00:39 03/10/23 00:37 03/10/23 00:30 03/10/23 00:22 03/10/23 00:22 03/10/23 02:38 21 03/10/23 01:39 21 03/10/23 00:07 03/10/23 00:07 03/10/23 00:00 03/09/23 23:52 03/09/23 23:52 03/09/23 23:38 03/09/23 23:38 03/09/23 23:37 03/09/23 23:37 03/09/23 23:36 03/09/23 23:36 03/09/23 23:30 03/09/23 23:07 03/09/23 23:07 03/09/23 23:00 03/09/23 22:52 03/09/23 22:52 03/09/23 22:37 03/09/23 22:37 03/09/23 22:30 03/09/23 22:22 03/09/23 22:22 03/10/23 00:20 03/09/23 23:54 21 Laboratory Results Laboratory Results - last 24 hr 03/09/23 03/09/23 03/09/23 09:12 10:30 10:30 WBC RBC Hgb POC Hgb Hct POC Hct MCV MCH MCHC RDW Std Deviation RDW Coeff of Lorenzo Plt Count MPV Absolute Nucleated RBC Nucleated RBC % (auto) Platelet Estimate PT INR Sample Site POC pH POC pCO2 POC pO2 POC HCO3 POC Total CO2 POC Base Excess ABG pH (Temp Correct) ABG pCO2 (Temp Corrct POC ABG pO2 at Pt Temp POC ABG O2 Sat Kota Test VBG pH 7.17 L VBG pCO2 31 L VBG pO2 48 VBG HCO3 11 VBG O2 Saturation 77.6 VBG Base Excess -16.0 O2 Delivery Device POC O2 Rate POC FiO2 IPAP POC Sodium Sodium POC Potassium Potassium Chloride Carbon Dioxide Anion Gap BUN Creatinine Est Cr Clr Drug Dosing Est GFR ( Amer) Est GFR (Non-Af Amer) BUN/Creatinine Ratio Glucose POC Glucose Estimat Average Glucose Hemoglobin A1c Lactate 0.9 Calcium Phosphorus Magnesium Total Creatine Kinase 103 Random Cortisol Nasal Screen MRSA (PCR) 03/09/23 03/09/23 03/09/23 11:51 12:30 14:22 WBC RBC Hgb POC Hgb Hct POC Hct MCV MCH MCHC RDW Std Deviation RDW Coeff of Lorenzo Plt Count MPV Absolute Nucleated RBC Nucleated RBC % (auto) Platelet Estimate PT INR Sample Site POC pH POC pCO2 POC pO2 POC HCO3 POC Total CO2 POC Base Excess ABG pH (Temp Correct) ABG pCO2 (Temp Corrct POC ABG pO2 at Pt Temp POC ABG O2 Sat Kota Test VBG pH VBG pCO2 VBG pO2 VBG HCO3 VBG O2 Saturation VBG Base Excess O2 Delivery Device POC O2 Rate POC FiO2 IPAP POC Sodium Sodium 129 L POC Potassium Potassium 6.2 H* Chloride 108 H Carbon Dioxide 12 L Anion Gap 9 BUN 107 H Creatinine 3.58 H D Est Cr Clr Drug Dosing 31.8 Est GFR ( Amer) 21.7 Est GFR (Non-Af Amer) 18.7 BUN/Creatinine Ratio 29.9 H Glucose 282 H POC Glucose 264 H 218 H Estimat Average Glucose Hemoglobin A1c Lactate Calcium 9.2 Phosphorus Magnesium Total Creatine Kinase Random Cortisol Nasal Screen MRSA (PCR) 03/09/23 03/09/23 03/09/23 15:02 15:52 16:01 WBC RBC Hgb POC Hgb 13.3 L Hct POC Hct 39 L MCV MCH MCHC RDW Std Deviation RDW Coeff of Lorenzo Plt Count MPV Absolute Nucleated RBC Nucleated RBC % (auto) Platelet Estimate PT INR Sample Site R Radial POC pH 7.22 L POC pCO2 36 POC pO2 < 32 L POC HCO3 15 L POC Total CO2 16 L POC Base Excess -13.0 L ABG pH (Temp Correct) 7.215 L ABG pCO2 (Temp Corrct 36 POC ABG pO2 at Pt Temp 24 POC ABG O2 Sat 31.0 L Kota Test Pass VBG pH VBG pCO2 VBG pO2 VBG HCO3 VBG O2 Saturation VBG Base Excess O2 Delivery Device BIPAP POC O2 Rate POC FiO2 21 IPAP 18 POC Sodium 127 L Sodium 130 L POC Potassium 5.8 H Potassium 4.3 D Chloride 85 L Carbon Dioxide 43 H* Anion Gap 2 L BUN 84 H D Creatinine 2.27 H D Est Cr Clr Drug Dosing 50.2 Est GFR ( Amer) 37.6 Est GFR (Non-Af Amer) 32.4 BUN/Creatinine Ratio 37.0 H Glucose 184 H POC Glucose Estimat Average Glucose Hemoglobin A1c Lactate Calcium 6.4 L D Phosphorus Magnesium 1.3 L Total Creatine Kinase 80 Random Cortisol Nasal Screen MRSA (PCR) Negative 03/09/23 03/09/23 03/09/23 16:01 16:01 16:32 WBC RBC Hgb POC Hgb Hct POC Hct MCV MCH MCHC RDW Std Deviation RDW Coeff of Lorenzo Plt Count MPV Absolute Nucleated RBC Nucleated RBC % (auto) Platelet Estimate PT INR Sample Site POC pH POC pCO2 POC pO2 POC HCO3 POC Total CO2 POC Base Excess ABG pH (Temp Correct) ABG pCO2 (Temp Corrct POC ABG pO2 at Pt Temp POC ABG O2 Sat Kota Test VBG pH 7.30 L VBG pCO2 96 H VBG pO2 26 VBG HCO3 47 VBG O2 Saturation < 60.0 VBG Base Excess 15.9 O2 Delivery Device POC O2 Rate POC FiO2 IPAP POC Sodium Sodium POC Potassium Potassium Chloride Carbon Dioxide Anion Gap BUN Creatinine Est Cr Clr Drug Dosing Est GFR ( Amer) Est GFR (Non-Af Amer) BUN/Creatinine Ratio Glucose POC Glucose 222 H Estimat Average Glucose Hemoglobin A1c Lactate Calcium Phosphorus Magnesium Total Creatine Kinase Random Cortisol 11.02 Nasal Screen MRSA (PCR) 03/09/23 03/09/23 03/09/23 17:27 18:38 19:12 WBC RBC Hgb POC Hgb Hct POC Hct MCV MCH MCHC RDW Std Deviation RDW Coeff of Lorenzo Plt Count MPV Absolute Nucleated RBC Nucleated RBC % (auto) Platelet Estimate PT INR Sample Site POC pH POC pCO2 POC pO2 POC HCO3 POC Total CO2 POC Base Excess ABG pH (Temp Correct) ABG pCO2 (Temp Corrct POC ABG pO2 at Pt Temp POC ABG O2 Sat Kota Test VBG pH VBG pCO2 VBG pO2 VBG HCO3 VBG O2 Saturation VBG Base Excess O2 Delivery Device POC O2 Rate POC FiO2 IPAP POC Sodium Sodium 131 L POC Potassium Potassium 6.3 H* D Chloride 107 Carbon Dioxide 13 L Anion Gap 11 BUN 111 H D Creatinine 3.74 H D Est Cr Clr Drug Dosing 30.4 Est GFR ( Amer) 20.6 Est GFR (Non-Af Amer) 17.7 BUN/Creatinine Ratio 29.7 H Glucose 201 H POC Glucose 222 H 211 H Estimat Average Glucose Hemoglobin A1c Lactate Calcium 9.7 D Phosphorus Magnesium Total Creatine Kinase Random Cortisol Nasal Screen MRSA (PCR) 03/09/23 03/09/23 03/09/23 19:27 20:08 20:13 WBC RBC Hgb POC Hgb 12.6 L 12.2 L Hct POC Hct 37 L 36 L MCV MCH MCHC RDW Std Deviation RDW Coeff of Lorenzo Plt Count MPV Absolute Nucleated RBC Nucleated RBC % (auto) Platelet Estimate PT INR Sample Site L Radial R Radial POC pH 7.19 L* 7.16 L* POC pCO2 38 44 POC pO2 35 L 86 POC HCO3 14 L 16 L POC Total CO2 16 L 17 L POC Base Excess -14.0 L -13.0 L ABG pH (Temp Correct) 7.185 L* 7.157 L* ABG pCO2 (Temp Corrct 38 44 POC ABG pO2 at Pt Temp 35 87 POC ABG O2 Sat 54.0 L 93.0 Kota Test Pass Pass VBG pH VBG pCO2 VBG pO2 VBG HCO3 VBG O2 Saturation VBG Base Excess O2 Delivery Device BIPAP BIPAP POC O2 Rate 18 18 POC FiO2 21 21 IPAP 18 18 POC Sodium 133 L 133 L Sodium POC Potassium 5.4 H 5.8 H Potassium Chloride Carbon Dioxide Anion Gap BUN Creatinine Est Cr Clr Drug Dosing Est GFR ( Amer) Est GFR (Non-Af Amer) BUN/Creatinine Ratio Glucose POC Glucose 212 H Estimat Average Glucose Hemoglobin A1c Lactate Calcium Phosphorus Magnesium Total Creatine Kinase Random Cortisol Nasal Screen MRSA (PCR) 03/09/23 03/09/23 03/09/23 20:34 21:34 22:36 WBC RBC Hgb POC Hgb Hct POC Hct MCV MCH MCHC RDW Std Deviation RDW Coeff of Lorenzo Plt Count MPV Absolute Nucleated RBC Nucleated RBC % (auto) Platelet Estimate PT INR Sample Site POC pH POC pCO2 POC pO2 POC HCO3 POC Total CO2 POC Base Excess ABG pH (Temp Correct) ABG pCO2 (Temp Corrct POC ABG pO2 at Pt Temp POC ABG O2 Sat Kota Test VBG pH VBG pCO2 VBG pO2 VBG HCO3 VBG O2 Saturation VBG Base Excess O2 Delivery Device POC O2 Rate POC FiO2 IPAP POC Sodium Sodium POC Potassium Potassium Chloride Carbon Dioxide Anion Gap BUN Creatinine Est Cr Clr Drug Dosing Est GFR ( Amer) Est GFR (Non-Af Amer) BUN/Creatinine Ratio Glucose POC Glucose 172 H 179 H 142 H Estimat Average Glucose Hemoglobin A1c Lactate Calcium Phosphorus Magnesium Total Creatine Kinase Random Cortisol Nasal Screen MRSA (PCR) 03/10/23 03/10/23 03/10/23 00:05 00:32 01:35 WBC RBC Hgb POC Hgb Hct POC Hct MCV MCH MCHC RDW Std Deviation RDW Coeff of Lorenzo Plt Count MPV Absolute Nucleated RBC Nucleated RBC % (auto) Platelet Estimate PT INR Sample Site POC pH POC pCO2 POC pO2 POC HCO3 POC Total CO2 POC Base Excess ABG pH (Temp Correct) ABG pCO2 (Temp Corrct POC ABG pO2 at Pt Temp POC ABG O2 Sat Kota Test VBG pH VBG pCO2 VBG pO2 VBG HCO3 VBG O2 Saturation VBG Base Excess O2 Delivery Device POC O2 Rate POC FiO2 IPAP POC Sodium Sodium 133 L POC Potassium Potassium 6.7 H* Chloride 113 H Carbon Dioxide 9 L* Anion Gap 11 BUN 107 H Creatinine 3.65 H Est Cr Clr Drug Dosing 31.2 Est GFR ( Amer) 21.2 Est GFR (Non-Af Amer) 18.3 BUN/Creatinine Ratio 29.3 H Glucose 127 H POC Glucose 120 H 187 H Estimat Average Glucose Hemoglobin A1c Lactate Calcium 9.6 Phosphorus Magnesium Total Creatine Kinase Random Cortisol Nasal Screen MRSA (PCR) 03/10/23 03/10/23 03/10/23 02:34 03:31 04:36 WBC RBC Hgb POC Hgb Hct POC Hct MCV MCH MCHC RDW Std Deviation RDW Coeff of Lorenzo Plt Count MPV Absolute Nucleated RBC Nucleated RBC % (auto) Platelet Estimate PT INR Sample Site POC pH POC pCO2 POC pO2 POC HCO3 POC Total CO2 POC Base Excess ABG pH (Temp Correct) ABG pCO2 (Temp Corrct POC ABG pO2 at Pt Temp POC ABG O2 Sat Kota Test VBG pH VBG pCO2 VBG pO2 VBG HCO3 VBG O2 Saturation VBG Base Excess O2 Delivery Device POC O2 Rate POC FiO2 IPAP POC Sodium Sodium POC Potassium Potassium Chloride Carbon Dioxide Anion Gap BUN Creatinine Est Cr Clr Drug Dosing Est GFR ( Amer) Est GFR (Non-Af Amer) BUN/Creatinine Ratio Glucose POC Glucose 163 H 138 H 130 H Estimat Average Glucose Hemoglobin A1c Lactate Calcium Phosphorus Magnesium Total Creatine Kinase Random Cortisol Nasal Screen MRSA (PCR) 03/10/23 03/10/23 03/10/23 05:39 06:22 06:22 WBC Cancelled RBC Cancelled Hgb Cancelled POC Hgb Hct Cancelled POC Hct MCV Cancelled MCH Cancelled MCHC Cancelled RDW Std Deviation Cancelled RDW Coeff of Lorenzo Cancelled Plt Count Cancelled MPV Cancelled Absolute Nucleated RBC Cancelled Nucleated RBC % (auto) Cancelled Platelet Estimate Cancelled PT INR Sample Site POC pH POC pCO2 POC pO2 POC HCO3 POC Total CO2 POC Base Excess ABG pH (Temp Correct) ABG pCO2 (Temp Corrct POC ABG pO2 at Pt Temp POC ABG O2 Sat Kota Test VBG pH VBG pCO2 VBG pO2 VBG HCO3 VBG O2 Saturation VBG Base Excess O2 Delivery Device POC O2 Rate POC FiO2 IPAP POC Sodium Sodium POC Potassium Potassium Chloride Carbon Dioxide Anion Gap BUN Creatinine Est Cr Clr Drug Dosing Est GFR ( Amer) Est GFR (Non-Af Amer) BUN/Creatinine Ratio Glucose POC Glucose 110 H Estimat Average Glucose 154 Hemoglobin A1c 7.0 H Lactate Calcium Phosphorus Magnesium Total Creatine Kinase Random Cortisol Nasal Screen MRSA (PCR) 03/10/23 03/10/23 03/10/23 06:22 06:22 06:22 WBC RBC Hgb POC Hgb Hct POC Hct MCV MCH MCHC RDW Std Deviation RDW Coeff of Lorenzo Plt Count MPV Absolute Nucleated RBC Nucleated RBC % (auto) Platelet Estimate PT 49.2 H INR 5.0 H Sample Site POC pH POC pCO2 POC pO2 POC HCO3 POC Total CO2 POC Base Excess ABG pH (Temp Correct) ABG pCO2 (Temp Corrct POC ABG pO2 at Pt Temp POC ABG O2 Sat Kota Test VBG pH 7.24 L VBG pCO2 58 H VBG pO2 28 VBG HCO3 25 VBG O2 Saturation < 60.0 VBG Base Excess -3.4 O2 Delivery Device POC O2 Rate POC FiO2 IPAP POC Sodium Sodium 131 L POC Potassium Potassium 4.8 D Chloride 101 Carbon Dioxide 24 Anion Gap 6 BUN 101 H Creatinine 3.36 H Est Cr Clr Drug Dosing 33.9 Est GFR ( Amer) 23.4 Est GFR (Non-Af Amer) 20.2 BUN/Creatinine Ratio 30.1 H Glucose 126 H POC Glucose Estimat Average Glucose Hemoglobin A1c Lactate Calcium 9.4 Phosphorus 4.9 Magnesium 1.8 Total Creatine Kinase Random Cortisol Nasal Screen MRSA (PCR) 03/10/23 03/10/23 03/10/23 06:23 07:26 07:30 WBC 14.06 H RBC 3.71 L Hgb 11.3 L POC Hgb Hct 32.9 L POC Hct MCV 88.7 MCH 30.5 MCHC 34.3 RDW Std Deviation 55.0 H RDW Coeff of Lorenzo 16.9 H Plt Count 162 MPV 11.2 Absolute Nucleated RBC Nucleated RBC % (auto) Platelet Estimate PT INR Sample Site POC pH POC pCO2 POC pO2 POC HCO3 POC Total CO2 POC Base Excess ABG pH (Temp Correct) ABG pCO2 (Temp Corrct POC ABG pO2 at Pt Temp POC ABG O2 Sat Kota Test VBG pH VBG pCO2 VBG pO2 VBG HCO3 VBG O2 Saturation VBG Base Excess O2 Delivery Device POC O2 Rate POC FiO2 IPAP POC Sodium Sodium POC Potassium Potassium Chloride Carbon Dioxide Anion Gap BUN Creatinine Est Cr Clr Drug Dosing Est GFR ( Amer) Est GFR (Non-Af Amer) BUN/Creatinine Ratio Glucose POC Glucose 134 H 110 H Estimat Average Glucose Hemoglobin A1c Lactate Calcium Phosphorus Magnesium Total Creatine Kinase Random Cortisol Nasal Screen MRSA (PCR) 03/10/23 03/10/23 03/10/23 08:44 09:28 09:56 WBC RBC Hgb POC Hgb Hct POC Hct MCV MCH MCHC RDW Std Deviation RDW Coeff of Lorenzo Plt Count MPV Absolute Nucleated RBC Nucleated RBC % (auto) Platelet Estimate PT INR Sample Site POC pH POC pCO2 POC pO2 POC HCO3 POC Total CO2 POC Base Excess ABG pH (Temp Correct) ABG pCO2 (Temp Corrct POC ABG pO2 at Pt Temp POC ABG O2 Sat Kota Test VBG pH VBG pCO2 VBG pO2 VBG HCO3 VBG O2 Saturation VBG Base Excess O2 Delivery Device POC O2 Rate POC FiO2 IPAP POC Sodium Sodium Pending POC Potassium Potassium Pending Chloride Pending Carbon Dioxide Pending Anion Gap Pending BUN Pending Creatinine Pending Est Cr Clr Drug Dosing Pending Est GFR ( Amer) Pending Est GFR (Non-Af Amer) Pending BUN/Creatinine Ratio Pending Glucose Pending POC Glucose 136 H 129 H Estimat Average Glucose Hemoglobin A1c Lactate Calcium Pending Phosphorus Magnesium Total Creatine Kinase Random Cortisol Nasal Screen MRSA (PCR) 03/10/23 09:56 WBC RBC Hgb POC Hgb Hct POC Hct MCV MCH MCHC RDW Std Deviation RDW Coeff of Lorenzo Plt Count MPV Absolute Nucleated RBC Nucleated RBC % (auto) Platelet Estimate PT INR Sample Site POC pH POC pCO2 POC pO2 POC HCO3 POC Total CO2 POC Base Excess ABG pH (Temp Correct) ABG pCO2 (Temp Corrct POC ABG pO2 at Pt Temp POC ABG O2 Sat Kota Test VBG pH 7.31 L VBG pCO2 51 H VBG pO2 49 VBG HCO3 26 VBG O2 Saturation 82.1 VBG Base Excess -1.0 O2 Delivery Device POC O2 Rate POC FiO2 IPAP POC Sodium Sodium POC Potassium Potassium Chloride Carbon Dioxide Anion Gap BUN Creatinine Est Cr Clr Drug Dosing Est GFR ( Amer) Est GFR (Non-Af Amer) BUN/Creatinine Ratio Glucose POC Glucose Estimat Average Glucose Hemoglobin A1c Lactate Calcium Phosphorus Magnesium Total Creatine Kinase Random Cortisol Nasal Screen MRSA (PCR) PG Care Time/CCT Total # of Minutes Spent Total Time Spent with Patient: Total time spent is greater than 50% in coordination of care (as documented) at patient's floor/unit and/or counseling patient: Coding Level of Care Code 57277 SUB INP/OBS CARE 3/50MIN Diagnoses Acute kidney injury N17.9 CKD (chronic kidney disease) N18.9 Metabolic acidosis E87.20 Hyperkalemia E87.5
[2023-03-10 10:35] LABS: BUN Creatinine Ratio 30.1 (10-20); Calcium 9.1 mg/dl (8.6-10.3); Est GFR (African American) 25.2 ml/min; Est GFR (Non-African American) 21.7 ml/min; Potassium 4.6 mmol/L (3.5-5.1)
--- NOTE | 2023-03-10 12:09 | Electrocardiogram Report ---
Test Reason : Blood Pressure : / mmHG Vent. Rate : 086 BPM Atrial Rate : 086 BPM P-R Int : 198 ms QRS Dur : 092 ms QT Int : 286 ms P-R-T Axes : 021 032 138 degrees QTc Int : 342 ms Poor data quality, interpretation may be adversely affected Sinus rhythm with occasional Premature ventricular complexes Diffuse Minor Nonspecific T wave abnormality Abnormal ECG When compared with ECG of 09-MAR-2023 01:30, HR has decreased by 40 bpm Premature ventricular complexes are now Present Nonspecific T wave abnormality, worse in Anterolateral leads Confirmed by Avi Bucio ([id number]) on 03/10/2023 12:08:59 PM Referred By: REFERRED SELF Confirmed By:Avi Bucio
--- NOTE | 2023-03-10 13:00 | Pharmacy Report ---
Pharmacy Glycemic Short Note 2 - Date of Service March 10, 2023 - Glycemic Short BSG Results (Last 24 hours): 03/09/23 03/09/23 03/09/23 12:30 14:22 16:01 Glucose 282 H 184 H POC Glucose 218 H 03/09/23 03/09/23 03/09/23 16:32 17:27 18:38 Glucose POC Glucose 222 H 222 H 211 H 03/09/23 03/09/23 03/09/23 19:12 19:27 20:34 Glucose 201 H POC Glucose 212 H 172 H 03/09/23 03/09/23 03/10/23 21:34 22:36 00:05 Glucose 127 H POC Glucose 179 H 142 H 03/10/23 03/10/23 03/10/23 00:32 01:35 02:34 Glucose POC Glucose 120 H 187 H 163 H 03/10/23 03/10/23 03/10/23 03:31 04:36 05:39 Glucose POC Glucose 138 H 130 H 110 H 03/10/23 03/10/23 03/10/23 06:22 06:23 07:30 Glucose 126 H POC Glucose 134 H 110 H 03/10/23 03/10/23 03/10/23 08:44 09:28 09:56 Glucose 132 H POC Glucose 136 H 129 H 03/10/23 11:05 Glucose POC Glucose 125 H OUTPATIENT ANTIDIABETIC REGIMEN: * Levemir 62 units BID * Trulicity 1.5 mg SC weekly * HbA1c: 7.0% (03/10/23) ASSESSMENT: 03/10: * Hema was started on an insulin drip yesterday afternoon and transferred to the ICU due to possible sepsis secondary to cellulitis and hyperkalemia. In total, received approximately 110 units of insulin yesterday between the 40 units of basal, 44 units from the insulin drip, 7 units of Novolog and 20 units of IV boluses for hyperkalemia. BSGs trended down nicely throughout the day. * Potassium was 4.8 this morning. Patient did receive a 10 unit IV bolus of insulin around 1 am secondary to hyperkalemia. BSG was down to 110 mg/dL this AM with the insulin drip running at 2.7 units/hour. Decision was made during ICU rounds to discontinue the insulin drip and transition patient to basal bolus insulin. Will give about half of the patient's home dose of basal insulin and shut the drip off. Novolog will be ordered based on previous admission data. Going to add a scaled basal dose for bedtime should the patie nt be hyperglycemic. * Remains on Daptomycin and Ertapenem. Bicarb drip is in sterile water and rate was decreased to 100 mL/hr today. Continues on Veltassa TID for hyperkalemia so will continue to monitor K. Ordered a T2DM diet but is not eating anything secondary to nausea. 03/09: * Mr Grajeda is a 52 y/o M with a PMH of T2Dm who presents with cellulitis. Patient is currently admitted to the ICU. * Patient is currently on Zosyn + Daptomycin. He has an JUAREZ (currently creatinine is 3 and baseline is 1.4 mg/dL). * Admitting BSG was 187 mg/dL overnight but patient received two IV 10 unit insulin boluses + an amp of D50 for hyperkalemia. * On admission to ICU, BSWG was 264 mg/dL. * For Lantus, will start 30 units BID (alternate doses available for low and high blood sugars). Most previous data for patient is when he is on high dose steroids. * For Novolog, Will use weight-based stress of 2-3. PLAN FOR INPATIENT GLYCEMIC CONTROL: * Basal insulin * Lantus 50 units SC daily * Lantus 0-20 units SC HS (see eMAR for more details) * Bolus insulin * NovoLog per scale ACHS or Q6hrs while NPO * Goal Range: Low 110 mg/dL - High 140 mg/dL * Correction Factor: 8 mg/dL/unit * Nutritional / Prandial insulin per carb ratio of 1 unit per 3 grams CHO consumed
[2023-03-10] MEDS: ERTAPENEM SODIUM 1,000 MG in SYRINGE 0 ML IV SCH (14:10)
[2023-03-10 14:29] LABS: Base Excess VBG -0.7 mEq/L; HCO3 VBG 26 mmol/L; Oxygen Saturation VBG 64.3 %; PCO2 VBG 49 mmHg (38-50); PO2 VBG 37 mmHg; pH VBG 7.33 (7.36-7.41)
[2023-03-10 14:52] LABS: BUN Creatinine Ratio 30.5 (10-20); Calcium 9.1 mg/dl (8.6-10.3); Est GFR (Non-African American) 22.4 ml/min; Potassium 4.3 mmol/L (3.5-5.1)
[2023-03-10 18:34] LABS: Base Excess VBG 2.7 mEq/L; HCO3 VBG 29 mmol/L; Oxygen Saturation VBG 63.8 %; PCO2 VBG 50 mmHg (38-50); PO2 VBG 38 mmHg; pH VBG 7.37 (7.36-7.41)
[2023-03-10 18:58] LABS: BUN Creatinine Ratio 29.9 (10-20); Calcium 9.1 mg/dl (8.6-10.3); Creatinine Clr Calc Pharmacy 40.6 ml/min; Est GFR (African American) 27.8 ml/min; Potassium 4.4 mmol/L (3.5-5.1)
[2023-03-10] MEDS ORDERED: LANTUS PER UNIT CHARGE SC ONE (21:00)
[2023-03-10 23:16] LABS: Base Excess VBG 3.9 mEq/L; HCO3 VBG 30 mmol/L; Oxygen Saturation VBG 63.1 %; PCO2 VBG 51 mmHg (38-50); PO2 VBG 38 mmHg; pH VBG 7.38 (7.36-7.41)
[2023-03-10 23:38] LABS: BUN Creatinine Ratio 30.5 (10-20); Calcium 8.8 mg/dl (8.6-10.3); Creatinine Clr Calc Pharmacy 44.4 ml/min; Est GFR (Non-African American) 26.8 ml/min; Potassium 4.1 mmol/L (3.5-5.1)
--- NOTE | 2023-03-10 23:45 | Hospitalist Progress Note ---
Date of Service March 10, 2023 Assessment & Plan (1) Bilateral cellulitis of lower leg: Plan: Attending: Dr. Castano Admited to ICU with the indication of hyperkalemia Daptomycin and Zosyn started. On board for antibiotic coverage for skin tosin with risk for Pseudomonas. Zosyn discontinued and patient started on ertapenem for previous resistance in the urine from September 2022 Normal lactic acid on admission Patient does seem to be improved today Continue IV daptomycin and ertapenem. Strict ins and outs to be observed (2) Hyperkalemia: Plan: Patient with poor response initially to conventional treatment for hyperkalemia Patient was then started on Patiromer 3 times daily. Continue sodium bicarb IV infusion but reduced to 100 mL/h Continue with every 4 hour labs Nephrology is consulted. Dr. 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 Mitral valve repair in 2014 History of first-degree AV block Home medications include carvedilol chronically Valsartan was just initiated in January 2023 Patient apparently not on any antiplatelet therapy Patient will need close outpatient follow-up on discharge EKG with no ST changes. QTc of 342 ms. Some premature ventricular complexes. No indication of ACS Patient with history of hypertension. Hold antihypertensives at this time. Random cortisol level was low but patient is showing improvement as comorbidities are treated Continue to monitor on telemetry (5) CKD (chronic kidney disease) stage 3, GFR 30-59 ml/min: Plan: Baseline creatinine is approximately 1.7 Follows with [facility] Continue to follow serial labs Nephrology consulted. Appreciate their input (6) History of stroke: Plan: Right-sided hemiplegia as a result No acute changes PT/OT evaluation and treatment once patient is stable (7) Diabetes mellitus type 2, uncontrolled: Plan: Hemoglobin A1c 7% Glycemic consult placed with pharmacy due to acute illness in the intensive care unit Convert to home medications when patient is stable Laboratory Tests 03/10/23 06:22 Hemoglobin A1c 7.0 H (8) Acute kidney injury: Plan: As above (9) HTN (hypertension): Plan: Hold antihypertensives for now (10) DVT prophylaxis: Plan: INR supratherapeutic. Coumadin currently being held Plan Patient stable for downgrade from intensive care to telemetry. Transfer orders placed for PCU telemetry Disposition: Patient is improving. Possible need for inpatient rehab on discharge DVT prophylaxis: Warfarin, currently supratherapeutic CODE STATUS: Full code Admission and Anticipated Discharge Date Admission Date: March 09, 2023 Subjective Attending: Dr. Brandon Is a 52-year-old male that was admitted yesterday for acute on chronic renal failure, electrolyte imbalance, concerns for sepsis secondary to infection from bilateral lower extremity cellulitis versus urinary source. Review of Systems Review of Systems: A total of 10 systems was reviewed and is negative other than as listed in the HPI Physical Exam Physical Exam: GENERAL : No acute distress EYES: No icterus, gaze conjugate NOSE: No evidence of epistaxis MOUTH: No lesions or candidiasis NECK: Supple LUNGS: CTA B/L, no wheezes, rales or rhonchi HEART: Regular, rate controlled ABDOMEN: Soft, NT, ND, BS Present BACK: Patient was examined after being placed on his right lateral recumbent side. He does have some areas of breakdown in the sacrum region. (Wound care nurse was consulted and photos were obtained.) Tender to touch with some light bleeding. No evidence of pus or significant infection appreciated EXTREMITIES: Bilateral lower extremity edema. Pedal pulses are intact and equal. Patient has significant tenderness to light palpation of the lower extremities NEURO: A&OX3 Results & Data Results & Data Vital Signs (Past 12 Hours) Vital Signs Temp Pulse Pulse Resp BP BP BP 03/10/23 23:05 91 H 22 03/10/23 23:14 36.6 C 88 19 123/64 03/10/23 19:47 03/10/23 19:20 36.4 C L 88 15 110/60 03/10/23 18:00 86 20 03/10/23 17:00 85 16 03/10/23 16:00 88 22 03/10/23 15:07 101/47 L 03/10/23 15:07 79 17 03/10/23 15:00 79 18 03/10/23 14:37 103/53 L 03/10/23 14:37 81 17 03/10/23 14:07 101/58 L 03/10/23 14:07 80 16 03/10/23 14:00 83 17 03/10/23 13:37 97/50 L 03/10/23 13:37 78 16 03/10/23 13:07 76 14 03/10/23 13:07 100/49 L 03/10/23 13:00 77 12 03/10/23 12:37 83 21 03/10/23 12:37 107/56 L 03/10/23 12:11 80 13 03/10/23 12:11 95/46 L 03/10/23 12:08 73 18 03/10/23 12:00 79 12 03/10/23 18:00 36.8 C 03/10/23 15:00 81 03/10/23 11:59 36.4 C L 03/10/23 11:55 Pulse Ox Pulse Ox O2 Del Method O2 Del Method FiO2 03/10/23 23:05 100 21 03/10/23 23:14 97 BiPAP 03/10/23 19:47 Room Air 03/10/23 19:20 97 Room Air 03/10/23 18:00 99 03/10/23 17:00 97 03/10/23 16:00 97 03/10/23 15:07 03/10/23 15:07 95 03/10/23 15:00 99 03/10/23 14:37 03/10/23 14:37 98 03/10/23 14:07 03/10/23 14:07 98 03/10/23 14:00 95 03/10/23 13:37 03/10/23 13:37 100 03/10/23 13:07 99 03/10/23 13:07 03/10/23 13:00 99 03/10/23 12:37 98 03/10/23 12:37 03/10/23 12:11 100 03/10/23 12:11 03/10/23 12:08 100 03/10/23 12:00 97 03/10/23 18:00 03/10/23 15:00 03/10/23 11:59 03/10/23 11:55 99 Nasal Cannula Critical Care Results & Data Vital Signs (Past 12 Hours) Vital Signs Temp Pulse Pulse Resp BP BP BP 03/10/23 23:05 91 H 22 03/10/23 23:14 36.6 C 88 19 123/64 03/10/23 19:47 03/10/23 19:20 36.4 C L 88 15 110/60 03/10/23 18:00 86 20 03/10/23 17:00 85 16 03/10/23 16:00 88 22 03/10/23 15:07 101/47 L 03/10/23 15:07 79 17 03/10/23 15:00 79 18 03/10/23 14:37 103/53 L 03/10/23 14:37 81 17 03/10/23 14:07 101/58 L 03/10/23 14:07 80 16 03/10/23 14:00 83 17 03/10/23 13:37 97/50 L 03/10/23 13:37 78 16 03/10/23 13:07 76 14 03/10/23 13:07 100/49 L 03/10/23 13:00 77 12 03/10/23 12:37 83 21 03/10/23 12:37 107/56 L 03/10/23 12:11 80 13 03/10/23 12:11 95/46 L 03/10/23 12:08 73 18 03/10/23 12:00 79 12 03/10/23 18:00 36.8 C 03/10/23 15:00 81 03/10/23 11:59 36.4 C L 03/10/23 11:55 Pulse Ox Pulse Ox O2 Del Method O2 Del Method FiO2 03/10/23 23:05 100 21 03/10/23 23:14 97 BiPAP 03/10/23 19:47 Room Air 03/10/23 19:20 97 Room Air 03/10/23 18:00 99 03/10/23 17:00 97 03/10/23 16:00 97 03/10/23 15:07 03/10/23 15:07 95 03/10/23 15:00 99 03/10/23 14:37 03/10/23 14:37 98 03/10/23 14:07 03/10/23 14:07 98 03/10/23 14:00 95 03/10/23 13:37 03/10/23 13:37 100 07/21/23 13:07 99 03/10/23 13:07 03/10/23 13:00 99 03/10/23 12:37 98 03/10/23 12:37 03/10/23 12:11 100 03/10/23 12:11 03/10/23 12:08 100 03/10/23 12:00 97 03/10/23 18:00 03/10/23 15:00 03/10/23 11:59 03/10/23 11:55 99 Nasal Cannula Lab & Micro Results (Past 24 Hours) RBC 3.71 M/uL (4.70-6.10) L 03/10/23 WBC 14.06 K/ul (4.8-10.8) H 03/10/23 Hgb 11.3 g/dl (14.0-18.0) L 03/10/23 Hct 32.9 % (42.0-52.0) L 03/10/23 MCV 88.7 fL (80.0-100.0) 03/10/23 MCH 30.5 pg (25.0-34.0) 03/10/23 MCHC 34.3 g/dL (32.0-36.0) 03/10/23 RDW Standard Deviation 55.0 fL (36.4-46.3) H 03/10/23 RDW Coefficient of Variation 16.9 % (11.5-14.5) H 03/10/23 Plt Count 162 K/uL (130-400) 03/10/23 MPV 11.2 fL (9.4-12.4) 03/10/23 Na 135 mmol/L (136-145) L 03/10/23 K 4.1 mmol/L (3.5-5.1) 03/10/23 Cl 99 mmol/L (98-107) 03/10/23 CO2 30 mmol/L (21-32) 03/10/23 Anion Gap 6 (3-11) 03/10/23 BUN 81 mg/dl (6-23) H 03/10/23 Creatinine 2.66 mg/dl (0.6-1.4) H 03/10/23 Estimated GFR ( Amer) 31.0 ml/min 03/10/23 Estimated GFR (Non-Af Amer) 26.8 ml/min 03/10/23 BUN/Creatinine Ratio 30.5 (10-20) H 03/10/23 Glu 136 mg/dl (70-99(Fasting)) H 03/10/23 Ca 8.8 mg/dl (8.6-10.3) 03/10/23 Phosphorus Level 4.9 mg/dl (2.5-4.9) 03/10/23 Mg 1.8 mg/dl (1.7-2.4) 03/10/23 06:22 Calcium Level 8.8 mg/dl (8.6-10.3) 03/10/23 23:04 Prothromb Time International Ratio 5.0 (0.9-1.1) H 03/10/23 06 :22 Venous Blood pH 7.38 (7.36-7.41) 03/10/23 23:04 Venous Blood Partial Pressure CO2 51 mmHg (38-50) H 03/10/23 23 :04 Venous Blood Partial Pressure O2 38 mmHg 03/10/23 23:04 Venous Blood HCO3 30 mmol/L 03/10/23 23:04 Venous Blood Base Excess 3.9 mEq/L 03/10/23 23:04 Venous Blood Oxygen Saturation 63.1 % 03/10/23 23:04 Microbiology 03/09/23 04:23 Aerobic Blood Culture - Preliminary Blood No growth in Aerobic bottle after 24 hours. Anaerobic Blood Culture - Final 03/09/23 01:13 Urine Culture - Final Urine,Clean Catch Three types of organisms present, all high counts. Repeat collection recommended. No further identifications or sensitivities to follow. 03/09/23 00:55 Aerobic Blood Culture - Preliminary Blood No growth in Aerobic bottle after 24 hours. Anaerobic Blood Culture - Preliminary No growth in Anaerobic bottle after 24 hours. I & O Totals 24 Hours 03/09/23 03/10/23 03/11/23 06:59 06:59 06:59 Intake Total 1180 / 1180 4445.058 / 4445.058 2962.605 / 2962.605 Output Total 800 / 800 995 / 995 2450 / 2450 Balance 380 / 380 3450.058 / 3450.058 512.605 / 512.605 Cumulative 03/08/23 20:47 thru 03/10/23 22:12 Intake Total 8587.663 Output Total 4245 Balance 4342.663 RT Ventilator Mngmt (Last Documented) Ventilator Ordered Settings Respiratory Rate 19 03/10/23 23:14 Fraction of Inspired Oxygen 03/10/23 23:05 Ventilator - PT Measurements Respiratory Rate 19 PG Care Time/CCT Total # of Minutes Spent Total Time Spent with Patient: Total time spent is greater than 50% in coordination of care (as documented) at patient's floor/unit and/or counseling patient: 40 minutes Coding Level of Care Code 74553 SUB INP/OBS CARE 3/50MIN Diagnoses Bilateral cellulitis of lower leg L03.116; L03.115 Hyperkalemia E87.5 Supratherapeutic INR R79.1 CAD (coronary atherosclerotic disease) I25.10 CKD (chronic kidney disease) stage 3, GFR 30-59 ml/min N18.3 History of stroke Z86.73 Diabetes mellitus type 2, uncontrolled Acute kidney injury N17.9 HTN (hypertension) I10 Hypertension type: essential hypertension DVT prophylaxis Z29.9 Time Spent (min) 40 (9) HTN (hypertension) Hypertension type: essential hypertension Qualified Code(s): I10 - Essential (primary) hypertension
[2023-03-11] MEDS: SODIUM BICARBONATE 8.4% 150 MEQ in WATER, STERILE 1,000 ML IV SCH (01:39)
[2023-03-11] MEDS ORDERED: MoRPHine SULFATE 2 MG/ML CARP IV STA (03:32)
[2023-03-11] MEDS ORDERED: oxyCODONE HCL IR 5 MG TAB (IMMEDIATE RELEASE) PO STA (04:00)
[2023-03-11 04:54] LABS: Est GFR (African American) 34.3 ml/min; Est GFR (Non-African American) 29.6 ml/min; Potassium 3.9 mmol/L (3.5-5.1)
[2023-03-11 04:55] LABS: BUN Creatinine Ratio 30.2 (10-20); Calcium 8.8 mg/dl (8.6-10.3); Creatinine Clr Calc Pharmacy 48.2 ml/min; Phosphorus 3.4 mg/dl (2.5-4.9)
[2023-03-11] MEDS: PATIROMER CALCIUM SORBITEX 8.4 GM PACK PO SCH (04:58)
[2023-03-11 05:21] LABS: Prothrombin Time 59.9 Seconds (9.0-12.0)
[2023-03-11 05:57] LABS: INR 6.1 (0.9-1.1)
--- NOTE | 2023-03-11 07:24 | Hospitalist Progress Note ---
Date of Service March 11, 2023 Assessment & Plan (1) Bilateral cellulitis of lower leg: Plan: Acute sepsis with need for vasopressors Daptomycin and Zosyn initially, Zosyn replaced with Ertapenem baseon on previous sensitivities On board for antibiotic coverage for skin tosin with risk for Pseudomonas. 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 Mitral valve repair in 2014 History of first-degree AV block Home medications include carvedilol chronically Valsartan was just initiated in January 2023 Patient apparently not on any antiplatelet therapy Patient with history of hypertension. Hold antihypertensives at this time. Random cortisol level was low but patient is showing improvement as comorbidities are treated Continue to monitor on telemetry (5) CKD (chronic kidney disease) stage 3, GFR 30-59 ml/min: Plan: JUAREZ with CKD3 due to sepsis Follows with [facility] Nephrology consulted. Appreciate their input (6) History of stroke: Plan: Right-sided hemiplegia as a result No acute changes PT/OT evaluation and treatment once patient is stable (7) Diabetes mellitus type 2, uncontrolled: Plan: Hemoglobin A1c 7% Glycemic consult placed with pharmacy due to acute illness in the intensive care unit Convert to home medications when patient is stable Laboratory Tests 03/10/23 06:22 Hemoglobin A1c 7.0 H (8) DVT prophylaxis: Plan: INR supratherapeutic. Coumadin currently being held (9) Chronic indwelling Velazquez catheter: Plan: this is a suprapubic catheter the site surrounding is (10) Chronic pain syndrome: Plan: without cellulitis patient has issues with pain currently including spasm of the lower extremities. Typically is on fairly high dose of oxycodone 3 times a day will reinstitute oxycodone therapy (11) Diastolic congestive heart failure: (12) Hypomagnesemia: (13) Myelopathy concurrent with and due to spinal stenosis of cervical region: (14) Morbid obesity: (15) ANIBAL (obstructive sleep apnea): Plan Attending: Dr. Castano Reason Critically Ill: Sepsis secondary to Bilateral LE cellulitis Patient started on daptomycin and Zosyn in the emergency department. Afebrile Lactic acid is 1.7 on admission. Repeat lactate is 0.9 mmol/L Leukocytosis with a WBC of 23,000 Tmax of 37.1 C over the last 24 hours Continue fluid hydration Blood cultures are pending Neuro - [facility] ICU: Patient alert and oriented and able to give history Cardiac - Patient currently hypotensive but maintaining a mean arterial pressure of 63. Systolic pressure was in the low 80s and patient was given an IV bolus of 500 cc of normal saline. This combined with bicarb drip resulted in systolic pressure being maintained in the low to mid 90s. Patient reports that his typical blood pressure at home is in the low 100s. However, it should be noted the patient was just recently started on valsartan and Kerendia in January If patient has further drop in MAP, consider addition of Levophed Continue to monitor in the intensive care unit for now Respiratory - Currently patient is oxygenating well at 98% on room air. Patient currently anticoagulated for pulmonary emboli -supratherapeutic with INR of 4.2 Patient also has history of obstructive sleep apnea and is on BiPAP at home. Unknown settings at this time. Will start the patient on BiPAP at 18/10 and titrate per protocol. Patient can use on BiPAP if available GI - Continue with famotidine No nausea or vomiting no acute complaints. Patient denies diarrhea RENAL/LYTES - Patient with elevated potassium and low magnesium. Patiromer and sodium bicarb was ordered last evening and started this morning Repeat labs at 1300 show persistent elevation of potassium and worsening creatinine Discussed with nephrology. Appreciate Dr. Walton's input -would like to initiate dialysis today. He will discuss with the ICU team as patient is hypertherapeutic with an INR 4.2 Patient does have an indwelling Velazquez catheter. Continue strict I's and O's - Indwelling Velazquez catheter ENDO - Type II diabetic with hemoglobin A1c of 9.5 Sugars were over 300 this morning. They have improved slightly. Most recent [id number] glucose is 218. Glycemic control team Is managing HEME - Hemoglobin is stable at 13.9. No active bleeding No history of blood dyscrasias ID - Bilateral lower extremity cellulitis -continue IV antibiotics. Procalcitonin elevated at 1.69 LINES/IV ACCESS - Patient currently has 4 peripheral IVs. All 4 flushed but only 2 were able to draw Suspect the patient will need central line access. We will hold off for now pending determination with dialysis. If dialysis is needed, consider trialysis catheter DVT PROPHYLAXIS - Patient currently anticoagulated with a supratherapeutic INR 4.2 History of pulmonary embolus as well as deep vein thrombosis We will need to transition to alternative anticoagulant should the patient need invasive intervention CCT: 90 minutes independent of any procedures Thank you for including us in the care of this patient. Please refer to Dr. Castano's addendum for further recommendations. Admission and Anticipated Discharge Date Admission Date: March 09, 2023 Subjective patient is awake and alert he is slightly confused he is having increased spasticity and sensation of pain in his legs. Patient is paraplegic from previous stroke and is nonambulatory typically he has chronic decubitus ulcers which are probably stage II as visualized in wound cares Physical Exam Physical Exam: patient is awake he is oriented x3 cardiac exam is regular without murmurs lungs are clear decreased excursion to the bases given his immobile state extremities are with some venous stasis changes just with minor touch he has spastic contractions Results & Data Results & Data Vital Signs (Past 12 Hours) Vital Signs Temp Pulse Pulse Resp BP BP Pulse Ox 03/11/23 02:00 03/11/23 04:27 97.5 F L 89 14 118/68 94 03/11/23 01:57 86 21 98 03/11/23 01:00 87 03/10/23 23:05 91 H 22 100 03/10/23 23:14 97.9 F 88 19 123/64 97 03/10/23 19:47 03/10/23 19:20 97.5 F L 88 15 110/60 97 O2 Del Method O2 Del Method FiO2 03/11/23 02:00 BiPAP 03/11/23 04:27 BiPAP 03/11/23 01:57 21 03/11/23 01:00 03/10/23 23:05 21 03/10/23 23:14 BiPAP 03/10/23 19:47 Room Air 03/10/23 19:20 Room Air Laboratory Results reviewed PT/INR reviewed chemistry panel PG Care Time/CCT Total # of Minutes Spent Total Time Spent with Patient: Total time spent is greater than 50% in coordination of care (as documented) at patient's floor/unit and/or counseling patient: Coding Level of Care Code 84070 SUB INP/OBS CARE 2/35MIN Diagnoses Bilateral cellulitis of lower leg L03.116; L03.115 Hyperkalemia E87.5 Supratherapeutic INR R79.1 CAD (coronary atherosclerotic disease) I25.10 CKD (chronic kidney disease) stage 3, GFR 30-59 ml/min N18.3 History of stroke Z86.73 Diabetes mellitus type 2, uncontrolled DVT prophylaxis Z29.9 Chronic indwelling Velazquez catheter Z97.8 Chronic pain syndrome G89.4 Diastolic congestive heart failure I50.30 Hypomagnesemia E83.42 Myelopathy concurrent with and due to spinal stenosis of cervical region M48.02; G99.2 Morbid obesity E66.01 ANIBAL (obstructive sleep apnea) G47.33
[2023-03-11] MEDS: allopurinoL 300 MG TAB PO SCH (07:58)
[2023-03-11] MEDS: FAMOTIDINE 40 MG TABLET PO SCH (07:58)
[2023-03-11] MEDS ORDERED: PHYTONADIONE 5 MG TAB PO ONE (08:00)
[2023-03-11] MEDS: INSULIN ASPART PER UNIT CHARGE SC SCH ×4 (08:27→20:51)
--- NOTE | 2023-03-11 08:35 | Nephrology Progress Note ---
Date of Service March 11, 2023 Assessment & Plan (1) Acute kidney injury: Plan: * Nonoliguric JUAERZ due to volume depletion and sepsis. CT was negative for obstruction * Kidney function is gradually improving w/ conservative therapy. Cr is down to 2.4 this am. No acute indication for HD at this time * Serum K and bicarbonate have corrected. 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 Will stop NaHCO3 gtt (4) Hyperkalemia: Plan: * Corrected. Will stop Veltassa Admission and Anticipated Discharge Date Admission Date: March 09, 2023 Subjective Mr. Grajeda was evaluated in the ICU this morning. He reports discomfort related to LE cellulitis. He denies fever, angina, dyspnea. He is tolerating Veltassa therapy without GI upset Review of Systems Constitutional: no fever Eyes: no problem reported Ear, Nose, Mouth, Throat: no problem reported Respiratory: no cough and no dyspnea Cardiovascular: no chest pain Gastrointestinal: no nausea, no vomiting and no diarrhea/loose stools Physical Exam Constitutional: + obese; not in distress Eyes: PERRL, conjunctivae normal, anicteric sclerae ENMT: external ear and nose normal, oropharynx normal Neck: trachea midline, no thyromegaly Respiratory: normal respiratory effort, lungs clear to auscultation Cardiovascular: Rate/Rhythm: regular rate and regular rhythm Extremities: + edema (2+ pretibial edema) Gastrointestinal (Abdomen): normal bowel sounds, soft, nontender, no hepatosplenomegaly Skin: + erythema (extending from knees distally on both sides) Neurologic: Speech / Cognition: normal speech and normal cognition Results & Data Vital Signs (Past 12 Hours) Vital Signs Temp Pulse Pulse Resp BP Pulse Ox Pulse Ox 03/11/23 08:00 93 03/11/23 02:00 03/11/23 04:27 36.4 C L 89 14 118/68 94 03/11/23 01:57 86 21 98 03/11/23 01:00 87 03/10/23 23:05 91 H 22 100 03/10/23 23:14 36.6 C 88 19 123/64 97 O2 Del Method O2 Del Method O2 Del Method FiO2 03/11/23 08:00 Room Air 03/11/23 02:00 BiPAP 03/11/23 04:27 BiPAP 03/11/23 01:57 03/11/23 01:00 03/10/23 23:05 21 03/10/23 23:14 BiPAP Laboratory Results Laboratory Tests 03/09/23 03/10/23 03/11/23 19:12 14:13 04:24 Sodium 135 L Potassium 3.9 Chloride 99 Carbon Dioxide 32 BUN 74 H Creatinine 3.74 H D 3.08 H 2.45 H Glucose 105 H Calcium 8.8 Phosphorus 3.4 D Diagnostic Findings 03/09/23 Blood culture - NGTD 03/09/23 Urine culture > 3 types of bacteria, high count PG Care Time/CCT Total # of Minutes Spent Total Time Spent with Patient: Total time spent is greater than 50% in coordination of care (as documented) at patient's floor/unit and/or counseling patient: Coding Level of Care Code 38624 SUB INP/OBS CARE 3/50MIN Diagnoses Acute kidney injury N17.9 CKD (chronic kidney disease) N18.9 Metabolic acidosis E87.20 Hyperkalemia E87.5
[2023-03-11] MEDS ORDERED: LANTUS PER UNIT CHARGE SC SCH ×2 (09:00→21:00)
--- NOTE | 2023-03-11 13:30 | Pharmacy Report ---
Pharmacy Glycemic Short Note 2 - Date of Service March 11, 2023 - Glycemic Short BSG Results (Last 24 hours): 03/10/23 03/10/23 03/10/23 14:13 16:20 18:17 Glucose 144 H 154 H POC Glucose 135 H 03/10/23 03/10/23 03/11/23 20:11 23:04 04:24 Glucose 136 H 105 H POC Glucose 135 H 03/11/23 03/11/23 07:26 11:31 Glucose POC Glucose 88 119 H OUTPATIENT ANTIDIABETIC REGIMEN: * Levemir 62 units BID * Trulicity 1.5 mg SC weekly * HbA1c: 7.0% (03/10/23) ASSESSMENT: 03/11/23 * BSGs after patient transitioned off insulin infusion were 125-135-135 mg/dL and this morning the fast was 88 mg/dL. * Patient received Lantus 50 units yesterday + 3 units of bolus. * Patient's PO intake is not high, will hold basal insulin until dinner today. Lunch BSG was 119 mg/dL. * Loosen Novolog. * Patient's kidney function has improved slightly with creatinine of 2.45 mg/dL today. 03/10: * Hema was started on an insulin drip yesterday afternoon and transferred to the ICU due to possible sepsis secondary to cellulitis and hyperkalemia. In total, received approximately 110 units of insulin yesterday between the 40 units of basal, 44 units from the insulin drip, 7 units of Novolog and 20 units of IV boluses for hyperkalemia. BSGs trended down nicely throughout the day. * Potassium was 4.8 this morning. Patient did receive a 10 unit IV bolus of insulin around 1 am secondary to hyperkalemia. BSG was down to 110 mg/dL this AM with the insulin drip running at 2.7 units/hour. Decision was made during ICU rounds to discontinue the insulin drip and transition patient to basal bolus insulin. Will give about half of the patient's home dose of basal insulin and shut the drip off. Novolog will be ordered based on previous admission data. Going to add a scaled basal dose for bedtime should the patient be hyperglycemic. * Remains on Daptomycin and Ertapenem. Bicarb drip is in sterile water and rate was decreased to 100 mL/hr today. Continues on Veltassa TID for hyperkalemia so will continue to monitor K. Ordered a T2DM diet but is not eating anything secondary to nausea. 03/09: * Mr Grajeda is a 52 y/o M with a PMH of T2Dm who presents with cellulitis. Patient is currently admitted to the ICU. * Patient is currently on Zosyn + Daptomycin. He has an JUAREZ (currently creatinine is 3 and baseline is 1.4 mg/dL). * Admitting BSG was 187 mg/dL overnight but patient received two IV 10 unit insu tiffanie boluses + an amp of D50 for hyperkalemia. * On admission to ICU, BSWG was 264 mg/dL. * For Lantus, will start 30 units BID (alternate doses available for low and high blood sugars). Most previous data for patient is when he is on high dose steroids. * For Novolog, Will use weight-based stress of 2-3. PLAN FOR INPATIENT GLYCEMIC CONTROL: * Basal insulin * Lantus 30 units SC HS * Bolus insulin * NovoLog per scale ACHS or Q6hrs while NPO * Goal Range: Low 110 mg/dL - High 140 mg/dL * Correction Factor: 15mg/dL/unit * Nutritional / Prandial insulin per carb ratio of 1 unit per 6 grams CHO consumed
[2023-03-11] MEDS ORDERED: BACLOFEN 10 MG TAB PO ONE (13:38)
[2023-03-11] MEDS: ERTAPENEM SODIUM 1,000 MG in SYRINGE 0 ML IV SCH (13:51)
[2023-03-11] MEDS ORDERED: oxyCODONE HCL IR 5 MG TAB (IMMEDIATE RELEASE) PO PRN (16:13)
[2023-03-11] MEDS ORDERED: HYDROmorphone INJ 0.5 MG/0.5 ML SYR IV PRN (16:13)
[2023-03-11] MEDS ORDERED: BACLOFEN 10 MG TAB PO PRN (17:00)
[2023-03-11] MEDS: LANTUS PER UNIT CHARGE SC SCH (18:22)
[2023-03-11] MEDS: oxyCODONE HCL IR 5 MG TAB (IMMEDIATE RELEASE) PO SCH (20:43)
[2023-03-12 06:19] LABS: BUN Creatinine Ratio 28.5 (10-20); Calcium 8.9 mg/dl (8.6-10.3); Creatinine Clr Calc Pharmacy 64.7 ml/min; Est GFR (African American) 50.1 ml/min; Est GFR (Non-African American) 43.2 ml/min; Phosphorus 3.2 mg/dl (2.5-4.9); Potassium 3.9 mmol/L (3.5-5.1)
[2023-03-12 07:49] LABS: INR 1.4 (0.9-1.1)
[2023-03-12] MEDS: INSULIN ASPART PER UNIT CHARGE SC SCH ×4 (08:23→20:41)
[2023-03-12] MEDS: FAMOTIDINE 40 MG TABLET PO SCH (08:25)
[2023-03-12] MEDS: allopurinoL 300 MG TAB PO SCH (08:26)
[2023-03-12] MEDS: oxyCODONE HCL IR 5 MG TAB (IMMEDIATE RELEASE) PO SCH ×3 (08:32→20:34)
--- NOTE | 2023-03-12 08:52 | Hospitalist Progress Note ---
Date of Service March 12, 2023 Assessment & Plan (1) Bilateral cellulitis of lower leg: Plan: Acute sepsis with need for vasopressors Daptomycin and Zosyn initially, Zosyn replaced with Ertapenem based on on previous sensitivities On board for antibiotic coverage for skin tosin with risk for Pseudomonas. 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 Mitral valve repair in 2014 History of first-degree AV block Home medications include carvedilol chronically Valsartan was just initiated in January 2023 Patient apparently not on any antiplatelet therapy Random cortisol level was low but patient is showing improvement as comorbidities are treated (5) CKD (chronic kidney disease) stage 3, GFR 30-59 ml/min: Plan: JUAREZ with CKD3 due to sepsis Follows with [facility] Nephrology consulted. Appreciate their input (6) History of stroke: Plan: Right-sided hemiplegia as a result No acute changes PT/OT evaluation and treatment once patient is stable (7) Diabetes mellitus type 2, uncontrolled: Plan: Hemoglobin A1c 7% Glycemic consult placed with pharmacy due to acute illness in the intensive care unit Convert to home medications when patient is stable Laboratory Tests 03/10/23 06:22 Hemoglobin A1c 7.0 H (8) DVT prophylaxis: Plan: INR now normalized, resume coumadin (9) Chronic indwelling Velazquez catheter: Plan: this is a suprapubic catheter the site surrounding is (10) Chronic pain syndrome: Plan: Typically is on fairly high dose of oxycodone 3 times a day will reinstitute oxycodone therapy (11) Diastolic congestive heart failure: (12) Morbid obesity: (13) ANIBAL (obstructive sleep apnea): Admission and Anticipated Discharge Date Admission Date: March 09, 2023 Subjective Pt is improved, discussed typical oxycodone dosing, improved leg spasticity Physical Exam Physical Exam: patient is awake he is oriented x3 cardiac exam is regular without murmurs lungs are clear decreased excursion to the bases given his immobile state extremities are with some venous stasis changes just with minor touch he has spastic contractions Results & Data Results & Data Vital Signs (Past 12 Hours) Vital Signs Temp Pulse Pulse Resp BP Pulse Ox O2 Del Method 03/12/23 07:40 90 03/12/23 07:07 98.1 F 92 H 18 144/80 H 96 Room Air 03/12/23 02:57 98.2 F 90 18 163/84 H 94 Room Air 03/11/23 22:17 94 H 03/11/23 23:04 98.1 F 92 H 19 131/75 92 Room Air 03/11/23 21:03 Room Air PG Care Time/CCT Total # of Minutes Spent Total Time Spent with Patient: Total time spent is greater than 50% in coordination of care (as documented) at patient's floor/unit and/or counseling patient: Coding Level of Care Code 78186 SUB INP/OBS CARE 2/35MIN Diagnoses Bilateral cellulitis of lower leg L03.116; L03.115 Hyperkalemia E87.5 Supratherapeutic INR R79.1 CAD (coronary atherosclerotic disease) I25.10 CKD (chronic kidney disease) stage 3, GFR 30-59 ml/min N18.3 History of stroke Z86.73 Diabetes mellitus type 2, uncontrolled DVT prophylaxis Z29.9 Chronic indwelling Velazquez catheter Z97.8 Chronic pain syndrome G89.4 Diastolic congestive heart failure I50.30 Morbid obesity E66.01 ANIBAL (obstructive sleep apnea) G47.33
--- NOTE | 2023-03-12 09:01 | Nephrology Progress Note ---
Date of Service March 12, 2023 Assessment & Plan (1) Acute kidney injury: Plan: * Nonoliguric JUAREZ due to volume depletion and sepsis. CT was negative for obstruction * Kidney function is gradually improving w/ conservative therapy. Patient remains nonoliguric. Cr is down to 1.79 this am. 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 No dosage adjustment needed for CrCl>30 cc/min Admission and Anticipated Discharge Date Admission Date: March 09, 2023 Subjective Mr. Grajeda was evaluated in his hospital room this morning. He reports that his discomfort due to LE cellulitis is less. He denies fever, angina, dyspnea. He voices no new medical concerns Review of Systems Constitutional: no fever Eyes: no problem reported Ear, Nose, Mouth, Throat: no problem reported Respiratory: no cough and no dyspnea Cardiovascular: no chest pain Gastrointestinal: no nausea, no vomiting and no diarrhea/loose stools Physical Exam Constitutional: + obese; not in distress Eyes: PERRL, conjunctivae normal, anicteric sclerae ENMT: external ear and nose normal, oropharynx normal Neck: trachea midline, no thyromegaly Respiratory: normal respiratory effort, lungs clear to auscultation Cardiovascular: Rate/Rhythm: regular rate and regular rhythm Extremities: + edema (2+ pretibial edema) Gastrointestinal (Abdomen): normal bowel sounds, soft, nontender, no hepatos plenomegaly Skin: + erythema (extending from knees distally on both sides) Neurologic: Speech / Cognition: normal speech and normal cognition Results & Data Vital Signs (Past 12 Hours) Vital Signs Temp Pulse Pulse Resp BP Pulse Ox O2 Del Method 03/12/23 07:40 90 03/12/23 07:07 36.7 C 92 H 18 144/80 H 96 Room Air 03/12/23 02:57 36.8 C 90 18 163/84 H 94 Room Air 03/11/23 22:17 94 H 03/11/23 23:04 36.7 C 92 H 19 131/75 92 Room Air 03/11/23 21:03 Room Air Laboratory Results Laboratory Tests 03/12/23 05:28 Sodium 140 Potassium 3.9 Chloride 99 Carbon Dioxide 34 H BUN 51 H D Creatinine 1.79 H D Glucose 117 H Calcium 8.9 Phosphorus 3.2 Coding Level of Care Code 18875 SUB INP/OBS CARE 3/50MIN Diagnoses Acute kidney injury N17.9 CKD (chronic kidney disease) N18.9 Cellulitis of both lower extremities L03.115; L03.116
[2023-03-12] MEDS: ERTAPENEM SODIUM 1,000 MG in SYRINGE 0 ML IV SCH (15:35)
[2023-03-12] MEDS: LANTUS PER UNIT CHARGE SC SCH (20:40)
[2023-03-13] MEDS: oxyCODONE HCL IR 5 MG TAB (IMMEDIATE RELEASE) PO SCH ×2 (02:00→09:30)
[2023-03-13 07:19] LABS: BUN Creatinine Ratio 23.1 (10-20); Calcium 9.1 mg/dl (8.6-10.3); Creatinine Clr Calc Pharmacy 74.2 ml/min; Est GFR (African American) 59.2 ml/min; Phosphorus 2.7 mg/dl (2.5-4.9)
[2023-03-13 07:30] LABS: INR 1.4 (0.9-1.1); Prothrombin Time 15.1 Seconds (9.0-12.0)
--- NOTE | 2023-03-13 08:47 | Nephrology Progress Note ---
Date of Service March 13, 2023 Assessment & Plan (1) Acute kidney injury: Plan: * Nonoliguric JUAREZ due to volume depletion and sepsis. CT was negative for obstruction * JUAREZ has resolved. Cr is down to 1.56 this am * Serum K remains acceptable * No further Nephrology evaluation indicated at this time. Will sign off. 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 No dosage adjustment needed for CrCl>30 cc/min Admission and Anticipated Discharge Date Admission Date: March 09, 2023 Subjective Mr. Grajeda was evaluated in his hospital room this morning. He reports that his discomfort due to LE cellulitis is less. He denies fever, angina, dyspnea. He voices no new medical concerns Review of Systems Constitutional: no fever Eyes: no problem reported Ear, Nose, Mouth, Throat: no problem reported Respiratory: no cough and no dyspnea Cardiovascular: no chest pain Gastrointestinal: no nausea, no vomiting and no diarrhea/loose stools Physical Exam Constitutional: + obese; not in distress Eyes: PERRL, conjunctivae normal, anicteric sclerae ENMT: external ear and nose normal, oropharynx normal Neck: trachea midline, no thyromegaly Respiratory: normal respiratory effort, lungs clear to auscultation Cardiovascular: Rate/Rhythm: regular rate and regular rhythm Extremities: + edema (2+ pretibial edema) Gastrointestinal (Abdomen): normal bowel sounds, soft, nontender, no hepatosplenomegaly Skin: + erythema (improved) Neurologic: Speech / Cognition: normal speech and normal cognition Results & Data Vital Signs (Past 12 Hours) Vital Signs Temp Pulse Pulse Resp BP Pulse Ox O2 Del Method 03/13/23 08:02 90 03/13/23 07:14 36.6 C 90 21 164/93 H 95 Room Air 03/13/23 03:13 36.5 C 56 L 18 154/89 H 95 Room Air 03/12/23 23:18 36.7 C 88 18 144/90 H 97 Room Air 03/12/23 22:11 95 H 20 98 FiO2 03/13/23 08:02 03/13/23 07:14 03/13/23 03:13 03/12/23 23:18 03/12/23 22:11 21 Laboratory Results Laboratory Tests 03/13/23 06:42 Sodium 138 Potassium 4.0 Chloride 98 Carbon Dioxide 33 H BUN 36 H Creatinine 1.56 H Glucose 149 H Coding Level of Care Code 16933 SUB INP/OBS CARE 3/50MIN Diagnoses Acute kidney injury N17.9 CKD (chronic kidney disease) N18.9 Cellulitis of both lower extremities L03.115; L03.116
[2023-03-13] MEDS: allopurinoL 300 MG TAB PO SCH (09:27)
[2023-03-13] MEDS: FAMOTIDINE 40 MG TABLET PO SCH (09:27)
[2023-03-13] MEDS: INSULIN ASPART PER UNIT CHARGE SC SCH ×2 (09:37→12:47)
--- NOTE | 2023-03-13 12:33 | Pharmacy Report ---
Pharmacy Glycemic Short Note 2 - Date of Service March 13, 2023 - Glycemic Short BSG Results (Last 24 hours): 03/12/23 03/12/23 03/12/23 16:28 20:20 21:30 Glucose POC Glucose 160 H 135 H 127 H 03/13/23 03/13/23 03/13/23 06:42 07:16 11:10 Glucose 149 H POC Glucose 133 H 141 H OUTPATIENT ANTIDIABETIC REGIMEN: * Levemir 62 units BID * Trulicity 1.5 mg SC weekly * HbA1c: 7.0% (03/10/23) ASSESSMENT: 03/13/23 * Patient's BSGs yesterday were [phone] mg/dL. He received 38 units of insulin (30 units of basal and 8 units of bolus). * Today's BSGs are 130-141 mg/dL. * Continue insulin regimen as BSGs well controlled yesterday. 03/11/23 * BSGs after patient transitioned off insulin infusion were 125-135-135 mg/dL and this morning the fast was 88 mg/dL. * Patient received Lantus 50 units yesterday + 3 units of bolus. * Patient's PO intake is not high, will hold basal insulin until dinner today. Lunch BSG was 119 mg/dL. * Loosen Novolog. * Patient's kidney function has improved slightly with creatinine of 2.45 mg/dL today. 03/10: * Hema was started on an insulin drip yesterday afternoon and transferred to the ICU due to possible sepsis secondary to cellulitis and hyperkalemia. In total, received approximately 110 units of insulin yesterday between the 40 units of basal, 44 units from the insulin drip, 7 units of Novolog and 20 units of IV boluses for hyperkalemia. BSGs trended down nicely throughout the day. * Potassium was 4.8 this morning. Patient did receive a 10 unit IV bolus of insulin around 1 am secondary to hyperkalemia. BSG was down to 110 mg/dL this AM with the insulin drip running at 2.7 units/hour. Decision was made during ICU rounds to discontinue the insulin drip and transition patient to basal bolus insulin. Will give about half of the patient's home dose of basal insulin and shut the drip off. Novolog will be ordered based on previous admission data. Going to add a scaled basal dose for bedtime should the patient be hyperglycemic. * Remains on Daptomycin and Ertapenem. Bicarb drip is in sterile water and rate was decreased to 100 mL/hr today. Continues on Veltassa TID for hyperkalemia so will continue to monitor K. Ordered a T2DM diet but is not eating anything secondary to nausea. 03/09: * Mr Grajeda is a 52 y/o M with a PMH of T2Dm who presents with cellulitis. Patient is currently admitted to the ICU. * Patient is currently on Zosyn + Daptomycin. He has an JUAREZ (currently creatinine is 3 and baseline is 1.4 mg/dL). * Admitting BSG was 187 mg/dL overnight but patient received two IV 10 unit insulin boluses + an amp of D50 for hyperkalemia. * On admission to ICU, BSWG was 264 mg/dL. * For Lantus, will start 30 units BID (alternate doses available for low and high blood sugars). Most previous data for patient is when he is on high dose steroids. * For Novolog, Will use weight-based stress of 2-3. PLAN FOR INPATIENT GLYCEMIC CONTROL: * Basal insulin * Lantus 30 units SC HS * Bolus insulin * NovoLog per scale ACHS or Q6hrs while NPO * Goal Range: Low 110 mg/dL - High 140 mg/dL * Correction Factor: 15mg/dL/unit * Nutritional / Prandial insulin per carb ratio of 1 unit per 6 grams CHO consumed
[2023-03-13] MEDS: ERTAPENEM SODIUM 1,000 MG in SYRINGE 0 ML IV SCH (14:40)
--- NOTE | 2023-03-13 18:03 | Discharge Summary ---
Date of Service March 13, 2023 Admission HPI Per Admitting Provider Patient is a 52-year-old male with a past medical history of uncontrolled type 2 diabetes, history of DVT and PE, diastolic congestive heart failure, obstructive sleep apnea, chronic indwelling suprapubic catheter, celiac disease, morbid obesity, diabetic nephropathy, CAD, CKD 3, hypertension, and previous CVA with right-sided adriana-plegia who presents to the emergency room for the chief complaint of rash. Patient reports that since Monday, he has had progressively worsening, painful rash developing on his leg that is erythematous and hot to the touch. He saw the [facility] tetryl blender operator for this and they prescribed a topical steroid. Patient reports that after applying this, it progressively became worse to the point that he was so concerned about the size a fellow need to be urgently seen. Patient called EMS and was brought to the hospital for further evaluation. ED course: Patient evaluated by one of our providers. Lab work taken and is significant for a white count of 23.2, INR of 4.2, PTT of 48.4, sodium of 131, potassium 7.5, creatinine of 3.08, magnesium of 1.6, alk phos of 262, C-reactive protein of 21.9, procalcitonin of 1.7, and urinalysis with positive leukocyte esterase white blood cells and bacteria. CT of the abdomen and pelvis showing left perinephric inflammatory changes without hydroureteronephrosis, suprapubic Velazquez catheter, right lower quadrant colostomy, and cholelithiasis without acute cholecystitis. EKG taken in the ED did show mildly peaked T waves. Patient was given 10 units of insulin with dextrose, calcium gluconate, daptomycin, Zosyn, a bolus of 1 L of normal saline. The hospitalist service was consulted for admission to the hospital for further management. Principal Diagnosis sepsis from cellulitis hyperkalemia supratherapeutic INR Discharge Exam paraplegic improved cellulitis Discharge Data Allergies Allergy/AdvReac Type Severity Reaction Status Date / Time gluten Allergy Verified 03/10/23 16:48 sulfamethoxazole AdvReac Unknown "Levels Verified 01/02/23 10:10 [From Bactrim] were up"-per [facility] trimethoprim [From Bactrim] AdvReac Unknown "Levels Verified 01/02/23 10:10 were up[facility] 03/09/23 01:53 ED Decision to Admit Stat 03/09/23 08:28 Consult Nephrology Routine 03/09/23 11:57 Consult Measurement And Verification Engineer Routine Ordered Studies 03/09/23 01:47 CT abd pelvis wo con Stat 03/09/23 11:55 US venous duplex leg [US venous doppler LE BI] Routine Hospital Course (1) Bilateral cellulitis of lower leg: Acute sepsis with need for vasopressors now resolved Daptomycin and Zosyn initially, Zosyn replaced with Ertapenem based on on previous sensitivities will be home on levaquin Pt with history of decubitus ulcer poa, history of parapelegia from CVA, eval by wound care and improved (2) Hyperkalemia: JUAREZ with Hyperkalemia poa since resolved treated with Patiromer ,sodium bicarb Nephrology was consulted. 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 Mitral valve repair in 2014 History of first-degree AV block Home medications include carvedilol chronically Valsartan was just initiated in January 2023 Patient apparently not on any antiplatelet therapy Random cortisol level was low but patient is showing improvement as comorbidities are treated (5) CKD (chronic kidney disease) stage 3, GFR 30-59 ml/min: JUAREZ with CKD3 due to sepsis Follows with [facility] (6) History of stroke: Right-sided hemiplegia as a result No acute changes (7) Diabetes mellitus type 2, uncontrolled: Hemoglobin A1c 7% return to home treatment strategies 03/10/23 06:22 Hemoglobin A1c 7.0 H (8) DVT prophylaxis: INR now normalized, resume coumadin (9) Chronic indwelling Velazquez catheter: this is a suprapubic catheter the site clean and dry (10) Chronic pain syndrome: Typically is on fairly high dose of oxycodone 3 times a day will reinstitute oxycodone therapy (11) Diastolic congestive heart failure: (12) Morbid obesity: (13) ANIBAL (obstructive sleep apnea): Total Time Total Time Spent Total Time Spent (In Minutes): it required greater than 30 minutes to prepare this patient for discharge Discharge Plan Discharge Items Patient Disposition: Home - Home Health Services Reason For Visit: RASH Discharge Diagnosis: Lower extremity cellulitis Activity: Resume your previous activity Non-emergency contact: Primary Care Provider Call non-emergency contact if: your symptoms worsen Follow-up/Referrals: Demarcus Nicholson DO [Primary Care Provider] - 03/23/23 1:40 pm Diet: Gluten Free Addtl Attending Provider Instructions: please complete your antibiotics while on antibiotics please take half of your coumadin dosing until your antibiotics are complete please consider continued good wound care of your buttocks wounds if these progress may consider enrollment in the wound care center Pending Studies at Discharge: No Stand-Alone Forms: My [facility] [employer], Smoking Cessation Medications and DC Order Prescriptions: New levofloxacin 750 mg tablet 750 mg PO DAILY 10 Days Qty: 10 0RF Continued allopurinol 300 mg tablet 300 mg PO QAM carvedilol 6.25 mg tablet 6.25 mg PO BID Qty: 60 6RF Rx Instructions: must administer with a meal/food famotidine [Pepcid] 40 mg tablet 40 mg PO QAM insulin aspart U-100 [Novolog FlexPen U-100 Insulin] 100 unit/mL Insulin Pen 0 sliding scale dose SUBCUT TIDM clotrimazole-betamethasone 1-0.05 % cream 1 applic TOPICAL BID PRN (Reason: affected area) warfarin 2.5 mg tablet 5 mg PO QPM cholecalciferol (vitamin D3) [Vitamin D3] 125 mcg (5,000 unit) Tablet 125 mcg PO QAM gabapentin 300 mg capsule 300 mg PO BID triamcinolone acetonide 0.1 % cream 1 applic TOPICAL UD Trulicity 1.5 mg/0.5 mL pen injector 1.5 mg SUBCUT WK Rx Instructions: valsartan 40 mg tablet 40 mg PO QPM Kerendia 20 mg tablet 20 mg PO DAILY Levemir FlexPen 100 unit/mL (3 mL) insulin pen 62 unit SUBCUT BID oxycodone 30 mg tablet 30 mg PO TID Discharge Orders: Discharge Order (Routine); Ordered 03/13/23 Ordered By: Jesse Flynn/Other Patient Handouts: Levofloxacin Oral Tablet, Managing Type 2 Diabetes, Cellulitis Dc Admission Data Admit Date/Time: 03/09/23 11:57 Attending Provider: Jesse Castano Admit Provider: Sofia Monzon Primary Care Provider: Demarcus Nicholson Other Providers: Brant Jack ; Setve Walton ; Devyn Brandon Other Interventions: Discharge Summary Assessment (RN) Last Done: 03/13/23 12:40 Coding Level of Care Code 01544 INP/OBS DISCH >30 MIN Diagnoses Bilateral cellulitis of lower leg L03.116; L03.115 Hyperkalemia E87.5 Supratherapeutic INR R79.1 CAD (coronary atherosclerotic disease) I25.10 CKD (chronic kidney disease) stage 3, GFR 30-59 ml/min N18.3 History of stroke Z86.73 Diabetes mellitus type 2, uncontrolled DVT prophylaxis Z29.9 Chronic indwelling Velazquez catheter Z97.8 Chronic pain syndrome G89.4 Diastolic congestive heart failure I50.30 Morbid obesity E66.01 ANIBAL (obstructive sleep apnea) G47.33
--- NOTE | 2023-03-20 07:46 | Coding Query ---
To promote full compliance with coding requirements relating to patient care, provider participation is requested in all cases of network relay tester uncertainty. Please assist us with the question(s) below: Coding Question(s): The diagnosis below was documented in the 03/10 Nephrology Progress Note, then subsequently fell off all further documentation. Please indicate if it is still a possible diagnosis or ruled out. Physician's Response(s): ATN - (the 03/10 Nephrology Progress Note documents, "JUAREZ attributed to ATN in setting of volume depletion and sepsis with hypotension", then ATN is not documented further) xxx( ) Diagnosed and POA ( ) Diagnosed and not POA ( ) Ruled out ( ) Other (please specify) MTDD
--- NOTE | 2023-03-20 08:00 | Coding Query ---
PRESSURE ULCER DOCUMENTATION To promote full compliance with coding requirements relating to patient care, physician participation is requested in all cases of director china uncertainty. Please assist us with the question(s) below: Please specify the known or suspected type by placing an "X" within the parenthesis (x). Decubitus Ulcer POA is documented beginning on the 03/10 Progress Note. A pressure ulcer of the (PLEASE INSERT SITE): sacrum If possible, please check the box that provides the specific stage of the pressure ulcer ( ) Stage I ( xx) Stage II ( ) Stage III ( ) Stage IV ( ) Unstageable Thank you Neli LANG
== END 2023-03-13 15:29 | disposition home health service (06) | DRG 871 ==
LOC: ED 21:01 → EDINP 21:01 → SUATTDRO 03-09 07:55 → EDINP 03-09 08:27 → 1E 03-09 11:44 → 2S 03-11 20:30

== ENCOUNTER 2023-07-23 14:02 | Inpatient (IN) ==
--- OUTSIDE RECORDS SUMMARY | 2023-07-23 14:11 | External Medical Summary | Summary of Care ---
Author Name Unknown Organization [facility] Address [address] [place] [address] Phone [phone] Care Team Providers Care Business Support Professional Name Role Phone Demarcus Brooks DO Primary Care Provider [phone] Reason for Visit * Reason Comments Follow Up Encounter Details Date Type Department Care Team ([facility] Contact Info) Description 07/12/2023 2:30 PM EST Office Visit Urology, [facility] [address] [facility] [place] [address] Edson Barron MD [address] [facility] [address] [place] [address] Retention of urine*; Recurrent UTI; BPH with obstruction/lower urinary tract symptoms; History of kidney stones Allergies Active Allergy Reactions Criticality Noted Date Comments Sulfamethoxazole-Trimethoprim 2021 documented as of this encounter (statuses as of 07/12/2023) Medications Medication Sig Dispensed Refills Start Date End Date Status famotidine (PEPCID) 40 MG Tablet Take 1 Tablet by mouth in the morning. 0 05/20/2019 Active allopurinol (ZYLOPRIM) 300 MG Tablet Take 1 Tablet by mouth in the morning. 0 Active CPAP every night at bedtime. 0 Active OneTouch Verio In Vitro Strip 4 times a day. Test. 0 09/25/2020 Act omero Easy Touch Pen [place] 31G X 6 MM USE 6 TIMES A DAY WITH INSULINS 0 08/27/2020 Active Clotrimazole-Betame thasone 1-0.05 % External Cream (Lotrisone) Apply topically to affected area. 0 10/03/2020 Active Flunisolide 25 MCG/ACT (0.025%) Nasal Solution Administer 1 [place] into nostril. 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 0 12/18/2020 Active Desitin 40 % External Paste (Zinc Oxide) Apply topically to affected area as needed for Other. Apply to affected areas as needed 0 Active Nystatin 074394 UNIT/GM External Powder (Nystop) Apply powder to affected area 2 times daily 0 02/08/2022 Active NovoLOG FlexPen 100 UNIT/ML Subcutaneous Solution Pen-injector Takes sliding scale insulin with meals 0 05/15/2022 Active Vitamin D3 25 MCG (1000 UT) Oral Capsule Take 1 Capsule by mouth in the morning and 1 Capsule in the evening. 0 06/15/2022 Active Enoxaparin Sodium 150 MG/ML Injection Solution Prefilled Syringe Inject 150 mg under the skin in the morning and 150 mg before bedtime. 0 Active Gabapentin 300 MG Oral Capsule (Neurontin) 0 11/28/2022 Active Ondansetron HCl 4 MG Oral Tablet (Zofran) Take 1 tablet by mouth three times a day as needed 0 11/04/2022 Active Clotrimazole 1 % External Cream (Lotrimin) Apply a small amount to affected area twice a day as directed 0 12/19/2022 Active D 5000 125 MCG (5000 UT) Oral Capsule Take 1 Capsule by mouth in the morning. 0 01/09/2023 Active Valsartan 40 MG Oral Tablet (Diovan) 0 05/19/2023 Active Trulicity 1.5 MG/0.5ML Subcutaneous Solution Pen-injector Inject 1 pen injector subcutaneously once a week. Increase after 4 weeks. 0 03/08/2023 Active Levemir FlexPen 100 UNIT/ML Subcutaneous Solution Pen-injector Inject 60 unit subcutaneously twice a day 0 05/13/2023 Active Simvastatin 20 MG Oral Tablet (Zocor) 0 05/19/2023 Activ e Carvedilol 6.25 MG Oral Tablet (Coreg) Take 1 Tablet by mouth 2 times a day with morning and evening meals. 0 Active Triamcinolone Acetonide 0.1 % External Cream (Aristocort)Indicat ions:Rash and nonspecific skin eruption Apply twice daily to rash until resolved, then when flaring 454 g 1 06/12/2023 Active Sterile Water for Irrigation Irrigation Solution 60 mL catheter-tip syringe x2 monthly, 11 refills Irrigate catheter with 60 mL twice daily as instructed 1000 mL 11 07/03/2023 Active Solifenacin Succinate 10 MG Oral Tablet (VESIcare) Take 1 Tablet by mouth in the morning. 30 Tablet 6 07/12/2023 Active documented as of this encounter (statuses as of 07/12/2023) Active Problems Problem Noted Date Diagnosed Date Suprapubic catheter 01/12/2023 Hematoma of left kidney 10/16/2022 Long QT interval 09/01/2022 CKD (chronic kidney disease), stage II 3 Left renal mass 09/01/2022 HNP (herniated nucleus pulposus), cervical 06/07 Fusion of spine, cervical region 06/07/2022 Medical marijuana use 10/16/2020 Ileostomy status 10/16/2020 Obesity, Class III, BMI 40-49.9 (morbid obesity) 10/06/2020 Paraplegia 10/05/2020 Encounter for surveillance of abnormal nevi 01/2020 Acute hyperkalemia 03/06/2019 Left upper extremity numbness 03/06/2019 Blood type O+ 05/05/2018 Overview: Antibody to antigen E. At Risk for hemolytic transfusion reaction. The patient is a 47 year old male with ABO/RH type of O positive. Results of this antibody identification testing are consistent with the patient's history of Anti-E. Antibody to E-antigen can result from alloimmunization from transfusion, or anti-E can be naturally occurring. These findings place the patient at risk for hemolytic transfusion reaction. Crossmatch compatible C-onpqefb-uueorovy RBCs should be given if transfusion is necessary, approximately 32% of blood donors will be compatible. 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 diff colitis s/p subtotal colectomy and ileostomy History of decubitus ulcer 05/11/2016 Overview: history of sacral decubitus ulcers and calf ulcers (previous wound VAC to sacral ulcer), Mitral valve regurgitation 03/01/2016 Overview: ECHO 02/2016: circular perforation in the anterior leaflet with severe mitral regurgitation Nocturnal hypoxia 03/01/2016 History of pulmonary embolism 02/23/2016 Gout 02/23/2016 Type 2 diabetes mellitus wit h hemoglobin A1c goal of less than 7.0% 06/18/2009 Overview: Per Diabetes Taxonomy. ICD-10 update of inactive term DM type 2 causing renal disease 06/18/2009 Overview: Per Diabetes Taxonomy. 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 BENCH demyelination 01/17/2007 LOC PRIM [id number] 01/31/2003 Hirschsprung's disease 11/19/2001 Pernicious anemia 11/19/2001 Nephrolithiasis Small bowel obstruction documented as of this encounter (statuses as of 07/12/2023) Resolved Problems Problem Noted Date Diagnosed Date Resolved Date Acute blood loss anemia 10/16/2022 03/0 10/2022 Abdominal hematoma 10/16/2022 Acute renal failure superimp osed on stage 3b chronic kidney disease 08/15/2021 09/01/2022 BMI 50.0-59.9, adult 05/11/2016 023 Bacteremia due to Streptococcus pneumoniae 03/01/2016 05/11/2016 Pneumonia 02/22/2016 05/11/2016 ADVANCE DIRECTIVE INFORMATION 01/23/2006 05/11/2016 Overview: No, Advance Directive brochure given to patient at prior appointment. OBESITY, UNSPECIFIED 01/31/2003 010 Overview: Per Obesity Taxonomy Type 2 diabetes mellitus wit h hemoglobin A1c goal of less than 7.0% 06/18/2009 Overview: Per Diabetes Taxonomy. ICD-10 update of inactive term DM type 2 causing renal disease 06/18/2009 Overview: Per Diabetes Taxonomy. documented as of this encounter (statuses as of 07/12/2023) Immunizations Name Administration Dates Next Due COVID-19 mRNA, LNP-s, No Pre serve, 2-Dose Series (Moderna) 11/17/2020,10/27/2020 HEP A - Hepatitis A (Adult > 18 yrs) 01/15/2019, 06/22/2018 Hepatitis B, 20+ yrs 01/15/2019,07/20/2018,06/22 Pneumococcal Polysaccharide PPV23 (Pneumovax) 12/13/2007 SEASONAL INFLUENZA, PF, 6 M & Above, IM , (FLULAVAL or FLUZONE) 05/25/2023 Seasonal Influenza, Split, I IV3, With Preserve, Inj 05/05/2009,08/26/2008,06/20/2007 TDAP (age 11 and older)(Adacel) 03/24/2008 documented as of this encounter Social History Tobacco Use Types Packs/Day Years Used Date Smoking Tobacco: Former Cigarettes 3 10 Q uit: 09/09/2001 Smokeless Tobacco: Never Comments:quit in Aug 2001 Alcohol Use Standard Drinks/Week Comments Not Currently 0 (1 standard drink = 0.6 oz pur e alcohol) Rare Hunger Vital Sign Answer Date Recorded Within the past 12 months, y ou worried that your food would run out before you got the money to buy more. Never true 05/22/20 23 Within the past 12 months, t he food you bought just didn't last and you didn't have money to get more. Never true 05/22/2023 Sex and Gender Information Value Date Recorded Sex Assigned at Not on file Gender Identity Not on file Sexual Orientation Not on file Job Start Date Occupation Industry Not on file Not on file Not on file documented as of this encounter Functional Status Functional Status Response Date of Assess ment Are you deaf or do you have serious difficulty hearing? No 10/16/2022 Are you blind or do you have serious difficulty seeing, even when wearing glasses? No 10/16/2022 Do you have serious difficul ty walking or climbing stairs? (5 years old or older) Yes-post stroke 10/16/2022 Do you have difficulty dress ing or bathing? (5 years old or older) Yes-has aid twice a day 10/16/2022 Because of a physical, menta l, or emotional condition, do you have difficulty doing errands alone such as visiting a doctor s office or shopping? (15 years old or older) Yes 10/16/2022 Cognitive Status Response Date of Assessm ent Because of a physical, menta l, or emotional condition, do you have serious difficulty concentrating, remembering, or making decisions? (5 years old or older) No 10/16/2022 documented as of this encounter Progress Notes * Edson Barron MD - 07/12/2023 2:30 PM EST [id number] PCP: DEMARCUS BROOKS [address] [facility] [address] [place] [address] Hema Grajeda is a 53 year old male, who presents for follow-up of his history of suprapubic tubeand stone disease. Patient's past notes are reviewed. Patient is here with family. They note occasional debris and suprapubic tube, have been irrigating as instructed with sterile water. They deny SPtube malfunction since the patient's last visit. They note occasions of bladder spasm with expulsion of urine around the Velazquez catheter. They deny leakage per urethra. Past imaging studies are reviewed including CT scan status post ablation of renal mass. Urolithiasis: Patient is being seen for stone disease today. Problem has been present for years.. They have been hospitalized for stone in the past. and They have previously required surgery for stone management. Severity is moderate Problem is getting better. Patient has had the following imaging done: CT scan. In the past they have had ureteral stent placement and ureteroscopy with laser lithotripsy to manage their stones. revious evaluation was done by urologist. Urinary incontinence: Managed with SPT. Placed with IR Jan 2023 secondary to obesity. History of orchitis. Left renal mass: S/p ablation CT scan 2022: IMPRESSION 1. Interval decrease in the size of left renal subcapsular hematoma and perinephric hematoma. 2. Treated left renal lesion is grossly stable from 10/15/2022 CT and minimally smaller from 04/13/2022 CT. No postcontrast enhancement. 3. Hepatosplenomegaly. Hepatic steatosis. 4. Additional findings described above. Current Outpatient Medications Medication Sig Dispense Refill famotidine (PEPCID) 40 MG Tablet Take 1 Tablet by mouth in the morning. allopurinol (ZYLOPRIM) 300 MG Tablet Take 1 Tablet by mouth in the morning. CPAP every night at bedtime. OneTouch Verio In Vitro Strip 4 times a day. Test. Easy Touch Pen [place] 31G X 6 MM USE 6 TIMES A DAY WITH INSULINS Clotrimazole-Betamethasone 1-0.05 % External Cream (Lotrisone) Apply topically to affected area. Flunisolide 25 MCG/ACT (0.025%) Nasal Solution Administer 1 [place] into nostril. (Patient not taking: Reported on 02/15/2023) Warfarin Sodium 2.5 MG Oral Tablet Take 2.5 mg (1 tablet) on Monday and Monday, take 5 mg (2 tablets) all other days or as directed by anticoagulation clinic 150 Tab 3 oxyCODONE HCl 30 MG Oral Tablet (Roxicodone) Take 1 Tablet by mouth 3 times a day as needed. Desitin 40 % External Paste (Zinc Oxide) Apply topically to affected area as needed for Other. Apply to affected areas as needed Nystatin 501802 UNIT/GM External Powder (Nystop) Apply powder to affected area 2 times daily NovoLOG FlexPen 100 UNIT/ML Subcutaneous Solution Pen-injector Takes sliding scale insulin with meals Vitamin D3 25 MCG (1000 UT) Oral Capsule Take 1 Capsule by mouth in the morning and 1 Capsule in the evening. (Patient not taking: Reported on 01/30/2023) Enoxaparin Sodium 150 MG/ML Injection Solution Prefilled Syringe Inject 150 mg under the skin in the morning and 150 mg before bedtime. Gabapentin 300 MG Oral Capsule (Neurontin) Ondansetron HCl 4 MG Oral Tablet (Zofran) Take 1 tablet by mouth three times a day as needed Clotrimazole 1 % External Cream (Lotrimin) Apply a small amount to affected area twice a day as directed D 5000 125 MCG (5000 UT) Oral Capsule Take 1 Capsule by mouth in the morning. Valsartan 40 MG Oral Tablet (Diovan) Trulicity 1.5 MG/0.5ML Subcutaneous Solution Pen-injector Inject 1 pen injector subcutaneously oncea week. Increase after 4 weeks. Levemir FlexPen 100 UNIT/ML Subcutaneous Solution Pen-injector Inject 60 unit subcutaneously twice a day Simvastatin 20 MG Oral Tablet (Zocor) Carvedilol 6.25 MG Oral Tablet (Coreg) Take 1 Tablet by mouth 2 times a day with morning and evening meals. Triamcinolone Acetonide 0.1 % External Cream (Aristocort) Apply twice daily to rash until resolved,then when flaring 454 g 1 Sterile Water for Irrigation Irrigation Solution 60 mL catheter-tip syringe x2 monthly, 11 refills Irrigate catheter with 60 mL twice daily as instructed 1000 mL 11 No current facility-administered medications for this visit. Review of patient's allergies indicates: Allergen Reactions Sulfamethoxazole-Trimethoprim Social History: Social History Tobacco Use Smoking status: Former Packs/day: 3.00 Years: 10.00 Additional pack years: 0.00 Total pack years: 30.00 Types: Cigarettes Quit date: 09/09/2001 Years since quittin.8 Smokeless tobacco: Never Tobacco comments: quit in Aug 2001 Substance Use Topics Alcohol use: Not Currently Comment: Rare Vaping/E-Cigarette Use Vaping/E-Cigarette Use Never User Passive Exposure No Counseling Given? No Vaping/E-Cigarette Substances Nicotine No Other No Flavoring No THC Yes Cannabidiol (CBD) No Vaping/E-Cigarette Devices Disposable No Pre-filled or Refillable Cartridge No Refillable Tank No Pre-filled Pod Yes Family History Problem Relation Age of Onset Dementia Mother Diabetes Father now 59 Heart Disorder Father CAD No Known Problems Brother Past Surgical History: Procedure Laterality Date ARTHRODESIS, ANT INTERBODY, BELOW C-2 N/A 06/07/2022 ARTHRODESIS, ANT INTERBODY, BELOW C-2 performed by Jamila Khan MD at [facility] CARDIAC CATH SCANNED RESULT 11/02/07 20% stenosis LAD, with preserved LV function, [facility] COLONOSCOPY, DIAGNOSTIC (RECTUM) N/A 03/28/2018 COLONOSCOPY FLEXIBLE PROXIMAL DIAGNOSTIC performed by Kel Willoughby DO at ENDOSCOPY [facility] COLOSTOMY/BIOPSIES hirschprung's disease CORONARY ANGIOGRAPHY W/RIGHT+LEFT CATH Bilateral 05/11/2016 CORONARY ANGIOGRAPHY W/RIGHT+LEFT CATH performed by Temi Haro MD at CARDIAC LAB[facility] CYSTO/URETERO W/LITHOTRIPSY Left 09/06/2022 CYSTOURETHROSCOPY URETEROSCOPY WITH LITHOTRIPSY AND STENT INSERTION performed [facility]zaida [facility]OS[facility] 06/04/2008 EGD, FLEXIBLE, DIAGNOSTIC N/A 03/27/2018 ESOPHAGOGASTRODUODENOSCOPY (EGD), FLEXIBLE, TRANSORAL, DIAGNOSTIC performed by Liseth Guardado MD at ENDOSCOPY [facility] EGD, FLEXIBLE, DIAGNOSTIC N/A 04/04/2018 ESOPHAGOGASTRODUODENOSCOPY (EGD), FLEXIBLE, TRANSORAL, DIAGNOSTIC performed by Roya Leary MD at ENDOSCOPY [facility] EGD, FLEXIBLE, DIAGNOSTIC 02/04/2019 gastritis/[facility] IR BIOPSY 10/11/2022 IR BIOPSY 11/09/2015 IR CANCER ABLATION 10/11/2022 IR GENITORINARY NEPHRO/CYSTO/URETERAL 01/12/2023 DEREK FLEX SIGMOID DIAGNOSITIC N/A 04/03/2018 SIGMOIDOSCOPY FLEXIBLE DIAGNOSTIC performed by Vladislav Weathers MD at ENDOSCOPY [facility] DEREK FLEX SIGMOID DIAGNOSITIC N/A 04/04/2018 SIGMOIDOSCOPY FLEXIBLE DIAGNOSTIC performed by Roya Leary MD at ENDOSCOPY [facility] KNEE ARTHROSCOPY/SURGERY elft 2001,rt 2003 REMOVAL OF COLON/PROCTECTOMY N/A 10/06/2020 COLECTOMY TOTAL WITH PROCTECTOMY AND ILEOSTOMY performed by Jeronimo Givens DO at [facility] REPLACE MITRAL VALVE W/BYPASS N/A 06/20/2016 REPLACEMENT MITRAL VALVE performed by Mike Holloway MD at [facility] TENDON TRANSPLANT/TRANSFER THIGH, MULTIPLE 2001 Dr Tompkins and he had several procedures and manipulations under anesthesia US ABDOMEN LIMITED 12/24/07 normal VASCULAR SURGERY PROCEDURE NEC N/A 02/15/2023 UNLISTED PROCEDURE VASCULAR SURGERY performed by Teddy Carrera DO at OR [facility] Past Medical History: Diagnosis Date Allergic rhinitis Calculus of kidney Depression Diabetic nephropathy (HCC) DM type 2, goal A1c below 7 10/26 Endocarditis 09/22 IVDU vavle replacement and CABG 2013 Gout Hepatitis C Hirschsprung's disease and other congenital functional disorders of colon History of pulmonary embolism Obesity Patient Active Problem List Diagnosis Code Hirschsprung's disease Q43.1 Pernicious anemia D51.0 LOC PRIM [id number] M17.10 TOOL MAKER BENCH demyelination (HCC) G37.9 Incontinence of feces R15.9 ATTN DEFIC NONHYPERACT F98.8 Nephrolithiasis N20.0 Cervicalgia M54.2 Type 2 diabetes mellitus with hemoglobin A1c goal of less than 7.0% (HCC) E11.9 DM type 2 causing renal disease (HCC) E11.29 History of pulmonary embolism Z86.711 Gout M10.9 Mitral valve regurgitation I34.0 Nocturnal hypoxia G47.34 History of endocarditis Z86.79 CAD (coronary artery disease), grayling coronary artery I25.10 ANIBAL treated with BiPAP G47.33 Cerebellar abscess G06.0 History of DVT (deep vein thrombosis) Z86.718 History of drug abuse ([facility]) F19.11 History of Clostridium difficile colitis Z86.19 History of decubitus ulcer Z87.2 Cerebral septic emboli I76, I66.9 S/P MVR (mitral valve repair) Z98.890 GI bleeding K92.2 Colostomy status ([facility]) Z93.3 Blood type O+ Z67.40 Acute hyperkalemia E87.5 Left upper extremity numbness R20.0 Encounter for surveillance of abnormal nevi Z13.89 Paraplegia ([facility]) G82.20 Obesity, Class III, BMI 40-49.9 (morbid obesity) ([facility]) E66.01 Medical marijuana use Z79.899 Ileostomy status ([facility]) Z93.2 Small bowel obstruction ([facility]) K56.609 HNP (herniated nucleus pulposus), cervical M50.20 Fusion of spine, cervical region M43.22 Long QT interval R94.31 CKD (chronic kidney disease), stage II N18.2 Left renal mass N28.89 Hematoma of left kidney S37.012A Suprapubic catheter ([facility]) Z93.59 Constitutional: (-) fever ENT: (-) stridor Abdominal/GI: (+) diarrhea and (+) colostomy Male : see HPI Musculoskeletal: (+) muscle weakness Neurology: (+) generalized weakness Psychiatry: (-) negative: no depression or anxiety Physical Exam Constitutional: Appearance: He is obese. He is not ill-appearing or toxic-appearing. Comments: Motorized wheelchair HENT: Head: Normocephalic. Right Ear: External ear normal. Left Ear: External ear normal. Nose: Nose normal. Mouth/Throat: Mouth: Mucous membranes are moist. Eyes: Extraocular Movements: Extraocular movements intact. Cardiovascular: Pulses: Normal pulses. Pulmonary: Effort: Respiratory distress (Pickwickian) present. Abdominal: General: There is no distension. Comments: SPT c/d/i Skin: Coloration: Skin is not pale. Neurological: Mental Status: He is oriented to person, place, and time. Motor: Weakness present. Gait: Gait abnormal. Psychiatric: Behavior: Behavior normal. Impression/Plan: 53-year-old male with indwelling suprapubic tube, history of renal mass status post ablation. Patient has an upcoming CT scan ordered in September 2023 for follow-up of his renal lesion, will see after this. Prescription for solifenacin provided for the patient's bladder spasms. May help with loose stool via colostomy as well. Possible side effects reviewed. Long-term management of suprapubic tube and neurogenic bladder are reviewed. Patient can contact me as needed with any other urologicissues in the interim. Edson Barron MD 12:30 PM 07/12/2023 documented in this encounter Nursing Notes * Alice Flores LPN - 07/12/2023 2:22 PM EST Pt presents in office for follow up with Dr Barron Patient using distilled water for spt flushing due to inability to fill rx for sterile water. documented in this encounter Plan of Treatment Upcoming Encounters Date Type Department Care Team (Late st Contact Info) Description 07/20/2023 12:30 PM EST Office Visit Gastroenterology, [facility] [address] [facility] [place] [address] Janet Harrington CRNP [address] [facility] [address] 09/21/2023 12:30 PM EST Imaging Radiology [facility] 1st Floor, [place] [address] [facility] [place] [address] 10/10/2023 1:30 PM EST Office Visit Urology, [facility] [address] [facility] [place] [address] Edson Barron MD [address] [facility] [address] [place] [address] 11/22/2023 1:00 PM EDT Appointment Radiology, [address] [place] [address] 11/22/2023 1:45 PM EDT Office Visit [facility], [place] [address] [facility] [place] [address] Betzaida An MD [address] [facility] [place] [address] 03/11/2024 1:20 PM EDT Office Visit Dermatology [address] [place] [address] Arielle Lorenzana PA-C [address] [place] [address] [place] [address] Health Maintenance Due Date Last Done Comments Depression Screening 1984 Diabetic Foot Exam 03/30/2010 03/30/2009, 12/13/2007 Diabetic Eye Exam 08/28/2010 08/28/2009, , 03/30/2009, Additional history exists Cologuard 2017 Sigmoidoscopy 2017 Fecal Occult Blood Test 11/18/2017 11/18/2016, 07/31 Pneumococcal Vaccine: Pediatrics (0 to 5 Years) and At-Risk Patients (6 to 64 Years) (2 - PCV) 11/18/2017 11/18/2016, 12/13/2007 DTaP,Tdap,and Td Vaccines (2 - Td or Tdap) 03/24/2018 03/24/2008 Zoster Vaccines (1 of 2) 2022 COVID-19 Vaccine (3 - season) 2023 11/17/2020, 10/27/2020 HbA1c 07/01/2023 12/29/2022, 08/21, 05/02/2022, Additional history exists Albumin/Creatinine Ratio 12/30/2023 023, 10/19/2022, 08/19/2019, Additional history exists GFR 03/23/2024 03/23/2023, 12/19, 11/15/2022, Additional history exists Colonoscopy 03/28/2028 03/28/2018, 11/13/2007 Colorectal Cancer Screening 03/28/2028 Hepatitis B Completed 01/15/2019, 06/23, 06/22/2018 Influenza Vaccine (FLU shot) Completed 12/2022, 05/25/2017, 05/18/2016, Additional history exists GARDASIL-HPV IMMUNIZATION SERIES Aged Out No longer eligible based on patient's age to complete this topic MENINGOCOCCAL (MENACTRA/MENVEO) Aged Out No longer eligible based on patient's age to complete this topic documented as of this encounter Medical Devices Implanted Type Area Cloth Shrinking Supervisor Device Identifier Shelf Expiration Date Model / Serial / Lot Screw Lorenzo 4x14mm Self Ca - [id number] Implanted:Qty: 4 on 06/07/2022 by Jamila Khan MD at [facility] [place] LORI : SPINE [id number] / / documented as of this encounter Visit Diagnoses Diagnosis Retention of urine- Primary Retention of urine, unspecified Recurrent UTI Urinary tract infection, site not specified BPH with obstruction/lower urinary tract symptoms Hypertrophy of prostate with urinary obstruction and other lower urinary tract symptoms (LUTS) History of kidney stones Personal history of urinary calculi documented in this encounter Advance Directives Latest Code Status on File Code Status Date Activated Date Inactivated Comments Full Code 10/16/2022 7:04 AM 10/21/2022 8:30 PM This o rder reflects the patients wishes and were consensually agreed upon. Question Answer Comments Discussion of Advance Directives occurred with: Patient Does the patient have a Living Will? No Does the patient have Health Care Power of Investigator Vice? No Code Status History Code Status Date Activated Date Inactivated Comments Full Code 09/06/2022 3:01 PM 09/07/2022 4:43 PM Question Answer Comments Discussion of Advance Directives occurred with: Not Discussed due to patient's condition Full Code 06/07/2022 1:03 PM 06/08/2022 11:21 PM Th is order reflects the patients wishes and were consensually agreed upon. Question Answer Comments Discussion of Advance Directives occurred with: Patient Full Code 06/07/2022 10:05 AM 06/07/2022 1:03 PM Question Answer Comments Discussion of Advance Directives occurred with: Not Discussed due to patient's condition Full Code 08/14/2021 2:07 PM 08/17/2021 10:37 PM Th is order reflects the patients wishes and were consensually agreed upon. Question Answer Comments Discussion of Advance Directives occurred with: Patient Healthcare Agents on File Name Relationship Healthcare Agent [facility] Communication David Grajeda Adult Child Health Care Agent Care Teams Business Support Professional Relationship Specialty Start Date End Date Demarcus Brooks DO [address] [place] [address] [place] [address] PCP - General Family Medicine 04/22/16 documented as of this encounter
--- OUTSIDE RECORDS SUMMARY | 2023-07-23 14:11 | External Medical Summary | Summary of Care ---
Author Name Unknown Organization [facility] Address [address] [place] [address] Phone [phone] Care Team Providers Care Sales Representative [employer] Name Role Phone Demarcus Nicholson DO Primary Care Provider [phone] Reason for Visit * Reason Comments Follow Up Encounter Details Date Type Department Care Team (Late st Contact Info) Description 07/20/2023 12:30 PM EST Telemedicine Gastroenterology, [facility] [address] [place] [address] Janet Harrington CRNP [address] [place] [address] Fatty liver*; DODSON (nonalcoholic steatohepatitis); Ileostomy status (HCC) Allergies Active Allergy Reactions Criticality Noted Date Comments Sulfamethoxazole-Trimethoprim 2021 documented as of this encounter (statuses as of 07/21/2023) Medications Medication Sig Dispensed Refills Start Date [...] 0 09/25/2020 Act omero Easy Touch Pen [place] 31G X 6 MM USE 6 TIMES A DAY WITH INSULINS 0 08/27/2020 Active Clotrimazole-Betame thasone 1-0.05 % External Cream (Lotrisone) Apply topically to affected area. 0 10/03/2020 Active Flunisolide 25 MCG/ACT (0.025%) Nasal Solution Administer 1 [place] into nostril. 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 30 Tablet 6 07/12/2023 Active documented as of this encounter (statuses as of 07/21/2023) Active Problems Problem Noted Date Diagnosed Date [...] risk for hemolytic transfusion reaction. Crossmatch compatible [id number] RBCs should be given if transfusion is necessary, approximately 32% of blood donors will be compatible. 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 01/17/2007 LOC PRIM [id number] 01/31/2003 Hirschsprung's disease 11/19/2001 Pernicious anemia 11/19/2001 Nephrolithiasis Small bowel obstruction documented as of this encounter (statuses as of 07/21/2023) Resolved Problems Problem Noted Date Diagnosed Date [...] as of this encounter (statuses as of 07/21/2023) Immunizations Name Administration Dates Next Due COVID-19 mRNA, LNP-s, No Pre serve, 2-Dose Series (Moderna) 11/17/2020,10/27/2020 HEP A - Hepatitis A (Adult > 18 yrs) 01/15/2019, 06/22/2018 Hepatitis B, 20+ yrs 01/15/2019,07/20/2018,06/22 Pneumococcal Polysaccharide PPV23 (Pneumovax) 12/13/2007 SEASONAL INFLUENZA, PF, 6 M & Above, IM , (FLULAVAL or FLUZONE) 05/25/2023 Seasonal Influenza, Split, I IV3, With Preserve, Inj 05/05/2009,08/26/2008,06/20/2007,07/07,07/24/2003 TDAP (age 11 and older)(Adacel) 03/24/2008 documented [...] as of this encounter Progress Notes * Janet Harrington CRNP - 07/20/2023 12:33 PM EST DATE OF SERVICE: 07/20/23 REFERRING PHYSICIAN: Demarcus Nicholson, CC: F/U DODSON HPI: 05/23/2018 - Hema Grajeda is a 48 year old male, w complicated past medical hx including Hirschprung disease, poorly controlled DM II, neuropathy, gout, hx of PE, DVT, CVA, endocarditis, mitral valve replacement, colostomy creation per pt due to bowel obstruction, and HCV genotype 1a, F1/2 Fibrosis score treated successfully w Harvoni x3 months last year, recent ostomy bleeding w/o obvious source of GI bleeding found despite flex sig, EGD, VCE evals. He is here for elevated LFTs: Tbili 0.8, AST 108, ALT 64, AP 159. In reviewing his chart from [facility], his LFTs were also elevated since last year. In fact numbers were higher. CT abd/pelvis w IV contrast 04/01/18 showed signs of fatty liver. Pt is wheelchair bound since his CVA, has residual R sided weakness. He denies any jaundice, CP, SOB, abd pain, n/v symptoms. His ostomy puts out mostly loose stools but he hasn't noticed any more bloody output. He has chronic bilateral LE swelling. Pt denies any chronic uses of APAP, new meds or antibiotics. + social ETOH use. Hx of illicit drugs but none for many years. 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 Denies family hx of autoimmune or hereditary liver diseases. He mentioned having liver biopsies twice but I don't have these records. 06/22/18 - Pt here for f/u elevated LFTs. Previous serologies for autoimmune, hereditary and acute hepatitis negative. HCV antibody + but HCV RNA negative. Fibrosure F0-F1. He is w/o complaints today.Denies any fever, chills, CP, SOB, abd pain, n/v. Ostomy output still about same frequency, stools semi soft. 01/15/19 - Pt was admitted at [facility] 12/18-12/22/18 for sepsis, bilateral LE cellulitis, JUAREZ. Received Doxycycline then converted to Keflex for the cellulitis. He returned to [facility] ED on 01/14 w c/o cough, SOB, CXR w/o acute findings. He was found to have UTI, treated w Ceftriaxone. He is still having a little cough but breathing better. He denies any CP, abd pain, n/v. Soft brown stool still, from RLQ ileostomy. He notice on LLQ area, from his previous ostomy, there's sometimes brownish mucoid discharge, non tender, he's concerned hole isn't closing. Noted most recent LFTs at [facility]: Tbili 1.2, AST 103, ALT 90, AP 166. 04/17/19 - Since last seen in clinic pt was admitted at [facility] 02/03- for GI bleeding, elevated INR (6 on admission). EGD performed on 02/04/19 showed non bleeding gastric ulcer w/o stigmata of bleeding. Gastritis w/o Hpylori on bx. He was placed on Protonix 40mg BID and Carafate 1g QID. Currently only taking Protonix 40mg daily. Denies any more blood noted through his ostomy. Also no abd pain, n/v. He was seen by Dr. Givens (Colorectal surgery) on 02/13/19 for mucous fistula management - no surgery recommended at this time. Of note also admitted at [facility] 02/09-02/12 for L arm weakness and possibly also slurring of speech. MRI brain w/o acute findings of stroke. Followed by Neurology while inpt buthasn't followed up since DC'd. He is back on Coumadin now. 09/04/19: Pt was admitted at [facility] 08/07 to 08/09 after noticing mucoid and stool discharge from hisrectum and abdominal fistula area. CT w/o obstruction but suspected symptoms related to impaction. He had since followed up w Colorectal Surgery, no surgical intervention, recommended PRN enema irrigation if stool discharge present again. He is denying any more symptom recurrence. Only some mucus from abd fistula & rectum in small amt. Watery stool from ileostomy. He previously had taking Imodium to help form up stool but had stopped. Labs from [facility] reviewed. LFTs normal then in Jul 2019 Telemedicine visit 12/18/19: After connecting through [facility], patient was verified with two unique identifiers. Patient (or authorized legal pest control service representative) was then informed that this was a Telemedicine visit and that the exam was being conducted confidentially over secure lines. My office doorwas closed. No one else was in the room with me. Patient acknowledged consent and understanding of privacy and security of the Telemedicine visit and gave permission to have a telemedicine presenter stay in the room in order to assist with the history and to conduct the exam as needed. I informed the patient that I have reviewed their record in [facility] and presented the opportunity for them to ask any questions regarding the visit today. The patient agreed to participate. Pt denies any more diarrhea through ostomy. Only loose stools rarely. No blood or black tarry stools. Also denies any discharge from abd fistula. Denies abd pain, n/v. 02/24/20: Pt reports went to ED a few weeks ago for dehydration. Cr up to 2.3 but normalized after recheck. Has an established [employer] in [place]. Ostomy output loose watery in morning then formed up in afternoon. He denies abd pain, n/v. No blood or dark tarry stools per ostomy 06/22/20: Pt unsure why appt today was made. When last seen I recommended 6 month's f/u. He is denying any GI complaints today. Last month had UTI, admitted at [facility]. Still having dysuria and had submitted UA, he will f/u w his urologist. He denies any abd pain, n/v. Does have occasional mucous rectal discharge. He is having semi formed stools from his ostomy. No blood seen. 12/24/20: Pt had takedown of mucous fistula with completion colectomy and proctectomy in September by Dr. Givens (Colorectal Surgery). Had SBO last month which resolved w conservative management. Stools loose via ileostomy on RLQ area. Denies blood in stools. He is noticing increased rectal leakage which is tannish-brown in color and foul smelling recently. No rectal bleeding. 06/25/21: Pt reports having re-opening of mid lower abd wound. Some mucus like discharge. Also noticed some more discharge per rectum. Previously managed well with Anusol prescribed by Dr. Mcgarry. He need refill. No abd pain, n/v, blood per ostomy. 01/07/22: Pt is doing well denies abd pain, n/v, heartburn/acid reflux. Ostomy is putting out brownstools. 01/30/23: Pt had ACDF cervical spine for LUE weakness earlier this year. Also L renal mass microwave ablation 09/2022. Currently has a suprapubic catheter in place. He has occasional RUQ abd discomfort wo n/v. Ostomy stool output wo change. No blood per ostomy. Attempting to follow keto diet. Lost 22 lbs since 3 months ago. Telephonic visit 07/20/23 (Telemedicine visit unable to be conducted due to poor signal): After connecting to the patient via telephone, the patient was identified by name and date of . Patient was then informed that this was a telephone call only visit. The patient agreed to participate. Visit Disposition: Routine follow-up Total call duration was 20 minutes. Denies any fever, chills. Was having nausea, and vomiting few days ago but now resolved. Having rectal leakage but no bleeding. Hasn't been having discharge in the last 3-4 days. Stools loose in ostomy but no blood. Past Medical History: Diagnosis Date Allergic rhinitis Calculus of kidney Depression Diabetic nephropathy (HCC) DM type 2, goal A1c below 7 10/26 Endocarditis 09/22 IVDU vavle replacement and CABG 2013 Gout Hepatitis C Hirschsprung's disease and other congenital functional disorders of colon History of pulmonary embolism Obesity Family History Problem Relation Age of Onset Diabetes Father now 59 Heart Disorder Father CAD Past Surgical History: Procedure Laterality Date CARDIAC CATH SCANNED RESULT 11/02/07 20% stenosis LAD, with preserved LV function, [facility] COLONOSCOPY, DIAGNOSTIC (RECTUM) N/A 03/28/2018 COLONOSCOPY FLEXIBLE PROXIMAL DIAGNOSTIC performed by Kel Willoughby DO at ENDOSCOPY [facility] COLOSTOMY/BIOPSIES hirschprung's disease CORONARY ANGIOGRAPHY W/RIGHT+LEFT CATH Bilateral 05/11/2016 CORONARY ANGIOGRAPHY W/RIGHT+LEFT CATH performed by Temi Haro MD at CARDIAC LABS [facility] CYSTOSCOPY 06/04/2008 EGD, FLEXIBLE, DIAGNOSTIC N/A 03/27/2018 ESOPHAGOGASTRODUODENOSCOPY (EGD), FLEXIBLE, TRANSORAL, DIAGNOSTIC performed by Liseth Guardado MD at ENDOSCOPY [facility] EGD, FLEXIBLE, DIAGNOSTIC N/A 04/04/2018 ESOPHAGOGASTRODUODENOSCOPY (EGD), FLEXIBLE, TRANSORAL, DIAGNOSTIC performed by Roya Leary MD at ENDOSCOPY [facility] EGD, FLEXIBLE, DIAGNOSTIC 02/04/2019 gastritis/[facility] DEREK FLEX SIGMOID DIAGNOSITIC N/A 04/03/2018 SIGMOIDOSCOPY FLEXIBLE DIAGNOSTIC performed by Vladislav Weathers MD at ENDOSCOPY [facility] DEREK FLEX SIGMOID DIAGNOSITIC N/A 04/04/2018 SIGMOIDOSCOPY FLEXIBLE DIAGNOSTIC performed by Roya Leary MD at ENDOSCOPY [facility] KNEE ARTHROSCOPY/SURGERY elft 2001,rt 2003 REPLACE MITRAL VALVE W/BYPASS N/A 06/20/2016 REPLACEMENT MITRAL VALVE performed by Mike Holloway MD at OR [facility] TENDON TRANSPLANT/TRANSFER THIGH, MULTIPLE 2001 Dr Tompkins and he had several procedures and manipulations under anesthesia US ABDOMEN LIMITED 12/24/07 normal Social History Tobacco Use Smoking status: Former Smoker Packs/day: 3.00 Years: 10.00 Pack years: 30.00 Types: Cigarettes Last attempt to quit: 09/09/2001 Years since quittin.2 Smokeless tobacco: Never Used Tobacco comment: quit in Aug 2001 Substance Use Topics Alcohol use: Yes Comment: social Drug use: No Review of patient's allergies indicates: No Known Allergies Current Outpatient Medications Medication Sig Dispense Refill famotidine (PEPCID) 40 MG Tablet Take 1 Tablet by mouth in the morning. allopurinol (ZYLOPRIM) 300 MG Tablet Take 1 Tablet by mouth in the morning. CPAP every night at bedtime. OneTouch Verio In Vitro Strip 4 times a day. Test. Easy Touch Pen [place] 31G X 6 MM USE 6 TIMES A DAY WITH INSULINS Clotrimazole-Betamethasone 1-0.05 % External Cream (Lotrisone) Apply topically to affected area. Warfarin Sodium 2.5 MG Oral Tablet Take [...] Apply to affected areas as needed Nystatin 338085 UNIT/GM External Powder (Nystop) Apply powder to affected area 2 times daily NovoLOG FlexPen 100 UNIT/ML Subcutaneous Solution Pen-injector Takes sliding scale insulin with meals Vitamin D3 25 MCG (1000 UT) Oral Capsule Take 1 Capsule by mouth in the morning and 1 Capsule in the evening. Gabapentin 300 MG Oral Capsule (Neurontin) Ondansetron [...] until resolved,then when flaring 454 g 1 Solifenacin Succinate 10 MG Oral Tablet (VESIcare) Take 1 Tablet by mouth in the morning. 30 Tablet6 Flunisolide 25 MCG/ACT (0.025%) Nasal Solution Administer 1 [place] into nostril. (Patient not taking: Reported on 02/15/2023) Enoxaparin Sodium 150 MG/ML Injection Solution Prefilled Syringe Inject 150 mg under the skin in the morning and 150 mg before bedtime. (Patient not taking: Reported on 07/20/2023) Sterile Water for Irrigation Irrigation Solution 60 mL catheter-tip syringe x2 monthly, 11 refills Irrigate catheter with 60 mL twice daily as instructed (Patient not taking: Reported on 07/20/2023)1000 mL 11 No current facility-administered medications for this visit. Review of Systems: See HPI above; rest of systems review unremarkable. EXAM: Visit conducted via telephone call Pt's speech w normal tone/pitch; he is answering questions and verbalizing appropriately ASSESSMENT AND PLAN: Hema Grajeda is a 51 year old male w: 1. DODSON. LFTs normal. Hx of HCV genotype 1a, F1/2 Fibrosis, successfully treated w Harvoni x 3 months by [facility]. His recent CT abd/pelvis w IV contrast showed signs of fatty liver. Serologies negative for acute hepatitis, autoimmune/hereditary liver diseases. Fibosure F0-F1. - We had discussed importance of dietary changes to help promote healthy weight loss. Encourage good control of blood sugars, TG levels. - Completed Hep A and B immunizations - Continue avoidance of ETOH, illicit drugs, APAP no more than 2g per day if needed. Recommend him to avoid marijuana as it may cause increased fibrosis of liver. - Discussed possible use of Vit E but may increase risk of prostate ca in male thus will defer for now. - We discussed possible repeat liver bx though w him being on Coumadin and hx of CVA it may be difficult to coordinate. And he had Fibrosure in 05/2018. Decide to defer repeat liver bx at this time. - Repeat LFTs - US yearly last done 12/2022 at [facility] (pt may have had CT liver within this year, we will try to obtain records from [facility]; if present will cancel US) 2. Ileostomy status. S/P take down of mucous fistula with completion colectomy and proctectomy, 09/2020; SBO 10/2020, resolved w conservative management. - May take fiber to bulk up stools RETURN TO CLINIC: 6 months or sooner prn. Anaya Sarkar [facility] Gastroenterology, [facility]. documented in this encounter Nursing Notes * Edith Hogan RN - 07/20/2023 12:10 PM EST Pt identified by name and date of . Verified pt not currently driving. Verified pt currently in the state of [place]. Chart updated with patient after review of social history and allergies. Med reconciliation completed. Pt verbalizes that they have received their telehealth link via email and planto utilize an electronic device/set up with video capability and has appropriate/updated software for video visit. Pt walked through the steps of connecting for video visit and verbalizes an understanding of how to enter the virtual waiting room. Offers no further questions and will await appointment time for provider connection. Will contact our office should they have any issues or questions inregards to their visit. documented in this encounter Plan of Treatment Upcoming Encounters Date Type Department Care Team (Late st Contact Info) Description 09/21/2023 12:30 PM EST Imaging Radiology [facility] 1st Floor, [place] [address] [facility] [place] [address] 10/10/2023 1:30 PM EST Office Visit Urology, [facility] [address] [facility] [place] [address] Edson Barron MD [address] [facility] [address] [place] [address] 11/22/2023 1:00 PM EDT Appointment Radiology, [place] [address] [place] [id number] 11/22/2023 1:45 PM EDT Office Visit Urology, [place] [address] [place] [address] Betzaida An MD [address] [place] [address] 03/11/2024 1:20 PM EDT Office Visit Dermatology [address] [place] [address] Arielle Lorenzana PA-C [address] [place] [address] [place] [address] Scheduled Orders Name Type Priority Associated Diagnoses Orde r Schedule HEPATIC FUNCTION PANEL Lab Routine Fatty liver Ordered: 07/20/2023 Health Maintenance Due Date Last Done Comments [...] this encounter Medical Devices Implanted Type [employer] Device Identifier Shelf Expiration Date Model / Serial / Lot Screw Lorenzo 4x14mm Self Ca - [id number] Implanted:Qty: 4 on 06/07/2022 by Jamila Khan MD at OR [facility] LORI : SPINE 8801-04 [id number] / / documented as of this encounter Visit Diagnoses Diagnosis Fatty liver- Primary Other chronic nonalcoholic liver disease DODSON (nonalcoholic steatohepatitis) Other chronic nonalcoholic liver disease Ileostomy status (HCC) Ileostomy status documented in this encounter Advance Directives Latest [...] the patient have Health Care Power of [employer]? No Code Status History Code Status Date [...] Agents on File Name Relationship Healthcare Agent [facility] Communication David Grajeda Adult Child Health Care Agent Care Teams Sales Representative [employer] Relationship Specialty Start Date End Date Demarcus Nicholson DO [address] [facility] [address] [place] [address] PCP - General Family Medicine 04/22/16 documented as of this encounter
--- OUTSIDE RECORDS SUMMARY | 2023-07-23 14:11 | External Medical Summary | Summary of Care ---
Author Name Unknown Organization [facility] Address [address] [place] [address] Phone [phone] Care Team Providers Care Building Custodian Name Role Phone Demarcus Nicholson DO Primary Care Provider [phone] Reason for Visit * Reason Comments Follow Up Encounter Details Date Type Department Care Team (Late st Contact Info) Description 07/20/2023 12:30 PM EST Telemedicine Gastroenterology, [facility] [address] [place] [address] Janet Harrington CRNP [address] [place] [address] Fatty liver*; DODSON (nonalcoholic steatohepatitis); Ileostomy status (HCC) Allergies Active Allergy Reactions Criticality Noted Date Comments Sulfamethoxazole-Trimethoprim 2021 documented as of this encounter (statuses as of 07/20/2023) Medications Medication Sig Dispensed Refills Start Date [...] 0 09/25/2020 Act omero Easy Touch Pen [place] 31G X 6 MM USE 6 TIMES A DAY WITH INSULINS 0 08/27/2020 Active Clotrimazole-Betame thasone 1-0.05 % External Cream (Lotrisone) Apply topically to affected area. 0 10/03/2020 Active Flunisolide 25 MCG/ACT (0.025%) Nasal Solution Administer 1 [place] into nostril. 0 09/12/2020 Active Warfarin Sodium 2.5 MG Oral TabletIndications:H istory of DVT (deep vein thrombosis),History of pulmonary embolism,Anticoagul ation management encounter,[facility] current use of anticoagulant therapy Take 2.5 [...] affected areas as needed 0 Active Nystatin 607746 UNIT/GM External Powder (Nystop) Apply powder to [...] as of this encounter (statuses as of 07/20/2023) Active Problems Problem Noted Date Diagnosed Date [...] risk for hemolytic transfusion reaction. Crossmatch compatible C-fidndbp-lkjqrtco RBCs should be given if transfusion is necessary, approximately 32% of blood donors will be compatible. 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 In reviewing his chart from [facility], his LFTs were also elevated since last [...] years. 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 Denies family hx of autoimmune or [...] soft. 01/15/19 - Pt was admitted at [facility] 12/18-12/22/18 for sepsis, bilateral LE cellulitis, JUAREZ. Received Doxycycline then converted to Keflex for the cellulitis. He returned to [facility] ED on 01/14 w c/o cough, SOB, [...] isn't closing. Noted most recent LFTs at [facility]: Tbili 1.2, AST 103, ALT 90, AP 166. 04/17/19 - Since last seen in clinic pt was admitted at [facility] 02/03- for GI bleeding, elevated INR (6 [...] this time. Of note also admitted at [facility] 02/09-02/12 for L arm weakness and possibly also slurring of speech. MRI brain w/o acute findings of stroke. Followed by Neurology while inpt buthasn't followed up since DC'd. He is back on Coumadin now. 09/04/19: Pt was admitted at [facility] 08/07 to 08/09 after noticing mucoid and [...] up stool but had stopped. Labs from [facility] reviewed. LFTs normal then in Jul 2019 Telemedicine visit 12/18/19: After connecting through [employer], patient was verified with two unique identifiers. 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 Ostomy output loose watery in morning then formed up in afternoon. He denies abd pain, n/v. No blood or dark tarry stools per ostomy 06/22/20: Pt unsure why appt today was made. When last seen I recommended 6 month's f/u. He is denying any GI complaints today. Last month had UTI, admitted at [facility]. Still having dysuria and had submitted UA, [...] to be conducted due to poor signal): Denies any fever, chills. Was having nausea, [...] 20% stenosis LAD, with preserved LV function, [facility] COLONOSCOPY, DIAGNOSTIC (RECTUM) N/A 03/28/2018 COLONOSCOPY FLEXIBLE PROXIMAL DIAGNOSTIC performed by Kel Willoughby DO at ENDOSCOPY [facility] COLOSTOMY/BIOPSIES hirschprung's disease CORONARY ANGIOGRAPHY W/RIGHT+LEFT CATH Bilateral 05/11/2016 CORONARY ANGIOGRAPHY W/RIGHT+LEFT CATH performed by Temi Haro MD at CARDIAC LABS [facility] CYSTOSCOPY 06/04/2008 EGD, FLEXIBLE, DIAGNOSTIC N/A 03/27/2018 ESOPHAGOGASTRODUODENOSCOPY (EGD), FLEXIBLE, TRANSORAL, DIAGNOSTIC performed by Liseth Guardado MD at ENDOSCOPY [facility] EGD, FLEXIBLE, DIAGNOSTIC N/A 04/04/2018 ESOPHAGOGASTRODUODENOSCOPY (EGD), FLEXIBLE, TRANSORAL, DIAGNOSTIC performed by Roya Leary MD at ENDOSCOPY [facility] EGD, FLEXIBLE, DIAGNOSTIC 02/04/2019 gastritis/[facility] DEREK FLEX SIGMOID DIAGNOSITIC N/A 04/03/2018 SIGMOIDOSCOPY FLEXIBLE DIAGNOSTIC performed by Vladislav Weathers MD at ENDOSCOPY [facility] DEREK FLEX SIGMOID DIAGNOSITIC N/A 04/04/2018 SIGMOIDOSCOPY FLEXIBLE DIAGNOSTIC performed by Roya Leary MD at ENDOSCOPY [facility] KNEE ARTHROSCOPY/SURGERY elft 2001,rt 2003 REPLACE MITRAL VALVE W/BYPASS N/A 06/20/2016 REPLACEMENT MITRAL VALVE performed by Mike Holloway MD at OR [facility] TENDON TRANSPLANT/TRANSFER THIGH, MULTIPLE 2001 Dr Tompkins [...] times a day. Test. Easy Touch Pen [place] 31G X 6 MM USE 6 TIMES [...] Apply to affected areas as needed Nystatin [id number] UNIT/GM External Powder (Nystop) Apply powder to [...] 25 MCG/ACT (0.025%) Nasal Solution Administer 1 [place] into nostril. (Patient not taking: Reported on [...] treated w Harvoni x 3 months by [facility]. His recent CT abd/pelvis w [...] - US yearly last done 12/2022 at [facility] (pt may have had CT liver within this year, we will try to obtain records from [facility]; if present will cancel US) 2. Ileostomy status. S/P take down of mucous fistula with completion colectomy and proctectomy, 09/2020; SBO 10/2020, resolved w conservative management. - May take fiber to bulk up stools RETURN TO CLINIC: 6 months or sooner prn. Anaya Sarkar [facility], [facility]. documented in this encounter Nursing Notes * Edith Hogan RN - 07/20/2023 12:10 PM EST Pt identified by name and date of . Verified pt not currently driving. Verified pt currently in the state of [place]. Chart updated with patient after review of [...] Description 09/21/2023 12:30 PM EST Imaging Radiology [facility] 1st Floor, [place] [address] [facility] [place] [address] 10/10/2023 1:30 PM EST Office Visit Urology, [facility] [address] [facility] [place] [address] Edson Barron MD [address] [place] [address] [place] [address] 11/22/2023 1:00 PM EDT Appointment Radiology, [place] [address] [place] [id number] 11/22/2023 1:45 PM EDT Office Visit Urology, [place] [address] [place] [address] Betzaida An MD [address], [place] [id number] 03/11/2024 1:20 PM EDT Office Visit Dermatology [address] [place] [address] Arielle Lorenzana PA-C [address] [place] [address] [place] [address] Scheduled Orders Name Type Priority Associated Diagnoses [...] this encounter Medical Devices Implanted Type Area Development Technician Device Identifier Shelf Expiration Date Model / Serial / Lot Screw Lorenzo 4x14mm Self Ca - [id number] Implanted:Qty: 4 on 06/07/2022 by Jamila Khan MD at OR [facility] LORI : SPINE [id number] / / [...] the patient have Health Care Power of Typing Pool Supervisor? No Code Status History Code Status Date [...] Agents on File Name Relationship Healthcare Agent [facility] Communication David Grajeda Adult Child Health Care Agent Care Teams Building Custodian Relationship Specialty Start Date End Date Demarcus Nicholson DO [address] [facility] [address] [place] [address] PCP - General Family Medicine 04/22/16 documented as of this encounter
[2023-07-23] MEDS ORDERED: SODIUM CHLORIDE 0.9% 500 ML IV SCH (15:00)
[2023-07-23] MEDS ORDERED: SODIUM CHLORIDE 0.9% 1,000 ML IV SCH (15:00)
[2023-07-23 15:10] LABS: Appearance Urine Turbid (Clear); Bacteria Urine Automated 3+ (Negative); Bilirubin Urine Negative (Negative); Blood Urine 3+ (Negative); Color Urine Yellow; Glucose Urine UA Negative (Negative); Ketones Urine Negative (Negative); Leukocyte Esterase Urine 2+ (Negative); Nitrite Urine Negative (Negative); Protein Urine 2+ (Negative); Specific Gravity Urine 1.014 (1.000-1.030); Urobilinogen Urine Negative (Negative); WBC Urine Automated >30 /hpf (0-5)
--- NOTE | 2023-07-23 15:13 | Emergency Department Note ---
History of Present Illness General Chief complaint: Illness Time Seen by Provider: 07/23/23 14:55 History of Present Illness Provider complaint: Fever decreased urine output Onset (ago): week(s) 2 53-year-old male presents emergency department for fever and decreased urine output. Patient reports symptoms been getting worse over the last 2 weeks. Patient reports subjective fevers. No falls or head trauma. Patient reports he has been having some abdominal pain as well. Reports nausea and vomiting. Home Medications Medication Instructions Recorded Confirmed Type insulin aspart U-100 100 unit/mL 0 sliding scale dose subcut TIDM 10/08/18 07/23/23 History (3 mL) subcutaneous pen (Novolog per sliding scale FlexPen U-100 Insulin aspart) famotidine 40 mg tablet (Pepcid) 40 mg PO QAM 05/27/19 07/23/23 History allopurinol 300 mg tablet 300 mg PO QAM 01/23/20 07/23/23 History carvedilol 6.25 mg tablet 6.25 mg PO BID #60 tabs 09/30/21 07/23/23 Rx clotrimazole-betamethasone 1 1 applic topical BID PRN affected 02/24/22 07/23/23 History %-0.05 % topical cream area cholecalciferol (vitamin D3) 125 125 mcg PO QAM 09/24/22 07/23/23 History mcg (5,000 unit) tablet (Vitamin D3) gabapentin 300 mg capsule 300 mg PO BID 09/24/22 07/23/23 History warfarin 2.5 mg tablet See Rx Instructions .Route .COMPLEX 09/24/22 07/23/23 History dulaglutide 1.5 mg/0.5 mL 1.5 mg subcut WK 03/09/23 07/23/23 History subcutaneous pen injector (Trulicity) insulin detemir U-100 100 unit/mL 60 unit subcut BID 03/09/23 07/23/23 History (3 mL) subcutaneous pen (Levemir FlexPen) oxycodone 30 mg tablet 30 mg PO TID 03/09/23 07/23/23 History triamcinolone acetonide 0.1 % 1 applic topical UD 03/09/23 07/23/23 History topical cream valsartan 40 mg tablet 40 mg PO QPM 03/09/23 07/23/23 History solifenacin 10 mg tablet 10 mg PO QAM 07/23/23 07/23/23 History Allergies Allergy/AdvReac Type Severity Reaction Status Date / Time ciprofloxacin Allergy Unknown "Levels Unverified 07/23/23 17:07 were up" gluten Allergy Verified 07/23/23 17:07 sulfamethoxazole AdvReac Unknown "Levels Verified 07/23/23 17:07 [From Bactrim] were up"-per [facility] trimethoprim [From Bactrim] AdvReac Unknown "Levels Verified 07/23/23 17:07 were up"-per [facility] Past Med/Surg History Medical History History of GI bleed Hx of pulmonary embolus Chronic indwelling Velazquez catheter Celiac disease Difficult airway for intubation 01/18/22 Patient unable to be intubated with Glidescope 4 - good view but unable to pass ETT, Igel #5 easily placed and worked well History of COVID-19 05/2021- no symptoms- no hospitalization History of blood transfusion 2018 in setting of GI bleed GI bleed 2018 requiring 3 blood transfusions, transferred to [facility] with work-up not revealing clear cause per records Coronary artery disease CABG x 1 2012-VG to LAD, multiple stents, follows with [facility] cardio History of endocarditis TREATED AT [facility]-2012 Chronic kidney disease, stage 3a follows with [facility] Hyperlipidemia Morbid obesity Sleep apnea, organic NO DEVICE AT THIS TIME, HIS MACHINE WAS INVOLVED IN RECALL History of CVA (cerebrovascular accident) 2012-admitted [facility] Hirschsprung's disease Pulmonary hypertension Diastolic congestive heart failure EF 55-59% History of intravenous drug abuse Paraplegia Gout Hepatitis C TREATED DM type 2 (diabetes mellitus, type 2) IDDM Pulmonary emboli 05/2010-unknown cause- admitted and treated at [facility] Surgical History H/O cervical spine surgery for severe stenosis w/ myelopathy; 05/2022 - [facility] S/P ureteral stent placement 08/2022 - [facility] S/P ileostomy S/P brain surgery 2013- [facility] H/O aortic root repair 05/2016- [facility] repair UNSURE-[facility] OR [facility] S/P colostomy FOLLOWS W/ [facility] S/P cardiac cath Hx of CABG 2012 [facility] PRES- DUE TO ENDOCARDITIS, single vessel per records Family History Father Cardiac disorder Hypertension Prostate cancer Diabetes Coronary heart disease COPD (chronic obstructive pulmonary disease) Pacemaker Mother Hypertension Skin cancer Dementia Social History Smoking Status: Never smoker Tobacco Type: E-cigarettes / Vaping Second Hand Exposure: No; Do You Dip or Chew Tobacco: No; Hx Alcohol Use: No Hx Substance Use: Yes Last Used Substance: Unknown Preferred Language: Latvian Communication Ability: Effective Communication Ability Comment: GARBLED SPEECH Valve Inspector Required: No Beliefs That Will Affect Care: None marital status: Single Current Living Situation: Parent Current Living Situation Comment: Lives with parents and has caregivers to come and help with ADLs current occupational status: employed 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 How many Children do You have: 2 Feels Safe at Home: Yes Assistive Devices: BiPap, Hospital Bed, Mechanical Lift, Walker and Wheelchair Physical Exam Vital Signs Vital Signs - 24 hr 07/23/23 14:16 07/23/23 14:42 07/23/23 14:42 Temperature 36.5 C 36.5 C Temperature Source Oral Oral Pulse Rate 98 H 99 H Pulse Rate [Bilateral] 99 H Pulse Rate from SpO2 Sensor Respiratory Rate 18 18 Blood Pressure 98/54 L Blood Pressure [Right Arm] 98/54 L Blood Pressure Mean 68 Blood Pressure Mean [Right Arm] 68 Pulse Oximetry 98 98 Oxygen Delivery Method Room Air Room Air Sepsis Recent Fever Within 48 Hours Yes Sepsis New/Unexplained Change in Mental Status No Sepsis Action Taken by Nursing No Action Required 07/23/23 14:56 07/23/23 15:00 07/23/23 15:56 Temperature Temperature Source Pulse Rate Pulse Rate [Bilateral] 92 H Pulse Rate from SpO2 Sensor Respiratory Rate 18 Blood Pressure 115/82 Blood Pressure [Right Arm] 115/69 Blood Pressure Mean 96 Blood Pressure Mean [Right Arm] 84 Pulse Oximetry 98 96 Oxygen Delivery Method Room Air Room Air Sepsis Recent Fever Within 48 Hours Sepsis New/Unexplained Change in Mental Status Sepsis Action Taken by Nursing 07/23/23 16:00 07/23/23 16:00 07/23/23 16:00 Temperature Temperature Source Pulse Rate 91 H Pulse Rate [Bilateral] 91 H Pulse Rate from SpO2 Sensor Respiratory Rate 18 23 Blood Pressure 106/75 Blood Pressure [Right Arm] 106/75 Blood Pressure Mean 91 Blood Pressure Mean [Right Arm] 85 Pulse Oximetry 99 Oxygen Delivery Method Room Air Sepsis Recent Fever Within 48 Hours Sepsis New/Unexplained Change in Mental Status Sepsis Action Taken by Nursing 07/23/23 16:23 07/23/23 16:30 07/23/23 16:30 Temperature Temperature Source Pulse Rate 92 H 92 H Pulse Rate [Bilateral] Pulse Rate from SpO2 Sensor 91 H 92 H Respiratory Rate 20 17 Blood Pressure 119/75 Blood Pressure [Right Arm] Blood Pressure Mean 96 Blood Pressure Mean [Right Arm] Pulse Oximetry 97 94 Oxygen Delivery Method Sepsis Recent Fever Within 48 Hours Sepsis New/Unexplained Change in Mental Status Sepsis Action Taken by Nursing 07/23/23 16:40 07/23/23 16:50 07/23/23 17:00 Temperature Temperature Source Pulse Rate 93 H 90 89 Pulse Rate [Bilateral] Pulse Rate from SpO2 Sensor 93 H 90 89 Respiratory Rate 19 17 12 Blood Pressure Blood Pressure [Right Arm] Blood Pressure Mean Blood Pressure Mean [Right Arm] Pulse Oximetry 96 97 98 Oxygen Delivery Method Sepsis Recent Fever Within 48 Hours Sepsis New/Unexplained Change in Mental Status Sepsis Action Taken by Nursing 07/23/23 17:05 07/23/23 17:10 07/23/23 17:20 Temperature Temperature Source Pulse Rate 92 H 101 H Pulse Rate [Bilateral] 89 Pulse Rate from SpO2 Sensor 93 H 101 H Respiratory Rate 18 22 21 Blood Pressure Blood Pressure [Right Arm] Blood Pressure Mean Blood Pressure Mean [Right Arm] Pulse Oximetry 98 99 98 Oxygen Delivery Method Room Air Sepsis Recent Fever Within 48 Hours Sepsis New/Unexplained Change in Mental Status Sepsis Action Taken by Nursing 07/23/23 17:23 07/23/23 17:23 07/23/23 17:30 Temperature Temperature Source Pulse Rate 97 H 100 H Pulse Rate [Bilateral] Pulse Rate from SpO2 Sensor 97 H 101 H Respiratory Rate 16 17 Blood Pressure 135/87 108/84 Blood Pressure [Right Arm] Blood Pressure Mean 102 92 Blood Pressure Mean [Right Arm] Pulse Oximetry 100 97 Oxygen Delivery Method Room Air Sepsis Recent Fever Within 48 Hours Sepsis New/Unexplained Change in Mental Status Sepsis Action Taken by Nursing 07/23/23 17:46 Temperature Temperature Source Pulse Rate 100 H Pulse Rate [Bilateral] Pulse Rate from SpO2 Sensor 100 H Respiratory Rate 25 H Blood Pressure 126/72 Blood Pressure [Right Arm] Blood Pressure Mean 90 Blood Pressure Mean [Right Arm] Pulse Oximetry 97 Oxygen Delivery Method Room Air Sepsis Recent Fever Within 48 Hours Sepsis New/Unexplained Change in Mental Status Sepsis Action Taken by Nursing GENERAL: Patient is paraplegic. Patient was moved from his wheelchair to the bed. Patient appears lethargic. HENT: Exam performed. - Head: Normocephalic and atraumatic. EYES: Conjunctivae and EOM are normal. Pupils are equal, round, and reactive to light. Right eye exhibits no discharge. Left eye exhibits no discharge. No scleral icterus. NECK: Normal range of motion. Neck supple. No JVD present. No rigidity. No tracheal deviation and normal range of motion present. CV: Normal rate, regular rhythm, normal heart sounds and intact distal pulses. There is no peripheral edema. Palpable radial pulses bue. PULM/CHEST: Effort normal and breath sounds normal. No respiratory distress. No stridor. He has no wheezes. He has no rales. - Chest Wall: He exhibits no tenderness. ABD: The abdomen is soft and obese. Abdominal surgical scars are clean and dry. There is no discharge or erythema around them. No pain on palpation of the abdomen. Suprapubic catheter and ostomy in place. NEURO: He is lethargic but oriented to person, place, and time. H patient is paraplegic, his baseline. Course Course 1455: The patient was evaluated in room B12. A complete history and physical exam was performed Cardiac monitoring: An order was placed for continuous cardiac monitoring. The monitor shows a rate of 90 with sinus rhythm interpreted by wi 1648: Vital signs stable. Labs show white blood cell count of 12.12. Venous pH 7.05. Venous pCO2 48. Potassium 6.2. Sodium 133. Chloride 112. Bicarb 14. BUN 102. Creatinine 4.6. External medical records reviewed this is similar to how the patient presented in February 2023. At that time the patient was managed inpatient at this facility and nephrology evaluate the patient and conservative treatment was done and the patient was not started on dialysis. Patient's urine could be infected. Zosyn given to the patient. Patient will be treated with calcium gluconate 1 g, 10 units insulin 1 amp D50, Lokelma, and 1 amp of bicarb. Discussed the case with on-call nephrology Dr. Campbell who is in agreement with this treatment. She states to recheck the labs 1 hour after these interventions are completed. She states hold off on bicarb drip at this time. Patient will be admitted to the [facility] hospitalist team Dr. Sykes notified. 1905: Vital signs stable. Repeat labs showed venous pH of 7.12 with a pCO2 of 41. Repeat sodium 135 potassium 5.6 BUN 98 creatinine 4.3. Discussed the case with Dr. Campbell and agrees that the patient can be admitted to the hospitalist service. She recommends against bicarb drip at this time. Hospitalist team was informed. Administered Medications Discontinued Medications Calcium Gluconate (Calcium Gluconate 1000 Mg/60 Ml Nss) Confirm Administered Dose 1,000 mg IV .STK-MED ONE Stop: 07/23/23 16:49 Last Admin: 07/23/23 16:51 Dose: 1,000 mg Documented By: STEVEN Dextrose (Dextrose 50% 50 Ml Syringe) 50 ml IV NOW STA Stop: 07/23/23 16:37 Last Admin: 07/23/23 17:11 Dose: 50 ml Documented By: STEVEN Sodium Chloride (Nss) 500 mls @ 999 mls/hr IV .Q31M CLAUDIA Stop: 07/23/23 15:30 Last Infusion: 07/23/23 16:36 Dose: Infused Documented By: Admin: 07/23/23 15:52 Dose: 999 mls/hr Documented By: FELICIA Sodium Chloride (Nss) 1,000 mls @ 125 mls/hr IV .Q8H CLAUDIA Stop: 08/22/23 14:59 Last Admin: 07/23/23 16:55 Dose: Not Given Documented By: FELICIA Calcium Gluconate 1,000 mg/ (Sodium Chloride) 60 mls @ 240 mls/hr IV NOW ONE Stop: 07/23/23 16:50 Last Admin: 07/23/23 17:08 Dose: Not Given Documented By: STEVEN Insulin Human Regular 10 units (/ Syringe) 9.9 mls @ 3 mls/sec IV ONE STA Stop: 07/23/23 16:37 Last Admin: 07/23/23 17:11 Dose: 3 mls/sec Documented By: STEVEN Co-signed By: FELICIA Sodium Bicarbonate 150 meq/ (Dextrose) 1,150 mls @ 290 mls/hr IV .Q3H58M STA Stop: 07/23/23 20:33 Last Infusion: 07/23/23 17:15 Dose: 0 mls/hr Documented By: Admin: 07/23/23 17:13 Dose: 290 mls/hr Documented By: STEVEN Piperacillin Sod/Tazobactam (Sod 4.5 gm/ Dextrose) 100 mls @ 200 mls/hr IV NOW ONE; Protocol Stop: 07/23/23 17:13 Last Infusion: 07/23/23 18:00 Dose: Infused Documented By: Admin: 07/23/23 17:16 Dose: 200 mls/hr Documented By: STEVEN Phytonadione 5 mg/ Dextrose 50.5 mls @ 101 mls/hr IV ONE ONE Stop: 07/23/23 17:24 Last Infusion: 07/23/23 18:00 Dose: Infused Documented By: Admin: 07/23/23 17:23 Dose: 101 mls/hr Documented By: STEVEN Insulin Human Regular (Novolin-R Insulin Per Unit Charge) Confirm Administered Dose 1 units .ROUTE .STK-MED ONE Stop: 07/23/23 16:48 Last Admin: 07/23/23 17:15 Dose: Not Given Documented By: STEVEN Insulin Human Regular (Novolin-R Insulin Per Unit Charge) Confirm Administered Dose 1 units .ROUTE .STK-MED ONE Stop: 07/23/23 16:57 Last Admin: 07/23/23 17:16 Dose: Not Given Documented By: STEVEN Miscellaneous (Stat Iv/Im) 1 each N/A NOW STA Stop: 07/23/23 16:37 Last Admin: 07/23/23 18:34 Dose: Not Given Documented By: FELICIA Sodium Bicarbonate (Sodium Bicarb 8.4% Inj 50 Meq/50 Ml Syr) 50 meq IV NOW STA Stop: 07/23/23 17:18 Last Admin: 07/23/23 17:18 Dose: 50 meq Documented By: STEVEN Sodium Bicarbonate (Sodium Bicarb 8.4% Inj 50 Meq/50 Ml Syr) Confirm Administered Dose 50 meq IV .STK-MED ONE Stop: 07/23/23 17:18 Last Admin: 07/23/23 17:26 Dose: Not Given Documented By: STEVEN Critical Care Time Critical Care Time: Yes Total Critical Care Time: 77 I have personally spent greater than 77 minutes of critical care time in the direct management of this patient. This includes bedside care, interpretation of diagnostic studies, and testing, discussion with consultants, patient, and family members, and other required patient management activities. This 77 minutes is in excess of all separately billable procedures. Medical Decision Making Laboratory Data Attestation: I reviewed the patient's lab results. 07/23/23 15:24 07/23/23 18:22 Lab Results 07/23/23 07/23/23 07/23/23 Range/Units 14:30 15:24 15:45 WBC 12.12 H (4.8-10.8) K/ul RBC 4.01 L (4.70-6.10) M/uL Hgb 12.5 L (14.0-18.0) g/dl Hct 39.0 L (42.0-52.0) % MCV 97.3 (80.0-100.0) fL MCH 31.2 (25.0-34.0) pg MCHC 32.1 (32.0-36.0) g/dL RDW Std Deviation 54.6 H (36.4-46.3) fL RDW Coeff of Lorenzo 15.1 H (11.5-14.5) % Plt Count 179 (130-400) K/uL MPV 11.1 (9.4-12.4) fL Immature Gran % (Auto) 0.5 % Neut % (Auto) 90.6 % Lymph % (Auto) 5.5 % Mitchell % (Auto) 2.4 % Eos % (Auto) 0.8 % Baso % (Auto) 0.2 % Neut # (Auto) 10.97 H (1.40-6.50) K/uL Lymph # (Auto) 0.67 L (1.20-3.40) K/uL Mitchell # (Auto) 0.29 (0.11-0.59) K/uL Eos # (Auto) 0.10 (0.00-0.50) K/uL Baso # (Auto) 0.03 (0.00-0.20) K/uL Immature Gran # (Auto) 0.06 (0.01-0.20) K/uL PT 55.2 H (9.0-12.0) Seconds INR 5.6 H* (0.9-1.1) APTT 68.1 H* (21.0-31.0) Seconds PTT Ratio 2.4 VBG pH 7.05 L (7.36-7.41) VBG pCO2 48 (38-50) mmHg VBG pO2 < 20 mmHg VBG HCO3 13 mmol/L VBG O2 Saturation < 60.0 % VBG Base Excess -17.0 mEq/L Sodium 133 L (136-145) mmol/L Potassium 6.2 H* (3.5-5.1) mmol/L Chloride 112 H (98-107) mmol/L Carbon Dioxide 14 L (21-32) mmol/L Anion Gap 7 (3-11) BUN 102 H (6-23) mg/dl Creatinine 4.60 H* (0.6-1.4) mg/dl Est Cr Clr Drug Dosing 25.8 ml/min Est GFR ( Amer) 15.9 ml/min Est GFR (Non-Af Amer) 13.7 ml/min BUN/Creatinine Ratio 22.2 H (10-20) Glucose 127 H (70-99(Fasting)) mg/dl Lactate 0.6 (0.4-2.0) mmol/L Calcium 9.2 (8.6-10.3) mg/dl Magnesium 1.8 (1.7-2.4) mg/dl Total Bilirubin 0.4 (0.2-1.0) mg/dl Direct Bilirubin 0.1 (0-0.2) mg/dl AST 7 L (13-39) U/L ALT 7 (7-52) U/L Alkaline Phosphatase 168 H (34-104) U/L Troponin I High Sens 4.5 (0-20) pg/ml Total Protein 7.6 (6.0-8.3) gm/dl Albumin 3.6 (3.4-5.0) gm/dl Procalcitonin 0.37 (0-0.5) ng/ml Urine Color Yellow Urine Appearance Turbid A (Clear) Urine pH 5.0 (4.5-7.5) Ur Specific [place] 1.014 (1.000-1.030) Urine Protein 2+ H (Negative) Urine Glucose (UA) Negative (Negative) Urine Ketones Negative (Negative) Urine Blood 3+ H (Negative) Urine Nitrite Negative (Negative) Urine Bilirubin Negative (Negative) Urine Urobilinogen Negative (Negative) Ur Leukocyte Esterase 2+ H (Negative) Urine WBC (Auto) >30 H (0-5) /hpf Urine RBC (Auto) 5-10 H (0-4) /hpf U Hyaline Cast (Auto) 1-5 (0-5) /lpf U Epithel Cells (Auto) 10-20 H (0-5) /lpf Urine Bacteria (Auto) 3+ H (Negative) Urine Yeast Not Reportable Imaging Data Radiologist's Impression: Chest X-Ray 07/23/23 14:56 XR chest 1V portable HISTORY: Sepsis COMPARISON: Chest 12/02/2022. FINDINGS: There are low lung volumes, unchanged. The heart remains mildly enlarged. There are poststernotomy changes. No pleural effusions. No pneumothorax. No focal lung consolidations to suggest a pneumonia. No evidence for pulmonary edema. IMPRESSION: No significant change compared to the prior study. No acute process. ACT 112: Negative or not required by law. Electronically signed by: Ronnie Abad M.D. 07/23/2023 3:18 PM Abdomen/Pelvis CT 07/23/23 14:[address] WITHOUT CONTRAST CT DOSE: 2276.94 mGy.cm HISTORY: flank pain difficulty urinating TECHNIQUE: Multiaxial CT images of the abdomen and pelvis were performed without contrast. A dose lowering technique was utilized adhering to the principles of ALARA. COMPARISON STUDY: Abdomen and pelvis CT 03/09/2023. FINDINGS: Linear scarlike densities again noted within the lower lobes. There are small nodular groundglass airspace opacities within the lower lobes which are new from the prior study. This favors a developing pneumonia. No pneumoperitoneum. No pneumatosis. No acute fractures. There are poststernotomy changes. Cholelithiasis. The unenhanced liver, spleen, adrenal glands, and pancreas unremarkable. No retroperitoneal lymphadenopathy. Mild calcified plaque within the normal caliber abdominal aorta. Left greater than right perinephric fat stranding, unchanged. There is a hyperdense 1.5 cm left renal lesion, unchanged. Suspect a small chronic subcapsular fluid collection/old hematoma again noted within the lower pole the left kidney on image 186. This remains unchanged. There are few punctate bilateral renal calculi. No ureteral calculi. No hydronephrosis. There is gas within the right renal collecting system and right ureter. The bladder is decompressed by suprapubic catheter. Bladder wall thickening is suggested. The heart remains unchanged. No pelvic free fluid or pelvic lymphadenopathy. Postoperative changes consistent with a subtotal colectomy and right lower quadrant ileostomy. No dilated loops of bowel to suggest an obstruction. No bowel wall thickening. Small parastomal hernia the right lower quadrant with a few loops of small bowel. Tiny midline ventral hernia containing a knuckle small bowel in image 265. IMPRESSION: 1. Bilateral nephrolithiasis. No ureteral stones. No hydronephrosis. 2. There is gas within the right renal collecting system and right ureter. This is new from the prior study and could be due to the suprapubic catheter. Underlying infection is not excluded. 3. Suspect a small residual old subcapsular hematoma within the lower pole of the left kidney. This remains unchanged. No evidence for acute subcapsular/retroperitoneal hemorrhage. 4. Left perinephric fat stranding, unchanged. 5. Cholelithiasis. 6. No bowel wall thickening or obstruction. 7. There are small nodular groundglass airspace opacities within the lower lobes which are new from the prior study. This favors a developing pneumonia. 8. Additional findings as described above. ACT 112: Negative or not required by law. Electronically signed by: Ronnie Abad M.D. 07/23/2023 4:[address] 07/23/23 15:[address] DOSE: HISTORY: confusion TECHNIQUE: Multiaxial CT images of the head were performed without the use of intravenous contrast. Automated exposure control was utilized for this study. A dose lowering technique was utilized adhering to the principles of ALARA. Comparison: Head CT 02/24/2022. Findings: The paranasal sinuses and mastoid air cells are clear. The calvarium and skull base are intact. There is no mass, hematoma, midline shift, acute infarct. White matter hypodensity is nonspecific but suggestive of microvascular ischemic change. The ventricles and sulci demonstrate mild age-related involutional changes. Dante hole again noted within the right occipital bone. Right cerebellar encephalomalacia, unchanged. Old small infarcts within the bilateral parietal lobes. Impression: 1. No acute infarct or intracranial hemorrhage. 2. Old infarcts and post operative changes again noted. ACT 112: Negative or not required by law. Electronically signed by: Ronnie Abad M.D. 07/23/2023 4:39 PM ECG Data Attestation: I personally reviewed and interpreted this ECG as follows: Rate (beats per minute): 97 Rhythm: + normal sinus ECG Intervals/blocks: + First degree AV block, + Normal QRS and + Normal QT-c ECG ST segments: + Normal ST segments [facility] Narrative 1455: The patient was evaluated in room B12. A complete history and physical exam was performed Cardiac monitoring: An order was placed for continuous cardiac monitoring. The monitor shows a rate of 90 with sinus rhythm interpreted by wi 1648: Vital signs stable. Labs show white blood cell count of 12.12. Venous pH 7.05. Venous pCO2 48. Potassium 6.2. Sodium 133. Chloride 112. Bicarb 14. BUN 102. Creatinine 4.6. External medical records reviewed this is similar to how the patient presented in February 2023. At that time the patient was managed inpatient at this facility and nephrology evaluate the patient and conservative treatment was done and the patient was not started on dialysis. Patient's urine could be infected. Zosyn given to the patient. Patient will be treated with calcium gluconate 1 g, 10 units insulin 1 amp D50, Lokelma, and 1 amp of bicarb. Discussed the case with on-call nephrology Dr. Campbell who is in agreement with this treatment. She states to recheck the labs 1 hour after these interventions are completed. She states hold off on bicarb drip at this time. Patient will be admitted to the [facility] hospitalist team Dr. Sykes notified. 190: Vital signs stable. Repeat labs showed venous pH of 7.12 with a pCO2 of 41. Repeat sodium 135 potassium 5.6 BUN 98 creatinine 4.3. Discussed the case with Dr. Campbell and agrees that the patient can be admitted to the hospitalist service. She recommends against bicarb drip at this time. Hospitalist team was informed. Impression & Plan Acute hyperkalemia, Acute kidney injury, Supratherapeutic INR Discharge Plan Visit Data Chief Complaint: Illness ED Provider: Cristopher Howell Discharge Problem: Acute hyperkalemia, Acute kidney injury, Supratherapeutic INR Patient Disposition: Admitted As Inpatient Discharge Instructions Interventions: ED Discharge Assessment Last Done: 07/23/23 19:06
--- NOTE | 2023-07-23 15:19 | XRay Report ---
XR chest 1V portable HISTORY: Sepsis COMPARISON: Chest 12/02/2022. FINDINGS: There are low lung volumes, unchanged. The heart remains mildly enlarged. There are postste rnotomy changes. No pleural effusions. No pneumothorax. No focal lung consolidations to suggest a pne umonia. No evidence for pulmonary edema. IMPRESSION: No significant change compared to the prior study. No acute process. ACT 112: Negative or not required by law. Electronically signed by: Ronnie Abad M.D. 07/23/2023 3:18 PM
[2023-07-23 15:34] LABS: HCO3 VBG 13 mmol/L; Oxygen Saturation VBG < 60.0 %; PCO2 VBG 48 mmHg (38-50); PO2 VBG < 20 mmHg; pH VBG 7.05 (7.36-7.41)
[2023-07-23 15:37] LABS: Hemoglobin 12.5 g/dl (14.0-18.0); Mean Corpuscular Hemoglobin 31.2 pg (25.0-34.0); Mean Corpuscular Hgb Conc 32.1 g/dL (32.0-36.0); Mean Corpuscular Volume 97.3 fL (80.0-100.0); Mean Platelet Volume 11.1 fL (9.4-12.4); Platelet Count 179 K/uL (130-400); RDW Coefficient of Variation 15.1 % (11.5-14.5); RDW Standard Deviation 54.6 fL (36.4-46.3); Red Blood Count 4.01 M/uL (4.70-6.10); White Blood Count 12.12 K/ul (4.8-10.8)
[2023-07-23 15:53] LABS: Basophils # (auto) 0.03 K/uL (0.00-0.20); Basophils % (auto) 0.2 %; Eosinophils % (auto) 0.8 %; Immature Granulocytes # (auto) 0.06 K/uL (0.01-0.20); Immature Granulocytes % (auto) 0.5 %; Lymphocytes # (auto) 0.67 K/uL (1.20-3.40); Lymphocytes % (auto) 5.5 %; Monocytes # (auto) 0.29 K/uL (0.11-0.59); Monocytes % (auto) 2.4 %; Neutrophils # (auto) 10.97 K/uL (1.40-6.50); Neutrophils % (auto) 90.6 %
[2023-07-23 16:32] LABS: Troponin I High Sensitivity 4.5 pg/ml (0-20)
[2023-07-23 16:36] LABS: Albumin Level 3.6 gm/dl (3.4-5.0); BUN Creatinine Ratio 22.2 (10-20); Bilirubin Direct 0.1 mg/dl (0-0.2); Bilirubin,Total 0.4 mg/dl (0.2-1.0); Calcium 9.2 mg/dl (8.6-10.3); Creatinine Clr Calc Pharmacy 25.8 ml/min; Est GFR (African American) 15.9 ml/min; Est GFR (Non-African American) 13.7 ml/min; Magnesium 1.8 mg/dl (1.7-2.4); Potassium 6.2 mmol/L (3.5-5.1); Total Protein 7.6 gm/dl (6.0-8.3)
[2023-07-23] MEDS ORDERED: SODIUM BICARBONATE 8.4% 150 MEQ in DEXTROSE 5% 1,000 ML IV STA (16:36)
[2023-07-23] MEDS ORDERED: DEXTROSE 50% 50 ML SYRINGE IV STA (16:36)
[2023-07-23] MEDS ORDERED: INSULIN HUMAN REGULAR PER UNIT 10 UNITS in SYRINGE 9.9 ML IV STA (16:36)
[2023-07-23] MEDS ORDERED: CALCIUM GLUCONATE 10% 1,000 MG in SODIUM CHLOR 0.9% MINI-B 50 ML IV ONE (16:36)
[2023-07-23] MEDS ORDERED: STAT IV/IM STA (16:36)
--- NOTE | 2023-07-23 16:42 | CT Scan Report ---
HEAD CT NONCONTRAST CT DOSE: HISTORY: confusion TECHNIQUE: Multiaxial CT images of the head were performed without the use of intravenous contrast. A utomated exposure control was utilized for this study. A dose lowering technique was utilized adheri ng to the principles of ALARA. Comparison: Head CT 02/24/2022. Findings: The paranasal sinuses and mastoid air cells are clear. The calvarium and skull base are int act. There is no mass, hematoma, midline shift, acute infarct. White matter hypodensity is nonspecifi c but suggestive of microvascular ischemic change. The ventricles and sulci demonstrate mild age-rela haile involutional changes. Dante hole again noted within the right occipital bone. Right cerebellar enc ephalomalacia, unchanged. Old small infarcts within the bilateral parietal lobes. Impression: 1. No acute infarct or intracranial hemorrhage. 2. Old infarcts and post operative changes again noted. ACT 112: Negative or not required by law. Electronically signed by: Ronnie Abad M.D. 07/23/2023 4:39 PM
[2023-07-23] MEDS ORDERED: PIPERACILLIN/TAZOBACTAM 4.5 GM in DEXTROSE 5% MINI-B 100 ML IV ONE (16:44)
[2023-07-23] MEDS ORDERED: NovoLIN-R INSULIN PER UNIT CHARGE ONE ×2 (16:47→16:56)
[2023-07-23] MEDS ORDERED: CALCIUM GLUCONATE 1000 MG/60 ML NSS IV ONE (16:48)
--- NOTE | 2023-07-23 16:51 | CT Scan Report ---
ABDOMEN AND PELVIS CT WITHOUT CONTRAST CT DOSE: 2276.94 mGy.cm HISTORY: flank pain difficulty urinating TECHNIQUE: Multiaxial CT images of the abdomen and pelvis were performed without contrast. A dose lo wering technique was utilized adhering to the principles of ALARA. COMPARISON STUDY: Abdomen and pelvis CT 03/09/2023. FINDINGS: Linear scarlike densities again noted within the lower lobes. There are small nodular groun dglass airspace opacities within the lower lobes which are new from the prior study. This favors a de veloping pneumonia. No pneumoperitoneum. No pneumatosis. No acute fractures. There are poststernotomy changes. Cholelithiasis. The unenhanced liver, spleen, adrenal glands, and pancreas unremarkable. No retroperitoneal lymphadenopathy. Mild calcified plaque within the normal caliber abdominal aorta. Le ft greater than right perinephric fat stranding, unchanged. There is a hyperdense 1.5 cm left renal l esion, unchanged. Suspect a small chronic subcapsular fluid collection/old hematoma again noted withi n the lower pole the left kidney on image 186. This remains unchanged. There are few punctate bilater al renal calculi. No ureteral calculi. No hydronephrosis. There is gas within the right renal collect ing system and right ureter. The bladder is decompressed by suprapubic catheter. Bladder wall thicken ing is suggested. The heart remains unchanged. No pelvic free fluid or pelvic lymphadenopathy. Postop erative changes consistent with a subtotal colectomy and right lower quadrant ileostomy. No dilated l oops of bowel to suggest an obstruction. No bowel wall thickening. Small parastomal hernia the right lower quadrant with a few loops of small bowel. Tiny midline ventral hernia containing a knuckle smal l bowel in image 265. IMPRESSION: 1. Bilateral nephrolithiasis. No ureteral stones. No hydronephrosis. 2. There is gas within the right renal collecting system and right ureter. This is new from the prior study and could be due to the suprapubic catheter. Underlying infection is not excluded. 3. Suspect a small residual old subcapsular hematoma within the lower pole of the left kidney. This r emains unchanged. No evidence for acute subcapsular/retroperitoneal hemorrhage. 4. Left perinephric fat stranding, unchanged. 5. Cholelithiasis. 6. No bowel wall thickening or obstruction. 7. There are small nodular groundglass airspace opacities within the lower lobes which are new from t he prior study. This favors a developing pneumonia. 8. Additional findings as described above. ACT 112: Negative or not required by law. Electronically signed by: Ronnie Abad M.D. 07/23/2023 4:49 PM
[2023-07-23 16:53] LABS: Partial Thromboplastin Ratio 2.4; Prothrombin Time 55.2 Seconds (9.0-12.0)
[2023-07-23 16:55] LABS: INR 5.6 (0.9-1.1); Partial Thromboplastin Time 68.1 Seconds (21.0-31.0)
[2023-07-23] MEDS ORDERED: PHYTONADIONE 5 MG in DEXTROSE 5% 50 ML IV ONE (16:55)
[2023-07-23] MEDS ORDERED: SODIUM BICARB 8.4% INJ 50 MEQ/50 ML SYR IV STA (17:17)
[2023-07-23] MEDS ORDERED: SODIUM BICARB 8.4% INJ 50 MEQ/50 ML SYR IV ONE (17:17)
--- NOTE | 2023-07-23 17:50 | History & Physical Report ---
Date of Service July 23, 2023 Assessment & Plan (1) Acute kidney injury superimposed on chronic kidney disease: Plan: Suspect mostly pre-renal with underlying infection and hypotension, no evidence of underlying cellulitis from prior admissions No post obstructive cause seen on CT IV fluids with sodium bicarb up until pH/bicarb corrected then switch to Plasma- lyte or LR Hold Valsartan (2) Hyperkalemia: Plan: Emergent treatment given in the ER (insulin/dxtrose, sodium bicarb 50 meq, Calcium gluconate, Lokelma) with good response K 6.2 -> 5.6 Repeat levels in AM (3) Catheter-associated urinary tract infection: Plan: Hx of ESBL Proteus therefore will use meropenem IV for empiric coverage pending urine and blood culture results (4) Metabolic acidosis: Plan: Sodium bicarb @ 150ml/hr overnight, repeat labs in AM (5) Diabetes mellitus type 2, uncontrolled: Plan: Hemoglobin A1C 7.0 in February, repeat with AM labs Hold outpatient insulin - usually requires much less than his outpatient dosing in hospital Start Lantus 15 units BID Novolog: --Goal BSG Range: Low 110 mg/dL, High 140 mg/dL --Correction Factor: 15 mg/dL/unit --Carbohydrate ratio = 6 g/unit --BSGs ACHS if eating, q6h if npo (6) ANIBAL (obstructive sleep apnea): Plan: BiPAP HS and while napping (7) Elevated INR: Plan: Suspect from warfarin in setting of renal failure Vitamin K 5mg IV given in the ER Repeat with AM labs (8) History of DVT (deep vein thrombosis): Plan: Reason for warfarin use Plan VTE Prophylaxis - elevated INR on admission Diet - Low potassium, T2DM Disposition - admit to PCU Admission and Anticipated Discharge Date Admission Date: July 23, 2023 History of Present Illness Chief Complaint: Generalized fatigue and weakness Primary Care Provider: DO Elie Dickensviv Grajeda is a 53 year old male with 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 Reports generalized fatigue getting worse for the last 2 weeks but especially worse the last 2 days. He denies any respiratory or gastrointestinal symptoms. No change to his colostomy output. No abdominal pain or CVA tenderness. No recent changes to his medications. Similar lab abnormalities in February when he presented with cellulitis and JUAREZ which improved without dialysis. Allergies Allergy/AdvReac Type Severity Reaction Status Date / Time ciprofloxacin Allergy Unknown "Levels Unverified 07/23/23 17:07 were up" gluten Allergy Verified 07/23/23 17:07 sulfamethoxazole AdvReac Unknown "Levels Verified 07/23/23 17:07 [From Bactrim] were up"-per [facility] trimethoprim [From Bactrim] AdvReac Unknown "Levels Verified 07/23/23 17:07 were up"-per [facility] Home Medications Medication Instructions Recorded Confirmed Type insulin aspart U-100 100 unit/mL 0 sliding scale dose subcut TIDM 10/08/18 07/23/23 History (3 mL) subcutaneous pen (Novolog per sliding scale FlexPen U-100 Insulin aspart) famotidine 40 mg tablet (Pepcid) 40 mg PO QAM 05/27/19 07/23/23 History allopurinol 300 mg tablet 300 mg PO QAM 01/23/20 07/23/23 History carvedilol 6.25 mg tablet 6.25 mg PO BID #60 tabs 09/30/21 07/23/23 Rx clotrimazole-betamethasone 1 1 applic topical BID PRN affected 02/24/22 07/23/23 History %-0.05 % topical cream area cholecalciferol (vitamin D3) 125 125 mcg PO QAM 09/24/22 07/23/23 History mcg (5,000 unit) tablet (Vitamin D3) gabapentin 300 mg capsule 300 mg PO BID 09/24/22 07/23/23 History warfarin 2.5 mg tablet See Rx Instructions .Route .COMPLEX 09/24/22 07/23/23 History dulaglutide 1.5 mg/0.5 mL 1.5 mg subcut WK 03/09/23 07/23/23 History subcutaneous pen injector (Trulicity) insulin detemir U-100 100 unit/mL 60 unit subcut BID 03/09/23 07/23/23 History (3 mL) subcutaneous pen (Levemir FlexPen) oxycodone 30 mg tablet 30 mg PO TID 03/09/23 07/23/23 History triamcinolone acetonide 0.1 % 1 applic topical UD 03/09/23 07/23/23 History topical cream valsartan 40 mg tablet 40 mg PO QPM 03/09/23 07/23/23 History solifenacin 10 mg tablet 10 mg PO QAM 07/23/23 07/23/23 History Past Med/Surg History Medical History History of GI bleed Hx of pulmonary embolus Chronic indwelling Velazquez catheter Celiac disease Difficult airway for intubation 01/18/22 Patient unable to be intubated with Glidescope 4 - good view but unable to pass ETT, Igel #5 easily placed and worked well History of COVID-19 05/2021- no symptoms- no hospitalization History of blood transfusion 2018 in setting of GI bleed GI bleed 2018 requiring 3 blood transfusions, transferred to [facility] with work-up not revealing clear cause per records Coronary artery disease CABG x 1 2012-VG to LAD, multiple stents, follows with [place] [facility] History of endocarditis TREATED AT [facility] PRES-2012 Chronic kidney disease, stage 3a follows with [facility] Hyperlipidemia Morbid obesity Sleep apnea, organic NO DEVICE AT THIS TIME, HIS MACHINE WAS INVOLVED IN RECALL History of CVA (cerebrovascular accident) 2012-admitted [facility] Hirschsprung's disease Pulmonary hypertension Diastolic congestive heart failure EF 55-59% History of intravenous drug abuse Paraplegia Gout Hepatitis C TREATED DM type 2 (diabetes mellitus, type 2) IDDM Pulmonary emboli 05/2010-unknown cause- admitted and treated at [facility] Surgical History H/O cervical spine surgery for severe stenosis w/ myelopathy; 05/2022 - [facility] S/P ureteral stent placement 08/2022 - [facility] S/P ileostomy S/P brain surgery 2013- [facility] H/O aortic root repair 05/2016- [facility] H/O mitral valve repair UNSURE-EITHER [facility] OR [facility] S/P colostomy FOLLOWS W/ [facility] S/P cardiac cath Hx of CABG 2012 [facility] - DUE TO ENDOCARDITIS, single vessel per records Family History Father Cardiac disorder Hypertension Prostate cancer Diabetes Coronary heart disease COPD (chronic obstructive pulmonary disease) Pacemaker Mother Hypertension Skin cancer Dementia Social History Smoking Status: Unknown if ever smoked Tobacco Type: E-cigarettes / Vaping Second Hand Exposure: No; Do You Dip or Chew Tobacco: No; Hx Alcohol Use: No Hx Substance Use: Yes Last Used Substance: Unknown Preferred Language: [place] Communication Ability: Effective Communication Ability Comment: GARBLED SPEECH Director Clinical Applications Required: No Beliefs That Will Affect Care: None marital status: Single Current Living Situation: Family Current Living Situation Comment: Lives with parents and has caregivers to come and help with ADLs current occupational status: employed 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 How many Children do You have: 2 Feels Safe at Home: Yes Assistive Devices: BiPap, Mechanical Lift and Wheelchair Review of Systems Review of Systems: All systems reviewed & are unremarkable except as noted in HPI & below Physical Exam Constitutional: WD/WN, vitals as above Eyes: PERRL, conjunctivae normal, anicteric sclerae ENMT: Mouth: + dry oral mucous membranes Respiratory: normal respiratory effort, lungs clear to auscultation Cardiovascular: Rate/Rhythm: regular rate and regular rhythm Heart Sounds: no murmur Extremities: normal capillary refill; no calf tenderness Gastrointestinal (Abdomen): Inspection/Auscultation: abdomen normal to inspection; abdomen not distended Percussion/Palpation: + abdomen tender (mild around suprapubic catheter site) and abdomen soft; no guarding and abdomen not rigid Skin: small ulcer < 1cm on left thigh without surrounding cellulitic changes No areas of cellulitis noted Neurologic: awake; + does not move all extremities (chronic paraplegia) and not confused Psychiatric: A+Ox3, euthymic affect Genitourinary: no CVA tenderness Results & Data Results & Data Vital Signs (Past 12 Hours) Vital Signs Temp Pulse Pulse Resp BP BP Pulse Ox 07/23/23 17:23 135/87 07/23/23 17:23 97 H 16 100 07/23/23 17:20 101 H 21 98 07/23/23 17:10 92 H 22 99 07/23/23 17:05 89 18 98 07/23/23 17:00 89 12 98 07/23/23 16:50 90 17 97 07/23/23 16:40 93 H 19 96 07/23/23 16:30 92 H 17 94 07/23/23 16:30 119/75 07/23/23 16:23 92 H 20 97 07/23/23 16:00 91 H 23 07/23/23 16:00 106/75 07/23/23 16:00 91 H 18 106/75 99 07/23/23 15:56 115/82 07/23/23 15:00 92 H 18 115/69 96 07/23/23 14:56 98 07/23/23 14:42 36.5 C 99 H 18 98/54 L 98 07/23/23 14:42 36.5 C 99 H 18 98/54 L 98 07/23/23 14:16 98 H O2 Del Method 07/23/23 17:23 07/23/23 17:23 07/23/23 17:20 07/23/23 17:10 07/23/23 17:05 Room Air 07/23/23 17:00 07/23/23 16:50 07/23/23 16:40 07/23/23 16:30 07/23/23 16:30 07/23/23 16:23 07/23/23 16:00 07/23/23 16:00 07/23/23 16:00 Room Air 07/23/23 15:56 07/23/23 15:00 Room Air 07/23/23 14:56 Room Air 07/23/23 14:42 Room Air 07/23/23 14:42 Room Air 07/23/23 14:16 Laboratory Results Abnormal lab results 07/23/23 07/23/23 07/23/23 Range/Units 14:30 15:24 15:45 WBC 12.12 H (4.8-10.8) K/ul RBC 4.01 L (4.70-6.10) M/uL Hgb 12.5 L (14.0-18.0) g/dl Hct 39.0 L (42.0-52.0) % RDW Std Deviation 54.6 H (36.4-46.3) fL RDW Coeff of Lorenzo 15.1 H (11.5-14.5) % Neut # (Auto) 10.97 H (1.40-6.50) K/uL Lymph # (Auto) 0.67 L (1.20-3.40) K/uL PT 55.2 H (9.0-12.0) Seconds INR 5.6 H* (0.9-1.1) APTT 68.1 H* (21.0-31.0) Seconds VBG pH 7.05 L (7.36-7.41) Sodium 133 L (136-145) mmol/L Potassium 6.2 H* (3.5-5.1) mmol/L Chloride 112 H (98-107) mmol/L Carbon Dioxide 14 L (21-32) mmol/L BUN 102 H (6-23) mg/dl Creatinine 4.60 H* (0.6-1.4) mg/dl BUN/Creatinine Ratio 22.2 H (10-20) Glucose 127 H (70-99(Fasting)) mg/dl AST 7 L (13-39) U/L Alkaline Phosphatase 168 H (34-104) U/L Urine Appearance Turbid A (Clear) Urine Protein 2+ H (Negative) Urine Blood 3+ H (Negative) Ur Leukocyte Esterase 2+ H (Negative) Urine WBC (Auto) >30 H (0-5) /hpf Urine RBC (Auto) 5-10 H (0-4) /hpf U Epithel Cells (Auto) 10-20 H (0-5) /lpf Urine Bacteria (Auto) 3+ H (Negative) Diagnostic Findings HEAD CT NONCONTRAST CT DOSE: HISTORY: confusion TECHNIQUE: Multiaxial CT images of the head were performed without the use of intravenous contrast. Automated exposure control was utilized for this study. A dose lowering technique was utilized adhering to the principles of ALARA. Comparison: Head CT 02/24/2022. Findings: The paranasal sinuses and mastoid air cells are clear. The calvarium and skull base are intact. There is no mass, hematoma, midline shift, acute infarct. White matter hypodensity is nonspecific but suggestive of microvascular ischemic change. The ventricles and sulci demonstrate mild age-related involutional changes. Dante hole again noted within the right occipital bone. Right cerebellar encephalomalacia, unchanged. Old small infarcts within the bilateral parietal lobes. Impression: 1. No acute infarct or intracranial hemorrhage. 2. Old infarcts and post operative changes again noted. XR chest 1V portable HISTORY: Sepsis COMPARISON: Chest 12/02/2022. FINDINGS: There are low lung volumes, unchanged. The heart remains mildly enlarged. There are poststernotomy changes. No pleural effusions. No pneumothorax. No focal lung consolidations to suggest a pneumonia. No evidence for pulmonary edema. IMPRESSION: No significant change compared to the prior study. No acute process. ABDOMEN AND PELVIS CT WITHOUT CONTRAST CT DOSE: 2276.94 mGy.cm HISTORY: flank pain difficulty urinating TECHNIQUE: Multiaxial CT images of the abdomen and pelvis were performed without contrast. A dose lowering technique was utilized adhering to the principles of ALARA. COMPARISON STUDY: Abdomen and pelvis CT 03/09/2023. FINDINGS: Linear scarlike densities again noted within the lower lobes. There are small nodular groundglass airspace opacities within the lower lobes which ar e new from the prior study. This favors a developing pneumonia. No pneumoperitoneum. No pneumatosis. No acute fractures. There are poststernotomy changes. Cholelithiasis. The unenhanced liver, spleen, adrenal glands, and pancreas unremarkable. No retroperitoneal lymphadenopathy. Mild calcified plaque within the normal caliber abdominal aorta. Left greater than right perinephric fat stranding, unchanged. There is a hyperdense 1.5 cm left renal lesion, unchanged. Suspect a small chronic subcapsular fluid collection/old hematoma again noted within the lower pole the left kidney on image 186. This remains unchanged. There are few punctate bilateral renal calculi. No ureteral calculi. No hydronephrosis. There is gas within the right renal collecting system and right ureter. The bladder is decompressed by suprapubic catheter. Bladder wall thickening is suggested. The heart remains unchanged. No pelvic free fluid or pelvic lymphadenopathy. Postoperative changes consistent with a subtotal emiliana ctomy and right lower quadrant ileostomy. No dilated loops of bowel to suggest an obstruction. No bowel wall thickening. Small parastomal hernia the right lower quadrant with a few loops of small bowel. Tiny midline ventral hernia containing a knuckle small bowel in image 265. IMPRESSION: 1. Bilateral nephrolithiasis. No ureteral stones. No hydronephrosis. 2. There is gas within the right renal collecting system and right ureter. This is new from the prior study and could be due to the suprapubic catheter. Underlying infection is not excluded. 3. Suspect a small residual old subcapsular hematoma within the lower pole of the left kidney. This remains unchanged. No evidence for acute subcapsular/retroperitoneal hemorrhage. 4. Left perinephric fat stranding, unchanged. 5. Cholelithiasis. 6. No bowel wall thickening or obstruction. 7. There are small nodular groundglass airspace opacities within the lower lobes which are new from the prior study. This favors a developing pneumonia. 8. Additional findings as described above. Medications Administered ER Medication Given: Normal saline 500ml bolus Calcium gluconate 1000mg IV Insulin 10 units IV Dextrose 50% 50ml Zosyn 4.5g IV Vitamin K 5mg IV Sodium bicarb 50 meq IV ECG Rate (beats per minute): 97 Rhythm: normal sinus Findings: + 1st degree AV block and + PVC Comparison ECG Date: from (March 10, 2023) Change: no significant change Code Status & VTE Plan Code Status Full VTE Prophylaxis Plan VTE Prophylaxis will be ordered: No PG Care Time/CCT Total # of Minutes Spent Total Time Spent with Patient: Total time spent is greater than 50% in coordination of care (as documented) at patient's floor/unit and/or counseling patient: Coding Level of Care Code 45805 INT INP/OBS CARE 3/75MIN Diagnoses Acute kidney injury superimposed on chronic kidney disease N17.9; N18.9 Hyperkalemia E87.5 Catheter-associated urinary tract infection T83.511A; N39.0 Metabolic acidosis E87.20 Diabetes mellitus type 2, uncontrolled ANIBAL (obstructive sleep apnea) G47.33 Elevated INR R79.1 History of DVT (deep vein thrombosis) Z86.716
[2023-07-23 18:35] LABS: Base Excess VBG -15.5 mEq/L; HCO3 VBG 13 mmol/L; Oxygen Saturation VBG 67.8 %; PCO2 VBG 41 mmHg (38-50); PO2 VBG 37 mmHg; pH VBG 7.12 (7.36-7.41)
[2023-07-23 18:40] LABS: Influenza A virus by PCR Negative (Neg); Influenza B virus by PCR Negative (Neg); RSV by PCR Negative (Neg); SARS CoV2 RNA(COVID-19) Ceph NEGATIVE (Negative)
[2023-07-23 18:58] LABS: BUN Creatinine Ratio 22.8 (10-20); Creatinine Clr Calc Pharmacy 27.6 ml/min; Est GFR (African American) 17.2 ml/min; Est GFR (Non-African American) 14.9 ml/min; Potassium 5.6 mmol/L (3.5-5.1)
[2023-07-23] MEDS ORDERED: GLUCOSE 40% GEL 15 GM TUBE PO PRN (19:06)
[2023-07-23] MEDS ORDERED: GLUCOSE 10 TAB/TUBE PO PRN (19:06)
[2023-07-23] MEDS ORDERED: GLUCAGON FOR INJ 1 MG VIAL SQ PRN (19:06)
[2023-07-23] MEDS ORDERED: DEXTROSE 50% 50 ML SYRINGE IV PRN (19:06)
[2023-07-23] MEDS ORDERED: CARBOHYDRATES FOR HYPOGLYCEMIA PO PRN (19:06)
[2023-07-23] MEDS: SODIUM BICARBONATE 8.4% 150 MEQ in WATER, STERILE 1,000 ML IV SCH (19:47)
[2023-07-23] MEDS ORDERED: oxyCODONE HCL IR 30 MG TAB (IMMEDIATE RELEASE) PO SCH (21:00)
[2023-07-23] MEDS: MEROPENEM 500 MG in SYRINGE 0 ML IV SCH (21:25)
[2023-07-23] MEDS ORDERED: PLASMA-LYTE A 1,000 ML IV ONE (21:27)
[2023-07-23] MEDS: carvediloL 6.25 MG TAB PO SCH (23:08)
[2023-07-23] MEDS: GABAPENTIN 300 MG CAP PO SCH (23:09)
[2023-07-23] MEDS: LANTUS PER UNIT CHARGE SQ SCH (23:09)
[2023-07-23] MEDS: INSULIN ASPART PER UNIT CHARGE SC SCH (23:09)
[2023-07-23] MEDS: SODIUM ZIRCONIUM CYCLOSILICATE 10 GM PACKET PO SCH (23:13)
[2023-07-24] MEDS: oxyCODONE HCL IR 5 MG TAB (IMMEDIATE RELEASE) PO SCH ×3 (00:13→19:25)
[2023-07-24] MEDS: SODIUM BICARBONATE 8.4% 150 MEQ in WATER, STERILE 1,000 ML IV SCH ×2 (04:51→13:59)
[2023-07-24] MEDS: MEROPENEM 500 MG in SYRINGE 0 ML IV SCH ×3 (04:51→21:45)
[2023-07-24 07:08] LABS: Base Excess VBG -9.7 mEq/L; HCO3 VBG 17 mmol/L; PCO2 VBG 40 mmHg (38-50); PO2 VBG 65 mmHg; pH VBG 7.24 (7.36-7.41)
[2023-07-24 07:25] LABS: Basophils # (auto) 0.04 K/uL (0.00-0.20); Basophils % (auto) 0.4 %; Eosinophils % (auto) 2.8 %; Hematocrit (blood only) 30.6 % (42.0-52.0); Hemoglobin 10.2 g/dl (14.0-18.0); Immature Granulocytes # (auto) 0.04 K/uL (0.01-0.20); Immature Granulocytes % (auto) 0.4 %; Lymphocytes # (auto) 0.72 K/uL (1.20-3.40); Lymphocytes % (auto) 6.8 %; Mean Corpuscular Hemoglobin 31.2 pg (25.0-34.0); Mean Corpuscular Hgb Conc 33.3 g/dL (32.0-36.0); Mean Corpuscular Volume 93.6 fL (80.0-100.0); Mean Platelet Volume 10.5 fL (9.4-12.4); Monocytes % (auto) 3.8 %; Neutrophils # (auto) 9.04 K/uL (1.40-6.50); Neutrophils % (auto) 85.8 %; Platelet Count 154 K/uL (130-400); RDW Coefficient of Variation 14.6 % (11.5-14.5); RDW Standard Deviation 50.4 fL (36.4-46.3); Red Blood Count 3.27 M/uL (4.70-6.10); White Blood Count 10.54 K/ul (4.8-10.8)
[2023-07-24 07:38] LABS: INR 1.4 (0.9-1.1); Prothrombin Time 15.5 Seconds (9.0-12.0)
[2023-07-24 08:00] LABS: Albumin Globulin Ratio 0.9 (0.9-2); BUN Creatinine Ratio 26.7 (10-20); Bilirubin,Total 1.5 mg/dl (0.2-1.0); Calcium 8.8 mg/dl (8.6-10.3); Creatinine Clr Calc Pharmacy 35.9 ml/min; Est GFR (African American) 23.7 ml/min; Est GFR (Non-African American) 20.5 ml/min; Globulin 3.2 gm/dl (2.5-4.0); Potassium 4.7 mmol/L (3.5-5.1); Total Protein 6.2 gm/dl (6.0-8.3)
[2023-07-24 08:19] LABS: Estimated Average Glucose 166 mg/dl; Hemoglobin A1C 7.4 % (4.5-5.6)
--- NOTE | 2023-07-24 09:05 | XRay Report ---
XR chest 1V portable HISTORY: hypoxia COMPARISON: Chest 07/23/2023. FINDINGS: There are low lung volumes. The heart remains enlarged. There are poststernotomy changes. C ervical spinal fusion hardware is partially visualized. No new focal lung consolidations to suggest a pneumonia. No evidence for pulmonary edema. No acute fractures identified. Stable mild focal narrowi ng within the proximal trachea. IMPRESSION: No significant change compared to the prior study. No acute process. ACT 112: Negative or not required by law. Electronically signed by: Ronnie Abad M.D. 07/24/2023 9:03 AM
[2023-07-24] MEDS: INSULIN ASPART PER UNIT CHARGE SC SCH ×4 (09:37→21:24)
[2023-07-24] MEDS: SODIUM ZIRCONIUM CYCLOSILICATE 10 GM PACKET PO SCH ×3 (09:39→23:26)
[2023-07-24] MEDS: GABAPENTIN 300 MG CAP PO SCH ×2 (09:44→20:52)
[2023-07-24] MEDS: LANTUS PER UNIT CHARGE SQ SCH ×2 (09:44→21:28)
[2023-07-24] MEDS: carvediloL 6.25 MG TAB PO SCH ×2 (09:44→20:52)
[2023-07-24] MEDS: CHOLECALCIFEROL 5,000 UNITS 125 MCG TAB PO SCH (09:44)
[2023-07-24] MEDS: FAMOTIDINE 40 MG TABLET PO SCH (09:44)
[2023-07-24] MEDS: allopurinoL 300 MG TAB PO SCH (09:44)
[2023-07-24] MEDS: OXYBUTYNIN CHLORIDE XL 5 MG TABCR PO SCH (09:45)
--- NOTE | 2023-07-24 12:34 | Electrocardiogram Report ---
Test Reason : Blood Pressure : / mmHG Vent. Rate : 097 BPM Atrial Rate : 097 BPM P-R Int : 270 ms QRS Dur : 088 ms QT Int : 322 ms P-R-T Axes : 043 022 072 degrees QTc Int : 408 ms Sinus rhythm with 1st degree A-V block with occasional Premature ventricular complexes Nonspecific T wave abnormality Abnormal ECG When compared with ECG of 10-MAR-2023 06:16, ND interval has increased Nonspecific T wave abnormality no longer evident in Anterior leads QT has lengthened Confirmed by Fish Condon ([id number]) on 07/24/2023 12:33:58 PM Referred By: Confirmed By:Fish Condon
--- NOTE | 2023-07-24 12:47 | Nephrology Consultation ---
Date of Consultation July 24, 2023 Assessment & Plan (1) Acute kidney injury superimposed on chronic kidney disease: (2) Hyperkalemia: (3) Metabolic acidosis: (4) Diabetes mellitus type 2, uncontrolled: Plan 53 y o M with complex PMH, stage 3A CKD, DM, paraplegia, morbid obesity admitted with generalized weakness, concern for decreased UO, JUAREZ, hyperkalemia and metabolic acidosis. JUAREZ could be secondary to prerenal etiology, renal imaging was otherwise unremarkable for any postrenal obstruction. Patient, electrolyte abnormality improving. UO seems to have improved. --continue on IV bicarb drip, encouraged po intake --continue to hold Valsartan for now, if future he may need to be on K binder when ARB resumed --Monitor intake output --high risk for CKD progression with repeated episodes of JUAREZ and multiple risk factors Thank you for allowing me to participate in your patient's care. It was a pleasure to see Hema. History of Present Illness Reason for Consultation: JUAREZ, Hyperkalemia, metabolic acidosis Attending Physician: Dk Goncalves History of Present Illness Mr. 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 Electronic medical records are reviewed in detail in patient's visit. Hema presented to the ER yesterday with fever, generalized fatigue, decreased urine and dark urine for the last few days. Lab on admission showed creatinine 4.6, potassium 6.2 and bicarb of 14. Clinically there is no sign of volume overload. Blood pressure was relatively low initially. Did not have any chest pain or respiratory distress. Denied NSAID use. Was on Valsartan 40 mg/d. Urinalysis with no proteinuria with chronic indwelling Velazquez catheter CT abdomen pelvis showed no postrenal obstruction but there was concern for gas in right ureter possibly because of suprapubic catheter. Since then he has been making urine. Was started on IV normal saline bolus and then continued on bicarb drip. Was treated with insulin, bicarb, calcium gluconate and Lokelma. Repeat labs showed potassium improved. Lab this morning showed potassium normalized at 4.6, creatinine improved to 3.3 and bicarb 18. Has been making decent amount of urine. He was admitted in February with cellulitis when he had JUAREZ and hyperkalemia, labs were quite similar to current presentation and kidney function improved rapidly. Hema has a complicated medical history. 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 In 2013, he was hospitalized with infective endocarditics complicated by cranial abscess requiring craniotomy and drainage. CT surgery completed at that time for drainage and valve repair. He underwent mitral valve repair with autologous pericardial patch in 2015. Has paraplegia with chronic right hemiparesis from CVA. Morbid obesity and uncontrolled DM and coronary artery disease s/p VG to LAD bypass and multiple PCI with stents. He uses BIPAP for ANIBAL and is maintained on allopurinol for a history of gout. He is anticoagulated for a history of DVT. He has Hirschsprung's disease with chronic ileostomy. He has a chronic indwelling suprapubic catheter and history of recurrent UTI. Hema has been opiate dependent for management of chronic pain. In September 2022, he had kidney biopsy and ablation of a renal mass which was complicated by post procedure hemorrhage with bleeding. Pathology was reassuring. He reports feeling better this morning although still feels fatigued. Renal function and electrolyte improved. Denies shortness of breath. Blood pressure relatively low but asymptomatic. Allergies Allergy/AdvReac Type Severity Reaction Status Date / Time ciprofloxacin Allergy Unknown "Levels Unverified 07/23/23 17:07 were up" gluten Allergy Verified 07/23/23 17:07 sulfamethoxazole AdvReac Unknown "Levels Verified 07/23/23 17:07 [From Bactrim] were up[facility] trim[facility]oprim [From Bactrim] AdvReac Unknown "Levels Verified 07/23/23 17:07 were up"-[facility] Home Medications Medication Instructions Recorded Confirmed Type insulin aspart U-100 100 unit/mL 0 sliding scale dose subcut TIDM 10/08/18 07/23/23 History (3 mL) subcutaneous pen (Novolog per sliding scale FlexPen U-100 Insulin aspart) famotidine 40 mg tablet (Pepcid) 40 mg PO QAM 05/27/19 07/23/23 History allopurinol 300 mg tablet 300 mg PO QAM 01/23/20 07/23/23 History carvedilol 6.25 mg tablet 6.25 mg PO BID #60 tabs 09/30/21 07/23/23 Rx clotrimazole-betamethasone 1 1 applic topical BID PRN affected 02/24/22 07/23/23 History %-0.05 % topical cream area cholecalciferol (vitamin D3) 125 125 mcg PO QAM 09/24/22 07/23/23 History mcg (5,000 unit) tablet (Vitamin D3) gabapentin 300 mg capsule 300 mg PO BID 09/24/22 07/23/23 History warfarin 2.5 mg tablet See Rx Instructions .Route .COMPLEX 09/24/22 07/23/23 History dulaglutide 1.5 mg/0.5 mL 1.5 mg subcut WK 03/09/23 07/23/23 History subcutaneous pen injector (Trulicity) insulin detemir U-100 100 unit/mL 60 unit subcut BID 03/09/23 07/23/23 History (3 mL) subcutaneous pen (Levemir FlexPen) oxycodone 30 mg tablet 30 mg PO TID 03/09/23 07/23/23 History triamcinolone acetonide 0.1 % 1 applic topical UD 03/09/23 07/23/23 History topical cream valsartan 40 mg tablet 40 mg PO QPM 03/09/23 07/23/23 History solifenacin 10 mg tablet 10 mg PO QAM 07/23/23 07/23/23 History Patient History Medical History History of GI bleed Hx of pulmonary embolus Chronic indwelling Velazquez catheter Celiac disease Difficult airway for intubation 01/18/22 Patient unable to be intubated with Glidescope 4 - good view but unable to pass ETT, Igel #5 easily placed and worked well History of COVID-19 05/2021- no symptoms- no hospitalization History of blood transfusion 2018 in setting of GI bleed GI bleed 2018 requiring 3 blood transfusions, transferred to [facility] with work-up not revealing clear cause per records Coronary artery disease CABG x 1 2012-VG to LAD, multiple stents, follows with [facility] History of endocarditis TREATED AT [facility]-2012 Chronic kidney disease, stage 3a follows with [facility] Hyperlipidemia Morbid obesity Sleep apnea, organic NO DEVICE AT THIS TIME, HIS MACHINE WAS INVOLVED IN RECALL History of CVA (cerebrovascular accident) 2012-admitted [facility] Hirschsprung's disease Pulmonary hypertension Diastolic congestive heart failure EF 55-59% History of intravenous drug abuse Paraplegia Gout Hepatitis C TREATED DM type 2 (diabetes mellitus, type 2) IDDM Pulmonary emboli 05/2010-unknown cause- admitted and treated at [facility] Surgical History H/O cervical spine surgery for severe stenosis w/ myelopathy; [facility] 08/2022 - [facility] S/P ileostomy S/P brain surgery 2013- [facility] H/O aortic root repair 05/2016- [facility] H/O mitral valve repair UNSURE-EITHER [facility] OR [facility] S/P colostomy FOLLOWS W/ [facility] S/P cardiac cath Hx of CABG 2012 [facility]- DUE TO ENDOCARDITIS, single vessel per records Family History Father Cardiac disorder Hypertension Prostate cancer Diabetes Coronary heart disease COPD (chronic obstructive pulmonary disease) Pacemaker Mother Hypertension Skin cancer Dementia Social History Smoking Status: Unknown if ever smoked Tobacco Type: E-cigarettes / Vaping Second Hand Exposure: No; Do You Dip or Chew Tobacco: No; Hx Alcohol Use: No Hx Substance Use: Yes Last Used Substance: Unknown Preferred Language: Kiswahili Communication Ability: Effective Communication Ability Comment: NELDA SPEECH Mental [facility] Advanced Practice Nurse Required: No Beliefs That Will Affect Care: None marital status: Single Current Living Situation: Family Current Living Situation Comment: Lives with parents and has caregivers to come and help with ADLs current occupational status: employed 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 Physical Exam Constitutional: WD/WN, vitals as above + ill appearing and + morbidly obese; no acute distress Eyes: + anicteric sclerae Neck: normal visual inspection Respiratory: no respiratory distress Auscultation: + diminished lung sounds; no crackles and no wheezes Cardiovascular: Rate/Rhythm: regular rate and regular rhythm Heart Sounds: normal S1 and normal S2 Extremities: + edema Gastrointestinal (Abdomen): Obese, non tender Musculoskeletal: no joint swelling, erythema Skin: no rashes, warm and dry Neurologic: paraplegic, speech normal Psychiatric: Orientation: alert and oriented x 3 Affect: euthymic affect Results & Data Vital Signs (Past 12 Hours) Vital Signs Pulse Pulse Resp BP BP Pulse Ox O2 Del Method 07/24/23 12:00 90 14 102/63 92 Room Air 07/24/23 09:37 85 16 103/74 99 Room Air 07/24/23 07:18 86 07/24/23 05:06 86 15 92/51 L 98 BiPAP 07/24/23 03:00 91 H 20 99 07/24/23 02:50 90 28 H 99 07/24/23 02:40 82 13 100 07/24/23 02:39 93 H 17 100 07/24/23 02:30 91 H 14 100 07/24/23 02:20 92 H 14 96 07/24/23 02:10 93 H 18 92 07/24/23 02:00 93 H 17 94 07/24/23 02:00 102/70 07/24/23 01:53 95/62 L 07/24/23 01:53 96 H 17 95 07/24/23 01:50 93 H 16 92 07/24/23 01:40 93 H 16 93 07/24/23 01:30 94 H 14 95 07/24/23 01:20 93 H 13 95 07/24/23 01:10 94 H 19 97 07/24/23 01:01 89 13 96 07/24/23 01:01 97/59 L 07/24/23 01:00 92 H 17 100 07/24/23 00:54 93 H 07/24/23 00:50 91 H 18 97 FiO2 07/24/23 12:00 07/24/23 09:37 07/24/23 07:18 07/24/23 05:06 07/24/23 03:00 07/24/23 02:50 07/24/23 02:40 07/24/23 02:39 30 07/24/23 02:30 07/24/23 02:20 07/24/23 02:10 07/24/23 02:00 07/24/23 02:00 07/24/23 01:53 07/24/23 01:53 07/24/23 01:50 07/24/23 01:40 07/24/23 01:30 07/24/23 01:20 07/24/23 01:10 07/24/23 01:01 07/24/23 01:01 07/24/23 01:00 07/24/23 00:54 07/24/23 00:50 PG Care Time/CCT Total # of Minutes Spent Total Time Spent with Patient: Total time spent is greater than 50% in coordination of care (as documented) at patient's floor/unit and/or counseling patient: Coding Level of Care Code 42868 IN/OBS CONSULT LVL 5,80M Diagnoses Acute kidney injury superimposed on chronic kidney disease N17.9; N18.9 Hyperkalemia E87.5 Metabolic acidosis E87.20 Diabetes mellitus type 2, uncontrolled
[2023-07-24] MEDS: ONDANSETRON INJ 2 MG/ML 2 ML VIAL IV PRN (19:53)
[2023-07-24] MEDS ORDERED: PROCHLORPERAZINE 5 MG in SYRINGE 4 ML IV ONE (22:15)
--- NOTE | 2023-07-24 22:28 | Hospitalist Progress Note ---
Date of Service July 24, 2023 Assessment & Plan (1) Acute kidney injury superimposed on chronic kidney disease: Plan: Suspect mostly pre-renal with underlying infection and hypotension, no evidence of underlying cellulitis from prior admissions No post obstructive cause seen on CT IV fluids with sodium bicarb up until pH/bicarb corrected then switch to Plasma- lyte or LR Hold Valsartan consulted nephro: appreciate input (2) Hyperkalemia: Plan: Emergent treatment given in the ER (insulin/dxtrose, sodium bicarb 50 meq, Calcium gluconate, Lokelma) with good response K 6.2 -> 4 improved (3) Catheter-associated urinary tract infection: Plan: Hx of ESBL Proteus therefore will use meropenem IV for empiric coverage pending urine and blood culture results (4) Metabolic acidosis: Plan: Sodium bicarb @ 150ml/hr for 3 bags. then will transition to LR. (5) Diabetes mellitus type 2, uncontrolled: Plan: Hemoglobin A1C 7.0 in February, repeat with AM labs Hold outpatient insulin - usually requires much less than his outpatient dosing in hospital Start Lantus 15 units BID Novolog: --Goal BSG Range: Low 110 mg/dL, High 140 mg/dL --Correction Factor: 15 mg/dL/unit --Carbohydrate ratio = 6 g/unit --BSGs ACHS if eating, q6h if npo (6) ANIBAL (obstructive sleep apnea): Plan: BiPAP HS and while napping (7) Elevated INR: Plan: Suspect from warfarin in setting of renal failure Vitamin K 5mg IV given in the ER Repeat with AM labs (8) History of DVT (deep vein thrombosis): Plan: Reason for warfarin use Plan VTE Prophylaxis - elevated INR on admission Diet - Low potassium, T2DM Disposition - admit to PCU Admission and Anticipated Discharge Date Admission Date: July 23, 2023 Subjective Patient reports no new symptoms. Review of Systems Review of Systems: All systems reviewed & are unremarkable except as noted in HPI & below Physical Exam Constitutional: WD/WN, vitals as above Eyes: PERRL, conjunctivae normal, anicteric sclerae ENMT: Mouth: + dry oral mucous membranes Respiratory: normal respiratory effort, lungs clear to auscultation Cardiovascular: Rate/Rhythm: regular rate and regular rhythm Heart Sounds: no murmur Extremities: normal capillary refill; no calf tenderness Gastrointestinal (Abdomen): Inspection/Auscultation: abdomen normal to inspection; abdomen not distended Percussion/Palpation: + abdomen tender (mild around suprapubic catheter site) and abdomen soft; no guarding and abdomen not rigid Skin: small ulcer < 1cm on left thigh without surrounding cellulitic changes No areas of cellulitis noted Neurologic: awake; + does not move all extremities (chronic paraplegia) and not confused Psychiatric: A+Ox3, euthymic affect Genitourinary: no CVA tenderness Results & Data Results & Data Vital Signs (Past 12 Hours) Vital Signs Temp Pulse Pulse Resp BP Pulse Ox O2 Del Method 07/24/23 21:58 Room Air 07/24/23 19:07 36.3 C L 87 20 126/82 94 Room Air 07/24/23 18:40 36.7 C 86 22 123/80 88 L Room Air 07/24/23 17:56 85 20 103/68 98 CPAP 07/24/23 15:57 88 07/24/23 15:02 88 15 157/81 H 98 CPAP 07/24/23 14:09 87 11 L 108/84 93 Room Air 07/24/23 12:00 90 14 102/63 92 Room Air PG Care Time/CCT Total # of Minutes Spent Total Time Spent with Patient: Total time spent is greater than 50% in coordination of care (as documented) at patient's floor/unit and/or counseling patient: Coding Level of Care Code 52339 SUB INP/OBS CARE 2/35MIN Diagnoses Acute kidney injury superimposed on chronic kidney disease N17.9; N18.9 Hyperkalemia E87.5 Catheter-associated urinary tract infection T83.511A; N39.0 Metabolic acidosis E87.20 Diabetes mellitus type 2, uncontrolled ANIBAL (obstructive sleep apnea) G47.33 Elevated INR R79.1 History of DVT (deep vein thrombosis) Z86.718
[2023-07-24] MEDS: LACTATED RINGER'S 1,000 ML IV SCH (23:25)
[2023-07-25] MEDS: oxyCODONE HCL IR 5 MG TAB (IMMEDIATE RELEASE) PO SCH ×4 (04:25→21:38)
[2023-07-25] MEDS: MEROPENEM 500 MG in SYRINGE 0 ML IV SCH ×3 (04:32→20:07)
[2023-07-25 07:19] LABS: Hematocrit (blood only) 30.3 % (42.0-52.0); Hemoglobin 10.1 g/dl (14.0-18.0); Mean Corpuscular Hemoglobin 31.2 pg (25.0-34.0); Mean Corpuscular Hgb Conc 33.3 g/dL (32.0-36.0); Mean Corpuscular Volume 93.5 fL (80.0-100.0); Mean Platelet Volume 10.4 fL (9.4-12.4); Platelet Count 155 K/uL (130-400); RDW Coefficient of Variation 14.6 % (11.5-14.5); RDW Standard Deviation 50.4 fL (36.4-46.3); Red Blood Count 3.24 M/uL (4.70-6.10); White Blood Count 10.45 K/ul (4.8-10.8)
[2023-07-25 07:51] LABS: INR 1.4 (0.9-1.1); Prothrombin Time 14.9 Seconds (9.0-12.0)
[2023-07-25 07:53] LABS: BUN Creatinine Ratio 31.5 (10-20); Creatinine Clr Calc Pharmacy 50.2 ml/min; Est GFR (African American) 36.4 ml/min; Est GFR (Non-African American) 31.4 ml/min; Potassium 4.2 mmol/L (3.5-5.1)
[2023-07-25] MEDS: INSULIN ASPART PER UNIT CHARGE SC SCH ×4 (08:32→21:37)
[2023-07-25] MEDS: LANTUS PER UNIT CHARGE SQ SCH ×2 (08:33→21:37)
[2023-07-25] MEDS: allopurinoL 300 MG TAB PO SCH (08:34)
[2023-07-25] MEDS: OXYBUTYNIN CHLORIDE XL 5 MG TABCR PO SCH (08:34)
[2023-07-25] MEDS: FAMOTIDINE 40 MG TABLET PO SCH (08:34)
[2023-07-25] MEDS: carvediloL 6.25 MG TAB PO SCH ×3 (08:34→17:58)
[2023-07-25] MEDS: GABAPENTIN 300 MG CAP PO SCH ×2 (08:35→19:53)
[2023-07-25] MEDS: CHOLECALCIFEROL 5,000 UNITS 125 MCG TAB PO SCH (08:35)
[2023-07-25] MEDS: ONDANSETRON INJ 2 MG/ML 2 ML VIAL IV PRN ×2 (08:44→12:32)
[2023-07-25] MEDS: SODIUM ZIRCONIUM CYCLOSILICATE 10 GM PACKET PO SCH ×2 (11:18→17:57)
--- NOTE | 2023-07-25 12:27 | Nephrology Progress Note ---
Date of Service July 25, 2023 Assessment & Plan (1) Acute kidney injury superimposed on chronic kidney disease: (2) Hyperkalemia: (3) Metabolic acidosis: (4) Diabetes mellitus type 2, uncontrolled: Plan 53 y o M with complex PMH, stage 3A CKD, DM, paraplegia, morbid obesity admitted with generalized weakness, concern for decreased UO, JUAREZ, hyperkalemia and metabolic acidosis. JUAREZ could be secondary to prerenal etiology, renal imaging was otherwise unremarkable for any postrenal obstruction. Renal function continues to improve, creatinine down to 2.3 mg/dl, potassium normalized and bicarb improved. --Recommend stopping IV fluids, encouraged po intake --continue to hold Valsartan for now, if future he may need to be on K binder when ARB resumed --Monitor intake output, renal function and electrolytes daily while inpatient --high risk for CKD progression with repeated episodes of JUAREZ and multiple risk factors Admission and Anticipated Discharge Date Admission Date: July 23, 2023 Jefferson Garrido was seen and evaluated this morning. He has been feeling well, denies any specific symptoms. Renal function continues to improve, creatinine down to 2.3, electrolyte abnormality corrected. Blood pressure fair. Decent urine output. Review of Systems Review of Systems: Detail ROS was unremarkable. Physical Exam Constitutional: WD/WN, vitals as above + morbidly obese; no acute distress Eyes: + anicteric sclerae Respiratory: no respiratory distress Auscultation: + diminished lung sounds; no crackles and no wheezes Cardiovascular: Rate/Rhythm: regular rate and regular rhythm Heart Sounds: normal S1 and normal S2 Extremities: + edema Skin: no rashes, warm and dry Psychiatric: Orientation: alert and oriented x 3 Affect: euthymic affect Results & Data Vital Signs (Past 12 Hours) Vital Signs Temp Pulse Pulse Resp BP Pulse Ox O2 Del Method 07/25/23 10:56 36.7 C 99 H 17 108/71 92 Room Air 07/25/23 07:27 36.5 C 95 H 20 115/75 92 Room Air 07/25/23 04:56 94 H 18 97 07/25/23 03:25 36.5 C 86 18 114/79 98 Room Air FiO2 07/25/23 10:56 07/25/23 07:27 07/25/23 04:56 30 07/25/23 03:25 PG Care Time/CCT Total # of Minutes Spent Total Time Spent with Patient: Total time spent is greater than 50% in coordination of care (as documented) at patient's floor/unit and/or counseling patient: Coding Level of Care Code 73872 SUB INP/OBS CARE 3/50MIN Diagnoses Acute kidney injury superimposed on chronic kidney disease N17.9; N18.9 Hyperkalemia E87.5 Metabolic acidosis E87.20 Diabetes mellitus type 2, uncontrolled
[2023-07-25] MEDS: LACTATED RINGER'S 1,000 ML IV SCH (12:33)
[2023-07-25] MEDS ORDERED: METOCLOPRAMIDE HCL INJ 5 MG/ML 2 ML VIAL IV ONE (18:01)
--- NOTE | 2023-07-25 22:37 | Hospitalist Progress Note ---
Date of Service July 25, 2023 Assessment & Plan (1) Acute kidney injury superimposed on chronic kidney disease: Plan: Suspect mostly pre-renal with underlying infection and hypotension, no evidence of underlying cellulitis from prior admissions No post obstructive cause seen on CT IV fluids with sodium bicarb up until pH/bicarb corrected then switch to Plasma- lyte or LR Hold Valsartan consulted nephro: appreciate input (2) Hyperkalemia: Plan: Emergent treatment given in the ER (insulin/dxtrose, sodium bicarb 50 meq, Calcium gluconate, Lokelma) with good response K 6.2 -> 4 improved (3) Catheter-associated urinary tract infection: Plan: Hx of ESBL Proteus therefore will use meropenem IV for empiric coverage pending urine and blood culture results (4) Metabolic acidosis: Plan: Sodium bicarb @ 150ml/hr for 3 bags. then will transition to LR. (5) Diabetes mellitus type 2, uncontrolled: Plan: Hemoglobin A1C 7.0 in February, repeat with AM labs Hold outpatient insulin - usually requires much less than his outpatient dosing in hospital Start Lantus 15 units BID Novolog: --Goal BSG Range: Low 110 mg/dL, High 140 mg/dL --Correction Factor: 15 mg/dL/unit --Carbohydrate ratio = 6 g/unit --BSGs ACHS if eating, q6h if npo (6) ANIBAL (obstructive sleep apnea): Plan: BiPAP HS and while napping (7) Elevated INR: Plan: Suspect from warfarin in setting of renal failure Vitamin K 5mg IV given in the ER (8) History of DVT (deep vein thrombosis): Plan: Reason for warfarin use Plan VTE Prophylaxis - elevated INR on admission Diet - Low potassium, T2DM Disposition - admit to PCU Admission and Anticipated Discharge Date Admission Date: July 23, 2023 Subjective 53 yo male reports no new symptoms. Review of Systems Review of Systems: All systems reviewed & are unremarkable except as noted in HPI & below Physical Exam Constitutional: WD/WN, vitals as above Eyes: PERRL, conjunctivae normal, anicteric sclerae ENMT: Mouth: + dry oral mucous membranes Respiratory: normal respiratory effort, lungs clear to auscultation Cardiovascular: Rate/Rhythm: regular rate and regular rhythm Heart Sounds: no murmur Extremities: normal capillary refill; no calf tenderness Gastrointestinal (Abdomen): Inspection/Auscultation: abdomen normal to inspection; abdomen not distended Percussion/Palpation: + abdomen tender (mild around suprapubic catheter site) and abdomen soft; no guarding and abdomen not rigid Neurologic: awake; + does not move all extremities (chronic paraplegia) and not confused Psychiatric: A+Ox3, euthymic affect Genitourinary: no CVA tenderness Results & Data Results & Data Vital Signs (Past 12 Hours) Vital Signs Temp Pulse Resp BP Pulse Ox O2 Del Method 07/25/23 19:18 36.6 C 93 H 22 143/78 H 95 Room Air 07/25/23 17:59 94 H 07/25/23 15:44 36.6 C 51 L 17 145/84 H 94 Room Air 07/25/23 10:56 36.7 C 99 H 17 108/71 92 Room Air PG Care Time/CCT Total # of Minutes Spent Total Time Spent with Patient: Total time spent is greater than 50% in coordination of care (as documented) at patient's floor/unit and/or counseling patient: Coding Level of Care Code 76132 SUB INP/OBS CARE 2/35MIN Diagnoses Acute kidney injury superimposed on chronic kidney disease N17.9; N18.9 Hyperkalemia E87.5 Catheter-associated urinary tract infection T83.511A; N39.0 Metabolic acidosis E87.20 Diabetes mellitus type 2, uncontrolled ANIBAL (obstructive sleep apnea) G47.33 Elevated INR R79.1 History of DVT (deep vein thrombosis) Z86.600
[2023-07-26] MEDS: LACTATED RINGER'S 1,000 ML IV SCH (01:14)
[2023-07-26] MEDS: MEROPENEM 500 MG in SYRINGE 0 ML IV SCH (04:49)
[2023-07-26 07:30] LABS: Hematocrit (blood only) 28.8 % (42.0-52.0); Hemoglobin 9.6 g/dl (14.0-18.0); Mean Corpuscular Hemoglobin 31.2 pg (25.0-34.0); Mean Corpuscular Hgb Conc 33.3 g/dL (32.0-36.0); Mean Corpuscular Volume 93.5 fL (80.0-100.0); Mean Platelet Volume 10.1 fL (9.4-12.4); Platelet Count 148 K/uL (130-400); RDW Coefficient of Variation 14.3 % (11.5-14.5); RDW Standard Deviation 48.4 fL (36.4-46.3); Red Blood Count 3.08 M/uL (4.70-6.10); White Blood Count 8.55 K/ul (4.8-10.8)
[2023-07-26 07:52] LABS: BUN Creatinine Ratio 27.7 (10-20); C Reactive Protein 8.03 mg/dl (0-0.5); Calcium 8.8 mg/dl (8.6-10.3); Creatinine Clr Calc Pharmacy 65.8 ml/min; Est GFR (African American) 50.4 ml/min; Est GFR (Non-African American) 43.5 ml/min; Potassium 4.7 mmol/L (3.5-5.1)
[2023-07-26 08:04] LABS: INR 1.8 (0.9-1.1); Prothrombin Time 18.8 Seconds (9.0-12.0)
[2023-07-26] MEDS: oxyCODONE HCL IR 5 MG TAB (IMMEDIATE RELEASE) PO SCH ×3 (08:21→20:55)
[2023-07-26] MEDS: CHOLECALCIFEROL 5,000 UNITS 125 MCG TAB PO SCH (08:22)
[2023-07-26] MEDS: allopurinoL 300 MG TAB PO SCH (08:22)
[2023-07-26] MEDS: carvediloL 6.25 MG TAB PO SCH ×2 (08:22→18:31)
[2023-07-26] MEDS: GABAPENTIN 300 MG CAP PO SCH ×2 (08:22→20:55)
[2023-07-26] MEDS: FAMOTIDINE 40 MG TABLET PO SCH (08:22)
[2023-07-26] MEDS: INSULIN ASPART PER UNIT CHARGE SC SCH ×4 (08:22→20:56)
[2023-07-26] MEDS: OXYBUTYNIN CHLORIDE XL 5 MG TABCR PO SCH (08:22)
[2023-07-26] MEDS: LANTUS PER UNIT CHARGE SQ SCH ×2 (08:23→20:56)
--- NOTE | 2023-07-26 10:44 | Nephrology Progress Note ---
Date of Service July 26, 2023 Assessment & Plan (1) Acute kidney injury superimposed on chronic kidney disease: (2) Hyperkalemia: (3) Metabolic acidosis: (4) Diabetes mellitus type 2, uncontrolled: Plan 53 y o M with complex PMH, stage 3A CKD, DM, paraplegia, morbid obesity admitted with generalized weakness, concern for decreased UO, JUAREZ, hyperkalemia and metabolic acidosis. JUAREZ could be secondary to prerenal etiology, renal imaging was otherwise unremarkable for any postrenal obstruction. Renal function continues to improve, creatinine down to 1.8 mg/dl, potassium normalized and bicarb improved. --resume Valsartan for now, follow low K diet --Monitor intake output, renal function and electrolytes daily while inpatient --high risk for CKD progression with repeated episodes of JUAREZ and multiple risk factors Admission and Anticipated Discharge Date Admission Date: July 23, 2023 Jefferson Garrido was seen and evaluated this morning. He has been feeling well, denies any specific symptoms. Renal function continues to improve, creatinine down to 1.8 mg/dl, electrolyte abnormality corrected. Blood pressure fair. Decent urine output. Review of Systems Review of Systems: Detail ROS was unremarkable. Physical Exam Constitutional: WD/WN, vitals as above + morbidly obese; no acute distress Eyes: + anicteric sclerae Respiratory: no respiratory distress Auscultation: + diminished lung sounds; no crackles and no wheezes Cardiovascular: Rate/Rhythm: regular rate and regular rhythm Heart Sounds: normal S1 and normal S2 Extremities: + edema Skin: no rashes, warm and dry Psychiatric: Orientation: alert and oriented x 3 Affect: euthymic affect Results & Data Vital Signs (Past 12 Hours) Vital Signs Temp Pulse Pulse Resp BP Pulse Ox O2 Del Method 07/26/23 07:30 36.4 C L 96 H 22 148/66 H 95 Room Air 07/26/23 02:59 36.3 C L 95 H 20 150/82 H 95 Room Air 07/25/23 23:55 93 H 07/25/23 22:59 36.9 C 95 H 20 118/59 L 91 Room Air PG Care Time/CCT Total # of Minutes Spent Total Time Spent with Patient: Total time spent is greater than 50% in coordination of care (as documented) at patient's floor/unit and/or counseling patient: Coding Level of Care Code 64971 SUB INP/OBS CARE MIN Diagnoses Acute kidney injury superimposed on chronic kidney disease N17.9; N18.9 Hyperkalemia E87.5 Metabolic acidosis E87.20 Diabetes mellitus type 2, uncontrolled
[2023-07-26] MEDS: ERTAPENEM SODIUM 1,000 MG in SYRINGE 0 ML IV SCH (13:06)
[2023-07-26] MEDS: VALSARTAN 80 MG TAB PO SCH (13:07)
[2023-07-26] MEDS ORDERED: METOCLOPRAMIDE HCL INJ 5 MG/ML 2 ML VIAL IV PRN (17:17)
[2023-07-26] MEDS ORDERED: METOCLOPRAMIDE HCL INJ 5 MG/ML 2 ML VIAL IV ONE (17:17)
--- NOTE | 2023-07-26 22:21 | Hospitalist Progress Note ---
Date of Service July 26, 2023 Assessment & Plan (1) Acute kidney injury superimposed on chronic kidney disease: Plan: Suspect mostly pre-renal with underlying infection and hypotension, no evidence of underlying cellulitis from prior admissions No post obstructive cause seen on CT IV fluids with sodium bicarb up until pH/bicarb corrected then switched to LR IVF stoped on 07/26 Valsartan resumed consulted nephro: appreciate input Nausea may be secondary to uremia vs gastroparesis. will monitor (2) Hyperkalemia: Plan: Emergent treatment given in the ER (insulin/dxtrose, sodium bicarb 50 meq, Calcium gluconate, Lokelma) with good response K 6.2 -> 4 improved (3) Catheter-associated urinary tract infection: Plan: Hx of ESBL Proteus therefore will use meropenem IV for empiric coverage pending urine and blood culture results; switched to ertapenem ordered to exchange catheter on 07/26 will need to verify exchange (4) Metabolic acidosis: Plan: Sodium bicarb @ 150ml/hr for 3 bags. then will transition to LR. (5) Diabetes mellitus type 2, uncontrolled: Plan: Hemoglobin A1C 7.0 in February, repeat with AM labs Hold outpatient insulin - usually requires much less than his outpatient dosing in hospital Start Lantus 15 units BID Novolog: --Goal BSG Range: Low 110 mg/dL, High 140 mg/dL --Correction Factor: 15 mg/dL/unit --Carbohydrate ratio = 6 g/unit --BSGs ACHS if eating, q6h if npo (6) ANIBAL (obstructive sleep apnea): Plan: BiPAP HS and while napping (7) Elevated INR: Plan: Suspect from warfarin in setting of renal failure Vitamin K 5mg IV given in the ER (8) History of DVT (deep vein thrombosis): Plan: Reason for warfarin use Plan VTE Prophylaxis - elevated INR on admission Diet - Low potassium, T2DM Disposition - admit to PCU Admission and Anticipated Discharge Date Admission Date: July 23, 2023 Subjective 53 yo male reports thathe continues to have nausea, but it appears slightly improved. He states the reglan yesterday may have helped. Review of Systems Review of Systems: All systems reviewed & are unremarkable except as noted in HPI & below Physical Exam Constitutional: WD/WN, vitals as above Eyes: PERRL, conjunctivae normal, anicteric sclerae ENMT: Mouth: + dry oral mucous membranes Respiratory: normal respiratory effort, lungs clear to auscultation Cardiovascular: Rate/Rhythm: regular rate and regular rhythm Heart Sounds: no murmur Extremities: normal capillary refill; no calf tenderness Gastrointestinal (Abdomen): Inspection/Auscultation: abdomen normal to inspection; abdomen not distended Percussion/Palpation: abdomen soft; no guarding and abdomen not rigid Neurologic: awake; + does not move all extremities (chronic paraplegia) and not confused Psychiatric: A+Ox3, euthymic affect Genitourinary: no CVA tenderness Results & Data Results & Data Vital Signs (Past 12 Hours) Vital Signs Temp Pulse Resp BP Pulse Ox O2 Del Method 07/26/23 19:11 36.8 C 86 17 151/83 H 93 Room Air 07/26/23 15:47 36.8 C 89 16 125/81 92 Room Air 07/26/23 11:30 36.7 C 99 H 18 126/77 91 Room Air PG Care Time/CCT Total # of Minutes Spent Total Time Spent with Patient: Total time spent is greater than 50% in coordination of care (as documented) at patient's floor/unit and/or counseling patient: Coding Level of Care Code 96251 SUB INP/OBS CARE 2/35MIN Diagnoses Acute kidney injury superimposed on chronic kidney disease N17.9; N18.9 Hyperkalemia E87.5 Catheter-associated urinary tract infection T83.511A; N39.0 Metabolic acidosis E87.20 Diabetes mellitus type 2, uncontrolled ANIBAL (obstructive sleep apnea) G47.33 Elevated INR R79.1 History of DVT (deep vein thrombosis) Z86.718
[2023-07-27 07:59] LABS: Hematocrit (blood only) 31.4 % (42.0-52.0); Hemoglobin 10.2 g/dl (14.0-18.0); Mean Corpuscular Hemoglobin 31.1 pg (25.0-34.0); Mean Corpuscular Hgb Conc 32.5 g/dL (32.0-36.0); Mean Corpuscular Volume 95.7 fL (80.0-100.0); Platelet Count 154 K/uL (130-400); RDW Coefficient of Variation 13.8 % (11.5-14.5); RDW Standard Deviation 49.1 fL (36.4-46.3); Red Blood Count 3.28 M/uL (4.70-6.10); White Blood Count 9.19 K/ul (4.8-10.8)
[2023-07-27 08:21] LABS: Albumin Level 3.1 gm/dl (3.4-5.0); BUN Creatinine Ratio 23.2 (10-20); Calcium 8.9 mg/dl (8.6-10.3); Creatinine Clr Calc Pharmacy 80.4 ml/min; Est GFR (African American) 68.1 ml/min; Est GFR (Non-African American) 58.8 ml/min; Phosphorus 2.3 mg/dl (2.5-4.9); Potassium 4.2 mmol/L (3.5-5.1)
[2023-07-27] MEDS: VALSARTAN 80 MG TAB PO SCH (08:25)
[2023-07-27] MEDS: CHOLECALCIFEROL 5,000 UNITS 125 MCG TAB PO SCH (08:25)
[2023-07-27] MEDS: OXYBUTYNIN CHLORIDE XL 5 MG TABCR PO SCH (08:25)
[2023-07-27] MEDS: oxyCODONE HCL IR 5 MG TAB (IMMEDIATE RELEASE) PO SCH ×2 (08:25→14:37)
[2023-07-27] MEDS: FAMOTIDINE 40 MG TABLET PO SCH (08:25)
[2023-07-27] MEDS: carvediloL 6.25 MG TAB PO SCH (08:25)
[2023-07-27] MEDS: allopurinoL 300 MG TAB PO SCH (08:25)
[2023-07-27] MEDS: GABAPENTIN 300 MG CAP PO SCH (08:25)
[2023-07-27 08:27] LABS: INR 2.1 (0.9-1.1); Prothrombin Time 21.8 Seconds (9.0-12.0)
[2023-07-27] MEDS: LANTUS PER UNIT CHARGE SQ SCH (08:28)
[2023-07-27 08:40] LABS: Ferritin 190.4 ng/ml (8-388)
[2023-07-27] MEDS: INSULIN ASPART PER UNIT CHARGE SC SCH ×3 (08:56→17:44)
[2023-07-27] MEDS: ERTAPENEM SODIUM 1,000 MG in SYRINGE 0 ML IV SCH (12:35)
--- NOTE | 2023-07-27 13:05 | Nephrology Progress Note ---
Date of Service July 27, 2023 Assessment & Plan (1) Acute kidney injury superimposed on chronic kidney disease: (2) Hyperkalemia: (3) Metabolic acidosis: (4) Diabetes mellitus type 2, uncontrolled: Plan 53 y o M with complex PMH, stage 3A CKD, DM, paraplegia, morbid obesity admitted with generalized weakness, concern for decreased UO, JUAREZ, hyperkalemia and metabolic acidosis. JUAREZ could be secondary to prerenal etiology, renal imaging was otherwise unremarkable for any postrenal obstruction. Renal function continues to improve, creatinine down to 1.4 mg/dl, potassium normalized and bicarb improved. --resume Valsartan, follow low K diet --Monitor intake output, renal function and electrolytes daily while inpatient --high risk for CKD progression with repeated episodes of JUAREZ and multiple risk factors Will sign off, outpt f/u with [facility] Admission and Anticipated Discharge Date Admission Date: July 23, 2023 Jefferson Garrido was seen and evaluated this morning. He has been feeling well, denies any specific symptoms. Renal function continues to improve, creatinine down to 1.4 mg/dl, electrolyte abnormality corrected. Blood pressure fair. Decent urine output. Review of Systems Review of Systems: Detail ROS was unremarkable. Physical Exam Constitutional: WD/WN, vitals as above + morbidly obese; no acute distress Eyes: + anicteric sclerae Respiratory: no respiratory distress Auscultation: + diminished lung sounds; no crackles and no wheezes Cardiovascular: Rate/Rhythm: regular rate and regular rhythm Heart Sounds: normal S1 and normal S2 Extremities: + edema Skin: no rashes, warm and dry Psychiatric: Orientation: alert and oriented x 3 Affect: euthymic affect Results & Data Vital Signs (Past 12 Hours) Vital Signs Temp Pulse Pulse Pulse Resp BP BP 07/27/23 12:29 36.9 C 94 H 18 175/102 H 170/102 H 07/27/23 08:15 36.3 C L 88 18 150/90 H 07/27/23 08:00 07/27/23 08:00 89 07/27/23 03:00 36.6 C 86 17 133/62 Pulse Ox O2 Del Method 07/27/23 12:29 92 Room Air 07/27/23 08:15 95 Room Air 07/27/23 08:00 Room Air 07/27/23 08:00 07/27/23 03:00 91 Room Air PG Care Time/CCT Total # of Minutes Spent Total Time Spent with Patient: Total time spent is greater than 50% in coordination of care (as documented) at patient's floor/unit and/or counseling patient: Coding Level of Care Code 56031 SUB INP/OBS CARE 2/35MIN Diagnoses Acute kidney injury superimposed on chronic kidney disease N17.9; N18.9 Hyperkalemia E87.5 Metabolic acidosis E87.20 Diabetes mellitus type 2, uncontrolled
--- NOTE | 2023-07-27 13:59 | CT Scan Report ---
CT OF THE ABDOMEN AND PELVIS WITHOUT CONTRAST CLINICAL HISTORY: Renal collecting system gas. COMPARISON STUDY: CT of the abdomen and pelvis July 23, 2023. TECHNIQUE: Axial images of the abdomen and pelvis were obtained without IV contrast. Images were revi ewed in the axial, sagittal, and coronal planes. Automated exposure control was utilized for the inez dy. A dose lowering technique was utilized adhering to the principles of ALARA. FINDINGS: Left lower lobe airspace opacity has progressed. Additional alveolar opacities within the l ower lobes have increased since CT of July 23, 2023. Evaluation of the abdomen and pelvis is subop timal on this unenhanced exam. No pneumatosis, free air or portal venous gas is present. There are mu ltiple gallstones within the gallbladder. There is mild stranding adjacent to the gallbladder however the gallbladder is not distended. The findings do not strongly suggest acute cholecystitis. Mild spl enomegaly is noted. Unenhanced images of the liver, adrenal glands and pancreas are unremarkable. The re is no evidence for a bowel obstruction status post subtotal colectomy with right lower quadrant il eostomy. Parastomal hernia is again noted. Postoperative appearance is unchanged. Suprapubic catheter is in place. There is no hydronephrosis. Several small bilateral renal calculi measure up to 3 mm. T here are no ureteral calculi. Left perinephric stranding is unchanged. Suspected chronic subcapsular hematoma along the lower pole of the left kidney remains unchanged. There is a possible left renal hy perdense cyst. This is unchanged. Minimal gas within the right collecting system has decreased since CT of July 23, 2023. Catheter within the right ureter has resolved. Bladder wall thickening remain s unchanged. No new fluid collections are present. Chronic deformity segment coccyx is again noted. T here is extensive vascular calcification. IMPRESSION: 1. Minimal gas within the right collecting system which has decreased since prior CT. Resolution of r ight ureteral gas. This gas could be due to the suprapubic catheter. An underlying infectious process could appear similar however the amount of gas has decreased. 2. Small bilateral renal calculi. No ureteral calculi. No hydronephrosis. 3. No change in left perinephric stranding. Suspected chronic subcapsular hematoma along the lower po le the left kidney which is unchanged. 4. Increase in lower lung airspace opacities which favor pneumonia or aspiration pneumonitis. ACT 112: Negative or not required by law. Electronically signed by: Jaime Arias M.D. 07/27/2023 1:57 PM
--- NOTE | 2023-07-27 14:46 | Discharge Summary ---
Date of Service July 27, 2023 Admission HPI Per Admitting Provider Hema Grajeda is a 53 year old male with 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 Reports generalized fatigue getting worse for the last 2 weeks but especially worse the last 2 days. He denies any respiratory or gastrointestinal symptoms. No change to his colostomy output. No abdominal pain or CVA tenderness. No recent changes to his medications. Similar lab abnormalities in February when he presented with cellulitis and JUAREZ which improved without dialysis. Principal Diagnosis Acute on chronic kidney disease, hyperkalemia, metabolic encephalopathy, no ninfectious gas in right renal collecting system Discharge Exam General-alert and oriented x3, no fevers, no chills HEENT-head atraumatic and normocephalic, pupils equal and reactive to light, extraocular muscles intact Neck-no lymphadenopathy or thyromegaly, trachea midline Chest-clear to auscultation percussion. No rales wheezing or rhonchi Cardiac-regular rate and rhythm, normal S1 and S2, no murmurs Abdomen-normal bowel sounds, nontender, no hepatosplenomegaly. Suprapubic catheter in position with unremarkable appearance Extremities-no cyanosis, clubbing, or edema Neuro-cranial nerves II through XII intact, motor and sensory function within normal limits, strength symmetrical with paraplegia Psych-normal affect, normal mood Discharge Data Allergies Allergy/AdvReac Type Severity Reaction Status Date / Time ciprofloxacin Allergy Unknown "Levels Unverified 07/23/23 17:07 were up" gluten Allergy Verified 07/23/23 17:07 sulfamethoxazole AdvReac Unknown "Levels Verified 07/23/23 17:07 [From Bactrim] were up"-per [facility] trimethoprim [From Bactrim] AdvReac Unknown "Levels Verified 07/23/23 17:07 were up"-per [facility] Consultations 07/23/23 17:38 ED Decision to Admit Stat 07/24/23 08:36 Consult Nephrology Routine 07/27/23 08:55 Consult Urology Routine Ordered Studies 07/23/23 14:57 CT abd pelvis wo con Stat 07/23/23 15:01 CT head/brain wo con Stat 07/27/23 12:33 CT Abdomen and Pelvis [CT abd pelvis wo con] Urgent Hospital Course (1) Acute kidney injury superimposed on chronic kidney disease: Present on admission. Now back to baseline. Will avoid LANEY inhibitor and ARB therapy in the future. Urine culture negative. Repeat abdominal pelvic CT scan reveals marked improvement in right renal collection system gas which does not appear to be infectious. Appreciate urology consultation and recommendations. (2) Hyperkalemia: Corrected. Would discontinue valsartan and indefinitely. (3) Catheter-associated urinary tract infection: Urine culture fortunately is negative. Suprapubic catheter was recently changed as an outpatient. Appreciate urology consultation and recommendations. (4) Metabolic acidosis: Present on admission. Now resolved (5) Diabetes mellitus type 2, uncontrolled: ADA diet. Sliding scale coverage. Continue basal insulin. (6) ANIBAL (obstructive sleep apnea): Stable. BiPAP HS and while napping (7) Elevated INR: Due to warfarin in setting of renal failure. Vitamin K 5mg IV given in the ER. Serial labs. Now corrected (8) History of DVT (deep vein thrombosis): Stable. Continue Coumadin therapy Plan Home todayJuly 27 Total Time Total Time Spent Total Time Spent (In Minutes): 45 minutes Discharge Plan Discharge Items Patient Disposition: Home - Self-Care Reason For Visit: HYPERKALEMIA, JUAREZ Discharge Diagnosis: Acute on chronic kidney disease, hyperkalemia, acute metabolic encephalopathy, noninfectious gas in right renal collecting system Activity: Resume your previous activity Non-emergency contact: Primary Care Provider Call non-emergency contact if: you have any medication questions and your symptoms worsen Follow-up/Referrals: Demarcus Nicholson DO [Primary Care Provider] - Diet: Carb Consistent or DM2 Addtl Attending Provider Instructions: Stop valsartan and since it caused hyperkalemia. All other medications remain the same Pending Studies at Discharge: No Stand-Alone Forms: My [employer], Smoking Cessation Medications and DC Order Prescriptions: Continued allopurinol 300 mg tablet 300 mg PO QAM carvedilol 6.25 mg tablet 6.25 mg PO BID Qty: 60 6RF Rx Instructions: must administer with a meal/food famotidine [Pepcid] 40 mg tablet 40 mg PO QAM insulin aspart U-100 [Novolog FlexPen U-100 Insulin] 100 unit/mL Insulin Pen 0 sliding scale dose SUBCUT TIDM clotrimazole-betamethasone 1-0.05 % cream 1 applic TOPICAL BID PRN (Reason: affected area) warfarin 2.5 mg tablet See Rx Instructions .ROUTE .COMPLEX Rx Instructions: Take 2.5mg by mouth on Monday and Monday. Take 5mg all other days. cholecalciferol (vitamin D3) [Vitamin D3] 125 mcg (5,000 unit) Tablet 125 mcg PO QAM gabapentin 300 mg capsule 300 mg PO BID triamcinolone acetonide 0.1 % cream 1 applic TOPICAL UD Trulicity 1.5 mg/0.5 mL pen injector 1.5 mg SUBCUT WK Rx Instructions: Fridays Levemir FlexPen 100 unit/mL (3 mL) insulin pen 60 unit SUBCUT BID oxycodone 30 mg tablet 30 mg PO TID solifenacin 10 mg tablet 10 mg PO QAM Discontinued valsartan 40 mg tablet 40 mg PO QPM Discharge Orders: Discharge Order (Routine); Ordered 07/27/23 Ordered By: Jose Elias Flynn/Other Patient Handouts: Managing Type 2 Diabetes Admission Data Admit Date/Time: 07/23/23 17:55 Attending Provider: Jose Elias Hightower Admit Provider: Sanjiv Sykes Primary Care Provider: Demarcus Nicholson Other Providers: Sanjiv Sykes; Juan Enamorado; Lisa Belcher Kevin C.; Teressa Ness; Judd Alonso; Gurvinder Jackson; Jeronimo Cadet; Arielle Carey; Juan Mejia; Xiomara Schroeder Melissa A.; Demarcus Grover; Alicia Ferguson; Jesse Fan; Bernardo Richardson Coding Level of Care Code 54104 INP/OBS DISCH >30 MIN Diagnoses Acute kidney injury superimposed on chronic kidney disease N17.9; N18.9 Hyperkalemia E87.5 Catheter-associated urinary tract infection T83.511A; N39.0 Metabolic acidosis E87.20 Diabetes mellitus type 2, uncontrolled ANIBAL (obstructive sleep apnea) G47.33 Elevated INR R79.1 History of DVT (deep vein thrombosis) Z86.718
--- NOTE | 2023-07-27 17:11 | Urology Consultation ---
Date of Consultation July 27, 2023 Assessment & Plan (1) Suprapubic catheter: Suprapubic catheter is draining well. Reasonable to have this exchanged by his outside urologist on the routine schedule. As much as possible, try to keep catheter from pressing on the skin directly at the insertion site as this seems to be causing some erosion/compression necrosis. (2) Emphysematous pyelitis: Gas in kidney from CT scan on 07/23/2023 raised concern for possible infection, however over the subsequent days he had fairly significant improvement with no fevers and no white count. Repeat CT scan demonstrated much less gas in the kidney. Although this may be related to instrumentation/suprapubic catheter, would recommend maintaining a high index of suspicion for gas-forming infection. If he develops worsening infectious symptoms, this would best be addressed with percutaneous nephrostomy tube. Would be reasonable to continue treatment with antibiotics for now and narrow if any culture data becomes available. History of Present Illness Reason for Consultation: Suprapubic catheter Attending Physician: Jose Elias Hightower MD History of Present Illness This is a 53-year-old male with urologic history including nephrolithiasis, neurogenic bladder, prior scrotal abscess. He recently had a suprapubic catheter placed at an outside facility and has been having this exchanged by them. He was admitted to [facility] on 07/23/2023 with JUAREZ on CKD, suspected catheter associated UTI. He was treated with broad-spectrum antibiotics as well as supportive care. Urology was consulted on 07/27/2023 for possible exchange of his suprapubic catheter. He reports the catheter was last exchanged approximately 2 weeks prior. He has been having some leakage around the catheter but denies any significant bladder pain or spasms. Additionally, he denies any flank pain. He has not been having any fevers or chills. Labs reviewed: 07/27/2023: WBC 9.19, creatinine 1.38, glucose 98 07/23/2023: Urine culture with 3 types of organisms, all hide counts, no further identification is sent. Blood cultures from 07/23 negative. He had a CT scan performed on 07/23/2023. I independently reviewed these images. Both kidneys are in normal position. There is a small nonobstructing stone in the right kidney. He has a significant amount of gas within the right collecting system in the right ureter. Bladder wall appears somewhat thickened although the bladder is decompressed with a suprapubic tube in good position. There is a hyperdense area on the left kidney, thought to be a subcapsular fluid collection. Repeat CT scan was performed on 07/27/2023. This was notable for a decreased amount of gas within the right kidney and no gas remaining in the right ureter. Bladder remains well decompressed and suprapubic catheter remains in place. Allergies Allergy/AdvReac Type Severity Reaction Status Date / Time ciprofloxacin Allergy Unknown "Levels Unverified 07/23/23 17:07 were up" gluten Allergy Verified 07/23/23 17:07 sulfamethoxazole AdvReac Unknown "Levels Verified 07/23/23 17:07 [From Bactrim] were up"-per [facility] trimethoprim [From Bactrim] AdvReac Unknown "Levels Verified 07/23/23 17:07 were up[facility] Medications Medication Instructions Recorded Confirmed Type insulin aspart U-100 100 unit/mL 0 sliding scale dose subcut TIDM 10/08/18 07/23/23 History (3 mL) subcutaneous pen (Novolog per sliding scale FlexPen U-100 Insulin aspart) famotidine 40 mg tablet (Pepcid) 40 mg PO QAM 05/27/19 07/23/23 History allopurinol 300 mg tablet 300 mg PO QAM 01/23/20 07/23/23 History carvedilol 6.25 mg tablet 6.25 mg PO BID #60 tabs 09/30/21 07/23/23 Rx clotrimazole-betamethasone 1 1 applic topical BID PRN affected 02/24/22 07/23/23 History %-0.05 % topical cream area cholecalciferol (vitamin D3) 125 125 mcg PO QAM 09/24/22 07/23/23 History mcg (5,000 unit) tablet (Vitamin D3) gabapentin 300 mg capsule 300 mg PO BID 09/24/22 07/23/23 History warfarin 2.5 mg tablet See Rx Instructions .Route .COMPLEX 09/24/22 07/23/23 History dulaglutide 1.5 mg/0.5 mL 1.5 mg subcut WK 03/09/23 07/23/23 History subcutaneous pen injector (Trulicity) insulin detemir U-100 100 unit/mL 60 unit subcut BID 03/09/23 07/23/23 History (3 mL) subcutaneous pen (Levemir FlexPen) oxycodone 30 mg tablet 30 mg PO TID 03/09/23 07/23/23 History triamcinolone acetonide 0.1 % 1 applic topical UD 03/09/23 07/23/23 History topical cream solifenacin 10 mg tablet 10 mg PO QAM 07/23/23 07/23/23 History Patient History Medical History History of GI bleed Hx of pulmonary embolus Chronic indwelling Velazquez catheter Celiac disease Difficult airway for intubation 01/18/22 Patient unable to be intubated with Glidescope 4 - good view but unable to pass ETT, Igel #5 easily placed and worked well History of COVID-19 05/2021- no symptoms- no hospitalization History of blood transfusion 2018 in setting of GI bleed GI bleed 2018 requiring 3 blood transfusions, transferred to [facility] with work-up not revealing clear cause per records Coronary artery disease CABG x 1 2012-VG to [facility], multiple stents, follows with [place] [facility] History of endocarditis TREATED AT [facility]-2012 Chronic kidney disease, stage 3a follows with [facility] Hyperlipidemia Morbid obesity Sleep apnea, organic NO DEVICE AT THIS TIME, HIS MACHINE WAS INVOLVED IN RECALL History of CVA (cerebrovascular accident) 2012-admitted [facility] Hirschsprung's disease Pulmonary hypertension Diastolic congestive heart failure EF 55-59% History of intravenous drug abuse Paraplegia Gout Hepatitis C TREATED DM type 2 (diabetes mellitus, type 2) IDDM Pulmonary emboli 05/2010-unknown cause- admitted and treated at [facility] Surgical History H/O cervical spine surgery for severe stenosis w/ myelopathy; 05/2022 - [facility] S/P ureteral stent placement 08/2022 - [facility] S/P ileostomy S/P brain surgery 2013- [facility] H/O aortic root repair 05[facility]2016- [facility] H/O mitral valve repair UNSURE-[facility]ITHER [facility] OR [facility] S/P colostomy FOLLOWS W/ [facility] S/P cardiac cath Hx of CABG 2012 [facility]- DUE TO ENDOCARDITIS, single vessel per records Family History Father Cardiac disorder Hypertension Prostate cancer Diabetes Coronary heart disease COPD (chronic obstructive pulmonary disease) Pacemaker Mother Hypertension Skin cancer Dementia Social History Smoking Status: Unknown if ever smoked Tobacco Type: E-cigarettes / Vaping Second Hand Exposure: No; Do You Dip or Chew Tobacco: No; Hx Alcohol Use: No Hx Substance Use: Yes Last Used Substance: Unknown Preferred Language: Montenegrin Communication Ability: Effective Communication Ability Comment: GARBLED SPEECH Electronic Scale Tester Required: No Beliefs That Will Affect Care: None marital status: Single Current Living Situation: Family Current Living Situation Comment: Lives with parents and has caregivers to come and help with ADLs current occupational status: employed 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 Physical Exam Constitutional: well developed and well nourished; no acute distress Eyes: + anicteric sclerae; pupils not irregula r Respiratory: normal respiratory effort; no respiratory distress, does not use accessory muscles and no cough Cardiovascular: well perfused Gastrointestinal (Abdomen): Inspection/Auscultation: abdomen not distended Some erosion on the left side of suprapubic tract, likely compression from the tube itself. Musculoskeletal: Extremities: extremities normal to inspection Skin: normal turgor; no rashes and no lesions Neurologic: moves all extremities and awake Psychiatric: Orientation: alert and oriented x 3 Results & Data Vital Signs (Past 12 Hours) Vital Signs Temp Pulse Pulse Pulse Resp BP BP 07/27/23 16:02 36.8 C 91 H 18 161/96 H 07/27/23 15:18 36.9 C 94 H 18 175/102 H 170/102 H 07/27/23 12:29 36.9 C 94 H 18 175/102 H 170/102 H 07/27/23 08:15 36.3 C L 88 18 150/90 H 07/27/23 08:00 07/27/23 08:00 89 Pulse Ox O2 Del Method 07/27/23 16:02 97 Room Air 07/27/23 15:18 92 07/27/23 12:29 92 Room Air 07/27/23 08:15 95 Room Air 07/27/23 08:00 Room Air 07/27/23 08:00 PG Care Time/CCT Total # of Minutes Spent Total Time Spent with Patient: Total time spent is greater than 50% in coordination of care (as documented) at patient's floor/unit and/or counseling patient: Coding Level of Care Code 31171 IN/OBS CONSULT LVL 4,60M Diagnoses Suprapubic catheter Z93.59 Emphysematous pyelitis N12
== END 2023-07-27 17:44 | disposition home health service (06) | DRG 682 ==
LOC: ED 14:02 → SUATTDRO 17:55 → EDINP 17:55 → 2S 07-24 18:41